=== PATIENT | female | born 2000 | race Caucasian/White ===

== ENCOUNTER 2022-04-29 11:25 | Emergency (ER) | payer OTHER, SELFPAY | END 2022-04-29 13:12 | disposition left against medical advice (07) | PROVIDERS: Emergency Provider Emergency Medicine; PCP Internal Medicine | DX: R10.9 Unspecified abdominal pain (principal) ==

== ENCOUNTER 2022-07-29 14:32 | Emergency (ER) | payer OTHER, SELFPAY ==
--- NOTE | ~2022-07-29 | XR_ITS ---
EXAMINATION: XR CHEST CLINICAL INFORMATION: Chest pain. COMPARISON: None TECHNIQUE: Frontal view of the chest was obtained. FINDINGS: No significant abnormality is noted involving the heart, lungs, mediastinum, bony thorax or soft tissues. XR/XR chest 1V IMPRESSION: No acute cardiopulmonary process.
--- NOTE | 2022-07-29 16:02 | ECG_ITS ---
Test Reason : chest pain Blood Pressure : / mmHG Vent. Rate : 122 BPM Atrial Rate : 122 BPM P-R Int : 166 ms QRS Dur : 080 ms QT Int : 290 ms P-R-T Axes : 043 061 -34 degrees QTc Int : [address] & T wave abnormality, consider inferolateral ischemia Abnormal ECG No previous ECGs available Referred By: Alesha Rodriguez Electronically Signed By:LEN EDWARDS
[2022-07-29 16:03] VITALS: BP 130/79; PULSE 114; RESP 16; TEMP 36.4; O2SAT 99; BMI 32.5
--- NOTE | 2022-07-29 16:03 | ED_ITS ---
HPI - General Adult General Chief complaint: Chest Pain <LAMINE Degroot - Last Filed: 07/29/22 16:08> Stated complaint: CP <LAMINE Degroot - Last Filed: 07/29/22 16:08> Time Seen by Provider: 07/29/22 20:52 <LAMINE Degroot - Last Filed: 07/29/22 16:08> Source: patient <Lavon Rubi MD - Last Filed: 07/30/22 00:48> Mode of arrival: ambulatory <Lavon Rubi MD - Last Filed: 07/30/22 00:48> Limitations: no limitations <Lavon Rubi MD - Last Filed: 07/30/22 00:48> History of Present Illness HPI narrative: Patient been vomiting for last few days with the midchest pain with mild cough pain started after vomiting mostly localized mid chest no abdominal pain no fever or chills urinary complaints on arrival patient noticed to be tachycardic with heart rate 110-120 no syncope dizziness <Lavon Rubi MD - Last Filed: 07/30/22 00:48> Related Data Home medications: Home Medications Medication Instructions Recorded Confirmed aripiprazole 10 mg tablet 10 mg PO DAILY 06/28/21 Previous Rx's Medication Instructions Recorded desogestrel 0.15 mg-ethinyl 1 tab PO DAILY #84 tabs 06/04/22 estradiol 0.03 mg tablet (Apri) famotidine 20 mg tablet (Pepcid) 20 mg PO DAILY #14 tabs 07/29/22 metoprolol tartrate 25 mg tablet 12.5 mg PO BID #30 tabs 07/29/22 ondansetron 4 mg disintegrating 4 mg PO Q6-8H PRN nausea and 07/29/22 tablet vomiting #7 tabs <LAMINE Degroot - Last Filed: 07/29/22 16:08> Allergies/adverse reactions: Allergies Allergy/AdvReac Type Severity Reaction Status Date / Time No Known Allergies Allergy Verified 06/28/21 10:26 <LAMINE Degroot - Last Filed: 07/29/22 16:08> Review of Systems Review of Systems: Yes all other systems are reviewed and are negative <Lavon Rubi MD - Last Filed: 07/30/22 00:48> [facility] Past Medical History Medical History: Medical History Left ovarian cyst Major depression in partial remission Migraine Supraventricular tachycardia by ECG <LAMINE Degroot - Last Filed: 07/29/22 16:08> Surgical History: Surgical History H/O removal of cyst <LAMINE Degroot - Last Filed: 07/29/22 16:08> Family History Family History: Family History Mother Bipolar disorder <LAMINE Degroot - Last Filed: 07/29/22 16:08> Social History Social History: Social History Household Members: Family Household Members Other:: mother and MGF Housing: House Patient Tobacco Use Status: Never used Tobacco e-Cigarette/Vaping Use: Never Used Advance Directives: No Advance Directives Information Provided: No service: No Current occupational status: unemployed <LAMINE Degroot - Last Filed: 07/29/22 16:08> Physical Exam ED Vital Signs: Vital Signs - 24 hr 07/29/22 16:03 07/29/22 21:28 07/29/22 23:16 Temperature 97.5 F Pulse Rate 114 H 110 H 99 Respiratory Rate 16 18 Blood Pressure 130/79 120/85 112/62 Pulse Oximetry 99 99 Oxygen Delivery Method Room Air Room Air 07/29/22 23:16 07/29/22 23:16 07/30/22 00:11 Temperature Pulse Rate 99 105 H 96 Respiratory Rate 18 Blood Pressure 119/67 131/79 108/71 Pulse Oximetry 97 Oxygen Delivery Method Room Air BMI result Body Mass Index 32.5 <LAMINE Degroot - Last Filed: 07/29/22 16:08> Vital Signs - 24 hr 07/29/22 16:03 07/29/22 21:28 07/29/22 23:16 Temperature 97.5 F Pulse Rate 114 H 110 H 99 Respiratory Rate 16 18 Blood Pressure 130/79 120/85 112/62 Pulse Oximetry 99 99 Oxygen Delivery Method Room Air Room Air 07/29/22 23:16 07/29/22 23:16 07/30/22 00:11 Temperature Pulse Rate 99 105 H 96 Respiratory Rate 18 Blood Pressure 119/67 131/79 108/71 Pulse Oximetry 97 Oxygen Delivery Method Room Air BMI result Body Mass Index 32.5 <Lavon Rubi MD - Last Filed: 07/30/22 00:48> Appearance: Alert. Oriented X3. No acute distress. Eyes: PERRLA, No Nystagmus ENT: Pharynx normal. Oral Mucosa moist Neck: Normal inspection. Neck supple. CVS: Normal heart rate and rhythm. Pulses normal. Respiratory: No respiratory distress. Equal air entry bilateral, no wheezing/rales/rhonchi Abdomen: Soft, mild epigastric tenderness. Bowel sounds are present, no mass palpable, no CVA tenderness Skin: Skin warm and dry. Normal skin color. Normal skin turgor. Extremities: No lower extremity edema. No calf tenderness Neuro: Oriented X 3. No motor deficit. <Lavon Rubi MD - Last Filed: 07/30/22 00:48> Course Course Course Narrative: RME - 21 y/o female with history of SVT presenting with sudden onset of left sided chest pain while she was sitting on the cough a few days ago. It has been constant since. She has palpitations. She vomited a few times and has had a mild cough as well. She feels like she had a heart attack a few days ago. Was going to come here but the waiting room was packed that day. Denies cardiac risk factors. Denies anxiety or substance use. EKG and labs ordered. <LAMINE Degroot - Last Filed: 07/29/22 16:08> Medications Administered Discontinued Medications Generic Name Dose Route Start Last Admin Trade Name Freq PRN Reason Stop Dose Admin Al Hydroxide/Mg Hydroxide 30 ml 07/29/22 21:18 07/29/22 21:31 Magnesium Hydrox/Alum Hydrox 30 Ml Oral.Susp PO 07/29/22 21:19 30 ml ONCE ONE Administration Famotidine 20 mg 07/29/22 23:26 07/29/22 23:38 Famotidine/Pf 20 Mg/2 Ml Vial IVPUSH 07/29/22 23:27 Not Given ONCE ONE Sodium Chloride 1,000 mls @ 999 mls/hr 07/29/22 21:37 07/29/22 23:38 Ns IV 07/29/22 22:37 Infused .Q1H1M ONE Infusion Metoprolol Tartrate 5 mg 07/29/22 23:48 07/29/22 23:58 Metoprolol Tartrate 5 Mg/5 Ml Vial IVPUSH 07/29/22 23:49 5 mg ONCE ONE Administration Ondansetron HCl 4 mg 07/29/22 21:18 07/29/22 21:30 Ondansetron Odt 4 Mg Tab.Rapdis TRANSLINGU 07/29/22 21:19 4 mg ONCE ONE Administration <LAMINE Degroot - Last Filed: 07/29/22 16:08> Medications Administered Discontinued Medications Generic Name Dose Route Start Last Admin Trade Name Freq PRN Reason Stop Dose Admin Al Hydroxide/Mg Hydroxide 30 ml 07/29/22 21:18 07/29/22 21:31 Magnesium Hydrox/Alum Hydrox 30 Ml Oral.Susp PO 07/29/22 21:19 30 ml ONCE ONE Administration Famotidine 20 mg 07/29/22 23:26 07/29/22 23:38 Famotidine/Pf 20 Mg/2 Ml Vial IVPUSH 07/29/22 23:27 Not Given ONCE ONE Sodium Chloride 1,000 mls @ 999 mls/hr 07/29/22 21:37 07/29/22 23:38 Ns IV 07/29/22 22:37 Infused .Q1H1M ONE Infusion Metoprolol Tartrate 5 mg 07/29/22 23:48 07/29/22 23:58 Metoprolol Tartrate 5 Mg/5 Ml Vial IVPUSH 07/29/22 23:49 5 mg ONCE ONE Administration Ondansetron HCl 4 mg 07/29/22 21:18 07/29/22 21:30 Ondansetron Odt 4 Mg Tab.Rapdis TRANSLINGU 07/29/22 21:19 4 mg ONCE ONE Administration <Lavon Rubi MD - Last Filed: 07/30/22 00:48> Discharge Plan Discharge Clinical Impression: Gastritis, acute, Vomiting, POTS (postural orthostatic tachycardia syndrome) <LAMINE Degroot - Last Filed: 07/29/22 16:08> Patient Disposition: Home, Self-Care <LAMINE Degroot - Last Filed: 07/29/22 16:08> Instructions: Gastritis (ED), Acute Nausea and Vomiting (ED), Tachycardia (ED) <LAMINE Degroot - Last Filed: 07/29/22 16:08> Additional Instructions: Drink at least 3 L of fluid a day Have excess salt daily Start taking Lopressor 12.5 mg twice daily for heart rate control if it is higher than 110 Medication for gastritis and nausea as prescribed Follow with PCP and roller coaster operator for further evaluation for tachycardia <LAMINE Degroot - Last Filed: 07/29/22 16:08> Prescriptions: New ondansetron 4 mg tablet,disintegrating 4 mg PO Q6-8H PRN (Reason: nausea and vomiting) Qty: 7 0RF famotidine [Pepcid] 20 mg tablet 20 mg PO DAILY Qty: 14 0RF metoprolol tartrate 25 mg tablet 12.5 mg PO BID Qty: 30 0RF No Action desogestrel-ethinyl estradiol [Apri] 0.15-0.03 mg tablet 1 tab PO DAILY Qty: 84 0RF aripiprazole 10 mg tablet 10 mg PO DAILY <LAMINE Degroot - Last Filed: 07/29/22 16:08> Interventions: ED Discharge Assessment Last Done: 07/30/22 00:15 <LAMINE Degroot - Last Filed: 07/29/22 16:08> Discharge Date/Time: 07/30/22 00:24 <LAMINE Degroot - Last Filed: 07/29/22 16:08>
[2022-07-29 18:28] LABS: MANUAL DIFF FLAG NO
[2022-07-29 18:32] LABS: Basophils Percent Auto 0.3 % (0-2); Eosinophils Percent Auto 0.1 % (0-4); Hematocrit 37.5 % (37.0-47.0); Hemoglobin 12.3 g/dl (12.0-16.0); Imm Gran Abs Auto 0.01 X10*3/uL (0.00-0.03); Imm Gran Pct Auto 0.1 % (0.0-0.4); Lymphocytes Absolute Auto 2.2 X10*3/uL (1.2-4.9); Lymphocytes Percent Auto 25.1 % (20-40); Mean Corpuscular HGB Conc 32.8 g/dl (31.0-35.0); Mean Corpuscular Hemoglobin 26.6 pg (27.0-33.0); Mean Corpuscular Volume 81.2 fL (80.0-98.0); Monocytes Absolute Auto 0.7 X10*3/uL (0.1-1.2); Monocytes Percent Auto 7.4 % (2-11); Neutrophils Absolute Auto 5.8 x10*3/uL (2.0-8.3); Platelet Count 371 X10*3/uL (160-400); Red Blood Count 4.62 X10*6/uL (4.20-5.50); Red Cell Distribution Width 14.6 % (11.0-16.0); White Blood Count 8.7 X10*3/uL (4.8-10.8)
[2022-07-29 18:46] LABS: IDNOW Serial# 55D5AD1C; Influenza A Negative (Negative); Influenza B2 Negative (Negative)
[2022-07-29 18:47] LABS: COVID-19 Test Negative (Negative); IDNOW Serial# BCCEAD1C
[2022-07-29 18:48] LABS: Alanine Aminotransferase 10 U/L (0-31); Albumin Level 3.8 g/dL (3.5-5.0); Alkaline Phosphatase 75 U/L (39-117); Anion Gap 15 (12-20); Aspartate Amino Transferase 13 U/L (5-31); Bilirubin Direct < 0.2 mg/dL (0.0-0.5); Bilirubin Total 0.4 mg/dL (0.0-1.0); Blood Urea Nitrogen 9 mg/dL (9-16); Calcium 9.1 mg/dL (8.4-10.2); Carbon Dioxide 21 mmol/L (22-29); Chloride 105 mmol/L (96-108); Creatinine Clr Calc Pharmacy 115.9; Estimated Glomerular Filt Rate > 60; Glucose Random 95 mg/dL (60-115); Magnesium 1.9 mg/dL (1.6-2.6); Potassium 4.1 mmol/L (3.3-5.1); Sodium 137 mmol/L (135-145); Total Protein 6.7 g/dL (6.5-8.0)
[2022-07-29 19:20] LABS: Troponin-I High Sensitivity < 3.5 ng/L (<3.5-17.0)
[2022-07-29 21:28] VITALS: BP 120/85; PULSE 110; RESP 18; O2SAT 99
[2022-07-29] MEDS: Ondansetron ODT 4 MG TAB.RAPDIS TRANSLINGU (21:30)
[2022-07-29] MEDS: Magnesium Hydrox/Alum Hydrox 30 ML ORAL.SUSP PO (21:31)
[2022-07-29] MEDS: 0.9 % Sodium Chloride 1,000 ML 999 ML IV (22:16)
[2022-07-29 23:16] VITALS: BP 112/62; BP 119/67; BP 131/79; PULSE 105; PULSE 99
--- NOTE | 2022-07-29 23:43 | PC.NURSE ---
Patient tachycardic 140's ambulating MD aware 1l normal saline given. Patient seems to be 100-110's with minimal movement Dr. Doll aware.
[2022-07-29] MEDS: Metoprolol Tartrate 5 MG/5 ML VIAL IVPUSH (23:58)
[2022-07-30 00:11] VITALS: BP 108/71; PULSE 96; RESP 18; O2SAT 97
== END 2022-07-30 00:24 | disposition home or self-care (01) ==
PROVIDERS: Physician Assistant; Emergency Provider Internal Medicine; PCP Internal Medicine
DX: K29.70 Gastritis, unspecified, without bleeding (principal); G90.A Postural orthostatic tachycardia syndrome [POTS]; R07.89 Other chest pain; R05.9 Cough, unspecified; R11.10 Vomiting, unspecified; R00.0 Tachycardia, unspecified; Z20.822 Contact with and (suspected) exposure to COVID-19; Z79.899 Other long term (current) drug therapy
CPT/HCPCS: 36415; 71045; 80048; 80076; 83735; 84484; 85025; 87502; 87635; 93005; 96361; 96374; 99284; 99285

== ENCOUNTER 2022-08-01 10:11 | Outpatient (REF) | payer OTHER, SELFPAY ==
[2022-08-01 12:48] LABS: TSH reflex Free T4 0.97 uIU/mL (0.32-4.0); Vitamin D 25-OH Total 8.7 ng/mL (>30)
[2022-08-01 15:16] LABS: Folate 5.5 ng/mL (> or = 4.0); Vitamin B12 185 pg/mL (200-900)
== END 2022-08-01 10:12 | disposition home or self-care (01) ==
LOC: HO.HMGCLDS 10:11
PROVIDERS: PCP Internal Medicine; Visit Provider Internal Medicine
DX: I47.1 Supraventricular tachycardia (principal); I95.1 Orthostatic hypotension
CPT/HCPCS: 36415; 82306; 82607; 82746; 84443

== ENCOUNTER → 2022-09-26 10:03 | Outpatient (BNVA) | payer OTHER, SELFPAY | PROVIDERS: PCP Internal Medicine; Referring Provider Internal Medicine; Visit Provider Internal Medicine | DX: R00.0 Tachycardia, unspecified (principal); I95.1 Orthostatic hypotension | CPT/HCPCS: 99202 ==

== ENCOUNTER 2022-10-15 07:38 | Emergency (ER) | payer OTHER, SELFPAY ==
[2022-10-15 07:41] VITALS: BP 136/72; PULSE 115; RESP 16; TEMP 36.6; O2SAT 98; BMI 30.2
--- NOTE | 2022-10-15 08:50 | ED.GENADULT ---
HPI - General Adult General Chief complaint: Dizziness Stated complaint: nosebleed dizzy high bp Time Seen by Provider: 10/15/22 08:17 Source: patient and family Limitations: no limitations History of Present Illness HPI narrative: Patient with the baseline history of orthostatic hypotension with frequent daily chest pain, presents with an episode of epistaxis. It was self-limited. Mom was concerned because patient had high blood pressure. She has never been hypertensive before. Her systolic at 1 point was 196. No recent health status changes. She just returned from floor to after vacation however. No recent illness. No history of epistaxis prior to this. Related Data Home Medications Medication Instructions Recorded Confirmed aripiprazole 10 mg tablet 10 mg PO DAILY 06/28/21 09/26/22 vilazodone 20 mg tablet (Viibryd) 20 mg PO DAILY 08/01/22 09/26/22 aripiprazole 2 mg tablet 2 mg PO DAILY 09/26/22 09/26/22 Previous Rx's Medication Instructions Recorded desogestrel 0.15 mg-ethinyl 1 tab PO DAILY #84 tabs 06/04/22 estradiol 0.03 mg tablet (Apri) ondansetron 4 mg disintegrating 4 mg PO Q6-8H PRN nausea and 07/29/22 tablet vomiting #7 tabs Allergies Allergy/AdvReac Type Severity Reaction Status Date / Time metoprolol AdvReac Diarrhea Verified 09/26/22 10:26 Review of Systems Constitutional: Comments: No recent acute illness, but has a history of orthostatic hypotension ENT: Comments: Epistaxis as mentioned. Left-sided. Resolved with pressure Cardiovascular: Comments: No chest pain or palpitations at the moment Respiratory: Comments: No dyspnea Gastrointestinal: Comments: No nausea vomiting diarrhea PMFSH Past Medical History Medical History Epigastric abdominal pain Left ovarian cyst Major depression in partial remission Migraine Orthostatic hypotension Supraventricular tachycardia by ECG Surgical History H/O removal of cyst Family History Family History Mother Bipolar disorder Mental health disorder Social History Social History Household Members: Family Household Members Other:: mother and MGF Housing: House Patient Tobacco Use Status: Never used Tobacco e-Cigarette/Vaping Use: Never Used Advance Directives: No Advance Directives Information Provided: No service: No Current occupational status: unemployed Cognitive needs: No Hearing needs: No Vision needs: No Physical Exam ED Vital Signs: Vital Signs - 24 hr 10/15/22 07:41 Temperature 97.8 F Pulse Rate 115 H Respiratory Rate 16 Blood Pressure 136/72 Pulse Oximetry 98 Oxygen Delivery Method Room Air BMI result Body Mass Index 30.2 Const Other: Awake alert. No acute distress. Mildly anxious. Manual blood pressure checked by myself is 110/78. HENMT Other: Right ear normal. Left [place] with mild excoriation left medial septum, anterior aspect. No active bleeding. Resp Other: Clear and equal bilaterally Cardio Other: Mildly tachycardic without murmurs rubs or gallops GI Other: Soft nontender nondistended Skin Other: Warm pink and dry without rash Neuro Other: No focal weakness Medical Decision Making Medical Decision Making MDM Narrative: Patient with epistaxis in the setting of transient hypertensive episode. Patient states she was anxious secondary to epistaxis and likely back caused her hypertension is opposed to hypertension causing the epistaxis. Her blood pressure is back to its baseline at the moment. Given this, as well as imminent follow-up with Cardiology, no further intervention needed at the moment. Instructed for control of epistaxis should reoccur. Antibiotic ointment to left near twice daily for the next 5 days Discharge Plan Discharge Clinical Impression: Acute anterior epistaxis, Benign reactive hypertension Patient Disposition: Home, Self-Care Instructions: Nosebleed (ED) Additional Instructions: Follow-up with your flame burner as scheduled. Use antibiotic ointment to your left nostril twice daily for the next 5 days. Pinch her nose with direct pressure for minimum of 7 minutes if bleeding recurs. Return if unable to stop bleeding. Prescriptions: No Action desogestrel-ethinyl estradiol [Apri] 0.15-0.03 mg tablet 1 tab PO DAILY Qty: 84 0RF ondansetron 4 mg tablet,disintegrating 4 mg PO Q6-8H PRN (Reason: nausea and vomiting) Qty: 7 0RF aripiprazole 10 mg tablet 10 mg PO DAILY vilazodone [Viibryd] 20 mg tablet 20 mg PO DAILY aripiprazole 2 mg tablet 2 mg PO DAILY
== END 2022-10-15 09:14 | disposition home or self-care (01) ==
PROVIDERS: Emergency Provider Emergency Medicine; PCP Internal Medicine
DX: R04.0 Epistaxis (principal); I10 Essential (primary) hypertension; R00.0 Tachycardia, unspecified; Z79.899 Other long term (current) drug therapy
CPT/HCPCS: 99282; 99283

== ENCOUNTER → 2022-11-06 14:01 | Outpatient (REF) | payer OTHER, SELFPAY ==
--- NOTE | 2022-11-06 14:04 | CA_ITS ---
Transthoracic Echocardiogram Patient (Last, First, Middle): Preeti Adame, Gender: Female Date of : 2000 Age: 22 Procedure Date: 11/06/2022 Procedure Type: Transthoracic Echocardiogram Location: OP Height: 152.4 cm Weight: 72.58 kg BSA: 1.70 m2 Heart Rate: 95 bpm BP: 110 / 80 mmHg [employer] Reconnaissance Vehicle Crewman: OCTAVIO Montesinos MD: Denzel Persaud MD Administrative Operations Coordinator: Rahat Brown MD Symptoms: R00.0 - Tachycardia, unspecified Study Quality: Fair ECG Rhythm: Sinus Conclusions: - Essentially normal study Findings Left Ventricle Normal left ventricular size, thickness, and systolic function. The visually estimated ejection fraction is between 55-60%. Regional wall motion abnormalities can not be excluded due to suboptimal endocardial definition. Spectral Doppler is indicative of a normal filling pattern. Right Ventricle Normal right ventricular cavity size and systolic function. Atria Both atria are normal in size. There is no evidence of interatrial shunt. Aortic Valve The aortic valve structure and function is likely normal. There is no aortic valve stenosis. There is no aortic valve regurgitation. Mitral Valve Normal mitral valve structure and function. There is trace mitral valve regurgitation. There is no mitral valve stenosis. Pulmonic Valve The pulmonic valve is likely normal. Tricuspid Valve Normal tricuspid valve structure. There is trace tricuspid valve regurgitation. The right ventricular systolic pressure is normal. The right ventricular systolic pressure is 15 mmHg. Normal right atrial pressure. There is no evidence of pulmonary hypertension. Great Vessels All visible segments of the aorta are normal in size. The pulmonary artery was not well visualized. Venous The inferior vena cava is normal in size and collapses greater than 50% with inspiration. Pericardium/Pleural There is no evidence of pericardial effusion. Prior Study Comparison No prior study available for comparison. Recommendations, Care & Conclusions Recommend contrast in the future to improve endocardial definition. Measurements 2D Linear Measurements IVSd: 0.66 0.6-0.9/0.6-1.0 cm LVIDd: 4.24 3.9-5.3/4.2-5.9 cm LVIDd Index: 2.49 2.4-3.2/2.2-3.1 cm/m2 LVIDs: 2.37 2.0-3.6 cm LVPWd: 0.75 0.7-1.1 cm LA Diam: 2.60 2.7-3.8/3.0-4.0 cm LAIDs Index: 1.53 1.5-2.3 cm/m2 LV Mass: 108.00 67-162/88-224 g LV Mass Index: 63.53 43-95/49-115 g/m2 LVOT Diam: 1.90 3.0+(-)1.3 cm 2D Systolic Function EF 4C: 56.90 >55% EF 2C: 51.70 >55% EF BiP: 58.10 >55% Mitral Valve MV Pk E: 0.93 MV PK A: 0.80 MV Decel Time: 231.00 E/A: 1.20 E'Lateral: 18.80 E'Medial: 10.70 E/E' Med: 8.70 E/E' Lat: 4.90 PHT: 68.00 MVA PHT: 3.24 Decel [place]: 4.02 Aortic Valve AoV Pk Khang: 1.28 AoV Mn Khang: 0.93 AoV VTI: 0.23 AoV Pk Grad: 7.00 Aov Mn Grad: 4.00 JOHN Cont.VTI: 2.43 LVOT LVOT Pk Khang: 1.13 LVOT Mn Khang: 0.77 LVOT VTI: 0.20 LVOT Pk Grad: 5.00 LVOT Mn Grad: 3.00 LVOT Diam: 1.90 LVOT Area: 2.84 Diastolic Function MV Pk E: 0.93 MV Pk A: 0.80 E/A: 1.20 E'Medial: 10.70 E/E' Med: 8.70 E' Laterial: 18.80 E/E' Lat: 4.90 Right Ventricle TAPSE (mm): 18.20 TVS' Khang: 12.30 Tricuspid Valve TR Pk Khang: 1.73 TR Pk Grad: 12.00 RA Press: 3.00 RVSP: 15.00 Great Vessels Aorta Sinus of Valsalva: 2.80 2.0-3.5 cm Ao Asc: 2.50 2.1-3.4 cm Pulmonary Valve PV Pk Khang: 1.10 Peak PV Grad: 5.00 Updated in Other Vendor System with Status of Final Rahat Brown MD electronically signed on 11/07/2022 9:25:02 AM with status of Final
--- NOTE | 2022-11-06 14:04 | HM_ITS ---
Conclusion: 1. Patient was monitored for total period of 3 days 2. Baseline was normal sinus rhythm with average heart rate of 103 beats per minute 3. Frequent sinus tachycardia with 46.6% of time heart rate greater than 100 beats per minute 4. Rare PACs noted 5. No significant pauses noted 6. Patient marked 1 event that correlated with sinus tachycardia without reported symptoms MTDD
== END ==
LOC: HO.CARD 14:01
PROVIDERS: Visit Provider Internal Medicine
DX: R00.0 Tachycardia, unspecified (principal); R00.2 Palpitations; I95.1 Orthostatic hypotension
CPT/HCPCS: 93242; 93306

== ENCOUNTER 2022-11-21 09:15 | Emergency (ER) | payer OTHER, SELFPAY ==
--- NOTE | ~2022-11-21 | XR_ITS ---
EXAMINATION: XR CHEST CLINICAL INFORMATION: Shortness of breath. COMPARISON: 07/29/2022 chest radiographs. TECHNIQUE: Frontal view of the chest was obtained. FINDINGS: No significant abnormality is noted involving the heart, lungs, mediastinum, bony thorax or soft tissues. XR/XR chest 1V IMPRESSION: No acute cardiopulmonary process.
[2022-11-21 09:20] VITALS: BP 120/80; PULSE 106; RESP 18; TEMP 37; O2SAT 100; BMI 31.2
--- NOTE | 2022-11-21 09:50 | ED.GENADULT ---
HPI - General Adult General Chief complaint: Upper Respiratory Symptoms Stated complaint: upper respitory infection?/ allergy reaction Time Seen by Provider: 11/21/22 09:50 Source: patient Mode of arrival: ambulatory Limitations: no limitations History of Present Illness HPI narrative: Patient is a 22 year old assigned female at with a history of MDD presenting to the emergency department today with nausea and URI. Patient states that prior to taking the ABX for her URI she was nauseous and the ABX made it much worse. Patient states that she has had a productive cough for 1 week. Patient denies any dizziness, lightheadedness, abdominal pain, fever, chills, blurry vision, double vision, loss of vision, chest pain, difficulty breathing, shortness of breath, back pain, night sweats, pain with urination, increased urinary frequency, increased urinary urgency, blood in her urine or stool, syncope or a near syncopal episode, recent trauma or falls, bowel incontinence, bladder incontinence, bowel retention, bladder retention, or any other complaints at this time. Onset (ago): week(s) (1) Severity: mild Severity scale (1-10): 2 Relieving factors: none Exacerbating factors: none Associated symptoms: cough and nausea/vomiting Treatments prior to arrival: other (Azithromycin) Related Data Home Medications Medication Instructions Recorded Confirmed aripiprazole 10 mg tablet 10 mg PO DAILY 06/28/21 11/20/22 vilazodone 20 mg tablet (Viibryd) 20 mg PO DAILY 08/01/22 11/20/22 aripiprazole 2 mg tablet 2 mg PO DAILY 09/26/22 11/20/22 Previous Rx's Medication Instructions Recorded desogestrel 0.15 mg-ethinyl 1 tab PO DAILY #84 tabs 10/19/22 estradiol 0.03 mg tablet (Apri) doxycycline hyclate 100 mg tablet 100 mg PO BID 7 days #14 tabs 11/21/22 ondansetron 4 mg disintegrating 4 mg PO Q8H 3 days #9 tabs 11/21/22 tablet prednisone 20 mg tablet 20 mg PO DAILY 7 days #7 tabs 11/21/22 Allergies Allergy/AdvReac Type Severity Reaction Status Date / Time metoprolol AdvReac Diarrhea Verified 11/20/22 10:05 Review of Systems Constitutional: Constitutional: Reports no additional constitutional complaints, Denies chills, Denies fever(s) and Denies night sweats Eyes: Eyes: Reports no additional eye complaints, Denies blurry vision, Denies change in vision, Denies diplopia, Denies eye discharge, Denies loss of vision and Denies eye pain ENT: Denies dizziness Cardiovascular: Cardiovascular: Reports no additional cardiovascular complaints, Denies chest pain, Denies lightheadedness, Denies Loss of Consciousness and Denies dyspnea Respiratory: Respiratory: Reports no additional respiratory complaints, Reports cough and Denies dyspnea Gastrointestinal: Gastrointestinal: Reports no additional gastrointestinal complaints, Denies abdominal pain, Denies melena, Denies hematochezia, Denies change in bowel habits, Denies change in stool character and Reports nausea Genitourinary: Genitourinary: Denies hematuria, Denies urinary frequency, Denies dysuria, Denies urinary incontinence, Denies urinary hesitancy and Denies urinary urgency Musculoskeletal: Musculoskeletal: Reports no additional musculoskeletal complaints, Denies numbness and Denies tingling Neurologic: Denies dizziness, Denies loss of vision, Denies numbness and Denies tingling Psychiatric: Psychiatric: Reports no additional psychiatric complaints Endocrine: Endocrine: Reports no additional endocrine complaints Hematologic/Lymphatic: Hematologic/Lymphatic: Reports no additional hematologic/lymphatic complaints Allergic/Immunologic: Allergic/Immunologic: Reports no additional allergic/immunologic complaints [facility] Past Medical History Attestation statement: The following information was validated with the patient. Source: old records reviewed and nursing notes reviewed Medical History Epigastric abdominal pain Hx of ovarian cyst Left ovarian cyst Major depression in partial remission Migraine Orthostatic hypotension Supraventricular tachycardia by ECG Uses control Surgical History H/O removal of cyst Family History Family History Mother Bipolar disorder Mental health disorder Social History Social History Household Members: Family Household Members Other:: mother and MGF Housing: House Patient Tobacco Use Status: Never used Tobacco e-Cigarette/Vaping Use: Never Used Advance Directives: No Advance Directives Information Provided: No service: No Current occupational status: unemployed Cognitive needs: No Hearing needs: No Vision needs: No Physical Exam ED Vital Signs: Vital Signs - 24 hr 11/21/22 09:20 Temperature 98.6 F Pulse Rate 106 H Respiratory Rate 18 Blood Pressure 120/80 Pulse Oximetry 100 Oxygen Delivery Method Room Air BMI result Body Mass Index 31.2 Const General: cooperative, no acute distress, alert and awake Nutritional Appearance: well nourished Orientation/consciousness: patient oriented x3 Limitations: no limitations HENMT Head: Yes normal to inspection and Yes atraumatic Ears: hearing grossly normal bilaterally and external ears normal General nose exam: Normal external nose present, no nasal discharge noted and no epistaxis Face and sinus: Yes normal facial exam, No abrasion and No laceration Mouth: Normal oral and palatal mucosa present, no drooling and no muffled voice Eyes General: appearance normal, both eyes and all related structures Periorbital: periorbital findings normal Eyelids: Yes eyelids normal Conjunctivae: conjunctivae normal Pupils: Equal, round and reactive pupils present EOM: EOMs intact bilaterally Neck Neck: Yes normal visual inspection, Yes full ROM and Yes no lymphadenopathy Chest Chest palpation & inspection: normal inspection of the chest Resp Effort & Inspection: normal respiratory effort and able to speak in complete sentences Auscultation: clear to auscultation bilaterally Cardio Rate: regular rate Rhythm: regular rhythm GI Inspection: Yes normal to inspection Palpation (GI): Soft to palpation, not firm, nontender and no guarding Neuro General: patient oriented x3 and moves all extremities Cranial nerves: Yes Equal, round and reactive pupils present Cognition (Neuro): normal cognition Motor exam (neuro): 5/5 motor strength present throughout Sensory Exam: Normal double simultaneous stimulation for sensation Coordination: telhaf-je-dhuh test normal Extrem General: Yes normal to inspection, Yes full ROM and Yes capillary refill normal Psych Appearance: grossly normal Mental Status: mental status grossly normal Affect: normal affect Attitude: cooperative Thought process: Normal thought process present Thought content: Normal thought content present Insight: Good insight present (Psych) Medical Decision Making Medical Decision Making MDM Narrative: Patient is a 22 year old assigned female at with a history of MDD presenting to the emergency department today with a productive cough and nausea. Patient's physical exam was unremarkable. Patient's chest x-ray showed no acute process. Patient's COVID/RSV/Influenza swab was negative. I explained my physical exam findings as well as all test results to the patient. I answered all questions asked by the patient. I explained to the patient that I would be sending her home on a different antibiotic and an anti-emetic medication. I stressed the importance of stopping her Azithromycin as there is risk of QT prolongation in conjunction with Zofran. I stressed the importance of the patient taking her medication as prescribed. I stressed the importance of the patient following up with her primary care provider. I stressed the importance of the patient returning to the emergency department immediately if her symptoms were to worsen or if she were to develop any dizziness, shortness of breath, difficulty breathing, chest pain, blurry vision, loss of vision, nausea, vomiting, abdominal pain, fever, chills, back pain, or any other complaints. Patient verbalized agreement and understanding with this treatment plan and discharge. Differential Diagnosis Differential Diagnoses: The differential diagnosis associated with the presentation includes URI, nausea Lab Data MDM Lab Attestation statement: I reviewed the patient's lab results. Labs: Lab Results 11/21/22 Range/Units 09:34 Influenza Type A (PCR) NEGATIVE (Negative) Influenza Type B (PCR) NEGATIVE (Negative) RSV RNA Qual (PCR) NEGATIVE (Negative) SARS-CoV-2 RNA (RT-PCR) NEGATIVE (Negative) Independent Interpretation I performed an independent interpretation of an: Plain X-Ray Interpretation: My interpretation is in agreement with the radiologist's impression of this imaging study. EXAMINATION: XR CHEST CLINICAL INFORMATION: Shortness of breath. COMPARISON: 07/29/2022 chest radiographs. TECHNIQUE: Frontal view of the chest was obtained. FINDINGS: No significant abnormality is noted involving the heart, lungs, mediastinum, bony thorax or soft tissues. XR/XR chest 1V IMPRESSION: No acute cardiopulmonary process. Dictated By: Chase Jane MD Signed By: Electronically signed by Chsae Jane MD 11/21/22 1004 Discharge Plan Discharge Clinical Impression: Upper respiratory infection Patient Disposition: Home, Self-Care Instructions: Upper Respiratory Infection (DC) Additional Instructions: Follow up with your primary care provider. Return to the emergency department immediately if your symptoms worsen or if you develop any dizziness, shortness of breath, difficulty breathing, chest pain, blurry vision, loss of vision, nausea, vomiting, abdominal pain, fever, chills, back pain, or any other complaints. Prescriptions: New prednisone 20 mg tablet 20 mg PO DAILY 7 Days Qty: 7 0RF ondansetron 4 mg tablet,disintegrating 4 mg PO Q8H 3 Days Qty: 9 0RF doxycycline hyclate 100 mg tablet 100 mg PO BID 7 Days Qty: 14 0RF Discontinued azithromycin 250 mg tablet See Rx Instructions PO .COMPLEX Qty: 6 0RF Rx Instructions: take 500 mg today (day 1), then 250 mg for 4 days (days 2-5) PO No Action aripiprazole 10 mg tablet 10 mg PO DAILY vilazodone [Viibryd] 20 mg tablet 20 mg PO DAILY desogestrel-ethinyl estradiol [Apri] 0.15-0.03 mg tablet 1 tab PO DAILY Qty: 84 0RF aripiprazole 2 mg tablet 2 mg PO DAILY Referrals: Ruma Alvarado MD [Primary Care Provider] - Interventions: ED Discharge Assessment Last Done: 11/21/22 10:53 Discharge Date/Time: 11/21/22 10:55 Print Language: Colombian
[2022-11-21 10:16] LABS: Influenza A PCR NEGATIVE (Negative); Influenza B PCR NEGATIVE (Negative); Resp Syncy Virus RNA Qual PCR NEGATIVE (Negative); SARS COV2 PCR INHOUSE NEGATIVE (Negative)
== END 2022-11-21 10:55 | disposition home or self-care (01) ==
PROVIDERS: Emergency Provider Emergency Medicine Emergency Medical Services; PCP Internal Medicine
DX: J06.9 Acute upper respiratory infection, unspecified (principal); R11.2 Nausea with vomiting, unspecified; Z20.822 Contact with and (suspected) exposure to COVID-19; Z20.828 Contact with and (suspected) exposure to other viral communicable diseases
CPT/HCPCS: 0241U; 71045; 99283

== ENCOUNTER → 2022-11-27 10:52 | Outpatient (BNVA) | payer OTHER, SELFPAY | PROVIDERS: PCP Internal Medicine; Referring Provider Internal Medicine; Visit Provider Internal Medicine | DX: I95.1 Orthostatic hypotension (principal); R00.0 Tachycardia, unspecified | CPT/HCPCS: 99212 ==

== ENCOUNTER 2022-12-08 19:02 | Emergency (ER) | payer OTHER, SELFPAY ==
[2022-12-08 19:09] VITALS: BP 120/81; PULSE 123; RESP 18; TEMP 36.1; O2SAT 98; BMI 31.6
--- NOTE | 2022-12-08 19:10 | ED.GENADULT ---
HPI - General Adult General Chief complaint: Nausea/Vomiting/Diarrhea <Manjit Harris - Last Filed: 12/08/22 19:12> Stated complaint: Vomiting blood <Manjit Harris - Last Filed: 12/08/22 19:12> Time Seen by Provider: 12/08/22 19:47 <Manjit Harris - Last Filed: 12/08/22 19:12> Source: patient <LAMINE Griffin - Last Filed: 12/09/22 17:09> Mode of arrival: ambulatory <LAMINE Griffin - Last Filed: 12/09/22 17:09> Limitations: no limitations <LAMINE Griffin Last Filed: 12/09/22 17:09> History of Present Illness HPI narrative: 22-year-old female presents to ED for nausea and vomiting with acid burning sensation in the abdomen. Patient's history of GERD. Patient also states slight headache. patient states presently she feels better. patient denies any chest pain, shortness of breath, leg swelling, calf pain, or coughing up blood. patient small specs of blood when vomitting. patient denies any blood in stool. <LAMINE Griffin - Last Filed: 12/09/22 17:09> Related Data Home medications: Home Medications Medication Instructions Recorded Confirmed aripiprazole 10 mg tablet 10 mg PO DAILY 06/28/21 11/27/22 vilazodone 20 mg tablet (Viibryd) 20 mg PO DAILY 08/01/22 11/27/22 aripiprazole 2 mg tablet 2 mg PO DAILY 09/26/22 11/27/22 Previous Rx's Medication Instructions Recorded desogestrel 0.15 mg-ethinyl 1 tab PO DAILY #84 tabs 10/19/22 estradiol 0.03 mg tablet (Apri) doxycycline hyclate 100 mg tablet 100 mg PO BID 7 days #14 tabs 11/21/22 prednisone 20 mg tablet 20 mg PO DAILY 7 days #7 tabs 11/21/22 cefuroxime axetil 250 mg tablet 250 mg PO BID 7 days #14 tabs 12/08/22 famotidine 20 mg tablet (Pepcid) 20 mg PO BID 10 days #20 tabs 12/08/22 <Manjit Harris - Last Filed: 12/08/22 19:12> Allergies/adverse reactions: Allergies Allergy/AdvReac Type Severity Reaction Status Date / Time metoprolol AdvReac Diarrhea Verified 12/08/22 19:09 <Manjit Harris - Last Filed: 12/08/22 19:12> Review of Systems Review of Systems: Epigastric pain, acid burning <LAMINE Griffin - Last Filed: 12/09/22 17:09> Yes all other systems are reviewed and are negative <LAMINE Griffin - Last Filed: 12/09/22 17:09> [facility] Past Medical History Medical History: Medical History (Updated 12/09/22 @ 00:12 by Alen Gordon) Epigastric abdominal pain Hx of ovarian cyst Left ovarian cyst Major depression in partial remission Migraine Orthostatic hypotension Supraventricular tachycardia by ECG Uses control Vitamin B12 deficiency Vitamin D deficiency <Manjit Harris - Last Filed: 12/08/22 19:12> Surgical History: Surgical History H/O removal of cyst <Manjit Harris - Last Filed: 12/08/22 19:12> Family History Family History: Family History Mother Bipolar disorder Mental health disorder <Manjit Harris - Last Filed: 12/08/22 19:12> Social History Social History: Social History Household Members: Family Household Members Other:: mother and MGF Housing: House Patient Tobacco Use Status: Never used Tobacco e-Cigarette/Vaping Use: Never Used Advance Directives: No Advance Directives Information Provided: No service: No Current occupational status: unemployed Cognitive needs: No Hearing needs: No Vision needs: No <Manjit Harris - Last Filed: 12/08/22 19:12> Physical Exam ED Vital Signs: Vital Signs - 24 hr 12/08/22 19:09 12/08/22 20:00 12/08/22 22:00 Temperature 97.0 F 98.3 F 98.2 F Pulse Rate 123 H 113 H 104 H Respiratory Rate 18 16 14 Blood Pressure 120/81 126/87 113/77 Pulse Oximetry 98 99 98 Oxygen Delivery Method Room Air Room Air BMI result Body Mass Index 31.6 <Manjit Harris - Last Filed: 12/08/22 19:12> Vital Signs - 24 hr 12/08/22 19:09 12/08/22 20:00 12/08/22 22:00 Temperature 97.0 F 98.3 F 98.2 F Pulse Rate 123 H 113 H 104 H Respiratory Rate 18 16 14 Blood Pressure 120/81 126/87 113/77 Pulse Oximetry 98 99 98 Oxygen Delivery Method Room Air Room Air BMI result Body Mass Index 31.6 <LAMINE Griffin Last Filed: 12/09/22 17:09> Const General: cooperative, healthy appearing, comfortable, no acute distress, well developed, alert, awake and Physically active <LAMINE Griffin Last Filed: 12/09/22 17:09> Orientation/consciousness: oriented to person, oriented to place, oriented to time and patient oriented x3 <LAMINE Griffin Last Filed: 12/09/22 17:09> HENMT Head: Yes normal to inspection, Yes No palpable skull fracture present, Yes normocephalic, Yes atraumatic and No abrasion <LAMINE Griffin Last Filed: 12/09/22 17:09> Eyes General: appearance normal, both eyes and all related structures <LAMINE Griffin Last Filed: 12/09/22 17:09> Neck Neck: Yes normal visual inspection, Yes full ROM, Yes no lymphadenopathy, Yes no meningeal signs, Yes trachea midline, Yes supple, No anterior neck swelling and No tender <LAMINE Griffin Last Filed: 12/09/22 17:09> Chest Chest palpation & inspection: normal inspection of the chest and normal palpation of entire chest wall <LAMINE Griffin Last Filed: 12/09/22 17:09> Resp Effort & Inspection: normal respiratory effort and able to speak in complete sentences <LAMINE Griffin Last Filed: 12/09/22 17:09> Auscultation: clear to auscultation bilaterally <LAMINE Griffin Last Filed: 12/09/22 17:09> Cardio Jugular venous distension: no JVD <LAMINE Griffin Last Filed: 12/09/22 17:09> Heart sounds: S1 normal heart sound present and S2 normal heart sound present <LAMINE Griffin - Last Filed: 12/09/22 17:09> GI Inspection: Yes normal to inspection and No abdominal wall ecchymosis <LAMINE Griffin Last Filed: 12/09/22 17:09> Palpation (GI): Soft to palpation, not firm, nontender, no guarding and not rigid <LAMINE Griffin - Last Filed: 12/09/22 17:09> General: No CVA tenderness and Yes no CVA tenderness <LAMINE Griffin Last Filed: 12/09/22 17:09> Back/Spine/Pelvis Back: no CVA tenderness, No CVA tenderness and No back tenderness <LAMINE Griffin Last Filed: 12/09/22 17:09> Skin General skin exam: no rashes or lesions noted and elasticity normal <LAMINE Griffin - Last Filed: 12/09/22 17:09> Neuro General: oriented to person, oriented to place, oriented to time, patient oriented x3, gait normal, tone normal, moves all extremities, Normal light touch and pain sensation, no meningeal signs, no focal motor deficits, CN's II-XI intact bilaterally and normal sensation to monofilament <LAMINE Griffin - Last Filed: 12/09/22 17:09> Extrem General: Yes normal to inspection and Yes full ROM <LAMINE Griffin - Last Filed: 12/09/22 17:09> Psych Appearance: grossly normal, well kempt and not disheveled <LAMINE Griffin Last Filed: 12/09/22 17:09> Course Course Course Narrative: 22 year old female presents for evaluation of vomiting that started today. She reports vomiting 3 times and feels that there was blood in the vomitus. Plan for labs and a test <Manjit Harris - Last Filed: 12/08/22 19:12> Reevaluation(s) Reevaluation #1: Patient EKG due to tachycardia and history of SVT. EKG normal sinus. Troponin negative. Symptoms resolved after receiving Pepcid fluids and Zofran. UA shows UTI. Patient will be discharged with antibiotics. Negative for flank tenderness to indicate kidney stones or pylonephritis. <LAMINE Griffin - Last Filed: 12/09/22 17:09> Time: 22:28 <LAMINE Griffin - Last Filed: 12/09/22 17:09> Medications Administered Discontinued Medications Generic Name Dose Route Start Last Admin Trade Name Freq PRN Reason Stop Dose Admin Famotidine 20 mg 12/08/22 20:35 12/08/22 20:51 Famotidine/Pf 20 Mg/2 Ml Vial IVPUSH 12/08/22 20:36 20 mg ONCE ONE Administration Sodium Chloride 1,000 mls @ 999 mls/hr 12/08/22 20:44 12/08/22 22:20 Ns IV 12/08/22 21:44 Infused .Q1H1M STA Infusion Ondansetron HCl 4 mg 12/08/22 20:35 12/08/22 20:51 Ondansetron Hcl 4 Mg/2 Ml Vial IVPUSH 12/08/22 20:36 4 mg ONCE ONE Administration <Manjit Harris - Last Filed: 12/08/22 19:12> Medications Administered Discontinued Medications Generic Name Dose Route Start Last Admin Trade Name Freq PRN Reason Stop Dose Admin Famotidine 20 mg 12/08/22 20:35 12/08/22 20:51 Famotidine/Pf 20 Mg/2 Ml Vial IVPUSH 12/08/22 20:36 20 mg ONCE ONE Administration Sodium Chloride 1,000 mls @ 999 mls/hr 12/08/22 20:44 12/08/22 22:20 Ns IV 12/08/22 21:44 Infused .Q1H1M STA Infusion Ondansetron HCl 4 mg 12/08/22 20:35 12/08/22 20:51 Ondansetron Hcl 4 Mg/2 Ml Vial IVPUSH 12/08/22 20:36 4 mg ONCE ONE Administration <LAMINE Griffin - Last Filed: 12/09/22 17:09> Medical Decision Making Medical Decision Making MDM Narrative: 22-year-old female presents to ED for epigastric pain and vomiting. History of GERD SVT. Patient troponin negative. EKG normal sinus. UA shows UTI. Will be discharged with antibiotics. Patient received Pepcid and fluids and feels better. Not suspecting GI bleed, perforated abdomen, cholecystitis, pancreatitis, or appendicitis. Not suspecting any kidney stones or pyelonephritis <LAMINE Griffin - Last Filed: 12/09/22 17:09> Differential Diagnosis Differential Diagnoses: The differential diagnosis associated with the presentation includes (UTI, gastritis, pancreatitis, cholecystitis, appendicitis, colitis) <LAMINE Griffin - Last Filed: 12/09/22 17:09> Admission/Observation Consideration of admission/observation: Escalation of care including admission/observation considered <LAMINE Griffin - Last Filed: 12/09/22 17:09> Lab Data MDM Lab Attestation statement: I reviewed the patient's lab results. <LAMINE Griffin - Last Filed: 12/09/22 17:09> Result Diagrams: 12/08/22 19:34 12/08/22 19:34 <Manjit Harris - Last Filed: 12/08/22 19:12> Labs: Lab Results 12/08/22 12/08/22 12/08/22 Range/Units 19:34 19:34 19:41 WBC 7.5 (4.8-10.8) X10*3/uL RBC 4.59 (4.20-5.50) X10*6/uL Hgb 12.1 (12.0-16.0) g/dl Hct 37.3 (37.0-47.0) % MCV 81.3 (80.0-98.0) fL MCH 26.4 L (27.0-33.0) pg MCHC 32.4 (31.0-35.0) g/dl RDW 15.9 (11.0-16.0) % Plt Count 396 (160-400) X10*3/uL MPV 9.7 (9.4-12.3) fL Immature Gran % (Auto) 0.3 (0.0-0.4) % Neut % (Auto) 73.8 H (45-73) % Lymph % (Auto) 18.0 L (20-40) % [place] % (Auto) 7.1 (2-11) % Eos % (Auto) 0.4 (0-4) % Baso % (Auto) 0.4 (0-2) % Lymph # (Auto) 1.4 (1.2-4.9) X10*3/uL [place] # (Auto) 0.5 (0.1-1.2) X10*3/uL Eos # (Auto) 0.0 (0.0-0.4) X10*3/uL Baso # (Auto) 0.0 (0.0-0.2) X10*3/uL Abs Immat Gran (auto) 0.02 (0.00-0.03) X10*3/uL Absolute Neuts (auto) 5.6 (2.0-8.3) x10*3/uL Absolute Nucleated RBC 0.000 (0.0-0.012) X10*3/uL Nucleated RBC % (auto) 0.0 (0.0-0.2) /100WBC Sodium 140 (135-145) mmol/L Potassium 4.2 (3.3-5.1) mmol/L Chloride 108 (96-108) mmol/L Carbon Dioxide 23 (22-29) mmol/L Anion Gap 13 (12-20) BUN 6 L (9-16) mg/dL Creatinine 0.67 (0.5-1.4) mg/dL Estim Creat Clear Calc 119.9 Estimated GFR > 60 Random Glucose 95 (60-115) mg/dL Calcium 9.2 (8.4-10.2) mg/dL Total Bilirubin 0.5 (0.0-1.0) mg/dL AST 17 (5-31) U/L ALT 22 (0-31) U/L Alkaline Phosphatase 71 (39-117) U/L Troponin I High Sens (<3.5-17.0) ng/L Total Protein 6.7 (6.5-8.0) g/dL Albumin 3.9 (3.5-5.0) g/dL Lipase 8 (8-78) U/L Urine Color Urine Appearance Urine pH (5.0-9.0) Ur Specific [place] (1.005-1.025) Urine Protein (Neg-Trace) mg/dL Urine Glucose (UA) (Negative) mg/dL Urine Ketones (Negative) mg/dL Urine Blood (Negative) Urine Nitrite (Negative) Ur Leukocyte Esterase (Negative) Urine RBC (0-2) /HPF Urine WBC (0-5) /HPF Ur Squamous Epith Cells (0-2) /HPF Urine Bacteria (None Seen) Hyaline Casts (0-2) /LPF Urine Test NEGATIVE (NEGATIVE) 12/08/22 12/08/22 Range/Units 19:41 20:50 WBC (4.8-10.8) X10*3/uL RBC (4.20-5.50) X10*6/uL Hgb (12.0-16.0) g/dl Hct (37.0-47.0) % MCV (80.0-98.0) fL MCH (27.0-33.0) pg MCHC (31.0-35.0) g/dl RDW (11.0-16.0) % Plt Count (160-400) X10*3/uL MPV (9.4-12.3) fL Immature Gran % (Auto) (0.0-0.4) % Neut % (Auto) (45-73) % Lymph % (Auto) (20-40) % [place] % (Auto) (2-11) % Eos % (Auto) (0-4) % Baso % (Auto) (0-2) % Lymph # (Auto) (1.2-4.9) X10*3/uL [place] # (Auto) (0.1-1.2) X10*3/uL Eos # (Auto) (0.0-0.4) X10*3/uL Baso # (Auto) (0.0-0.2) X10*3/uL Abs Immat Gran (auto) (0.00-0.03) X10*3/uL Absolute Neuts (auto) (2.0-8.3) x10*3/uL Absolute Nucleated RBC (0.0-0.012) X10*3/uL Nucleated RBC % (auto) (0.0-0.2) /100WBC Sodium (135-145) mmol/L Potassium (3.3-5.1) mmol/L Chloride (96-108) mmol/L Carbon Dioxide (22-29) mmol/L Anion Gap (12-20) BUN (9-16) mg/dL Creatinine (0.5-1.4) mg/dL Estim Creat Clear Calc Estimated GFR Random Glucose (60-115) mg/dL Calcium (8.4-10.2) mg/dL Total Bilirubin (0.0-1.0) mg/dL AST (5-31) U/L ALT (0-31) U/L Alkaline Phosphatase (39-117) U/L Troponin I High Sens < 2.7 (<3.5-17.0) ng/L Total Protein (6.5-8.0) g/dL Albumin (3.5-5.0) g/dL Lipase (8-78) U/L Urine Color Red A Urine Appearance Turbid Urine pH 6.0 (5.0-9.0) Ur Specific [place] >= 1.030 H (1.005-1.025) Urine Protein 100 (2+) H (Neg-Trace) mg/dL Urine Glucose (UA) Negative (Negative) mg/dL Urine Ketones Negative (Negative) mg/dL Urine Blood Large (3+) H (Negative) Urine Nitrite Positive H (Negative) Ur Leukocyte Esterase Moderate (2+) H (Negative) Urine RBC >20 H (0-2) /HPF Urine WBC 21-50 H (0-5) /HPF Ur Squamous Epith Cells 6-10 (0-2) /HPF Urine Bacteria Trace (None Seen) Hyaline Casts 0-2 (0-2) /LPF Urine Test (NEGATIVE) <Manjit Harris - Last Filed: 12/08/22 19:12> Lab Results 12/08/22 12/08/22 12/08/22 Range/Units 19:34 19:34 19:41 WBC 7.5 (4.8-10.8) X10*3/uL RBC 4.59 (4.20-5.50) X10*6/uL Hgb 12.1 (12.0-16.0) g/dl Hct 37.3 (37.0-47.0) % MCV 81.3 (80.0-98.0) fL MCH 26.4 L (27.0-33.0) pg MCHC 32.4 (31.0-35.0) g/dl RDW 15.9 (11.0-16.0) % Plt Count 396 (160-400) X10*3/uL MPV 9.7 (9.4-12.3) fL Immature Gran % (Auto) 0.3 (0.0-0.4) % Neut % (Auto) 73.8 H (45-73) % Lymph % (Auto) 18.0 L (20-40) % [place] % (Auto) 7.1 (2-11) % Eos % (Auto) 0.4 (0-4) % Baso % (Auto) 0.4 (0-2) % Lymph # (Auto) 1.4 (1.2-4.9) X10*3/uL [place] # (Auto) 0.5 (0.1-1.2) X10*3/uL Eos # (Auto) 0.0 (0.0-0.4) X10*3/uL Baso # (Auto) 0.0 (0.0-0.2) X10*3/uL Abs Immat Gran (auto) 0.02 (0.00-0.03) X10*3/uL Absolute Neuts (auto) 5.6 (2.0-8.3) x10*3/uL Absolute Nucleated RBC 0.000 (0.0-0.012) X10*3/uL Nucleated RBC % (auto) 0.0 (0.0-0.2) /100WBC Sodium 140 (135-145) mmol/L Potassium 4.2 (3.3-5.1) mmol/L Chloride 108 (96-108) mmol/L Carbon Dioxide 23 (22-29) mmol/L Anion Gap 13 (12-20) BUN 6 L (9-16) mg/dL Creatinine 0.67 (0.5-1.4) mg/dL Estim Creat Clear Calc 119.9 Estimated GFR > 60 Random Glucose 95 (60-115) mg/dL Calcium 9.2 (8.4-10.2) mg/dL Total Bilirubin 0.5 (0.0-1.0) mg/dL AST 17 (5-31) U/L ALT 22 (0-31) U/L Alkaline Phosphatase 71 (39-117) U/L Troponin I High Sens (<3.5-17.0) ng/L Total Protein 6.7 (6.5-8.0) g/dL Albumin 3.9 (3.5-5.0) g/dL Lipase 8 (8-78) U/L Urine Color Urine Appearance Urine pH (5.0-9.0) Ur Specific [place] (1.005-1.025) Urine Protein (Neg-Trace) mg/dL Urine Glucose (UA) (Negative) mg/dL Urine Ketones (Negative) mg/dL Urine Blood (Negative) Urine Nitrite (Negative) Ur Leukocyte Esterase (Negative) Urine RBC (0-2) /HPF Urine WBC (0-5) /HPF Ur Squamous Epith Cells (0-2) /HPF Urine Bacteria (None Seen) Hyaline Casts (0-2) /LPF Urine Test NEGATIVE (NEGATIVE) 12/08/22 12/08/22 Range/Units 19:41 20:50 WBC (4.8-10.8) X10*3/uL RBC (4.20-5.50) X10*6/uL Hgb (12.0-16.0) g/dl Hct (37.0-47.0) % MCV (80.0-98.0) fL MCH (27.0-33.0) pg MCHC (31.0-35.0) g/dl RDW (11.0-16.0) % Plt Count (160-400) X10*3/uL MPV (9.4-12.3) fL Immature Gran % (Auto) (0.0-0.4) % Neut % (Auto) (45-73) % Lymph % (Auto) (20-40) % [place] % (Auto) (2-11) % Eos % (Auto) (0-4) % Baso % (Auto) (0-2) % Lymph # (Auto) (1.2-4.9) X10*3/uL [place] # (Auto) (0.1-1.2) X10*3/uL Eos # (Auto) (0.0-0.4) X10*3/uL Baso # (Auto) (0.0-0.2) X10*3/uL Abs Immat Gran (auto) (0.00-0.03) X10*3/uL Absolute Neuts (auto) (2.0-8.3) x10*3/uL Absolute Nucleated RBC (0.0-0.012) X10*3/uL Nucleated RBC % (auto) (0.0-0.2) /100WBC Sodium (135-145) mmol/L Potassium (3.3-5.1) mmol/L Chloride (96-108) mmol/L Carbon Dioxide (22-29) mmol/L Anion Gap (12-20) BUN (9-16) mg/dL Creatinine (0.5-1.4) mg/dL Estim Creat Clear Calc Estimated GFR Random Glucose (60-115) mg/dL Calcium (8.4-10.2) mg/dL Total Bilirubin (0.0-1.0) mg/dL AST (5-31) U/L ALT (0-31) U/L Alkaline Phosphatase (39-117) U/L Troponin I High Sens < 2.7 (<3.5-17.0) ng/L Total Protein (6.5-8.0) g/dL Albumin (3.5-5.0) g/dL Lipase (8-78) U/L Urine Color Red A Urine Appearance Turbid Urine pH 6.0 (5.0-9.0) Ur Specific [place] >= 1.030 H (1.005-1.025) Urine Protein 100 (2+) H (Neg-Trace) mg/dL Urine Glucose (UA) Negative (Negative) mg/dL Urine Ketones Negative (Negative) mg/dL Urine Blood Large (3+) H (Negative) Urine Nitrite Positive H (Negative) Ur Leukocyte Esterase Moderate (2+) H (Negative) Urine RBC >20 H (0-2) /HPF Urine WBC 21-50 H (0-5) /HPF Ur Squamous Epith Cells 6-10 (0-2) /HPF Urine Bacteria Trace (None Seen) Hyaline Casts 0-2 (0-2) /LPF Urine Test (NEGATIVE) <LAMINE Griffin - Last Filed: 12/09/22 17:09> Independent Interpretation I performed an independent interpretation of an: EKG (Normal sinus rhythm. Ventricular rate 98. Pr interval 174. QRS 84. QTC 411 Negative STEMI) <LAMINE Griffin - Last Filed: 12/09/22 17:09> Independent Historian Clinical information obtained from an independent historian. History obtained from or confirmed by: Parent <LAMINE Griffin - Last Filed: 12/09/22 17:09> Prescription Management I considered prescription management with: Pain Medication and Antibiotic <LAMINE Griffin - Last Filed: 12/09/22 17:09> Discharge Plan Discharge Clinical Impression: Gastroesophageal reflux disease, UTI (urinary tract infection) <Manjit Harris - Last Filed: 12/08/22 19:12> Patient Disposition: Home, Self-Care <Manjit Harris - Last Filed: 12/08/22 19:12> Instructions: Urinary Tract Infection in Women (DC), Gastroesophageal Reflux Disease (ED) <Manjit Harris - Last Filed: 12/08/22 19:12> Additional Instructions: The urine shows urinary tract infection. He will need antibiotics. You will also be discharged with anti acid medication for your acid reflux. Return to ED for worsening abdominal pain, fever, chills, flank pain, coughing up blood, bloody urine, blood in stool, chest pain, shortness of breath, inability to tolerate solid food/liquid, or any other concerning symptoms. Please follow-up with primary care provider <Manjit Harris - Last Filed: 12/08/22 19:12> Prescriptions: New cefuroxime axetil 250 mg tablet 250 mg PO BID 7 Days Qty: 14 0RF famotidine [Pepcid] 20 mg tablet 20 mg PO BID 10 Days Qty: 20 0RF No Action prednisone 20 mg tablet 20 mg PO DAILY 7 Days Qty: 7 0RF doxycycline hyclate 100 mg tablet 100 mg PO BID 7 Days Qty: 14 0RF aripiprazole 10 mg tablet 10 mg PO DAILY vilazodone [Viibryd] 20 mg tablet 20 mg PO DAILY desogestrel-ethinyl estradiol [Apri] 0.15-0.03 mg tablet 1 tab PO DAILY Qty: 84 0RF aripiprazole 2 mg tablet 2 mg PO DAILY <Manjit Harris - Last Filed: 12/08/22 19:12> Stand Alone Forms: Work/School Release <Manjit Harris - Last Filed: 12/08/22 19:12> Interventions: ED Discharge Assessment Last Done: 12/08/22 22:49 <Manjit Harris - Last Filed: 12/08/22 19:12> Discharge Date/Time: 12/08/22 22:49 <Manjit Harris - Last Filed: 12/08/22 19:12> Print Language: Qatari <Manjit Harris - Last Filed: 12/08/22 19:12>
[2022-12-08 19:47] LABS: Basophils Percent Auto 0.4 % (0-2); Eosinophils Percent Auto 0.4 % (0-4); Hematocrit 37.3 % (37.0-47.0); Hemoglobin 12.1 g/dl (12.0-16.0); Imm Gran Abs Auto 0.02 X10*3/uL (0.00-0.03); Imm Gran Pct Auto 0.3 % (0.0-0.4); Lymphocytes Absolute Auto 1.4 X10*3/uL (1.2-4.9); MANUAL DIFF FLAG NO; Mean Corpuscular HGB Conc 32.4 g/dl (31.0-35.0); Mean Corpuscular Hemoglobin 26.4 pg (27.0-33.0); Mean Corpuscular Volume 81.3 fL (80.0-98.0); Mean Platelet Volume 9.7 fL (9.4-12.3); Monocytes Absolute Auto 0.5 X10*3/uL (0.1-1.2); Monocytes Percent Auto 7.1 % (2-11); Neutrophils Absolute Auto 5.6 x10*3/uL (2.0-8.3); Neutrophils Percent Auto 73.8 % (45-73); Platelet Count 396 X10*3/uL (160-400); Red Blood Count 4.59 X10*6/uL (4.20-5.50); Red Cell Distribution Width 15.9 % (11.0-16.0); White Blood Count 7.5 X10*3/uL (4.8-10.8)
[2022-12-08 19:50] LABS: UPreg QC Valid YES; Urine Pregnancy NEGATIVE (NEGATIVE)
[2022-12-08 20:00] VITALS: BP 126/87; PULSE 113; RESP 16; TEMP 36.8; O2SAT 99
[2022-12-08 20:03] LABS: Alanine Aminotransferase 22 U/L (0-31); Albumin Level 3.9 g/dL (3.5-5.0); Alkaline Phosphatase 71 U/L (39-117); Anion Gap 13 (12-20); Aspartate Amino Transferase 17 U/L (5-31); Bilirubin Total 0.5 mg/dL (0.0-1.0); Blood Urea Nitrogen 6 mg/dL (9-16); Calcium 9.2 mg/dL (8.4-10.2); Carbon Dioxide 23 mmol/L (22-29); Chloride 108 mmol/L (96-108); Creatinine Clr Calc Pharmacy 119.9; Estimated Glomerular Filt Rate > 60; Glucose Random 95 mg/dL (60-115); Lipase 8 U/L (8-78); Potassium 4.2 mmol/L (3.3-5.1); Sodium 140 mmol/L (135-145); Total Protein 6.7 g/dL (6.5-8.0)
[2022-12-08 20:31] LABS: Appearance Urine Turbid; Color Urine Red; Glucose Urine UA Negative (Negative); Leukocyte Esterase Urine Moderate (2+) (Negative); Nitrite Urine Positive (Negative); Specific Gravity - Urine >= 1.030 (1.005-1.025); UMIC TRIGGER UA YES; Urine Blood Large (3+) (Negative); Urine Ketones Negative (Negative); Urine Protein 100 (2+) mg/dL (Neg-Trace)
--- NOTE | 2022-12-08 20:35 | ECG_ITS ---
Test Reason : TACHYCARDIA Blood Pressure : / mmHG Vent. Rate : 098 BPM Atrial Rate : 098 BPM P-R Int : 174 ms QRS Dur : 084 ms QT Int : 322 ms P-R-T Axes : 037 057 033 degrees QTc Int : 411 ms Normal sinus rhythm Normal ECG When compared with ECG of 29-JUL-2022 18:15, T wave inversion no longer evident in Inferior leads T wave inversion no longer evident in Lateral leads Referred By: Darci Tabares Electronically Signed By:LEN EDWARDS
[2022-12-08] MEDS: Famotidine/PF 20 MG/2 ML VIAL IVPUSH (20:51)
[2022-12-08] MEDS: 0.9 % Sodium Chloride 1,000 ML 999 ML IV (20:51)
[2022-12-08] MEDS: ondansetron HCL 4 MG/2 ML VIAL IVPUSH (20:51)
[2022-12-08 21:21] LABS: Troponin-I High Sensitivity < 2.7 ng/L (<3.5-17.0)
[2022-12-08 21:28] LABS: Bacteria Urine Trace (None Seen); Hyaline Casts Urine 0-2 /LPF (0-2); RBC Urine >20 /HPF (0-2); WBC Urine 21-50 /HPF (0-5)
[2022-12-08 22:00] VITALS: BP 113/77; PULSE 104; RESP 14; TEMP 36.8; O2SAT 98
== END 2022-12-08 22:49 | disposition home or self-care (01) ==
PROVIDERS: Physician Assistant; Emergency Provider Emergency Medicine; PCP Internal Medicine
DX: N39.0 Urinary tract infection, site not specified (principal); K21.9 Gastro-esophageal reflux disease without esophagitis
CPT/HCPCS: 36415; 80053; 81001; 81025; 83690; 84484; 85025; 93005; 96361; 96374; 96375; 99284; 99285; J2405

== ENCOUNTER 2022-12-12 12:55 | Outpatient (REF) | payer OTHER, SELFPAY ==
[2022-12-12 14:26] LABS: Hematocrit 36.4 % (37.0-47.0); Hemoglobin 11.6 g/dl (12.0-16.0)
[2022-12-12 14:58] LABS: Alanine Aminotransferase 18 U/L (0-31); Albumin Level 3.8 g/dL (3.5-5.0); Alkaline Phosphatase 69 U/L (39-117); Aspartate Amino Transferase 14 U/L (5-31); Bilirubin Direct 0.1 mg/dL (0.0-0.5); Bilirubin Total 0.4 mg/dL (0.0-1.0); Total Protein 6.4 g/dL (6.5-8.0)
[2022-12-12 15:27] LABS: Folate 6.7 ng/mL (> or = 4.0); TSH reflex Free T4 0.87 uIU/mL (0.32-4.0); Vitamin B12 253 pg/mL (200-900)
[2022-12-18 16:17] LABS: Vitamin D 25-OH, D2 <4 ng/mL; Vitamin D 25-OH, D3 8 ng/mL; Vitamin D 25-OH, Total 8 ng/mL (30-100)
[2022-12-20 05:39] LABS: Transglutaminase Ab IgG <1.0 U/mL; Transglutaminase IgA <1.0 U/mL
== END 2022-12-12 12:56 | disposition home or self-care (01) ==
LOC: HO.LAB 12:55
PROVIDERS: Absent Provider Internal Medicine; PCP Internal Medicine; Visit Provider Nurse Practitioner Family
DX: Z00.01 Encounter for general adult medical examination with abnormal findings (principal); R10.13 Epigastric pain; K21.9 Gastro-esophageal reflux disease without esophagitis; E55.9 Vitamin D deficiency, unspecified; E53.8 Deficiency of other specified B group vitamins; F32.4 Major depressive disorder, single episode, in partial remission; I47.1 Supraventricular tachycardia; I95.1 Orthostatic hypotension; N83.202 Unspecified ovarian cyst, left side; R10.9 Unspecified abdominal pain; Z78.9 Other specified health status
CPT/HCPCS: 36415; 80076; 82306; 82607; 82746; 84443; 85014; 85018; 86364; 99202

== ENCOUNTER 2022-12-17 08:41 | Outpatient (REF) | payer OTHER, SELFPAY ==
[2022-12-21 11:16] LABS: H Pylori Breath Test Negative (Negative)
== END 2022-12-17 08:42 | disposition home or self-care (01) ==
LOC: HO.LNP 08:41
PROVIDERS: PCP Internal Medicine; Referring Provider Internal Medicine; Visit Provider Nurse Practitioner Family
DX: Z11.2 Encounter for screening for other bacterial diseases (principal)
CPT/HCPCS: 83013; 99211

== ENCOUNTER 2023-02-12 08:13 | Outpatient (REF) | payer OTHER, SELFPAY | END 2023-02-12 08:14 | disposition home or self-care (01) | LOC: HO.LAB 08:13 | PROVIDERS: PCP Internal Medicine; Visit Provider Nurse Practitioner Family | DX: K21.9 Gastro-esophageal reflux disease without esophagitis (principal); R10.13 Epigastric pain; R11.0 Nausea; F41.9 Anxiety disorder, unspecified; F43.9 Reaction to severe stress, unspecified | CPT/HCPCS: 36415; 86003; 99212 ==

== ENCOUNTER 2023-02-13 18:07 | Emergency (ER) | payer OTHER, SELFPAY ==
[2023-02-13 18:24] VITALS: BP 117/88; PULSE 118; RESP 18; TEMP 36.4; O2SAT 97; BMI 31.8
--- NOTE | 2023-02-13 18:24 | ED_ITS ---
HPI - Nausea/Vomiting/Diarrhea General Chief complaint: Abdominal Pain Stated complaint: n/v Time Seen by Provider: 02/13/23 18:44 Source: patient Mode of arrival: ambulatory Limitations: no limitations History of Present Illness HPI Narrative: Patient comes emergency room complaining of nausea vomiting for approximately 6 hours. Patient denies diarrhea, no significant abdominal pain. Patient states that she tried Zofran at home without any relief. Patient denies URI or UTI symptoms, no fever or chills. Related Data Home Medications Medication Instructions Recorded Confirmed aripiprazole 10 mg tablet 10 mg PO DAILY 06/28/21 11/27/22 vilazodone 20 mg tablet (Viibryd) 20 mg PO DAILY 08/01/22 11/27/22 aripiprazole 2 mg tablet 2 mg PO DAILY 09/26/22 11/27/22 Previous Rx's Medication Instructions Recorded cefuroxime axetil 250 mg tablet 250 mg PO BID 7 days #14 tabs 12/08/22 cholecalciferol (vitamin D3) 50 50 mcg PO DAILY #90 caps 12/24/22 mcg (2,000 unit) capsule desogestrel 0.15 mg-ethinyl 1 tab PO DAILY #84 tabs 02/06/23 estradiol 0.03 mg tablet (Apri) ondansetron 4 mg disintegrating 4 mg PO Q8H PRN nausea and 02/12/23 tablet vomiting #20 tabs pantoprazole 20 mg tablet,delayed 20 mg PO DAILY #90 tabs 02/12/23 release Allergies Allergy/AdvReac Type Severity Reaction Status Date / Time metoprolol AdvReac Diarrhea Verified 02/13/23 18:26 Review of Systems Review of Systems: Constitutional : No Weight loss, No Fever, No Chills, No Night Sweats, No Fatigue, No Malaise ENT/Mouth : No Hearing loss, No Ear Pain, No Nasal Congestion, No Sinus Pain, No Hoarseness, No sore throat, No Rhinorrhea, No Swallowing Difficulty Eyes: No Eye Pain, No Swelling, No Redness, No Foreign Body, No Discharge, No Vision Changes Cardiovascular : No Chest Pain, No SOB, No Dyspnea on Exertion, No Orthopnea, No Edema, No Palpitations Respiratory : No Cough, No Sputum, No Wheezing, No Smoke Exposure, No Dyspnea Gastrointestinal : Complaining of nausea vomiting, No Diarrhea, No Constipation, No abdominal Pain, No Hematochezia, No Melena Genitourinary : no irregular bleeding, No Dysuria, No Urinary Frequency, No Hematuria, No Urinary Incontinence, No Urgency, No Flank Pain, No Urinary Flow Changes, No Hesitancy Musculoskeletal : No joint pain, No Myalgias, No Joint Swelling Skin : No Skin Lesions, No rash Neuro : No Weakness, No Numbness, No Paresthesias, No Loss of Consciousness, No Dizziness, No Headache Psych : No Anxiety/Panic, No Depression, No SI/HI/AH/VH, No Social Issues, Heme/Lymph: No Bruising, No Bleeding,No Lymphadenopathy Endocrine : No Polyuria, No Polydipsia, No Temperature Intolerance PENDING SALE TO [facility] Past Medical History Medical History Epigastric abdominal pain Hx of ovarian cyst Left ovarian cyst Major depression in partial remission Migraine Orthostatic hypotension Supraventricular tachycardia by ECG Uses control Vitamin B12 deficiency Vitamin D deficiency Surgical History H/O removal of cyst Family History Family History Mother Bipolar disorder Mental health disorder Social History Social History Household Members: Family Household Members Other:: mother and MGF Housing: House Patient Tobacco Use Status: Never used Tobacco e-Cigarette/Vaping Use: Never Used Advance Directives: No Advance Directives Information Provided: No service: No Current occupational status: unemployed Cognitive needs: No Hearing needs: No Vision needs: No Physical Exam Vital Signs: Vital Signs: Last Vital Signs Temp 98.4 F 02/13/23 19:58 Pulse 77 02/13/23 19:58 Resp 16 02/13/23 19:58 BP 118/78 02/13/23 19:58 Pulse Ox 96 02/13/23 19:58 O2 Del Method Room Air 02/13/23 19:58 BMI result Body Mass Index 31.8 Const: Other: Appearance: Alert. Oriented X3. No acute distress. Eyes: Pupils equal, round and reactive to light. ENT: Pharynx normal. Neck: Normal inspection. Neck supple. No lymph nodes noted. No crepitus CVS: Normal heart rate and rhythm. Pulses normal. Normal S1 and S2 Respiratory: No respiratory distress. Breath sounds normal. No Wheezing. No rales Abdomen: Soft , no tenderness to palpation in any quadrant, no rebound, no guarding Skin: Skin warm and dry. Normal skin color. Normal skin turgor. Extremities: No lower extremity edema. No Lacerations. No Rash Neuro: Oriented X 3. No motor deficit. No sensory deficit. Moving all extremities. No slurred speech. CN 2 through 12 grossly intact Psych: calm, cooperative, normal affect Course Course Course Narrative: RME: 22yo F w/PMHx SVT, L ovarian cyst, c/o lower abdominal pain, N/V since 1300. Admits pain is intermittent, took Zofran w/o relief. Unable to tolerate PO. denies diarrhea, sick contacts, travel, recent abx use labs, UA, U-preg ordered Full HPI, ROS and PE to be performed by primary ED provider. Medications Administered Discontinued Medications Generic Name Dose Route Start Last Admin Trade Name Freq PRN Reason Stop Dose Admin Sodium Chloride 1,000 mls @ 999 mls/hr 02/13/23 18:57 02/13/23 19:29 Ns IVCONT 02/13/23 19:57 999 mls/hr .Q1H1M ONE Administration Prochlorperazine Edisylate 10 mg 02/13/23 18:57 02/13/23 19:32 Prochlorperazine Edisylate 10 Mg/2 Ml Vial IVPUSH 02/13/23 18:58 10 mg ONCE ONE Administration Medical Decision Making Medical Decision Making [facility] Narrative: -patient received IV fluids, Compazine. Likely dehydrated, unable to drink or eat anything. - patient was rehydrated, Patient states that she feels much better. Patient has no abdominal pain -abdominal physical exam within normal limits, imaging not indicated this time. -negative test Differential Diagnosis Differential Diagnoses: The differential diagnosis associated with the presentation includes (Gastroenteritis, gastritis, GERD, ) Lab Data [facility] Lab Attestation statement: I reviewed the patient's lab results. (Patient's white blood cell count normal, no significant electrolyte abnormalities, negative test, negative UTI) 02/13/23 18:40 02/13/23 18:40 Labs: Lab Results 02/13/23 02/13/23 02/13/23 Range/Units 18:40 18:40 20:09 WBC 9.3 (4.8-10.8) X10*3/uL RBC 4.64 (4.20-5.50) X10*6/uL Hgb 11.8 L (12.0-16.0) g/dl Hct 37.6 (37.0-47.0) % MCV 81.0 (80.0-98.0) fL MCH 25.4 L (27.0-33.0) pg MCHC 31.4 (31.0-35.0) g/dl RDW 14.8 (11.0-16.0) % Plt Count 377 (160-400) X10*3/uL MPV 9.5 (9.4-12.3) fL Immature Gran % (Auto) 0.2 (0.0-0.4) % Neut % (Auto) 77.4 H (45-73) % Lymph % (Auto) 15.7 L (20-40) % [place] % (Auto) 6.0 (2-11) % Eos % (Auto) 0.2 (0-4) % Baso % (Auto) 0.5 (0-2) % Lymph # (Auto) 1.5 (1.2-4.9) X10*3/uL [place] # (Auto) 0.6 (0.1-1.2) X10*3/uL Eos # (Auto) 0.0 (0.0-0.4) X10*3/uL Baso # (Auto) 0.1 (0.0-0.2) X10*3/uL Abs Immat Gran (auto) 0.02 (0.00-0.03) X10*3/uL Absolute Neuts (auto) 7.2 (2.0-8.3) x10*3/uL Absolute Nucleated RBC 0.000 (0.0-0.012) X10*3/uL Nucleated RBC % (auto) 0.0 (0.0-0.2) /100WBC Sodium 135 (135-145) mmol/L Potassium 3.9 (3.3-5.1) mmol/L Chloride 105 (96-108) mmol/L Carbon Dioxide 24 (22-29) mmol/L Anion Gap 10 L (12-20) BUN 4 L (9-16) mg/dL Creatinine 0.62 (0.5-1.4) mg/dL Estim Creat Clear Calc 129.9 Estimated GFR > 60 Random Glucose 100 (60-115) mg/dL Calcium 9.2 (8.4-10.2) mg/dL Magnesium 1.8 (1.6-2.6) mg/dL Total Bilirubin 0.5 (0.0-1.0) mg/dL Direct Bilirubin 0.1 (0.0-0.5) mg/dL AST 19 (5-31) U/L ALT 20 (0-31) U/L Alkaline Phosphatase 90 (39-117) U/L Total Protein 6.8 (6.5-8.0) g/dL Albumin 3.6 (3.5-5.0) g/dL Lipase 9 (8-78) U/L Urine Color Urine Appearance Urine pH (5.0-9.0) Ur Specific [place] (1.005-1.025) Urine Protein (Neg-Trace) mg/dL Urine Glucose (UA) (Negative) mg/dL Urine Ketones (Negative) mg/dL Urine Blood (Negative) Urine Nitrite (Negative) Ur Leukocyte Esterase (Negative) Urine Test (NEGATIVE) Urine Opiates Screen Not Detected (Not Detect) Urine Fentanyl Screen Not Detected (Not Detect) Ur Barbiturates Screen Not Detected (Not Detect) Ur Phencyclidine Scrn Not Detected (Not Detect) Ur Amphetamines Screen Not Detected (Not Detect) U Benzodiazepines Scrn Not Detected (Not Detect) Urine Cocaine Screen Not Detected (Not Detect) U Marijuana (THC) Screen Not Detected (Not Detect) 02/13/23 02/13/23 Range/Units 20:09 20:09 WBC (4.8-10.8) X10*3/uL RBC (4.20-5.50) X10*6/uL Hgb (12.0-16.0) g/dl Hct (37.0-47.0) % MCV (80.0-98.0) fL MCH (27.0-33.0) pg MCHC (31.0-35.0) g/dl RDW (11.0-16.0) % Plt Count (160-400) X10*3/uL MPV (9.4-12.3) fL Immature Gran % (Auto) (0.0-0.4) % Neut % (Auto) (45-73) % Lymph % (Auto) (20-40) % [place] % (Auto) (2-11) % Eos % (Auto) (0-4) % Baso % (Auto) (0-2) % Lymph # (Auto) (1.2-4.9) X10*3/uL [place] # (Auto) (0.1-1.2) X10*3/uL Eos # (Auto) (0.0-0.4) X10*3/uL Baso # (Auto) (0.0-0.2) X10*3/uL Abs Immat Gran (auto) (0.00-0.03) X10*3/uL Absolute Neuts (auto) (2.0-8.3) x10*3/uL Absolute Nucleated RBC (0.0-0.012) X10*3/uL Nucleated RBC % (auto) (0.0-0.2) /100WBC Sodium (135-145) mmol/L Potassium (3.3-5.1) mmol/L Chloride (96-108) mmol/L Carbon Dioxide (22-29) mmol/L Anion Gap (12-20) BUN (9-16) mg/dL Creatinine (0.5-1.4) mg/dL Estim Creat Clear Calc Estimated GFR Random Glucose (60-115) mg/dL Calcium (8.4-10.2) mg/dL Magnesium (1.6-2.6) mg/dL Total Bilirubin (0.0-1.0) mg/dL Direct Bilirubin (0.0-0.5) mg/dL AST (5-31) U/L ALT (0-31) U/L Alkaline Phosphatase (39-117) U/L Total Protein (6.5-8.0) g/dL Albumin (3.5-5.0) g/dL Lipase (8-78) U/L Urine Color Yellow Urine Appearance Hazy Urine pH 7.0 (5.0-9.0) Ur Specific [place] 1.020 (1.005-1.025) Urine Protein Trace (Neg-Trace) mg/dL Urine Glucose (UA) Negative (Negative) mg/dL Urine Ketones Trace (Negative) mg/dL Urine Blood Negative (Negative) Urine Nitrite Negative (Negative) Ur Leukocyte Esterase Negative (Negative) Urine Test NEGATIVE (NEGATIVE) Urine Opiates Screen (Not Detect) Urine Fentanyl Screen (Not Detect) Ur Barbiturates Screen (Not Detect) Ur Phencyclidine Scrn (Not Detect) Ur Amphetamines Screen (Not Detect) U Benzodiazepines Scrn (Not Detect) Urine Cocaine Screen (Not Detect) U Marijuana (THC) Screen (Not Detect) Independent Historian Clinical information obtained from an independent historian. History obtained from or confirmed by: Parent Discharge Plan Discharge Clinical Impression: Nausea & vomiting Patient Disposition: Home, Self-Care Instructions: Acute Nausea and Vomiting (ED) Additional Instructions: Please follow-up with your primary care physician tomorrow. If you have any worsening or new symptoms, please return to the emergency room or call 911 Prescriptions: No Action cholecalciferol (vitamin D3) 50 mcg (2,000 unit) capsule 50 mcg PO DAILY Qty: 90 3RF desogestrel-ethinyl estradiol [Apri] 0.15-0.03 mg tablet 1 tab PO DAILY Qty: 84 0RF cefuroxime axetil 250 mg tablet 250 mg PO BID 7 Days Qty: 14 0RF aripiprazole 10 mg tablet 10 mg PO DAILY vilazodone [Viibryd] 20 mg tablet 20 mg PO DAILY aripiprazole 2 mg tablet 2 mg PO DAILY ondansetron 4 mg tablet,disintegrating 4 mg PO Q8H PRN (Reason: nausea and vomiting) Qty: 20 1RF pantoprazole 20 mg tablet,delayed release (DR/EC) 20 mg PO DAILY Qty: 90 3RF Stand Alone Forms: Work/School Release
[2023-02-13 18:46] LABS: MANUAL DIFF FLAG NO
[2023-02-13 18:48] LABS: Basophils Absolute Auto 0.1 X10*3/uL (0.0-0.2); Basophils Percent Auto 0.5 % (0-2); Eosinophils Percent Auto 0.2 % (0-4); Hematocrit 37.6 % (37.0-47.0); Hemoglobin 11.8 g/dl (12.0-16.0); Imm Gran Abs Auto 0.02 X10*3/uL (0.00-0.03); Imm Gran Pct Auto 0.2 % (0.0-0.4); Lymphocytes Absolute Auto 1.5 X10*3/uL (1.2-4.9); Lymphocytes Percent Auto 15.7 % (20-40); Mean Corpuscular HGB Conc 31.4 g/dl (31.0-35.0); Mean Corpuscular Hemoglobin 25.4 pg (27.0-33.0); Mean Platelet Volume 9.5 fL (9.4-12.3); Monocytes Absolute Auto 0.6 X10*3/uL (0.1-1.2); Neutrophils Absolute Auto 7.2 x10*3/uL (2.0-8.3); Neutrophils Percent Auto 77.4 % (45-73); Platelet Count 377 X10*3/uL (160-400); Red Blood Count 4.64 X10*6/uL (4.20-5.50); Red Cell Distribution Width 14.8 % (11.0-16.0); White Blood Count 9.3 X10*3/uL (4.8-10.8)
[2023-02-13 19:03] LABS: Alanine Aminotransferase 20 U/L (0-31); Albumin Level 3.6 g/dL (3.5-5.0); Alkaline Phosphatase 90 U/L (39-117); Anion Gap 10 (12-20); Aspartate Amino Transferase 19 U/L (5-31); Bilirubin Direct 0.1 mg/dL (0.0-0.5); Bilirubin Total 0.5 mg/dL (0.0-1.0); Blood Urea Nitrogen 4 mg/dL (9-16); Calcium 9.2 mg/dL (8.4-10.2); Carbon Dioxide 24 mmol/L (22-29); Chloride 105 mmol/L (96-108); Creatinine Clr Calc Pharmacy 129.9; Estimated Glomerular Filt Rate > 60; Glucose Random 100 mg/dL (60-115); Lipase 9 U/L (8-78); Magnesium 1.8 mg/dL (1.6-2.6); Potassium 3.9 mmol/L (3.3-5.1); Sodium 135 mmol/L (135-145); Total Protein 6.8 g/dL (6.5-8.0)
[2023-02-13] MEDS: 0.9 % Sodium Chloride 1,000 ML 999 ML IVCONT (19:29)
[2023-02-13] MEDS: Prochlorperazine Edisylate 10 MG/2 ML VIAL IVPUSH (19:32)
[2023-02-13 19:58] VITALS: BP 118/78; PULSE 77; RESP 16; TEMP 36.9; O2SAT 96
[2023-02-13 20:23] LABS: Appearance Urine Hazy; Color Urine Yellow; Glucose Urine UA Negative (Negative); Leukocyte Esterase Urine Negative (Negative); Nitrite Urine Negative (Negative); Urine Blood Negative (Negative); Urine Ketones Trace mg/dL (Negative); Urine Protein Trace mg/dL (Neg-Trace)
[2023-02-13 20:25] LABS: UPreg QC Valid YES; Urine Pregnancy NEGATIVE (NEGATIVE)
[2023-02-13 20:29] LABS: Amphetamine Screen Urine Not Detected (Not Detect); Barbiturates, Urine Not Detected (Not Detect); Benzodiazepines Screen Urine Not Detected (Not Detect); Cannabinoid Screen Urine Not Detected (Not Detect); Cocaine Screen Urine Not Detected (Not Detect); Fentanyl, urine Not Detected (Not Detect); Opiate Screen Urine Not Detected (Not Detect); Phencyclidine Screen Urine Not Detected (Not Detect)
== END 2023-02-13 21:34 | disposition home or self-care (01) ==
PROVIDERS: Physician Assistant; Emergency Provider Emergency Medicine
DX: R11.2 Nausea with vomiting, unspecified (principal); Z79.899 Other long term (current) drug therapy
CPT/HCPCS: 36415; 80048; 80076; 80307; 81003; 81025; 83690; 83735; 85025; 96361; 96374; 99283; 99284

== ENCOUNTER 2023-02-16 22:56 | Emergency (ER) | payer OTHER, SELFPAY ==
[2023-02-16 22:58] VITALS: BP 120/77; PULSE 114; RESP 20; TEMP 36.4; O2SAT 98; BMI 31.8
--- NOTE | 2023-02-17 00:10 | ED.URI ---
HPI - URI/Sore Throat General Chief Complaint: Upper Respiratory Symptoms Stated Complaint: Cough/Sob Time Seen by Provider: 02/16/23 23:58 Source: patient and family (Mother) Mode of arrival: ambulatory Limitations: no limitations History of Present Illness HPI Narrative: 22-year-old female came in for evaluation of shortness of breath, sore throat, nonproductive cough, chest tightness. No recent travel, no lower extremities swelling or tenderness, no history of DVT or PE. No history of smoking, no history of sick contacts, no recent travel. Related Data Home Medications Medication Instructions Recorded Confirmed aripiprazole 10 mg tablet 10 mg PO DAILY 06/28/21 11/27/22 vilazodone 20 mg tablet (Viibryd) 20 mg PO DAILY 08/01/22 11/27/22 aripiprazole 2 mg tablet 2 mg PO DAILY 09/26/22 11/27/22 Previous Rx's Medication Instructions Recorded cefuroxime axetil 250 mg tablet 250 mg PO BID 7 days #14 tabs 12/08/22 cholecalciferol (vitamin D3) 50 50 mcg PO DAILY #90 caps 12/24/22 mcg (2,000 unit) capsule desogestrel 0.15 mg-ethinyl 1 tab PO DAILY #84 tabs 02/06/23 estradiol 0.03 mg tablet (Apri) ondansetron 4 mg disintegrating 4 mg PO Q8H PRN nausea and 02/12/23 tablet vomiting #20 tabs pantoprazole 20 mg tablet,delayed 20 mg PO DAILY #90 tabs 02/12/23 release albuterol sulfate 90 mcg/actuation 1 inh inhalation QID PRN shortness 02/17/23 aerosol inhaler of breath or wheezing #8.5 grams azithromycin 250 mg tablet See Rx Instructions PO .COMPLEX #6 02/17/23 (Zithromax Z-Adria) tabs prednisone 20 mg tablet 20 mg PO BID #10 tabs 02/17/23 Allergies Allergy/AdvReac Type Severity Reaction Status Date / Time metoprolol AdvReac Diarrhea Verified 02/13/23 18:26 Review of Systems Review of Systems: All other systems are reviewed and are negative Constitutional: Reports as per HPI and Reports no additional constitutional complaints Eyes: Reports as per HPI and Reports no additional eye complaints Reports system reviewed and no additional complaints, except as documented Cardiovascular: Reports as per HPI and Reports no additional cardiovascular complaints Respiratory: Reports as per HPI and Reports no additional respiratory complaints Gastrointestinal: Reports as per HPI and Reports no additional gastrointestinal complaints Genitourinary: Reports no additional female genitourinary complaints Musculoskeletal: Reports no additional musculoskeletal complaints Skin/Breast: Reports system reviewed and no additional complaints, except as docu Psychiatric: Reports no additional psychiatric complaints Endocrine: Reports no additional endocrine complaints Hematologic/Lymphatic: Reports no additional hematologic/lymphatic complaints Allergic/Immunologic: Reports no additional allergic/immunologic complaints Reports system reviewed and no additional complaints, except as documented and Reports Abnormal speech present [facility] Past Medical History Medical History Epigastric abdominal pain Hx of ovarian cyst Left ovarian cyst Major depression in partial remission Migraine Orthostatic hypotension Supraventricular tachycardia by ECG Uses control Vitamin B12 deficiency Vitamin D deficiency Surgical History H/O removal of cyst Family History Family History Mother Bipolar disorder Mental health disorder Social History Social History Household Members: Family Household Members Other:: mother and MGF Housing: House Patient Tobacco Use Status: Never used Tobacco e-Cigarette/Vaping Use: Never Used Advance Directives: No Advance Directives Information Provided: No service: No Current occupational status: unemployed Cognitive needs: No Hearing needs: No Vision needs: No Physical Exam Vital Signs: Vital Signs: Last Vital Signs Temp 97.6 F 02/16/23 22:58 Pulse 114 H 02/16/23 22:58 Resp 20 02/16/23 22:58 BP 120/77 02/16/23 22:58 Pulse Ox 98 02/16/23 22:58 O2 Del Method Room Air 02/16/23 22:58 BMI result Body Mass Index 31.8 Vital signs have been reviewed as appeared to be correct. Blood pressure normal. Heart rate normal. Respiration rate normal. Temperature normal. Oxygen saturation normal. Appearance: Alert. Oriented X3. No acute distress. Head: Normal external exam. Normocephalic. Atraumatic. No Che signs noted. No raccoon eyes noted Eyes: PERRLA. EOMI. Conjunctiva and sclera normal. Eyelids normal. ENT: TM's Normal. Pharynx normal. Uvula midline. Moist mucous membranes. No trismus noted. No drooling noted. No muffled voice noted. Neck: Normal inspection. Neck supple. FROM. No adenopathy. Thyroid Normal. No meningeal signs. No neck mass noted. CVS: Normal heart rate and rhythm. Heart sound normal. No murmurs noted. Pulses normal throughout. Respiratory: No respiratory distress. Painless inspiration. Breath sounds normal. Diffuse bilateral expiratory wheezing with prolonged expiration. Chest nontender. No accessory muscle usage noted or decreased air movement noted. Abdomen: Soft and nontender. Bowel sounds normal in all 4 quadrants. No distention noted. No organomegaly noted. No visible injury noted. Back: No CVA tenderness. Full range of motion noted. Skin: Skin warm and dry. Normal skin color. Normal skin turgor. No rashes/lesions/lacerations noted. Extremities: No lower extremity edema. Extremities exhibit normal range of motion. Extremities nontender. Neuro: Oriented X 3. Cranial nerve exam: II-XII are grossly intact No motor deficit. No sensory deficit. Reflexes normal. Course Course Course Narrative: Pharyngitis/upper respiratory infection/bronchitis. Unremarkable labs/chest x-ray start the patient on albuterol/prednisone/Z-Adria. Medications Administered Discontinued Medications Generic Name Dose Route Start Last Admin Trade Name Freq PRN Reason Stop Dose Admin Albuterol/Ipratropium 3 ml 02/17/23 00:12 02/17/23 00:25 Albuterol/Iprat 2.5/0.5mg 3 Ml Ampul.Neb INHALE 02/17/23 00:13 3 ml ONCE ONE Administration Prednisone 40 mg 02/17/23 00:12 02/17/23 00:59 Prednisone 20 Mg Tablet PO 02/17/23 00:13 40 mg ONCE ONE Administration Medical Decision Making Differential Diagnosis Differential Diagnoses: The differential diagnosis associated with the presentation includes (Pneumonia, pneumothorax, pulmonary embolism, ACS, electrolyte abnormalities, strep pharyngitis, anemia, , UTI.) Admission/Observation Consideration of admission/observation: Escalation of care including admission/observation considered Lab Data MDM Lab Attestation statement: I reviewed the patient's lab results. 02/17/23 00:51 02/17/23 00:51 Labs: Lab Results 02/16/23 02/16/23 02/17/23 Range/Units 23:39 23:39 00:51 WBC (4.8-10.8) X10*3/uL RBC (4.20-5.50) X10*6/uL Hgb (12.0-16.0) g/dl Hct (37.0-47.0) % MCV (80.0-98.0) fL MCH (27.0-33.0) pg MCHC (31.0-35.0) g/dl RDW (11.0-16.0) % Plt Count (160-400) X10*3/uL MPV (9.4-12.3) fL Immature Gran % (Auto) (0.0-0.4) % Neut % (Auto) (45-73) % Lymph % (Auto) (20-40) % [place] % (Auto) (2-11) % Eos % (Auto) (0-4) % Baso % (Auto) (0-2) % Lymph # (Auto) (1.2-4.9) X10*3/uL [place] # (Auto) (0.1-1.2) X10*3/uL Eos # (Auto) (0.0-0.4) X10*3/uL Baso # (Auto) (0.0-0.2) X10*3/uL Abs Immat Gran (auto) (0.00-0.03) X10*3/uL Absolute Neuts (auto) (2.0-8.3) x10*3/uL Absolute Nucleated RBC (0.0-0.012) X10*3/uL Nucleated RBC % (auto) (0.0-0.2) /100WBC D-Dimer High Sensitivty NG/ML Sodium (135-145) mmol/L Potassium (3.3-5.1) mmol/L Chloride (96-108) mmol/L Carbon Dioxide (22-29) mmol/L Anion Gap (12-20) BUN (9-16) mg/dL Creatinine (0.5-1.4) mg/dL Estim Creat Clear Calc Estimated GFR Random Glucose (60-115) mg/dL Calcium (8.4-10.2) mg/dL Troponin I High Sens (<3.5-17.0) ng/L B-Natriuretic Peptide (<100) pg/mL Lipase (8-78) U/L COVID-19 (YAMILA) Negative (Negative) COVID-19 Clin Com See Note Influenza Type A (DEBBIE) Negative (Negative) Influenza Type B (DEBBIE) Negative (Negative) Influenza A & B Note See Note S. pyogenes GrpA DEBBIE Negative (Negative) 02/17/23 02/17/23 02/17/23 Range/Units 00:51 00:51 00:51 WBC 7.8 (4.8-10.8) X10*3/uL RBC 4.55 (4.20-5.50) X10*6/uL Hgb 11.8 L (12.0-16.0) g/dl Hct 36.7 L (37.0-47.0) % MCV 80.7 (80.0-98.0) fL MCH 25.9 L (27.0-33.0) pg MCHC 32.2 (31.0-35.0) g/dl RDW 15.0 (11.0-16.0) % Plt Count 395 (160-400) X10*3/uL MPV 9.7 (9.4-12.3) fL Immature Gran % (Auto) 0.3 (0.0-0.4) % Neut % (Auto) 51.1 (45-73) % Lymph % (Auto) 36.8 (20-40) % [place] % (Auto) 10.5 (2-11) % Eos % (Auto) 0.8 (0-4) % Baso % (Auto) 0.5 (0-2) % Lymph # (Auto) 2.9 (1.2-4.9) X10*3/uL [place] # (Auto) 0.8 (0.1-1.2) X10*3/uL Eos # (Auto) 0.1 (0.0-0.4) X10*3/uL Baso # (Auto) 0.0 (0.0-0.2) X10*3/uL Abs Immat Gran (auto) 0.02 (0.00-0.03) X10*3/uL Absolute Neuts (auto) 4.0 (2.0-8.3) x10*3/uL Absolute Nucleated RBC 0.000 (0.0-0.012) X10*3/uL Nucleated RBC % (auto) 0.0 (0.0-0.2) /100WBC D-Dimer High Sensitivty < 150 NG/ML Sodium 139 (135-145) mmol/L Potassium 4.5 (3.3-5.1) mmol/L Chloride 105 (96-108) mmol/L Carbon Dioxide 25 (22-29) mmol/L Anion Gap 14 (12-20) BUN 4 L (9-16) mg/dL Creatinine 0.69 (0.5-1.4) mg/dL Estim Creat Clear Calc 116.7 Estimated GFR > 60 Random Glucose 87 (60-115) mg/dL Calcium 10.1 D (8.4-10.2) mg/dL Troponin I High Sens (<3.5-17.0) ng/L B-Natriuretic Peptide (<100) pg/mL Lipase 11 (8-78) U/L COVID-19 (YAMILA) (Negative) COVID-19 Clin Com Influenza Type A (DEBBIE) (Negative) Influenza Type B (DEBBIE) (Negative) Influenza A & B Note S. pyogenes GrpA DEBBIE (Negative) 02/17/23 02/17/23 Range/Units 00:51 00:51 WBC (4.8-10.8) X10*3/uL RBC (4.20-5.50) X10*6/uL Hgb (12.0-16.0) g/dl Hct (37.0-47.0) % MCV (80.0-98.0) fL MCH (27.0-33.0) pg MCHC (31.0-35.0) g/dl RDW (11.0-16.0) % Plt Count (160-400) X10*3/uL MPV (9.4-12.3) fL Immature Gran % (Auto) (0.0-0.4) % Neut % (Auto) (45-73) % Lymph % (Auto) (20-40) % [place] % (Auto) (2-11) % Eos % (Auto) (0-4) % Baso % (Auto) (0-2) % Lymph # (Auto) (1.2-4.9) X10*3/uL [place] # (Auto) (0.1-1.2) X10*3/uL Eos # (Auto) (0.0-0.4) X10*3/uL Baso # (Auto) (0.0-0.2) X10*3/uL Abs Immat Gran (auto) (0.00-0.03) X10*3/uL Absolute Neuts (auto) (2.0-8.3) x10*3/uL Absolute Nucleated RBC (0.0-0.012) X10*3/uL Nucleated RBC % (auto) (0.0-0.2) /100WBC D-Dimer High Sensitivty NG/ML Sodium (135-145) mmol/L Potassium (3.3-5.1) mmol/L Chloride (96-108) mmol/L Carbon Dioxide (22-29) mmol/L Anion Gap (12-20) BUN (9-16) mg/dL Creatinine (0.5-1.4) mg/dL Estim Creat Clear Calc Estimated GFR Random Glucose (60-115) mg/dL Calcium (8.4-10.2) mg/dL Troponin I High Sens < 2.7 (<3.5-17.0) ng/L B-Natriuretic Peptide < 10 (<100) pg/mL Lipase (8-78) U/L COVID-19 (YAMILA) (Negative) COVID-19 Clin Com Influenza Type A (DEBBIE) (Negative) Influenza Type B (DEBBIE) (Negative) Influenza A & B Note S. pyogenes GrpA DEBBIE (Negative) Independent Interpretation I performed an independent interpretation of an: Plain X-Ray (No acute cardiopulmonary pathology.) Radiology Impression Discussion of test interpretation with radiology: I have reviewed the radiologist's reading. Discharge Plan Discharge Clinical Impression: Bronchitis, Pharyngitis Patient Disposition: Home, Self-Care Instructions: Pharyngitis (ED) Prescriptions: New azithromycin [Zithromax Z-Adria] 250 mg tablet See Rx Instructions .ROUTE .COMPLEX Qty: 6 0RF Rx Instructions: For 250 mg dose pack: take 500 mg today (day 1), then 250 mg for 4 days (days 2-5) prednisone 20 mg tablet 20 mg PO BID Qty: 10 0RF albuterol sulfate 90 mcg/actuation HFA aerosol inhaler 1 inh inhalation QID PRN (Reason: shortness of breath or wheezing) Qty: 8.5 0RF No Action cholecalciferol (vitamin D3) 50 mcg (2,000 unit) capsule 50 mcg PO DAILY Qty: 90 3RF desogestrel-ethinyl estradiol [Apri] 0.15-0.03 mg tablet 1 tab PO DAILY Qty: 84 0RF cefuroxime axetil 250 mg tablet 250 mg PO BID 7 Days Qty: 14 0RF aripiprazole 10 mg tablet 10 mg PO DAILY vilazodone [Viibryd] 20 mg tablet 20 mg PO DAILY aripiprazole 2 mg tablet 2 mg PO DAILY ondansetron 4 mg tablet,disintegrating 4 mg PO Q8H PRN (Reason: nausea and vomiting) Qty: 20 1RF pantoprazole 20 mg tablet,delayed release (DR/EC) 20 mg PO DAILY Qty: 90 3RF Referrals: Ruma Alvarado MD [Primary Care Provider] -
[2023-02-17 00:54] LABS: MANUAL DIFF FLAG NO
[2023-02-17 00:55] LABS: Basophils Percent Auto 0.5 % (0-2); Eosinophils Absolute Auto 0.1 X10*3/uL (0.0-0.4); Eosinophils Percent Auto 0.8 % (0-4); Hematocrit 36.7 % (37.0-47.0); Hemoglobin 11.8 g/dl (12.0-16.0); Imm Gran Abs Auto 0.02 X10*3/uL (0.00-0.03); Imm Gran Pct Auto 0.3 % (0.0-0.4); Lymphocytes Absolute Auto 2.9 X10*3/uL (1.2-4.9); Lymphocytes Percent Auto 36.8 % (20-40); Mean Corpuscular HGB Conc 32.2 g/dl (31.0-35.0); Mean Corpuscular Hemoglobin 25.9 pg (27.0-33.0); Mean Corpuscular Volume 80.7 fL (80.0-98.0); Mean Platelet Volume 9.7 fL (9.4-12.3); Monocytes Absolute Auto 0.8 X10*3/uL (0.1-1.2); Monocytes Percent Auto 10.5 % (2-11); Neutrophils Percent Auto 51.1 % (45-73); Platelet Count 395 X10*3/uL (160-400); Red Blood Count 4.55 X10*6/uL (4.20-5.50); White Blood Count 7.8 X10*3/uL (4.8-10.8)
[2023-02-17 01:07] LABS: Anion Gap 14 (12-20); Blood Urea Nitrogen 4 mg/dL (9-16); Calcium 10.1 mg/dL (8.4-10.2); Carbon Dioxide 25 mmol/L (22-29); Chloride 105 mmol/L (96-108); Creatinine Clr Calc Pharmacy 116.7; Estimated Glomerular Filt Rate > 60; Glucose Random 87 mg/dL (60-115); Lipase 11 U/L (8-78); Potassium 4.5 mmol/L (3.3-5.1); Sodium 139 mmol/L (135-145)
[2023-02-17 01:11] LABS: D Dimer High Sensitivity < 150 NG/ML
[2023-02-17 01:16] LABS: Troponin-I High Sensitivity < 2.7 ng/L (<3.5-17.0)
[2023-02-17 01:23] LABS: IDNOW Serial# 6674DD1D; Strep A Nucleic Acid Negative (Negative)
[2023-02-17 01:39] LABS: B Type Natriuretic Peptide < 10 pg/mL (<100)
[2023-02-17 02:01] VITALS: BP 106/69; PULSE 112; RESP 18; TEMP 36.5; O2SAT 100
== END 2023-02-17 02:05 | disposition home or self-care (01) ==
PROVIDERS: Emergency Provider Emergency Medicine; PCP Internal Medicine
DX: J40 Bronchitis, not specified as acute or chronic (principal); J02.9 Acute pharyngitis, unspecified; Z20.822 Contact with and (suspected) exposure to COVID-19; R06.02 Shortness of breath; Z79.899 Other long term (current) drug therapy
CPT/HCPCS: 36415; 71046; 80048; 83690; 83880; 84484; 85025; 85379; 87502; 87635; 87651; 93005; 99284

== ENCOUNTER 2023-02-20 09:35 | Emergency (ER) | payer OTHER, SELFPAY ==
[2023-02-20 09:46] VITALS: BP 134/92; PULSE 125; RESP 18; TEMP 36.6; O2SAT 95; BMI 31.8
[2023-02-20 10:35] VITALS: PULSE 117; TEMP 36.9; O2SAT 96
--- NOTE | 2023-02-20 10:56 | ED.SOB ---
HPI - SOB/Dyspnea General Chief Complaint: Dyspnea Stated Complaint: Cough Diff Breathing Time Seen by Provider: 02/20/23 10:22 Source: patient Mode of arrival: ambulatory Limitations: no limitations History of Present Illness HPI Narrative: Patient is a 22 year old female with a past medical history of orthostatic hypotension, migraine, and ovarian cyst presenting with 6 days of dyspnea, coughing, chest pain, and shortness of breath for 6 days. Patient presented to the ED on 02/17 for these complaints and was given prednisone and azithromycin. Patient reports she has had no relief taking these which is why she returned. Patient reports night sweats, nausea, and one incident of vomiting this AM. Patient denies fever, chills, weight changes, diarrhea, numbness, tingling, headache, vision changes, generalized weakness. Related Data Home Medications Medication Instructions Recorded Confirmed aripiprazole 10 mg tablet 10 mg PO DAILY 06/28/21 11/27/22 vilazodone 20 mg tablet (Viibryd) 20 mg PO DAILY 08/01/22 11/27/22 aripiprazole 2 mg tablet 2 mg PO DAILY 09/26/22 11/27/22 Previous Rx's Medication Instructions Recorded cefuroxime axetil 250 mg tablet 250 mg PO BID 7 days #14 tabs 12/08/22 cholecalciferol (vitamin D3) 50 50 mcg PO DAILY #90 caps 12/24/22 mcg (2,000 unit) capsule desogestrel 0.15 mg-ethinyl 1 tab PO DAILY #84 tabs 02/06/23 estradiol 0.03 mg tablet (Apri) ondansetron 4 mg disintegrating 4 mg PO Q8H PRN nausea and 02/12/23 tablet vomiting #20 tabs pantoprazole 20 mg tablet,delayed 20 mg PO DAILY #90 tabs 02/12/23 release albuterol sulfate 90 mcg/actuation 1 inh inhalation QID PRN shortness 02/17/23 aerosol inhaler of breath or wheezing #8.5 grams azithromycin 250 mg tablet See Rx Instructions PO .COMPLEX #6 02/17/23 (Zithromax Z-Adria) tabs prednisone 20 mg tablet 20 mg PO BID #10 tabs 02/17/23 albuterol sulfate 90 mcg/actuation 2 inh inhalation Q4-6H PRN 02/20/23 breath activated powder inhaler shortness of breath or wheezing #1 ea doxycycline hyclate 100 mg capsule 100 mg PO BID 10 days #20 caps 02/20/23 prednisone 20 mg tablet 40 mg PO DAILY 5 days #10 tabs 02/20/23 Allergies Allergy/AdvReac Type Severity Reaction Status Date / Time metoprolol AdvReac Diarrhea Verified 02/20/23 10:00 Review of Systems Review of Systems: Constitutional : No Weight loss, No Fever, No Chills, No Fatigue, No Malaise +night sweats ENT/Mouth : No sore throat, No Rhinorrhea Eyes: No Eye Pain, No Swelling, No Redness Cardiovascular : + Chest Pain, + SOB, No Dyspnea on Exertion, No Orthopnea, No Edema, No Palpitations Respiratory : + Cough, No Sputum, No Wheezing Gastrointestinal : + Nausea, + Vomiting, No Diarrhea, No Constipation, No abdominal Pain, No Hematochezia, No Melena Genitourinary : No Dysuria, No Urinary Frequency, No Hematuria, Musculoskeletal : No joint pain, No Myalgias, No Joint Swelling Skin : No Skin Lesions, No rash Neuro : No Weakness, No Numbness, No Dizziness, No Headache Psych : No Anxiety/Panic, No Depression All other systems reviewed and are negative Yes all other systems are reviewed and are negative [facility] Past Medical History Attestation statement: The following information was validated with the patient. Source: old records reviewed and nursing notes reviewed Medical History Epigastric abdominal pain Hx of ovarian cyst Left ovarian cyst Major depression in partial remission Migraine Orthostatic hypotension Supraventricular tachycardia by ECG Uses control Vitamin B12 deficiency Vitamin D deficiency Surgical History H/O removal of cyst Family History Family History Mother Bipolar disorder Mental health disorder Social History Social History Household Members: Family Household Members Other:: mother and MGF Housing: House Alcohol intake: never Patient Tobacco Use Status: Never used Tobacco e-Cigarette/Vaping Use: Never Used service: No Current occupational status: unemployed Cognitive needs: No Hearing needs: No Vision needs: No Physical Exam Vital Signs: Vital Signs: Last Vital Signs Temp 98.4 F 02/20/23 10:35 Pulse 117 H 02/20/23 10:35 Resp 18 02/20/23 09:46 BP 134/92 H 02/20/23 09:46 Pulse Ox 96 02/20/23 10:35 O2 Del Method Room Air 02/20/23 10:35 BMI result Body Mass Index 31.8 Medical Decision Making Lab Data 02/20/23 12:36 02/20/23 12:36 Labs: Lab Results 02/20/23 02/20/23 02/20/23 Range/Units 10:37 12:36 12:36 WBC 10.9 H (4.8-10.8) X10*3/uL RBC 4.80 (4.20-5.50) X10*6/uL Hgb 12.4 (12.0-16.0) g/dl Hct 38.3 (37.0-47.0) % MCV 79.8 L (80.0-98.0) fL MCH 25.8 L (27.0-33.0) pg MCHC 32.4 (31.0-35.0) g/dl RDW 15.4 (11.0-16.0) % Plt Count 400 (160-400) X10*3/uL MPV 9.7 (9.4-12.3) fL Immature Gran % (Auto) 0.6 H (0.0-0.4) % Neut % (Auto) 82.7 H (45-73) % Lymph % (Auto) 11.1 L (20-40) % [place] % (Auto) 5.3 (2-11) % Eos % (Auto) 0.0 (0-4) % Baso % (Auto) 0.3 (0-2) % Lymph # (Auto) 1.2 (1.2-4.9) X10*3/uL [place] # (Auto) 0.6 (0.1-1.2) X10*3/uL Eos # (Auto) 0.0 (0.0-0.4) X10*3/uL Baso # (Auto) 0.0 (0.0-0.2) X10*3/uL Abs Immat Gran (auto) 0.06 H (0.00-0.03) X10*3/uL Absolute Neuts (auto) 9.0 H (2.0-8.3) x10*3/uL Absolute Nucleated RBC 0.000 (0.0-0.012) X10*3/uL Nucleated RBC % (auto) 0.0 (0.0-0.2) /100WBC D-Dimer High Sensitivty < 150 NG/ML Sodium (135-145) mmol/L Potassium (3.3-5.1) mmol/L Chloride (96-108) mmol/L Carbon Dioxide (22-29) mmol/L Anion Gap (12-20) BUN (9-16) mg/dL Creatinine (0.5-1.4) mg/dL Estim Creat Clear Calc Estimated GFR Random Glucose (60-115) mg/dL Calcium (8.4-10.2) mg/dL Magnesium (1.6-2.6) mg/dL Total Bilirubin (0.0-1.0) mg/dL AST (5-31) U/L ALT (0-31) U/L Alkaline Phosphatase (39-117) U/L Troponin I High Sens (<3.5-17.0) ng/L Total Protein (6.5-8.0) g/dL Albumin (3.5-5.0) g/dL COVID-19 ([facility]) Negative (Negative) COVID-19 Clin Com See Note 02/20/23 02/20/23 Range/Units 12:36 12:36 WBC (4.8-10.8) X10*3/uL RBC (4.20-5.50) X10*6/uL Hgb (12.0-16.0) g/dl Hct (37.0-47.0) % MCV (80.0-98.0) fL MCH (27.0-33.0) pg MCHC (31.0-35.0) g/dl RDW (11.0-16.0) % Plt Count (160-400) X10*3/uL MPV (9.4-12.3) fL Immature Gran % (Auto) (0.0-0.4) % Neut % (Auto) (45-73) % Lymph % (Auto) (20-40) % [place] % (Auto) (2-11) % Eos % (Auto) (0-4) % Baso % (Auto) (0-2) % Lymph # (Auto) (1.2-4.9) X10*3/uL [place] # (Auto) (0.1-1.2) X10*3/uL Eos # (Auto) (0.0-0.4) X10*3/uL Baso # (Auto) (0.0-0.2) X10*3/uL Abs Immat Gran (auto) (0.00-0.03) X10*3/uL Absolute Neuts (auto) (2.0-8.3) x10*3/uL Absolute Nucleated RBC (0.0-0.012) X10*3/uL Nucleated RBC % (auto) (0.0-0.2) /100WBC D-Dimer High Sensitivty NG/ML Sodium 138 (135-145) mmol/L Potassium 4.1 (3.3-5.1) mmol/L Chloride 104 (96-108) mmol/L Carbon Dioxide 23 (22-29) mmol/L Anion Gap 15 (12-20) BUN 8 L (9-16) mg/dL Creatinine 0.65 (0.5-1.4) mg/dL Estim Creat Clear Calc 123.9 Estimated GFR > 60 Random Glucose 100 (60-115) mg/dL Calcium 9.5 (8.4-10.2) mg/dL Magnesium 2.1 (1.6-2.6) mg/dL Total Bilirubin 0.5 (0.0-1.0) mg/dL AST 18 (5-31) U/L ALT 20 (0-31) U/L Alkaline Phosphatase 86 (39-117) U/L Troponin I High Sens < 2.7 (<3.5-17.0) ng/L Total Protein 7.3 (6.5-8.0) g/dL Albumin 4.1 (3.5-5.0) g/dL COVID-19 ([facility]) (Negative) COVID-19 Clin Com Discharge Plan Discharge Clinical Impression: Bronchitis Patient Disposition: Home, Self-Care Instructions: Acute Bronchitis (ED) Additional Instructions: Take your medications as prescribed. If you were prescribed antibiotics today, it is important that you take your medication to their entirety, do not skip any doses, do not finish them early. Follow-up with your primary care provider this week. Return to the emergency department with new or worsening symptoms. Such as fevers, chills, chest pain, shortness of breath, nausea, vomiting, dizziness, headache, vision changes, lethargy In case of emergency call 911 Prescriptions: New doxycycline hyclate 100 mg capsule 100 mg PO BID 10 Days Qty: 20 0RF prednisone 20 mg tablet 40 mg PO DAILY 5 Days Qty: 10 0RF albuterol sulfate 90 mcg/actuation aerosol powdr breath activated 2 inh inhalation Q4-6H PRN (Reason: shortness of breath or wheezing) Qty: 1 0RF No Action cholecalciferol (vitamin D3) 50 mcg (2,000 unit) capsule 50 mcg PO DAILY Qty: 90 3RF desogestrel-ethinyl estradiol [Apri] 0.15-0.03 mg tablet 1 tab PO DAILY Qty: 84 0RF cefuroxime axetil 250 mg tablet 250 mg PO BID 7 Days Qty: 14 0RF azithromycin [Zithromax Z-Adria] 250 mg tablet See Rx Instructions .ROUTE .COMPLEX Qty: 6 0RF Rx Instructions: For 250 mg dose pack: take 500 mg today (day 1), then 250 mg for 4 days (days 2-5) prednisone 20 mg tablet 20 mg PO BID Qty: 10 0RF albuterol sulfate 90 mcg/actuation HFA aerosol inhaler 1 inh inhalation QID PRN (Reason: shortness of breath or wheezing) Qty: 8.5 0RF aripiprazole 10 mg tablet 10 mg PO DAILY vilazodone [Viibryd] 20 mg tablet 20 mg PO DAILY aripiprazole 2 mg tablet 2 mg PO DAILY ondansetron 4 mg tablet,disintegrating 4 mg PO Q8H PRN (Reason: nausea and vomiting) Qty: 20 1RF pantoprazole 20 mg tablet,delayed release (DR/EC) 20 mg PO DAILY Qty: 90 3RF Referrals: Ruma Alvarado MD [Primary Care Provider] - 2 days Stand Alone Forms: Work/School Release Interventions: ED Discharge Assessment Last Done: 02/20/23 13:11 Discharge Date/Time: 02/20/23 13:12
--- NOTE | 2023-02-20 11:24 | MHC.EDTECH ---
Patient decided the she did not want her blood drawn today stating I had my blood drawn last time I was here and I almost flat lined LAM[facility] [place] to speak with patient.
== END 2023-02-20 13:12 | disposition home or self-care (01) ==
PROVIDERS: Emergency Provider Emergency Medicine; PCP Internal Medicine
DX: J40 Bronchitis, not specified as acute or chronic (principal); R06.02 Shortness of breath; Z20.822 Contact with and (suspected) exposure to COVID-19
CPT/HCPCS: 36415; 71046; 80053; 83735; 84484; 85025; 85379; 87635; 93005; 99283; 99284

== ENCOUNTER 2023-05-02 15:32 | Emergency (ER) | payer OTHER, SELFPAY ==
[2023-05-02 15:45] VITALS: BP 122/80; PULSE 107; O2SAT 98
[2023-05-02 15:51] VITALS: BP 116/75; PULSE 89; RESP 18; TEMP 36.8; O2SAT 97; BMI 32.9
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
== END 2023-05-02 17:07 | disposition home or self-care (01) ==
PROVIDERS: Emergency Provider Internal Medicine; PCP Internal Medicine
DX: F41.9 Anxiety disorder, unspecified (principal)
CPT/HCPCS: 99282

== ENCOUNTER 2023-05-09 19:13 | Emergency (ER) | payer OTHER, SELFPAY ==
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
[2023-05-09 19:51] VITALS: BP 133/94; PULSE 100; RESP 18; TEMP 36.6; O2SAT 99; BMI 24.5
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
== END 2023-05-10 00:05 | disposition left against medical advice (07) ==
LOC: HO.ED 05-10 00:03
PROVIDERS: Emergency Provider Emergency Medicine; PCP Internal Medicine
DX: Z04.1 Encounter for examination and observation following transport accident (principal); M54.2 Cervicalgia
CPT/HCPCS: 72125; 99281; 99284

== ENCOUNTER 2023-06-21 13:19 | Outpatient (AMB) | payer OTHER, SELFPAY ==
--- NOTE | 2023-06-21 13:29 | A.OFFVIS_ITS ---
Intake Vital Signs 06/21/23 13:31 Height 5 ft Weight 170 lb BMI 33.2 BP 122/68 Blood Pressure Location Lt brachial Position Sitting Pulse 112 H Intake Visit Reasons: 4 mnth follow up Intake Note: Patient 4 month follow up. Patient cc: nauseas on and off, denies any other GI issues. 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 Discussed with patient avoiding dietary triggers in late night snacking. Staying upright for minimum 3 hours after meals discussed with patient. Will do RAST allergen test. Patient might have intolerance to certain food. Avoid lactose and gluten for now as this could be the culprit Postprandial epigastric pain Postprandial epigastric discomfort occasionally depending on diet. Stay away from food that is spicy and fried. Avoid late night snacking. Nausea Reports occasional nausea specially when she has her period. Will send her script for Yumiko. I will see patient in 4 months, sooner on as needed basis. Patient is agreeable to this plan and verbalizes understanding of instructions. She was given the opportunity to ask questions and all questions answered. Patient's mother was also present during the appointment and is also agreeable to current plan. ? Thank you for allowing me to participate in her care Plan Orders Orders Rast Allergen 02/12/23 K21.9 - Gastro-esophageal reflux disease without esophagitis Medications New ondansetron 4 mg PO Q8H PRN 20 tabs 1RF nausea and vomiting R11.0 - Nausea Refilled pantoprazole 20 mg PO DAILY 90 tabs 3RF Discontinued famotidine Discontinued Reason: Doctor's Order 20 mg PO BID 10 days 20 tabs 0RF TODAY'S VISIT: Patient is here today for follow-up. Patient reports that she has been doing little better. Patient states that she is avoiding dietary triggers. Stopped taking pantoprazole. Patient reports that occasionally she will have dyspepsia depending on what she eats. Patient is avoiding certain food. Patient is staying away from lactose. Breast allergen test did not show any food that patient might be sensitive to. Patient is trying to follow low FODMAP diet. Patient denies any other GI concerning symptoms. FORMERLY [facility], [facility] Medical History Epigastric abdominal pain Hx of ovarian cyst Left ovarian cyst Major depression in partial remission Migraine Orthostatic hypotension Supraventricular tachycardia by ECG Uses control Vitamin B12 deficiency Vitamin D deficiency Surgical History H/O removal of cyst Family History Mother Bipolar disorder Mental health disorder Household Members: Family Household Members Other:: mother and MGF Housing: House Alcohol intake: never Patient Tobacco Use Status: Never used Tobacco e-Cigarette/Vaping Use: Never Used service: No Current occupational status: unemployed Cognitive needs: No Hearing needs: No Vision needs: No Female Reproductive History Menstrual Age of Menarche: 14 Review of Systems Const Denies weight gain and Denies weight loss ENT Reports no additional complaints, Denies dysphagia and Denies odynophagia Card Reports no additional complaints Resp Reports no additional complaints GI Denies abdominal pain, Denies belching, Denies melena, Denies bloating, Denies change in bowel habits, Denies dysphagia, Denies excessive flatus, Denies dyspepsia, Reports heartburn, Denies diarrhea, Denies loose stools, Denies nausea, Denies odynophagia and Denies vomiting Reports no additional complaints Musc Reports no additional complaints Neuro Reports no additional complaints Psych Reports no additional complaints Endo Reports no additional complaints Physical Exam Vital Signs: Last Vital Signs Pulse 112 H 06/21/23 13:31 BP 122/68 06/21/23 13:31 BMI result Body Mass Index 33.2 Const General: healthy appearing, no acute distress and well developed Nutritional Appearance: obese Orientation/consciousness: patient oriented x3 HEENT Head: Yes normal to inspection, Yes normocephalic and Yes atraumatic Face and sinus: Yes normal facial exam Mouth: Normal oral and palatal mucosa present Throat: Yes posterior oropharynx normal, Yes tonsils normal and Yes uvula midline Eyes General: appearance normal, both eyes and all related structures Neck Neck: Yes normal visual inspection, Yes full ROM and Yes trachea midline Thyroid: Thyroid normal Resp Effort & Inspection: normal respiratory effort, able to speak in complete sentences, no tracheal deviation and symmetric chest movement Auscultation: clear to auscultation bilaterally Cardio Rate: regular rate Heart sounds: S1 normal heart sound present and S2 normal heart sound present GI Inspection: Yes normal to inspection, No distended and Yes obesity Palpation (GI): Soft to palpation, not firm, nontender and No hepatosplenomegaly present Auscultation: normal bowel sounds General: Yes no CVA tenderness Back/Spine/Pelvis Back: no CVA tenderness Skin General skin exam: elasticity normal, turgor normal and dry skin Neuro General: patient oriented x3 Psych Appearance: grossly normal Mental Status: mental status grossly normal Assessment & Plan Assessment & Plan (1) GERD (gastroesophageal reflux disease): Code(s): K21.9 - Gastro-esophageal reflux disease without esophagitis Qualifiers: Esophagitis presence: esophagitis presence not specified Qualified Code(s): K21.9 - Gastro-esophageal reflux disease without esophagitis (2) Postprandial epigastric pain: Code(s): R10.13 - Epigastric pain (3) Nausea: Code(s): R11.0 - Nausea Plan Patient can take famotidine at bedtime. Patient was encouraged to continue taking vitamin-D. Patient will continue avoid dietary triggers. Avoid late night snacking. Staying upright for minimal 3 hours after meals discussed with patient. Occasional nausea, requesting script for Zofran. Patient reports that she uses very infrequently. I will see patient in 3 months, if she continues to have epigastric pain, nausea and dyspepsia patient will be sent for upper endoscopy. Both patient and her mother are agreeable to plan of care and verbalizes understanding of instructions. They were given the opportunity to ask questions and all questions answered. Thank you for allowing me to participate in her care Medications: New famotidine (Pepcid) 20 mg PO BEDTIME 30 tabs 3RF K21.9 - Gastro-esophageal reflux disease without esophagitis cholecalciferol (vitamin D3) 50 mcg PO DAILY 30 tabs 5RF Refilled ondansetron 4 mg PO Q8H PRN 20 tabs 1RF nausea and vomiting R11.0 - Nausea Discontinued cefuroxime axetil Discontinued Reason: Patient Completed Course 250 mg PO BID 7 days 14 tabs 0RF azithromycin Discontinued Reason: Patient Completed Course For 250 mg dose pack: take 500 mg today (day 1), then 250 mg for 4 days (days 2-5) 6 tabs 0RF prednisone Discontinued Reason: Patient Completed Course 20 mg PO BID 10 tabs 0RF doxycycline hyclate Discontinued Reason: Doctor's Order 100 mg PO BID 10 days 20 caps 0RF albuterol sulfate 90 mcg/actuation Discontinued Reason: Patient Completed Course 1 inh inhalation QID PRN 8.5 grams 0RF shortness of breath or wheezing albuterol sulfate 90 mcg/actuation Discontinued Reason: Patient Completed Course 2 inhalations inhalation Q4- 6H PRN 1 ea 0RF shortness of breath or wheezing prednisone Discontinued Reason: Patient no longer taking 40 mg (2 x 20 mg) PO DAILY 5 days 10 tabs 0RF cholecalciferol (vitamin D3) Discontinued Reason: Doctor's Order 50 mcg PO DAILY 90 caps 3RF R79.89 - Other specified abnormal findings of blood chemistry Coding Level of Care Code Est Pt Level 3 (08497) Diagnoses Gastroesophageal reflux disease, unspecified whether esophagitis present K21.9 Esophagitis presence: esophagitis presence not specified Postprandial epigastric pain R10.13 Nausea R11.0 Time Spent (min) 30 Comment 20 minutes spent with patient and additional 10 minutes spent reviewing her records
[2023-06-21 13:31] VITALS: BP 122/68; PULSE 112; BMI 33.2
== END 2023-06-21 14:18 | disposition home or self-care (01) ==
PROVIDERS: PCP Internal Medicine; Visit Provider Nurse Practitioner Family
DX: K21.9 Gastro-esophageal reflux disease without esophagitis (principal); R10.13 Epigastric pain; R11.0 Nausea
CPT/HCPCS: 99213

== ENCOUNTER → 2023-06-21 13:19 | Outpatient (BNVA) | payer OTHER, SELFPAY | PROVIDERS: PCP Internal Medicine; Visit Provider Nurse Practitioner Family | DX: K21.9 Gastro-esophageal reflux disease without esophagitis (principal); R10.13 Epigastric pain; R11.0 Nausea | CPT/HCPCS: 99212 ==

== ENCOUNTER 2023-09-12 13:10 | Outpatient (AMB) | payer OTHER, SELFPAY ==
[2023-09-12 13:18] VITALS: BP 110/72; PULSE 110; TEMP 36.3; O2SAT 99; BMI 31.0
--- NOTE | 2023-09-12 13:18 | AM.OFFWIN_ITS ---
Intake Vital Signs 09/12/23 13:18 Height 5 ft Weight 159 lb BMI 31.0 BP 110/72 Blood Pressure Location Lt brachial Position Sitting Pulse 110 H Pulse Source Pulse Oximeter Temp 97.4 F Temp Source Temporal Artery Scan Pulse Oximetry (%) 99 Oxygen Delivery Method Room Air Intake Visit Reasons: EP ? /Nausea Intake Note: pt is here today for and nausea started today Patient Tobacco Use Status: Never used Tobacco Allergies metoprolol Adverse Reaction (Verified 09/12/23 13:29) Diarrhea Do you need a note to return to daycare/school/sports/work: No HPI EP ? /Nausea HPI Details 22 year old female [facility] mother for a sick visit. She reports several day history of nausea with a few episodes of vomiting. Also reports 1 episode of diarrhea last night. Has had some abdominal cramping. Continues to tolerate food and fluids well with good appetite. No difficulties voiding. She reports period is 4 days late and she did have unprotected intercourse a couple of weeks ago. Takes daily oral control. FORMERLY [facility] Medical History Contraception management Vitamin D deficiency Vitamin B12 deficiency Uses control Hx of ovarian cyst Epigastric abdominal pain Orthostatic hypotension Supraventricular tachycardia by ECG Major depression in partial remission Left ovarian cyst Migraine Surgical History H/O removal of cyst Family History Mother Bipolar disorder Mental health disorder Social History Household Members: Family Household Members Other:: mother and MGF Housing: House Alcohol intake: never Patient Tobacco Use Status: Never used Tobacco e-Cigarette/Vaping Use: Never Used service: No Current occupational status: unemployed Cognitive needs: No Hearing needs: No Vision needs: No Female Reproductive History Menstrual Age of Menarche: 14 Review of Systems Const All systems reviewed & are unremarkable except as noted in HPI and below Physical Exam Vital Signs: Last Vital Signs Temp 97.4 F 09/12/23 13:18 Pulse 119 H 09/12/23 13:18 BP 110/72 09/12/23 13:18 Pulse Ox 99 09/12/23 13:18 Oxygen Delivery Method Room Air 09/12/23 13:18 BMI result Body Mass Index 31.0 Const General: cooperative and no acute distress Nutritional Appearance: overweight Resp Effort & Inspection: normal respiratory effort Auscultation: clear to auscultation bilaterally Cardio Rate: regular rate Rhythm: regular rhythm GI Other: Soft, nondistended, nontender to palpation, no hepatosplenomegaly Inspection: Yes normal to inspection Auscultation: normal bowel sounds Skin General skin exam: no rashes or lesions noted Extrem General: Yes no clubbing, cyanosis or edema Psych Appearance: grossly normal Mental Status: mental status grossly normal Speech and movement: Normal speech and movement present Results AMB Test Urine AMB Test Urine Negative Last Edit by Lisa Meyers CMA on 13:36 Results Reviewed Results Reviewed: Laboratory Last Values Tst Clinic Negative 09/12/23 13:34 Assessment & Plan Assessment & Plan (1) Nausea: Code(s): R11.0 - Nausea Plan: Likely viral illness. Advised Zofran and eating a bland diet and advancing as tolerated. Patient states she has Zofran at home she can take. Advised to return to the clinic if she does not improve with time and conservative measures, or if symptoms worsen or if she is not able to tolerate food/fluids. She agrees to plan. (2) Late menstruation: Code(s): N92.6 - Irregular menstruation, unspecified Plan: Urine test in the office was negative. Advised to purchase otc UPT in another 2 days if she still does not get her period by then, as it may be too early at this point to detect hcg. Orders: Orders AMB HCG Urine Test Today Z32.02 - Encounter for test, result negative Coding Level of Care Code Est Pt Level 3 (10146) Diagnoses Nausea R11.0 Late menstruation N92.6
== END 2023-09-12 14:13 | disposition home or self-care (01) ==
PROVIDERS: PCP Internal Medicine; Visit Provider Nurse Practitioner Family
DX: R11.0 Nausea (principal); N92.6 Irregular menstruation, unspecified; Z32.02 Encounter for pregnancy test, result negative
CPT/HCPCS: 81025; 99213

== ENCOUNTER 2023-09-22 04:10 | Emergency (ER) | payer OTHER, SELFPAY ==
[2023-09-22] VITALS (7 sets, daily range): BP systolic 123–146; BP diastolic 73–93; PULSE 87–134; RESP 12–20; TEMP 36.6–36.9; O2SAT 97–100; BMI 31.0
--- NOTE | 2023-09-22 | ECG_ITS ---
Test Reason : overdose Blood Pressure : / mmHG Vent. Rate : 111 BPM Atrial Rate : 111 BPM P-R Int : 178 ms QRS Dur : 082 ms QT Int : 306 ms P-R-T Axes : 042 043 017 degrees QTc Int : 416 ms Sinus tachycardia Possible Left atrial enlargement Borderline ECG When compared with ECG of 20-FEB-2023 11:09, T wave amplitude has decreased in Anterior leads Referred By: Generic ED Physician Electronically Signed By:JOHANNA TORRES MD
--- NOTE | 2023-09-22 04:20 | ED_ITS ---
HPI - Psych General Stated Complaint: OD Medication SI Time Seen by Provider: 09/22/23 04:15 Source: patient, family and old records reviewed Mode of arrival: ambulatory Limitations: no limitations History of Present Illness HPI Narrative: 22 yo female with PMH of depression, orthostatic hypotension, migraines here with c/o needing to sleep also depression and SI - in attempt tonight took 75mg of benadryl prior to arrival to kill herself felt dizzy with elevated HR. MD complaint: suicidal ideation and feels depressed Onset (ago): week(s) Duration: getting worse History of same: Yes Relieving factors: none Exacerbating factors: none Context: significant life stressor Associated psychiatric symptoms: depression and suicidal ideation Associated symptoms: denies other symptoms Treatments prior to arrival: none If self harm: admits thoughts of self harm, has plan, has acted on plan and intentional overdose Related Data Home Medications Medication Instructions Recorded Confirmed dextromethorphan IR 45 1 tab PO QAM 06/21/23 mg-bupropion ER 105 mg biphasic tablet (Auvelity) lorazepam 0.5 mg tablet 0.5 mg PO DAILY 09/12/23 Previous Rx's Medication Instructions Recorded pantoprazole 20 mg tablet,delayed 20 mg PO DAILY #90 tabs 02/12/23 release cholecalciferol (vitamin D3) 50 50 mcg PO DAILY #30 tabs 06/21/23 mcg (2,000 unit) chewable tablet desogestrel 0.15 mg-ethinyl 1 tab PO DAILY #84 tabs 08/04/23 estradiol 0.03 mg tablet (Apri) Allergies Allergy/AdvReac Type Severity Reaction Status Date / Time metoprolol AdvReac Diarrhea Verified 09/12/23 13:29 Review of Systems Review of Systems: Constitutional : No Fever, No Chills ENT/Mouth : No Ear Pain, No Nasal Congestion, No sore throat Eyes: No Eye Pain, No Swelling, No Redness Cardiovascular : No Chest Pain, No SOB Respiratory : No Cough, No Sputum, No Dyspnea Gastrointestinal : No Nausea, No Vomiting, No Diarrhea, No Hematochezia, No Melena Genitourinary : No Dysuria, No Urinary Frequency, No Hematuria Musculoskeletal : No Myalgias Skin : No Skin Lesions, No rash Neuro : No Weakness, No Numbness, No Paresthesias, No Dizziness, No Headache Psych : positive Anxiety, positive Depression, positive SI no HI Heme/Lymph: No Lymphadenopathy Endocrine : No Polyuria, No Polydipsia All other systems reviewed and are negative [facility] Past Medical History Attestation statement: The following information was validated with the patient. Source: old records reviewed Medical History Contraception management Vitamin D deficiency Vitamin B12 deficiency Uses control Hx of ovarian cyst Epigastric abdominal pain Orthostatic hypotension Supraventricular tachycardia by ECG Major depression in partial remission Left ovarian cyst Migraine Surgical History H/O removal of cyst Family History Family History Mother Bipolar disorder Mental health disorder Social History Social History Household Members: Family Household Members Other:: mother and MGF Housing: House Alcohol intake: never Patient Tobacco Use Status: Never used Tobacco e-Cigarette/Vaping Use: Never Used service: No Current occupational status: unemployed Cognitive needs: No Hearing needs: No Vision needs: No Physical Exam Vital Signs: Appearance: Alert. Oriented X3. No acute distress. Eyes: Pupils equal, round and reactive to light. ENT: Pharynx normal. Neck: Normal inspection. Neck supple. CVS: Normal heart rate and rhythm. Pulses normal. Respiratory: No respiratory distress. Breath sounds normal. Abdomen: Soft and nontender. Skin: Skin warm and dry. Normal skin color. Normal skin turgor. Extremities: No lower extremity edema. No calf ttp Neuro: Oriented X 3. No motor deficit. No sensory deficit. CN 2-12 intact Course Course Course Narrative: Physician observation started at 443am Patient placed in physician observation because the patient needed more time for CARE team to assess the need for psych admission. At the time observation was started the patient's vitals were stable, patient is alert and oriented but anxious, Neuro: nonfocal, CV RRR, Lungs clear Medical Decision Making Medical Decision Making [facility] Narrative: 22 yo female with PMH of depression, orthostatic hypotension, migraines here with SI attempted by taking 75mg of benadryl though I think she is having more anxiety from attempting and now even states she is relieved it won't kill her at this time will need labs, EKG, CARE team consult Differential Diagnosis Differential Diagnoses: The differential diagnosis associated with the presentation includes Admission/Observation Consideration of admission/observation: Escalation of care including admission/observation considered observe until cleared by CARE team Lab Data MDM Lab Attestation statement: I reviewed the patient's lab results. Independent Interpretation I performed an independent interpretation of an: EKG Interpretation: Rate: 111 Rhythm: sinus tachycardia [place]: normal Normal P waves. Normal SU[place]. Normal QRS complex. ST T wave : normal no RODRIGO qTC: 416 prior studies: no acute ischemia The study has been interpreted contemporaneously by me. . Independent Historian Clinical information obtained from an independent historian. History obtained from or confirmed by: Parent External Record Review External record reviewed: Inpatient record Discharge Plan Discharge Clinical Impression: Depression with suicidal ideation Patient Disposition: Still a Patient Prescriptions: No Action desogestrel-ethinyl estradiol [Apri] 0.15-0.03 mg tablet 1 tab PO DAILY Qty: 84 0RF lorazepam 0.5 mg tablet 0.5 mg PO DAILY pantoprazole 20 mg tablet,delayed release (DR/EC) 20 mg PO DAILY Qty: 90 3RF Auvelity 45-105 mg tablet,IR,delayed rel,biphasic 1 tab PO QAM cholecalciferol (vitamin D3) 50 mcg (2,000 unit) tablet,chewable 50 mcg PO DAILY Qty: 30 5RF
[2023-09-22 04:33] LABS: MANUAL DIFF FLAG NO
[2023-09-22 04:34] LABS: Basophils Percent Auto 0.4 % (0-2); Eosinophils Percent Auto 0.2 % (0-4); Hematocrit 36.5 % (37.0-47.0); Hemoglobin 11.9 g/dl (12.0-16.0); Imm Gran Abs Auto 0.02 X10*3/uL (0.00-0.03); Imm Gran Pct Auto 0.2 % (0.0-0.4); Lymphocytes Absolute Auto 2.5 X10*3/uL (1.2-4.9); Mean Corpuscular HGB Conc 32.6 g/dl (31.0-35.0); Mean Corpuscular Hemoglobin 26.4 pg (27.0-33.0); Mean Corpuscular Volume 80.9 fL (80.0-98.0); Mean Platelet Volume 9.8 fL (9.4-12.3); Monocytes Absolute Auto 0.8 X10*3/uL (0.1-1.2); Monocytes Percent Auto 7.7 % (2-11); Neutrophils Absolute Auto 6.7 x10*3/uL (2.0-8.3); Neutrophils Percent Auto 66.5 % (45-73); Platelet Count 387 X10*3/uL (160-400); Red Blood Count 4.51 X10*6/uL (4.20-5.50); Red Cell Distribution Width 15.7 % (11.0-16.0)
[2023-09-22 04:45] LABS: COVID-19 Test Negative (Negative); IDNOW Serial# 152EDE1D
--- NOTE | 2023-09-22 04:51 | PC.NURSE ---
Pt aox4, mom at the bedside. Reports taking (3) Benadryl 25mg tabs 30 min vessel captain as an SI attempt. Pt denies SI/HI at this time. Sinus tach on monitor. Breaths even regular and unlabored. Speech clear and appropriate. Skin wpd. Pt able to ambulate from wheelchair to stretcher with no assistance. Calm and cooperative. Changed into hospital attire. Unable to provide urine sample at this time.
[2023-09-22 04:58] LABS: Acetaminophen LAB < 3 mcg/mL (<30); Salicylate < 5.0 mg/dL (15-30)
[2023-09-22 05:03] LABS: Alanine Aminotransferase 9 U/L (0-31); Albumin Level 3.5 g/dL (3.5-5.0); Alkaline Phosphatase 74 U/L (39-117); Anion Gap 15 (12-20); Aspartate Amino Transferase 15 U/L (5-31); Bilirubin Direct 0.1 mg/dL (0.0-0.5); Bilirubin Total 0.3 mg/dL (0.0-1.0); Blood Urea Nitrogen 5 mg/dL (9-16); Calcium 9.1 mg/dL (8.4-10.2); Carbon Dioxide 19 mmol/L (22-29); Chloride 108 mmol/L (96-108); Creatinine Clr Calc Pharmacy 107.4; Estimated Glomerular Filt Rate > 60; Ethanol < 10 mg/dL; Glucose Random 104 mg/dL (60-115); HCG Quantitative < 2 mIU/mL; Potassium 3.8 mmol/L (3.3-5.1); Sodium 138 mmol/L (135-145); Total Protein 6.7 g/dL (6.5-8.0)
[2023-09-22 05:42] LABS: Amphetamine Screen Urine Not Detected (Not Detect); Barbiturates, Urine Not Detected (Not Detect); Benzodiazepines Screen Urine Not Detected (Not Detect); Cannabinoid Screen Urine Not Detected (Not Detect); Cocaine Screen Urine Not Detected (Not Detect); Fentanyl, urine Not Detected (Not Detect); Opiate Screen Urine Not Detected (Not Detect); Phencyclidine Screen Urine Not Detected (Not Detect)
--- NOTE | 2023-09-22 07:56 | PC.NURSE ---
assumed care of pt at 0700. pt a&o x4, calm, and cooperative. pt resting quietly on stretcher with mom at bedside. 1:1 sitter present for pt safety. pt refused breakfast due to being picky . asking for saltines. provided. rr even/unlabored. call neely within reach. plan of care ongoing.
[2023-09-22] MEDS: hydrOXYzine HCL 50 MG TABLET PO (09:00)
--- NOTE | 2023-09-22 09:04 | PC.NURSE ---
pt found to be tachy on monitor and dry heaving. HR 167 and then in 140s-150s. pt stating it's her anxiety, however sts she doesn't take anything at home currently for it due to insurance issues. Dr. Rudolph aware of situation and ordered atarax for pt. pt medicated per oct. HR now down to high 90s-low 100s. wctm. 1:[address] for pt safety[address] mom at bedside. plan of care ongoing.
--- NOTE | 2023-09-22 10:02 | PC.NURSE ---
pt with positive effect from atarax. pt sleeping, rr even/unlabroed, in no apparent distress. HR in low 90s.
--- NOTE | 2023-09-22 11:22 | PC.NURSE ---
pt starting to get agitated/anxious again waiting for care team. pt sts she is not SI anymore and I just want to go home and get help for myself! I've been waiting to be seen by care team since last night! t/w called over to care team who is out of office at moment. left message with staff from admissions.
--- NOTE | 2023-09-22 12:56 | PC.NURSE ---
pt with episode of N/V and tachycardia up to 180. pt also reporting 9/10 head and chest pain. full set vitals obtained and documented. Dr. Rudolph notified and aware. HR now down to 120.
[2023-09-22] MEDS: Ondansetron ODT 4 MG TAB.RAPDIS TRANSLINGU (13:06)
--- NOTE | 2023-09-22 13:22 | PC.NURSE ---
pt medicated per oct for nausea. pt refused tylenol at moment due to empty stomach and nausea.
[2023-09-22] MEDS: 0.9 % Sodium Chloride 1,000 ML 999 ML IV (14:36)
[2023-09-22] MEDS: ondansetron HCL 4 MG/2 ML VIAL IVPUSH (14:37)
--- NOTE | 2023-09-22 14:45 | PC.NURSE ---
20G IV placed to RAC. fluids running and pt medicated per mar. once pt able to tolerate PO, will medicate with PO medications. 1:1 sitter at bedside. plan of care ongoing.
--- NOTE | 2023-09-22 16:14 | PC.NURSE ---
care team at bedside.
--- NOTE | 2023-09-22 17:07 | PC.NURSE ---
pt refusing po medications due to upset stomach. pt given renetta puneet and saltines as po trial. mom and boyfriend at bedside. 1:[address] plan of care ongoing.
== END 2023-09-22 18:39 | disposition home or self-care (01) ==
PROVIDERS: Emergency Provider Emergency Medicine; PCP Internal Medicine
DX: F33.1 Major depressive disorder, recurrent, moderate (principal); T45.0X2A Poisoning by antiallergic and antiemetic drugs, intentional self-harm, initial encounter; Y92.89 Other specified places as the place of occurrence of the external cause; R45.851 Suicidal ideations; F41.9 Anxiety disorder, unspecified; R00.0 Tachycardia, unspecified; Z11.52 Encounter for screening for COVID-19; Z79.899 Other long term (current) drug therapy
CPT/HCPCS: 80048; 80076; 80143; 80179; 80307; 83735; 84702; 85025; 87635; 93005; 96361; 96374; 99285; J2405; S9485

== ENCOUNTER → 2023-09-22 04:20 | Outpatient (BNV) | payer OTHER, SELFPAY | PROVIDERS: Emergency Provider Emergency Medicine; PCP Internal Medicine; Visit Provider Internal Medicine Cardiovascular Disease | DX: R00.0 Tachycardia, unspecified (principal); I51.7 Cardiomegaly | CPT/HCPCS: 93010 ==

== ENCOUNTER 2023-09-28 18:13 | Emergency (ER) | payer OTHER, SELFPAY ==
--- NOTE | ~2023-09-28 | XR_ITS ---
EXAMINATION: XR CHEST 2 VIEWS CLINICAL INFORMATION: Cough and shortness of breath. COMPARISON: Prior chest radiographs, most recently 02/20/2023. TECHNIQUE: Frontal and lateral views of the chest were obtained. FINDINGS: The heart, great vessels, pulmonary vasculature and mediastinum are normal. The lungs show no focal infiltrate, effusion or pneumothorax. There is no acute osseous abnormality. XR/XR chest 2V IMPRESSION: No active cardiopulmonary disease.
--- NOTE | 2023-09-28 18:29 | ED_ITS ---
HPI - URI/Sore Throat General Chief Complaint: General Medical Stated Complaint: Flu like symptoms, weakness Time Seen by Provider: 09/28/23 18:18 Source: patient Mode of arrival: ambulatory Limitations: no limitations History of Present Illness HPI Narrative: Patient is a 22-year-old female who presents emergency department via EMS for evaluation. She reports that her significant other was ill with flu-like symptoms 2 days ago and she was taking care of him. She sent him home yesterday as she began developing symptoms and she reports ?I have a bad system and I get severely sick very easily?. She reports that she has been experiencing body aches, shortness of breath, cough, nausea with bilious emesis, generalized abdominal pain. Related Data Home Medications Medication Instructions Recorded Confirmed dextromethorphan IR 45 1 tab PO QAM 06/21/23 mg-bupropion ER 105 mg biphasic tablet (Auvelity) lorazepam 0.5 mg tablet 0.5 mg PO DAILY 09/12/23 09/22/23 Previous Rx's Medication Instructions Recorded pantoprazole 20 mg tablet,delayed 20 mg PO DAILY #90 tabs 02/12/23 release cholecalciferol (vitamin D3) 50 50 mcg PO DAILY #30 tabs 06/21/23 mcg (2,000 unit) chewable tablet desogestrel 0.15 mg-ethinyl 1 tab PO DAILY #84 tabs 08/04/23 estradiol 0.03 mg tablet (Apri) Allergies Allergy/AdvReac Type Severity Reaction Status Date / Time metoprolol AdvReac Diarrhea Verified 09/12/23 13:29 Review of Systems 2 Review of Systems: Yes all other systems are reviewed and are negative [facility] Past Medical History Attestation statement: The following information was validated with the patient. Source: old records reviewed Medical History Contraception management Vitamin D deficiency Vitamin B12 deficiency Uses control Hx of ovarian cyst Epigastric abdominal pain Orthostatic hypotension Supraventricular tachycardia by ECG Major depression in partial remission Left ovarian cyst Migraine Surgical History H/O removal of cyst Family History Family History Mother Bipolar disorder Mental health disorder Social History Social History Household Members: Family Household Members Other:: mother and MGF Housing: House Alcohol intake: never Patient Tobacco Use Status: Never used Tobacco Smoked in Last 30 Days: No e-Cigarette/Vaping Use: Never Used Use of substances other than those prescribed or required for medical reasons: No Advance Directives: No Advance Directives Information Provided: No service: No Current occupational status: unemployed Cognitive needs: No Hearing needs: No Vision needs: No Physical Exam 2 Vital Signs: Vital Signs: Last Vital Signs Temp 98.9 F 09/28/23 20:24 Pulse 114 H 09/28/23 20:24 Resp 20 09/28/23 20:24 BP 141/88 H 09/28/23 20:24 Pulse Ox 100 09/28/23 20:24 O2 Del Method Room Air 09/28/23 20:24 BMI result Body Mass Index 30.4 Appearance: Alert.?Oriented to person, place and time. No acute distress.?Normal affect. Eyes: Pupils equal, round and reactive to light.? ENT: TM normal bilaterally. Pharynx normal.?? Neck: Normal inspection.? Neck supple.??No cervical adenopathy CVS: Heart sounds normal. Tachycardic? Pulses normal.?? Respiratory: No respiratory distress.? Lung sounds clear to auscultation bilaterally?? Abdomen: Soft and non-tender. Normoactive bowel sounds. Skin: Skin warm and dry.? Normal skin color.? ? Extremities: No lower extremity edema.? Neuro: Moves all extremities spontaneously. Sensation intact bilaterally. No motor deficits. Ambulates with normal steady gait. Course Reevaluation(s) Reevaluation #1: Patient is noted to be COVID-19 positive. We discussed emergency use authorization of Paxlovid, possible side effects, used shared decision-making she declines interest in taking this.. Mother is at bedside she confirms that baseline heart rate is 115-120s for patient, this is an ongoing situation, she has been evaluated by Cardiology and had Holter monitoring and echocardiogram done as well without any identifiable cause. Review of medical record indicates consistent heart rates of this level even back to 2020 EKG revealing a sinus tachycardia without ischemic abnormality. CMP reveals a mild leukopenia with monocytosis, consistent with infection, overall unremarkable CMP. Lipase within normal limits. HCG negative. Influenza/strep a testing negative. Stable for discharge home and outpatient follow-up with primary care provider. Discussed strict return precautions. All questions answered. Time: 19:59 Medications Administered Discontinued Medications Generic Name Dose Route Start Last Admin Trade Name Rosie PRN Reason Stop Dose Admin Sodium Chloride 1,000 mls @ 999 mls/hr 09/28/23 18:45 09/28/23 20:54 Ns IV 09/28/23 19:45 Infused .Q1H1M KRISTI Infusion Ondansetron HCl 4 mg 09/28/23 18:31 09/28/23 19:31 Ondansetron Hcl 4 Mg/2 Ml Vial IVPUSH 09/28/23 18:32 4 mg ONCE ONE Administration Medical Decision Making Medical Decision Making [facility] Narrative: Patient is a 22-year-old female presenting for evaluation of viral type symptoms. Upon arrival to ED was noted to be tachycardic in the 120s, tearful and appearing very anxious. When instructed to take slow deep breaths, she does have improvement in her heart rate to 110s. Abdominal examination is benign, I have a low suspicion for acute intra-abdominal pathology, concern for gastritis, gastroenteritis. Plan to obtain basic labs including CBC, CMP/lipase though low suspicion for back/biliary etiology, viral testing. Has history of SVT, EKG will be obtained his nursing staff had reported that she had episode of tachycardia to the 160s. History and physical exam consistent with ACS/PE, no risk factors, Wells negative. Patient received normal saline 1 L IV fluid, Zofran IV for nausea. Disposition pending results. Differential Diagnosis Differential Diagnoses: The differential diagnosis associated with the presentation includes ( See narrative above) Admission/Observation Consideration of admission/observation: Escalation of care including admission/observation considered ( see narrative above) Lab Data [facility] Lab Attestation statement: I reviewed the patient's lab results. ( see narrative above) 09/28/23 19:27 09/28/23 19:27 Labs: Lab Results 09/28/23 09/28/23 Range/Units 19:27 20:26 WBC 3.5 L (4.8-10.8) X10*3/uL RBC 4.63 (4.20-5.50) X10*6/uL Hgb 12.3 (12.0-16.0) g/dl Hct 36.8 L (37.0-47.0) % MCV 79.5 L (80.0-98.0) fL MCH 26.6 L (27.0-33.0) pg MCHC 33.4 (31.0-35.0) g/dl RDW 15.7 (11.0-16.0) % Plt Count 306 (160-400) X10*3/uL MPV 10.0 (9.4-12.3) fL Immature Gran % (Auto) 0.3 (0.0-0.4) % Neut % (Auto) 70.5 (45-73) % Lymph % (Auto) 13.3 L (20-40) % [place] % (Auto) 15.3 H (2-11) % Eos % (Auto) 0.3 (0-4) % Baso % (Auto) 0.3 (0-2) % Lymph # (Auto) 0.5 L (1.2-4.9) X10*3/uL [place] # (Auto) 0.5 (0.1-1.2) X10*3/uL Eos # (Auto) 0.0 (0.0-0.4) X10*3/uL Baso # (Auto) 0.0 (0.0-0.2) X10*3/uL Abs Immat Gran (auto) 0.01 (0.00-0.03) X10*3/uL Absolute Neuts (auto) 2.5 (2.0-8.3) x10*3/uL Absolute Nucleated RBC 0.000 (0.0-0.012) X10*3/uL Nucleated RBC % (auto) 0.0 (0.0-0.2) /100WBC PT 12.4 (11.1-13.3) SEC INR 1.0 (0.9-1.1) Sodium 134 L (135-145) mmol/L Potassium 3.5 (3.3-5.1) mmol/L Chloride 105 (96-108) mmol/L Carbon Dioxide 15 L (22-29) mmol/L Anion Gap 18 (12-20) BUN 4 L (9-16) mg/dL Creatinine 0.63 (0.5-1.4) mg/dL Estim Creat Clear Calc 130.1 Estimated GFR > 60 Random Glucose 77 (60-115) mg/dL Calcium 8.6 (8.4-10.2) mg/dL Total Bilirubin 0.3 (0.0-1.0) mg/dL AST 45 H (5-31) U/L ALT 27 (0-31) U/L Alkaline Phosphatase 68 (39-117) U/L Total Protein 6.9 (6.5-8.0) g/dL Albumin 3.6 (3.5-5.0) g/dL Lipase 8 (8-78) U/L Beta HCG, Quant < 2 mIU/mL Urine Color Yellow Urine Appearance Clear Urine pH 6.0 (5.0-9.0) Ur Specific [place] 1.025 (1.005-1.025) Urine Protein 30 (1+) H (Neg-Trace) mg/dL Urine Glucose (UA) Negative (Negative) mg/dL Urine Ketones 80 (Negative) mg/dL Urine Blood Negative (Negative) Urine Nitrite Negative (Negative) Ur Leukocyte Esterase Negative (Negative) Urine RBC 0-2 (0-2) /HPF Urine WBC 0-5 (0-5) /HPF Ur Squamous Epith Cells 6-10 (0-2) /HPF Urine Bacteria 1+ (None Seen) Hyaline Casts 0-2 (0-2) /LPF Urine Test NEGATIVE (NEGATIVE) COVID-19 (YAMILA) Positive A (Negative) COVID-19 Clin Com See Note Influenza Type A (DEBBIE) Negative (Negative) Influenza Type B (DEBBIE) Negative (Negative) Influenza A & B Note See Note S. pyogenes GrpA DEBBIE Negative (Negative) Independent Interpretation I performed an independent interpretation of an: EKG (See course narrative) and Plain X-Ray (Chest x-ray without evidence of pneumonia) Radiology Impression Discussion of test interpretation with radiology: I have reviewed the radiologist's reading. Radiologist Impression: XR/XR chest 2V IMPRESSION: No active cardiopulmonary disease. Independent Historian Clinical information obtained from an independent historian. History obtained from or confirmed by: Parent (Mother who confirms history) and EMS Prescription Management I considered prescription management with: Pain Medication ( acetaminophen/ibuprofen) Critical Care Time Critical Care Time Critical Care Time: Yes Total Critical Care Time: 35 Attestation: I personally attest to this critical care time spent taking care of the patient exclusive of all other billable procedures was approximately 35 minutes including initial evaluation of patient, ordering tests, x-ray interpretation, EKG interpretation, medical consultation, documentation, re-evaluation. Discharge Plan Discharge Clinical Impression: COVID-19 Patient Disposition: Home, Self-Care Instructions: COVID-19 (Coronavirus Disease 2019) (ED) Additional Instructions: You tested positive for COVID-19 today. Given your symptom onset predominantly being yesterday night. You should isolate until Saturday with soonest and isolation date of 10/03. Be sure to rest, stay well hydrated drinking plenty of fluids, eat small frequent meals. Tylenol/ibuprofen can be used as needed for fever/pain. [id number]-[id number] cold medications may be helpful as well for symptoms. Saline nasal spray, humidifier may be helpful for nasal congestion. You may return to the emergency department with any new or worsening symptoms or concerns. Follow-up with your primary care provider as needed. Prescriptions: No Action desogestrel-ethinyl estradiol [Apri] 0.15-0.03 mg tablet 1 tab PO DAILY Qty: 84 0RF lorazepam 0.5 mg tablet 0.5 mg PO DAILY pantoprazole 20 mg tablet,delayed release (DR/EC) 20 mg PO DAILY Qty: 90 3RF Auvelity 45-105 mg tablet,IR,delayed rel,biphasic 1 tab PO QAM cholecalciferol (vitamin D3) 50 mcg (2,000 unit) tablet,chewable 50 mcg PO DAILY Qty: 30 5RF Referrals: Ruma Alvarado MD [Primary Care Provider] -
[2023-09-28 18:30] VITALS: BP 152/80; BP 152/97; PULSE 120; PULSE 125; RESP 22; TEMP 36.8; O2SAT 100; O2SAT 96; BMI 30.4
--- NOTE | 2023-09-28 18:30 | ECG_ITS ---
Test Reason : TACHYCARDIA Blood Pressure : / mmHG Vent. Rate : 123 BPM Atrial Rate : 123 BPM P-R Int : 156 ms QRS Dur : 072 ms QT Int : 286 ms P-R-T Axes : 045 056 -08 degrees QTc Int : 409 ms Sinus tachycardia Nonspecific T wave abnormality Abnormal ECG When compared with ECG of 22-SEP-2023 04:20, Nonspecific T wave abnormality now evident in Anterior leads Referred By: Gina Espinoza Electronically Signed By:LEN EDWARDS
[2023-09-28] MEDS: ondansetron HCL 4 MG/2 ML VIAL IVPUSH (19:31)
[2023-09-28 19:32] LABS: MANUAL DIFF FLAG NO
[2023-09-28] MEDS: 0.9 % Sodium Chloride 1,000 ML 999 ML IV (19:33)
[2023-09-28 19:34] LABS: Basophils Percent Auto 0.3 % (0-2); Eosinophils Percent Auto 0.3 % (0-4); Hematocrit 36.8 % (37.0-47.0); Hemoglobin 12.3 g/dl (12.0-16.0); Imm Gran Abs Auto 0.01 X10*3/uL (0.00-0.03); Imm Gran Pct Auto 0.3 % (0.0-0.4); Lymphocytes Absolute Auto 0.5 X10*3/uL (1.2-4.9); Lymphocytes Percent Auto 13.3 % (20-40); Mean Corpuscular HGB Conc 33.4 g/dl (31.0-35.0); Mean Corpuscular Hemoglobin 26.6 pg (27.0-33.0); Mean Corpuscular Volume 79.5 fL (80.0-98.0); Monocytes Absolute Auto 0.5 X10*3/uL (0.1-1.2); Monocytes Percent Auto 15.3 % (2-11); Neutrophils Absolute Auto 2.5 x10*3/uL (2.0-8.3); Neutrophils Percent Auto 70.5 % (45-73); Platelet Count 306 X10*3/uL (160-400); Red Blood Count 4.63 X10*6/uL (4.20-5.50); Red Cell Distribution Width 15.7 % (11.0-16.0); White Blood Count 3.5 X10*3/uL (4.8-10.8)
[2023-09-28 19:43] LABS: COVID-19 Test Positive (Negative); IDNOW Serial# 08D9AD1C; IDNOW Serial# 152EDE1D; Strep A Nucleic Acid Negative (Negative)
[2023-09-28 19:49] LABS: IDNOW Serial# 9DB6401D; Influenza A Negative (Negative); Influenza B2 Negative (Negative); Prothrombin Time 12.4 SEC (11.1-13.3)
[2023-09-28 19:55] LABS: Alanine Aminotransferase 27 U/L (0-31); Albumin Level 3.6 g/dL (3.5-5.0); Alkaline Phosphatase 68 U/L (39-117); Anion Gap 18 (12-20); Aspartate Amino Transferase 45 U/L (5-31); Bilirubin Total 0.3 mg/dL (0.0-1.0); Blood Urea Nitrogen 4 mg/dL (9-16); Calcium 8.6 mg/dL (8.4-10.2); Carbon Dioxide 15 mmol/L (22-29); Chloride 105 mmol/L (96-108); Creatinine Clr Calc Pharmacy 130.1; Estimated Glomerular Filt Rate > 60; Glucose Random 77 mg/dL (60-115); Lipase 8 U/L (8-78); Potassium 3.5 mmol/L (3.3-5.1); Sodium 134 mmol/L (135-145); Total Protein 6.9 g/dL (6.5-8.0)
[2023-09-28 19:56] LABS: HCG Quantitative < 2 mIU/mL
[2023-09-28 20:24] VITALS: BP 141/88; PULSE 114; RESP 20; TEMP 37.2; O2SAT 100
[2023-09-28 20:32] LABS: Appearance Urine Clear; Color Urine Yellow; Glucose Urine UA Negative (Negative); Leukocyte Esterase Urine Negative (Negative); Nitrite Urine Negative (Negative); Specific Gravity - Urine 1.025 (1.005-1.025); UMIC TRIGGER UACC YES; Urine Blood Negative (Negative); Urine Ketones 80 mg/dL (Negative); Urine Protein 30 (1+) mg/dL (Neg-Trace)
[2023-09-28 20:34] LABS: UPreg QC Valid YES; Urine Pregnancy NEGATIVE (NEGATIVE)
[2023-09-28 20:35] LABS: Bacteria Urine 1+ (None Seen); Hyaline Casts Urine 0-2 /LPF (0-2); RBC Urine 0-2 /HPF (0-2); WBC Urine 0-5 /HPF (0-5)
== END 2023-09-28 21:00 | disposition home or self-care (01) ==
PROVIDERS: Nurse Practitioner Family; Emergency Provider Emergency Medicine; PCP Internal Medicine
DX: U07.1 COVID-19 (principal); R11.2 Nausea with vomiting, unspecified; Z79.899 Other long term (current) drug therapy
CPT/HCPCS: 36415; 71046; 80053; 81001; 81025; 83690; 84702; 85025; 85610; 87502; 87635; 87651; 93005; 96361; 96374; 99284; J2405

== ENCOUNTER → 2023-09-28 18:30 | Outpatient (BNV) | payer OTHER, SELFPAY | PROVIDERS: Emergency Provider Emergency Medicine; PCP Internal Medicine; Visit Provider Internal Medicine | DX: R94.31 Abnormal electrocardiogram [ECG] [EKG] (principal) | CPT/HCPCS: 93010 ==

== ENCOUNTER 2023-10-02 08:52 | Emergency (ER) | payer OTHER, SELFPAY ==
--- NOTE | ~2023-10-02 | XR_ITS ---
EXAMINATION: XR CHEST CLINICAL INFORMATION: Shortness of breath. Covid. COMPARISON: Chest radiograph dated 09/28/2023. TECHNIQUE: 2 views of the chest were obtained. FINDINGS: The lungs are clear. The cardiomediastinal silhouette is normal in size. There is no pleural effusion or pneumothorax. No acute osseous abnormality. XR/XR chest 2V IMPRESSION: No acute cardiopulmonary findings.
[2023-10-02 08:56] VITALS: BP 146/100; PULSE 148; RESP 19; TEMP 36.6; O2SAT 98; BMI 31.0
--- NOTE | 2023-10-02 09:00 | ECG_ITS ---
Test Reason : repeat ekg Blood Pressure : / mmHG Vent. Rate : 109 BPM Atrial Rate : 109 BPM P-R Int : 160 ms QRS Dur : 078 ms QT Int : 338 ms P-R-T Axes : 030 042 000 degrees QTc Int : 455 ms Sinus tachycardia Nonspecific T wave abnormality Abnormal ECG When compared with ECG of 02-OCT-2023 09:12, No significant change was found Referred By: Mandy Ledesma Electronically Signed By:Aníbal Montez
--- NOTE | 2023-10-02 09:04 | ECG_ITS ---
Test Reason : tachy Blood Pressure : / mmHG Vent. Rate : 121 BPM Atrial Rate : 121 BPM P-R Int : 168 ms QRS Dur : 076 ms QT Int : 310 ms P-R-T Axes : 027 065 -20 degrees QTc Int : 440 ms Artifact Sinus tachycardia Possible Left atrial enlargement Abnormal ECG When compared with ECG of 28-SEP-2023 19:46, Poor data quality in current ECG precludes serial comparison Referred By: Mandy Ledesma Electronically Signed By:Aníbal Montez
--- NOTE | 2023-10-02 09:09 | ED.GENADULT ---
HPI - General Adult General Chief complaint: Nausea/Vomiting/Diarrhea Stated complaint: Vomiting Etc Time Seen by Provider: 10/02/23 09:03 Source: patient and family (mother) Mode of arrival: ambulatory Limitations: no limitations History of Present Illness HPI narrative: Patient is a 22-year-old female with history of anxiety and depression, tachycardia, GERD presenting to the emergency department with complaint nausea, vomiting, diarrhea for the past 2 days. Patient was diagnosed with COVID on 09/28 and declined treatment with antivirals at that time. Patient complains of feeling short of breath at home. She denies chest pain but feels as though heart is racing. Mother reports baseline tachycardia of 115-120 for which patient has been evaluated by cardiology, no cause determined. Mother reports that patient has been incontinent of urine at home, states she can't take care of herself at home. Patient denies abdominal pain. Mother and patient deny any hematochezia, melena, hematemesis. MD complaint: nausea and vomiting, dyspnea Onset (ago): day(s) Associated symptoms: nausea/vomiting Related Data Home Medications Medication Instructions Recorded Confirmed dextromethorphan IR 45 1 tab PO QAM 06/21/23 mg-bupropion ER 105 mg biphasic tablet (Auvelity) lorazepam 0.5 mg tablet 0.5 mg PO DAILY 09/12/23 09/22/23 Previous Rx's Medication Instructions Recorded pantoprazole 20 mg tablet,delayed 20 mg PO DAILY #90 tabs 02/12/23 release cholecalciferol (vitamin D3) 50 50 mcg PO DAILY #30 tabs 06/21/23 mcg (2,000 unit) chewable tablet desogestrel 0.15 mg-ethinyl 1 tab PO DAILY #84 tabs 08/04/23 estradiol 0.03 mg tablet (Apri) ondansetron 4 mg disintegrating 4 mg PO Q8H PRN nausea and 10/02/23 tablet vomiting #12 tabs Allergies Allergy/AdvReac Type Severity Reaction Status Date / Time metoprolol AdvReac Diarrhea Verified 10/02/23 08:56 Review of Systems Review of Systems: As per HPI. Yes all other systems are reviewed and are negative Constitutional: Constitutional: Reports as per HPI [facility] Past Medical History Medical History Contraception management Vitamin D deficiency Vitamin B12 deficiency Uses control Hx of ovarian cyst Epigastric abdominal pain Orthostatic hypotension Supraventricular tachycardia by ECG Major depression in partial remission Left ovarian cyst Migraine Surgical History H/O removal of cyst Family History Family History Mother Bipolar disorder Mental health disorder Social History Social History Household Members: Family Household Members Other:: mother and MGF Housing: House Alcohol intake: never Patient Tobacco Use Status: Never used Tobacco Smoked in Last 30 Days: No e-Cigarette/Vaping Use: Never Used Use of substances other than those prescribed or required for medical reasons: No Advance Directives: No service: No Current occupational status: unemployed Cognitive needs: No Hearing needs: No Vision needs: No Physical Exam ED Vital Signs: Vital Signs - 24 hr 10/02/23 08:56 10/02/23 13:17 10/02/23 14:02 Temperature 98 F 98.6 F Pulse Rate 148 H 99 111 H Respiratory Rate 19 15 18 Blood Pressure 146/100 H 128/86 130/85 Pulse Oximetry 98 100 100 Oxygen Delivery Method Room Air Room Air Room Air 10/02/23 14:16 Temperature Pulse Rate 109 H Respiratory Rate 21 H Blood Pressure 122/81 Pulse Oximetry 100 Oxygen Delivery Method Room Air BMI result Body Mass Index 31.0 Vital signs have been reviewed and appear to be correct. Blood pressure elevated. Heart rate tachycardic. Respiratory rate normal. Temperature normal. Oxygen saturation normal. Const General: cooperative and no acute distress Orientation/consciousness: oriented to person, oriented to place, oriented to time and patient oriented x3 Limitations: no limitations HENMT Head: Yes normocephalic and Yes atraumatic Ears: external ears normal General nose exam: Normal external nose present Face and sinus: Yes face symmetric Mouth: oropharynx normal and moist mucous membranes Throat: Yes uvula midline Eyes Pupils: Equal, round and reactive pupils present Neck Neck: Yes normal visual inspection and Yes supple Resp Effort & Inspection: normal respiratory effort, able to speak in complete sentences (when verbally redirected), no respiratory distress and tachypneic Auscultation: clear to auscultation bilaterally Cardio Rate: tachycardic Rhythm: regular rhythm Heart sounds: S1 normal heart sound present and S2 normal heart sound present Peripheral pulses: Peripheral pulses 2+ throughout GI Inspection: Yes normal to inspection Palpation (GI): Soft to palpation and nontender Auscultation: normoactive bowel sounds General: Yes no CVA tenderness Back/Spine/Pelvis Back: no CVA tenderness Skin General skin exam: elasticity normal and turgor normal Neuro General: oriented to person, oriented to place, oriented to time, patient oriented x3, moves all extremities, no focal motor deficits and CN's II-XI intact bilaterally Cranial nerves: Yes Equal, round and reactive pupils present Cognition (Neuro): normal cognition Extrem General: Yes full ROM, Yes no pedal edema and Yes no calf tenderness Psych Mental Status: mental status grossly normal Affect: Anxious affect present Thought process: Normal thought process present Medications Administered Discontinued Medications Generic Name Dose Route Start Last Admin Trade Name Freq PRN Reason Stop Dose Admin Sodium Chloride 2,163.63 mls @ 2,163.63 mls/hr 10/02/23 10:04 10/02/23 13:16 Ns 30 ml/kg infuse over 1 hr (2163.63 ml) 10/02/23 11:03 Infused IV Infusion .Q1H STA Ceftriaxone Sodium 1 gm/ 50 mls @ 100 mls/hr 10/02/23 10:04 10/02/23 11:40 Sodium Chloride IV 10/02/23 10:33 Infused ONCE ONE Infusion Lorazepam 1 mg 10/02/23 10:36 10/02/23 10:40 Lorazepam 1 Mg Tablet PO 10/02/23 10:37 1 mg ONCE ONE Administration Medical Decision Making Medical Decision Making [facility] Narrative: Patient is a 22-year-old female with history of anxiety and depression, tachycardia, GERD presenting to the emergency department with complaint nausea, vomiting, diarrhea for the past 2 days. On exam patient is awake, A+Ox3, tachycardic, BP elevated, intermittently tachypneic, afebrile, physical exam findings as above. Given reported symptoms and physical exam findings, initial differential includes sepsis, pneumonia, UTI, electrolyte abnormality, dehydration. Less likely PE, but given tachycardia, tachypnea, will obtain d dimer. Sepsis alert called when notified of elevated lactic. IV ceftriaxone and 30mg/kg bolus ordered. Patient extremely anxious, and becomes increasingly tachycardic and tachypneic when watching the monitor. Patient noted to have heart rate of 104 and respiratory rate of 16 when not watching monitor/staff in room. Will order lorazepam for anxiety. Labs notable for elevated lactic, mildly elevated LFTs likely due to recent vomiting. VBG shows metabolic alkalosis likely due to vomiting/diarrhea. No evidence of infection on urinalysis. X-ray notable for no evidence of pneumonia. My interpretation is in agreement with the radiologist's interpretation. Initial EKG showed sinus tachycardia, rate of 121, repeat EKG showed sinus tach rate of 109, which is closer to patient's baseline. Lactic improved with IV fluids, heart rate now around 105 which is baseline for patient. Patient reports anxiety has improved with lorazepam. Feel anxiety was large component to patient's symptoms. Discussed discharge home with patient and mother, who both feel comfortable with discharge. Will prescribe zofran for nausea. Advised patient to ensure adequate rest and fluid intake. Encouraged patient to follow up with therapist regarding anxiety and discussed with patient techniques for slowing her respirations. Return precautions discussed. Patient verbalized understanding of and agreement with plan. Differential Diagnosis Differential Diagnoses: The differential diagnosis associated with the presentation includes As per [facility]. Admission/Observation Consideration of admission/observation: Escalation of care including admission/observation considered Lab Data [facility] Lab Attestation statement: I reviewed the patient's lab results. As per [facility] 10/02/23 09:40 10/02/23 09:40 Labs: Lab Results 10/02/23 10/02/23 10/02/23 Range/Units 09:24 09:40 10:35 WBC 4.2 L (4.8-10.8) X10*3/uL RBC 5.06 (4.20-5.50) X10*6/uL Hgb 13.2 (12.0-16.0) g/dl Hct 39.8 (37.0-47.0) % MCV 78.7 L (80.0-98.0) fL MCH 26.1 L (27.0-33.0) pg MCHC 33.2 (31.0-35.0) g/dl RDW 15.1 (11.0-16.0) % Plt Count 376 (160-400) X10*3/uL MPV 10.5 (9.4-12.3) fL Immature Gran % (Auto) 0.2 (0.0-0.4) % Neut % (Auto) 57.1 (45-73) % Lymph % (Auto) 27.8 (20-40) % Story % (Auto) 14.5 H (2-11) % Eos % (Auto) 0.2 (0-4) % Baso % (Auto) 0.2 (0-2) % Lymph # (Auto) 1.2 (1.2-4.9) X10*3/uL Story # (Auto) 0.6 (0.1-1.2) X10*3/uL Eos # (Auto) 0.0 (0.0-0.4) X10*3/uL Baso # (Auto) 0.0 (0.0-0.2) X10*3/uL Abs Immat Gran (auto) 0.01 (0.00-0.03) X10*3/uL Absolute Neuts (auto) 2.4 (2.0-8.3) x10*3/uL Absolute Nucleated RBC 0.000 (0.0-0.012) X10*3/uL Nucleated RBC % (auto) 0.0 (0.0-0.2) /100WBC D-Dimer High Sensitivty < 150 NG/ML VBG pH (7.32-7.43) VBG pCO2 mmHg VBG pO2 mmHg VBG HCO3 (22-26) mmol/L VBG O2 Saturation % VBG Base Excess mmol/L Sodium 137 (135-145) mmol/L Potassium 3.7 (3.3-5.1) mmol/L Chloride 100 (96-108) mmol/L Carbon Dioxide 26 (22-29) mmol/L Anion Gap 15 (12-20) BUN < 3 L (9-16) mg/dL Creatinine 0.65 (0.5-1.4) mg/dL Estim Creat Clear Calc 122.3 Estimated GFR > 60 Random Glucose 117 H (60-115) mg/dL Lactic Acid 2.4 H* (0.5-2.0) mmol/L Lactic Acid F/U @ 2Hr (0.5-2.0) mmol/L Calcium 10.1 D (8.4-10.2) mg/dL Magnesium 2.0 (1.6-2.6) mg/dL Total Bilirubin 0.4 (0.0-1.0) mg/dL AST 54 H (5-31) U/L ALT 44 H (0-31) U/L Alkaline Phosphatase 73 (39-117) U/L Total Protein 7.8 (6.5-8.0) g/dL Albumin 3.9 (3.5-5.0) g/dL Beta HCG, Quant < 2 mIU/mL Urine Color Urine Appearance Urine pH (5.0-9.0) Ur Specific [place] (1.005-1.025) Urine Protein (Neg-Trace) mg/dL Urine Glucose (UA) (Negative) mg/dL Urine Ketones (Negative) mg/dL Urine Blood (Negative) Urine Nitrite (Negative) Ur Leukocyte Esterase (Negative) Urine RBC (0-2) /HPF Urine WBC (0-5) /HPF Ur Squamous Epith Cells (0-2) /HPF Urine Bacteria (None Seen) Hyaline Casts (0-2) /LPF COVID-19 (YAMILA) Positive A (Negative) COVID-19 Clin Com See Note Influenza Type A (DEBBIE) Negative (Negative) Influenza Type B (DEBBIE) Negative (Negative) Influenza A & B Note See Note S. pyogenes GrpA DEBBIE Negative (Negative) 10/02/23 10/02/23 10/02/23 Range/Units 10:39 11:19 12:51 WBC (4.8-10.8) X10*3/uL RBC (4.20-5.50) X10*6/uL Hgb (12.0-16.0) g/dl Hct (37.0-47.0) % MCV (80.0-98.0) fL MCH (27.0-33.0) pg MCHC (31.0-35.0) g/dl RDW (11.0-16.0) % Plt Count (160-400) X10*3/uL MPV (9.4-12.3) fL Immature Gran % (Auto) (0.0-0.4) % Neut % (Auto) (45-73) % Lymph % (Auto) (20-40) % Story % (Auto) (2-11) % Eos % (Auto) (0-4) % Baso % (Auto) (0-2) % Lymph # (Auto) (1.2-4.9) X10*3/uL Story # (Auto) (0.1-1.2) X10*3/uL Eos # (Auto) (0.0-0.4) X10*3/uL Baso # (Auto) (0.0-0.2) X10*3/uL Abs Immat Gran (auto) (0.00-0.03) X10*3/uL Absolute Neuts (auto) (2.0-8.3) x10*3/uL Absolute Nucleated RBC (0.0-0.012) X10*3/uL Nucleated RBC % (auto) (0.0-0.2) /100WBC D-Dimer High Sensitivty NG/ML VBG pH 7.51 H (7.32-7.43) VBG pCO2 33 mmHg VBG pO2 54 mmHg VBG HCO3 27 H (22-26) mmol/L VBG O2 Saturation 85.0 % VBG Base Excess 4.7 mmol/L Sodium (135-145) mmol/L Potassium (3.3-5.1) mmol/L Chloride (96-108) mmol/L Carbon Dioxide (22-29) mmol/L Anion Gap (12-20) BUN (9-16) mg/dL Creatinine (0.5-1.4) mg/dL Estim Creat Clear Calc Estimated GFR Random Glucose (60-115) mg/dL Lactic Acid (0.5-2.0) mmol/L Lactic Acid F/U @ 2Hr 1.0 (0.5-2.0) mmol/L Calcium (8.4-10.2) mg/dL Magnesium (1.6-2.6) mg/dL Total Bilirubin (0.0-1.0) mg/dL AST (5-31) U/L ALT (0-31) U/L Alkaline Phosphatase (39-117) U/L Total Protein (6.5-8.0) g/dL Albumin (3.5-5.0) g/dL Beta HCG, Quant mIU/mL Urine Color Yellow Urine Appearance Clear Urine pH 7.5 (5.0-9.0) Ur Specific [place] <= 1.005 (1.005-1.025) Urine Protein Negative (Neg-Trace) mg/dL Urine Glucose (UA) Negative (Negative) mg/dL Urine Ketones Negative (Negative) mg/dL Urine Blood Small (1+) H (Negative) Urine Nitrite Negative (Negative) Ur Leukocyte Esterase Negative (Negative) Urine RBC 0-2 (0-2) /HPF Urine WBC 0-5 (0-5) /HPF Ur Squamous Epith Cells 0-2 (0-2) /HPF Urine Bacteria None Seen (None Seen) Hyaline Casts 0-2 (0-2) /LPF COVID-19 (YAMILA) (Negative) COVID-19 Clin Com Influenza Type A (DEBBIE) (Negative) Influenza Type B (DEBBIE) (Negative) Influenza A & B Note S. pyogenes GrpA DEBBIE (Negative) Independent Interpretation I performed an independent interpretation of an: EKG (Initial EKG shows sinus tachycardia, rate 121 bpm, normal IL interval and QTC; repeat EKG shows sinus tachycardia, rate 109 beats per minute, normal IL interval and QTC) and Plain X-Ray Interpretation: no evidence of pneumonia on chest x-ray Radiology Impression Discussion of test interpretation with radiology: I have reviewed the radiologist's reading. Radiologist Impression: XR/XR chest 2V IMPRESSION: No acute cardiopulmonary findings. Independent Historian Clinical information obtained from an independent historian. History obtained from or confirmed by: Parent External Record Review External record reviewed: Inpatient record, Office record and Outpatient record Prescription Management I considered prescription management with: Other Discharge Plan Discharge Clinical Impression: Dehydration, COVID-19, Nausea & vomiting, Anxiety Patient Disposition: Home, Self-Care Instructions: Dehydration (ED), Acute Nausea and Vomiting (ED), Anxiety (ED), COVID-19 (Coronavirus Disease 2019) (ED) Additional Instructions: You have been evaluated in the emergency department today for nausea, vomiting, and diarrhea. Your evaluation suggests that your symptoms are most likely due to your known Covid infection, which should improve with rest and fluids. Remember to drink plenty of fluids at home. You are being prescribed ondansetron which you can use as per the prescription instructions for nausea. Please follow up with your primary care provider within two days. Return to the emergency department if you experience worsening or uncontrolled pain, inability to tolerate fluids by mouth, difficulty breathing, fevers 100.4? F or greater, recurrent vomiting, or any other concerning symptoms. Prescriptions: New ondansetron 4 mg tablet,disintegrating 4 mg PO Q8H PRN (Reason: nausea and vomiting) Qty: 12 0RF No Action desogestrel-ethinyl estradiol [Apri] 0.15-0.03 mg tablet 1 tab PO DAILY Qty: 84 0RF lorazepam 0.5 mg tablet 0.5 mg PO DAILY pantoprazole 20 mg tablet,delayed release (DR/EC) 20 mg PO DAILY Qty: 90 3RF Auvelity 45-105 mg tablet,IR,delayed rel,biphasic 1 tab PO QAM cholecalciferol (vitamin D3) 50 mcg (2,000 unit) tablet,chewable 50 mcg PO DAILY Qty: 30 5RF
[2023-10-02 09:46] LABS: MANUAL DIFF FLAG NO
[2023-10-02 09:50] LABS: Basophils Percent Auto 0.2 % (0-2); Eosinophils Percent Auto 0.2 % (0-4); Hematocrit 39.8 % (37.0-47.0); Hemoglobin 13.2 g/dl (12.0-16.0); Imm Gran Abs Auto 0.01 X10*3/uL (0.00-0.03); Imm Gran Pct Auto 0.2 % (0.0-0.4); Lymphocytes Absolute Auto 1.2 X10*3/uL (1.2-4.9); Lymphocytes Percent Auto 27.8 % (20-40); Mean Corpuscular HGB Conc 33.2 g/dl (31.0-35.0); Mean Corpuscular Hemoglobin 26.1 pg (27.0-33.0); Mean Corpuscular Volume 78.7 fL (80.0-98.0); Mean Platelet Volume 10.5 fL (9.4-12.3); Monocytes Absolute Auto 0.6 X10*3/uL (0.1-1.2); Monocytes Percent Auto 14.5 % (2-11); Neutrophils Absolute Auto 2.4 x10*3/uL (2.0-8.3); Neutrophils Percent Auto 57.1 % (45-73); Platelet Count 376 X10*3/uL (160-400); Red Blood Count 5.06 X10*6/uL (4.20-5.50); Red Cell Distribution Width 15.1 % (11.0-16.0); White Blood Count 4.2 X10*3/uL (4.8-10.8)
[2023-10-02 09:59] LABS: COVID-19 Test Positive (Negative); IDNOW Serial# 08D9AD1C; IDNOW Serial# 152EDE1D; IDNOW Serial# 9DB6401D; Influenza A Negative (Negative); Influenza B2 Negative (Negative); Strep A Nucleic Acid Negative (Negative)
[2023-10-02 10:04] LABS: Lactic Acid 2.4 mmol/L (0.5-2.0)
[2023-10-02 10:10] LABS: Alanine Aminotransferase 44 U/L (0-31); Albumin Level 3.9 g/dL (3.5-5.0); Alkaline Phosphatase 73 U/L (39-117); Anion Gap 15 (12-20); Aspartate Amino Transferase 54 U/L (5-31); Bilirubin Total 0.4 mg/dL (0.0-1.0); Blood Urea Nitrogen < 3 mg/dL (9-16); Calcium 10.1 mg/dL (8.4-10.2); Carbon Dioxide 26 mmol/L (22-29); Chloride 100 mmol/L (96-108); Creatinine Clr Calc Pharmacy 122.3; Estimated Glomerular Filt Rate > 60; Glucose Random 117 mg/dL (60-115); HCG Quantitative < 2 mIU/mL; Potassium 3.7 mmol/L (3.3-5.1); Sodium 137 mmol/L (135-145); Total Protein 7.8 g/dL (6.5-8.0)
--- NOTE | 2023-10-02 10:10 | PC.NURSE ---
sepsis alert called at 1008. awaiting second set of cultures to be drawn for abx.
[2023-10-02] MEDS: SODIUM CHLORIDE 2163.63 ML IV (10:20)
[2023-10-02] MEDS: cefTRIAXone sodium 1 GM in 0.9 % Sodium Chloride 50 ML IV (10:36)
[2023-10-02] MEDS: LORazepam 1 MG TABLET PO (10:40)
[2023-10-02 10:44] LABS: VBG Base Excess 4.7 mmol/L; VBG HCO3 27 mmol/L (22-26); VBG pCO2 33 mmHg; VBG pH 7.51 (7.32-7.43); VBG pO2 54 mmHg
[2023-10-02 10:46] LABS: Venous Blood Gas Refer to POC result
--- NOTE | 2023-10-02 10:47 | PC.NURSE ---
pt with high anxiety, postponed lab draw due to acute panic. as needle was already inserted in pt, pt started shaking and screaming. had to be redirected. abd hanging 2 minutes past due as result of episode. pt medicated with po ativan per ADRIAN Galvan.
[2023-10-02 11:04] LABS: D Dimer High Sensitivity < 150 NG/ML
[2023-10-02 11:29] LABS: Appearance Urine Clear; Color Urine Yellow; Glucose Urine UA Negative (Negative); Leukocyte Esterase Urine Negative (Negative); Nitrite Urine Negative (Negative); PH 7.5 (5.0-9.0); Specific Gravity - Urine <= 1.005 (1.005-1.025); UMIC TRIGGER UACC YES; Urine Blood Small (1+) (Negative); Urine Ketones Negative (Negative); Urine Protein Negative (Neg-Trace)
[2023-10-02 11:40] LABS: Bacteria Urine None Seen (None Seen); Hyaline Casts Urine 0-2 /LPF (0-2); RBC Urine 0-2 /HPF (0-2); Squamous Epithelial Cell Urine 0-2 /HPF (0-2); WBC Urine 0-5 /HPF (0-5)
[2023-10-02 11:45] LABS: Reflex Lactate? Lactic Acid Added
--- NOTE | 2023-10-02 13:10 | PC.NURSE ---
IV abx infused and documented per mar. IV fluids still infusing. pt keeps bending arm. pt placed on purewick due to multiple episodes of incontinence. pt appears to be more relaxed than prior and after given ativan. resting quietly with boyfriend and mom at bedside.
[2023-10-02 13:17] VITALS: BP 128/86; PULSE 99; RESP 15; TEMP 37; O2SAT 100
[2023-10-02 14:02] VITALS: BP 130/85; PULSE 111; RESP 18; O2SAT 100
[2023-10-02 14:16] VITALS: BP 122/81; PULSE 109; RESP 21; O2SAT 100
--- NOTE | 2023-10-02 14:56 | PC.NURSE ---
pt IV fluids infused at 1358. this RN did not end fluids as was documented. another RN must have charted it when fluids were in fact still infusing. 2 BPs documented after fluids finished.
== END 2023-10-02 15:47 | disposition home or self-care (01) ==
PROVIDERS: Registered Nurse Emergency; Emergency Provider Emergency Medicine Emergency Medical Services; PCP Internal Medicine
DX: U07.1 COVID-19 (principal); E86.0 Dehydration; R11.2 Nausea with vomiting, unspecified; F41.8 Other specified anxiety disorders; R00.0 Tachycardia, unspecified; R06.02 Shortness of breath; F79 Unspecified intellectual disabilities; R41.0 Disorientation, unspecified
CPT/HCPCS: 71046; 80053; 81001; 82803; 83605; 83735; 84702; 85025; 85379; 87040; 87502; 87635; 87651; 93005; 96361; 96374; 99285; J0696

== ENCOUNTER → 2023-10-02 09:00 | Outpatient (BNV) | payer OTHER, SELFPAY | PROVIDERS: Emergency Provider Emergency Medicine Emergency Medical Services; PCP Internal Medicine; Visit Provider Internal Medicine Cardiovascular Disease | DX: R94.31 Abnormal electrocardiogram [ECG] [EKG] (principal) | CPT/HCPCS: 93010 ==

== ENCOUNTER 2023-10-07 23:09 | Inpatient (IN) | payer OTHER, SELFPAY ==
--- NOTE | ~2023-10-07 | US_ITS ---
EXAMINATION: US PELVIS CLINICAL INFORMATION: Evaluate for ovarian lesion. COMPARISON: None available. TECHNIQUE: Ultrasound of the pelvis was performed transabdominally. Patient refused transvaginal examination. FINDINGS: Limited transabdominal evaluation as the urinary bladder was not fully distended. The uterus measures approximately 6.3 x 2 x 3 cm without discrete mass. The visualized portions of the endometrium measuring up to 0.2 cm in thickness without focal abnormality. The cervix is not well seen. The right ovary was not visualized. There is a 4 x 3.3 x 4.3 cm well-defined, anechoic and avascular simple-appearing cyst in the left ovary. The ovary itself is not well seen limiting accurate measurements of the ovarian size/volume. There is preserved flow on color Doppler to the left adnexa at the moment of this examination. Evaluation of color and spectral Doppler flow to the ovaries is not well evaluated in this examination. No free fluid. US/US pelvic complete IMPRESSION: Very limited examination. Further evaluation with MRI of the pelvis as clinically warranted. There is a 4.3 cm simple appearing cyst in the left ovary that is almost certainly benign in a patient of this age and for which no imaging follow-up is recommended in an asymptomatic patient. If an acute ovarian pathology such as torsion is clinically suspected, further evaluation with MRI pelvis is recommended.
--- NOTE | ~2023-10-07 | CT_ITS ---
EXAMINATION: CT HEAD WITHOUT CONTRAST CLINICAL INFORMATION: New onset psychosis COMPARISON: CT head 06/23/2019. TECHNIQUE: Contiguous axial imaging was performed from the skull base to vertex without intravenous administration of contrast. This CT examination was performed using dose optimization techniques as appropriate, variously including the following: *Automated exposure control *Adjustment of mA and/or kV according to patient size (this includes techniques or standardized protocols for targeted exams where dose is matched to indication/reason for exam; i.e. extremities or head) *Use of iterative reconstruction technique DLP: 481 mGy-cm FINDINGS: There is no acute intracranial hemorrhage or abnormal extra-axial collection. No intracranial mass effect or midline shift. Lateral and third ventricles are normal. No hydrocephalus. Duffy-white matter differentiation is preserved and there is no evidence of acute territorial infarct. The calvarium and skull base are intact. Mastoid air cells and middle ear cavities are well aerated. Mild to moderate paranasal sinus disease. CT/CT head/brain wo IV con IMPRESSION: Unremarkable CT scan of the head. No evidence of acute territorial infarct or hemorrhage.
[2023-10-07 23:43] VITALS: BP 138/90; PULSE 128; O2SAT 98; BMI 21.6
[2023-10-07 23:49] VITALS: BP 145/88; PULSE 115; RESP 20; TEMP 36.6; O2SAT 96
--- NOTE | 2023-10-08 00:22 | ED.PSYCH ---
HPI - Psych General Chief Complaint: Psychiatric Symptoms Stated Complaint: CRISIS Time Seen by Provider: 10/07/23 23:43 Source: patient and EMS Mode of arrival: EMS History of Present Illness HPI Narrative: 22-year-old female brought in by EMS and according to the triage note has not slept for 3 days, disoriented, auditory hallucinations in received olanzapine 10 mg after which patient slept for 4 hours. At 21:00 patient appeared to be paranoid and delusional and according to the facility was endorsing SI and auditory hallucinations. Patient denies SI/HI but responses are somewhat vague. She denies any nausea, vomiting, fever, chills, abdominal pain. Related Data Home Medications Medication Instructions Recorded Confirmed dextromethorphan IR 45 1 tab PO QAM 06/21/23 mg-bupropion ER 105 mg biphasic tablet (Auvelity) lorazepam 0.5 mg tablet 0.5 mg PO DAILY 09/12/23 09/22/23 Previous Rx's Medication Instructions Recorded pantoprazole 20 mg tablet,delayed 20 mg PO DAILY #90 tabs 02/12/23 release cholecalciferol (vitamin D3) 50 50 mcg PO DAILY #30 tabs 06/21/23 mcg (2,000 unit) chewable tablet desogestrel 0.15 mg-ethinyl 1 tab PO DAILY #84 tabs 08/04/23 estradiol 0.03 mg tablet (Apri) ondansetron 4 mg disintegrating 4 mg PO Q8H PRN nausea and 10/02/23 tablet vomiting #12 tabs Allergies Allergy/AdvReac Type Severity Reaction Status Date / Time metoprolol AdvReac Diarrhea Verified 10/07/23 23:43 Review of Systems Review of Systems: Pertinent positives and negatives as stated in HPI PMFSH Past Medical History Source: nursing notes reviewed Medical History Contraception management Vitamin D deficiency Vitamin B12 deficiency Uses control Hx of ovarian cyst Epigastric abdominal pain Orthostatic hypotension Supraventricular tachycardia by ECG Major depression in partial remission Left ovarian cyst Migraine Surgical History H/O removal of cyst Family History Family History Mother Bipolar disorder Mental health disorder Social History Social History Household Members: Family Household Members Other:: mother and MGF Housing: House Alcohol intake: never Patient Tobacco Use Status: Never used Tobacco e-Cigarette/Vaping Use: Never Used Advance Directives: No Advance Directives Information Provided: Yes service: No Current occupational status: unemployed Cognitive needs: No Hearing needs: No Vision needs: No Physical Exam Vital Signs: Vital Signs: Last Vital Signs Temp 97.8 F 10/07/23 23:49 Pulse 115 H 10/07/23 23:49 Resp 20 10/07/23 23:49 BP 145/88 H 10/07/23 23:49 Pulse Ox 96 10/07/23 23:49 O2 Del Method Room Air 10/07/23 23:49 BMI result Body Mass Index 21.6 VITAL SIGNS: Reviewed. GENERAL: Well developed, well nourished, in no acute distress. HEAD: Normocephalic/atraumatic EYES: PERRLA, EOMI EARS: Ext canals without abnormality NOSE: Nares patent bilateral OROPHARYNX: no oral lesions noted, posterior pharynx clear NECK: Supple, no adenopathy LUNGS: Normal breath sounds. No adventitious sounds or accessory muscle use. SpO2<96> CARDIOVASCULAR: Regular rate and rhythm without noted murmurs ABDOMEN: Soft, non-tender, non-distended with bowel sounds. MUSCULOSKELETAL: No tenderness, deformities, or effusions noted on gross inspection. EXTREMITIES: No cyanosis, clubbing or edema. SKIN: Inspection of the skin reveals no rashes NEUROLOGIC: Alert and oriented x 2. Strength and sensation to light touch were grossly intact x 4, cranial nerves 2-12 are grossly intact. Medical Decision Making Medical Decision Making MDM Narrative: 22-year-old female with history and clinical presentation, DDX: Potentially overmedicated?, will rule out infections/electrolyte derangements/viral illness. Signed out to Dr Burroughs - Medical Clearance Differential Diagnosis Differential Diagnoses: The differential diagnosis associated with the presentation includes Please see the discussion above Admission/Observation Consideration of admission/observation: Escalation of care including admission/observation considered Please see the discussions above Discharge Plan Discharge Clinical Impression: Suicidal ideation, Auditory hallucinations Patient Disposition: Still a Patient Prescriptions: No Action desogestrel-ethinyl estradiol [Apri] 0.15-0.03 mg tablet 1 tab PO DAILY Qty: 84 0RF ondansetron 4 mg tablet,disintegrating 4 mg PO Q8H PRN (Reason: nausea and vomiting) Qty: 12 0RF lorazepam 0.5 mg tablet 0.5 mg PO DAILY pantoprazole 20 mg tablet,delayed release (DR/EC) 20 mg PO DAILY Qty: 90 3RF Auvelity 45-105 mg tablet,IR,delayed rel,biphasic 1 tab PO QAM cholecalciferol (vitamin D3) 50 mcg (2,000 unit) tablet,chewable 50 mcg PO DAILY Qty: 30 5RF
[2023-10-08 02:22] LABS: MANUAL DIFF FLAG NO
[2023-10-08 02:23] LABS: Basophils Percent Auto 0.4 % (0-2); Eosinophils Absolute Auto 0.1 X10*3/uL (0.0-0.4); Eosinophils Percent Auto 0.7 % (0-4); Hematocrit 39.8 % (37.0-47.0); Hemoglobin 13.1 g/dl (12.0-16.0); Imm Gran Abs Auto 0.03 X10*3/uL (0.00-0.03); Imm Gran Pct Auto 0.3 % (0.0-0.4); Lymphocytes Absolute Auto 2.6 X10*3/uL (1.2-4.9); Lymphocytes Percent Auto 26.3 % (20-40); Mean Corpuscular HGB Conc 32.9 g/dl (31.0-35.0); Mean Corpuscular Hemoglobin 26.3 pg (27.0-33.0); Mean Corpuscular Volume 79.8 fL (80.0-98.0); Mean Platelet Volume 9.7 fL (9.4-12.3); Monocytes Percent Auto 10.3 % (2-11); Neutrophils Absolute Auto 6.1 x10*3/uL (2.0-8.3); Platelet Count 489 X10*3/uL (160-400); Red Blood Count 4.99 X10*6/uL (4.20-5.50); Red Cell Distribution Width 15.3 % (11.0-16.0); White Blood Count 9.8 X10*3/uL (4.8-10.8)
[2023-10-08 02:37] LABS: Acetaminophen LAB < 3 mcg/mL (<30); Alanine Aminotransferase 43 U/L (0-31); Alkaline Phosphatase 78 U/L (39-117); Anion Gap 15 (12-20); Aspartate Amino Transferase 37 U/L (5-31); Bilirubin Total 0.5 mg/dL (0.0-1.0); Blood Urea Nitrogen 5 mg/dL (9-16); Calcium 9.3 mg/dL (8.4-10.2); Carbon Dioxide 25 mmol/L (22-29); Chloride 105 mmol/L (96-108); Creatinine Clr Calc Pharmacy 150.5; Estimated Glomerular Filt Rate > 60; Ethanol < 10 mg/dL; Glucose Random 92 mg/dL (60-115); Potassium 3.7 mmol/L (3.3-5.1); Salicylate < 5.0 mg/dL (15-30); Sodium 141 mmol/L (135-145); Total Protein 7.3 g/dL (6.5-8.0)
[2023-10-08 03:01] LABS: Influenza A PCR NEGATIVE (Negative); Influenza B PCR NEGATIVE (Negative); Resp Syncy Virus RNA Qual PCR NEGATIVE (Negative); SARS COV2 PCR INHOUSE POSITIVE (Negative)
[2023-10-08 04:25] LABS: Appearance Urine Turbid; Color Urine Yellow; Glucose Urine UA Negative (Negative); Leukocyte Esterase Urine Small (1+) (Negative); Nitrite Urine Negative (Negative); Specific Gravity - Urine 1.015 (1.005-1.025); UMIC TRIGGER UACC YES; Urine Blood Trace (Negative); Urine Ketones Trace mg/dL (Negative); Urine Protein Negative (Neg-Trace)
[2023-10-08 04:26] LABS: UPreg QC Valid YES; Urine Pregnancy NEGATIVE (NEGATIVE)
[2023-10-08 04:28] LABS: Bacteria Urine 1+ (None Seen); Hyaline Casts Urine 0-2 /LPF (0-2); RBC Urine 0-2 /HPF (0-2); UACC Culture Trigger YES
[2023-10-08 04:31] LABS: Amphetamine Screen Urine Not Detected (Not Detect); Barbiturates, Urine Not Detected (Not Detect); Benzodiazepines Screen Urine Not Detected (Not Detect); Cannabinoid Screen Urine Not Detected (Not Detect); Cocaine Screen Urine Not Detected (Not Detect); Fentanyl, urine Not Detected (Not Detect); Opiate Screen Urine Not Detected (Not Detect); Phencyclidine Screen Urine Not Detected (Not Detect)
[2023-10-08 06:39] VITALS: BP 145/96; PULSE 116; RESP 17; TEMP 36.9; O2SAT 97
--- NOTE | 2023-10-08 08:52 | PC.NURSE ---
mom updated on current condition. states zion lives with her but has not been sleeping x 3-4 days and hearing voices. Does not take any homes meds and was transferred to [facility] facility yesterday. Mom states patient is normally continent and conversant. Call placed to care team for Patricia to come speak with mother
[2023-10-08] MEDS: cefuroxime axetiL 500 MG TABLET PO ×2 (09:26→19:53)
--- NOTE | 2023-10-08 09:28 | PC.NURSE ---
Alert but not verbally responsive. Shakes heads yes or no to questions. ate small amount for breakfast with mom at bedside. Denies pain. PO med as ordered
--- NOTE | 2023-10-08 09:31 | PC.NURSE ---
Patient admits to hearing voices and having thoughts of harmingherself. Mom at bedside, 1:[address]
--- NOTE | 2023-10-08 10:03 | PC.NURSE ---
Report given to POD RN
[2023-10-08] MEDS: OLANZapine ODT 10 MG TAB.RAPDIS TRANSLINGU (14:00)
--- NOTE | 2023-10-08 15:13 | PC.NURSE ---
pt medicated per MAR, appeared to be responding to internal stimuli, positive response to medication, pt out of room, drinking apple juice in common area.
[2023-10-08 15:21] VITALS: BP 151/105; PULSE 120; RESP 16; TEMP 36.8; O2SAT 100
--- NOTE | 2023-10-08 15:42 | PC.NURSE ---
Patient resting quietly in bed at this time, intermittently appearing to respond to internal stimuli. Intermittently needs redirection to return to her own room as she tries to lay in other patient's beds.
[2023-10-08] MEDS: clonazePAM 0.5 MG TABLET PO (19:53)
[2023-10-08] MEDS: risperiDONE 1 MG TABLET PO (19:53)
[2023-10-08 21:03] VITALS: BP 130/95; PULSE 110; RESP 20; TEMP 37.1; O2SAT 99
--- NOTE | 2023-10-08 23:25 | MHC.CARE ---
RAD Team conducted state wide bed search for this pt, referral was sent to [place], [facility], [facility], [facility], [facility], [facility], [facility], [facility], [facility], [facility] for review. RAD Team to follow up tomorrow
--- NOTE | 2023-10-09 04:39 | PC.NURSE ---
Patient currently in bed appears sleeping, slept most part of the night, no distress observed/reported, VSS, patient has delayed response, follows direction poorly, requires extensive queuing for med administration, + for UTI treated with Ceftin 500 mg BID, med rec completed however patient is started on newer medication by psych, patient was assessed by Care Team disposition is section 12 inpatient bed search, will continue to monitor.
[2023-10-09 06:10] VITALS: RESP 16
--- NOTE | 2023-10-09 07:13 | PC.NURSE ---
Assumed care of patient at 0700, patient appears to be sleeping at this time, respirations even and unlabored, no apparent distress noted. Per previous RN, patient was positive for both UTI and Covid. Pt is on Ceftin for UTI. Continue plan of care for Sec 12, inpt bedsearch
--- NOTE | 2023-10-09 09:05 | PC.NURSE ---
This RN attempted to give patient morning medications, pt acting very disoriented, this RN attempted to orient patient to room and location, pt attempting to fall back asleep. When presented with medications again, patient played with the medication in her hand without taking it. Pt refusing morning medications at this time
--- NOTE | 2023-10-09 09:14 | PC.NURSE ---
Pt attempting to ambulate out of room topless. Pt difficult to redirect to her room, attempting to sit in pod chair in the milieu. This RN and KAROLINA Talley attempted to redirect patient back to room, placing gown on again. Patient was redirected back to room by DARRON Henderson. Now laying in bed, no apparent distress noted
[2023-10-09 09:32] LABS: COVID-19 Test Negative (Negative); IDNOW Serial# 08D9AD1C
--- NOTE | 2023-10-09 10:37 | MHC.EDTECH ---
Patient refused vitals.
--- NOTE | 2023-10-09 11:04 | PC.NURSE ---
Pt presenting with very disorganized bizarre behavior. attempting to disrobe, lay on the floor in front of the pod doors and is not responding verbally to this RN or DARRON Talley. Pts affect is flat, eye contact is minimal. Pt had to be carried by this RN and DARRON Talley back to her room due to inability to follow verbal directions at this time
--- NOTE | 2023-10-09 13:51 | PC.NURSE ---
attempted EKG, patient refusing to move onto back
[2023-10-09 18:00] VITALS: PULSE 97; RESP 16; O2SAT 98
--- NOTE | 2023-10-09 18:32 | PC.NURSE ---
Pt admitted to the floor. upon arrival, she layed self on the floor infront of nurses station. refusded to get up. each time we tried to talk to her she would roll over the other way. she needed assistance to get to her room. initally was able to walk but then tried to lower self to the floor and was assisted to her bed. refused vitals, refused place change roof bolter/skin check. pulled away each time we tried to do something. was responding to questions by shaking head yes or no. Shaka tried to meet with patient and she refused or was unable to communicate as evidenced by her rolling over in the opposite direction. refused new name band.
--- NOTE | 2023-10-09 20:39 | PC.NURSE ---
Pt refused flu vaccine at this time
--- NOTE | 2023-10-09 21:24 | PC.ADMIT ---
Preeti is a 22-year-old female admitted from [facility] to M5 on a 12b for treatment of unspecified anxiety disorder. Tox screen negative. Pt is on abx for UTI. Per crisis eval, pt has decompensated over the last two weeks presenting as significantly disoriented with impaired insight, endorsing auditory hallucinations, paranoia and inability to care for herself. Pt hasn't been eating, drinking or sleeping. Upon arrival to the unit, pt was uncooperative with admission assessment and refused to talk to staff. Pt would either cover her eyes or walk away. Pt appeared disorganized and disoriented and would need frequent redirection from going into other patients' rooms. Pt also needed redirection from laying in her roommate's bed. Pt appeared paranoid and internally preoccupied and was seen mumbling to herself and stating I'm not allowed to talk. RN asked pt to do a skin check but pt refused and walked away. Pt refused to put on her wristband and refused to take her medications. Pt placed on 15 minute safety checks.
--- NOTE | 2023-10-09 22:36 | PC.NURSE ---
Addendum entered by Mari Taylor RN 10/09/23 22:57: Pt placed on 5 minute checks for safety. Original Note: Pt laid on the floor in the hallway and became agitated when staff would try and help her up and redirect her to her room. Pt declined to speak or acknowledge staff. Pt continues to present as confused and disorganized and needed frequent redirection from going in her roommates bed or trying to open other doors.
--- NOTE | 2023-10-10 06:18 | PC.NURSE ---
PT WAS INCONTINENT OF URINE AROUND 0530 AND LAID ON THE GROUND IN THE HALLWAY. PT WOULD NOT RESPOND TO VERBAL DIRECTION INITIALLY TO CHANGE HER CLOTHING OR SHOWER. PT WAS ASSISTED TO HER ROOM BY STAFF AND HELPED HER CHANGE HER CLOTHING. PT ATTEMPTED TO ELOPE OFF THE UNIT THREE TIMES THROUGHOUT THE NIGHT.
[2023-10-10 08:17] VITALS: RESP 18
--- NOTE | 2023-10-10 09:19 | PHA.MEDREC ---
Pharmacy Consult ? Medication Reconciliation Pharmacy has completed the medication reconciliation. Pharmacy has reviewed med rec done by Maxi.
--- NOTE | 2023-10-10 16:52 | HO.PSYADMNOT ---
HPI Date of Service: 10/10/23 Chief Complaint: Depresssion Sources of Information: patient interviewed, chart reviewed and crisis/core team assessment reviewed Additional Sources of Information: pt seen and discussed in team HPI Subjective Notes: Lai Warning and Section 12B Medical Problems Affecting Mental Status: No Narrative: 22 yr old admitted to M5 after arriving to [facility] ED via ambulance. Pt was at [facility] in [place] when she experienced quick decompensation over 2 week with withdrawal, disorientation, impaired insight, not eating and drinking, auditory hallucinations, paranoia and SI. Pt presents today disorganized, withdrawn, barely speaking, saying very few words and words are mumbled and almost inaudible; she shakes head yes or no at times. She endorses auditory hallucinations but does not described when asked; she endorses suicidal ideation with ideas of hurting herself and wanting to but does not describe plan or answer about intent. she is lying in bed, poor eye contact. Per care team evaluation pt had been manic and not sleeping for several weeks; her mother described her roaming the house at night. Pt had recent covid infection. Pt has therapy and psychiatry at [facility] clinic Pt has been off all meds for 3 months due to all meds tried made her sick per mother's report. Pt unable to repsond to information regarding conditional voluntary and unable to sign slef into unti due to mental staus; she remains on section 12 B Past Psychiatric History: evaluated by care team at [facility] in past on 09/22/23 for reported overdose of 3 tablets of benadryl 25mg; inpatient at [facility] 2018. [facility]. Ongoing outpatient at [facility] Medical Evaluation Reviewed: Yes GERD Current UTI on antibiotic POTS per record Benign reactive Hypertension supraventricular Tachycardia -multiple workups including 3 day holter hx vit B deficincey hx vit D deficiency migraines hx ovarian cysts PMFSH Medical History Contraception management Vitamin D deficiency Vitamin B12 deficiency Uses control Hx of ovarian cyst Epigastric abdominal pain Orthostatic hypotension Supraventricular tachycardia by ECG Major depression in partial remission Left ovarian cyst Migraine Surgical History H/O removal of cyst Family History: lives with mother and grandfather Social History: has BF per mother but he dosed not live locally Substance History: denies per record and tox screen negative Trauma History: pt unable to answer today Diagnostics Vital Signs (24Hr): Vital Signs - 24 hr 10/09/23 18:00 10/10/23 08:17 Pulse Rate 97 Respiratory Rate 16 18 Pulse Oximetry 98 Oxygen Delivery Method Room Air BMI result Body Mass Index 21.6 Labs 10/08/23 02:18 10/08/23 02:18 Labs: Laboratory Results - last 48 hr 10/09/23 08:58 COVID-19 ([facility]) Negative COVID-19 Clin Com See Note EKG EKG: reviewed EKG Comment: hx of tachycardai Imaging Radiology Impressions: ITS Impressions Head CT 10/08/23 21:15 IMPRESSION: Unremarkable CT scan of the head. No evidence of acute territorial infarct or hemorrhage. Meds/Allergies Meds Home Medications Medication Instructions Recorded Confirmed Type famotidine 20 mg tablet 20 mg PO BEDTIME 10/08/23 10/08/23 History lorazepam 0.5 mg tablet 0.5 mg PO DAILY PRN panic attack 10/08/23 10/08/23 History lumateperone 21 mg capsule 21 mg PO DAILY 10/08/23 10/08/23 History (Caplyta) pantoprazole 20 mg tablet,delayed 20 mg PO DAILY 10/08/23 10/08/23 History release Allergies Allergies Allergy/AdvReac Type Severity Reaction Status Date / Time metoprolol AdvReac Diarrhea Verified 10/07/23 23:43 Mental Status Exam Mental Status Exam Patient Appearance: Disheveled and Unkempt Level of Consciousness: Awake Patient Behavior: Passive, Confused and Poor Eye Contact Mood Description: Withdrawn Affect Description: Flat Patient Cognition Impaired: Yes Ability to Follow Directions: Poor Speech Pattern: Impoverished, Whisper and Mumbled Thought Process: Incoherent Thought Content: positive for Poverty of Content Judgement: Poor Assessment & Plan Assessment & Plan (1) Auditory hallucinations: Status: Acute Code(s): R44.0 - Auditory hallucinations (2) Suicidal ideation: Status: Acute Code(s): R45.851 - Suicidal ideations (3) Major depression: Status: Acute Code(s): F32.9 - Major depressive disorder, single episode, unspecified Plan 22 yo female with histroy of depression and anxiety admitted to M5 due to rapid decompensation in context of recent covid infection. She is interanlly preoccupied and disorganixed as well as almosy mute with very few verabl utterances- whispering and mumbling. Plan Pt unable to sign Cv Continue sect 12B Labs: vit b12, vit D, magnesium, lyme testing collect collateral including if HCP Patient educated on: diagnosis, medication risk/benefits and therapeutic strategies Informed Consent: does not understand Reason for continued inpatient stay Substantial Risk for: harm to self, inability to function, rapid decompensation and med/psych decompensation Statement Statement: I have reviewed the history and physical and performed a pertinent examination on my patient. No changes have occurred unless specified. If the History and Physical was not performed prior to admission, the Hospitalist's service will be consulted for completing the admission physical. Time Spent With Patient Time: Total time managing care of this patient today ____ minutes.
[2023-10-10 19:50] VITALS: BP 125/90; PULSE 118; TEMP 37.1
[2023-10-11 06:00] VITALS: RESP 18
[2023-10-11] MEDS: clonazePAM 0.5 MG TABLET PO ×2 (10:53→20:48)
[2023-10-11] MEDS: risperiDONE 1 MG TABLET PO ×2 (10:53→20:48)
[2023-10-11] MEDS: cefuroxime axetiL 500 MG TABLET PO (10:56)
[2023-10-11] MEDS: OLANZapine ODT 10 MG TAB.RAPDIS TRANSLINGU ×2 (11:09→19:11)
--- NOTE | 2023-10-11 15:30 | P.PNPSI_ITS ---
Subjective Subjective Date of Service: 10/11/23 Reason For Visit: Depresssion Subjective Notes: Section 12B Interim History: 22 yr old admitted with history of Depression and psychosis. Pt was at [facility] in [place] when she experienced quick decompensation over 2 week with withdrawal, disorientation, impaired insight, not eating and drinking, auditory hallucinations, paranoia and SI. Pt continues to present with disorganization, withdrawn, barely speaking, saying very few words and words are mumbled and almost inaudible; she shakes head yes or no at times. She endorses auditory hallucinations but does not described when asked; she endorses suicidal ideation with ideas of hurting herself and wanting to but does not describe plan or answer about intent. she is lying in bed, poor eye contact. She tried to elope from unit overnight. She was moved to single room 505 due to taking roomates belongings, she was vomiting and spitting in kitchen area and stating it is from anxiety; She took medications otday as scheduled; continues to be unable to sign conditional voluntary; when discussed pt face remains blank and she does not open eyes nor speak. She remains on 12 B Medication Compliance: Yes Side effects from medications: No Attending Groups: No Review of Systems Acute medical concerns: No Medical Review of Systems: unchanged Review of Systems Review of Systems unchanged per record GERD Current UTI on antibiotic POTS per record Benign reactive Hypertension supraventricular Tachycardia -multiple workups including 3 day holter hx vit B deficincey hx vit D deficiency migraines hx ovarian cysts Mental Status Exam Mental Status Exam Patient Appearance: Disheveled, Inappropriate and Unkempt Level of Consciousness: Awake Patient Behavior: Passive and Wandering Behavior Comments: spontaneously sitting on floor, taking others belongings, Mood Description: Withdrawn and Flat Affect Description: Withdrawn Patient Cognition Impaired: Yes Ability to Follow Directions: Poor Speech Pattern: Impoverished, Whisper and Mumbled Hallucinations: Auditory Thought Process: Disoriented Thought Content: positive for Suicidal Ideation Judgement: Poor Judgement and Insight: poor insight and judgment Diagnostics Vital Signs (24Hr): Vital Signs - 24 hr 10/10/23 19:50 10/11/23 06:00 Temperature 98.8 F Pulse Rate 118 H Respiratory Rate 18 Blood Pressure 125/90 H BMI result Body Mass Index 21.6 Labs 10/08/23 02:18 10/08/23 02:18 EKG EKG: reviewed Imaging Radiology Impressions: ITS Impressions Head CT 10/08/23 21:15 IMPRESSION: Unremarkable CT scan of the head. No evidence of acute territorial infarct or hemorrhage. Medications Medications Current Medications Acetaminophen (Acetaminophen 325 Mg Tablet) 650 mg PO Q6H PRN PRN Reason: Headache/Pain Mild Scale (1-3) Al Hydroxide/Mg Hydroxide (Magnesium Hydrox/Alum Hydrox 30 Ml Oral.Susp) 30 ml PO Q6H PRN PRN Reason: Heartburn/Nausea Cefuroxime Axetil (Cefuroxime Axetil 500 Mg Tablet) 500 mg PO BID [facility] Last Admin: 10/11/23 10:56 Dose: 500 mg Clonazepam (Clonazepam 0.5 Mg Tablet) 0.5 mg PO BID [facility] Last Admin: 10/11/23 10:53 Dose: 0.5 mg Famotidine (Famotidine 20 Mg Tablet) 20 mg PO BEDTIME [facility] Last Admin: 10/10/23 20:01 Dose: Not Given Hydroxyzine HCl (Hydroxyzine Hcl 25 Mg Tablet) 25 mg PO Q6H PRN PRN Reason: Anxiety Lorazepam (Lorazepam 0.5 Mg Tablet) 0.5 mg PO DAILY PRN PRN Reason: panic attack Magnesium Hydroxide (Milk Of Magnesia 30 Ml Oral.Susp) 30 ml PO DAILY PRN PRN Reason: Constipation Non-Formulary Medication (Lumateperone [Caplyta]) 21 mg PO DAILY [facility] Olanzapine (Olanzapine Odt 10 Mg Tab.Rapdis) 10 mg TRANSLINGU BID PRN PRN Reason: Hallucinations Last Admin: 10/11/23 11:09 Dose: 10 mg Omeprazole (Omeprazole 20 Mg Capsule.Dr) 20 mg PO DAILY@0630 [facility] Last Admin: 10/11/23 11:01 Dose: Not Given Risperidone (Risperidone 1 Mg Tablet) 1 mg PO BID [facility] Last Admin: 10/11/23 10:53 Dose: 1 mg Trazodone HCl (Trazodone Hcl 50 Mg Tablet) 50 mg PO BEDTIME MRX1 PRN PRN Reason: Insomnia Allergies Allergies Allergy/AdvReac Type Severity Reaction Status Date / Time metoprolol AdvReac Diarrhea Verified 10/07/23 23:43 Assessment & Plan Assessment & Plan (1) Major depressive disorder, recurrent episode, severe, with psychosis: Status: Acute Code(s): F33.3 - Major depressive disorder, recurrent, severe with psychotic symptoms Plan 22 yo female with history of depression and anxiety admitted to M5 due to rapid decompensation in context of recent covid infection. She is internally preoccupied and disorganized as well as almost mute with very few verbal utterances- whispering and mumbling. Unable to sign CV today; did take medication today; will see if she clears up cognitively through the weekend and can sign CV but if unable may have to file. Plan Pt unable to sign CV Continue sect 12B Labs: vit b12, vit D, magnesium, lyme testing collect collateral including if HCP 10/11/continue tx plan Reason for continued inpatient stay Substantial Risk for: harm to self, inability to function and rapid decompensation Time Spent With Patient Time: Total time managing care of this patient today ____ minutes.
[2023-10-11] MEDS: LORazepam 0.5 MG TABLET PO (19:11)
[2023-10-11 19:40] VITALS: RESP 18
[2023-10-11] MEDS: Famotidine 20 MG TABLET PO (20:48)
[2023-10-12 06:00] VITALS: RESP 18
[2023-10-12] MEDS: clonazePAM 0.5 MG TABLET PO ×2 (08:46→19:29)
[2023-10-12] MEDS: risperiDONE 1 MG TABLET PO ×2 (08:46→19:29)
[2023-10-12] MEDS: Omeprazole 20 MG CAPSULE.DR PO (08:46)
[2023-10-12] MEDS: LORazepam 0.5 MG TABLET PO (12:25)
--- NOTE | 2023-10-12 14:56 | HO.PSYCHPN ---
Subjective Subjective Date of Service: 10/12/23 Reason For Visit: Depresssion Interim History: Presentation unchanged from description below except she is now being watched after she takes her medications to avoid her spitting them out. She was described as volitionally vomiting. She would spit food and drink. She went into the shower with clothes on and put conditioner without rinsing it and needed help with showering. She would not acknowledge examiner and continued walking past him. She appeared preoccupied internally. Per note from yesterday: 22 yr old admitted with history of Depression and psychosis. Pt was at [facility] in [place] when she experienced quick decompensation over 2 week with withdrawal, disorientation, impaired insight, not eating and drinking, auditory hallucinations, paranoia and SI. Pt continues to present with disorganization, withdrawn, barely speaking, saying very few words and words are mumbled and almost inaudible; she shakes head yes or no at times. She endorses auditory hallucinations but does not described when asked; she endorses suicidal ideation with ideas of hurting herself and wanting to but does not describe plan or answer about intent. she is lying in bed, poor eye contact. She tried to elope from unit overnight. She was moved to single room 505 due to taking roomates belongings, she was vomiting and spitting in kitchen area and stating it is from anxiety; She took medications otday as scheduled; continues to be unable to sign conditional voluntary; when discussed pt face remains blank and she does not open eyes nor speak. She remains on 12 B Review of Systems Review of Systems unchanged per record GERD Current UTI on antibiotic POTS per record Benign reactive Hypertension supraventricular Tachycardia -multiple workups including 3 day holter hx vit B deficincey hx vit D deficiency migraines hx ovarian cysts Yes all other systems are reviewed and are negative and Unobtainable due to mental status Mental Status Exam Mental Status Exam Patient Appearance: Disheveled, Inappropriate and Unkempt Level of Consciousness: Awake Patient Behavior: Passive and Wandering Behavior Comments: spontaneously sitting on floor, taking others belongings, Mood Description: Withdrawn and Flat Affect Description: Withdrawn Patient Cognition Impaired: Yes Ability to Follow Directions: Poor Speech Pattern: Impoverished, Whisper and Mumbled Thought Process: Slowed Thinking and Confusion Thought Content: positive for Poverty of Content, positive for Preoccupation and positive for Slowed Thinking Diagnostics Vital Signs (24Hr): Vital Signs - 24 hr 10/11/23 19:40 10/12/23 06:00 Respiratory Rate 18 18 BMI result Body Mass Index 21.6 Labs 10/08/23 02:18 10/08/23 02:18 Imaging Radiology Impressions: ITS Impressions Head CT 10/08/23 21:15 IMPRESSION: Unremarkable CT scan of the head. No evidence of acute territorial infarct or hemorrhage. Medications Medications Current Medications Acetaminophen (Acetaminophen 325 Mg Tablet) 650 mg PO Q6H PRN PRN Reason: Headache/Pain Mild Scale (1-3) Al Hydroxide/Mg Hydroxide (Magnesium Hydrox/Alum Hydrox 30 Ml Oral.Susp) 30 ml PO Q6H PRN PRN Reason: Heartburn/Nausea Cefuroxime Axetil (Cefuroxime Axetil 500 Mg Tablet) 500 mg PO BID [facility] Last Admin: 10/12/23 09:11 Dose: Not Given Clonazepam (Clonazepam 0.5 Mg Tablet) 0.5 mg PO BID [facility] Last Admin: 10/12/23 08:46 Dose: 0.5 mg Famotidine (Famotidine 20 Mg Tablet) 20 mg PO BEDTIME [facility] Last Admin: 10/11/23 20:48 Dose: 20 mg Hydroxyzine HCl (Hydroxyzine Hcl 25 Mg Tablet) 25 mg PO Q6H PRN PRN Reason: Anxiety Lorazepam (Lorazepam 0.5 Mg Tablet) 0.5 mg PO DAILY PRN PRN Reason: panic attack Last Admin: 10/12/23 12:25 Dose: 0.5 mg Magnesium Hydroxide (Milk Of Magnesia 30 Ml Oral.Susp) 30 ml PO DAILY PRN PRN Reason: Constipation Non-Formulary Medication (Lumateperone [Caplyta]) 21 mg PO DAILY [facility] Olanzapine (Olanzapine Odt 10 Mg Tab.Rapdis) 10 mg TRANSLINGU BID PRN PRN Reason: Hallucinations Last Admin: 10/11/23 19:11 Dose: 10 mg Omeprazole (Omeprazole 20 Mg Capsule.Dr) 20 mg PO DAILY@0630 [facility] Last Admin: 10/12/23 08:46 Dose: 20 mg Risperidone (Risperidone 1 Mg Tablet) 1 mg PO BID [facility] Last Admin: 10/12/23 08:46 Dose: 1 mg Trazodone HCl (Trazodone Hcl 50 Mg Tablet) 50 mg PO BEDTIME MRX1 PRN PRN Reason: Insomnia Allergies Allergies Allergy/AdvReac Type Severity Reaction Status Date / Time metoprolol AdvReac Diarrhea Verified 10/07/23 23:43 Assessment & Plan Assessment & Plan (1) Major depressive disorder, recurrent episode, severe, with psychosis: Status: Acute Code(s): F33.3 - Major depressive disorder, recurrent, severe with psychotic symptoms Plan 22 yo female with history of depression and anxiety admitted to due to rapid decompensation in context of recent covid infection. She is internally preoccupied and disorganized as well as almost mute with very few verbal utterances- whispering and mumbling. Unable to sign CV today; did take medication today; will see if she clears up cognitively through the weekend and can sign CV but if unable may have to file. Plan Pt unable to sign CV Continue sect 12B Labs: vit b12, vit D, magnesium, lyme testing collect collateral including if HCP 10/11/continue tx plan 10/12: Continue current management and treatment plan. Reason for continued inpatient stay Substantial Risk for: inability to function and rapid decompensation Time Spent With Patient Time: Total time managing care of this patient today ____ minutes.
[2023-10-12] MEDS: OLANZapine ODT 10 MG TAB.RAPDIS TRANSLINGU (16:37)
[2023-10-12 17:44] VITALS: BP 132/87; PULSE 113; RESP 18; TEMP 36.3; O2SAT 97
[2023-10-12] MEDS: cefuroxime axetiL 500 MG TABLET PO (19:29)
[2023-10-12] MEDS: traZODone HCL 50 MG TABLET PO (19:29)
[2023-10-12] MEDS: Famotidine 20 MG TABLET PO (19:29)
[2023-10-13] MEDS: Omeprazole 20 MG CAPSULE.DR PO (06:40)
[2023-10-13] MEDS: clonazePAM 0.5 MG TABLET PO ×2 (08:55→19:43)
[2023-10-13] MEDS: cefuroxime axetiL 500 MG TABLET PO ×2 (08:55→19:42)
[2023-10-13] MEDS: risperiDONE 1 MG TABLET PO ×2 (08:55→19:43)
[2023-10-13] MEDS: OLANZapine ODT 10 MG TAB.RAPDIS TRANSLINGU ×2 (08:55→19:43)
[2023-10-13] MEDS: Acetaminophen 325 MG TABLET 650 MG PO (09:37)
[2023-10-13 11:22] VITALS: PULSE 113; RESP 18; TEMP 36.3; O2SAT 97
--- NOTE | 2023-10-13 14:52 | P.PNPSI_ITS ---
Subjective Subjective Date of Service: 10/13/23 Reason For Visit: Depresssion Interim History: Patient remains disorganized and internally preoccupied. Minimal interaction except when repeatedly asked or encouraged then she says a few words answers mumbling. She would not acknowledge examiner and continued walking past him. She appeared preoccupied internally. Per note from yesterday: 22 yr old admitted with history of Depression and psychosis. Pt was at [facility] in [place] when she experienced quick decompensation over 2 week with withdrawal, disorientation, impaired insight, not eating and drinking, auditory hallucinations, paranoia and SI. Pt continues to present with disorganization, withdrawn, barely speaking, saying very few words and words are mumbled and almost inaudible; she shakes head yes or no at times. She endorses auditory hallucinations but does not described when asked; she endorses suicidal ideation with ideas of hurting herself and wanting to but does not describe plan or answer about intent. she is lying in bed, poor eye contact. She tried to elope from unit overnight. She was moved to single room [facility] due to taking roomates belongings, she was vomiting and spitting in kitchen area and stating it is from anxiety; She took medications otday as scheduled; continues to be unable to sign conditional voluntary; when discussed pt face remains blank and she does not open eyes nor speak. She remains on 12 B Review of Systems Review of Systems unchanged per record GERD Current UTI on antibiotic POTS per record Benign reactive Hypertension supraventricular Tachycardia -multiple workups including 3 day holter hx vit B deficincey hx vit D deficiency migraines hx ovarian cysts Yes all other systems are reviewed and are negative and Unobtainable due to mental status Mental Status Exam Mental Status Exam Patient Appearance: Disheveled, Inappropriate and Unkempt Level of Consciousness: Awake Patient Behavior: Passive and Wandering Behavior Comments: spontaneously sitting on floor, taking others belongings, Mood Description: Withdrawn and Flat Affect Description: Withdrawn Patient Cognition Impaired: Yes Ability to Follow Directions: Poor Speech Pattern: Impoverished, Whisper and Mumbled Diagnostics Vital Signs (24Hr): Vital Signs - 24 hr 10/12/23 17:44 10/13/23 11:22 Temperature 97.4 F 97.4 F Pulse Rate 113 H 113 H Respiratory Rate 18 18 Blood Pressure 132/87 Pulse Oximetry 97 97 Oxygen Delivery Method Room Air Room Air BMI result Body Mass Index 21.6 Labs 10/08/23 02:18 10/08/23 02:18 Imaging Radiology Impressions: ITS Impressions Head CT 10/08/23 21:15 IMPRESSION: Unremarkable CT scan of the head. No evidence of acute territorial infarct or hemorrhage. Medications Medications Current Medications Acetaminophen (Acetaminophen 325 Mg Tablet) 650 mg PO Q6H PRN PRN Reason: Headache/Pain Mild Scale (1-3) Last Admin: 10/13/23 09:37 Dose: 650 mg Al Hydroxide/Mg Hydroxide (Magnesium Hydrox/Alum Hydrox 30 Ml Oral.Susp) 30 ml PO Q6H PRN PRN Reason: Heartburn/Nausea Cefuroxime Axetil (Cefuroxime Axetil 500 Mg Tablet) 500 mg PO BID [facility] Last Admin: 10/13/23 08:55 Dose: 250 mg Clonazepam (Clonazepam 0.5 Mg Tablet) 0.5 mg PO BID [facility] Last Admin: 10/13/23 08:55 Dose: 0.5 mg Famotidine (Famotidine 20 Mg Tablet) 20 mg PO BEDTIME [facility] Last Admin: 10/12/23 19:29 Dose: 20 mg Hydroxyzine HCl (Hydroxyzine Hcl 25 Mg Tablet) 25 mg PO Q6H PRN PRN Reason: Anxiety Lorazepam (Lorazepam 0.5 Mg Tablet) 0.5 mg PO DAILY PRN PRN Reason: panic attack Last Admin: 10/12/23 12:25 Dose: 0.5 mg Magnesium Hydroxide (Milk Of Magnesia 30 Ml Oral.Susp) 30 ml PO DAILY PRN PRN Reason: Constipation Non-Formulary Medication (Lumateperone [Caplyta]) 21 mg PO DAILY [facility] Olanzapine (Olanzapine Odt 10 Mg Tab.Rapdis) 10 mg TRANSLINGU BID PRN PRN Reason: Hallucinations Last Admin: 10/13/23 08:55 Dose: 10 mg Omeprazole (Omeprazole 20 Mg Capsule.Dr) 20 mg PO DAILY@0630 [facility] Last Admin: 10/13/23 06:40 Dose: 20 mg Risperidone (Risperidone 1 Mg Tablet) 1 mg PO BID [facility] Last Admin: 10/13/23 08:55 Dose: 1 mg Trazodone HCl (Trazodone Hcl 50 Mg Tablet) 50 mg PO BEDTIME MRX1 PRN PRN Reason: Insomnia Last Admin: 10/12/23 19:29 Dose: 50 mg Allergies Allergies Allergy/AdvReac Type Severity Reaction Status Date / Time metoprolol AdvReac Diarrhea Verified 10/07/23 23:43 Assessment & Plan Assessment & Plan (1) Major depressive disorder, recurrent episode, severe, with psychosis: Status: Acute Code(s): F33.3 - Major depressive disorder, recurrent, severe with psychotic symptoms Plan 22 yo female with history of depression and anxiety admitted to due to rapid decompensation in context of recent covid infection. She is internally preoccupied and disorganized as well as almost mute with very few verbal utterances- whispering and mumbling. Unable to sign CV today; did take medication today; will see if she clears up cognitively through the weekend and can sign CV but if unable may have to file. Plan Pt unable to sign CV Continue sect 12B Labs: vit b12, vit D, magnesium, lyme testing collect collateral including if HCP 10/11/continue tx plan 10/12: Continue current management and treatment plan. 10/13: continue current management and treatment plan. Reason for continued inpatient stay Substantial Risk for: inability to function, rapid decompensation and med/psych decompensation Time Spent With Patient Time: Total time managing care of this patient today ____ minutes.
[2023-10-13] MEDS: Magnesium Hydrox/Alum Hydrox 30 ML ORAL.SUSP PO (16:17)
[2023-10-13] MEDS: traZODone HCL 50 MG TABLET PO (19:43)
[2023-10-13] MEDS: Famotidine 20 MG TABLET PO (19:43)
[2023-10-14] MEDS: Omeprazole 20 MG CAPSULE.DR PO (06:55)
[2023-10-14] MEDS: risperiDONE 1 MG TABLET PO (08:32)
[2023-10-14 08:45] VITALS: BP 146/78; PULSE 128; RESP 18; TEMP 36.3; O2SAT 96
[2023-10-14 09:00] VITALS: PULSE 120
--- NOTE | 2023-10-14 11:22 | HO.PSYCHPN ---
Subjective Subjective Date of Service: 10/14/23 Reason For Visit: Depresssion Subjective Notes: Lai Warning and Conditional Voluntary Healthcare Proxy: No Medical Problems Affecting Mental Status: No Interim History: 22 yr old admitted with history of Depression and psychosis. Pt was at [facility] in [place] when she experienced quick decompensation over 2 week with withdrawal, disorientation, impaired insight, not eating and drinking, auditory hallucinations, paranoia and SI. Pt seen and discussed in treatment team; Patient remains disorganized and internally preoccupied. Pt taking medications - has history of cheeking medications so bears careful watching. Pt more alert today; sitting up in bed; making intermittent eye contact; pt oriented to date, place, person. Pt knew todays date and her birthday. Pt does state she thinks police are outside waiting for her because she has done bad things; She was able to sign CV today and able to say she wants help. Medication Compliance: Yes Side effects from medications: No Attending Groups: No Review of Systems Acute medical concerns: No Medical Review of Systems: unchanged Review of Systems Review of Systems unchanged per record GERD Current UTI on antibiotic POTS per record Benign reactive Hypertension supraventricular Tachycardia -multiple workups including 3 day holter hx vit B deficincey hx vit D deficiency migraines hx ovarian cysts Yes all other systems are reviewed and are negative and Unobtainable due to mental status Mental Status Exam Mental Status Exam Patient Appearance: Disheveled, Inappropriate and Unkempt Patient Orientation: Person, Place, Time and Situation Level of Consciousness: Awake Patient Behavior: Guarded, Passive, Wandering and Poor Eye Contact Behavior Comments: spontaneously sitting on floor, taking others belongings, Mood Description: Withdrawn and Flat Affect Description: Withdrawn Patient Cognition Impaired: Yes Ability to Follow Directions: Fair Speech Pattern: Impoverished and Whisper Hallucinations: Auditory and Visual (hear people saying not to talk to staff) Delusions: Paranoid Ideation ([employer] police are waiting for due to being bad) Perceptual Disturbances: Hallucinations Thought Process: Distracted Thought Content: positive for Poverty of Content, positive for Preoccupation, positive for Thought Blocking and positive for Suicidal Ideation Judgement: Poor Diagnostics Vital Signs (24Hr): BMI result Body Mass Index 21.6 Labs 10/08/23 02:18 10/08/23 02:18 Imaging Radiology Impressions: ITS Impressions Head CT 10/08/23 21:15 IMPRESSION: Unremarkable CT scan of the head. No evidence of acute territorial infarct or hemorrhage. Medications Medications Current Medications Acetaminophen (Acetaminophen 325 Mg Tablet) 650 mg PO Q6H PRN PRN Reason: Headache/Pain Mild Scale (1-3) Last Admin: 10/13/23 09:37 Dose: 650 mg Al Hydroxide/Mg Hydroxide (Magnesium Hydrox/Alum Hydrox 30 Ml Oral.Susp) 30 ml PO Q6H PRN PRN Reason: Heartburn/Nausea Last Admin: 10/13/23 16:17 Dose: 30 ml Cefuroxime Axetil (Cefuroxime Axetil 500 Mg Tablet) 500 mg PO BID [facility] Last Admin: 10/14/23 08:37 Dose: Not Given Famotidine (Famotidine 20 Mg Tablet) 20 mg PO BEDTIME [facility] Last Admin: 10/13/23 19:43 Dose: 20 mg Hydroxyzine HCl (Hydroxyzine Hcl 25 Mg Tablet) 25 mg PO Q6H PRN PRN Reason: Anxiety Lorazepam (Lorazepam 0.5 Mg Tablet) 0.5 mg PO DAILY PRN PRN Reason: panic attack Last Admin: 10/12/23 12:25 Dose: 0.5 mg Magnesium Hydroxide (Milk Of Magnesia 30 Ml Oral.Susp) 30 ml PO DAILY PRN PRN Reason: Constipation Non-Formulary Medication (Lumateperone [Caplyta]) 21 mg PO DAILY [facility] Olanzapine (Olanzapine Odt 10 Mg Tab.Rapdis) 10 mg TRANSLINGU BID PRN PRN Reason: Hallucinations Last Admin: 10/13/23 19:43 Dose: 10 mg Omeprazole (Omeprazole 20 Mg Capsule.Dr) 20 mg PO DAILY@0630 [facility] Last Admin: 10/14/23 06:55 Dose: 20 mg Risperidone (Risperidone 1 Mg Tablet) 1 mg PO BID [facility] Last Admin: 10/14/23 08:32 Dose: 1 mg Trazodone HCl (Trazodone Hcl 50 Mg Tablet) 50 mg PO BEDTIME MRX1 PRN PRN Reason: Insomnia Last Admin: 10/13/23 19:43 Dose: 50 mg Allergies Allergies Allergy/AdvReac Type Severity Reaction Status Date / Time metoprolol AdvReac Diarrhea Verified 10/07/23 23:43 Assessment & Plan Assessment & Plan (1) Major depressive disorder, recurrent episode, severe, with psychosis: Status: Acute Code(s): F33.3 - Major depressive disorder, recurrent, severe with psychotic symptoms Plan 22 yo female with history of depression and anxiety admitted to [facility] due to rapid decompensation in context of recent covid infection. She is internally preoccupied and disorganized as well as almost mute with very few verbal utterances- whispering and mumbling. Unable to sign CV today; did take medication today; will see if she clears up cognitively through the weekend and can sign CV but if unable may have to file. Plan CV 5 min checks collect collateral including if HCP 10/11/continue tx plan 10/12: Continue current management and treatment plan. 10/13: continue current management and treatment plan. 10/14 risperidone changed to liquid Patient educated on: diagnosis, medication risk/benefits and therapeutic strategies Informed Consent: understands and further education needed Reason for continued inpatient stay Substantial Risk for: harm to self, inability to function and rapid decompensation Time Spent With Patient Time: Total time managing care of this patient today _60___ minutes.
[2023-10-14] MEDS: risperiDONE Oral Sol 1 MG/ML SOLUTION PO ×2 (14:43→20:29)
[2023-10-14 18:00] VITALS: BP 156/88; PULSE 144; RESP 18; TEMP 36; O2SAT 96
[2023-10-14] MEDS: clonazePAM 0.5 MG TABLET PO (20:29)
[2023-10-14] MEDS: Famotidine 20 MG TABLET PO (20:29)
[2023-10-14] MEDS: traZODone HCL 50 MG TABLET PO (20:29)
[2023-10-14] MEDS: OLANZapine ODT 10 MG TAB.RAPDIS TRANSLINGU (20:29)
[2023-10-14] MEDS: cefuroxime axetiL 500 MG TABLET PO (20:29)
[2023-10-14 21:45] LABS: Influenza A PCR NEGATIVE (Negative); Influenza B PCR NEGATIVE (Negative); Resp Syncy Virus RNA Qual PCR NEGATIVE (Negative); SARS COV2 PCR INHOUSE NEGATIVE (Negative)
[2023-10-15] MEDS: Omeprazole 20 MG CAPSULE.DR PO (06:23)
[2023-10-15 08:03] VITALS: BP 116/68; PULSE 120; RESP 16; TEMP 36.3; O2SAT 100
[2023-10-15] MEDS: clonazePAM 0.5 MG TABLET PO ×2 (08:47→21:25)
[2023-10-15] MEDS: risperiDONE Oral Sol 1 MG/ML SOLUTION PO ×2 (08:50→19:55)
--- NOTE | 2023-10-15 10:07 | HO.PSYCHPN ---
Subjective Subjective Date of Service: 10/15/23 Reason For Visit: Depresssion Subjective Notes: Lai Warning and Conditional Voluntary Healthcare Proxy: No Guardianship: No Medical Problems Affecting Mental Status: Yes (UTI) Interim History: 22 yr old admitted with history of Depression and psychosis. Pt was at [facility] in [place] when she experienced quick decompensation over 2 week with withdrawal, disorientation, impaired insight, not eating and drinking, auditory hallucinations, paranoia and SI. Pt seen and discussed in treatment team;Pt on CV and 5 min checks. She continues to endorse SI and paranoid ideas. Patient remains disorganized and internally preoccupied. Pt liquid taking medications - has history of cheeking medications. Pt more alert today; sitting up in bed; making intermittent eye contact; pt oriented to date, place, person. Pt does state she thinks police are outside waiting for her because she has done bad things; she is eating and drinking small amount of food and water; able to ask for her water when with her. Pt refused labs on admission; will reorder; pt urine culture came back with mixed laurie most like contamination- no UTI- antibiotic will be d/c Medication Compliance: Intermittent Side effects from medications: No Attending Groups: No Review of Systems Acute medical concerns: Yes Medical Review of Systems: unchanged Review of Systems Review of Systems unchanged per record GERD POTS per record Benign reactive Hypertension supraventricular Tachycardia -multiple workups including 3 day holter hx vit B deficincey hx vit D deficiency migraines hx ovarian cysts Yes all other systems are reviewed and are negative and Unobtainable due to mental status Mental Status Exam Mental Status Exam Patient Appearance: Disheveled, Inappropriate and Unkempt Patient Orientation: Person, Place, Time and Situation Level of Consciousness: Awake Patient Behavior: Guarded, Passive, Wandering and Poor Eye Contact Behavior Comments: spontaneously sitting on floor, taking others belongings, Mood Description: Withdrawn and Flat Affect Description: Withdrawn Patient Cognition Impaired: Yes Ability to Follow Directions: Fair (improving) Speech Pattern: Impoverished, Whisper and Soft-Spoken (a few more verbalizations today) Hallucinations: Auditory and Command Delusions: Paranoid Ideation Thought Process: Distracted and Confusion Thought Content: positive for Preoccupation Judgement: Poor Diagnostics Vital Signs (24Hr): Vital Signs - 24 hr 10/14/23 18:00 10/15/23 08:03 Temperature 96.8 F 97.4 F Pulse Rate 144 H 120 H Respiratory Rate 18 16 Blood Pressure 156/88 H 116/68 Pulse Oximetry 96 100 Oxygen Delivery Method Room Air Room Air BMI result Body Mass Index 21.6 Labs 10/08/23 02:18 10/08/23 02:18 Labs: Laboratory Results - last 48 hr 10/14/23 20:41 Influenza Type A (PCR) NEGATIVE Influenza Type B (PCR) NEGATIVE RSV RNA Qual (PCR) NEGATIVE SARS-CoV-2 RNA (RT-PCR) NEGATIVE Imaging Radiology Impressions: ITS Impressions Head CT 10/08/23 21:15 IMPRESSION: Unremarkable CT scan of the head. No evidence of acute territorial infarct or hemorrhage. Medications Medications Current Medications Acetaminophen (Acetaminophen 325 Mg Tablet) 650 mg PO Q6H PRN PRN Reason: Headache/Pain Mild Scale (1-3) Last Admin: 10/13/23 09:37 Dose: 650 mg Al Hydroxide/Mg Hydroxide (Magnesium Hydrox/Alum Hydrox 30 Ml Oral.Susp) 30 ml PO Q6H PRN PRN Reason: Heartburn/Nausea Last Admin: 10/13/23 16:17 Dose: 30 ml Cefuroxime Axetil (Cefuroxime Axetil 500 Mg Tablet) 500 mg PO BID [facility] Last Admin: 10/15/23 09:01 Dose: Not Given Clonazepam (Clonazepam 0.5 Mg Tablet) 0.5 mg PO BID [facility] Last Admin: 10/15/23 08:47 Dose: 0.5 mg Famotidine (Famotidine 20 Mg Tablet) 20 mg PO BEDTIME [facility] Last Admin: 10/14/23 20:29 Dose: 20 mg Hydroxyzine HCl (Hydroxyzine Hcl 25 Mg Tablet) 25 mg PO Q6H PRN PRN Reason: Anxiety Lorazepam (Lorazepam 0.5 Mg Tablet) 0.5 mg PO DAILY PRN PRN Reason: panic attack Last Admin: 10/12/23 12:25 Dose: 0.5 mg Magnesium Hydroxide (Milk Of Magnesia 30 Ml Oral.Susp) 30 ml PO DAILY PRN PRN Reason: Constipation Non-Formulary Medication (Lumateperone [Caplyta]) 21 mg PO DAILY [facility] Olanzapine (Olanzapine Odt 10 Mg Tab.Rapdis) 10 mg TRANSLINGU BID PRN PRN Reason: Hallucinations Last Admin: 10/14/23 20:29 Dose: 10 mg Omeprazole (Omeprazole 20 Mg Capsule.) 20 mg PO DAILY@0630 [facility] Last Admin: 10/15/23 06:23 Dose: 20 mg Risperidone (Risperidone Oral [place] 1 Mg/Ml Solution) 1 mg PO BID [facility] Last Admin: 10/15/23 08:50 Dose: 1 mg Trazodone HCl (Trazodone Hcl 50 Mg Tablet) 50 mg PO BEDTIME MRX1 PRN PRN Reason: Insomnia Last Admin: 10/14/23 20:29 Dose: 50 mg Allergies Allergies Allergy/AdvReac Type Severity Reaction Status Date / Time metoprolol AdvReac Diarrhea Verified 10/07/23 23:43 Assessment & Plan Assessment & Plan (1) Major depressive disorder, recurrent episode, severe, with psychosis: Status: Acute Code(s): F33.3 - Major depressive disorder, recurrent, severe with psychotic symptoms Plan 22 yo female with history of depression and anxiety admitted to due to rapid decompensation in context of recent covid infection. She is internally preoccupied and disorganized as well as almost mute with very few verbal utterances- whispering and mumbling. Unable to sign CV today; did take medication today; will see if she clears up cognitively through the weekend and can sign CV but if unable may have to file. Plan CV 5 min checks collect collateral including if HCP 10/11/continue tx plan 10/12: Continue current management and treatment plan. 10/13: continue current management and treatment plan. 10/14 risperidone changed to liquid 10/15 continue tx plan; labs reordered, d/c antibiotic, encourage meals and fluids Patient educated on: diagnosis, medication risk/benefits and therapeutic strategies Informed Consent: further education needed Reason for continued inpatient stay Substantial Risk for: harm to self, inability to function and rapid decompensation Time Spent With Patient Time: Total time managing care of this patient today ____ minutes.
[2023-10-15] MEDS: hydrOXYzine HCL 25 MG TABLET PO (11:50)
[2023-10-15] MEDS: OLANZapine ODT 10 MG TAB.RAPDIS TRANSLINGU (11:50)
[2023-10-15 17:15] VITALS: BP 118/71; PULSE 120; RESP 16; TEMP 36.6; O2SAT 99
[2023-10-15] MEDS: Famotidine 20 MG TABLET PO (19:55)
[2023-10-16] MEDS: Omeprazole 20 MG CAPSULE.DR PO (05:35)
[2023-10-16 08:02] VITALS: BP 165/77; PULSE 125; RESP 18; TEMP 36.3; O2SAT 100
[2023-10-16] MEDS: clonazePAM 0.5 MG TABLET PO (08:23)
[2023-10-16] MEDS: risperiDONE Oral Sol 1 MG/ML SOLUTION PO (08:23)
[2023-10-16 09:01] LABS: MANUAL DIFF FLAG NO
[2023-10-16 09:05] LABS: Basophils Percent Auto 0.7 % (0-2); Eosinophils Absolute Auto 0.1 X10*3/uL (0.0-0.4); Hematocrit 37.8 % (37.0-47.0); Hemoglobin 12.2 g/dl (12.0-16.0); Imm Gran Abs Auto 0.01 X10*3/uL (0.00-0.03); Imm Gran Pct Auto 0.2 % (0.0-0.4); Lymphocytes Absolute Auto 1.6 X10*3/uL (1.2-4.9); Lymphocytes Percent Auto 29.8 % (20-40); Mean Corpuscular HGB Conc 32.3 g/dl (31.0-35.0); Mean Corpuscular Volume 80.6 fL (80.0-98.0); Mean Platelet Volume 11.2 fL (9.4-12.3); Monocytes Absolute Auto 0.5 X10*3/uL (0.1-1.2); Monocytes Percent Auto 9.1 % (2-11); Neutrophils Absolute Auto 3.2 x10*3/uL (2.0-8.3); Neutrophils Percent Auto 58.2 % (45-73); Platelet Count 365 X10*3/uL (160-400); Red Blood Count 4.69 X10*6/uL (4.20-5.50); Red Cell Distribution Width 15.4 % (11.0-16.0); White Blood Count 5.5 X10*3/uL (4.8-10.8)
--- NOTE | 2023-10-16 09:17 | HO.PSYCHPN ---
Subjective Subjective Date of Service: 10/16/23 Reason For Visit: Depresssion Interim History: Met with patient; discussed with team; reviewed chart Patient's mom currently present during interview. Patient gave clear verbal permission for publicity writer to discuss case with her mother, both while patient was present and after patient left the room. Pt talking with peers, staff freely; when mom came patient became selectively mute, mumbling, started spitting into a basin. Regarding mood patient said she is not good. When asked what she would like help with changing, she said to stop telling lies, but could not elaborate Patient made some references that her family's trying to kill her or that her mom is trying to kill her; when publicity writer asked her why she said because of the food, she was not supposed to eat it however she did... Patient could not clarify further. Patient was drinking water, saying she was thirsty. Patient said she wanted to go home; said she was taking the medications as told, but accepted she would have to remain on the unit longer; patient decided to leave the room but not before she said that she thinks her mom is trying to get her killed. Patient's mother, Latisha, says that prior to getting COVID September 28, patient was her regular self, without any history of psychotic or manic symptoms. Starting with COVID patient started to decompensate; about 5 days prior to the admission, patient was up all night, not sleeping at all, pacing the house and going into very is rooms in a disorganized manner; she was talking excessively and started complaining of auditory hallucinations (it was only once she got to the unit that she is expressed paranoid delusions). Mom says this is the 1st time patient has had any such manic episode. Mother says she herself has bipolar disorder, has been previously hospitalized and is stable on Depakote and Abilify. No other family history known Other history: -Patient has had an IEP since she was in grade school, often in a therapeutic class environment; 1 on 1 help with all school work; mother says some developmental delay. -She does not think her daughter would be capable of obtaining or keeping a job. -Patient has had 1 friend from school throughout the past years, though the friendship recently ended; she has a lot of online friends. Patient also currently has a boyfriend that she met online but who visits. -Patient has history of intermittent refusal to drink fluids and maybe once every 6 months would end up coming to the hospital ED for dehydration. This was more common when she was in grade school and has only been a few times in the past year Mental Status Exam Mental Status Exam Narrative: Pt is alert and oriented; behavior is moderately disorganized, guarded, intermittently selectively mute; patient is not in distress; dressed in hospital attire, disheveled; mood is described as not good and affect congruent, downcast; eye contact avoidant; Speech is soft, mumbled, slowed; no psychomotor agitation/retardation present; thought process disorganized; can be goal directed; Thought content is on paranoid ideations; denies any SI/HI. Internally preoccupied, AH Patients insight and judgment impaired Diagnostics Vital Signs (24Hr): Vital Signs - 24 hr 10/15/23 17:15 10/16/23 08:02 Temperature 97.8 F 97.4 F Pulse Rate 120 H 125 H Respiratory Rate 16 18 Blood Pressure 118/71 165/77 H Pulse Oximetry 99 100 Oxygen Delivery Method Room Air Room Air BMI result Body Mass Index 21.6 Labs 10/16/23 08:46 10/16/23 08:46 Labs: Laboratory Results - last 48 hr 10/14/23 10/16/23 20:41 08:46 WBC 5.5 RBC 4.69 Hgb 12.2 Hct 37.8 MCV 80.6 MCH 26.0 L MCHC 32.3 RDW 15.4 Plt Count 365 D MPV 11.2 Immature Gran % (Auto) 0.2 Neut % (Auto) 58.2 Lymph % (Auto) 29.8 [place] % (Auto) 9.1 Eos % (Auto) 2.0 Baso % (Auto) 0.7 Lymph # (Auto) 1.6 [place] # (Auto) 0.5 Eos # (Auto) 0.1 Baso # (Auto) 0.0 Abs Immat Gran (auto) 0.01 Absolute Neuts (auto) 3.2 Absolute Nucleated RBC 0.000 Nucleated RBC % (auto) 0.0 Influenza Type A (PCR) NEGATIVE Influenza Type B (PCR) NEGATIVE RSV RNA Qual (PCR) NEGATIVE SARS-CoV-2 RNA (RT-PCR) NEGATIVE Imaging Radiology Impressions: ITS Impressions Head CT 10/08/23 21:15 IMPRESSION: Unremarkable CT scan of the head. No evidence of acute territorial infarct or hemorrhage. Medications Medications Current Medications Acetaminophen (Acetaminophen 325 Mg Tablet) 650 mg PO Q6H PRN PRN Reason: Headache/Pain Mild Scale (1-3) Last Admin: 10/13/23 09:37 Dose: 650 mg Al Hydroxide/Mg Hydroxide (Magnesium Hydrox/Alum Hydrox 30 Ml Oral.Susp) 30 ml PO Q6H PRN PRN Reason: Heartburn/Nausea Last Admin: 10/13/23 16:17 Dose: 30 ml Clonazepam (Clonazepam 0.5 Mg Tablet) 0.5 mg PO BID [facility] Last Admin: 10/16/23 08:23 Dose: 0.5 mg Famotidine (Famotidine 20 Mg Tablet) 20 mg PO BEDTIME [facility] Last Admin: 10/15/23 19:55 Dose: 20 mg Hydroxyzine HCl (Hydroxyzine Hcl 25 Mg Tablet) 25 mg PO Q6H PRN PRN Reason: Anxiety Last Admin: 10/15/23 11:50 Dose: 25 mg Lorazepam (Lorazepam 0.5 Mg Tablet) 0.5 mg PO DAILY PRN PRN Reason: panic attack Last Admin: 10/12/23 12:25 Dose: 0.5 mg Magnesium Hydroxide (Milk Of Magnesia 30 Ml Oral.Susp) 30 ml PO DAILY PRN PRN Reason: Constipation Olanzapine (Olanzapine Odt 10 Mg Tab.Rapdis) 10 mg TRANSLINGU BID PRN PRN Reason: Hallucinations Last Admin: 10/15/23 11:50 Dose: 10 mg Omeprazole (Omeprazole 20 Mg Capsule.Dr) 20 mg PO DAILY@0630 [facility] Last Admin: 10/16/23 05:35 Dose: 20 mg Risperidone (Risperidone Oral Indy 1 Mg/Ml Solution) 1 mg PO BID [facility] Last Admin: 10/16/23 08:23 Dose: 1 mg Trazodone HCl (Trazodone Hcl 50 Mg Tablet) 50 mg PO BEDTIME MRX1 PRN PRN Reason: Insomnia Last Admin: 10/14/23 20:29 Dose: 50 mg Allergies Allergies Allergy/AdvReac Type Severity Reaction Status Date / Time metoprolol AdvReac Diarrhea Verified 10/07/23 23:43 Assessment & Plan Assessment & Plan (1) Major depressive disorder, recurrent episode, severe, with psychosis: Status: Acute Code(s): F33.3 - Major depressive disorder, recurrent, severe with psychotic symptoms Plan 22 yo female with history of depression and anxiety admitted to [facility] due to rapid decompensation in context of recent covid infection. She is internally preoccupied and disorganized as well as almost mute with very few verbal utterances- whispering and mumbling. Unable to sign CV today; did take medication today; will see if she clears up cognitively through the weekend and can sign CV but if unable may have to file. Hospital course: 10/11/continue tx plan 10/12: Continue current management and treatment plan. 10/13: continue current management and treatment plan. 10/14 risperidone changed to liquid 10/15 continue tx plan; labs reordered, d/c antibiotic, encourage meals and fluids 10/16 Patient's mom currently present during interview. Patient gave clear verbal permission for publicity writer to discuss case with her mother, both while patient was present and after patient left the room. -reviewed labs which are unremarkable -Prior to mom coming, Pt talking with peers, staff more freely though still often mumbling; when mom came patient became selectively mute, mumbling, started spitting into a basin. -Regarding mood patient said she is not good. When asked what she would like help with changing, she said to stop telling lies, but could not elaborate -Patient made some references that her family's trying to kill her or that her mom is trying to kill her; when publicity writer asked her why she said because of the food, she was not supposed to eat it however she did... Patient could not clarify further. Patient was drinking water, saying she was thirsty. -Patient said she wanted to go home; said she was taking the medications as told, but accepted she would have to remain on the unit longer; patient decided to leave the room but not before she said that she thinks her mom is trying to get her killed. Recent history: Patient's mother, Latisha, says that prior to getting COVID September 28, patient was her regular self, without any history of psychotic or manic symptoms. Starting with COVID patient started to decompensate; about 5 days prior to the admission, patient was up all night, not sleeping at all, pacing the house and going into very is rooms in a disorganized manner; she was talking excessively and started complaining of auditory hallucinations (it was only once she got to the unit that she is expressed paranoid delusions). Mom says this is the 1st time patient has had any such manic episode. Mother says she herself has bipolar disorder, has been previously hospitalized and is stable on Depakote and Abilify. No other family history known Other history: -Patient has had an IEP since she was in grade school, often in a therapeutic class environment; 1 on 1 help with all school work; mother says some developmental delay. -She does not think her daughter would be capable of obtaining or keeping a job. -Patient has had 1 friend from school throughout the past years, though the friendship recently ended; she has a lot of online friends. Patient also currently has a boyfriend that she met online but who visits. -Patient has history of intermittent refusal to drink fluids and maybe once every 6 months would end up coming to the hospital ED for dehydration. This was more common when she was in grade school and has only been a few times in the past year -med trials: Low-dose Zyprexa, Abilify; Vraylar, never ended up vortioxetine Impression: -history of developmental delay; however no history of psychosis or manic episodes/behaviors prior to getting COVID infection this September 28 -it is possible that patient had some amount of COVID triggered encephalitis, maybe further complicated by UTI on admission. However, given mom's history of bipolar disorder combined with patient's current presentation (and absence of RDS, metabolic derangement, cardiac events-the lactic acid was elevated), it seems likely that this is a 1st manic break for patient. -question whether or not to get MRI -at this time will treat for bipolar Plan: CV 5 min checks Changed to Risperdal liquid 2 mg q.h.s. (was getting 1 mg b.i.d.) Start Depakote ER 500 mg q.h.s.; seems like manic break Hold: controldesogestrel-ethinyl estradiol [Apri] 0.15-0.03 mg tablet Hold: Auvelity 45-105 mg tablet,IR,delayed rel,biphasic (dextromethorphan bupropion) Patient educated on: diagnosis and medication risk/benefits Informed Consent: understands, does not understand and further education needed Reason for continued inpatient stay Substantial Risk for: inability to function Time Spent With Patient Time: Total time managing care of this patient today ____ minutes.
[2023-10-16 09:19] LABS: Estimated Average Glucose 100 mg/dL; Hemoglobin A1c % 5.1 % (<6.0)
[2023-10-16 09:25] LABS: Alanine Aminotransferase 34 U/L (0-31); Alkaline Phosphatase 80 U/L (39-117); Anion Gap 12 (12-20); Aspartate Amino Transferase 31 U/L (5-31); Bilirubin Total 0.5 mg/dL (0.0-1.0); Blood Urea Nitrogen 4 mg/dL (9-16); Calcium 9.9 mg/dL (8.4-10.2); Carbon Dioxide 29 mmol/L (22-29); Chloride 103 mmol/L (96-108); Cholesterol 161 mg/dL (<200); Creatinine Clr Calc Pharmacy 150.5; Estimated Glomerular Filt Rate > 60; Glucose Random 100 mg/dL (60-115); HDL Cholesterol 67 mg/dL (>40); LDL Cholesterol Calculated 80 mg/dL (<100); Magnesium 2.1 mg/dL (1.6-2.6); Potassium 3.9 mmol/L (3.3-5.1); Sodium 140 mmol/L (135-145); Total Protein 7.2 g/dL (6.5-8.0); Triglycerides 71 mg/dL (<150)
[2023-10-16 09:40] LABS: TSH reflex Free T4 0.76 uIU/mL (0.32-4.0)
[2023-10-16 15:02] LABS: Vitamin B12 318 pg/mL (200-900)
[2023-10-16] MEDS: LORazepam 0.5 MG TABLET PO (17:17)
[2023-10-16 18:00] VITALS: BP 150/76; PULSE 122; RESP 18; TEMP 36.6; O2SAT 97
[2023-10-16] MEDS: Famotidine 20 MG TABLET PO (20:52)
[2023-10-16] MEDS: clonazePAM 0.5 MG TABLET 0.25 MG PO (20:52)
[2023-10-16] MEDS: risperiDONE Oral Sol 1 MG/ML SOLUTION 2 MG PO (20:52)
[2023-10-16] MEDS: Divalproex Sodium ER 500 MG TAB.ER.24H PO (20:53)
[2023-10-16] MEDS: traZODone HCL 50 MG TABLET PO (20:53)
[2023-10-17] MEDS: Omeprazole 20 MG CAPSULE.DR PO (06:15)
--- NOTE | 2023-10-17 08:41 | HO.PSYCHPN ---
Subjective Subjective Date of Service: 10/17/23 Reason For Visit: Depresssion Interim History: Met with patient; discussed with team no change in presentation and pt remains with disorganized speech and behavior; few words, seems somewhat confused. She says she's not good but does not elaborate; still believes others, her mother has plans to kill her because you know...things... but then slowly walks out of room Mental Status Exam Mental Status Exam Narrative: Pt is alert and oriented; behavior isdisorganized, guarded, with few words...maybe intermittently selectively mute; patient is not in distress; dressed in hospital attire, disheveled; mood is described as not good and affect congruent, downcast; eye contact avoidant; Speech is soft, mumbled, slowed; no psychomotor agitation/retardation present; thought process disorganized; can be goal directed; Thought content is on paranoid ideations; denies any SI/HI. Internally preoccupied, AH Patients insight and judgment impaired Diagnostics Vital Signs (24Hr): Vital Signs - 24 hr 10/16/23 18:00 Temperature 97.9 F Pulse Rate 122 H Respiratory Rate 18 Blood Pressure 150/76 H Pulse Oximetry 97 Oxygen Delivery Method Room Air BMI result Body Mass Index 21.6 Labs 10/16/23 08:46 10/16/23 08:46 Labs: Laboratory Results - last 48 hr 10/16/23 08:46 WBC 5.5 RBC 4.69 Hgb 12.2 Hct 37.8 MCV 80.6 MCH 26.0 L MCHC 32.3 RDW 15.4 Plt Count 365 D MPV 11.2 Immature Gran % (Auto) 0.2 Neut % (Auto) 58.2 Lymph % (Auto) 29.8 [place] % (Auto) 9.1 Eos % (Auto) 2.0 Baso % (Auto) 0.7 Lymph # (Auto) 1.6 [place] # (Auto) 0.5 Eos # (Auto) 0.1 Baso # (Auto) 0.0 Abs Immat Gran (auto) 0.01 Absolute Neuts (auto) 3.2 Absolute Nucleated RBC 0.000 Nucleated RBC % (auto) 0.0 Sodium 140 Potassium 3.9 Chloride 103 Carbon Dioxide 29 Anion Gap 12 BUN 4 L Creatinine 0.66 Estim Creat Clear Calc 150.5 Estimated GFR > 60 Random Glucose 100 Estimat Average Glucose 100 Hemoglobin A1c % 5.1 Calcium 9.9 D Magnesium 2.1 Total Bilirubin 0.5 AST 31 ALT 34 H Alkaline Phosphatase 80 Total Protein 7.2 Albumin 4.0 Triglycerides 71 Cholesterol 161 LDL Cholesterol, Calc 80 HDL Cholesterol 67 Vitamin B12 318 Folate 4.0 TSH 0.76 Imaging Radiology Impressions: ITS Impressions Head CT 10/08/23 21:15 IMPRESSION: Unremarkable CT scan of the head. No evidence of acute territorial infarct or hemorrhage. Medications Medications Current Medications Acetaminophen (Acetaminophen 325 Mg Tablet) 650 mg PO Q6H PRN PRN Reason: Headache/Pain Mild Scale (1-3) Last Admin: 10/13/23 09:37 Dose: 650 mg Al Hydroxide/Mg Hydroxide (Magnesium Hydrox/Alum Hydrox 30 Ml Oral.Susp) 30 ml PO Q6H PRN PRN Reason: Heartburn/Nausea Last Admin: 10/13/23 16:17 Dose: 30 ml Clonazepam (Clonazepam 0.5 Mg Tablet) 0.25 mg PO BID [facility] Last Admin: 10/16/23 20:52 Dose: 0.25 mg Divalproex Sodium (Divalproex Sodium Er 500 Mg Tab.Er.24h) 500 mg PO BEDTIME [facility] Last Admin: 10/16/23 20:53 Dose: 500 mg Famotidine (Famotidine 20 Mg Tablet) 20 mg PO BEDTIME [facility] Last Admin: 10/16/23 20:52 Dose: 20 mg Hydroxyzine HCl (Hydroxyzine Hcl 25 Mg Tablet) 25 mg PO Q6H PRN PRN Reason: Anxiety Last Admin: 10/15/23 11:50 Dose: 25 mg Lorazepam (Lorazepam 0.5 Mg Tablet) 0.5 mg PO DAILY PRN PRN Reason: panic attack Last Admin: 10/16/23 17:17 Dose: 0.5 mg Magnesium Hydroxide (Milk Of Magnesia 30 Ml Oral.Susp) 30 ml PO DAILY PRN PRN Reason: Constipation Olanzapine (Olanzapine Odt 10 Mg Tab.Rapdis) 10 mg TRANSLINGU BID PRN PRN Reason: Hallucinations Last Admin: 10/15/23 11:50 Dose: 10 mg Omeprazole (Omeprazole 20 Mg Capsule.Dr) 20 mg PO DAILY@0630 [facility] Last Admin: 10/17/23 06:15 Dose: 20 mg Risperidone (Risperidone Oral Indy 1 Mg/Ml Solution) 2 mg PO BEDTIME [facility] Last Admin: 10/16/23 20:52 Dose: 2 mg Trazodone HCl (Trazodone Hcl 50 Mg Tablet) 50 mg PO BEDTIME MRX1 PRN PRN Reason: Insomnia Last Admin: 10/16/23 20:53 Dose: 50 mg Allergies Allergies Allergy/AdvReac Type Severity Reaction Status Date / Time metoprolol AdvReac Diarrhea Verified 10/07/23 23:43 Assessment & Plan Assessment & Plan (1) Psychosis: Status: Acute Code(s): F29 - Unspecified psychosis not due to a substance or known physiological condition (2) Delirium: Status: Suspected Code(s): R41.0 - Disorientation, unspecified Assessment and Plan: Possible/remains a r/o (3) Intellectual disability: Status: Acute Code(s): F79 - Unspecified intellectual disabilities (4) Major depressive disorder, recurrent episode, severe, with psychosis: Status: Acute Code(s): F33.3 - Major depressive disorder, recurrent, severe with psychotic symptoms (5) Left ovarian cyst: Status: Acute Code(s): N83.202 - Unspecified ovarian cyst, left side (6) UTI (urinary tract infection): Status: Acute Code(s): N39.0 - Urinary tract infection, site not specified Plan 22 yo female with history of depression and anxiety admitted to [facility] due to rapid decompensation in context of recent covid infection. She is internally preoccupied and disorganized as well as almost mute with very few verbal utterances- whispering and mumbling. Unable to sign CV today; did take medication today; will see if she clears up cognitively through the weekend and can sign CV but if unable may have to file. Hospital course: 10/11/continue tx plan 10/12: Continue current management and treatment plan. 10/13: continue current management and treatment plan. 10/14 risperidone changed to liquid 10/15 continue tx plan; labs reordered, d/c antibiotic, encourage meals and fluids 10/16 Patient's mom currently present during interview. Patient gave clear verbal permission for senior medical writer to discuss case with her mother, both while patient was present and after patient left the room. -reviewed labs which are unremarkable -Prior to mom coming, Pt talking with peers, staff more freely though still often mumbling; when mom came patient became selectively mute, mumbling, started spitting into a basin. -Regarding mood patient said she is not good. When asked what she would like help with changing, she said to stop telling lies, but could not elaborate -Patient made some references that her family's trying to kill her or that her mom is trying to kill her; when senior medical writer asked her why she said because of the food, she was not supposed to eat it however she did... Patient could not clarify further. Patient was drinking water, saying she was thirsty. -Patient said she wanted to go home; said she was taking the medications as told, but accepted she would have to remain on the unit longer; patient decided to leave the room but not before she said that she thinks her mom is trying to get her killed. remains disorganized in speech and behavior with paranoid thinking; slept through the night; no manic symptoms -ordered Neuro consult to help r/o encephalitis Recent history: Patient's mother, Latisha, says that prior to getting COVID September 28, patient was her regular self, without any history of psychotic or manic symptoms. Starting with COVID patient started to decompensate; about 5 days prior to the admission, patient was up all night, not sleeping at all, pacing the house and going into very is rooms in a disorganized manner; she was talking excessively and started complaining of auditory hallucinations (it was only once she got to the unit that she is expressed paranoid delusions). Mom says this is the 1st time patient has had any such manic episode. Mother says she herself has bipolar disorder, has been previously hospitalized and is stable on Depakote and Abilify. No other family history known Other history: -Patient has had an IEP since she was in grade school, often in a therapeutic class environment; 1 on 1 help with all school work; mother says some developmental delay. -She does not think her daughter would be capable of obtaining or keeping a job. -Patient has had 1 friend from school throughout the past years, though the friendship recently ended; she has a lot of online friends. Patient also currently has a boyfriend that she met online but who visits. -Patient has history of intermittent refusal to drink fluids and maybe once every 6 months would end up coming to the hospital ED for dehydration. This was more common when she was in grade school and has only been a few times in the past year -med trials: Low-dose Zyprexa, Abilify; Vraylar, never ended up vortioxetine Impression: -history of developmental delay; however no history of psychosis or manic episodes/behaviors prior to getting COVID infection this September 28 -it is possible that patient had some amount of COVID triggered encephalitis, maybe further complicated by UTI on admission. However, given mom's history of bipolar disorder combined with patient's current presentation (and absence of RDS, metabolic derangement, cardiac events-the lactic acid was elevated), it seems likely that this is a 1st manic break for patient. -question whether or not to get MRI -at this time will treat for bipolar Plan: CV 5 min checks Changed to Risperdal liquid 2 mg q.h.s. (was getting 1 mg b.i.d.) Start Depakote ER 500 mg q.h.s.; seems like manic break Hold: controldesogestrel-ethinyl estradiol [Apri] 0.15-0.03 mg tablet Hold: Auvelity 45-105 mg tablet,IR,delayed rel,biphasic (dextromethorphan bupropion) Patient educated on: diagnosis and medication risk/benefits Informed Consent: does not understand Reason for continued inpatient stay Substantial Risk for: inability to function Time Spent With Patient Time: Total time managing care of this patient today ____ minutes.
[2023-10-17] MEDS: clonazePAM 0.5 MG TABLET 0.25 MG PO ×2 (09:03→20:27)
[2023-10-17 09:18] VITALS: BP 117/59; PULSE 104; RESP 16; TEMP 35.9; O2SAT 100
[2023-10-17 10:59] VITALS: BMI 20.7
[2023-10-17 17:59] LABS: Lyme Abs Screen <0.90 index
[2023-10-17 18:00] VITALS: BP 135/90; PULSE 107; RESP 20; TEMP 36.4; O2SAT 100
[2023-10-17] MEDS: traZODone HCL 50 MG TABLET PO (20:26)
[2023-10-17] MEDS: Famotidine 20 MG TABLET PO (20:26)
[2023-10-17] MEDS: Divalproex Sodium ER 500 MG TAB.ER.24H PO (20:26)
[2023-10-17] MEDS: risperiDONE Oral Sol 1 MG/ML SOLUTION 2 MG PO (20:27)
--- NOTE | 2023-10-18 | ECG_ITS ---
Test Reason : high blood pressure Blood Pressure : / mmHG Vent. Rate : 098 BPM Atrial Rate : 098 BPM P-R Int : 152 ms QRS Dur : 082 ms QT Int : 340 ms P-R-T Axes : 040 063 -01 degrees QTc Int : 434 ms Normal sinus rhythm Possible Left atrial enlargement Borderline ECG When compared with ECG of 02-OCT-2023 14:24, T wave inversion less evident in Anterolateral leads Referred By: Hossein Smith Electronically Signed By:LEN EDWARDS
[2023-10-18] MEDS: Omeprazole 20 MG CAPSULE.DR PO (06:06)
[2023-10-18 07:45] VITALS: BP 121/58; PULSE 93; RESP 18; TEMP 36.9; O2SAT 98
--- NOTE | 2023-10-18 08:44 | P.PNPSI_ITS ---
Subjective Subjective Date of Service: 10/18/23 Reason For Visit: Depresssion Interim History: met with patient; discussed with team; discussed with neuro same presentation; guarded, disorganized; very difficult with which to enage discussed case with neuro Mental Status Exam Mental Status Exam Narrative: Pt is alert and oriented; behavior isdisorganized, guarded, with few words...maybe intermittently selectively mute; patient is not in distress; dressed in hospital attire, disheveled; mood is described as not good and affect congruent, downcast; eye contact avoidant; Speech is soft, mumbled, slowed; no psychomotor agitation/retardation present; thought process disorganized; can be goal directed; Thought content is on paranoid ideations; denies any SI/HI. Internally preoccupied, AH Patients insight and judgment impaired Diagnostics Vital Signs (24Hr): Vital Signs - 24 hr 10/17/23 09:18 10/17/23 18:00 10/18/23 07:45 Temperature 96.6 F L 97.5 F 98.4 F Pulse Rate 104 H 107 H 93 Respiratory Rate 16 20 18 Blood Pressure 117/59 L 135/90 H 121/58 L Pulse Oximetry 100 100 98 Oxygen Delivery Method Room Air Room Air Room Air BMI result Body Mass Index 20.7 Labs 10/16/23 08:46 10/16/23 08:46 Labs: Laboratory Results - last 48 hr 10/16/23 08:46 WBC 5.5 RBC 4.69 Hgb 12.2 Hct 37.8 MCV 80.6 MCH 26.0 L MCHC 32.3 RDW 15.4 Plt Count 365 D MPV 11.2 Immature Gran % (Auto) 0.2 Neut % (Auto) 58.2 Lymph % (Auto) 29.8 [place] % (Auto) 9.1 Eos % (Auto) 2.0 Baso % (Auto) 0.7 Lymph # (Auto) 1.6 [place] # (Auto) 0.5 Eos # (Auto) 0.1 Baso # (Auto) 0.0 Abs Immat Gran (auto) 0.01 Absolute Neuts (auto) 3.2 Absolute Nucleated RBC 0.000 Nucleated RBC % (auto) 0.0 Sodium 140 Potassium 3.9 Chloride 103 Carbon Dioxide 29 Anion Gap 12 BUN 4 L Creatinine 0.66 Estim Creat Clear Calc 150.5 Estimated GFR > 60 Random Glucose 100 Estimat Average Glucose 100 Hemoglobin A1c % 5.1 Calcium 9.9 D Magnesium 2.1 Total Bilirubin 0.5 AST 31 ALT 34 H Alkaline Phosphatase 80 Total Protein 7.2 Albumin 4.0 Triglycerides 71 Cholesterol 161 LDL Cholesterol, Calc 80 HDL Cholesterol 67 Vitamin B12 318 Folate 4.0 TSH 0.76 Lyme Screen IgG & IgM <0.90 Imaging Radiology Impressions: ITS Impressions Head CT 10/08/23 21:15 IMPRESSION: Unremarkable CT scan of the head. No evidence of acute territorial infarct or hemorrhage. Medications Medications Current Medications Acetaminophen (Acetaminophen 325 Mg Tablet) 650 mg PO Q6H PRN PRN Reason: Headache/Pain Mild Scale (1-3) Last Admin: 10/13/23 09:37 Dose: 650 mg Al Hydroxide/Mg Hydroxide (Magnesium Hydrox/Alum Hydrox 30 Ml Oral.Susp) 30 ml PO Q6H PRN PRN Reason: Heartburn/Nausea Last Admin: 10/13/23 16:17 Dose: 30 ml Clonazepam (Clonazepam 0.5 Mg Tablet) 0.25 mg PO BID COUNT INCLUDES THE [facility] Last Admin: 10/18/23 08:28 Dose: Not Given Divalproex Sodium (Divalproex Sodium Er 500 Mg Tab.Er.24h) 500 mg PO BEDTIME COUNT INCLUDES THE [facility] Last Admin: 10/17/23 20:26 Dose: 500 mg Famotidine (Famotidine 20 Mg Tablet) 20 mg PO BEDTIME COUNT INCLUDES THE [facility] Last Admin: 10/17/23 20:26 Dose: 20 mg Hydroxyzine HCl (Hydroxyzine Hcl 25 Mg Tablet) 25 mg PO Q6H PRN PRN Reason: Anxiety Last Admin: 10/15/23 11:50 Dose: 25 mg Lorazepam (Lorazepam 0.5 Mg Tablet) 0.5 mg PO DAILY PRN PRN Reason: panic attack Last Admin: 10/16/23 17:17 Dose: 0.5 mg Magnesium Hydroxide (Milk Of Magnesia 30 Ml Oral.Susp) 30 ml PO DAILY PRN PRN Reason: Constipation Olanzapine (Olanzapine Odt 10 Mg Tab.Rapdis) 10 mg TRANSLINGU BID PRN PRN Reason: Hallucinations Last Admin: 10/15/23 11:50 Dose: 10 mg Omeprazole (Omeprazole 20 Mg Capsule.Dr) 20 mg PO DAILY@0630 COUNT INCLUDES THE [facility] Last Admin: 10/18/23 06:06 Dose: 20 mg Risperidone (Risperidone Oral Indy 1 Mg/Ml Solution) 2 mg PO BEDTIME KRISTI Last Admin: 10/17/23 20:27 Dose: 2 mg Trazodone HCl (Trazodone Hcl 50 Mg Tablet) 50 mg PO BEDTIME MRX1 PRN PRN Reason: Insomnia Last Admin: 10/17/23 20:26 Dose: 50 mg Allergies Allergies Allergy/AdvReac Type Severity Reaction Status Date / Time metoprolol AdvReac Diarrhea Verified 10/07/23 23:43 Assessment & Plan Assessment & Plan (1) Psychosis: Status: Acute Code(s): F29 - Unspecified psychosis not due to a substance or known physiological condition (2) Delirium: Status: Suspected Code(s): R41.0 - Disorientation, unspecified (3) Intellectual disability: Status: Acute Code(s): F79 - Unspecified intellectual disabilities (4) Left ovarian cyst: Status: Acute Code(s): N83.202 - Unspecified ovarian cyst, left side (5) Major depressive disorder, recurrent episode, severe, with psychosis: Status: Acute Code(s): F33.3 - Major depressive disorder, recurrent, severe with psychotic symptoms (6) UTI (urinary tract infection): Status: Acute Code(s): N39.0 - Urinary tract infection, site not specified Plan 22 yo female with history of depression and anxiety admitted to [facility] due to rapid decompensation in context of recent covid infection. She is internally preoccupied and disorganized as well as almost mute with very few verbal utterances- whispering and mumbling. Unable to sign CV today; did take medication today; will see if she clears up cognitively through the weekend and can sign CV but if unable may have to file. Hospital course: 10/11/continue tx plan 10/12: Continue current management and treatment plan. 10/13: continue current management and treatment plan. 10/14 risperidone changed to liquid 10/15 continue tx plan; labs reordered, d/c antibiotic, encourage meals and fluids 10/16 Patient's mom currently present during interview. Patient gave clear verbal permission for ad copy writer to discuss case with her mother, both while patient was present and after patient left the room. -reviewed labs which are unremarkable -Prior to mom coming, Pt talking with peers, staff more freely though still often mumbling; when mom came patient became selectively mute, mumbling, started spitting into a basin. -Regarding mood patient said she is not good. When asked what she would like help with changing, she said to stop telling lies, but could not elaborate -Patient made some references that her family's trying to kill her or that her mom is trying to kill her; when ad copy writer asked her why she said because of the food, she was not supposed to eat it however she did... Patient could not clarify further. Patient was drinking water, saying she was thirsty. -Patient said she wanted to go home; said she was taking the medications as told, but accepted she would have to remain on the unit longer; patient decided to leave the room but not before she said that she thinks her mom is trying to get her killed. remains disorganized in speech and behavior with paranoid thinking; slept through the night; no manic symptoms -ordered Neuro consult to help r/o encephalitis 10/17 remains disorganized in speech and behavior, paranoid, guarded -discussed with Dr. Cornell who reports unlikely encephalitis (or due to Covid) and that given time elapsed since contracted Covid (sep 28), testing won't help much; recs doing pelvic ultrasound for teratoma (again unlikely) and getting EEG to see if any slowing; however, if anti-psychotics/mood stabilizers clear up symptoms, this would strongly point at an organic psychotic/manic origin. -per chart, pt does have hx of ovarian cyst Will continue w/ medication treatment; if does not clear up can begin to consider LP, MRI, anti-NDMA antibodies will get pelvic US and EEG (since non-invasive) Impression: dx: -psychosis/joana -r/o delirum -intellectual disability -hx ovarian cyst Hx: -history of developmental delay; however no history of psychosis or manic episodes/behaviors prior to getting COVID infection this September 28 -it is possible that patient had some amount of COVID triggered encephalitis, maybe further complicated by UTI on admission. However, given mom's history of bipolar disorder combined with patient's current presentation (and absence of RDS, metabolic derangement, cardiac events-the lactic acid was elevated), it seems likely that this is a 1st manic break for patient. -at this time will treat for bipolar/psychosis Plan: CV 5 min checks INcrease to Risperdal liquid 2 mg BID. Depakote ER 500 mg q.h.s.; seems like manic break Hold: controldesogestrel-ethinyl estradiol [Apri] 0.15-0.03 mg tablet Hold: Auvelity 45-105 mg tablet,IR,delayed rel,biphasic (dextromethorphan bupropion) Recent history: Patient's mother, Latisha, says that prior to getting COVID September 28, patient was her regular self, without any history of psychotic or manic symptoms. Starting with COVID patient started to decompensate; about 5 days prior to the admission, patient was up all night, not sleeping at all, pacing the house and going into very is rooms in a disorganized manner; she was talking excessively and started complaining of auditory hallucinations (it was only once she got to the unit that she is expressed paranoid delusions). Mom says this is the 1st time patient has had any such manic episode. Mother says she herself has bipolar disorder, has been previously hospitalized and is stable on Depakote and Abilify. No other family history known Other history: -Patient has had an IEP since she was in grade school, often in a therapeutic class environment; 1 on 1 help with all school work; mother says some developmental delay. -She does not think her daughter would be capable of obtaining or keeping a job. -Patient has had 1 friend from school throughout the past years, though the friendship recently ended; she has a lot of online friends. Patient also currently has a boyfriend that she met online but who visits. -Patient has history of intermittent refusal to drink fluids and maybe once every 6 months would end up coming to the hospital ED for dehydration. This was more common when she was in grade school and has only been a few times in the past year -med trials: Low-dose Zyprexa, Abilify; Vraylar, never ended up vortioxetine Patient educated on: diagnosis and medication risk/benefits Informed Consent: does not understand Reason for continued inpatient stay Substantial Risk for: inability to function Time Spent With Patient Time: Total time managing care of this patient today ____ minutes.
--- NOTE | 2023-10-18 13:46 | PM.NEUROCN ---
History of Present Illness Data of Consult Service Date: 10/18/23 Primary Care Provider: Unknown Physician HPI Reason for consult: Psychosis, depression This is a 22 yr old woman admitted to with 2 weeks h/o withdrawal, disorientation, impaired insight, not eating and drinking, auditory hallucinations, paranoia and SI, disorganized, withdrawn, barely speaking, saying very few words and words are mumbled and almost inaudible; she shakes head yes or no at times. She endorses auditory hallucinations but does not described when asked; she endorses suicidal ideation with ideas of hurting herself and wanting to but does not describe plan or answer about intent. She is slow on her walking and responses and was walking the corridor. Responds appropriately to questions. Denies any hallucinations at this time. She says she lives with her mother and grandfather and no one likes her. She graduated from [employer] 2 yrs ago, did not go to college or work and spends her time on Playstation at home. No social interaction. Poor eye contact and a bit glassy eyed and bradylinetic an dbradyphrenic. Pt had recent covid infection 3-4 wks ago - tested positive without significant Sx. Pt has Hx of psych issues for several years and is in therapy and psychiatry at [facility] clinic Pt has been off all meds for 3 months due to all meds tried made her sick per mother's report. Was inpatient at [place] 2018. [facility] 2016. Ongoing outpatient at [facility] Review of Systems Review of Systems: unchanged per record GERD POTS per record Benign reactive Hypertension supraventricular Tachycardia -multiple workups including 3 day holter hx vit B deficincey hx vit D deficiency migraines hx ovarian cysts Yes all other systems are reviewed and are negative and Unobtainable due to mental status PMFSH Past Medical History Medical History Contraception management Vitamin D deficiency Vitamin B12 deficiency Uses control Hx of ovarian cyst Epigastric abdominal pain Orthostatic hypotension Supraventricular tachycardia by ECG Major depression in partial remission Left ovarian cyst Migraine Family History Family History Mother Bipolar disorder Mental health disorder Surgical History Surgical History H/O removal of cyst Social History Social History Household Members: Unknown / Unable to assess Household Members Other:: mother and MGF Housing: House Alcohol intake: never Patient Tobacco Use Status: Never used Tobacco Smoked in Last 30 Days: No e-Cigarette/Vaping Use: Never Used Use of substances other than those prescribed or required for medical reasons: Refusing to respond Currently Displaying Signs/Symptoms of Drug Intoxication Withdrawal: No Any prior treatment program specific to substance use: No Advance Directives: No Advance Directives Information Provided: Yes Do you have thoughts of harming others: None Do you have a plan to hurt others: No Plan Recently lost weight without trying: Unsure Nutrition Risks: No Nutritional Risk Patient : No : No Poor oral hygiene: No service: No Current occupational status: unemployed Sexual orientation: Unable to collect Cognitive needs: No Hearing needs: No Vision needs: No Meds Allergies Allergy/AdvReac Type Severity Reaction Status Date / Time metoprolol AdvReac Diarrhea Verified 10/07/23 23:43 Active Medications: Current Medications Acetaminophen (Acetaminophen 325 Mg Tablet) 650 mg PO Q6H PRN PRN Reason: Headache/Pain Mild Scale (1-3) Last Admin: 10/13/23 09:37 Dose: 650 mg Al Hydroxide/Mg Hydroxide (Magnesium Hydrox/Alum Hydrox 30 Ml Oral.Susp) 30 ml PO Q6H PRN PRN Reason: Heartburn/Nausea Last Admin: 10/13/23 16:17 Dose: 30 ml Clonazepam (Clonazepam 0.5 Mg Tablet) 0.25 mg PO BID PRN PRN Reason: anxiety Divalproex Sodium (Divalproex Sodium Er 500 Mg Tab.Er.24h) 500 mg PO BEDTIME KRISTI Last Admin: 10/17/23 20:26 Dose: 500 mg Famotidine (Famotidine 20 Mg Tablet) 20 mg PO BEDTIME KRISTI Last Admin: 10/17/23 20:26 Dose: 20 mg Hydroxyzine HCl (Hydroxyzine Hcl 25 Mg Tablet) 25 mg PO Q6H PRN PRN Reason: Anxiety Last Admin: 10/15/23 11:50 Dose: 25 mg Magnesium Hydroxide (Milk Of Magnesia 30 Ml Oral.Susp) 30 ml PO DAILY PRN PRN Reason: Constipation Olanzapine (Olanzapine Odt 10 Mg Tab.Rapdis) 10 mg TRANSLINGU BID PRN PRN Reason: Hallucinations Last Admin: 10/15/23 11:50 Dose: 10 mg Omeprazole (Omeprazole 20 Mg Capsule.) 20 mg PO DAILY@0630 KRISTI Last Admin: 10/18/23 06:06 Dose: 20 mg Risperidone (Risperidone Oral Indy 1 Mg/Ml Solution) 2 mg PO BEDTIME KRISTI Last Admin: 10/17/23 20:27 Dose: 2 mg Trazodone HCl (Trazodone Hcl 50 Mg Tablet) 50 mg PO BEDTIME MRX1 PRN PRN Reason: Insomnia Last Admin: 10/17/23 20:26 Dose: 50 mg Home Medications Medication Instructions Recorded Confirmed Last Taken Type famotidine 20 mg tablet 20 mg PO BEDTIME 10/08/23 10/08/23 Unknown History lorazepam 0.5 mg tablet 0.5 mg PO DAILY PRN panic attack 10/08/23 10/08/23 Unknown History lumateperone 21 mg capsule 21 mg PO DAILY 10/08/23 10/08/23 Unknown History (Caplyta) pantoprazole 20 mg tablet,delayed 20 mg PO DAILY 10/08/23 10/08/23 Unknown History release Physical Exam Vital Signs: Vital Signs: Last Vital Signs Temp 98.4 F 10/18/23 07:45 Pulse 93 10/18/23 07:45 Resp 18 10/18/23 07:45 BP 121/58 L 10/18/23 07:45 Pulse Ox 98 10/18/23 07:45 O2 Del Method Room Air 10/18/23 07:45 BMI result Body Mass Index 20.7 Neuro: Other: She walks independently in the hallways with a slow gait with generalized bradykinesia and bradyphrenia, slow in all of her responses, both physical and verbal, and cognitive and avoids eye contact. She's oriented to person,, place, month and year. She answers questions appropriately after it latent.. She told me her address, her high school and when she graduated and how she spends her time at home. Speech is fluent and clear although slow. Cranial nerves II through XII are normal. Muscle tone and strength are normal. Reflexes symmetrical. Plantar response are flexor. Neck is supple Results Labs 10/16/23 08:46 10/16/23 08:46 Microbiology Microbiology Results: Microbiology 10/08/23 Unknown Urine clean catch - Urine hinds top Urine Culture - Final Assessment and Plan (1) Major depressive disorder, recurrent episode, severe, with psychosis: Status: Acute I do not see any major signs to sufggest an encephalopathy. CT brain is normal. Labs unremarkable. Would recommend EEG and should r/o Anti-NMDA receptor encephalitis starting with pelvic ultrasound to r/o ovarian teratoma. If Sx continue , an LP can be considered next week and CSF checked for anti NMDAreceptor antibodies in addition to routine studies. No urgent need for it now. MRI brain with an dwithout yu if sx continue or worsen. Plan 22 yo female with history of depression and anxiety admitted to [facility] due to rapid decompensation in context of recent covid infection. She is internally preoccupied and disorganized as well as almost mute with very few verbal utterances- whispering and mumbling. Unable to sign CV today; did take medication today; will see if she clears up cognitively through the weekend and can sign CV but if unable may have to file. Hospital course: 10/11/continue tx plan 10/12: Continue current management and treatment plan. 10/13: continue current management and treatment plan. 10/14 risperidone changed to liquid 10/15 continue tx plan; labs reordered, d/c antibiotic, encourage meals and fluids 10/16 Patient's mom currently present during interview. Patient gave clear verbal permission for press writer to discuss case with her mother, both while patient was present and after patient left the room. -reviewed labs which are unremarkable -Prior to mom coming, Pt talking with peers, staff more freely though still often mumbling; when mom came patient became selectively mute, mumbling, started spitting into a basin. -Regarding mood patient said she is not good. When asked what she would like help with changing, she said to stop telling lies, but could not elaborate -Patient made some references that her family's trying to kill her or that her mom is trying to kill her; when press writer asked her why she said because of the food, she was not supposed to eat it however she did... Patient could not clarify further. Patient was drinking water, saying she was thirsty. -Patient said she wanted to go home; said she was taking the medications as told, but accepted she would have to remain on the unit longer; patient decided to leave the room but not before she said that she thinks her mom is trying to get her killed. Recent history: Patient's mother, Latisha, says that prior to getting COVID September 28, patient was her regular self, without any history of psychotic or manic symptoms. Starting with COVID patient started to decompensate; about 5 days prior to the admission, patient was up all night, not sleeping at all, pacing the house and going into very is rooms in a disorganized manner; she was talking excessively and started complaining of auditory hallucinations (it was only once she got to the unit that she is expressed paranoid delusions). Mom says this is the 1st time patient has had any such manic episode. Mother says she herself has bipolar disorder, has been previously hospitalized and is stable on Depakote and Abilify. No other family history known Other history: -Patient has had an IEP since she was in grade school, often in a therapeutic class environment; 1 on 1 help with all school work; mother says some developmental delay. -She does not think her daughter would be capable of obtaining or keeping a job. -Patient has had 1 friend from school throughout the past years, though the friendship recently ended; she has a lot of online friends. Patient also currently has a boyfriend that she met online but who visits. -Patient has history of intermittent refusal to drink fluids and maybe once every 6 months would end up coming to the hospital ED for dehydration. This was more common when she was in grade school and has only been a few times in the past year -med trials: Low-dose Zyprexa, Abilify; Vraylar, never ended up vortioxetine Impression: -history of developmental delay; however no history of psychosis or manic episodes/behaviors prior to getting COVID infection this September 28 -it is possible that patient had some amount of COVID triggered encephalitis, maybe further complicated by UTI on admission. However, given mom's history of bipolar disorder combined with patient's current presentation (and absence of RDS, metabolic derangement, cardiac events-the lactic acid was elevated), it seems likely that this is a 1st manic break for patient. -question whether or not to get MRI -at this time will treat for bipolar Plan: CV 5 min checks Changed to Risperdal liquid 2 mg q.h.s. (was getting 1 mg b.i.d.) Start Depakote ER 500 mg q.h.s.; seems like manic break Hold: controldesogestrel-ethinyl estradiol [Apri] 0.15-0.03 mg tablet Hold: Auvelity 45-105 mg tablet,IR,delayed rel,biphasic (dextromethorphan bupropion) Procedures Date of Service Date of Service: 10/18/23
[2023-10-18] MEDS: hydrOXYzine HCL 25 MG TABLET PO (15:46)
[2023-10-18] MEDS: clonazePAM 0.5 MG TABLET 0.25 MG PO (15:46)
[2023-10-18 15:50] VITALS: BP 140/103; PULSE 140; RESP 15; TEMP 36.6; O2SAT 98
[2023-10-18] MEDS: cloNIDine HCL 0.1 MG TABLET PO (16:00)
[2023-10-18 16:20] VITALS: BP 126/80; PULSE 119; O2SAT 100
--- NOTE | 2023-10-18 18:37 | PC.NURSE ---
Pt. VS were tachycardic and hypertensive and agitated. Atarax and Klonopin provided. Dr. Smith contacted via [facility]. Clonidine order provided and medication given. VS recheck showed a decrease in heart rate and BP. Provider contacted again with new VS. Provider gave no further orders at this time. Pt. resting comfortably in her room. Pt nodded yes when this nurse asked her if she was feeling better.
[2023-10-18] MEDS: Famotidine 20 MG TABLET PO (20:01)
[2023-10-18] MEDS: Divalproex Sodium ER 500 MG TAB.ER.24H PO (20:01)
[2023-10-18] MEDS: traZODone HCL 50 MG TABLET PO (20:01)
[2023-10-18] MEDS: risperiDONE Oral Sol 1 MG/ML SOLUTION 2 MG PO (20:01)
[2023-10-18 20:30] VITALS: BP 136/79; PULSE 110; RESP 18; TEMP 36.6; O2SAT 98
[2023-10-19] MEDS: Omeprazole 20 MG CAPSULE.DR PO (05:40)
[2023-10-19] MEDS: risperiDONE Oral Sol 1 MG/ML SOLUTION 2 MG PO ×2 (09:06→20:29)
--- NOTE | 2023-10-19 11:15 | HO.PSYCHPN ---
Subjective Subjective Date of Service: 10/19/23 Reason For Visit: Depresssion Interim History: 22 yo in kitchen with her mother, mother reports pt has DDS , also that mom has hx of bipolar 1- Pt recent muteness and disorganization - is new however- No boundaries touching other's food, going through roommates belongings- upsetting roommate moved to private room- due to behaviors Medication Compliance: Yes Side effects from medications: No Attending Groups: No Review of Systems having medical work up due to change mental status- as yet no findings Medical Review of Systems: unchanged Mental Status Exam Mental Status Exam Patient Appearance: Disheveled and Unkempt Patient Orientation: Person Level of Consciousness: Awake Patient Behavior: Passive, Restless, Wandering, Uncooperative, Impulsive and Poor Eye Contact Mood Description: Blunted and Apprehensive Affect Description: Apprehensive Patient Cognition Impaired: Yes Ability to Follow Directions: Poor Speech Pattern: Impoverished and Poor Articulation Thought Content: positive for Disorganized (most likely) Abnormal Motor Activity Signs and Symptoms: Restlessness Judgement: Poor Diagnostics Vital Signs (24Hr): Vital Signs - 24 hr 10/18/23 15:50 10/18/23 16:20 10/18/23 20:30 Temperature 97.9 F 97.9 F Pulse Rate 140 H 119 H 110 H Respiratory Rate 15 18 Blood Pressure 140/103 H 126/80 136/79 Pulse Oximetry 98 100 98 Oxygen Delivery Method Room Air Room Air Room Air BMI result Body Mass Index 20.7 Labs 10/16/23 08:46 10/16/23 08:46 Labs: Laboratory Results - last 48 hr 10/16/23 08:46 Lyme Screen IgG & IgM <0.90 Lyme Progressive Test TNP Imaging Radiology Impressions: ITS Impressions Head CT 10/08/23 21:15 IMPRESSION: Unremarkable CT scan of the head. No evidence of acute territorial infarct or hemorrhage. Pelvis Ultrasound 10/19/23 08:16 IMPRESSION: Very limited examination. Further evaluation with MRI of the pelvis as clinically warranted. There is a 4.3 cm simple appearing cyst in the left ovary that is almost certainly benign in a patient of this age and for which no imaging follow-up is recommended in an asymptomatic patient. If an acute ovarian pathology such as torsion is clinically suspected, further evaluation with MRI pelvis is recommended. Medications Medications Current Medications Acetaminophen (Acetaminophen 325 Mg Tablet) 650 mg PO Q6H PRN PRN Reason: Headache/Pain Mild Scale (1-3) Last Admin: 10/13/23 09:37 Dose: 650 mg Al Hydroxide/Mg Hydroxide (Magnesium Hydrox/Alum Hydrox 30 Ml Oral.Susp) 30 ml PO Q6H PRN PRN Reason: Heartburn/Nausea Last Admin: 10/13/23 16:17 Dose: 30 ml Clonazepam (Clonazepam 0.5 Mg Tablet) 0.25 mg PO BID PRN PRN Reason: anxiety Last Admin: 10/18/23 15:46 Dose: 0.25 mg Divalproex Sodium (Divalproex Sodium Er 500 Mg Tab.Er.24h) 500 mg PO BEDTIME [facility] Last Admin: 10/18/23 20:01 Dose: 500 mg Famotidine (Famotidine 20 Mg Tablet) 20 mg PO BEDTIME [facility] Last Admin: 10/18/23 20:01 Dose: 20 mg Hydroxyzine HCl (Hydroxyzine Hcl 25 Mg Tablet) 25 mg PO Q6H PRN PRN Reason: Anxiety Last Admin: 10/18/23 15:46 Dose: 25 mg Magnesium Hydroxide (Milk Of Magnesia 30 Ml Oral.Susp) 30 ml PO DAILY PRN PRN Reason: Constipation Olanzapine (Olanzapine Odt 10 Mg Tab.Rapdis) 10 mg TRANSLINGU BID PRN PRN Reason: Hallucinations Last Admin: 10/15/23 11:50 Dose: 10 mg Omeprazole (Omeprazole 20 Mg Capsule.Dr) 20 mg PO DAILY@0630 [facility] Last Admin: 10/19/23 05:40 Dose: 20 mg Risperidone (Risperidone Oral Indy 1 Mg/Ml Solution) 2 mg PO BID [facility] Last Admin: 10/19/23 09:06 Dose: 2 mg Trazodone HCl (Trazodone Hcl 50 Mg Tablet) 50 mg PO BEDTIME MRX1 PRN PRN Reason: Insomnia Last Admin: 10/18/23 20:01 Dose: 50 mg Allergies Allergies Allergy/AdvReac Type Severity Reaction Status Date / Time metoprolol AdvReac Diarrhea Verified 10/07/23 23:43 Assessment & Plan Assessment & Plan (1) Psychosis: Status: Acute Code(s): F29 - Unspecified psychosis not due to a substance or known physiological condition (2) Delirium: Status: Suspected Code(s): R41.0 - Disorientation, unspecified (3) Intellectual disability: Status: Acute Code(s): F79 - Unspecified intellectual disabilities (4) Left ovarian cyst: Status: Acute Code(s): N83.202 - Unspecified ovarian cyst, left side (5) Major depressive disorder, recurrent episode, severe, with psychosis: Status: Acute Code(s): F33.3 - Major depressive disorder, recurrent, severe with psychotic symptoms (6) UTI (urinary tract infection): Status: Acute Code(s): N39.0 - Urinary tract infection, site not specified Plan 22 yo female with history of depression and anxiety admitted to [facility] due to rapid decompensation in context of recent covid infection. She is internally preoccupied and disorganized as well as almost mute with very few verbal utterances- whispering and mumbling. Unable to sign CV today; did take medication today; will see if she clears up cognitively through the weekend and can sign CV but if unable may have to file. Hospital course: 10/11/continue tx plan 10/12: Continue current management and treatment plan. 10/13: continue current management and treatment plan. 10/14 risperidone changed to liquid 10/15 continue tx plan; labs reordered, d/c antibiotic, encourage meals and fluids 10/16 Patient's mom currently present during interview. Patient gave clear verbal permission for show card writer to discuss case with her mother, both while patient was present and after patient left the room. -reviewed labs which are unremarkable -Prior to mom coming, Pt talking with peers, staff more freely though still often mumbling; when mom came patient became selectively mute, mumbling, started spitting into a basin. -Regarding mood patient said she is not good. When asked what she would like help with changing, she said to stop telling lies, but could not elaborate -Patient made some references that her family's trying to kill her or that her mom is trying to kill her; when show card writer asked her why she said because of the food, she was not supposed to eat it however she did... Patient could not clarify further. Patient was drinking water, saying she was thirsty. -Patient said she wanted to go home; said she was taking the medications as told, but accepted she would have to remain on the unit longer; patient decided to leave the room but not before she said that she thinks her mom is trying to get her killed. 2/29 remains disorganized in speech and behavior with paranoid thinking; slept through the night; no manic symptoms -ordered Neuro consult to help r/o encephalitis 10/17 remains disorganized in speech and behavior, paranoid, guarded -discussed with Dr. Cornell who reports unlikely encephalitis (or due to Covid) and that given time elapsed since contracted Covid (sep 28), testing won't help much; recs doing pelvic ultrasound for teratoma (again unlikely) and getting EEG to see if any slowing; however, if anti-psychotics/mood stabilizers clear up symptoms, this would strongly point at an organic psychotic/manic origin. -per chart, pt does have hx of ovarian cyst Will continue w/ medication treatment; if does not clear up can begin to consider LP, MRI, anti-NDMA antibodies will get pelvic US and EEG (since non-invasive) Impression: dx: -psychosis/joana -r/o delirum -intellectual disability -hx ovarian cyst Hx: -history of developmental delay; however no history of psychosis or manic episodes/behaviors prior to getting COVID infection this September 28 -it is possible that patient had some amount of COVID triggered encephalitis, maybe further complicated by UTI on admission. However, given mom's history of bipolar disorder combined with patient's current presentation (and absence of RDS, metabolic derangement, cardiac events-the lactic acid was elevated), it seems likely that this is a 1st manic break for patient. -at this time will treat for bipolar/psychosis Plan: CV 5 min checks INcrease to Risperdal liquid 2 mg BID. Depakote ER 500 mg q.h.s.; seems like manic break Hold: controldesogestrel-ethinyl estradiol [Apri] 0.15-0.03 mg tablet Hold: Auvelity 45-105 mg tablet,IR,delayed rel,biphasic (dextromethorphan bupropion) Recent history: Patient's mother, Latisha, says that prior to getting COVID September 28, patient was her regular self, without any history of psychotic or manic symptoms. Starting with COVID patient started to decompensate; about 5 days prior to the admission, patient was up all night, not sleeping at all, pacing the house and going into very is rooms in a disorganized manner; she was talking excessively and started complaining of auditory hallucinations (it was only once she got to the unit that she is expressed paranoid delusions). Mom says this is the 1st time patient has had any such manic episode. Mother says she herself has bipolar disorder, has been previously hospitalized and is stable on Depakote and Abilify. No other family history known Other history: -Patient has had an IEP since she was in grade school, often in a therapeutic class environment; 1 on 1 help with all school work; mother says some developmental delay. -She does not think her daughter would be capable of obtaining or keeping a job. -Patient has had 1 friend from school throughout the past years, though the friendship recently ended; she has a lot of online friends. Patient also currently has a boyfriend that she met online but who visits. -Patient has history of intermittent refusal to drink fluids and maybe once every 6 months would end up coming to the hospital ED for dehydration. This was more common when she was in grade school and has only been a few times in the past year -med trials: Low-dose Zyprexa, Abilify; Beatrizaylar, never ended up vortioxetine 10/19/23 continue risperidone trial - no change as yet Guardian/Caregiver educated on: diagnosis and medication risk/benefits Informed Consent: further education needed Reason for continued inpatient stay Substantial Risk for: inability to function and rapid decompensation Time Spent With Patient Time: Total time managing care of this patient today ____ minutes.
[2023-10-19 17:15] VITALS: BP 128/84; PULSE 108; RESP 16; TEMP 36.6; O2SAT 99
[2023-10-19] MEDS: Divalproex Sodium ER 500 MG TAB.ER.24H PO (20:29)
[2023-10-19] MEDS: Famotidine 20 MG TABLET PO (20:29)
[2023-10-20] MEDS: Omeprazole 20 MG CAPSULE.DR PO (06:29)
[2023-10-20 07:35] VITALS: BP 130/79; PULSE 117; RESP 15; TEMP 36.7; O2SAT 99
[2023-10-20] MEDS: risperiDONE Oral Sol 1 MG/ML SOLUTION 2 MG PO ×2 (09:38→21:45)
--- NOTE | 2023-10-20 11:08 | P.PNPSI_ITS ---
Subjective Subjective Date of Service: 10/20/23 Reason For Visit: Depresssion Subjective Notes: Conditional Voluntary Healthcare Proxy: No Guardianship: No Medical Problems Affecting Mental Status: No (mostly ruled out) Interim History: 22 yo doing better- speaking and communicating today- fairly disorganized movement around unit - but more able to communicate her internal state- co anxiety - elevated bp and pulse- also co GERD- Medication Compliance: Yes Side effects from medications: No Attending Groups: No Review of Systems elevated pulse Medical Review of Systems: changed (GERd) Mental Status Exam Mental Status Exam Patient Appearance: Unkempt Patient Orientation: Person, Place, Time and Situation Level of Consciousness: Awake Patient Behavior: Cooperative and Poor Eye Contact Mood Description: Anxious Affect Description: Apprehensive Patient Cognition Impaired: Yes Ability to Follow Directions: Poor Speech Pattern: Mumbled Thought Content: positive for [facility] and positive for Poverty of Content Depressive Symptoms: Increased Anxiety, Muscle Tension and Difficulty Concentrating Abnormal Motor Activity Signs and Symptoms: Muscle Rigidity Judgement: Poor Diagnostics Vital Signs (24Hr): Vital Signs - 24 hr 10/19/23 17:15 Temperature 97.9 F Pulse Rate 108 H Respiratory Rate 16 Blood Pressure 128/84 Pulse Oximetry 99 Oxygen Delivery Method Room Air BMI result Body Mass Index 20.7 Labs 10/16/23 08:46 10/16/23 08:46 Labs: Laboratory Results - last 48 hr 10/16/23 08:46 Lyme Progressive Test TNP Imaging Radiology Impressions: ITS Impressions Head CT 10/08/23 21:15 IMPRESSION: Unremarkable CT scan of the head. No evidence of acute territorial infarct or hemorrhage. Pelvis Ultrasound 10/19/23 08:16 IMPRESSION: Very limited examination. Further evaluation with MRI of the pelvis as clinically warranted. There is a 4.3 cm simple appearing cyst in the left ovary that is almost certainly benign in a patient of this age and for which no imaging follow-up is recommended in an asymptomatic patient. If an acute ovarian pathology such as torsion is clinically suspected, further evaluation with MRI pelvis is recommended. Medications Medications Current Medications Acetaminophen (Acetaminophen 325 Mg Tablet) 650 mg PO Q6H PRN PRN Reason: Headache/Pain Mild Scale (1-3) Last Admin: 10/13/23 09:37 Dose: 650 mg Al Hydroxide/Mg Hydroxide (Magnesium Hydrox/Alum Hydrox 30 Ml Oral.Susp) 30 ml PO Q6H PRN PRN Reason: Heartburn/Nausea Last Admin: 10/13/23 16:17 Dose: 30 ml Clonazepam (Clonazepam 0.5 Mg Tablet) 0.25 mg PO BID PRN PRN Reason: anxiety Last Admin: 10/18/23 15:46 Dose: 0.25 mg Divalproex Sodium (Divalproex Sodium Er 500 Mg Tab.Er.24h) 500 mg PO BEDTIME [facility] Last Admin: 10/19/23 20:29 Dose: 500 mg Famotidine (Famotidine 20 Mg Tablet) 20 mg PO BEDTIME [facility] Last Admin: 10/19/23 20:29 Dose: 20 mg Hydroxyzine HCl (Hydroxyzine Hcl 25 Mg Tablet) 25 mg PO Q6H PRN PRN Reason: Anxiety Last Admin: 10/18/23 15:46 Dose: 25 mg Magnesium Hydroxide (Milk Of Magnesia 30 Ml Oral.Susp) 30 ml PO DAILY PRN PRN Reason: Constipation Olanzapine (Olanzapine Odt 10 Mg Tab.Rapdis) 10 mg TRANSLINGU BID PRN PRN Reason: Hallucinations Last Admin: 10/15/23 11:50 Dose: 10 mg Omeprazole (Omeprazole 20 Mg Capsule.Dr) 20 mg PO DAILY@0630 [facility] Last Admin: 10/20/23 06:29 Dose: 20 mg Risperidone (Risperidone Oral Indy 1 Mg/Ml Solution) 2 mg PO BID [facility] Last Admin: 10/20/23 09:38 Dose: 2 mg Trazodone HCl (Trazodone Hcl 50 Mg Tablet) 50 mg PO BEDTIME MRX1 PRN PRN Reason: Insomnia Last Admin: 10/18/23 20:01 Dose: 50 mg Allergies Allergies Allergy/AdvReac Type Severity Reaction Status Date / Time metoprolol AdvReac Diarrhea Verified 10/07/23 23:43 Assessment & Plan Assessment & Plan (1) Psychosis: Status: Acute Code(s): F29 - Unspecified psychosis not due to a substance or known physiological condition (2) Delirium: Status: Suspected Code(s): R41.0 - Disorientation, unspecified (3) Intellectual disability: Status: Acute Code(s): F79 - Unspecified intellectual disabilities (4) Left ovarian cyst: Status: Acute Code(s): N83.202 - Unspecified ovarian cyst, left side (5) Major depressive disorder, recurrent episode, severe, with psychosis: Status: Acute Code(s): F33.3 - Major depressive disorder, recurrent, severe with psychotic symptoms (6) UTI (urinary tract infection): Status: Acute Code(s): N39.0 - Urinary tract infection, site not specified Plan 22 yo female with history of depression and anxiety admitted to [facility] due to rapid decompensation in context of recent covid infection. She is internally preoccupied and disorganized as well as almost mute with very few verbal utterances- whispering and mumbling. Unable to sign CV today; did take medication today; will see if she clears up cognitively through the weekend and can sign CV but if unable may have to file. Hospital course: 10/11/continue tx plan 10/12: Continue current management and treatment plan. 10/13: continue current management and treatment plan. 10/14 risperidone changed to liquid 10/15 continue tx plan; labs reordered, d/c antibiotic, encourage meals and fluids 10/16 Patient's mom currently present during interview. Patient gave clear verbal permission for auto service writer to discuss case with her mother, both while patient was present and after patient left the room. -reviewed labs which are unremarkable -Prior to mom coming, Pt talking with peers, staff more freely though still often mumbling; when mom came patient became selectively mute, mumbling, started spitting into a basin. -Regarding mood patient said she is not good. When asked what she would like help with changing, she said to stop telling lies, but could not elaborate -Patient made some references that her family's trying to kill her or that her mom is trying to kill her; when auto service writer asked her why she said because of the food, she was not supposed to eat it however she did... Patient could not clarify further. Patient was drinking water, saying she was thirsty. -Patient said she wanted to go home; said she was taking the medications as told, but accepted she would have to remain on the unit longer; patient decided to leave the room but not before she said that she thinks her mom is trying to get her killed. remains disorganized in speech and behavior with paranoid thinking; slept through the night; no manic symptoms -ordered Neuro consult to help r/o encephalitis 10/17 remains disorganized in speech and behavior, paranoid, guarded -discussed with Dr. Cornell who reports unlikely encephalitis (or due to Covid) and that given time elapsed since contracted Covid (sep 28), testing won't help much; recs doing pelvic ultrasound for teratoma (again unlikely) and getting EEG to see if any slowing; however, if anti-psychotics/mood stabilizers clear up symptoms, this would strongly point at an organic psychotic/manic origin. -per chart, pt does have hx of ovarian cyst Will continue w/ medication treatment; if does not clear up can begin to consider LP, MRI, anti-NDMA antibodies will get pelvic US and EEG (since non-invasive) Impression: dx: -psychosis/joana -r/o delirum -intellectual disability -hx ovarian cyst Hx: -history of developmental delay; however no history of psychosis or manic episodes/behaviors prior to getting COVID infection this September 28 -it is possible that patient had some amount of COVID triggered encephalitis, maybe further complicated by UTI on admission. However, given mom's history of bipolar disorder combined with patient's current presentation (and absence of RDS, metabolic derangement, cardiac events-the lactic acid was elevated), it seems likely that this is a 1st manic break for patient. -at this time will treat for bipolar/psychosis Plan: CV 5 min checks INcrease to Risperdal liquid 2 mg BID. Depakote ER 500 mg q.h.s.; seems like manic break Hold: controldesogestrel-ethinyl estradiol [Apri] 0.15-0.03 mg tablet Hold: Auvelity 45-105 mg tablet,IR,delayed rel,biphasic (dextromethorphan bupropion) Recent history: Patient's mother, Latisha, says that prior to getting COVID September 28, patient was her regular self, without any history of psychotic or manic symptoms. Starting with COVID patient started to decompensate; about 5 days prior to the admission, patient was up all night, not sleeping at all, pacing the house and going into very is rooms in a disorganized manner; she was talking excessively and started complaining of auditory hallucinations (it was only once she got to the unit that she is expressed paranoid delusions). Mom says this is the 1st time patient has had any such manic episode. Mother says she herself has bipolar disorder, has been previously hospitalized and is stable on Depakote and Abilify. No other family history known Other history: -Patient has had an IEP since she was in grade school, often in a therapeutic class environment; 1 on 1 help with all school work; mother says some developmental delay. -She does not think her daughter would be capable of obtaining or keeping a job. -Patient has had 1 friend from school throughout the past years, though the friendship recently ended; she has a lot of online friends. Patient also currently has a boyfriend that she met online but who visits. -Patient has history of intermittent refusal to drink fluids and maybe once every 6 months would end up coming to the hospital ED for dehydration. This was more common when she was in grade school and has only been a few times in the past year -med trials: Low-dose Zyprexa, Abilify; Vraylar, never ended up vortioxetine 10/19/23 continue risperidone trial - no change as yet 10/20/23 improved more verbal ( mother not in today following her) co anxiety with elelvated hr and sometimes bp given prns clonidine, then aterax and clonazepam Patient educated on: medication risk/benefits and medical condition Informed Consent: further education needed Reason for continued inpatient stay Substantial Risk for: inability to function and rapid decompensation Time Spent With Patient Time: Total time managing care of this patient today ____ minutes.
[2023-10-20 13:40] VITALS: BP 147/79; PULSE 138; RESP 16; TEMP 36.8; O2SAT 98
[2023-10-20] MEDS: cloNIDine HCL 0.1 MG TABLET 0.05 MG PO ×2 (13:48→21:56)
[2023-10-20] MEDS: Calcium Carbonate 750 MG TAB.CHEW PO (13:48)
[2023-10-20 14:41] VITALS: BP 130/77; PULSE 133
--- NOTE | 2023-10-20 14:41 | PC.NURSE ---
This nurse reported BP of 130/77, pulse 133 to Jennifer Ibarra via [employer]. this reading is 60 minutes post 0.05mg clonidine d/t HTN and tachycardia.
[2023-10-20] MEDS: clonazePAM 0.5 MG TABLET 0.25 MG PO ×2 (15:07→21:45)
[2023-10-20] MEDS: hydrOXYzine HCL 25 MG TABLET PO (15:07)
[2023-10-20 17:03] LABS: Vitamin D 25-OH, D2 <4 ng/mL; Vitamin D 25-OH, D3 13 ng/mL; Vitamin D 25-OH, Total 13 ng/mL (30-100)
[2023-10-20 17:12] VITALS: BP 125/68; PULSE 114; RESP 15; TEMP 36.2; O2SAT 100
[2023-10-20] MEDS: traZODone HCL 50 MG TABLET PO (21:45)
[2023-10-20] MEDS: Famotidine 20 MG TABLET PO (21:45)
[2023-10-20] MEDS: Divalproex Sodium ER 500 MG TAB.ER.24H PO (21:45)
[2023-10-21] MEDS: Omeprazole 20 MG CAPSULE.DR PO (06:18)
[2023-10-21] MEDS: clonazePAM 0.5 MG TABLET 0.25 MG PO ×2 (08:29→17:27)
[2023-10-21] MEDS: risperiDONE Oral Sol 1 MG/ML SOLUTION 2 MG PO (08:31)
--- NOTE | 2023-10-21 09:00 | EEG_ITS ---
FINDINGS: The background activity consists of a moderate voltage 9 hertz posterior alpha frequency intermixed anteriorly with low voltage fast frequencies. Intermittent periods of slowing, probably related to drowsiness with some disorganization are noted. Patient refused photic stimulation and hyperventilation. No sleep stages are identified. No focal, lateralizing, or paroxysmal discharges are seen. IMPRESSION: This waking and briefly drowsy EEG is considered within normal limits. MD ALEX Romero/HAROON / [id number]
[2023-10-21 09:18] VITALS: BP 132/68; PULSE 107; RESP 18; TEMP 36.8; O2SAT 100
[2023-10-21] MEDS: OLANZapine ODT 10 MG TAB.RAPDIS TRANSLINGU (17:27)
--- NOTE | 2023-10-21 20:40 | P.PNPSI_ITS ---
Subjective Subjective Date of Service: 10/21/23 Reason For Visit: Depresssion Interim History: met with patient; discussed with team; reviewed chart pt remains w/ AH and paranoid delusion that mother wants her because she gave [food].. However, she is open to the idea that maybe she's mistaken, that her mind is playing tricks on her; also, she is more talkative and able to engage in conversation. She also showered and is drinking fluids more regularly (and eating a little better). She agrees to increase in Risperdal mom came to visit; she thinks her daughter is about 5/10. Mental Status Exam Mental Status Exam Narrative: Pt is alert and oriented; behavior is cooperative, more friendly, not so guarded and calm; more organized; patient is not in distress; dressed in casual attire with unkempt hair but adequate hygiene (showered); mood is described as not good and affect congruent; eye contact improved; Speech is still slowed and soft but closer to improved; psychomotor retardation present; thought process is goal directed; Thought content is on delusional, paranoid worries; denies any SI/HI. AH continues; Patients insight and judgment impaired but improving Diagnostics Vital Signs (24Hr): Vital Signs - 24 hr 10/21/23 09:18 Temperature 98.2 F Pulse Rate 107 H Respiratory Rate 18 Blood Pressure 132/68 Pulse Oximetry 100 Oxygen Delivery Method Room Air BMI result Body Mass Index 20.7 Labs 10/16/23 08:46 10/16/23 08:46 Labs: Laboratory Results - last 48 hr 10/16/23 08:46 25-OH Vitamin D Total 13 L 25-Hydroxy Vitamin D2 <4 25-Hydroxy Vitamin D3 13 Imaging Radiology Impressions: ITS Impressions Head CT 10/08/23 21:15 IMPRESSION: Unremarkable CT scan of the head. No evidence of acute territorial infarct or hemorrhage. Pelvis Ultrasound 10/19/23 08:16 IMPRESSION: Very limited examination. Further evaluation with MRI of the pelvis as clinically warranted. There is a 4.3 cm simple appearing cyst in the left ovary that is almost certainly benign in a patient of this age and for which no imaging follow-up is recommended in an asymptomatic patient. If an acute ovarian pathology such as torsion is clinically suspected, further evaluation with MRI pelvis is recommended. Medications Medications Current Medications Acetaminophen (Acetaminophen 325 Mg Tablet) 650 mg PO Q6H PRN PRN Reason: Headache/Pain Mild Scale (1-3) Last Admin: 10/13/23 09:37 Dose: 650 mg Al Hydroxide/Mg Hydroxide (Magnesium Hydrox/Alum Hydrox 30 Ml Oral.Susp) 30 ml PO Q6H PRN PRN Reason: Heartburn/Nausea Last Admin: 10/13/23 16:17 Dose: 30 ml Calcium Carbonate (Calcium Carbonate 750 Mg Tab.Chew) 750 mg PO Q4H PRN PRN Reason: Heartburn Last Admin: 10/20/23 13:48 Dose: 750 mg Clonazepam (Clonazepam 0.5 Mg Tablet) 0.25 mg PO BID PRN PRN Reason: anxiety Last Admin: 10/21/23 17:27 Dose: 0.25 mg Clonidine HCl (Clonidine Hcl 0.1 Mg Tablet) 0.05 mg PO BID [facility]; Protocol Last Admin: 10/21/23 08:34 Dose: Not Given Divalproex Sodium (Divalproex Sodium Er 500 Mg Tab.Er.24h) 500 mg PO BEDTIME KRISTI Last Admin: 10/20/23 21:45 Dose: 500 mg Famotidine (Famotidine 20 Mg Tablet) 20 mg PO BEDTIME KRISTI Last Admin: 10/20/23 21:45 Dose: 20 mg Hydroxyzine HCl (Hydroxyzine Hcl 25 Mg Tablet) 25 mg PO Q6H PRN PRN Reason: Anxiety Last Admin: 10/20/23 15:07 Dose: 25 mg Magnesium Hydroxide (Milk Of Magnesia 30 Ml Oral.Susp) 30 ml PO DAILY PRN PRN Reason: Constipation Olanzapine (Olanzapine Odt 10 Mg Tab.Rapdis) 10 mg TRANSLINGU BID PRN PRN Reason: Hallucinations Last Admin: 10/21/23 17:27 Dose: 10 mg Omeprazole (Omeprazole 20 Mg Capsule.Dr) 20 mg PO DAILY@0630 KRISTI Last Admin: 10/21/23 06:18 Dose: 20 mg Risperidone (Risperidone Oral Indy 1 Mg/Ml Solution) 2 mg PO DAILY KRISTI Risperidone (Risperidone Oral Indy 1 Mg/Ml Solution) 4 mg PO BEDTIME KRISTI Trazodone HCl (Trazodone Hcl 50 Mg Tablet) 50 mg PO BEDTIME MRX1 PRN PRN Reason: Insomnia Last Admin: 10/20/23 21:45 Dose: 50 mg Allergies Allergies Allergy/AdvReac Type Severity Reaction Status Date / Time metoprolol AdvReac Diarrhea Verified 10/07/23 23:43 Assessment & Plan Assessment & Plan (1) Psychosis: Status: Acute Code(s): F29 - Unspecified psychosis not due to a substance or known physiological condition (2) Delirium: Status: Suspected Code(s): R41.0 - Disorientation, unspecified (3) Intellectual disability: Status: Acute Code(s): F79 - Unspecified intellectual disabilities (4) Left ovarian cyst: Status: Acute Code(s): N83.202 - Unspecified ovarian cyst, left side (5) Major depressive disorder, recurrent episode, severe, with psychosis: Status: Acute Code(s): F33.3 - Major depressive disorder, recurrent, severe with psychotic symptoms (6) UTI (urinary tract infection): Status: Acute Code(s): N39.0 - Urinary tract infection, site not specified Plan 22 yo female with history of depression and anxiety admitted to due to rapid decompensation in context of recent covid infection. She is internally preoccupied and disorganized as well as almost mute with very few verbal utterances- whispering and mumbling. Recent history: Patient's mother, Latisha, says that prior to getting COVID September 28, patient was her regular self, without any history of psychotic or manic symptoms. Starting with COVID patient started to decompensate; about 5 days prior to the admission, patient was up all night, not sleeping at all, pacing the house and going into very is rooms in a disorganized manner; she was talking excessively and started complaining of auditory hallucinations (it was only once she got to the unit that she is expressed paranoid delusions). Mom says this is the 1st time patient has had any such manic episode. Mother says she herself has bipolar disorder, has been previously hospitalized and is stable on Depakote and Abilify. No other family history known Hx: -history of developmental delay; however no history of psychosis or manic episodes/behaviors prior to getting COVID infection this September 28 Impression: -it is possible that patient had some amount of COVID triggered encephalitis, maybe further complicated by UTI on admission. However, given mom's history of bipolar disorder combined with patient's current presentation (and absence of RDS, metabolic derangement, cardiac events-the lactic acid was elevated), it seems likely that this is a 1st manic break for patient. -at this time will treat for bipolar/psychosis Hospital course: 10/11/continue tx plan 10/12: Continue current management and treatment plan. 10/13: continue current management and treatment plan. 10/14 risperidone changed to liquid 10/15 continue tx plan; labs reordered, d/c antibiotic, encourage meals and fluids 10/16 Patient's mom currently present during interview. Patient gave clear verbal permission for machine sign writer to discuss case with her mother, both while patient was present and after patient left the room. -reviewed labs which are unremarkable -Prior to mom coming, Pt talking with peers, staff more freely though still often mumbling; when mom came patient became selectively mute, mumbling, started spitting into a basin. -Regarding mood patient said she is not good. When asked what she would like help with changing, she said to stop telling lies, but could not elaborate -Patient made some references that her family's trying to kill her or that her mom is trying to kill her; when machine sign writer asked her why she said because of the food, she was not supposed to eat it however she did... Patient could not clarify further. Patient was drinking water, saying she was thirsty. -Patient said she wanted to go home; said she was taking the medications as told, but accepted she would have to remain on the unit longer; patient decided to leave the room but not before she said that she thinks her mom is trying to get her killed. remains disorganized in speech and behavior with paranoid thinking; slept through the night; no manic symptoms -ordered Neuro consult to help r/o encephalitis 10/17 remains disorganized in speech and behavior, paranoid, guarded -discussed with Dr. Cornell who reports unlikely encephalitis (or due to Covid) and that given time elapsed since contracted Covid (sep 28), testing won't help much; recs doing pelvic ultrasound for teratoma (again unlikely) and getting EEG to see if any slowing; however, if anti-psychotics/mood stabilizers clear up symptoms, this would strongly point at an organic psychotic/manic origin. -per chart, pt does have hx of ovarian cyst Will continue w/ medication treatment; if does not clear up can begin to consider LP, MRI, anti-NDMA antibodies will get pelvic US and EEG (since non-invasive) 10/19/23 continue risperidone trial - no change as yet 10/20/23 improved more verbal ( mother not in today following her) co anxiety with elelvated hr and sometimes bp given prns clonidine, then aterax and clonazepam 10/20 pt remains w/ AH and paranoid delusion that mother wants her because she gave [food].. However, she is open to the idea that maybe she's mistaken, that her mind is playing tricks on her; also, she is more talkative and able to engage in conversation. She also showered and is drinking fluids more regularly (and eating a little better). She agrees to increase in Risperdal -mom came to visit; she thinks her daughter is about 5/10. -will increase risperdal (considered increasing depakote since likely bipolar, however no manic symptoms and prominent symptoms remain psychotic dx: -psychosis/joana -r/o delirum -intellectual disability -hx ovarian cyst Plan: CV 15 min checks Continue Risperdal liquid 2mg daily INcrease to Risperdal liquid 4mg at bedtime (up from 2mg). Depakote ER 500 mg q.h.s.; seems like manic break Hold: controldesogestrel-ethinyl estradiol [Apri] 0.15-0.03 mg tablet Hold: Auvelity 45-105 mg tablet,IR,delayed rel,biphasic (dextromethorphan bupropion) Other history: -Patient has had an IEP since she was in grade school, often in a therapeutic class environment; 1 on 1 help with all school work; mother says some developmental delay. -She does not think her daughter would be capable of obtaining or keeping a job. -Patient has had 1 friend from school throughout the past years, though the friendship recently ended; she has a lot of online friends. Patient also currently has a boyfriend that she met online but who visits. -Patient has history of intermittent refusal to drink fluids and maybe once every 6 months would end up coming to the hospital ED for dehydration. This was more common when she was in grade school and has only been a few times in the past year -med trials: Low-dose Zyprexa, Abilify; Vraylar, never ended up vortioxetine Patient educated on: diagnosis and medication risk/benefits Informed Consent: understands, does not understand and further education needed Reason for continued inpatient stay Substantial Risk for: inability to function Time Spent With Patient Time: Total time managing care of this patient today ____ minutes.
[2023-10-21 21:20] VITALS: BP 122/86; PULSE 92; RESP 14; TEMP 36.1; O2SAT 100
[2023-10-21] MEDS: cloNIDine HCL 0.1 MG TABLET 0.05 MG PO (21:20)
[2023-10-21] MEDS: risperiDONE Oral Sol 1 MG/ML SOLUTION 4 MG PO (21:21)
--- NOTE | 2023-10-21 21:28 | PC.NURSE ---
During HS medication administration, Preeti took risperdone liquid and clonidine tablet. Afterward, patient stated that she could not swallow any more pills.
[2023-10-22 08:00] VITALS: BP 115/85; PULSE 120; RESP 18; TEMP 36.1; O2SAT 100
[2023-10-22] MEDS: cloNIDine HCL 0.1 MG TABLET 0.05 MG PO ×2 (08:51→21:22)
[2023-10-22] MEDS: risperiDONE Oral Sol 1 MG/ML SOLUTION 2 MG PO (08:53)
[2023-10-22] MEDS: Omeprazole 20 MG CAPSULE.DR PO (09:08)
--- NOTE | 2023-10-22 09:56 | HO.PSYCHPN ---
Subjective Subjective Date of Service: 10/22/23 Reason For Visit: Depresssion Interim History: met with patient; discussed with team pt says sh'es a little better today. Still with AH that says she's not wanted... still w/ delusion her mom is trying to kill her. However, she also says she has a good visit w/ her mom and wants to go home to be with her. Mental Status Exam Mental Status Exam Narrative: Pt is alert and oriented; behavior is cooperative, more friendly, not so guarded and calm; more organized; patient is not in distress; dressed in casual attire with unkempt hair but adequate hygiene (showered); mood is described as not good and affect congruent; eye contact improved; Speech is still slowed and soft but closer to improved; psychomotor retardation present; thought process is goal directed; Thought content is on delusional, paranoid worries; denies any SI/HI. AH continues; Patients insight and judgment impaired but improving Diagnostics Vital Signs (24Hr): Vital Signs - 24 hr 10/21/23 21:20 10/22/23 08:00 Temperature 97 F 97.0 F Pulse Rate 92 120 H Respiratory Rate 14 18 Blood Pressure 122/86 115/85 Pulse Oximetry 100 100 Oxygen Delivery Method Room Air Room Air BMI result Body Mass Index 20.7 Labs 10/16/23 08:46 10/16/23 08:46 Labs: Laboratory Results - last 48 hr 10/16/23 08:46 25-OH Vitamin D Total 13 L 25-Hydroxy Vitamin D2 <4 25-Hydroxy Vitamin D3 13 Imaging Radiology Impressions: ITS Impressions Head CT 10/08/23 21:15 IMPRESSION: Unremarkable CT scan of the head. No evidence of acute territorial infarct or hemorrhage. Pelvis Ultrasound 10/19/23 08:16 IMPRESSION: Very limited examination. Further evaluation with MRI of the pelvis as clinically warranted. There is a 4.3 cm simple appearing cyst in the left ovary that is almost certainly benign in a patient of this age and for which no imaging follow-up is recommended in an asymptomatic patient. If an acute ovarian pathology such as torsion is clinically suspected, further evaluation with MRI pelvis is recommended. Medications Medications Current Medications Acetaminophen (Acetaminophen 325 Mg Tablet) 650 mg PO Q6H PRN PRN Reason: Headache/Pain Mild Scale (1-3) Last Admin: 10/13/23 09:37 Dose: 650 mg Al Hydroxide/Mg Hydroxide (Magnesium Hydrox/Alum Hydrox 30 Ml Oral.Susp) 30 ml PO Q6H PRN PRN Reason: Heartburn/Nausea Last Admin: 10/13/23 16:17 Dose: 30 ml Calcium Carbonate (Calcium Carbonate 750 Mg Tab.Chew) 750 mg PO Q4H PRN PRN Reason: Heartburn Last Admin: 10/20/23 13:48 Dose: 750 mg Clonazepam (Clonazepam 0.5 Mg Tablet) 0.25 mg PO BID PRN PRN Reason: anxiety Last Admin: 10/21/23 17:27 Dose: 0.25 mg Clonidine HCl (Clonidine Hcl 0.1 Mg Tablet) 0.05 mg PO BID KRISTI; Protocol Last Admin: 10/22/23 08:51 Dose: 0.05 mg Divalproex Sodium (Divalproex Sodium Er 500 Mg Tab.Er.24h) 500 mg PO BEDTIME KRISTI Last Admin: 10/21/23 21:26 Dose: Not Given Famotidine (Famotidine 20 Mg Tablet) 20 mg PO BEDTIME KRISTI Last Admin: 10/21/23 21:26 Dose: Not Given Hydroxyzine HCl (Hydroxyzine Hcl 25 Mg Tablet) 25 mg PO Q6H PRN PRN Reason: Anxiety Last Admin: 10/20/23 15:07 Dose: 25 mg Magnesium Hydroxide (Milk Of Magnesia 30 Ml Oral.Susp) 30 ml PO DAILY PRN PRN Reason: Constipation Olanzapine (Olanzapine Odt 10 Mg Tab.Rapdis) 10 mg TRANSLINGU BID PRN PRN Reason: Hallucinations Last Admin: 10/21/23 17:27 Dose: 10 mg Omeprazole (Omeprazole 20 Mg Capsule.Dr) 20 mg PO DAILY@0630 KRISTI Last Admin: 10/22/23 09:08 Dose: 20 mg Risperidone (Risperidone Oral Indy 1 Mg/Ml Solution) 2 mg PO DAILY KRISTI Last Admin: 10/22/23 08:53 Dose: 2 mg Risperidone (Risperidone Oral Indy 1 Mg/Ml Solution) 4 mg PO BEDTIME KRISTI Last Admin: 10/21/23 21:21 Dose: 4 mg Trazodone HCl (Trazodone Hcl 50 Mg Tablet) 50 mg PO BEDTIME MRX1 PRN PRN Reason: Insomnia Last Admin: 10/20/23 21:45 Dose: 50 mg Allergies Allergies Allergy/AdvReac Type Severity Reaction Status Date / Time metoprolol AdvReac Diarrhea Verified 10/07/23 23:43 Assessment & Plan Assessment & Plan (1) Psychosis: Status: Acute Code(s): F29 - Unspecified psychosis not due to a substance or known physiological condition (2) Delirium: Status: Suspected Code(s): R41.0 - Disorientation, unspecified (3) Intellectual disability: Status: Acute Code(s): F79 - Unspecified intellectual disabilities (4) Left ovarian cyst: Status: Acute Code(s): N83.202 - Unspecified ovarian cyst, left side (5) Major depressive disorder, recurrent episode, severe, with psychosis: Status: Acute Code(s): F33.3 - Major depressive disorder, recurrent, severe with psychotic symptoms (6) UTI (urinary tract infection): Status: Acute Code(s): N39.0 - Urinary tract infection, site not specified Plan 22 yo female with history of depression and anxiety admitted to due to rapid decompensation in context of recent covid infection. She is internally preoccupied and disorganized as well as almost mute with very few verbal utterances- whispering and mumbling. Recent history: Patient's mother, Latisha, says that prior to getting COVID September 28, patient was her regular self, without any history of psychotic or manic symptoms. Starting with COVID patient started to decompensate; about 5 days prior to the admission, patient was up all night, not sleeping at all, pacing the house and going into very is rooms in a disorganized manner; she was talking excessively and started complaining of auditory hallucinations (it was only once she got to the unit that she is expressed paranoid delusions). Mom says this is the 1st time patient has had any such manic episode. Mother says she herself has bipolar disorder, has been previously hospitalized and is stable on Depakote and Abilify. No other family history known Hx: -history of developmental delay; however no history of psychosis or manic episodes/behaviors prior to getting COVID infection this September 28 Impression: -it is possible that patient had some amount of COVID triggered encephalitis, maybe further complicated by UTI on admission. However, given mom's history of bipolar disorder combined with patient's current presentation (and absence of RDS, metabolic derangement, cardiac events-the lactic acid was elevated), it seems likely that this is a 1st manic break for patient. -at this time will treat for bipolar/psychosis Hospital course: 10/11/continue tx plan 10/12: Continue current management and treatment plan. 10/13: continue current management and treatment plan. 10/14 risperidone changed to liquid 10/15 continue tx plan; labs reordered, d/c antibiotic, encourage meals and fluids 10/16 Patient's mom currently present during interview. Patient gave clear verbal permission for commercial real estate underwriter to discuss case with her mother, both while patient was present and after patient left the room. -reviewed labs which are unremarkable -Prior to mom coming, Pt talking with peers, staff more freely though still often mumbling; when mom came patient became selectively mute, mumbling, started spitting into a basin. -Regarding mood patient said she is not good. When asked what she would like help with changing, she said to stop telling lies, but could not elaborate -Patient made some references that her family's trying to kill her or that her mom is trying to kill her; when commercial real estate underwriter asked her why she said because of the food, she was not supposed to eat it however she did... Patient could not clarify further. Patient was drinking water, saying she was thirsty. -Patient said she wanted to go home; said she was taking the medications as told, but accepted she would have to remain on the unit longer; patient decided to leave the room but not before she said that she thinks her mom is trying to get her killed. remains disorganized in speech and behavior with paranoid thinking; slept through the night; no manic symptoms -ordered Neuro consult to help r/o encephalitis 10/17 remains disorganized in speech and behavior, paranoid, guarded -discussed with Dr. Cornell who reports unlikely encephalitis (or due to Covid) and that given time elapsed since contracted Covid (sep 28), testing won't help much; recs doing pelvic ultrasound for teratoma (again unlikely) and getting EEG to see if any slowing; however, if anti-psychotics/mood stabilizers clear up symptoms, this would strongly point at an organic psychotic/manic origin. -per chart, pt does have hx of ovarian cyst Will continue w/ medication treatment; if does not clear up can begin to consider LP, MRI, anti-NDMA antibodies will get pelvic US and EEG (since non-invasive) 10/19/23 continue risperidone trial - no change as yet 10/20/23 improved more verbal ( mother not in today following her) co anxiety with elelvated hr and sometimes bp given prns clonidine, then aterax and clonazepam 10/20 pt remains w/ AH and paranoid delusion that mother wants her because she gave [food].. However, she is open to the idea that maybe she's mistaken, that her mind is playing tricks on her; also, she is more talkative and able to engage in conversation. She also showered and is drinking fluids more regularly (and eating a little better). She agrees to increase in Risperdal -mom came to visit; she thinks her daughter is about 12/26. -will increase risperdal (considered increasing depakote since likely bipolar, however no manic symptoms and prominent symptoms remain psychotic 10/21 little better; she feels so, she went to group and participated appropriately, talking more; however still with AH/paranoid delusions. will increase Riserpdal futrher dx: -psychosis/joana -r/o delirum -intellectual disability -hx ovarian cyst Plan: CV 15 min checks adding risperdal 0.5mg BID Increase to Risperdal liquid 3mg daily INcrease to Risperdal liquid 4mg at bedtime (up from 2mg). Depakote ER 500 mg q.h.s.; seems like manic break Hold: controldesogestrel-ethinyl estradiol [Apri] 0.15-0.03 mg tablet Hold: Auvelity 45-105 mg tablet,IR,delayed rel,biphasic (dextromethorphan bupropion) Other history: -Patient has had an IEP since she was in grade school, often in a therapeutic class environment; 1 on 1 help with all school work; mother says some developmental delay. -She does not think her daughter would be capable of obtaining or keeping a job. -Patient has had 1 friend from school throughout the past years, though the friendship recently ended; she has a lot of online friends. Patient also currently has a boyfriend that she met online but who visits. -Patient has history of intermittent refusal to drink fluids and maybe once every 6 months would end up coming to the hospital ED for dehydration. This was more common when she was in grade school and has only been a few times in the past year -med trials: Low-dose Zyprexa, Chau; Aamir, never ended up vortioxetine Patient educated on: diagnosis and medication risk/benefits Informed Consent: understands, does not understand and further education needed Reason for continued inpatient stay Substantial Risk for: inability to function Time Spent With Patient Time: Total time managing care of this patient today ____ minutes.
[2023-10-22] MEDS: Calcium Carbonate 750 MG TAB.CHEW PO (10:48)
[2023-10-22] MEDS: hydrOXYzine HCL 25 MG TABLET PO (13:19)
[2023-10-22] MEDS: risperiDONE 1 MG TABLET PO (15:06)
[2023-10-22 17:03] VITALS: BP 118/77; PULSE 86; RESP 18; TEMP 36.2; O2SAT 99
[2023-10-22 19:22] VITALS: BP 118/77; PULSE 86; RESP 16; TEMP 36.2; O2SAT 99
[2023-10-22] MEDS: risperiDONE Oral Sol 1 MG/ML SOLUTION 4 MG PO (21:22)
[2023-10-22] MEDS: OLANZapine ODT 10 MG TAB.RAPDIS TRANSLINGU (21:22)
[2023-10-22] MEDS: Famotidine 20 MG TABLET PO (21:22)
[2023-10-22] MEDS: risperiDONE 0.5 MG TABLET PO (21:22)
[2023-10-23] MEDS: Omeprazole 20 MG CAPSULE.DR PO (05:35)
[2023-10-23 08:00] VITALS: BP 132/85; PULSE 155; RESP 16; TEMP 36.4; O2SAT 98
[2023-10-23] MEDS: cloNIDine HCL 0.1 MG TABLET 0.05 MG PO ×2 (08:27→19:55)
[2023-10-23 09:12] VITALS: PULSE 103
[2023-10-23] MEDS: Calcium Carbonate 750 MG TAB.CHEW PO (09:21)
[2023-10-23] MEDS: risperiDONE Oral Sol 1 MG/ML SOLUTION 3 MG PO (11:44)
[2023-10-23 18:00] VITALS: BP 112/70; PULSE 122; RESP 16; TEMP 36.4; O2SAT 100
[2023-10-23] MEDS: Milk of Magnesia 30 ML ORAL.SUSP PO (18:04)
[2023-10-23] MEDS: Famotidine 20 MG TABLET PO (19:54)
[2023-10-23] MEDS: traZODone HCL 50 MG TABLET PO (19:55)
[2023-10-23] MEDS: risperiDONE Oral Sol 1 MG/ML SOLUTION 4 MG PO (19:55)
--- NOTE | 2023-10-23 21:43 | HO.PSYCHPN ---
Subjective Subjective Date of Service: 10/23/23 Reason For Visit: Depresssion Interim History: pt withdrawn slowed mentation more organized thought cont aud gastelum PI taking risp Mental Status Exam Mental Status Exam Patient Appearance: Unkempt Patient Orientation: Person, Place, Time and Situation Level of Consciousness: Awake Patient Behavior: Cooperative and Poor Eye Contact Mood Description: Anxious Affect Description: Apprehensive Patient Cognition Impaired: Yes Ability to Follow Directions: Poor Speech Pattern: Mumbled Thought Content: positive for [place] and positive for Poverty of Content Depressive Symptoms: Increased Anxiety, Muscle Tension and Difficulty Concentrating Abnormal Motor Activity Signs and Symptoms: Muscle Rigidity Judgement: Poor Diagnostics Vital Signs (24Hr): Vital Signs - 24 hr 10/23/23 08:00 10/23/23 09:12 10/23/23 18:00 Temperature 97.5 F 97.5 F Pulse Rate 155 H 103 H 122 H Respiratory Rate 16 16 Blood Pressure 132/85 112/70 Pulse Oximetry 98 100 Oxygen Delivery Method Room Air BMI result Body Mass Index 20.7 Labs 10/16/23 08:46 10/16/23 08:46 Imaging Radiology Impressions: ITS Impressions Head CT 10/08/23 21:15 IMPRESSION: Unremarkable CT scan of the head. No evidence of acute territorial infarct or hemorrhage. Pelvis Ultrasound 10/19/23 08:16 IMPRESSION: Very limited examination. Further evaluation with MRI of the pelvis as clinically warranted. There is a 4.3 cm simple appearing cyst in the left ovary that is almost certainly benign in a patient of this age and for which no imaging follow-up is recommended in an asymptomatic patient. If an acute ovarian pathology such as torsion is clinically suspected, further evaluation with MRI pelvis is recommended. Medications Medications Current Medications Acetaminophen (Acetaminophen 325 Mg Tablet) 650 mg PO Q6H PRN PRN Reason: Headache/Pain Mild Scale (1-3) Last Admin: 10/13/23 09:37 Dose: 650 mg Al Hydroxide/Mg Hydroxide (Magnesium Hydrox/Alum Hydrox 30 Ml Oral.Susp) 30 ml PO Q6H PRN PRN Reason: Heartburn/Nausea Last Admin: 10/13/23 16:17 Dose: 30 ml Calcium Carbonate (Calcium Carbonate 750 Mg Tab.Chew) 750 mg PO Q4H PRN PRN Reason: Heartburn Last Admin: 10/23/23 09:21 Dose: 750 mg Clonidine HCl (Clonidine Hcl 0.1 Mg Tablet) 0.05 mg PO BID KRISTI; Protocol Last Admin: 10/23/23 19:55 Dose: 0.05 mg Famotidine (Famotidine 20 Mg Tablet) 20 mg PO BEDTIME KRISTI Last Admin: 10/23/23 19:54 Dose: 20 mg Hydroxyzine HCl (Hydroxyzine Hcl 25 Mg Tablet) 25 mg PO Q6H PRN PRN Reason: Anxiety Last Admin: 10/22/23 13:19 Dose: 25 mg Magnesium Hydroxide (Milk Of Magnesia 30 Ml Oral.Susp) 30 ml PO DAILY PRN PRN Reason: Constipation Last Admin: 10/23/23 18:04 Dose: 30 ml Olanzapine (Olanzapine Odt 10 Mg Tab.Rapdis) 10 mg TRANSLINGU BID PRN PRN Reason: Hallucinations Last Admin: 10/22/23 21:22 Dose: 10 mg Omeprazole (Omeprazole 20 Mg Capsule.Dr) 20 mg PO DAILY@0630 KRISTI Last Admin: 10/23/23 05:35 Dose: 20 mg Risperidone (Risperidone Oral Indy 1 Mg/Ml Solution) 4 mg PO BEDTIME KRISTI Last Admin: 10/23/23 19:55 Dose: 4 mg Risperidone (Risperidone 0.5 Mg Tablet) 0.5 mg PO Q4H PRN PRN Reason: psychosis/agitation Last Admin: 10/22/23 21:22 Dose: 0.5 mg Risperidone (Risperidone Oral Indy 1 Mg/Ml Solution) 3 mg PO DAILY [facility] Last Admin: 10/23/23 11:44 Dose: 3 mg Trazodone HCl (Trazodone Hcl 50 Mg Tablet) 50 mg PO BEDTIME MRX1 PRN PRN Reason: Insomnia Last Admin: 10/23/23 19:55 Dose: 50 mg Allergies Allergies Allergy/AdvReac Type Severity Reaction Status Date / Time metoprolol AdvReac Diarrhea Verified 10/07/23 23:43 Assessment & Plan Assessment & Plan (1) Psychosis: Status: Acute Code(s): F29 - Unspecified psychosis not due to a substance or known physiological condition (2) Delirium: Status: Suspected Code(s): R41.0 - Disorientation, unspecified (3) Intellectual disability: Status: Acute Code(s): F79 - Unspecified intellectual disabilities (4) Left ovarian cyst: Status: Acute Code(s): N83.202 - Unspecified ovarian cyst, left side (5) Major depressive disorder, recurrent episode, severe, with psychosis: Status: Acute Code(s): F33.3 - Major depressive disorder, recurrent, severe with psychotic symptoms (6) UTI (urinary tract infection): Status: Acute Code(s): N39.0 - Urinary tract infection, site not specified Plan 22 yo female with history of depression and anxiety admitted to [facility] due to rapid decompensation in context of recent covid infection. She is internally preoccupied and disorganized as well as almost mute with very few verbal utterances- whispering and mumbling. Recent history: Patient's mother, Latisha, says that prior to getting COVID September 28, patient was her regular self, without any history of psychotic or manic symptoms. Starting with COVID patient started to decompensate; about 5 days prior to the admission, patient was up all night, not sleeping at all, pacing the house and going into very is rooms in a disorganized manner; she was talking excessively and started complaining of auditory hallucinations (it was only once she got to the unit that she is expressed paranoid delusions). Mom says this is the 1st time patient has had any such manic episode. Mother says she herself has bipolar disorder, has been previously hospitalized and is stable on Depakote and Abilify. No other family history known Hx: -history of developmental delay; however no history of psychosis or manic episodes/behaviors prior to getting COVID infection this September 28 Impression: -it is possible that patient had some amount of COVID triggered encephalitis, maybe further complicated by UTI on admission. However, given mom's history of bipolar disorder combined with patient's current presentation (and absence of RDS, metabolic derangement, cardiac events-the lactic acid was elevated), it seems likely that this is a 1st manic break for patient. -at this time will treat for bipolar/psychosis Hospital course: 10/11/continue tx plan 10/12: Continue current management and treatment plan. 10/13: continue current management and treatment plan. 10/14 risperidone changed to liquid 10/15 continue tx plan; labs reordered, d/c antibiotic, encourage meals and fluids 10/16 Patient's mom currently present during interview. Patient gave clear verbal permission for creative services writer to discuss case with her mother, both while patient was present and after patient left the room. -reviewed labs which are unremarkable -Prior to mom coming, Pt talking with peers, staff more freely though still often mumbling; when mom came patient became selectively mute, mumbling, started spitting into a basin. -Regarding mood patient said she is not good. When asked what she would like help with changing, she said to stop telling lies, but could not elaborate -Patient made some references that her family's trying to kill her or that her mom is trying to kill her; when creative services writer asked her why she said because of the food, she was not supposed to eat it however she did... Patient could not clarify further. Patient was drinking water, saying she was thirsty. -Patient said she wanted to go home; said she was taking the medications as told, but accepted she would have to remain on the unit longer; patient decided to leave the room but not before she said that she thinks her mom is trying to get her killed. remains disorganized in speech and behavior with paranoid thinking; slept through the night; no manic symptoms -ordered Neuro consult to help r/o encephalitis 10/17 remains disorganized in speech and behavior, paranoid, guarded -discussed with Dr. Cornell who reports unlikely encephalitis (or due to Covid) and that given time elapsed since contracted Covid (sep 28), testing won't help much; recs doing pelvic ultrasound for teratoma (again unlikely) and getting EEG to see if any slowing; however, if anti-psychotics/mood stabilizers clear up symptoms, this would strongly point at an organic psychotic/manic origin. -per chart, pt does have hx of ovarian cyst Will continue w/ medication treatment; if does not clear up can begin to consider LP, MRI, anti-NDMA antibodies will get pelvic US and EEG (since non-invasive) 10/19/23 continue risperidone trial - no change as yet 10/20/23 improved more verbal ( mother not in today following her) co anxiety with elelvated hr and sometimes bp given prns clonidine, then aterax and clonazepam 10/20 pt remains w/ AH and paranoid delusion that mother wants her because she gave [food].. However, she is open to the idea that maybe she's mistaken, that her mind is playing tricks on her; also, she is more talkative and able to engage in conversation. She also showered and is drinking fluids more regularly (and eating a little better). She agrees to increase in Risperdal -mom came to visit; she thinks her daughter is about 5/10. -will increase risperdal (considered increasing depakote since likely bipolar, however no manic symptoms and prominent symptoms remain psychotic 3/5 little better; she feels so, she went to group and participated appropriately, talking more; however still with AH/paranoid delusions. will increase Riserpdal futrher 10/23/23 psychotic dx cont risperadol dx: -psychosis/joana -r/o delirum -intellectual disability -hx ovarian cyst Plan: CV 15 min checks adding risperdal 0.5mg BID Increase to Risperdal liquid 3mg daily INcrease to Risperdal liquid 4mg at bedtime (up from 2mg). Depakote ER 500 mg q.h.s.; seems like manic break Hold: controldesogestrel-ethinyl estradiol [Apri] 0.15-0.03 mg tablet Hold: Auvelity 45-105 mg tablet,IR,delayed rel,biphasic (dextromethorphan bupropion) Other history: -Patient has had an IEP since she was in grade school, often in a therapeutic class environment; 1 on 1 help with all school work; mother says some developmental delay. -She does not think her daughter would be capable of obtaining or keeping a job. -Patient has had 1 friend from school throughout the past years, though the friendship recently ended; she has a lot of online friends. Patient also currently has a boyfriend that she met online but who visits. -Patient has history of intermittent refusal to drink fluids and maybe once every 6 months would end up coming to the hospital ED for dehydration. This was more common when she was in grade school and has only been a few times in the past year -med trials: Low-dose Zyprexa, Abilify; Vraylar, never ended up vortioxetine Reason for continued inpatient stay Substantial Risk for: inability to function and rapid decompensation Time Spent With Patient Time: Total time managing care of this patient today ____ minutes.
--- NOTE | 2023-10-24 | ECG_ITS ---
Test Reason : chest pain Blood Pressure : / mmHG Vent. Rate : 086 BPM Atrial Rate : 086 BPM P-R Int : 152 ms QRS Dur : 086 ms QT Int : 342 ms P-R-T Axes : 030 057 020 degrees QTc Int : 409 ms Normal sinus rhythm Normal ECG When compared with ECG of 18-OCT-2023 16:36, No significant change was found Referred By: Hossein Smith Electronically Signed By:Aníbal Montez
[2023-10-24] MEDS: Omeprazole 20 MG CAPSULE.DR PO (05:07)
[2023-10-24 07:00] VITALS: BMI 23.3
[2023-10-24 07:30] VITALS: BP 117/69; PULSE 101; RESP 15; TEMP 36.7; O2SAT 98
[2023-10-24] MEDS: cloNIDine HCL 0.1 MG TABLET 0.05 MG PO ×2 (08:32→20:03)
[2023-10-24] MEDS: risperiDONE Oral Sol 1 MG/ML SOLUTION 3 MG PO (08:33)
--- NOTE | 2023-10-24 10:05 | HO.PSYCHPN ---
Subjective Subjective Date of Service: 10/24/23 Reason For Visit: Depresssion Interim History: met with patient; discussed with team; reviewed chart psychotic; AH remain paranoid delusions remain, thinks mom will kill her; won't eat luch saying i think it's pt sitting calmly on bed, complains of chest pain and Says feels she can't breath focused exam: Lungs: CTA b/l throughout Cardiac: tachycaria; other regular rhythm vitals mildly tachycardic 100 bpm bp 128/79 RR 16 O2 sat 100% ekg; unremarkable Mental Status Exam Mental Status Exam Narrative: Pt is alert and oriented; behavior is still disorganized (though less so) cooperative, more friendly, not so guarded and calm; patient is not in distress; dressed in casual attire with unkempt hair but adequate hygiene (showered); mood is described as not good and affect congruent; eye contact improved; Speech is still slowed and soft but improved; psychomotor retardation present; thought process is goal directed; Thought content is on delusional, paranoid worries; denies any SI/HI. AH continues; Patients insight and judgment impaired. Diagnostics Vital Signs (24Hr): Vital Signs - 24 hr 10/23/23 18:00 10/24/23 07:30 Temperature 97.5 F 98.0 F Pulse Rate 122 H 101 H Respiratory Rate 16 15 Blood Pressure 112/70 117/69 Pulse Oximetry 100 98 Oxygen Delivery Method Room Air Room Air BMI result Body Mass Index 20.7 Labs 10/16/23 08:46 10/16/23 08:46 Imaging Radiology Impressions: ITS Impressions Head CT 10/08/23 21:15 IMPRESSION: Unremarkable CT scan of the head. No evidence of acute territorial infarct or hemorrhage. Pelvis Ultrasound 10/19/23 08:16 IMPRESSION: Very limited examination. Further evaluation with MRI of the pelvis as clinically warranted. There is a 4.3 cm simple appearing cyst in the left ovary that is almost certainly benign in a patient of this age and for which no imaging follow-up is recommended in an asymptomatic patient. If an acute ovarian pathology such as torsion is clinically suspected, further evaluation with MRI pelvis is recommended. Medications Medications Current Medications Acetaminophen (Acetaminophen 325 Mg Tablet) 650 mg PO Q6H PRN PRN Reason: Headache/Pain Mild Scale (1-3) Last Admin: 10/13/23 09:37 Dose: 650 mg Al Hydroxide/Mg Hydroxide (Magnesium Hydrox/Alum Hydrox 30 Ml Oral.Susp) 30 ml PO Q6H PRN PRN Reason: Heartburn/Nausea Last Admin: 10/13/23 16:17 Dose: 30 ml Calcium Carbonate (Calcium Carbonate 750 Mg Tab.Chew) 750 mg PO Q4H PRN PRN Reason: Heartburn Last Admin: 10/23/23 09:21 Dose: 750 mg Clonidine HCl (Clonidine Hcl 0.1 Mg Tablet) 0.05 mg PO BID KRISTI; Protocol Last Admin: 10/24/23 08:32 Dose: 0.05 mg Famotidine (Famotidine 20 Mg Tablet) 20 mg PO BEDTIME KRISTI Last Admin: 10/23/23 19:54 Dose: 20 mg Hydroxyzine HCl (Hydroxyzine Hcl 25 Mg Tablet) 25 mg PO Q6H PRN PRN Reason: Anxiety Last Admin: 10/22/23 13:19 Dose: 25 mg Magnesium Hydroxide (Milk Of Magnesia 30 Ml Oral.Susp) 30 ml PO DAILY PRN PRN Reason: Constipation Last Admin: 10/23/23 18:04 Dose: 30 ml Olanzapine (Olanzapine Odt 10 Mg Tab.Rapdis) 10 mg TRANSLINGU BID PRN PRN Reason: Hallucinations Last Admin: 10/22/23 21:22 Dose: 10 mg Omeprazole (Omeprazole 20 Mg Capsule.Dr) 20 mg PO DAILY@0630 KRISTI Last Admin: 10/24/23 05:07 Dose: 20 mg Risperidone (Risperidone Oral Indy 1 Mg/Ml Solution) 4 mg PO BEDTIME KRISTI Last Admin: 10/23/23 19:55 Dose: 4 mg Risperidone (Risperidone 0.5 Mg Tablet) 0.5 mg PO Q4H PRN PRN Reason: psychosis/agitation Last Admin: 10/22/23 21:22 Dose: 0.5 mg Risperidone (Risperidone Oral Indy 1 Mg/Ml Solution) 3 mg PO DAILY KRISTI Last Admin: 10/24/23 08:33 Dose: 3 mg Trazodone HCl (Trazodone Hcl 50 Mg Tablet) 50 mg PO BEDTIME MRX1 PRN PRN Reason: Insomnia Last Admin: 10/23/23 19:55 Dose: 50 mg Allergies Allergies Allergy/AdvReac Type Severity Reaction Status Date / Time metoprolol AdvReac Diarrhea Verified 10/07/23 23:43 Assessment & Plan Assessment & Plan (1) Psychosis: Status: Acute Code(s): F29 - Unspecified psychosis not due to a substance or known physiological condition (2) Delirium: Status: Suspected Code(s): R41.0 - Disorientation, unspecified (3) Intellectual disability: Status: Acute Code(s): F79 - Unspecified intellectual disabilities (4) Left ovarian cyst: Status: Acute Code(s): N83.202 - Unspecified ovarian cyst, left side (5) Major depressive disorder, recurrent episode, severe, with psychosis: Status: Acute Code(s): F33.3 - Major depressive disorder, recurrent, severe with psychotic symptoms (6) UTI (urinary tract infection): Status: Acute Code(s): N39.0 - Urinary tract infection, site not specified Plan 22 yo female with history of depression and anxiety admitted to [facility] due to rapid decompensation in context of recent covid infection. She is internally preoccupied and disorganized as well as almost mute with very few verbal utterances- whispering and mumbling. Recent history: Patient's mother, Latisha, says that prior to getting COVID September 28, patient was her regular self, without any history of psychotic or manic symptoms. Starting with COVID patient started to decompensate; about 5 days prior to the admission, patient was up all night, not sleeping at all, pacing the house and going into very is rooms in a disorganized manner; she was talking excessively and started complaining of auditory hallucinations (it was only once she got to the unit that she is expressed paranoid delusions). Mom says this is the 1st time patient has had any such manic episode. Mother says she herself has bipolar disorder, has been previously hospitalized and is stable on Depakote and Abilify. No other family history known Hx: -history of developmental delay; however no history of psychosis or manic episodes/behaviors prior to getting COVID infection this September 28 Impression: -it is possible that patient had some amount of COVID triggered encephalitis, maybe further complicated by UTI on admission. However, given mom's history of bipolar disorder combined with patient's current presentation (and absence of RDS, metabolic derangement, cardiac events-the lactic acid was elevated), it seems likely that this is a 1st manic break for patient. -at this time will treat for bipolar/psychosis Hospital course: 10/11/continue tx plan 10/12: Continue current management and treatment plan. 10/13: continue current management and treatment plan. 10/14 risperidone changed to liquid 10/15 continue tx plan; labs reordered, d/c antibiotic, encourage meals and fluids 10/16 Patient's mom currently present during interview. Patient gave clear verbal permission for check writer salesperson to discuss case with her mother, both while patient was present and after patient left the room. -reviewed labs which are unremarkable -Prior to mom coming, Pt talking with peers, staff more freely though still often mumbling; when mom came patient became selectively mute, mumbling, started spitting into a basin. -Regarding mood patient said she is not good. When asked what she would like help with changing, she said to stop telling lies, but could not elaborate -Patient made some references that her family's trying to kill her or that her mom is trying to kill her; when check writer salesperson asked her why she said because of the food, she was not supposed to eat it however she did... Patient could not clarify further. Patient was drinking water, saying she was thirsty. -Patient said she wanted to go home; said she was taking the medications as told, but accepted she would have to remain on the unit longer; patient decided to leave the room but not before she said that she thinks her mom is trying to get her killed. remains disorganized in speech and behavior with paranoid thinking; slept through the night; no manic symptoms -ordered Neuro consult to help r/o encephalitis 10/17 remains disorganized in speech and behavior, paranoid, guarded -discussed with Dr. Cornell who reports unlikely encephalitis (or due to Covid) and that given time elapsed since contracted Covid (sep 28), testing won't help much; recs doing pelvic ultrasound for teratoma (again unlikely) and getting EEG to see if any slowing; however, if anti-psychotics/mood stabilizers clear up symptoms, this would strongly point at an organic psychotic/manic origin. -per chart, pt does have hx of ovarian cyst Will continue w/ medication treatment; if does not clear up can begin to consider LP, MRI, anti-NDMA antibodies will get pelvic US and EEG (since non-invasive) 10/19/23 continue risperidone trial - no change as yet 10/20/23 improved more verbal ( mother not in today following her) co anxiety with elelvated hr and sometimes bp given prns clonidine, then aterax and clonazepam 10/20 pt remains w/ AH and paranoid delusion that mother wants her because she gave [food].. However, she is open to the idea that maybe she's mistaken, that her mind is playing tricks on her; also, she is more talkative and able to engage in conversation. She also showered and is drinking fluids more regularly (and eating a little better). She agrees to increase in Risperdal -mom came to visit; she thinks her daughter is about 12/26. -will increase risperdal (considered increasing depakote since likely bipolar, however no manic symptoms and prominent symptoms remain psychotic 10/21 little better; she feels so, she went to group and participated appropriately, talking more; however still with AH/paranoid delusions. will increase Riserpdal futrher 10/23/23 psychotic dx cont risperadol 10/23 no longer manic, but remains with intrusive AH and paranoid delusions (intermittently keeping her from eating) that have not lessened at all, despite being on Risperdal 7mg and Zyprexa (used as prn, but used frequently, up to 20mg). Likely risperdal +/- Zyprexa helped to quite some manic symptoms early on in admission (which soon fully resolved) but have not touched psychotic ones. Will dc both and start Haldol dx: -psychosis/joana -r/o delirum -intellectual disability -hx ovarian cyst Plan: CV 15 min checks START Haldol 5mg BID DC risperdal DC zyprexa prn dc'd depakote 500mg (pt refused so stopped) Hold: controldesogestrel-ethinyl estradiol [Apri] 0.15-0.03 mg tablet Hold: Auvelity 45-105 mg tablet,IR,delayed rel,biphasic (dextromethorphan bupropion) Other history: -Patient has had an IEP since she was in grade school, often in a therapeutic class environment; 1 on 1 help with all school work; mother says some developmental delay. -She does not think her daughter would be capable of obtaining or keeping a job. -Patient has had 1 friend from school throughout the past years, though the friendship recently ended; she has a lot of online friends. Patient also currently has a boyfriend that she met online but who visits. -Patient has history of intermittent refusal to drink fluids and maybe once every 6 months would end up coming to the hospital ED for dehydration. This was more common when she was in grade school and has only been a few times in the past year -med trials: Low-dose Zyprexa, Abilify; Vraylar, never ended up vortioxetine Patient educated on: diagnosis and medication risk/benefits Informed Consent: understands, does not understand and further education needed Reason for continued inpatient stay Substantial Risk for: inability to function Time Spent With Patient Time: Total time managing care of this patient today ____ minutes.
--- NOTE | 2023-10-24 12:29 | PC.NURSE ---
Pt c/o chest pain and SOB. VSS, states it radiates around left breast and is a 10/10 pain. Pt appears to be resting comfortably in her bed. Information priority texted to Dr. Méndez and Dr. Smith. EKG being ordered.
[2023-10-24] MEDS: hydrOXYzine HCL 25 MG TABLET PO ×2 (13:08→18:39)
[2023-10-24] MEDS: Haloperidol Lactate Oral Conc 10 MG/5 ML ORAL.CONC 5 MG PO ×2 (17:13→20:02)
[2023-10-24 18:00] VITALS: BP 130/83; PULSE 120; RESP 16; TEMP 36.6; O2SAT 99
[2023-10-24] MEDS: Famotidine 20 MG TABLET PO (20:04)
[2023-10-24] MEDS: traZODone HCL 50 MG TABLET PO (20:04)
[2023-10-25] MEDS: Omeprazole 20 MG CAPSULE.DR PO (05:33)
[2023-10-25 08:12] VITALS: BP 103/59; PULSE 97; RESP 16; TEMP 36.6; O2SAT 98
[2023-10-25] MEDS: cloNIDine HCL 0.1 MG TABLET 0.05 MG PO ×2 (09:10→20:19)
[2023-10-25] MEDS: Haloperidol Lactate Oral Conc 10 MG/5 ML ORAL.CONC 5 MG PO ×3 (09:11→20:20)
--- NOTE | 2023-10-25 09:30 | P.PNPSI_ITS ---
Subjective Subjective Date of Service: 10/25/23 Reason For Visit: Depresssion Interim History: met with patient; discussed with team Patient remains with auditory hallucinations, paranoid delusions... Disorganized (though less so than on admission). Tolerating Haldol. Discussed case with her mother who agrees with medication change as Risperdal and Zyprexa did not seem to be doing much. Mental Status Exam Mental Status Exam Narrative: Pt is alert and oriented; behavior is still disorganized (though less so) cooperative, more friendly, not so guarded and calm; patient is not in distress; dressed in casual attire with unkempt hair but adequate hygiene (showered); mood is described as not good and affect congruent; eye contact improved; Speech is still slowed and soft but improved; psychomotor retardation present; thought process is goal directed; Thought content is on delusional, paranoid worries; denies any SI/HI. AH continues; Patients insight and judgment impaired. Diagnostics Vital Signs (24Hr): Vital Signs - 24 hr 10/24/23 18:00 10/25/23 08:12 Temperature 97.9 F 97.9 F Pulse Rate 120 H 97 Respiratory Rate 16 16 Blood Pressure 130/83 103/59 L Pulse Oximetry 99 98 Oxygen Delivery Method Room Air BMI result Body Mass Index 23.3 Labs 10/16/23 08:46 10/16/23 08:46 Imaging Radiology Impressions: ITS Impressions Head CT 10/08/23 21:15 IMPRESSION: Unremarkable CT scan of the head. No evidence of acute territorial infarct or hemorrhage. Pelvis Ultrasound 10/19/23 08:16 IMPRESSION: Very limited examination. Further evaluation with MRI of the pelvis as clinically warranted. There is a 4.3 cm simple appearing cyst in the left ovary that is almost certainly benign in a patient of this age and for which no imaging follow-up is recommended in an asymptomatic patient. If an acute ovarian pathology such as torsion is clinically suspected, further evaluation with MRI pelvis is recommended. Medications Medications Current Medications Acetaminophen (Acetaminophen 325 Mg Tablet) 650 mg PO Q6H PRN PRN Reason: Headache/Pain Mild Scale (1-3) Last Admin: 10/13/23 09:37 Dose: 650 mg Al Hydroxide/Mg Hydroxide (Magnesium Hydrox/Alum Hydrox 30 Ml Oral.Susp) 30 ml PO Q6H PRN PRN Reason: Heartburn/Nausea Last Admin: 10/13/23 16:17 Dose: 30 ml Calcium Carbonate (Calcium Carbonate 750 Mg Tab.Chew) 750 mg PO Q4H PRN PRN Reason: Heartburn Last Admin: 10/23/23 09:21 Dose: 750 mg Clonidine HCl (Clonidine Hcl 0.1 Mg Tablet) 0.05 mg PO BID [facility]; Protocol Last Admin: 10/25/23 09:10 Dose: 0.05 mg Famotidine (Famotidine 20 Mg Tablet) 20 mg PO BEDTIME [facility] Last Admin: 10/24/23 20:04 Dose: 20 mg Haloperidol Lactate (Haloperidol Lactate Oral Conc 10 Mg/5 Ml Oral.Conc) 5 mg PO BID [facility] Last Admin: 10/25/23 09:11 Dose: 5 mg Haloperidol Lactate (Haloperidol Lactate Oral Conc 10 Mg/5 Ml Oral.Conc) 1 mg PO QID PRN PRN Reason: anxiety/psychosis Hydroxyzine HCl (Hydroxyzine Hcl 25 Mg Tablet) 25 mg PO Q6H PRN PRN Reason: Anxiety Last Admin: 10/24/23 18:39 Dose: 25 mg Magnesium Hydroxide (Milk Of Magnesia 30 Ml Oral.Susp) 30 ml PO DAILY PRN PRN Reason: Constipation Last Admin: 10/23/23 18:04 Dose: 30 ml Omeprazole (Omeprazole 20 Mg Capsule.Dr) 20 mg PO DAILY@0630 [facility] Last Admin: 10/25/23 05:33 Dose: 20 mg Trazodone HCl (Trazodone Hcl 50 Mg Tablet) 50 mg PO BEDTIME MRX1 PRN PRN Reason: Insomnia Last Admin: 10/24/23 20:04 Dose: 50 mg Allergies Allergies Allergy/AdvReac Type Severity Reaction Status Date / Time metoprolol AdvReac Diarrhea Verified 10/07/23 23:43 Assessment & Plan Assessment & Plan (1) Psychosis: Status: Acute Code(s): F29 - Unspecified psychosis not due to a substance or known physiological condition (2) Delirium: Status: Suspected Code(s): R41.0 - Disorientation, unspecified (3) Intellectual disability: Status: Acute Code(s): F79 - Unspecified intellectual disabilities (4) Left ovarian cyst: Status: Acute Code(s): N83.202 - Unspecified ovarian cyst, left side (5) Major depressive disorder, recurrent episode, severe, with psychosis: Status: Acute Code(s): F33.3 - Major depressive disorder, recurrent, severe with psychotic symptoms (6) UTI (urinary tract infection): Status: Acute Code(s): N39.0 - Urinary tract infection, site not specified Plan 22 yo female with history of depression and anxiety admitted to [facility] due to rapid decompensation in context of recent covid infection. She is internally preoccupied and disorganized as well as almost mute with very few verbal utterances- whispering and mumbling. Recent history: Patient's mother, Latisha, says that prior to getting COVID September 28, patient was her regular self, without any history of psychotic or manic symptoms. Starting with COVID patient started to decompensate; about 5 days prior to the admission, patient was up all night, not sleeping at all, pacing the house and going into very is rooms in a disorganized manner; she was talking excessively and started complaining of auditory hallucinations (it was only once she got to the unit that she is expressed paranoid delusions). Mom says this is the 1st time patient has had any such manic episode. Mother says she herself has bipolar disorder, has been previously hospitalized and is stable on Depakote and Abilify. No other family history known Hx: -history of developmental delay; however no history of psychosis or manic episodes/behaviors prior to getting COVID infection this September 28 Impression: -it is possible that patient had some amount of COVID triggered encephalitis, maybe further complicated by UTI on admission. However, given mom's history of bipolar disorder combined with patient's current presentation (and absence of RDS, metabolic derangement, cardiac events-the lactic acid was elevated), it seems likely that this is a 1st manic break for patient. -at this time will treat for bipolar/psychosis Hospital course: 10/11/continue tx plan 10/12: Continue current management and treatment plan. 10/13: continue current management and treatment plan. 10/14 risperidone changed to liquid 10/15 continue tx plan; labs reordered, d/c antibiotic, encourage meals and fluids 10/16 Patient's mom currently present during interview. Patient gave clear verbal permission for specification writer to discuss case with her mother, both while patient was present and after patient left the room. -reviewed labs which are unremarkable -Prior to mom coming, Pt talking with peers, staff more freely though still often mumbling; when mom came patient became selectively mute, mumbling, started spitting into a basin. -Regarding mood patient said she is not good. When asked what she would like help with changing, she said to stop telling lies, but could not elaborate -Patient made some references that her family's trying to kill her or that her mom is trying to kill her; when specification writer asked her why she said because of the food, she was not supposed to eat it however she did... Patient could not clarify further. Patient was drinking water, saying she was thirsty. -Patient said she wanted to go home; said she was taking the medications as told, but accepted she would have to remain on the unit longer; patient decided to leave the room but not before she said that she thinks her mom is trying to get her killed. remains disorganized in speech and behavior with paranoid thinking; slept through the night; no manic symptoms -ordered Neuro consult to help r/o encephalitis 10/17 remains disorganized in speech and behavior, paranoid, guarded -discussed with Dr. Cornell who reports unlikely encephalitis (or due to Covid) and that given time elapsed since contracted Covid (sep 28), testing won't help much; recs doing pelvic ultrasound for teratoma (again unlikely) and getting EEG to see if any slowing; however, if anti-psychotics/mood stabilizers clear up symptoms, this would strongly point at an organic psychotic/manic origin. -per chart, pt does have hx of ovarian cyst Will continue w/ medication treatment; if does not clear up can begin to consider LP, MRI, anti-NDMA antibodies will get pelvic US and EEG (since non-invasive) 10/19/23 continue risperidone trial - no change as yet 10/20/23 improved more verbal ( mother not in today following her) co anxiety with elelvated hr and sometimes bp given prns clonidine, then aterax and clonazepam 10/20 pt remains w/ AH and paranoid delusion that mother wants her because she gave [food].. However, she is open to the idea that maybe she's mistaken, that her mind is playing tricks on her; also, she is more talkative and able to engage in conversation. She also showered and is drinking fluids more regularly (and eating a little better). She agrees to increase in Risperdal -mom came to visit; she thinks her daughter is about 5/10. -will increase risperdal (considered increasing depakote since likely bipolar, however no manic symptoms and prominent symptoms remain psychotic 10/21 little better; she feels so, she went to group and participated appropriately, talking more; however still with AH/paranoid delusions. will increase Riserpdal futrher 10/23/23 psychotic dx cont risperadol 10/23 no longer manic, but remains with intrusive AH and paranoid delusions (intermittently keeping her from eating) that have not lessened at all, despite being on Risperdal 7mg and Zyprexa (used as prn, but used frequently, up to 20mg). Likely risperdal +/- Zyprexa helped to quite some manic symptoms early on in admission (which soon fully resolved) but have not touched psychotic ones. Will dc both and start Haldol 10/24 remains with psychotic symptoms, AH, paranoid delusions... continue with Haldol titration dx: -psychosis/joana -r/o delirum -intellectual disability -hx ovarian cyst Plan: CV 15 min checks Increase to Haldol 5mg t.i.d. (patient was on the equivalent dose of Haldol 15 mg between getting both Risperdal and Zyprexa which have both been discontinued) DC risperdal DC zyprexa prn dc'd depakote 500mg (pt refused so stopped) Hold: controldesogestrel-ethinyl estradiol [Apri] 0.15-0.03 mg tablet Hold: Auvelity 45-105 mg tablet,IR,delayed rel,biphasic (dextromethorphan bupropion) Other history: -Patient has had an IEP since she was in grade school, often in a therapeutic class environment; 1 on 1 help with all school work; mother says some developmental delay. -She does not think her daughter would be capable of obtaining or keeping a job. -Patient has had 1 friend from school throughout the past years, though the friendship recently ended; she has a lot of online friends. Patient also currently has a boyfriend that she met online but who visits. -Patient has history of intermittent refusal to drink fluids and maybe once every 6 months would end up coming to the hospital ED for dehydration. This was more common when she was in grade school and has only been a few times in the past year -med trials: Low-dose Zyprexa, Abilify; Vraylar, never ended up vortioxetine Patient educated on: diagnosis and medication risk/benefits Informed Consent: understands, does not understand and further education needed Reason for continued inpatient stay Substantial Risk for: inability to function Time Spent With Patient Time: Total time managing care of this patient today ____ minutes.
[2023-10-25 18:08] VITALS: BP 100/62; PULSE 75; RESP 16; TEMP 35.8; O2SAT 99
[2023-10-25] MEDS: traZODone HCL 50 MG TABLET PO (20:19)
[2023-10-25] MEDS: Famotidine 20 MG TABLET PO (20:20)
[2023-10-26] MEDS: Omeprazole 20 MG CAPSULE.DR PO (05:39)
[2023-10-26 08:00] VITALS: BP 91/60; PULSE 74; RESP 16; TEMP 36.2; O2SAT 99
[2023-10-26] MEDS: cloNIDine HCL 0.1 MG TABLET 0.05 MG PO ×2 (09:25→20:46)
[2023-10-26] MEDS: Haloperidol Lactate Oral Conc 10 MG/5 ML ORAL.CONC 5 MG PO ×3 (09:26→20:47)
--- NOTE | 2023-10-26 10:09 | HO.PSYCHPN ---
Subjective Subjective Date of Service: 10/26/23 Reason For Visit: Depresssion Interim History: Met with patient; discussed with team Patient says she is okay for the 1st time this admission says that maybe the voices are getting a little better, less bothersome. Still has paranoid thoughts that food is poisoned. Agrees to continue current treatment plan and no complaints about medication side effects Mental Status Exam Mental Status Exam Narrative: Pt is alert and oriented; behavior is still disorganized (though less so) cooperative, more friendly, not so guarded and calm; patient is not in distress; dressed in casual attire with unkempt hair but adequate hygiene (showered); mood is described as not good and affect congruent; eye contact improved; Speech is still slowed and soft but improved; psychomotor retardation present; thought process is goal directed; Thought content is on delusional, paranoid worries; denies any SI/HI. AH continues but says less bothersome; Patients insight and judgment impaired. Diagnostics Vital Signs (24Hr): Vital Signs - 24 hr 10/25/23 18:08 Temperature 96.4 F L Pulse Rate 75 Respiratory Rate 16 Blood Pressure 100/62 Pulse Oximetry 99 Oxygen Delivery Method Room Air BMI result Body Mass Index 23.3 Labs 10/16/23 08:46 10/16/23 08:46 Imaging Radiology Impressions: ITS Impressions Head CT 10/08/23 21:15 IMPRESSION: Unremarkable CT scan of the head. No evidence of acute territorial infarct or hemorrhage. Pelvis Ultrasound 10/19/23 08:16 IMPRESSION: Very limited examination. Further evaluation with MRI of the pelvis as clinically warranted. There is a 4.3 cm simple appearing cyst in the left ovary that is almost certainly benign in a patient of this age and for which no imaging follow-up is recommended in an asymptomatic patient. If an acute ovarian pathology such as torsion is clinically suspected, further evaluation with MRI pelvis is recommended. Medications Medications Current Medications Acetaminophen (Acetaminophen 325 Mg Tablet) 650 mg PO Q6H PRN PRN Reason: Headache/Pain Mild Scale (1-3) Last Admin: 10/13/23 09:37 Dose: 650 mg Al Hydroxide/Mg Hydroxide (Magnesium Hydrox/Alum Hydrox 30 Ml Oral.Susp) 30 ml PO Q6H PRN PRN Reason: Heartburn/Nausea Last Admin: 10/13/23 16:17 Dose: 30 ml Calcium Carbonate (Calcium Carbonate 750 Mg Tab.Chew) 750 mg PO Q4H PRN PRN Reason: Heartburn Last Admin: 10/23/23 09:21 Dose: 750 mg Clonidine HCl (Clonidine Hcl 0.1 Mg Tablet) 0.05 mg PO BID [facility]; Protocol Last Admin: 10/26/23 09:25 Dose: 0.05 mg Famotidine (Famotidine 20 Mg Tablet) 20 mg PO BEDTIME [facility] Last Admin: 10/25/23 20:20 Dose: 20 mg Haloperidol Lactate (Haloperidol Lactate Oral Conc 10 Mg/5 Ml Oral.Conc) 1 mg PO QID PRN PRN Reason: anxiety/psychosis Haloperidol Lactate (Haloperidol Lactate Oral Conc 10 Mg/5 Ml Oral.Conc) 5 mg PO TID [facility] Last Admin: 10/26/23 09:26 Dose: 5 mg Hydroxyzine HCl (Hydroxyzine Hcl 25 Mg Tablet) 25 mg PO Q6H PRN PRN Reason: Anxiety Last Admin: 10/24/23 18:39 Dose: 25 mg Magnesium Hydroxide (Milk Of Magnesia 30 Ml Oral.Susp) 30 ml PO DAILY PRN PRN Reason: Constipation Last Admin: 10/23/23 18:04 Dose: 30 ml Omeprazole (Omeprazole 20 Mg Capsule.Dr) 20 mg PO DAILY@0630 [facility] Last Admin: 10/26/23 05:39 Dose: 20 mg Trazodone HCl (Trazodone Hcl 50 Mg Tablet) 50 mg PO BEDTIME MRX1 PRN PRN Reason: Insomnia Last Admin: 10/25/23 20:19 Dose: 50 mg Allergies Allergies Allergy/AdvReac Type Severity Reaction Status Date / Time metoprolol AdvReac Diarrhea Verified 10/07/23 23:43 Assessment & Plan Assessment & Plan (1) Psychosis: Status: Acute Code(s): F29 - Unspecified psychosis not due to a substance or known physiological condition (2) Delirium: Status: Suspected Code(s): R41.0 - Disorientation, unspecified (3) Intellectual disability: Status: Acute Code(s): F79 - Unspecified intellectual disabilities (4) Left ovarian cyst: Status: Acute Code(s): N83.202 - Unspecified ovarian cyst, left side (5) Major depressive disorder, recurrent episode, severe, with psychosis: Status: Acute Code(s): F33.3 - Major depressive disorder, recurrent, severe with psychotic symptoms (6) UTI (urinary tract infection): Status: Acute Code(s): N39.0 - Urinary tract infection, site not specified Plan 22 yo female with history of depression and anxiety admitted to [facility] due to rapid decompensation in context of recent covid infection. She is internally preoccupied and disorganized as well as almost mute with very few verbal utterances- whispering and mumbling. Recent history: Patient's mother, Latisha, says that prior to getting COVID September 28, patient was her regular self, without any history of psychotic or manic symptoms. Starting with COVID patient started to decompensate; about 5 days prior to the admission, patient was up all night, not sleeping at all, pacing the house and going into very is rooms in a disorganized manner; she was talking excessively and started complaining of auditory hallucinations (it was only once she got to the unit that she is expressed paranoid delusions). Mom says this is the 1st time patient has had any such manic episode. Mother says she herself has bipolar disorder, has been previously hospitalized and is stable on Depakote and Abilify. No other family history known Hx: -history of developmental delay; however no history of psychosis or manic episodes/behaviors prior to getting COVID infection this September 28 Impression: -it is possible that patient had some amount of COVID triggered encephalitis, maybe further complicated by UTI on admission. However, given mom's history of bipolar disorder combined with patient's current presentation (and absence of RDS, metabolic derangement, cardiac events-the lactic acid was elevated), it seems likely that this is a 1st manic break for patient. -at this time will treat for bipolar/psychosis Hospital course: 10/11/continue tx plan 10/12: Continue current management and treatment plan. 10/13: continue current management and treatment plan. 10/14 risperidone changed to liquid 10/15 continue tx plan; labs reordered, d/c antibiotic, encourage meals and fluids 10/16 Patient's mom currently present during interview. Patient gave clear verbal permission for assembly instructions writer to discuss case with her mother, both while patient was present and after patient left the room. -reviewed labs which are unremarkable -Prior to mom coming, Pt talking with peers, staff more freely though still often mumbling; when mom came patient became selectively mute, mumbling, started spitting into a basin. -Regarding mood patient said she is not good. When asked what she would like help with changing, she said to stop telling lies, but could not elaborate -Patient made some references that her family's trying to kill her or that her mom is trying to kill her; when assembly instructions writer asked her why she said because of the food, she was not supposed to eat it however she did... Patient could not clarify further. Patient was drinking water, saying she was thirsty. -Patient said she wanted to go home; said she was taking the medications as told, but accepted she would have to remain on the unit longer; patient decided to leave the room but not before she said that she thinks her mom is trying to get her killed. remains disorganized in speech and behavior with paranoid thinking; slept through the night; no manic symptoms -ordered Neuro consult to help r/o encephalitis 10/17 remains disorganized in speech and behavior, paranoid, guarded -discussed with Dr. Cornell who reports unlikely encephalitis (or due to Covid) and that given time elapsed since contracted Covid (sep 28), testing won't help much; recs doing pelvic ultrasound for teratoma (again unlikely) and getting EEG to see if any slowing; however, if anti-psychotics/mood stabilizers clear up symptoms, this would strongly point at an organic psychotic/manic origin. -per chart, pt does have hx of ovarian cyst Will continue w/ medication treatment; if does not clear up can begin to consider LP, MRI, anti-NDMA antibodies will get pelvic US and EEG (since non-invasive) 10/19/23 continue risperidone trial - no change as yet 10/20/23 improved more verbal ( mother not in today following her) co anxiety with elelvated hr and sometimes bp given prns clonidine, then aterax and clonazepam 10/20 pt remains w/ AH and paranoid delusion that mother wants her because she gave [food].. However, she is open to the idea that maybe she's mistaken, that her mind is playing tricks on her; also, she is more talkative and able to engage in conversation. She also showered and is drinking fluids more regularly (and eating a little better). She agrees to increase in Risperdal -mom came to visit; she thinks her daughter is about 5/10. -will increase risperdal (considered increasing depakote since likely bipolar, however no manic symptoms and prominent symptoms remain psychotic 10/21 little better; she feels so, she went to group and participated appropriately, talking more; however still with AH/paranoid delusions. will increase Riserpdal futrher 10/23/23 psychotic dx cont risperadol 10/23 no longer manic, but remains with intrusive AH and paranoid delusions (intermittently keeping her from eating) that have not lessened at all, despite being on Risperdal 7mg and Zyprexa (used as prn, but used frequently, up to 20mg). Likely risperdal +/- Zyprexa helped to quite some manic symptoms early on in admission (which soon fully resolved) but have not touched psychotic ones. Will dc both and start Haldol 10/24 remains with psychotic symptoms, AH, paranoid delusions... continue with Haldol titration 10/25 for the 1st time patient says AH is less bothersome; assembly instructions writer cautiously optimistic and will continue with current treatment plan dx: -psychosis/joana -r/o delirum -intellectual disability -hx ovarian cyst Plan: CV 15 min checks Continue Haldol 5mg t.i.d. (patient was on the equivalent dose of Haldol 15 mg between getting both Risperdal and Zyprexa which have both been discontinued) DC risperdal DC zyprexa prn dc'd depakote 500mg (pt refused so stopped) Hold: controldesogestrel-ethinyl estradiol [Apri] 0.15-0.03 mg tablet Hold: Auvelity 45-105 mg tablet,IR,delayed rel,biphasic (dextromethorphan bupropion) Other history: -Patient has had an IEP since she was in grade school, often in a therapeutic class environment; 1 on 1 help with all school work; mother says some developmental delay. -She does not think her daughter would be capable of obtaining or keeping a job. -Patient has had 1 friend from school throughout the past years, though the friendship recently ended; she has a lot of online friends. Patient also currently has a boyfriend that she met online but who visits. -Patient has history of intermittent refusal to drink fluids and maybe once every 6 months would end up coming to the hospital ED for dehydration. This was more common when she was in grade school and has only been a few times in the past year -med trials: Low-dose Zyprexa, Abilify; Vraylar, never ended up vortioxetine Patient educated on: diagnosis and medication risk/benefits Informed Consent: understands and further education needed Reason for continued inpatient stay Substantial Risk for: inability to function and rapid decompensation Time Spent With Patient Time: Total time managing care of this patient today ____ minutes.
[2023-10-26] MEDS: Acetaminophen 325 MG TABLET 650 MG PO (10:59)
[2023-10-26] MEDS: Calcium Carbonate 750 MG TAB.CHEW PO (10:59)
[2023-10-26 16:54] VITALS: BP 102/52; PULSE 82; RESP 14; TEMP 36.4; O2SAT 99
[2023-10-26] MEDS: Famotidine 20 MG TABLET PO (20:46)
[2023-10-26] MEDS: traZODone HCL 50 MG TABLET PO (20:47)
[2023-10-27] MEDS: Omeprazole 20 MG CAPSULE.DR PO (06:05)
[2023-10-27 09:30] VITALS: BP 105/60; PULSE 60; TEMP 36.1; O2SAT 96
[2023-10-27] MEDS: Haloperidol Lactate Oral Conc 10 MG/5 ML ORAL.CONC 5 MG PO ×2 (09:39→13:06)
[2023-10-27] MEDS: cloNIDine HCL 0.1 MG TABLET 0.05 MG PO ×2 (09:39→19:52)
[2023-10-27] MEDS: Magnesium Hydrox/Alum Hydrox 30 ML ORAL.SUSP PO (10:10)
[2023-10-27] MEDS: Calcium Carbonate 750 MG TAB.CHEW PO (10:11)
--- NOTE | 2023-10-27 10:58 | HO.PSYCHPN ---
Subjective Subjective Date of Service: 10/27/23 Reason For Visit: Depresssion Interim History: met with patient; discussed with team unfortunately, c/o voices again today, saying they are worse...saying mean things to her. She remains pranoid about food, thinking it's poisoned, not eating...spitting in waste can out of anxiety of food... Mental Status Exam Mental Status Exam Narrative: Pt is alert and oriented; behavior is still disorganized (though less so) cooperative, more friendly, not so guarded and calm; patient is not in distress; dressed in casual attire with unkempt hair but adequate hygiene (showered); mood is described as not good and affect congruent; eye contact improved; Speech is still slowed and soft but improved; psychomotor retardation present; thought process is goal directed; Thought content is on delusional, paranoid worries; denies any SI/HI. AH continues back to problematic; Patients insight and judgment impaired. Diagnostics Vital Signs (24Hr): Vital Signs - 24 hr 10/26/23 16:54 10/27/23 09:30 Temperature 97.5 F 97 F Pulse Rate 82 60 Respiratory Rate 14 Blood Pressure 102/52 L 105/60 Pulse Oximetry 99 96 Oxygen Delivery Method Room Air Room Air BMI result Body Mass Index 23.3 Labs 10/16/23 08:46 10/16/23 08:46 Imaging Radiology Impressions: ITS Impressions Head CT 10/08/23 21:15 IMPRESSION: Unremarkable CT scan of the head. No evidence of acute territorial infarct or hemorrhage. Pelvis Ultrasound 10/19/23 08:16 IMPRESSION: Very limited examination. Further evaluation with MRI of the pelvis as clinically warranted. There is a 4.3 cm simple appearing cyst in the left ovary that is almost certainly benign in a patient of this age and for which no imaging follow-up is recommended in an asymptomatic patient. If an acute ovarian pathology such as torsion is clinically suspected, further evaluation with MRI pelvis is recommended. Medications Medications Current Medications Acetaminophen (Acetaminophen 325 Mg Tablet) 650 mg PO Q6H PRN PRN Reason: Headache/Pain Mild Scale (1-3) Last Admin: 10/26/23 10:59 Dose: 650 mg Al Hydroxide/Mg Hydroxide (Magnesium Hydrox/Alum Hydrox 30 Ml Oral.Susp) 30 ml PO Q6H PRN PRN Reason: Heartburn/Nausea Last Admin: 10/27/23 10:10 Dose: 30 ml Calcium Carbonate (Calcium Carbonate 750 Mg Tab.Chew) 750 mg PO Q4H PRN PRN Reason: Heartburn Last Admin: 10/27/23 10:11 Dose: 750 mg Clonidine HCl (Clonidine Hcl 0.1 Mg Tablet) 0.05 mg PO BID [facility]; Protocol Last Admin: 10/27/23 09:39 Dose: 0.05 mg Famotidine (Famotidine 20 Mg Tablet) 20 mg PO BEDTIME [facility] Last Admin: 10/26/23 20:46 Dose: 20 mg Haloperidol Lactate (Haloperidol Lactate Oral Conc 10 Mg/5 Ml Oral.Conc) 1 mg PO QID PRN PRN Reason: anxiety/psychosis Haloperidol Lactate (Haloperidol Lactate Oral Conc 10 Mg/5 Ml Oral.Conc) 5 mg PO TID [facility] Last Admin: 10/27/23 09:39 Dose: 5 mg Hydroxyzine HCl (Hydroxyzine Hcl 25 Mg Tablet) 25 mg PO Q6H PRN PRN Reason: Anxiety Last Admin: 10/24/23 18:39 Dose: 25 mg Magnesium Hydroxide (Milk Of Magnesia 30 Ml Oral.Susp) 30 ml PO DAILY PRN PRN Reason: Constipation Last Admin: 10/23/23 18:04 Dose: 30 ml Omeprazole (Omeprazole 20 Mg Capsule.Dr) 20 mg PO DAILY@0630 [facility] Last Admin: 10/27/23 06:05 Dose: 20 mg Trazodone HCl (Trazodone Hcl 50 Mg Tablet) 50 mg PO BEDTIME MRX1 PRN PRN Reason: Insomnia Last Admin: 10/26/23 20:47 Dose: 50 mg Allergies Allergies Allergy/AdvReac Type Severity Reaction Status Date / Time metoprolol AdvReac Diarrhea Verified 10/07/23 23:43 Assessment & Plan Assessment & Plan (1) Psychosis: Status: Acute Code(s): F29 - Unspecified psychosis not due to a substance or known physiological condition (2) Delirium: Status: Suspected Code(s): R41.0 - Disorientation, unspecified (3) Intellectual disability: Status: Acute Code(s): F79 - Unspecified intellectual disabilities (4) Left ovarian cyst: Status: Acute Code(s): N83.202 - Unspecified ovarian cyst, left side (5) Major depressive disorder, recurrent episode, severe, with psychosis: Status: Acute Code(s): F33.3 - Major depressive disorder, recurrent, severe with psychotic symptoms (6) UTI (urinary tract infection): Status: Acute Code(s): N39.0 - Urinary tract infection, site not specified Plan 22 yo female with history of depression and anxiety admitted to [facility] due to rapid decompensation in context of recent covid infection. She is internally preoccupied and disorganized as well as almost mute with very few verbal utterances- whispering and mumbling. Recent history: Patient's mother, Latisha, says that prior to getting COVID September 28, patient was her regular self, without any history of psychotic or manic symptoms. Starting with COVID patient started to decompensate; about 5 days prior to the admission, patient was up all night, not sleeping at all, pacing the house and going into very is rooms in a disorganized manner; she was talking excessively and started complaining of auditory hallucinations (it was only once she got to the unit that she is expressed paranoid delusions). Mom says this is the 1st time patient has had any such manic episode. Mother says she herself has bipolar disorder, has been previously hospitalized and is stable on Depakote and Abilify. No other family history known Hx: -history of developmental delay; however no history of psychosis or manic episodes/behaviors prior to getting COVID infection this September 28 Impression: -it is possible that patient had some amount of COVID triggered encephalitis, maybe further complicated by UTI on admission. However, given mom's history of bipolar disorder combined with patient's current presentation (and absence of RDS, metabolic derangement, cardiac events-the lactic acid was elevated), it seems likely that this is a 1st manic break for patient. -at this time will treat for bipolar/psychosis Hospital course: 10/11/continue tx plan 10/12: Continue current management and treatment plan. 10/13: continue current management and treatment plan. 10/14 risperidone changed to liquid 10/15 continue tx plan; labs reordered, d/c antibiotic, encourage meals and fluids 10/16 Patient's mom currently present during interview. Patient gave clear verbal permission for communications writer to discuss case with her mother, both while patient was present and after patient left the room. -reviewed labs which are unremarkable -Prior to mom coming, Pt talking with peers, staff more freely though still often mumbling; when mom came patient became selectively mute, mumbling, started spitting into a basin. -Regarding mood patient said she is not good. When asked what she would like help with changing, she said to stop telling lies, but could not elaborate -Patient made some references that her family's trying to kill her or that her mom is trying to kill her; when communications writer asked her why she said because of the food, she was not supposed to eat it however she did... Patient could not clarify further. Patient was drinking water, saying she was thirsty. -Patient said she wanted to go home; said she was taking the medications as told, but accepted she would have to remain on the unit longer; patient decided to leave the room but not before she said that she thinks her mom is trying to get her killed. remains disorganized in speech and behavior with paranoid thinking; slept through the night; no manic symptoms -ordered Neuro consult to help r/o encephalitis 10/17 remains disorganized in speech and behavior, paranoid, guarded -discussed with Dr. Cornell who reports unlikely encephalitis (or due to Covid) and that given time elapsed since contracted Covid (sep 28), testing won't help much; recs doing pelvic ultrasound for teratoma (again unlikely) and getting EEG to see if any slowing; however, if anti-psychotics/mood stabilizers clear up symptoms, this would strongly point at an organic psychotic/manic origin. -per chart, pt does have hx of ovarian cyst Will continue w/ medication treatment; if does not clear up can begin to consider LP, MRI, anti-NDMA antibodies will get pelvic US and EEG (since non-invasive) 10/19/23 continue risperidone trial - no change as yet 10/20/23 improved more verbal ( mother not in today following her) co anxiety with elelvated hr and sometimes bp given prns clonidine, then aterax and clonazepam 10/20 pt remains w/ AH and paranoid delusion that mother wants her because she gave [food].. However, she is open to the idea that maybe she's mistaken, that her mind is playing tricks on her; also, she is more talkative and able to engage in conversation. She also showered and is drinking fluids more regularly (and eating a little better). She agrees to increase in Risperdal -mom came to visit; she thinks her daughter is about 12. -will increase risperdal (considered increasing depakote since likely bipolar, however no manic symptoms and prominent symptoms remain psychotic 10/21 little better; she feels so, she went to group and participated appropriately, talking more; however still with AH/paranoid delusions. will increase Riserpdal futrher 10/23/23 psychotic dx cont risperadol 10/23 no longer manic, but remains with intrusive AH and paranoid delusions (intermittently keeping her from eating) that have not lessened at all, despite being on Risperdal 7mg and Zyprexa (used as prn, but used frequently, up to 20mg). Likely risperdal +/- Zyprexa helped to quite some manic symptoms early on in admission (which soon fully resolved) but have not touched psychotic ones. Will dc both and start Haldol 10/24 remains with psychotic symptoms, AH, paranoid delusions... continue with Haldol titration 10/25 for the 1st time patient says AH is less bothersome; communications writer cautiously optimistic and will continue with current treatment plan 10/26 AH back to bothersome, saying mean things...continued paranoid delusions, food is poisoned and not eating meals (eating some things prepared by nurse); will increase haldol to 10mg BID to see if this med can be effective dx: -psychosis/joana -r/o delirum -intellectual disability -hx ovarian cyst Plan: CV 15 min checks Increase to Haldol 10mg BID. DC risperdal DC zyprexa prn dc'd depakote 500mg (pt refused so stopped) Hold: controldesogestrel-ethinyl estradiol [Apri] 0.15-0.03 mg tablet Hold: Auvelity 45-105 mg tablet,IR,delayed rel,biphasic (dextromethorphan bupropion) Other history: -Patient has had an IEP since she was in grade school, often in a therapeutic class environment; 1 on 1 help with all school work; mother says some developmental delay. -She does not think her daughter would be capable of obtaining or keeping a job. -Patient has had 1 friend from school throughout the past years, though the friendship recently ended; she has a lot of online friends. Patient also currently has a boyfriend that she met online but who visits. -Patient has history of intermittent refusal to drink fluids and maybe once every 6 months would end up coming to the hospital ED for dehydration. This was more common when she was in grade school and has only been a few times in the past year -med trials: Low-dose Zyprexa, Abilify; Beatrizaylar, never ended up vortioxetine Patient educated on: diagnosis and medication risk/benefits Informed Consent: understands, does not understand and further education needed Reason for continued inpatient stay Substantial Risk for: inability to function Time Spent With Patient Time: Total time managing care of this patient today ____ minutes.
[2023-10-27] MEDS: hydrOXYzine HCL 25 MG TABLET PO (12:12)
[2023-10-27] MEDS: Haloperidol Lactate Oral Conc 10 MG/5 ML ORAL.CONC 2 MG PO (14:25)
[2023-10-27 16:42] VITALS: BP 116/71; PULSE 120; RESP 16; TEMP 36.3; O2SAT 99
[2023-10-27] MEDS: Famotidine 20 MG TABLET PO (19:52)
[2023-10-27] MEDS: Haloperidol Lactate Oral Conc 10 MG/5 ML ORAL.CONC PO (19:53)
[2023-10-28] MEDS: traZODone HCL 50 MG TABLET PO (01:59)
[2023-10-28] MEDS: hydrOXYzine HCL 25 MG TABLET PO (01:59)
[2023-10-28] MEDS: Haloperidol Lactate Oral Conc 10 MG/5 ML ORAL.CONC 2 MG PO (01:59)
[2023-10-28] MEDS: cloNIDine HCL 0.1 MG TABLET 0.05 MG PO (08:04)
[2023-10-28] MEDS: Haloperidol Lactate Oral Conc 10 MG/5 ML ORAL.CONC PO (08:04)
[2023-10-28 08:10] VITALS: BP 125/74; PULSE 81; RESP 16; TEMP 35.9; O2SAT 100
--- NOTE | 2023-10-28 09:22 | P.PNPSI_ITS ---
Subjective Subjective Date of Service: 10/28/23 Reason For Visit: Depresssion Interim History: met with patient; discussed with team Patient did not sleep last night, more disorganized today, talking less. Patient said she has not good and AH remains. A little later on patient not talking but sticking her tongue out. She has not been able to really explain much and it is unclear if this is a dystonic reaction however she did take Benadryl; either dystonia resolved or was never there in the 1st place but no longer sticking out her tongue. Mother present and discussing medication management. Diagnostics Vital Signs (24Hr): Vital Signs - 24 hr 10/27/23 09:30 10/27/23 16:42 10/28/23 08:10 Temperature 97 F 97.3 F 96.7 F L Pulse Rate 60 120 H 81 Respiratory Rate 16 16 Blood Pressure 105/60 116/71 125/74 Pulse Oximetry 96 99 100 Oxygen Delivery Method Room Air Room Air Room Air BMI result Body Mass Index 23.3 Labs 10/16/23 08:46 10/16/23 08:46 Imaging Radiology Impressions: ITS Impressions Head CT 10/08/23 21:15 IMPRESSION: Unremarkable CT scan of the head. No evidence of acute territorial infarct or hemorrhage. Pelvis Ultrasound 10/19/23 08:16 IMPRESSION: Very limited examination. Further evaluation with MRI of the pelvis as clinically warranted. There is a 4.3 cm simple appearing cyst in the left ovary that is almost certainly benign in a patient of this age and for which no imaging follow-up is recommended in an asymptomatic patient. If an acute ovarian pathology such as torsion is clinically suspected, further evaluation with MRI pelvis is recommended. Medications Medications Current Medications Acetaminophen (Acetaminophen 325 Mg Tablet) 650 mg PO Q6H PRN PRN Reason: Headache/Pain Mild Scale (1-3) Last Admin: 10/26/23 10:59 Dose: 650 mg Al Hydroxide/Mg Hydroxide (Magnesium Hydrox/Alum Hydrox 30 Ml Oral.Susp) 30 ml PO Q6H PRN PRN Reason: Heartburn/Nausea Last Admin: 10/27/23 10:10 Dose: 30 ml Calcium Carbonate (Calcium Carbonate 750 Mg Tab.Chew) 750 mg PO Q4H PRN PRN Reason: Heartburn Last Admin: 10/27/23 10:11 Dose: 750 mg Clonidine HCl (Clonidine Hcl 0.1 Mg Tablet) 0.05 mg PO BID [facility]; Protocol Last Admin: 10/28/23 08:04 Dose: 0.05 mg Famotidine (Famotidine 20 Mg Tablet) 20 mg PO BEDTIME [facility] Last Admin: 10/27/23 19:52 Dose: 20 mg Haloperidol Lactate (Haloperidol Lactate Oral Conc 10 Mg/5 Ml Oral.Conc) 10 mg PO BID [facility] Last Admin: 10/28/23 08:04 Dose: 10 mg Haloperidol Lactate (Haloperidol Lactate Oral Conc 10 Mg/5 Ml Oral.Conc) 2 mg PO QID PRN PRN Reason: anxiety/psychosis Last Admin: 10/28/23 01:59 Dose: 2 mg Hydroxyzine HCl (Hydroxyzine Hcl 25 Mg Tablet) 25 mg PO Q6H PRN PRN Reason: Anxiety Last Admin: 10/28/23 01:59 Dose: 25 mg Magnesium Hydroxide (Milk Of Magnesia 30 Ml Oral.Susp) 30 ml PO DAILY PRN PRN Reason: Constipation Last Admin: 10/23/23 18:04 Dose: 30 ml Omeprazole (Omeprazole 20 Mg Capsule.Dr) 20 mg PO DAILY@0630 [facility] Last Admin: 10/28/23 05:32 Dose: Not Given Trazodone HCl (Trazodone Hcl 50 Mg Tablet) 50 mg PO BEDTIME MRX1 PRN PRN Reason: Insomnia Last Admin: 10/28/23 01:59 Dose: 50 mg Allergies Allergies Allergy/AdvReac Type Severity Reaction Status Date / Time metoprolol AdvReac Diarrhea Verified 10/07/23 23:43 Assessment & Plan Assessment & Plan (1) Psychosis: Status: Acute Code(s): F29 - Unspecified psychosis not due to a substance or known physiological condition (2) Delirium: Status: Suspected Code(s): R41.0 - Disorientation, unspecified (3) Intellectual disability: Status: Acute Code(s): F79 - Unspecified intellectual disabilities (4) Left ovarian cyst: Status: Acute Code(s): N83.202 - Unspecified ovarian cyst, left side (5) Major depressive disorder, recurrent episode, severe, with psychosis: Status: Acute Code(s): F33.3 - Major depressive disorder, recurrent, severe with psychotic symptoms (6) UTI (urinary tract infection): Status: Acute Code(s): N39.0 - Urinary tract infection, site not specified Plan 22 yo female with history of depression and anxiety admitted to [facility] due to rapid decompensation in context of recent covid infection. She is internally preoccupied and disorganized as well as almost mute with very few verbal utterances- whispering and mumbling. Recent history: Patient's mother, Latisha, says that prior to getting COVID September 28, patient was her regular self, without any history of psychotic or manic symptoms. Starting with COVID patient started to decompensate; about 5 days prior to the admission, patient was up all night, not sleeping at all, pacing the house and going into very is rooms in a disorganized manner; she was talking excessively and started complaining of auditory hallucinations (it was only once she got to the unit that she is expressed paranoid delusions). Mom says this is the 1st time patient has had any such manic episode. Mother says she herself has bipolar disorder, has been previously hospitalized and is stable on Depakote and Abilify. No other family history known Hx: -history of developmental delay; however no history of psychosis or manic episodes/behaviors prior to getting COVID infection this September 28 Impression: -it is possible that patient had some amount of COVID triggered encephalitis, maybe further complicated by UTI on admission. However, given mom's history of bipolar disorder combined with patient's current presentation (and absence of RDS, metabolic derangement, cardiac events-the lactic acid was elevated), it seems likely that this is a 1st manic break for patient. -at this time will treat for bipolar/psychosis Hospital course: 10/11/continue tx plan 10/12: Continue current management and treatment plan. 10/13: continue current management and treatment plan. 10/14 risperidone changed to liquid 10/15 continue tx plan; labs reordered, d/c antibiotic, encourage meals and fluids 10/16 Patient's mom currently present during interview. Patient gave clear verbal permission for automobile and property underwriter to discuss case with her mother, both while patient was present and after patient left the room. -reviewed labs which are unremarkable -Prior to mom coming, Pt talking with peers, staff more freely though still often mumbling; when mom came patient became selectively mute, mumbling, started spitting into a basin. -Regarding mood patient said she is not good. When asked what she would like help with changing, she said to stop telling lies, but could not elaborate -Patient made some references that her family's trying to kill her or that her mom is trying to kill her; when automobile and property underwriter asked her why she said because of the food, she was not supposed to eat it however she did... Patient could not clarify further. Patient was drinking water, saying she was thirsty. -Patient said she wanted to go home; said she was taking the medications as told, but accepted she would have to remain on the unit longer; patient decided to leave the room but not before she said that she thinks her mom is trying to get her killed. remains disorganized in speech and behavior with paranoid thinking; slept through the night; no manic symptoms -ordered Neuro consult to help r/o encephalitis 10/17 remains disorganized in speech and behavior, paranoid, guarded -discussed with Dr. Cornell who reports unlikely encephalitis (or due to Covid) and that given time elapsed since contracted Covid (sep 28), testing won't help much; recs doing pelvic ultrasound for teratoma (again unlikely) and getting EEG to see if any slowing; however, if anti-psychotics/mood stabilizers clear up symptoms, this would strongly point at an organic psychotic/manic origin. -per chart, pt does have hx of ovarian cyst Will continue w/ medication treatment; if does not clear up can begin to consider LP, MRI, anti-NDMA antibodies will get pelvic US and EEG (since non-invasive) 10/19/23 continue risperidone trial - no change as yet 10/20/23 improved more verbal ( mother not in today following her) co anxiety with elelvated hr and sometimes bp given prns clonidine, then aterax and clonazepam 10/20 pt remains w/ AH and paranoid delusion that mother wants her because she gave [food].. However, she is open to the idea that maybe she's mistaken, that her mind is playing tricks on her; also, she is more talkative and able to engage in conversation. She also showered and is drinking fluids more regularly (and eating a little better). She agrees to increase in Risperdal -mom came to visit; she thinks her daughter is about 5/10. -will increase risperdal (considered increasing depakote since likely bipolar, however no manic symptoms and prominent symptoms remain psychotic 10/21 little better; she feels so, she went to group and participated appropriately, talking more; however still with AH/paranoid delusions. will increase Riserpdal futrher 10/23/23 psychotic dx cont risperadol 10/23 no longer manic, but remains with intrusive AH and paranoid delusions (intermittently keeping her from eating) that have not lessened at all, despite being on Risperdal 7mg and Zyprexa (used as prn, but used frequently, up to 20mg). Likely risperdal +/- Zyprexa helped to quite some manic symptoms early on in admission (which soon fully resolved) but have not touched psychotic ones. Will dc both and start Haldol 10/24 remains with psychotic symptoms, AH, paranoid delusions... continue with Haldol titration 10/25 for the 1st time patient says AH is less bothersome; automobile and property underwriter cautiously optimistic and will continue with current treatment plan 10/26 AH back to bothersome, saying mean things...continued paranoid delusions, food is poisoned and not eating meals (eating some things prepared by nurse); will increase haldol to 10mg BID to see if this med can be effective 10/27 Patient did not sleep last night, more disorganized today, talking less. Patient said she has not good and AH remains. A little later on patient not talking but sticking her tongue out. Given Benadryl; protruding tongue ceased but it has not clear if this was dystonia or just bizarre behavior as patient really does not talk about it much. Will DC Haldol Will start Depakote; patient not sleeping and though not clearly manic disorganized; also mother is stabilized on Depakote Will also start Ativan 2 mg and likely schedule throughout the day as patient may have a touch of catatonia dx: -psychosis/joana -r/o delirum -intellectual disability -hx ovarian cyst Plan: CV 15 min checks Start Ativan 2 mg t.i.d. to see if patient has a touch of catatonia Start Depakote Sprinkles 500 mg now dose and 500 mg q.h.s. DC Haldol; not working, possibly causing dystonia. DC risperdal DC zyprexa prn dc'd depakote 500mg (pt refused so stopped) Hold: controldesogestrel-ethinyl estradiol [Apri] 0.15-0.03 mg tablet Hold: Auvelity 45-105 mg tablet,IR,delayed rel,biphasic (dextromethorphan bupropion) Other history: -Patient has had an IEP since she was in grade school, often in a therapeutic class environment; 1 on 1 help with all school work; mother says some developmental delay. -She does not think her daughter would be capable of obtaining or keeping a job. -Patient has had 1 friend from school throughout the past years, though the friendship recently ended; she has a lot of online friends. Patient also currently has a boyfriend that she met online but who visits. -Patient has history of intermittent refusal to drink fluids and maybe once every 6 months would end up coming to the hospital ED for dehydration. This was more common when she was in grade school and has only been a few times in the past year -med trials: Low-dose Zyprexa, Chau; Aamir, never ended up vortioxetine Patient educated on: diagnosis and medication risk/benefits Informed Consent: does not understand Reason for continued inpatient stay Substantial Risk for: inability to function Time Spent With Patient Time: Total time managing care of this patient today ____ minutes.
[2023-10-28] MEDS: Divalproex Sodium Sprinkles 125 MG CAP.DR.SPR 500 MG PO ×2 (11:39→20:59)
[2023-10-28] MEDS: LORazepam 1 MG TABLET 2 MG PO ×3 (11:39→20:59)
[2023-10-28] MEDS: diphenhydrAMINE HCl 12.5 MG/5 ML LIQUID 50 MG PO (11:40)
[2023-10-28 18:00] VITALS: BP 92/56; PULSE 82; RESP 16; TEMP 36.1; O2SAT 100
--- NOTE | 2023-10-28 18:45 | PC.NURSE ---
Preeti has been sleeping since late morning after mom left. This nurse woke her to give her noon medications, she fell back asleep after getting out of bed to void. She did not eat lunch. This nurse woke her for 1500 medications she remained sleepy. When supper arrived, she remains sleepy, this nurse woke her, fed her an ice cream cup and 8ounce of bottled water. She fell asleep again. Plan of care is ongoing.
[2023-10-28] MEDS: Famotidine 20 MG TABLET PO (20:58)
[2023-10-29] MEDS: Omeprazole 20 MG CAPSULE.DR PO (05:38)
[2023-10-29 07:53] VITALS: BP 115/68; PULSE 81; RESP 16; TEMP 36.1; O2SAT 98
[2023-10-29] MEDS: cloNIDine HCL 0.1 MG TABLET 0.05 MG PO ×2 (09:17→21:26)
[2023-10-29] MEDS: LORazepam 1 MG TABLET 2 MG PO (09:17)
--- NOTE | 2023-10-29 09:23 | P.PNPSI_ITS ---
Subjective Subjective Date of Service: 10/29/23 Reason For Visit: Depresssion Interim History: met with patient; discussed with team very tired from ativan; unlilkely catatonia but will keep in mind pt showered with prompting; asked technical report writer when she would go home but otherwise, not talking much will dc depakote; do med wash and then reassess med management approach Mental Status Exam Mental Status Exam Narrative: Pt is alert and oriented; behavior is disorganized; patient is not in distress; dressed in casual attire with unkempt hair but adequate hygiene (showered); mood is described as not good and affect congruent, blunted; eye contact improved; Speech is impoverished; psychomotor retardation present combined with med side- effect; thought process is distracted; Thought content is on delusional, paranoid worries; denies any SI/HI. AH remains; Patients insight and judgment impaired. Diagnostics Vital Signs (24Hr): Vital Signs - 24 hr 10/28/23 18:00 10/29/23 07:53 Temperature 97 F 96.9 F Pulse Rate 82 81 Respiratory Rate 16 16 Blood Pressure 92/56 L 115/68 Pulse Oximetry 100 98 Oxygen Delivery Method Room Air Room Air BMI result Body Mass Index 23.3 Labs 10/16/23 08:46 10/16/23 08:46 Imaging Radiology Impressions: ITS Impressions Head CT 10/08/23 21:15 IMPRESSION: Unremarkable CT scan of the head. No evidence of acute territorial infarct or hemorrhage. Pelvis Ultrasound 10/19/23 08:16 IMPRESSION: Very limited examination. Further evaluation with MRI of the pelvis as clinically warranted. There is a 4.3 cm simple appearing cyst in the left ovary that is almost certainly benign in a patient of this age and for which no imaging follow-up is recommended in an asymptomatic patient. If an acute ovarian pathology such as torsion is clinically suspected, further evaluation with MRI pelvis is recommended. Medications Medications Current Medications Acetaminophen (Acetaminophen 325 Mg Tablet) 650 mg PO Q6H PRN PRN Reason: Headache/Pain Mild Scale (1-3) Last Admin: 10/26/23 10:59 Dose: 650 mg Al Hydroxide/Mg Hydroxide (Magnesium Hydrox/Alum Hydrox 30 Ml Oral.Susp) 30 ml PO Q6H PRN PRN Reason: Heartburn/Nausea Last Admin: 10/27/23 10:10 Dose: 30 ml Calcium Carbonate (Calcium Carbonate 750 Mg Tab.Chew) 750 mg PO Q4H PRN PRN Reason: Heartburn Last Admin: 10/27/23 10:11 Dose: 750 mg Clonidine HCl (Clonidine Hcl 0.1 Mg Tablet) 0.05 mg PO BID [facility]; Protocol Last Admin: 10/29/23 09:17 Dose: 0.05 mg Divalproex Sodium (Divalproex Sodium Sprinkles 125 Mg Cap.Spr) 500 mg PO BEDTIME KRISTI Last Admin: 10/28/23 20:59 Dose: 500 mg Famotidine (Famotidine 20 Mg Tablet) 20 mg PO BEDTIME KRISTI Last Admin: 10/28/23 20:58 Dose: 20 mg Hydroxyzine HCl (Hydroxyzine Hcl 25 Mg Tablet) 25 mg PO Q6H PRN PRN Reason: Anxiety Last Admin: 10/28/23 01:59 Dose: 25 mg Lorazepam (Lorazepam 1 Mg Tablet) 1 mg PO TID KRISTI Magnesium Hydroxide (Milk Of Magnesia 30 Ml Oral.Susp) 30 ml PO DAILY PRN PRN Reason: Constipation Last Admin: 10/23/23 18:04 Dose: 30 ml Omeprazole (Omeprazole 20 Mg Capsule.Dr) 20 mg PO DAILY@0630 KRISTI Last Admin: 10/29/23 05:38 Dose: 20 mg Trazodone HCl (Trazodone Hcl 50 Mg Tablet) 50 mg PO BEDTIME MRX1 PRN PRN Reason: Insomnia Last Admin: 10/28/23 01:59 Dose: 50 mg Allergies Allergies Allergy/AdvReac Type Severity Reaction Status Date / Time metoprolol AdvReac Diarrhea Verified 10/07/23 23:43 Assessment & Plan Assessment & Plan (1) Psychosis: Status: Acute Code(s): F29 - Unspecified psychosis not due to a substance or known physiological condition (2) Delirium: Status: Suspected Code(s): R41.0 - Disorientation, unspecified (3) Intellectual disability: Status: Acute Code(s): F79 - Unspecified intellectual disabilities (4) Left ovarian cyst: Status: Acute Code(s): N83.202 - Unspecified ovarian cyst, left side (5) Major depressive disorder, recurrent episode, severe, with psychosis: Status: Acute Code(s): F33.3 - Major depressive disorder, recurrent, severe with psychotic symptoms (6) UTI (urinary tract infection): Status: Acute Code(s): N39.0 - Urinary tract infection, site not specified Plan 22 yo female with history of depression and anxiety admitted to [facility] due to rapid decompensation in context of recent covid infection. She is internally preoccupied and disorganized as well as almost mute with very few verbal utterances- whispering and mumbling. Recent history: Patient's mother, Latisha, says that prior to getting COVID September 28, patient was her regular self, without any history of psychotic or manic symptoms. Starting with COVID patient started to decompensate; about 5 days prior to the admission, patient was up all night, not sleeping at all, pacing the house and going into very is rooms in a disorganized manner; she was talking excessively and started complaining of auditory hallucinations (it was only once she got to the unit that she is expressed paranoid delusions). Mom says this is the 1st time patient has had any such manic episode. Mother says she herself has bipolar disorder, has been previously hospitalized and is stable on Depakote and Abilify. No other family history known Hx: -history of developmental delay; however no history of psychosis or manic episodes/behaviors prior to getting COVID infection this September 28 Impression: -it is possible that patient had some amount of COVID triggered encephalitis, maybe further complicated by UTI on admission. However, given mom's history of bipolar disorder combined with patient's current presentation (and absence of RDS, metabolic derangement, cardiac events-the lactic acid was elevated), it seems likely that this is a 1st manic break for patient. -at this time will treat for bipolar/psychosis Hospital course: 10/11/continue tx plan 10/12: Continue current management and treatment plan. 10/13: continue current management and treatment plan. 10/14 risperidone changed to liquid 10/15 continue tx plan; labs reordered, d/c antibiotic, encourage meals and fluids 10/16 Patient's mom currently present during interview. Patient gave clear verbal permission for technical report writer to discuss case with her mother, both while patient was present and after patient left the room. -reviewed labs which are unremarkable -Prior to mom coming, Pt talking with peers, staff more freely though still often mumbling; when mom came patient became selectively mute, mumbling, started spitting into a basin. -Regarding mood patient said she is not good. When asked what she would like help with changing, she said to stop telling lies, but could not elaborate -Patient made some references that her family's trying to kill her or that her mom is trying to kill her; when technical report writer asked her why she said because of the food, she was not supposed to eat it however she did... Patient could not clarify further. Patient was drinking water, saying she was thirsty. -Patient said she wanted to go home; said she was taking the medications as told, but accepted she would have to remain on the unit longer; patient decided to leave the room but not before she said that she thinks her mom is trying to get her killed. remains disorganized in speech and behavior with paranoid thinking; slept through the night; no manic symptoms -ordered Neuro consult to help r/o encephalitis 10/17 remains disorganized in speech and behavior, paranoid, guarded -discussed with Dr. Cornell who reports unlikely encephalitis (or due to Covid) and that given time elapsed since contracted Covid (sep 28), testing won't help much; recs doing pelvic ultrasound for teratoma (again unlikely) and getting EEG to see if any slowing; however, if anti-psychotics/mood stabilizers clear up symptoms, this would strongly point at an organic psychotic/manic origin. -per chart, pt does have hx of ovarian cyst Will continue w/ medication treatment; if does not clear up can begin to consider LP, MRI, anti-NDMA antibodies will get pelvic US and EEG (since non-invasive) 10/19/23 continue risperidone trial - no change as yet 10/20/23 improved more verbal ( mother not in today following her) co anxiety with elelvated hr and sometimes bp given prns clonidine, then aterax and clonazepam 10/20 pt remains w/ AH and paranoid delusion that mother wants her because she gave [food].. However, she is open to the idea that maybe she's mistaken, that her mind is playing tricks on her; also, she is more talkative and able to engage in conversation. She also showered and is drinking fluids more regularly (and eating a little better). She agrees to increase in Risperdal -mom came to visit; she thinks her daughter is about 12/26. -will increase risperdal (considered increasing depakote since likely bipolar, however no manic symptoms and prominent symptoms remain psychotic 10/21 little better; she feels so, she went to group and participated appropriately, talking more; however still with AH/paranoid delusions. will increase Riserpdal futrher 10/23/23 psychotic dx cont risperadol 10/23 no longer manic, but remains with intrusive AH and paranoid delusions (intermittently keeping her from eating) that have not lessened at all, despite being on Risperdal 7mg and Zyprexa (used as prn, but used frequently, up to 20mg). Likely risperdal +/- Zyprexa helped to quite some manic symptoms early on in admission (which soon fully resolved) but have not touched psychotic ones. Will dc both and start Haldol 10/24 remains with psychotic symptoms, AH, paranoid delusions... continue with Haldol titration 10/25 for the 1st time patient says AH is less bothersome; technical report writer cautiously optimistic and will continue with current treatment plan 10/26 AH back to bothersome, saying mean things...continued paranoid delusions, food is poisoned and not eating meals (eating some things prepared by nurse); will increase haldol to 10mg BID to see if this med can be effective 10/27 Patient did not sleep last night, more disorganized today, talking less. Patient said she has not good and AH remains. A little later on patient not talking but sticking her tongue out. Given Benadryl; protruding tongue ceased but it has not clear if this was dystonia or just bizarre behavior as patient really does not talk about it much. Will DC Haldol Will start Depakote; patient not sleeping and though not clearly manic disorganized; also mother is stabilized on Depakote Will also start Ativan 2 mg and likely schedule throughout the day as patient may have a touch of catatonia 10/28 psychotic delirium combined with med side-effect very tired from ativan; unlilkely catatonia but will keep in mind pt showered with prompting; asked technical report writer when she would go home but otherwise, not talking much will dc depakote; do med wash and then reassess med management approach dx: -psychosis/joana -delirum -intellectual disability -hx ovarian cyst Plan: CV 15 min checks DC Ativan; has not helped, causing much drowsiness, making catatonia unlikely DC Depakote; will do med wash DC Haldol; not working, possibly causing dystonia. DC risperdal DC zyprexa prn dc'd depakote 500mg (pt refused so stopped) Hold: controldesogestrel-ethinyl estradiol [Apri] 0.15-0.03 mg tablet Hold: Auvelity 45-105 mg tablet,IR,delayed rel,biphasic (dextromethorphan bupropion) Other history: -Patient has had an IEP since she was in grade school, often in a therapeutic class environment; 1 on 1 help with all school work; mother says some developmental delay. -She does not think her daughter would be capable of obtaining or keeping a job. -Patient has had 1 friend from school throughout the past years, though the friendship recently ended; she has a lot of online friends. Patient also currently has a boyfriend that she met online but who visits. -Patient has history of intermittent refusal to drink fluids and maybe once every 6 months would end up coming to the hospital ED for dehydration. This was more common when she was in grade school and has only been a few times in the past year -med trials: Low-dose Zyprexa, Abilify; Vraylar, never ended up vortioxetine Patient educated on: diagnosis and medication risk/benefits Informed Consent: understands, does not understand and further education needed Reason for continued inpatient stay Substantial Risk for: inability to function Time Spent With Patient Time: Total time managing care of this patient today ____ minutes.
[2023-10-29 11:00] VITALS: BP 96/53; PULSE 82; RESP 14; O2SAT 100
[2023-10-29 14:08] VITALS: BP 96/57; PULSE 92; RESP 14; O2SAT 97
[2023-10-29 17:47] VITALS: BP 108/73; PULSE 92; RESP 16; TEMP 35.9; O2SAT 98
[2023-10-29] MEDS: Famotidine 20 MG TABLET PO (21:27)
[2023-10-30] MEDS: Omeprazole 20 MG CAPSULE.DR PO (05:46)
[2023-10-30 07:45] VITALS: BP 121/63; PULSE 74; RESP 18; TEMP 36.1; O2SAT 100
[2023-10-30] MEDS: cloNIDine HCL 0.1 MG TABLET 0.05 MG PO ×2 (08:17→19:26)
--- NOTE | 2023-10-30 09:37 | HO.PSYCHPN ---
Subjective Subjective Date of Service: 10/30/23 Reason For Visit: Depresssion Interim History: met with patient; discussed with team Overall still disorganized, mostly aimless as she walks around, little communication; still a little disorganized than a couple days ago. On inquiry she says she has not good and wants to go; quality analyst/technical writer discussed medication plan with patient; otherwise little communication. Continues to have auditory hallucinations and paranoid delusions Mental Status Exam Mental Status Exam Narrative: Pt is alert and oriented; behavior is disorganized; patient is not in distress; dressed in casual attire with unkempt hair but adequate hygiene; mood is described as not good and affect congruent, blunted; eye contact improved; Speech is impoverished; psychomotor retardation present combined with med side-effect; thought process is distracted; Thought content is on delusional, paranoid worries; denies any SI/HI. AH remains; Patients insight and judgment impaired. Diagnostics Vital Signs (24Hr): Vital Signs - 24 hr 10/29/23 11:00 10/29/23 14:08 10/29/23 17:47 Temperature 96.6 F L Pulse Rate 82 92 92 Respiratory Rate 14 14 16 Blood Pressure 96/53 L 96/57 L 108/73 Pulse Oximetry 100 97 98 Oxygen Delivery Method Room Air Room Air Room Air 10/30/23 07:45 Temperature 97.0 F Pulse Rate 74 Respiratory Rate 18 Blood Pressure 121/63 Pulse Oximetry 100 Oxygen Delivery Method Room Air BMI result Body Mass Index 23.3 Labs 10/16/23 08:46 10/16/23 08:46 Imaging Radiology Impressions: ITS Impressions Head CT 10/08/23 21:15 IMPRESSION: Unremarkable CT scan of the head. No evidence of acute territorial infarct or hemorrhage. Pelvis Ultrasound 10/19/23 08:16 IMPRESSION: Very limited examination. Further evaluation with MRI of the pelvis as clinically warranted. There is a 4.3 cm simple appearing cyst in the left ovary that is almost certainly benign in a patient of this age and for which no imaging follow-up is recommended in an asymptomatic patient. If an acute ovarian pathology such as torsion is clinically suspected, further evaluation with MRI pelvis is recommended. Medications Medications Current Medications Acetaminophen (Acetaminophen 325 Mg Tablet) 650 mg PO Q6H PRN PRN Reason: Headache/Pain Mild Scale (1-3) Last Admin: 10/26/23 10:59 Dose: 650 mg Al Hydroxide/Mg Hydroxide (Magnesium Hydrox/Alum Hydrox 30 Ml Oral.Susp) 30 ml PO Q6H PRN PRN Reason: Heartburn/Nausea Last Admin: 10/27/23 10:10 Dose: 30 ml Calcium Carbonate (Calcium Carbonate 750 Mg Tab.Chew) 750 mg PO Q4H PRN PRN Reason: Heartburn Last Admin: 10/27/23 10:11 Dose: 750 mg Clonidine HCl (Clonidine Hcl 0.1 Mg Tablet) 0.05 mg PO BID KRISTI; Protocol Last Admin: 10/30/23 08:17 Dose: 0.05 mg Famotidine (Famotidine 20 Mg Tablet) 20 mg PO BEDTIME KRISTI Last Admin: 10/29/23 21:27 Dose: 20 mg Hydroxyzine HCl (Hydroxyzine Hcl 25 Mg Tablet) 25 mg PO Q6H PRN PRN Reason: Anxiety Last Admin: 10/28/23 01:59 Dose: 25 mg Magnesium Hydroxide (Milk Of Magnesia 30 Ml Oral.Susp) 30 ml PO DAILY PRN PRN Reason: Constipation Last Admin: 10/23/23 18:04 Dose: 30 ml Omeprazole (Omeprazole 20 Mg Capsule.Dr) 20 mg PO DAILY@0630 KRISTI Last Admin: 10/30/23 05:46 Dose: 20 mg Trazodone HCl (Trazodone Hcl 50 Mg Tablet) 50 mg PO BEDTIME MRX1 PRN PRN Reason: Insomnia Last Admin: 10/28/23 01:59 Dose: 50 mg Allergies Allergies Allergy/AdvReac Type Severity Reaction Status Date / Time metoprolol AdvReac Diarrhea Verified 10/07/23 23:43 Assessment & Plan Assessment & Plan (1) Psychosis: Status: Acute Code(s): F29 - Unspecified psychosis not due to a substance or known physiological condition (2) Delirium: Status: Suspected Code(s): R41.0 - Disorientation, unspecified (3) Intellectual disability: Status: Acute Code(s): F79 - Unspecified intellectual disabilities (4) Left ovarian cyst: Status: Acute Code(s): N83.202 - Unspecified ovarian cyst, left side (5) Major depressive disorder, recurrent episode, severe, with psychosis: Status: Acute Code(s): F33.3 - Major depressive disorder, recurrent, severe with psychotic symptoms (6) UTI (urinary tract infection): Status: Acute Code(s): N39.0 - Urinary tract infection, site not specified Plan 22 yo female with history of depression and anxiety admitted to [facility] due to rapid decompensation in context of recent covid infection. She is internally preoccupied and disorganized as well as almost mute with very few verbal utterances- whispering and mumbling. Recent history: Patient's mother, Latisha, says that prior to getting COVID September 28, patient was her regular self, without any history of psychotic or manic symptoms. Starting with COVID patient started to decompensate; about 5 days prior to the admission, patient was up all night, not sleeping at all, pacing the house and going into very is rooms in a disorganized manner; she was talking excessively and started complaining of auditory hallucinations (it was only once she got to the unit that she is expressed paranoid delusions). Mom says this is the 1st time patient has had any such manic episode. Mother says she herself has bipolar disorder, has been previously hospitalized and is stable on Depakote and Abilify. No other family history known Hx: -history of developmental delay; however no history of psychosis or manic episodes/behaviors prior to getting COVID infection this September 28 Impression: -it is possible that patient had some amount of COVID triggered encephalitis, maybe further complicated by UTI on admission. However, given mom's history of bipolar disorder combined with patient's current presentation (and absence of RDS, metabolic derangement, cardiac events-the lactic acid was elevated), it seems likely that this is a 1st manic break for patient. -at this time will treat for bipolar/psychosis Hospital course: 10/11/continue tx plan 10/12: Continue current management and treatment plan. 10/13: continue current management and treatment plan. 10/14 risperidone changed to liquid 10/15 continue tx plan; labs reordered, d/c antibiotic, encourage meals and fluids 10/16 Patient's mom currently present during interview. Patient gave clear verbal permission for quality analyst/technical writer to discuss case with her mother, both while patient was present and after patient left the room. -reviewed labs which are unremarkable -Prior to mom coming, Pt talking with peers, staff more freely though still often mumbling; when mom came patient became selectively mute, mumbling, started spitting into a basin. -Regarding mood patient said she is not good. When asked what she would like help with changing, she said to stop telling lies, but could not elaborate -Patient made some references that her family's trying to kill her or that her mom is trying to kill her; when quality analyst/technical writer asked her why she said because of the food, she was not supposed to eat it however she did... Patient could not clarify further. Patient was drinking water, saying she was thirsty. -Patient said she wanted to go home; said she was taking the medications as told, but accepted she would have to remain on the unit longer; patient decided to leave the room but not before she said that she thinks her mom is trying to get her killed. remains disorganized in speech and behavior with paranoid thinking; slept through the night; no manic symptoms -ordered Neuro consult to help r/o encephalitis 10/17 remains disorganized in speech and behavior, paranoid, guarded -discussed with Dr. Cornell who reports unlikely encephalitis (or due to Covid) and that given time elapsed since contracted Covid (sep 28), testing won't help much; recs doing pelvic ultrasound for teratoma (again unlikely) and getting EEG to see if any slowing; however, if anti-psychotics/mood stabilizers clear up symptoms, this would strongly point at an organic psychotic/manic origin. -per chart, pt does have hx of ovarian cyst Will continue w/ medication treatment; if does not clear up can begin to consider LP, MRI, anti-NDMA antibodies will get pelvic US and EEG (since non-invasive) 10/19/23 continue risperidone trial - no change as yet 10/20/23 improved more verbal ( mother not in today following her) co anxiety with elelvated hr and sometimes bp given prns clonidine, then aterax and clonazepam 10/20 pt remains w/ AH and paranoid delusion that mother wants her because she gave [food].. However, she is open to the idea that maybe she's mistaken, that her mind is playing tricks on her; also, she is more talkative and able to engage in conversation. She also showered and is drinking fluids more regularly (and eating a little better). She agrees to increase in Risperdal -mom came to visit; she thinks her daughter is about 5/10. -will increase risperdal (considered increasing depakote since likely bipolar, however no manic symptoms and prominent symptoms remain psychotic 10/21 little better; she feels so, she went to group and participated appropriately, talking more; however still with AH/paranoid delusions. will increase Riserpdal futrher 10/23/23 psychotic dx cont risperadol 10/23 no longer manic, but remains with intrusive AH and paranoid delusions (intermittently keeping her from eating) that have not lessened at all, despite being on Risperdal 7mg and Zyprexa (used as prn, but used frequently, up to 20mg). Likely risperdal +/- Zyprexa helped to quite some manic symptoms early on in admission (which soon fully resolved) but have not touched psychotic ones. Will dc both and start Haldol 10/24 remains with psychotic symptoms, AH, paranoid delusions... continue with Haldol titration 10/25 for the 1st time patient says AH is less bothersome; quality analyst/technical writer cautiously optimistic and will continue with current treatment plan 10/26 AH back to bothersome, saying mean things...continued paranoid delusions, food is poisoned and not eating meals (eating some things prepared by nurse); will increase haldol to 10mg BID to see if this med can be effective 10/27 Patient did not sleep last night, more disorganized today, talking less. Patient said she has not good and AH remains. A little later on patient not talking but sticking her tongue out. Given Benadryl; protruding tongue ceased but it has not clear if this was dystonia or just bizarre behavior as patient really does not talk about it much. Will DC Haldol Will start Depakote; patient not sleeping and though not clearly manic disorganized; also mother is stabilized on Depakote Will also start Ativan 2 mg and likely schedule throughout the day as patient may have a touch of catatonia 10/28 psychotic delirium combined with med side-effect very tired from ativan; unlilkely catatonia but will keep in mind pt showered with prompting; asked quality analyst/technical writer when she would go home but otherwise, not talking much will dc depakote; do med wash and then reassess med management approach 10/29 still quite disorganized but a little better than the day before; continues to have AH, paranoid delusions. Will continue holding medications and likely start Abilify tomorrow dx: -psychosis/joana -delirum -intellectual disability -hx ovarian cyst Plan: CV 15 min checks DC Ativan; has not helped, causing much drowsiness, making catatonia unlikely DC Depakote; will do med wash DC Haldol; not working, possibly causing dystonia. DC risperdal DC zyprexa prn dc'd depakote 500mg (pt refused so stopped) Hold: controldesogestrel-ethinyl estradiol [Apri] 0.15-0.03 mg tablet Hold: Auvelity 45-105 mg tablet,IR,delayed rel,biphasic (dextromethorphan bupropion) Other history: -Patient has had an IEP since she was in grade school, often in a therapeutic class environment; 1 on 1 help with all school work; mother says some developmental delay. -She does not think her daughter would be capable of obtaining or keeping a job. -Patient has had 1 friend from school throughout the past years, though the friendship recently ended; she has a lot of online friends. Patient also currently has a boyfriend that she met online but who visits. -Patient has history of intermittent refusal to drink fluids and maybe once every 6 months would end up coming to the hospital ED for dehydration. This was more common when she was in grade school and has only been a few times in the past year -med trials: Low-dose Zyprexa, Abilify; Beatrizaylar, never ended up vortioxetine Patient educated on: diagnosis and medication risk/benefits Informed Consent: does not understand Reason for continued inpatient stay Substantial Risk for: inability to function Time Spent With Patient Time: Total time managing care of this patient today ____ minutes.
[2023-10-30 18:00] VITALS: BP 114/61; PULSE 137; RESP 17; TEMP 36.7; O2SAT 98
[2023-10-30] MEDS: traZODone HCL 50 MG TABLET PO (19:26)
[2023-10-30] MEDS: Famotidine 20 MG TABLET PO (19:26)
[2023-10-31] MEDS: Omeprazole 20 MG CAPSULE.DR PO (05:03)
[2023-10-31 07:00] VITALS: BMI 20.5
[2023-10-31 08:00] VITALS: BP 102/57; PULSE 77; RESP 16; TEMP 36.1; O2SAT 94
[2023-10-31] MEDS: cloNIDine HCL 0.1 MG TABLET 0.05 MG PO ×2 (09:20→19:27)
--- NOTE | 2023-10-31 09:42 | P.PNPSI_ITS ---
Subjective Subjective Date of Service: 10/31/23 Reason For Visit: Depresssion Interim History: met with patient; discussed with team Doing a little better today, talking a little more, saying that she is anxious. Discussed medication with her and she agrees to continue with starting Abilify. Discussed case with mom who visited on the unit and said she is definitely looking better than she was a few days ago and is about at a 5/10 with 10 being her regular self. Mom also agrees with medication plan Mental Status Exam Mental Status Exam Narrative: Pt is alert and oriented; behavior is disorganized; patient is not in distress; dressed in casual attire with unkempt hair but adequate hygiene; mood is described as anxious and affect congruent, blunted; eye contact improved; Speech is impoverished; psychomotor retardation present combined with med side- effect; thought process is distracted; Thought content is on delusional, paranoid worries; denies any SI/HI. AH remains; Patients insight and judgment impaired. Diagnostics Vital Signs (24Hr): Vital Signs - 24 hr 10/30/23 18:00 10/31/23 08:00 Temperature 98.0 F 97 F Pulse Rate 137 H 77 Respiratory Rate 17 16 Blood Pressure 114/61 102/57 L Pulse Oximetry 98 94 Oxygen Delivery Method Room Air BMI result Body Mass Index 23.3 Labs 10/16/23 08:46 10/16/23 08:46 Imaging Radiology Impressions: ITS Impressions Head CT 10/08/23 21:15 IMPRESSION: Unremarkable CT scan of the head. No evidence of acute territorial infarct or hemorrhage. Pelvis Ultrasound 10/19/23 08:16 IMPRESSION: Very limited examination. Further evaluation with MRI of the pelvis as clinically warranted. There is a 4.3 cm simple appearing cyst in the left ovary that is almost certainly benign in a patient of this age and for which no imaging follow-up is recommended in an asymptomatic patient. If an acute ovarian pathology such as torsion is clinically suspected, further evaluation with MRI pelvis is recommended. Medications Medications Current Medications Acetaminophen (Acetaminophen 325 Mg Tablet) 650 mg PO Q6H PRN PRN Reason: Headache/Pain Mild Scale (1-3) Last Admin: 10/26/23 10:59 Dose: 650 mg Al Hydroxide/Mg Hydroxide (Magnesium Hydrox/Alum Hydrox 30 Ml Oral.Susp) 30 ml PO Q6H PRN PRN Reason: Heartburn/Nausea Last Admin: 10/27/23 10:10 Dose: 30 ml Calcium Carbonate (Calcium Carbonate 750 Mg Tab.Chew) 750 mg PO Q4H PRN PRN Reason: Heartburn Last Admin: 10/27/23 10:11 Dose: 750 mg Clonidine HCl (Clonidine Hcl 0.1 Mg Tablet) 0.05 mg PO BID KRISTI; Protocol Last Admin: 10/31/23 09:20 Dose: 0.05 mg Famotidine (Famotidine 20 Mg Tablet) 20 mg PO BEDTIME KRISTI Last Admin: 10/30/23 19:26 Dose: 20 mg Hydroxyzine HCl (Hydroxyzine Hcl 25 Mg Tablet) 25 mg PO Q6H PRN PRN Reason: Anxiety Last Admin: 10/28/23 01:59 Dose: 25 mg Magnesium Hydroxide (Milk Of Magnesia 30 Ml Oral.Susp) 30 ml PO DAILY PRN PRN Reason: Constipation Last Admin: 10/23/23 18:04 Dose: 30 ml Omeprazole (Omeprazole 20 Mg Capsule.Dr) 20 mg PO DAILY@0630 KRISTI Last Admin: 10/31/23 05:03 Dose: 20 mg Trazodone HCl (Trazodone Hcl 50 Mg Tablet) 50 mg PO BEDTIME MRX1 PRN PRN Reason: Insomnia Last Admin: 10/30/23 19:26 Dose: 50 mg Allergies Allergies Allergy/AdvReac Type Severity Reaction Status Date / Time metoprolol AdvReac Diarrhea Verified 10/07/23 23:43 Assessment & Plan Assessment & Plan (1) Psychosis: Status: Acute Code(s): F29 - Unspecified psychosis not due to a substance or known physiological condition (2) Delirium: Status: Suspected Code(s): R41.0 - Disorientation, unspecified (3) Intellectual disability: Status: Acute Code(s): F79 - Unspecified intellectual disabilities (4) Left ovarian cyst: Status: Acute Code(s): N83.202 - Unspecified ovarian cyst, left side (5) Major depressive disorder, recurrent episode, severe, with psychosis: Status: Acute Code(s): F33.3 - Major depressive disorder, recurrent, severe with psychotic symptoms (6) UTI (urinary tract infection): Status: Acute Code(s): N39.0 - Urinary tract infection, site not specified Plan 22 yo female with history of depression and anxiety admitted to due to rapid decompensation in context of recent covid infection. She is internally preoccupied and disorganized as well as almost mute with very few verbal utterances- whispering and mumbling. Recent history: Patient's mother, Latisha, says that prior to getting COVID September 28, patient was her regular self, without any history of psychotic or manic symptoms. Starting with COVID patient started to decompensate; about 5 days prior to the admission, patient was up all night, not sleeping at all, pacing the house and going into very is rooms in a disorganized manner; she was talking excessively and started complaining of auditory hallucinations (it was only once she got to the unit that she is expressed paranoid delusions). Mom says this is the 1st time patient has had any such manic episode. Mother says she herself has bipolar disorder, has been previously hospitalized and is stable on Depakote and Abilify. No other family history known Hx: -history of developmental delay; however no history of psychosis or manic episodes/behaviors prior to getting COVID infection this September 28 Impression: -it is possible that patient had some amount of COVID triggered encephalitis, maybe further complicated by UTI on admission. However, given mom's history of bipolar disorder combined with patient's current presentation (and absence of RDS, metabolic derangement, cardiac events-the lactic acid was elevated), it seems likely that this is a 1st manic break for patient. -at this time will treat for bipolar/psychosis Hospital course: 10/11/continue tx plan 10/12: Continue current management and treatment plan. 10/13: continue current management and treatment plan. 10/14 risperidone changed to liquid 10/15 continue tx plan; labs reordered, d/c antibiotic, encourage meals and fluids 10/16 Patient's mom currently present during interview. Patient gave clear verbal permission for mortgage underwriter to discuss case with her mother, both while patient was present and after patient left the room. -reviewed labs which are unremarkable -Prior to mom coming, Pt talking with peers, staff more freely though still often mumbling; when mom came patient became selectively mute, mumbling, started spitting into a basin. -Regarding mood patient said she is not good. When asked what she would like help with changing, she said to stop telling lies, but could not elaborate -Patient made some references that her family's trying to kill her or that her mom is trying to kill her; when mortgage underwriter asked her why she said because of the food, she was not supposed to eat it however she did... Patient could not clarify further. Patient was drinking water, saying she was thirsty. -Patient said she wanted to go home; said she was taking the medications as told, but accepted she would have to remain on the unit longer; patient decided to leave the room but not before she said that she thinks her mom is trying to get her killed. remains disorganized in speech and behavior with paranoid thinking; slept through the night; no manic symptoms -ordered Neuro consult to help r/o encephalitis 10/17 remains disorganized in speech and behavior, paranoid, guarded -discussed with Dr. Cornell who reports unlikely encephalitis (or due to Covid) and that given time elapsed since contracted Covid (sep 28), testing won't help much; recs doing pelvic ultrasound for teratoma (again unlikely) and getting EEG to see if any slowing; however, if anti-psychotics/mood stabilizers clear up symptoms, this would strongly point at an organic psychotic/manic origin. -per chart, pt does have hx of ovarian cyst Will continue w/ medication treatment; if does not clear up can begin to consider LP, MRI, anti-NDMA antibodies will get pelvic US and EEG (since non-invasive) 10/19/23 continue risperidone trial - no change as yet 10/20/23 improved more verbal ( mother not in today following her) co anxiety with elelvated hr and sometimes bp given prns clonidine, then aterax and clonazepam 10/20 pt remains w/ AH and paranoid delusion that mother wants her because she gave [food].. However, she is open to the idea that maybe she's mistaken, that her mind is playing tricks on her; also, she is more talkative and able to engage in conversation. She also showered and is drinking fluids more regularly (and eating a little better). She agrees to increase in Risperdal -mom came to visit; she thinks her daughter is about 5/10. -will increase risperdal (considered increasing depakote since likely bipolar, however no manic symptoms and prominent symptoms remain psychotic 3 little better; she feels so, she went to group and participated appropriately, talking more; however still with AH/paranoid delusions. will increase Riserpdal futrher 10/23/23 psychotic dx cont risperadol 10/23 no longer manic, but remains with intrusive AH and paranoid delusions (intermittently keeping her from eating) that have not lessened at all, despite being on Risperdal 7mg and Zyprexa (used as prn, but used frequently, up to 20mg). Likely risperdal +/- Zyprexa helped to quite some manic symptoms early on in admission (which soon fully resolved) but have not touched psychotic ones. Will dc both and start Haldol 10/24 remains with psychotic symptoms, AH, paranoid delusions... continue with Haldol titration 10/25 for the 1st time patient says AH is less bothersome; mortgage underwriter cautiously optimistic and will continue with current treatment plan 10/26 AH back to bothersome, saying mean things...continued paranoid delusions, food is poisoned and not eating meals (eating some things prepared by nurse); will increase haldol to 10mg BID to see if this med can be effective 10/27 Patient did not sleep last night, more disorganized today, talking less. Patient said she has not good and AH remains. A little later on patient not talking but sticking her tongue out. Given Benadryl; protruding tongue ceased but it has not clear if this was dystonia or just bizarre behavior as patient really does not talk about it much. Will DC Haldol Will start Depakote; patient not sleeping and though not clearly manic disorganized; also mother is stabilized on Depakote Will also start Ativan 2 mg and likely schedule throughout the day as patient may have a touch of catatonia 10/28 psychotic delirium combined with med side-effect very tired from ativan; unlilkely catatonia but will keep in mind pt showered with prompting; asked mortgage underwriter when she would go home but otherwise, not talking much will dc depakote; do med wash and then reassess med management approach 10/29 still quite disorganized but a little better than the day before; continues to have AH, paranoid delusions. Will continue holding medications and likely start Abilify tomorrow 10/30 patient is improved today, more organized, talking more, eating more. Says she is anxious; agrees to plan with Abilify -will start with Abilify 2 mg daily for couple days and then will advance to 5 mg dx: -psychosis/joana -delirum -intellectual disability -hx ovarian cyst Plan: CV 15 min checks START Abilify 2mg daily; will advance to 5mg daily DC Ativan; has not helped, causing much drowsiness, making catatonia unlikely DC Depakote; will do med wash DC Haldol; not working, possibly causing dystonia. DC risperdal DC zyprexa prn dc'd depakote 500mg (pt refused so stopped) Hold: controldesogestrel-ethinyl estradiol [Apri] 0.15-0.03 mg tablet Hold: Auvelity 45-105 mg tablet,IR,delayed rel,biphasic (dextromethorphan bupropion) Other history: -Patient has had an IEP since she was in grade school, often in a therapeutic class environment; 1 on 1 help with all school work; mother says some developmental delay. -She does not think her daughter would be capable of obtaining or keeping a job. -Patient has had 1 friend from school throughout the past years, though the friendship recently ended; she has a lot of online friends. Patient also currently has a boyfriend that she met online but who visits. -Patient has history of intermittent refusal to drink fluids and maybe once every 6 months would end up coming to the hospital ED for dehydration. This was more common when she was in grade school and has only been a few times in the past year -med trials: Low-dose Zyprexa, Abilify; Vraylar, never ended up vortioxetine Patient educated on: diagnosis and medication risk/benefits Informed Consent: understands, does not understand and further education needed Reason for continued inpatient stay Substantial Risk for: inability to function Time Spent With Patient Time: Total time managing care of this patient today ____ minutes.
[2023-10-31] MEDS: ARIPiprazole 2 MG TABLET PO (12:45)
[2023-10-31] MEDS: hydrOXYzine HCL 25 MG TABLET PO (16:07)
[2023-10-31 18:00] VITALS: BP 103/51; PULSE 85; RESP 18; TEMP 35.8; O2SAT 100
[2023-10-31] MEDS: traZODone HCL 50 MG TABLET PO (19:27)
[2023-10-31] MEDS: Famotidine 20 MG TABLET PO (19:28)
[2023-11-01] MEDS: hydrOXYzine HCL 25 MG TABLET PO ×4 (00:06→23:50)
[2023-11-01] MEDS: traZODone HCL 50 MG TABLET PO (00:06)
[2023-11-01] MEDS: Omeprazole 20 MG CAPSULE.DR PO (05:02)
[2023-11-01 08:04] VITALS: BP 101/58; PULSE 60; RESP 16; TEMP 36; O2SAT 97
[2023-11-01] MEDS: cloNIDine HCL 0.1 MG TABLET 0.05 MG PO ×2 (08:49→19:51)
[2023-11-01] MEDS: ARIPiprazole 2 MG TABLET PO (13:53)
--- NOTE | 2023-11-01 14:34 | P.PNPSI_ITS ---
Subjective Subjective Date of Service: 11/01/23 Reason For Visit: Depresssion Interim History: Pt appreciative of team acknowledging her birthday. Increase in anxiety today after visit from mother. Tolerating Abilify 2 mg-will increase to 5 mg on 11/02/23. Utilizing team/milieu for support. Visable, more interactive, able to communicate to team that one of her peers is making her feel more anxious. Utilizing prns Medication Compliance: Yes Side effects from medications: No Attending Groups: Intermittent Review of Systems Acute medical concerns: No Medical Review of Systems: unchanged Review of Systems Review of Systems Yes all other systems are reviewed and are negative Mental Status Exam Mental Status Exam Patient Appearance: Appropriate Patient Orientation: Person, Place, Time and Situation Level of Consciousness: Alert Patient Behavior: Dependent, Cooperative, Passive, Suspicious, Timid, Anxious, Fearful and Distractible Mood Description: Anxious and Apprehensive Affect Description: Anxious and Apprehensive Patient Cognition Impaired: Yes Ability to Follow Directions: Good Speech Pattern: Spontaneous Speech, Soft-Spoken, Delayed and Long Pauses Thought Content: positive for Suicidal Ideation (denies) Depressive Symptoms: Increased Anxiety Abnormal Motor Activity Signs and Symptoms: Restlessness Diagnostics Vital Signs (24Hr): Vital Signs - 24 hr 10/31/23 18:00 11/01/23 08:04 Temperature 96.4 F L 96.8 F Pulse Rate 85 60 Respiratory Rate 18 16 Blood Pressure 103/51 L 101/58 L Pulse Oximetry 100 97 Oxygen Delivery Method Room Air Room Air BMI result Body Mass Index 20.5 Labs 10/16/23 08:46 10/16/23 08:46 Imaging Radiology Impressions: ITS Impressions Head CT 10/08/23 21:15 IMPRESSION: Unremarkable CT scan of the head. No evidence of acute territorial infarct or hemorrhage. Pelvis Ultrasound 10/19/23 08:16 IMPRESSION: Very limited examination. Further evaluation with MRI of the pelvis as clinically warranted. There is a 4.3 cm simple appearing cyst in the left ovary that is almost certainly benign in a patient of this age and for which no imaging follow-up is recommended in an asymptomatic patient. If an acute ovarian pathology such as torsion is clinically suspected, further evaluation with MRI pelvis is recommended. Medications Medications Current Medications Acetaminophen (Acetaminophen 325 Mg Tablet) 650 mg PO Q6H PRN PRN Reason: Headache/Pain Mild Scale (1-3) Last Admin: 10/26/23 10:59 Dose: 650 mg Al Hydroxide/Mg Hydroxide (Magnesium Hydrox/Alum Hydrox 30 Ml Oral.Susp) 30 ml PO Q6H PRN PRN Reason: Heartburn/Nausea Last Admin: 10/27/23 10:10 Dose: 30 ml Aripiprazole (Aripiprazole 5 Mg Tablet) 5 mg PO DAILY [facility] Calcium Carbonate (Calcium Carbonate 750 Mg Tab.Chew) 750 mg PO Q4H PRN PRN Reason: Heartburn Last Admin: 10/27/23 10:11 Dose: 750 mg Clonidine HCl (Clonidine Hcl 0.1 Mg Tablet) 0.05 mg PO BID [facility]; Protocol Last Admin: 11/01/23 08:49 Dose: 0.05 mg Famotidine (Famotidine 20 Mg Tablet) 20 mg PO BEDTIME KRISTI Last Admin: 10/31/23 19:28 Dose: 20 mg Hydroxyzine HCl (Hydroxyzine Hcl 25 Mg Tablet) 25 mg PO Q6H PRN PRN Reason: Anxiety Last Admin: 11/01/23 11:13 Dose: 25 mg Magnesium Hydroxide (Milk Of Magnesia 30 Ml Oral.Susp) 30 ml PO DAILY PRN PRN Reason: Constipation Last Admin: 10/23/23 18:04 Dose: 30 ml Omeprazole (Omeprazole 20 Mg Capsule.Dr) 20 mg PO DAILY@0630 KRISTI Last Admin: 11/01/23 05:02 Dose: 20 mg Trazodone HCl (Trazodone Hcl 50 Mg Tablet) 50 mg PO BEDTIME MRX1 PRN PRN Reason: Insomnia Last Admin: 11/01/23 00:06 Dose: 50 mg Allergies Allergies Allergy/AdvReac Type Severity Reaction Status Date / Time metoprolol AdvReac Diarrhea Verified 10/07/23 23:43 Assessment & Plan Assessment & Plan (1) Psychosis: Status: Acute Code(s): F29 - Unspecified psychosis not due to a substance or known physiological condition (2) Delirium: Status: Suspected Code(s): R41.0 - Disorientation, unspecified (3) Intellectual disability: Status: Acute Code(s): F79 - Unspecified intellectual disabilities (4) Left ovarian cyst: Status: Acute Code(s): N83.202 - Unspecified ovarian cyst, left side (5) Major depressive disorder, recurrent episode, severe, with psychosis: Status: Acute Code(s): F33.3 - Major depressive disorder, recurrent, severe with psychotic symptoms (6) UTI (urinary tract infection): Status: Acute Code(s): N39.0 - Urinary tract infection, site not specified Plan 22 yo female with history of depression and anxiety admitted to [facility] due to rapid decompensation in context of recent covid infection. She is internally preoccupied and disorganized as well as almost mute with very few verbal utterances- whispering and mumbling. Recent history: Patient's mother, Latisha, says that prior to getting COVID September 28, patient was her regular self, without any history of psychotic or manic symptoms. Starting with COVID patient started to decompensate; about 5 days prior to the admission, patient was up all night, not sleeping at all, pacing the house and going into very is rooms in a disorganized manner; she was talking excessively and started complaining of auditory hallucinations (it was only once she got to the unit that she is expressed paranoid delusions). Mom says this is the 1st time patient has had any such manic episode. Mother says she herself has bipolar disorder, has been previously hospitalized and is stable on Depakote and Abilify. No other family history known Hx: -history of developmental delay; however no history of psychosis or manic episodes/behaviors prior to getting COVID infection this September 28 Impression: -it is possible that patient had some amount of COVID triggered encephalitis, maybe further complicated by UTI on admission. However, given mom's history of bipolar disorder combined with patient's current presentation (and absence of RDS, metabolic derangement, cardiac events-the lactic acid was elevated), it seems likely that this is a 1st manic break for patient. -at this time will treat for bipolar/psychosis Hospital course: 10/11/continue tx plan 10/12: Continue current management and treatment plan. 10/13: continue current management and treatment plan. 10/14 risperidone changed to liquid 10/15 continue tx plan; labs reordered, d/c antibiotic, encourage meals and fluids 10/16 Patient's mom currently present during interview. Patient gave clear verbal permission for writer technical [employer] to discuss case with her mother, both while patient was present and after patient left the room. -reviewed labs which are unremarkable -Prior to mom coming, Pt talking with peers, staff more freely though still often mumbling; when mom came patient became selectively mute, mumbling, started spitting into a basin. -Regarding mood patient said she is not good. When asked what she would like help with changing, she said to stop telling lies, but could not elaborate -Patient made some references that her family's trying to kill her or that her mom is trying to kill her; when [employer] asked her why she said because of the food, she was not supposed to eat it however she did... Patient could not clarify further. Patient was drinking water, saying she was thirsty. -Patient said she wanted to go home; said she was taking the medications as told, but accepted she would have to remain on the unit longer; patient decided to leave the room but not before she said that she thinks her mom is trying to get her killed. remains disorganized in speech and behavior with paranoid thinking; slept through the night; no manic symptoms -ordered Neuro consult to help r/o encephalitis 10/17 remains disorganized in speech and behavior, paranoid, guarded -discussed with Dr. Cornell who reports unlikely encephalitis (or due to Covid) and that given time elapsed since contracted Covid (sep 28), testing won't help much; recs doing pelvic ultrasound for teratoma (again unlikely) and getting EEG to see if any slowing; however, if anti-psychotics/mood stabilizers clear up symptoms, this would strongly point at an organic psychotic/manic origin. -per chart, pt does have hx of ovarian cyst Will continue w/ medication treatment; if does not clear up can begin to consider LP, MRI, anti-NDMA antibodies will get pelvic US and EEG (since non-invasive) 10/19/23 continue risperidone trial - no change as yet 10/20/23 improved more verbal ( mother not in today following her) co anxiety with elelvated hr and sometimes bp given prns clonidine, then aterax and clonazepam 10/20 pt remains w/ AH and paranoid delusion that mother wants her because she gave [food].. However, she is open to the idea that maybe she's mistaken, that her mind is playing tricks on her; also, she is more talkative and able to engage in conversation. She also showered and is drinking fluids more regularly (and eating a little better). She agrees to increase in Risperdal -mom came to visit; she thinks her daughter is about 12/26. -will increase risperdal (considered increasing depakote since likely bipolar, however no manic symptoms and prominent symptoms remain psychotic 10/21 little better; she feels so, she went to group and participated appropriately, talking more; however still with AH/paranoid delusions. will increase Riserpdal futrher 10/23/23 psychotic dx cont risperadol 10/23 no longer manic, but remains with intrusive AH and paranoid delusions (intermittently keeping her from eating) that have not lessened at all, despite being on Risperdal 7mg and Zyprexa (used as prn, but used frequently, up to 20mg). Likely risperdal +/- Zyprexa helped to quite some manic symptoms early on in admission (which soon fully resolved) but have not touched psychotic ones. Will dc both and start Haldol 10/24 remains with psychotic symptoms, AH, paranoid delusions... continue with Haldol titration 10/25 for the 1st time patient says AH is less bothersome; [employer] cautiously optimistic and will continue with current treatment plan 10/26 AH back to bothersome, saying mean things...continued paranoid delusions, food is poisoned and not eating meals (eating some things prepared by nurse); will increase haldol to 10mg BID to see if this med can be effective 10/27 Patient did not sleep last night, more disorganized today, talking less. Patient said she has not good and AH remains. A little later on patient not talking but sticking her tongue out. Given Benadryl; protruding tongue ceased but it has not clear if this was dystonia or just bizarre behavior as patient really does not talk about it much. Will DC Haldol Will start Depakote; patient not sleeping and though not clearly manic disorganized; also mother is stabilized on Depakote Will also start Ativan 2 mg and likely schedule throughout the day as patient may have a touch of catatonia 10/28 psychotic delirium combined with med side-effect very tired from ativan; unlilkely catatonia but will keep in mind pt showered with prompting; asked [employer] when she would go home but otherwise, not talking much will dc depakote; do med wash and then reassess med management approach 10/29 still quite disorganized but a little better than the day before; continues to have AH, paranoid delusions. Will continue holding medications and likely start Abilify tomorrow 10/30 patient is improved today, more organized, talking more, eating more. Says she is anxious; agrees to plan with Abilify -will start with Abilify 2 mg daily for couple days and then will advance to 5 mg 11/01/23 tolerating Abilify thus far. Continue with 2 mg today, increase to 5 mg 11/02/23. dx: -psychosis/joana -delirum -intellectual disability -hx ovarian cyst Plan: CV 15 min checks START Abilify 2mg daily; will advance to 5mg daily DC Ativan; has not helped, causing much drowsiness, making catatonia unlikely DC Depakote; will do med wash DC Haldol; not working, possibly causing dystonia. DC risperdal DC zyprexa prn dc'd depakote 500mg (pt refused so stopped) Hold: controldesogestrel-ethinyl estradiol [Apri] 0.15-0.03 mg tablet Hold: Auvelity 45-105 mg tablet,IR,delayed rel,biphasic (dextromethorphan bupropion) Other history: -Patient has had an IEP since she was in grade school, often in a therapeutic class environment; 1 on 1 help with all school work; mother says some developmental delay. -She does not think her daughter would be capable of obtaining or keeping a job. -Patient has had 1 friend from school throughout the past years, though the friendship recently ended; she has a lot of online friends. Patient also currently has a boyfriend that she met online but who visits. -Patient has history of intermittent refusal to drink fluids and maybe once every 6 months would end up coming to the hospital ED for dehydration. This was more common when she was in grade school and has only been a few times in the past year -med trials: Low-dose Zyprexa, Abilify; Vraylar, never ended up vortioxetine Reason for continued inpatient stay Substantial Risk for: rapid decompensation Time Spent With Patient Time: Total time managing care of this patient today ____ minutes.
[2023-11-01 18:00] VITALS: BP 107/68; PULSE 112; RESP 18
[2023-11-01] MEDS: Famotidine 20 MG TABLET PO (19:51)
[2023-11-02] MEDS: Omeprazole 20 MG CAPSULE.DR PO (06:32)
--- NOTE | 2023-11-02 08:00 | HO.PSYCHPN ---
Subjective Subjective Date of Service: 11/02/23 Reason For Visit: Depresssion Subjective Notes: Conditional Voluntary Healthcare Proxy: No Guardianship: No Interim History: Patient seen and discussed in rounds today. Records and plans were reviewed. She talked about her birthday yesterday. She is eating and sleeping adequately. Continues to be depressed and anxious. Medication compliant. She has a little more communicative but continues to have auditory hallucinations which tell her to ??. She is tolerating Abilify which is to be increased tomorrow. No dangerous behaviors reported. No changes were made today Review of Systems Review of Systems Yes all other systems are reviewed and are negative Mental Status Exam Mental Status Exam Narrative: In today's visit she is alert, pleasant and minimally interactive within her means. Very soft-spoken speech, at times hard to understand. Moderate eye contact. Affect is flat and constricted. Admits to auditory hallucinations. No command hallucinations. Cognitively she has slowed thought processes. Judgment is marginal. Diagnostics Vital Signs (24Hr): Vital Signs - 24 hr 11/01/23 08:04 11/01/23 18:00 Temperature 96.8 F Pulse Rate 60 112 H Respiratory Rate 16 18 Blood Pressure 101/58 L 107/68 Pulse Oximetry 97 Oxygen Delivery Method Room Air BMI result Body Mass Index 20.5 Labs 10/16/23 08:46 10/16/23 08:46 Imaging Radiology Impressions: ITS Impressions Head CT 10/08/23 21:15 IMPRESSION: Unremarkable CT scan of the head. No evidence of acute territorial infarct or hemorrhage. Pelvis Ultrasound 10/19/23 08:16 IMPRESSION: Very limited examination. Further evaluation with MRI of the pelvis as clinically warranted. There is a 4.3 cm simple appearing cyst in the left ovary that is almost certainly benign in a patient of this age and for which no imaging follow-up is recommended in an asymptomatic patient. If an acute ovarian pathology such as torsion is clinically suspected, further evaluation with MRI pelvis is recommended. Medications Medications Current Medications Acetaminophen (Acetaminophen 325 Mg Tablet) 650 mg PO Q6H PRN PRN Reason: Headache/Pain Mild Scale (1-3) Last Admin: 10/26/23 10:59 Dose: 650 mg Al Hydroxide/Mg Hydroxide (Magnesium Hydrox/Alum Hydrox 30 Ml Oral.Susp) 30 ml PO Q6H PRN PRN Reason: Heartburn/Nausea Last Admin: 10/27/23 10:10 Dose: 30 ml Aripiprazole (Aripiprazole 5 Mg Tablet) 5 mg PO DAILY [facility] Calcium Carbonate (Calcium Carbonate 750 Mg Tab.Chew) 750 mg PO Q4H PRN PRN Reason: Heartburn Last Admin: 10/27/23 10:11 Dose: 750 mg Clonidine HCl (Clonidine Hcl 0.1 Mg Tablet) 0.05 mg PO BID [facility]; Protocol Last Admin: 11/01/23 19:51 Dose: 0.05 mg Famotidine (Famotidine 20 Mg Tablet) 20 mg PO BEDTIME KRISTI Last Admin: 11/01/23 19:51 Dose: 20 mg Hydroxyzine HCl (Hydroxyzine Hcl 25 Mg Tablet) 25 mg PO Q6H PRN PRN Reason: Anxiety Last Admin: 11/01/23 23:50 Dose: 25 mg Magnesium Hydroxide (Milk Of Magnesia 30 Ml Oral.Susp) 30 ml PO DAILY PRN PRN Reason: Constipation Last Admin: 10/23/23 18:04 Dose: 30 ml Omeprazole (Omeprazole 20 Mg Capsule.Dr) 20 mg PO DAILY@0630 KRISTI Last Admin: 11/02/23 06:32 Dose: 20 mg Trazodone HCl (Trazodone Hcl 50 Mg Tablet) 50 mg PO BEDTIME MRX1 PRN PRN Reason: Insomnia Last Admin: 11/01/23 00:06 Dose: 50 mg Allergies Allergies Allergy/AdvReac Type Severity Reaction Status Date / Time metoprolol AdvReac Diarrhea Verified 10/07/23 23:43 Assessment & Plan Assessment & Plan (1) Psychosis: Status: Acute Code(s): F29 - Unspecified psychosis not due to a substance or known physiological condition (2) Delirium: Status: Suspected Code(s): R41.0 - Disorientation, unspecified (3) Intellectual disability: Status: Acute Code(s): F79 - Unspecified intellectual disabilities (4) Left ovarian cyst: Status: Acute Code(s): N83.202 - Unspecified ovarian cyst, left side (5) Major depressive disorder, recurrent episode, severe, with psychosis: Status: Acute Code(s): F33.3 - Major depressive disorder, recurrent, severe with psychotic symptoms (6) UTI (urinary tract infection): Status: Acute Code(s): N39.0 - Urinary tract infection, site not specified Plan 22 yo female with history of depression and anxiety admitted to [facility] due to rapid decompensation in context of recent covid infection. She is internally preoccupied and disorganized as well as almost mute with very few verbal utterances- whispering and mumbling. Recent history: Patient's mother, Latisha, says that prior to getting COVID September 28, patient was her regular self, without any history of psychotic or manic symptoms. Starting with COVID patient started to decompensate; about 5 days prior to the admission, patient was up all night, not sleeping at all, pacing the house and going into very is rooms in a disorganized manner; she was talking excessively and started complaining of auditory hallucinations (it was only once she got to the unit that she is expressed paranoid delusions). Mom says this is the 1st time patient has had any such manic episode. Mother says she herself has bipolar disorder, has been previously hospitalized and is stable on Depakote and Abilify. No other family history known Hx: -history of developmental delay; however no history of psychosis or manic episodes/behaviors prior to getting COVID infection this September 28 Impression: -it is possible that patient had some amount of COVID triggered encephalitis, maybe further complicated by UTI on admission. However, given mom's history of bipolar disorder combined with patient's current presentation (and absence of RDS, metabolic derangement, cardiac events-the lactic acid was elevated), it seems likely that this is a 1st manic break for patient. -at this time will treat for bipolar/psychosis Hospital course: 10/11/continue tx plan 10/12: Continue current management and treatment plan. 10/13: continue current management and treatment plan. 10/14 risperidone changed to liquid 10/15 continue tx plan; labs reordered, d/c antibiotic, encourage meals and fluids 10/16 Patient's mom currently present during interview. Patient gave clear verbal permission for quality analyst/technical writer to discuss case with her mother, both while patient was present and after patient left the room. -reviewed labs which are unremarkable -Prior to mom coming, Pt talking with peers, staff more freely though still often mumbling; when mom came patient became selectively mute, mumbling, started spitting into a basin. -Regarding mood patient said she is not good. When asked what she would like help with changing, she said to stop telling lies, but could not elaborate -Patient made some references that her family's trying to kill her or that her mom is trying to kill her; when quality analyst/technical writer asked her why she said because of the food, she was not supposed to eat it however she did... Patient could not clarify further. Patient was drinking water, saying she was thirsty. -Patient said she wanted to go home; said she was taking the medications as told, but accepted she would have to remain on the unit longer; patient decided to leave the room but not before she said that she thinks her mom is trying to get her killed. remains disorganized in speech and behavior with paranoid thinking; slept through the night; no manic symptoms -ordered Neuro consult to help r/o encephalitis 10/17 remains disorganized in speech and behavior, paranoid, guarded -discussed with Dr. Cornell who reports unlikely encephalitis (or due to Covid) and that given time elapsed since contracted Covid (sep 28), testing won't help much; recs doing pelvic ultrasound for teratoma (again unlikely) and getting EEG to see if any slowing; however, if anti-psychotics/mood stabilizers clear up symptoms, this would strongly point at an organic psychotic/manic origin. -per chart, pt does have hx of ovarian cyst Will continue w/ medication treatment; if does not clear up can begin to consider LP, MRI, anti-NDMA antibodies will get pelvic US and EEG (since non-invasive) 10/19/23 continue risperidone trial - no change as yet 10/20/23 improved more verbal ( mother not in today following her) co anxiety with elelvated hr and sometimes bp given prns clonidine, then aterax and clonazepam 10/20 pt remains w/ AH and paranoid delusion that mother wants her because she gave [food].. However, she is open to the idea that maybe she's mistaken, that her mind is playing tricks on her; also, she is more talkative and able to engage in conversation. She also showered and is drinking fluids more regularly (and eating a little better). She agrees to increase in Risperdal -mom came to visit; she thinks her daughter is about 5/10. -will increase risperdal (considered increasing depakote since likely bipolar, however no manic symptoms and prominent symptoms remain psychotic 10/21 little better; she feels so, she went to group and participated appropriately, talking more; however still with AH/paranoid delusions. will increase Riserpdal futrher 10/23/23 psychotic dx cont risperadol 10/23 no longer manic, but remains with intrusive AH and paranoid delusions (intermittently keeping her from eating) that have not lessened at all, despite being on Risperdal 7mg and Zyprexa (used as prn, but used frequently, up to 20mg). Likely risperdal +/- Zyprexa helped to quite some manic symptoms early on in admission (which soon fully resolved) but have not touched psychotic ones. Will dc both and start Haldol 10/24 remains with psychotic symptoms, AH, paranoid delusions... continue with Haldol titration 10/25 for the 1st time patient says AH is less bothersome; quality analyst/technical writer cautiously optimistic and will continue with current treatment plan 10/26 AH back to bothersome, saying mean things...continued paranoid delusions, food is poisoned and not eating meals (eating some things prepared by nurse); will increase haldol to 10mg BID to see if this med can be effective 10/27 Patient did not sleep last night, more disorganized today, talking less. Patient said she has not good and AH remains. A little later on patient not talking but sticking her tongue out. Given Benadryl; protruding tongue ceased but it has not clear if this was dystonia or just bizarre behavior as patient really does not talk about it much. Will DC Haldol Will start Depakote; patient not sleeping and though not clearly manic disorganized; also mother is stabilized on Depakote Will also start Ativan 2 mg and likely schedule throughout the day as patient may have a touch of catatonia 10/28 psychotic delirium combined with med side-effect very tired from ativan; unlilkely catatonia but will keep in mind pt showered with prompting; asked quality analyst/technical writer when she would go home but otherwise, not talking much will dc depakote; do med wash and then reassess med management approach 10/29 still quite disorganized but a little better than the day before; continues to have AH, paranoid delusions. Will continue holding medications and likely start Abilify tomorrow 10/30 patient is improved today, more organized, talking more, eating more. Says she is anxious; agrees to plan with Abilify -will start with Abilify 2 mg daily for couple days and then will advance to 5 mg 11/01/23 tolerating Abilify thus far. Continue with 2 mg today, increase to 5 mg 11/02/23. 11/02/2023: Continue current regimen and plans. Increasing Abilify tomorrow dx: -psychosis/joana -delirum -intellectual disability -hx ovarian cyst Plan: CV 15 min checks START Abilify 2mg daily; will advance to 5mg daily DC Ativan; has not helped, causing much drowsiness, making catatonia unlikely DC Depakote; will do med wash DC Haldol; not working, possibly causing dystonia. DC risperdal DC zyprexa prn dc'd depakote 500mg (pt refused so stopped) Hold: controldesogestrel-ethinyl estradiol [Apri] 0.15-0.03 mg tablet Hold: Auvelity 45-105 mg tablet,IR,delayed rel,biphasic (dextromethorphan bupropion) Other history: -Patient has had an IEP since she was in grade school, often in a therapeutic class environment; 1 on 1 help with all school work; mother says some developmental delay. -She does not think her daughter would be capable of obtaining or keeping a job. -Patient has had 1 friend from school throughout the past years, though the friendship recently ended; she has a lot of online friends. Patient also currently has a boyfriend that she met online but who visits. -Patient has history of intermittent refusal to drink fluids and maybe once every 6 months would end up coming to the hospital ED for dehydration. This was more common when she was in grade school and has only been a few times in the past year -med trials: Low-dose Zyprexa, Abilify; Vraylar, never ended up vortioxetine Reason for continued inpatient stay Substantial Risk for: harm to self and med/psych decompensation Time Spent With Patient Time: Total time managing care of this patient today ____ minutes.
[2023-11-02 08:45] VITALS: BP 114/58; PULSE 76; RESP 18; TEMP 35.9; O2SAT 97
[2023-11-02] MEDS: ARIPiprazole 5 MG TABLET PO (08:47)
[2023-11-02] MEDS: cloNIDine HCL 0.1 MG TABLET 0.05 MG PO ×2 (08:47→21:00)
[2023-11-02] MEDS: hydrOXYzine HCL 25 MG TABLET PO (15:56)
[2023-11-02] MEDS: Acetaminophen 325 MG TABLET 650 MG PO (15:57)
[2023-11-02 16:09] VITALS: BP 115/75; PULSE 119; TEMP 36.2; O2SAT 99
[2023-11-02] MEDS: Famotidine 20 MG TABLET PO (21:03)
[2023-11-03] MEDS: Omeprazole 20 MG CAPSULE.DR PO (06:08)
[2023-11-03 07:32] VITALS: BP 126/78; PULSE 122; RESP 17; TEMP 36.7; O2SAT 98
[2023-11-03] MEDS: cloNIDine HCL 0.1 MG TABLET 0.05 MG PO ×2 (07:56→20:07)
[2023-11-03] MEDS: ARIPiprazole 5 MG TABLET PO ×2 (07:56→10:05)
--- NOTE | 2023-11-03 08:32 | P.PNPSI_ITS ---
Subjective Subjective Date of Service: 11/03/23 Reason For Visit: Depresssion Subjective Notes: Conditional Voluntary Healthcare Proxy: No Guardianship: No Interim History: Patient seen and discussed in rounds today. Records and plans were reviewed. She continues to be isolative, pacing the hallways. Continues to have auditory hallucinations, telling her to ??. No complaints or side effects. Eating and sleeping adequately. No changes were made today Review of Systems Review of Systems Yes all other systems are reviewed and are negative Mental Status Exam Mental Status Exam Narrative: In today's visit she is alert, pleasant and minimally interactive within her means. Very soft-spoken speech, at times hard to understand. Moderate eye contact. Affect is flat and constricted. Admits to auditory hallucinations. No command hallucinations. Cognitively she has slowed thought processes. Judgment is marginal. Diagnostics Vital Signs (24Hr): Vital Signs - 24 hr 11/02/23 08:45 11/02/23 16:09 11/03/23 07:32 Temperature 96.6 F L 97.2 F 98.1 F Pulse Rate 76 119 H 122 H Respiratory Rate 18 17 Blood Pressure 114/58 L 115/75 126/78 Pulse Oximetry 97 99 98 Oxygen Delivery Method Room Air Room Air Room Air BMI result Body Mass Index 20.5 Labs 10/16/23 08:46 10/16/23 08:46 Imaging Radiology Impressions: ITS Impressions Head CT 10/08/23 21:15 IMPRESSION: Unremarkable CT scan of the head. No evidence of acute territorial infarct or hemorrhage. Pelvis Ultrasound 10/19/23 08:16 IMPRESSION: Very limited examination. Further evaluation with MRI of the pelvis as clinically warranted. There is a 4.3 cm simple appearing cyst in the left ovary that is almost certainly benign in a patient of this age and for which no imaging follow-up is recommended in an asymptomatic patient. If an acute ovarian pathology such as torsion is clinically suspected, further evaluation with MRI pelvis is recommended. Medications Medications Current Medications Acetaminophen (Acetaminophen 325 Mg Tablet) 650 mg PO Q6H PRN PRN Reason: Headache/Pain Mild Scale (1-3) Last Admin: 11/02/23 15:57 Dose: 650 mg Al Hydroxide/Mg Hydroxide (Magnesium Hydrox/Alum Hydrox 30 Ml Oral.Susp) 30 ml PO Q6H PRN PRN Reason: Heartburn/Nausea Last Admin: 10/27/23 10:10 Dose: 30 ml Aripiprazole (Aripiprazole 5 Mg Tablet) 5 mg PO DAILY [facility] Last Admin: 11/03/23 07:56 Dose: 5 mg Calcium Carbonate (Calcium Carbonate 750 Mg Tab.Chew) 750 mg PO Q4H PRN PRN Reason: Heartburn Last Admin: 10/27/23 10:11 Dose: 750 mg Clonidine HCl (Clonidine Hcl 0.1 Mg Tablet) 0.05 mg PO BID [facility]; Protocol Last Admin: 11/03/23 07:56 Dose: 0.05 mg Famotidine (Famotidine 20 Mg Tablet) 20 mg PO BEDTIME KRISTI Last Admin: 11/02/23 21:03 Dose: 20 mg Hydroxyzine HCl (Hydroxyzine Hcl 25 Mg Tablet) 25 mg PO Q6H PRN PRN Reason: Anxiety Last Admin: 11/02/23 15:56 Dose: 25 mg Magnesium Hydroxide (Milk Of Magnesia 30 Ml Oral.Susp) 30 ml PO DAILY PRN PRN Reason: Constipation Last Admin: 10/23/23 18:04 Dose: 30 ml Omeprazole (Omeprazole 20 Mg Capsule.Dr) 20 mg PO DAILY@0630 [facility] Last Admin: 11/03/23 06:08 Dose: 20 mg Trazodone HCl (Trazodone Hcl 50 Mg Tablet) 50 mg PO BEDTIME MRX1 PRN PRN Reason: Insomnia Last Admin: 11/01/23 00:06 Dose: 50 mg Allergies Allergies Allergy/AdvReac Type Severity Reaction Status Date / Time metoprolol AdvReac Diarrhea Verified 10/07/23 23:43 Assessment & Plan Assessment & Plan (1) Psychosis: Status: Acute Code(s): F29 - Unspecified psychosis not due to a substance or known physiological condition (2) Delirium: Status: Suspected Code(s): R41.0 - Disorientation, unspecified (3) Intellectual disability: Status: Acute Code(s): F79 - Unspecified intellectual disabilities (4) Left ovarian cyst: Status: Acute Code(s): N83.202 - Unspecified ovarian cyst, left side (5) Major depressive disorder, recurrent episode, severe, with psychosis: Status: Acute Code(s): F33.3 - Major depressive disorder, recurrent, severe with psychotic symptoms (6) UTI (urinary tract infection): Status: Acute Code(s): N39.0 - Urinary tract infection, site not specified Plan 22 yo female with history of depression and anxiety admitted to [facility] due to rapid decompensation in context of recent covid infection. She is internally preoccupied and disorganized as well as almost mute with very few verbal utterances- whispering and mumbling. Recent history: Patient's mother, Latisha, says that prior to getting COVID September 28, patient was her regular self, without any history of psychotic or manic symptoms. Starting with COVID patient started to decompensate; about 5 days prior to the admission, patient was up all night, not sleeping at all, pacing the house and going into very is rooms in a disorganized manner; she was talking excessively and started complaining of auditory hallucinations (it was only once she got to the unit that she is expressed paranoid delusions). Mom says this is the 1st time patient has had any such manic episode. Mother says she herself has bipolar disorder, has been previously hospitalized and is stable on Depakote and Abilify. No other family history known Hx: -history of developmental delay; however no history of psychosis or manic episodes/behaviors prior to getting COVID infection this September 28 Impression: -it is possible that patient had some amount of COVID triggered encephalitis, maybe further complicated by UTI on admission. However, given mom's history of bipolar disorder combined with patient's current presentation (and absence of RDS, metabolic derangement, cardiac events-the lactic acid was elevated), it seems likely that this is a 1st manic break for patient. -at this time will treat for bipolar/psychosis Hospital course: 10/11/continue tx plan 10/12: Continue current management and treatment plan. 10/13: continue current management and treatment plan. 10/14 risperidone changed to liquid 10/15 continue tx plan; labs reordered, d/c antibiotic, encourage meals and fluids 10/16 Patient's mom currently present during interview. Patient gave clear verbal permission for automobile and property underwriter to discuss case with her mother, both while patient was present and after patient left the room. -reviewed labs which are unremarkable -Prior to mom coming, Pt talking with peers, staff more freely though still often mumbling; when mom came patient became selectively mute, mumbling, started spitting into a basin. -Regarding mood patient said she is not good. When asked what she would like help with changing, she said to stop telling lies, but could not elaborate -Patient made some references that her family's trying to kill her or that her mom is trying to kill her; when automobile and property underwriter asked her why she said because of the food, she was not supposed to eat it however she did... Patient could not clarify further. Patient was drinking water, saying she was thirsty. -Patient said she wanted to go home; said she was taking the medications as told, but accepted she would have to remain on the unit longer; patient decided to leave the room but not before she said that she thinks her mom is trying to get her killed. remains disorganized in speech and behavior with paranoid thinking; slept through the night; no manic symptoms -ordered Neuro consult to help r/o encephalitis 10/17 remains disorganized in speech and behavior, paranoid, guarded -discussed with Dr. Cornell who reports unlikely encephalitis (or due to Covid) and that given time elapsed since contracted Covid (sep 28), testing won't help much; recs doing pelvic ultrasound for teratoma (again unlikely) and getting EEG to see if any slowing; however, if anti-psychotics/mood stabilizers clear up symptoms, this would strongly point at an organic psychotic/manic origin. -per chart, pt does have hx of ovarian cyst Will continue w/ medication treatment; if does not clear up can begin to consider LP, MRI, anti-NDMA antibodies will get pelvic US and EEG (since non-invasive) 10/19/23 continue risperidone trial - no change as yet 10/20/23 improved more verbal ( mother not in today following her) co anxiety with elelvated hr and sometimes bp given prns clonidine, then aterax and clonazepam 10/20 pt remains w/ AH and paranoid delusion that mother wants her because she gave [food].. However, she is open to the idea that maybe she's mistaken, that her mind is playing tricks on her; also, she is more talkative and able to engage in conversation. She also showered and is drinking fluids more regularly (and eating a little better). She agrees to increase in Risperdal -mom came to visit; she thinks her daughter is about 5/10. -will increase risperdal (considered increasing depakote since likely bipolar, however no manic symptoms and prominent symptoms remain psychotic 10/21 little better; she feels so, she went to group and participated appropriately, talking more; however still with AH/paranoid delusions. will increase Riserpdal futrher 10/23/23 psychotic dx cont risperadol 10/23 no longer manic, but remains with intrusive AH and paranoid delusions (intermittently keeping her from eating) that have not lessened at all, despite being on Risperdal 7mg and Zyprexa (used as prn, but used frequently, up to 20mg). Likely risperdal +/- Zyprexa helped to quite some manic symptoms early on in admission (which soon fully resolved) but have not touched psychotic ones. Will dc both and start Haldol 10/24 remains with psychotic symptoms, AH, paranoid delusions... continue with Haldol titration 10/25 for the 1st time patient says AH is less bothersome; automobile and property underwriter cautiously optimistic and will continue with current treatment plan 10/26 AH back to bothersome, saying mean things...continued paranoid delusions, food is poisoned and not eating meals (eating some things prepared by nurse); will increase haldol to 10mg BID to see if this med can be effective 10/27 Patient did not sleep last night, more disorganized today, talking less. Patient said she has not good and AH remains. A little later on patient not talking but sticking her tongue out. Given Benadryl; protruding tongue ceased but it has not clear if this was dystonia or just bizarre behavior as patient really does not talk about it much. Will DC Haldol Will start Depakote; patient not sleeping and though not clearly manic disorganized; also mother is stabilized on Depakote Will also start Ativan 2 mg and likely schedule throughout the day as patient may have a touch of catatonia 10/28 psychotic delirium combined with med side-effect very tired from ativan; unlilkely catatonia but will keep in mind pt showered with prompting; asked automobile and property underwriter when she would go home but otherwise, not talking much will dc depakote; do med wash and then reassess med management approach 10/29 still quite disorganized but a little better than the day before; continues to have AH, paranoid delusions. Will continue holding medications and likely start Abilify tomorrow 10/30 patient is improved today, more organized, talking more, eating more. Says she is anxious; agrees to plan with Abilify -will start with Abilify 2 mg daily for couple days and then will advance to 5 mg 11/01/23 tolerating Abilify thus far. Continue with 2 mg today, increase to 5 mg 11/02/23. 11/02/2023: Continue current regimen and plans. Increasing Abilify tomorrow 11/03/2023: Continue current regimen and plans dx: -psychosis/joana -delirum -intellectual disability -hx ovarian cyst Plan: CV 15 min checks START Abilify 2mg daily; will advance to 5mg daily DC Ativan; has not helped, causing much drowsiness, making catatonia unlikely DC Depakote; will do med wash DC Haldol; not working, possibly causing dystonia. DC risperdal DC zyprexa prn dc'd depakote 500mg (pt refused so stopped) Hold: controldesogestrel-ethinyl estradiol [Apri] 0.15-0.03 mg tablet Hold: Auvelity 45-105 mg tablet,IR,delayed rel,biphasic (dextromethorphan bupropion) Other history: -Patient has had an IEP since she was in grade school, often in a therapeutic class environment; 1 on 1 help with all school work; mother says some developmental delay. -She does not think her daughter would be capable of obtaining or keeping a job. -Patient has had 1 friend from school throughout the past years, though the friendship recently ended; she has a lot of online friends. Patient also currently has a boyfriend that she met online but who visits. -Patient has history of intermittent refusal to drink fluids and maybe once every 6 months would end up coming to the hospital ED for dehydration. This was more common when she was in grade school and has only been a few times in the past year -med trials: Low-dose Zyprexa, Abilify; Vraylar, never ended up vortioxetine Reason for continued inpatient stay Substantial Risk for: harm to self and med/psych decompensation Time Spent With Patient Time: Total time managing care of this patient today ____ minutes.
[2023-11-03] MEDS: hydrOXYzine HCL 25 MG TABLET PO ×2 (11:36→18:53)
[2023-11-03 16:35] VITALS: BP 124/80; PULSE 80; RESP 16; TEMP 36.6; O2SAT 100
[2023-11-03 20:00] VITALS: BP 122/70; PULSE 110; TEMP 36.9
[2023-11-03] MEDS: traZODone HCL 50 MG TABLET PO ×2 (20:06→23:09)
[2023-11-03] MEDS: Famotidine 20 MG TABLET PO (20:06)
[2023-11-04] MEDS: Omeprazole 20 MG CAPSULE.DR PO (06:09)
[2023-11-04 07:30] VITALS: BP 127/81; PULSE 91; RESP 18; TEMP 36.6; O2SAT 98
--- NOTE | 2023-11-04 07:52 | P.PNPSI_ITS ---
Subjective Subjective Date of Service: 11/04/23 Reason For Visit: Depresssion Interim History: Met with patient; discussed with team; reviewed chart stil disorganized, standing aimlessly in hallway, internally preoccupied and having trouble answering questions. AH remains and said she heard gun shots, feeling afraid...putting her hands up and saying i won't flee... Mental Status Exam Mental Status Exam Narrative: Pt is alert and oriented; behavior is moderately disorganized; patient is not in distress; dressed in casual attire with unkempt hair but adequate hygiene; mood is described as not god and affect congruent, blunted; eye contact improved; Speech is impoverished; psychomotor retardation present combined with med side- effect; thought process is distracted; Thought content is on delusional, paranoid worries; denies any SI/HI. AH remains; Patients insight and judgment impaired. Diagnostics Vital Signs (24Hr): Vital Signs - 24 hr 11/03/23 16:35 11/03/23 20:00 Temperature 97.8 F 98.4 F Pulse Rate 80 110 H Respiratory Rate 16 Blood Pressure 124/80 122/70 Pulse Oximetry 100 Oxygen Delivery Method Room Air BMI result Body Mass Index 20.5 Labs 10/16/23 08:46 10/16/23 08:46 Imaging Radiology Impressions: ITS Impressions Head CT 10/08/23 21:15 IMPRESSION: Unremarkable CT scan of the head. No evidence of acute territorial infarct or hemorrhage. Pelvis Ultrasound 10/19/23 08:16 IMPRESSION: Very limited examination. Further evaluation with MRI of the pelvis as clinically warranted. There is a 4.3 cm simple appearing cyst in the left ovary that is almost certainly benign in a patient of this age and for which no imaging follow-up is recommended in an asymptomatic patient. If an acute ovarian pathology such as torsion is clinically suspected, further evaluation with MRI pelvis is recommended. Medications Medications Current Medications Acetaminophen (Acetaminophen 325 Mg Tablet) 650 mg PO Q6H PRN PRN Reason: Headache/Pain Mild Scale (1-3) Last Admin: 11/02/23 15:57 Dose: 650 mg Al Hydroxide/Mg Hydroxide (Magnesium Hydrox/Alum Hydrox 30 Ml Oral.Susp) 30 ml PO Q6H PRN PRN Reason: Heartburn/Nausea Last Admin: 10/27/23 10:10 Dose: 30 ml Aripiprazole (Aripiprazole 10 Mg Tablet) 10 mg PO DAILY [facility] Calcium Carbonate (Calcium Carbonate 750 Mg Tab.Chew) 750 mg PO Q4H PRN PRN Reason: Heartburn Last Admin: 10/27/23 10:11 Dose: 750 mg Clonidine HCl (Clonidine Hcl 0.1 Mg Tablet) 0.05 mg PO BID [facility]; Protocol Last Admin: 11/03/23 20:07 Dose: 0.05 mg Famotidine (Famotidine 20 Mg Tablet) 20 mg PO BEDTIME KRISTI Last Admin: 11/03/23 20:06 Dose: 20 mg Hydroxyzine HCl (Hydroxyzine Hcl 25 Mg Tablet) 25 mg PO Q6H PRN PRN Reason: Anxiety Last Admin: 11/03/23 18:53 Dose: 25 mg Magnesium Hydroxide (Milk Of Magnesia 30 Ml Oral.Susp) 30 ml PO DAILY PRN PRN Reason: Constipation Last Admin: 10/23/23 18:04 Dose: 30 ml Omeprazole (Omeprazole 20 Mg Capsule.Dr) 20 mg PO DAILY@0630 KRISTI Last Admin: 11/04/23 06:09 Dose: 20 mg Trazodone HCl (Trazodone Hcl 50 Mg Tablet) 50 mg PO BEDTIME MRX1 PRN PRN Reason: Insomnia Last Admin: 11/03/23 23:09 Dose: 50 mg Allergies Allergies Allergy/AdvReac Type Severity Reaction Status Date / Time metoprolol AdvReac Diarrhea Verified 10/07/23 23:43 Assessment & Plan Assessment & Plan (1) Psychosis: Status: Acute Code(s): F29 - Unspecified psychosis not due to a substance or known physiological condition (2) Delirium: Status: Suspected Code(s): R41.0 - Disorientation, unspecified (3) Intellectual disability: Status: Acute Code(s): F79 - Unspecified intellectual disabilities (4) Left ovarian cyst: Status: Acute Code(s): N83.202 - Unspecified ovarian cyst, left side (5) Major depressive disorder, recurrent episode, severe, with psychosis: Status: Acute Code(s): F33.3 - Major depressive disorder, recurrent, severe with psychotic symptoms (6) UTI (urinary tract infection): Status: Acute Code(s): N39.0 - Urinary tract infection, site not specified Plan 22 yo female with history of depression and anxiety admitted to due to rapid decompensation in context of recent covid infection. She is internally preoccupied and disorganized as well as almost mute with very few verbal utterances- whispering and mumbling. Recent history: Patient's mother, Latisha, says that prior to getting COVID September 28, patient was her regular self, without any history of psychotic or manic symptoms. Starting with COVID patient started to decompensate; about 5 days prior to the admission, patient was up all night, not sleeping at all, pacing the house and going into very is rooms in a disorganized manner; she was talking excessively and started complaining of auditory hallucinations (it was only once she got to the unit that she is expressed paranoid delusions). Mom says this is the 1st time patient has had any such manic episode. Mother says she herself has bipolar disorder, has been previously hospitalized and is stable on Depakote and Abilify. No other family history known Hx: -history of developmental delay; however no history of psychosis or manic episodes/behaviors prior to getting COVID infection this September 28 Impression: -it is possible that patient had some amount of COVID triggered encephalitis, maybe further complicated by UTI on admission. However, given mom's history of bipolar disorder combined with patient's current presentation (and absence of RDS, metabolic derangement, cardiac events-the lactic acid was elevated), it seems likely that this is a 1st manic break for patient. -at this time will treat for bipolar/psychosis Hospital course: 10/11/continue tx plan 10/12: Continue current management and treatment plan. 10/13: continue current management and treatment plan. 10/14 risperidone changed to liquid 10/15 continue tx plan; labs reordered, d/c antibiotic, encourage meals and fluids 10/16 Patient's mom currently present during interview. Patient gave clear verbal permission for web content writer to discuss case with her mother, both while patient was present and after patient left the room. -reviewed labs which are unremarkable -Prior to mom coming, Pt talking with peers, staff more freely though still often mumbling; when mom came patient became selectively mute, mumbling, started spitting into a basin. -Regarding mood patient said she is not good. When asked what she would like help with changing, she said to stop telling lies, but could not elaborate -Patient made some references that her family's trying to kill her or that her mom is trying to kill her; when web content writer asked her why she said because of the food, she was not supposed to eat it however she did... Patient could not clarify further. Patient was drinking water, saying she was thirsty. -Patient said she wanted to go home; said she was taking the medications as told, but accepted she would have to remain on the unit longer; patient decided to leave the room but not before she said that she thinks her mom is trying to get her killed. remains disorganized in speech and behavior with paranoid thinking; slept through the night; no manic symptoms -ordered Neuro consult to help r/o encephalitis 10/17 remains disorganized in speech and behavior, paranoid, guarded -discussed with Dr. Cornell who reports unlikely encephalitis (or due to Covid) and that given time elapsed since contracted Covid (sep 28), testing won't help much; recs doing pelvic ultrasound for teratoma (again unlikely) and getting EEG to see if any slowing; however, if anti-psychotics/mood stabilizers clear up symptoms, this would strongly point at an organic psychotic/manic origin. -per chart, pt does have hx of ovarian cyst Will continue w/ medication treatment; if does not clear up can begin to consider LP, MRI, anti-NDMA antibodies will get pelvic US and EEG (since non-invasive) 10/19/23 continue risperidone trial - no change as yet 10/20/23 improved more verbal ( mother not in today following her) co anxiety with elelvated hr and sometimes bp given prns clonidine, then aterax and clonazepam 10/20 pt remains w/ AH and paranoid delusion that mother wants her because she gave [food].. However, she is open to the idea that maybe she's mistaken, that her mind is playing tricks on her; also, she is more talkative and able to engage in conversation. She also showered and is drinking fluids more regularly (and eating a little better). She agrees to increase in Risperdal -mom came to visit; she thinks her daughter is about 5/10. -will increase risperdal (considered increasing depakote since likely bipolar, however no manic symptoms and prominent symptoms remain psychotic 3 little better; she feels so, she went to group and participated appropriately, talking more; however still with AH/paranoid delusions. will increase Riserpdal futrher 10/23/23 psychotic dx cont risperadol 10/23 no longer manic, but remains with intrusive AH and paranoid delusions (intermittently keeping her from eating) that have not lessened at all, despite being on Risperdal 7mg and Zyprexa (used as prn, but used frequently, up to 20mg). Likely risperdal +/- Zyprexa helped to quite some manic symptoms early on in admission (which soon fully resolved) but have not touched psychotic ones. Will dc both and start Haldol 10/24 remains with psychotic symptoms, AH, paranoid delusions... continue with Haldol titration 10/25 for the 1st time patient says AH is less bothersome; web content writer cautiously optimistic and will continue with current treatment plan 10/26 AH back to bothersome, saying mean things...continued paranoid delusions, food is poisoned and not eating meals (eating some things prepared by nurse); will increase haldol to 10mg BID to see if this med can be effective 10/27 Patient did not sleep last night, more disorganized today, talking less. Patient said she has not good and AH remains. A little later on patient not talking but sticking her tongue out. Given Benadryl; protruding tongue ceased but it has not clear if this was dystonia or just bizarre behavior as patient really does not talk about it much. Will DC Haldol Will start Depakote; patient not sleeping and though not clearly manic disorganized; also mother is stabilized on Depakote Will also start Ativan 2 mg and likely schedule throughout the day as patient may have a touch of catatonia 10/28 psychotic delirium combined with med side-effect very tired from ativan; unlilkely catatonia but will keep in mind pt showered with prompting; asked web content writer when she would go home but otherwise, not talking much will dc depakote; do med wash and then reassess med management approach 10/29 still quite disorganized but a little better than the day before; continues to have AH, paranoid delusions. Will continue holding medications and likely start Abilify tomorrow 10/30 patient is improved today, more organized, talking more, eating more. Says she is anxious; agrees to plan with Abilify -will start with Abilify 2 mg daily for couple days and then will advance to 5 mg 11/01/23 tolerating Abilify thus far. Continue with 2 mg today, increase to 5 mg 11/02/23. 11/02/2023: Continue current regimen and plans. Increasing Abilify tomorrow 11/03/2023: Continue current regimen and plans 11/03 Abilify recently increased to 10 mg; will add Ativan low-dose as p.r.n. for anxiety; will give Abilify longer to work before increasing dx: -psychosis/joana -delirum -intellectual disability -hx ovarian cyst Plan: CV 15 min checks Add Ativan 0.5 mg p.r.n. for anxiety Continue Abilify 10mg daily DC Ativan; has not helped, causing much drowsiness, making catatonia unlikely DC Depakote; will do med wash DC Haldol; not working, possibly causing dystonia. DC risperdal DC zyprexa prn dc'd depakote 500mg (pt refused so stopped) Hold: controldesogestrel-ethinyl estradiol [Apri] 0.15-0.03 mg tablet Hold: Auvelity 45-105 mg tablet,IR,delayed rel,biphasic (dextromethorphan bupropion) Other history: -Patient has had an IEP since she was in grade school, often in a therapeutic class environment; 1 on 1 help with all school work; mother says some developmental delay. -She does not think her daughter would be capable of obtaining or keeping a job. -Patient has had 1 friend from school throughout the past years, though the friendship recently ended; she has a lot of online friends. Patient also currently has a boyfriend that she met online but who visits. -Patient has history of intermittent refusal to drink fluids and maybe once every 6 months would end up coming to the hospital ED for dehydration. This was more common when she was in grade school and has only been a few times in the past year -med trials: Low-dose Zyprexa, Abilify; Vraylar, never ended up vortioxetine Patient educated on: diagnosis and medication risk/benefits Informed Consent: understands, does not understand and further education needed Reason for continued inpatient stay Substantial Risk for: inability to function Time Spent With Patient Time: Total time managing care of this patient today ____ minutes.
[2023-11-04] MEDS: cloNIDine HCL 0.1 MG TABLET 0.05 MG PO ×2 (08:14→20:57)
[2023-11-04] MEDS: ARIPiprazole 10 MG TABLET PO (08:14)
[2023-11-04 17:29] VITALS: BP 121/89; PULSE 125; RESP 18; TEMP 36.3; O2SAT 98
[2023-11-04] MEDS: LORazepam 0.5 MG TABLET PO (18:33)
[2023-11-04] MEDS: Famotidine 20 MG TABLET PO (20:57)
[2023-11-05] MEDS: Omeprazole 20 MG CAPSULE.DR PO (06:19)
[2023-11-05 08:21] VITALS: BP 109/73; PULSE 107; RESP 18; TEMP 36.4; O2SAT 97
--- NOTE | 2023-11-05 09:35 | HO.PSYCHPN ---
Subjective Subjective Date of Service: 11/05/23 Reason For Visit: Depresssion Interim History: met with patient; discussed with team Met with patient and mother together Patient talking much more freely, using full sentences and expressing her thoughts adequately; big contrast to prior days when she was so internally preoccupied it was difficult for her to talk. Despite this improvement, patient remains with significant paranoid delusions that she is a rapist and a terrorist and needs to discharge so that she can do the right thing and present to the police station so she can be imprisoned. Continued auditory hallucinations that she believes are telling her the truth, that this health technical writer is not a real physician, that his name is fake... Also continues to believe that food is poisoned and she has not eaten anything for 2 days, though she still feels okay about drinking water. She also says she refuses all medications going forward, that she does not want them and they are making her worse. Patient said she wanted to discharge. Credit Officer and mother all try to persuade her to stay but she said she needed to do the right thing meaning go to the police station and confess. Later today she did eat pizza but then made herself vomit, explaining to health technical writer that a combination of the voices told her and she thought it was poisoned. She still said she will eat [employer] if her mother brings it in Red erythematous area on right cheek, slightly raised; says it has a little bit itchy. Mom discussed that pt has hx of tachycardia. Mental Status Exam Mental Status Exam Narrative: Pt is alert and oriented; behavior is moderately disorganized; patient is not in distress; dressed in casual attire with unkempt hair but adequate hygiene; mood is described as not god and affect congruent, blunted; eye contact improved; Speech is impoverished; psychomotor retardation present combined with med side-effect; thought process is distracted; Thought content is on delusional, paranoid worries; denies any SI/HI. AH remains; Patients insight and judgment impaired. Diagnostics Vital Signs (24Hr): Vital Signs - 24 hr 11/04/23 17:29 11/05/23 08:21 Temperature 97.4 F 97.6 F Pulse Rate 125 H 107 H Respiratory Rate 18 18 Blood Pressure 121/89 109/73 Pulse Oximetry 98 97 Oxygen Delivery Method Room Air Room Air BMI result Body Mass Index 20.5 Labs 10/16/23 08:46 11/07/23 19:29 Imaging Radiology Impressions: ITS Impressions Head CT 10/08/23 21:15 IMPRESSION: Unremarkable CT scan of the head. No evidence of acute territorial infarct or hemorrhage. Pelvis Ultrasound 10/19/23 08:16 IMPRESSION: Very limited examination. Further evaluation with MRI of the pelvis as clinically warranted. There is a 4.3 cm simple appearing cyst in the left ovary that is almost certainly benign in a patient of this age and for which no imaging follow-up is recommended in an asymptomatic patient. If an acute ovarian pathology such as torsion is clinically suspected, further evaluation with MRI pelvis is recommended. Medications Medications Current Medications Acetaminophen (Acetaminophen 325 Mg Tablet) 650 mg PO Q6H PRN PRN Reason: Headache/Pain Mild Scale (1-3) Last Admin: 11/02/23 15:57 Dose: 650 mg Al Hydroxide/Mg Hydroxide (Magnesium Hydrox/Alum Hydrox 30 Ml Oral.Susp) 30 ml PO Q6H PRN PRN Reason: Heartburn/Nausea Last Admin: 10/27/23 10:10 Dose: 30 ml Aripiprazole (Aripiprazole 15 Mg Tablet) 15 mg PO DAILY KRISTI Calcium Carbonate (Calcium Carbonate 750 Mg Tab.Chew) 750 mg PO Q4H PRN PRN Reason: Heartburn Last Admin: 10/27/23 10:11 Dose: 750 mg Clonidine HCl (Clonidine Hcl 0.1 Mg Tablet) 0.05 mg PO BID KRISTI; Protocol Last Admin: 11/04/23 20:57 Dose: 0.05 mg Famotidine (Famotidine 20 Mg Tablet) 20 mg PO BEDTIME KRISTI Last Admin: 11/04/23 20:57 Dose: 20 mg Hydroxyzine HCl (Hydroxyzine Hcl 25 Mg Tablet) 25 mg PO Q6H PRN PRN Reason: Anxiety Last Admin: 11/03/23 18:53 Dose: 25 mg Lorazepam (Lorazepam 0.5 Mg Tablet) 0.5 mg PO Q6H PRN PRN Reason: anxiety Last Admin: 11/04/23 18:33 Dose: 0.5 mg Magnesium Hydroxide (Milk Of Magnesia 30 Ml Oral.Susp) 30 ml PO DAILY PRN PRN Reason: Constipation Last Admin: 10/23/23 18:04 Dose: 30 ml Omeprazole (Omeprazole 20 Mg Capsule.Dr) 20 mg PO DAILY@0630 KRISTI Last Admin: 11/05/23 06:19 Dose: 20 mg Trazodone HCl (Trazodone Hcl 50 Mg Tablet) 50 mg PO BEDTIME MRX1 PRN PRN Reason: Insomnia Last Admin: 11/03/23 23:09 Dose: 50 mg Allergies Allergies Allergy/AdvReac Type Severity Reaction Status Date / Time metoprolol AdvReac Diarrhea Verified 10/07/23 23:43 Assessment & Plan Assessment & Plan (1) Psychosis: Status: Acute Code(s): F29 - Unspecified psychosis not due to a substance or known physiological condition (2) Delirium: Status: Suspected Code(s): R41.0 - Disorientation, unspecified (3) Intellectual disability: Status: Acute Code(s): F79 - Unspecified intellectual disabilities (4) Left ovarian cyst: Status: Acute Code(s): N83.202 - Unspecified ovarian cyst, left side (5) Major depressive disorder, recurrent episode, severe, with psychosis: Status: Acute Code(s): F33.3 - Major depressive disorder, recurrent, severe with psychotic symptoms (6) UTI (urinary tract infection): Status: Acute Code(s): N39.0 - Urinary tract infection, site not specified Plan 22 yo female with history of depression and anxiety admitted to due to rapid decompensation in context of recent covid infection. She is internally preoccupied and disorganized as well as almost mute with very few verbal utterances- whispering and mumbling. Recent history: Patient's mother, Latisha, says that prior to getting COVID September 28, patient was her regular self, without any history of psychotic or manic symptoms. Starting with COVID patient started to decompensate; about 5 days prior to the admission, patient was up all night, not sleeping at all, pacing the house and going into very is rooms in a disorganized manner; she was talking excessively and started complaining of auditory hallucinations (it was only once she got to the unit that she is expressed paranoid delusions). Mom says this is the 1st time patient has had any such manic episode. Mother says she herself has bipolar disorder, has been previously hospitalized and is stable on Depakote and Abilify. No other family history known Hx: -history of developmental delay; however no history of psychosis or manic episodes/behaviors prior to getting COVID infection this September 28 Impression: -it is possible that patient had some amount of COVID triggered encephalitis, maybe further complicated by UTI on admission. However, given mom's history of bipolar disorder combined with patient's current presentation (and absence of RDS, metabolic derangement, cardiac events-the lactic acid was elevated), it seems likely that this is a 1st manic break for patient. -at this time will treat for bipolar/psychosis Hospital course: 10/11/continue tx plan 10/12: Continue current management and treatment plan. 10/13: continue current management and treatment plan. 10/14 risperidone changed to liquid 10/15 continue tx plan; labs reordered, d/c antibiotic, encourage meals and fluids 10/16 Patient's mom currently present during interview. Patient gave clear verbal permission for health technical writer to discuss case with her mother, both while patient was present and after patient left the room. -reviewed labs which are unremarkable -Prior to mom coming, Pt talking with peers, staff more freely though still often mumbling; when mom came patient became selectively mute, mumbling, started spitting into a basin. -Regarding mood patient said she is not good. When asked what she would like help with changing, she said to stop telling lies, but could not elaborate -Patient made some references that her family's trying to kill her or that her mom is trying to kill her; when health technical writer asked her why she said because of the food, she was not supposed to eat it however she did... Patient could not clarify further. Patient was drinking water, saying she was thirsty. -Patient said she wanted to go home; said she was taking the medications as told, but accepted she would have to remain on the unit longer; patient decided to leave the room but not before she said that she thinks her mom is trying to get her killed. remains disorganized in speech and behavior with paranoid thinking; slept through the night; no manic symptoms -ordered Neuro consult to help r/o encephalitis 10/17 remains disorganized in speech and behavior, paranoid, guarded -discussed with Dr. Cornell who reports unlikely encephalitis (or due to Covid) and that given time elapsed since contracted Covid (sep 28), testing won't help much; recs doing pelvic ultrasound for teratoma (again unlikely) and getting EEG to see if any slowing; however, if anti-psychotics/mood stabilizers clear up symptoms, this would strongly point at an organic psychotic/manic origin. -per chart, pt does have hx of ovarian cyst Will continue w/ medication treatment; if does not clear up can begin to consider LP, MRI, anti-NDMA antibodies will get pelvic US and EEG (since non-invasive) 10/19/23 continue risperidone trial - no change as yet 10/20/23 improved more verbal ( mother not in today following her) co anxiety with elelvated hr and sometimes bp given prns clonidine, then aterax and clonazepam 10/20 pt remains w/ AH and paranoid delusion that mother wants her because she gave [food].. However, she is open to the idea that maybe she's mistaken, that her mind is playing tricks on her; also, she is more talkative and able to engage in conversation. She also showered and is drinking fluids more regularly (and eating a little better). She agrees to increase in Risperdal -mom came to visit; she thinks her daughter is about 5/10. -will increase risperdal (considered increasing depakote since likely bipolar, however no manic symptoms and prominent symptoms remain psychotic 10/21 little better; she feels so, she went to group and participated appropriately, talking more; however still with AH/paranoid delusions. will increase Riserpdal futrher 10/23/23 psychotic dx cont risperadol 10/23 no longer manic, but remains with intrusive AH and paranoid delusions (intermittently keeping her from eating) that have not lessened at all, despite being on Risperdal 7mg and Zyprexa (used as prn, but used frequently, up to 20mg). Likely risperdal +/- Zyprexa helped to quite some manic symptoms early on in admission (which soon fully resolved) but have not touched psychotic ones. Will dc both and start Haldol 10/24 remains with psychotic symptoms, AH, paranoid delusions... continue with Haldol titration 10/25 for the 1st time patient says AH is less bothersome; health technical writer cautiously optimistic and will continue with current treatment plan 10/26 AH back to bothersome, saying mean things...continued paranoid delusions, food is poisoned and not eating meals (eating some things prepared by nurse); will increase haldol to 10mg BID to see if this med can be effective 10/27 Patient did not sleep last night, more disorganized today, talking less. Patient said she has not good and AH remains. A little later on patient not talking but sticking her tongue out. Given Benadryl; protruding tongue ceased but it has not clear if this was dystonia or just bizarre behavior as patient really does not talk about it much. Will DC Haldol Will start Depakote; patient not sleeping and though not clearly manic disorganized; also mother is stabilized on Depakote Will also start Ativan 2 mg and likely schedule throughout the day as patient may have a touch of catatonia 10/28 psychotic delirium combined with med side-effect very tired from ativan; unlilkely catatonia but will keep in mind pt showered with prompting; asked health technical writer when she would go home but otherwise, not talking much will dc depakote; do med wash and then reassess med management approach 10/29 still quite disorganized but a little better than the day before; continues to have AH, paranoid delusions. Will continue holding medications and likely start Abilify tomorrow 10/30 patient is improved today, more organized, talking more, eating more. Says she is anxious; agrees to plan with Abilify -will start with Abilify 2 mg daily for couple days and then will advance to 5 mg 11/01/23 tolerating Abilify thus far. Continue with 2 mg today, increase to 5 mg 11/02/23. 11/02/2023: Continue current regimen and plans. Increasing Abilify tomorrow 11/03/2023: Continue current regimen and plans 11/03 Abilify recently increased to 10 mg; will add Ativan low-dose as p.r.n. for anxiety; will give Abilify longer to work before increasing (mother is treated with both Abilify and Depakote) 11/04 Patient talking much more freely, using full sentences and expressing her thoughts adequately; big contrast to prior days when she was so internally preoccupied it was difficult for her to talk. Unfortunately, patient remains with significant paranoid delusions that she is a rapist and a terrorist and needs to discharge so that she can do the right thing and present to the police station so she can be imprisoned. Continued auditory hallucinations that she believes are telling her the truth, that this health technical writer is not a real physician, that his name is fake... Also continues to believe that food is poisoned and she has not eaten anything for 2 days, though she still feels okay about drinking water. She also says she refuses all medications going forward, that she does not want them and they are making her worse. -Later today she did eat pizza but then made herself vomit, explaining to health technical writer that a combination of the voices told her and she thought it was poisoned. She still said she will eat [employer] if her mother brings it in -Red erythematous area on right cheek, slightly raised; says it has a little bit itchy. Will monitor; not warm to the touch, no signs of infection, no signs of trauma, open skin and does not appear to be a cellulitis -mother present and tried to persuade patient to stay on the unit and engaged in treatment; health technical writer continue to encourage patient to take medication and since she is talking much better today, health technical writer thinks that perhaps Abilify actually working (and hopefully not causing a medication rash on her cheek). -patient is refusing medication and refusing food both due to severe paranoid delusions and auditory hallucinations. She is asking about discharge so she can self present to the police thinking she is committed heinous crimes (thinks she may have raped someone, but is not sure...) -discussed further with her mother who agrees patient likely needs to be involuntary committed if she has not open to treatment; discussed various medication approaches but also discussed possibility of ECT which mother agrees with if needed. -health technical writer will again discuss with neurologist since patient's progress plateaued despite medication; mom said that patient had an had MRI when she was about 14 years old to rule out tumor; history of ovarian cyst left side -Excerpts from neurology note 10/18/23 slow in all of her responses, both physical and verbal, and cognitive.. ...oriented to person, place, month and year; her address, her high school and when she graduated and how she spends her time at home; answers questions appropriately ...Speech is fluent and clear although slow. Cranial nerves II through XII are normal. Muscle tone and strength are normal. Reflexes symmetrical. Plantar response are flexor. Neck is supple ...I do not see any major signs to sufggest an encephalopathy. CT brain is normal. Labs unremarkable. EEG (10/21/23) Impression: This waking and briefly drowsy EEG is considered within normal limits Working Formulation: Prior to admission, mother reports patient had what sounds like some manic behavior, not sleeping, pacing; Patient presented with disorganized behavior, AH and paranoid delusions. On admission she was started on antipsychotic medication and quickly had some improvement, no longer placing herself on the floor, talking, eating and drinking and a little more organized. Credit Officer discussed case with Neurologist Dr. Oconnor who met with patient and agreed that although patient had no prior history of manic/psychotic behavior and this onset coincided with donal COVID, there was at this point low concern for encephalopathy; her mother has bipolar disorder, patient has a history of psychiatric issues and presentation is in line with 1st break joana/psychosis. And although She soon plateaued health technical writer considered that her initial improvement was due to medication response which per discussion with Dr. 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 -At this time it seems that patient has failed Risperdal, Zyprexa and Haldol. Abilify may have been working, but she has since decided to refuse all medication. -patient does have some catatonic like features however Ativan trial did not alleviate any symptoms and she refuses to continue with it -Given that patient is not getting better, remains floridly psychotic, disorganized, refusing medication...not eating any food due to persistent paranoid delusions and auditory hallucinations and wanting to discharge, will again pursue if there is possibly a contributing neurological component. ECT is also an option as there is no absolute contraindication, thus far patient seems to be refractory to medication and she has some catatonic symptoms as well. Will likely file for involuntary commitment and substituted judgment as well -thankfully patient is adequately drinking fluids dx: -psychosis/joana -delirum -intellectual disability -hx ovarian cyst Plan: 3 day notice (to be placed) 15 min checks Ativan 0.5 mg p.r.n. for anxiety Continue Abilify 10mg daily DC Ativan; has not helped, causing much drowsiness, making catatonia unlikely DC Depakote; will do med wash DC Haldol; not working, possibly causing dystonia. DC risperdal DC zyprexa prn; though patient was taking frequently dc'd depakote 500mg (pt refused so stopped) Hold: controldesogestrel-ethinyl estradiol [Apri] 0.15-0.03 mg tablet Hold: Auvelity 45-105 mg tablet,IR,delayed rel,biphasic (dextromethorphan bupropion) Other history: -Patient has had an IEP since she was in grade school, often in a therapeutic class environment; 1 on 1 help with all school work; mother says some developmental delay. -She does not think her daughter would be capable of obtaining or keeping a job. -Patient has had 1 friend from school throughout the past years, though the friendship recently ended; she has a lot of online friends. Patient also currently has a boyfriend that she met online but who visits. -Patient has history of intermittent refusal to drink fluids and maybe once every 6 months would end up coming to the hospital ED for dehydration. This was more common when she was in grade school and has only been a few times in the past year -med trials: Low-dose Zyprexa, Abilify; Vraylar, never ended up vortioxetine Patient educated on: diagnosis, medication risk/benefits and ECT Informed Consent: does not understand Reason for continued inpatient stay Substantial Risk for: inability to function Time Spent With Patient Time: Total time managing care of this patient today ____ minutes.
[2023-11-05 16:10] VITALS: BP 140/95; PULSE 158; RESP 18; TEMP 36.7; O2SAT 99
[2023-11-06 08:02] VITALS: BP 130/84; PULSE 140; RESP 16; TEMP 36.1; O2SAT 96
--- NOTE | 2023-11-06 08:43 | PC.NURSE ---
Pt refused all scheduled medications. Elevated pulse noted. Even with encouragement pt would not take scheduled Clonidine. Provider made aware.
--- NOTE | 2023-11-06 09:41 | HO.PSYCHPN ---
Subjective Subjective Date of Service: 11/06/23 Reason For Visit: Depresssion Interim History: Met with patient; discussed with team No change in presentation. As typewriters functional tester approached patient she asked if her mother had again... Nursing reports the same that all attempts to engage patient result with her saying mom . not eating; no sleep and overnight, paranoid her roommate would kill her and was seen standing over her roommate during the night wandering aimlessly in the milieu Again refused all medication Tachycardia rash on right cheek resolving Mental Status Exam Mental Status Exam Narrative: Pt is alert and oriented; behavior is disorganized; patient is not in distress; dressed in casual attire with unkempt hair but adequate hygiene; mood is described as anxious and affect blunted; eye contact limited; Speech is impoverished; psychomotor retardation present; speech is slow, soft though normal prosody; thought process able to be goal oriented; Thought content is on delusional, paranoid worries; denies any SI/HI. AH remains; Patients insight and judgment impaired. Diagnostics Vital Signs (24Hr): Vital Signs - 24 hr 11/05/23 16:10 11/06/23 08:02 Temperature 98.0 F 96.9 F Pulse Rate 158 H 140 H Respiratory Rate 18 16 Blood Pressure 140/95 H 130/84 Pulse Oximetry 99 96 Oxygen Delivery Method Room Air Room Air BMI result Body Mass Index 20.5 Labs 10/16/23 08:46 11/07/23 19:29 Imaging Radiology Impressions: ITS Impressions Head CT 10/08/23 21:15 IMPRESSION: Unremarkable CT scan of the head. No evidence of acute territorial infarct or hemorrhage. Pelvis Ultrasound 10/19/23 08:16 IMPRESSION: Very limited examination. Further evaluation with MRI of the pelvis as clinically warranted. There is a 4.3 cm simple appearing cyst in the left ovary that is almost certainly benign in a patient of this age and for which no imaging follow-up is recommended in an asymptomatic patient. If an acute ovarian pathology such as torsion is clinically suspected, further evaluation with MRI pelvis is recommended. Medications Medications Current Medications Acetaminophen (Acetaminophen 325 Mg Tablet) 650 mg PO Q6H PRN PRN Reason: Headache/Pain Mild Scale (1-3) Last Admin: 11/02/23 15:57 Dose: 650 mg Al Hydroxide/Mg Hydroxide (Magnesium Hydrox/Alum Hydrox 30 Ml Oral.Susp) 30 ml PO Q6H PRN PRN Reason: Heartburn/Nausea Last Admin: 10/27/23 10:10 Dose: 30 ml Aripiprazole (Aripiprazole 10 Mg Tablet) 10 mg PO DAILY [facility] Last Admin: 11/06/23 08:37 Dose: Not Given Calcium Carbonate (Calcium Carbonate 750 Mg Tab.Chew) 750 mg PO Q4H PRN PRN Reason: Heartburn Last Admin: 10/27/23 10:11 Dose: 750 mg Clonidine HCl (Clonidine Hcl 0.1 Mg Tablet) 0.05 mg PO BID [facility]; Protocol Last Admin: 11/06/23 08:37 Dose: Not Given Famotidine (Famotidine 20 Mg Tablet) 20 mg PO BEDTIME [facility] Last Admin: 11/05/23 19:48 Dose: Not Given Hydroxyzine HCl (Hydroxyzine Hcl 25 Mg Tablet) 25 mg PO Q6H PRN PRN Reason: Anxiety Last Admin: 11/03/23 18:53 Dose: 25 mg Lorazepam (Lorazepam 0.5 Mg Tablet) 0.5 mg PO Q6H PRN PRN Reason: anxiety Last Admin: 11/04/23 18:33 Dose: 0.5 mg Magnesium Hydroxide (Milk Of Magnesia 30 Ml Oral.Susp) 30 ml PO DAILY PRN PRN Reason: Constipation Last Admin: 10/23/23 18:04 Dose: 30 ml Omeprazole (Omeprazole 20 Mg Capsule.Dr) 20 mg PO DAILY@0630 [facility] Last Admin: 11/06/23 08:37 Dose: Not Given Trazodone HCl (Trazodone Hcl 50 Mg Tablet) 50 mg PO BEDTIME MRX1 PRN PRN Reason: Insomnia Last Admin: 11/03/23 23:09 Dose: 50 mg Allergies Allergies Allergy/AdvReac Type Severity Reaction Status Date / Time metoprolol AdvReac Diarrhea Verified 10/07/23 23:43 Assessment & Plan Assessment & Plan (1) Psychosis: Status: Acute Code(s): F29 - Unspecified psychosis not due to a substance or known physiological condition (2) Delirium: Status: Suspected Code(s): R41.0 - Disorientation, unspecified (3) Intellectual disability: Status: Acute Code(s): F79 - Unspecified intellectual disabilities (4) Left ovarian cyst: Status: Acute Code(s): N83.202 - Unspecified ovarian cyst, left side (5) Major depressive disorder, recurrent episode, severe, with psychosis: Status: Acute Code(s): F33.3 - Major depressive disorder, recurrent, severe with psychotic symptoms (6) UTI (urinary tract infection): Status: Acute Code(s): N39.0 - Urinary tract infection, site not specified Plan 22 yo female with history of depression and anxiety admitted to due to rapid decompensation in context of recent covid infection. She is internally preoccupied and disorganized as well as almost mute with very few verbal utterances- whispering and mumbling. Recent history: Patient's mother, Latisha, says that prior to getting COVID September 28, patient was her regular self, without any history of psychotic or manic symptoms. Starting with COVID patient started to decompensate; about 5 days prior to the admission, patient was up all night, not sleeping at all, pacing the house and going into very is rooms in a disorganized manner; she was talking excessively and started complaining of auditory hallucinations (it was only once she got to the unit that she is expressed paranoid delusions). Mom says this is the 1st time patient has had any such manic episode. Mother says she herself has bipolar disorder, has been previously hospitalized and is stable on Depakote and Abilify. No other family history known Hx: -history of developmental delay; however no history of psychosis or manic episodes/behaviors prior to getting COVID infection this September 28 Impression: -it is possible that patient had some amount of COVID triggered encephalitis, maybe further complicated by UTI on admission. However, given mom's history of bipolar disorder combined with patient's current presentation (and absence of RDS, metabolic derangement, cardiac events-the lactic acid was elevated), it seems likely that this is a 1st manic break for patient. -at this time will treat for bipolar/psychosis Hospital course: 10/11/continue tx plan 10/12: Continue current management and treatment plan. 10/13: continue current management and treatment plan. 10/14 risperidone changed to liquid 10/15 continue tx plan; labs reordered, d/c antibiotic, encourage meals and fluids 10/16 Patient's mom currently present during interview. Patient gave clear verbal permission for typewriters functional tester to discuss case with her mother, both while patient was present and after patient left the room. -reviewed labs which are unremarkable -Prior to mom coming, Pt talking with peers, staff more freely though still often mumbling; when mom came patient became selectively mute, mumbling, started spitting into a basin. -Regarding mood patient said she is not good. When asked what she would like help with changing, she said to stop telling lies, but could not elaborate -Patient made some references that her family's trying to kill her or that her mom is trying to kill her; when typewriters functional tester asked her why she said because of the food, she was not supposed to eat it however she did... Patient could not clarify further. Patient was drinking water, saying she was thirsty. -Patient said she wanted to go home; said she was taking the medications as told, but accepted she would have to remain on the unit longer; patient decided to leave the room but not before she said that she thinks her mom is trying to get her killed. remains disorganized in speech and behavior with paranoid thinking; slept through the night; no manic symptoms -ordered Neuro consult to help r/o encephalitis 10/17 remains disorganized in speech and behavior, paranoid, guarded -discussed with Dr. Cornell who reports unlikely encephalitis (or due to Covid) and that given time elapsed since contracted Covid (sep 28), testing won't help much; recs doing pelvic ultrasound for teratoma (again unlikely) and getting EEG to see if any slowing; however, if anti-psychotics/mood stabilizers clear up symptoms, this would strongly point at an organic psychotic/manic origin. -per chart, pt does have hx of ovarian cyst Will continue w/ medication treatment; if does not clear up can begin to consider LP, MRI, anti-NDMA antibodies will get pelvic US and EEG (since non-invasive) 10/19/23 continue risperidone trial - no change as yet 10/20/23 improved more verbal ( mother not in today following her) co anxiety with elelvated hr and sometimes bp given prns clonidine, then aterax and clonazepam 10/20 pt remains w/ AH and paranoid delusion that mother wants her because she gave [food].. However, she is open to the idea that maybe she's mistaken, that her mind is playing tricks on her; also, she is more talkative and able to engage in conversation. She also showered and is drinking fluids more regularly (and eating a little better). She agrees to increase in Risperdal -mom came to visit; she thinks her daughter is about 12. -will increase risperdal (considered increasing depakote since likely bipolar, however no manic symptoms and prominent symptoms remain psychotic 10/21 little better; she feels so, she went to group and participated appropriately, talking more; however still with AH/paranoid delusions. will increase Riserpdal futrher 10/23/23 psychotic dx cont risperadol 10/23 no longer manic, but remains with intrusive AH and paranoid delusions (intermittently keeping her from eating) that have not lessened at all, despite being on Risperdal 7mg and Zyprexa (used as prn, but used frequently, up to 20mg). Likely risperdal +/- Zyprexa helped to quite some manic symptoms early on in admission (which soon fully resolved) but have not touched psychotic ones. Will dc both and start Haldol 10/24 remains with psychotic symptoms, AH, paranoid delusions... continue with Haldol titration 10/25 for the 1st time patient says AH is less bothersome; typewriters functional tester cautiously optimistic and will continue with current treatment plan 10/26 AH back to bothersome, saying mean things...continued paranoid delusions, food is poisoned and not eating meals (eating some things prepared by nurse); will increase haldol to 10mg BID to see if this med can be effective 10/27 Patient did not sleep last night, more disorganized today, talking less. Patient said she has not good and AH remains. A little later on patient not talking but sticking her tongue out. Given Benadryl; protruding tongue ceased but it has not clear if this was dystonia or just bizarre behavior as patient really does not talk about it much. Will DC Haldol Will start Depakote; patient not sleeping and though not clearly manic disorganized; also mother is stabilized on Depakote Will also start Ativan 2 mg and likely schedule throughout the day as patient may have a touch of catatonia 10/28 psychotic delirium combined with med side-effect very tired from ativan; unlilkely catatonia but will keep in mind pt showered with prompting; asked typewriters functional tester when she would go home but otherwise, not talking much will dc depakote; do med wash and then reassess med management approach 10/29 still quite disorganized but a little better than the day before; continues to have AH, paranoid delusions. Will continue holding medications and likely start Abilify tomorrow 10/30 patient is improved today, more organized, talking more, eating more. Says she is anxious; agrees to plan with Abilify -will start with Abilify 2 mg daily for couple days and then will advance to 5 mg 11/01/23 tolerating Abilify thus far. Continue with 2 mg today, increase to 5 mg 11/02/23. 11/02/2023: Continue current regimen and plans. Increasing Abilify tomorrow 11/03/2023: Continue current regimen and plans 11/03 Abilify recently increased to 10 mg; will add Ativan low-dose as p.r.n. for anxiety; will give Abilify longer to work before increasing (mother is treated with both Abilify and Depakote) 11/04 Patient talking much more freely, using full sentences and expressing her thoughts adequately; big contrast to prior days when she was so internally preoccupied it was difficult for her to talk. Unfortunately, patient remains with significant paranoid delusions that she is a rapist and a terrorist and needs to discharge so that she can do the right thing and present to the police station so she can be imprisoned. Continued auditory hallucinations that she believes are telling her the truth, that this typewriters functional tester is not a real physician, that his name is fake... Also continues to believe that food is poisoned and she has not eaten anything for 2 days, though she still feels okay about drinking water. She also says she refuses all medications going forward, that she does not want them and they are making her worse. -Later today she did eat pizza but then made herself vomit, explaining to typewriters functional tester that a combination of the voices told her and she thought it was poisoned. She still said she will eat [employer] if her mother brings it in -Red erythematous area on right cheek, slightly raised; says it has a little bit itchy. Will monitor; not warm to the touch, no signs of infection, no signs of trauma, open skin and does not appear to be a cellulitis -mother present and tried to persuade patient to stay on the unit and engaged in treatment; typewriters functional tester continue to encourage patient to take medication and since she is talking much better today, typewriters functional tester thinks that perhaps Abilify actually working (and hopefully not causing a medication rash on her cheek). -patient is refusing medication and refusing food both due to severe paranoid delusions and auditory hallucinations. She is asking about discharge so she can self present to the police thinking she is committed heinous crimes (thinks she may have raped someone, but is not sure...) -discussed further with her mother who agrees patient likely needs to be involuntary committed if she has not open to treatment; discussed various medication approaches but also discussed possibility of ECT which mother agrees with if needed. -typewriters functional tester will again discuss with neurologist since patient's progress plateaued despite medication; mom said that patient had an had MRI when she was about 14 years old to rule out tumor; history of ovarian cyst left side -Excerpts from neurology note 10/18/23 slow in all of her responses, both physical and verbal, and cognitive.. ...oriented to person, place, month and year; her address, her high school and when she graduated and how she spends her time at home; answers questions appropriately ...Speech is fluent and clear although slow. Cranial nerves II through XII are normal. Muscle tone and strength are normal. Reflexes symmetrical. Plantar response are flexor. Neck is supple ...I do not see any major signs to sufggest an encephalopathy. CT brain is normal. Labs unremarkable. EEG (10/21/23) Impression: This waking and briefly drowsy EEG is considered within normal limits 11/05 Same presentation; rash on right cheek improved -discussing benson mendez Working Formulation: Prior to admission, mother reports patient had what sounds like some manic behavior, not sleeping, pacing; Patient presented with disorganized behavior, AH and paranoid delusions. On admission she was started on antipsychotic medication and quickly had some improvement, no longer placing herself on the floor, talking, eating and drinking and a little more organized. Tool Engineer discussed case with Neurologist Dr. Oconnor who met with patient and agreed that although patient had no prior history of manic/psychotic behavior and this onset coincided with donal COVID, there was at this point low concern for encephalopathy; her mother has bipolar disorder, patient has a history of psychiatric issues and presentation is in line with 1st break joana/psychosis. And although She soon plateaued typewriters functional tester considered that her initial improvement was due to medication response which per discussion with Dr. 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 -At this time it seems that patient has failed Risperdal, Zyprexa and Haldol. Abilify may have been working, but she has since decided to refuse all medication. -patient does have some catatonic like features however Ativan trial did not alleviate any symptoms and she refuses to continue with it -Given that patient is not getting better, remains floridly psychotic, disorganized, refusing medication...not eating any food due to persistent paranoid delusions and auditory hallucinations and wanting to discharge, will again pursue if there is possibly a contributing neurological component. ECT is also an option as there is no absolute contraindication, thus far patient seems to be refractory to medication and she has some catatonic symptoms as well. Will likely file for involuntary commitment and substituted judgment as well -thankfully patient is adequately drinking fluids dx: -psychosis/joana -delirum -intellectual disability -hx ovarian cyst Plan: 3 day notice 15 min checks Ativan 0.5 mg p.r.n. for anxiety Continue Abilify 10mg daily DC Ativan; has not helped, causing much drowsiness, making catatonia unlikely DC Depakote; will do med wash DC Haldol; not working, possibly causing dystonia. DC risperdal DC zyprexa prn; though patient was taking frequently dc'd depakote 500mg (pt refused so stopped) Hold: controldesogestrel-ethinyl estradiol [Apri] 0.15-0.03 mg tablet Hold: Auvelity 45-105 mg tablet,IR,delayed rel,biphasic (dextromethorphan bupropion) Other history: -Patient has had an IEP since she was in grade school, often in a therapeutic class environment; 1 on 1 help with all school work; mother says some developmental delay. -She does not think her daughter would be capable of obtaining or keeping a job. -Patient has had 1 friend from school throughout the past years, though the friendship recently ended; she has a lot of online friends. Patient also currently has a boyfriend that she met online but who visits. -Patient has history of intermittent refusal to drink fluids and maybe once every 6 months would end up coming to the hospital ED for dehydration. This was more common when she was in grade school and has only been a few times in the past year -med trials: Low-dose Zyprexa, Abilify; Vraylar, never ended up vortioxetine Patient educated on: diagnosis and medication risk/benefits Informed Consent: does not understand Reason for continued inpatient stay Substantial Risk for: inability to function Time Spent With Patient Time: Total time managing care of this patient today ____ minutes.
[2023-11-06 09:42] VITALS: PULSE 144; RESP 18
--- NOTE | 2023-11-06 09:45 | PC.NURSE ---
Pt's pulse continues to be elevated with pulse 140s while standing. Pt continues to refuse scheduled medication, including Clonidine. Pt walking unit, and was encouraged to sit and rest. Provider made aware.
[2023-11-06 12:42] VITALS: PULSE 137; RESP 16
[2023-11-06] MEDS: LORazepam 0.5 MG TABLET PO (16:14)
[2023-11-06 18:00] VITALS: BP 129/86; PULSE 116; TEMP 36.4; O2SAT 100
[2023-11-06] MEDS: Famotidine 20 MG TABLET PO (20:50)
[2023-11-06] MEDS: cloNIDine HCL 0.1 MG TABLET 0.05 MG PO (20:50)
[2023-11-07 07:00] VITALS: BMI 26.8
[2023-11-07 08:00] VITALS: BP 135/91; PULSE 137; RESP 18; TEMP 36; O2SAT 97
[2023-11-07] MEDS: cloNIDine HCL 0.1 MG TABLET 0.05 MG PO ×2 (08:04→19:40)
--- NOTE | 2023-11-07 09:39 | HO.PSYCHPN ---
Subjective Subjective Date of Service: 11/07/23 Reason For Visit: Depresssion Interim History: Met with patient; discussed with team No change in presentation and she continues to be disorganized, expressing paranoid delusions, asking if her mother is , saying that she murdered a lot of people she thinks...; expert medical writer again asked if patient would take medication and she again said no I have tried that already and it does not help... Patient is overall much less conversant and seems to be headed back towards mute Not eating; drinking fluids. -expert medical writer discussed MRI with patient who agreed to it/consented. Discussed history with patient who was able to answer questions; discussed same with mother who corroborated patient's answers. -Place neuro consult; texted neurologist and waiting to hear back -Patient already had pelvic ultrasound; discussed with animal caretaker supervisor who said for a better view of ovaries would need to do intervaginal ultrasound. At this point expert medical writer and staff agree this would likely be too traumatizing for patient and will hold off ordering for now Mental Status Exam Mental Status Exam Narrative: Pt is alert and oriented; behavior is disorganized; patient is not in distress; dressed in casual attire with unkempt hair but adequate hygiene (showered); mood is described as anxious and affect blunted; eye contact limited; Speech is impoverished; psychomotor retardation present; speech becoming more mute; when talks speech is slow, soft though normal prosody; thought process able to be goal oriented; Thought content is on delusional, paranoid worries; denies any SI/HI. AH remains; Patients insight and judgment impaired. Diagnostics Vital Signs (24Hr): Vital Signs - 24 hr 11/06/23 09:42 11/06/23 12:42 11/06/23 18:00 Temperature 97.5 F Pulse Rate 144 H 137 H 116 H Respiratory Rate 18 16 Blood Pressure 129/86 Pulse Oximetry 100 Oxygen Delivery Method Room Air 11/07/23 08:00 Temperature 96.8 F Pulse Rate 137 H Respiratory Rate 18 Blood Pressure 135/91 H Pulse Oximetry 97 Oxygen Delivery Method Room Air BMI result Body Mass Index 20.5 Labs 10/16/23 08:46 11/07/23 19:29 Imaging Radiology Impressions: ITS Impressions Head CT 10/08/23 21:15 IMPRESSION: Unremarkable CT scan of the head. No evidence of acute territorial infarct or hemorrhage. Pelvis Ultrasound 10/19/23 08:16 IMPRESSION: Very limited examination. Further evaluation with MRI of the pelvis as clinically warranted. There is a 4.3 cm simple appearing cyst in the left ovary that is almost certainly benign in a patient of this age and for which no imaging follow-up is recommended in an asymptomatic patient. If an acute ovarian pathology such as torsion is clinically suspected, further evaluation with MRI pelvis is recommended. Medications Medications Current Medications Acetaminophen (Acetaminophen 325 Mg Tablet) 650 mg PO Q6H PRN PRN Reason: Headache/Pain Mild Scale (1-3) Last Admin: 11/02/23 15:57 Dose: 650 mg Al Hydroxide/Mg Hydroxide (Magnesium Hydrox/Alum Hydrox 30 Ml Oral.Susp) 30 ml PO Q6H PRN PRN Reason: Heartburn/Nausea Last Admin: 10/27/23 10:10 Dose: 30 ml Aripiprazole (Aripiprazole 10 Mg Tablet) 10 mg PO DAILY [facility] Last Admin: 11/07/23 08:07 Dose: Not Given Calcium Carbonate (Calcium Carbonate 750 Mg Tab.Chew) 750 mg PO Q4H PRN PRN Reason: Heartburn Last Admin: 10/27/23 10:11 Dose: 750 mg Clonidine HCl (Clonidine Hcl 0.1 Mg Tablet) 0.05 mg PO BID [facility]; Protocol Last Admin: 11/07/23 08:04 Dose: 0.05 mg Famotidine (Famotidine 20 Mg Tablet) 20 mg PO BEDTIME KRISTI Last Admin: 11/06/23 20:50 Dose: 20 mg Hydroxyzine HCl (Hydroxyzine Hcl 25 Mg Tablet) 25 mg PO Q6H PRN PRN Reason: Anxiety Last Admin: 11/03/23 18:53 Dose: 25 mg Lorazepam (Lorazepam 0.5 Mg Tablet) 0.5 mg PO Q6H PRN PRN Reason: anxiety Last Admin: 11/06/23 16:14 Dose: 0.5 mg Magnesium Hydroxide (Milk Of Magnesia 30 Ml Oral.Susp) 30 ml PO DAILY PRN PRN Reason: Constipation Last Admin: 10/23/23 18:04 Dose: 30 ml Omeprazole (Omeprazole 20 Mg Capsule.Dr) 20 mg PO DAILY@0630 [facility] Last Admin: 11/07/23 05:17 Dose: Not Given Trazodone HCl (Trazodone Hcl 50 Mg Tablet) 50 mg PO BEDTIME MRX1 PRN PRN Reason: Insomnia Last Admin: 11/03/23 23:09 Dose: 50 mg Allergies Allergies Allergy/AdvReac Type Severity Reaction Status Date / Time metoprolol AdvReac Diarrhea Verified 10/07/23 23:43 Assessment & Plan Assessment & Plan (1) Psychosis: Status: Acute Code(s): F29 - Unspecified psychosis not due to a substance or known physiological condition (2) Delirium: Status: Suspected Code(s): R41.0 - Disorientation, unspecified (3) Intellectual disability: Status: Acute Code(s): F79 - Unspecified intellectual disabilities (4) Left ovarian cyst: Status: Acute Code(s): N83.202 - Unspecified ovarian cyst, left side Assessment and Plan: Pelvic Ultrasound 10/19/23 IMPRESSION: Very limited examination. Limited transabdominal evaluation as the urinary bladder was not fully distended. The right ovary was not visualized. Further evaluation with MRI of the pelvis as clinically warranted. There is a 4.3 cm simple appearing cyst in the left ovary that is almost certainly benign in a patient of this age and for which no imaging follow-up is recommended in an asymptomatic patient. If an acute ovarian pathology such as torsion is clinically suspected, further evaluation with MRI pelvis is recommended. (5) Major depressive disorder, recurrent episode, severe, with psychosis: Status: Acute Code(s): F33.3 - Major depressive disorder, recurrent, severe with psychotic symptoms (6) UTI (urinary tract infection): Status: Acute Code(s): N39.0 - Urinary tract infection, site not specified Plan 22 yo female with history of depression and anxiety admitted to due to rapid decompensation in context of recent covid infection. She is internally preoccupied and disorganized as well as almost mute with very few verbal utterances- whispering and mumbling. Recent history: Patient's mother, Latisha, says that prior to getting COVID September 28, patient was her regular self, without any history of psychotic or manic symptoms. Starting with COVID patient started to decompensate; about 5 days prior to the admission, patient was up all night, not sleeping at all, pacing the house and going into very is rooms in a disorganized manner; she was talking excessively and started complaining of auditory hallucinations (it was only once she got to the unit that she is expressed paranoid delusions). Mom says this is the 1st time patient has had any such manic episode. Mother says she herself has bipolar disorder, has been previously hospitalized and is stable on Depakote and Abilify. No other family history known Hx: -history of developmental delay; however no history of psychosis or manic episodes/behaviors prior to getting COVID infection this September 28 Impression: -it is possible that patient had some amount of COVID triggered encephalitis, maybe further complicated by UTI on admission. However, given mom's history of bipolar disorder combined with patient's current presentation (and absence of RDS, metabolic derangement, cardiac events-the lactic acid was elevated), it seems likely that this is a 1st manic break for patient. -at this time will treat for bipolar/psychosis Hospital course: 10/11/continue tx plan 10/14 risperidone changed to liquid 10/15 continue tx plan; labs reordered, d/c antibiotic, encourage meals and fluids 10/16 Patient's mom currently present during interview. Patient gave clear verbal permission for expert medical writer to discuss case with her mother, both while patient was present and after patient left the room. -reviewed labs which are unremarkable -Prior to mom coming, Pt talking with peers, staff more freely though still often mumbling; when mom came patient became selectively mute, mumbling, started spitting into a basin. -Regarding mood patient said she is not good. When asked what she would like help with changing, she said to stop telling lies, but could not elaborate -Patient made some references that her family's trying to kill her or that her mom is trying to kill her; when expert medical writer asked her why she said because of the food, she was not supposed to eat it however she did... Patient could not clarify further. Patient was drinking water, saying she was thirsty. -Patient said she wanted to go home; said she was taking the medications as told, but accepted she would have to remain on the unit longer; patient decided to leave the room but not before she said that she thinks her mom is trying to get her killed. remains disorganized in speech and behavior with paranoid thinking; slept through the night; no manic symptoms -ordered Neuro consult to help r/o encephalitis 10/17 remains disorganized in speech and behavior, paranoid, guarded -discussed with Dr. Cornell who reports unlikely encephalitis (or due to Covid) and that given time elapsed since contracted Covid (sep 28), testing won't help much; recs doing pelvic ultrasound for teratoma (again unlikely) and getting EEG to see if any slowing; however, if anti-psychotics/mood stabilizers clear up symptoms, this would strongly point at an organic psychotic/manic origin. -per chart, pt does have hx of ovarian cyst Will continue w/ medication treatment; if does not clear up can begin to consider LP, MRI, anti-NDMA antibodies will get pelvic US and EEG (since non-invasive) 10/19/23 continue risperidone trial - no change as yet 10/20/23 improved more verbal ( mother not in today following her) co anxiety with elelvated hr and sometimes bp given prns clonidine, then aterax and clonazepam 10/20 pt remains w/ AH and paranoid delusion that mother wants her because she gave [food].. However, she is open to the idea that maybe she's mistaken, that her mind is playing tricks on her; also, she is more talkative and able to engage in conversation. She also showered and is drinking fluids more regularly (and eating a little better). She agrees to increase in Risperdal -mom came to visit; she thinks her daughter is about 5/10. -will increase risperdal (considered increasing depakote since likely bipolar, however no manic symptoms and prominent symptoms remain psychotic 10/21 little better; she feels so, she went to group and participated appropriately, talking more; however still with AH/paranoid delusions. will increase Riserpdal futrher 10/23/23 psychotic dx cont risperadol 10/23 no longer manic, but remains with intrusive AH and paranoid delusions (intermittently keeping her from eating) that have not lessened at all, despite being on Risperdal 7mg and Zyprexa (used as prn, but used frequently, up to 20mg). Likely risperdal +/- Zyprexa helped to quite some manic symptoms early on in admission (which soon fully resolved) but have not touched psychotic ones. Will dc both and start Haldol 10/24 remains with psychotic symptoms, AH, paranoid delusions... continue with Haldol titration 10/25 for the 1st time patient says AH is less bothersome; expert medical writer cautiously optimistic and will continue with current treatment plan 10/26 AH back to bothersome, saying mean things...continued paranoid delusions, food is poisoned and not eating meals (eating some things prepared by nurse); will increase haldol to 10mg BID to see if this med can be effective 10/27 Patient did not sleep last night, more disorganized today, talking less. Patient said she has not good and AH remains. A little later on patient not talking but sticking her tongue out. Given Benadryl; protruding tongue ceased but it has not clear if this was dystonia or just bizarre behavior as patient really does not talk about it much. Will DC Haldol Will start Depakote; patient not sleeping and though not clearly manic disorganized; also mother is stabilized on Depakote Will also start Ativan 2 mg and likely schedule throughout the day as patient may have a touch of catatonia 10/28 psychotic delirium combined with med side-effect very tired from ativan; unlilkely catatonia but will keep in mind pt showered with prompting; asked expert medical writer when she would go home but otherwise, not talking much will dc depakote; do med wash and then reassess med management approach 10/29 still quite disorganized but a little better than the day before; continues to have AH, paranoid delusions. Will continue holding medications and likely start Abilify tomorrow 10/30 patient is improved today, more organized, talking more, eating more. Says she is anxious; agrees to plan with Abilify -will start with Abilify 2 mg daily for couple days and then will advance to 5 mg 11/01/23 tolerating Abilify thus far. Continue with 2 mg today, increase to 5 mg 11/02/23. 11/02/2023: Continue current regimen and plans. Increasing Abilify tomorrow 11/03/2023: Continue current regimen and plans 11/03 Abilify recently increased to 10 mg; will add Ativan low-dose as p.r.n. for anxiety; will give Abilify longer to work before increasing (mother is treated with both Abilify and Depakote) 11/04 Patient talking much more freely, using full sentences and expressing her thoughts adequately; big contrast to prior days when she was so internally preoccupied it was difficult for her to talk. Unfortunately, patient remains with significant paranoid delusions that she is a rapist and a terrorist and needs to discharge so that she can do the right thing and present to the police station so she can be imprisoned. Continued auditory hallucinations that she believes are telling her the truth, that this expert medical writer is not a real physician, that his name is fake... Also continues to believe that food is poisoned and she has not eaten anything for 2 days, though she still feels okay about drinking water. She also says she refuses all medications going forward, that she does not want them and they are making her worse. -Later today she did eat pizza but then made herself vomit, explaining to expert medical writer that a combination of the voices told her and she thought it was poisoned. She still said she will eat [employer] if her mother brings it in -Red erythematous area on right cheek, slightly raised; says it has a little bit itchy. Will monitor; not warm to the touch, no signs of infection, no signs of trauma, open skin and does not appear to be a cellulitis -mother present and tried to persuade patient to stay on the unit and engaged in treatment; expert medical writer continue to encourage patient to take medication and since she is talking much better today, expert medical writer thinks that perhaps Abilify actually working (and hopefully not causing a medication rash on her cheek). -patient is refusing medication and refusing food both due to severe paranoid delusions and auditory hallucinations. She is asking about discharge so she can self present to the police thinking she is committed heinous crimes (thinks she may have raped someone, but is not sure...) -discussed further with her mother who agrees patient likely needs to be involuntary committed if she has not open to treatment; discussed various medication approaches but also discussed possibility of ECT which mother agrees with if needed. -expert medical writer will again discuss with neurologist since patient's progress plateaued despite medication; mom said that patient had an had MRI when she was about 14 years old to rule out tumor; history of ovarian cyst left side -Excerpts from neurology note 10/18/23 slow in all of her responses, both physical and verbal, and cognitive.. ...oriented to person, place, month and year; her address, her high school and when she graduated and how she spends her time at home; answers questions appropriately ...Speech is fluent and clear although slow. Cranial nerves II through XII are normal. Muscle tone and strength are normal. Reflexes symmetrical. Plantar response are flexor. Neck is supple ...I do not see any major signs to sufggest an encephalopathy. CT brain is normal. Labs unremarkable. EEG (10/21/23) Impression: This waking and briefly drowsy EEG is considered within normal limits Pelvic US 10/19/23: There is a 4.3 cm simple appearing cyst in the left ovary that is almost certainly benign in a patient of this age and for which no imaging follow-up is recommended in an asymptomatic patient. The right ovary was not visualized. 11/05 Same presentation; rash on right cheek improved -discussing ramon/ vanessa 11/06 No change in presentation and she continues to be disorganized, expressing paranoid delusions, asking if her mother is , saying that she murdered a lot of people she thinks...; expert medical writer again asked if patient would take medication and she again said no I have tried that already and it does not help... Patient is overall much less conversant and seems to be headed back towards mute Not eating; drinking fluids. Patient only showering and dressing with significant staff assistance and guidance -rt cheek rash appears to mostly have resolved; -expert medical writer discussed MRI with patient who agreed to it/consented. Discussed history with patient who was able to answer questions; discussed same with mother who corroborated patient's answers. -Place neuro consult; texted neurologist and waiting to hear back -Patient already had pelvic ultrasound; discussed with animal caretaker supervisor who said for a better view of ovaries would need to do intervaginal ultrasound. At this point expert medical writer and staff agree this would likely be too traumatizing for patient and will hold off ordering for now Working Formulation: Prior to admission, mother reports patient had what sounds like some manic behavior, not sleeping, pacing; Patient presented with disorganized behavior, AH and paranoid delusions. On admission she was started on antipsychotic medication and quickly had some improvement, no longer placing herself on the floor, talking, eating and drinking and a little more organized. Lead Recoverer discussed case with Neurologist Dr. Oconnor who met with patient and agreed that although patient had no prior history of manic/psychotic behavior and this onset coincided with donal COVID, there was at this point low concern for encephalopathy; her mother has bipolar disorder, patient has a history of psychiatric issues and presentation is in line with 1st break joana/psychosis. And although She soon plateaued expert medical writer considered that her initial improvement was due to medication response which per discussion with Dr. 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 -At this time it seems that patient has failed Risperdal, Zyprexa and Haldol. Abilify may have been working, but she has since decided to refuse all medication. -patient does have some catatonic like features however Ativan trial did not alleviate any symptoms and she refuses to continue with it -Given that patient is not getting better, remains floridly psychotic, disorganized, refusing medication...not eating any food due to persistent paranoid delusions and auditory hallucinations and wanting to discharge, will again pursue if there is possibly a contributing neurological component. ECT is also an option as there is no absolute contraindication, thus far patient seems to be refractory to medication and she has some catatonic symptoms as well. Will likely file for involuntary commitment and substituted judgment as well -thankfully patient is adequately drinking fluids dx: -psychosis/joana -delirum -intellectual disability -hx ovarian cyst Plan: 3 day notice 15 min checks Ativan 0.5 mg p.r.n. for anxiety Continue Abilify 10mg daily (patient refusing) DC Ativan; has not helped, causing much drowsiness, making catatonia unlikely DC Depakote; will do med wash DC Haldol; not working, possibly causing dystonia. DC risperdal DC zyprexa prn; though patient was taking frequently dc'd depakote 500mg (pt refused so stopped) Hold: controldesogestrel-ethinyl estradiol [Apri] 0.15-0.03 mg tablet Hold: Auvelity 45-105 mg tablet,IR,delayed rel,biphasic (dextromethorphan bupropion) Other history: -Patient has had an IEP since she was in grade school, often in a therapeutic class environment; 1 on 1 help with all school work; mother says some developmental delay. -She does not think her daughter would be capable of obtaining or keeping a job. -Patient has had 1 friend from school throughout the past years, though the friendship recently ended; she has a lot of online friends. Patient also currently has a boyfriend that she met online but who visits. -Patient has history of intermittent refusal to drink fluids and maybe once every 6 months would end up coming to the hospital ED for dehydration. This was more common when she was in grade school and has only been a few times in the past year -med trials: Low-dose Zyprexa, Abilikyreey; Ericr, never ended up taking vortioxetine Patient educated on: diagnosis and medication risk/benefits Informed Consent: does not understand Reason for continued inpatient stay Substantial Risk for: inability to function Time Spent With Patient Time: Total time managing care of this patient today ____ minutes.
[2023-11-07] MEDS: LORazepam 0.5 MG TABLET PO (16:42)
[2023-11-07 18:00] VITALS: BP 135/99; PULSE 166; RESP 17; TEMP 36.6; O2SAT 97
[2023-11-07] MEDS: Famotidine 20 MG TABLET PO (19:40)
[2023-11-07 19:49] LABS: Alanine Aminotransferase 87 U/L (0-31); Albumin Level 4.5 g/dL (3.5-5.0); Alkaline Phosphatase 89 U/L (39-117); Anion Gap 16 (12-20); Aspartate Amino Transferase 81 U/L (5-31); Bilirubin Total 0.6 mg/dL (0.0-1.0); Blood Urea Nitrogen 6 mg/dL (9-16); Calcium 10.2 mg/dL (8.4-10.2); Carbon Dioxide 26 mmol/L (22-29); Chloride 104 mmol/L (96-108); Creatinine Clr Calc Pharmacy 112.4; Estimated Glomerular Filt Rate > 60; Glucose Random 101 mg/dL (60-115); Sodium 142 mmol/L (135-145); Total Protein 7.8 g/dL (6.5-8.0)
--- NOTE | 2023-11-08 07:00 | ECG_ITS ---
Test Reason : tachycardia Blood Pressure : / mmHG Vent. Rate : 128 BPM Atrial Rate : 128 BPM P-R Int : 152 ms QRS Dur : 072 ms QT Int : 282 ms P-R-T Axes : 044 061 002 degrees QTc Int : 411 ms Artifact in tracing Sinus tachycardia Nonspecific ST and T wave abnormality Abnormal ECG When compared with ECG of 24-OCT-2023 12:47, Vent. rate has increased BY 42 BPM Nonspecific T wave abnormality now evident in Anterolateral leads Referred By: Hossein Smith Electronically Signed By:LEN EDWARDS
[2023-11-08 08:00] VITALS: BP 144/95; PULSE 133; RESP 20; TEMP 36.8; O2SAT 100
[2023-11-08] MEDS: cloNIDine HCL 0.1 MG TABLET 0.05 MG PO (08:50)
--- NOTE | 2023-11-08 09:34 | P.PNPSI_ITS ---
Subjective Subjective Date of Service: 11/08/23 Reason For Visit: Depresssion Interim History: Met with patient; discussed with team Patient hardly talking; sometimes backing away when someone approaches; drinking some ensure which is helpful. Remains disorganized, shuffling through the halls aimlessly, pants falling down, floridly psychotic with paranoid delusions and auditory hallucinations. Patient will approach machine sign writer but then not say anything respond to questions. The little that she does talk she refers to paranoid delusional thoughts, saying she thinks she killed lots of people... Is her mother ... -though she consented to MRI, when the wheelchair came she got very frightened and refused to get in the wheelchair. On inquiry patient said I need my mother and not at yes that with her mother present she would do the MRI -neurologist Dr. Mckeon came to see patient however she remained mute, passive, lying in bed hardly moving -discussed case with Dr. Oconnor who agrees to move forward with MRI but that enter vaginal pelvic ultrasound can wait; also agrees with pursuing LP and for lab work to include Cell count, protein sugar, cultures, immunoelectrophoresus, viral pcr, autoimmune panel Mental Status Exam Mental Status Exam Narrative: Pt is alert and oriented; behavior is disorganized; patient is not in distress; dressed in casual attire desheveled; mood is described as anxious and affect blunted; eye contact limited; psychomotor retardation present; Speech is impoverished and mostly mute; otherwise slow, soft; Thought process distracted; at times can be goal oriented; Thought content is on delusional, paranoid fears; denies any SI/HI. AH remains; Patients insight and judgment impaired. Diagnostics Vital Signs (24Hr): Vital Signs - 24 hr 11/07/23 18:00 11/08/23 08:00 Temperature 97.8 F 98.3 F Pulse Rate 166 H 133 H Respiratory Rate 17 20 Blood Pressure 135/99 H 144/95 H Pulse Oximetry 97 100 Oxygen Delivery Method Room Air Room Air BMI result Body Mass Index 26.8 Labs 10/16/23 08:46 11/07/23 19:29 Labs: Laboratory Results - last 48 hr 11/07/23 19:29 Sodium 142 Potassium 4.0 Chloride 104 Carbon Dioxide 26 Anion Gap 16 BUN 6 L Creatinine 0.68 Estim Creat Clear Calc 112.4 Estimated GFR > 60 Random Glucose 101 Calcium 10.2 Total Bilirubin 0.6 AST 81 H ALT 87 H Alkaline Phosphatase 89 Total Protein 7.8 Albumin 4.5 Imaging Radiology Impressions: ITS Impressions Head CT 10/08/23 21:15 IMPRESSION: Unremarkable CT scan of the head. No evidence of acute territorial infarct or hemorrhage. Pelvis Ultrasound 10/19/23 08:16 IMPRESSION: Very limited examination. Further evaluation with MRI of the pelvis as clinically warranted. There is a 4.3 cm simple appearing cyst in the left ovary that is almost certainly benign in a patient of this age and for which no imaging follow-up is recommended in an asymptomatic patient. If an acute ovarian pathology such as torsion is clinically suspected, further evaluation with MRI pelvis is recommended. Medications Medications Current Medications Acetaminophen (Acetaminophen 325 Mg Tablet) 650 mg PO Q6H PRN PRN Reason: Headache/Pain Mild Scale (1-3) Last Admin: 11/02/23 15:57 Dose: 650 mg Al Hydroxide/Mg Hydroxide (Magnesium Hydrox/Alum Hydrox 30 Ml Oral.Susp) 30 ml PO Q6H PRN PRN Reason: Heartburn/Nausea Last Admin: 10/27/23 10:10 Dose: 30 ml Aripiprazole (Aripiprazole 10 Mg Tablet) 10 mg PO DAILY KRISTI Last Admin: 11/08/23 08:50 Dose: 10 mg Calcium Carbonate (Calcium Carbonate 750 Mg Tab.Chew) 750 mg PO Q4H PRN PRN Reason: Heartburn Last Admin: 10/27/23 10:11 Dose: 750 mg Clonazepam (Clonazepam 1 Mg Tablet) 1 mg PO DAILY PRN PRN Reason: before MRI Clonidine HCl (Clonidine Hcl 0.1 Mg Tablet) 0.05 mg PO BID KRISTI; Protocol Last Admin: 11/08/23 08:50 Dose: 0.05 mg Famotidine (Famotidine 20 Mg Tablet) 20 mg PO BEDTIME KRISTI Last Admin: 11/07/23 19:40 Dose: 20 mg Hydroxyzine HCl (Hydroxyzine Hcl 25 Mg Tablet) 25 mg PO Q6H PRN PRN Reason: Anxiety Last Admin: 11/03/23 18:53 Dose: 25 mg Lorazepam (Lorazepam 0.5 Mg Tablet) 0.5 mg PO Q6H PRN PRN Reason: anxiety Last Admin: 11/07/23 16:42 Dose: 0.5 mg Magnesium Hydroxide (Milk Of Magnesia 30 Ml Oral.Susp) 30 ml PO DAILY PRN PRN Reason: Constipation Last Admin: 10/23/23 18:04 Dose: 30 ml Omeprazole (Omeprazole 20 Mg Capsule.Dr) 20 mg PO DAILY@0630 KRISTI Last Admin: 11/08/23 05:06 Dose: 20 mg Trazodone HCl (Trazodone Hcl 50 Mg Tablet) 50 mg PO BEDTIME MRX1 PRN PRN Reason: Insomnia Last Admin: 11/03/23 23:09 Dose: 50 mg Allergies Allergies Allergy/AdvReac Type Severity Reaction Status Date / Time metoprolol AdvReac Diarrhea Verified 10/07/23 23:43 Assessment & Plan Assessment & Plan (1) Psychosis: Status: Acute Code(s): F29 - Unspecified psychosis not due to a substance or known physiological condition (2) Delirium: Status: Suspected Code(s): R41.0 - Disorientation, unspecified (3) Intellectual disability: Status: Acute Code(s): F79 - Unspecified intellectual disabilities (4) Left ovarian cyst: Status: Acute Code(s): N83.202 - Unspecified ovarian cyst, left side Assessment and Plan: Pelvic Ultrasound 10/19/23 IMPRESSION: Very limited examination. Limited transabdominal evaluation as the urinary bladder was not fully distended. The right ovary was not visualized. Further evaluation with MRI of the pelvis as clinically warranted. There is a 4.3 cm simple appearing cyst in the left ovary that is almost certainly benign in a patient of this age and for which no imaging follow-up is recommended in an asymptomatic patient. If an acute ovarian pathology such as torsion is clinically suspected, further evaluation with MRI pelvis is recommended. (5) Major depressive disorder, recurrent episode, sev (5) Major depressive disorder, recurrent episode, severe, with psychosis: Status: Chronic Code(s): F33.3 - Major depressive disorder, recurrent, severe with psychotic symptoms (6) UTI (urinary tract infection): Status: Resolved Code(s): N39.0 - Urinary tract infection, site not specified Plan 22 yo female with history of depression and anxiety admitted to due to rapid decompensation in context of recent covid infection. She is internally preoccupied and disorganized as well as almost mute with very few verbal utterances- whispering and mumbling. Recent history: Patient's mother, Latisha, says that prior to getting COVID September 28, patient was her regular self, without any history of psychotic or manic symptoms. Starting with COVID patient started to decompensate; about 5 days prior to the admission, patient was up all night, not sleeping at all, pacing the house and going into very is rooms in a disorganized manner; she was talking excessively and started complaining of auditory hallucinations (it was only once she got to the unit that she is expressed paranoid delusions). Mom says this is the 1st time patient has had any such manic episode. -it is possible that patient had some amount of COVID triggered encephalitis, maybe further complicated by UTI on admission. However, given mom's history of bipolar disorder combined with patient's current presentation (and absence of RDS, metabolic derangement, cardiac events-the lactic acid was elevated), it seems likely that this is a 1st manic break for patient. -at this time will treat for bipolar/psychosis Developmental Hx:-history of developmental delay; significant IEP throughout school history Family hx: Mother bipolar on [facility] course: 10/11/continue tx plan 10/12: Continue current management and treatment plan. 10/13: continue current management and treatment plan. 10/14 risperidone changed to liquid 10/15 continue tx plan; labs reordered, d/c antibiotic, encourage meals and fluids 10/16 Patient's mom currently present during interview. Patient gave clear verbal permission for machine sign writer to discuss case with her mother, both while patient was present and after patient left the room. -reviewed labs which are unremarkable -Prior to mom coming, Pt talking with peers, staff more freely though still often mumbling; when mom came patient became selectively mute, mumbling, started spitting into a basin. -Regarding mood patient said she is not good. When asked what she would like help with changing, she said to stop telling lies, but could not elaborate -Patient made some references that her family's trying to kill her or that her mom is trying to kill her; when machine sign writer asked her why she said because of the food, she was not supposed to eat it however she did... Patient could not clarify further. Patient was drinking water, saying she was thirsty. -Patient said she wanted to go home; said she was taking the medications as told, but accepted she would have to remain on the unit longer; patient decided to leave the room but not before she said that she thinks her mom is trying to get her killed. remains disorganized in speech and behavior with paranoid thinking; slept through the night; no manic symptoms -ordered Neuro consult to help r/o encephalitis 10/17 remains disorganized in speech and behavior, paranoid, guarded -discussed with Dr. Cornell who reports unlikely encephalitis (or due to Covid) and that given time elapsed since contracted Covid (sep 28), testing won't help much; recs doing pelvic ultrasound for teratoma (again unlikely) and getting EEG to see if any slowing; however, if anti-psychotics/mood stabilizers clear up symptoms, this would strongly point at an organic psychotic/manic origin. -per chart, pt does have hx of ovarian cyst Will continue w/ medication treatment; if does not clear up can begin to consider LP, MRI, anti-NDMA antibodies will get pelvic US and EEG (since non-invasive) 10/19/23 continue risperidone trial - no change as yet 10/20/23 improved more verbal ( mother not in today following her) co anxiety with elelvated hr and sometimes bp given prns clonidine, then aterax and clonazepam 10/20 pt remains w/ AH and paranoid delusion that mother wants her because she gave [food].. However, she is open to the idea that maybe she's mistaken, that her mind is playing tricks on her; also, she is more talkative and able to engage in conversation. She also showered and is drinking fluids more regularly (and eating a little better). She agrees to increase in Risperdal -mom came to visit; she thinks her daughter is about 5/10. -will increase risperdal (considered increasing depakote since likely bipolar, however no manic symptoms and prominent symptoms remain psychotic 10/21 little better; she feels so, she went to group and participated appropriately, talking more; however still with AH/paranoid delusions. will increase Riserpdal futrher 10/23/23 psychotic dx cont risperadol 10/23 no longer manic, but remains with intrusive AH and paranoid delusions (intermittently keeping her from eating) that have not lessened at all, despite being on Risperdal 7mg and Zyprexa (used as prn, but used frequently, up to 20mg). Likely risperdal +/- Zyprexa helped to quite some manic symptoms early on in admission (which soon fully resolved) but have not touched psychotic ones. Will dc both and start Haldol 10/24 remains with psychotic symptoms, AH, paranoid delusions... continue with Haldol titration 10/25 for the 1st time patient says AH is less bothersome; machine sign writer cautiously optimistic and will continue with current treatment plan 10/26 AH back to bothersome, saying mean things...continued paranoid delusions, food is poisoned and not eating meals (eating some things prepared by nurse); will increase haldol to 10mg BID to see if this med can be effective 10/27 Patient did not sleep last night, more disorganized today, talking less. Patient said she has not good and AH remains. A little later on patient not talking but sticking her tongue out. Given Benadryl; protruding tongue ceased but it has not clear if this was dystonia or just bizarre behavior as patient really does not talk about it much. Will DC Haldol Will start Depakote; patient not sleeping and though not clearly manic disorganized; also mother is stabilized on Depakote Will also start Ativan 2 mg and likely schedule throughout the day as patient may have a touch of catatonia 10/28 psychotic delirium combined with med side-effect very tired from ativan; unlilkely catatonia but will keep in mind pt showered with prompting; asked machine sign writer when she would go home but otherwise, not talking much will dc depakote; do med wash and then reassess med management approach 10/29 still quite disorganized but a little better than the day before; continues to have AH, paranoid delusions. Will continue holding medications and likely start Abilify tomorrow 10/30 patient is improved today, more organized, talking more, eating more. Says she is anxious; agrees to plan with Abilify -will start with Abilify 2 mg daily for couple days and then will advance to 5 mg 11/01/23 tolerating Abilify thus far. Continue with 2 mg today, increase to 5 mg 11/02/23. 11/02/2023: Continue current regimen and plans. Increasing Abilify tomorrow 11/03/2023: Continue current regimen and plans 11/03 Abilify recently increased to 10 mg; will add Ativan low-dose as p.r.n. for anxiety; will give Abilify longer to work before increasing (mother is treated with both Abilify and Depakote) 11/04 Patient talking much more freely, using full sentences and expressing her thoughts adequately; big contrast to prior days when she was so internally preoccupied it was difficult for her to talk. Unfortunately, patient remains with significant paranoid delusions that she is a rapist and a terrorist and needs to discharge so that she can do the right thing and present to the police station so she can be imprisoned. Continued auditory hallucinations that she believes are telling her the truth, that this machine sign writer is not a real physician, that his name is fake... Also continues to believe that food is poisoned and she has not eaten anything for 2 days, though she still feels okay about drinking water. She also says she refuses all medications going forward, that she does not want them and they are making her worse. -Later today she did eat pizza but then made herself vomit, explaining to machine sign writer that a combination of the voices told her and she thought it was poisoned. She still said she will eat [employer] if her mother brings it in -Red erythematous area on right cheek, slightly raised; says it has a little bit itchy. Will monitor; not warm to the touch, no signs of infection, no signs of trauma, open skin and does not appear to be a cellulitis -mother present and tried to persuade patient to stay on the unit and engaged in treatment; machine sign writer continue to encourage patient to take medication and since she is talking much better today, machine sign writer thinks that perhaps Abilify actually working (and hopefully not causing a medication rash on her cheek). -patient is refusing medication and refusing food both due to severe paranoid delusions and auditory hallucinations. She is asking about discharge so she can self present to the police thinking she is committed heinous crimes (thinks she may have raped someone, but is not sure...) -discussed further with her mother who agrees patient likely needs to be involuntary committed if she has not open to treatment; discussed various medication approaches but also discussed possibility of ECT which mother agrees with if needed. -machine sign writer will again discuss with neurologist since patient's progress plateaued despite medication; mom said that patient had an had MRI when she was about 14 years old to rule out tumor; history of ovarian cyst left side -Excerpts from neurology note 10/18/23 slow in all of her responses, both physical and verbal, and cognitive.. ...oriented to person, place, month and year; her address, her high school and when she graduated and how she spends her time at home; answers questions appropriately ...Speech is fluent and clear although slow. Cranial nerves II through XII are normal. Muscle tone and strength are normal. Reflexes symmetrical. Plantar response are flexor. Neck is supple ...I do not see any major signs to sufggest an encephalopathy. CT brain is normal. Labs unremarkable. EEG (10/21/23) Impression: This waking and briefly drowsy EEG is considered within normal limits Pelvic US 10/19/23: There is a 4.3 cm simple appearing cyst in the left ovary that is almost certainly benign in a patient of this age and for which no imaging follow-up is recommended in an asymptomatic patient. The right ovary was not visualized. 11/05 Same presentation; rash on right cheek improved -discussing ramon/ vanessa 11/06 No change in presentation and she continues to be disorganized, expressing paranoid delusions, asking if her mother is , saying that she murdered a lot of people she thinks...; machine sign writer again asked if patient would take medication and she again said no I have tried that already and it does not help... Patient is overall much less conversant and seems to be headed back towards mute Not eating; drinking fluids. Patient only showering and dressing with significant staff assistance and guidance -rt cheek rash appears to mostly have resolved; -machine sign writer discussed MRI with patient who agreed to it/consented. Discussed history with patient who was able to answer questions; discussed same with mother who corroborated patient's answers. -Place neuro consult; texted neurologist and waiting to hear back -Patient already had pelvic ultrasound; discussed with watch manufacturing supervisor who said for a better view of ovaries would need to do intervaginal ultrasound. At this point machine sign writer and staff agree this would likely be too traumatizing for patient and will hold off ordering for now 11/07 Patient hardly talking; sometimes backing away when someone approaches; drinking some ensure which is helpful. Remains disorganized, shuffling through the halls aimlessly, pants falling down, floridly psychotic with paranoid delusions and auditory hallucinations. Patient will approach machine sign writer but then not say anything respond to questions. The little that she does talk she refers to paranoid delusional thoughts, saying she thinks she killed lots of people... Is her mother ... -though she consented to MRI, when the wheelchair came she got very frightened and refused to get in the wheelchair. On inquiry patient said I need my mother and not at yes that with her mother present she would do the MRI -neurologist Dr. Mckeon came to see patient however she remained mute, passive, lying in bed hardly moving -discussed case with Dr. Oconnor who agrees to move forward with MRI but that enter vaginal pelvic ultrasound can wait; also agrees with pursuing LP and for lab work to include Cell count, protein sugar, cultures, immunoelectrophoresus, viral pcr, autoimmune panel Working Formulation as of 11/08/23: Prior to admission, mother reports patient had what sounds like some manic behavior, not sleeping, pacing; Patient presented with disorganized behavior, AH and paranoid delusions. On admission she was started on antipsychotic medication and quickly had some improvement, no longer placing herself on the floor, talking, eating and drinking and a little more organized. Chief Nursing Officer discussed case with Neurologist Dr. Oconnor who met with patient and agreed that although patient had no prior history of manic/psychotic behavior and this onset coincided with donal COVID, there was at this point low concern for encephalopathy; her mother has bipolar disorder, patient has a history of psychiatric issues and presentation is in line with 1st break joana/psychosis. And although She soon plateaued machine sign writer considered that her initial improvement was due to medication response which per discussion with Dr. 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 -At this time it seems that patient has failed Risperdal, Zyprexa and Haldol. Abilify may have been working, but she has since decided to refuse all medication. -patient does have some catatonic like features however Ativan trial did not alleviate any symptoms and she refuses to continue with it -Given that patient is not getting better, remains floridly psychotic, disorganized, refusing medication...not eating any food due to persistent paranoid delusions and auditory hallucinations and wanting to discharge, will again pursue if there is possibly a contributing neurological component. ECT is also an option as there is no absolute contraindication, thus far patient seems to be refractory to medication and she has some catatonic symptoms as well. - Filed for involuntary commitment and substituted judgment as well -thankfully patient is adequately drinking fluids dx: -psychosis/joana -delirum; rule out encephalopathy -intellectual disability -hx ovarian cyst Plan: Section 7; petition the court for involuntary commitment and substituted judgment 15 min checks MRI with and without contrast ordered; waiting for patient compliance LP to be ordered when patient is willing;lab work to include Cell count, protein sugar, cultures, immunoelectrophoresus, viral pcr, autoimmune panel Ativan 0.5 mg p.r.n. for anxiety Continue Abilify 10mg daily (patient refusing) DC Ativan; has not helped, causing much drowsiness, making catatonia unlikely DC Depakote; will do med wash DC Haldol; not working, possibly causing dystonia. DC risperdal DC zyprexa prn; though patient was taking frequently dc'd depakote 500mg (pt refused so stopped) Hold: controldesogestrel-ethinyl estradiol [Apri] 0.15-0.03 mg tablet Hold: Auvelity 45-105 mg tablet,IR,delayed rel,biphasic (dextromethorphan bupropion) Other history: -Patient has had an IEP since she was in grade school, often in a therapeutic class environment; 1 on 1 help with all school work; mother says some developmental delay. -She does not think her daughter would be capable of obtaining or keeping a job. -Patient has had 1 friend from school throughout the past years, though the friendship recently ended; she has a lot of online friends. Patient also currently has a boyfriend that she met online but who visits. -Patient has history of intermittent refusal to drink fluids and maybe once every 6 months would end up coming to the hospital ED for dehydration. This was more common when she was in grade school and has only been a few times in the past year -med trials: Low-dose Zyprexa, Chau; Aamir, never ended up vortioxetine Patient educated on: diagnosis and medication risk/benefits Informed Consent: does not understand Reason for continued inpatient stay Substantial Risk for: inability to function Time Spent With Patient Time: Total time managing care of this patient today ____ minutes.
[2023-11-08] MEDS: clonazePAM 1 MG TABLET PO (14:13)
--- NOTE | 2023-11-08 15:26 | P.CNNE_ITS ---
History of Present Illness Data of Consult Service Date: 11/08/23 Primary Care Provider: Unknown Physician HPI Reason for consult: Encephalopathy 23 years old woman who is history is been documented in her previous notes I was asked to see for follow-up of neurology consultation done few days ago. There has been no change in her overall situation. I reviewed some of her previous records and noted that this was not her 1st psychiatric episode. In fact she has been having behavioral symptoms and had been admitted in inpatient service before and followed as an outpatient. I also reviewed her CT scan of brain and compared it to her previous scans specially of 2010 done in this hospital. There was no evidence of seizure-like episode. Review of Systems 2 Review of Systems: No febrile illness or at this time any significant complain of headache PMFSH Past Medical History Medical History (Updated 11/08/23 @ 15:31 by Marya Mckeon MD) Intellectual disability Contraception management Vitamin D deficiency Vitamin B12 deficiency Uses control Hx of ovarian cyst Epigastric abdominal pain Orthostatic hypotension Supraventricular tachycardia by ECG Major depression in partial remission Left ovarian cyst Migraine Family History Family History Mother Bipolar disorder Mental health disorder Surgical History Surgical History H/O removal of cyst Social History Social History Household Members: Unknown / Unable to assess Household Members Other:: mother and MGF Housing: House Alcohol intake: never Patient Tobacco Use Status: Never used Tobacco Smoked in Last 30 Days: No e-Cigarette/Vaping Use: Never Used Use of substances other than those prescribed or required for medical reasons: Refusing to respond Currently Displaying Signs/Symptoms of Drug Intoxication Withdrawal: No Any prior treatment program specific to substance use: No Advance Directives: No Advance Directives Information Provided: Yes Do you have thoughts of harming others: None Do you have a plan to hurt others: No Plan Recently lost weight without trying: Unsure Nutrition Risks: No Nutritional Risk Patient : No : No Poor oral hygiene: No service: No Current occupational status: unemployed Sexual orientation: Unable to collect Cognitive needs: No Hearing needs: No Vision needs: No Meds Allergies Allergy/AdvReac Type Severity Reaction Status Date / Time metoprolol AdvReac Diarrhea Verified 10/07/23 23:43 Active Medications: Current Medications Acetaminophen (Acetaminophen 325 Mg Tablet) 650 mg PO Q6H PRN PRN Reason: Headache/Pain Mild Scale (1-3) Last Admin: 11/02/23 15:57 Dose: 650 mg Al Hydroxide/Mg Hydroxide (Magnesium Hydrox/Alum Hydrox 30 Ml Oral.Susp) 30 ml PO Q6H PRN PRN Reason: Heartburn/Nausea Last Admin: 10/27/23 10:10 Dose: 30 ml Aripiprazole (Aripiprazole 10 Mg Tablet) 10 mg PO DAILY COUNTS INCLUDE 234 BEDS AT THE [facility] Last Admin: 11/08/23 08:50 Dose: 10 mg Calcium Carbonate (Calcium Carbonate 750 Mg Tab.Chew) 750 mg PO Q4H PRN PRN Reason: Heartburn Last Admin: 10/27/23 10:11 Dose: 750 mg Clonidine HCl (Clonidine Hcl 0.1 Mg Tablet) 0.05 mg PO BID COUNTS INCLUDE 234 BEDS AT THE [facility]; Protocol Last Admin: 11/08/23 08:50 Dose: 0.05 mg Famotidine (Famotidine 20 Mg Tablet) 20 mg PO BEDTIME KRISTI Last Admin: 11/07/23 19:40 Dose: 20 mg Hydroxyzine HCl (Hydroxyzine Hcl 25 Mg Tablet) 25 mg PO Q6H PRN PRN Reason: Anxiety Last Admin: 11/03/23 18:53 Dose: 25 mg Lorazepam (Lorazepam 0.5 Mg Tablet) 0.5 mg PO Q6H PRN PRN Reason: anxiety Last Admin: 11/07/23 16:42 Dose: 0.5 mg Lorazepam (Lorazepam 1 Mg Tablet) 2 mg PO DAILY PRN PRN Reason: for pre procedures Magnesium Hydroxide (Milk Of Magnesia 30 Ml Oral.Susp) 30 ml PO DAILY PRN PRN Reason: Constipation Last Admin: 10/23/23 18:04 Dose: 30 ml Omeprazole (Omeprazole 20 Mg Capsule.Dr) 20 mg PO DAILY@0630 COUNTS INCLUDE 234 BEDS AT THE [facility] Last Admin: 11/08/23 05:06 Dose: 20 mg Trazodone HCl (Trazodone Hcl 50 Mg Tablet) 50 mg PO BEDTIME MRX1 PRN PRN Reason: Insomnia Last Admin: 11/03/23 23:09 Dose: 50 mg Home Medications Medication Instructions Recorded Confirmed Last Taken Type famotidine 20 mg tablet 20 mg PO BEDTIME 10/08/23 10/08/23 Unknown History lorazepam 0.5 mg tablet 0.5 mg PO DAILY PRN panic attack 10/08/23 10/08/23 Unknown History lumateperone 21 mg capsule 21 mg PO DAILY 10/08/23 10/08/23 Unknown History (Caplyta) pantoprazole 20 mg tablet,delayed 20 mg PO DAILY 10/08/23 10/08/23 Unknown History release Physical Exam 2 Vital Signs: Vital Signs: Last Vital Signs Temp 98.3 F 11/08/23 08:00 Pulse 133 H 11/08/23 08:00 Resp 20 11/08/23 08:00 BP 144/95 H 11/08/23 08:00 Pulse Ox 100 11/08/23 08:00 O2 Del Method Room Air 11/08/23 08:00 BMI result Body Mass Index 26.8 Neuro: Other: Alert and awake with flat affect made eye contact but was not very cooperative with exam though did not resist either. She answered simple questions but did not speak much. There was no gaze deviation. There was no abnormal eye movement. Visual gonsalves seem to be full. Face is symmetrical. Elementary neurological examination did not reveal any significant abnormality. Results Labs 10/16/23 08:46 11/07/23 19:29 Labs: BMP 11/07/23 19:29 Sodium 142 Potassium 4.0 Chloride 104 Carbon Dioxide 26 BUN 6 L Creatinine 0.68 Calcium 10.2 Liver Function 11/07/23 Range/Units 19:29 Total Bilirubin 0.6 (0.0-1.0) mg/dL AST 81 H (5-31) U/L ALT 87 H (0-31) U/L Alkaline Phosphatase 89 (39-117) U/L Albumin 4.5 (3.5-5.0) g/dL Her CT scan of brain revealed relatively large 4th ventricle that was also noted in her initial scan in 2011 with somewhat dilated cisterna magnum. Also noted was significant cortical atrophy in comparison to were scan of 2011 affecting frontoparietal cortical areas more so on the left side Microbiology Microbiology Results: Microbiology 10/08/23 Unknown Urine clean catch - Urine hinds top Urine Culture - Final Assessment and Plan (1) Psychosis: Qualifiers: Psychosis type: unspecified psychosis type Qualified Code(s): F29 - Unspecified psychosis not due to a substance or known physiological condition Status: Acute 23 years old woman who is presenting with symptoms of psychosis. This is not her 1st behavioral exacerbation as she has been admitted in [place] before, as per her previous notes, and has been following outpatient behavioral clinic. In away, this is exacerbation of her underlying psychiatric disease. 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 It is not unusual to see this type of soft signs in a full-blown genetically based serious psychiatric disease such as bipolar disorder or schizophrenia. Comparison to her scan in 2011, there is significant cortical degeneration. Her 4th ventricle was slightly larger for her age and especially for the size of her brain on the amount of brain parenchyma she had. 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 At the same time it is important to mention that presence of these findings in isolation do not make any particular diagnosis.Obtaining an MRI of brain might still be useful. Similarly obtaining a sample of her spinal fluid and sending for autoimmune panel might also be useful, especially if baseline CSF studies which show any abnormality such as high protein. Treatment of this type of condition without any other diagnosis symptomatic, and if no other diagnosis is found, prognosis, in behavioral terms, is relatively poor. Procedures Date of Service Date of Service: 11/08/23
[2023-11-08 18:00] VITALS: BP 130/71; PULSE 126; TEMP 36.8
[2023-11-09 07:55] VITALS: BP 142/100; PULSE 127; RESP 18; TEMP 36.9; O2SAT 100
--- NOTE | 2023-11-09 09:41 | P.PNPSI_ITS ---
Subjective Subjective Date of Service: 11/09/23 Reason For Visit: Depresssion Interim History: Met with patient; discussed with team Patient remains non-responsive. Alert but not talking. Confused look on her face. She walks in a shuffle around the unit.She couldn't tolerate MRI. Will attempt again today with Ativan. Review of Systems Review of Systems No febrile illness or at this time any significant complain of headache Yes all other systems are reviewed and are negative and Unobtainable due to mental status Mental Status Exam Mental Status Exam Narrative: Pt is alert and oriented; behavior is disorganized; patient is not in distress; dressed in casual attire desheveled; mood is described as anxious and affect blunted; eye contact limited; psychomotor retardation present; Speech is impoverished and mostly mute; otherwise slow, soft; Thought process distracted; at times can be goal oriented; Thought content is on delusional, paranoid fears; denies any SI/HI. AH remains; Patients insight and judgment impaired. Patient Appearance: Appropriate Patient Orientation: Person, Place, Time and Situation Level of Consciousness: Alert Patient Behavior: Dependent, Cooperative, Passive, Suspicious, Timid, Anxious, Fearful and Distractible Behavior Comments: spontaneously sitting on floor, taking others belongings, Mood Description: Anxious and Apprehensive Affect Description: Anxious and Apprehensive Patient Cognition Impaired: Yes Ability to Follow Directions: Good Speech Pattern: Spontaneous Speech, Soft-Spoken, Delayed and Long Pauses Diagnostics Vital Signs (24Hr): Vital Signs - 24 hr 11/08/23 18:00 11/09/23 07:55 Temperature 98.2 F 98.4 F Pulse Rate 126 H 127 H Respiratory Rate 18 Blood Pressure 130/71 142/100 H Pulse Oximetry 100 Oxygen Delivery Method Room Air BMI result Body Mass Index 26.8 Labs 10/16/23 08:46 11/07/23 19:29 Labs: Laboratory Results - last 48 hr 11/07/23 19:29 Sodium 142 Potassium 4.0 Chloride 104 Carbon Dioxide 26 Anion Gap 16 BUN 6 L Creatinine 0.68 Estim Creat Clear Calc 112.4 Estimated GFR > 60 Random Glucose 101 Calcium 10.2 Total Bilirubin 0.6 AST 81 H ALT 87 H Alkaline Phosphatase 89 Total Protein 7.8 Albumin 4.5 Imaging Radiology Impressions: ITS Impressions Head CT 10/08/23 21:15 IMPRESSION: Unremarkable CT scan of the head. No evidence of acute territorial infarct or hemorrhage. Pelvis Ultrasound 10/19/23 08:16 IMPRESSION: Very limited examination. Further evaluation with MRI of the pelvis as clinically warranted. There is a 4.3 cm simple appearing cyst in the left ovary that is almost certainly benign in a patient of this age and for which no imaging follow-up is recommended in an asymptomatic patient. If an acute ovarian pathology such as torsion is clinically suspected, further evaluation with MRI pelvis is recommended. Medications Medications Current Medications Acetaminophen (Acetaminophen 325 Mg Tablet) 650 mg PO Q6H PRN PRN Reason: Headache/Pain Mild Scale (1-3) Last Admin: 11/02/23 15:57 Dose: 650 mg Al Hydroxide/Mg Hydroxide (Magnesium Hydrox/Alum Hydrox 30 Ml Oral.Susp) 30 ml PO Q6H PRN PRN Reason: Heartburn/Nausea Last Admin: 10/27/23 10:10 Dose: 30 ml Aripiprazole (Aripiprazole 10 Mg Tablet) 10 mg PO DAILY [facility] Last Admin: 11/09/23 08:29 Dose: Not Given Calcium Carbonate (Calcium Carbonate 750 Mg Tab.Chew) 750 mg PO Q4H PRN PRN Reason: Heartburn Last Admin: 10/27/23 10:11 Dose: 750 mg Clonidine HCl (Clonidine Hcl 0.1 Mg Tablet) 0.05 mg PO BID [facility]; Protocol Last Admin: 11/09/23 08:29 Dose: Not Given Famotidine (Famotidine 20 Mg Tablet) 20 mg PO BEDTIME [facility] Last Admin: 11/08/23 21:57 Dose: Not Given Hydroxyzine HCl (Hydroxyzine Hcl 25 Mg Tablet) 25 mg PO Q6H PRN PRN Reason: Anxiety Last Admin: 11/03/23 18:53 Dose: 25 mg Lorazepam (Lorazepam 0.5 Mg Tablet) 0.5 mg PO Q6H PRN PRN Reason: anxiety Last Admin: 11/07/23 16:42 Dose: 0.5 mg Lorazepam (Lorazepam 1 Mg Tablet) 2 mg PO DAILY PRN PRN Reason: for pre procedures Magnesium Hydroxide (Milk Of Magnesia 30 Ml Oral.Susp) 30 ml PO DAILY PRN PRN Reason: Constipation Last Admin: 10/23/23 18:04 Dose: 30 ml Omeprazole (Omeprazole 20 Mg Capsule.Dr) 20 mg PO DAILY@0630 [facility] Last Admin: 11/09/23 06:11 Dose: Not Given Trazodone HCl (Trazodone Hcl 50 Mg Tablet) 50 mg PO BEDTIME MRX1 PRN PRN Reason: Insomnia Last Admin: 11/03/23 23:09 Dose: 50 mg Allergies Allergies Allergy/AdvReac Type Severity Reaction Status Date / Time metoprolol AdvReac Diarrhea Verified 10/07/23 23:43 Assessment & Plan Assessment & Plan (1) Psychosis: Qualifiers: Psychosis type: unspecified psychosis type Qualified Code(s): F29 - Unspecified psychosis not due to a substance or known physiological condition Status: Acute Code(s): F29 - Unspecified psychosis not due to a substance or known physiological condition (2) Delirium: Status: Suspected Code(s): R41.0 - Disorientation, unspecified (3) Intellectual disability: Status: Acute Code(s): F79 - Unspecified intellectual disabilities (4) Left ovarian cyst: Status: Acute Code(s): N83.202 - Unspecified ovarian cyst, left side Assessment and Plan: Pelvic Ultrasound 10/19/23 IMPRESSION: Very limited examination. Limited transabdominal evaluation as the urinary bladder was not fully distended. The right ovary was not visualized. Further evaluation with MRI of the pelvis as clinically warranted. There is a 4.3 cm simple appearing cyst in the left ovary that is almost certainly benign in a patient of this age and for which no imaging follow-up is recommended in an asymptomatic patient. If an acute ovarian pathology such as torsion is clinically suspected, further evaluation with MRI pelvis is recommended. (5) Major depressive disorder, recurrent episode, sev (5) Major depressive disorder, recurrent episode, severe, with psychosis: Status: Chronic Code(s): F33.3 - Major depressive disorder, recurrent, severe with psychotic symptoms (6) UTI (urinary tract infection): Status: Resolved Code(s): N39.0 - Urinary tract infection, site not specified Plan 22 yo female with history of depression and anxiety admitted to [facility] due to rapid decompensation in context of recent covid infection. She is internally preoccupied and disorganized as well as almost mute with very few verbal utterances- whispering and mumbling. Recent history: Patient's mother, Latisha, says that prior to getting COVID September 28, patient was her regular self, without any history of psychotic or manic symptoms. Starting with COVID patient started to decompensate; about 5 days prior to the admission, patient was up all night, not sleeping at all, pacing the house and going into very is rooms in a disorganized manner; she was talking excessively and started complaining of auditory hallucinations (it was only once she got to the unit that she is expressed paranoid delusions). Mom says this is the 1st time patient has had any such manic episode. -it is possible that patient had some amount of COVID triggered encephalitis, maybe further complicated by UTI on admission. However, given mom's history of bipolar disorder combined with patient's current presentation (and absence of RDS, metabolic derangement, cardiac events-the lactic acid was elevated), it seems likely that this is a 1st manic break for patient. -at this time will treat for bipolar/psychosis Developmental Hx:-history of developmental delay; significant IEP throughout school history Family hx: Mother bipolar on [facility] course: 10/11/continue tx plan 10/12: Continue current management and treatment plan. 10/13: continue current management and treatment plan. 10/14 risperidone changed to liquid 10/15 continue tx plan; labs reordered, d/c antibiotic, encourage meals and fluids 10/16 Patient's mom currently present during interview. Patient gave clear verbal permission for sign writer letterer or painter to discuss case with her mother, both while patient was present and after patient left the room. -reviewed labs which are unremarkable -Prior to mom coming, Pt talking with peers, staff more freely though still often mumbling; when mom came patient became selectively mute, mumbling, started spitting into a basin. -Regarding mood patient said she is not good. When asked what she would like help with changing, she said to stop telling lies, but could not elaborate -Patient made some references that her family's trying to kill her or that her mom is trying to kill her; when sign writer letterer or painter asked her why she said because of the food, she was not supposed to eat it however she did... Patient could not clarify further. Patient was drinking water, saying she was thirsty. -Patient said she wanted to go home; said she was taking the medications as told, but accepted she would have to remain on the unit longer; patient decided to leave the room but not before she said that she thinks her mom is trying to get her killed. remains disorganized in speech and behavior with paranoid thinking; slept through the night; no manic symptoms -ordered Neuro consult to help r/o encephalitis 10/17 remains disorganized in speech and behavior, paranoid, guarded -discussed with Dr. Cornell who reports unlikely encephalitis (or due to Covid) and that given time elapsed since contracted Covid (sep 28), testing won't help much; recs doing pelvic ultrasound for teratoma (again unlikely) and getting EEG to see if any slowing; however, if anti-psychotics/mood stabilizers clear up symptoms, this would strongly point at an organic psychotic/manic origin. -per chart, pt does have hx of ovarian cyst Will continue w/ medication treatment; if does not clear up can begin to consider LP, MRI, anti-NDMA antibodies will get pelvic US and EEG (since non-invasive) 10/19/23 continue risperidone trial - no change as yet 10/20/23 improved more verbal ( mother not in today following her) co anxiety with elelvated hr and sometimes bp given prns clonidine, then aterax and clonazepam 10/20 pt remains w/ AH and paranoid delusion that mother wants her because she gave [food].. However, she is open to the idea that maybe she's mistaken, that her mind is playing tricks on her; also, she is more talkative and able to engage in conversation. She also showered and is drinking fluids more regularly (and eating a little better). She agrees to increase in Risperdal -mom came to visit; she thinks her daughter is about 5/10. -will increase risperdal (considered increasing depakote since likely bipolar, however no manic symptoms and prominent symptoms remain psychotic 10/21 little better; she feels so, she went to group and participated appropriately, talking more; however still with AH/paranoid delusions. will increase Riserpdal futrher 10/23/23 psychotic dx cont risperadol 10/23 no longer manic, but remains with intrusive AH and paranoid delusions (intermittently keeping her from eating) that have not lessened at all, despite being on Risperdal 7mg and Zyprexa (used as prn, but used frequently, up to 20mg). Likely risperdal +/- Zyprexa helped to quite some manic symptoms early on in admission (which soon fully resolved) but have not touched psychotic ones. Will dc both and start Haldol 10/24 remains with psychotic symptoms, AH, paranoid delusions... continue with Haldol titration 10/25 for the 1st time patient says AH is less bothersome; sign writer letterer or painter cautiously optimistic and will continue with current treatment plan 10/26 AH back to bothersome, saying mean things...continued paranoid delusions, food is poisoned and not eating meals (eating some things prepared by nurse); will increase haldol to 10mg BID to see if this med can be effective 10/27 Patient did not sleep last night, more disorganized today, talking less. Patient said she has not good and AH remains. A little later on patient not talking but sticking her tongue out. Given Benadryl; protruding tongue ceased but it has not clear if this was dystonia or just bizarre behavior as patient really does not talk about it much. Will DC Haldol Will start Depakote; patient not sleeping and though not clearly manic disorganized; also mother is stabilized on Depakote Will also start Ativan 2 mg and likely schedule throughout the day as patient may have a touch of catatonia 10/28 psychotic delirium combined with med side-effect very tired from ativan; unlilkely catatonia but will keep in mind pt showered with prompting; asked sign writer letterer or painter when she would go home but otherwise, not talking much will dc depakote; do med wash and then reassess med management approach 10/29 still quite disorganized but a little better than the day before; continues to have AH, paranoid delusions. Will continue holding medications and likely start Abilify tomorrow 10/30 patient is improved today, more organized, talking more, eating more. Says she is anxious; agrees to plan with Abilify -will start with Abilify 2 mg daily for couple days and then will advance to 5 mg 11/01/23 tolerating Abilify thus far. Continue with 2 mg today, increase to 5 mg 11/02/23. 11/02/2023: Continue current regimen and plans. Increasing Abilify tomorrow 11/03/2023: Continue current regimen and plans 11/03 Abilify recently increased to 10 mg; will add Ativan low-dose as p.r.n. for anxiety; will give Abilify longer to work before increasing (mother is treated with both Abilify and Depakote) 11/04 Patient talking much more freely, using full sentences and expressing her thoughts adequately; big contrast to prior days when she was so internally preoccupied it was difficult for her to talk. Unfortunately, patient remains with significant paranoid delusions that she is a rapist and a terrorist and needs to discharge so that she can do the right thing and present to the police station so she can be imprisoned. Continued auditory hallucinations that she believes are telling her the truth, that this sign writer letterer or painter is not a real physician, that his name is fake... Also continues to believe that food is poisoned and she has not eaten anything for 2 days, though she still feels okay about drinking water. She also says she refuses all medications going forward, that she does not want them and they are making her worse. -Later today she did eat pizza but then made herself vomit, explaining to sign writer letterer or painter that a combination of the voices told her and she thought it was poisoned. She still said she will eat [employer] if her mother brings it in -Red erythematous area on right cheek, slightly raised; says it has a little bit itchy. Will monitor; not warm to the touch, no signs of infection, no signs of trauma, open skin and does not appear to be a cellulitis -mother present and tried to persuade patient to stay on the unit and engaged in treatment; sign writer letterer or painter continue to encourage patient to take medication and since she is talking much better today, sign writer letterer or painter thinks that perhaps Abilify actually working (and hopefully not causing a medication rash on her cheek). -patient is refusing medication and refusing food both due to severe paranoid delusions and auditory hallucinations. She is asking about discharge so she can self present to the police thinking she is committed heinous crimes (thinks she may have raped someone, but is not sure...) -discussed further with her mother who agrees patient likely needs to be involuntary committed if she has not open to treatment; discussed various medication approaches but also discussed possibility of ECT which mother agrees with if needed. -sign writer letterer or painter will again discuss with neurologist since patient's progress plateaued despite medication; mom said that patient had an had MRI when she was about 14 years old to rule out tumor; history of ovarian cyst left side -Excerpts from neurology note 10/18/23 slow in all of her responses, both physical and verbal, and cognitive.. ...oriented to person, place, month and year; her address, her high school and when she graduated and how she spends her time at home; answers questions appropriately ...Speech is fluent and clear although slow. Cranial nerves II through XII are normal. Muscle tone and strength are normal. Reflexes symmetrical. Plantar response are flexor. Neck is supple ...I do not see any major signs to sufggest an encephalopathy. CT brain is normal. Labs unremarkable. EEG (10/21/23) Impression: This waking and briefly drowsy EEG is considered within normal limits Pelvic US 10/19/23: There is a 4.3 cm simple appearing cyst in the left ovary that is almost certainly benign in a patient of this age and for which no imaging follow-up is recommended in an asymptomatic patient. The right ovary was not visualized. 11/05 Same presentation; rash on right cheek improved -discussing ramon/ vanessa 11/06 No change in presentation and she continues to be disorganized, expressing paranoid delusions, asking if her mother is , saying that she murdered a lot of people she thinks...; sign writer letterer or painter again asked if patient would take medication and she again said no I have tried that already and it does not help... Patient is overall much less conversant and seems to be headed back towards mute Not eating; drinking fluids. Patient only showering and dressing with significant staff assistance and guidance -rt cheek rash appears to mostly have resolved; -sign writer letterer or painter discussed MRI with patient who agreed to it/consented. Discussed history with patient who was able to answer questions; discussed same with mother who corroborated patient's answers. -Place neuro consult; texted neurologist and waiting to hear back -Patient already had pelvic ultrasound; discussed with property management supervisor who said for a better view of ovaries would need to do intervaginal ultrasound. At this point sign writer letterer or painter and staff agree this would likely be too traumatizing for patient and will hold off ordering for now 11/07 Patient hardly talking; sometimes backing away when someone approaches; drinking some ensure which is helpful. Remains disorganized, shuffling through the halls aimlessly, pants falling down, floridly psychotic with paranoid delusions and auditory hallucinations. Patient will approach sign writer letterer or painter but then not say anything respond to questions. The little that she does talk she refers to paranoid delusional thoughts, saying she thinks she killed lots of people... Is her mother ... -though she consented to MRI, when the wheelchair came she got very frightened and refused to get in the wheelchair. On inquiry patient said I need my mother and not at yes that with her mother present she would do the MRI -neurologist Dr. Mckeon came to see patient however she remained mute, passive, lying in bed hardly moving -discussed case with Dr. Oconnor who agrees to move forward with MRI but that enter vaginal pelvic ultrasound can wait; also agrees with pursuing LP and for lab work to include Cell count, protein sugar, cultures, immunoelectrophoresus, viral pcr, autoimmune panel 11/08: continue current management and treatment plan. Working Formulation as of 11/08/23: Prior to admission, mother reports patient had what sounds like some manic behavior, not sleeping, pacing; Patient presented with disorganized behavior, AH and paranoid delusions. On admission she was started on antipsychotic medication and quickly had some improvement, no longer placing herself on the floor, talking, eating and drinking and a little more organized. Policy Checker discussed case with Neurologist Dr. Oconnor who met with patient and agreed that although patient had no prior history of manic/psychotic behavior and this onset coincided with donal COVID, there was at this point low concern for encephalopathy; her mother has bipolar disorder, patient has a history of psychiatric issues and presentation is in line with 1st break joana/psychosis. And although She soon plateaued sign writer letterer or painter considered that her initial improvement was due to medication response which per discussion with Dr. 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 -At this time it seems that patient has failed Risperdal, Zyprexa and Haldol. Abilify may have been working, but she has since decided to refuse all medication. -patient does have some catatonic like features however Ativan trial did not alleviate any symptoms and she refuses to continue with it -Given that patient is not getting better, remains floridly psychotic, disorganized, refusing medication...not eating any food due to persistent paranoid delusions and auditory hallucinations and wanting to discharge, will again pursue if there is possibly a contributing neurological component. ECT is also an option as there is no absolute contraindication, thus far patient seems to be refractory to medication and she has some catatonic symptoms as well. - Filed for involuntary commitment and substituted judgment as well -thankfully patient is adequately drinking fluids dx: -psychosis/joana -delirum; rule out encephalopathy -intellectual disability -hx ovarian cyst Plan: Section 7; petition the court for involuntary commitment and substituted judgment 15 min checks MRI with and without contrast ordered; waiting for patient compliance LP to be ordered when patient is willing;lab work to include Cell count, protein sugar, cultures, immunoelectrophoresus, viral pcr, autoimmune panel Ativan 0.5 mg p.r.n. for anxiety Continue Abilify 10mg daily (patient refusing) DC Ativan; has not helped, causing much drowsiness, making catatonia unlikely DC Depakote; will do med wash DC Haldol; not working, possibly causing dystonia. DC risperdal DC zyprexa prn; though patient was taking frequently dc'd depakote 500mg (pt refused so stopped) Hold: controldesogestrel-ethinyl estradiol [Apri] 0.15-0.03 mg tablet Hold: Auvelity 45-105 mg tablet,IR,delayed rel,biphasic (dextromethorphan bupropion) Other history: -Patient has had an IEP since she was in grade school, often in a therapeutic class environment; 1 on 1 help with all school work; mother says some developmental delay. -She does not think her daughter would be capable of obtaining or keeping a job. -Patient has had 1 friend from school throughout the past years, though the friendship recently ended; she has a lot of online friends. Patient also currently has a boyfriend that she met online but who visits. -Patient has history of intermittent refusal to drink fluids and maybe once every 6 months would end up coming to the hospital ED for dehydration. This was more common when she was in grade school and has only been a few times in the past year -med trials: Low-dose Zyprexa, Abilify; Beatrizaylar, never ended up vortioxetine Reason for continued inpatient stay Substantial Risk for: inability to function, rapid decompensation and med/psych decompensation Time Spent With Patient Time: Total time managing care of this patient today ____ minutes.
[2023-11-09 19:53] VITALS: BP 137/99; PULSE 130; RESP 18; TEMP 35.9; O2SAT 98
[2023-11-09 20:16] VITALS: BP 160/93; PULSE 124
--- NOTE | 2023-11-10 | ECG_ITS ---
Test Reason : awadom Blood Pressure : / mmHG Vent. Rate : 121 BPM Atrial Rate : 121 BPM P-R Int : 150 ms QRS Dur : 076 ms QT Int : 308 ms P-R-T Axes : 037 062 007 degrees QTc Int : 437 ms Sinus tachycardia Possible Left atrial enlargement Nonspecific T wave abnormality Abnormal ECG When compared with ECG of 08-NOV-2023 08:47, Nonspecific T wave abnormality no longer evident in Anterior leads Referred By: Dinesh Alexander Electronically Signed By:Aníbal Montez
[2023-11-10 08:17] VITALS: PULSE 150; O2SAT 98
--- NOTE | 2023-11-10 08:59 | P.PNPSI_ITS ---
Subjective Subjective Date of Service: 11/10/23 Reason For Visit: Depresssion Interim History: Met with patient; discussed with team When asked how she is doing, she says I am worried about momma Can't articulate why. RN report she continues to be paranoid about food and medications. She has been refusing her medications. She has been paranoid about food. She is telling patients they shouldn't be taking there medications. She has been disorganized and not sleeping. Was standing over her roommate's bed last night. Urinating in the room. MRI team not on site over the weekends. Defer till Saturday. Review of Systems Review of Systems No febrile illness or at this time any significant complain of headache Yes all other systems are reviewed and are negative and Unobtainable due to mental status Mental Status Exam Mental Status Exam Narrative: Pt is alert and oriented; behavior is disorganized; patient is not in distress; dressed in casual attire desheveled; mood is described as anxious and affect blunted; eye contact limited; psychomotor retardation present; Speech is impoverished and mostly mute; otherwise slow, soft; Thought process distracted; at times can be goal oriented; Thought content is on delusional, paranoid fears; denies any SI/HI. AH remains; Patients insight and judgment impaired. Patient Appearance: Appropriate Patient Orientation: Person, Place, Time and Situation Level of Consciousness: Alert Patient Behavior: Dependent, Cooperative, Passive, Suspicious, Timid, Anxious, Fearful and Distractible Behavior Comments: spontaneously sitting on floor, taking others belongings, Mood Description: Suspicious, Anxious and Apprehensive Affect Description: Suspicious, Anxious and Apprehensive Patient Cognition Impaired: Yes Ability to Follow Directions: Good Speech Pattern: Soft-Spoken, Delayed and Long Pauses Memory Description: Immediate Impaired Delusions: Paranoid Ideation Thought Process: Disoriented, Slowed Thinking and Confusion Thought Content: positive for Disoriented, positive for Preoccupation, positive for Thought Blocking and positive for Disorganized Abnormal Motor Activity Signs and Symptoms: Psychomotor Retardation Judgement: Poor Diagnostics Vital Signs (24Hr): Vital Signs - 24 hr 11/09/23 19:53 11/09/23 20:16 11/10/23 08:17 Temperature 96.7 F L Pulse Rate 130 H 124 H 150 H Respiratory Rate 18 Blood Pressure 137/99 H 160/93 H Pulse Oximetry 98 98 Oxygen Delivery Method Room Air BMI result Body Mass Index 26.8 Labs 10/16/23 08:46 11/07/23 19:29 Imaging Radiology Impressions: ITS Impressions Head CT 10/08/23 21:15 IMPRESSION: Unremarkable CT scan of the head. No evidence of acute territorial infarct or hemorrhage. Pelvis Ultrasound 10/19/23 08:16 IMPRESSION: Very limited examination. Further evaluation with MRI of the pelvis as clinically warranted. There is a 4.3 cm simple appearing cyst in the left ovary that is almost certainly benign in a patient of this age and for which no imaging follow-up is recommended in an asymptomatic patient. If an acute ovarian pathology such as torsion is clinically suspected, further evaluation with MRI pelvis is recommended. Medications Medications Current Medications Acetaminophen (Acetaminophen 325 Mg Tablet) 650 mg PO Q6H PRN PRN Reason: Headache/Pain Mild Scale (1-3) Last Admin: 11/02/23 15:57 Dose: 650 mg Al Hydroxide/Mg Hydroxide (Magnesium Hydrox/Alum Hydrox 30 Ml Oral.Susp) 30 ml PO Q6H PRN PRN Reason: Heartburn/Nausea Last Admin: 10/27/23 10:10 Dose: 30 ml Aripiprazole (Aripiprazole 10 Mg Tablet) 10 mg PO DAILY [facility] Last Admin: 11/10/23 08:39 Dose: Not Given Calcium Carbonate (Calcium Carbonate 750 Mg Tab.Chew) 750 mg PO Q4H PRN PRN Reason: Heartburn Last Admin: 10/27/23 10:11 Dose: 750 mg Clonidine HCl (Clonidine Hcl 0.1 Mg Tablet) 0.05 mg PO BID [facility]; Protocol Last Admin: 11/10/23 08:40 Dose: Not Given Famotidine (Famotidine 20 Mg Tablet) 20 mg PO BEDTIME KRISTI Last Admin: 11/09/23 20:18 Dose: Not Given Hydroxyzine HCl (Hydroxyzine Hcl 25 Mg Tablet) 25 mg PO Q6H PRN PRN Reason: Anxiety Last Admin: 11/03/23 18:53 Dose: 25 mg Lorazepam (Lorazepam 0.5 Mg Tablet) 0.5 mg PO Q6H PRN PRN Reason: anxiety Last Admin: 11/07/23 16:42 Dose: 0.5 mg Lorazepam (Lorazepam 1 Mg Tablet) 2 mg PO DAILY PRN PRN Reason: for pre procedures Magnesium Hydroxide (Milk Of Magnesia 30 Ml Oral.Susp) 30 ml PO DAILY PRN PRN Reason: Constipation Last Admin: 10/23/23 18:04 Dose: 30 ml Omeprazole (Omeprazole 20 Mg Capsule.Dr) 20 mg PO DAILY@0630 KRISTI Last Admin: 11/10/23 06:26 Dose: Not Given Trazodone HCl (Trazodone Hcl 50 Mg Tablet) 50 mg PO BEDTIME MRX1 PRN PRN Reason: Insomnia Last Admin: 11/03/23 23:09 Dose: 50 mg Allergies Allergies Allergy/AdvReac Type Severity Reaction Status Date / Time metoprolol AdvReac Diarrhea Verified 10/07/23 23:43 Assessment & Plan Assessment & Plan (1) Psychosis: Qualifiers: Psychosis type: unspecified psychosis type Qualified Code(s): F29 - Unspecified psychosis not due to a substance or known physiological condition Status: Acute Code(s): F29 - Unspecified psychosis not due to a substance or known physiological condition (2) Delirium: Status: Suspected Code(s): R41.0 - Disorientation, unspecified (3) Intellectual disability: Status: Acute Code(s): F79 - Unspecified intellectual disabilities (4) Left ovarian cyst: Status: Acute Code(s): N83.202 - Unspecified ovarian cyst, left side Assessment and Plan: Pelvic Ultrasound 10/19/23 IMPRESSION: Very limited examination. Limited transabdominal evaluation as the urinary bladder was not fully distended. The right ovary was not visualized. Further evaluation with MRI of the pelvis as clinically warranted. There is a 4.3 cm simple appearing cyst in the left ovary that is almost certainly benign in a patient of this age and for which no imaging follow-up is recommended in an asymptomatic patient. If an acute ovarian pathology such as torsion is clinically suspected, further evaluation with MRI pelvis is recommended. (5) Major depressive disorder, recurrent episode, sev (5) Major depressive disorder, recurrent episode, severe, with psychosis: Status: Chronic Code(s): F33.3 - Major depressive disorder, recurrent, severe with psychotic symptoms (6) UTI (urinary tract infection): Status: Resolved Code(s): N39.0 - Urinary tract infection, site not specified Plan 22 yo female with history of depression and anxiety admitted to due to rapid decompensation in context of recent covid infection. She is internally preoccupied and disorganized as well as almost mute with very few verbal utterances- whispering and mumbling. Recent history: Patient's mother, Latisha, says that prior to getting COVID September 28, patient was her regular self, without any history of psychotic or manic symptoms. Starting with COVID patient started to decompensate; about 5 days prior to the admission, patient was up all night, not sleeping at all, pacing the house and going into very is rooms in a disorganized manner; she was talking excessively and started complaining of auditory hallucinations (it was only once she got to the unit that she is expressed paranoid delusions). Mom says this is the 1st time patient has had any such manic episode. -it is possible that patient had some amount of COVID triggered encephalitis, maybe further complicated by UTI on admission. However, given mom's history of bipolar disorder combined with patient's current presentation (and absence of RDS, metabolic derangement, cardiac events-the lactic acid was elevated), it seems likely that this is a 1st manic break for patient. -at this time will treat for bipolar/psychosis Developmental Hx:-history of developmental delay; significant IEP throughout school history Family hx: Mother bipolar on [facility] course: 10/11/continue tx plan 10/12: Continue current management and treatment plan. 10/13: continue current management and treatment plan. 10/14 risperidone changed to liquid 10/15 continue tx plan; labs reordered, d/c antibiotic, encourage meals and fluids 10/16 Patient's mom currently present during interview. Patient gave clear verbal permission for leader writer to discuss case with her mother, both while patient was present and after patient left the room. -reviewed labs which are unremarkable -Prior to mom coming, Pt talking with peers, staff more freely though still often mumbling; when mom came patient became selectively mute, mumbling, started spitting into a basin. -Regarding mood patient said she is not good. When asked what she would like help with changing, she said to stop telling lies, but could not elaborate -Patient made some references that her family's trying to kill her or that her mom is trying to kill her; when leader writer asked her why she said because of the food, she was not supposed to eat it however she did... Patient could not clarify further. Patient was drinking water, saying she was thirsty. -Patient said she wanted to go home; said she was taking the medications as told, but accepted she would have to remain on the unit longer; patient decided to leave the room but not before she said that she thinks her mom is trying to get her killed. remains disorganized in speech and behavior with paranoid thinking; slept through the night; no manic symptoms -ordered Neuro consult to help r/o encephalitis 10/17 remains disorganized in speech and behavior, paranoid, guarded -discussed with Dr. Cornell who reports unlikely encephalitis (or due to Covid) and that given time elapsed since contracted Covid (sep 28), testing won't help much; recs doing pelvic ultrasound for teratoma (again unlikely) and getting EEG to see if any slowing; however, if anti-psychotics/mood stabilizers clear up symptoms, this would strongly point at an organic psychotic/manic origin. -per chart, pt does have hx of ovarian cyst Will continue w/ medication treatment; if does not clear up can begin to consider LP, MRI, anti-NDMA antibodies will get pelvic US and EEG (since non-invasive) 10/19/23 continue risperidone trial - no change as yet 10/20/23 improved more verbal ( mother not in today following her) co anxiety with elelvated hr and sometimes bp given prns clonidine, then aterax and clonazepam 10/20 pt remains w/ AH and paranoid delusion that mother wants her because she gave [food].. However, she is open to the idea that maybe she's mistaken, that her mind is playing tricks on her; also, she is more talkative and able to engage in conversation. She also showered and is drinking fluids more regularly (and eating a little better). She agrees to increase in Risperdal -mom came to visit; she thinks her daughter is about 5/10. -will increase risperdal (considered increasing depakote since likely bipolar, however no manic symptoms and prominent symptoms remain psychotic 10/21 little better; she feels so, she went to group and participated appropriately, talking more; however still with AH/paranoid delusions. will increase Riserpdal futrher 10/23/23 psychotic dx cont risperadol 10/23 no longer manic, but remains with intrusive AH and paranoid delusions (intermittently keeping her from eating) that have not lessened at all, despite being on Risperdal 7mg and Zyprexa (used as prn, but used frequently, up to 20mg). Likely risperdal +/- Zyprexa helped to quite some manic symptoms early on in admission (which soon fully resolved) but have not touched psychotic ones. Will dc both and start Haldol 10/24 remains with psychotic symptoms, AH, paranoid delusions... continue with Haldol titration 10/25 for the 1st time patient says AH is less bothersome; leader writer cautiously optimistic and will continue with current treatment plan 10/26 AH back to bothersome, saying mean things...continued paranoid delusions, food is poisoned and not eating meals (eating some things prepared by nurse); will increase haldol to 10mg BID to see if this med can be effective 10/27 Patient did not sleep last night, more disorganized today, talking less. Patient said she has not good and AH remains. A little later on patient not talking but sticking her tongue out. Given Benadryl; protruding tongue ceased but it has not clear if this was dystonia or just bizarre behavior as patient really does not talk about it much. Will DC Haldol Will start Depakote; patient not sleeping and though not clearly manic disorganized; also mother is stabilized on Depakote Will also start Ativan 2 mg and likely schedule throughout the day as patient may have a touch of catatonia 10/28 psychotic delirium combined with med side-effect very tired from ativan; unlilkely catatonia but will keep in mind pt showered with prompting; asked leader writer when she would go home but otherwise, not talking much will dc depakote; do med wash and then reassess med management approach 10/29 still quite disorganized but a little better than the day before; continues to have AH, paranoid delusions. Will continue holding medications and likely start Abilify tomorrow 10/30 patient is improved today, more organized, talking more, eating more. Says she is anxious; agrees to plan with Abilify -will start with Abilify 2 mg daily for couple days and then will advance to 5 mg 11/01/23 tolerating Abilify thus far. Continue with 2 mg today, increase to 5 mg 11/02/23. 11/02/2023: Continue current regimen and plans. Increasing Abilify tomorrow 11/03/2023: Continue current regimen and plans 11/03 Abilify recently increased to 10 mg; will add Ativan low-dose as p.r.n. for anxiety; will give Abilify longer to work before increasing (mother is treated with both Abilify and Depakote) 11/04 Patient talking much more freely, using full sentences and expressing her thoughts adequately; big contrast to prior days when she was so internally preoccupied it was difficult for her to talk. Unfortunately, patient remains with significant paranoid delusions that she is a rapist and a terrorist and needs to discharge so that she can do the right thing and present to the police station so she can be imprisoned. Continued auditory hallucinations that she believes are telling her the truth, that this leader writer is not a real physician, that his name is fake... Also continues to believe that food is poisoned and she has not eaten anything for 2 days, though she still feels okay about drinking water. She also says she refuses all medications going forward, that she does not want them and they are making her worse. -Later today she did eat pizza but then made herself vomit, explaining to leader writer that a combination of the voices told her and she thought it was poisoned. She still said she will eat [employer] if her mother brings it in -Red erythematous area on right cheek, slightly raised; says it has a little bit itchy. Will monitor; not warm to the touch, no signs of infection, no signs of trauma, open skin and does not appear to be a cellulitis -mother present and tried to persuade patient to stay on the unit and engaged in treatment; leader writer continue to encourage patient to take medication and since she is talking much better today, leader writer thinks that perhaps Abilify actually working (and hopefully not causing a medication rash on her cheek). -patient is refusing medication and refusing food both due to severe paranoid delusions and auditory hallucinations. She is asking about discharge so she can self present to the police thinking she is committed heinous crimes (thinks she may have raped someone, but is not sure...) -discussed further with her mother who agrees patient likely needs to be involuntary committed if she has not open to treatment; discussed various medication approaches but also discussed possibility of ECT which mother agrees with if needed. -leader writer will again discuss with neurologist since patient's progress plateaued despite medication; mom said that patient had an had MRI when she was about 14 years old to rule out tumor; history of ovarian cyst left side -Excerpts from neurology note 10/18/23 slow in all of her responses, both physical and verbal, and cognitive.. ...oriented to person, place, month and year; her address, her high school and when she graduated and how she spends her time at home; answers questions appropriately ...Speech is fluent and clear although slow. Cranial nerves II through XII are normal. Muscle tone and strength are normal. Reflexes symmetrical. Plantar response are flexor. Neck is supple ...I do not see any major signs to sufggest an encephalopathy. CT brain is normal. Labs unremarkable. EEG (10/21/23) Impression: This waking and briefly drowsy EEG is considered within normal limits Pelvic US 10/19/23: There is a 4.3 cm simple appearing cyst in the left ovary that is almost certainly benign in a patient of this age and for which no imaging follow-up is recommended in an asymptomatic patient. The right ovary was not visualized. 11/05 Same presentation; rash on right cheek improved -discussing ramon/ vanessa 11/06 No change in presentation and she continues to be disorganized, expressing paranoid delusions, asking if her mother is , saying that she murdered a lot of people she thinks...; leader writer again asked if patient would take medication and she again said no I have tried that already and it does not help... Patient is overall much less conversant and seems to be headed back towards mute Not eating; drinking fluids. Patient only showering and dressing with significant staff assistance and guidance -rt cheek rash appears to mostly have resolved; -leader writer discussed MRI with patient who agreed to it/consented. Discussed history with patient who was able to answer questions; discussed same with mother who corroborated patient's answers. -Place neuro consult; texted neurologist and waiting to hear back -Patient already had pelvic ultrasound; discussed with costuming supervisor who said for a better view of ovaries would need to do intervaginal ultrasound. At this point leader writer and staff agree this would likely be too traumatizing for patient and will hold off ordering for now 11/07 Patient hardly talking; sometimes backing away when someone approaches; drinking some ensure which is helpful. Remains disorganized, shuffling through the halls aimlessly, pants falling down, floridly psychotic with paranoid delusions and auditory hallucinations. Patient will approach leader writer but then not say anything respond to questions. The little that she does talk she refers to paranoid delusional thoughts, saying she thinks she killed lots of people... Is her mother ... -though she consented to MRI, when the wheelchair came she got very frightened and refused to get in the wheelchair. On inquiry patient said I need my mother and not at yes that with her mother present she would do the MRI -neurologist Dr. Mckeon came to see patient however she remained mute, passive, lying in bed hardly moving -discussed case with Dr. Oconnor who agrees to move forward with MRI but that enter vaginal pelvic ultrasound can wait; also agrees with pursuing LP and for lab work to include Cell count, protein sugar, cultures, immunoelectrophoresus, viral pcr, autoimmune panel 11/08: continue current management and treatment plan. 11/09: continue current management and treatment plan. Working Formulation as of 11/08/23: Prior to admission, mother reports patient had what sounds like some manic behavior, not sleeping, pacing; Patient presented with disorganized behavior, AH and paranoid delusions. On admission she was started on antipsychotic medication and quickly had some improvement, no longer placing herself on the floor, talking, eating and drinking and a little more organized. Central Office Operator discussed case with Neurologist Dr. Oconnor who met with patient and agreed that although patient had no prior history of manic/psychotic behavior and this onset coincided with donal COVID, there was at this point low concern for encephalopathy; her mother has bipolar disorder, patient has a history of psychiatric issues and presentation is in line with 1st break joana/psychosis. And although She soon plateaued leader writer considered that her initial improvement was due to medication response which per discussion with Dr. 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 -At this time it seems that patient has failed Risperdal, Zyprexa and Haldol. Abilify may have been working, but she has since decided to refuse all medication. -patient does have some catatonic like features however Ativan trial did not alleviate any symptoms and she refuses to continue with it -Given that patient is not getting better, remains floridly psychotic, disorganized, refusing medication...not eating any food due to persistent paranoid delusions and auditory hallucinations and wanting to discharge, will again pursue if there is possibly a contributing neurological component. ECT is also an option as there is no absolute contraindication, thus far patient seems to be refractory to medication and she has some catatonic symptoms as well. - Filed for involuntary commitment and substituted judgment as well -thankfully patient is adequately drinking fluids dx: -psychosis/joana -delirum; rule out encephalopathy -intellectual disability -hx ovarian cyst Plan: Section 7; petition the court for involuntary commitment and substituted judgment 15 min checks MRI with and without contrast ordered; waiting for patient compliance LP to be ordered when patient is willing;lab work to include Cell count, protein sugar, cultures, immunoelectrophoresus, viral pcr, autoimmune panel Ativan 0.5 mg p.r.n. for anxiety Continue Abilify 10mg daily (patient refusing) DC Ativan; has not helped, causing much drowsiness, making catatonia unlikely DC Depakote; will do med wash DC Haldol; not working, possibly causing dystonia. DC risperdal DC zyprexa prn; though patient was taking frequently dc'd depakote 500mg (pt refused so stopped) Hold: controldesogestrel-ethinyl estradiol [Apri] 0.15-0.03 mg tablet Hold: Auvelity 45-105 mg tablet,IR,delayed rel,biphasic (dextromethorphan bupropion) Other history: -Patient has had an IEP since she was in grade school, often in a therapeutic class environment; 1 on 1 help with all school work; mother says some developmental delay. -She does not think her daughter would be capable of obtaining or keeping a job. -Patient has had 1 friend from school throughout the past years, though the friendship recently ended; she has a lot of online friends. Patient also currently has a boyfriend that she met online but who visits. -Patient has history of intermittent refusal to drink fluids and maybe once every 6 months would end up coming to the hospital ED for dehydration. This was more common when she was in grade school and has only been a few times in the past year -med trials: Low-dose Zyprexa, Abilify; Vraylar, never ended up vortioxetine Reason for continued inpatient stay Substantial Risk for: inability to function, rapid decompensation and med/psych decompensation Time Spent With Patient Time: Total time managing care of this patient today ____ minutes.
[2023-11-10 10:10] VITALS: BP 174/105; PULSE 119; O2SAT 99
[2023-11-10 10:40] VITALS: BP 155/105; PULSE 125; TEMP 36.8
[2023-11-10 17:21] VITALS: BP 155/90; PULSE 150; RESP 18; TEMP 36.9; O2SAT 99
[2023-11-10 19:44] LABS: Hematocrit 40.4 % (37.0-47.0); Hemoglobin 13.4 g/dl (12.0-16.0); Mean Corpuscular HGB Conc 33.2 g/dl (31.0-35.0); Mean Corpuscular Hemoglobin 26.8 pg (27.0-33.0); Mean Corpuscular Volume 80.8 fL (80.0-98.0); Mean Platelet Volume 10.2 fL (9.4-12.3); Platelet Count 454 X10*3/uL (160-400); Red Cell Distribution Width 16.2 % (11.0-16.0); White Blood Count 12.4 X10*3/uL (4.8-10.8)
[2023-11-10 19:52] LABS: Glucose, Whole Blood 89 mg/dL (60-115)
[2023-11-10 20:10] LABS: Anion Gap 22 (12-20); Blood Urea Nitrogen 5 mg/dL (9-16); Carbon Dioxide 20 mmol/L (22-29); Chloride 103 mmol/L (96-108); Creatinine Clr Calc Pharmacy 115.8; Estimated Glomerular Filt Rate > 60; Glucose Random 86 mg/dL (60-115); Potassium 3.7 mmol/L (3.3-5.1); Sodium 141 mmol/L (135-145); Troponin-I High Sensitivity < 2.7 ng/L (<3.5-17.0)
--- NOTE | 2023-11-13 08:30 | P.DS_ITS ---
DS: Providers Provider Date of Service: 11/10/23 Date of admission: 10/09/23 15:10 Date of discharge: 11/10/23 Primary care physician: Unknown Physician Attending physician on admission: Hossein Smith Consults: 10/17/23 16:28 Consult to Neurology Routine Consulting Provider: [facility] Reason for consultation: r/o covid encephalitis Has provider been notified: No 11/07/23 13:59 Consult to Neurology Routine Consulting Provider: Maxx Oconnor Reason for consultation: re-consult for continued symptoms Has provider been notified: Yes Attending physician on discharge: Giovanni Saucedo DS: Diagnosis Discharge Diagnosis (1) Psychosis: Status: Resolved (2) Delirium: Status: Resolved (3) Intellectual disability: Status: Acute (4) Left ovarian cyst: Status: Inactive (5) Major depressive disorder, recurrent episode, severe, with psychosis: Status: Chronic (6) UTI (urinary tract infection): Status: Resolved DS: Medications Discharge Medications Home Medications: Home Medications Medication Instructions Recorded Confirmed famotidine 20 mg tablet 20 mg PO BEDTIME 10/08/23 10/08/23 pantoprazole 20 mg tablet,delayed 20 mg PO DAILY 10/08/23 10/08/23 release Previous Rx's Medication Instructions Recorded acetaminophen 325 mg tablet 650 mg (2 x 325 mg) PO Q6H PRN 11/11/23 Pain, Mild (Pain Scale 1-3) #0 tabs docusate sodium 100 mg capsule 100 mg PO DAILY PRN Constipation 11/11/23 #0 caps enoxaparin 40 mg/0.4 mL 40 mg (0.4 mL) subcut Q24H #0 mL 11/11/23 subcutaneous syringe sodium chloride 0.9 % (flush) (BD 3 ml IVFLUSH QSHIFT #0 mL 11/11/23 PosiFlush Normal Saline 0.9 % injection syringe) Mental Status Exam Mental Status Exam Narrative: Pt is alert and oriented; behavior is disorganized; patient is not in distress; dressed in casual attire desheveled; mood is described as anxious and affect blunted; eye contact limited; psychomotor retardation present; Speech is impoverished and mostly mute; otherwise slow, soft; Thought process distracted; at times can be goal oriented; Thought content is on delusional, paranoid fears; denies any SI/HI. remains; Patients insight and judgment impaired. Data Data Completed and Pending Completed studies during hospitalization [Text1]: 11/07/23 11/10/23 11/10/23 19:29 19:38 19:48 WBC 12.4 H RBC 5.00 Hgb 13.4 Hct 40.4 MCV 80.8 MCH 26.8 L MCHC 33.2 RDW 16.2 H Plt Count 454 H MPV 10.2 Absolute Nucleated RBC 0.000 Nucleated RBC % (auto) 0.0 Sodium 142 141 Potassium 4.0 3.7 Chloride 104 103 Carbon Dioxide 26 20 L Anion Gap 16 22 H BUN 6 L 5 L Creatinine 0.68 0.66 Estim Creat Clear Calc 112.4 115.8 Estimated GFR > 60 > 60 POC Glucose 89 Random Glucose 101 86 Lactic Acid Calcium 10.2 10.0 Total Bilirubin 0.6 AST 81 H ALT 87 H Alkaline Phosphatase 89 Troponin I High Sens < 2.7 Total Protein 7.8 Albumin 4.5 Ref Lab Test Result Pending 11/10/23 19:50 WBC RBC Hgb Hct MCV MCH MCHC RDW Plt Count MPV Absolute Nucleated RBC Nucleated RBC % (auto) Sodium Potassium Chloride Carbon Dioxide Anion Gap BUN Creatinine Estim Creat Clear Calc Estimated GFR POC Glucose Random Glucose Lactic Acid 1.0 Calcium Total Bilirubin AST ALT Alkaline Phosphatase Troponin I High Sens Total Protein Albumin Ref Lab Test Result 10/08/23 Unknown Urine clean catch - Urine hinds top Urine Culture - Final Imaging Diagnostic Imaging Impressions Head CT 10/08/23 21:15 IMPRESSION: Unremarkable CT scan of the head. No evidence of acute territorial infarct or hemorrhage. Pelvis Ultrasound 10/19/23 08:16 IMPRESSION: Very limited examination. Further evaluation with MRI of the pelvis as clinically warranted. There is a 4.3 cm simple appearing cyst in the left ovary that is almost certainly benign in a patient of this age and for which no imaging follow-up is recommended in an asymptomatic patient. If an acute ovarian pathology such as torsion is clinically suspected, further evaluation with MRI pelvis is recommended. DS: Summary Hospital Course Hospital Course: 22 yo female with history of depression and anxiety admitted to [facility] due to rapid decompensation in context of recent covid infection. She is internally preoccupied and disorganized as well as almost mute with very few verbal utterances- whispering and mumbling. Patient transferred to medical floor 11/10/2023 for syncopal episode following elevated BP of 192/113, heart rate 158, and elevated temperature of 99.9 degrees; patient diaphoretic, dry mucous membranes. Concern was for severe dehydration. Apparently patient had been refusing all food and drink, as well as all medications, for the past 2-3 days. Of note, patient had significant workup for tachycardia by cardiology in early 2022. Workup showed echo with LVEF of 55-60% without valvular issues; Holter with underlying sinus rhythm with rate of 103/min with frequent sinus tachycardia; tilt-table test with orthostatic BP and HR changes suggestive of vasovagal syncope; recommendation at that time was for increasing fluid intake and liberalizing salt intake. Cardiology at that time thought that tachycardia was chronic with perhaps some component of deconditioning or possibly inappropriate sinus tachycardia. Advised against using beta-blockers or other rate slowing agents. Prior to transfer, hospital course: Working Formulation as of 11/08/23: Prior to admission, mother reports patient had what sounds like some manic behavior, not sleeping, pacing; Patient presented with disorganized behavior, AH and paranoid delusions. On admission she was started on antipsychotic medication and quickly had some improvement, no longer placing herself on the floor, talking, eating and drinking and a little more organized. Veneer Glue Jointer Feedback discussed case with Neurologist Dr. Oconnor who met with patient and agreed that although patient had no prior history of manic/psychotic behavior and this onset coincided with donal COVID, there was at this point low concern for encephalopathy; her mother has bipolar disorder, patient has a history of psychiatric issues and presentation is in line with 1st break joana/psychosis. And although She soon plateaued abstract writer considered that her initial improvement was due to medication response which per discussion with Dr. 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 -At this time it seems that patient has failed Risperdal, Zyprexa and Haldol. Abilify may have been working, but she has since decided to refuse all medication. -patient does have some catatonic like features however Ativan trial did not alleviate any symptoms and she refuses to continue with it -Given that patient is not getting better, remains floridly psychotic, disorganized, refusing medication...not eating any food due to persistent paranoid delusions and auditory hallucinations and wanting to discharge, will again pursue if there is possibly a contributing neurological component. ECT is also an option as there is no absolute contraindication, thus far patient seems to be refractory to medication and she has some catatonic symptoms as well. -F iled for involuntary commitment and substituted judgment as well -was adequately drinking fluids but stopped prior to transfer. 11/07 Patient hardly talking; sometimes backing away when someone approaches; drinking some ensure which is helpful. Remains disorganized, shuffling through the halls aimlessly, pants falling down, floridly psychotic with paranoid delusions and auditory hallucinations. Patient will approach abstract writer but then not say anything respond to questions. The little that she does talk she refers to paranoid delusional thoughts, saying she thinks she killed lots of people... Is her mother ... -though she consented to MRI, when the wheelchair came she got very frightened and refused to get in the wheelchair. On inquiry patient said I need my mother and not at yes that with her mother present she would do the MRI -neurologist Dr. Mckeon came to see patient however she remained mute, passive, lying in bed hardly moving -discussed case with Dr. Oconnor who agrees to move forward with MRI but that enter vaginal pelvic ultrasound can wait; also agrees with pursuing LP and for lab work to include Cell count, protein sugar, cultures, immunoelectrophoresus, viral pcr, autoimmune panel Time spent discussing smoking cessation with patient: 3 to 10 minutes Status at Discharge Overall status at discharge: patient is not back to baseline Time Spent with Patient Time attestation: Total time managing care of this patient today ____ minutes. Time spent: Less than 30 minutes Discharge Plan Discharge Anticipated Discharge Date/Time: 11/10/23 20:43 Patient Disposition: Xfer Other Discharge Diagnosis: Psychotic depression, syncope, catatonia Referrals: Physician,Unknown J [Primary Care Provider] - 1 Week Discharge Medications: Discontinued lorazepam 0.5 mg tablet 0.5 mg PO DAILY PRN (Reason: panic attack) Caplyta 21 mg capsule 21 mg PO DAILY No Action clozapine 50 mg tablet See Rx Instructions .ROUTE .COMPLEX Qty: 60 0RF Rx Instructions: take 1.5 tablets at bedtime for 3 days and then take 2 tabs at bedtime clonidine HCl 0.1 mg Tablet 0.1 mg PO Q4H PRN (Reason: anxiety) 30 Days Qty: 30 0RF Protocol: Hold for SBP< HOLD for SBP < : 90 trazodone 50 mg Tablet 50 mg PO BEDTIME PRN (Reason: Insomnia) 30 Days Qty: 30 0RF Rx Instructions: may repeat once if needed ondansetron 4 mg Tablet,Disintegrating 4 mg translingual Q6H PRN (Reason: Nausea And Vomiting) 30 Days Qty: 30 1RF lidocaine 5 % Ointment 1 appl topical Q7D PRN (Reason: numb area prior to blood draw) 30 Days Qty: 35.44 1RF Protocol: Apply to: Apply to: area prior to blood draw Discharge Orders: Discharge Order (Routine); Ordered 11/10/23 Ordered By: Giovanni Saucedo Diet: Advance to usual diet Activity on Discharge: As tolerated Stand Alone Forms: Patient Portal Discharge page Print Language: Pashto Care Plan Goals: Resolution of syncope Rehydration Health Concerns: Syncope, dehydration, psychosis Plan of Treatment: Resolution of syncope Rehydration Assessment: Admitted on 10/10/23: HPI Subjective Notes: Lai Warning and Section 12B Medical Problems Affecting Mental Status: No Narrative: 22 yr old admitted to after arriving to [facility] ED via ambulance. Pt was at [facility] in [place] when she experienced quick decompensation over 2 week with withdrawal, disorientation, impaired insight, not eating and drinking, auditory hallucinations, paranoia and SI. Pt presents today disorganized, withdrawn, barely speaking, saying very few words and words are mumbled and almost inaudible; she shakes head yes or no at times. She endorses auditory hallucinations but does not described when asked; she endorses suicidal ideation with ideas of hurting herself and wanting to but does not describe plan or answer about intent. she is lying in bed, poor eye contact. Per care team evaluation pt had been manic and not sleeping for several weeks; her mother described her roaming the house at night. Pt had recent covid infection. Pt has therapy and psychiatry at [facility] Pt has been off all meds for 3 months due to all meds tried made her sick per mother's report. Pt unable to repsond to information regarding conditional voluntary and unable to sign slef into unti due to mental staus; she remains on section 12 B Past Psychiatric History: evaluated by care team at [facility] in past on 09/22/23 for reported overdose of 3 tablets of benadryl 25mg; inpatient at [facility] 2018. [facility]. Ongoing outpatient at [facility] Medical Evaluation Reviewed: Yes GERD Current UTI on antibiotic POTS per record Benign reactive Hypertension supraventricular Tachycardia -multiple workups including 3 day holter hx vit B deficincey hx vit D deficiency migraines hx ovarian cysts PMFSH Medical History Contraception management Vitamin D deficiency Vitamin B12 deficiency Uses control Hx of ovarian cyst Epigastric abdominal pain Orthostatic hypotension Supraventricular tachycardia by ECG Major depression in partial remission Left ovarian cyst Migraine Surgical History H/O removal of cyst Family History: lives with mother and grandfather Social History: has BF per mother but he dosed not live locally Substance History: denies per record and tox screen negative Trauma History: pt unable to answer today While on inpatient unit, patient remained disorganized and last few days has not been eating or drinking much, becoming more disorganized, refusing medications. She had a syncopal episode. HOUSE PAINTING INSTRUCTOR was called and patient was transferred to medicine for further monitoring. Patient is also followed by neurology. She is supposed to get a brain MRI. Discharge Date/Time: 11/10/23 20:43
== END 2023-11-10 20:43 | disposition other institution (70) | DRG 751 ==
LOC: HO.ED 10-08 10:04 → HO.PM5 10-09 17:25
PROVIDERS: Clinical Nurse Specialist Psychiatric/Mental Health; Clinical Nurse Specialist Psychiatric/Mental Health, Adult; Student in an Organized Health Care Education/Training Program; Admitting Provider Psychiatry & Neurology Psychiatry; Emergency Provider Emergency Medicine; Visit Provider Psychiatry & Neurology Psychiatry
DX: F33.3 Major depressive disorder, recurrent, severe with psychotic symptoms (principal); U07.1 COVID-19; R45.851 Suicidal ideations; F79 Unspecified intellectual disabilities; R41.0 Disorientation, unspecified; N83.202 Unspecified ovarian cyst, left side; K21.9 Gastro-esophageal reflux disease without esophagitis; N39.0 Urinary tract infection, site not specified; Z79.899 Other long term (current) drug therapy
CPT/HCPCS: 0241U; 36415; 70450; 76856; 80048; 80053; 80061; 80143; 80179; 80307; 81001; 81025; 82306; 82607; 82746; 82947; 83036; 83605; 83735; 84443; 84484; 85025; 85027; 86255; 86617; 86618; 87086; 87635; 93005; 95816; 99285; S9485

== ENCOUNTER 2023-10-09 15:10 | Outpatient (BNV) | payer OTHER, SELFPAY | END 2023-10-24 12:47 | PROVIDERS: Admitting Provider Psychiatry & Neurology Psychiatry; Emergency Provider Emergency Medicine; Visit Provider Internal Medicine Cardiovascular Disease | DX: R07.9 Chest pain, unspecified (principal); R45.851 Suicidal ideations | CPT/HCPCS: 93010 ==

== ENCOUNTER 2023-10-09 15:10 | Outpatient (BNV) | payer OTHER, SELFPAY | END 2023-11-08 07:00 | PROVIDERS: Admitting Provider Psychiatry & Neurology Psychiatry; Emergency Provider Emergency Medicine; Visit Provider Internal Medicine | DX: R00.0 Tachycardia, unspecified (principal) | CPT/HCPCS: 93010 ==

== ENCOUNTER 2023-10-09 15:10 | Outpatient (BNV) | payer OTHER, SELFPAY | END 2023-10-18 16:36 | PROVIDERS: Admitting Provider Psychiatry & Neurology Psychiatry; Emergency Provider Emergency Medicine; Visit Provider Internal Medicine | DX: I10 Essential (primary) hypertension (principal); R94.31 Abnormal electrocardiogram [ECG] [EKG] | CPT/HCPCS: 93010 ==

== ENCOUNTER 2023-10-09 15:10 | Outpatient (BNV) | payer OTHER, SELFPAY | END 2023-11-10 19:53 | PROVIDERS: Admitting Provider Psychiatry & Neurology Psychiatry; Emergency Provider Emergency Medicine; Visit Provider Internal Medicine Cardiovascular Disease | DX: R00.0 Tachycardia, unspecified (principal) | CPT/HCPCS: 93010 ==

== ENCOUNTER → 2023-10-09 15:10 | Outpatient (BNV) | payer OTHER, SELFPAY | PROVIDERS: Admitting Provider Psychiatry & Neurology Psychiatry; Emergency Provider Emergency Medicine; Visit Provider Psychiatry & Neurology Neurology | DX: F33.3 Major depressive disorder, recurrent, severe with psychotic symptoms (principal) | CPT/HCPCS: 99222; 99232 ==

== ENCOUNTER → 2023-10-09 15:10 | Outpatient (BNV) | payer OTHER, SELFPAY | PROVIDERS: Admitting Provider Psychiatry & Neurology Psychiatry; Emergency Provider Emergency Medicine; Visit Provider Clinical Nurse Specialist Psychiatric/Mental Health | DX: F29 Unspecified psychosis not due to a substance or known physiological condition (principal); R41.0 Disorientation, unspecified; F79 Unspecified intellectual disabilities; N83.202 Unspecified ovarian cyst, left side; F33.3 Major depressive disorder, recurrent, severe with psychotic symptoms; N39.0 Urinary tract infection, site not specified | CPT/HCPCS: 90792; 99231; 99232; 99233; 99238; 99499 ==

== ENCOUNTER → 2023-10-09 15:10 | Outpatient (BNV) | payer OTHER, SELFPAY | PROVIDERS: Admitting Provider Psychiatry & Neurology Psychiatry; Emergency Provider Emergency Medicine; Visit Provider Psychiatry & Neurology Psychiatry | DX: F29 Unspecified psychosis not due to a substance or known physiological condition (principal); R41.0 Disorientation, unspecified; F79 Unspecified intellectual disabilities; N83.202 Unspecified ovarian cyst, left side; F33.3 Major depressive disorder, recurrent, severe with psychotic symptoms; N39.0 Urinary tract infection, site not specified | CPT/HCPCS: 99232 ==

== ENCOUNTER 2023-11-10 20:40 | Outpatient (BNV) | payer OTHER, SELFPAY | END 2023-11-11 07:00 | PROVIDERS: Admitting Provider Student in an Organized Health Care Education/Training Program; Visit Provider Internal Medicine Cardiovascular Disease | DX: I36.1 Nonrheumatic tricuspid (valve) insufficiency (principal); R00.0 Tachycardia, unspecified | CPT/HCPCS: 93306 ==

== ENCOUNTER 2023-11-10 20:40 | Inpatient (IN) | payer OTHER, SELFPAY ==
--- NOTE | ~2023-11-10 | CT_ITS ---
EXAMINATION: CT HEAD WITH CONTRAST CLINICAL INFORMATION: Encephalopathy. COMPARISON: Head CT from 10/08/2023. TECHNIQUE: Contiguous axial imaging was performed from the skullbase to vertex following the intravenous administration of 85 mL Omnipaque 350. This CT examination was performed using dose optimization techniques as appropriate, variously including the following: *Automated exposure control *Adjustment of mA and/or kV according to patient size (this includes techniques or standardized protocols for targeted exams where dose is matched to indication/reason for exam; i.e. extremities or head) *Use of iterative reconstruction technique DLP: 592 mGy-cm. FINDINGS: There is no evidence of acute intracranial hemorrhage or territorial infarction. No abnormal mass effect or midline shift is seen. Duffy to white matter differentiation is well preserved. No extra-axial fluid collections are identified. There is no abnormal enhancement. The ventricles are normal in size. There is no abnormal attenuation within the brain parenchyma. The osseous structures and soft tissues are normal. The mastoid air cells and visualized portions of the paranasal sinuses are well aerated. CT/CT head/brain w IV con IMPRESSION: No acute intracranial pathology. No abnormal enhancement.
--- NOTE | ~2023-11-10 | FL_ITS ---
EXAMINATION: XR LUMBAR PUNCTURE CLINICAL INFORMATION: Altered mental status COMPARISON: None available. TECHNIQUE/FINDINGS: Informed consent was obtained. Sedation provided by anesthesiologist. Patient was placed prone on the fluoroscopy table. A site on the lower back to the left of midline was selected, marked and sterilely prepped and draped. Following the administration of 1% lidocaine for local anesthesia, a 22-gauge spinal needle was inserted at the L3-L4 level under AP and lateral fluoroscopic guidance. Cerebrospinal fluid was encountered. Approximately 8 mL was collected into 4 vials. The needle was removed. A dressing was applied. Patient tolerated the procedure well with no immediate complications. FLUOROSCOPY TIME: 1.5 minutes FL/FL guided lumbar puncture LP IMPRESSION: Image guided lumbar puncture at L3-L4
--- NOTE | ~2023-11-10 | XR_ITS ---
EXAMINATION: XR CHEST CLINICAL INFORMATION: Tachycardia COMPARISON: 10/02/2023 TECHNIQUE: Frontal view of the chest was obtained. FINDINGS: The lungs are clear with no focal consolidation. No evidence of pneumothorax, pulmonary edema, or pleural effusions. The cardiomediastinal silhouette is unremarkable. No acute osseous findings. XR/XR chest 1V IMPRESSION: No acute cardiopulmonary findings.
[2023-11-10 20:15] VITALS: BP 143/89; PULSE 108; RESP 16; TEMP 36.4; O2SAT 100
--- NOTE | 2023-11-10 20:56 | PM.IMHP ---
History of Present Illness Date of Service: 11/10/23 Attending physician on admission: John Swanson Chief Complaint: Syncopal episode Pt is a 23-year-old female with a PMH significant for anxiety, depression, GERD,?chronic tachycardia, and likely cognitive delay who is transferred from psych unit to the medical floor after syncopal episode. Pt initially presented to our ED after not sleeping for 3 days, disorientation, auditory hallucinations, and paranoid and delusional behavior with vague SI. Was contacted by nursing as patient had elevated BP of 192/113, heart rate 158, and elevated temperature of 99.9 degrees. Concern was for severe dehydration. Apparently patient had been refusing all food and drink, as well as all medications, for the past 2-3 days. Patient apparently has some kind of cognitive delay, and is unable to provide any meaningful HPI. Patient only asks about her mother during interview and exam. Nursing states that she seems more confused over the past 1-2 days. Upon examination patient appeared diaphoretic, pale, and with dry mucous membranes. Initial bloodwork was ordered and drawn. Patient then stood up to walk to nurses' station and then had syncopal episode. Was caught by nurse who was walking along with her and generally lowered to the floor and then set in a chair. Syncopal episode lasted a few seconds long. Of note, patient had significant workup for tachycardia by cardiology in early 2022. Workup showed echo with LVEF of 55-60% without valvular issues; Holter with underlying sinus rhythm with rate of 103/min with frequent sinus tachycardia; tilt-table test with orthostatic BP and HR changes suggestive of vasovagal syncope; recommendation at that time was for increasing fluid intake and liberalizing salt intake. Cardiology at that time thought that tachycardia was chronic with perhaps some component of deconditioning or possibly inappropriate sinus tachycardia. Advised against using beta-blockers or other rate slowing agents. Labs were significant for leukocytosis of 12.4, otherwise unremarkable. . Creatinine 0.66. No electrolyte abnormalities. POC Glucose 89. Lactic acid 1.0. EKG demonstrated sinus tachycardia of 121 with no evidence of significant ST elevations or depressions. Pt will be admitted to the hospital for treatment and further evaluation of syncopal episode. Review of Systems Review of Systems: Unable to obtain due to patient's mentation [facility] Medical History Intellectual disability Contraception management Vitamin D deficiency Vitamin B12 deficiency Uses control Hx of ovarian cyst Epigastric abdominal pain Orthostatic hypotension Supraventricular tachycardia by ECG Major depression in partial remission Left ovarian cyst Migraine Family History Mother Bipolar disorder Mental health disorder Surgical History H/O removal of cyst Social History Household Members: Unknown / Unable to assess Household Members Other:: mother and MGF Housing: House Alcohol intake: never Patient Tobacco Use Status: Never used Tobacco e-Cigarette/Vaping Use: Never Used service: No Current occupational status: unemployed Sexual orientation: Unable to collect Cognitive needs: No Hearing needs: No Vision needs: No Meds Allergies Allergy/AdvReac Type Severity Reaction Status Date / Time metoprolol AdvReac Diarrhea Verified 10/07/23 23:43 Active Medications: Current Medications Acetaminophen (Acetaminophen 325 Mg Tablet) 650 mg PO Q6H PRN PRN Reason: Pain, Mild (Pain Scale 1-3) Benzonatate (Benzonatate 100 Mg Capsule) 100 mg PO TID PRN PRN Reason: Cough Docusate Sodium (Docusate Sodium 100 Mg Capsule) 100 mg PO DAILY PRN PRN Reason: Constipation Enoxaparin Sodium (Enoxaparin Sodium 40 Mg/0.4 Ml Syringe) 40 mg SUBCUT Q24H [facility] Lactated Ringer's (Lr) 1,000 mls @ 999 mls/hr IV .Q1H1M KRISTI Stop: 11/10/23 21:45 Lactated Ringer's (Lr) 1,000 mls @ 100 mls/hr IVCONT .Q10H [facility] Melatonin (Melatonin 3 Mg Tablet) 6 mg PO BEDTIME PRN PRN Reason: Insomnia Sodium Chloride (0.9 % Sodium Chloride Flush 3 Ml Syringe) 3 ml IVFLUSH QSHIFT [facility] Home Medications Medication Instructions Recorded Confirmed Last Taken Type famotidine 20 mg tablet 20 mg PO BEDTIME 10/08/23 10/08/23 Unknown History pantoprazole 20 mg tablet,delayed 20 mg PO DAILY 10/08/23 10/08/23 Unknown History release Physical Exam Vital Signs and Narrative: Constitutional: Alert, in no acute distress. Mental Status: Confused, not oriented to person, place, or time. Eyes: Pupils are equal, round, and reactive to light. Ear, Nose, and Throat: Oropharynx clear, mucous membranes dry. Ears and nose without deformities. Trachea midline. Respiratory: Clear to auscultation bilaterally. No wheezing, rales, or rhonchi. Cardiovascular: S1, S2 tachy. Gastrointestinal: Abdomen soft, non-tender, non-distended. Normal bowel sounds. Neurologic: Cranial nerves II-XII are grossly intact bilaterally. No focal neurological deficits. Moves all extremities spontaneously. Skin: Warm, dry. Extremities: No edema. Assessment and Plan (1) Syncope: Status: Acute Plan Pt is a 23-year-old female with a PMH significant for anxiety, depression, GERD,?chronic tachycardia, and likely cognitive delay who is transferred from psych unit to the medical floor after syncopal episode while on the unit. Syncopal episode Differential includes vasovagal, cardiac, orthostatic POC glucose 89 at time of presentation; patient without seizure-like or postictal activity Pt with reduced p.o. intake the past 2-3 days, clinically appears dry Check orthostatics tomorrow CBC/BMP negative Will check CXR, UA, RSV/COVID/flu Echocardiogram IVF: Lactated Ringer's Monitor on telemetry Tachycardia HR in the 150s today, has been as high as 166 while on the unit Appears chronic; has had extensive cardiology workup in the past including echo, Holter monitor, and tilt-table test; results overall suggestive of vasovagal syncope, and recommendation then was to increase fluid and salt intake Treat as above Leukocytosis WBCs 12.4 Likely secondary to hemoconcentration No evidence of bacterial infection: Patient does not meet sepsis criteria No indication for antibiotic treatment at this time Check CXR, UA Mood disorder Continue current meds GERD Continue ppi Full Code Attending:?Dr. Dotson DVT Prophylaxis: Lovenox Patient will be admitted to the hospital under observation for treatment and further evaluation of syncopal episode. Quality Stroke Does the patient have a stroke diagnosis?: No VTE Prior VTE?: No VTE Risk Level:: Medical - moderate - high VTE Device Contraindication: Treatment Not Indicated VTE Drug Contraindication: N/A - Med Ordered
[2023-11-10] MEDS: Melatonin 3 MG TABLET 6 MG PO (22:04)
[2023-11-10] MEDS: Enoxaparin Sodium 40 MG/0.4 ML SYRINGE SUBCUT (22:04)
[2023-11-10] MEDS: Lactated Ringers 1,000 ML 999 ML IV (22:05)
[2023-11-10] MEDS: Lactated Ringers 1,000 ML 100 ML IVCONT (23:08)
[2023-11-10 23:50] LABS: Influenza A PCR NEGATIVE (Negative); Influenza B PCR NEGATIVE (Negative); Resp Syncy Virus RNA Qual PCR NEGATIVE (Negative); SARS COV2 PCR INHOUSE NEGATIVE (Negative)
[2023-11-10 23:56] VITALS: BP 124/72; PULSE 81; RESP 14; TEMP 36.8; O2SAT 100
[2023-11-11] VITALS (9 sets, daily range): BP systolic 121–159; BP diastolic 80–94; PULSE 110–141; RESP 16–20; TEMP 36.1–36.9; O2SAT 97–99
--- NOTE | 2023-11-11 02:01 | PC.NURSE ---
Addendum entered by Thomas Rainey RN 11/11/23 06:06: Pt did not void this shift. Bladder scanned for 304. Addendum entered by Thomas Rainey RN 11/11/23 02:20: Pr refusing Zyprexa. notified. Original Note: Pt transferred from after being TUBE W[employer]ER for syncopal episode. Upon admission patient confused, unable to answer orientation questions besides name. Vague with responses. IV started and LR infusing as ordered. Encouraged PO intake. Pt ate 1/2 of sandwich and had sips of water. ST on supervisor paper testing from 100-130s. At approx 0145 pt attempting to get OOB multiples times. Ambulated with 2 assist to bathroom multiple time, with no void. Pt stated people are dying because of me , attempt to reorient patient numerous times and patient continues to believe people are dying. MD Dotson notified and 1x order of PO Zyprexa ordered.
[2023-11-11 05:57] LABS: Hematocrit 33.9 % (37.0-47.0); Hemoglobin 11.1 g/dl (12.0-16.0); Mean Corpuscular HGB Conc 32.7 g/dl (31.0-35.0); Mean Corpuscular Hemoglobin 26.4 pg (27.0-33.0); Mean Corpuscular Volume 80.7 fL (80.0-98.0); Mean Platelet Volume 11.2 fL (9.4-12.3); Platelet Count 341 X10*3/uL (160-400); White Blood Count 8.8 X10*3/uL (4.8-10.8)
[2023-11-11 06:11] LABS: Anion Gap 16 (12-20); Blood Urea Nitrogen 3 mg/dL (9-16); Calcium 9.4 mg/dL (8.4-10.2); Carbon Dioxide 21 mmol/L (22-29); Chloride 105 mmol/L (96-108); Estimated Glomerular Filt Rate > 60; Glucose Random 85 mg/dL (60-115); Potassium 3.3 mmol/L (3.3-5.1); Sodium 139 mmol/L (135-145)
--- NOTE | 2023-11-11 07:00 | CA_ITS ---
Transthoracic Echocardiogram Patient (Last, First, Middle): Preeti Adame, Gender: Female Date of : 2000 Age: 23 Procedure Date: 11/11/2023 Procedure Type: Transthoracic Echocardi[place] [facility] [facility] [place]: 152. cm Weight: 64.41 kg BSA: 1.61 m2 Heart Rate: 109 bpm BP: 124 / 80 mmHg Immigration Paralegal: OCTAVIO Referring MD: Dinesh RAMAN Symptoms: Tachycardia, syncopal episode Study Quality: Technically Difficult w/Contrast ECG Rhythm: Tachycardia Conclusions: - Normal left ventricular cavity size. There is normal left ventricular wall thickness. The left ventricular systolic function is hyperdynamic. The visually estimated ejection fraction is >70%. There is no evidence of regional wall motion abnormalities. Diastolic function is normal for age. - Normal right ventricular cavity size and systolic function. Findings Procedure Information Contrast agent, definity, is being given per protocol without apparent complications. The study quality is limited by an uncooperative patient. Left Ventricle Normal left ventricular cavity size. There is normal left ventricular wall thickness. The left ventricular systolic function is hyperdynamic. The visually estimated ejection fraction is >70%. There is no evidence of regional wall motion abnormalities. Diastolic function is normal for age. Right Ventricle Normal right ventricular cavity size and systolic function. Atria The left atrium is normal in size. Aortic Valve Normal aortic valve structure and function. There is no aortic valve stenosis. There is no aortic valve regurgitation. Mitral Valve The mitral valve appears normal. There is no mitral valve regurgitation. There is no mitral valve stenosis. Pulmonic Valve Normal pulmonic valve structure and function. Tricuspid Valve Normal tricuspid valve structure. There is trace tricuspid valve regurgitation. Normal right atrial pressure. There is no evidence of pulmonary hypertension. Great Vessels All visible segments of the aorta are normal in size. The visualized portions of the pulmonary artery and branches are normal. Venous The inferior vena cava is normal in size and collapses greater than 50% with inspiration. Pericardium/Pleural There is no evidence of pericardial effusion. Measurements 2D Linear Measurements IVSd: 0.78 0.6-0.9/0.6-1.0 cm LVIDd: 3.76 3.9-5.3/4.2-5.9 cm LVIDd Index: 2.34 2.4-3.2/2.2-3.1 cm/m2 LVIDs: 1.90 2.0-3.6 cm LVPWd: 0.88 0.7-1.1 cm LA Diam: 2.40 2.7-3.8/3.0-4.0 cm LAIDs Index: 1.49 1.5-2.3 cm/m2 LV Mass: 110.49 67-162/88-224 g LV Mass Index: 68.63 43-95/49-115 g/m2 LVOT Diam: 1.90 3.0+(-)1.3 cm 2D Systolic Function EF 4C: 77.00 >55% EF 2C: 73.60 >55% EF BiP: 74.60 >55% Mitral Valve MV Pk E: 0.97 MV PK A: 0.91 MV Decel Time: 185.00 E/A: 1.10 E'Lateral: 16.00 E'Medial: 12.60 E/E' Med: 7.70 E/E' Lat: 6.10 PHT: 54.00 MVA PHT: 4.07 Decel [place]: 5.27 Aortic Valve AoV Pk Khang: 1.66 AoV Mn Khang: 1.26 AoV VTI: 0.27 AoV Pk Grad: 11.00 Aov Mn Grad: 7.00 JOHN Cont.VTI: 2.05 LVOT LVOT Pk Khang: 1.30 LVOT Mn Khang: 0.88 LVOT VTI: 0.19 LVOT Pk Grad: 7.00 LVOT Mn Grad: 4.00 LVOT Diam: 1.90 LVOT Area: 2.84 Diastolic Function MV Pk E: 0.97 MV Pk A: 0.91 E/A: 1.10 E'Medial: 12.60 E/E' Med: 7.70 E' Laterial: 16.00 E/E' Lat: 6.10 Right Ventricle TAPSE (mm): 18.30 TVS' Khang: 14.60 Tricuspid Valve TR Pk Khang: 1.59 TR Pk Grad: 10.00 RA Press: 3.00 RVSP: 13.00 Great Vessels Aorta Sinus of Valsalva: 3.10 2.0-3.5 cm Ao Asc: 2.70 2.1-3.4 cm Pulmonary Valve PV Pk Khang: 1.41 Peak PV Grad: 8.00 Updated in Other Vendor System with Status of Final Aníbal Montez MD electronically signed on 11/12/2023 12:31:58 PM with status of Final
[2023-11-11] MEDS: Lactated Ringers 1,000 ML 100 ML IVCONT ×2 (08:34→17:13)
--- NOTE | 2023-11-11 09:12 | P.DS_ITS ---
DS: Providers Provider Date of Service: 11/10/23 Date of admission: 11/10/23 20:40 Date of discharge: 11/10/23 Primary care physician: Unknown Physician Admitting clinician: Sondra Garrison Attending physician on discharge: Giovanni Saucedo DS: Diagnosis Discharge Diagnosis (1) Syncope: Status: Acute DS: Medications Discharge Medications Home Medications: Home Medications Medication Instructions Recorded Confirmed famotidine 20 mg tablet 20 mg PO BEDTIME 10/08/23 10/08/23 pantoprazole 20 mg tablet,delayed 20 mg PO DAILY 10/08/23 10/08/23 release Mental Status Exam Mental Status Exam Narrative: Patient discharged 2nd shift following syncopal episode Remains disorganized, disheveled, auditory hallucinations, paranoid delusions, no insight, significantly impaired judgment; impoverished speech; psychomotor retardation Data Data Completed and Pending Completed studies during hospitalization [Text1]: 11/10/23 11/11/23 22:30 05:26 WBC 8.8 RBC 4.20 Hgb 11.1 L Hct 33.9 L MCV 80.7 MCH 26.4 L MCHC 32.7 RDW 16.0 Plt Count 341 MPV 11.2 Absolute Nucleated RBC 0.000 Nucleated RBC % (auto) 0.0 Sodium 139 Potassium 3.3 Chloride 105 Carbon Dioxide 21 L Anion Gap 16 BUN 3 L Creatinine 0.53 Estim Creat Clear Calc TNP Estimated GFR > 60 Random Glucose 85 Calcium 9.4 Influenza Type A (PCR) NEGATIVE Influenza Type B (PCR) NEGATIVE RSV RNA Qual (PCR) NEGATIVE SARS-CoV-2 RNA (RT-PCR) NEGATIVE Imaging Diagnostic Imaging Impressions Chest X-Ray 11/10/23 21:20 IMPRESSION: No acute cardiopulmonary findings. DS: Summary Hospital Course Hospital Course: 22 yo female with history of depression and anxiety admitted to [facility] due to rapid decompensation in context of recent covid infection. She is internally preoccupied and disorganized as well as almost mute with very few verbal utterances- whispering and mumbling. Patient's mother, Latisha, says that prior to getting COVID September 28, patient was her regular self, without any history of psychotic or manic symptoms. Starting with COVID patient started to decompensate; about 5 days prior to the admission, patient was up all night, not sleeping at all, pacing the house and going into very is rooms in a disorganized manner; she was talking excessively and started complaining of auditory hallucinations (it was only once she got to the unit that she is expressed paranoid delusions). Mom says this is the 1st time patient has had any such manic episode. -it is possible that patient had some amount of COVID triggered encephalitis, maybe further complicated by UTI on admission. However, given mom's history of bipolar disorder combined with patient's current presentation (and absence of RDS, metabolic derangement, cardiac events-the lactic acid was elevated), it seems likely that this is a 1st manic break for patient. -at this time will treat for bipolar/psychosis Developmental Hx:-history of developmental delay; significant IEP throughout school history Family hx: Mother bipolar on [facility] and [facility] Hospital course: Patient presented with disorganized behavior, AH and paranoid delusions. On admission she was started on antipsychotic medication and quickly had some improvement, no longer placing herself on the floor, talking, eating and drinking and a little more organized. Doughnut Fryer discussed case with Neurologist Dr. Oconnor who met with patient and agreed that although patient had no prior history of manic/psychotic behavior and this onset coincided with donal COVID, there was at this point low concern for encephalopathy; her mother has bipolar disorder, patient has a history of psychiatric issues and presentation is in line with 1st break joana/psychosis. And although She soon plateaued teletypewriter installer considered that her initial improvement was due to medication response which per discussion with Dr. 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 -with the next few weeks patient remained plateaued, mostly disorganized, with paranoid delusions and auditory hallucinations. -as mentioned, on medication she got a little better but remained disorganized, with paranoid delusions and auditory hallucinations, despite trials of Risperdal, Zyprexa (was used as a p.r.n. but she took it frequently) and Haldol. She did try Abilify which may have been working, talking more freely, but then she refused to take any medication at all, saying it did not help; she stopped eating food thinking it was poisoned and paranoid delusions with AH remains significantly troublesome, patient thinking that she had raped in caused [place] attacks and wanting to turn herself into the police station. Patient became increasingly disorganized, talking less and less. -she seemed to have catatonic like features however Ativan trial did not a lleviate any symptoms and she refuses to continue with it -Given that patient is not getting better, remains floridly psychotic, disorganized, refusing medication...not eating any food due to persistent paranoid delusions and auditory hallucinations and wanting to discharge, again pursued neurologic workup to see if there is possibly a contributing neurological component. ECT is also an option as there is no absolute contraindication, thus far patient seems to be refractory to medication and she has some catatonic symptoms as well. -patient initially consented to MRI but was too afraid to get the wheelchair and this did not happen -patient wanted to go and 3 day notice was placed; remains completely disorganized, unable to care for herself, hardly eating, no insight, no attention to ADLs unless with significant staff help, refusing all treatment. Filed for involuntary commitment and substituted judgment as well On November 09, patient had syncopal episode and was admitted to medicine Time spent discussing smoking cessation with patient: 3 to 10 minutes Status at Discharge Functional status at discharge: independent ambulation Overall status at discharge: patient is not back to baseline Time Spent with Patient Time attestation: Total time managing care of this patient today ____ minutes. Time spent: Less than 30 minutes Discharge Plan Discharge Patient Disposition: er Acute Care Hospital Discharge Diagnosis: schizoaffective disorder (provisional); intellectual disability Referrals: Physician,Unknown J [Primary Care Provider] - 1 Week Discharge Medications: New docusate sodium 100 mg Capsule 100 mg PO DAILY PRN (Reason: Constipation) Qty: 0 0RF acetaminophen 325 mg Tablet 650 mg PO Q6H PRN (Reason: Pain, Mild (Pain Scale 1-3)) Qty: 0 0RF enoxaparin 40 mg/0.4 mL Syringe 40 mg subcut Q24H Qty: 0 0RF sodium chloride 0.9 % (flush) [BD PosiFlush Normal Saline 0.9] Syringe 3 ml IVFLUSH QSHIFT Qty: 0 0RF Continued pantoprazole 20 mg tablet,delayed release (DR/EC) 20 mg PO DAILY famotidine 20 mg tablet 20 mg PO BEDTIME Diet: per medicine Activity on Discharge: As tolerated Stand Alone Forms: Patient Portal Discharge page Care Plan Goals: Transfer to [facility] Concerns: Transfer to Medicine following syncopal event Plan of Treatment: Transferred to Medicine Assessment: Transferred to Medicine
--- NOTE | 2023-11-11 11:12 | MHC.CM.PN ---
Patient presents with s/s of confusion(No HCP); CM spoke with Mother/Dottie @ [phone] and addressed CHANDRA with her (original will be mailed to Dottie and a copy has been placed on the chart). Patient is from and returning to [facility] home is the tentative plan. CM has initiated and will follow for dc planning. Patient lives in a house with her Mother and her Grandfather and at baseline, she us functionally independent. PCP is Dr. Ruma Alvarado.
--- NOTE | 2023-11-11 12:57 | HO.PM.IMPN ---
Subjective Subjective Date of Service: 11/11/23 Interval History: Disorganized random thoughts. No thoughts of self-harm. No acute issues overnight Review of Systems Unable to obtain Physical Exam Vital Signs: Vital Signs: Last Vital Signs Temp 97.3 F 11/11/23 11:35 Pulse 141 H 11/11/23 11:35 Resp 20 11/11/23 11:35 BP 159/90 H 11/11/23 11:35 Pulse Ox 97 11/11/23 11:35 O2 Del Method Room Air 11/11/23 11:35 Const: Other: Awake alert no acute distress Resp: Other: Clear to auscultation bilaterally no rales rhonchi or wheezes Cardio: Other: No S4; positive S1-S2; no S3 murmurs rubs or gallops GI: Other: Soft nontender nondistended normoactive bowel sounds Extrem: Other: No edema bilaterally Objective Data Active Medications Acetaminophen (Acetaminophen 325 Mg Tablet) 650 mg PO Q6H PRN PRN Reason: Pain, Mild (Pain Scale 1-3) Benzonatate (Benzonatate 100 Mg Capsule) 100 mg PO TID PRN PRN Reason: Cough Docusate Sodium (Docusate Sodium 100 Mg Capsule) 100 mg PO DAILY PRN PRN Reason: Constipation Enoxaparin Sodium (Enoxaparin Sodium 40 Mg/0.4 Ml Syringe) 40 mg SUBCUT Q24H [facility] Last Admin: 11/10/23 22:04 Dose: 40 mg Documented By: SHAR Lactated Ringer's (Lr) 1,000 mls @ 100 mls/hr IVCONT .Q10H [facility] Last Admin: 11/11/23 08:34 Dose: 100 mls/hr Documented By: VINCENT Melatonin (Melatonin 3 Mg Tablet) 6 mg PO BEDTIME PRN PRN Reason: Insomnia Last Admin: 11/10/23 22:04 Dose: 6 mg Documented By: SHAR Sodium Chloride (0.9 % Sodium Chloride Flush 3 Ml Syringe) 3 ml IVFLUSH QSHIFT [facility] Last Admin: 11/11/23 08:32 Dose: Not Given Documented By: VINCENT Non-Admin Reason: IV Running Labs 11/11/23 05:26 11/11/23 05:26 Labs: Laboratory Results - last 24 hr 11/10/23 11/11/23 22:30 05:26 MCV 80.7 MCH 26.4 L MCHC 32.7 RDW 16.0 Plt Count 341 MPV 11.2 Absolute Nucleated RBC 0.000 Nucleated RBC % (auto) 0.0 Anion Gap 16 Estim Creat Clear Calc TNP Estimated GFR > 60 Random Glucose 85 Calcium 9.4 Influenza Type A (PCR) NEGATIVE Influenza Type B (PCR) NEGATIVE RSV RNA Qual (PCR) NEGATIVE SARS-CoV-2 RNA (RT-PCR) NEGATIVE Assessment and Plan (1) Syncope: Status: Acute (2) Psychosis: Status: Acute (3) Major depressive disorder, recurrent episode, severe, with psychosis: Status: Chronic Plan Pt is a 23-year-old female with a PMH significant for anxiety, depression, GERD,?chronic tachycardia, and likely cognitive delay who is transferred from M5 psych unit to the medical floor after syncopal episode while on the unit. 1.Syncopal episode -extensive workup in the past; likely vasovagal -echocardiogram -volume repletion with LR -monitor on telemetry 2. Mental status changes; question encephalopathic -LP with associated testing -check MRI 3.Leukocytosis -resolved -follow clinically 4.Mood disorder --stable; psych following Full Code Lovenox Requires ongoing hospitalization to complete workup as outlined by specialist including MRI and spinal tap Quality Stroke Does the patient have a stroke diagnosis?: No VTE Prior VTE?: No VTE Risk Level:: Medical - moderate - high VTE Device Contraindication: Treatment Not Indicated VTE Drug Contraindication: N/A - Med Ordered
--- NOTE | 2023-11-11 13:08 | MHC.CARE ---
Per Marta Carmona [id number], SW/ UR on M5, patient was on M5 before transfer to the medical floor, was d/c from the unit though her legal status is section 7, pending court. Per Marta Syed, the Sect 7 stands and the patient should return to the unit on the same legal standing.?
[2023-11-11] MEDS: LORazepam 2 MG/ML VIAL 1 MG IVPUSH ×2 (18:12→20:18)
[2023-11-11] MEDS: Haloperidol Lactate 5 MG/ML VIAL 1 MG IM (18:35)
[2023-11-11 19:38] LABS: Appearance Urine Clear; Color Urine Yellow; Glucose Urine UA Negative (Negative); Leukocyte Esterase Urine Negative (Negative); Nitrite Urine Negative (Negative); PH 7.5 (5.0-9.0); Urine Blood Negative (Negative); Urine Ketones 80 mg/dL (Negative); Urine Protein Negative (Neg-Trace)
[2023-11-11] MEDS: Enoxaparin Sodium 40 MG/0.4 ML SYRINGE SUBCUT (20:18)
[2023-11-12] MEDS: Lactated Ringers 1,000 ML 100 ML IVCONT ×3 (03:24→22:26)
[2023-11-12 04:00] VITALS: BP 141/85; PULSE 119; RESP 16; TEMP 36.6; O2SAT 98
[2023-11-12 05:57] LABS: MANUAL DIFF FLAG NO
[2023-11-12 06:04] LABS: Basophils Percent Auto 0.5 % (0-2); Eosinophils Absolute Auto 0.2 X10*3/uL (0.0-0.4); Eosinophils Percent Auto 2.5 % (0-4); Hematocrit 34.4 % (37.0-47.0); Hemoglobin 11.2 g/dl (12.0-16.0); Imm Gran Abs Auto 0.02 X10*3/uL (0.00-0.03); Imm Gran Pct Auto 0.3 % (0.0-0.4); Lymphocytes Absolute Auto 1.5 X10*3/uL (1.2-4.9); Lymphocytes Percent Auto 20.7 % (20-40); Mean Corpuscular HGB Conc 32.6 g/dl (31.0-35.0); Mean Corpuscular Hemoglobin 26.9 pg (27.0-33.0); Mean Corpuscular Volume 82.5 fL (80.0-98.0); Mean Platelet Volume 10.8 fL (9.4-12.3); Monocytes Absolute Auto 0.7 X10*3/uL (0.1-1.2); Monocytes Percent Auto 9.2 % (2-11); Neutrophils Absolute Auto 4.9 x10*3/uL (2.0-8.3); Neutrophils Percent Auto 66.8 % (45-73); Platelet Count 338 X10*3/uL (160-400); Red Blood Count 4.17 X10*6/uL (4.20-5.50); Red Cell Distribution Width 15.9 % (11.0-16.0); White Blood Count 7.3 X10*3/uL (4.8-10.8)
[2023-11-12 06:43] LABS: Alanine Aminotransferase 47 U/L (0-31); Albumin Level 3.4 g/dL (3.5-5.0); Alkaline Phosphatase 68 U/L (39-117); Anion Gap 16 (12-20); Aspartate Amino Transferase 41 U/L (5-31); Bilirubin Total 0.7 mg/dL (0.0-1.0); Blood Urea Nitrogen < 3 mg/dL (9-16); Calcium 8.7 mg/dL (8.4-10.2); Carbon Dioxide 23 mmol/L (22-29); Chloride 104 mmol/L (96-108); Estimated Glomerular Filt Rate > 60; Glucose Fasting 72 mg/dL (60-99); Potassium 3.2 mmol/L (3.3-5.1); Sodium 140 mmol/L (135-145)
[2023-11-12 07:47] VITALS: BP 139/77; PULSE 109; TEMP 36.9; O2SAT 100
[2023-11-12 11:30] VITALS: BP 138/86; PULSE 107; RESP 16; TEMP 36.4; O2SAT 99
[2023-11-12] MEDS: LORazepam 2 MG/ML VIAL IVPUSH (12:00)
[2023-11-12 14:00] VITALS: BP 140/80; PULSE 105; RESP 20; TEMP 36.2; O2SAT 97
--- NOTE | 2023-11-12 15:06 | P.CNPS_ITS ---
History of Present Illness Date of Service: 11/12/23 Chief Complaint: Syncopal Episode Reason for Consult: floridly disorganized Requesting physician: Hipolito Reynolds Discussed with referring provider: Yes Sources of Information: patient interviewed, chart reviewed and crisis/core team assessment reviewed HPI Narrative: Pt is a 23 yo female with history of depression and anxiety admitted to due to rapid decompensation with psychotic and manic symptoms following recent covid infection. On admission pt floridly psychotic, disorganized, internally preoccupied, almost mute with very few verbal utterances- whispering and mumbling. Pt treated on M5 but antipsychotic meds did not resolve issue and there was some concern for possible encephalopthy, given onset coinciding w/ Covid infection; neuro following who recommended LP and MRI to which patient agreed but then became too anxious, disorganized to comply. Pt was not eating due to delusions, was tachycardic and though chronic condition, had syncopal event and so transferred to medical floor. Chip Bin Operator met with patient who is floridly disorganized, delusional and delirious. Mom who is next of kin, at bedside and agrees to LP. Discussed case with dr. Méndez and Dr. Allison who agree with plan, including LP given presentation, concern for neurological component to symptoms and mothers consent. Past Psychiatric History: [place] [facility] [place] for reported overdose of 3 tablets of benadryl 25mg; inpatient at [facility] 2018. [facility]. Ongoing outpatient at [facility] Medical Evaluation Reviewed: Yes Personal & Social History: Recent history: Patient's mother, Latisha, says that prior to getting COVID September 28, patient was her regular self, without any history of psychotic or manic symptoms. Starting with COVID patient started to decompensate; about 5 days prior to the admission, patient was up all night, not sleeping at all, pacing the house and going into very is rooms in a disorganized manner; she was talking excessively and started complaining of auditory hallucinations (it was only once she got to the unit that she is expressed paranoid delusions). Mom says this is the 1st time patient has had any such manic episode. -it is possible that patient had some amount of COVID triggered encephalitis, maybe further complicated by UTI on admission. However, given mom's history of bipolar disorder combined with patient's current presentation (and absence of RDS, metabolic derangement, cardiac events-the lactic acid was elevated), it seems likely that this is a 1st manic break for patient. -at this time will treat for bipolar/psychosis Developmental Hx:-history of developmental delay; significant IEP throughout school history Family hx: Mother bipolar on Depakote and Abilify [facility] Medical History Bipolar disorder in remission Supraventricular tachycardia Schizoaffective disorder Intellectual disability Contraception management Vitamin D deficiency Vitamin B12 deficiency Uses control Hx of ovarian cyst Epigastric abdominal pain Orthostatic hypotension Supraventricular tachycardia by ECG Left ovarian cyst Migraine Surgical History H/O removal of cyst Family History: lives with mother and grandfather Social History: has BF per mother but he dosed not live locally Trauma History: pt unable to answer today Diagnostics Vital Signs (24Hr): Vital Signs - 24 hr 11/11/23 15:52 11/11/23 18:58 11/11/23 23:51 Temperature 98.5 F 97.3 F 97.9 F Pulse Rate 110 H 122 H 112 H Respiratory Rate 20 18 20 Blood Pressure 137/87 137/82 121/82 Pulse Oximetry 99 99 98 Oxygen Delivery Method Room Air Room Air Room Air 11/12/23 04:00 11/12/23 07:47 11/12/23 11:30 Temperature 97.8 F 98.5 F 97.6 F Pulse Rate 119 H 109 H 107 H Respiratory Rate 16 16 Blood Pressure 141/85 H 139/77 138/86 Pulse Oximetry 98 100 99 Oxygen Delivery Method Room Air Room Air Room Air Labs 11/13/23 06:27 11/13/23 Unknown Labs: Laboratory Results - last 48 hr 11/10/23 11/11/23 11/11/23 22:30 05:26 19:20 WBC 8.8 RBC 4.20 Hgb 11.1 L Hct 33.9 L MCV 80.7 MCH 26.4 L MCHC 32.7 RDW 16.0 Plt Count 341 MPV 11.2 Immature Gran % (Auto) Neut % (Auto) Lymph % (Auto) [place] % (Auto) Eos % (Auto) Baso % (Auto) Lymph # (Auto) [place] # (Auto) Eos # (Auto) Baso # (Auto) Abs Immat Gran (auto) Absolute Neuts (auto) Absolute Nucleated RBC 0.000 Nucleated RBC % (auto) 0.0 Sodium 139 Potassium 3.3 Chloride 105 Carbon Dioxide 21 L Anion Gap 16 BUN 3 L Creatinine 0.53 Estim Creat Clear Calc TNP Estimated GFR > 60 Random Glucose 85 Fasting Glucose Calcium 9.4 Total Bilirubin AST ALT Alkaline Phosphatase Total Protein Albumin Urine Color Yellow Urine Appearance Clear Urine pH 7.5 Ur Specific [place] 1.010 Urine Protein Negative Urine Glucose (UA) Negative Urine Ketones 80 Urine Blood Negative Urine Nitrite Negative Ur Leukocyte Esterase Negative Influenza Type A (PCR) NEGATIVE Influenza Type B (PCR) NEGATIVE RSV RNA Qual (PCR) NEGATIVE SARS-CoV-2 RNA (RT-PCR) NEGATIVE 11/12/23 05:45 WBC 7.3 RBC 4.17 L Hgb 11.2 L Hct 34.4 L MCV 82.5 MCH 26.9 L MCHC 32.6 RDW 15.9 Plt Count 338 MPV 10.8 Immature Gran % (Auto) 0.3 Neut % (Auto) 66.8 Lymph % (Auto) 20.7 [place] % (Auto) 9.2 Eos % (Auto) 2.5 Baso % (Auto) 0.5 Lymph # (Auto) 1.5 [place] # (Auto) 0.7 Eos # (Auto) 0.2 Baso # (Auto) 0.0 Abs Immat Gran (auto) 0.02 Absolute Neuts (auto) 4.9 Absolute Nucleated RBC 0.000 Nucleated RBC % (auto) 0.0 Sodium 140 Potassium 3.2 L Chloride 104 Carbon Dioxide 23 Anion Gap 16 BUN < 3 L Creatinine 0.51 Estim Creat Clear Calc TNP Estimated GFR > 60 Random Glucose Fasting Glucose 72 Calcium 8.7 D Total Bilirubin 0.7 AST 41 H ALT 47 H Alkaline Phosphatase 68 Total Protein 6.0 L Albumin 3.4 L Urine Color Urine Appearance Urine pH Ur Specific [place] Urine Protein Urine Glucose (UA) Urine Ketones Urine Blood Urine Nitrite Ur Leukocyte Esterase Influenza Type A (PCR) Influenza Type B (PCR) RSV RNA Qual (PCR) SARS-CoV-2 RNA (RT-PCR) Imaging Radiology Impressions: ITS Impressions Chest X-Ray 11/10/23 21:20 IMPRESSION: No acute cardiopulmonary findings. Mental Status Exam Mental Status Exam Narrative: Pt is alert and oriented; behavior is disorganized; patient is not in distress; dressed in hospital attire desheveled; mood is described as anxious and affect blunted; eye contact limited; psychomotor retardation present; Speech disorganized, impoverished; slow, soft; Thought process often distracted but can also at times can be goal oriented; Thought content is on delusional, paranoid fears; denies any SI/HI. AH remains; Patients insight and judgment impaired. Medications Medications Current Medications Acetaminophen (Acetaminophen 325 Mg Tablet) 650 mg PO Q6H PRN PRN Reason: Pain, Mild (Pain Scale 1-3) Benzonatate (Benzonatate 100 Mg Capsule) 100 mg PO TID PRN PRN Reason: Cough Docusate Sodium (Docusate Sodium 100 Mg Capsule) 100 mg PO DAILY PRN PRN Reason: Constipation Enoxaparin Sodium (Enoxaparin Sodium 40 Mg/0.4 Ml Syringe) 40 mg SUBCUT Q24H [facility] Last Admin: 11/11/23 20:18 Dose: 40 mg Lactated Ringer's (Lr) 1,000 mls @ 100 mls/hr IVCONT .Q10H [facility] Last Admin: 11/12/23 12:04 Dose: 100 mls/hr Melatonin (Melatonin 3 Mg Tablet) 6 mg PO BEDTIME PRN PRN Reason: Insomnia Last Admin: 11/10/23 22:04 Dose: 6 mg Sodium Chloride (0.9 % Sodium Chloride Flush 3 Ml Syringe) 3 ml IVFLUSH QSHIFT [facility] Last Admin: 11/12/23 07:33 Dose: Not Given Allergies Allergies Allergy/AdvReac Type Severity Reaction Status Date / Time metoprolol AdvReac Diarrhea Verified 10/07/23 23:43 Assessment & Plan Assessment & Plan (1) Catatonia: Status: Acute Code(s): F06.1 - Catatonic disorder due to known physiological condition (2) Schizoaffective disorder: Status: Acute Code(s): F25.9 - Schizoaffective disorder, unspecified (3) Supraventricular tachycardia: Status: Acute Code(s): I47.10 - Supraventricular tachycardia, unspecified Plan Patient remains floridly psychotic, catatonic features; on hospital service for tachycardia, syncope. Mother present. Patient agrees to LP to rule out organic cause of illness Total time managing care of this patient today ____ minutes. Patient educated on: diagnosis, medication risk/benefits and medical condition Informed Consent: understands, does not understand and further education needed
[2023-11-12] MEDS: 0.9 % Sodium Chloride Flush 3 ML SYRINGE IVFLUSH (16:10)
[2023-11-12] MEDS: OLANZapine 10 MG VIAL 5 MG IM (16:10)
--- NOTE | 2023-11-12 16:59 | P.PNIM_ITS ---
Subjective Subjective Date of Service: 11/12/23 Interval History: Attempted MRI/LP however patient uncooperative despite medications. Review of Systems Unable to obtain Physical Exam 2 Vital Signs: Vital Signs: Last Vital Signs Temp 97.2 F 11/12/23 14:00 Pulse 105 H 11/12/23 14:00 Resp 20 11/12/23 14:00 BP 140/80 H 11/12/23 14:00 Pulse Ox 97 11/12/23 14:00 O2 Del Method Room Air 11/12/23 14:00 Const: Other: Awake alert no acute distress Resp: Other: Clear to auscultation bilaterally no rales rhonchi or wheezes Cardio: Other: No S4; positive S1-S2; no S3 murmurs rubs or gallops GI: Other: Soft nontender nondistended normoactive bowel sounds Extrem: Other: No edema bilaterally Objective Data Active Medications Acetaminophen (Acetaminophen 325 Mg Tablet) 650 mg PO Q6H PRN PRN Reason: Pain, Mild (Pain Scale 1-3) Benzonatate (Benzonatate 100 Mg Capsule) 100 mg PO TID PRN PRN Reason: Cough Docusate Sodium (Docusate Sodium 100 Mg Capsule) 100 mg PO DAILY PRN PRN Reason: Constipation Enoxaparin Sodium (Enoxaparin Sodium 40 Mg/0.4 Ml Syringe) 40 mg SUBCUT Q24H [facility] Last Admin: 11/11/23 20:18 Dose: 40 mg Documented By: SHAR Lactated Ringer's (Lr) 1,000 mls @ 100 mls/hr IVCONT .Q10H [facility] Last Admin: 11/12/23 12:04 Dose: 100 mls/hr Documented By: VINCENT Melatonin (Melatonin 3 Mg Tablet) 6 mg PO BEDTIME PRN PRN Reason: Insomnia Last Admin: 11/10/23 22:04 Dose: 6 mg Documented By: SHAR Sodium Chloride (0.9 % Sodium Chloride Flush 3 Ml Syringe) 3 ml IVFLUSH QSHIFT [facility] Last Admin: 11/12/23 16:10 Dose: 3 ml Documented By: VINCENT Labs 11/12/23 05:45 11/12/23 05:45 Labs: Laboratory Results - last 24 hr 11/11/23 11/12/23 19:20 05:45 MCV 82.5 MCH 26.9 L MCHC 32.6 RDW 15.9 Plt Count 338 MPV 10.8 Immature Gran % (Auto) 0.3 Neut % (Auto) 66.8 Lymph % (Auto) 20.7 [place] % (Auto) 9.2 Eos % (Auto) 2.5 Baso % (Auto) 0.5 Lymph # (Auto) 1.5 [place] # (Auto) 0.7 Eos # (Auto) 0.2 Baso # (Auto) 0.0 Abs Immat Gran (auto) 0.02 Absolute Neuts (auto) 4.9 Absolute Nucleated RBC 0.000 Nucleated RBC % (auto) 0.0 Anion Gap 16 Estim Creat Clear Calc TNP Estimated GFR > 60 Fasting Glucose 72 Calcium 8.7 D Total Bilirubin 0.7 AST 41 H ALT 47 H Alkaline Phosphatase 68 Total Protein 6.0 L Albumin 3.4 L Urine Color Yellow Urine Appearance Clear Urine pH 7.5 Ur Specific [place] 1.010 Urine Protein Negative Urine Glucose (UA) Negative Urine Ketones 80 Urine Blood Negative Urine Nitrite Negative Ur Leukocyte Esterase Negative Assessment and Plan (1) Major depressive disorder, recurrent episode, severe, with psychosis: Status: Chronic Plan Pt is a 23-year-old female with a PMH significant for anxiety, depression, GERD,?chronic tachycardia, and likely cognitive delay who is transferred from M5 psych unit to the medical floor after syncopal episode while on the unit. Unable to complete workup secondary to resistance to care. Believe patient does not have capacity to make decisions concerning her health and well-being however has not designated a proxy. Discussed at length with Dr. Smith 1.Syncopal episode -extensive workup in the past; likely vasovagal -echocardiogram reviewed -volume repletion with LR -monitor on telemetry 2. Mental status changes; question encephalopathic in back drop of known major depressive disorder with psychosis Neuro recommended LP/MRI to rule out metabolic causes however unable to obtain despite excessive sedation. Discussed with anesthesia; willing to assist however need to get the appropriate consent -court date pending for psych -given patient is a risk to herself and to staff will start Zyprexa IM. Zyprexa 5 mg today. . . 10 mg IM daily starting tomorrow -offer oral when appropriate 3.Leukocytosis -resolved -follow clinically 4. Major depressive disorder -as per 2. Full Code Lovenox Requires ongoing hospitalization to complete workup as outlined by specialist including MRI and spinal tap; would invoke healthcare proxy at this time as patient unable to make decisions concerning her health and well-being however has not designated a proxy. Appropriate channels pursued. Quality Stroke Does the patient have a stroke diagnosis?: No VTE Prior VTE?: No VTE Risk Level:: Medical - moderate - high VTE Device Contraindication: Treatment Not Indicated VTE Drug Contraindication: N/A - Med Ordered
[2023-11-12 19:00] VITALS: BP 122/87; PULSE 103; RESP 21; TEMP 36.3; O2SAT 98
[2023-11-12] MEDS: Enoxaparin Sodium 40 MG/0.4 ML SYRINGE SUBCUT (21:01)
[2023-11-12 23:31] VITALS: BP 131/85; PULSE 104; RESP 19; TEMP 36.7
[2023-11-13 03:35] VITALS: BP 137/80; PULSE 102; RESP 19; TEMP 36.7
[2023-11-13 06:29] LABS: MANUAL DIFF FLAG NO
[2023-11-13 07:02] LABS: Basophils Percent Auto 0.6 % (0-2); Eosinophils Absolute Auto 0.2 X10*3/uL (0.0-0.4); Eosinophils Percent Auto 2.4 % (0-4); Hematocrit 34.7 % (37.0-47.0); Hemoglobin 11.1 g/dl (12.0-16.0); Imm Gran Abs Auto 0.02 X10*3/uL (0.00-0.03); Imm Gran Pct Auto 0.3 % (0.0-0.4); Lymphocytes Absolute Auto 1.4 X10*3/uL (1.2-4.9); Lymphocytes Percent Auto 20.6 % (20-40); Mean Corpuscular Hemoglobin 26.4 pg (27.0-33.0); Mean Corpuscular Volume 82.6 fL (80.0-98.0); Mean Platelet Volume 12.3 fL (9.4-12.3); Monocytes Absolute Auto 0.6 X10*3/uL (0.1-1.2); Monocytes Percent Auto 8.6 % (2-11); Neutrophils Absolute Auto 4.6 x10*3/uL (2.0-8.3); Neutrophils Percent Auto 67.5 % (45-73); Platelet Count 316 X10*3/uL (160-400); Red Cell Distribution Width 15.8 % (11.0-16.0); White Blood Count 6.8 X10*3/uL (4.8-10.8)
[2023-11-13 07:05] VITALS: BP 134/87; PULSE 108; RESP 17; TEMP 36.3; O2SAT 98
[2023-11-13 08:52] LABS: Anion Gap 16 (12-20); Blood Urea Nitrogen < 3 mg/dL (9-16); Calcium 8.4 mg/dL (8.4-10.2); Carbon Dioxide 24 mmol/L (22-29); Chloride 104 mmol/L (96-108); Estimated Glomerular Filt Rate > 60; Glucose Random 67 mg/dL (60-115); Magnesium 1.9 mg/dL (1.6-2.6); Potassium 3.3 mmol/L (3.3-5.1); Sodium 141 mmol/L (135-145)
[2023-11-13] MEDS: 0.9 % Sodium Chloride Flush 3 ML SYRINGE IVFLUSH ×2 (09:30→16:37)
[2023-11-13] MEDS: OLANZapine 10 MG VIAL IM (09:32)
--- NOTE | 2023-11-13 10:21 | MHC.CM.PN ---
Per ROUNDS discussion, Patient is not yet medically cleared for dc(needs MRI LP); returning to [address] VS home is the tentative plan and CM will continue to follow.
[2023-11-13 11:02] VITALS: BP 136/78; PULSE 113; RESP 18; TEMP 36; O2SAT 94
--- NOTE | 2023-11-13 11:52 | HO.PM.IMPN ---
Subjective Subjective Date of Service: 11/13/23 Interval History: appears confused, unable to obtain ROS Review of Systems Review of Systems: Yes Unobtainable due to mental status Physical Exam Vital Signs: Vital Signs: Last Vital Signs Temp 96.8 F 11/13/23 11:02 Pulse 113 H 11/13/23 11:02 Resp 18 11/13/23 11:02 BP 136/78 11/13/23 11:02 Pulse Ox 94 11/13/23 11:02 O2 Del Method Room Air 11/13/23 11:02 FiO2 99 11/13/23 03:35 Gen: in no acute distress HEENT: sclera anicteric, moist mucus membranes Neck: supple Lungs: clear to auscultation bilaterally Heart: tachycardic, no murmurs Abd: soft, non-tender, non-distended Ext: no edema Skin: warm/well-perfused Neuro: alert, disorganized thoughts Psych: impaired insight Objective Data Active Medications Acetaminophen (Acetaminophen 325 Mg Tablet) 650 mg PO Q6H PRN PRN Reason: Pain, Mild (Pain Scale 1-3) Benzonatate (Benzonatate 100 Mg Capsule) 100 mg PO TID PRN PRN Reason: Cough Docusate Sodium (Docusate Sodium 100 Mg Capsule) 100 mg PO DAILY PRN PRN Reason: Constipation Enoxaparin Sodium (Enoxaparin Sodium 40 Mg/0.4 Ml Syringe) 40 mg SUBCUT Q24H [facility] Last Admin: 11/12/23 21:01 Dose: 40 mg Documented By: OUSMANE Melatonin (Melatonin 3 Mg Tablet) 6 mg PO BEDTIME PRN PRN Reason: Insomnia Last Admin: 11/10/23 22:04 Dose: 6 mg Documented By: SHAR Olanzapine (Olanzapine 10 Mg Vial) 10 mg IM DAILY [facility] Last Admin: 11/13/23 09:32 Dose: 10 mg Documented By: KENDELL Sodium Chloride (0.9 % Sodium Chloride Flush 3 Ml Syringe) 3 ml IVFLUSH QSHIFT [facility] Last Admin: 11/13/23 09:30 Dose: 3 ml Documented By: KENDELL Labs 11/13/23 06:27 11/13/23 Unknown Labs: Laboratory Results - last 24 hr 11/13/23 11/13/23 06:27 Unknown MCV 82.6 MCH 26.4 L MCHC 32.0 RDW 15.8 Plt Count 316 MPV 12.3 Immature Gran % (Auto) 0.3 Neut % (Auto) 67.5 Lymph % (Auto) 20.6 [place] % (Auto) 8.6 Eos % (Auto) 2.4 Baso % (Auto) 0.6 Lymph # (Auto) 1.4 [place] # (Auto) 0.6 Eos # (Auto) 0.2 Baso # (Auto) 0.0 Abs Immat Gran (auto) 0.02 Absolute Neuts (auto) 4.6 Absolute Nucleated RBC 0.000 Nucleated RBC % (auto) 0.0 Anion Gap 16 Estim Creat Clear Calc TNP Estimated GFR > 60 Random Glucose 67 Calcium 8.4 Magnesium 1.9 Hold Green Top See Note Assessment and Plan (1) Major depressive disorder, recurrent episode, severe, with psychosis: Status: Chronic Plan d4 23yo F with anxiety, depression, GERD, chronic tachycardia, ?cognitive delay initially admitted to with disorientation, auditory hallucinations, and paranoid and delusional behavior with vague SI transferred to hospitalist service after syncopal episode syncopal episode - extensively worked up in past by Cardiology: Echo with LVEF of 55-60% without valvular issues; Holter with underlying sinus rhythm with rate of 103/min with frequent sinus tachycardia; tilt-table test with orthostatic BP and HR changes suggestive of vasovagal syncope; recommendation at that time was for increasing fluid intake and liberalizing salt intake. - TTE 11/11/23: - Normal left ventricular cavity size. There is normal left ventricular wall thickness. The left ventricular systolic function is hyperdynamic. The visually estimated ejection fraction is >70%. There is no evidence of regional wall motion abnormalities. Diastolic function is normal for age. - Normal right ventricular cavity size and systolic function. a possible encephalopathy though more likely major depression with psychosis - Per Neuro initial recommendation for LP + MRI though they very much doubt this is non-psychiatric in nature - per Psychiatry started IM Zyprexa 10 mg daily - unable to consent for LP and has not named HCP; will discuss with CM leukocytosis - resolved VTE ppx - LMWH dispo - eventual return to , awaiting LP + MRI Total time managing care of this patient today: 40 minutes. Quality Stroke Does the patient have a stroke diagnosis?: No VTE Prior VTE?: No VTE Risk Level:: Medical - moderate - high VTE Device Contraindication: Treatment Not Indicated VTE Drug Contraindication: N/A - Med Ordered
[2023-11-13] MEDS: LORazepam 2 MG/ML VIAL IVPUSH (14:42)
[2023-11-13 16:00] VITALS: BP 132/82; PULSE 106; RESP 18; TEMP 36.2; O2SAT 96
[2023-11-13] MEDS: LORazepam 2 MG/ML VIAL 1 MG IVPUSH (17:13)
[2023-11-13 18:36] VITALS: BP 140/74; PULSE 110; RESP 18; TEMP 36.6; O2SAT 98
[2023-11-14] VITALS (13 sets, daily range): BP systolic 107–136; BP diastolic 69–99; PULSE 91–120; RESP 12–18; TEMP 35.9–37.1; O2SAT 97–100; BMI 27.8
[2023-11-14] MEDS: 0.9 % Sodium Chloride Flush 3 ML SYRINGE IVFLUSH ×3 (07:48→20:28)
[2023-11-14] MEDS: LORazepam 2 MG/ML VIAL 1 MG IVPUSH ×3 (07:49→20:28)
[2023-11-14] MEDS: OLANZapine 10 MG VIAL IM (07:49)
--- NOTE | 2023-11-14 10:39 | HO.PM.IMPN ---
Subjective Subjective Date of Service: 11/14/23 Interval History: did not stay still for MRI unable to obtain ROS Review of Systems Review of Systems: Yes Unobtainable due to mental status Physical Exam Vital Signs: Vital Signs: Last Vital Signs Temp 97.5 F 11/14/23 07:00 Pulse 102 H 11/14/23 07:00 Resp 18 11/14/23 07:00 BP 107/69 11/14/23 07:00 Pulse Ox 97 11/14/23 07:00 O2 Del Method Room Air 11/14/23 07:00 FiO2 99 11/13/23 03:35 Gen: in no acute distress HEENT: sclera anicteric, moist mucus membranes Neck: supple Lungs: clear to auscultation bilaterally Heart: tachycardic, no murmurs Abd: soft, non-tender, non-distended Ext: no edema Skin: warm/well-perfused Neuro: alert, disorganized thoughts Psych: impaired insight Objective Data Active Medications Acetaminophen (Acetaminophen 325 Mg Tablet) 650 mg PO Q6H PRN PRN Reason: Pain, Mild (Pain Scale 1-3) Benzonatate (Benzonatate 100 Mg Capsule) 100 mg PO TID PRN PRN Reason: Cough Docusate Sodium (Docusate Sodium 100 Mg Capsule) 100 mg PO DAILY PRN PRN Reason: Constipation Enoxaparin Sodium (Enoxaparin Sodium 40 Mg/0.4 Ml Syringe) 40 mg SUBCUT Q24H [facility] Last Admin: 11/12/23 21:01 Dose: 40 mg Documented By: OUSMANE Lorazepam (Lorazepam 2 Mg/Ml Vial) 1 mg IVPUSH TID [facility] Last Admin: 11/14/23 07:49 Dose: 1 mg Documented By: KENDELL Melatonin (Melatonin 3 Mg Tablet) 6 mg PO BEDTIME PRN PRN Reason: Insomnia Last Admin: 11/10/23 22:04 Dose: 6 mg Documented By: SHAR Olanzapine (Olanzapine 10 Mg Vial) 10 mg IM DAILY [facility] Last Admin: 11/14/23 07:49 Dose: 10 mg Documented By: KENDELL Sodium Chloride (0.9 % Sodium Chloride Flush 3 Ml Syringe) 3 ml IVFLUSH QSHIFT [facility] Last Admin: 11/14/23 07:48 Dose: 3 ml Documented By: KENDELL Labs 11/13/23 06:27 11/13/23 Unknown Assessment and Plan (1) Major depressive disorder, recurrent episode, severe, with psychosis: Status: Chronic Plan d5 23yo F with anxiety, depression, GERD, chronic tachycardia, ?cognitive delay initially admitted to with disorientation, auditory hallucinations, and paranoid and delusional behavior with vague SI transferred to hospitalist service after syncopal episode syncopal episode - extensively worked up in past by Cardiology: Echo with LVEF of 55-60% without valvular issues; Holter with underlying sinus rhythm with rate of 103/min with frequent sinus tachycardia; tilt-table test with orthostatic BP and HR changes suggestive of vasovagal syncope; recommendation at that time was for increasing fluid intake and liberalizing salt intake. - TTE 11/11/23: - Normal left ventricular cavity size. There is normal left ventricular wall thickness. The left ventricular systolic function is hyperdynamic. The visually estimated ejection fraction is >70%. There is no evidence of regional wall motion abnormalities. Diastolic function is normal for age. - Normal right ventricular cavity size and systolic function. possible encephalopathy though more likely major depression with psychosis - Per Neuro initial recommendation for LP + MRI though they very much doubt this is non-psychiatric in nature. Unable to hold still for MRI, will try CT with contrast. - Per Psychiatry started IM Zyprexa 10 mg daily; pt's mother consented for pt to receive LP to r/o autoimmune encephalitis leukocytosis - resolved VTE ppx - LMWH dispo - eventual return to , awaiting LP Total time managing care of this patient today: 35 minutes. Quality Stroke Does the patient have a stroke diagnosis?: No VTE Prior VTE?: No VTE Risk Level:: Medical - moderate - high VTE Device Contraindication: Treatment Not Indicated VTE Drug Contraindication: N/A - Med Ordered
[2023-11-14 14:05] LABS: HCG Quantitative < 2 mIU/mL
--- NOTE | 2023-11-14 15:13 | P.CONAN_ITS ---
HPI - Anesthesia Eval Consult details Narrative: for lumbar puncture PMFSH Active Problems Active Problems: All Active Problems (Updated 11/10/23 @ 21:17 by LAMINE Dial) Syncope (Acute) Intellectual disability (Acute) Psychosis (Acute) Major depressive disorder, recurrent episode, severe, with psychosis (Chronic) Major depression (Acute) Auditory hallucinations (Acute) Suicidal ideation (Acute) COVID-19 (Acute) Contraception management (Acute) Vitamin D deficiency (Acute) Vitamin B12 deficiency (Acute) Uses control (Acute) Orthostatic hypotension (Acute) Supraventricular tachycardia by ECG (Acute) Major depression in partial remission (Acute) Left ovarian cyst (Acute) Migraine (Acute) Past Medical History Medical History Intellectual disability Contraception management Vitamin D deficiency Vitamin B12 deficiency Uses control Hx of ovarian cyst Epigastric abdominal pain Orthostatic hypotension Supraventricular tachycardia by ECG Major depression in partial remission Left ovarian cyst Migraine Patient : No Family History Family History Mother Bipolar disorder Mental health disorder Family history of problems with anesthesia: No Surgical History Surgical History H/O removal of cyst History of Problems with Anesthesia: No Social History Social History Household Members: Unknown / Unable to assess Household Members Other:: mother and MGF Housing: House Alcohol intake: never Patient Tobacco Use Status: Never used Tobacco Smoked in Last 30 Days: No e-Cigarette/Vaping Use: Never Used Patient Interested in Nicotine Replacement: No Patient Given Instructions on How to Stop Smoking: No Second Hand Smoke Exposure: No Use of substances other than those prescribed or required for medical reasons: No Currently Displaying Signs/Symptoms of Drug Intoxication Withdrawal: No Any prior treatment program specific to substance use: No Are you DNR?: No Advance Directives: No Advance Directives Information Provided: No Do you have thoughts of harming others: Vague Do you have a plan to hurt others: Vague Recently lost weight without trying: Unsure Nutrition Risks: Poor intake 0-25% >4 days Patient : No : No Poor oral hygiene: No service: No Current occupational status: unemployed Sexual orientation: Unable to collect Cognitive needs: No Hearing needs: No Vision needs: No Meds Allergies Allergy/AdvReac Type Severity Reaction Status Date / Time metoprolol AdvReac Diarrhea Verified 10/07/23 23:43 Active Medications: Current Medications Acetaminophen (Acetaminophen 325 Mg Tablet) 650 mg PO Q6H PRN PRN Reason: Pain, Mild (Pain Scale 1-3) Benzonatate (Benzonatate 100 Mg Capsule) 100 mg PO TID PRN PRN Reason: Cough Docusate Sodium (Docusate Sodium 100 Mg Capsule) 100 mg PO DAILY PRN PRN Reason: Constipation Enoxaparin Sodium (Enoxaparin Sodium 40 Mg/0.4 Ml Syringe) 40 mg SUBCUT Q24H [facility] Last Admin: 11/12/23 21:01 Dose: 40 mg Lorazepam (Lorazepam 2 Mg/Ml Vial) 1 mg IVPUSH TID [facility] Last Admin: 11/14/23 13:05 Dose: 1 mg Melatonin (Melatonin 3 Mg Tablet) 6 mg PO BEDTIME PRN PRN Reason: Insomnia Last Admin: 11/10/23 22:04 Dose: 6 mg Olanzapine (Olanzapine 10 Mg Vial) 10 mg IM DAILY [facility] Last Admin: 11/14/23 07:49 Dose: 10 mg Sodium Chloride (0.9 % Sodium Chloride Flush 3 Ml Syringe) 3 ml IVFLUSH QSHIFT [facility] Last Admin: 11/14/23 07:48 Dose: 3 ml Home Medications Medication Instructions Recorded Confirmed Last Taken Type famotidine 20 mg tablet 20 mg PO BEDTIME 10/08/23 10/08/23 Unknown History pantoprazole 20 mg tablet,delayed 20 mg PO DAILY 10/08/23 10/08/23 Unknown History release Exam Height,Weight and Vital Signs: Height 5 ft Weight 64.6 kg Last Vital Signs Temp 96.6 F L 11/14/23 13:40 Pulse 96 11/14/23 13:40 Resp 16 11/14/23 13:40 BP 117/82 11/14/23 13:40 Pulse Ox 99 11/14/23 13:40 O2 Del Method Room Air 11/14/23 13:40 FiO2 99 11/13/23 03:35 Pertinent Lab Results Pertinent Lab Results: Laboratory Tests 11/10/23 11/11/23 11/11/23 22:30 05:26 19:20 WBC 8.8 RBC 4.20 Hgb 11.1 L Hct 33.9 L MCV 80.7 MCH 26.4 L MCHC 32.7 RDW 16.0 Plt Count 341 MPV 11.2 Immature Gran % (Auto) Neut % (Auto) Lymph % (Auto) [place] % (Auto) Eos % (Auto) Baso % (Auto) Lymph # (Auto) [place] # (Auto) Eos # (Auto) Baso # (Auto) Abs Immat Gran (auto) Absolute Neuts (auto) Absolute Nucleated RBC 0.000 Nucleated RBC % (auto) 0.0 Sodium 139 Potassium 3.3 Chloride 105 Carbon Dioxide 21 L Anion Gap 16 BUN 3 L Creatinine 0.53 Estim Creat Clear Calc TNP Estimated GFR > 60 Random Glucose 85 Fasting Glucose Calcium 9.4 Magnesium Total Bilirubin AST ALT Alkaline Phosphatase Total Protein Albumin Beta HCG, Quant Hold Green Top Urine Color Yellow Urine Appearance Clear Urine pH 7.5 Ur Specific [place] 1.010 Urine Protein Negative Urine Glucose (UA) Negative Urine Ketones 80 Urine Blood Negative Urine Nitrite Negative Ur Leukocyte Esterase Negative Influenza Type A (PCR) NEGATIVE Influenza Type B (PCR) NEGATIVE RSV RNA Qual (PCR) NEGATIVE SARS-CoV-2 RNA (RT-PCR) NEGATIVE 11/12/23 11/13/23 11/13/23 05:45 06:27 Unknown WBC 7.3 6.8 RBC 4.17 L 4.20 Hgb 11.2 L 11.1 L Hct 34.4 L 34.7 L MCV 82.5 82.6 MCH 26.9 L 26.4 L MCHC 32.6 32.0 RDW 15.9 15.8 Plt Count 338 316 MPV 10.8 12.3 Immature Gran % (Auto) 0.3 0.3 Neut % (Auto) 66.8 67.5 Lymph % (Auto) 20.7 20.6 [place] % (Auto) 9.2 8.6 Eos % (Auto) 2.5 2.4 Baso % (Auto) 0.5 0.6 Lymph # (Auto) 1.5 1.4 [place] # (Auto) 0.7 0.6 Eos # (Auto) 0.2 0.2 Baso # (Auto) 0.0 0.0 Abs Immat Gran (auto) 0.02 0.02 Absolute Neuts (auto) 4.9 4.6 Absolute Nucleated RBC 0.000 0.000 Nucleated RBC % (auto) 0.0 0.0 Sodium 140 141 Potassium 3.2 L 3.3 Chloride 104 104 Carbon Dioxide 23 24 Anion Gap 16 16 BUN < 3 L < 3 L Creatinine 0.51 0.53 Estim Creat Clear Calc TNP TNP Estimated GFR > 60 > 60 Random Glucose 67 Fasting Glucose 72 Calcium 8.7 D 8.4 Magnesium 1.9 Total Bilirubin 0.7 AST 41 H ALT 47 H Alkaline Phosphatase 68 Total Protein 6.0 L Albumin 3.4 L Beta HCG, Quant < 2 Hold Green Top See Note Urine Color Urine Appearance Urine pH Ur Specific [place] Urine Protein Urine Glucose (UA) Urine Ketones Urine Blood Urine Nitrite Ur Leukocyte Esterase Influenza Type A (PCR) Influenza Type B (PCR) RSV RNA Qual (PCR) SARS-CoV-2 RNA (RT-PCR) Airway Mallampati Class: Patient Non-Cooperative TM Dist: <=3cm Neck ROM: Full Heart: ok Lungs: ok Assessment and Plan Assessment Anesthesia Assessment: Anesthesia Plan Discussed and Chart Reviewed Final Anesthetic Review Family History of Problems with Anesthesia: No History of Problems with Anesthesia: No NPO: Yes ASA Class: III Final Preanesthetic Review: No Changes in Pt Med Stat, Meds/Allgs Chart Reviewed, Consent Obtained/Reviewed and Anes Risks/Benef Reviewed Patient Risk: High Procedure Risk: Intermediate Anesthetic Plan Anesthetic Plan: Agree w/ Assess. and Plan and TIVA Disposition: Standard PACU
[2023-11-14] MEDS: iohexoL 350 MG/ML 100 ML INFUS..BTL 85 ML IV (16:50)
--- NOTE | 2023-11-14 16:55 | PC.NURSE ---
This rn recieved a phone call from Marta Carmona (behavioral health) and was informed that they filed for civil commitment while pt was down in [facility]. The civil commitment took place today @ 1400 and this rn was informed that pt is now section 8 and 8B.
[2023-11-14 16:57] LABS: CSF Appearance Bloody
[2023-11-14 16:58] LABS: CSF Tube # 3
[2023-11-14 17:09] LABS: Glucose CSF 56 mg/dL; Total Protein CSF 39.4 mg/dL (15-45)
[2023-11-14 18:26] LABS: Cryptococcus neoformans/gattii Not Detected (Not Detect.); Enterovirus Not Detected (Not Detect.); Escherichia coli K1 Not Detected (Not Detect.); Haemophilus influenzae Not Detected (Not Detect.); Herpes simplex virus 1 Not Detected (Not Detect.); Herpes simplex virus 2 Not Detected (Not Detect.); Human herpesvirus 6 Not Detected (Not Detect.); Human parechovirus Not Detected (Not Detect.); Listeria monocytogenes Not Detected (Not Detect.); Neisseria meningitidis Not Detected (Not Detect.); Streptococcus agalactiae Not Detected (Not Detect.); Streptococcus pneumoniae Not Detected (Not Detect.); Varicella zoster virus Not Detected (Not Detect.)
[2023-11-14 19:09] LABS: Appearance CSF HAZY; CSF Tube # 4; CSF Volume 1.5 ML; Color CSF PINK
[2023-11-14 19:10] LABS: Appearance CSF CLOUDY; CSF Tube # 1
[2023-11-14 19:11] LABS: Color CSF PINK
[2023-11-14 19:24] LABS: Red Blood Cell CSF 1032 MM*3; White Blood Cell CSF 1 MM*3
[2023-11-14 19:25] LABS: Red Blood Cell CSF 76 MM*3; White Blood Cell CSF 0 MM*3
[2023-11-14 21:36] LABS: CSF Monos 2 %; Lymphocytes CSF 14 %; Lymphocytes CSF 45 %; Neutrophils CSF 14 %; Neutrophils CSF 48 %
[2023-11-15] VITALS (9 sets, daily range): BP systolic 118–141; BP diastolic 72–85; PULSE 70–122; RESP 14–20; TEMP 35.9–37; O2SAT 96–98
--- NOTE | 2023-11-15 07:46 | HO.POSTANES ---
Post Anesthesia Evaluation Post Anesthesia Evaluation Date of Service: 11/15/23 Vital Signs: Vital Signs Temp Pulse Resp BP Pulse Ox O2 Del Method 11/15/23 07:07 97.6 F 107 H 20 141/85 H 97 Room Air 11/15/23 06:00 93 11/15/23 05:00 115 H 11/15/23 04:00 98.6 F 110 H 14 129/82 98 Room Air 11/15/23 02:00 83 11/15/23 01:00 86 11/14/23 23:29 98.2 F 102 H 12 136/69 97 Room Air Anesthesia: TIVA Mental Status: Awake Pain Control: Satisfactory (Unable to assess. Cognitive impairment) Nausea/Vomiting: None (None reported) Hydration: Adequate Anesthesia-Related Issues: No Anes. Related Issues
[2023-11-15] MEDS: 0.9 % Sodium Chloride Flush 3 ML SYRINGE IVFLUSH ×3 (10:14→20:22)
[2023-11-15] MEDS: OLANZapine 10 MG VIAL IM (10:14)
[2023-11-15] MEDS: LORazepam 2 MG/ML VIAL 1 MG IVPUSH ×3 (10:14→20:17)
--- NOTE | 2023-11-15 12:49 | P.PNIM_ITS ---
Subjective Subjective Date of Service: 11/15/23 Interval History: unable to obtain ROS due to altered mental status had CT and LP yesterday without incident Review of Systems Review of Systems: Yes Unobtainable due to mental status Physical Exam 2 Vital Signs: Vital Signs: Last Vital Signs Temp 97.8 F 11/15/23 11:52 Pulse 70 11/15/23 11:52 Resp 20 11/15/23 11:52 BP 134/76 11/15/23 11:52 Pulse Ox 98 11/15/23 11:52 O2 Del Method Room Air 11/15/23 11:52 FiO2 99 11/13/23 03:35 BMI result Body Mass Index 27.8 Gen: agitated HEENT: sclera anicteric, moist mucus membranes Neck: supple Lungs: clear to auscultation bilaterally Heart: tachycardic, no murmurs Abd: soft, non-tender, non-distended Ext: no edema Skin: warm/well-perfused Neuro: alert, disorganized thoughts Psych: impaired insight Objective Data Active Medications Acetaminophen (Acetaminophen 325 Mg Tablet) 650 mg PO Q6H PRN PRN Reason: Pain, Mild (Pain Scale 1-3) Benzonatate (Benzonatate 100 Mg Capsule) 100 mg PO TID PRN PRN Reason: Cough Docusate Sodium (Docusate Sodium 100 Mg Capsule) 100 mg PO DAILY PRN PRN Reason: Constipation Enoxaparin Sodium (Enoxaparin Sodium 40 Mg/0.4 Ml Syringe) 40 mg SUBCUT Q24H [facility] Last Admin: 11/12/23 21:01 Dose: 40 mg Documented By: OUSMANE Lorazepam (Lorazepam 2 Mg/Ml Vial) 1 mg IVPUSH TID [facility] Last Admin: 11/15/23 10:14 Dose: 1 mg Documented By: OSBALDO Melatonin (Melatonin 3 Mg Tablet) 6 mg PO BEDTIME PRN PRN Reason: Insomnia Last Admin: 11/10/23 22:04 Dose: 6 mg Documented By: SHAR Olanzapine (Olanzapine 10 Mg Vial) 10 mg IM DAILY [facility] Last Admin: 11/15/23 10:14 Dose: 10 mg Documented By: OSBALDO Sodium Chloride (0.9 % Sodium Chloride Flush 3 Ml Syringe) 3 ml IVFLUSH QSHIFT [facility] Last Admin: 11/15/23 10:14 Dose: 3 ml Documented By: ALEXANDR Labs 11/13/23 06:27 11/13/23 Unknown Labs: Laboratory Results - last 24 hr 11/13/23 11/14/23 11/14/23 Unknown 16:10 16:10 Beta HCG, Quant < 2 CSF Tube Number 3 1 CSF Volume CSF Appearance CSF Color CSF WBC CSF RBC CSF Neutrophils CSF Lymphocytes CSF Monocytes % CSF Appearance (b) CSF Glucose CSF Total Protein CSF C.neoform/gat PCR CSF CMV DNA (PCR) CSF Enterovirus (PCR) CSF E. coli K1 (PCR) CSF H. influenzae (PCR) CSF HSV I (PCR) CSF HSV II (PCR) CSF HHV 6 (PCR) CSF L.monocytogenes PCR CSF N. meningitidis PCR CSF Parechovirus (PCR) CSF S. agalactiae (PCR) CSF S. pneumoniae (PCR) CSF VZV (PCR) 11/14/23 11/14/23 11/14/23 16:10 16:10 16:10 Beta HCG, Quant CSF Tube Number 4 CSF Volume 2.0 1.5 CSF Appearance [place]DY [place]ZY CSF Color PINK CSF WBC CSF RBC CSF Neutrophils CSF Lymphocytes CSF Monocytes % CSF Appearance (b) CSF Glucose CSF Total Protein CSF C.neoform/gat PCR CSF CMV DNA (PCR) CSF Enterovirus (PCR) CSF E. coli K1 (PCR) CSF H. influenzae (PCR) CSF HSV I (PCR) CSF HSV II (PCR) CSF HHV 6 (PCR) CSF L.monocytogenes PCR CSF N. meningitidis PCR CSF Parechovirus (PCR) CSF S. agalactiae (PCR) CSF S. pneumoniae (PCR) CSF VZV (PCR) 11/14/23 11/14/23 11/14/23 16:10 16:10 16:10 Beta HCG, Quant CSF Tube Number CSF Volume CSF Appearance CSF Color PINK CSF WBC 1 0 CSF RBC 1032 76 CSF Neutrophils 48 CSF Lymphocytes CSF Monocytes % CSF Appearance (b) CSF Glucose CSF Total Protein CSF C.neoform/gat PCR CSF CMV DNA (PCR) CSF Enterovirus (PCR) CSF E. coli K1 (PCR) CSF H. influenzae (PCR) CSF HSV I (PCR) CSF HSV II (PCR) CSF HHV 6 (PCR) CSF L.monocytogenes PCR CSF N. meningitidis PCR CSF Parechovirus (PCR) CSF S. agalactiae (PCR) CSF S. pneumoniae (PCR) CSF VZV (PCR) 11/14/23 11/14/23 16:10 16:10 Beta HCG, Quant CSF Tube Number CSF Volume CSF Appearance CSF Color CSF WBC CSF RBC CSF Neutrophils 14 CSF Lymphocytes 45 14 CSF Monocytes % 2 CSF Appearance (b) Bloody CSF Glucose 56 CSF Total Protein 39.4 CSF C.neoform/gat PCR Not Detected CSF CMV DNA (PCR) Not Detected CSF Enterovirus (PCR) Not Detected CSF E. coli K1 (PCR) Not Detected CSF H. influenzae (PCR) Not Detected CSF HSV I (PCR) Not Detected CSF HSV II (PCR) Not Detected CSF HHV 6 (PCR) Not Detected CSF L.monocytogenes PCR Not Detected CSF N. meningitidis PCR Not Detected CSF Parechovirus (PCR) Not Detected CSF S. agalactiae (PCR) Not Detected CSF S. pneumoniae (PCR) Not Detected CSF VZV (PCR) Not Detected Microbiology Microbiology Results: Microbiology 11/14/23 16:10 Gram Stain - Final Cerebrospinal Fluid CSF Examination - Final Fluid Description - Final CSF Culture - Preliminary No growth to date. Assessment and Plan (1) Major depressive disorder, recurrent episode, severe, with psychosis: Status: Chronic Plan d4 23yo F with anxiety, depression, GERD, chronic tachycardia, ?cognitive delay initially admitted to [facility] with disorientation, auditory hallucinations, and paranoid and delusional behavior with vague SI transferred to hospitalist service after syncopal episode syncopal episode - extensively worked up in past by Cardiology: Echo with LVEF of 55-60% without valvular issues; Holter with underlying sinus rhythm with rate of 103/min with frequent sinus tachycardia; tilt-table test with orthostatic BP and HR changes suggestive of vasovagal syncope; recommendation at that time was for increasing fluid intake and liberalizing salt intake. - TTE 11/11/23: - Normal left ventricular cavity size. There is normal left ventricular wall thickness. The left ventricular systolic function is hyperdynamic. The visually estimated ejection fraction is >70%. There is no evidence of regional wall motion abnormalities. Diastolic function is normal for age. - Normal right ventricular cavity size and systolic function. possible encephalopathy though more likely major depression with psychosis - Per Neuro initial recommendation for LP + MRI though they very much doubt this is non-psychiatric in nature. - CT with contrast done 11/14/23, no abnormalities - LP done under anesthesia 11/14/23; bloody but clearing tap, protein normal, autoimmune panel sent to reference lab and will take weeks to [id number] - Per Psychiatry started IM Zyprexa 10 mg daily leukocytosis - resolved VTE ppx - LMWH dispo - plan return to [facility], awaiting CARE Team evaluation Total time managing care of this patient today: 35 minutes. Quality Stroke Does the patient have a stroke diagnosis?: No VTE Prior VTE?: No VTE Risk Level:: Medical - moderate - high VTE Device Contraindication: Treatment Not Indicated VTE Drug Contraindication: N/A - Med Ordered
[2023-11-15] MEDS: Lactated Ringers 1,000 ML 125 ML IVCONT (16:03)
--- NOTE | 2023-11-15 16:15 | MHC.CM.PN ---
EMR reviewed and per MD rounds, pt is medically cleared for D/C and awaiting return to inpatient psych unit.
--- NOTE | 2023-11-15 16:30 | PC.NURSE ---
Pt didnt voide from approx [id number]. Bladder scanned for 337ml, Md notified. Pt voided promptly after notified MD. Hr sustaining 130s. When OOB 140-150s, one time 170s with ambulation to bathroom. Pt appears stable but doesnt answer questions appropriately stating things about people, people in plain and saying she shot them. Are they healthy? He back to 120-130s when back in bed. Pt can get agitated at times but zyprexa and ativan scheduled seems to help. 2 assist to bathroom as pt very unsteady on her feet at this time.
[2023-11-15 17:39] LABS: UPreg QC Valid YES; Urine Pregnancy NEGATIVE (NEGATIVE)
[2023-11-16] VITALS: BP 130/59; PULSE 54; RESP 20; TEMP 36.6; O2SAT 96
[2023-11-16] MEDS: Lactated Ringers 1,000 ML 125 ML IVCONT ×2 (01:00→10:36)
[2023-11-16 03:03] VITALS: BP 119/72; PULSE 101; RESP 20; TEMP 36.7; O2SAT 98
[2023-11-16 07:32] VITALS: BP 145/67; PULSE 103; RESP 20; TEMP 36.7; O2SAT 95
[2023-11-16] MEDS: OLANZapine 10 MG VIAL IM (08:03)
[2023-11-16] MEDS: LORazepam 2 MG/ML VIAL 1 MG IVPUSH (08:03)
--- NOTE | 2023-11-16 10:47 | P.DS_ITS ---
DS: Providers Provider Date of Service: 11/16/23 Date of admission: 11/12/23 12:53 Date of discharge: 11/16/23 Primary care physician: Ruma Alvarado MD Consults: 11/11/23 15:52 Consult for Sitter Routine Reason for consultation: delerium Has provider been notified: No DS: Diagnosis Discharge Diagnosis (1) Major depressive disorder, recurrent episode, severe, with psychosis: Status: Chronic (2) Syncope: Status: Acute (3) Psychosis: Status: Acute DS: Summary Hospital Course Hospital Course: from admission H+P 11/10/23 by hospitalist LAMINE Alexander: Pt is a 23-year-old female with a PMH significant for anxiety, depression, GERD,?chronic tachycardia, and likely cognitive delay who is transferred from psych unit to the medical floor after syncopal episode. Pt initially presented to our ED after not sleeping for 3 days, disorientation, auditory hallucinations, and paranoid and delusional behavior with vague SI. Was contacted by nursing as patient had elevated BP of 192/113, heart rate 158, and elevated temperature of 99.9 degrees. Concern was for severe dehydration. Apparently patient had been refusing all food and drink, as well as all medications, for the past 2-3 days. Patient apparently has some kind of cognitive delay, and is unable to provide any meaningful HPI. Patient only asks about her mother during interview and exam. Nursing states that she seems more confused over the past 1-2 days. Upon examination patient appeared diaphoretic, pale, and with dry mucous membranes. Initial bloodwork was ordered and drawn. Patient then stood up to walk to nurses' station and then had syncopal episode. Was caught by nurse who was walking along with her and generally lowered to the floor and then set in a chair. Syncopal episode lasted a few seconds long. Of note, patient had significant workup for tachycardia by cardiology in early 2022. Workup showed echo with LVEF of 55-60% without valvular issues; Holter with underlying sinus rhythm with rate of 103/min with frequent sinus tachycardia; tilt-table test with orthostatic BP and HR changes suggestive of vasovagal syncope; recommendation at that time was for increasing fluid intake and liberalizing salt intake. Cardiology at that time thought that tachycardia was chronic with perhaps some component of deconditioning or possibly inappropriate sinus tachycardia. Advised against using beta-blockers or other rate slowing agents. Labs were significant for leukocytosis of 12.4, otherwise unremarkable. . Creatinine 0.66. No electrolyte abnormalities. POC Glucose 89. Lactic acid 1.0. EKG demonstrated sinus tachycardia of 121 with no evidence of significant ST elevations or depressions. Pt will be admitted to the hospital for treatment and further evaluation of syncopal episode. 23yo F with anxiety, depression, GERD, chronic tachycardia, and ?cognitive delay. She was initially admitted to with disorientation, auditory hallucinations, and paranoid and delusional behavior with vague SI. She was transferred to hospitalist service after a syncopal episode. Hospital course by problem: syncopal episode - extensively worked up in past by Cardiology: Echo with LVEF of 55-60% without valvular issues; Holter with underlying sinus rhythm with rate of 103/min with frequent sinus tachycardia; tilt-table test with orthostatic BP and HR changes suggestive of vasovagal syncope; recommendation at that time was for increasing fluid intake and liberalizing salt intake. - TTE 11/11/23: - Normal left ventricular cavity size. There is normal left ventricular wall thickness. The left ventricular systolic function is hyperdynamic. The visually estimated ejection fraction is >70%. There is no evidence of regional wall motion abnormalities. Diastolic function is normal for age. - Normal right ventricular cavity size and systolic function. - no recurrence of syncope question of encephalopathy though more likely major depression with psychosis - Per Neurology consultation, initial recommendation for LP + MRI though they very much doubt this is non-psychiatric in nature. - CT with contrast done 11/14/23, no abnormalities - LP done under anesthesia 11/14/23; bloody but clearing tap, protein normal, autoimmune panel sent to reference lab and will take weeks to return - Per Psychiatry started IM Zyprexa 10 mg daily leukocytosis - resolved She was transferred back to for resumption of psychiatric inpatient care. The psychiatrist will follow up results of the autoimmune panel from the CSF. Time Attestation Discharge Coordination Time (in mins): 45 Quality: Safe Use of Opioids Does Pt have an Active Cancer Diagnosis on the Problem List?: No Quality: Stroke Does the patient have a stroke diagnosis?: No Physical Exam Vital Signs: Vital Signs: Last Vital Signs Temp 98.0 F 11/16/23 07:32 Pulse 103 H 11/16/23 07:32 Resp 20 11/16/23 07:32 BP 145/67 H 11/16/23 07:32 Pulse Ox 95 11/16/23 07:32 O2 Del Method Room Air 11/16/23 07:32 O2 Flow Rate 2 11/16/23 00:00 FiO2 99 11/13/23 03:35 BMI result Body Mass Index 27.8 Gen: minimally verbal HEENT: sclera anicteric, moist mucus membranes Neck: supple Lungs: clear to auscultation bilaterally Heart: regular, no murmurs Abd: soft, non-tender, non-distended Ext: no edema Skin: warm/well-perfused Neuro: alert, disorganized thoughts Psych: impaired insight DS: Data Data Completed and Pending Completed studies during hospitalization [Text1]: Laboratory Results WBC 6.8 X10*3/uL (4.8-10.8) 11/13/23 06:27 RBC 4.20 X10*6/uL (4.20-5.50) 11/13/23 06:27 Hgb 11.1 g/dl (12.0-16.0) L 11/13/23 06:27 Hct 34.7 % (37.0-47.0) L 11/13/23 06:27 MCV 82.6 fL (80.0-98.0) 11/13/23 06:27 MCH 26.4 pg (27.0-33.0) L 11/13/23 06:27 MCHC 32.0 g/dl (31.0-35.0) 11/13/23 06:27 RDW 15.8 % (11.0-16.0) 11/13/23 06:27 Plt Count 316 X10*3/uL (160-400) 11/13/23 06:27 MPV 12.3 fL (9.4-12.3) 11/13/23 06:27 Immature Gran % (Auto) 0.3 % (0.0-0.4) 11/13/23 06: Neut % (Auto) 67.5 % (45-73) 11/13/23 06: Lymph % (Auto) 20.6 % (20-40) 11/13/23 06:27 [place] % (Auto) 8.6 % (2-11) 11/13/23 06:27 Eos % (Auto) 2.4 % (0-4) 11/13/23 06: Baso % (Auto) 0.6 % (0-2) 11/13/23 06:27 Lymph # (Auto) 1.4 X10*3/uL (1.2-4.9) 11/13/23 06:27 [place] # (Auto) 0.6 X10*3/uL (0.1-1.2) 11/13/23 06: Eos # (Auto) 0.2 X10*3/uL (0.0-0.4) 11/13/23 06: Baso # (Auto) 0.0 X10*3/uL (0.0-0.2) 11/13/23 06:27 Abs Immat Gran (auto) 0.02 X10*3/uL (0.00-0.03) 11/13/23 06:27 Absolute Neuts (auto) 4.6 x10*3/uL (2.0-8.3) 11/13/23 06:27 Absolute Nucleated RBC 0.000 X10*3/uL (0.0-0.012) 11/13/23 06: Nucleated RBC % (auto) 0.0 /100WBC (0.0-0.2) 11/13/23 06:27 Sodium 141 mmol/L (135-145) 11/13/23 Unknown Potassium 3.3 mmol/L (3.3-5.1) 11/13/23 Unknown Chloride 104 mmol/L (96-108) 11/13/23 Unknown Carbon Dioxide 24 mmol/L (22-29) 11/13/23 Unknown Anion Gap 16 (12-20) 11/13/23 Unknown BUN < 3 mg/dL (9-16) L 11/13/23 Unknown Creatinine 0.53 mg/dL (0.5-1.4) 11/13/23 Unknown Estim Creat Clear Calc TNP 11/13/23 Unknown Estimated GFR > 60 11/13/23 Unknown Random Glucose 67 mg/dL (60-115) 11/13/23 Unknown Fasting Glucose 72 mg/dL (60-99) 11/12/23 05:45 Calcium 8.4 mg/dL (8.4-10.2) 11/13/23 Unknown Magnesium 1.9 mg/dL (1.6-2.6) 11/13/23 Unknown Total Bilirubin 0.7 mg/dL (0.0-1.0) 11/12/23 05:45 AST 41 U/L (5-31) H 11/12/23 05:45 ALT 47 U/L (0-31) H 11/12/23 05:45 Alkaline Phosphatase 68 U/L (39-117) 11/12/23 05:45 Total Protein 6.0 g/dL (6.5-8.0) L 11/12/23 05:45 Albumin 3.4 g/dL (3.5-5.0) L 11/12/23 05:45 Beta HCG, Quant < 2 mIU/mL 11/13/23 Unknown Hold Green Top See Note 11/13/23 Unknown Urine Color Yellow 11/11/23 19:20 Urine Appearance Clear 11/11/23 19:20 Urine pH 7.5 (5.0-9.0) 11/11/23 19:20 Ur Specific [place] 1.010 (1.005-1.025) 11/11/23 19:20 Urine Protein Negative mg/dL (Neg-Trace) 11/11/23 19:20 Urine Glucose (UA) Negative mg/dL (Negative) 11/11/23 19:20 Urine Ketones 80 mg/dL (Negative) 11/11/23 19:20 Urine Blood Negative (Negative) 11/11/23 19:20 Urine Nitrite Negative (Negative) 11/11/23 19:20 Ur Leukocyte Esterase Negative (Negative) 11/11/23 19:20 Urine Test NEGATIVE (NEGATIVE) 11/15/23 15:23 CSF Tube Number 1 11/14/23 16:10 CSF Tube Number 3 11/14/23 16:10 CSF Tube Number 4 11/14/23 16:10 CSF Volume 1.5 ML 11/14/23 16:10 CSF Volume 2.0 ML 11/14/23 16:10 CSF Appearance CLOUDY 11/14/23 16:10 CSF Appearance HAZY 11/14/23 16:10 CSF Color PINK 11/14/23 16:10 CSF Color PINK 11/14/23 16:10 CSF WBC 0 MM*3 11/14/23 16:10 CSF WBC 1 MM*3 11/14/23 16:10 CSF RBC 76 MM*3 11/14/23 16:10 CSF RBC 1032 MM*3 11/14/23 16:10 CSF Neutrophils 14 % 11/14/23 16:10 CSF Neutrophils 48 % 11/14/23 16:10 CSF Lymphocytes 14 % 11/14/23 16:10 CSF Lymphocytes 45 % 11/14/23 16:10 CSF Monocytes % 2 % 11/14/23 16:10 CSF Appearance (b) Bloody 11/14/23 16:10 CSF Glucose 56 mg/dL 11/14/23 16:10 CSF Total Protein 39.4 mg/dL (15-45) 11/14/23 16:10 CSF C.neoform/gat PCR Not Detected (Not Detect.) 11/14/23 16:10 CSF CMV DNA (PCR) Not Detected (Not Detect.) 11/14/23 16:10 CSF Enterovirus (PCR) Not Detected (Not Detect.) 11/14/23 16:10 CSF E. coli K1 (PCR) Not Detected (Not Detect.) 11/14/23 16:10 CSF H. influenzae (PCR) Not Detected (Not Detect.) 11/14/23 16:10 CSF HSV I (PCR) Not Detected (Not Detect.) 11/14/23 16:10 CSF HSV II (PCR) Not Detected (Not Detect.) 11/14/23 16:10 CSF HHV 6 (PCR) Not Detected (Not Detect.) 11/14/23 16:10 CSF L.monocytogenes PCR Not Detected (Not Detect.) 11/14/23 16:10 CSF N. meningitidis PCR Not Detected (Not Detect.) 11/14/23 16:10 CSF Parechovirus (PCR) Not Detected (Not Detect.) 11/14/23 16:10 CSF S. agalactiae (PCR) Not Detected (Not Detect.) 11/14/23 16:10 CSF S. pneumoniae (PCR) Not Detected (Not Detect.) 11/14/23 16:10 CSF VZV (PCR) Not Detected (Not Detect.) 11/14/23 16:10 Influenza Type A (PCR) NEGATIVE (Negative) 11/10/23 22:30 Influenza Type B (PCR) NEGATIVE (Negative) 11/10/23 22:30 RSV RNA Qual (PCR) NEGATIVE (Negative) 11/10/23 22:30 SARS-CoV-2 RNA (RT-PCR) NEGATIVE (Negative) 11/10/23 22:30 Impressions Chest X-Ray 11/10/23 21:20 IMPRESSION: No acute cardiopulmonary findings. Lumbar Puncture Fluoroscopy 11/14/23 16:30 IMPRESSION: Image guided lumbar puncture at L3-L4 Head CT 11/14/23 16:51 IMPRESSION: No acute intracranial pathology. No abnormal enhancement. Discharge Plan Discharge Patient Disposition: Xfer Psychiatric Hosp Discharge Diagnosis: schizoaffective disorder (provisional); intellectual disability Referrals: Physician,Unknown J [Physician] - 1 Week Discharge Medications: New lorazepam 2 mg/mL Solution 1 mg IVPUSH TID Qty: 1 0RF olanzapine 10 mg Recon Soln 10 mg IM DAILY Qty: 1 0RF Discontinued pantoprazole 20 mg tablet,delayed release (DR/EC) 20 mg PO DAILY famotidine 20 mg tablet 20 mg PO BEDTIME Discharge Orders: Discharge Order (Routine); Ordered 11/16/23 Ordered By: Naeem Burden Diet: per medicine Activity on Discharge: As tolerated Stand Alone Forms: Patient Portal Discharge page Care Plan Goals: Resume psychiatric care Health Concerns: Syncope Question of encephaliatis Plan of Treatment: Resume psychiatric care Psychiatrist to follow up lumbar puncture results [autoimmune encephalititis panel] Assessment: See Discharge Summary.
--- NOTE | 2023-11-16 10:52 | MHC.CM.PN ---
Patient has been medically cleared for dc to return to [facility] today.
[2023-11-16 11:41] VITALS: BP 121/82; PULSE 105; RESP 20; TEMP 36.2; O2SAT 98
--- NOTE | 2023-11-16 13:23 | P.CDIM_ITS ---
PROVIDER RESPONSE TEXT: To clarify, the appropriate diagnosis supported by the clinical indicators: Other (explain): Unable to determine; more likely psychosis QUERY TEXT: PHYSICIAN'S DOCUMENTATION REQUEST Date of Query: 11/14/2023 08:38 AM EDT Patient Name: Preeti Adame Admit Date: 11/12/2023 Dear Naeem Burden, A review of the medical record indicates additional documentation may be needed. Please review below and update the documentation accordingly. Clinical Indicators: Per Hospitalist Progress Note 11/13/23: appears confused, alert disorganized thoughts, impaired insight Possible encephalopathy though more likely major depression with psychosis Based on the above, please further specify, in the Progress Notes, the known or suspected type of the documented encephalopathy: Metabolic Septic Toxic Toxic metabolic Hypertensive Anoxic Alcoholic Hepatic (reported as hepatic failure and needs further specificity as to acute, subacute, or chronic) Due to a specified condition (such as UTI, hyponatremia, CVA, etc.) Other (explain) Clinically unable to determine (explain) Thank you, Jolene Nesbitt RN Use of terms such as suspected, likely, concern for, or probable (associated with a specific diagnosi s that is being evaluated, monitored, or treated as if it exists) are acceptable and can be coded in the inpatient se tting, when documented at the time of discharge. Please use your independent medical judgment in providing your response. THIS QUERY IS PART OF THE PERMANENT MEDICAL RECORD
[2023-11-17 15:24] LABS: VDRL Qualitative CSF Nonreactive (Nonreactive)
[2023-11-21 16:28] LABS: Lyme IgG CSF Immunoblot NO BANDS DETECTED; Lyme IgM CSF Immunoblot NO BANDS DETECTED
[2023-11-26 10:25] LABS: Total Protein, CSF 46
[2023-11-26 10:26] LABS: Prealbumin, CSF 3.1
[2023-11-26 10:28] LABS: Gamma Globulin 11.1
== END 2023-11-16 13:15 | DRG 751 ==
PROVIDERS: Hospitalist; Physician Assistant Surgical; Admitting Provider Student in an Organized Health Care Education/Training Program; PCP Internal Medicine; Visit Provider Family Medicine
PROC: 009U3ZZ Drainage of Spinal Canal, Percutaneous Approach (ICD-10-PCS; CPT 62270; principal; 2023-11-14 14:10)
DX: F33.3 Major depressive disorder, recurrent, severe with psychotic symptoms (principal); K21.9 Gastro-esophageal reflux disease without esophagitis; Z20.822 Contact with and (suspected) exposure to COVID-19; Z79.899 Other long term (current) drug therapy
CPT/HCPCS: 0241U; 36415; 62328; 70460; 71045; 80048; 80053; 81003; 81025; 82945; 83519; 83735; 84157; 84166; 84702; 85025; 85027; 86052; 86255; 86335; 86341; 86592; 86596; 86617; 87015; 87070; 87116; 87205; 87206; 87483; 89051; 93306; J1630; J1650; J2060; J2250; J2359; J2704; J3010; J7120; Q9957; Q9967

== ENCOUNTER → 2023-11-10 20:40 | Outpatient (BNV) | payer OTHER, SELFPAY | PROVIDERS: Admitting Provider Student in an Organized Health Care Education/Training Program; Visit Provider Hospitalist | DX: F33.3 Major depressive disorder, recurrent, severe with psychotic symptoms (principal) | CPT/HCPCS: 99222; 99232; 99233; 99239 ==

== ENCOUNTER 2023-11-12 12:53 | Outpatient (BNV) | payer OTHER, SELFPAY | END 2023-11-14 15:15 | PROVIDERS: Admitting Provider Student in an Organized Health Care Education/Training Program; PCP Internal Medicine; Visit Provider Student in an Organized Health Care Education/Training Program | DX: R41.82 Altered mental status, unspecified (principal) | CPT/HCPCS: 62328 ==

== ENCOUNTER → 2023-11-12 12:53 | Outpatient (BNV) | payer OTHER, SELFPAY | PROVIDERS: Admitting Provider Student in an Organized Health Care Education/Training Program; PCP Internal Medicine; Visit Provider Psychiatry & Neurology Psychiatry | DX: F25.1 Schizoaffective disorder, depressive type (principal); F06.1 Catatonic disorder due to known physiological condition; I47.10 Supraventricular tachycardia, unspecified | CPT/HCPCS: 99232 ==

== ENCOUNTER 2023-11-16 12:19 | Outpatient (BNV) | payer OTHER, SELFPAY | END 2023-12-01 15:02 | PROVIDERS: Admitting Provider Psychiatry & Neurology Psychiatry; Visit Provider Internal Medicine | DX: F29 Unspecified psychosis not due to a substance or known physiological condition (principal); F25.9 Schizoaffective disorder, unspecified | CPT/HCPCS: 93010 ==

== ENCOUNTER 2023-11-16 12:19 | Inpatient (IN) | payer OTHER, SELFPAY ==
[2023-11-16 13:56] VITALS: BP 132/74; PULSE 97; RESP 16; TEMP 37.3; O2SAT 99
[2023-11-16] MEDS: hydrOXYzine HCL 25 MG TABLET PO (14:36)
--- NOTE | 2023-11-16 15:14 | PC.ADMIT ---
Pt transferred via w/c as intra-hospital transfer at 1345. She came with 1:1 staffing d/t being very unsteady on her feet. Pt VS WNL. Pt appears to be having auditory hallucinating. She was unable to participate in admission process, due to mental status. Pt is slow to answer questions, and most of the time her speech content is non-sensicle. Her speech volume is very quiet. She is making poor eye contact. Dressed in [facility].
--- NOTE | 2023-11-16 17:19 | PC.NURSE ---
This nurse tiger texted Jennifer Ibarra MD because patient is very restless and appears to be very anxious. Pt is continually attempting to sit or stand and is very unsteady on her feet. With 1:1 staffing currently. Pt also states that she is anxious. Pt also observed as having bright/dark orange urine and is declining to drink liquids. Answer pending from provider.
[2023-11-16] MEDS: OLANZapine ODT 10 MG TAB.RAPDIS 5 MG TRANSLINGU (17:55)
[2023-11-16 19:42] LABS: MANUAL DIFF FLAG NO
[2023-11-16 19:43] LABS: Basophils Percent Auto 0.6 % (0-2); Eosinophils Absolute Auto 0.2 X10*3/uL (0.0-0.4); Eosinophils Percent Auto 3.3 % (0-4); Hematocrit 38.7 % (37.0-47.0); Hemoglobin 12.7 g/dl (12.0-16.0); Imm Gran Abs Auto 0.02 X10*3/uL (0.00-0.03); Imm Gran Pct Auto 0.3 % (0.0-0.4); Lymphocytes Absolute Auto 1.6 X10*3/uL (1.2-4.9); Lymphocytes Percent Auto 22.9 % (20-40); Mean Corpuscular HGB Conc 32.8 g/dl (31.0-35.0); Mean Corpuscular Hemoglobin 26.6 pg (27.0-33.0); Mean Corpuscular Volume 81.1 fL (80.0-98.0); Mean Platelet Volume 10.6 fL (9.4-12.3); Monocytes Absolute Auto 0.8 X10*3/uL (0.1-1.2); Monocytes Percent Auto 11.4 % (2-11); Neutrophils Absolute Auto 4.3 x10*3/uL (2.0-8.3); Neutrophils Percent Auto 61.5 % (45-73); Platelet Count 393 X10*3/uL (160-400); Red Blood Count 4.77 X10*6/uL (4.20-5.50); Red Cell Distribution Width 16.2 % (11.0-16.0)
[2023-11-16 20:03] LABS: Anion Gap 11 (12-20); Blood Urea Nitrogen < 3 mg/dL (9-16); Calcium 9.2 mg/dL (8.4-10.2); Carbon Dioxide 26 mmol/L (22-29); Chloride 109 mmol/L (96-108); Estimated Glomerular Filt Rate > 60; Glucose Random 94 mg/dL (60-115); Potassium 3.7 mmol/L (3.3-5.1); Sodium 142 mmol/L (135-145)
[2023-11-16 20:28] VITALS: BP 114/71; PULSE 94; TEMP 36.9; O2SAT 97
[2023-11-16] MEDS: OLANZapine ODT 10 MG TAB.RAPDIS TRANSLINGU (22:15)
[2023-11-16] MEDS: LORazepam 1 MG TABLET PO (22:15)
[2023-11-16] MEDS: traZODone HCL 50 MG TABLET PO (22:15)
[2023-11-17 08:19] VITALS: BP 134/82; PULSE 87; RESP 16; TEMP 36.6; O2SAT 100
[2023-11-17] MEDS: LORazepam 1 MG TABLET PO ×2 (09:25→16:14)
[2023-11-17] MEDS: OLANZapine ODT 10 MG TAB.RAPDIS 5 MG TRANSLINGU (11:37)
[2023-11-17 12:31] LABS: Alanine Aminotransferase 36 U/L (0-31); Albumin Level 3.9 g/dL (3.5-5.0); Alkaline Phosphatase 72 U/L (39-117); Anion Gap 15 (12-20); Aspartate Amino Transferase 30 U/L (5-31); Bilirubin Total 0.4 mg/dL (0.0-1.0); Blood Urea Nitrogen 3 mg/dL (9-16); Calcium 9.4 mg/dL (8.4-10.2); Carbon Dioxide 20 mmol/L (22-29); Chloride 110 mmol/L (96-108); Cholesterol 142 mg/dL (<200); Estimated Glomerular Filt Rate > 60; Glucose Fasting 74 mg/dL (60-99); HDL Cholesterol 52 mg/dL (>40); LDL Cholesterol Calculated 73 mg/dL (<100); Potassium 3.8 mmol/L (3.3-5.1); Sodium 141 mmol/L (135-145); Total Protein 6.9 g/dL (6.5-8.0); Triglycerides 85 mg/dL (<150)
--- NOTE | 2023-11-17 12:45 | HO.PSYADMNOT ---
HPI Date of Service: 11/17/23 Chief Complaint: Catatonia Sources of Information: patient interviewed and chart reviewed HPI Subjective Notes: Conditional Voluntary Narrative: 23 yo presents in transfer to [facility] from medical floor- where she was seen due to instability due to poor po intake/need for ivs- with dizziness and confusion- was worked up for ? encephalopathy- Especially with new onset psychosis. Within 12 hours of being here is more verbal, eating and drinkingwith support of 1:1 May be deconditioned from being in bed at medical unit- Past Psychiatric History: evaluated by care team at [facility] in past on 09/22/23 for reported overdose of 3 tablets of benadryl 25mg; inpatient at [facility] [address]. [facility] 2016. Ongoing outpatient at [facility] Medical Evaluation Reviewed: Yes (encephalopathy and other causes of mental illness have been ruled out - ) [facility] Medical History Intellectual disability Contraception management Vitamin D deficiency Vitamin B12 deficiency Uses control Hx of ovarian cyst Epigastric abdominal pain Orthostatic hypotension Supraventricular tachycardia by ECG Major depression in partial remission Left ovarian cyst Migraine Surgical History H/O removal of cyst Family History: lives with mother and grandfather Social History: has BF per mother but he dosed not live locally Trauma History: pt unable to answer today Diagnostics Vital Signs (24Hr): Vital Signs - 24 hr 11/16/23 13:56 11/16/23 20:28 11/17/23 08:19 Temperature 99.2 F 98.4 F 97.9 F Pulse Rate 97 94 87 Respiratory Rate 16 16 Blood Pressure 132/74 114/71 134/82 Pulse Oximetry 99 97 100 Oxygen Delivery Method Room Air Room Air Labs 11/16/23 19:38 11/17/23 07:27 Labs: Laboratory Results - last 48 hr 11/16/23 11/17/23 19:38 07:27 WBC 7.0 RBC 4.77 Hgb 12.7 Hct 38.7 MCV 81.1 MCH 26.6 L MCHC 32.8 RDW 16.2 H Plt Count 393 MPV 10.6 Immature Gran % (Auto) 0.3 Neut % (Auto) 61.5 Lymph % (Auto) 22.9 [place] % (Auto) 11.4 H Eos % (Auto) 3.3 Baso % (Auto) 0.6 Lymph # (Auto) 1.6 [place] # (Auto) 0.8 Eos # (Auto) 0.2 Baso # (Auto) 0.0 Abs Immat Gran (auto) 0.02 Absolute Neuts (auto) 4.3 Absolute Nucleated RBC 0.000 Nucleated RBC % (auto) 0.0 Sodium 142 141 Potassium 3.7 3.8 Chloride 109 H 110 H Carbon Dioxide 26 20 L Anion Gap 11 L 15 BUN < 3 L 3 L Creatinine 0.57 0.57 Estim Creat Clear Calc TNP TNP Estimated GFR > 60 > 60 Random Glucose 94 Fasting Glucose 74 Calcium 9.2 D 9.4 Total Bilirubin 0.4 AST 30 ALT 36 H Alkaline Phosphatase 72 Total Protein 6.9 Albumin 3.9 Triglycerides 85 Cholesterol 142 LDL Cholesterol, Calc 73 HDL Cholesterol 52 Meds/Allergies Meds Narrative: reviewed medication from earlier in hospitalization on unit 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 Allergies Allergies Allergy/AdvReac Type Severity Reaction Status Date / Time haloperidol AdvReac EPS Verified 11/15/23 12:43 metoprolol AdvReac Diarrhea Verified 10/07/23 23:43 Mental Status Exam Mental Status Exam Narrative: dry lips Patient Appearance: Fatigued Patient Orientation: Person Level of Consciousness: Awake Patient Behavior: Cooperative and Good Eye Contact Mood Description: Apathetic Affect Description: Blunted Patient Cognition Impaired: Yes Ability to Follow Directions: Fair Speech Pattern: Soft-Spoken and Poor Articulation Hallucinations: Auditory Delusions: Paranoid Ideation and Bizarre Thought Process: Slowed Thinking Thought Content: positive for Poverty of Content Abnormal Motor Activity Signs and Symptoms: Psychomotor Retardation Judgement: Poor Assessment & Plan Assessment & Plan (1) Intellectual disability: Status: Acute Code(s): F79 - Unspecified intellectual disabilities (2) Psychosis: Status: Acute Qualifiers: Psychosis type: unspecified psychosis type Qualified Code(s): F29 - Unspecified psychosis not due to a substance or known physiological condition Code(s): F29 - Unspecified psychosis not due to a substance or known physiological condition Plan 11/17/23- continue lorazepam 1mg tid and olanzapine zydis. 1:1 for issues around safety and self care. Patient educated on: other (need for PO intake) Reason for continued inpatient stay Substantial Risk for: harm to self, rapid decompensation and med/psych decompensation Statement Statement: I have reviewed the history and physical and performed a pertinent examination on my patient. No changes have occurred unless specified. If the History and Physical was not performed prior to admission, the Hospitalist's service will be consulted for completing the admission physical. Time Spent With Patient Time: Total time managing care of this patient today ____ minutes.
[2023-11-17 13:13] LABS: Appearance Urine Cloudy; Color Urine Yellow; Glucose Urine UA Negative (Negative); Leukocyte Esterase Urine Moderate (2+) (Negative); Nitrite Urine Negative (Negative); PH 8.5 (5.0-9.0); Specific Gravity - Urine 1.015 (1.005-1.025); UMIC TRIGGER UA YES; Urine Blood Negative (Negative); Urine Ketones Negative (Negative); Urine Protein Negative (Neg-Trace)
[2023-11-17 13:29] LABS: Bacteria Urine 2+ (None Seen); Hyaline Casts Urine 0-2 /LPF (0-2); Other Crystals Urine Present; RBC Urine 0-2 /HPF (0-2)
[2023-11-17 18:00] VITALS: BP 117/71; PULSE 107; TEMP 36.8; O2SAT 97
[2023-11-17] MEDS: traZODone HCL 50 MG TABLET PO (21:20)
[2023-11-18 08:00] VITALS: BP 120/83; PULSE 97; RESP 16; TEMP 36.8; O2SAT 100
[2023-11-18 09:05] VITALS: BP 120/83; PULSE 97; RESP 18; TEMP 36.8; O2SAT 100
--- NOTE | 2023-11-18 09:58 | HO.PSYCHPN ---
Subjective Subjective Date of Service: 11/18/23 Reason For Visit: Catatonia Interim History: met with patient; discussed with team; reviewed chart Patient transferred back to psychiatric unit from medical floor. She remains floridly psychotic, with auditory hallucinations that say mean things, paranoid delusions, disorganized, needing one-to-one to guide her around the unit and attend to all ADLs. Senior Audit Manager consulted with Dr. Ackerman who met with patient on the unit with commercial lines underwriter and agreed that patient will do best to start ECT as soon as possible. Discussed medication regimen going forward with which he agrees; discussed case with Michelle Gary, hospitalist LAMINE who says she is cleared for ECT and will put in note saying so. Mental Status Exam Mental Status Exam Narrative: Pt is alert and oriented; behavior is disorganized; patient is not in distress; dressed in hospitall attire disheveled; mood is described as anxious and affect blunted; eye contact limited; psychomotor retardation present; Speech is impoverished and mostly mute; otherwise slow, soft; Thought process distracted; at times can be goal oriented; Thought content is on delusional, paranoid fears; denies any SI/HI. AH remains; Patients insight and judgment impaired. Diagnostics Vital Signs (24Hr): Vital Signs - 24 hr 11/17/23 18:00 11/18/23 08:00 11/18/23 09:05 Temperature 98.2 F 98.3 F 98.3 F Pulse Rate 107 H 97 97 Respiratory Rate 16 18 Blood Pressure 117/71 120/83 120/83 Pulse Oximetry 97 100 100 Oxygen Delivery Method Room Air Room Air Room Air Labs 11/16/23 19:38 11/17/23 07:27 Labs: Laboratory Results - last 48 hr 11/16/23 11/17/23 11/17/23 19:38 07:27 12:37 WBC 7.0 RBC 4.77 Hgb 12.7 Hct 38.7 MCV 81.1 MCH 26.6 L MCHC 32.8 RDW 16.2 H Plt Count 393 MPV 10.6 Immature Gran % (Auto) 0.3 Neut % (Auto) 61.5 Lymph % (Auto) 22.9 [place] % (Auto) 11.4 H Eos % (Auto) 3.3 Baso % (Auto) 0.6 Lymph # (Auto) 1.6 [place] # (Auto) 0.8 Eos # (Auto) 0.2 Baso # (Auto) 0.0 Abs Immat Gran (auto) 0.02 Absolute Neuts (auto) 4.3 Absolute Nucleated RBC 0.000 Nucleated RBC % (auto) 0.0 Sodium 142 141 Potassium 3.7 3.8 Chloride 109 H 110 H Carbon Dioxide 26 20 L Anion Gap 11 L 15 BUN < 3 L 3 L Creatinine 0.57 0.57 Estim Creat Clear Calc TNP TNP Estimated GFR > 60 > 60 Random Glucose 94 Fasting Glucose 74 Calcium 9.2 D 9.4 Total Bilirubin 0.4 AST 30 ALT 36 H Alkaline Phosphatase 72 Total Protein 6.9 Albumin 3.9 Triglycerides 85 Cholesterol 142 LDL Cholesterol, Calc 73 HDL Cholesterol 52 Urine Color Yellow Urine Appearance Cloudy Urine pH 8.5 Ur Specific [place] 1.015 Urine Protein Negative Urine Glucose (UA) Negative Urine Ketones Negative Urine Blood Negative Urine Nitrite Negative Ur Leukocyte Esterase Moderate (2+) H Urine RBC 0-2 Urine WBC 6-10 H Ur Squamous Epith Cells 11-20 Other Crystals Present Urine Bacteria 2+ Hyaline Casts 0-2 Medications Medications Current Medications Acetaminophen (Acetaminophen 325 Mg Tablet) 650 mg PO Q6H PRN PRN Reason: Headache/Pain Mild Scale (1-3) Al Hydroxide/Mg Hydroxide (Magnesium Hydrox/Alum Hydrox 30 Ml Oral.Susp) 30 ml PO Q6H PRN PRN Reason: Heartburn/Nausea Hydroxyzine HCl (Hydroxyzine Hcl 25 Mg Tablet) 25 mg PO Q6H PRN PRN Reason: Anxiety Last Admin: 11/16/23 14:36 Dose: 25 mg Lorazepam (Lorazepam 1 Mg Tablet) 1 mg PO TID KRISTI Last Admin: 11/18/23 08:56 Dose: Not Given Magnesium Hydroxide (Milk Of Magnesia 30 Ml Oral.Susp) 30 ml PO DAILY PRN PRN Reason: Constipation Olanzapine (Olanzapine Odt 10 Mg Tab.Rapdis) 10 mg TRANSLINGU BEDTIME KRISTI Last Admin: 11/17/23 21:39 Dose: Not Given Olanzapine (Olanzapine Odt 10 Mg Tab.Rapdis) 5 mg TRANSLINGU BID PRN PRN Reason: anxiety/restlessness Last Admin: 11/17/23 11:37 Dose: 5 mg Trazodone HCl (Trazodone Hcl 50 Mg Tablet) 50 mg PO BEDTIME MRX1 PRN PRN Reason: Insomnia Last Admin: 11/17/23 21:20 Dose: 50 mg Allergies Allergies Allergy/AdvReac Type Severity Reaction Status Date / Time haloperidol AdvReac EPS Verified 11/15/23 12:43 metoprolol AdvReac Diarrhea Verified 10/07/23 23:43 Assessment & Plan Assessment & Plan (1) Psychosis: Qualifiers: Psychosis type: unspecified psychosis type Qualified Code(s): F29 - Unspecified psychosis not due to a substance or known physiological condition Status: Acute Code(s): F29 - Unspecified psychosis not due to a substance or known physiological condition (2) Intellectual disability: Status: Acute Code(s): F79 - Unspecified intellectual disabilities Plan Hospital course: 11/16 continue lorazepam 1mg tid and olanzapine zydis; 1:1 for issues around safety and self care. 11/17 Patient transferred back to psychiatric unit from medical floor. She remains floridly psychotic, with auditory hallucinations that say mean things, paranoid delusions, disorganized, needing one-to-one to guide her around the unit and attend to all ADLs. Senior Audit Manager consulted with Dr. Ackerman who met with patient on the unit with commercial lines underwriter and agreed that patient will do best to start ECT as soon as possible. Discussed medication regimen going forward with which he agrees; discussed case with Michelle Gary, hospitalist LAMINE who says she is cleared for ECT and will put in note saying so. Impression: Patient is floridly psychotic and delusional, hardly eating, with very disorganized behavior requiring one-to-one to walk on the unit let alone attend ADLs. Thus far medication trials have been ineffective; she has catatonic like features and a psychotic delirium for which the treatment is ECT which is included in substituted judgment. Will restart Abilify since it may have helped a little however will not have an IM backup if she refuses since it is unclear if Abilify did actually help and less clear that an IM of another antipsychotic will help at all; will continue with the Ativan however will not have an IM backup for similar reasons PLAN: Section 8/8b 1:1 for pt safety (no longer requires wheel chair) START abilify 5mg TID (will hold off w/ IM back up for now) continue ativan 1mg TID (will hold off w/ IM back up for now) ECT ordered (COURT ORDERED with substituted judgment; patient can not refuse) DC Olanzapine Patient educated on: diagnosis, medication risk/benefits and ECT Informed Consent: does not understand Reason for continued inpatient stay Substantial Risk for: inability to function Time Spent With Patient Time: Total time managing care of this patient today ____ minutes.
--- NOTE | 2023-11-18 12:41 | PM.EVENT ---
Event Note Date of Service: 11/18/23 Event Note: 23 year old female with history of schizoaffective disorder, bipolar disorder, cognitive delay, GERD, and chronic sinus tachcyardia admitted to psychiatry with consult placed to hospitalist service for ect evaluation. She is a very limited historian and does not contirbute much to history. Medical record reviewed in EMR and discussed with psychiatry. No known history of seziures. No known history of cardiovascular disease. Was recently admitted to medicine with echocardiogram performed due to syncopal episode (pt with severe dehydration as had no tbeen eating or drinking for several days). Echo showed hyperdynamic LV systolic function EF >70% with normal diastolic dysfunction for age. No valvular abnormality, no regional wall motion abnormality. EKG shows sinus tach, rate 121, no acute st/t wave abnornormaly. Renal function baseline, lytes normal. Head CT and LP ordered due to encephalopathy. head CT unremarkable. LP with normal protein, autoimmune panel pending and will likely take weeks to result. Encephalopathy likely related to depression/psychosis. At this time, chart reviewed and no medical contraindication exists that should preclude patient from undergoing ECT Time Spent With Patient Time: Total time managing care of this patient today ____ minutes.
[2023-11-18] MEDS: LORazepam 1 MG TABLET PO (16:21)
[2023-11-18 16:35] VITALS: BP 119/74; PULSE 108; RESP 16; TEMP 36.7; O2SAT 100
[2023-11-19 08:10] VITALS: BP 115/71; PULSE 96; RESP 16; TEMP 36.7; O2SAT 97
[2023-11-19] MEDS: ARIPiprazole 5 MG TABLET PO ×3 (08:50→19:27)
[2023-11-19] MEDS: LORazepam 1 MG TABLET PO ×3 (08:51→19:27)
--- NOTE | 2023-11-19 09:56 | P.PNPSI_ITS ---
Subjective Subjective Date of Service: 11/19/23 Reason For Visit: Catatonia Interim History: met with patient; discussed with team; discussed case w/ outpt provider pt remains delusional w/ AH; says she broke the law...reports AH. software writer discussed ECT with her and she says she wants it since it may take away the AH. Mental Status Exam Mental Status Exam Narrative: Pt is alert and oriented; behavior is disorganized; patient is not in distress; dressed in hospitall attire disheveled; mood is described as anxious and affect blunted; eye contact limited; psychomotor retardation present; Speech is impoverished and mostly mute; otherwise slow, soft; Thought process distracted; at times can be goal oriented; Thought content is on delusional, paranoid fears; denies any SI/HI. AH remains; Patients insight and judgment impaired. Diagnostics Vital Signs (24Hr): Vital Signs - 24 hr 11/18/23 16:35 11/19/23 08:10 Temperature 98.1 F 98.1 F Pulse Rate 108 H 96 Respiratory Rate 16 16 Blood Pressure 119/74 115/71 Pulse Oximetry 100 97 Oxygen Delivery Method Room Air Room Air Labs 11/16/23 19:38 11/17/23 07:27 Labs: Laboratory Results - last 48 hr 11/17/23 11/17/23 07:27 12:37 Sodium 141 Potassium 3.8 Chloride 110 H Carbon Dioxide 20 L Anion Gap 15 BUN 3 L Creatinine 0.57 Estim Creat Clear Calc TNP Estimated GFR > 60 Fasting Glucose 74 Calcium 9.4 Total Bilirubin 0.4 AST 30 ALT 36 H Alkaline Phosphatase 72 Total Protein 6.9 Albumin 3.9 Triglycerides 85 Cholesterol 142 LDL Cholesterol, Calc 73 HDL Cholesterol 52 Urine Color Yellow Urine Appearance Cloudy Urine pH 8.5 Ur Specific [place] 1.015 Urine Protein Negative Urine Glucose (UA) Negative Urine Ketones Negative Urine Blood Negative Urine Nitrite Negative Ur Leukocyte Esterase Moderate (2+) H Urine RBC 0-2 Urine WBC 6-10 H Ur Squamous Epith Cells 11-20 Other Crystals Present Urine Bacteria 2+ Hyaline Casts 0-2 Medications Medications Current Medications Acetaminophen (Acetaminophen 325 Mg Tablet) 650 mg PO Q6H PRN PRN Reason: Headache/Pain Mild Scale (1-3) Al Hydroxide/Mg Hydroxide (Magnesium Hydrox/Alum Hydrox 30 Ml Oral.Susp) 30 ml PO Q6H PRN PRN Reason: Heartburn/Nausea Aripiprazole (Aripiprazole 5 Mg Tablet) 5 mg PO TID KRISTI Last Admin: 11/19/23 08:50 Dose: 5 mg Hydroxyzine HCl (Hydroxyzine Hcl 25 Mg Tablet) 25 mg PO Q6H PRN PRN Reason: Anxiety Last Admin: 11/16/23 14:36 Dose: 25 mg Lorazepam (Lorazepam 1 Mg Tablet) 1 mg PO TID KRISTI Last Admin: 11/19/23 08:51 Dose: 1 mg Lorazepam (Lorazepam 2 Mg/Ml Vial) 2 mg IM DAILY PRN PRN Reason: 30 min prior to ECT Magnesium Hydroxide (Milk Of Magnesia 30 Ml Oral.Susp) 30 ml PO DAILY PRN PRN Reason: Constipation Trazodone HCl (Trazodone Hcl 50 Mg Tablet) 50 mg PO BEDTIME MRX1 PRN PRN Reason: Insomnia Last Admin: 11/17/23 21:20 Dose: 50 mg Allergies Allergies Allergy/AdvReac Type Severity Reaction Status Date / Time haloperidol AdvReac EPS Verified 11/15/23 12:43 metoprolol AdvReac Diarrhea Verified 10/07/23 23:43 Assessment & Plan Assessment & Plan (1) Psychosis: Qualifiers: Psychosis type: unspecified psychosis type Qualified Code(s): F29 - Unspecified psychosis not due to a substance or known physiological condition Status: Acute Code(s): F29 - Unspecified psychosis not due to a substance or known physiological condition (2) Intellectual disability: Status: Acute Code(s): F79 - Unspecified intellectual disabilities Plan Hospital course: 11/16 continue lorazepam 1mg tid and olanzapine zydis; 1:1 for issues around safety and self care. 11/17 Patient transferred back to psychiatric unit from medical floor. She remains floridly psychotic, with auditory hallucinations that say mean things, paranoid delusions, disorganized, needing one-to-one to guide her around the unit and attend to all ADLs. Adjudication Specialist consulted with Dr. Ackerman who met with patient on the unit with software writer and agreed that patient will do best to start ECT as soon as possible. Discussed medication regimen going forward with which he agrees; discussed case with Michelle Gary, hospitalist LAMINE who says she is cleared for ECT and will put in note saying so. Impression: Patient is floridly psychotic and delusional, hardly eating, with very disorganized behavior requiring one-to-one to walk on the unit let alone attend ADLs. Thus far medication trials have been ineffective; she has catatonic like features and a psychotic delirium for which the treatment is ECT which is included in substituted judgment. Will restart Abilify since it may have helped a little however will not have an IM backup if she refuses since it is unclear if Abilify did actually help and less clear that an IM of another antipsychotic will help at all; will continue with the Ativan however will not have an IM backup for similar reasons hospital course: 11/18 pt remains delusional w/ AH; says she broke the law...reports AH. software writer discussed ECT with her and she says she wants it since it may take away the AH. Eat some food which was encouraging; took some meds but then spit it out PLAN: Section 8/8b 1:1 for fall risk and disorganized ECT #1 on 11/19 (COURT ORDERED with substituted judgment; patient can not refuse) -npo -give Ativan 2mg IM prior continue abilify 5mg TID (will hold off w/ IM back up for now) continue ativan 1mg TID (will hold off w/ IM back up for now) DC Olanzapine Patient educated on: diagnosis and ECT Informed Consent: understands and does not understand Reason for continued inpatient stay Substantial Risk for: inability to function Time Spent With Patient Time: Total time managing care of this patient today ____ minutes.
--- NOTE | 2023-11-19 13:19 | PC.NURSE ---
Pt eligable for flu vaccine, was offered and declined.
[2023-11-19 19:36] VITALS: BP 118/69; PULSE 93; RESP 16; TEMP 36.8; O2SAT 97
[2023-11-20] VITALS (11 sets, daily range): BP systolic 105–150; BP diastolic 63–92; PULSE 86–112; RESP 16–20; TEMP 36.3–37.3; O2SAT 92–98
[2023-11-20] MEDS: LORazepam 2 MG/ML VIAL IM (05:49)
--- NOTE | 2023-11-20 06:51 | P.CONAN_ITS ---
[facility] Active Problems Active Problems: All Active Problems (Updated 11/18/23 @ 00:01 by Alen Gordon) Syncope (Acute) Intellectual disability (Acute) Psychosis (Acute) Major depressive disorder, recurrent episode, severe, with psychosis (Chronic) Major depression (Acute) Auditory hallucinations (Acute) Suicidal ideation (Acute) COVID-19 (Acute) Contraception management (Acute) Vitamin D deficiency (Acute) Vitamin B12 deficiency (Acute) Uses control (Acute) Orthostatic hypotension (Acute) Supraventricular tachycardia by ECG (Acute) Major depression in partial remission (Acute) Left ovarian cyst (Acute) Migraine (Acute) Past Medical History Medical History Intellectual disability Contraception management Vitamin D deficiency Vitamin B12 deficiency Uses control Hx of ovarian cyst Epigastric abdominal pain Orthostatic hypotension Supraventricular tachycardia by ECG Major depression in partial remission Left ovarian cyst Migraine Family History Family History Mother Bipolar disorder Mental health disorder Family history of problems with anesthesia: No Surgical History Surgical History H/O removal of cyst History of Problems with Anesthesia: No Social History Social History Household Members: Other Household Members Other:: Pt unable to answer questions d/t mental status. Housing: Other Housing Other:: Pt unable to answer questions d/t mental status. Alcohol intake: never Comment: Pt utilizing wheelchair with staff assistance. Patient Tobacco Use Status: Never used Tobacco e-Cigarette/Vaping Use: Never Used Second Hand Smoke Exposure: No Use of substances other than those prescribed or required for medical reasons: Unknown Substance Use Type: Unknown Last Used Substance: Unknown Last Used Substance Other:: Pt unable to answer questions d/t mental status. Currently Displaying Signs/Symptoms of Drug Intoxication Withdrawal: No Other Past Substance Use Problem:: Pt unable to answer questions d/t mental status. Advance Directives: No Advance Directives Information Provided: Yes Do you have thoughts of harming others: None Do you have a plan to hurt others: No Plan How much weight loss: Unsure Patient : No : No Poor oral hygiene: Yes service: No Current occupational status: unemployed Sexual orientation: Unable to collect Cognitive needs: No Hearing needs: No Vision needs: No Meds Allergies Allergy/AdvReac Type Severity Reaction Status Date / Time haloperidol AdvReac EPS Verified 11/15/23 12:43 metoprolol AdvReac Diarrhea Verified 10/07/23 23:43 Active Medications: Current Medications Acetaminophen (Acetaminophen 325 Mg Tablet) 650 mg PO Q6H PRN PRN Reason: Headache/Pain Mild Scale (1-3) Al Hydroxide/Mg Hydroxide (Magnesium Hydrox/Alum Hydrox 30 Ml Oral.Susp) 30 ml PO Q6H PRN PRN Reason: Heartburn/Nausea Aripiprazole (Aripiprazole 5 Mg Tablet) 5 mg PO TID KRISTI Last Admin: 11/19/23 19:27 Dose: 5 mg Hydroxyzine HCl (Hydroxyzine Hcl 25 Mg Tablet) 25 mg PO Q6H PRN PRN Reason: Anxiety Last Admin: 11/16/23 14:36 Dose: 25 mg Lactated Ringer's (Lr) 1,000 mls @ 50 mls/hr IVCONT .Q20H KRISTI Lorazepam (Lorazepam 1 Mg Tablet) 1 mg PO TID [facility] Last Admin: 11/19/23 19:27 Dose: 1 mg Lorazepam (Lorazepam 2 Mg/Ml Vial) 2 mg IM DAILY PRN PRN Reason: 30 min prior to ECT Last Admin: 11/20/23 05:49 Dose: 2 mg Magnesium Hydroxide (Milk Of Magnesia 30 Ml Oral.Susp) 30 ml PO DAILY PRN PRN Reason: Constipation Trazodone HCl (Trazodone Hcl 50 Mg Tablet) 50 mg PO BEDTIME MRX1 PRN PRN Reason: Insomnia Last Admin: 11/17/23 21:20 Dose: 50 mg Exam Height,Weight and Vital Signs: Last Vital Signs Temp 97.6 F 11/20/23 06:47 Pulse 92 11/20/23 06:47 Resp 20 11/20/23 06:47 BP 105/69 11/20/23 06:47 Pulse Ox 97 11/20/23 06:47 O2 Del Method Room Air 11/20/23 06:47 Pertinent Lab Results Pertinent Lab Results: Laboratory Tests 11/16/23 11/17/23 11/17/23 19:38 07:27 12:37 WBC 7.0 RBC 4.77 Hgb 12.7 Hct 38.7 MCV 81.1 MCH 26.6 L MCHC 32.8 RDW 16.2 H Plt Count 393 MPV 10.6 Immature Gran % (Auto) 0.3 Neut % (Auto) 61.5 Lymph % (Auto) 22.9 [place] % (Auto) 11.4 H Eos % (Auto) 3.3 Baso % (Auto) 0.6 Lymph # (Auto) 1.6 [place] # (Auto) 0.8 Eos # (Auto) 0.2 Baso # (Auto) 0.0 Abs Immat Gran (auto) 0.02 Absolute Neuts (auto) 4.3 Absolute Nucleated RBC 0.000 Nucleated RBC % (auto) 0.0 Sodium 142 141 Potassium 3.7 3.8 Chloride 109 H 110 H Carbon Dioxide 26 20 L Anion Gap 11 L 15 BUN < 3 L 3 L Creatinine 0.57 0.57 Estim Creat Clear Calc TNP TNP Estimated GFR > 60 > 60 Random Glucose 94 Fasting Glucose 74 Calcium 9.2 D 9.4 Total Bilirubin 0.4 AST 30 ALT 36 H Alkaline Phosphatase 72 Total Protein 6.9 Albumin 3.9 Triglycerides 85 Cholesterol 142 LDL Cholesterol, Calc 73 HDL Cholesterol 52 Urine Color Yellow Urine Appearance Cloudy Urine pH 8.5 Ur Specific [place] 1.015 Urine Protein Negative Urine Glucose (UA) Negative Urine Ketones Negative Urine Blood Negative Urine Nitrite Negative Ur Leukocyte Esterase Moderate (2+) H Urine RBC 0-2 Urine WBC 6-10 H Ur Squamous Epith Cells 11-20 Other Crystals Present Urine Bacteria 2+ Hyaline Casts 0-2 Airway Mallampati Class: Patient Non-Cooperative TM Dist: >3cm Neck ROM: Full Heart: rrr Lungs: cta Assessment and Plan Assessment Anesthesia Assessment: Anesthesia Plan Discussed and Chart Reviewed Final Anesthetic Review Family History of Problems with Anesthesia: No History of Problems with Anesthesia: No NPO: Yes ASA Class: III Final Preanesthetic Review: No Changes in Pt Med Stat, Meds/Allgs Chart Reviewed and Consent Obtained/Reviewed Patient Risk: Intermediate Procedure Risk: Intermediate Anesthetic Plan Anesthetic Plan: GA Disposition: Standard PACU
--- NOTE | 2023-11-20 07:18 | MHC.SHP ---
Pre-Procedural Eval Section A - 24 Hr Update-Section A only Date of Service: 11/20/23 The patient is an INPATIENT: Yes Changes since office visit: No Cold of Flu in the past 2 weeks, No New Medical Problems, No Changes in Medication and No Patient answered all questions The patient has been examined within 24 hours of the surgical procedure. The History & Physical has been completed within 30 days and I have reviewed it.: Yes Section B - Complete if H&P > 30 days Chief Complaint: Catatonia Details of Present Illness: Severely psychotic with catatonia, poor historian Relevant Family History (Specify if Yes): Yes Relevant Social History: None Present Medications: see Short Stay Collaborative assessment Medical History: No relevant PMH History of Previous Operations: No relevant previous surgery Allergies: Allergies Allergy/AdvReac Type Severity Reaction Status Date / Time haloperidol AdvReac EPS Verified 11/15/23 12:43 metoprolol AdvReac Diarrhea Verified 10/07/23 23:43 Review of Systems Sugical H&P ROS: Negative: Constitution, Cardiovascular, Respiratory, Neurological, Hem-Onc, Allergic/Immunologic, Gastrointestinal, Genitourinary, Musculoskeletal, Integumentary, Endocrine and Eyes/Ears/Nose/Throat and Yes, Specify: Psychiatric (delayed responses, psychomotor retardation) Exam Surgical H&P Exam: Normal: HEENT, Normal: Heart, Normal: Lungs, Normal: Extremities, Normal: Abdomen, Normal: Skin and Normal: Neurological Plan Diagnosis/Plan: Unchanged I have reviewed the history and physical and performed a pertinent physical examination on my patient. No changes have occurred unless specified. Time Spent With Patient Time: Total time managing care of this patient today __20__ minutes.
--- NOTE | 2023-11-20 07:41 | HO.ECTPROC ---
ECT Procedure Note Diagnosis/Treatment Date of Service: 11/20/23 Diagnosis: Catatonia Current Treatment Number: 1 Treatment: Series Interval Clinical Notes: The patient is severely impaired with bradiipsychia, delayed responses, psychomotor retardation and blunted affect, court order ECT. Flumazenil and regular sedation done withouth problems but when Etomidate was pushed and she was unconscious, her BP and pulse was high, needed Esmolol 1 dose of [address] done with right unilateral, 0.25 80%. She had a very long seizure, we pushed Ativan 2 mg right after she stopped the seizure by herself. Woke up well but slightly confused. Time: Total time managing care of this patient today __30__ minutes. ECT Settings Device: THYMATRON DGx Electrode Placement: Right Unilateral Program/Pulse Width: 0.25 Energy Percent: 80 Seizure Duration By EEG (in seconds): 140 By Motor Observation (in seconds): 0 Medications Administration General Anesthetic: Etomidate Muscle Relaxant: Succinylcholine Ancillary Medications Analgesics: Torodol - Pre ECT Anti-emetics: Zofran - Pre ECT Cardiovascular Medications: Esmolol (10 mg right after sedation) Airway Management Airway Management: Bag Mask Ventilation Treatment Recommendations Electrode Placement: Right Unilateral Program/Pulse Width: 0.25 Energy Percent: 50 Notes: She needs a lower stimuli on her next ECT. Pt Tolerated Procedure w/o Issue: Yes
[2023-11-20] MEDS: LORazepam 2 MG/ML VIAL IVPUSH (08:15)
[2023-11-20] MEDS: ondansetron HCL 4 MG/2 ML VIAL IVPUSH (08:31)
[2023-11-20] MEDS: LORazepam 1 MG TABLET PO ×3 (09:57→22:22)
[2023-11-20] MEDS: ARIPiprazole 5 MG TABLET PO ×3 (09:57→22:21)
[2023-11-20] MEDS: Ondansetron ODT 4 MG TAB.RAPDIS TRANSLINGU (13:16)
--- NOTE | 2023-11-20 18:35 | P.PNPSI_ITS ---
Subjective Subjective Date of Service: 11/20/23 Reason For Visit: Catatonia Interim History: Met with patient; discussed with team Discussed case with Dr. Ackerman who said patient had adequate seizure today however recommends lowering house with 2.25 and Shravan to 50% Patient disorganized, and says she is tired, sleeping much of the day. Mental Status Exam Mental Status Exam Narrative: Pt is alert and oriented; behavior is disorganized; patient is not in distress; dressed in hospitall attire disheveled; mood is described as anxious and affect blunted; eye contact limited; psychomotor retardation present; Speech is impoverished and mostly mute; otherwise slow, soft; Thought process distracted; at times can be goal oriented; Thought content is on delusional, paranoid fears; denies any SI/HI. AH remains; Patients insight and judgment impaired. Diagnostics Vital Signs (24Hr): Vital Signs - 24 hr 11/19/23 19:36 11/20/23 05:33 11/20/23 06:47 Temperature 98.2 F 97.9 F 97.6 F Pulse Rate 93 106 H 92 Respiratory Rate 16 16 20 Blood Pressure 118/69 120/79 105/69 Pulse Oximetry 97 97 97 Oxygen Delivery Method Room Air Room Air Oxygen Flow Rate 11/20/23 07:47 11/20/23 07:52 11/20/23 07:57 Temperature 97.4 F Pulse Rate 87 88 93 Respiratory Rate 16 17 18 Blood Pressure 128/92 H 130/86 150/76 H Pulse Oximetry 96 92 94 Oxygen Delivery Method Nasal Cannula with ETCO2 Room Air Room Air Oxygen Flow Rate 2 11/20/23 08:02 11/20/23 08:17 11/20/23 08:32 Temperature 97.4 F Pulse Rate 111 H 91 86 Respiratory Rate 18 17 17 Blood Pressure 111/65 118/75 114/65 Pulse Oximetry 94 94 96 Oxygen Delivery Method Room Air Room Air Room Air Oxygen Flow Rate 11/20/23 09:08 11/20/23 14:44 11/20/23 16:20 Temperature 98.2 F 99.1 F 98.7 F Pulse Rate 108 H 107 H 112 H Respiratory Rate 17 20 16 Blood Pressure 145/90 H 117/63 129/79 Pulse Oximetry 98 98 96 Oxygen Delivery Method Room Air Room Air Oxygen Flow Rate Labs 11/16/23 19:38 11/17/23 07:27 Medications Medications Current Medications Acetaminophen (Acetaminophen 325 Mg Tablet) 650 mg PO Q6H PRN PRN Reason: Headache/Pain Mild Scale (1-3) Al Hydroxide/Mg Hydroxide (Magnesium Hydrox/Alum Hydrox 30 Ml Oral.Susp) 30 ml PO Q6H PRN PRN Reason: Heartburn/Nausea Aripiprazole (Aripiprazole 5 Mg Tablet) 5 mg PO TID [facility] Last Admin: 11/20/23 15:43 Dose: 5 mg Hydroxyzine HCl (Hydroxyzine Hcl 25 Mg Tablet) 25 mg PO Q6H PRN PRN Reason: Anxiety Last Admin: 11/16/23 14:36 Dose: 25 mg Lorazepam (Lorazepam 1 Mg Tablet) 1 mg PO TID [facility] Last Admin: 11/20/23 15:43 Dose: 1 mg Lorazepam (Lorazepam 2 Mg/Ml Vial) 2 mg IM DAILY PRN PRN Reason: 30 min prior to ECT Last Admin: 11/20/23 05:49 Dose: 2 mg Magnesium Hydroxide (Milk Of Magnesia 30 Ml Oral.Susp) 30 ml PO DAILY PRN PRN Reason: Constipation Ondansetron HCl (Ondansetron Odt 4 Mg Tab.Rapdis) 4 mg TRANSLINGU Q6H PRN PRN Reason: Nausea and Vomiting Last Admin: 11/20/23 13:16 Dose: 4 mg Trazodone HCl (Trazodone Hcl 50 Mg Tablet) 50 mg PO BEDTIME MRX1 PRN PRN Reason: Insomnia Last Admin: 11/17/23 21:20 Dose: 50 mg Allergies Allergies Allergy/AdvReac Type Severity Reaction Status Date / Time haloperidol AdvReac EPS Verified 11/15/23 12:43 metoprolol AdvReac Diarrhea Verified 10/07/23 23:43 Assessment & Plan Assessment & Plan (1) Schizoaffective disorder: Status: Acute Code(s): F25.9 - Schizoaffective disorder, unspecified (2) 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 11/17 Patient transferred back to psychiatric unit from medical floor. She remains floridly psychotic, with auditory hallucinations that say mean things, paranoid delusions, disorganized, needing one-to-one to guide her around the unit and attend to all ADLs. Tomato Grader consulted with Dr. Ackerman who met with patient on the unit with video games storywriter and agreed that patient will do best to start ECT as soon as possible. Discussed medication regimen going forward with which he agrees; discussed case with Michelle Gary, hospitalist LAMINE who says she is cleared for ECT and will put in note saying so. Impression: Patient is floridly psychotic and delusional, hardly eating, with very disorganized behavior requiring one-to-one to walk on the unit let alone attend ADLs. Thus far medication trials have been ineffective; she has catatonic like features and a psychotic delirium for which the treatment is ECT which is included in substituted judgment. Will restart Abilify since it may have helped a little however will not have an IM backup if she refuses since it is unclear if Abilify did actually help and less clear that an IM of another antipsychotic will help at all; will continue with the Ativan however will not have an IM backup for similar reasons hospital course: 11/18 pt remains delusional w/ AH; says she broke the law...reports AH. video games storywriter discussed ECT with her and she says she wants it since it may take away the AH. Eat some food which was encouraging; took some meds but then spit it out 11/19 disorganized and sleeping post ECT Discussed case with outpatient provider Radha Chase who reported that over the past year she started to suspect patient was possibly having hypomanic episodes; she listed various medications that were tried to help with depression anxiety but to little avail. She says at baseline patient is organized, logical clear and friendly PLAN: Section 8/8b 1:1 for fall risk and disorganized ECT #2 on 11/21 (COURT ORDERED with substituted judgment; patient can not refuse) -npo -give Ativan 2mg IM prior continue abilify 5mg TID (will hold off w/ IM back up for now) continue ativan 1mg TID (will hold off w/ IM back up for now) DC Olanzapine Medication trials: Trileptal: drowsy Depakote: nausea Risperdal Zyprexa: Tachycardic Abilify: Hypotensive Caplyta Vraylar Lamictal: Rash Topamax: No help Zoloft, Prozac, Effexor, Wellbutrin, Cymbalta, BuSpar, Viibryd, Ovelty ? (combination of cough syrup ingredient plus Wellbutrin) Patient educated on: diagnosis and ECT Informed Consent: does not understand Reason for continued inpatient stay Substantial Risk for: inability to function Time Spent With Patient Time: Total time managing care of this patient today ____ minutes.
[2023-11-20] MEDS: hydrOXYzine HCL 25 MG TABLET PO (18:48)
[2023-11-21 06:00] VITALS: BP 138/86; PULSE 126; RESP 17; TEMP 36.9; O2SAT 97
[2023-11-21] MEDS: LORazepam 1 MG TABLET PO ×3 (08:47→20:59)
[2023-11-21] MEDS: ARIPiprazole 5 MG TABLET PO ×3 (09:17→20:59)
[2023-11-21 10:04] LABS: COVID-19 Test Negative (Negative); IDNOW Serial# 08D9AD1C
[2023-11-21] MEDS: hydrOXYzine HCL 25 MG TABLET PO (17:57)
[2023-11-21 18:00] VITALS: BP 147/84; PULSE 153; TEMP 36.8; O2SAT 94
--- NOTE | 2023-11-21 22:28 | P.PNPSI_ITS ---
Subjective Subjective Date of Service: 11/21/23 Reason For Visit: Catatonia Interim History: met with patient; discussed with team same presentation, though eating a little more; talking a little more taking medication asks if she can to go treatment meaning ECT, but accepts it's scheduled for tomorrow pt asking television script writer who , how many people ...when explained that no one that staff aware of, pt said you're lying Mental Status Exam Mental Status Exam Narrative: Pt is alert and oriented; behavior is disorganized; patient is not in distress; dressed in hospitall attire disheveled; mood is described as anxious and affect blunted; eye contact limited; psychomotor retardation present; Speech is impoverished and mostly mute; otherwise slow, soft; Thought process distracted; at times can be goal oriented; Thought content is on delusional, paranoid fears; denies any SI/HI. AH remains; Patients insight and judgment impaired. Diagnostics Vital Signs (24Hr): Vital Signs - 24 hr 11/21/23 06:00 11/21/23 18:00 Temperature 98.5 F 98.2 F Pulse Rate 126 H 153 H Respiratory Rate 17 Blood Pressure 138/86 147/84 H Pulse Oximetry 97 94 Oxygen Delivery Method Room Air Room Air Labs 11/16/23 19:38 11/17/23 07:27 Labs: Laboratory Results - last 48 hr 11/21/23 09:29 COVID-19 ([facility]) Negative COVID-19 Clin Com See Note Medications Medications Current Medications Acetaminophen (Acetaminophen 325 Mg Tablet) 650 mg PO Q6H PRN PRN Reason: Headache/Pain Mild Scale (1-3) Al Hydroxide/Mg Hydroxide (Magnesium Hydrox/Alum Hydrox 30 Ml Oral.Susp) 30 ml PO Q6H PRN PRN Reason: Heartburn/Nausea Aripiprazole (Aripiprazole 5 Mg Tablet) 5 mg PO TID [facility] Last Admin: 11/21/23 20:59 Dose: 5 mg Hydroxyzine HCl (Hydroxyzine Hcl 25 Mg Tablet) 25 mg PO Q6H PRN PRN Reason: Anxiety Last Admin: 11/21/23 17:57 Dose: 25 mg Lorazepam (Lorazepam 1 Mg Tablet) 1 mg PO TID [facility] Last Admin: 11/21/23 20:59 Dose: 1 mg Lorazepam (Lorazepam 2 Mg/Ml Vial) 2 mg IM DAILY PRN PRN Reason: 30 min prior to ECT Last Admin: 11/20/23 05:49 Dose: 2 mg Magnesium Hydroxide (Milk Of Magnesia 30 Ml Oral.Susp) 30 ml PO DAILY PRN PRN Reason: Constipation Ondansetron HCl (Ondansetron Odt 4 Mg Tab.Rapdis) 4 mg TRANSLINGU Q6H PRN PRN Reason: Nausea and Vomiting Last Admin: 11/20/23 13:16 Dose: 4 mg Trazodone HCl (Trazodone Hcl 50 Mg Tablet) 50 mg PO BEDTIME MRX1 PRN PRN Reason: Insomnia Last Admin: 11/17/23 21:20 Dose: 50 mg Allergies Allergies Allergy/AdvReac Type Severity Reaction Status Date / Time haloperidol AdvReac EPS Verified 11/15/23 12:43 metoprolol AdvReac Diarrhea Verified 10/07/23 23:43 Assessment & Plan Assessment & Plan (1) Schizoaffective disorder: Status: Acute Code(s): F25.9 - Schizoaffective disorder, unspecified (2) 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 11/17 Patient transferred back to psychiatric unit from medical floor. She remains floridly psychotic, with auditory hallucinations that say mean things, paranoid delusions, disorganized, needing one-to-one to guide her around the unit and attend to all ADLs. Rn Examiner consulted with Dr. Ackerman who met with patient on the unit with television script writer and agreed that patient will do best to start ECT as soon as possible. Discussed medication regimen going forward with which he agrees; discussed case with Michelle Gary, hospitalist LAMINE who says she is cleared for ECT and will put in note saying so. Impression: Patient is floridly psychotic and delusional, hardly eating, with very disorganized behavior requiring one-to-one to walk on the unit let alone attend ADLs. Thus far medication trials have been ineffective; she has catatonic like features and a psychotic delirium for which the treatment is ECT which is included in substituted judgment. Will restart Abilify since it may have helped a little however will not have an IM backup if she refuses since it is unclear if Abilify did actually help and less clear that an IM of another antipsychotic will help at all; will continue with the Ativan however will not have an IM backup for similar reasons hospital course: 11/18 pt remains delusional w/ AH; says she broke the law...reports AH. television script writer discussed ECT with her and she says she wants it since it may take away the AH. Eat some food which was encouraging; took some meds but then spit it out 11/19 disorganized and sleeping post ECT Discussed case with outpatient provider Radha Chase who reported that over the past year she started to suspect patient was possibly having hypomanic episodes; she listed various medications that were tried to help with depression anxiety but to little avail. She says at baseline patient is organized, logical clear and friendly 11/20 remains disorganized, psychotic, catatonic however is talking a little more and eating on her own more -taking medications w/out spitting out PLAN: Section 8/8b 1:1 for fall risk and disorganized ECT #2 on 11/21 (COURT ORDERED with substituted judgment; patient can not refuse) -npo -give Ativan 2mg IM prior continue abilify 5mg TID (will hold off w/ IM back up for now) continue ativan 1mg TID (will hold off w/ IM back up for now) DC Olanzapine Medication trials: Trileptal: drowsy Depakote: nausea Risperdal Zyprexa: Tachycardic Abilify: Hypotensive Caplyta Vraylar Lamictal: Rash Topamax: No help Zoloft, Prozac, Effexor, Wellbutrin, Cymbalta, BuSpar, Viibryd, Ovelty ? (combination of cough syrup ingredient plus Wellbutrin) Patient educated on: diagnosis, medication risk/benefits and ECT Informed Consent: understands, does not understand and further education needed Reason for continued inpatient stay Substantial Risk for: inability to function Time Spent With Patient Time: Total time managing care of this patient today ____ minutes.
[2023-11-22] VITALS (11 sets, daily range): BP systolic 108–144; BP diastolic 61–96; PULSE 101–131; RESP 16–20; TEMP 36.2–37.1; O2SAT 94–100
[2023-11-22] MEDS: LORazepam 1 MG TABLET PO ×2 (09:06→21:28)
[2023-11-22] MEDS: ARIPiprazole 5 MG TABLET PO ×2 (09:06→21:28)
--- NOTE | 2023-11-22 09:34 | PC.NURSE ---
Dr. Smith aware that pt received her 0900 dose of Lorazepam this morning. No further orders given. Due to patient having had 3 bites of her sandwich, she will not go for ECT until around 3:30 pm this afternoon.
--- NOTE | 2023-11-22 15:11 | MHC.SHP ---
Pre-Procedural Eval Section A - 24 Hr Update-Section A only Date of Service: 11/22/23 The patient is an INPATIENT: Yes Changes since office visit: No Cold of Flu in the past 2 weeks, No New Medical Problems, No Changes in Medication and No Patient answered all questions The patient has been examined within 24 hours of the surgical procedure. The History & Physical has been completed within 30 days and I have reviewed it.: Yes Section B - Complete if H&P > 30 days Chief Complaint: Catatonia Details of Present Illness: remains w/ catatonic symptoms, disorganized and w/ AH, paranoid delusions Relevant Family History (Specify if Yes): Yes Medical History: No relevant PMH History of Previous Operations: No relevant previous surgery Allergies: Allergies Allergy/AdvReac Type Severity Reaction Status Date / Time haloperidol AdvReac EPS Verified 11/15/23 12:43 metoprolol AdvReac Diarrhea Verified 10/07/23 23:43 Review of Systems Sugical H&P ROS: Negative: Psychiatric Exam Surgical H&P Exam: Normal: HEENT and Normal: Neurological Plan Diagnosis/Plan: Unchanged I have reviewed the history and physical and performed a pertinent physical examination on my patient. No changes have occurred unless specified. Time Spent With Patient Time: Total time managing care of this patient today ____ minutes.
--- NOTE | 2023-11-22 15:12 | HO.ANESPROP2 ---
[facility] Active Problems Active Problems: All Active Problems Catatonia (Acute) Schizoaffective disorder (Acute) Syncope (Acute) Intellectual disability (Acute) Psychosis (Acute) Major depressive disorder, recurrent episode, severe, with psychosis (Chronic) Major depression (Acute) Auditory hallucinations (Acute) Suicidal ideation (Acute) COVID-19 (Acute) Contraception management (Acute) Vitamin D deficiency (Acute) Vitamin B12 deficiency (Acute) Uses control (Acute) Orthostatic hypotension (Acute) Supraventricular tachycardia by ECG (Acute) Major depression in partial remission (Acute) Left ovarian cyst (Acute) Migraine (Acute) Past Medical History Medical History Schizoaffective disorder Intellectual disability Contraception management Vitamin D deficiency Vitamin B12 deficiency Uses control Hx of ovarian cyst Epigastric abdominal pain Orthostatic hypotension Supraventricular tachycardia by ECG Major depression in partial remission Left ovarian cyst Migraine Family History Family History Mother Bipolar disorder Mental health disorder Family history of problems with anesthesia: No Surgical History Surgical History H/O removal of cyst History of Problems with Anesthesia: No Social History Social History Household Members: Other Household Members Other:: Pt unable to answer questions d/t mental status. Housing: Other Housing Other:: Pt unable to answer questions d/t mental status. Alcohol intake: never Comment: Pt utilizing wheelchair with staff assistance. Patient Tobacco Use Status: Never used Tobacco e-Cigarette/Vaping Use: Never Used Second Hand Smoke Exposure: No Use of substances other than those prescribed or required for medical reasons: Unknown Substance Use Type: Unknown Last Used Substance: Unknown Last Used Substance Other:: Pt unable to answer questions d/t mental status. Currently Displaying Signs/Symptoms of Drug Intoxication Withdrawal: No Other Past Substance Use Problem:: Pt unable to answer questions d/t mental status. Advance Directives: No Advance Directives Information Provided: Yes Do you have thoughts of harming others: None Do you have a plan to hurt others: No Plan How much weight loss: Unsure Patient : No : No Poor oral hygiene: Yes service: No Current occupational status: unemployed Sexual orientation: Unable to collect Cognitive needs: No Hearing needs: No Vision needs: No Meds Allergies Allergy/AdvReac Type Severity Reaction Status Date / Time haloperidol AdvReac EPS Verified 11/15/23 12:43 metoprolol AdvReac Diarrhea Verified 10/07/23 23:43 Active Medications: Current Medications Acetaminophen (Acetaminophen 325 Mg Tablet) 650 mg PO Q6H PRN PRN Reason: Headache/Pain Mild Scale (1-3) Al Hydroxide/Mg Hydroxide (Magnesium Hydrox/Alum Hydrox 30 Ml Oral.Susp) 30 ml PO Q6H PRN PRN Reason: Heartburn/Nausea Aripiprazole (Aripiprazole 5 Mg Tablet) 5 mg PO TID [facility] Last Admin: 11/22/23 09:06 Dose: 5 mg Hydroxyzine HCl (Hydroxyzine Hcl 25 Mg Tablet) 25 mg PO Q6H PRN PRN Reason: Anxiety Last Admin: 11/21/23 17:57 Dose: 25 mg Lorazepam (Lorazepam 1 Mg Tablet) 1 mg PO TID [facility] Last Admin: 11/22/23 09:06 Dose: 1 mg Lorazepam (Lorazepam 2 Mg/Ml Vial) 2 mg IM DAILY PRN PRN Reason: 30 min prior to ECT Last Admin: 11/20/23 05:49 Dose: 2 mg Magnesium Hydroxide (Milk Of Magnesia 30 Ml Oral.Susp) 30 ml PO DAILY PRN PRN Reason: Constipation Ondansetron HCl (Ondansetron Odt 4 Mg Tab.Rapdis) 4 mg TRANSLINGU Q6H PRN PRN Reason: Nausea and Vomiting Last Admin: 11/20/23 13:16 Dose: 4 mg Trazodone HCl (Trazodone Hcl 50 Mg Tablet) 50 mg PO BEDTIME MRX1 PRN PRN Reason: Insomnia Last Admin: 11/17/23 21:20 Dose: 50 mg Exam Height,Weight and Vital Signs: Weight 63 kg Last Vital Signs Temp 97.7 F 11/22/23 15:06 Pulse 131 H 11/22/23 15:06 Resp 18 11/22/23 15:06 BP 115/75 11/22/23 15:06 Pulse Ox 99 11/22/23 15:06 O2 Del Method Room Air 11/22/23 08:00 O2 Flow Rate 2 11/20/23 07:47 Pertinent Lab Results Pertinent Lab Results: Laboratory Tests 11/16/23 11/17/23 11/17/23 19:38 07:27 12:37 WBC 7.0 RBC 4.77 Hgb 12.7 Hct 38.7 MCV 81.1 MCH 26.6 L MCHC 32.8 RDW 16.2 H Plt Count 393 MPV 10.6 Immature Gran % (Auto) 0.3 Neut % (Auto) 61.5 Lymph % (Auto) 22.9 Glynn % (Auto) 11.4 H Eos % (Auto) 3.3 Baso % (Auto) 0.6 Lymph # (Auto) 1.6 Glynn # (Auto) 0.8 Eos # (Auto) 0.2 Baso # (Auto) 0.0 Abs Immat Gran (auto) 0.02 Absolute Neuts (auto) 4.3 Absolute Nucleated RBC 0.000 Nucleated RBC % (auto) 0.0 Sodium 142 141 Potassium 3.7 3.8 Chloride 109 H 110 H Carbon Dioxide 26 20 L Anion Gap 11 L 15 BUN < 3 L 3 L Creatinine 0.57 0.57 Estim Creat Clear Calc TNP TNP Estimated GFR > 60 > 60 Random Glucose 94 Fasting Glucose 74 Calcium 9.2 D 9.4 Total Bilirubin 0.4 AST 30 ALT 36 H Alkaline Phosphatase 72 Total Protein 6.9 Albumin 3.9 Triglycerides 85 Cholesterol 142 LDL Cholesterol, Calc 73 HDL Cholesterol 52 Urine Color Yellow Urine Appearance Cloudy Urine pH 8.5 Ur Specific [place] 1.015 Urine Protein Negative Urine Glucose (UA) Negative Urine Ketones Negative Urine Blood Negative Urine Nitrite Negative Ur Leukocyte Esterase Moderate (2+) H Urine RBC 0-2 Urine WBC 6-10 H Ur Squamous Epith Cells 11-20 Other Crystals Present Urine Bacteria 2+ Hyaline Casts 0-2 COVID-19 ([facility]) COVID-19 Clin Com 11/21/23 09:29 WBC RBC Hgb Hct MCV MCH MCHC RDW Plt Count MPV Immature Gran % (Auto) Neut % (Auto) Lymph % (Auto) Glynn % (Auto) Eos % (Auto) Baso % (Auto) Lymph # (Auto) Glynn # (Auto) Eos # (Auto) Baso # (Auto) Abs Immat Gran (auto) Absolute Neuts (auto) Absolute Nucleated RBC Nucleated RBC % (auto) Sodium Potassium Chloride Carbon Dioxide Anion Gap BUN Creatinine Estim Creat Clear Calc Estimated GFR Random Glucose Fasting Glucose Calcium Total Bilirubin AST ALT Alkaline Phosphatase Total Protein Albumin Triglycerides Cholesterol LDL Cholesterol, Calc HDL Cholesterol Urine Color Urine Appearance Urine pH Ur Specific [place] Urine Protein Urine Glucose (UA) Urine Ketones Urine Blood Urine Nitrite Ur Leukocyte Esterase Urine RBC Urine WBC Ur Squamous Epith Cells Other Crystals Urine Bacteria Hyaline Casts COVID-19 ([facility]) Negative COVID-19 Clin Com See Note Airway Mallampati Class: II TM Dist: >3cm Neck ROM: Full Loose/Missing/Broken Teeth: No Heart: RRR Lungs: CTA Assessment and Plan Assessment Anesthesia Assessment: Anesthesia Plan Discussed and Chart Reviewed Final Anesthetic Review Family History of Problems with Anesthesia: No History of Problems with Anesthesia: No NPO: Yes ASA Class: II Final Preanesthetic Review: Meds/Allgs Chart Reviewed, Consent Obtained/Reviewed and Anes Risks/Benef Reviewed Patient Risk: Low Procedure Risk: Intermediate Anesthetic Plan Anesthetic Plan: GA Disposition: Standard PACU
--- NOTE | 2023-11-22 15:16 | HO.ECTPROC ---
ECT Procedure Note Diagnosis/Treatment Date of Service: 11/22/23 Diagnosis: Bipolar disorder and Catatonia Previous ECT Date: 11/20/23 Current Treatment Number: 2 Treatment: Series Interval Clinical Notes: remains disorganized, catatonic, psychotic Time: Total time managing care of this patient today ____ minutes. ECT Settings Device: THYMATRON DGx Electrode Placement: Right Unilateral Program/Pulse Width: 0.25 Energy Percent: 50 Seizure Duration By EEG (in seconds): 120 By Motor Observation (in seconds): 28 Medications Administration General Anesthetic: Etomidate Muscle Relaxant: Succinylcholine Ancillary Medications Analgesics: Torodol - Pre ECT Anti-emetics: Zofran - Pre ECT Cardiovascular Medications: Esmolol (10mg pre-ect once sedated) Miscillaneous Medications: Flumazenil (.2mg pre ect (pt had ativan 1mg at 0900)) and Other (Versed 2mg post ECT) Airway Management Airway Management: Bag Mask Ventilation Treatment Recommendations No Changes Recommended: No change Electrode Placement: Right Unilateral Program/Pulse Width: 0.25 Energy Percent: 50 Notes: -pt had seizure for 120seconds which ended on it's own -received Versed 2mg post ECT -Consider having Propofol available if needed to end seizure -Consider NOT giving Flumazenil pre-ect Pt Tolerated Procedure w/o Issue: No
--- NOTE | 2023-11-22 16:31 | P.PNPSI_ITS ---
Subjective Subjective Date of Service: 11/22/23 Reason For Visit: Catatonia Interim History: met with pt; discussed with team; talked w/ mother; administered ECT pt asked if she can go to treatment and accepts waiting, even w/out food. Pt remains disorganized, delusional, asking about her dixon...is it alright? asking if her mother is alright? however, pt talking more and now eating more regularly Mental Status Exam Mental Status Exam Narrative: Pt is alert and oriented; behavior is disorganized; patient is not in distress; dressed in hospitall attire disheveled; mood is described as anxious and affect blunted; eye contact limited; psychomotor retardation present; Speech is impoverished and mostly mute; otherwise slow, soft; Thought process distracted; at times can be goal oriented; Thought content is on delusional, paranoid fears; denies any SI/HI. AH remains; Patients insight and judgment impaired. Diagnostics Vital Signs (24Hr): Vital Signs - 24 hr 11/21/23 18:00 11/22/23 08:00 11/22/23 15:00 Temperature 98.2 F 98.2 F 97.7 F Pulse Rate 153 H 101 H 131 H Respiratory Rate 18 20 Blood Pressure 147/84 H 128/70 115/75 Pulse Oximetry 94 99 99 Oxygen Delivery Method Room Air Room Air Oxygen Flow Rate 11/22/23 15:26 11/22/23 16:10 11/22/23 16:15 Temperature 97.2 F 98.2 F Pulse Rate 102 H 103 H 113 H Respiratory Rate 18 18 18 Blood Pressure 108/77 130/74 123/71 Pulse Oximetry 99 98 99 Oxygen Delivery Method Room Air Nasal Cannula Room Air Oxygen Flow Rate 2 11/22/23 16:20 Temperature Pulse Rate 110 H Respiratory Rate 18 Blood Pressure 117/71 Pulse Oximetry 98 Oxygen Delivery Method Room Air Oxygen Flow Rate Labs 11/16/23 19:38 11/17/23 07:27 Labs: Laboratory Results - last 48 hr 11/21/23 09:29 COVID-19 ([facility]) Negative COVID-19 Clin Com See Note Medications Medications Current Medications Acetaminophen (Acetaminophen 325 Mg Tablet) 650 mg PO Q6H PRN PRN Reason: Headache/Pain Mild Scale (1-3) Al Hydroxide/Mg Hydroxide (Magnesium Hydrox/Alum Hydrox 30 Ml Oral.Susp) 30 ml PO Q6H PRN PRN Reason: Heartburn/Nausea Aripiprazole (Aripiprazole 5 Mg Tablet) 5 mg PO TID [facility] Last Admin: 11/22/23 09:06 Dose: 5 mg Hydroxyzine HCl (Hydroxyzine Hcl 25 Mg Tablet) 25 mg PO Q6H PRN PRN Reason: Anxiety Last Admin: 11/21/23 17:57 Dose: 25 mg Lorazepam (Lorazepam 1 Mg Tablet) 1 mg PO TID [facility] Last Admin: 11/22/23 09:06 Dose: 1 mg Lorazepam (Lorazepam 2 Mg/Ml Vial) 2 mg IM DAILY PRN PRN Reason: 30 min prior to ECT Last Admin: 11/20/23 05:49 Dose: 2 mg Magnesium Hydroxide (Milk Of Magnesia 30 Ml Oral.Susp) 30 ml PO DAILY PRN PRN Reason: Constipation Ondansetron HCl (Ondansetron Odt 4 Mg Tab.Rapdis) 4 mg TRANSLINGU Q6H PRN PRN Reason: Nausea and Vomiting Last Admin: 11/20/23 13:16 Dose: 4 mg Trazodone HCl (Trazodone Hcl 50 Mg Tablet) 50 mg PO BEDTIME MRX1 PRN PRN Reason: Insomnia Last Admin: 11/17/23 21:20 Dose: 50 mg Allergies Allergies Allergy/AdvReac Type Severity Reaction Status Date / Time haloperidol AdvReac EPS Verified 11/15/23 12:43 metoprolol AdvReac Diarrhea Verified 10/07/23 23:43 Assessment & Plan Assessment & Plan (1) Schizoaffective disorder: Status: Acute Code(s): F25.9 - Schizoaffective disorder, unspecified (2) 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 11/17 Patient transferred back to psychiatric unit from medical floor. She remains floridly psychotic, with auditory hallucinations that say mean things, paranoid delusions, disorganized, needing one-to-one to guide her around the unit and attend to all ADLs. Driller Multiple Spindle consulted with Dr. Ackerman who met with patient on the unit with commercial insurance underwriter and agreed that patient will do best to start ECT as soon as possible. Discussed medication regimen going forward with which he agrees; discussed case with Michelle Gary hospitalist LAMINE who says she is cleared for ECT and will put in note saying so. Impression: Patient is floridly psychotic and delusional, hardly eating, with very disorganized behavior requiring one-to-one to walk on the unit let alone attend ADLs. Thus far medication trials have been ineffective; she has catatonic like features and a psychotic delirium for which the treatment is ECT which is included in substituted judgment. Will restart Abilify since it may have helped a little however will not have an IM backup if she refuses since it is unclear if Abilify did actually help and less clear that an IM of another antipsychotic will help at all; will continue with the Ativan however will not have an IM backup for similar reasons hospital course: 11/18 pt remains delusional w/ AH; says she broke the law...reports AH. commercial insurance underwriter discussed ECT with her and she says she wants it since it may take away the AH. Eat some food which was encouraging; took some meds but then spit it out 11/19 disorganized and sleeping post ECT Discussed case with outpatient provider Radha Chase who reported that over the past year she started to suspect patient was possibly having hypomanic episodes; she listed various medications that were tried to help with depression anxiety but to little avail. She says at baseline patient is organized, logical clear and friendly 11/20 remains disorganized, psychotic, catatonic however is talking a little more and eating on her own more -taking medications w/out spitting out PLAN: Section 8/8b q5's; pt no longer fall risk ECT #3 on 11/24 (COURT ORDERED with substituted judgment; patient can not refuse) -npo continue abilify 5mg TID (will hold off w/ IM back up for now) continue ativan 1mg TID (will hold off w/ IM back up for now) DC Olanzapine Medication trials: Trileptal: drowsy Depakote: nausea Risperdal Zyprexa: Tachycardic Abilify: Hypotensive Caplyta Vraylar Lamictal: Rash Topamax: No help Zoloft, Prozac, Effexor, Wellbutrin, Cymbalta, BuSpar, Viibryd, Ovelty ? (combination of cough syrup ingredient plus Wellbutrin) Patient educated on: diagnosis, medication risk/benefits and ECT Informed Consent: understands, does not understand and further education needed Reason for continued inpatient stay Substantial Risk for: inability to function Time Spent With Patient Time: Total time managing care of this patient today ____ minutes.
[2023-11-22] MEDS: Ondansetron ODT 4 MG TAB.RAPDIS TRANSLINGU (16:44)
[2023-11-23 08:10] VITALS: BP 110/75; PULSE 109; RESP 18; TEMP 536.9; TEMP 998.4; O2SAT 100
[2023-11-23] MEDS: ARIPiprazole 5 MG TABLET PO ×3 (08:32→20:44)
[2023-11-23] MEDS: LORazepam 1 MG TABLET PO ×3 (08:32→20:44)
[2023-11-23] MEDS: hydrOXYzine HCL 25 MG TABLET PO ×2 (12:17→18:03)
--- NOTE | 2023-11-23 12:40 | HO.PSYCHPN ---
Subjective Subjective Date of Service: 11/23/23 Reason For Visit: Catatonia Interim History: Pt seen,discussed with team, plan of care reviewed. Preeti is visable in the milieu, she is interactive, approached team and tw with questions, comments. Appears with significant improvement. She does present with worry and concern about mother, consistently asking where she is and if she is OK Medication Compliance: Yes Side effects from medications: No Attending Groups: Intermittent Review of Systems Acute medical concerns: No Medical Review of Systems: unchanged Review of Systems Review of Systems Yes all other systems are reviewed and are negative Mental Status Exam Mental Status Exam Patient Appearance: Fatigued Patient Orientation: Person and Place Level of Consciousness: Alert Patient Behavior: Appropriate, Dependent, Talkative and Good Eye Contact Mood Description: Apprehensive Affect Description: Apprehensive Patient Cognition Impaired: No Ability to Follow Directions: Good Speech Pattern: Spontaneous Speech and Soft-Spoken Memory Description: Remote Impaired Thought Process: Distracted Thought Content: positive for [place] and positive for Circumstantial Judgement: Fair Diagnostics Vital Signs (24Hr): Vital Signs - 24 hr 11/22/23 15:00 11/22/23 15:26 11/22/23 16:10 Temperature 97.7 F 97.2 F 98.2 F Pulse Rate 131 H 102 H 103 H Respiratory Rate 20 18 18 Blood Pressure 115/75 108/77 130/74 Pulse Oximetry 99 99 98 Oxygen Delivery Method Room Air Nasal Cannula Oxygen Flow Rate 2 11/22/23 16:15 11/22/23 16:20 11/22/23 16:25 Temperature 97.2 F Pulse Rate 113 H 110 H 108 H Respiratory Rate 18 18 18 Blood Pressure 123/71 117/71 123/96 H Pulse Oximetry 99 98 98 Oxygen Delivery Method Room Air Room Air Room Air Oxygen Flow Rate 11/22/23 16:40 11/22/23 16:55 11/22/23 17:31 Temperature 98.7 F Pulse Rate 102 H 113 H 110 H Respiratory Rate 18 18 19 Blood Pressure 129/70 139/80 144/75 H Pulse Oximetry 98 94 99 Oxygen Delivery Method Room Air Room Air Oxygen Flow Rate 11/22/23 18:00 11/23/23 08:10 Temperature 98.8 F 998.4 F H Pulse Rate 115 H 109 H Respiratory Rate 16 18 Blood Pressure 111/61 110/75 Pulse Oximetry 100 100 Oxygen Delivery Method Room Air Room Air Oxygen Flow Rate Labs 11/16/23 19:38 11/17/23 07:27 Medications Medications Current Medications Acetaminophen (Acetaminophen 325 Mg Tablet) 650 mg PO Q6H PRN PRN Reason: Headache/Pain Mild Scale (1-3) Al Hydroxide/Mg Hydroxide (Magnesium Hydrox/Alum Hydrox 30 Ml Oral.Susp) 30 ml PO Q6H PRN PRN Reason: Heartburn/Nausea Aripiprazole (Aripiprazole 5 Mg Tablet) 5 mg PO TID [facility] Last Admin: 11/23/23 08:32 Dose: 5 mg Hydroxyzine HCl (Hydroxyzine Hcl 25 Mg Tablet) 25 mg PO Q6H PRN PRN Reason: Anxiety Last Admin: 11/23/23 12:17 Dose: 25 mg Lorazepam (Lorazepam 1 Mg Tablet) 1 mg PO TID [facility] Last Admin: 11/23/23 08:32 Dose: 1 mg Lorazepam (Lorazepam 2 Mg/Ml Vial) 2 mg IM DAILY PRN PRN Reason: only if refuses ECT Magnesium Hydroxide (Milk Of Magnesia 30 Ml Oral.Susp) 30 ml PO DAILY PRN PRN Reason: Constipation Ondansetron HCl (Ondansetron Odt 4 Mg Tab.Rapdis) 4 mg TRANSLINGU Q6H PRN PRN Reason: Nausea and Vomiting Last Admin: 11/22/23 16:44 Dose: 4 mg Trazodone HCl (Trazodone Hcl 50 Mg Tablet) 50 mg PO BEDTIME MRX1 PRN PRN Reason: Insomnia Last Admin: 11/17/23 21:20 Dose: 50 mg Allergies Allergies Allergy/AdvReac Type Severity Reaction Status Date / Time haloperidol AdvReac EPS Verified 11/15/23 12:43 metoprolol AdvReac Diarrhea Verified 10/07/23 23:43 Assessment & Plan Assessment & Plan (1) Schizoaffective disorder: Status: Acute Code(s): F25.9 - Schizoaffective disorder, unspecified (2) 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 11/17 Patient transferred back to psychiatric unit from medical floor. She remains floridly psychotic, with auditory hallucinations that say mean things, paranoid delusions, disorganized, needing one-to-one to guide her around the unit and attend to all ADLs. Transmission Repairer consulted with Dr. Ackerman who met with patient on the unit with video games storywriter and agreed that patient will do best to start ECT as soon as possible. Discussed medication regimen going forward with which he agrees; discussed case with Michelle Gary, hospitalist LAMINE who says she is cleared for ECT and will put in note saying so. Impression: Patient is floridly psychotic and delusional, hardly eating, with very disorganized behavior requiring one-to-one to walk on the unit let alone attend ADLs. Thus far medication trials have been ineffective; she has catatonic like features and a psychotic delirium for which the treatment is ECT which is included in substituted judgment. Will restart Abilify since it may have helped a little however will not have an IM backup if she refuses since it is unclear if Abilify did actually help and less clear that an IM of another antipsychotic will help at all; will continue with the Ativan however will not have an IM backup for similar reasons hospital course: 11/18 pt remains delusional w/ AH; says she broke the law...reports AH. video games storywriter discussed ECT with her and she says she wants it since it may take away the AH. Eat some food which was encouraging; took some meds but then spit it out 11/19 disorganized and sleeping post ECT Discussed case with outpatient provider Radha Chase who reported that over the past year she started to suspect patient was possibly having hypomanic episodes; she listed various medications that were tried to help with depression anxiety but to little avail. She says at baseline patient is organized, logical clear and friendly 11/20 remains disorganized, psychotic, catatonic however is talking a little more and eating on her own more -taking medications w/out spitting out 11/21 continue tx. PLAN: Section 8/ q5's; pt no longer fall risk ECT #3 on 11/24 (COURT ORDERED with substituted judgment; patient can not refuse) -npo continue abilify 5mg TID (will hold off w/ IM back up for now) continue ativan 1mg TID (will hold off w/ IM back up for now) DC Olanzapine Medication trials: Trileptal: drowsy Depakote: nausea Risperdal Zyprexa: Tachycardic Abilify: Hypotensive Caplyta Vraylar Lamictal: Rash Topamax: No help Zoloft, Prozac, Effexor, Wellbutrin, Cymbalta, BuSpar, Viibryd, Ovelty ? (combination of cough syrup ingredient plus Wellbutrin) Reason for continued inpatient stay Substantial Risk for: rapid decompensation Time Spent With Patient Time: Total time managing care of this patient today ____ minutes.
[2023-11-23 17:51] VITALS: BP 146/93; PULSE 114; RESP 20; TEMP 36.4; O2SAT 100
--- NOTE | 2023-11-24 05:48 | HO.PSYCHPN ---
Subjective Subjective Date of Service: 11/24/23 Reason For Visit: Catatonia Interim History: Pt seen, discussed with team, plan of care reviewed. Mother visited Pt engaged, asking questions, joining discussions, asking about her mother, more attentive to her environment and the milieu. Medication Compliance: Yes Side effects from medications: No Attending Groups: Intermittent Review of Systems Acute medical concerns: No Medical Review of Systems: unchanged Review of Systems Review of Systems Yes all other systems are reviewed and are negative Mental Status Exam Mental Status Exam Patient Appearance: Fatigued Patient Orientation: Person and Place Level of Consciousness: Alert Patient Behavior: Appropriate, Dependent, Talkative and Good Eye Contact Mood Description: Apprehensive Affect Description: Apprehensive Patient Cognition Impaired: No Ability to Follow Directions: Good Speech Pattern: Spontaneous Speech and Soft-Spoken Memory Description: Remote Impaired Thought Process: Distracted Thought Content: positive for [place] and positive for Circumstantial Judgement: Fair Diagnostics Vital Signs (24Hr): Vital Signs - 24 hr 11/23/23 08:10 11/23/23 17:51 Temperature 998.4 F H 97.5 F Pulse Rate 109 H 114 H Respiratory Rate 18 20 Blood Pressure 110/75 146/93 H Pulse Oximetry 100 100 Oxygen Delivery Method Room Air Room Air Labs 11/16/23 19:38 11/17/23 07:27 Medications Medications Current Medications Acetaminophen (Acetaminophen 325 Mg Tablet) 650 mg PO Q6H PRN PRN Reason: Headache/Pain Mild Scale (1-3) Al Hydroxide/Mg Hydroxide (Magnesium Hydrox/Alum Hydrox 30 Ml Oral.Susp) 30 ml PO Q6H PRN PRN Reason: Heartburn/Nausea Aripiprazole (Aripiprazole 5 Mg Tablet) 5 mg PO TID [facility] Last Admin: 11/23/23 20:44 Dose: 5 mg Hydroxyzine HCl (Hydroxyzine Hcl 25 Mg Tablet) 25 mg PO Q6H PRN PRN Reason: Anxiety Last Admin: 11/23/23 18:03 Dose: 25 mg Lorazepam (Lorazepam 1 Mg Tablet) 1 mg PO TID [facility] Last Admin: 11/23/23 20:44 Dose: 1 mg Lorazepam (Lorazepam 2 Mg/Ml Vial) 2 mg IM DAILY PRN PRN Reason: only if refuses ECT Magnesium Hydroxide (Milk Of Magnesia 30 Ml Oral.Susp) 30 ml PO DAILY PRN PRN Reason: Constipation Ondansetron HCl (Ondansetron Odt 4 Mg Tab.Rapdis) 4 mg TRANSLINGU Q6H PRN PRN Reason: Nausea and Vomiting Last Admin: 11/22/23 16:44 Dose: 4 mg Trazodone HCl (Trazodone Hcl 50 Mg Tablet) 50 mg PO BEDTIME MRX1 PRN PRN Reason: Insomnia Last Admin: 11/17/23 21:20 Dose: 50 mg Allergies Allergies Allergy/AdvReac Type Severity Reaction Status Date / Time haloperidol AdvReac EPS Verified 11/15/23 12:43 metoprolol AdvReac Diarrhea Verified 10/07/23 23:43 Assessment & Plan Assessment & Plan (1) Schizoaffective disorder: Status: Acute Code(s): F25.9 - Schizoaffective disorder, unspecified (2) 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 11/17 Patient transferred back to psychiatric unit from medical floor. She remains floridly psychotic, with auditory hallucinations that say mean things, paranoid delusions, disorganized, needing one-to-one to guide her around the unit and attend to all ADLs. Tree Killer consulted with Dr. Ackerman who met with patient on the unit with underwriter and agreed that patient will do best to start ECT as soon as possible. Discussed medication regimen going forward with which he agrees; discussed case with Michelle Gary, hospitalist LAMINE who says she is cleared for ECT and will put in note saying so. Impression: Patient is floridly psychotic and delusional, hardly eating, with very disorganized behavior requiring one-to-one to walk on the unit let alone attend ADLs. Thus far medication trials have been ineffective; she has catatonic like features and a psychotic delirium for which the treatment is ECT which is included in substituted judgment. Will restart Abilify since it may have helped a little however will not have an IM backup if she refuses since it is unclear if Abilify did actually help and less clear that an IM of another antipsychotic will help at all; will continue with the Ativan however will not have an IM backup for similar reasons hospital course: 11/18 pt remains delusional w/ AH; says she broke the law...reports AH. underwriter discussed ECT with her and she says she wants it since it may take away the AH. Eat some food which was encouraging; took some meds but then spit it out 11/19 disorganized and sleeping post ECT Discussed case with outpatient provider Radha Chase who reported that over the past year she started to suspect patient was possibly having hypomanic episodes; she listed various medications that were tried to help with depression anxiety but to little avail. She says at baseline patient is organized, logical clear and friendly 11/20 remains disorganized, psychotic, catatonic however is talking a little more and eating on her own more -taking medications w/out spitting out 11/24/23 continue tx PLAN: Section 8/8b q5's; pt no longer fall risk ECT #3 on 11/24 (COURT ORDERED with substituted judgment; patient can not refuse) -npo continue abilify 5mg TID (will hold off w/ IM back up for now) continue ativan 1mg TID (will hold off w/ IM back up for now) DC Olanzapine Medication trials: Trileptal: drowsy Depakote: nausea Risperdal Zyprexa: Tachycardic Abilify: Hypotensive Caplyta Vraylar Lamictal: Rash Topamax: No help Zoloft, Prozac, Effexor, Wellbutrin, Cymbalta, BuSpar, Viibryd, Ovelty ? (combination of cough syrup ingredient plus Wellbutrin) Reason for continued inpatient stay Substantial Risk for: rapid decompensation Time Spent With Patient Time: Total time managing care of this patient today ____ minutes.
[2023-11-24 08:00] VITALS: BP 115/77; PULSE 113; RESP 18; TEMP 36.6; O2SAT 100
[2023-11-24] MEDS: LORazepam 1 MG TABLET PO ×3 (08:23→20:54)
[2023-11-24] MEDS: ARIPiprazole 5 MG TABLET PO ×3 (08:23→20:54)
[2023-11-24] MEDS: hydrOXYzine HCL 25 MG TABLET PO (10:30)
[2023-11-24 18:00] VITALS: BP 147/87; PULSE 130; RESP 18; TEMP 36.5; O2SAT 100
[2023-11-25] VITALS (9 sets, daily range): BP systolic 99–118; BP diastolic 58–87; PULSE 74–104; RESP 15–21; TEMP 36.4–36.6; O2SAT 97–100
--- NOTE | 2023-11-25 06:51 | HO.ANESPROP2 ---
[facility] Active Problems Active Problems: All Active Problems Catatonia (Acute) Schizoaffective disorder (Acute) Syncope (Acute) Intellectual disability (Acute) Psychosis (Acute) Major depressive disorder, recurrent episode, severe, with psychosis (Chronic) Major depression (Acute) Auditory hallucinations (Acute) Suicidal ideation (Acute) COVID-19 (Acute) Contraception management (Acute) Vitamin D deficiency (Acute) Vitamin B12 deficiency (Acute) Uses control (Acute) Orthostatic hypotension (Acute) Supraventricular tachycardia by ECG (Acute) Major depression in partial remission (Acute) Left ovarian cyst (Acute) Migraine (Acute) Past Medical History Medical History Schizoaffective disorder Intellectual disability Contraception management Vitamin D deficiency Vitamin B12 deficiency Uses control Hx of ovarian cyst Epigastric abdominal pain Orthostatic hypotension Supraventricular tachycardia by ECG Major depression in partial remission Left ovarian cyst Migraine Family History Family History Mother Bipolar disorder Mental health disorder Family history of problems with anesthesia: No Surgical History Surgical History H/O removal of cyst History of Problems with Anesthesia: No Social History Social History Household Members: Other Household Members Other:: Pt unable to answer questions d/t mental status. Housing: Other Housing Other:: Pt unable to answer questions d/t mental status. Alcohol intake: never Comment: Pt utilizing wheelchair with staff assistance. Patient Tobacco Use Status: Never used Tobacco e-Cigarette/Vaping Use: Never Used Second Hand Smoke Exposure: No Use of substances other than those prescribed or required for medical reasons: Unknown Substance Use Type: Unknown Last Used Substance: Unknown Last Used Substance Other:: Pt unable to answer questions d/t mental status. Currently Displaying Signs/Symptoms of Drug Intoxication Withdrawal: No Other Past Substance Use Problem:: Pt unable to answer questions d/t mental status. Advance Directives: No Advance Directives Information Provided: Yes Do you have thoughts of harming others: None Do you have a plan to hurt others: No Plan How much weight loss: Unsure Patient : No : No Poor oral hygiene: Yes service: No Current occupational status: unemployed Sexual orientation: Unable to collect Cognitive needs: No Hearing needs: No Vision needs: No Meds Allergies Allergy/AdvReac Type Severity Reaction Status Date / Time haloperidol AdvReac EPS Verified 11/15/23 12:43 metoprolol AdvReac Diarrhea Verified 10/07/23 23:43 Active Medications: Current Medications Acetaminophen (Acetaminophen 325 Mg Tablet) 650 mg PO Q6H PRN PRN Reason: Headache/Pain Mild Scale (1-3) Al Hydroxide/Mg Hydroxide (Magnesium Hydrox/Alum Hydrox 30 Ml Oral.Susp) 30 ml PO Q6H PRN PRN Reason: Heartburn/Nausea Aripiprazole (Aripiprazole 5 Mg Tablet) 5 mg PO TID KRISTI Last Admin: 11/24/23 20:54 Dose: 5 mg Hydroxyzine HCl (Hydroxyzine Hcl 25 Mg Tablet) 25 mg PO Q6H PRN PRN Reason: Anxiety Last Admin: 11/24/23 10:30 Dose: 25 mg Lactated Ringer's (Lr) 1,000 mls @ 50 mls/hr IVCONT .Q20H KRISTI Lorazepam (Lorazepam 1 Mg Tablet) 1 mg PO TID [facility] Last Admin: 11/24/23 20:54 Dose: 1 mg Lorazepam (Lorazepam 2 Mg/Ml Vial) 2 mg IM DAILY PRN PRN Reason: only if refuses ECT Magnesium Hydroxide (Milk Of Magnesia 30 Ml Oral.Susp) 30 ml PO DAILY PRN PRN Reason: Constipation Ondansetron HCl (Ondansetron Odt 4 Mg Tab.Rapdis) 4 mg TRANSLINGU Q6H PRN PRN Reason: Nausea and Vomiting Last Admin: 11/22/23 16:44 Dose: 4 mg Trazodone HCl (Trazodone Hcl 50 Mg Tablet) 50 mg PO BEDTIME MRX1 PRN PRN Reason: Insomnia Last Admin: 11/17/23 21:20 Dose: 50 mg Exam Height,Weight and Vital Signs: Weight 63 kg Last Vital Signs Temp 97.8 F 11/25/23 06:37 Pulse 74 11/25/23 06:37 Resp 16 11/25/23 06:37 BP 114/71 11/25/23 06:37 Pulse Ox 100 11/25/23 06:37 O2 Del Method Room Air 11/25/23 06:37 O2 Flow Rate 2 11/22/23 16:10 Pertinent Lab Results Pertinent Lab Results: Laboratory Tests 11/16/23 11/17/23 11/17/23 19:38 07:27 12:37 WBC 7.0 RBC 4.77 Hgb 12.7 Hct 38.7 MCV 81.1 MCH 26.6 L MCHC 32.8 RDW 16.2 H Plt Count 393 MPV 10.6 Immature Gran % (Auto) 0.3 Neut % (Auto) 61.5 Lymph % (Auto) 22.9 Thayer % (Auto) 11.4 H Eos % (Auto) 3.3 Baso % (Auto) 0.6 Lymph # (Auto) 1.6 Thayer # (Auto) 0.8 Eos # (Auto) 0.2 Baso # (Auto) 0.0 Abs Immat Gran (auto) 0.02 Absolute Neuts (auto) 4.3 Absolute Nucleated RBC 0.000 Nucleated RBC % (auto) 0.0 Sodium 142 141 Potassium 3.7 3.8 Chloride 109 H 110 H Carbon Dioxide 26 20 L Anion Gap 11 L 15 BUN < 3 L 3 L Creatinine 0.57 0.57 Estim Creat Clear Calc TNP TNP Estimated GFR > 60 > 60 Random Glucose 94 Fasting Glucose 74 Calcium 9.2 D 9.4 Total Bilirubin 0.4 AST 30 ALT 36 H Alkaline Phosphatase 72 Total Protein 6.9 Albumin 3.9 Triglycerides 85 Cholesterol 142 LDL Cholesterol, Calc 73 HDL Cholesterol 52 Urine Color Yellow Urine Appearance Cloudy Urine pH 8.5 Ur Specific Melville 1.015 Urine Protein Negative Urine Glucose (UA) Negative Urine Ketones Negative Urine Blood Negative Urine Nitrite Negative Ur Leukocyte Esterase Moderate (2+) H Urine RBC 0-2 Urine WBC 6-10 H Ur Squamous Epith Cells 11-20 Other Crystals Present Urine Bacteria 2+ Hyaline Casts 0-2 COVID-19 (Y[facility]ILA) COVID-19 Clin Com 11/21/23 09:29 WBC RBC Hgb Hct MCV MCH MCHC RDW Plt Count MPV Immature Gran % (Auto) Neut % (Auto) Lymph % (Auto) Thayer % (Auto) Eos % (Auto) Baso % (Auto) Lymph # (Auto) Thayer # (Auto) Eos # (Auto) Baso # (Auto) Abs Immat Gran (auto) Absolute Neuts (auto) Absolute Nucleated RBC Nucleated RBC % (auto) Sodium Potassium Chloride Carbon Dioxide Anion Gap BUN Creatinine Estim Creat Clear Calc Estimated GFR Random Glucose Fasting Glucose Calcium Total Bilirubin AST ALT Alkaline Phosphatase Total Protein Albumin Triglycerides Cholesterol LDL Cholesterol, Calc HDL Cholesterol Urine Color Urine Appearance Urine pH Ur Specific Mel[place] Urine Protein Urine Glucose (UA) Urine Ketones Urine Blood Urine Nitrite Ur Leukocyte Esterase Urine RBC Urine WBC Ur Squamous Epith Cells Other Crystals Urine Bacteria Hyaline Casts COVID-19 (YAMILA) Negative COVID-19 Clin Com See Note Airway Mallampati Class: II TM Dist: >3cm Neck ROM: Full Heart: rrr Lungs: cta Assessment and Plan Assessment Anesthesia Assessment: Anesthesia Plan Discussed and Chart Reviewed Final Anesthetic Review Family History of Problems with Anesthesia: No History of Problems with Anesthesia: No NPO: Yes ASA Class: III Final Preanesthetic Review: No Changes in Pt Med Stat, Meds/Allgs Chart Reviewed and Consent Obtained/Reviewed Patient Risk: Low Procedure Risk: Intermediate Anesthetic Plan Anesthetic Plan: GA Disposition: Standard PACU
--- NOTE | 2023-11-25 07:00 | MHC.SHP ---
Pre-Procedural Eval Section A - 24 Hr Update-Section A only Date of Service: 11/25/23 The patient is an INPATIENT: Yes Changes since office visit: No Cold of Flu in the past 2 weeks, No New Medical Problems, No Changes in Medication and No Patient answered all questions The patient has been examined within 24 hours of the surgical procedure. The History & Physical has been completed within 30 days and I have reviewed it.: Yes Section B - Complete if H&P > 30 days Chief Complaint: Catatonia Allergies: Allergies Allergy/AdvReac Type Severity Reaction Status Date / Time haloperidol AdvReac EPS Verified 11/15/23 12:43 metoprolol AdvReac Diarrhea Verified 10/07/23 23:43 Plan I have reviewed the history and physical and performed a pertinent physical examination on my patient. No changes have occurred unless specified. Time Spent With Patient Time: Total time managing care of this patient today ____ minutes.
[2023-11-25] MEDS: Lactated Ringers 1,000 ML 50 ML IVCONT (07:03)
--- NOTE | 2023-11-25 07:18 | HO.ECTPROC ---
ECT Procedure Note Diagnosis/Treatment Date of Service: 11/25/23 Diagnosis: Catatonia and Schizoaffective Disorder Previous ECT Date: 11/22/23 Current Treatment Number: 3 Treatment: Series Interval Clinical Notes: The patient remains catatonic and disorganized, with a long delayed on her answers. Unable to provide details about previous ECT or side effects. Last ECT, she had a long seizure. ECT done, I lowered prameters to 0.25 40%, no Flumazenil as per primary team's request and she had a seizure that was shorter than before but still therapeutic, stopped by itself. Propofol given after the seizure. Woke up without any problems, no complications with this procedure. Time: Total time managing care of this patient today __30__ minutes. ECT Settings Device: THYMATRON DGx Electrode Placement: Right Unilateral Program/Pulse Width: 0.25 Energy Percent: 40 Seizure Duration By EEG (in seconds): 61 By Motor Observation (in seconds): 35 Medications Administration General Anesthetic: Etomidate (80) Muscle Relaxant: Succinylcholine (80) Ancillary Medications Analgesics: Torodol - Pre ECT Anti-emetics: Zofran - Pre ECT Miscillaneous Medications: Propofol (30) Airway Management Airway Management: Bag Mask Ventilation Treatment Recommendations No Changes Recommended: No change Pt Tolerated Procedure w/o Issue: Yes
--- NOTE | 2023-11-25 08:34 | HO.PSYCHPN ---
Subjective Subjective Date of Service: 11/25/23 Reason For Visit: Catatonia Interim History: Met with patient; discussed with team; reviewed weekend note reports she's sad, wishses she were ; says mood is not too good. However she says AH is less bothersome which is welcomed; and she is not eating close to regularly. She is tired after ECT but wants to continue Mental Status Exam Mental Status Exam Narrative: Pt is alert and oriented; behavior is disorganized but improving; patient is not in distress; dressed in hospital attire, disheveled; mood is described as not too good and affect blunted; eye contact limited; psychomotor retardation present; Speech is impoverished but talking more and is more linear; still slow, soft; Thought process goal oriented; somewhat distracted;thought content is being said, wishing she were ; some delusional, paranoid fears; denies any SI/HI. AH remains but less; Patients insight and judgment impaired but may be improv Diagnostics Vital Signs (24Hr): Vital Signs - 24 hr 11/24/23 18:00 11/25/23 06:13 11/25/23 06:37 Temperature 97.7 F 97.6 F 97.8 F Pulse Rate 130 H 86 74 Respiratory Rate 18 18 16 Blood Pressure 147/87 H 104/72 114/71 Pulse Oximetry 100 97 100 Oxygen Delivery Method Room Air Room Air Oxygen Flow Rate 11/25/23 08:03 11/25/23 08:08 11/25/23 08:13 Temperature 97.7 F Pulse Rate 92 81 91 Respiratory Rate 21 H 17 15 Blood Pressure 118/59 L 107/58 L 105/60 Pulse Oximetry 99 100 100 Oxygen Delivery Method Nasal Cannula with ETCO2 Nasal Cannula with ETCO2 Nasal Cannula with ETCO2 Oxygen Flow Rate 2 2 2 11/25/23 08:18 Temperature Pulse Rate 104 H Respiratory Rate 16 Blood Pressure 99/66 Pulse Oximetry 98 Oxygen Delivery Method Room Air Oxygen Flow Rate Labs 11/16/23 19:38 11/17/23 07:27 Medications Medications Current Medications Acetaminophen (Acetaminophen 325 Mg Tablet) 650 mg PO Q6H PRN PRN Reason: Headache/Pain Mild Scale (1-3) Al Hydroxide/Mg Hydroxide (Magnesium Hydrox/Alum Hydrox 30 Ml Oral.Susp) 30 ml PO Q6H PRN PRN Reason: Heartburn/Nausea Aripiprazole (Aripiprazole 5 Mg Tablet) 5 mg PO TID [facility] Last Admin: 11/24/23 20:54 Dose: 5 mg Hydroxyzine HCl (Hydroxyzine Hcl 25 Mg Tablet) 25 mg PO Q6H PRN PRN Reason: Anxiety Last Admin: 11/24/23 10:30 Dose: 25 mg Lactated Ringer's (Lr) 1,000 mls @ 50 mls/hr IVCONT .Q20H [facility] Last Admin: 11/25/23 07:03 Dose: 50 mls/hr Lorazepam (Lorazepam 1 Mg Tablet) 1 mg PO TID [facility] Last Admin: 11/24/23 20:54 Dose: 1 mg Lorazepam (Lorazepam 2 Mg/Ml Vial) 2 mg IM DAILY PRN PRN Reason: only if refuses ECT Magnesium Hydroxide (Milk Of Magnesia 30 Ml Oral.Susp) 30 ml PO DAILY PRN PRN Reason: Constipation Ondansetron HCl (Ondansetron Odt 4 Mg Tab.Rapdis) 4 mg TRANSLINGU Q6H PRN PRN Reason: Nausea and Vomiting Last Admin: 11/22/23 16:44 Dose: 4 mg Trazodone HCl (Trazodone Hcl 50 Mg Tablet) 50 mg PO BEDTIME MRX1 PRN PRN Reason: Insomnia Last Admin: 11/17/23 21:20 Dose: 50 mg Allergies Allergies Allergy/AdvReac Type Severity Reaction Status Date / Time haloperidol AdvReac EPS Verified 11/15/23 12:43 metoprolol AdvReac Diarrhea Verified 10/07/23 23:43 Assessment & Plan Assessment & Plan (1) Schizoaffective disorder: Status: Acute Code(s): F25.9 - Schizoaffective disorder, unspecified (2) 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 11/17 Patient transferred back to psychiatric unit from medical floor. She remains floridly psychotic, with auditory hallucinations that say mean things, paranoid delusions, disorganized, needing one-to-one to guide her around the unit and attend to all ADLs. Extruder Tender consulted with Dr. Ackerman who met with patient on the unit with commercial lines underwriter and agreed that patient will do best to start ECT as soon as possible. Discussed medication regimen going forward with which he agrees; discussed case with Michelle Gary, hospitalist LAMINE who says she is cleared for ECT and will put in note saying so. Impression: Patient is floridly psychotic and delusional, hardly eating, with very disorganized behavior requiring one-to-one to walk on the unit let alone attend ADLs. Thus far medication trials have been ineffective; she has catatonic like features and a psychotic delirium for which the treatment is ECT which is included in substituted judgment. Will restart Abilify since it may have helped a little however will not have an IM backup if she refuses since it is unclear if Abilify did actually help and less clear that an IM of another antipsychotic will help at all; will continue with the Ativan however will not have an IM backup for similar reasons hospital course: 11/18 pt remains delusional w/ AH; says she broke the law...reports AH. commercial lines underwriter discussed ECT with her and she says she wants it since it may take away the AH. Eat some food which was encouraging; took some meds but then spit it out 11/19 disorganized and sleeping post ECT Discussed case with outpatient provider Radha Chase who reported that over the past year she started to suspect patient was possibly having hypomanic episodes; she listed various medications that were tried to help with depression anxiety but to little avail. She says at baseline patient is organized, logical clear and friendly 11/20 remains disorganized, psychotic, catatonic however is talking a little more and eating on her own more -taking medications w/out spitting out 11/24/23 continue tx 11/24 reports she's sad, wishses she were ; says mood is not too good. However she says AH is less bothersome which is welcomed; and she is not eating close to regularly. She is tired after ECT but wants to continue PLAN: Section 8/ q5's; pt no longer fall risk ECT #4 on 11/26 (COURT ORDERED with substituted judgment; patient can not refuse) -npo change to daily abilify 15mg daily (will hold off w/ IM back up for now) continue ativan 1mg TID (will hold off w/ IM back up for now) DC Olanzapine Medication trials: Trileptal: drowsy Depakote: nausea Risperdal Zyprexa: Tachycardic Abilify: Hypotensive Caplyta Vraylar Lamictal: Rash Topamax: No help Zoloft, Prozac, Effexor, Wellbutrin, Cymbalta, BuSpar, Viibryd, Ovelty ? (combination of cough syrup ingredient plus Wellbutrin) Patient educated on: diagnosis and ECT Informed Consent: understands, does not understand and further education needed Reason for continued inpatient stay Substantial Risk for: inability to function Time Spent With Patient Time: Total time managing care of this patient today ____ minutes.
[2023-11-25] MEDS: LORazepam 1 MG TABLET PO ×3 (09:06→19:53)
[2023-11-25] MEDS: ARIPiprazole 5 MG TABLET PO ×2 (09:06→14:46)
[2023-11-25] MEDS: ARIPiprazole 10 MG TABLET PO (20:10)
[2023-11-26 06:00] VITALS: BP 121/67; PULSE 92; RESP 19; TEMP 36.7; O2SAT 100
--- NOTE | 2023-11-26 08:53 | P.PNPSI_ITS ---
Subjective Subjective Date of Service: 11/26/23 Reason For Visit: Catatonia Interim History: Met with Patient; discussed with team Still disorganized and with paranoid delusions however unlike before, when patient will ask about if people are dying or if her dixon is dying or if she committed a crime... This time when ticket writer says it has not true that her mind is just playing tricks on her, she says okay and seems to briefly accept ticket writer's answer. That said she will ask the same question shortly afterwards. She continues to ask when she can get her next ECT treatment. Patient complaining of some lower back pain. Trying to get UA however it has been proving difficult per nursing given patient's disorganization. Mental Status Exam Mental Status Exam Narrative: Pt is alert and oriented; behavior is disorganized but improving; patient is not in distress; dressed in hospital attire, disheveled; mood is described as not too good and affect blunted; eye contact limited; psychomotor retardation present; Speech is impoverished but talking more and is more linear; still slow, soft; Thought process goal oriented; somewhat distracted;thought content is being said, wishing she were ; some delusional, paranoid fears; denies any SI/HI. AH remains but less; Patients insight and judgment impaired but may be improv Diagnostics Vital Signs (24Hr): Vital Signs - 24 hr 11/25/23 09:00 11/25/23 18:00 11/26/23 06:00 Temperature 97.8 F 97.7 F 98.1 F Pulse Rate 86 93 92 Respiratory Rate 17 20 19 Blood Pressure 103/65 117/87 121/67 Pulse Oximetry 100 100 Oxygen Delivery Method Room Air Room Air Labs 11/16/23 19:38 11/17/23 07:27 Medications Medications Current Medications Acetaminophen (Acetaminophen 325 Mg Tablet) 650 mg PO Q6H PRN PRN Reason: Headache/Pain Mild Scale (1-3) Al Hydroxide/Mg Hydroxide (Magnesium Hydrox/Alum Hydrox 30 Ml Oral.Susp) 30 ml PO Q6H PRN PRN Reason: Heartburn/Nausea Aripiprazole (Aripiprazole 5 Mg Tablet) 5 mg PO DAILY KRISTI Aripiprazole (Aripiprazole 10 Mg Tablet) 10 mg PO BEDTIME KRISTI Last Admin: 11/25/23 20:10 Dose: 10 mg Hydroxyzine HCl (Hydroxyzine Hcl 25 Mg Tablet) 25 mg PO Q6H PRN PRN Reason: Anxiety Last Admin: 11/24/23 10:30 Dose: 25 mg Lorazepam (Lorazepam 1 Mg Tablet) 1 mg PO TID KRISTI Last Admin: 11/25/23 19:53 Dose: 1 mg Magnesium Hydroxide (Milk Of Magnesia 30 Ml Oral.Susp) 30 ml PO DAILY PRN PRN Reason: Constipation Ondansetron HCl (Ondansetron Odt 4 Mg Tab.Rapdis) 4 mg TRANSLINGU Q6H PRN PRN Reason: Nausea and Vomiting Last Admin: 11/22/23 16:44 Dose: 4 mg Trazodone HCl (Trazodone Hcl 50 Mg Tablet) 50 mg PO BEDTIME MRX1 PRN PRN Reason: Insomnia Last Admin: 11/17/23 21:20 Dose: 50 mg Allergies Allergies Allergy/AdvReac Type Severity Reaction Status Date / Time haloperidol AdvReac EPS Verified 11/15/23 12:43 metoprolol AdvReac Diarrhea Verified 10/07/23 23:43 Assessment & Plan Assessment & Plan (1) Schizoaffective disorder: Status: Acute Code(s): F25.9 - Schizoaffective disorder, unspecified (2) 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 11/17 Patient transferred back to psychiatric unit from medical floor. She remains floridly psychotic, with auditory hallucinations that say mean things, paranoid delusions, disorganized, needing one-to-one to guide her around the unit and attend to all ADLs. Customer Service Officer consulted with Dr. Ackerman who met with patient on the unit with ticket writer and agreed that patient will do best to start ECT as soon as possible. Discussed medication regimen going forward with which he agrees; discussed case with Michelle Gary, hospitalist LAMINE who says she is cleared for ECT and will put in note saying so. Impression: Patient is floridly psychotic and delusional, hardly eating, with very disorganized behavior requiring one-to-one to walk on the unit let alone attend ADLs. Thus far medication trials have been ineffective; she has catatonic like features and a psychotic delirium for which the treatment is ECT which is included in substituted judgment. Will restart Abilify since it may have helped a little however will not have an IM backup if she refuses since it is unclear if Abilify did actually help and less clear that an IM of another antipsychotic will help at all; will continue with the Ativan however will not have an IM backup for similar reasons hospital course: 11/18 pt remains delusional w/ AH; says she broke the law...reports AH. ticket writer discussed ECT with her and she says she wants it since it may take away the AH. Eat some food which was encouraging; took some meds but then spit it out 11/19 disorganized and sleeping post ECT Discussed case with outpatient provider Radha Chase who reported that over the past year she started to suspect patient was possibly having hypomanic episodes; she listed various medications that were tried to help with depression anxiety but to little avail. She says at baseline patient is organized, logical clear and friendly 11/20 remains disorganized, psychotic, catatonic however is talking a little more and eating on her own more -taking medications w/out spitting out 11/24/23 continue tx 11/24 reports she's sad, wishses she were ; says mood is not too good. However she says AH is less bothersome which is welcomed; and she is not eating close to regularly. She is tired after ECT but wants to continue 11/25 Still disorganized and with paranoid delusions however unlike before, when patient will ask about if people are dying or if her dixon is dying or if she committed a crime... This time when ticket writer says it has not true that her mind is just playing tricks on her, she says okay and seems to briefly accept ticket writer's answer. That said she will ask the same question shortly afterwards. She continues to ask when she can get her next ECT treatment. Patient complaining of some lower back pain. Trying to get UA however it has been proving difficult per nursing given patient's disorganization. PLAN: Section 8/8b q5's; pt no longer fall risk ECT #4 on 11/26 (COURT ORDERED with substituted judgment; patient can not refuse) -npo change to daily abilify 5mg qam and 10mg qhs (court ordered but will hold off w/ IM back up for now) continue ativan 1mg TID (court ordered but will hold off w/ IM back up for now) DC Olanzapine Medication trials: Trileptal: drowsy Depakote: nausea Risperdal Zyprexa: Tachycardic Abilify: Hypotensive Caplyta Vraylar Lamictal: Rash Topamax: No help Zoloft, Prozac, Effexor, Wellbutrin, Cymbalta, BuSpar, Viibryd, Ovelty ? (combination of cough syrup ingredient plus Wellbutrin) Patient educated on: diagnosis, medication risk/benefits and ECT Informed Consent: understands, does not understand and further education needed Reason for continued inpatient stay Substantial Risk for: inability to function Time Spent With Patient Time: Total time managing care of this patient today ____ minutes.
[2023-11-26] MEDS: ARIPiprazole 5 MG TABLET PO (09:01)
[2023-11-26] MEDS: LORazepam 1 MG TABLET PO ×3 (09:01→20:35)
[2023-11-26] MEDS: Acetaminophen 325 MG TABLET 650 MG PO (10:54)
[2023-11-26] MEDS: hydrOXYzine HCL 25 MG TABLET PO (12:13)
[2023-11-26 18:00] VITALS: BP 125/86; PULSE 118; RESP 18; TEMP 36.5; O2SAT 97
[2023-11-26] MEDS: Milk of Magnesia 30 ML ORAL.SUSP PO (18:23)
--- NOTE | 2023-11-26 18:28 | PC.NURSE ---
Pt coming to nurse station reporting she is uncomfortable and feels constipated. Given MOM as per MAR and encouraged drinking water/fluids and continue with ambulation. UA sent on 11/23 and report indicated likely contaminated. Tried to collect repeat UA and unable. Will endorse to next shift
[2023-11-26] MEDS: ARIPiprazole 10 MG TABLET PO (20:36)
[2023-11-27] VITALS (12 sets, daily range): BP systolic 100–130; BP diastolic 51–82; PULSE 83–111; RESP 16–18; TEMP 36.1–36.8; O2SAT 96–100
--- NOTE | 2023-11-27 06:52 | HO.ANESPROP2 ---
HPI - Anesthesia Eval Consult details Narrative: Major Depression Disorder [facility] Active Problems Active Problems: All Active Problems Catatonia (Acute) Schizoaffective disorder (Acute) Syncope (Acute) Intellectual disability (Acute) Psychosis (Acute) Major depressive disorder, recurrent episode, severe, with psychosis (Chronic) Major depression (Acute) Auditory hallucinations (Acute) Suicidal ideation (Acute) COVID-19 (Acute) Contraception management (Acute) Vitamin D deficiency (Acute) Vitamin B12 deficiency (Acute) Uses control (Acute) Orthostatic hypotension (Acute) Supraventricular tachycardia by ECG (Acute) Major depression in partial remission (Acute) Left ovarian cyst (Acute) Migraine (Acute) Past Medical History Medical History Schizoaffective disorder Intellectual disability Contraception management Vitamin D deficiency Vitamin B12 deficiency Uses control Hx of ovarian cyst Epigastric abdominal pain Orthostatic hypotension Supraventricular tachycardia by ECG Major depression in partial remission Left ovarian cyst Migraine Family History Family History Mother Bipolar disorder Mental health disorder Family history of problems with anesthesia: No Surgical History Surgical History H/O removal of cyst History of Problems with Anesthesia: No Social History Social History Household Members: Other Household Members Other:: Pt unable to answer questions d/t mental status. Housing: Other Housing Other:: Pt unable to answer questions d/t mental status. Alcohol intake: never Comment: Pt utilizing wheelchair with staff assistance. Patient Tobacco Use Status: Never used Tobacco e-Cigarette/Vaping Use: Never Used Second Hand Smoke Exposure: No Use of substances other than those prescribed or required for medical reasons: Unknown Substance Use Type: Unknown Last Used Substance: Unknown Last Used Substance Other:: Pt unable to answer questions d/t mental status. Currently Displaying Signs/Symptoms of Drug Intoxication Withdrawal: No Other Past Substance Use Problem:: Pt unable to answer questions d/t mental status. Advance Directives: No Advance Directives Information Provided: Yes Do you have thoughts of harming others: None Do you have a plan to hurt others: No Plan How much weight loss: Unsure Patient : No : No Poor oral hygiene: Yes service: No Current occupational status: unemployed Sexual orientation: Unable to collect Cognitive needs: No Hearing needs: No Vision needs: No Meds Allergies Allergy/AdvReac Type Severity Reaction Status Date / Time haloperidol AdvReac EPS Verified 11/15/23 12:43 metoprolol AdvReac Diarrhea Verified 10/07/23 23:43 Active Medications: Current Medications Acetaminophen (Acetaminophen 325 Mg Tablet) 650 mg PO Q6H PRN PRN Reason: Headache/Pain Mild Scale (1-3) Last Admin: 11/26/23 10:54 Dose: 650 mg Al Hydroxide/Mg Hydroxide (Magnesium Hydrox/Alum Hydrox 30 Ml Oral.Susp) 30 ml PO Q6H PRN PRN Reason: Heartburn/Nausea Aripiprazole (Aripiprazole 5 Mg Tablet) 5 mg PO DAILY [facility] Last Admin: 11/26/23 09:01 Dose: 5 mg Aripiprazole (Aripiprazole 10 Mg Tablet) 10 mg PO BEDTIME KRISTI Last Admin: 11/26/23 20:36 Dose: 10 mg Hydroxyzine HCl (Hydroxyzine Hcl 25 Mg Tablet) 25 mg PO Q6H PRN PRN Reason: Anxiety Last Admin: 11/26/23 12:13 Dose: 25 mg Lorazepam (Lorazepam 1 Mg Tablet) 1 mg PO TID KRISTI Last Admin: 11/26/23 20:35 Dose: 1 mg Magnesium Hydroxide (Milk Of Magnesia 30 Ml Oral.Susp) 30 ml PO DAILY PRN PRN Reason: Constipation Last Admin: 11/26/23 18:23 Dose: 30 ml Ondansetron HCl (Ondansetron Odt 4 Mg Tab.Rapdis) 4 mg TRANSLINGU Q6H PRN PRN Reason: Nausea and Vomiting Last Admin: 11/22/23 16:44 Dose: 4 mg Trazodone HCl (Trazodone Hcl 50 Mg Tablet) 50 mg PO BEDTIME MRX1 PRN PRN Reason: Insomnia Last Admin: 11/17/23 21:20 Dose: 50 mg Exam Height,Weight and Vital Signs: Weight 63 kg Last Vital Signs Temp 98.3 F 11/27/23 06:49 Pulse 83 11/27/23 06:49 Resp 16 11/27/23 06:49 BP 121/74 11/27/23 06:49 Pulse Ox 100 11/27/23 06:49 O2 Del Method Room Air 11/27/23 06:49 O2 Flow Rate 2 11/25/23 08:13 Pertinent Lab Results Pertinent Lab Results: Laboratory Tests 11/16/23 11/17/23 11/17/23 19:38 07:27 12:37 WBC 7.0 RBC 4.77 Hgb 12.7 Hct 38.7 MCV 81.1 MCH 26.6 L MCHC 32.8 RDW 16.2 H Plt Count 393 MPV 10.6 Immature Gran % (Auto) 0.3 Neut % (Auto) 61.5 Lymph % (Auto) 22.9 [place] % (Auto) 11.4 H Eos % (Auto) 3.3 Baso % (Auto) 0.6 Lymph # (Auto) 1.6 [place] # (Auto) 0.8 Eos # (Auto) 0.2 Baso # (Auto) 0.0 Abs Immat Gran (auto) 0.02 Absolute Neuts (auto) 4.3 Absolute Nucleated RBC 0.000 Nucleated RBC % (auto) 0.0 Sodium 142 141 Potassium 3.7 3.8 Chloride 109 H 110 H Carbon Dioxide 26 20 L Anion Gap 11 L 15 BUN < 3 L 3 L Creatinine 0.57 0.57 Estim Creat Clear Calc TNP TNP Estimated GFR > 60 > 60 Random Glucose 94 Fasting Glucose 74 Calcium 9.2 D 9.4 Total Bilirubin 0.4 AST 30 ALT 36 H Alkaline Phosphatase 72 Total Protein 6.9 Albumin 3.9 Triglycerides 85 Cholesterol 142 LDL Cholesterol, Calc 73 HDL Cholesterol 52 Urine Color Yellow Urine Appearance Cloudy Urine pH 8.5 Ur Specific [place] 1.015 Urine Protein Negative Urine Glucose (UA) Negative Urine Ketones Negative Urine Blood Negative Urine Nitrite Negative Ur Leukocyte Esterase Moderate (2+) H Urine RBC 0-2 Urine WBC 6-10 H Ur Squamous Epith Cells 11-20 Other Crystals Present Urine Bacteria 2+ Hyaline Casts 0-2 COVID-19 (YAMILA) COVID-19 Clin Com 11/21/23 09:29 WBC RBC Hgb Hct MCV MCH MCHC RDW Plt Count MPV Immature Gran % (Auto) Neut % (Auto) Lymph % (Auto) [place] % (Auto) Eos % (Auto) Baso % (Auto) Lymph # (Auto) [place] # (Auto) Eos # (Auto) Baso # (Auto) Abs Immat Gran (auto) Absolute Neuts (auto) Absolute Nucleated RBC Nucleated RBC % (auto) Sodium Potassium Chloride Carbon Dioxide Anion Gap BUN Creatinine Estim Creat Clear Calc Estimated GFR Random Glucose Fasting Glucose Calcium Total Bilirubin AST ALT Alkaline Phosphatase Total Protein Albumin Triglycerides Cholesterol LDL Cholesterol, Calc HDL Cholesterol Urine Color Urine Appearance Urine pH Ur Specific [place] Urine Protein Urine Glucose (UA) Urine Ketones Urine Blood Urine Nitrite Ur Leukocyte Esterase Urine RBC Urine WBC Ur Squamous Epith Cells Other Crystals Urine Bacteria Hyaline Casts COVID-19 (YAMILA) Negative COVID-19 Clin Com See Note Airway Mallampati Class: II TM Dist: >3cm Neck ROM: Full Loose/Missing/Broken Teeth: No Heart: [id number] Lungs: cta b/l Assessment and Plan Assessment Anesthesia Assessment: Anesthesia Plan Discussed and Chart Reviewed Final Anesthetic Review Family History of Problems with Anesthesia: No History of Problems with Anesthesia: No NPO: Yes ASA Class: III Final Preanesthetic Review: No Changes in Pt Med Stat, Meds/Allgs Chart Reviewed, Consent Obtained/Reviewed and Anes Risks/Benef Reviewed Patient Risk: Intermediate Procedure Risk: Intermediate Assessment/Block/Sedation in SS: Assess/Block/Sedation-SS Anesthetic Plan Anesthetic Plan: GA and Agree w/ Assess. and Plan Disposition: Standard PACU
--- NOTE | 2023-11-27 07:04 | MHC.SHP ---
Pre-Procedural Eval Section A - 24 Hr Update-Section A only Date of Service: 11/27/23 The patient is an INPATIENT: Yes Changes since office visit: No Cold of Flu in the past 2 weeks The patient has been examined within 24 hours of the surgical procedure. The History & Physical has been completed within 30 days and I have reviewed it.: Yes Section B - Complete if H&P > 30 days Chief Complaint: Catatonia Allergies: Allergies Allergy/AdvReac Type Severity Reaction Status Date / Time haloperidol AdvReac EPS Verified 11/15/23 12:43 metoprolol AdvReac Diarrhea Verified 10/07/23 23:43 Plan I have reviewed the history and physical and performed a pertinent physical examination on my patient. No changes have occurred unless specified. Time Spent With Patient Time: Total time managing care of this patient today ____ minutes.
--- NOTE | 2023-11-27 07:20 | HO.ECTPROC ---
ECT Procedure Note Diagnosis/Treatment Date of Service: 11/27/23 Diagnosis: Catatonia Previous ECT Date: 11/25/23 Current Treatment Number: 4 Treatment: Series Interval Clinical Notes: Patient seems to have a much mitchell range of affect a eating and drinking more less thought blocking no noted side effects Time: Total time managing care of this patient today ____ minutes. ECT Settings Device: THYMATRON DGx Electrode Placement: Right Unilateral Program/Pulse Width: 0.25 Energy Percent: 40 Seizure Duration By EEG (in seconds): 77 Medications Administration General Anesthetic: Etomidate (14) Muscle Relaxant: Succinylcholine (80) Ancillary Medications Analgesics: Torodol - Pre ECT Anti-emetics: Zofran - Pre ECT Miscillaneous Medications: Midazolam (2mg ) Airway Management Airway Management: Bag Mask Ventilation Treatment Recommendations No Changes Recommended: No change Pt Tolerated Procedure w/o Issue: Yes
[2023-11-27] MEDS: ARIPiprazole 5 MG TABLET PO (08:39)
[2023-11-27] MEDS: LORazepam 1 MG TABLET PO (08:39)
[2023-11-27] MEDS: hydrOXYzine HCL 25 MG TABLET PO ×2 (08:39→16:30)
--- NOTE | 2023-11-27 09:40 | P.PNPSI_ITS ---
Subjective Subjective Date of Service: 11/27/23 Reason For Visit: Catatonia Interim History: met with patient; discussed with team pt post ECT today and says she feels a little wobbly. She continues to report depression but only sometimes wishing she were . Regarding AH only sometimes and no longer thinks she committed crimes, is a rapist, a terrorist or needs to go the police station and...she has no memory of thinking such things. Only sometimes thinks food is poisoned...but not much and eating well. Currently not worried if mom or dixon is unsafe... had BM today complains of a little bit of burning sensation when urinates; it was hard to determine if she currently feels and urgency Diagnostics Vital Signs (24Hr): Vital Signs - 24 hr 11/26/23 18:00 11/27/23 06:10 11/27/23 06:49 Temperature 97.7 F 97.6 F 98.3 F Pulse Rate 118 H 96 83 Respiratory Rate 18 16 16 Blood Pressure 125/86 119/70 121/74 Pulse Oximetry 97 99 100 Oxygen Delivery Method Room Air Room Air Oxygen Flow Rate 11/27/23 07:20 11/27/23 07:25 11/27/23 07:30 Temperature 97 F Pulse Rate 97 96 97 Respiratory Rate 16 16 16 Blood Pressure 118/73 116/65 111/57 L Pulse Oximetry 97 98 98 Oxygen Delivery Method Nasal Cannula with ETCO2 Nasal Cannula with ETCO2 Nasal Cannula with ETCO2 Oxygen Flow Rate 2 2 2 11/27/23 07:35 11/27/23 07:50 11/27/23 08:03 Temperature 98.1 F Pulse Rate 104 H 83 93 Respiratory Rate 16 16 16 Blood Pressure 100/54 L 110/51 L 102/54 L Pulse Oximetry 96 98 98 Oxygen Delivery Method Room Air Room Air Room Air Oxygen Flow Rate 11/27/23 08:36 11/27/23 08:40 11/27/23 09:06 Temperature Pulse Rate 84 84 84 Respiratory Rate 18 18 18 Blood Pressure 111/71 111/71 111/71 Pulse Oximetry 98 98 Oxygen Delivery Method Room Air Oxygen Flow Rate Labs 11/16/23 19:38 11/17/23 07:27 Medications Medications Current Medications Acetaminophen (Acetaminophen 325 Mg Tablet) 650 mg PO Q6H PRN PRN Reason: Headache/Pain Mild Scale (1-3) Last Admin: 11/26/23 10:54 Dose: 650 mg Acetaminophen (Acetaminophen 325 Mg Tablet) 650 mg PO ONCE PRN PRN Reason: Pain, Mild (Pain Scale 1-3) Stop: 11/27/23 12:54 Al Hydroxide/Mg Hydroxide (Magnesium Hydrox/Alum Hydrox 30 Ml Oral.Susp) 30 ml PO Q6H PRN PRN Reason: Heartburn/Nausea Aripiprazole (Aripiprazole 5 Mg Tablet) 5 mg PO DAILY [facility] Last Admin: 11/27/23 08:39 Dose: 5 mg Aripiprazole (Aripiprazole 10 Mg Tablet) 10 mg PO BEDTIME [facility] Last Admin: 11/26/23 20:36 Dose: 10 mg Hydroxyzine HCl (Hydroxyzine Hcl 25 Mg Tablet) 25 mg PO Q6H PRN PRN Reason: Anxiety Last Admin: 11/27/23 08:39 Dose: 25 mg Lorazepam (Lorazepam 1 Mg Tablet) 1 mg PO TID [facility] Last Admin: 11/27/23 08:39 Dose: 1 mg Magnesium Hydroxide (Milk Of Magnesia 30 Ml Oral.Susp) 30 ml PO DAILY PRN PRN Reason: Constipation Last Admin: 11/26/23 18:23 Dose: 30 ml Ondansetron HCl (Ondansetron Odt 4 Mg Tab.Rapdis) 4 mg TRANSLINGU Q6H PRN PRN Reason: Nausea and Vomiting Last Admin: 11/22/23 16:44 Dose: 4 mg Trazodone HCl (Trazodone Hcl 50 Mg Tablet) 50 mg PO BEDTIME MRX1 PRN PRN Reason: Insomnia Last Admin: 11/17/23 21:20 Dose: 50 mg Allergies Allergies Allergy/AdvReac Type Severity Reaction Status Date / Time haloperidol AdvReac EPS Verified 11/15/23 12:43 metoprolol AdvReac Diarrhea Verified 10/07/23 23:43 Assessment & Plan Assessment & Plan (1) Schizoaffective disorder: Status: Acute Code(s): F25.9 - Schizoaffective disorder, unspecified (2) 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 11/17 Patient transferred back to psychiatric unit from medical floor. She remains floridly psychotic, with auditory hallucinations that say mean things, paranoid delusions, disorganized, needing one-to-one to guide her around the unit and attend to all ADLs. House Mover Supervisor consulted with Dr. Ackerman who met with patient on the unit with customs entry writer and agreed that patient will do best to start ECT as soon as possible. Discussed medication regimen going forward with which he agrees; discussed case with Michelle Gary, hospitalist LAMINE who says she is cleared for ECT and will put in note saying so. Impression: Patient is floridly psychotic and delusional, hardly eating, with very disorganized behavior requiring one-to-one to walk on the unit let alone attend ADLs. Thus far medication trials have been ineffective; she has catatonic like features and a psychotic delirium for which the treatment is ECT which is included in substituted judgment. Will restart Abilify since it may have helped a little however will not have an IM backup if she refuses since it is unclear if Abilify did actually help and less clear that an IM of another antipsychotic will help at all; will continue with the Ativan however will not have an IM backup for similar reasons hospital course: 11/18 pt remains delusional w/ AH; says she broke the law...reports AH. customs entry writer discussed ECT with her and she says she wants it since it may take away the AH. Eat some food which was encouraging; took some meds but then spit it out 11/19 disorganized and sleeping post ECT Discussed case with outpatient provider Radha Chase who reported that over the past year she started to suspect patient was possibly having hypomanic episodes; she listed various medications that were tried to help with depression anxiety but to little avail. She says at baseline patient is organized, logical clear and friendly 11/20 remains disorganized, psychotic, catatonic however is talking a little more and eating on her own more -taking medications w/out spitting out 11/24/23 continue tx 11/24 reports she's sad, wishses she were ; says mood is not too good. However she says AH is less bothersome which is welcomed; and she is not eating close to regularly. She is tired after ECT but wants to continue 11/25 Still disorganized and with paranoid delusions however unlike before, when patient will ask about if people are dying or if her dixon is dying or if she committed a crime... This time when customs entry writer says it has not true that her mind is just playing tricks on her, she says okay and seems to briefly accept customs entry writer's answer. That said she will ask the same question shortly afterwards. She continues to ask when she can get her next ECT treatment. Patient complaining of some lower back pain. Trying to get UA however it has been proving difficult per nursing given patient's disorganization. 11/26 pt post ECT today and says she feels a little wobbly. She continues to report depression but only sometimes wishing she were . Regarding AH only sometimes and no longer thinks she committed crimes, is a rapist, a terrorist or needs to go the police station and...she has no memory of thinking such things. Only sometimes thinks food is poisoned...but not much and eating well. Currently not worried if mom or dixon is unsafe... -had BM today -complains of a little bit of burning sensation when urinates; it was hard to determine if she currently feels and urgency -discussed treatment w/ pt and mom, including abilify, ECT now and future... -continue ECT which seems to be helping; will try to get clean-catch UA but given symptoms will likely start Abx for UTI PLAN: Section 8/8b q15's ECT #5 on 11/28 (COURT ORDERED with substituted judgment; patient can not refuse) -npo change to daily abilify 5mg qam and 10mg qhs (court ordered but will hold off w/ IM back up for now) Lowered to ativan 0.5mg TID (court ordered but will hold off w/ IM back up for now) DC Olanzapine Medication trials: Trileptal: drowsy Depakote: nausea Risperdal Zyprexa: Tachycardic Abilify: Hypotensive Caplyta Vraylar Lamictal: Rash Topamax: No help Zoloft, Prozac, Effexor, Wellbutrin, Cymbalta, BuSpar, Viibryd, Ovelty ? (combination of cough syrup ingredient plus Wellbutrin) Patient educated on: diagnosis, medication risk/benefits and ECT Informed Consent: understands, does not understand and further education needed Reason for continued inpatient stay Substantial Risk for: inability to function Time Spent With Patient Time: Total time managing care of this patient today ____ minutes.
[2023-11-27 11:43] LABS: Appearance Urine Clear; Color Urine Yellow; Glucose Urine UA Negative (Negative); Leukocyte Esterase Urine Negative (Negative); Nitrite Urine Negative (Negative); PH 8.5 (5.0-9.0); Specific Gravity - Urine 1.015 (1.005-1.025); Urine Blood Negative (Negative); Urine Ketones Negative (Negative); Urine Protein Negative (Neg-Trace)
[2023-11-27 11:46] LABS: Bacteria Urine None Seen (None Seen); Hyaline Casts Urine 0-2 /LPF (0-2); RBC Urine 0-2 /HPF (0-2); Squamous Epithelial Cell Urine 0-2 /HPF (0-2); WBC Urine 0-5 /HPF (0-5)
[2023-11-27] MEDS: LORazepam 0.5 MG TABLET PO ×2 (14:00→19:42)
[2023-11-27] MEDS: traZODone HCL 50 MG TABLET PO (19:42)
[2023-11-27] MEDS: ARIPiprazole 10 MG TABLET PO (19:43)
[2023-11-28 06:00] VITALS: BP 118/71; PULSE 96; TEMP 36.5; O2SAT 100
[2023-11-28] MEDS: ARIPiprazole 5 MG TABLET PO (08:51)
[2023-11-28] MEDS: LORazepam 0.5 MG TABLET PO ×2 (08:51→14:37)
--- NOTE | 2023-11-28 09:22 | HO.PSYCHPN ---
Subjective Subjective Date of Service: 11/28/23 Reason For Visit: Catatonia Interim History: met with pt; discussed with team how many people ? But did smile today which is very encouraging and first time race and sports book writer has seen her express herself UA unremarkable Mental Status Exam Mental Status Exam Narrative: Pt is alert and oriented; behavior is disorganized but improving; patient is not in distress; dressed in hospital attire, disheveled; mood is described as not too good and affect blunted; eye contact limited; psychomotor retardation present; Speech is impoverished but talking more and is more linear; still slow, soft; Thought process goal oriented; somewhat distracted;thought content is being said, wishing she were ; some delusional, paranoid fears; denies any SI/HI. AH remains but less; Patients insight and judgment impaired but may be improving Diagnostics Vital Signs (24Hr): Vital Signs - 24 hr 11/27/23 18:30 Temperature 97.8 F Pulse Rate 111 H Blood Pressure 130/82 Pulse Oximetry 98 Oxygen Delivery Method Room Air Labs 11/16/23 19:38 11/17/23 07:27 Labs: Laboratory Results - last 48 hr 11/27/23 11:30 Urine Color Yellow Urine Appearance Clear Urine pH 8.5 Ur Specific [place] 1.015 Urine Protein Negative Urine Glucose (UA) Negative Urine Ketones Negative Urine Blood Negative Urine Nitrite Negative Ur Leukocyte Esterase Negative Urine RBC 0-2 Urine WBC 0-5 Ur Squamous Epith Cells 0-2 Urine Bacteria None Seen Hyaline Casts 0-2 Medications Medications Current Medications Acetaminophen (Acetaminophen 325 Mg Tablet) 650 mg PO Q6H PRN PRN Reason: Headache/Pain Mild Scale (1-3) Last Admin: 11/26/23 10:54 Dose: 650 mg Al Hydroxide/Mg Hydroxide (Magnesium Hydrox/Alum Hydrox 30 Ml Oral.Susp) 30 ml PO Q6H PRN PRN Reason: Heartburn/Nausea Aripiprazole (Aripiprazole 5 Mg Tablet) 5 mg PO DAILY KRISTI Last Admin: 11/28/23 08:51 Dose: 5 mg Aripiprazole (Aripiprazole 10 Mg Tablet) 10 mg PO BEDTIME KRISTI Last Admin: 11/27/23 19:43 Dose: 10 mg Hydroxyzine HCl (Hydroxyzine Hcl 25 Mg Tablet) 25 mg PO Q6H PRN PRN Reason: Anxiety Last Admin: 11/27/23 16:30 Dose: 25 mg Lorazepam (Lorazepam 0.5 Mg Tablet) 0.5 mg PO TID KRISTI Last Admin: 11/28/23 08:51 Dose: 0.5 mg Magnesium Hydroxide (Milk Of Magnesia 30 Ml Oral.Susp) 30 ml PO DAILY PRN PRN Reason: Constipation Last Admin: 11/26/23 18:23 Dose: 30 ml Ondansetron HCl (Ondansetron Odt 4 Mg Tab.Rapdis) 4 mg TRANSLINGU Q6H PRN PRN Reason: Nausea and Vomiting Last Admin: 11/22/23 16:44 Dose: 4 mg Trazodone HCl (Trazodone Hcl 50 Mg Tablet) 50 mg PO BEDTIME MRX1 PRN PRN Reason: Insomnia Last Admin: 11/27/23 19:42 Dose: 50 mg Allergies Allergies Allergy/AdvReac Type Severity Reaction Status Date / Time haloperidol AdvReac EPS Verified 11/15/23 12:43 metoprolol AdvReac Diarrhea Verified 10/07/23 23:43 Assessment & Plan Assessment & Plan (1) Schizoaffective disorder: Status: Acute Code(s): F25.9 - Schizoaffective disorder, unspecified (2) 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 11/17 Patient transferred back to psychiatric unit from medical floor. She remains floridly psychotic, with auditory hallucinations that say mean things, paranoid delusions, disorganized, needing one-to-one to guide her around the unit and attend to all ADLs. Cardiopulmonary Technologist consulted with Dr. Ackerman who met with patient on the unit with race and sports book writer and agreed that patient will do best to start ECT as soon as possible. Discussed medication regimen going forward with which he agrees; discussed case with Michelle Gary, hospitalist LAMINE who says she is cleared for ECT and will put in note saying so. Impression: Patient is floridly psychotic and delusional, hardly eating, with very disorganized behavior requiring one-to-one to walk on the unit let alone attend ADLs. Thus far medication trials have been ineffective; she has catatonic like features and a psychotic delirium for which the treatment is ECT which is included in substituted judgment. Will restart Abilify since it may have helped a little however will not have an IM backup if she refuses since it is unclear if Abilify did actually help and less clear that an IM of another antipsychotic will help at all; will continue with the Ativan however will not have an IM backup for similar reasons hospital course: 11/18 pt remains delusional w/ AH; says she broke the law...reports AH. race and sports book writer discussed ECT with her and she says she wants it since it may take away the AH. Eat some food which was encouraging; took some meds but then spit it out 11/19 disorganized and sleeping post ECT Discussed case with outpatient provider Radha Chase who reported that over the past year she started to suspect patient was possibly having hypomanic episodes; she listed various medications that were tried to help with depression anxiety but to little avail. She says at baseline patient is organized, logical clear and friendly 11/20 remains disorganized, psychotic, catatonic however is talking a little more and eating on her own more -taking medications w/out spitting out 11/24/23 continue tx 11/24 reports she's sad, wishses she were ; says mood is not too good. However she says AH is less bothersome which is welcomed; and she is not eating close to regularly. She is tired after ECT but wants to continue 11/25 Still disorganized and with paranoid delusions however unlike before, when patient will ask about if people are dying or if her dixon is dying or if she committed a crime... This time when race and sports book writer says it has not true that her mind is just playing tricks on her, she says okay and seems to briefly accept race and sports book writer's answer. That said she will ask the same question shortly afterwards. She continues to ask when she can get her next ECT treatment. Patient complaining of some lower back pain. Trying to get UA however it has been proving difficult per nursing given patient's disorganization. 11/26 pt post ECT today and says she feels a little wobbly. She continues to report depression but only sometimes wishing she were . Regarding AH only sometimes and no longer thinks she committed crimes, is a rapist, a terrorist or needs to go the police station and...she has no memory of thinking such things. Only sometimes thinks food is poisoned...but not much and eating well. Currently not worried if mom or dixon is unsafe... -had BM today -complains of a little bit of burning sensation when urinates; it was hard to determine if she currently feels and urgency -discussed treatment w/ pt and mom, including abilify, ECT now and future... -continue ECT which seems to be helping; will try to get clean-catch UA but given symptoms will likely start Abx for UTI PLAN: Section 8/8b q15's ECT #5 on 11/28 (COURT ORDERED with substituted judgment; patient can not refuse) -npo change to daily abilify 5mg qam and 10mg qhs (court ordered but will hold off w/ IM back up for now) Lowered to ativan 0.5mg TID (court ordered but will hold off w/ IM back up for now) DC Olanzapine Medication trials: Trileptal: drowsy Depakote: nausea Risperdal Zyprexa: Tachycardic Abilify: Hypotensive Caplyta Vraylar Lamictal: Rash Topamax: No help Zoloft, Prozac, Effexor, Wellbutrin, Cymbalta, BuSpar, Viibryd, Ovelty ? (combination of cough syrup ingredient plus Wellbutrin) Patient educated on: diagnosis, medication risk/benefits and ECT Informed Consent: understands, does not understand and further education needed Reason for continued inpatient stay Substantial Risk for: inability to function Time Spent With Patient Time: Total time managing care of this patient today ____ minutes.
[2023-11-28] MEDS: Ondansetron ODT 4 MG TAB.RAPDIS TRANSLINGU (14:37)
[2023-11-28 18:00] VITALS: BP 132/84; PULSE 125; RESP 18; TEMP 36.9; O2SAT 100
--- NOTE | 2023-11-28 18:43 | PC.NURSE ---
Preeti reported feeling nauseous at 1420. Zofran given with good effect. Preeti reports mom visited her today and brought snacks which included candy, chips and soda. After dinner Preeti went to her room and had an episode of vomiting. This was witnessed and emesis was visible in the toilet. MD amador.
[2023-11-28] MEDS: ARIPiprazole 10 MG TABLET PO (20:01)
[2023-11-29] VITALS (11 sets, daily range): BP systolic 90–125; BP diastolic 53–87; PULSE 71–102; RESP 14–18; TEMP 35.8–36.5; O2SAT 98–100
--- NOTE | 2023-11-29 06:50 | HO.ANESPROP2 ---
[facility] Active Problems Active Problems: All Active Problems Catatonia (Acute) Schizoaffective disorder (Acute) Syncope (Acute) Intellectual disability (Acute) Psychosis (Acute) Major depressive disorder, recurrent episode, severe, with psychosis (Chronic) Major depression (Acute) Auditory hallucinations (Acute) Suicidal ideation (Acute) COVID-19 (Acute) Contraception management (Acute) Vitamin D deficiency (Acute) Vitamin B12 deficiency (Acute) Uses control (Acute) Orthostatic hypotension (Acute) Supraventricular tachycardia by ECG (Acute) Major depression in partial remission (Acute) Left ovarian cyst (Acute) Migraine (Acute) Past Medical History Medical History Schizoaffective disorder Intellectual disability Contraception management Vitamin D deficiency Vitamin B12 deficiency Uses control Hx of ovarian cyst Epigastric abdominal pain Orthostatic hypotension Supraventricular tachycardia by ECG Major depression in partial remission Left ovarian cyst Migraine Family History Family History Mother Bipolar disorder Mental health disorder Family history of problems with anesthesia: No Surgical History Surgical History H/O removal of cyst History of Problems with Anesthesia: No Social History Social History Household Members: Other Household Members Other:: Pt unable to answer questions d/t mental status. Housing: Other Housing Other:: Pt unable to answer questions d/t mental status. Alcohol intake: never Comment: Pt utilizing wheelchair with staff assistance. Patient Tobacco Use Status: Never used Tobacco e-Cigarette/Vaping Use: Never Used Second Hand Smoke Exposure: No Use of substances other than those prescribed or required for medical reasons: Unknown Substance Use Type: Unknown Last Used Substance: Unknown Last Used Substance Other:: Pt unable to answer questions d/t mental status. Currently Displaying Signs/Symptoms of Drug Intoxication Withdrawal: No Other Past Substance Use Problem:: Pt unable to answer questions d/t mental status. Advance Directives: No Advance Directives Information Provided: Yes Do you have thoughts of harming others: None Do you have a plan to hurt others: No Plan How much weight loss: Unsure Patient : No : No Poor oral hygiene: Yes service: No Current occupational status: unemployed Sexual orientation: Unable to collect Cognitive needs: No Hearing needs: No Vision needs: No Meds Allergies Allergy/AdvReac Type Severity Reaction Status Date / Time haloperidol AdvReac EPS Verified 11/15/23 12:43 metoprolol AdvReac Diarrhea Verified 10/07/23 23:43 Active Medications: Current Medications Acetaminophen (Acetaminophen 325 Mg Tablet) 650 mg PO Q6H PRN PRN Reason: Headache/Pain Mild Scale (1-3) Last Admin: 11/26/23 10:54 Dose: 650 mg Al Hydroxide/Mg Hydroxide (Magnesium Hydrox/Alum Hydrox 30 Ml Oral.Susp) 30 ml PO Q6H PRN PRN Reason: Heartburn/Nausea Aripiprazole (Aripiprazole 5 Mg Tablet) 5 mg PO DAILY KRISTI Last Admin: 11/28/23 08:51 Dose: 5 mg Aripiprazole (Aripiprazole 10 Mg Tablet) 10 mg PO BEDTIME KRISTI Last Admin: 11/28/23 20:01 Dose: 10 mg Hydroxyzine HCl (Hydroxyzine Hcl 25 Mg Tablet) 25 mg PO Q6H PRN PRN Reason: Anxiety Last Admin: 11/27/23 16:30 Dose: 25 mg Lactated Ringer's (Lr) 1,000 mls @ 50 mls/hr IVCONT .Q20H KRISTI Lorazepam (Lorazepam 0.5 Mg Tablet) 0.5 mg PO TID KRISTI Last Admin: 11/28/23 22:57 Dose: Not Given Magnesium Hydroxide (Milk Of Magnesia 30 Ml Oral.Susp) 30 ml PO DAILY PRN PRN Reason: Constipation Last Admin: 11/26/23 18:23 Dose: 30 ml Ondansetron HCl (Ondansetron Odt 4 Mg Tab.Rapdis) 4 mg TRANSLINGU Q6H PRN PRN Reason: Nausea and Vomiting Last Admin: 11/28/23 14:37 Dose: 4 mg Trazodone HCl (Trazodone Hcl 50 Mg Tablet) 50 mg PO BEDTIME MRX1 PRN PRN Reason: Insomnia Last Admin: 11/27/23 19:42 Dose: 50 mg Exam Height,Weight and Vital Signs: Weight 65.3 kg Last Vital Signs Temp 97.2 F 11/29/23 06:46 Pulse 71 11/29/23 06:46 Resp 18 11/29/23 06:46 BP 106/58 L 11/29/23 06:46 Pulse Ox 99 11/29/23 06:46 O2 Del Method Room Air 11/29/23 06:46 O2 Flow Rate 2 11/27/23 07:30 Pertinent Lab Results Pertinent Lab Results: Laboratory Tests 11/16/23 11/17/23 11/17/23 19:38 07:27 12:37 WBC 7.0 RBC 4.77 Hgb 12.7 Hct 38.7 MCV 81.1 MCH 26.6 L MCHC 32.8 RDW 16.2 H Plt Count 393 MPV 10.6 Immature Gran % (Auto) 0.3 Neut % (Auto) 61.5 Lymph % (Auto) 22.9 [place] % (Auto) 11.4 H Eos % (Auto) 3.3 Baso % (Auto) 0.6 Lymph # (Auto) 1.6 [place] # (Auto) 0.8 Eos # (Auto) 0.2 Baso # (Auto) 0.0 Abs Immat Gran (auto) 0.02 Absolute Neuts (auto) 4.3 Absolute Nucleated RBC 0.000 Nucleated RBC % (auto) 0.0 Sodium 142 141 Potassium 3.7 3.8 Chloride 109 H 110 H Carbon Dioxide 26 20 L Anion Gap 11 L 15 BUN < 3 L 3 L Creatinine 0.57 0.57 Estim Creat Clear Calc TNP TNP Estimated GFR > 60 > 60 Random Glucose 94 Fasting Glucose 74 Calcium 9.2 D 9.4 Total Bilirubin 0.4 AST 30 ALT 36 H Alkaline Phosphatase 72 Total Protein 6.9 Albumin 3.9 Triglycerides 85 Cholesterol 142 LDL Cholesterol, Calc 73 HDL Cholesterol 52 Urine Color Yellow Urine Appearance Cloudy Urine pH 8.5 Ur Specific [place] 1.015 Urine Protein Negative Urine Glucose (UA) Negative Urine Ketones Negative Urine Blood Negative Urine Nitrite Negative Ur Leukocyte Esterase Moderate (2+) H Urine RBC 0-2 Urine WBC 6-10 H Ur Squamous Epith Cells 11-20 Other Crystals Present Urine Bacteria 2+ Hyaline Casts 0-2 COVID-19 ([facility]IL[facility]) COVID-19 Clin Com 11/21/23 11/27/23 09:29 11:30 WBC RBC Hgb Hct MCV MCH MCHC RDW Plt Count MPV Immature Gran % (Auto) Neut % (Auto) Lymph % (Auto) [place] % (Auto) Eos % (Auto) Baso % (Auto) Lymph # (Auto) [place] # (Auto) Eos # (Auto) Baso # (Auto) Abs Immat Gran (auto) Absolute Neuts (auto) Absolute Nucleated RBC Nucleated RBC % (auto) Sodium Potassium Chloride Carbon Dioxide Anion Gap BUN Creatinine Estim Creat Clear Calc Estimated GFR Random Glucose Fasting Glucose Calcium Total Bilirubin AST ALT Alkaline Phosphatase Total Protein Albumin Triglycerides Cholesterol LDL Cholesterol, Calc HDL Cholesterol Urine Color Yellow Urine Appearance Clear Urine pH 8.5 Ur Specific [place] 1.015 Urine Protein Negative Urine Glucose (UA) Negative Urine Ketones Negative Urine Blood Negative Urine Nitrite Negative Ur Leukocyte Esterase Negative Urine RBC 0-2 Urine WBC 0-5 Ur Squamous Epith Cells 0-2 Other Crystals Urine Bacteria None Seen Hyaline Casts 0-2 COVID-19 (YAMILA) Negative COVID-19 Clin Com See Note Airway Mallampati Class: II TM Dist: >3cm Neck ROM: Full Heart: rrr Lungs: cta Assessment and Plan Assessment Anesthesia Assessment: Anesthesia Plan Discussed and Chart Reviewed Final Anesthetic Review Family History of Problems with Anesthesia: No History of Problems with Anesthesia: No NPO: Yes ASA Class: III Final Preanesthetic Review: No Changes in Pt Med Stat, Meds/Allgs Chart Reviewed and Consent Obtained/Reviewed Patient Risk: Intermediate Procedure Risk: Intermediate Anesthetic Plan Anesthetic Plan: GA Disposition: Standard PACU
--- NOTE | 2023-11-29 07:28 | MHC.SHP ---
Pre-Procedural Eval Section A - 24 Hr Update-Section A only Date of Service: 11/29/23 The patient is an INPATIENT: Yes Changes since office visit: Yes Changes in Medication; No Cold of Flu in the past 2 weeks, No New Medical Problems and No Patient answered all questions The patient has been examined within 24 hours of the surgical procedure. The History & Physical has been completed within 30 days and I have reviewed it.: Yes Section B - Complete if H&P > 30 days Chief Complaint: Catatonia Allergies: Allergies Allergy/AdvReac Type Severity Reaction Status Date / Time haloperidol AdvReac EPS Verified 11/15/23 12:43 metoprolol AdvReac Diarrhea Verified 10/07/23 23:43 Plan I have reviewed the history and physical and performed a pertinent physical examination on my patient. No changes have occurred unless specified. Time Spent With Patient Time: Total time managing care of this patient today ____ minutes.
--- NOTE | 2023-11-29 07:29 | HO.ECTPROC ---
ECT Procedure Note Diagnosis/Treatment Date of Service: 11/29/23 Diagnosis: Catatonia Previous ECT Date: 11/25/23 Current Treatment Number: 4 Treatment: Series Interval Clinical Notes: Pt severely blunted paranoid hallucinating marked thought blocking change to rtlf Time: Total time managing care of this patient today _30___ minutes. ECT Settings Device: THYMATRON DGx Electrode Placement: Right Unilateral Program/Pulse Width: 0.25 Energy Percent: 60 Seizure Duration By EEG (in seconds): 44 Medications Administration General Anesthetic: Etomidate (14) Muscle Relaxant: Succinylcholine (80) Ancillary Medications Analgesics: Torodol - Pre ECT Anti-emetics: Zofran - Pre ECT Miscillaneous Medications: Midazolam (2mg ) Airway Management Airway Management: Bag Mask Ventilation Treatment Recommendations No Changes Recommended: No change Notes: better with bilateral tx Pt Tolerated Procedure w/o Issue: Yes
[2023-11-29] MEDS: ARIPiprazole 5 MG TABLET PO (09:18)
[2023-11-29] MEDS: LORazepam 0.5 MG TABLET PO ×3 (09:18→20:41)
[2023-11-29] MEDS: Acetaminophen 325 MG TABLET 650 MG PO ×2 (09:18→17:26)
[2023-11-29] MEDS: Magnesium Hydrox/Alum Hydrox 30 ML ORAL.SUSP PO (14:35)
--- NOTE | 2023-11-29 18:50 | P.PNPSI_ITS ---
Subjective Subjective Date of Service: 11/29/23 Reason For Visit: Catatonia Interim History: Met with patient; discussed with team significantly better today. talking in full sentences, logical, organized. does not remember most of her delusional thinking. agrees with treatment plan Mental Status Exam Mental Status Exam Narrative: Pt is alert and oriented; behavior is cooperative, friendly and calm; patient is not in distress; dressed in casual attire with much improved grooming; mood is described as good and affect congruent, brighter, naturally expressive; eye contact appropriate; Speech is normal rate, volume and prosody and not pressured; no psychomotor agitation/retardation present; thought process is organized and goal directed; Thought content is on tx; otherwise pertinent to relevant topics and without any delusional content, paranoid ideations or grandiosity; denies any SI/HI. AH minimal. Patients insight and judgment appear intact. Diagnostics Vital Signs (24Hr): Vital Signs - 24 hr 11/29/23 06:46 11/29/23 07:42 11/29/23 07:47 Temperature 97.2 F 97.7 F Pulse Rate 71 92 96 Respiratory Rate 18 14 17 Blood Pressure 106/58 L 116/64 117/78 Pulse Oximetry 99 100 99 Oxygen Delivery Method Room Air Nasal Cannula with ETCO2 Nasal Cannula with ETCO2 Oxygen Flow Rate 2 2 11/29/23 07:52 11/29/23 07:57 11/29/23 08:12 Temperature Pulse Rate 86 86 73 Respiratory Rate 17 17 16 Blood Pressure 113/54 L 113/54 L 90/53 L Pulse Oximetry 99 100 100 Oxygen Delivery Method Nasal Cannula with ETCO2 Nasal Cannula with ETCO2 Nasal Cannula with ETCO2 Oxygen Flow Rate 2 2 2 11/29/23 08:27 11/29/23 08:45 11/29/23 09:00 Temperature 97.0 F 97.0 F 97.5 F Pulse Rate 82 80 85 Respiratory Rate 17 16 18 Blood Pressure 97/61 101/64 121/87 Pulse Oximetry 98 98 99 Oxygen Delivery Method Room Air Room Air Room Air Oxygen Flow Rate 11/29/23 09:23 Temperature 97.5 F Pulse Rate 85 Respiratory Rate 18 Blood Pressure 121/87 Pulse Oximetry 99 Oxygen Delivery Method Oxygen Flow Rate Labs 11/16/23 19:38 11/17/23 07:27 Medications Medications Current Medications Acetaminophen (Acetaminophen 325 Mg Tablet) 650 mg PO Q6H PRN PRN Reason: Headache/Pain Mild Scale (1-3) Last Admin: 11/29/23 17:26 Dose: 650 mg Al Hydroxide/Mg Hydroxide (Magnesium Hydrox/Alum Hydrox 30 Ml Oral.Susp) 30 ml PO Q6H PRN PRN Reason: Heartburn/Nausea Last Admin: 11/29/23 14:35 Dose: 30 ml Aripiprazole (Aripiprazole 5 Mg Tablet) 5 mg PO DAILY [facility] Last Admin: 11/29/23 09:18 Dose: 5 mg Aripiprazole (Aripiprazole 10 Mg Tablet) 10 mg PO BEDTIME [facility] Last Admin: 11/28/23 20:01 Dose: 10 mg Hydroxyzine HCl (Hydroxyzine Hcl 25 Mg Tablet) 25 mg PO Q6H PRN PRN Reason: Anxiety Last Admin: 11/27/23 16:30 Dose: 25 mg Lactated Ringer's (Lr) 1,000 mls @ 50 mls/hr IVCONT .Q20H [facility] Last Admin: 11/29/23 09:28 Dose: Not Given Lorazepam (Lorazepam 0.5 Mg Tablet) 0.5 mg PO TID [facility] Last Admin: 11/29/23 14:35 Dose: 0.5 mg Magnesium Hydroxide (Milk Of Magnesia 30 Ml Oral.Susp) 30 ml PO DAILY PRN PRN Reason: Constipation Last Admin: 11/26/23 18:23 Dose: 30 ml Ondansetron HCl (Ondansetron Odt 4 Mg Tab.Rapdis) 4 mg TRANSLINGU Q6H PRN PRN Reason: Nausea and Vomiting Last Admin: 11/28/23 14:37 Dose: 4 mg Trazodone HCl (Trazodone Hcl 50 Mg Tablet) 50 mg PO BEDTIME MRX1 PRN PRN Reason: Insomnia Last Admin: 11/27/23 19:42 Dose: 50 mg Allergies Allergies Allergy/AdvReac Type Severity Reaction Status Date / Time haloperidol AdvReac EPS Verified 11/15/23 12:43 metoprolol AdvReac Diarrhea Verified 10/07/23 23:43 Assessment & Plan Assessment & Plan (1) Schizoaffective disorder: Status: Acute Code(s): F25.9 - Schizoaffective disorder, unspecified (2) 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 11/17 Patient transferred back to psychiatric unit from medical floor. She remains floridly psychotic, with auditory hallucinations that say mean things, paranoid delusions, disorganized, needing one-to-one to guide her around the unit and attend to all ADLs. Sales Agent Protective Service consulted with Dr. Ackerman who met with patient on the unit with typewriter assembly and parts inspector and agreed that patient will do best to start ECT as soon as possible. Discussed medication regimen going forward with which he agrees; discussed case with Michelle Gary hospitalist LAMINE who says she is cleared for ECT and will put in note saying so. Impression: Patient is floridly psychotic and delusional, hardly eating, with very disorganized behavior requiring one-to-one to walk on the unit let alone attend ADLs. Thus far medication trials have been ineffective; she has catatonic like features and a psychotic delirium for which the treatment is ECT which is included in substituted judgment. Will restart Abilify since it may have helped a little however will not have an IM backup if she refuses since it is unclear if Abilify did actually help and less clear that an IM of another antipsychotic will help at all; will continue with the Ativan however will not have an IM backup for similar reasons hospital course: 11/18 pt remains delusional w/ AH; says she broke the law...reports AH. typewriter assembly and parts inspector discussed ECT with her and she says she wants it since it may take away the AH. Eat some food which was encouraging; took some meds but then spit it out 11/19 disorganized and sleeping post ECT Discussed case with outpatient provider Radha Chase who reported that over the past year she started to suspect patient was possibly having hypomanic episodes; she listed various medications that were tried to help with depression anxiety but to little avail. She says at baseline patient is organized, logical clear and friendly 11/20 remains disorganized, psychotic, catatonic however is talking a little more and eating on her own more -taking medications w/out spitting out 11/24/23 continue tx 11/24 reports she's sad, wishses she were ; says mood is not too good. However she says AH is less bothersome which is welcomed; and she is not eating close to regularly. She is tired after ECT but wants to continue 11/25 Still disorganized and with paranoid delusions however unlike before, when patient will ask about if people are dying or if her dixon is dying or if she committed a crime... This time when typewriter assembly and parts inspector says it has not true that her mind is just playing tricks on her, she says okay and seems to briefly accept typewriter assembly and parts inspector's answer. That said she will ask the same question shortly afterwards. She continues to ask when she can get her next ECT treatment. Patient complaining of some lower back pain. Trying to get UA however it has been proving difficult per nursing given patient's disorganization. 11/26 pt post ECT today and says she feels a little wobbly. She continues to report depression but only sometimes wishing she were . Regarding AH only sometimes and no longer thinks she committed crimes, is a rapist, a terrorist or needs to go the police station and...she has no memory of thinking such things. Only sometimes thinks food is poisoned...but not much and eating well. Currently not worried if mom or dixon is unsafe... -had BM today -complains of a little bit of burning sensation when urinates; it was hard to determine if she currently feels and urgency -discussed treatment w/ pt and mom, including abilify, ECT now and future... -continue ECT which seems to be helping; will try to get clean-catch UA but given symptoms will likely start Abx for UTI 11/28 significantly better today. talking in full sentences, logical, organized. does not remember most of her delusional thinking. agrees with treatment plan -will require several more ECT treatments to prevent return of psychosis PLAN: Section 8/8b q15's ECT #5 on 11/28 (COURT ORDERED with substituted judgment; patient can not refuse) -npo change to daily abilify 5mg qam and 10mg qhs (court ordered but will hold off w/ IM back up for now) Lowered to ativan 0.5mg TID (court ordered but will hold off w/ IM back up for now) DC Olanzapine Medication trials: Trileptal: drowsy Depakote: nausea Risperdal Zyprexa: Tachycardic Abilify: Hypotensive Caplyta Vraylar Lamictal: Rash Topamax: No help Zoloft, Prozac, Effexor, Wellbutrin, Cymbalta, BuSpar, Viibryd, Ovelty ? (combination of cough syrup ingredient plus Wellbutrin) Patient educated on: diagnosis, medication risk/benefits and ECT Informed Consent: understands Reason for continued inpatient stay Substantial Risk for: rapid decompensation Time Spent With Patient Time: Total time managing care of this patient today ____ minutes.
[2023-11-29] MEDS: ARIPiprazole 10 MG TABLET PO (20:41)
--- NOTE | 2023-11-30 | ECG_ITS ---
Test Reason : chest pain Blood Pressure : / mmHG Vent. Rate : 097 BPM Atrial Rate : 097 BPM P-R Int : 160 ms QRS Dur : 080 ms QT Int : 332 ms P-R-T Axes : 044 066 056 degrees QTc Int : 421 ms Normal sinus rhythm with sinus arrhythmia Normal ECG When compared with ECG of 30-NOV-2023 18:11, No significant change was found Referred By: Sushila Lemus Electronically Signed By:Aníbal Montez
--- NOTE | 2023-11-30 | ECG_ITS ---
Test Reason : chest pain Blood Pressure : / mmHG Vent. Rate : 086 BPM Atrial Rate : 086 BPM P-R Int : 204 ms QRS Dur : 090 ms QT Int : 364 ms P-R-T Axes : 000 060 063 degrees QTc Int : 435 ms Poor data quality Normal sinus rhythm with sinus arrhythmia When compared with ECG of 10-NOV-2023 19:53, Poor data quality in current ECG precludes serial comparison Referred By: Sushila Lemus Electronically Signed By:Aníbal Montez
[2023-11-30] MEDS: LORazepam 0.5 MG TABLET PO ×4 (08:39→20:28)
[2023-11-30] MEDS: ARIPiprazole 5 MG TABLET PO (08:40)
[2023-11-30 08:44] VITALS: BP 115/75; PULSE 96; RESP 17; TEMP 36.6; O2SAT 100
[2023-11-30] MEDS: Acetaminophen 325 MG TABLET 650 MG PO (12:08)
--- NOTE | 2023-11-30 12:45 | PC.NURSE ---
Pt walking in halls, pleasant and talking with staff. She reports she had a good visit with her mom and boyfriend. Overall brighter affect and mood. Cooperative with meds and eating meals in kitchen with peers.
[2023-11-30 16:34] VITALS: BP 132/84; PULSE 119; RESP 20; TEMP 36.9; O2SAT 100
[2023-11-30 17:57] VITALS: BP 128/76; PULSE 104; RESP 20; O2SAT 98
[2023-11-30 18:20] VITALS: BP 135/77; PULSE 101; RESP 21; O2SAT 98
--- NOTE | 2023-11-30 18:40 | PC.NURSE ---
Preeti started to c/o chest pain in center of sternum rating it 6/10 and as achy . Pain was not reproducible or radiating in nature. VSS, Dr Lemus made aware and EGK/stat labs ordered. Dr Mary burns hospitalist tigkartik text and sent picture of EKG. Will repeat as poor quality noted. Pt's mother reports this has happened before and Preeti went to the ER at those times and she believes it was related to her sodium level being off. Pt reports feeling some anxiety and ordered for ativan 0.5 mg. Hospitalist PA up to see and examine Preeti. Repeat EKG seen and quality better.
[2023-11-30 19:06] LABS: Anion Gap 16 (12-20); Blood Urea Nitrogen 7 mg/dL (9-16); Calcium 9.7 mg/dL (8.4-10.2); Carbon Dioxide 20 mmol/L (22-29); Chloride 108 mmol/L (96-108); Estimated Glomerular Filt Rate > 60; Glucose Random 77 mg/dL (60-115); Potassium 4.5 mmol/L (3.3-5.1); Sodium 139 mmol/L (135-145)
[2023-11-30 19:18] LABS: Troponin-I High Sensitivity < 2.7 ng/L (<3.5-17.0)
[2023-11-30] MEDS: ARIPiprazole 10 MG TABLET PO (20:28)
--- NOTE | 2023-11-30 21:55 | HO.PSYCHPN ---
Subjective Subjective Date of Service: 11/30/23 Reason For Visit: Catatonia Subjective Notes: Section 8 Interim History: Doing better...hoping to get out soon Patient seen intermittently on unit, tv room this AM. Mostly keeps to self. some brightening on approach. No behavioral issues. Identifies reason for admission: I was hearing things Denies any further AH. Mood is good, not depressed . Denies SI/HI/AH/VH. Reports good sleep last night, is eating, drinking without issue. Has been undergoing ECT, no complaints. Visiting with boyfriend this morning. Medication Compliance: Yes Side effects from medications: No Mental Status Exam Mental Status Exam Narrative: Pt is alert and oriented; behavior is cooperative, friendly and calm; patient is not in distress; dressed in casual attire with much improved grooming; mood is described as good and affect congruent, brighter, naturally expressive; eye contact appropriate; Speech is normal rate, volume and prosody and not pressured; no psychomotor agitation/retardation present; thought process is organized and goal directed; Thought content is on tx; otherwise pertinent to relevant topics and without any delusional content, paranoid ideations or grandiosity; denies any SI/HI. AH minimal. Patients insight and judgment appear intact. Diagnostics Vital Signs (24Hr): Vital Signs - 24 hr 11/30/23 08:44 11/30/23 16:34 11/30/23 17:57 Temperature 97.8 F 98.5 F Pulse Rate 96 119 H 104 H Respiratory Rate 17 20 20 Blood Pressure 115/75 132/84 128/76 Pulse Oximetry 100 100 98 Oxygen Delivery Method Room Air Room Air Room Air 11/30/23 18:20 Temperature Pulse Rate 101 H Respiratory Rate 21 H Blood Pressure 135/77 Pulse Oximetry 98 Oxygen Delivery Method Room Air Labs 11/16/23 19:38 11/30/23 18:36 Labs: Laboratory Results - last 48 hr 11/30/23 18:36 Sodium 139 Potassium 4.5 Chloride 108 Carbon Dioxide 20 L Anion Gap 16 BUN 7 L Creatinine 0.68 Estim Creat Clear Calc TNP Estimated GFR > 60 Random Glucose 77 Calcium 9.7 Troponin I High Sens < 2.7 Medications Medications Current Medications Acetaminophen (Acetaminophen 325 Mg Tablet) 650 mg PO Q6H PRN PRN Reason: Headache/Pain Mild Scale (1-3) Last Admin: 11/30/23 12:08 Dose: 650 mg Al Hydroxide/Mg Hydroxide (Magnesium Hydrox/Alum Hydrox 30 Ml Oral.Susp) 30 ml PO Q6H PRN PRN Reason: Heartburn/Nausea Last Admin: 11/29/23 14:35 Dose: 30 ml Aripiprazole (Aripiprazole 5 Mg Tablet) 5 mg PO DAILY [facility] Last Admin: 11/30/23 08:40 Dose: 5 mg Aripiprazole (Aripiprazole 10 Mg Tablet) 10 mg PO BEDTIME [facility] Last Admin: 11/30/23 20:28 Dose: 10 mg Hydroxyzine HCl (Hydroxyzine Hcl 25 Mg Tablet) 25 mg PO Q6H PRN PRN Reason: Anxiety Last Admin: 11/27/23 16:30 Dose: 25 mg Lactated Ringer's (Lr) 1,000 mls @ 50 mls/hr IVCONT .Q20H [facility] Last Admin: 11/30/23 01:54 Dose: Not Given Lorazepam (Lorazepam 0.5 Mg Tablet) 0.5 mg PO TID [facility] Last Admin: 11/30/23 20:28 Dose: 0.5 mg Magnesium Hydroxide (Milk Of Magnesia 30 Ml Oral.Susp) 30 ml PO DAILY PRN PRN Reason: Constipation Last Admin: 11/26/23 18:23 Dose: 30 ml Ondansetron HCl (Ondansetron Odt 4 Mg Tab.Rapdis) 4 mg TRANSLINGU Q6H PRN PRN Reason: Nausea and Vomiting Last Admin: 11/28/23 14:37 Dose: 4 mg Trazodone HCl (Trazodone Hcl 50 Mg Tablet) 50 mg PO BEDTIME MRX1 PRN PRN Reason: Insomnia Last Admin: 11/27/23 19:42 Dose: 50 mg Allergies Allergies Allergy/AdvReac Type Severity Reaction Status Date / Time haloperidol AdvReac EPS Verified 11/15/23 12:43 metoprolol AdvReac Diarrhea Verified 10/07/23 23:43 Assessment & Plan Assessment & Plan (1) Schizoaffective disorder: Status: Acute Code(s): F25.9 - Schizoaffective disorder, unspecified (2) 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 11/17 Patient transferred back to psychiatric unit from medical floor. She remains floridly psychotic, with auditory hallucinations that say mean things, paranoid delusions, disorganized, needing one-to-one to guide her around the unit and attend to all ADLs. Controller Repairer And Tester consulted with Dr. Ackerman who met with patient on the unit with information writer and agreed that patient will do best to start ECT as soon as possible. Discussed medication regimen going forward with which he agrees; discussed case with Michelle Gary, hospitalist LAMINE who says she is cleared for ECT and will put in note saying so. Impression: Patient is floridly psychotic and delusional, hardly eating, with very disorganized behavior requiring one-to-one to walk on the unit let alone attend ADLs. Thus far medication trials have been ineffective; she has catatonic like features and a psychotic delirium for which the treatment is ECT which is included in substituted judgment. Will restart Abilify since it may have helped a little however will not have an IM backup if she refuses since it is unclear if Abilify did actually help and less clear that an IM of another antipsychotic will help at all; will continue with the Ativan however will not have an IM backup for similar reasons hospital course: 11/18 pt remains delusional w/ AH; says she broke the law...reports AH. information writer discussed ECT with her and she says she wants it since it may take away the AH. Eat some food which was encouraging; took some meds but then spit it out 11/19 disorganized and sleeping post ECT Discussed case with outpatient provider Radha Chase who reported that over the past year she started to suspect patient was possibly having hypomanic episodes; she listed various medications that were tried to help with depression anxiety but to little avail. She says at baseline patient is organized, logical clear and friendly 11/20 remains disorganized, psychotic, catatonic however is talking a little more and eating on her own more -taking medications w/out spitting out 11/24/23 continue tx 11/24 reports she's sad, wishses she were ; says mood is not too good. However she says AH is less bothersome which is welcomed; and she is not eating close to regularly. She is tired after ECT but wants to continue 11/25 Still disorganized and with paranoid delusions however unlike before, when patient will ask about if people are dying or if her dixon is dying or if she committed a crime... This time when information writer says it has not true that her mind is just playing tricks on her, she says okay and seems to briefly accept information writer's answer. That said she will ask the same question shortly afterwards. She continues to ask when she can get her next ECT treatment. Patient complaining of some lower back pain. Trying to get UA however it has been proving difficult per nursing given patient's disorganization. 11/26 pt post ECT today and says she feels a little wobbly. She continues to report depression but only sometimes wishing she were . Regarding AH only sometimes and no longer thinks she committed crimes, is a rapist, a terrorist or needs to go the police station and...she has no memory of thinking such things. Only sometimes thinks food is poisoned...but not much and eating well. Currently not worried if mom or dixon is unsafe... -had BM today -complains of a little bit of burning sensation when urinates; it was hard to determine if she currently feels and urgency -discussed treatment w/ pt and mom, including abilify, ECT now and future... -continue ECT which seems to be helping; will try to get clean-catch UA but given symptoms will likely start Abx for UTI 11/28 significantly better today. talking in full sentences, logical, organized. does not remember most of her delusional thinking. agrees with treatment plan -will require several more ECT treatments to prevent return of psychosis 11/29 cont w progress, eating better now, denies issues, continue treatment plan PLAN: Section 8/8b q15's ECT #5 on 11/28 (COURT ORDERED with substituted judgment; patient can not refuse) -npo change to daily abilify 5mg qam and 10mg qhs (court ordered but will hold off w/ IM back up for now) Lowered to ativan 0.5mg TID (court ordered but will hold off w/ IM back up for now) DC Olanzapine Medication trials: Trileptal: drowsy Depakote: nausea Risperdal Zyprexa: Tachycardic Abilify: Hypotensive Caplyta Vraylar Lamictal: Rash Topamax: No help Zoloft, Prozac, Effexor, Wellbutrin, Cymbalta, BuSpar, Viibryd, Ovelty ? (combination of cough syrup ingredient plus Wellbutrin) Reason for continued inpatient stay Substantial Risk for: inability to function, rapid decompensation and med/psych decompensation Time Spent With Patient Time: Total time managing care of this patient today ____ minutes.
--- NOTE | 2023-12-01 | ECG_ITS ---
Test Reason : check qtc Blood Pressure : / mmHG Vent. Rate : 100 BPM Atrial Rate : 100 BPM P-R Int : 154 ms QRS Dur : 082 ms QT Int : 338 ms P-R-T Axes : 040 067 061 degrees QTc Int : 436 ms Normal sinus rhythm Normal ECG When compared with ECG of 30-NOV-2023 18:35, No significant change was found Referred By: Hossein Smith Electronically Signed By:LEN EDWARDS
[2023-12-01] MEDS: Acetaminophen 325 MG TABLET 650 MG PO ×2 (06:25→14:21)
[2023-12-01 08:11] VITALS: BP 114/66; PULSE 121; RESP 19; TEMP 36.9; O2SAT 99
[2023-12-01] MEDS: ARIPiprazole 5 MG TABLET PO (08:32)
[2023-12-01] MEDS: LORazepam 0.5 MG TABLET PO ×4 (08:32→21:47)
--- NOTE | 2023-12-01 11:22 | PM.EVENT ---
Event Note Date of Service: 11/30/23 Event Note: Pt is a 23-year-old female with a PMH significant for anxiety, depression, GERD,?chronic tachycardia, and likely cognitive delay who is seen and evaluated at approximately 18:35 on 11/30/2023 for chest pain. Patient reports it has been experiencing intermittent sharp, stabbing chest pain for the past 20-30 minutes. Centrally located in her chest, nonradiating. Also reports her breathing feels ?off? and feels like her heart is racing. Denies feeling constant chest pressure or that pain is a burning or gnawing sensation. States she has been experiencing similar symptoms intermittently the past 2+ years, and has had extensive negative cardiac workup in the past including multiple EKGs, troponin draws, echocardiograms, wearing a Holter monitor, and tilt-table testing. Pt was recently admitted to the hospital floor on telemetry for nearing a week. Repeat EKG this evening showed normal sinus rhythm of 97 without evidence of significant ischemic changes similar previous EKGs. Blood work grossly unremarkable with no significant electrolyte abnormalities and negative troponin. Patient's symptoms likely secondary to anxiety and/disorder continue plan as per Psychiatry. No further workup or intervention for chest pain indicated at this time. Time Spent With Patient Time: Total time managing care of this patient today ____ minutes.
[2023-12-01] MEDS: hydrOXYzine HCL 25 MG TABLET PO (13:16)
[2023-12-01] MEDS: Magnesium Hydrox/Alum Hydrox 30 ML ORAL.SUSP PO (13:16)
[2023-12-01 14:27] VITALS: BP 132/75; PULSE 102; RESP 20; O2SAT 97
[2023-12-01] MEDS: Propranolol HCL 10 MG TABLET PO (14:56)
--- NOTE | 2023-12-01 15:19 | PC.NURSE ---
Pt had c/o chest discomfort, described as tightness, and was seen holding her hand over her chest. Notified Dr. Landa and obtained order for EKG, ativan 0.5 mg po once and Propanolol 10 mg po once. Medicated as per MAR and pt reports the chest tightness is better . Discussed with her that anxiety can manifest as chest tightness and discomfort. She also spoke to her boyfriend and said she felt a little better afterwards. EKG done and shown to Dr Landa.
--- NOTE | 2023-12-01 16:23 | PC.NURSE ---
Addendum entered by Ashwini Lopez RN 12/01/23 18:30: Around 6pm, Preeti reported to TW that she was feeling restless and her chest was feeling tight/painful when TW applied gentle pressure. She also reported she was feeling achy in her feet and all over. Notified Dr Lemus and order for Ativan 1 mg entered/given. Pt declined to sit down and rest feet stating she was feeling restless. Discussing possibility of starting clonidine for possible opiate withdrawal as she was previously on Ativan 1 mg TID and now on Ativan 0.5 mg TID. Original Note: pt reports chest discomfort has resolved and now her feet just ache. Will continue to monitor
[2023-12-01] MEDS: LORazepam 1 MG TABLET PO (18:10)
[2023-12-01 18:14] VITALS: BP 120/80; PULSE 104; RESP 19; TEMP 36.9; O2SAT 99
[2023-12-01 18:52] VITALS: BP 120/74; PULSE 111; RESP 19; O2SAT 98
[2023-12-01] MEDS: cloNIDine HCL 0.1 MG TABLET PO (18:54)
--- NOTE | 2023-12-01 21:23 | HO.PHPPROGNO ---
Subjective Subjective Date of Service: 12/01/23 Reason For Visit: Catatonia Diagnostics Vital Signs (24Hr): Vital Signs - 24 hr 12/01/23 08:11 12/01/23 14:27 12/01/23 18:14 Temperature 98.5 F 98.4 F Pulse Rate 121 H 102 H 104 H Respiratory Rate 19 20 19 Blood Pressure 114/66 132/75 120/80 Pulse Oximetry 99 97 99 Oxygen Delivery Method Room Air Room Air Room Air 12/01/23 18:52 Temperature Pulse Rate 111 H Respiratory Rate 19 Blood Pressure 120/74 Pulse Oximetry 98 Oxygen Delivery Method Room Air Labs 11/16/23 19:38 11/30/23 18:36 Labs: Laboratory Results - last 48 hr 11/30/23 18:36 Sodium 139 Potassium 4.5 Chloride 108 Carbon Dioxide 20 L Anion Gap 16 BUN 7 L Creatinine 0.68 Estim Creat Clear Calc TNP Estimated GFR > 60 Random Glucose 77 Calcium 9.7 Troponin I High Sens < 2.7 Assessment & Plan Certification I certify that partial hospital treatment is medically necessary due to the symptoms and problems resulting from the patient's mental illness and the failure to treat the patient at the partial hospital level of care would likely result in the patient requiring inpatient psychiatric care which could not be prevented at a less intensive level of care. Total time managing care of this patient today ____ minutes. Discharge Plan Discharge Referrals: [facility] [Primary Care Provider] - 1 Week Print Language: Welsh
[2023-12-01] MEDS: traZODone HCL 50 MG TABLET PO (21:47)
[2023-12-01] MEDS: ARIPiprazole 10 MG TABLET PO (21:47)
--- NOTE | 2023-12-01 22:50 | P.PNPSI_ITS ---
Subjective Subjective Date of Service: 12/01/23 Reason For Visit: Catatonia Interim History: SATURDAY: Doing better...hoping to get out soon Patient seen intermittently on unit, tv room. Mostly keeps to self. some brightening on approach. No behavioral issues. Identifies reason for admission: I was hearing things Denies any further AH. Mood is good, not depressed . Denies SI/HI/AH/VH. Reports good sleep last night, is eating, drinking without issue. Boyfriend visited this morning. TODAY: Met with patient. Reviewed with nursing staff. Patient reports I really really want to go home . They report mood is stable, they report they are good, I'm doing better . She does present as subdued, quiet but pleasant perhaps with a slight dythymic or anxious edge. She had had an episode of chest pain yesterday for which an EKG was ordered as well as hospitalist consult. Today she had another episode of chest pain, and again an EKG was ordered and compared. Consult note from yesterday was later entered today. Examination from yesterday, including lab work and EKG fIndings were negative for concerns and med team feels that chest pain is likely caused by anxiety. Patient has been given one time dose of lorazepam with partial effect. Presently she is feeling better. She is mostly focused on wanting to get discharged and go home. She is not sure why chest pain occurs, she says she is not aware if it correlates with anxiety. She denies any SI, HI, AH, VH. Review of Systems Review of Systems Yes all other systems are reviewed and are negative Mental Status Exam Mental Status Exam Narrative: Pt is alert and oriented; behavior is cooperative, friendly and calm; patient is not in distress; dressed in casual attire with much improved grooming; mood is described as good and affect congruent, brighter, naturally expressive; eye contact appropriate; Speech is normal rate, volume and prosody and not pressured; no psychomotor agitation/retardation present; thought process is organized and goal directed; Thought content is on tx; otherwise pertinent to relevant topics and without any delusional content, paranoid ideations or grandiosity; denies any SI/HI. AH minimal. Patients insight and judgment appear intact. Patient Appearance: Fatigued Patient Orientation: Person and Place Level of Consciousness: Alert Patient Behavior: Appropriate, Dependent, Talkative and Good Eye Contact Mood Description: Apprehensive Affect Description: Apprehensive Patient Cognition Impaired: No Ability to Follow Directions: Good Speech Pattern: Spontaneous Speech and Soft-Spoken Memory Description: Remote Impaired Diagnostics Vital Signs (24Hr): Vital Signs - 24 hr 12/01/23 08:11 12/01/23 14:27 12/01/23 18:14 Temperature 98.5 F 98.4 F Pulse Rate 121 H 102 H 104 H Respiratory Rate 19 20 19 Blood Pressure 114/66 132/75 120/80 Pulse Oximetry 99 97 99 Oxygen Delivery Method Room Air Room Air Room Air 12/01/23 18:52 Temperature Pulse Rate 111 H Respiratory Rate 19 Blood Pressure 120/74 Pulse Oximetry 98 Oxygen Delivery Method Room Air Labs 11/16/23 19:38 11/30/23 18:36 Labs: Laboratory Results - last 48 hr 11/30/23 18:36 Sodium 139 Potassium 4.5 Chloride 108 Carbon Dioxide 20 L Anion Gap 16 BUN 7 L Creatinine 0.68 Estim Creat Clear Calc TNP Estimated GFR > 60 Random Glucose 77 Calcium 9.7 Troponin I High Sens < 2.7 Medications Medications Current Medications Acetaminophen (Acetaminophen 325 Mg Tablet) 650 mg PO Q6H PRN PRN Reason: Headache/Pain Mild Scale (1-3) Last Admin: 12/01/23 14:21 Dose: 650 mg Al Hydroxide/Mg Hydroxide (Magnesium Hydrox/Alum Hydrox 30 Ml Oral.Susp) 30 ml PO Q6H PRN PRN Reason: Heartburn/Nausea Last Admin: 12/01/23 13:16 Dose: 30 ml Aripiprazole (Aripiprazole 5 Mg Tablet) 5 mg PO DAILY [facility] Last Admin: 12/01/23 08:32 Dose: 5 mg Aripiprazole (Aripiprazole 10 Mg Tablet) 10 mg PO BEDTIME [facility] Last Admin: 12/01/23 21:47 Dose: 10 mg Hydroxyzine HCl (Hydroxyzine Hcl 25 Mg Tablet) 25 mg PO Q6H PRN PRN Reason: Anxiety Last Admin: 12/01/23 13:16 Dose: 25 mg Lorazepam (Lorazepam 0.5 Mg Tablet) 0.5 mg PO TID [facility] Last Admin: 12/01/23 21:47 Dose: 0.5 mg Magnesium Hydroxide (Milk Of Magnesia 30 Ml Oral.Susp) 30 ml PO DAILY PRN PRN Reason: Constipation Last Admin: 11/26/23 18:23 Dose: 30 ml Ondansetron HCl (Ondansetron Odt 4 Mg Tab.Rapdis) 4 mg TRANSLINGU Q6H PRN PRN Reason: Nausea and Vomiting Last Admin: 11/28/23 14:37 Dose: 4 mg Trazodone HCl (Trazodone Hcl 50 Mg Tablet) 50 mg PO BEDTIME MRX1 PRN PRN Reason: Insomnia Last Admin: 12/01/23 21:47 Dose: 50 mg Allergies Allergies Allergy/AdvReac Type Severity Reaction Status Date / Time haloperidol AdvReac EPS Verified 11/15/23 12:43 metoprolol AdvReac Diarrhea Verified 10/07/23 23:43 Assessment & Plan Assessment & Plan (1) Schizoaffective disorder: Status: Acute Code(s): F25.9 - Schizoaffective disorder, unspecified (2) 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 11/17 Patient transferred back to psychiatric unit from medical floor. She remains floridly psychotic, with auditory hallucinations that say mean things, paranoid delusions, disorganized, needing one-to-one to guide her around the unit and attend to all ADLs. Engine Dispatcher consulted with Dr. Ackerman who met with patient on the unit with flex o writer operator and agreed that patient will do best to start ECT as soon as possible. Discussed medication regimen going forward with which he agrees; discussed case with Michelle Gary, hospitalist LAMINE who says she is cleared for ECT and will put in note saying so. Impression: Patient is floridly psychotic and delusional, hardly eating, with very disorganized behavior requiring one-to-one to walk on the unit let alone attend ADLs. Thus far medication trials have been ineffective; she has catatonic like features and a psychotic delirium for which the treatment is ECT which is included in substituted judgment. Will restart Abilify since it may have helped a little however will not have an IM backup if she refuses since it is unclear if Abilify did actually help and less clear that an IM of another antipsychotic will help at all; will continue with the Ativan however will not have an IM backup for similar reasons hospital course: 11/18 pt remains delusional w/ AH; says she broke the law...reports AH. flex o writer operator discussed ECT with her and she says she wants it since it may take away the AH. Eat some food which was encouraging; took some meds but then spit it out 11/19 disorganized and sleeping post ECT Discussed case with outpatient provider Radha Chase who reported that over the past year she started to suspect patient was possibly having hypomanic episodes; she listed various medications that were tried to help with depression anxiety but to little avail. She says at baseline patient is organized, logical clear and friendly 11/20 remains disorganized, psychotic, catatonic however is talking a little more and eating on her own more -taking medications w/out spitting out 11/24/23 continue tx 11/24 reports she's sad, wishses she were ; says mood is not too good. However she says AH is less bothersome which is welcomed; and she is not eating close to regularly. She is tired after ECT but wants to continue 11/25 Still disorganized and with paranoid delusions however unlike before, when patient will ask about if people are dying or if her dixon is dying or if she committed a crime... This time when flex o writer operator says it has not true that her mind is just playing tricks on her, she says okay and seems to briefly accept flex o writer operator's answer. That said she will ask the same question shortly afterwards. She continues to ask when she can get her next ECT treatment. Patient complaining of some lower back pain. Trying to get UA however it has been proving difficult per nursing given patient's disorganization. 11/26 pt post ECT today and says she feels a little wobbly. She continues to report depression but only sometimes wishing she were . Regarding AH only sometimes and no longer thinks she committed crimes, is a rapist, a terrorist or needs to go the police station and...she has no memory of thinking such things. Only sometimes thinks food is poisoned...but not much and eating well. Currently not worried if mom or dixon is unsafe... -had BM today -complains of a little bit of burning sensation when urinates; it was hard to determine if she currently feels and urgency -discussed treatment w/ pt and mom, including abilify, ECT now and future... -continue ECT which seems to be helping; will try to get clean-catch UA but given symptoms will likely start Abx for UTI 11/28 significantly better today. talking in full sentences, logical, organized. does not remember most of her delusional thinking. agrees with treatment plan -will require several more ECT treatments to prevent return of psychosis 11/29 med consult for reoccurring CP, cont trtmt plan 11/30 per consult no significant findings, will cont to trt for anxiety, cont trtmt plan PLAN: Section 8/ q15's ECT #5 on 11/28 (COURT ORDERED with substituted judgment; patient can not refuse) -npo change to daily abilify 5mg qam and 10mg qhs (court ordered but will hold off w/ IM back up for now) Lowered to ativan 0.5mg TID (court ordered but will hold off w/ IM back up for now) DC Olanzapine Medication trials: Trileptal: drowsy Depakote: nausea Risperdal Zyprexa: Tachycardic Abilify: Hypotensive Caplyta Vraylar Lamictal: Rash Topamax: No help Zoloft, Prozac, Effexor, Wellbutrin, Cymbalta, BuSpar, Viibryd, Ovelty ? (combination of cough syrup ingredient plus Wellbutrin) Reason for continued inpatient stay Substantial Risk for: rapid decompensation and med/psych decompensation Time Spent With Patient Time: Total time managing care of this patient today ____ minutes.
[2023-12-02 06:00] VITALS: BP 139/78; PULSE 86; RESP 18; TEMP 36.6; O2SAT 96
[2023-12-02] MEDS: Acetaminophen 325 MG TABLET 650 MG PO ×2 (06:36→13:04)
[2023-12-02] MEDS: ARIPiprazole 5 MG TABLET PO (07:46)
[2023-12-02] MEDS: LORazepam 0.5 MG TABLET PO ×3 (07:46→20:32)
--- NOTE | 2023-12-02 09:48 | HO.PSYCHPN ---
Subjective Subjective Date of Service: 12/02/23 Reason For Visit: Catatonia Medical Problems Affecting Mental Status: No Interim History: 23 yo with developmental limitations- continues somatic with complaint of chest pain- has had thorough work up from cardiac stand point- reminded patient of taking and holding deep breaths to activate vagal nerve and calm down her sense of anxiety that is causing her to have sense that she has pain- it is like just higher hr she is reacting to - Medication Compliance: Yes Side effects from medications: No Attending Groups: Intermittent Review of Systems Acute medical concerns: No other than elevated pulse which could be due to meds, or anxiety Medical Review of Systems: unchanged (continue to co intermittent CP and anxiety) Review of Systems: no sob, no cough, no fever- recent ekg done yesterday Mental Status Exam Mental Status Exam Patient Appearance: Appropriate Patient Orientation: Person, Place and Situation Level of Consciousness: Awake Patient Behavior: Dependent, Passive and Good Eye Contact (improved from 2 wks ago!) Mood Description: Anxious Affect Description: Apprehensive Patient Cognition Impaired: Yes Ability to Follow Directions: Fair Speech Pattern: Clear Thought Process: Intact Thought Content: positive for [place] Depressive Symptoms: Increased Anxiety (always somatically focused) Judgement: Poor Diagnostics Vital Signs (24Hr): Vital Signs - 24 hr 12/01/23 14:27 12/01/23 18:14 12/01/23 18:52 Temperature 98.4 F Pulse Rate 102 H 104 H 111 H Respiratory Rate 20 19 19 Blood Pressure 132/75 120/80 120/74 Pulse Oximetry 97 99 98 Oxygen Delivery Method Room Air Room Air Room Air Labs 11/16/23 19:38 11/30/23 18:36 Labs: Laboratory Results - last 48 hr 11/30/23 18:36 Sodium 139 Potassium 4.5 Chloride 108 Carbon Dioxide 20 L Anion Gap 16 BUN 7 L Creatinine 0.68 Estim Creat Clear Calc TNP Estimated GFR > 60 Random Glucose 77 Calcium 9.7 Troponin I High Sens < 2.7 EKG EKG: reviewed (11/30) Medications Medications Current Medications Acetaminophen (Acetaminophen 325 Mg Tablet) 650 mg PO Q6H PRN PRN Reason: Headache/Pain Mild Scale (1-3) Last Admin: 12/02/23 06:36 Dose: 650 mg Al Hydroxide/Mg Hydroxide (Magnesium Hydrox/Alum Hydrox 30 Ml Oral.Susp) 30 ml PO Q6H PRN PRN Reason: Heartburn/Nausea Last Admin: 12/01/23 13:16 Dose: 30 ml Aripiprazole (Aripiprazole 5 Mg Tablet) 5 mg PO DAILY [facility] Last Admin: 12/02/23 07:46 Dose: 5 mg Aripiprazole (Aripiprazole 10 Mg Tablet) 10 mg PO BEDTIME [facility] Last Admin: 12/01/23 21:47 Dose: 10 mg Hydroxyzine HCl (Hydroxyzine Hcl 25 Mg Tablet) 25 mg PO Q6H PRN PRN Reason: Anxiety Last Admin: 12/01/23 13:16 Dose: 25 mg Lorazepam (Lorazepam 0.5 Mg Tablet) 0.5 mg PO TID [facility] Last Admin: 12/02/23 07:46 Dose: 0.5 mg Magnesium Hydroxide (Milk Of Magnesia 30 Ml Oral.Susp) 30 ml PO DAILY PRN PRN Reason: Constipation Last Admin: 11/26/23 18:23 Dose: 30 ml Ondansetron HCl (Ondansetron Odt 4 Mg Tab.Rapdis) 4 mg TRANSLINGU Q6H PRN PRN Reason: Nausea and Vomiting Last Admin: 11/28/23 14:37 Dose: 4 mg Trazodone HCl (Trazodone Hcl 50 Mg Tablet) 50 mg PO BEDTIME MRX1 PRN PRN Reason: Insomnia Last Admin: 12/01/23 21:47 Dose: 50 mg Allergies Allergies Allergy/AdvReac Type Severity Reaction Status Date / Time haloperidol AdvReac EPS Verified 11/15/23 12:43 metoprolol AdvReac Diarrhea Verified 10/07/23 23:43 Assessment & Plan Assessment & Plan (1) Schizoaffective disorder: Status: Acute Code(s): F25.9 - Schizoaffective disorder, unspecified (2) 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 11/17 Patient transferred back to psychiatric unit from medical floor. She remains floridly psychotic, with auditory hallucinations that say mean things, paranoid delusions, disorganized, needing one-to-one to guide her around the unit and attend to all ADLs. Morning Nanny consulted with Dr. Ackerman who met with patient on the unit with keno writer/runner and agreed that patient will do best to start ECT as soon as possible. Discussed medication regimen going forward with which he agrees; discussed case with Michelle Gary, hospitalist L[facility]INE who says she is cleared for ECT and will put in note saying so. Impression: Patient is floridly psychotic and delusional, hardly eating, with very disorganized behavior requiring one-to-one to walk on the unit let alone attend ADLs. Thus far medication trials have been ineffective; she has catatonic like features and a psychotic delirium for which the treatment is ECT which is included in substituted judgment. Will restart Abilify since it may have helped a little however will not have an IM backup if she refuses since it is unclear if Abilify did actually help and less clear that an IM of another antipsychotic will help at all; will continue with the Ativan however will not have an IM backup for similar reasons hospital course: 11/18 pt remains delusional w/ AH; says she broke the law...reports AH. keno writer/runner discussed ECT with her and she says she wants it since it may take away the AH. Eat some food which was encouraging; took some meds but then spit it out 11/19 disorganized and sleeping post ECT Discussed case with outpatient provider Radha Chase who reported that over the past year she started to suspect patient was possibly having hypomanic episodes; she listed various medications that were tried to help with depression anxiety but to little avail. She says at baseline patient is organized, logical clear and friendly 11/20 remains disorganized, psychotic, catatonic however is talking a little more and eating on her own more -taking medications w/out spitting out 11/24/23 continue tx 11/24 reports she's sad, wishses she were ; says mood is not too good. However she says AH is less bothersome which is welcomed; and she is not eating close to regularly. She is tired after ECT but wants to continue 11/25 Still disorganized and with paranoid delusions however unlike before, when patient will ask about if people are dying or if her dixon is dying or if she committed a crime... This time when keno writer/runner says it has not true that her mind is just playing tricks on her, she says okay and seems to briefly accept keno writer/runner's answer. That said she will ask the same question shortly afterwards. She continues to ask when she can get her next ECT treatment. Patient complaining of some lower back pain. Trying to get UA however it has been proving difficult per nursing given patient's disorganization. 4/10 pt post ECT today and says she feels a little wobbly. She continues to report depression but only sometimes wishing she were . Regarding AH only sometimes and no longer thinks she committed crimes, is a rapist, a terrorist or needs to go the police station and...she has no memory of thinking such things. Only sometimes thinks food is poisoned...but not much and eating well. Currently not worried if mom or dixon is unsafe... -had BM today -complains of a little bit of burning sensation when urinates; it was hard to determine if she currently feels and urgency -discussed treatment w/ pt and mom, including abilify, ECT now and future... -continue ECT which seems to be helping; will try to get clean-catch UA but given symptoms will likely start Abx for UTI 11/28 significantly better today. talking in full sentences, logical, organized. does not remember most of her delusional thinking. agrees with treatment plan -will require several more ECT treatments to prevent return of psychosis PLAN: Section 8/8b q15's ECT #5 on 11/28 (COURT ORDERED with substituted judgment; patient can not refuse) -npo change to daily abilify 5mg qam and 10mg qhs (court ordered but will hold off w/ IM back up for now) Lowered to ativan 0.5mg TID (court ordered but will hold off w/ IM back up for now) DC Olanzapine Medication trials: Trileptal: drowsy Depakote: nausea Risperdal Zyprexa: Tachycardic Abilify: Hypotensive Caplyta Vraylar Lamictal: Rash Topamax: No help Zoloft, Prozac, Effexor, Wellbutrin, Cymbalta, BuSpar, Viibryd, Ovelty ? (combination of cough syrup ingredient plus Wellbutrin) 12/02/23 CTP - educated about squared breathing Patient educated on: therapeutic strategies Informed Consent: further education needed Reason for continued inpatient stay Substantial Risk for: inability to function, rapid decompensation and med/psych decompensation Time Spent With Patient Time: Total time managing care of this patient today ____ minutes.
[2023-12-02] MEDS: hydrOXYzine HCL 25 MG TABLET PO (17:14)
[2023-12-02 18:00] VITALS: BP 122/74; PULSE 99; TEMP 36.6; O2SAT 99
[2023-12-02] MEDS: traZODone HCL 50 MG TABLET PO (20:32)
[2023-12-02] MEDS: ARIPiprazole 10 MG TABLET PO (20:32)
[2023-12-02] MEDS: Ibuprofen 400 MG TABLET PO (20:56)
[2023-12-03] MEDS: Ondansetron ODT 4 MG TAB.RAPDIS TRANSLINGU ×3 (01:00→15:26)
[2023-12-03 08:00] VITALS: BP 132/77; PULSE 87; RESP 18; TEMP 36.5; O2SAT 100
[2023-12-03] MEDS: ARIPiprazole 5 MG TABLET PO (08:39)
[2023-12-03] MEDS: LORazepam 0.5 MG TABLET PO ×2 (08:39→18:09)
--- NOTE | 2023-12-03 13:26 | HO.PSYCHPN ---
Subjective Subjective Date of Service: 12/03/23 Reason For Visit: Catatonia Interim History: Met with patient; discussed with team Patient reports feeling much better and back to her regular self. Arts Administrator discussed the past 2 months with her and patient has very little memory of her behaviors and psychotic symptoms and was surprised to hear about them. She explained she thinks she likely has bipolar disorder since her mom has it also and was grateful for ECT treatments and the medication. She says she is feeling ready to go and hopefully that she can discharge this week. Discussed the need for additional ECT treatments as her newfound stability is still in a fragile state and requires further treatment so that symptoms do not re-emerge; patient is amenable. Reviewed medication management. Patient talks about continued anxiety and will try clonidine instead of Ativan to see if that helps. Mental Status Exam Mental Status Exam Narrative: Pt is alert and oriented; behavior is cooperative, friendly and calm; patient is not in distress; dressed in casual attire with unkempt hair but adequate hygiene; mood is described as good and affect congruent; eye contact appropriate; Speech is normal rate, volume and prosody and not pressured; no psychomotor agitation/retardation present; thought process is organized and goal directed; Thought content is on tx; otherwise pertinent to relevant topics and without any delusional content, paranoid ideations or grandiosity; denies any SI/HI. There is no evidence of perceptual disturbance. Patients insight and judgment appear intact. Diagnostics Vital Signs (24Hr): Vital Signs - 24 hr 12/02/23 18:00 12/03/23 08:00 Temperature 97.8 F 97.7 F Pulse Rate 99 87 Respiratory Rate 18 Blood Pressure 122/74 132/77 Pulse Oximetry 99 100 Oxygen Delivery Method Room Air Room Air Labs 11/16/23 19:38 11/30/23 18:36 Medications Medications Current Medications Acetaminophen (Acetaminophen 325 Mg Tablet) 650 mg PO Q6H PRN PRN Reason: Headache/Pain Mild Scale (1-3) Last Admin: 12/02/23 13:04 Dose: 650 mg Al Hydroxide/Mg Hydroxide (Magnesium Hydrox/Alum Hydrox 30 Ml Oral.Susp) 30 ml PO Q6H PRN PRN Reason: Heartburn/Nausea Last Admin: 12/01/23 13:16 Dose: 30 ml Aripiprazole (Aripiprazole 10 Mg Tablet) 10 mg PO BEDTIME KRISTI Stop: 12/03/23 21:00 Last Admin: 12/02/23 20:32 Dose: 10 mg Aripiprazole (Aripiprazole 15 Mg Tablet) 15 mg PO BEDTIME KRISTI Clonidine HCl (Clonidine Hcl 0.1 Mg Tablet) 0.1 mg PO Q4H PRN; Protocol PRN Reason: mild anxiety (try 1st) Hydroxyzine HCl (Hydroxyzine Hcl 25 Mg Tablet) 25 mg PO Q6H PRN PRN Reason: Anxiety Last Admin: 12/02/23 17:14 Dose: 25 mg Ibuprofen (Ibuprofen 400 Mg Tablet) 400 mg PO Q6H PRN PRN Reason: moderate pain Last Admin: 12/02/23 20:56 Dose: 400 mg Lorazepam (Lorazepam 0.5 Mg Tablet) 0.5 mg PO TID PRN PRN Reason: mild-mod anxiety Magnesium Hydroxide (Milk Of Magnesia 30 Ml Oral.Susp) 30 ml PO DAILY PRN PRN Reason: Constipation Last Admin: 11/26/23 18:23 Dose: 30 ml Ondansetron HCl (Ondansetron Odt 4 Mg Tab.Rapdis) 4 mg TRANSLINGU Q6H PRN PRN Reason: Nausea and Vomiting Last Admin: 12/03/23 10:05 Dose: 4 mg Trazodone HCl (Trazodone Hcl 50 Mg Tablet) 50 mg PO BEDTIME MRX1 PRN PRN Reason: Insomnia Last Admin: 12/02/23 20:32 Dose: 50 mg Allergies Allergies Allergy/AdvReac Type Severity Reaction Status Date / Time haloperidol AdvReac EPS Verified 11/15/23 12:43 metoprolol AdvReac Diarrhea Verified 10/07/23 23:43 Assessment & Plan Assessment & Plan (1) Schizoaffective disorder: Status: Acute Code(s): F25.9 - Schizoaffective disorder, unspecified (2) 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 11/17 Patient transferred back to psychiatric unit from medical floor. She remains floridly psychotic, with auditory hallucinations that say mean things, paranoid delusions, disorganized, needing one-to-one to guide her around the unit and attend to all ADLs. Arts Administrator consulted with Dr. Ackerman who met with patient on the unit with policy writer sales and agreed that patient will do best to start ECT as soon as possible. Discussed medication regimen going forward with which he agrees; discussed case with Michelle Gary, hospitalist LAMINE who says she is cleared for ECT and will put in note saying so. Impression: Patient is floridly psychotic and delusional, hardly eating, with very disorganized behavior requiring one-to-one to walk on the unit let alone attend ADLs. Thus far medication trials have been ineffective; she has catatonic like features and a psychotic delirium for which the treatment is ECT which is included in substituted judgment. Will restart Abilify since it may have helped a little however will not have an IM backup if she refuses since it is unclear if Abilify did actually help and less clear that an IM of another antipsychotic will help at all; will continue with the Ativan however will not have an IM backup for similar reasons hospital course: 11/18 pt remains delusional w/ AH; says she broke the law...reports AH. policy writer sales discussed ECT with her and she says she wants it since it may take away the AH. Eat some food which was encouraging; took some meds but then spit it out 11/19 disorganized and sleeping post ECT Discussed case with outpatient provider Radha Chase who reported that over the past year she started to suspect patient was possibly having hypomanic episodes; she listed various medications that were tried to help with depression anxiety but to little avail. She says at baseline patient is organized, logical clear and friendly 11/20 remains disorganized, psychotic, catatonic however is talking a little more and eating on her own more -taking medications w/out spitting out 11/24/23 continue tx 11/24 reports she's sad, wishses she were ; says mood is not too good. However she says AH is less bothersome which is welcomed; and she is not eating close to regularly. She is tired after ECT but wants to continue 11/25 Still disorganized and with paranoid delusions however unlike before, when patient will ask about if people are dying or if her dixon is dying or if she committed a crime... This time when policy writer sales says it has not true that her mind is just playing tricks on her, she says okay and seems to briefly accept policy writer sales's answer. That said she will ask the same question shortly afterwards. She continues to ask when she can get her next ECT treatment. Patient complaining of some lower back pain. Trying to get UA however it has been proving difficult per nursing given patient's disorganization. 11/26 pt post ECT today and says she feels a little wobbly. She continues to report depression but only sometimes wishing she were . Regarding AH only sometimes and no longer thinks she committed crimes, is a rapist, a terrorist or needs to go the police station and...she has no memory of thinking such things. Only sometimes thinks food is poisoned...but not much and eating well. Currently not worried if mom or dixon is unsafe... -had BM today -complains of a little bit of burning sensation when urinates; it was hard to determine if she currently feels and urgency -discussed treatment w/ pt and mom, including abilify, ECT now and future... -continue ECT which seems to be helping; will try to get clean-catch UA but given symptoms will likely start Abx for UTI 11/28 significantly better today. talking in full sentences, logical, organized. does not remember most of her delusional thinking. agrees with treatment plan -will require several more ECT treatments to prevent return of psychosis 12/02 Patient reports feeling much better and back to her regular self. Arts Administrator discussed the past 2 months with her and patient has very little memory of her behaviors and psychotic symptoms and was surprised to hear about them. She explained she thinks she likely has bipolar disorder since her mom has it also and was grateful for ECT treatments and the medication. She says she is feeling ready to go and hopefully that she can discharge this week. Discussed the need for additional ECT treatments as her newfound stability is still in a fragile state and requires further treatment so that symptoms do not re-emerge; patient is amenable. Reviewed medication management Patient talks about continued anxiety and will try clonidine instead of Ativan to see if that helps. PLAN: Section 8/8b q15's ECT #6 on 12/03 (COURT ORDERED with substituted judgment; patient can not refuse) -npo change to daily abilify 15mg qam Change to p.r.n. ativan 0.5mg Medication trials: Trileptal: drowsy Depakote: nausea Risperdal Zyprexa: Tachycardic Abilify: Hypotensive Caplyta Vraylar Lamictal: Rash Topamax: No help Zoloft, Prozac, Effexor, Wellbutrin, Cymbalta, BuSpar, Viibryd, Ovelty ? (combination of cough syrup ingredient plus Wellbutrin) Patient educated on: diagnosis, medication risk/benefits and ECT Informed Consent: understands Reason for continued inpatient stay Substantial Risk for: stable for discharge and rapid decompensation Time Spent With Patient Time: Total time managing care of this patient today ____ minutes.
[2023-12-03] MEDS: hydrOXYzine HCL 25 MG TABLET PO (14:02)
[2023-12-03] MEDS: Acetaminophen 325 MG TABLET 650 MG PO (16:57)
[2023-12-03 17:07] VITALS: BP 131/81; PULSE 127; TEMP 36.7
[2023-12-03] MEDS: Magnesium Hydrox/Alum Hydrox 30 ML ORAL.SUSP PO (19:02)
[2023-12-03] MEDS: ARIPiprazole 10 MG TABLET PO (21:30)
[2023-12-04] VITALS (9 sets, daily range): BP systolic 102–126; BP diastolic 60–83; PULSE 84–103; RESP 16; TEMP 36.5–36.8; O2SAT 97–100
--- NOTE | 2023-12-04 07:29 | MHC.SHP ---
Pre-Procedural Eval Section A - 24 Hr Update-Section A only Date of Service: 12/04/23 The patient is an INPATIENT: Yes Changes since office visit: Yes Changes in Medication and Yes Patient answered all questions; No Cold of Flu in the past 2 weeks and No New Medical Problems The patient has been examined within 24 hours of the surgical procedure. The History & Physical has been completed within 30 days and I have reviewed it.: Yes Section B - Complete if H&P > 30 days Chief Complaint: Catatonia Allergies: Allergies Allergy/AdvReac Type Severity Reaction Status Date / Time haloperidol AdvReac EPS Verified 11/15/23 12:43 metoprolol AdvReac Diarrhea Verified 10/07/23 23:43 Plan I have reviewed the history and physical and performed a pertinent physical examination on my patient. No changes have occurred unless specified. Time Spent With Patient Time: Total time managing care of this patient today ____ minutes.
--- NOTE | 2023-12-04 07:30 | HO.ECTPROC ---
ECT Procedure Note Diagnosis/Treatment Date of Service: 12/08/23 Diagnosis: Catatonia Previous ECT Date: 11/29/23 Current Treatment Number: 6 Treatment: Series Interval Clinical Notes: Pt MARKEDLY improved full affect no aud gastelum does not clearly renember her psychotic state Time: Total time managing care of this patient today _30___ minutes. ECT Settings Device: THYMATRON DGx Electrode Placement: Rt temporal/ Lt frontal Program/Pulse Width: 0.25 Energy Percent: 60 Seizure Duration By EEG (in seconds): 54 Medications Administration General Anesthetic: Etomidate (14) Muscle Relaxant: Succinylcholine (80) Ancillary Medications Analgesics: Torodol - Pre ECT Anti-emetics: Zofran - Pre ECT Airway Management Airway Management: Bag Mask Ventilation Treatment Recommendations No Changes Recommended: No change Notes: better with bilateral tx Pt Tolerated Procedure w/o Issue: Yes
--- NOTE | 2023-12-04 08:00 | HO.ANESPROP2 ---
[facility] Active Problems Active Problems: All Active Problems Catatonia (Acute) Schizoaffective disorder (Acute) Syncope (Acute) Intellectual disability (Acute) Psychosis (Acute) Major depressive disorder, recurrent episode, severe, with psychosis (Chronic) Major depression (Acute) Auditory hallucinations (Acute) Suicidal ideation (Acute) COVID-19 (Acute) Contraception management (Acute) Vitamin D deficiency (Acute) Vitamin B12 deficiency (Acute) Uses control (Acute) Orthostatic hypotension (Acute) Supraventricular tachycardia by ECG (Acute) Major depression in partial remission (Acute) Left ovarian cyst (Acute) Migraine (Acute) Past Medical History Medical History Schizoaffective disorder Intellectual disability Contraception management Vitamin D deficiency Vitamin B12 deficiency Uses control Hx of ovarian cyst Epigastric abdominal pain Orthostatic hypotension Supraventricular tachycardia by ECG Major depression in partial remission Left ovarian cyst Migraine Family History Family History Mother Bipolar disorder Mental health disorder Family history of problems with anesthesia: No Surgical History Surgical History H/O removal of cyst History of Problems with Anesthesia: No Social History Social History Household Members: Other Household Members Other:: Pt unable to answer questions d/t mental status. Housing: Other Housing Other:: Pt unable to answer questions d/t mental status. Alcohol intake: never Comment: Pt utilizing wheelchair with staff assistance. Patient Tobacco Use Status: Never used Tobacco e-Cigarette/Vaping Use: Never Used Second Hand Smoke Exposure: No Use of substances other than those prescribed or required for medical reasons: Unknown Substance Use Type: Unknown Last Used Substance: Unknown Last Used Substance Other:: Pt unable to answer questions d/t mental status. Currently Displaying Signs/Symptoms of Drug Intoxication Withdrawal: No Other Past Substance Use Problem:: Pt unable to answer questions d/t mental status. Advance Directives: No Advance Directives Information Provided: Yes Do you have thoughts of harming others: None Do you have a plan to hurt others: No Plan How much weight loss: Unsure Patient : No : No Poor oral hygiene: Yes service: No Current occupational status: unemployed Sexual orientation: Unable to collect Cognitive needs: No Hearing needs: No Vision needs: No Meds Allergies Allergy/AdvReac Type Severity Reaction Status Date / Time haloperidol AdvReac EPS Verified 11/15/23 12:43 metoprolol AdvReac Diarrhea Verified 10/07/23 23:43 Active Medications: Current Medications Acetaminophen (Acetaminophen 325 Mg Tablet) 650 mg PO Q6H PRN PRN Reason: Headache/Pain Mild Scale (1-3) Last Admin: 12/03/23 16:57 Dose: 650 mg Al Hydroxide/Mg Hydroxide (Magnesium Hydrox/Alum Hydrox 30 Ml Oral.Susp) 30 ml PO Q6H PRN PRN Reason: Heartburn/Nausea Last Admin: 12/03/23 19:02 Dose: 30 ml Aripiprazole (Aripiprazole 15 Mg Tablet) 15 mg PO BEDTIME KRISTI Clonidine HCl (Clonidine Hcl 0.1 Mg Tablet) 0.1 mg PO Q4H PRN; Protocol PRN Reason: mild anxiety (try 1st) Hydroxyzine HCl (Hydroxyzine Hcl 25 Mg Tablet) 25 mg PO Q6H PRN PRN Reason: Anxiety Last Admin: 12/03/23 14:02 Dose: 25 mg Ibuprofen (Ibuprofen 400 Mg Tablet) 400 mg PO Q6H PRN PRN Reason: moderate pain Last Admin: 12/02/23 20:56 Dose: 400 mg Lorazepam (Lorazepam 0.5 Mg Tablet) 0.5 mg PO TID PRN PRN Reason: mild-mod anxiety Last Admin: 12/03/23 18:09 Dose: 0.5 mg Magnesium Hydroxide (Milk Of Magnesia 30 Ml Oral.Susp) 30 ml PO DAILY PRN PRN Reason: Constipation Last Admin: 11/26/23 18:23 Dose: 30 ml Ondansetron HCl (Ondansetron Odt 4 Mg Tab.Rapdis) 4 mg TRANSLINGU Q6H PRN PRN Reason: Nausea and Vomiting Last Admin: 12/03/23 15:26 Dose: 4 mg Trazodone HCl (Trazodone Hcl 50 Mg Tablet) 50 mg PO BEDTIME MRX1 PRN PRN Reason: Insomnia Last Admin: 12/02/23 20:32 Dose: 50 mg Exam Height,Weight and Vital Signs: Weight 65.3 kg Last Vital Signs Temp 98 F 12/04/23 06:33 Pulse 87 12/04/23 06:33 Resp 16 12/04/23 06:33 BP 122/78 12/04/23 06:33 Pulse Ox 100 12/04/23 06:33 O2 Del Method Room Air 12/04/23 06:33 O2 Flow Rate 2 11/29/23 08:12 Pertinent Lab Results Pertinent Lab Results: Laboratory Tests 11/16/23 11/17/23 11/17/23 19:38 07:27 12:37 WBC 7.0 RBC 4.77 Hgb 12.7 Hct 38.7 MCV 81.1 MCH 26.6 L MCHC 32.8 RDW 16.2 H Plt Count 393 MPV 10.6 Immature Gran % (Auto) 0.3 Neut % (Auto) 61.5 Lymph % (Auto) 22.9 [place] % (Auto) 11.4 H Eos % (Auto) 3.3 Baso % (Auto) 0.6 Lymph # (Auto) 1.6 [place] # (Auto) 0.8 Eos # (Auto) 0.2 Baso # (Auto) 0.0 Abs Immat Gran (auto) 0.02 Absolute Neuts (auto) 4.3 Absolute Nucleated RBC 0.000 Nucleated RBC % (auto) 0.0 Sodium 142 141 Potassium 3.7 3.8 Chloride 109 H 110 H Carbon Dioxide 26 20 L Anion Gap 11 L 15 BUN < 3 L 3 L Creatinine 0.57 0.57 Estim Creat Clear Calc TNP TNP Estimated GFR > 60 > 60 Random Glucose 94 Fasting Glucose 74 Calcium 9.2 D 9.4 Total Bilirubin 0.4 AST 30 ALT 36 H Alkaline Phosphatase 72 Troponin I High Sens Total Protein 6.9 Albumin 3.9 Triglycerides 85 Cholesterol 142 LDL Cholesterol, Calc 73 HDL Cholesterol 52 Urine Color Yellow Urine Appearance Cloudy Urine pH 8.5 Ur Specific [place] 1.015 Urine Protein Negative Urine Glucose (UA) Negative Urine Ketones Negative Urine Blood Negative Urine Nitrite Negative Ur Leukocyte Esterase Moderate (2+) H Urine RBC 0-2 Urine WBC 6-10 H Ur Squamous Epith Cells 11-20 Other Crystals Present Urine Bacteria 2+ Hyaline Casts 0-2 COVID-19 (Y[facility]ILA) COVID-19 Clin Com 11/21/23 11/27/23 11/30/23 09:29 11:30 18:36 WBC RBC Hgb Hct MCV MCH MCHC RDW Plt Count MPV Immature Gran % (Auto) Neut % (Auto) Lymph % (Auto) [place] % (Auto) Eos % (Auto) Baso % (Auto) Lymph # (Auto) [place] # (Auto) Eos # (Auto) Baso # (Auto) Abs Immat Gran (auto) Absolute Neuts (auto) Absolute Nucleated RBC Nucleated RBC % (auto) Sodium 139 Potassium 4.5 Chloride 108 Carbon Dioxide 20 L Anion Gap 16 BUN 7 L Creatinine 0.68 Estim Creat Clear Calc TNP Estimated GFR > 60 Random Glucose 77 Fasting Glucose Calcium 9.7 Total Bilirubin AST ALT Alkaline Phosphatase Troponin I High Sens < 2.7 Total Protein Albumin Triglycerides Cholesterol LDL Cholesterol, Calc HDL Cholesterol Urine Color Yellow Urine Appearance Clear Urine pH 8.5 Ur Specific [place] 1.015 Urine Protein Negative Urine Glucose (UA) Negative Urine Ketones Negative Urine Blood Negative Urine Nitrite Negative Ur Leukocyte Esterase Negative Urine RBC 0-2 Urine WBC 0-5 Ur Squamous Epith Cells 0-2 Other Crystals Urine Bacteria None Seen Hyaline Casts 0-2 COVID-19 (YAMILA) Negative COVID-19 Clin Com See Note Airway Mallampati Class: III TM Dist: >3cm Neck ROM: Full Assessment and Plan Assessment Anesthesia Assessment: Anesthesia Plan Discussed and Chart Reviewed Final Anesthetic Review Family History of Problems with Anesthesia: No History of Problems with Anesthesia: No NPO: Yes ASA Class: III Final Preanesthetic Review: No Changes in Pt Med Stat, Meds/Allgs Chart Reviewed, Consent Obtained/Reviewed and Anes Risks/Benef Reviewed Patient Risk: Intermediate Procedure Risk: Low Anesthetic Plan Anesthetic Plan: GA Disposition: Standard PACU
[2023-12-04] MEDS: Acetaminophen 325 MG TABLET 650 MG PO ×2 (09:01→16:05)
--- NOTE | 2023-12-04 09:42 | P.PNPSI_ITS ---
Subjective Subjective Date of Service: 12/04/23 Reason For Visit: Catatonia Interim History: Met with patient; discussed with team; discussed case with Dr. Méndez Patient continues to feel better, no AVH, no paranoid delusions, eating and drinking well; sleeping well. No depression, no SI. Anxiety remains but much less. Patient feeling a little nauseous today after ECT and tired but overall remains doing much better. Her boyfriend came to visit her yesterday and she is excited that she can discharge tomorrow. She agrees to continue coming for outpatient ECT post discharge. Discussed case with Dr. Méndez who agrees that patient can wait till 12/08 for next ECT treatment Mental Status Exam Mental Status Exam Narrative: Pt is alert and oriented; behavior is cooperative, friendly and calm; patient is not in distress; dressed in casual attire with unkempt hair but adequate hygiene; mood is described as good and affect congruent; eye contact appropriate; Speech is normal rate, volume and prosody and not pressured; no psychomotor agitation/retardation present; thought process is organized and goal directed; Thought content is on tx; otherwise pertinent to relevant topics and without any delusional content, paranoid ideations or grandiosity; denies any SI/HI. There is no evidence of perceptual disturbance. Patients insight and judgment are intact. Diagnostics Vital Signs (24Hr): Vital Signs - 24 hr 12/03/23 17:07 12/04/23 06:33 12/04/23 08:00 Temperature 98.1 F 98 F 98.2 F Pulse Rate 127 H 87 102 H Respiratory Rate 16 16 Blood Pressure 131/81 122/78 102/64 Pulse Oximetry 100 98 Oxygen Delivery Method Room Air Nasal Cannula with ETCO2 Oxygen Flow Rate 2 12/04/23 08:05 12/04/23 08:10 12/04/23 08:15 Temperature Pulse Rate 95 89 88 Respiratory Rate 16 16 16 Blood Pressure 111/68 106/62 103/60 Pulse Oximetry 98 98 98 Oxygen Delivery Method Nasal Cannula with ETCO2 Nasal Cannula with ETCO2 Nasal Cannula with ETCO2 Oxygen Flow Rate 2 2 2 12/04/23 08:30 12/04/23 08:44 Temperature 97.7 F Pulse Rate 84 88 Respiratory Rate 16 16 Blood Pressure 116/65 108/78 Pulse Oximetry 98 100 Oxygen Delivery Method Room Air Room Air Oxygen Flow Rate Labs 11/16/23 19:38 11/30/23 18:36 Medications Medications Current Medications Acetaminophen (Acetaminophen 325 Mg Tablet) 650 mg PO Q6H PRN PRN Reason: Headache/Pain Mild Scale (1-3) Last Admin: 12/04/23 09:01 Dose: 650 mg Al Hydroxide/Mg Hydroxide (Magnesium Hydrox/Alum Hydrox 30 Ml Oral.Susp) 30 ml PO Q6H PRN PRN Reason: Heartburn/Nausea Last Admin: 12/03/23 19:02 Dose: 30 ml Aripiprazole (Aripiprazole 15 Mg Tablet) 15 mg PO BEDTIME KRISTI Clonidine HCl (Clonidine Hcl 0.1 Mg Tablet) 0.1 mg PO Q4H PRN; Protocol PRN Reason: mild anxiety (try 1st) Hydroxyzine HCl (Hydroxyzine Hcl 25 Mg Tablet) 25 mg PO Q6H PRN PRN Reason: Anxiety Last Admin: 12/03/23 14:02 Dose: 25 mg Ibuprofen (Ibuprofen 400 Mg Tablet) 400 mg PO Q6H PRN PRN Reason: moderate pain Last Admin: 12/02/23 20:56 Dose: 400 mg Lorazepam (Lorazepam 0.5 Mg Tablet) 0.5 mg PO TID PRN PRN Reason: mild-mod anxiety Last Admin: 12/03/23 18:09 Dose: 0.5 mg Magnesium Hydroxide (Milk Of Magnesia 30 Ml Oral.Susp) 30 ml PO DAILY PRN PRN Reason: Constipation Last Admin: 11/26/23 18:23 Dose: 30 ml Ondansetron HCl (Ondansetron Odt 4 Mg Tab.Rapdis) 4 mg TRANSLINGU Q6H PRN PRN Reason: Nausea and Vomiting Last Admin: 12/03/23 15:26 Dose: 4 mg Trazodone HCl (Trazodone Hcl 50 Mg Tablet) 50 mg PO BEDTIME MRX1 PRN PRN Reason: Insomnia Last Admin: 12/02/23 20:32 Dose: 50 mg Allergies Allergies Allergy/AdvReac Type Severity Reaction Status Date / Time haloperidol AdvReac EPS Verified 11/15/23 12:43 metoprolol AdvReac Diarrhea Verified 10/07/23 23:43 Assessment & Plan Assessment & Plan (1) Schizoaffective disorder: Status: Acute Code(s): F25.9 - Schizoaffective disorder, unspecified (2) 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 11/17 Patient transferred back to psychiatric unit from medical floor. She remains floridly psychotic, with auditory hallucinations that say mean things, paranoid delusions, disorganized, needing one-to-one to guide her around the unit and attend to all ADLs. [employer] consulted with Dr. Ackerman who met with patient on the unit with insurance underwriter sales and agreed that patient will do best to start ECT as soon as possible. Discussed medication regimen going forward with which he agrees; discussed case with Michelle Gary hospitalist LAMINE who says she is cleared for ECT and will put in note saying so. Impression: Patient is floridly psychotic and delusional, hardly eating, with very disorganized behavior requiring one-to-one to walk on the unit let alone attend ADLs. Thus far medication trials have been ineffective; she has catatonic like features and a psychotic delirium for which the treatment is ECT which is included in substituted judgment. Will restart Abilify since it may have helped a little however will not have an IM backup if she refuses since it is unclear if Abilify did actually help and less clear that an IM of another antipsychotic will help at all; will continue with the Ativan however will not have an IM backup for similar reasons hospital course: 11/18 pt remains delusional w/ AH; says she broke the law...reports AH. insurance underwriter sales discussed ECT with her and she says she wants it since it may take away the AH. Eat some food which was encouraging; took some meds but then spit it out 11/19 disorganized and sleeping post ECT Discussed case with outpatient provider Radha Chase who reported that over the past year she started to suspect patient was possibly having hypomanic episodes; she listed various medications that were tried to help with depression anxiety but to little avail. She says at baseline patient is organized, logical clear and friendly 11/20 remains disorganized, psychotic, catatonic however is talking a little more and eating on her own more -taking medications w/out spitting out 11/24/23 continue tx 11/24 reports she's sad, wishses she were ; says mood is not too good. However she says AH is less bothersome which is welcomed; and she is not eating close to regularly. She is tired after ECT but wants to continue 11/25 Still disorganized and with paranoid delusions however unlike before, when patient will ask about if people are dying or if her dixon is dying or if she committed a crime... This time when insurance underwriter sales says it has not true that her mind is just playing tricks on her, she says okay and seems to briefly accept insurance underwriter sales's answer. That said she will ask the same question shortly afterwards. She continues to ask when she can get her next ECT treatment. Patient complaining of some lower back pain. Trying to get UA however it has been proving difficult per nursing given patient's disorganization. 11/26 pt post ECT today and says she feels a little wobbly. She continues to report depression but only sometimes wishing she were . Regarding AH only sometimes and no longer thinks she committed crimes, is a rapist, a terrorist or needs to go the police station and...she has no memory of thinking such things. Only sometimes thinks food is poisoned...but not much and eating well. Currently not worried if mom or dixon is unsafe... -had BM today -complains of a little bit of burning sensation when urinates; it was hard to determine if she currently feels and urgency -discussed treatment w/ pt and mom, including abilify, ECT now and future... -continue ECT which seems to be helping; will try to get clean-catch UA but given symptoms will likely start Abx for UTI 11/28 significantly better today. talking in full sentences, logical, organized. does not remember most of her delusional thinking. agrees with treatment plan -will require several more ECT treatments to prevent return of psychosis 12/02 Patient reports feeling much better and back to her regular self. [employer] discussed the past 2 months with her and patient has very little memory of her behaviors and psychotic symptoms and was surprised to hear about them. She explained she thinks she likely has bipolar disorder since her mom has it also and was grateful for ECT treatments and the medication. She says she is feeling ready to go and hopefully that she can discharge this week. Discussed the need for additional ECT treatments as her newfound stability is still in a fragile state and requires further treatment so that symptoms do not re-emerge; patient is amenable. Reviewed medication management Patient talks about continued anxiety and will try clonidine instead of Ativan to see if that helps. 12/03 Patient continues to feel better, no AVH, no paranoid delusions, eating and drinking well; sleeping well. No depression, no SI. Anxiety remains but much less. Patient feeling a little nauseous today after ECT and tired but overall remains doing much better. Her boyfriend came to visit her yesterday and she is excited that she can discharge tomorrow. She agrees to continue coming for outpatient ECT post discharge. Discussed case with Dr. Méndez who agrees that patient can wait till 12/08 for next ECT treatment -patient is back to her baseline, doing well with symptoms resolved. While her stability remains at a fragile state and she is vulnerable to decompensation, she is currently stable and not in imminent risk for harm to self or others. She would like to discharge and continue treatment as an outpatient with which insurance underwriter sales agrees is appropriate. Patient's mother also feels she is ready to come home and is able to get her to and from ECT as needed. PLAN: Section 8/8b q15's ECT #7 on 12/08 as outpt -npo change to daily abilify 15mg qam Change to p.r.n. ativan 0.5mg Medication trials: Trileptal: drowsy Depakote: nausea Risperdal Zyprexa: Tachycardic Abilify: Hypotensive Caplyta Vraylar Lamictal: Rash Topamax: No help Zoloft, Prozac, Effexor, Wellbutrin, Cymbalta, BuSpar, Viibryd, Ovelty ? (combination of cough syrup ingredient plus Wellbutrin) 12/02/23 CTP - educated about squared breathing Patient educated on: diagnosis, medication risk/benefits and ECT Informed Consent: understands Reason for continued inpatient stay Substantial Risk for: stable for discharge Time Spent With Patient Time: Total time managing care of this patient today ____ minutes.
[2023-12-04] MEDS: Ondansetron ODT 4 MG TAB.RAPDIS TRANSLINGU ×3 (10:57→20:38)
--- NOTE | 2023-12-04 16:00 | P.DS_ITS ---
DS: Providers Provider Date of Service: 12/05/23 Date of admission: 11/16/23 12:19 Date of discharge: 12/05/23 Primary care physician: Unknown Physician Attending physician on admission: Jennifer Lind Consults: 11/30/23 18:27 Consult to Hospitalist Stat Comment: Consulting Provider: Hospitalist Reason For Exam: 23 yo chest pain and ?ekg findings Attending physician on discharge: Hossein Smith DS: Diagnosis Discharge Diagnosis (1) Schizoaffective disorder: Status: Acute (2) Catatonia: Status: Acute (3) Intellectual disability: Status: Acute (4) Left ovarian cyst: Status: Inactive DS: Medications Discharge Medications Home Medications: Previous Rx's ?Medication ?Instructions ?Recorded aripiprazole 15 mg tablet 15 mg PO BEDTIME 30 days #30 tabs 12/04/23 clonidine HCl 0.1 mg tablet 0.1 mg PO Q4H PRN mild anxiety 12/04/23 (try 1st) 30 days #90 tabs hydroxyzine HCl 25 mg tablet 25 mg PO Q6H PRN Anxiety 30 days 12/04/23 #90 tabs ondansetron 4 mg disintegrating 4 mg translingual Q6H PRN Nausea 12/04/23 tablet And Vomiting 7 days #14 tabs trazodone 50 mg tablet 50 mg PO BEDTIME PRN Insomnia 30 12/04/23 days #30 tabs Mental Status Exam Mental Status Exam Narrative: Pt is alert and oriented; behavior is cooperative, friendly and calm; patient is not in distress; dressed in casual attire with unkempt hair but adequate hygiene; mood is described as good and affect congruent; eye contact appropri ate; Speech is normal rate, volume and prosody and not pressured; no psychomotor agitation/retardation present; thought process is organized and goal directed; Thought content is on tx; otherwise pertinent to relevant topics and without any delusional content, paranoid ideations or grandiosity; denies any SI/HI. There is no evidence of perceptual disturbance. Patients insight and judgment are intact. Data Data Completed and Pending Completed studies during hospitalization [Text1]: 11/30/23 18:36 Sodium 139 Potassium 4.5 Chloride 108 Carbon Dioxide 20 L Anion Gap 16 BUN 7 L Creatinine 0.68 Estim Creat Clear Calc TNP Estimated GFR > 60 Random Glucose 77 Calcium 9.7 Troponin I High Sens < 2.7 11/24/23 10:00 Urine clean catch - Clean Catch Midstream Urine Culture - Final DS: Summary Hospital Course Hospital Course: 22 yo female with history of depression and anxiety admitted to [facility] due to rapid decompensation, with 1st time ever manic and psychotic symptoms, following recent covid infection. She is internally preoccupied and disorganized as well as almost mute with very few verbal utterances- whispering and mumbling. Hospital course summary up to 11/08/23: Prior to admission, mother reports patient had what sounds like some manic behavior, not sleeping, pacing; Patient presented with disorganized behavior, AH and paranoid delusions. On admission she was started on antipsychotic medication and quickly had some improvement, no longer placing herself on the floor, talking, eating and drinking and a little more organized. [employer] discussed case with Neurologist Dr. Oconnor who met with patient and agreed that although patient had no prior history of manic/psychotic behavior and this onset coincided with donal COVID, there was at this point low concern for encephalopathy; her mother has bipolar disorder, patient has a history of psychiatric issues and presentation is in line with 1st break joana/psychosis. And although She soon plateaued property underwriter considered that her initial improvement was due to medication response which per discussion with Dr. 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 -At this time it seems that patient has failed Risperdal, Zyprexa and Haldol. Abilify may have been working, but she has since decided to refuse all medication. -patient does have some catatonic like features however Ativan trial did not alleviate any symptoms and she refuses to continue with it -Given that patient is not getting better, remains floridly psychotic, disorganized, refusing medication...not eating any food due to persistent paranoid delusions and auditory hallucinations and wanting to discharge, will again pursue if there is possibly a contributing neurological component. ECT is also an option as there is no absolute contraindication, thus far patient seems to be refractory to medication and she has some catatonic symptoms as well. - Filed for involuntary commitment and substituted judgment as well -was adequately drinking fluids but stopped prior to transfer. 11/07 Patient hardly talking; sometimes backing away when someone approaches; drinking some ensure which is helpful. Remains disorganized, shuffling through the halls aimlessly, pants falling down, floridly psychotic with paranoid delusions and auditory hallucinations. Patient will approach property underwriter but then not say anything respond to questions. The little that she does talk she refers to paranoid delusional thoughts, saying she thinks she killed lots of people... Is her mother ... -though she consented to MRI, when the wheelchair came she got very frightened and refused to get in the wheelchair. On inquiry patient said I need my mother and not at yes that with her mother present she would do the MRI -neurologist Dr. Mckeon came to see patient however she remained mute, passive, lying in bed hardly moving -discussed case with Dr. Oconnor who agrees to move forward with MRI but that enter vaginal pelvic ultrasound can wait; also agrees with pursuing LP and for lab work to include Cell count, protein sugar, cultures, immunoelectrophoresus, viral pcr, autoimmune panel on 11/10/23 Patient transferred to medical floor 11/10/2023 for syncopal episode following elevated BP of 192/113, heart rate 158, and elevated temperature of 99.9 degrees; patient diaphoretic, dry mucous membranes. Concern was for severe dehydration. Apparently patient had been refusing all food and drink, as well as all medications, for the past 2-3 days. Of note, patient had significant workup for tachycardia by cardiology in early 2022. Workup showed echo with LVEF of 55-60% without valvular issues; Holter with underlying sinus rhythm with rate of 103/min with frequent sinus tachycardia; tilt-table test with orthostatic BP and HR changes suggestive of vasovagal syncope; recommendation at that time was for increasing fluid intake and liberalizing salt intake. Cardiology at that time thought that tachycardia was chronic with perhaps some component of deconditioning or possibly inappropr iate sinus tachycardia. Advised against using beta-blockers or other rate slowing agents. Patient cleared and returned to psychiatric unit. Continued hospital court: She was continued on lorazepam for catatonia. Discussed with colleagues and patient started on ECT as she remained floridly psychotic and disorganized and numerous medications had not improved symptoms. Thankfully with ECT patient started to improve. By about the 5th or 6th treatment patient seemed to have fully return to baseline. Patient's speech behavior will fully organized and she was logical and linear, eating and drinking and understanding her illness, wanting to continue with treatment. Patient did not remember much of anything during her psychotic episode. She was continued on Abilify, though is not clear if this was helpful and agreed to discharge LP, labs thus far unremarkable On 12/02 Patient reports feeling much better and back to her regular self. [employer] discussed the past 2 months with her and patient has very little memory of her behaviors and psychotic symptoms and was surprised to hear about them. She explained she thinks she likely has bipolar disorder since her mom has it also and was grateful for ECT treatments and the medication. She says she is feeling ready to go and hopefully that she can discharge this week. Discussed the need for additional ECT treatments as her newfound stability is still in a fragile state and requires further treatment so that symptoms do not re-emerge; patient is amenable. Reviewed medication management Patient talks about co ntinued anxiety and will try clonidine instead of Ativan to see if that helps. On 12/03 Patient continues to feel better, no AVH, no paranoid delusions, eating and drinking well; sleeping well. No depression, no SI. Anxiety remains but much less. Patient feeling a little nauseous today after ECT and tired but overall remains doing much better. Her boyfriend came to visit her yesterday and she is excited that she can discharge tomorrow. She agrees to continue coming for outpatient ECT post discharge. Discussed case with Dr. Méndez who agrees that patient can wait till 12/08 for next ECT treatment -patient is back to her baseline, doing well with symptoms resolved. While her stability remains at a fragile state and she is vulnerable to decompensation, she is currently stable and not in imminent risk for harm to self or others. She would like to discharge and continue treatment as an outpatient with which property underwriter agrees is appropriate. Patient's mother also feels she is ready to come home and is able to get her to and from ECT as needed. -ECT #7 scheduled for 12/08 as outpt [employer] discussed case with her outpatient provider Queta Chase who agreed with continue treatment plan Medication trials: Trileptal: drowsy Depakote: nausea Risperdal Zyprexa: Tachycardic Abilify: Hypotensive Caplyta Vraylar Lamictal: Rash Topamax: No help Zoloft, Prozac, Effexor, Wellbutrin, Cymbalta, BuSpar, Viibryd, Ovelty ? (combination of cough syrup ingredient plus Wellbutrin) Time spent discussing smoking cessation with patient: 3 to 10 minutes Status at Discharge Functional status at discharge: independent ambulation Overall status at discharge: patient is back to baseline Time Spent with Patient Time attestation: Total time managing care of this patient today ____ minutes. Time spent: Greater than 30 minutes Discharge Plan Discharge Anticipated Discharge Date/Time: 12/05/23 23:30 Patient Disposition: Home, Self-Care Discharge Diagnosis: Bipolar disorder, single episode, manic(w/mixed symptoms including Catatonia), severe with psychotic symptoms, in full remission Referrals: Psych Prescriber: Queta Gregory ([facility]) [Other] - 12/12/23 12:00 pm (Hospital discharge appointment with psychiatric provider Appointment is in person at [facility], [address] [place] [address]) [facility]: Kayla Azevedo (Therapist) [Other] - 12/11/23 4:00 pm (Hospital Discharge appointment with therapist Appointment is by video (tele-health)) [facility]: (ECT) treatment [Other] - 12/09/23 6:00 am (ECT treatment Treatment scheduled for 12/09/23. Patient should arrive for appointment to the PACU unit at 6:00 am ) Ruma Alvarado MD [Physician] - 12/10/23 9:30 am Discharge Medications: No Action clozapine 50 mg tablet See Rx Instructions .ROUTE .COMPLEX Qty: 60 0RF Rx Instructions: take 1.5 tablets at bedtime for 3 days and then take 2 tabs at bedtime clonidine HCl 0.1 mg Tablet 0.1 mg PO Q4H PRN (Reason: anxiety) 30 Days Qty: 30 0RF Protocol: Hold for SBP< HOLD for SBP < : 90 trazodone 50 mg Tablet 50 mg PO BEDTIME PRN (Reason: Insomnia) 30 Days Qty: 30 0RF Rx Instructions: may repeat once if needed ondansetron 4 mg Tablet,Disintegrating 4 mg translingual Q6H PRN (Reason: Nausea And Vomiting) 30 Days Qty: 30 1RF lidocaine 5 % Ointment 1 appl topical Q7D PRN (Reason: numb area prior to blood draw) 30 Days Qty: 35.44 1RF Protocol: Apply to: Apply to: area prior to blood draw Discharge Orders: Discharge Order (Routine); Ordered 12/05/23 Ordered By: Hossein Smith Diet: Regular diet Activity on Discharge: As tolerated Stand Alone Forms: Patient Portal Discharge page, Community Support Print Language: Paraguayan Care Plan Goals: Maintain mood and safe behaviors Take medications as prescribed Continue to pursue sobriety Practice coping skills Continue with outpatient providers and reach out to them as needed Health Concerns: Mood stability and behaviors Chronic, Intermittent tachycardia Plan of Treatment: ECT scheduled for 12/09/23. Plan to be here at 6am however, Hospital will reach out to you to schedule exact time to arrive. Follow up with your PCP, psychiatric provider and other outpatient providers regarding above concerns Take medications as prescribed Assessment: Risk assessment at time of discharge:? Patient was interviewed prior to discharge and found to be fully oriented and without any SI or HI. Patient has improved insight and judgment and wants to continue treatment. Patient is not in imminent risk of harm to self or others and has a safety plan that includes presenting to the closest ER or calling 911 if feeling unsafe.? Patient has been observed closely by nursing and unit staff throughout admission; patient has not engaged in any behaviors that suggest dangerousness to self or others and has demonstrated appropriate behaviors and impulse control Discharge Date/Time: 12/05/23 11:47
[2023-12-04] MEDS: Ibuprofen 400 MG TABLET PO (18:14)
[2023-12-04] MEDS: ARIPiprazole 15 MG TABLET PO (20:01)
[2023-12-05 08:00] VITALS: BP 138/84; PULSE 96; RESP 19; TEMP 36.7; O2SAT 97
== END 2023-12-05 11:47 | disposition home or self-care (01) | DRG 753 ==
PROVIDERS: Psychiatry & Neurology Psychiatry; Admitting Provider Psychiatry & Neurology Psychiatry; Visit Provider Psychiatry & Neurology Psychiatry
PROC: GZB4ZZZ Other Electroconvulsive Therapy (ICD-10-PCS; CPT 90870; principal; 2023-11-20 08:00)
DX: F31.2 Bipolar disorder, current episode manic severe with psychotic features (principal); F06.1 Catatonic disorder due to known physiological condition; F79 Unspecified intellectual disabilities; N83.202 Unspecified ovarian cyst, left side; Z20.822 Contact with and (suspected) exposure to COVID-19; Z79.899 Other long term (current) drug therapy
CPT/HCPCS: 36415; 80048; 80053; 80061; 81001; 84484; 85025; 87086; 87635; 90870; 93005; J0330; J1596; J1805; J1885; J2060; J2250; J2405; J2704; J7120

== ENCOUNTER 2023-11-16 12:19 | Outpatient (BNV) | payer OTHER, SELFPAY | END 2023-11-30 18:11 | PROVIDERS: Admitting Provider Psychiatry & Neurology Psychiatry; Visit Provider Internal Medicine Cardiovascular Disease | DX: F25.9 Schizoaffective disorder, unspecified (principal); F06.1 Catatonic disorder due to known physiological condition | CPT/HCPCS: 93010 ==

== ENCOUNTER → 2023-11-16 12:19 | Outpatient (BNV) | payer OTHER, SELFPAY | PROVIDERS: Admitting Provider Psychiatry & Neurology Psychiatry; Visit Provider Psychiatry & Neurology Psychiatry | DX: F33.3 Major depressive disorder, recurrent, severe with psychotic symptoms (principal) | CPT/HCPCS: 90870 ==

== ENCOUNTER → 2023-11-16 12:19 | Outpatient (BNV) | payer OTHER, SELFPAY | PROVIDERS: Admitting Provider Psychiatry & Neurology Psychiatry; Visit Provider Psychiatry & Neurology Psychiatry | DX: F25.1 Schizoaffective disorder, depressive type (principal); F06.1 Catatonic disorder due to known physiological condition; F79 Unspecified intellectual disabilities; N83.202 Unspecified ovarian cyst, left side | CPT/HCPCS: 90870; 99231; 99232; 99238 ==

== ENCOUNTER 2023-12-09 05:41 | Day surgery (SDC) | payer OTHER, SELFPAY ==
[2023-12-09] VITALS (7 sets, daily range): BP systolic 99–162; BP diastolic 54–95; PULSE 84–103; RESP 16–22; TEMP 36.3–36.7; O2SAT 95–100; BMI 29.7
--- NOTE | 2023-12-09 06:57 | MHC.SHP ---
Pre-Procedural Eval Section A - 24 Hr Update-Section A only Date of Service: 12/09/23 The patient is an INPATIENT: Yes Changes since office visit: No Cold of Flu in the past 2 weeks, No New Medical Problems, No Changes in Medication and No Patient answered all questions The patient has been examined within 24 hours of the surgical procedure. The History & Physical has been completed within 30 days and I have reviewed it.: Yes Section B - Complete if H&P > 30 days Chief Complaint: depression Allergies: Allergies Allergy/AdvReac Type Severity Reaction Status Date / Time haloperidol AdvReac EPS Verified 11/15/23 12:43 metoprolol AdvReac Diarrhea Verified 10/07/23 23:43 Plan I have reviewed the history and physical and performed a pertinent physical examination on my patient. No changes have occurred unless specified. Time Spent With Patient Time: Total time managing care of this patient today ____ minutes.
--- NOTE | 2023-12-09 06:59 | HO.ECTPROC ---
ECT Procedure Note Diagnosis/Treatment Date of Service: 12/09/23 Diagnosis: Catatonia Previous ECT Date: 12/06/23 Current Treatment Number: 7 Treatment: Series Interval Clinical Notes: The patient is awake and alert, responding normally to verbal stimuli, able to answer questions. She denies hallucinations or delusions, her mood is brighter. She denies prior side effects. ECT done as usual, we decided to keep it to Right unilateral/left frontal since she has responded well. No change of parameters. No complications, woke up well. As usual, Midazolam gave after ECT. Time: Total time managing care of this patient today __30__ minutes. ECT Settings Device: THYMATRON DGx Electrode Placement: Rt temporal/ Lt frontal Program/Pulse Width: 0.25 Energy Percent: 60 Seizure Duration By EEG (in seconds): 50 By Motor Observation (in seconds): 0 Medications Administration General Anesthetic: Etomidate (14) Muscle Relaxant: Succinylcholine (80) Ancillary Medications Analgesics: Torodol - Pre ECT Anti-emetics: Zofran - Pre ECT Miscillaneous Medications: Midazolam (after ECT) Airway Management Airway Management: Bag Mask Ventilation Treatment Recommendations No Changes Recommended: No change Pt Tolerated Procedure w/o Issue: Yes
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
[2023-12-09] MEDS: Acetaminophen 325 MG TABLET 650 MG PO (08:30)
== END 2023-12-09 09:00 | disposition home or self-care (01) ==
PROVIDERS: PCP Internal Medicine; Visit Provider Psychiatry & Neurology Psychiatry
PROC: (CPT 90870; principal; 2023-12-09 07:00)
DX: F25.9 Schizoaffective disorder, unspecified (principal); F06.1 Catatonic disorder due to known physiological condition; F41.9 Anxiety disorder, unspecified; F79 Unspecified intellectual disabilities; Z88.8 Allergy status to other drugs, medicaments and biological substances; Z56.0 Unemployment, unspecified; Z79.899 Other long term (current) drug therapy
CPT/HCPCS: 90870; J0330; J1596; J1805; J1885; J2250; J2405; J2704

== ENCOUNTER → 2023-12-09 05:41 | Outpatient (BNV) | payer OTHER, SELFPAY | PROVIDERS: PCP Internal Medicine; Visit Provider Psychiatry & Neurology Psychiatry | DX: F33.3 Major depressive disorder, recurrent, severe with psychotic symptoms (principal) | CPT/HCPCS: 90870 ==

== ENCOUNTER 2023-12-10 09:18 | Outpatient (AMB) | payer OTHER, SELFPAY ==
[2023-12-10 10:02] VITALS: BP 118/72; PULSE 102; O2SAT 97; BMI 29.7
--- NOTE | 2023-12-10 10:02 | MHC.PC.OV ---
Vital Signs 12/10/23 10:02 Height 5 ft Weight 152 lb BMI 29.7 BP 118/72 Blood Pressure Location Lt brachial Position Sitting Pulse 102 H Pulse Source Pulse Oximeter Pulse Oximetry (%) 97 Oxygen Delivery Method Room Air Intake Visit Reasons: [facility], [facility] discharge on 12/04 Allergies haloperidol Adverse Reaction (Verified 12/10/23 10:27) EPS metoprolol Adverse Reaction (Verified 12/10/23 10:27) Diarrhea Medication List - Last Reconciled 12/10/23 by Ruma Alvarado MD aripiprazole 15 mg PO BEDTIME 30 days clonidine HCl 0.1 mg See Protocol PO Q4H PRN 30 days hydroxyzine HCl 25 mg PO Q6H PRN 30 days ondansetron 4 mg translingual Q6H PRN 7 days trazodone 50 mg PO BEDTIME PRN 30 days Tobacco use date assessed: 12/10/23 Dental Screening Dental Screen Date: 12/10/23 Did you have a dental visit in the last 12 months?: Yes Did you have a dental problem in the last 6 months where you did not have access to dental care?: No Was dental information given to patient?: Patient has dentist HPI [facility], y discharge on 12/04 HPI Details 23-year-old lady with bipolar disorder, with joana with mixed symptoms including catatonia and history of psychotic symptoms, now in full remission, here today for follow-up after recent admission at psych unit at [facility] for acute psychosis with very disorganized behavior and has catatonic like features and psychotic delirium. Medication trials were ineffective, and treated with ECT, had 7 ECT treatments since her admission, with good results , and back to her regular self, with very little memory of her behaviors and psychotic symptoms, was surprised to hear about them, denies suicidal ideations, no depression, no paranoid delusions, eating and drinking well and sleeping well. She still has some mild anxiety attacks now being treated with clonidine instead of Ativan She is currently followed at [facility] by her psychiatrist Queta Gregory, and sees Kayla Azevedo her therapist. She is scheduled for another ECT on 12/18/2023 at [facility] Medical History (Updated 12/12/23 @ 15:53 by Ruma Alvarado MD) Bipolar disorder in remission Supraventricular tachycardia Schizoaffective disorder Intellectual disability Contraception management Vitamin D deficiency Vitamin B12 deficiency Uses control Hx of ovarian cyst Epigastric abdominal pain Orthostatic hypotension Supraventricular tachycardia by ECG Left ovarian cyst Migraine Surgical History H/O removal of cyst Family History Mother Bipolar disorder Mental health disorder Social History (Updated 12/12/23 @ 15:40 by Ruma Alvarado MD) Household Members: Family Household Members Other:: Pt unable to answer questions d/t mental status. Housing: House Housing Other:: at home with mother Are you a primary care team assistant to a significant other at home: No Do you presently have visiting nurse or other home services: No Alcohol intake: never Patient Tobacco Use Status: Never used Tobacco e-Cigarette/Vaping Use: Never Used Second Hand Smoke Exposure: No Substance Use Type: Unknown service: No Current occupational status: unemployed Sexual orientation: Decline to Answer Gender identity: Female Cognitive needs: No Hearing needs: No Vision needs: No Female Reproductive History Menstrual Age of Menarche: 14 Questionnaire PHQ-9 Over the last 2 weeks, how often have you been bothered by any of the following problems? 1. Little interest or pleasure in doing things: not at all 2. Feeling down, depressed, or hopeless: not at all 3. Trouble falling or staying asleep, or sleeping too much: not at all 4. Feeling tired or having little energy: more than half the days 5. Poor appetite or overeating: not at all 6. Feeling bad about yourself - or that you are a failure or have let yourself or your family down: not at all 7. Trouble concentrating on things, such as reading the newspaper or watching television: several days 8. Moving or speaking so slowly that other people could have noticed. Or the opposite - being so fidgety or restless that you have been moving around a lot more than usual: not at all 9. Thoughts that you would be better off or of hurting yourself in some way: not at all Total score: 3 Depression Screening Interpretation: Negative Depression Screening Done: Yes 52856 - PHQ-9 Billing: Yes Source: Developed by Drs. Micheal Lassiter, Pippa Romero, Rick Munguia and colleagues, with an educational snow from [employer]. Thrive Questionnaire Date Thrive assessed: 12/10/23 I am a: Parent/Caregiver What is your living situation today?: I have a steady place to live Within the past 12 months, did the food you bought not last and you didn't have the money to get more?: Never true Within the past 12 months, did you worry whether your food would run out before you got money to buy more?: Never true Do you have trouble paying for medicines?: No Do you have trouble getting transportation to medical appointments?: No Do you have trouble paying your heating and electricity bill?: No Do you have trouble taking care of your child, family member or friend?: No Do you have trouble with day-to-day activities such as bathing, preparing meals, shopping, managing finances, etc.?: No Are you currently unemployed and looking for a job?: No Are you interested in more education?: No THRIVE Score: 0 AUDIT C Alcohol Use Questionnaire (AUDIT-C) 1. How often do you have a drink containing alcohol?: Never 3. How often do you have six or more drinks on one occasion?: Never Total Score: 0 EDWIN-7 AMB Questionnaire EDWIN-7 Date EDWIN - 7 assessed: 12/10/23 Feeling nervous, anxious, or on edge: 1 = Several days Not being able to stop or control worryin = Several days Worrying too much about different things: 1 = Several days Trouble relaxin = Not at all Being so restless that it is hard to sit still: 0 = Not at all Becoming easily annoyed or irritable: 0 = Not at all Feeling afraid as if something awful might happen: 0 = Not at all Total EDWIN-7 score (0-4 normal; 5-9 mild; 10-14 moderate; 15-21 severe): 3 Source: Developed by Drs. Micheal Lassiter, Pippa Romero, Rick Munguia and colleagues, with an educational snow from [employer]. EDWIN-7 Assessment Billing EDWIN-7 Assessment Tool: EDWIN-7 Assessment 01516 ([email or web address] Review of Systems Const Denies chills, Reports fatigue, Denies fever(s), Denies malaise and Denies weakness Eyes Reports no additional complaints ENT Reports no additional complaints and Denies dizziness Card Denies chest pain, Denies chest pain with activity, Denies syncope, Denies edema, Denies claudication, Denies leg edema, Denies lightheadedness, Denies palpitations, Denies dyspnea and Denies dyspnea on exertion Resp Denies cough, Denies excessive phlegm production, Denies dyspnea, Denies dyspnea on exertion and Denies wheezing GI Denies abdominal pain, Denies hematochezia, Denies change in bowel habits, Denies change in stool character, Denies heartburn, Denies nausea and Denies vomiting Denies hematuria, Denies urinary frequency and Denies dysuria Musc Denies arthralgias, Denies muscle weakness, Denies numbness and Denies tingling Neuro Denies Abnormal speech present, Denies confusion, Denies dizziness, Denies syncope, Reports memory loss (Status post ECT), Denies numbness, Denies Sensory deficit (Neuro), Denies tingling and Denies weakness Psych Denies confusion, Denies depression and Reports memory loss (Status post ECT) Endo Reports fatigue and Denies palpitations Kurtis/Lymph Denies easy bleeding and Denies easy bruising Aller/Immun Denies wheezing Physical exam (Primary Care) Vital Signs: Last Vital Signs Pulse 102 H 12/10/23 10:02 BP 118/72 12/10/23 10:02 Pulse Ox 97 12/10/23 10:02 Oxygen Delivery Method Room Air 12/10/23 10:02 BMI result Body Mass Index 29.7 Tobacco/Smoking Status: Tobacco use Status Tobacco use date assessed 12/10/23 12/10/23 10:09 Patient Tobacco Use Status Never used Tobacco 12/10/23 10:09 e-Cigarette/Vaping Use Never Used 12/10/23 10:09 PHQ-9: PHQ-9 Score PHQ-9: Total score 3 12/12/23 15:44 Depression Screening Interpretation: Negative Thrive Assessment: Date of Thrive Assessment Date Thrive assessed 12/10/23 12/10/23 10:46 Const Other: Accompanied by mother, normal gait General: cooperative, comfortable, no acute distress and alert; No confusion Nutritional Appearance: obese Orientation/consciousness: No confusion HENMT Head: Yes normocephalic and Yes atraumatic Ears: hearing grossly normal bilaterally and external ears normal General nose exam: Normal external nose present Face and sinus: Yes face symmetric Eyes General: appearance normal, both eyes and all related structures Neck Neck: Yes full ROM, Yes no lymphadenopathy and Yes supple Resp Auscultation: clear to auscultation bilaterally Cardio Rate: regular rate Rhythm: regular rhythm Heart sounds: S1 normal heart sound present and S2 normal heart sound present GI Palpation (GI): Soft to palpation, no guarding and no masses Auscultation: normal bowel sounds General: Yes no CVA tenderness Back/Spine/Pelvis Back: no CVA tenderness and No back tenderness Skin General skin exam: no rashes or lesions noted Neuro General: No confusion Speech: No Abnormal speech present Sensory Exam: No Sensory deficit (Neuro) Extrem General: Yes full ROM, Yes no joint enlargement and Yes no clubbing, cyanosis or edema Psych Appearance: grossly normal and well kempt Mental Status: mental status grossly normal Speech and movement: Normal speech and movement present Affect: normal affect Attitude: cooperative Assessment and Plan Assessment & Plan (1) Bipolar disorder in remission: Code(s): F31.70 - Bipolar disorder, currently in remission, most recent episode unspecified Plan: Received 7 ECT treatments since her admission at [place], now back to her baseline, still having some anxiety attacks which is being treated with clonidine, continued on aripiprazole hydroxyzine and trazodone and is followed at [facility] by making request her psychiatrist and sees a therapist there regularly. (2) History of psychosis: Code(s): Z86.59 - Personal history of other mental and behavioral disorders Plan: Received 7 ECT treatments since her admission at [place], now back to her baseline, still having some anxiety attacks which is being treated with clonidine, continued on aripiprazole hydroxyzine and trazodone and is followed at [facility] by making request her psychiatrist and sees a therapist there regularly. She will be scheduled for future ECT treatments Coding Level of Care Code Est Pt Level 4 (86920) Diagnoses Bipolar disorder in remission F31.70 History of psychosis Z86.59 Additional Codes EDWIN-7 Assessment Billing - EDWIN-7 Assessment Tool: EDWIN-7 Assessment 60893 ([id number])
== END 2023-12-10 10:52 | disposition home or self-care (01) ==
PROVIDERS: PCP Internal Medicine; Visit Provider Internal Medicine
DX: F31.70 Bipolar disorder, currently in remission, most recent episode unspecified (principal); Z86.59 Personal history of other mental and behavioral disorders
CPT/HCPCS: 99214

== ENCOUNTER → 2023-12-11 08:14 | Outpatient (REF) | payer OTHER, SELFPAY ==
--- NOTE | 2023-12-11 08:21 | ECG_ITS ---
Test Reason : svt Blood Pressure : / mmHG Vent. Rate : 094 BPM Atrial Rate : 094 BPM P-R Int : 148 ms QRS Dur : 082 ms QT Int : 320 ms P-R-T Axes : 034 064 046 degrees QTc Int : 400 ms Normal sinus rhythm with sinus arrhythmia Normal ECG When compared with ECG of 01-DEC-2023 15:02, No significant change was found Referred By: Solitario Méndez Electronically Signed By:JOHANNA TORRES MD
[2023-12-11 08:33] LABS: MANUAL DIFF FLAG NO
[2023-12-11 09:08] LABS: Basophils Percent Auto 0.4 % (0-2); Eosinophils Absolute Auto 0.2 X10*3/uL (0.0-0.4); Eosinophils Percent Auto 1.4 % (0-4); Hemoglobin 11.7 g/dl (12.0-16.0); Imm Gran Abs Auto 0.03 X10*3/uL (0.00-0.03); Imm Gran Pct Auto 0.3 % (0.0-0.4); Lymphocytes Percent Auto 18.4 % (20-40); Mean Corpuscular HGB Conc 31.6 g/dl (31.0-35.0); Mean Corpuscular Hemoglobin 27.1 pg (27.0-33.0); Mean Corpuscular Volume 85.6 fL (80.0-98.0); Mean Platelet Volume 10.6 fL (9.4-12.3); Monocytes Absolute Auto 0.8 X10*3/uL (0.1-1.2); Neutrophils Absolute Auto 7.7 x10*3/uL (2.0-8.3); Neutrophils Percent Auto 72.5 % (45-73); Platelet Count 460 X10*3/uL (160-400); Red Blood Count 4.32 X10*6/uL (4.20-5.50); White Blood Count 10.6 X10*3/uL (4.8-10.8)
[2023-12-11 09:43] LABS: Alanine Aminotransferase 17 U/L (0-31); Albumin Level 4.1 g/dL (3.5-5.0); Alkaline Phosphatase 86 U/L (39-117); Anion Gap 11 (12-20); Aspartate Amino Transferase 16 U/L (5-31); Bilirubin Total 0.4 mg/dL (0.0-1.0); Blood Urea Nitrogen 5 mg/dL (9-16); Calcium 9.8 mg/dL (8.4-10.2); Carbon Dioxide 27 mmol/L (22-29); Chloride 106 mmol/L (96-108); Estimated Glomerular Filt Rate > 60; Glucose Random 91 mg/dL (60-115); Potassium 4.2 mmol/L (3.3-5.1); Sodium 140 mmol/L (135-145); Total Protein 7.5 g/dL (6.5-8.0)
[2023-12-11 11:38] LABS: Folate 2.9 ng/mL (> or = 4.0); Vitamin B12 290 pg/mL (200-900)
== END ==
LOC: HO.CARD 08:14
PROVIDERS: PCP Internal Medicine; Visit Provider Psychiatry & Neurology Psychiatry
DX: Z01.818 Encounter for other preprocedural examination (principal); I47.10 Supraventricular tachycardia, unspecified; F33.3 Major depressive disorder, recurrent, severe with psychotic symptoms; E53.8 Deficiency of other specified B group vitamins
CPT/HCPCS: 36415; 80053; 82607; 82746; 85025; 93005

== ENCOUNTER → 2023-12-11 08:21 | Outpatient (BNV) | payer OTHER, SELFPAY | PROVIDERS: PCP Internal Medicine; Visit Provider Internal Medicine Cardiovascular Disease | DX: I47.10 Supraventricular tachycardia, unspecified (principal) | CPT/HCPCS: 93010 ==

== ENCOUNTER 2023-12-15 19:08 | Inpatient (IN) | payer OTHER, SELFPAY ==
--- NOTE | ~2023-12-15 | XR_ITS ---
EXAMINATION: XR lumbar spine 2-3V XR sacrum coccyx min 2V CLINICAL INFORMATION: s/p fall COMPARISON: None TECHNIQUE: AP and lateral views of the lumbar spine, 3 images. AP and lateral views of the sacrum, 3 images. FINDINGS: Lumbar spine: Vertebral body heights are normal. No fracture or spondylolisthesis. Intervertebral disc heights are maintained without significant degenerative disc disease. Neural foramina are maintained. Bone mineralization is normal. Soft tissues are unremarkable. Sacrum: The sacrum is intact. Left sacroiliac joint is slightly widened relative to the right side, which is likely positional. The visualized pelvis is intact. Bilateral femoral heads are well-seated within the acetabulum. No abnormal soft tissue calcifications. XR/XR sacrum coccyx min 2V IMPRESSION: No acute fracture of the lumbar spine or sacrum.
--- NOTE | ~2023-12-15 | XR_ITS ---
EXAMINATION: XR lumbar spine 2-3V XR sacrum coccyx min 2V CLINICAL INFORMATION: s/p fall COMPARISON: None TECHNIQUE: AP and lateral views of the lumbar spine, 3 images. AP and lateral views of the sacrum, 3 images. FINDINGS: Lumbar spine: Vertebral body heights are normal. No fracture or spondylolisthesis. Intervertebral disc heights are maintained without significant degenerative disc disease. Neural foramina are maintained. Bone mineralization is normal. Soft tissues are unremarkable. Sacrum: The sacrum is intact. Left sacroiliac joint is slightly widened relative to the right side, which is likely positional. The visualized pelvis is intact. Bilateral femoral heads are well-seated within the acetabulum. No abnormal soft tissue calcifications. XR/XR lumbar spine 2-3V IMPRESSION: No acute fracture of the lumbar spine or sacrum.
[2023-12-15 19:30] VITALS: BP 137/91; PULSE 147; RESP 18; TEMP 36.6; O2SAT 100; BMI 29.7
--- NOTE | 2023-12-15 20:07 | ED_ITS ---
HPI - General Adult General Chief complaint: Psychiatric Symptoms Stated complaint: vomiting, crisis? Time Seen by Provider: 12/15/23 20:06 Source: patient Mode of arrival: ambulatory Limitations: no limitations History of Present Illness HPI narrative: Patient is a 23 year old assigned female at with a history of bipolar disorder and MDD presenting to the emergency department today with increased auditory hallucinations. Patient states that she is hearing more voices and hearing things she knows are not there. Patient denies any dizziness, lightheadedness, abdominal pain, nausea, vomiting, fever, chills, blurry vision, double vision, loss of vision, chest pain, difficulty breathing, shortness of breath, back pain, night sweats, pain with urination, increased urinary frequency, increased urinary urgency, blood in her urine or stool, syncope or a near syncopal episode, recent trauma or falls, bowel incontinence, bladder incontinence, bowel retention, bladder retention, or any other complaints at th is time. Relieving factors: none Exacerbating factors: none Associated symptoms: denies other symptoms Treatments prior to arrival: none Related Data Previous Rx's ?Medication ?Instructions ?Recorded aripiprazole 15 mg tablet 15 mg PO BEDTIME 30 days #30 tabs 12/04/23 clonidine HCl 0.1 mg tablet 0.1 mg PO Q4H PRN mild anxiety 12/04/23 (try 1st) 30 days #90 tabs hydroxyzine HCl 25 mg tablet 25 mg PO Q6H PRN Anxiety 30 days 12/04/23 #90 tabs ondansetron 4 mg disintegrating 4 mg translingual Q6H PRN Nausea 12/04/23 tablet And Vomiting 7 days #14 tabs trazodone 50 mg tablet 50 mg PO BEDTIME PRN Insomnia 30 12/04/23 days #30 tabs Allergies Allergy/AdvReac Type Severity Reaction Status Date / Time haloperidol AdvReac EPS Verified 12/15/23 19:33 metoprolol AdvReac Diarrhea Verified 12/15/23 19:33 Review of Systems Constitutional: Constitutional: Reports no additional constitutional complaints, Denies chills, Denies fever(s) and Denies night sweats Eyes: Eyes: Reports no additional eye complaints, Denies blurry vision, Denies change in vision, Denies diplopia, Denies eye discharge, Denies loss of vision and Denies eye pain ENT: Denies dizziness Cardiovascular: Cardiovascular: Reports no additional cardiovascular complaints, Denies chest pain, Denies lightheadedness, Denies Loss of Consciousness and Denies dyspnea Respiratory: Respiratory: Reports no additional respiratory complaints and Denies dyspnea Gastrointestinal: Gastrointestinal: Reports no additional gastrointestinal complaints, Denies abdominal pain, Denies melena, Denies hematochezia, Denies change in bowel habits and Denies change in stool character Genitourinary: Genitourinary: Denies hematuria, Denies urinary frequency, Denies dysuria, Denies urinary incontinence, Denies urinary hesitancy and Denies urinary urgency Musculoskeletal: Musculoskeletal: Reports no additional musculoskeletal complaints, Denies numbness and Denies tingling Neurologic: Denies dizziness, Denies loss of vision, Denies numbness and Denies tingling Psychiatric: Psychiatric: Reports no additional psychiatric complaints and Reports auditory hallucinations Endocrine: Endocrine: Reports no additional endocrine complaints Hematologic/Lymphatic: Hematologic/Lymphatic: Reports no additional hematologic/lymphatic complaints Allergic/Immunologic: Allergic/Immunologic: Reports no additional allergic/immunologic complaints PMF Past Medical History Attestation statement: The following information was validated with the patient. Source: old records reviewed and nursing notes reviewed Medical History Bipolar disorder in remission Supraventricular tachycardia Schizoaffective disorder Intellectual disability Contraception management Vitamin D deficiency Vitamin B12 deficiency Uses control Hx of ovarian cyst Epigastric abdominal pain Orthostatic hypotension Supraventricular tachycardia by ECG Left ovarian cyst Migraine Surgical History H/O removal of cyst Family History Family History Mother Bipolar disorder Mental health disorder Social History Social History Household Members: Family Household Members Other:: Pt unable to answer questions d/t mental status. Housing: House Housing Other:: at home with mother Are you a primary pharmacy customer care specialist to a significant other at home: No Do you presently have visiting nurse or other home services: No Alcohol intake: never Patient Tobacco Use Status: Never used Tobacco e-Cigarette/Vaping Use: Never Used Second Hand Smoke Exposure: No Substance Use Type: Unknown Advance Directives: Yes Advance Directives on File: Yes Advance Directives Date on File: 12/10/23 Do you have a plan to hurt others: No Plan service: No Current occupational status: unemployed Sexual orientation: Decline to Answer Gender identity: Female Cognitive needs: No Hearing needs: No Vision needs: No Physical Exam ED Vital Signs: Vital Signs - 24 hr 12/15/23 19:30 Temperature 97.8 F Pulse Rate 147 H Respiratory Rate 18 Blood Pressure 137/91 H Pulse Oximetry 100 Oxygen Delivery Method Room Air BMI result Body Mass Index 29.7 Const General: cooperative, no acute distress, alert and awake Nutritional Appearance: well nourished Orientation/consciousness: patient oriented x3 Limitations: no limitations HENMT Head: Yes normal to inspection and Yes atraumatic Ears: hearing grossly normal bilaterally and external ears normal General nose exam: Normal external nose present, no nasal discharge noted and no epistaxis Face and sinus: Yes normal facial exam, No abrasion and No laceration Mouth: Normal oral and palatal mucosa present, no drooling and no muffled voice Eyes General: appearance normal, both eyes and all related structures Periorbital: periorbital findings normal Eyelids: Yes eyelids normal Conjunctivae: conjunctivae normal Pupils: Equal, round and reactive pupils present EOM: EOMs intact bilaterally Neck Neck: Yes normal visual inspection, Yes full ROM and Yes no lymphadenopathy Chest Chest palpation & inspection: normal inspection of the chest Resp Effort & Inspection: normal respiratory effort and able to speak in complete sentences GI Inspection: Yes normal to inspection Neuro General: patient oriented x3 and moves all extremities Cranial nerves: Yes Equal, round and reactive pupils present Cognition (Neuro): normal cognition Motor exam (neuro): 5/5 motor strength present throughout Sensory Exam: Normal double simultaneous stimulation for sensation Coordination: [id number] test normal Extrem General: Yes normal to inspection, Yes full ROM and Yes capillary refill normal Psych Affect: Labile affect present Thought process: Confabulating thought process present Thought content: Hallucination(s) present auditory Medications Administered Generic Name Dose Route Start Last Admin Trade Name Freq PRN Reason Stop Dose Admin Aripiprazole 15 mg 12/15/23 21:00 12/15/23 21:10 Aripiprazole 15 Mg Tablet PO 15 mg BEDTIME KRISTI Administration Clonidine HCl 0.1 mg 12/15/23 20:21 12/15/23 22:47 Clonidine Hcl 0.1 Mg Tablet PO 0.1 mg Q4H PRN Administration mild anxiety (try 1st) Protocol Trazodone HCl 50 mg 12/15/23 20:21 12/15/23 22:47 Trazodone Hcl 50 Mg Tablet PO 50 mg BEDTIME PRN Administration Insomnia Discontinued Medications Generic Name Dose Route Start Last Admin Trade Name Freq PRN Reason Stop Dose Admin Lorazepam 2 mg 12/15/23 20:21 12/15/23 21:03 Lorazepam 1 Mg Tablet PO 12/15/23 20:22 2 mg ONCE ONE Administration Medical Decision Making Medical Decision Making [facility] Narrative: Patient is a 23 year old assigned female at with a history of bipolar disorder and MDD presenting to the emergency department today with auditory hallucinations. Patient's physical exam was as noted in the physical exam portion of this note. Patient's blood work is pending. Patient's urine is pending. Patient's dispostion will be determined after the patient's blood work results, urine results, and the CARE team evaluates the patient. Differential Diagnosis Differential Diagnoses: The differential diagnosis associated with the presentation includes Auditory hallucinations Admission/Observation Consideration of admission/observation: Escalation of care including admission/observation considered Patient's disposition will be determined after work up results and CARE team evaluation. Discharge Plan Discharge Clinical Impression: Auditory hallucination Patient Disposition: Still a Patient Prescriptions: No Action clonidine HCl 0.1 mg Tablet 0.1 mg PO Q4H PRN (Reason: mild anxiety (try 1st)) 30 Days Qty: 90 0RF Protocol: Hold for SBP< HOLD for SBP < : 90 aripiprazole 15 mg Tablet 15 mg PO BEDTIME 30 Days Qty: 30 0RF hydroxyzine HCl 25 mg Tablet 25 mg PO Q6H PRN (Reason: Anxiety) 30 Days Qty: 90 0RF ondansetron 4 mg Tablet,Disintegrating 4 mg translingual Q6H PRN (Reason: Nausea And Vomiting) 7 Days Qty: 14 1RF trazodone 50 mg Tablet 50 mg PO BEDTIME PRN (Reason: Insomnia) 30 Days Qty: 30 0RF Print Language: Pakistani
--- NOTE | 2023-12-15 20:09 | PC.NURSE ---
Assumed care for pt. Pt is wandering around the pod, starying around the exit doors. Requires constant redirection to stay away from the exit door. 1:1 staff with pt for safety. Pending physician evaluation.
[2023-12-15] MEDS: LORazepam 1 MG TABLET 2 MG PO (21:03)
[2023-12-15] MEDS: ARIPiprazole 15 MG TABLET PO (21:10)
[2023-12-15] MEDS: traZODone HCL 50 MG TABLET PO (22:47)
[2023-12-15] MEDS: cloNIDine HCL 0.1 MG TABLET PO (22:47)
--- NOTE | 2023-12-16 | ECG_ITS ---
Test Reason : ect clearence Blood Pressure : / mmHG Vent. Rate : 126 BPM Atrial Rate : 126 BPM P-R Int : 158 ms QRS Dur : 084 ms QT Int : 298 ms P-R-T Axes : 045 064 -13 degrees QTc Int : 431 ms Sinus tachycardia Nonspecific ST and T wave abnormality Abnormal ECG When compared with ECG of 11-DEC-2023 08:23, Nonspecific ST and T wave abnormality inferior leads Referred By: Michelle Gary Electronically Signed By:LEN EDWARDS
[2023-12-16] MEDS: Ondansetron ODT 4 MG TAB.RAPDIS TRANSLINGU (01:05)
[2023-12-16] MEDS: hydrOXYzine HCL 25 MG TABLET PO ×2 (01:05→23:54)
--- NOTE | 2023-12-16 02:20 | PC.NURSE ---
Pt awake and confused. Soft spoken. Pacing in the common areas. Attempting to enter into other patients rooms, and attempting to open the door to leave. Able to be redirected for a short term with continued behavior. Pt has been medicated as per MAR with no effect. Pt is unable to provide a urine sample at this time. Labs unable to be drawn as pt is restless and pacing. Provider aware. Monitoring and redirection is ongoing.
[2023-12-16 02:35] VITALS: BP 148/89; PULSE 126; RESP 17; TEMP 37; O2SAT 97
[2023-12-16] MEDS: OLANZapine ODT 10 MG TAB.RAPDIS TRANSLINGU (03:47)
[2023-12-16] MEDS: LORazepam 1 MG TABLET 2 MG PO (03:47)
--- NOTE | 2023-12-16 05:01 | PC.NURSE ---
Pt noted to be sleeping at the bedside. Breaths are even regular and unlabored. Monitoring ongoing.
--- NOTE | 2023-12-16 06:55 | PC.NURSE ---
Assumed care of patient. Patient is observed sleeping. No distress observed. Breathing is even and unlabored. Will continue plan of care.
[2023-12-16 10:10] VITALS: BP 130/86; PULSE 120; RESP 16; TEMP 36.6; O2SAT 99
--- NOTE | 2023-12-16 10:27 | PC.NURSE ---
Behavioral observation The patient is observed with increasing behaviors that are unsafe. The patient is not receptive to staff redirection and is continually attempting to elope from the unit. Patient keeps making statements that someone is killing her family. PO PRN medications were offered by RN but were declined by the patient. Will continue plan of care.
[2023-12-16] MEDS: OLANZapine 10 MG VIAL IM (10:44)
--- NOTE | 2023-12-16 10:46 | PC.NURSE ---
Medication Administration Patient was refusing oral medications and MD was made aware. Patient verbalized that she was receptive to IM medications to the MD and RN. Medication was administered safely without incident.
[2023-12-16 11:54] LABS: Urine Pregnancy NEGATIVE (NEGATIVE)
[2023-12-16 11:55] LABS: UPreg QC Valid YES
[2023-12-16 12:18] LABS: Amphetamine Screen Urine Not Detected (Not Detect); Barbiturates, Urine Not Detected (Not Detect); Benzodiazepines Screen Urine Not Detected (Not Detect); Buprenorphine Scr Not Detected (Not Detect); Cannabinoid Screen Urine Not Detected (Not Detect); Cocaine Screen Urine Not Detected (Not Detect); Fentanyl, urine Not Detected (Not Detect); Methadone Screen, Urine Not Detected (Not Detect); Opiate Screen Urine Not Detected (Not Detect); Oxycodone Screen Urine Not Detected (Not Detect); Phencyclidine Screen Urine Not Detected (Not Detect)
[2023-12-16 13:16] LABS: Appearance Urine Cloudy; Color Urine Yellow; Glucose Urine UA Negative (Negative); Leukocyte Esterase Urine Trace (Negative); Nitrite Urine Positive (Negative); UMIC TRIGGER UA YES; Urine Blood Negative (Negative); Urine Ketones Negative (Negative); Urine Protein Negative (Neg-Trace)
--- NOTE | 2023-12-16 13:18 | PHA.MEDREC ---
Pharmacy Consult ? Medication Reconciliation Pharmacy has completed the medication reconciliation. Pharmacy has reviewed the med rec done by nursing
[2023-12-16 13:21] LABS: Bacteria Urine 4+ (None Seen); Hyaline Casts Urine 0-2 /LPF (0-2); RBC Urine 0-2 /HPF (0-2); WBC Urine 0-5 /HPF (0-5)
--- NOTE | 2023-12-16 13:55 | PM.EVENT ---
Event Note Date of Service: 12/16/23 Event Note: 23 year old female with history of schizoaffective disorder, bipolar disorder, cognitive delay, GERD, and chronic sinus tachcyardia admitted to psychiatry with consult placed to hospitalist service for ect evaluation. She is a very limited historian and does not contribute much to history. Medical record reviewed in EMR and discussed with psychiatry. No known history of seizures. No known history of cardiovascular disease. Was recently admitted to medicine with echocardiogram performed due to syncopal episode (pt with severe dehydration as had not been eating or drinking for several days). Echo showed hyperdynamic LV systolic function EF >70% with normal diastolic dysfunction for age. No valvular abnormality, no regional wall motion abnormality. EKG shows sinus tach, rate 121, no acute st/t wave abnornormaly. Renal function baseline, lytes normal. Head CT and LP ordered due to encephalopathy. head CT unremarkable. LP with normal protein, autoimmune panel pending and will likely take weeks to result. Encephalopathy likely related to depression/psychosis. During last admission to psychiatry did experience an episode of atypical chest pain with ekg unchanged from priors and undetectable troponin. Currently reporting similar sharp reproducible chest pain. EKG performed during exam shows sinus tach, rate 125 without any acute ischemic changes. Non specific t wave abnormality is related to rate. No further cardiac work up recommended. Will repeat EKG now. However, at this time, chart reviewed and no medical contraindication exists that should preclude patient from undergoing ECT Time Spent With Patient Time: Total time managing care of this patient today ____ minutes.
[2023-12-16] MEDS: LORazepam 1 MG TABLET PO (14:01)
--- NOTE | 2023-12-16 16:55 | PC.ADMIT ---
Pt admitted on this unit as 12b for legal status, at 1330. She arrived via w/c from [facility]. Precipitating event was an increase in AH at home. Per crisis report: Pt states that she is hearing more voices and hearing things she knows are not there . Pt has a flat blank stare on her face, her speech content is extremely limited, and she is paranoid about her food and medicine. She did however, accept the Ativan that was offered. Pt. unable to participate in admission process, due to mental status.
[2023-12-16 17:45] VITALS: BMI 28.3
[2023-12-16 20:00] VITALS: BP 131/94; PULSE 130; RESP 18; TEMP 36.6; O2SAT 98
[2023-12-16] MEDS: ARIPiprazole 15 MG TABLET PO (21:54)
[2023-12-16] MEDS: traZODone HCL 50 MG TABLET PO (23:54)
[2023-12-17 05:00] VITALS: BP 150/119; PULSE 119; O2SAT 98
[2023-12-17] MEDS: hydrOXYzine HCL 25 MG TABLET PO ×2 (08:21→16:04)
[2023-12-17 10:47] VITALS: BP 131/89; PULSE 112; RESP 16; TEMP 36.8; O2SAT 99
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
[2023-12-17 16:04] VITALS: BP 139/79
[2023-12-17] MEDS: cloNIDine HCL 0.1 MG TABLET PO (16:04)
[2023-12-17 20:00] VITALS: BP 138/91; PULSE 135; TEMP 36.9; O2SAT 97
[2023-12-17] MEDS: traZODone HCL 50 MG TABLET PO (21:10)
[2023-12-17] MEDS: ARIPiprazole 15 MG TABLET PO (21:10)
[2023-12-18] VITALS (16 sets, daily range): BP systolic 96–135; BP diastolic 44–82; PULSE 86–128; RESP 14–20; TEMP 36.3–38.3; O2SAT 94–100
[2023-12-18] MEDS: traZODone HCL 50 MG TABLET PO (00:14)
[2023-12-18] MEDS: LORazepam 1 MG TABLET 2 MG PO (06:46)
--- NOTE | 2023-12-18 06:50 | HO.ANESPROP2 ---
[facility] Active Problems Active Problems: All Active Problems Catatonia (Acute) Auditory hallucination (Acute) Bipolar disorder in remission (Acute) Pre-op evaluation (Acute) Supraventricular tachycardia (Acute) Schizoaffective disorder (Acute) Intellectual disability (Acute) Major depressive disorder, recurrent episode, severe, with psychosis (Chronic) Contraception management (Acute) Vitamin D deficiency (Acute) Vitamin B12 deficiency (Acute) Uses control (Acute) Supraventricular tachycardia by ECG (Acute) Migraine (Acute) Past Medical History Medical History Bipolar disorder in remission Supraventricular tachycardia Schizoaffective disorder Intellectual disability Contraception management Vitamin D deficiency Vitamin B12 deficiency Uses control Hx of ovarian cyst Epigastric abdominal pain Orthostatic hypotension Supraventricular tachycardia by ECG Left ovarian cyst Migraine Family History Family History Mother Bipolar disorder Mental health disorder Family history of problems with anesthesia: No Surgical History Surgical History H/O removal of cyst History of Problems with Anesthesia: No Social History Social History Household Members: Family Household Members Other:: Pt unable to answer questions d/t mental status. Housing: House Housing Other:: at home with mother Are you a primary administrator health care facility to a significant other at home: No Alcohol intake: never Patient Tobacco Use Status: Never used Tobacco e-Cigarette/Vaping Use: Never Used Second Hand Smoke Exposure: No Substance Use Type: Unknown Advance Directives Date on File: 12/10/23 service: No Current occupational status: unemployed Sexual orientation: Decline to Answer Gender identity: Female Cognitive needs: No Hearing needs: No Vision needs: No Meds Allergies Allergy/AdvReac Type Severity Reaction Status Date / Time haloperidol AdvReac EPS Verified 12/15/23 19:33 metoprolol AdvReac Diarrhea Verified 12/15/23 19:33 Active Medications: Current Medications Acetaminophen (Acetaminophen 325 Mg Tablet) 650 mg PO Q6H PRN PRN Reason: Headache/Pain Mild Scale (1-3) Al Hydroxide/Mg Hydroxide (Magnesium Hydrox/Alum Hydrox 30 Ml Oral.Susp) 30 ml PO Q6H PRN PRN Reason: Heartburn/Nausea Aripiprazole (Aripiprazole 15 Mg Tablet) 15 mg PO BEDTIME KRISTI Last Admin: 12/17/23 21:10 Dose: 15 mg Clonidine HCl (Clonidine Hcl 0.1 Mg Tablet) 0.1 mg PO Q4H PRN; Protocol PRN Reason: mild anxiety (try 1st) Last Admin: 12/17/23 16:04 Dose: 0.1 mg Hydroxyzine HCl (Hydroxyzine Hcl 25 Mg Tablet) 25 mg PO Q6H PRN PRN Reason: Anxiety Last Admin: 12/17/23 16:04 Dose: 25 mg Hydroxyzine HCl (Hydroxyzine Hcl 25 Mg Tablet) 25 mg PO Q6H PRN PRN Reason: Anxiety Lactated Ringer's (Lr) 1,000 mls @ 50 mls/hr IVCONT .Q20H KRISTI Magnesium Hydroxide (Milk Of Magnesia 30 Ml Oral.Susp) 30 ml PO DAILY PRN PRN Reason: Constipation Ondansetron HCl (Ondansetron Odt 4 Mg Tab.Rapdis) 4 mg TRANSLINGU Q6H PRN PRN Reason: Nausea And Vomiting Last Admin: 12/16/23 01:05 Dose: 4 mg Trazodone HCl (Trazodone Hcl 50 Mg Tablet) 50 mg PO BEDTIME PRN PRN Reason: Insomnia Last Admin: 12/16/23 23:54 Dose: 50 mg Trazodone HCl (Trazodone Hcl 50 Mg Tablet) 50 mg PO BEDTIME MRX1 PRN PRN Reason: Insomnia Last Admin: 12/18/23 00:14 Dose: 50 mg Exam Height,Weight and Vital Signs: Height 5 ft Weight 65.8 kg Last Vital Signs Temp 97.6 F 12/18/23 06:31 Pulse 120 H 12/18/23 06:31 Resp 16 12/18/23 06:31 BP 115/71 12/18/23 06:31 Pulse Ox 100 12/18/23 06:31 O2 Del Method Room Air 12/18/23 06:31 Pertinent Lab Results Pertinent Lab Results: Laboratory Tests 12/16/23 11:42 Urine Color Yellow Urine Appearance Cloudy Urine pH 7.0 Ur Specific [place] 1.010 Urine Protein Negative Urine Glucose (UA) Negative Urine Ketones Negative Urine Blood Negative Urine Nitrite Positive H Ur Leukocyte Esterase Trace H Urine RBC 0-2 Urine WBC 0-5 Ur Squamous Epith Cells 6-10 Urine Bacteria 4+ Hyaline Casts 0-2 Urine Test NEGATIVE Urine Opiates Screen Not Detected Ur Buprenorphine Scrn Not Detected Ur Oxycodone Screen Not Detected Urine Methadone Screen Not Detected Urine Fentanyl Screen Not Detected Ur Barbiturates Screen Not Detected Ur Phencyclidine Scrn Not Detected Ur Amphetamines Screen Not Detected U Benzodiazepines Scrn Not Detected Urine Cocaine Screen Not Detected U Marijuana (THC) Screen Not Detected Airway Mallampati Class: II TM Dist: >3cm Neck ROM: Full Heart: rrr Lungs: cta Assessment and Plan Assessment Anesthesia Assessment: Anesthesia Plan Discussed and Chart Reviewed Final Anesthetic Review Family History of Problems with Anesthesia: No History of Problems with Anesthesia: No NPO: Yes ASA Class: III Final Preanesthetic Review: No Changes in Pt Med Stat, Meds/Allgs Chart Reviewed and Consent Obtained/Reviewed Patient Risk: Intermediate Procedure Risk: Intermediate Anesthetic Plan Anesthetic Plan: GA Disposition: Standard PACU
[2023-12-18] MEDS: OLANZapine ODT 10 MG TAB.RAPDIS TRANSLINGU (06:52)
--- NOTE | 2023-12-18 06:56 | PC.NURSE ---
Pt given po ativan and olanzapine odt, pt spit out both meds, sts they are cyanide
[2023-12-18] MEDS: Lactated Ringers 1,000 ML 50 ML IVCONT (07:00)
--- NOTE | 2023-12-18 07:09 | MHC.SHP ---
Pre-Procedural Eval Section A - 24 Hr Update-Section A only Date of Service: 12/18/23 The patient is an INPATIENT: Yes Changes since office visit: No Cold of Flu in the past 2 weeks, No New Medical Problems, No Changes in Medication and No Patient answered all questions The patient has been examined within 24 hours of the surgical procedure. The History & Physical has been completed within 30 days and I have reviewed it.: Yes Section B - Complete if H&P > 30 days Chief Complaint: Psychosis Allergies: Allergies Allergy/AdvReac Type Severity Reaction Status Date / Time haloperidol AdvReac EPS Verified 12/15/23 19:33 metoprolol AdvReac Diarrhea Verified 12/15/23 19:33 Plan I have reviewed the history and physical and performed a pertinent physical examination on my patient. No changes have occurred unless specified. Time Spent With Patient Time: Total time managing care of this patient today ____ minutes.
--- NOTE | 2023-12-18 07:29 | HO.ECTPROC ---
ECT Procedure Note Diagnosis/Treatment Date of Service: 12/18/23 Diagnosis: Catatonia Previous ECT Date: 12/09/23 Current Treatment Number: 8 Treatment: Series Interval Clinical Notes: The patient relapsed on psychotic symptoms and she was readmitted. She is grossly psychotic, initially,, she was uncooperative and we tried to medicate her since she was not allowing IV. Eventually, she agreed on the IV, she spitted Zydis and Ativan PO. She is unable to provide details due to disorganization. We decided to do bitemporal with the same parameters, no Flumazenil even though that she had benzodiazepines last night. The seizure was too long and we needed to break it up with Midazolam. Woke up with no problems, no complications. Time: Total time managing care of this patient today ____ minutes. ECT Settings Device: THYMATRON DGx Electrode Placement: Bitemporal Program/Pulse Width: 0.25 Energy Percent: 60 Seizure Duration By EEG (in seconds): 182 By Motor Observation (in seconds): 0 Medications Administration General Anesthetic: Etomidate (14) Muscle Relaxant: Succinylcholine (80) Ancillary Medications Analgesics: Torodol - Pre ECT Anti-emetics: Zofran - Pre ECT Cardiovascular Medications: Esmolol (x 3 pre ECT, her pulse was over 120) Miscillaneous Medications: Midazolam (post stimuli to break up seizure) Airway Management Airway Management: Bag Mask Ventilation Treatment Recommendations Electrode Placement: Right Unilateral Program/Pulse Width: 0.25 Energy Percent: 60 Notes: We did bitemporal due to recent relapse on catatonia and psychosis but unfortunately, she got a very long seizure that was not breaking up by itself so we decided to stop it with Midazolam. Next ECT, keep on right unilateral. Pt Tolerated Procedure w/o Issue: Yes
--- NOTE | 2023-12-18 11:25 | P.PNPSI_ITS ---
Subjective Subjective Date of Service: 12/18/23 Reason For Visit: Psychosis Subjective Notes: Conditional Voluntary Interim History: Reviewed with Dr. Méndez. Pt on 1:1 safety checks d/t disorganization. Pt had ECT this morning. pt presents disorganized with thought blocking. T/W attempted to meet with pt. Pt continues with poor eye contact, looking around the room. Unable to have logical conversation; observed mumbling to self, T/W unable to make out anything pt was saying d/t low volume. Unable to follow directions at times. Medication Compliance: Yes Side effects from medications: No Attending Groups: No Review of Systems Review of Systems Yes Unobtainable due to mental status Mental Status Exam Mental Status Exam Patient Appearance: Disheveled Patient Orientation: Person, Place, Time and Situation Level of Consciousness: Awake Patient Behavior: Guarded, Suspicious, Restless, Wandering, Anxious and Poor Eye Contact Mood Description: Suspicious, Anxious and Apprehensive Affect Description: Flat Ability to Follow Directions: Poor Speech Pattern: Soft-Spoken and Mumbled Diagnostics Vital Signs (24Hr): Vital Signs - 24 hr 12/17/23 16:04 12/17/23 20:00 12/18/23 06:00 Temperature 98.5 F 97.6 F Pulse Rate 135 H 123 H Respiratory Rate 18 Blood Pressure 139/79 138/91 H 117/72 Pulse Oximetry 97 96 Oxygen Delivery Method Room Air Room Air Oxygen Flow Rate 12/18/23 06:03 12/18/23 06:31 12/18/23 07:37 Temperature 97.6 F 97.6 F 97.4 F Pulse Rate 123 H 120 H 123 H Respiratory Rate 18 16 17 Blood Pressure 117/72 115/71 128/78 Pulse Oximetry 96 100 95 Oxygen Delivery Method Room Air Nasal Cannula with ETCO2 Oxygen Flow Rate 2 12/18/23 07:42 12/18/23 07:47 12/18/23 07:52 Temperature Pulse Rate 121 H 99 128 H Respiratory Rate 16 14 16 Blood Pressure 129/68 116/61 96/47 L Pulse Oximetry 96 96 94 Oxygen Delivery Method Nasal Cannula with ETCO2 Nasal Cannula with ETCO2 Room Air Oxygen Flow Rate 2 2 12/18/23 08:10 12/18/23 08:25 12/18/23 08:40 Temperature Pulse Rate 95 86 90 Respiratory Rate 19 16 16 Blood Pressure 97/44 L 123/65 122/66 Pulse Oximetry 96 99 99 Oxygen Delivery Method Room Air Room Air Room Air Oxygen Flow Rate 12/18/23 08:55 12/18/23 09:08 12/18/23 09:10 Temperature 97.8 F 97.6 F Pulse Rate 94 114 H 100 Respiratory Rate 16 20 16 Blood Pressure 110/64 135/76 117/65 Pulse Oximetry 99 98 100 Oxygen Delivery Method Room Air Room Air Oxygen Flow Rate BMI result Body Mass Index 28.3 Labs Labs: Laboratory Results - last 48 hr 12/16/23 11:42 Urine Color Yellow Urine Appearance Cloudy Urine pH 7.0 Ur Specific [place] 1.010 Urine Protein Negative Urine Glucose (UA) Negative Urine Ketones Negative Urine Blood Negative Urine Nitrite Positive H Ur Leukocyte Esterase Trace H Urine RBC 0-2 Urine WBC 0-5 Ur Squamous Epith Cells 6-10 Urine Bacteria 4+ Hyaline Casts 0-2 Urine Test NEGATIVE Urine Opiates Screen Not Detected Ur Buprenorphine Scrn Not Detected Ur Oxycodone Screen Not Detected Urine Methadone Screen Not Detected Urine Fentanyl Screen Not Detected Ur Barbiturates Screen Not Detected Ur Phencyclidine Scrn Not Detected Ur Amphetamines Screen Not Detected U Benzodiazepines Scrn Not Detected Urine Cocaine Screen Not Detected U Marijuana (THC) Screen Not Detected Medications Medications Current Medications Acetaminophen (Acetaminophen 325 Mg Tablet) 650 mg PO Q6H PRN PRN Reason: Headache/Pain Mild Scale (1-3) Al Hydroxide/Mg Hydroxide (Magnesium Hydrox/Alum Hydrox 30 Ml Oral.Susp) 30 ml PO Q6H PRN PRN Reason: Heartburn/Nausea Aripiprazole (Aripiprazole 15 Mg Tablet) 15 mg PO BEDTIME KRISTI Last Admin: 12/17/23 21:10 Dose: 15 mg Clonidine HCl (Clonidine Hcl 0.1 Mg Tablet) 0.1 mg PO Q4H PRN; Protocol PRN Reason: mild anxiety (try 1st) Last Admin: 12/17/23 16:04 Dose: 0.1 mg Hydroxyzine HCl (Hydroxyzine Hcl 25 Mg Tablet) 25 mg PO Q6H PRN PRN Reason: Anxiety Last Admin: 12/17/23 16:04 Dose: 25 mg Hydroxyzine HCl (Hydroxyzine Hcl 25 Mg Tablet) 25 mg PO Q6H PRN PRN Reason: Anxiety Magnesium Hydroxide (Milk Of Magnesia 30 Ml Oral.Susp) 30 ml PO DAILY PRN PRN Reason: Constipation Ondansetron HCl (Ondansetron Odt 4 Mg Tab.Rapdis) 4 mg TRANSLINGU Q6H PRN PRN Reason: Nausea And Vomiting Last Admin: 12/16/23 01:05 Dose: 4 mg Trazodone HCl (Trazodone Hcl 50 Mg Tablet) 50 mg PO BEDTIME PRN PRN Reason: Insomnia Last Admin: 12/16/23 23:54 Dose: 50 mg Trazodone HCl (Trazodone Hcl 50 Mg Tablet) 50 mg PO BEDTIME MRX1 PRN PRN Reason: Insomnia Last Admin: 12/18/23 00:14 Dose: 50 mg Allergies Allergies Allergy/AdvReac Type Severity Reaction Status Date / Time haloperidol AdvReac EPS Verified 12/15/23 19:33 metoprolol AdvReac Diarrhea Verified 12/15/23 19:33 Assessment & Plan Assessment & Plan (1) Schizoaffective disorder: Status: Acute Code(s): F25.9 - Schizoaffective disorder, unspecified (2) Catatonia: Status: Acute Code(s): F06.1 - Catatonic disorder due to known physiological condition Plan Patient is a 23 year old female with hx of schizoaffective d/o who was recently discharged from on 12/04/23 who presented to ER d/t suicidal ideation secondary to worsening depression and auditory hallucinations instructing her to harm herself. Plan: Continue home medications obtain collateral The patient has recurrent catatonia preoccupation responded well previously to ECT Patient having difficulty integrating information at this time healthcare proxy was invoked and informed consent for ECT was obtained from the patient's mother who is healthcare proxy anesthesia also obtained informed consent patient is scheduled for ECT tomorrow responded well to right temporal left frontal ECT. The patient was agreeable to admission and is agreeing to ECT Dr. Smith felt that the time of admission she was able to sign CV 12/17: pt had ECT this morning. Continue current tx plan. Patient educated on: other (unable to educate d/t mental status.) Reason for continued inpatient stay Substantial Risk for: med/psych decompensation Time Spent With Patient Time: Total time managing care of this patient today _20___ minutes.
[2023-12-18] MEDS: hydrOXYzine HCL 25 MG TABLET PO (16:48)
[2023-12-18] MEDS: ARIPiprazole 15 MG TABLET PO (20:48)
[2023-12-19 07:00] VITALS: BMI 28.4
--- NOTE | 2023-12-19 08:02 | HO.POSTANES ---
Post Anesthesia Evaluation Post Anesthesia Evaluation Date of Service: 12/19/23 Anesthesia: General Mental Status: Awake Pain Control: Satisfactory Nausea/Vomiting: None Hydration: Adequate Anesthesia-Related Issues: No Anes. Related Issues
[2023-12-19 08:07] VITALS: BP 124/86; PULSE 125; RESP 16; TEMP 36.6; O2SAT 97
[2023-12-19 20:00] VITALS: BP 156/76; PULSE 122; RESP 18; TEMP 36; O2SAT 100
[2023-12-19] MEDS: cloNIDine HCL 0.1 MG TABLET PO (20:17)
[2023-12-19] MEDS: ARIPiprazole 15 MG TABLET PO (20:18)
[2023-12-19] MEDS: LORazepam 1 MG TABLET PO (20:18)
[2023-12-19] MEDS: hydrOXYzine HCL 25 MG TABLET PO (20:18)
--- NOTE | 2023-12-19 21:29 | PC.NURSE ---
Patient had episode of incontinence while standing in bathroom. Pt had not made it to toilet yet. Per previous report pt has had multiple similar episodes. Pt placed in brief, provider also notified
--- NOTE | 2023-12-19 22:06 | HO.PSYCHPN ---
Subjective Subjective Date of Service: 12/19/23 Reason For Visit: Psychosis Subjective Notes: Conditional Voluntary Healthcare Proxy: Yes Interim History: HCP invoked cv signed pt paranoid agitated fearful limited food and drink Mental Status Exam Mental Status Exam Narrative: thought blocking intermittant stare periods of agaitation Patient Appearance: Disheveled Patient Orientation: Person, Place and Situation Level of Consciousness: Awake Patient Behavior: Suspicious, Restless, Wandering, Anxious, Distractible, Impulsive and Poor Eye Contact Mood Description: Suspicious, Anxious and Apprehensive Affect Description: Flat Ability to Follow Directions: Poor Speech Pattern: Soft-Spoken and Mumbled Hallucinations: Auditory Delusions: Paranoid Ideation Depressive Symptoms: Difficulty Concentrating Abnormal Motor Activity Signs and Symptoms: Restlessness Judgement and Insight: periods of agitation alt with periods of passivity intermittant non verbal Diagnostics Vital Signs (24Hr): Vital Signs - 24 hr 12/19/23 08:07 12/19/23 20:00 Temperature 97.8 F 96.8 F Pulse Rate 125 H 122 H Respiratory Rate 16 18 Blood Pressure 124/86 156/76 H Pulse Oximetry 97 100 Oxygen Delivery Method Room Air BMI result Body Mass Index 28.4 Medications Medications Current Medications Acetaminophen (Acetaminophen 325 Mg Tablet) 650 mg PO Q6H PRN PRN Reason: Headache/Pain Mild Scale (1-3) Al Hydroxide/Mg Hydroxide (Magnesium Hydrox/Alum Hydrox 30 Ml Oral.Susp) 30 ml PO Q6H PRN PRN Reason: Heartburn/Nausea Aripiprazole (Aripiprazole 15 Mg Tablet) 15 mg PO BEDTIME KRISTI Last Admin: 12/19/23 20:18 Dose: 15 mg Clonidine HCl (Clonidine Hcl 0.1 Mg Tablet) 0.1 mg PO Q4H PRN; Protocol PRN Reason: mild anxiety (try 1st) Last Admin: 12/19/23 20:17 Dose: 0.1 mg Hydroxyzine HCl (Hydroxyzine Hcl 25 Mg Tablet) 25 mg PO Q6H PRN PRN Reason: Anxiety Last Admin: 12/19/23 20:18 Dose: 25 mg Hydroxyzine HCl (Hydroxyzine Hcl 25 Mg Tablet) 25 mg PO Q6H PRN PRN Reason: Anxiety Lorazepam (Lorazepam 1 Mg Tablet) 1 mg PO BEDTIME KRISTI Last Admin: 12/19/23 20:18 Dose: 1 mg Magnesium Hydroxide (Milk Of Magnesia 30 Ml Oral.Susp) 30 ml PO DAILY PRN PRN Reason: Constipation Ondansetron HCl (Ondansetron Odt 4 Mg Tab.Rapdis) 4 mg TRANSLINGU Q6H PRN PRN Reason: Nausea And Vomiting Last Admin: 12/16/23 01:05 Dose: 4 mg Trazodone HCl (Trazodone Hcl 50 Mg Tablet) 50 mg PO BEDTIME PRN PRN Reason: Insomnia Last Admin: 12/16/23 23:54 Dose: 50 mg Trazodone HCl (Trazodone Hcl 50 Mg Tablet) 50 mg PO BEDTIME MRX1 PRN PRN Reason: Insomnia Last Admin: 12/18/23 00:14 Dose: 50 mg Allergies Allergies Allergy/AdvReac Type Severity Reaction Status Date / Time haloperidol AdvReac EPS Verified 12/15/23 19:33 metoprolol AdvReac Diarrhea Verified 12/15/23 19:33 Assessment & Plan Assessment & Plan (1) Schizoaffective disorder: Status: Acute Code(s): F25.9 - Schizoaffective disorder, unspecified (2) Catatonia: Status: Acute Code(s): F06.1 - Catatonic disorder due to known physiological condition Plan Patient is a 23 year old female with hx of schizoaffective d/o who was recently discharged from on 12/04/23 who presented to ER d/t suicidal ideation secondary to worsening depression and auditory hallucinations instructing her to harm herself. Plan: Continue home medications obtain collateral The patient has recurrent catatonia preoccupation responded well previously to ECT Patient having difficulty integrating information at this time healthcare proxy was invoked and informed consent for ECT was obtained from the patient's mother who is healthcare proxy anesthesia also obtained informed consent patient is scheduled for ECT tomorrow responded well to right temporal left frontal ECT. The patient was agreeable to admission and is agreeing to ECT Dr. Smith felt that the time of admission she was able to sign CV 12/17: pt had ECT this morning. Continue current tx plan. 12/19/23 restart lorazepam for catatonic like sx periods agitation more active today ect in am decrease stim ? change technique Reason for continued inpatient stay Substantial Risk for: inability to function, rapid decompensation and med/psych decompensation Time Spent With Patient Time: Total time managing care of this patient today ____ minutes.
[2023-12-20 06:00] VITALS: BP 133/91; PULSE 109; RESP 18; TEMP 36.9; O2SAT 99
--- NOTE | 2023-12-20 06:52 | PC.NURSE ---
patient with sitter from the floor. patient not answering questions only mumbling. answers in computer are based on previous answers and h&p. patient denies pain.
--- NOTE | 2023-12-20 06:55 | P.CONAN_ITS ---
[facility] Active Problems Active Problems: All Active Problems Catatonia (Acute) Auditory hallucination (Acute) Bipolar disorder in remission (Acute) Pre-op evaluation (Acute) Supraventricular tachycardia (Acute) Schizoaffective disorder (Acute) Intellectual disability (Acute) Major depressive disorder, recurrent episode, severe, with psychosis (Chronic) Contraception management (Acute) Vitamin D deficiency (Acute) Vitamin B12 deficiency (Acute) Uses control (Acute) Supraventricular tachycardia by ECG (Acute) Migraine (Acute) Past Medical History Medical History Bipolar disorder in remission Supraventricular tachycardia Schizoaffective disorder Intellectual disability Contraception management Vitamin D deficiency Vitamin B12 deficiency Uses control Hx of ovarian cyst Epigastric abdominal pain Orthostatic hypotension Supraventricular tachycardia by ECG Left ovarian cyst Migraine Family History Family History Mother Bipolar disorder Mental health disorder Family history of problems with anesthesia: No Surgical History Surgical History H/O removal of cyst History of Problems with Anesthesia: No Social History Social History Household Members: Family Household Members Other:: Pt unable to answer questions d/t mental status. Housing: House Housing Other:: at home with mother Are you a primary out of school hours care worker to a significant other at home: No Alcohol intake: never Comment: pt on 1:1 obs Patient Tobacco Use Status: Never used Tobacco e-Cigarette/Vaping Use: Never Used Second Hand Smoke Exposure: No Substance Use Type: Unknown Advance Directives Date on File: 12/10/23 service: No Current occupational status: unemployed Sexual orientation: Straight/Heterosexual Gender identity: Female Cognitive needs: No Hearing needs: No Vision needs: No Meds Allergies Allergy/AdvReac Type Severity Reaction Status Date / Time haloperidol AdvReac EPS Verified 12/15/23 19:33 metoprolol AdvReac Diarrhea Verified 12/15/23 19:33 Active Medications: Current Medications Acetaminophen (Acetaminophen 325 Mg Tablet) 650 mg PO Q6H PRN PRN Reason: Headache/Pain Mild Scale (1-3) Al Hydroxide/Mg Hydroxide (Magnesium Hydrox/Alum Hydrox 30 Ml Oral.Susp) 30 ml PO Q6H PRN PRN Reason: Heartburn/Nausea Aripiprazole (Aripiprazole 15 Mg Tablet) 15 mg PO BEDTIME KRISTI Last Admin: 12/19/23 20:18 Dose: 15 mg Clonidine HCl (Clonidine Hcl 0.1 Mg Tablet) 0.1 mg PO Q4H PRN; Protocol PRN Reason: mild anxiety (try 1st) Last Admin: 12/19/23 20:17 Dose: 0.1 mg Hydroxyzine HCl (Hydroxyzine Hcl 25 Mg Tablet) 25 mg PO Q6H PRN PRN Reason: Anxiety Last Admin: 12/19/23 20:18 Dose: 25 mg Hydroxyzine HCl (Hydroxyzine Hcl 25 Mg Tablet) 25 mg PO Q6H PRN PRN Reason: Anxiety Lactated Ringer's (Lr) 1,000 mls @ 50 mls/hr IVCONT .Q20H KRISTI Lorazepam (Lorazepam 1 Mg Tablet) 1 mg PO BEDTIME KRISTI Last Admin: 12/19/23 20:18 Dose: 1 mg Magnesium Hydroxide (Milk Of Magnesia 30 Ml Oral.Susp) 30 ml PO DAILY PRN PRN Reason: Constipation Ondansetron HCl (Ondansetron Odt 4 Mg Tab.Rapdis) 4 mg TRANSLINGU Q6H PRN PRN Reason: Nausea And Vomiting Last Admin: 12/16/23 01:05 Dose: 4 mg Trazodone HCl (Trazodone Hcl 50 Mg Tablet) 50 mg PO BEDTIME PRN PRN Reason: Insomnia Last Admin: 12/16/23 23:54 Dose: 50 mg Trazodone HCl (Trazodone Hcl 50 Mg Tablet) 50 mg PO BEDTIME MRX1 PRN PRN Reason: Insomnia Last Admin: 12/18/23 00:14 Dose: 50 mg Exam Height,Weight and Vital Signs: Height 5 ft Weight 66 kg Last Vital Signs Temp 98.5 F 12/20/23 06:00 Pulse 109 H 12/20/23 06:00 Resp 18 12/20/23 06:00 BP 133/91 H 12/20/23 06:00 Pulse Ox 99 12/20/23 06:00 O2 Del Method Room Air 12/20/23 06:00 O2 Flow Rate 2 12/18/23 07:47 Pertinent Lab Results Pertinent Lab Results: Laboratory Tests 12/16/23 11:42 Urine Color Yellow Urine Appearance Cloudy Urine pH 7.0 Ur Specific [place] 1.010 Urine Protein Negative Urine Glucose (UA) Negative Urine Ketones Negative Urine Blood Negative Urine Nitrite Positive H Ur Leukocyte Esterase Trace H Urine RBC 0-2 Urine WBC 0-5 Ur Squamous Epith Cells 6-10 Urine Bacteria 4+ Hyaline Casts 0-2 Urine Test NEGATIVE Urine Opiates Screen Not Detected Ur Buprenorphine Scrn Not Detected Ur Oxycodone Screen Not Detected Urine Methadone Screen Not Detected Urine Fentanyl Screen Not Detected Ur Barbiturates Screen Not Detected Ur Phencyclidine Scrn Not Detected Ur Amphetamines Screen Not Detected U Benzodiazepines Scrn Not Detected Urine Cocaine Screen Not Detected U Marijuana (THC) Screen Not Detected Airway Mallampati Class: II TM Dist: >3cm Neck ROM: Full Heart: rrr Lungs: cta Assessment and Plan Assessment Anesthesia Assessment: Anesthesia Plan Discussed and Chart Reviewed Final Anesthetic Review Family History of Problems with Anesthesia: No History of Problems with Anesthesia: No NPO: Yes ASA Class: III Final Preanesthetic Review: No Changes in Pt Med Stat, Meds/Allgs Chart Reviewed and Consent Obtained/Reviewed Patient Risk: Intermediate Procedure Risk: Intermediate Anesthetic Plan Anesthetic Plan: GA Disposition: Standard PACU
--- NOTE | 2023-12-20 07:18 | PC.NURSE ---
Pt refusing IV, pre medication and to keep monitor on, sent back to floor
[2023-12-20 08:00] VITALS: BP 143/87; PULSE 133; RESP 16; TEMP 36.6; O2SAT 99
--- NOTE | 2023-12-20 09:55 | HO.PSYCHPN ---
Subjective Subjective Date of Service: 12/20/23 Reason For Visit: Psychosis Interim History: Met with patient; discussed with team Yesterday patient disorganized and aggressively trying to elope, absconded with cellphone from visitor, trying to grab a staff person's keys, banging on the door to get out...yelling Today patient more calm but remains completely disorganized speech and behavior and unable to engage in discussion about treatment; refused ECT this morning and refused Abilify. Patient a mostly wandering milieu, nonverbal... Mushroom Spawn Maker discussed ECT and how she found it helpful in the past and it got rid of voices for her to which she nodded. Mental Status Exam Mental Status Exam Narrative: Pt is alert and oriented; behavior is disorganized in speech and behavior, either mumbling inaudibly or nonverbal...patient is not in distress; dressed in hospital attire, disheveled; mood and affect blunted; eye contact limited; Speech is mostly nonverbal or mumbling; intermittent psychomotor agitation/retardation present; thought process disorganized; Thought content is on paranoid ideations given behaviors; no expressions of SI/HI. Internally preoccupied, AH Patients insight and judgment impaired Diagnostics Vital Signs (24Hr): Vital Signs - 24 hr 12/19/23 20:00 12/20/23 06:00 Temperature 96.8 F 98.5 F Pulse Rate 122 H 109 H Respiratory Rate 18 18 Blood Pressure 156/76 H 133/91 H Pulse Oximetry 100 99 Oxygen Delivery Method Room Air BMI result Body Mass Index 28.4 Medications Medications Current Medications Acetaminophen (Acetaminophen 325 Mg Tablet) 650 mg PO Q6H PRN PRN Reason: Headache/Pain Mild Scale (1-3) Al Hydroxide/Mg Hydroxide (Magnesium Hydrox/Alum Hydrox 30 Ml Oral.Susp) 30 ml PO Q6H PRN PRN Reason: Heartburn/Nausea Aripiprazole (Aripiprazole 15 Mg Tablet) 15 mg PO BEDTIME KRISTI Last Admin: 12/19/23 20:18 Dose: 15 mg Clonidine HCl (Clonidine Hcl 0.1 Mg Tablet) 0.1 mg PO Q4H PRN; Protocol PRN Reason: mild anxiety (try 1st) Last Admin: 12/19/23 20:17 Dose: 0.1 mg Hydroxyzine HCl (Hydroxyzine Hcl 25 Mg Tablet) 25 mg PO Q6H PRN PRN Reason: Anxiety Last Admin: 12/19/23 20:18 Dose: 25 mg Hydroxyzine HCl (Hydroxyzine Hcl 25 Mg Tablet) 25 mg PO Q6H PRN PRN Reason: Anxiety Lactated Ringer's (Lr) 1,000 mls @ 50 mls/hr IVCONT .Q20H KRISTI Lorazepam (Lorazepam 1 Mg Tablet) 1 mg PO BEDTIME KRISTI Last Admin: 12/19/23 20:18 Dose: 1 mg Magnesium Hydroxide (Milk Of Magnesia 30 Ml Oral.Susp) 30 ml PO DAILY PRN PRN Reason: Constipation Ondansetron HCl (Ondansetron Odt 4 Mg Tab.Rapdis) 4 mg TRANSLINGU Q6H PRN PRN Reason: Nausea And Vomiting Last Admin: 12/16/23 01:05 Dose: 4 mg Trazodone HCl (Trazodone Hcl 50 Mg Tablet) 50 mg PO BEDTIME MRX1 PRN PRN Reason: Insomnia Last Admin: 12/18/23 00:14 Dose: 50 mg Allergies Allergies Allergy/AdvReac Type Severity Reaction Status Date / Time haloperidol AdvReac EPS Verified 12/15/23 19:33 metoprolol AdvReac Diarrhea Verified 12/15/23 19:33 Assessment & Plan Assessment & Plan (1) Schizoaffective disorder: Status: Acute Code(s): F25.9 - Schizoaffective disorder, unspecified (2) Catatonia: Status: Acute Code(s): F06.1 - Catatonic disorder due to known physiological condition Plan Patient is a 23 year old female with hx of schizoaffective d/o who was recently discharged from on 12/04/23 who presented to ER d/t suicidal ideation secondary to worsening depression and auditory hallucinations instructing her to harm herself. Hospital course: 12/17: pt had ECT this morning. Continue current tx plan. 12/18 restarted lorazepam for catatonic like sx periods agitation more active today pt very disorganized 12/19 completely disorganized; refused ECT today; refusing meds Formulation/clinical reasoning: Patient soon returns to the unit, with return of psychotic delirium and catatonic symptoms which fully resolved during last admission a few weeks ago once she got ECT. Accepted ECT on 12/17 however refused it on 12/19. Will continue to schedule ECT MWF as patient does continue to have moments where she is intermittently lucid enough and wants ECT to make auditory hallucinations to go away. Patient was also getting ECT as an outpatient until very recently. Healthcare proxy invoked; pending affirmation Plan: HCP invoked CV Continue ECT MWF: Patient benefited from ECT in the past and would ask for it since it would help decrease and then eliminate auditory hallucinations; patient may very well again consent Continue Abilify though patient refuses Increase Ativan to 1 mg t.i.d. given catatonic symptoms Ativan 2 mg prior to ECT; Patient having difficulty integrating information at this time healthcare proxy was invoked and informed consent for ECT was obtained from the patient's mother who is healthcare proxy; anesthesia also obtained informed consent the patient was agreeable to admission and is agreeing to ECT Patient educated on: diagnosis, medication risk/benefits and ECT Informed Consent: does not understand Reason for continued inpatient stay Substantial Risk for: inability to function Time Spent With Patient Time: Total time managing care of this patient today ____ minutes.
[2023-12-20] MEDS: LORazepam 1 MG TABLET PO ×3 (14:23→21:11)
[2023-12-20] MEDS: ARIPiprazole 15 MG TABLET PO (21:10)
[2023-12-21] MEDS: LORazepam 1 MG TABLET PO ×3 (09:19→20:06)
[2023-12-21 10:30] VITALS: BP 124/92; PULSE 123; RESP 16; O2SAT 98
--- NOTE | 2023-12-21 15:29 | HO.PSYCHPN ---
Subjective Subjective Date of Service: 12/21/23 Reason For Visit: Psychosis Interim History: met with patient. Discussed with Nursing. Noted patient declined ECT yesterday. One-to-one observation in place given level of disorganization. Has been declining food. With automatic typewriter inspector was very paranoid and guarded. Clearly felt unsafe. Reports hearing voices all the time. Stating she is not a good person. Is oriented to where she is. Reports not remembering why she did not want ECT yesterday. Psychomotor retardation is evident. Does follow direction of one-to-one observer. Medication Compliance: Intermittent Side effects from medications: No Attending Groups: No Review of Systems Acute medical concerns: No Review of Systems Review of Systems Yes Unobtainable due to mental status Mental Status Exam Mental Status Exam Narrative: Casually dressed. Self-care is limited. One-to-one observer in place. Internally preoccupied. Psychomotor retardation evident. Does look depressed. Was tearful and fearful. Unable to clearly evaluate SI. Is paranoid. Endorses hallucinations telling her she is not a good person. Insight and judgment is limited Diagnostics Vital Signs (24Hr): Vital Signs - 24 hr 12/21/23 10:30 Pulse Rate 123 H Respiratory Rate 16 Blood Pressure 124/92 H Pulse Oximetry 98 Oxygen Delivery Method Room Air BMI result Body Mass Index 28.4 Medications Medications Current Medications Acetaminophen (Acetaminophen 325 Mg Tablet) 650 mg PO Q6H PRN PRN Reason: Headache/Pain Mild Scale (1-3) Al Hydroxide/Mg Hydroxide (Magnesium Hydrox/Alum Hydrox 30 Ml Oral.Susp) 30 ml PO Q6H PRN PRN Reason: Heartburn/Nausea Aripiprazole (Aripiprazole 15 Mg Tablet) 15 mg PO BEDTIME KRISTI Last Admin: 12/20/23 21:10 Dose: 15 mg Clonidine HCl (Clonidine Hcl 0.1 Mg Tablet) 0.1 mg PO Q4H PRN; Protocol PRN Reason: mild anxiety (try 1st) Last Admin: 12/19/23 20:17 Dose: 0.1 mg Hydroxyzine HCl (Hydroxyzine Hcl 25 Mg Tablet) 25 mg PO Q6H PRN PRN Reason: Anxiety Last Admin: 12/19/23 20:18 Dose: 25 mg Hydroxyzine HCl (Hydroxyzine Hcl 25 Mg Tablet) 25 mg PO Q6H PRN PRN Reason: Anxiety Lactated Ringer's (Lr) 1,000 mls @ 50 mls/hr IVCONT .Q20H KRISTI Last Admin: 12/21/23 05:52 Dose: Not Given Lorazepam (Lorazepam 1 Mg Tablet) 1 mg PO BEDTIME KRISTI Last Admin: 12/20/23 21:10 Dose: 1 mg Lorazepam (Lorazepam 1 Mg Tablet) 1 mg PO TID KRISTI Last Admin: 12/21/23 09:19 Dose: 1 mg Lorazepam (Lorazepam 1 Mg Tablet) 2 mg PO DAILY KRISTI Magnesium Hydroxide (Milk Of Magnesia 30 Ml Oral.Susp) 30 ml PO DAILY PRN PRN Reason: Constipation Ondansetron HCl (Ondansetron Odt 4 Mg Tab.Rapdis) 4 mg TRANSLINGU Q6H PRN PRN Reason: Nausea And Vomiting Last Admin: 12/16/23 01:05 Dose: 4 mg Trazodone HCl (Trazodone Hcl 50 Mg Tablet) 50 mg PO BEDTIME MRX1 PRN PRN Reason: Insomnia Last Admin: 12/18/23 00:14 Dose: 50 mg Allergies Allergies Allergy/AdvReac Type Severity Reaction Status Date / Time haloperidol AdvReac EPS Verified 12/15/23 19:33 metoprolol AdvReac Diarrhea Verified 12/15/23 19:33 Assessment & Plan Assessment & Plan (1) Schizoaffective disorder: Status: Acute Code(s): F25.9 - Schizoaffective disorder, unspecified (2) Catatonia: Status: Acute Code(s): F06.1 - Catatonic disorder due to known physiological condition Plan Patient is a 23 year old female with hx of schizoaffective d/o who was recently discharged from on 12/04/23 who presented to ER d/t suicidal ideation secondary to worsening depression and auditory hallucinations instructing her to harm herself. Hospital course: 12/17: pt had ECT this morning. Continue current tx plan. 12/18 restarted lorazepam for catatonic like sx periods agitation more active today pt very disorganized 12/19 completely disorganized; refused ECT today; refusing meds Formulation/clinical reasoning: Patient soon returns to the unit, with return of psychotic delirium and catatonic symptoms which fully resolved during last admission a few weeks ago once she got ECT. Accepted ECT on 12/17 however refused it on 12/19. Will continue to schedule ECT MWF as patient does continue to have moments where she is intermittently lucid enough and wants ECT to make auditory hallucinations to go away. Patient was also getting ECT as an outpatient until very recently. Healthcare proxy invoked; pending affirmation Plan: HCP invoked CV Continue ECT MWF: Patient benefited from ECT in the past and would ask for it since it would help decrease and then eliminate auditory hallucinations; patient may very well again consent Continue Abilify though patient refuses Increase Ativan to 1 mg t.i.d. given catatonic symptoms Ativan 2 mg prior to ECT; Patient having difficulty integrating information at this time healthcare proxy was invoked and informed consent for ECT was obtained from the patient's mother who is healthcare proxy; anesthesia also obtained informed consent the patient was agreeable to admission and is agreeing to ECT 12/21/2023: No changes. Continue to encourage ECT, next scheduled on Saturday12/23/2023 Reason for continued inpatient stay Substantial Risk for: inability to function Time Spent With Patient Time: Total time managing care of this patient today ____ minutes.
[2023-12-21 20:00] VITALS: BP 162/98; PULSE 140; RESP 17; TEMP 36.3; O2SAT 100
[2023-12-21] MEDS: ARIPiprazole 15 MG TABLET PO (20:05)
[2023-12-22 08:00] VITALS: BP 141/92; PULSE 122; RESP 18; TEMP 36.6; O2SAT 100
--- NOTE | 2023-12-22 10:38 | HO.PSYCHPN ---
Subjective Subjective Date of Service: 12/22/23 Reason For Visit: Psychosis Interim History: One-to-one observation in place given level of disorganization. Still declining food. Remains very paranoid and guarded. Clearly felt unsafe. AH ongoing- negative content. . Psychomotor retardation is evident. Does follow direction of one-to-one observer. Medication Compliance: Yes Side effects from medications: No Review of Systems Acute medical concerns: No Review of Systems Review of Systems Yes Unobtainable due to mental status Mental Status Exam Mental Status Exam Narrative: Casually dressed. Self-care is limited. One-to-one observer in place. Internally preoccupied. Psychomotor retardation evident. Does look depressed. Scared. Unable to clearly evaluate SI. Is paranoid. Auditory hallucinations - negative content. Insight and judgment is limited Diagnostics Vital Signs (24Hr): Vital Signs - 24 hr 12/21/23 20:00 12/22/23 08:00 Temperature 97.4 F 97.8 F Pulse Rate 140 H 122 H Respiratory Rate 17 18 Blood Pressure 162/98 H 141/92 H Pulse Oximetry 100 100 Oxygen Delivery Method Room Air Room Air BMI result Body Mass Index 28.4 Medications Medications Current Medications Acetaminophen (Acetaminophen 325 Mg Tablet) 650 mg PO Q6H PRN PRN Reason: Headache/Pain Mild Scale (1-3) Al Hydroxide/Mg Hydroxide (Magnesium Hydrox/Alum Hydrox 30 Ml Oral.Susp) 30 ml PO Q6H PRN PRN Reason: Heartburn/Nausea Aripiprazole (Aripiprazole 15 Mg Tablet) 15 mg PO BEDTIME [facility] Last Admin: 12/21/23 20:05 Dose: 15 mg Clonidine HCl (Clonidine Hcl 0.1 Mg Tablet) 0.1 mg PO Q4H PRN; Protocol PRN Reason: mild anxiety (try 1st) Last Admin: 12/19/23 20:17 Dose: 0.1 mg Hydroxyzine HCl (Hydroxyzine Hcl 25 Mg Tablet) 25 mg PO Q6H PRN PRN Reason: Anxiety Last Admin: 12/19/23 20:18 Dose: 25 mg Hydroxyzine HCl (Hydroxyzine Hcl 25 Mg Tablet) 25 mg PO Q6H PRN PRN Reason: Anxiety Lorazepam (Lorazepam 1 Mg Tablet) 1 mg PO BEDTIME [facility] Last Admin: 12/21/23 20:06 Dose: 1 mg Lorazepam (Lorazepam 1 Mg Tablet) 1 mg PO TID [facility] Last Admin: 12/22/23 10:28 Dose: Not Given Lorazepam (Lorazepam 1 Mg Tablet) 2 mg PO DAILY KRISTI Magnesium Hydroxide (Milk Of Magnesia 30 Ml Oral.Susp) 30 ml PO DAILY PRN PRN Reason: Constipation Ondansetron HCl (Ondansetron Odt 4 Mg Tab.Rapdis) 4 mg TRANSLINGU Q6H PRN PRN Reason: Nausea And Vomiting Last Admin: 12/16/23 01:05 Dose: 4 mg Trazodone HCl (Trazodone Hcl 50 Mg Tablet) 50 mg PO BEDTIME MRX1 PRN PRN Reason: Insomnia Last Admin: 12/18/23 00:14 Dose: 50 mg Allergies Allergies Allergy/AdvReac Type Severity Reaction Status Date / Time haloperidol AdvReac EPS Verified 12/15/23 19:33 metoprolol AdvReac Diarrhea Verified 12/15/23 19:33 Assessment & Plan Assessment & Plan (1) Schizoaffective disorder: Status: Acute Code(s): F25.9 - Schizoaffective disorder, unspecified (2) Catatonia: Status: Acute Code(s): F06.1 - Catatonic disorder due to known physiological condition Plan Patient is a 23 year old female with hx of schizoaffective d/o who was recently discharged from on 12/04/23 who presented to ER d/t suicidal ideation secondary to worsening depression and auditory hallucinations instructing her to harm herself. Hospital course: 12/17: pt had ECT this morning. Continue current tx plan. 12/18 restarted lorazepam for catatonic like sx periods agitation more active today pt very disorganized 12/19 completely disorganized; refused ECT today; refusing meds Formulation/clinical reasoning: Patient soon returns to the unit, with return of psychotic delirium and catatonic symptoms which fully resolved during last admission a few weeks ago once she got ECT. Accepted ECT on 12/17 however refused it on 12/19. Will continue to schedule ECT MWF as patient does continue to have moments where she is intermittently lucid enough and wants ECT to make auditory hallucinations to go away. Patient was also getting ECT as an outpatient until very recently. Healthcare proxy invoked; pending affirmation Plan: HCP invoked CV Continue ECT MWF: Patient benefited from ECT in the past and would ask for it since it would help decrease and then eliminate auditory hallucinations; patient may very well again consent Continue Abilify though patient refuses Increase Ativan to 1 mg t.i.d. given catatonic symptoms Ativan 2 mg prior to ECT; Patient having difficulty integrating information at this time healthcare proxy was invoked and informed consent for ECT was obtained from the patient's mother who is healthcare proxy; anesthesia also obtained informed consent the patient was agreeable to admission and is agreeing to ECT 12/21/2023: No changes. Continue to encourage ECT, next scheduled on Saturday12/23/2023 12/22/2023: No changes. Continue to encourage ECT, next scheduled on Saturday12/23/2023 Reason for continued inpatient stay Substantial Risk for: inability to function Time Spent With Patient Time: Total time managing care of this patient today ____ minutes.
[2023-12-22] MEDS: LORazepam 1 MG TABLET PO ×3 (11:55→20:57)
[2023-12-22] MEDS: Acetaminophen 325 MG TABLET 650 MG PO (13:16)
[2023-12-22 19:50] VITALS: BP 125/92; PULSE 116; RESP 18; TEMP 36.8; O2SAT 96
[2023-12-22] MEDS: ARIPiprazole 15 MG TABLET PO (20:58)
[2023-12-23] VITALS (11 sets, daily range): BP systolic 100–129; BP diastolic 61–81; PULSE 78–104; RESP 16–18; TEMP 36.4–37.6; O2SAT 98–100; BMI 28.4
--- NOTE | 2023-12-23 07:40 | MHC.SHP ---
Pre-Procedural Eval Section A - 24 Hr Update-Section A only Date of Service: 12/23/23 The patient is an INPATIENT: Yes Changes since office visit: No Cold of Flu in the past 2 weeks, No New Medical Problems, No Changes in Medication and No Patient answered all questions The patient has been examined within 24 hours of the surgical procedure. The History & Physical has been completed within 30 days and I have reviewed it.: Yes Section B - Complete if H&P > 30 days Chief Complaint: Psychosis Details of Present Illness: remains in psychotic delirium and with catatonia Relevant Social History: None Medical History: Significant History (chronic intermittent tachycardia) History of Previous Operations: No relevant previous surgery Allergies: Allergies Allergy/AdvReac Type Severity Reaction Status Date / Time haloperidol AdvReac EPS Verified 12/15/23 19:33 metoprolol AdvReac Diarrhea Verified 12/15/23 19:33 Plan Diagnosis/Plan: Unchanged I have reviewed the history and physical and performed a pertinent physical examination on my patient. No changes have occurred unless specified. Time Spent With Patient Time: Total time managing care of this patient today ____ minutes.
--- NOTE | 2023-12-23 07:43 | HO.ECTPROC ---
ECT Procedure Note Diagnosis/Treatment Date of Service: 12/23/23 Diagnosis: Catatonia and Schizoaffective Disorder Previous ECT Date: 12/18/23 Current Treatment Number: 2 (12/23/23) Treatment: Series Interval Clinical Notes: Pt remains with significant psychotic and catatonic symptoms Time: Total time managing care of this patient today ____ minutes. ECT Settings Device: THYMATRON DGx Electrode Placement: Bitemporal Program/Pulse Width: 0.25 Energy Percent: 60 Seizure Duration By EEG (in seconds): 71 Medications Administration General Anesthetic: Etomidate (14mg) Muscle Relaxant: Succinylcholine (80mg) Ancillary Medications Analgesics: Torodol - Pre ECT Anti-emetics: Zofran - Pre ECT Cardiovascular Medications: Esmolol (did not get this time (previously given post ect for tachycardia)) Miscillaneous Medications: Other (ativan 2mg post-ect to treat Catatonia) Airway Management Airway Management: Bag Mask Ventilation Treatment Recommendations No Changes Recommended: No change Electrode Placement: Bitemporal Program/Pulse Width: 0.25 Energy Percent: 60 Notes: Bitemporal used given severity of psychotic delirium and catatonic symptoms adequate seizure of 71 seconds which ended on it's own (w/out need for propofol) at Pulse width 0.25 and Energy 60% Pt Tolerated Procedure w/o Issue: Yes
--- NOTE | 2023-12-23 08:01 | P.CONAN_ITS ---
[facility] Active Problems Active Problems: All Active Problems Catatonia (Acute) Auditory hallucination (Acute) Bipolar disorder in remission (Acute) Pre-op evaluation (Acute) Supraventricular tachycardia (Acute) Schizoaffective disorder (Acute) Intellectual disability (Acute) Major depressive disorder, recurrent episode, severe, with psychosis (Chronic) Contraception management (Acute) Vitamin D deficiency (Acute) Vitamin B12 deficiency (Acute) Uses control (Acute) Supraventricular tachycardia by ECG (Acute) Migraine (Acute) Past Medical History Medical History Bipolar disorder in remission Supraventricular tachycardia Schizoaffective disorder Intellectual disability Contraception management Vitamin D deficiency Vitamin B12 deficiency Uses control Hx of ovarian cyst Epigastric abdominal pain Orthostatic hypotension Supraventricular tachycardia by ECG Left ovarian cyst Migraine Family History Family History Mother Bipolar disorder Mental health disorder Family history of problems with anesthesia: No Surgical History Surgical History H/O removal of cyst History of Problems with Anesthesia: No Social History Social History Household Members: Family Household Members Other:: Pt unable to answer questions d/t mental status. Housing: House Housing Other:: at home with mother Are you a primary acute care nurse practitioner to a significant other at home: No Alcohol intake: never Comment: 1:1 sitter Patient Tobacco Use Status: Never used Tobacco e-Cigarette/Vaping Use: Never Used Second Hand Smoke Exposure: No Substance Use Type: Unknown Advance Directives Date on File: 12/10/23 service: No Current occupational status: unemployed Sexual orientation: Straight/Heterosexual Gender identity: Female Cognitive needs: No Hearing needs: No Vision needs: No Meds Allergies Allergy/AdvReac Type Severity Reaction Status Date / Time haloperidol AdvReac EPS Verified 12/15/23 19:33 metoprolol AdvReac Diarrhea Verified 12/15/23 19:33 Active Medications: Current Medications Acetaminophen (Acetaminophen 325 Mg Tablet) 650 mg PO Q6H PRN PRN Reason: Headache/Pain Mild Scale (1-3) Last Admin: 12/22/23 13:16 Dose: 650 mg Al Hydroxide/Mg Hydroxide (Magnesium Hydrox/Alum Hydrox 30 Ml Oral.Susp) 30 ml PO Q6H PRN PRN Reason: Heartburn/Nausea Aripiprazole (Aripiprazole 15 Mg Tablet) 15 mg PO BEDTIME KRISTI Last Admin: 12/22/23 20:58 Dose: 15 mg Clonidine HCl (Clonidine Hcl 0.1 Mg Tablet) 0.1 mg PO Q4H PRN; Protocol PRN Reason: mild anxiety (try 1st) Last Admin: 12/19/23 20:17 Dose: 0.1 mg Hydroxyzine HCl (Hydroxyzine Hcl 25 Mg Tablet) 25 mg PO Q6H PRN PRN Reason: Anxiety Last Admin: 12/19/23 20:18 Dose: 25 mg Hydroxyzine HCl (Hydroxyzine Hcl 25 Mg Tablet) 25 mg PO Q6H PRN PRN Reason: Anxiety Lactated Ringer's (Lr) 1,000 mls @ 50 mls/hr IVCONT .Q20H KRISTI Lorazepam (Lorazepam 1 Mg Tablet) 1 mg PO BEDTIME KRISTI Last Admin: 12/22/23 20:57 Dose: 1 mg Lorazepam (Lorazepam 1 Mg Tablet) 1 mg PO TID KRISTI Last Admin: 12/22/23 20:57 Dose: 1 mg Lorazepam (Lorazepam 1 Mg Tablet) 2 mg PO DAILY KRISTI Last Admin: 12/23/23 06:13 Dose: 2 mg Magnesium Hydroxide (Milk Of Magnesia 30 Ml Oral.Susp) 30 ml PO DAILY PRN PRN Reason: Constipation Ondansetron HCl (Ondansetron Odt 4 Mg Tab.Rapdis) 4 mg TRANSLINGU Q6H PRN PRN Reason: Nausea And Vomiting Last Admin: 12/16/23 01:05 Dose: 4 mg Trazodone HCl (Trazodone Hcl 50 Mg Tablet) 50 mg PO BEDTIME MRX1 PRN PRN Reason: Insomnia Last Admin: 12/18/23 00:14 Dose: 50 mg Exam Height,Weight and Vital Signs: Height 5 ft Weight 66 kg Last Vital Signs Temp 98.4 F 12/23/23 06:52 Pulse 104 H 12/23/23 06:52 Resp 16 12/23/23 06:52 BP 124/78 12/23/23 06:52 Pulse Ox 100 12/23/23 06:52 O2 Del Method Room Air 12/23/23 06:52 O2 Flow Rate 2 12/18/23 07:47 Pertinent Lab Results Pertinent Lab Results: Laboratory Tests 12/16/23 11:42 Urine Color Yellow Urine Appearance Cloudy Urine pH 7.0 Ur Specific [place] 1.010 Urine Protein Negative Urine Glucose (UA) Negative Urine Ketones Negative Urine Blood Negative Urine Nitrite Positive H Ur Leukocyte Esterase Trace H Urine RBC 0-2 Urine WBC 0-5 Ur Squamous Epith Cells 6-10 Urine Bacteria 4+ Hyaline Casts 0-2 Urine Test NEGATIVE Urine Opiates Screen Not Detected Ur Buprenorphine Scrn Not Detected Ur Oxycodone Screen Not Detected Urine Methadone Screen Not Detected Urine Fentanyl Screen Not Detected Ur Barbiturates Screen Not Detected Ur Phencyclidine Scrn Not Detected Ur Amphetamines Screen Not Detected U Benzodiazepines Scrn Not Detected Urine Cocaine Screen Not Detected U Marijuana (THC) Screen Not Detected Airway Mallampati Class: II TM Dist: >3cm Neck ROM: Full Heart: rrr Lungs: cta Assessment and Plan Assessment Anesthesia Assessment: Anesthesia Plan Discussed and Chart Reviewed Final Anesthetic Review Family History of Problems with Anesthesia: No History of Problems with Anesthesia: No NPO: Yes ASA Class: III Final Preanesthetic Review: No Changes in Pt Med Stat, Meds/Allgs Chart Reviewed and Consent Obtained/Reviewed Patient Risk: Intermediate Procedure Risk: Intermediate Anesthetic Plan Anesthetic Plan: GA Disposition: Standard PACU
[2023-12-23] MEDS: LORazepam 2 MG/ML VIAL IVPUSH (08:31)
[2023-12-23 08:47] LABS: MANUAL DIFF FLAG NO
[2023-12-23 08:50] LABS: Basophils Percent Auto 0.5 % (0-2); Eosinophils Absolute Auto 0.1 X10*3/uL (0.0-0.4); Eosinophils Percent Auto 1.8 % (0-4); Hematocrit 35.5 % (37.0-47.0); Hemoglobin 11.6 g/dl (12.0-16.0); Imm Gran Abs Auto 0.03 X10*3/uL (0.00-0.03); Imm Gran Pct Auto 0.5 % (0.0-0.4); Lymphocytes Absolute Auto 1.3 X10*3/uL (1.2-4.9); Lymphocytes Percent Auto 24.2 % (20-40); Mean Corpuscular HGB Conc 32.7 g/dl (31.0-35.0); Mean Corpuscular Hemoglobin 27.2 pg (27.0-33.0); Mean Corpuscular Volume 83.3 fL (80.0-98.0); Mean Platelet Volume 9.8 fL (9.4-12.3); Monocytes Absolute Auto 0.6 X10*3/uL (0.1-1.2); Monocytes Percent Auto 9.9 % (2-11); Neutrophils Absolute Auto 3.5 x10*3/uL (2.0-8.3); Neutrophils Percent Auto 63.1 % (45-73); Platelet Count 363 X10*3/uL (160-400); Red Blood Count 4.26 X10*6/uL (4.20-5.50); Red Cell Distribution Width 15.8 % (11.0-16.0); White Blood Count 5.5 X10*3/uL (4.8-10.8)
[2023-12-23 09:06] LABS: Alanine Aminotransferase 15 U/L (0-31); Albumin Level 3.9 g/dL (3.5-5.0); Alkaline Phosphatase 70 U/L (39-117); Anion Gap 14 (12-20); Aspartate Amino Transferase 18 U/L (5-31); Bilirubin Total 0.5 mg/dL (0.0-1.0); Blood Urea Nitrogen 4 mg/dL (9-16); Calcium 9.8 mg/dL (8.4-10.2); Carbon Dioxide 26 mmol/L (22-29); Chloride 104 mmol/L (96-108); Creatinine Clr Calc Pharmacy 117.8; Estimated Glomerular Filt Rate > 60; Glucose Fasting 101 mg/dL (60-99); Potassium 3.4 mmol/L (3.3-5.1); Sodium 141 mmol/L (135-145); Total Protein 6.8 g/dL (6.5-8.0)
--- NOTE | 2023-12-23 09:47 | P.PNPSI_ITS ---
Subjective Subjective Date of Service: 12/23/23 Reason For Visit: Psychosis Interim History: met with patient; discussed with team pt remains psychotic, disorganized in speech and behavior and w/ catatonic symptoms. She seems to understand that ECT will help eradicate AH which she wants, and consented to ECT which she received. Mental Status Exam Mental Status Exam Narrative: Pt is alert and oriented; behavior is disorganized in speech and behavior, either mumbling inaudibly or nonverbal...patient is not in distress; dressed in hospital attire, disheveled; mood and affect blunted; eye contact limited; Speech is mostly nonverbal or mumbling; psychomotor retardation present; thought process disorganized; Thought content is on disorganized, paranoid ideations; no expressions of SI/HI. Internally preoccupied, AH Patients insight and judgment impaired Diagnostics Vital Signs (24Hr): Vital Signs - 24 hr 12/22/23 19:50 12/23/23 06:52 12/23/23 08:25 Temperature 98.3 F 98.4 F 99.6 F Pulse Rate 116 H 104 H 92 Respiratory Rate 18 16 16 Blood Pressure 125/92 H 124/78 121/77 Pulse Oximetry 96 100 98 Oxygen Delivery Method Room Air Room Air Nasal Cannula with ETCO2 Oxygen Flow Rate 2 12/23/23 08:30 12/23/23 08:35 12/23/23 08:40 Temperature Pulse Rate 84 84 85 Respiratory Rate 16 16 16 Blood Pressure 129/64 115/77 114/74 Pulse Oximetry 100 99 99 Oxygen Delivery Method Nasal Cannula with ETCO2 Nasal Cannula with ETCO2 Nasal Cannula with ETCO2 Oxygen Flow Rate 2 2 2 12/23/23 08:55 12/23/23 09:10 12/23/23 09:25 Temperature 98.4 F Pulse Rate 83 78 85 Respiratory Rate 16 16 16 Blood Pressure 104/61 110/69 110/63 Pulse Oximetry 100 100 100 Oxygen Delivery Method Nasal Cannula with ETCO2 Nasal Cannula with ETCO2 Room Air Oxygen Flow Rate 2 2 BMI result Body Mass Index 28.4 Labs 12/23/23 08:42 12/23/23 08:42 Labs: Laboratory Results - last 48 hr 12/23/23 08:42 WBC 5.5 RBC 4.26 Hgb 11.6 L Hct 35.5 L MCV 83.3 MCH 27.2 MCHC 32.7 RDW 15.8 Plt Count 363 MPV 9.8 Immature Gran % (Auto) 0.5 H Neut % (Auto) 63.1 Lymph % (Auto) 24.2 [place] % (Auto) 9.9 Eos % (Auto) 1.8 Baso % (Auto) 0.5 Lymph # (Auto) 1.3 [place] # (Auto) 0.6 Eos # (Auto) 0.1 Baso # (Auto) 0.0 Abs Immat Gran (auto) 0.03 Absolute Neuts (auto) 3.5 Absolute Nucleated RBC 0.000 Nucleated RBC % (auto) 0.0 Sodium 141 Potassium 3.4 Chloride 104 Carbon Dioxide 26 Anion Gap 14 BUN 4 L Creatinine 0.64 Estim Creat Clear Calc 117.8 Estimated GFR > 60 Fasting Glucose 101 H Calcium 9.8 Total Bilirubin 0.5 AST 18 ALT 15 Alkaline Phosphatase 70 Total Protein 6.8 Albumin 3.9 Medications Medications Current Medications Acetaminophen (Acetaminophen 325 Mg Tablet) 650 mg PO Q6H PRN PRN Reason: Headache/Pain Mild Scale (1-3) Last Admin: 12/22/23 13:16 Dose: 650 mg Al Hydroxide/Mg Hydroxide (Magnesium Hydrox/Alum Hydrox 30 Ml Oral.Susp) 30 ml PO Q6H PRN PRN Reason: Heartburn/Nausea Aripiprazole (Aripiprazole 15 Mg Tablet) 15 mg PO BEDTIME KRISTI Last Admin: 12/22/23 20:58 Dose: 15 mg Clonidine HCl (Clonidine Hcl 0.1 Mg Tablet) 0.1 mg PO Q4H PRN; Protocol PRN Reason: mild anxiety (try 1st) Last Admin: 12/19/23 20:17 Dose: 0.1 mg Hydroxyzine HCl (Hydroxyzine Hcl 25 Mg Tablet) 25 mg PO Q6H PRN PRN Reason: Anxiety Last Admin: 12/19/23 20:18 Dose: 25 mg Hydroxyzine HCl (Hydroxyzine Hcl 25 Mg Tablet) 25 mg PO Q6H PRN PRN Reason: Anxiety Lactated Ringer's (Lr) 1,000 mls @ 50 mls/hr IVCONT .Q20H KRISTI Lorazepam (Lorazepam 1 Mg Tablet) 1 mg PO BEDTIME KRISTI Last Admin: 12/22/23 20:57 Dose: 1 mg Lorazepam (Lorazepam 1 Mg Tablet) 1 mg PO TID KRISTI Last Admin: 12/22/23 20:57 Dose: 1 mg Lorazepam (Lorazepam 1 Mg Tablet) 2 mg PO DAILY KRISTI Last Admin: 12/23/23 06:13 Dose: 2 mg Magnesium Hydroxide (Milk Of Magnesia 30 Ml Oral.Susp) 30 ml PO DAILY PRN PRN Reason: Constipation Ondansetron HCl (Ondansetron Odt 4 Mg Tab.Rapdis) 4 mg TRANSLINGU Q6H PRN PRN Reason: Nausea And Vomiting Last Admin: 12/16/23 01:05 Dose: 4 mg Trazodone HCl (Trazodone Hcl 50 Mg Tablet) 50 mg PO BEDTIME MRX1 PRN PRN Reason: Insomnia Last Admin: 12/18/23 00:14 Dose: 50 mg Allergies Allergies Allergy/AdvReac Type Severity Reaction Status Date / Time haloperidol AdvReac EPS Verified 12/15/23 19:33 metoprolol AdvReac Diarrhea Verified 12/15/23 19:33 Assessment & Plan Assessment & Plan (1) Schizoaffective disorder: Status: Acute Code(s): F25.9 - Schizoaffective disorder, unspecified (2) Catatonia: Status: Acute Code(s): F06.1 - Catatonic disorder due to known physiological condition Plan Patient is a 23 year old female with hx of schizoaffective d/o who was recently discharged from on 12/04/23 who presented to ER d/t suicidal ideation secondary to worsening depression and auditory hallucinations instructing her to harm herself. Formulation/clinical reasoning: Patient soon returns to the unit, with return of psychotic delirium and catatonic symptoms which fully resolved during last admission a few weeks ago once she got ECT. Accepted ECT on 12/17 however refused it on 12/19. Will continue to schedule ECT MWF as patient does continue to have moments where she is intermittently lucid enough and wants ECT to make auditory hallucinations to go away. Patient was also getting ECT as an outpatient until very recently. Healthcare proxy invoked; pending affirmation Hospital course: 12/17: pt had ECT this morning. Continue current tx plan. 12/18 restarted lorazepam for catatonic like sx periods agitation more active today pt very disorganized 12/19 completely disorganized; refused ECT today; refusing meds Patient having difficulty integrating information at this time healthcare proxy was invoked and informed consent for ECT was obtained from the patient's mother who is healthcare proxy; anesthesia also obtained informed consent the patient was agreeable to admission and is agreeing to ECT 12/21/23: No changes. Continue to encourage ECT, next scheduled on Saturday12/23/202312/21: No changes. Continue to encourage 12/22 pt remains psychotic, disorganized in speech and behavior and w/ catatonic symptoms. She consented to ECT which she received. Plan: HCP invoked CV Continue ECT MWF: Patient benefited from ECT in the past and would ask for it since it would help decrease and then eliminate auditory hallucinations; patient may very well again consent Continue Abilify though patient refuses Increase Ativan to 1 mg t.i.d. given catatonic symptoms Ativan 2 mg prior to ECT; Patient educated on: diagnosis, medication risk/benefits and ECT Informed Consent: understands, does not understand and further education needed Reason for continued inpatient stay Substantial Risk for: inability to function Time Spent With Patient Time: Total time managing care of this patient today ____ minutes.
[2023-12-23] MEDS: Acetaminophen 325 MG TABLET 650 MG PO ×2 (13:23→20:53)
[2023-12-23] MEDS: LORazepam 1 MG TABLET PO ×2 (18:12→20:18)
[2023-12-23] MEDS: ARIPiprazole 15 MG TABLET PO (20:18)
[2023-12-24 08:00] VITALS: BP 126/88; PULSE 100; RESP 17; TEMP 36.7; O2SAT 98
--- NOTE | 2023-12-24 09:15 | P.PNPSI_ITS ---
Subjective Subjective Date of Service: 12/24/23 Reason For Visit: Psychosis Interim History: Met with patient; discussed with team Yesterday later on patient did eat meal with her mother; later in the evening patient started talking more freely and asked why she was in the hospital and what was her diagnosis. Today patient is talking more. She remains disorganized in speech and behavior and initially asked casualty underwriter if she is in trouble, which she has been asking peers and staff, under the delusion that she has committed some crime. She seems to understand that ECT has been helpful and will reduce auditory hallucinations. Patient later continued to come to casualty underwriter and ask if she was or tell casualty underwriter that she is , not accepting negative lab results Mental Status Exam Mental Status Exam Narrative: Pt is alert and oriented; behavior is disorganized in speech and behavior, talking more though disorganized; patient is not in distress; dressed in hospital attire, disheveled; mood and affect blunted; eye contact limited; Speech is mostly nonverbal or mumbling; psychomotor retardation present; thought process disorganized; Thought content is on disorganized, paranoid ideations; no expressions of SI/HI. Internally preoccupied, AH Patients insight and judgment impaired Diagnostics Vital Signs (24Hr): Vital Signs - 24 hr 12/23/23 09:25 12/23/23 10:40 12/23/23 20:00 Temperature 98.4 F 98.7 F 97.6 F Pulse Rate 85 87 103 H Respiratory Rate 16 18 Blood Pressure 110/63 100/70 118/81 Pulse Oximetry 100 100 Oxygen Delivery Method Room Air Room Air 12/24/23 08:00 Temperature 98.1 F Pulse Rate 100 Respiratory Rate 17 Blood Pressure 126/88 Pulse Oximetry 98 Oxygen Delivery Method Room Air BMI result Body Mass Index 28.4 Labs 12/23/23 08:42 12/23/23 08:42 Labs: Laboratory Results - last 48 hr 12/23/23 08:42 WBC 5.5 RBC 4.26 Hgb 11.6 L Hct 35.5 L MCV 83.3 MCH 27.2 MCHC 32.7 RDW 15.8 Plt Count 363 MPV 9.8 Immature Gran % (Auto) 0.5 H Neut % (Auto) 63.1 Lymph % (Auto) 24.2 [place] % (Auto) 9.9 Eos % (Auto) 1.8 Baso % (Auto) 0.5 Lymph # (Auto) 1.3 [place] # (Auto) 0.6 Eos # (Auto) 0.1 Baso # (Auto) 0.0 Abs Immat Gran (auto) 0.03 Absolute Neuts (auto) 3.5 Absolute Nucleated RBC 0.000 Nucleated RBC % (auto) 0.0 Sodium 141 Potassium 3.4 Chloride 104 Carbon Dioxide 26 Anion Gap 14 BUN 4 L Creatinine 0.64 Estim Creat Clear Calc 117.8 Estimated GFR > 60 Fasting Glucose 101 H Calcium 9.8 Total Bilirubin 0.5 AST 18 ALT 15 Alkaline Phosphatase 70 Total Protein 6.8 Albumin 3.9 Medications Medications Current Medications Acetaminophen (Acetaminophen 325 Mg Tablet) 650 mg PO Q6H PRN PRN Reason: Headache/Pain Mild Scale (1-3) Last Admin: 12/23/23 20:53 Dose: 650 mg Al Hydroxide/Mg Hydroxide (Magnesium Hydrox/Alum Hydrox 30 Ml Oral.Susp) 30 ml PO Q6H PRN PRN Reason: Heartburn/Nausea Aripiprazole (Aripiprazole 15 Mg Tablet) 15 mg PO BEDTIME [facility] Last Admin: 12/23/23 20:18 Dose: 15 mg Clonidine HCl (Clonidine Hcl 0.1 Mg Tablet) 0.1 mg PO Q4H PRN; Protocol PRN Reason: mild anxiety (try 1st) Last Admin: 12/19/23 20:17 Dose: 0.1 mg Hydroxyzine HCl (Hydroxyzine Hcl 25 Mg Tablet) 25 mg PO Q6H PRN PRN Reason: Anxiety Lorazepam (Lorazepam 1 Mg Tablet) 1 mg PO TID [facility] Last Admin: 12/24/23 08:29 Dose: Not Given Lorazepam (Lorazepam 1 Mg Tablet) 2 mg PO DAILY@0615 [facility] Last Admin: 12/24/23 06:35 Dose: Not Given Magnesium Hydroxide (Milk Of Magnesia 30 Ml Oral.Susp) 30 ml PO DAILY PRN PRN Reason: Constipation Ondansetron HCl (Ondansetron Odt 4 Mg Tab.Rapdis) 4 mg TRANSLINGU Q6H PRN PRN Reason: Nausea And Vomiting Last Admin: 12/16/23 01:05 Dose: 4 mg Trazodone HCl (Trazodone Hcl 50 Mg Tablet) 50 mg PO BEDTIME MRX1 PRN PRN Reason: Insomnia Last Admin: 12/18/23 00:14 Dose: 50 mg Allergies Allergies Allergy/AdvReac Type Severity Reaction Status Date / Time haloperidol AdvReac EPS Verified 12/15/23 19:33 metoprolol AdvReac Diarrhea Verified 12/15/23 19:33 Assessment & Plan Assessment & Plan (1) Schizoaffective disorder: Status: Acute Code(s): F25.9 - Schizoaffective disorder, unspecified (2) Catatonia: Status: Acute Code(s): F06.1 - Catatonic disorder due to known physiological condition Plan Patient is a 23 year old female with hx of schizoaffective d/o who was recently discharged from on 12/04/23 who presented to ER d/t suicidal ideation secondary to worsening depression and auditory hallucinations instructing her to harm herself. Formulation/clinical reasoning: Patient soon returns to the unit, with return of psychotic delirium and catatonic symptoms which fully resolved during last admission a few weeks ago once she got ECT. Accepted ECT on 12/17 however refused it on 12/19. Will continue to schedule ECT MWF as patient does continue to have moments where she is intermittently lucid enough and wants ECT to make auditory hallucinations to go away. Patient was also getting ECT as an outpatient until very recently. Healthcare proxy invoked; pending affirmation Hospital course: 12/17: pt had ECT this morning. Continue current tx plan. 12/18 restarted lorazepam for catatonic like sx periods agitation more active today pt very disorganized 12/19 completely disorganized; refused ECT today; refusing meds Patient having difficulty integrating information at this time healthcare proxy was invoked and informed consent for ECT was obtained from the patient's mother who is healthcare proxy; anesthesia also obtained informed consent the patient was agreeable to admission and is agreeing to ECT 12/21/23: No changes. Continue to encourage ECT, next scheduled on Saturday12/23/202312/21: No changes. Continue to encourage 12/22 pt remains psychotic, disorganized in speech and behavior and w/ catatonic symptoms. She consented to ECT which she received. 12/23 Yesterday later on patient did eat meal with her mother; later in the evening patient started talking more freely and asked why she was in the hospital and what was her diagnosis. Today patient is talking more. She remains disorganized in speech and behavior and initially asked casualty underwriter if she is in trouble, which she has been asking peers and staff, under the delusion that she has committed some crime. She seems to understand that ECT has been helpful and will reduce auditory hallucinations. Patient later continued to come to casualty underwriter and ask if she was or tell casualty underwriter that she is , not accepting negative lab results Plan: HCP invoked CV Continue ECT MWF: Patient benefited from ECT in the past and would ask for it since it would help decrease and then eliminate auditory hallucinations; patient may very well again consent Continue Abilify though patient refuses Increase Ativan to 1 mg t.i.d. given catatonic symptoms Ativan 2 mg prior to ECT; Patient educated on: diagnosis, medication risk/benefits and ECT Informed Consent: understands, does not understand and further education needed Reason for continued inpatient stay Substantial Risk for: inability to function Time Spent With Patient Time: Total time managing care of this patient today ____ minutes.
--- NOTE | 2023-12-24 10:39 | HO.POSTANES ---
Post Anesthesia Evaluation Post Anesthesia Evaluation Date of Service: 12/23/23 Vital Signs: Vital Signs Temp Pulse Resp BP Pulse Ox O2 Del Method 12/24/23 08:00 98.1 F 100 17 126/88 98 Room Air Anesthesia: General Mental Status: Awake Pain Control: Satisfactory Nausea/Vomiting: None Anesthesia-Related Issues: No Anes. Related Issues
[2023-12-24] MEDS: LORazepam 1 MG TABLET PO ×2 (14:54→20:24)
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
[2023-12-24 20:00] VITALS: BP 100/59; PULSE 123; RESP 17; TEMP 36.6; O2SAT 95
[2023-12-24] MEDS: ARIPiprazole 15 MG TABLET PO (20:24)
[2023-12-25 08:00] VITALS: BP 126/88; PULSE 82; TEMP 37; O2SAT 100
[2023-12-25] MEDS: LORazepam 1 MG TABLET PO ×3 (08:21→20:14)
--- NOTE | 2023-12-25 09:30 | P.PNPSI_ITS ---
Subjective Subjective Date of Service: 12/25/23 Reason For Visit: Psychosis Interim History: met with patient; discussed with team remains disorganized; refused ECT today (initially went down for it, but once there refused); refused ativan. She remains psychotically delirius, mumbling. Sand Mixer Operator tried to discuss necessity for ECT but pt did not respond. Mental Status Exam Mental Status Exam Narrative: Pt is alert and oriented; behavior is disorganized in speech and behavior, talking more though disorganized; patient is not in distress; dressed in hospital attire, disheveled; mood and affect blunted; eye contact limited; Speech is mostly nonverbal or mumbling; psychomotor retardation present; thought process disorganized; Thought content is on disorganized, paranoid ideations; no expressions of SI/HI. Internally preoccupied, AH Patients insight and judgment impaired Diagnostics Vital Signs (24Hr): Vital Signs - 24 hr 12/24/23 20:00 12/25/23 08:00 Temperature 97.9 F 98.6 F Pulse Rate 123 H 82 Respiratory Rate 17 Blood Pressure 100/59 L 126/88 Pulse Oximetry 95 100 Oxygen Delivery Method Room Air Room Air BMI result Body Mass Index 28.4 Labs 12/23/23 08:42 12/23/23 08:42 Medications Medications Current Medications Acetaminophen (Acetaminophen 325 Mg Tablet) 650 mg PO Q6H PRN PRN Reason: Headache/Pain Mild Scale (1-3) Last Admin: 12/23/23 20:53 Dose: 650 mg Al Hydroxide/Mg Hydroxide (Magnesium Hydrox/Alum Hydrox 30 Ml Oral.Susp) 30 ml PO Q6H PRN PRN Reason: Heartburn/Nausea Aripiprazole (Aripiprazole 15 Mg Tablet) 15 mg PO BEDTIME [facility] Last Admin: 12/24/23 20:24 Dose: 15 mg Clonidine HCl (Clonidine Hcl 0.1 Mg Tablet) 0.1 mg PO Q4H PRN; Protocol PRN Reason: mild anxiety (try 1st) Last Admin: 12/19/23 20:17 Dose: 0.1 mg Hydroxyzine HCl (Hydroxyzine Hcl 25 Mg Tablet) 25 mg PO Q6H PRN PRN Reason: Anxiety Lorazepam (Lorazepam 1 Mg Tablet) 1 mg PO TID [facility] Last Admin: 12/25/23 08:21 Dose: 1 mg Lorazepam (Lorazepam 1 Mg Tablet) 1 mg PO MOWEFR [facility] Last Admin: 12/25/23 06:14 Dose: 1 mg Magnesium Hydroxide (Milk Of Magnesia 30 Ml Oral.Susp) 30 ml PO DAILY PRN PRN Reason: Constipation Ondansetron HCl (Ondansetron Odt 4 Mg Tab.Rapdis) 4 mg TRANSLINGU Q6H PRN PRN Reason: Nausea And Vomiting Last Admin: 12/16/23 01:05 Dose: 4 mg Trazodone HCl (Trazodone Hcl 50 Mg Tablet) 50 mg PO BEDTIME MRX1 PRN PRN Reason: Insomnia Last Admin: 12/18/23 00:14 Dose: 50 mg Allergies Allergies Allergy/AdvReac Type Severity Reaction Status Date / Time haloperidol AdvReac EPS Verified 12/15/23 19:33 metoprolol AdvReac Diarrhea Verified 12/15/23 19:33 Assessment & Plan Assessment & Plan (1) Schizoaffective disorder: Status: Acute Code(s): F25.9 - Schizoaffective disorder, unspecified (2) Catatonia: Status: Acute Code(s): F06.1 - Catatonic disorder due to known physiological condition Plan Patient is a 23 year old female with hx of schizoaffective d/o who was recently discharged from on 12/04/23 who presented to ER d/t suicidal ideation secondary to worsening depression and auditory hallucinations instructing her to harm herself. Formulation/clinical reasoning: Patient soon returns to the unit, with return of psychotic delirium and catatonic symptoms which fully resolved during last admission a few weeks ago once she got ECT. Accepted ECT on 12/17 however refused it on 12/19. Will continue to schedule ECT MWF as patient does continue to have moments where she is intermittently lucid enough and wants ECT to make auditory hallucinations to go away. Patient was also getting ECT as an outpatient until very recently. Healthcare proxy invoked; pending affirmation Hospital course: 12/17: pt had ECT this morning. Continue current tx plan. 12/18 restarted lorazepam for catatonic like sx periods agitation more active today pt very disorganized 12/19 completely disorganized; refused ECT today; refusing meds Patient having difficulty integrating information at this time healthcare proxy was invoked and informed consent for ECT was obtained from the patient's mother who is healthcare proxy; anesthesia also obtained informed consent the patient was agreeable to admission and is agreeing to ECT 12/21/23: No changes. Continue to encourage ECT, next scheduled on Saturday12/23/202312/21: No changes. Continue to encourage 12/22 pt remains psychotic, disorganized in speech and behavior and w/ catatonic symptoms. She consented to ECT which she received. 12/23 Yesterday later on patient did eat meal with her mother; later in the evening patient started talking more freely and asked why she was in the hospital and what was her diagnosis. Today patient is talking more. She remains disorganized in speech and behavior and initially asked television script writer if she is in trouble, which she has been asking peers and staff, under the delusion that she has committed some crime. She seems to understand that ECT has been helpful and will reduce auditory hallucinations. Patient later continued to come to television script writer and ask if she was or tell television script writer that she is , not accepting negative lab results 12/24 no change in presentation; will continue to offer ECT; last time, this was the essential treatment and very likely remains so Plan: HCP invoked; pending affirmation CV Continue ECT MWF: Patient benefited from ECT in the past and would ask for it since it would help decrease and then eliminate auditory hallucinations; patient may very well again consent Continue Abilify though patient refuses Increase Ativan to 1 mg t.i.d. given catatonic symptoms Ativan 1 mg prior to ECT; Patient educated on: diagnosis, medication risk/benefits and ECT Informed Consent: does not understand Reason for continued inpatient stay Substantial Risk for: inability to function Time Spent With Patient Time: Total time managing care of this patient today ____ minutes.
[2023-12-25] MEDS: Acetaminophen 325 MG TABLET 650 MG PO (16:28)
[2023-12-25 20:00] VITALS: BP 122/76; PULSE 102; RESP 18; TEMP 36.1; O2SAT 94
[2023-12-25] MEDS: ARIPiprazole 15 MG TABLET PO (20:14)
[2023-12-26 07:00] VITALS: BMI 28.1
[2023-12-26 08:00] VITALS: BP 112/68; PULSE 64; RESP 18; TEMP 36.6; O2SAT 92
[2023-12-26] MEDS: LORazepam 1 MG TABLET PO ×3 (08:23→19:57)
--- NOTE | 2023-12-26 09:06 | HO.PSYCHPN ---
Subjective Subjective Date of Service: 12/26/23 Reason For Visit: Psychosis Interim History: Met with patient; discussed with team Later on yesterday, patient asked multiple staff if she could talk to this physician underwriter. She said your Dr. Smith, right? and said she remembers working w/ physician underwriter. She remembers that she got ECT and that it helped take away the auditory hallucinations. She then asked if she can do it now but accepted that she will have to wait till Saturday for treatment to which she said okay. Today, patient came up to physician underwriter and apologized; she reported auditory hallucinations are telling her she was born by mistake... She again discussed ECT remembered that it helped with auditory hallucinations; she explained that she is hearing voices and asked what day she can get ECT again; she understood next treatment will be tomorrow morning to which she said okay. Mental Status Exam Mental Status Exam Narrative: Pt is alert and oriented; behavior is disorganized in speech but less so; still much wandering aimlessly; talking more and with more clarity; patient is not in distress; dressed in hospital attire, disheveled; mood and affect blunted; eye contact limited; Speech is sparse and quiet; often nonverbal or mumbling; psychomotor retardation present; thought process disorganized; Thought content is on disorganized, paranoid ideations; no expressions of SI/HI. Internally preoccupied, AH Patients insight and judgment impaired Diagnostics Vital Signs (24Hr): Vital Signs - 24 hr 12/25/23 20:00 Temperature 96.9 F Pulse Rate 102 H Respiratory Rate 18 Blood Pressure 122/76 Pulse Oximetry 94 Oxygen Delivery Method Room Air BMI result Body Mass Index 28.4 Labs 12/23/23 08:42 12/23/23 08:42 Medications Medications Current Medications Acetaminophen (Acetaminophen 325 Mg Tablet) 650 mg PO Q6H PRN PRN Reason: Headache/Pain Mild Scale (1-3) Last Admin: 12/25/23 16:28 Dose: 650 mg Al Hydroxide/Mg Hydroxide (Magnesium Hydrox/Alum Hydrox 30 Ml Oral.Susp) 30 ml PO Q6H PRN PRN Reason: Heartburn/Nausea Aripiprazole (Aripiprazole 15 Mg Tablet) 15 mg PO BEDTIME [facility] Last Admin: 12/25/23 20:14 Dose: 15 mg Clonidine HCl (Clonidine Hcl 0.1 Mg Tablet) 0.1 mg PO Q4H PRN; Protocol PRN Reason: mild anxiety (try 1st) Last Admin: 12/19/23 20:17 Dose: 0.1 mg Hydroxyzine HCl (Hydroxyzine Hcl 25 Mg Tablet) 25 mg PO Q6H PRN PRN Reason: Anxiety Lorazepam (Lorazepam 1 Mg Tablet) 1 mg PO TID [facility] Last Admin: 12/26/23 08:23 Dose: 1 mg Lorazepam (Lorazepam 1 Mg Tablet) 1 mg PO MOWEFR [facility] Last Admin: 12/25/23 19:39 Dose: Not Given Magnesium Hydroxide (Milk Of Magnesia 30 Ml Oral.Susp) 30 ml PO DAILY PRN PRN Reason: Constipation Ondansetron HCl (Ondansetron Odt 4 Mg Tab.Rapdis) 4 mg TRANSLINGU Q6H PRN PRN Reason: Nausea And Vomiting Last Admin: 12/16/23 01:05 Dose: 4 mg Trazodone HCl (Trazodone Hcl 50 Mg Tablet) 50 mg PO BEDTIME MRX1 PRN PRN Reason: Insomnia Last Admin: 12/18/23 00:14 Dose: 50 mg Allergies Allergies Allergy/AdvReac Type Severity Reaction Status Date / Time haloperidol AdvReac EPS Verified 12/15/23 19:33 metoprolol AdvReac Diarrhea Verified 12/15/23 19:33 Assessment & Plan Assessment & Plan (1) Schizoaffective disorder: Status: Acute Code(s): F25.9 - Schizoaffective disorder, unspecified (2) Catatonia: Status: Acute Code(s): F06.1 - Catatonic disorder due to known physiological condition Plan Patient is a 23 year old female with hx of schizoaffective d/o who was recently discharged from on 12/04/23 who presented to ER d/t suicidal ideation secondary to worsening depression and auditory hallucinations instructing her to harm herself. Formulation/clinical reasoning: Patient soon returns to the unit, with return of psychotic delirium and catatonic symptoms which fully resolved during last admission a few weeks ago once she got ECT. Accepted ECT on 12/17 however refused it on 12/19. Will continue to schedule ECT MWF as patient does continue to have moments where she is intermittently lucid enough and wants ECT to make auditory hallucinations to go away. Patient was also getting ECT as an outpatient until very recently. Healthcare proxy invoked; pending affirmation Hospital course: 12/17: pt had ECT this morning. Continue current tx plan. 12/18 restarted lorazepam for catatonic like sx periods agitation more active today pt very disorganized 12/19 completely disorganized; refused ECT today; refusing meds Patient having difficulty integrating information at this time healthcare proxy was invoked and informed consent for ECT was obtained from the patient's mother who is healthcare proxy; anesthesia also obtained informed consent the patient was agreeable to admission and is agreeing to ECT 12/21/23: No changes. Continue to encourage ECT, next scheduled on Saturday12/23/202312/21: No changes. Continue to encourage 12/22 pt remains psychotic, disorganized in speech and behavior and w/ catatonic symptoms. She consented to ECT which she received. 12/23 Yesterday later on patient did eat meal with her mother; later in the evening patient started talking more freely and asked why she was in the hospital and what was her diagnosis. Today patient is talking more. She remains disorganized in speech and behavior and initially asked physician underwriter if she is in trouble, which she has been asking peers and staff, under the delusion that she has committed some crime. She seems to understand that ECT has been helpful and will reduce auditory hallucinations. Patient later continued to come to physician underwriter and ask if she was or tell physician underwriter that she is , not accepting negative lab results 12/24 no change in presentation; will continue to offer ECT; last time, this was the essential treatment and very likely remains so Later on in the day, patient asked multiple staff if she could talk to this physician underwriter. She said you're Dr. Smith, right? and said she remembers working w/ physician underwriter at last admission. She remembers that she got ECT and that it helped take away the auditory hallucinations. She then asked if she can get it now but accepted that she'll have to wait till Sat for treatment to which she said ok. 12/25 remains disorganized and with paranoid delusions and AH. However she is talking more, eating a little and drinking more, and has some improved insight, remembering and wanting ECT. Today, patient came up to physician underwriter and apologized; she reported auditory hallucinations are telling her she was born by mistake... She again discussed ECT remembered that it helped with auditory hallucinations; she explained that she is hearing voices and asked what day she can get ECT again; she understood next treatment will be tomorrow morning to which she said okay. Plan: HCP invoked; pending affirmation CV Continue ECT MWF: Patient benefited from ECT in the past and would ask for it since it would help decrease and then eliminate auditory hallucinations; patient may very well again consent Continue Abilify though patient refuses Increase Ativan to 1 mg t.i.d. given catatonic symptoms Ativan 1 mg prior to ECT; Patient educated on: diagnosis and ECT Informed Consent: understands, does not understand and further education needed Reason for continued inpatient stay Substantial Risk for: inability to function Time Spent With Patient Time: Total time managing care of this patient today ____ minutes.
[2023-12-26 19:50] VITALS: BP 155/66; PULSE 100; RESP 16; TEMP 36.6; O2SAT 100
[2023-12-26] MEDS: ARIPiprazole 15 MG TABLET PO (19:56)
[2023-12-26] MEDS: Acetaminophen 325 MG TABLET 650 MG PO (19:57)
[2023-12-27] VITALS (9 sets, daily range): BP systolic 91–130; BP diastolic 49–83; PULSE 77–109; RESP 16–22; TEMP 36.2–36.8; O2SAT 98–100
[2023-12-27] MEDS: LORazepam 1 MG TABLET PO ×3 (06:22→20:36)
--- NOTE | 2023-12-27 06:52 | P.CONAN_ITS ---
FORM[facility]LY [facility] Active Problems Active Problems: All Active Problems Catatonia (Acute) Auditory hallucination (Acute) Bipolar disorder in remission (Acute) Pre-op evaluation (Acute) Supraventricular tachycardia (Acute) Schizoaffective disorder (Acute) Intellectual disability (Acute) Major depressive disorder, recurrent episode, severe, with psychosis (Chronic) Contraception management (Acute) Vitamin D deficiency (Acute) Vitamin B12 deficiency (Acute) Uses control (Acute) Supraventricular tachycardia by ECG (Acute) Migraine (Acute) Past Medical History Medical History Bipolar disorder in remission Supraventricular tachycardia Schizoaffective disorder Intellectual disability Contraception management Vitamin D deficiency Vitamin B12 deficiency Uses control Hx of ovarian cyst Epigastric abdominal pain Orthostatic hypotension Supraventricular tachycardia by ECG Left ovarian cyst Migraine Family History Family History Mother Bipolar disorder Mental health disorder Family history of problems with anesthesia: No Surgical History Surgical History H/O removal of cyst History of Problems with Anesthesia: No Social History Social History Household Members: Family Household Members Other:: Pt unable to answer questions d/t mental status. Housing: House Housing Other:: at home with mother Are you a primary health care consultant to a significant other at home: No Alcohol intake: never Comment: 1:1 sitter Patient Tobacco Use Status: Never used Tobacco e-Cigarette/Vaping Use: Never Used Second Hand Smoke Exposure: No Substance Use Type: Unknown Advance Directives Date on File: 12/10/23 service: No Current occupational status: unemployed Sexual orientation: Straight/Heterosexual Gender identity: Female Cognitive needs: No Hearing needs: No Vision needs: No Meds Allergies Allergy/AdvReac Type Severity Reaction Status Date / Time haloperidol AdvReac EPS Verified 12/15/23 19:33 metoprolol AdvReac Diarrhea Verified 12/15/23 19:33 Active Medications: Current Medications Acetaminophen (Acetaminophen 325 Mg Tablet) 650 mg PO Q6H PRN PRN Reason: Headache/Pain Mild Scale (1-3) Last Admin: 12/26/23 19:57 Dose: 650 mg Al Hydroxide/Mg Hydroxide (Magnesium Hydrox/Alum Hydrox 30 Ml Oral.Susp) 30 ml PO Q6H PRN PRN Reason: Heartburn/Nausea Aripiprazole (Aripiprazole 15 Mg Tablet) 15 mg PO BEDTIME [facility] Last Admin: 12/26/23 19:56 Dose: 15 mg Clonidine HCl (Clonidine Hcl 0.1 Mg Tablet) 0.1 mg PO Q4H PRN; Protocol PRN Reason: mild anxiety (try 1st) Last Admin: 12/19/23 20:17 Dose: 0.1 mg Hydroxyzine HCl (Hydroxyzine Hcl 25 Mg Tablet) 25 mg PO Q6H PRN PRN Reason: Anxiety Lactated Ringer's (Lr) 1,000 mls @ 50 mls/hr IVCONT .Q20H [facility] Lorazepam (Lorazepam 1 Mg Tablet) 1 mg PO TID [facility] Last Admin: 12/26/23 19:57 Dose: 1 mg Lorazepam (Lorazepam 1 Mg Tablet) 1 mg PO MOWEFR [facility] Last Admin: 12/27/23 06:22 Dose: 1 mg Magnesium Hydroxide (Milk Of Magnesia 30 Ml Oral.Susp) 30 ml PO DAILY PRN PRN Reason: Constipation Ondansetron HCl (Ondansetron Odt 4 Mg Tab.Rapdis) 4 mg TRANSLINGU Q6H PRN PRN Reason: Nausea And Vomiting Last Admin: 12/16/23 01:05 Dose: 4 mg Trazodone HCl (Trazodone Hcl 50 Mg Tablet) 50 mg PO BEDTIME MRX1 PRN PRN Reason: Insomnia Last Admin: 12/18/23 00:14 Dose: 50 mg Exam Height,Weight and Vital Signs: Height 5 ft Weight 65.3 kg Last Vital Signs Temp 98 F 12/26/23 19:50 Pulse 100 12/26/23 19:50 Resp 16 12/26/23 19:50 BP 155/66 H 12/26/23 19:50 Pulse Ox 100 12/26/23 19:50 O2 Del Method Room Air 12/26/23 19:50 O2 Flow Rate 2 12/23/23 09:10 Pertinent Lab Results Pertinent Lab Results: Laboratory Tests 12/16/23 12/23/23 11:42 08:42 WBC 5.5 RBC 4.26 Hgb 11.6 L Hct 35.5 L MCV 83.3 MCH 27.2 MCHC 32.7 RDW 15.8 Plt Count 363 MPV 9.8 Immature Gran % (Auto) 0.5 H Neut % (Auto) 63.1 Lymph % (Auto) 24.2 [place] % (Auto) 9.9 Eos % (Auto) 1.8 Baso % (Auto) 0.5 Lymph # (Auto) 1.3 [place] # (Auto) 0.6 Eos # (Auto) 0.1 Baso # (Auto) 0.0 Abs Immat Gran (auto) 0.03 Absolute Neuts (auto) 3.5 Absolute Nucleated RBC 0.000 Nucleated RBC % (auto) 0.0 Sodium 141 Potassium 3.4 Chloride 104 Carbon Dioxide 26 Anion Gap 14 BUN 4 L Creatinine 0.64 Estim Creat Clear Calc 117.8 Estimated GFR > 60 Fasting Glucose 101 H Calcium 9.8 Total Bilirubin 0.5 AST 18 ALT 15 Alkaline Phosphatase 70 Total Protein 6.8 Albumin 3.9 Urine Color Yellow Urine Appearance Cloudy Urine pH 7.0 Ur Specific [place] 1.010 Urine Protein Negative Urine Glucose (UA) Negative Urine Ketones Negative Urine Blood Negative Urine Nitrite Positive H Ur Leukocyte Esterase Trace H Urine RBC 0-2 Urine WBC 0-5 Ur Squamous Epith Cells 6-10 Urine Bacteria 4+ Hyaline Casts 0-2 Urine Test NEGATIVE Urine Opiates Screen Not Detected Ur Buprenorphine Scrn Not Detected Ur Oxycodone Screen Not Detected Urine Methadone Screen Not Detected Urine Fentanyl Screen Not Detected Ur Barbiturates Screen Not Detected Ur Phencyclidine Scrn Not Detected Ur Amphetamines Screen Not Detected U Benzodiazepines Scrn Not Detected Urine Cocaine Screen Not Detected U Marijuana (THC) Screen Not Detected Airway Mallampati Class: II TM Dist: >3cm Neck ROM: Full Heart: rrr Lungs: cta Assessment and Plan Assessment Anesthesia Assessment: Anesthesia Plan Discussed and Chart Reviewed Final Anesthetic Review Family History of Problems with Anesthesia: No History of Problems with Anesthesia: No NPO: Yes ASA Class: III Final Preanesthetic Review: No Changes in Pt Med Stat, Meds/Allgs Chart Reviewed and Consent Obtained/Reviewed Patient Risk: Intermediate Procedure Risk: Intermediate Anesthetic Plan Anesthetic Plan: GA Disposition: Standard PACU
--- NOTE | 2023-12-27 07:19 | MHC.SHP ---
Pre-Procedural Eval Section A - 24 Hr Update-Section A only Date of Service: 12/27/23 The patient is an INPATIENT: Yes Changes since office visit: No Cold of Flu in the past 2 weeks, No New Medical Problems, No Changes in Medication and No Patient answered all questions The patient has been examined within 24 hours of the surgical procedure. The History & Physical has been completed within 30 days and I have reviewed it.: Yes Section B - Complete if H&P > 30 days Chief Complaint: Psychosis Details of Present Illness: remains with psychosis/catatonia Allergies: Allergies Allergy/AdvReac Type Severity Reaction Status Date / Time haloperidol AdvReac EPS Verified 12/15/23 19:33 metoprolol AdvReac Diarrhea Verified 12/15/23 19:33 Plan Diagnosis/Plan: Unchanged I have reviewed the history and physical and performed a pertinent physical examination on my patient. No changes have occurred unless specified. Time Spent With Patient Time: Total time managing care of this patient today ____ minutes.
--- NOTE | 2023-12-27 07:20 | HO.ECTPROC ---
ECT Procedure Note Diagnosis/Treatment Date of Service: 12/27/23 Diagnosis: Schizoaffective Disorder (and catatonia) Previous ECT Date: 12/23/23 Current Treatment Number: 3 Treatment: Series Interval Clinical Notes: remains psychotic, disorganized and w/ catatonic symptoms, however some improved thought clarity and asking for ECT to help with voices. Time: Total time managing care of this patient today ____ minutes. ECT Settings Device: THYMATRON DGx Electrode Placement: Bitemporal Program/Pulse Width: 0.25 Energy Percent: 60 Seizure Duration By EEG (in seconds): 121 Medications Administration General Anesthetic: Etomidate (14) Muscle Relaxant: Succinylcholine (80) Ancillary Medications Analgesics: Torodol - Pre ECT Anti-emetics: Zofran - Pre ECT Miscillaneous Medications: Propofol (30) Airway Management Airway Management: Bag Mask Ventilation Treatment Recommendations Electrode Placement: Bitemporal Program/Pulse Width: 0.25 Energy Percent: 50 Notes: Continue ECT series pt did not require esmolol Pt had a longer seizure this time (121 seconds) and needed Propofol to stop it (and got Ativan 1mg prior to transfer to ECT) Recommend lowering energy to 50% next time Pt Tolerated Procedure w/o Issue: Yes
--- NOTE | 2023-12-27 08:12 | P.PNPSI_ITS ---
Subjective Subjective Date of Service: 12/27/23 Reason For Visit: Psychosis Interim History: met with pt; discussed with team; software writer administered ECT for patient; had a long seizure and so will reduce energy% pt up and about in mil[place] after ECT; talking more, eating and drinking. Still disorganized and delusional but overall more outward. She says yes regarding the ECT was helpful and again asked when next treatment would be... Mental Status Exam Mental Status Exam Narrative: Pt is alert and oriented; behavior is disorganized in speech but less so; still much wandering aimlessly; talking more and with more clarity; patient is not in distress; dressed in hospital attire, disheveled; mood and affect blunted; eye contact limited; Speech is sparse and quiet; often nonverbal or mumbling; psychomotor retardation present; thought process disorganized; Thought content is on disorganized, paranoid ideations; no expressions of SI/HI. Internally preoccupied, AH Patients insight and judgment impaired Diagnostics Vital Signs (24Hr): Vital Signs - 24 hr 12/26/23 19:50 12/27/23 07:44 12/27/23 07:49 Temperature 98 F 98.0 F Pulse Rate 100 78 77 Respiratory Rate 16 22 H 18 Blood Pressure 155/66 H 101/64 92/56 L Pulse Oximetry 100 98 99 Oxygen Delivery Method Room Air Nasal Cannula with ETCO2 Nasal Cannula with ETCO2 Oxygen Flow Rate 2 2 12/27/23 07:54 12/27/23 07:59 Temperature Pulse Rate 79 79 Respiratory Rate 18 17 Blood Pressure 96/50 L 91/52 L Pulse Oximetry 100 100 Oxygen Delivery Method Nasal Cannula with ETCO2 Nasal Cannula with ETCO2 Oxygen Flow Rate 2 2 BMI result Body Mass Index 28.1 Labs 12/23/23 08:42 12/23/23 08:42 Medications Medications Current Medications Acetaminophen (Acetaminophen 325 Mg Tablet) 650 mg PO Q6H PRN PRN Reason: Headache/Pain Mild Scale (1-3) Last Admin: 12/26/23 19:57 Dose: 650 mg Al Hydroxide/Mg Hydroxide (Magnesium Hydrox/Alum Hydrox 30 Ml Oral.Susp) 30 ml PO Q6H PRN PRN Reason: Heartburn/Nausea Aripiprazole (Aripiprazole 15 Mg Tablet) 15 mg PO BEDTIME [facility] Last Admin: 12/26/23 19:56 Dose: 15 mg Clonidine HCl (Clonidine Hcl 0.1 Mg Tablet) 0.1 mg PO Q4H PRN; Protocol PRN Reason: mild anxiety (try 1st) Last Admin: 12/19/23 20:17 Dose: 0.1 mg Hydroxyzine HCl (Hydroxyzine Hcl 25 Mg Tablet) 25 mg PO Q6H PRN PRN Reason: Anxiety Lactated Ringer's (Lr) 1,000 mls @ 50 mls/hr IVCONT .Q20H [facility] Lorazepam (Lorazepam 1 Mg Tablet) 1 mg PO TID [facility] Last Admin: 12/26/23 19:57 Dose: 1 mg Lorazepam (Lorazepam 1 Mg Tablet) 1 mg PO MOWEFR [facility] Last Admin: 12/27/23 06:22 Dose: 1 mg Magnesium Hydroxide (Milk Of Magnesia 30 Ml Oral.Susp) 30 ml PO DAILY PRN PRN Reason: Constipation Ondansetron HCl (Ondansetron Odt 4 Mg Tab.Rapdis) 4 mg TRANSLINGU Q6H PRN PRN Reason: Nausea And Vomiting Last Admin: 12/16/23 01:05 Dose: 4 mg Trazodone HCl (Trazodone Hcl 50 Mg Tablet) 50 mg PO BEDTIME MRX1 PRN PRN Reason: Insomnia Last Admin: 12/18/23 00:14 Dose: 50 mg Allergies Allergies Allergy/AdvReac Type Severity Reaction Status Date / Time haloperidol AdvReac EPS Verified 12/15/23 19:33 metoprolol AdvReac Diarrhea Verified 12/15/23 19:33 Assessment & Plan Assessment & Plan (1) Schizoaffective disorder: Status: Acute Code(s): F25.9 - Schizoaffective disorder, unspecified (2) Catatonia: Status: Acute Code(s): F06.1 - Catatonic disorder due to known physiological condition Plan Patient is a 23 year old female with hx of schizoaffective d/o who was recently discharged from on 12/04/23 who presented to ER d/t suicidal ideation secondary to worsening depression and auditory hallucinations instructing her to harm herself. Formulation/clinical reasoning: Patient soon returns to the unit, with return of psychotic delirium and catatonic symptoms which fully resolved during last admission a few weeks ago once she got ECT. Accepted ECT on 12/17 however refused it on 12/19. Will continue to schedule ECT MWF as patient does continue to have moments where she is intermittently lucid enough and wants ECT to make auditory hallucinations to go away. Patient was also getting ECT as an outpatient until very recently. Healthcare proxy invoked; pending affirmation Hospital course: 12/17: pt had ECT this morning. Continue current tx plan. 12/18 restarted lorazepam for catatonic like sx periods agitation more active today pt very disorganized 12/19 completely disorganized; refused ECT today; refusing meds Patient having difficulty integrating information at this time healthcare proxy was invoked and informed consent for ECT was obtained from the patient's mother who is healthcare proxy; anesthesia also obtained informed consent the patient was agreeable to admission and is agreeing to ECT 12/21/23: No changes. Continue to encourage ECT, next scheduled on Saturday12/23/202312/21: No changes. Continue to encourage 12/22 pt remains psychotic, disorganized in speech and behavior and w/ catatonic symptoms. She consented to ECT which she received. 12/23 Yesterday later on patient did eat meal with her mother; later in the evening patient started talking more freely and asked why she was in the hospital and what was her diagnosis. Today patient is talking more. She remains disorganized in speech and behavior and initially asked software writer if she is in trouble, which she has been asking peers and staff, under the delusion that she has committed some crime. She seems to understand that ECT has been helpful and will reduce auditory hallucinations. Patient later continued to come to software writer and ask if she was or tell software writer that she is , not accepting negative lab results 12/24 no change in presentation; will continue to offer ECT; last time, this was the essential treatment and very likely remains so Later on in the day, patient asked multiple staff if she could talk to this software writer. She said you're Dr. Smith, right? and said she remembers working w/ software writer at last admission. She remembers that she got ECT and that it helped take away the auditory hallucinations. She then asked if she can get it now but accepted that she'll have to wait till Sat for treatment to which she said ok. 12/25 remains disorganized and with paranoid delusions and AH. However she is talking more, eating a little and drinking more, and has some improved insight, remembering and wanting ECT. Today, patient came up to software writer and apologized; she reported auditory hallucinations are telling her she was born by mistake... She again discussed ECT remembered that it helped with auditory hallucinations; she explained that she is hearing voices and asked what day she can get ECT again; she understood next treatment will be tomorrow morning to which she said okay. 12/26 patient had ECT today; patient talking more and though still disorganized, less so; wanted to take a shower; later on said she was continue with ECT since it helps with voices. Still struggling with paranoid delusions but redirectable. Taking Ativan and Abilify. Plan: HCP invoked; pending affirmation CV Continue ECT MWF: Patient benefited from ECT in the past and would ask for it since it would help decrease and then eliminate auditory hallucinations; patient may very well again consent Continue Abilify 15 mg q.h.s. Continue Ativan to 1 mg t.i.d. given catatonic symptoms Ativan 1 mg prior to ECT; Patient educated on: diagnosis, medication risk/benefits and ECT Informed Consent: understands, does not understand and further education needed Reason for continued inpatient stay Substantial Risk for: inability to function Time Spent With Patient Time: Total time managing care of this patient today ____ minutes.
[2023-12-27] MEDS: Acetaminophen 325 MG TABLET 650 MG PO (13:07)
[2023-12-27] MEDS: ARIPiprazole 15 MG TABLET PO (20:36)
[2023-12-28 08:00] VITALS: BP 125/63; PULSE 118; RESP 16; TEMP 37.1; O2SAT 100
[2023-12-28] MEDS: LORazepam 1 MG TABLET PO ×3 (08:25→21:17)
--- NOTE | 2023-12-28 08:51 | HO.PSYCHPN ---
Subjective Subjective Date of Service: 12/28/23 Reason For Visit: Psychosis Subjective Notes: Conditional Voluntary Medical Problems Affecting Mental Status: No Interim History: Pt perseverative on fear she might be - despite negative test 12/17 will reorder today- Pt appears thought blocked did agree to ECt yesterday- which did help her last time she was this disorganized- Medication Compliance: Yes Side effects from medications: No Attending Groups: No Review of Systems Acute medical concerns: No Medical Review of Systems: unchanged Mental Status Exam Mental Status Exam Patient Appearance: Unkempt Patient Orientation: Person and Place Level of Consciousness: Awake Patient Behavior: Dependent and Passive Mood Description: Anxious Affect Description: Apprehensive Patient Cognition Impaired: Yes Ability to Follow Directions: Fair Thought Process: Slowed Thinking Thought Content: positive for Disorganized Depressive Symptoms: Increased Anxiety Abnormal Motor Activity Signs and Symptoms: Restlessness Judgement: Fair Diagnostics Vital Signs (24Hr): Vital Signs - 24 hr 12/27/23 09:30 12/27/23 20:00 Temperature 98 F 98.3 F Pulse Rate 78 109 H Respiratory Rate 16 Blood Pressure 124/78 130/83 Pulse Oximetry 99 BMI result Body Mass Index 28.1 Labs 12/23/23 08:42 12/23/23 08:42 Medications Medications Current Medications Acetaminophen (Acetaminophen 325 Mg Tablet) 650 mg PO Q6H PRN PRN Reason: Headache/Pain Mild Scale (1-3) Last Admin: 12/27/23 13:07 Dose: 650 mg Al Hydroxide/Mg Hydroxide (Magnesium Hydrox/Alum Hydrox 30 Ml Oral.Susp) 30 ml PO Q6H PRN PRN Reason: Heartburn/Nausea Aripiprazole (Aripiprazole 15 Mg Tablet) 15 mg PO BEDTIME [facility] Last Admin: 12/27/23 20:36 Dose: 15 mg Clonidine HCl (Clonidine Hcl 0.1 Mg Tablet) 0.1 mg PO Q4H PRN; Protocol PRN Reason: mild anxiety (try 1st) Last Admin: 12/19/23 20:17 Dose: 0.1 mg Hydroxyzine HCl (Hydroxyzine Hcl 25 Mg Tablet) 25 mg PO Q6H PRN PRN Reason: Anxiety Lorazepam (Lorazepam 1 Mg Tablet) 1 mg PO TID [facility] Last Admin: 12/28/23 08:25 Dose: 1 mg Lorazepam (Lorazepam 1 Mg Tablet) 1 mg PO MOWEFR [facility] Last Admin: 12/27/23 06:22 Dose: 1 mg Magnesium Hydroxide (Milk Of Magnesia 30 Ml Oral.Susp) 30 ml PO DAILY PRN PRN Reason: Constipation Ondansetron HCl (Ondansetron Odt 4 Mg Tab.Rapdis) 4 mg TRANSLINGU Q6H PRN PRN Reason: Nausea And Vomiting Last Admin: 12/16/23 01:05 Dose: 4 mg Trazodone HCl (Trazodone Hcl 50 Mg Tablet) 50 mg PO BEDTIME MRX1 PRN PRN Reason: Insomnia Last Admin: 12/18/23 00:14 Dose: 50 mg Allergies Allergies Allergy/AdvReac Type Severity Reaction Status Date / Time haloperidol AdvReac EPS Verified 12/15/23 19:33 metoprolol AdvReac Diarrhea Verified 12/15/23 19:33 Assessment & Plan Assessment & Plan (1) Schizoaffective disorder: Status: Acute Code(s): F25.9 - Schizoaffective disorder, unspecified (2) Catatonia: Status: Acute Code(s): F06.1 - Catatonic disorder due to known physiological condition Plan Patient is a 23 year old female with hx of schizoaffective d/o who was recently discharged from on 12/04/23 who presented to ER d/t suicidal ideation secondary to worsening depression and auditory hallucinations instructing her to harm herself. Formulation/clinical reasoning: Patient soon returns to the unit, with return of psychotic delirium and catatonic symptoms which fully resolved during last admission a few weeks ago once she got ECT. Accepted ECT on 12/17 however refused it on 12/19. Will continue to schedule ECT MWF as patient does continue to have moments where she is intermittently lucid enough and wants ECT to make auditory hallucinations to go away. Patient was also getting ECT as an outpatient until very recently. Healthcare proxy invoked; pending affirmation Hospital course: 12/17: pt had ECT this morning. Continue current tx plan. 12/18 restarted lorazepam for catatonic like sx periods agitation more active today pt very disorganized 12/19 completely disorganized; refused ECT today; refusing meds Patient having difficulty integrating information at this time healthcare proxy was invoked and informed consent for ECT was obtained from the patient's mother who is healthcare proxy; anesthesia also obtained informed consent the patient was agreeable to admission and is agreeing to ECT 12/21/23: No changes. Continue to encourage ECT, next scheduled on Saturday12/23/202312/21: No changes. Continue to encourage 12/22 pt remains psychotic, disorganized in speech and behavior and w/ catatonic symptoms. She consented to ECT which she received. 12/23 Yesterday later on patient did eat meal with her mother; later in the evening patient started talking more freely and asked why she was in the hospital and what was her diagnosis. Today patient is talking more. She remains disorganized in speech and behavior and initially asked inspector automatic typewriter if she is in trouble, which she has been asking peers and staff, under the delusion that she has committed some crime. She seems to understand that ECT has been helpful and will reduce auditory hallucinations. Patient later continued to come to inspector automatic typewriter and ask if she was or tell inspector automatic typewriter that she is , not accepting negative lab results 12/24 no change in presentation; will continue to offer ECT; last time, this was the essential treatment and very likely remains so Later on in the day, patient asked multiple staff if she could talk to this inspector automatic typewriter. She said you're Dr. Smith, right? and said she remembers working w/ inspector automatic typewriter at last admission. She remembers that she got ECT and that it helped take away the auditory hallucinations. She then asked if she can get it now but accepted that she'll have to wait till Sat for treatment to which she said ok. 12/25 remains disorganized and with paranoid delusions and AH. However she is talking more, eating a little and drinking more, and has some improved insight, remembering and wanting ECT. Today, patient came up to inspector automatic typewriter and apologized; she reported auditory hallucinations are telling her she was born by mistake... She again discussed ECT remembered that it helped with auditory hallucinations; she explained that she is hearing voices and asked what day she can get ECT again; she understood next treatment will be tomorrow morning to which she said okay. 12/26 patient had ECT today; patient talking more and though still disorganized, less so; wanted to take a shower; later on said she was continue with ECT since it helps with voices. Still struggling with paranoid delusions but redirectable. Taking Ativan and Abilify. Plan: HCP invoked; pending affirmation CV Continue ECT MWF: Patient benefited from ECT in the past and would ask for it since it would help decrease and then eliminate auditory hallucinations; patient may very well again consent Continue Abilify 15 mg q.h.s. Continue Ativan to 1 mg t.i.d. given catatonic symptoms Ativan 1 mg prior to ECT; 12/27/21 CTP - check [facility] [place], [place] Patient educated on: ECT and medical condition Informed Consent: further education needed Reason for continued inpatient stay Substantial Risk for: inability to function and rapid decompensation Time Spent With Patient Time: Total time managing care of this patient today ____ minutes.
[2023-12-28] MEDS: Acetaminophen 325 MG TABLET 650 MG PO ×2 (11:10→20:25)
[2023-12-28 12:09] LABS: UPreg QC Valid YES; Urine Pregnancy NEGATIVE (NEGATIVE)
[2023-12-28] MEDS: Milk of Magnesia 30 ML ORAL.SUSP PO (13:26)
[2023-12-28 19:55] VITALS: BP 111/62; PULSE 102; TEMP 36.2
[2023-12-28] MEDS: ARIPiprazole 15 MG TABLET PO (21:16)
[2023-12-29 08:00] VITALS: BP 117/63; PULSE 91; RESP 16; TEMP 36.5; O2SAT 100
[2023-12-29] MEDS: LORazepam 1 MG TABLET PO ×3 (08:31→20:13)
[2023-12-29] MEDS: Acetaminophen 325 MG TABLET 650 MG PO ×2 (09:24→16:55)
--- NOTE | 2023-12-29 10:29 | HO.PSYCHPN ---
Subjective Subjective Date of Service: 12/29/23 Reason For Visit: Psychosis Subjective Notes: Conditional Voluntary Healthcare Proxy: Yes Guardianship: No Medical Problems Affecting Mental Status: No Interim History: 23 yo mostly mute today- perseveration on issue of ? - despite 2nd negative urinary hcg 10 days after first- I am still worried Nursing looking into issue of bcp restart- and pt is willing to continue with ECT tomorrow. Saying my water broke like another psychotic patient is always saying- likely imitation Medication Compliance: Yes Side effects from medications: No (?dry mouth around lips) Attending Groups: Intermittent Review of Systems Acute medical concerns: No Medical Review of Systems: unchanged Mental Status Exam Mental Status Exam Patient Appearance: Appropriate and Rigid Patient Orientation: Person and Place Level of Consciousness: Awake and Alert Patient Behavior: Dependent, Passive and Timid Mood Description: Apprehensive Affect Description: Blunted Patient Cognition Impaired: Yes Ability to Follow Directions: Fair Speech Pattern: Impoverished and Mumbled Thought Process: Slowed Thinking Thought Content: positive for Poverty of Content, positive for Thought Blocking, positive for Slowed Thinking and positive for Disorganized Judgement: Poor Diagnostics Vital Signs (24Hr): Vital Signs - 24 hr 12/28/23 19:55 12/29/23 08:00 Temperature 97.2 F 97.7 F Pulse Rate 102 H 91 Respiratory Rate 16 Blood Pressure 111/62 117/63 Pulse Oximetry 100 Oxygen Delivery Method Room Air BMI result Body Mass Index 28.1 Labs 12/23/23 08:42 12/23/23 08:42 Labs: Laboratory Results - last 48 hr 12/28/23 11:30 Urine Test NEGATIVE Imaging Radiology Impressions: ITS Impressions Lumbar Spine X-Ray 12/28/23 21:40 IMPRESSION: No acute fracture of the lumbar spine or sacrum. Sacrum and Coccyx X-Ray 12/28/23 21:40 IMPRESSION: No acute fracture of the lumbar spine or sacrum. Medications Medications Current Medications Acetaminophen (Acetaminophen 325 Mg Tablet) 650 mg PO Q6H PRN PRN Reason: Headache/Pain Mild Scale (1-3) Last Admin: 12/29/23 09:24 Dose: 650 mg Al Hydroxide/Mg Hydroxide (Magnesium Hydrox/Alum Hydrox 30 Ml Oral.Susp) 30 ml PO Q6H PRN PRN Reason: Heartburn/Nausea Aripiprazole (Aripiprazole 15 Mg Tablet) 15 mg PO BEDTIME [facility] Last Admin: 12/28/23 21:16 Dose: 15 mg Clonidine HCl (Clonidine Hcl 0.1 Mg Tablet) 0.1 mg PO Q4H PRN; Protocol PRN Reason: mild anxiety (try 1st) Last Admin: 12/19/23 20:17 Dose: 0.1 mg Hydroxyzine HCl (Hydroxyzine Hcl 25 Mg Tablet) 25 mg PO Q6H PRN PRN Reason: Anxiety Lorazepam (Lorazepam 1 Mg Tablet) 1 mg PO TID [facility] Last Admin: 12/29/23 08:31 Dose: 1 mg Lorazepam (Lorazepam 1 Mg Tablet) 1 mg PO MOWEFR [facility] Last Admin: 12/27/23 06:22 Dose: 1 mg Magnesium Hydroxide (Milk Of Magnesia 30 Ml Oral.Susp) 30 ml PO DAILY PRN PRN Reason: Constipation Last Admin: 12/28/23 13:26 Dose: 30 ml Ondansetron HCl (Ondansetron Odt 4 Mg Tab.Rapdis) 4 mg TRANSLINGU Q6H PRN PRN Reason: Nausea And Vomiting Last Admin: 12/16/23 01:05 Dose: 4 mg Trazodone HCl (Trazodone Hcl 50 Mg Tablet) 50 mg PO BEDTIME MRX1 PRN PRN Reason: Insomnia Last Admin: 12/18/23 00:14 Dose: 50 mg Allergies Allergies Allergy/AdvReac Type Severity Reaction Status Date / Time haloperidol AdvReac EPS Verified 12/15/23 19:33 metoprolol AdvReac Diarrhea Verified 12/15/23 19:33 Assessment & Plan Assessment & Plan (1) Schizoaffective disorder: Status: Acute Code(s): F25.9 - Schizoaffective disorder, unspecified Assessment and Plan: ongoing disorganinzation believes she is or giving (not sure she understands what my water broke means) (2) Catatonia: Status: Acute Code(s): F06.1 - Catatonic disorder due to known physiological condition Plan Patient is a 23 year old female with hx of schizoaffective d/o who was recently discharged from on 12/04/23 who presented to ER d/t suicidal ideation secondary to worsening depression and auditory hallucinations instructing her to harm herself. Formulation/clinical reasoning: Patient soon returns to the unit, with return of psychotic delirium and catatonic symptoms which fully resolved during last admission a few weeks ago once she got ECT. Accepted ECT on 12/17 however refused it on 12/19. Will continue to schedule ECT MWF as patient does continue to have moments where she is intermittently lucid enough and wants ECT to make auditory hallucinations to go away. Patient was also getting ECT as an outpatient until very recently. Healthcare proxy invoked; pending affirmation Hospital course: 12/17: pt had ECT this morning. Continue current tx plan. 12/18 restarted lorazepam for catatonic like sx periods agitation more active today pt very disorganized 12/19 completely disorganized; refused ECT today; refusing meds Patient having difficulty integrating information at this time healthcare proxy was invoked and informed consent for ECT was obtained from the patient's mother who is healthcare proxy; anesthesia also obtained informed consent the patient was agreeable to admission and is agreeing to ECT 12/21/23: No changes. Continue to encourage ECT, next scheduled on Saturday12/23/202312/21: No changes. Continue to encourage 12/22 pt remains psychotic, disorganized in speech and behavior and w/ catatonic symptoms. She consented to ECT which she received. 12/23 Yesterday later on patient did eat meal with her mother; later in the evening patient started talking more freely and asked why she was in the hospital and what was her diagnosis. Today patient is talking more. She remains disorganized in speech and behavior and initially asked junior underwriter if she is in trouble, which she has been asking peers and staff, under the delusion that she has committed some crime. She seems to understand that ECT has been helpful and will reduce auditory hallucinations. Patient later continued to come to junior underwriter and ask if she was or tell junior underwriter that she is , not accepting negative lab results 12/24 no change in presentation; will continue to offer ECT; last time, this was the essential treatment and very likely remains so Later on in the day, patient asked multiple staff if she could talk to this junior underwriter. She said you're Dr. Smith, right? and said she remembers working w/ junior underwriter at last admission. She remembers that she got ECT and that it helped take away the auditory hallucinations. She then asked if she can get it now but accepted that she'll have to wait till Sat for treatment to which she said ok. 12/25 remains disorganized and with paranoid delusions and AH. However she is talking more, eating a little and drinking more, and has some improved insight, remembering and wanting ECT. Today, patient came up to junior underwriter and apologized; she reported auditory hallucinations are telling her she was born by mistake... She again discussed ECT remembered that it helped with auditory hallucinations; she explained that she is hearing voices and asked what day she can get ECT again; she understood next treatment will be tomorrow morning to which she said okay. 12/26 patient had ECT today; patient talking more and though still disorganized, less so; wanted to take a shower; later on said she was continue with ECT since it helps with voices. Still struggling with paranoid delusions but redirectable. Taking Ativan and Abilify. Plan: HCP invoked; pending affirmation CV Continue ECT MWF: Patient benefited from ECT in the past and would ask for it since it would help decrease and then eliminate auditory hallucinations; patient may very well again consent Continue Abilify 15 mg q.h.s. Continue Ativan to 1 mg t.i.d. given catatonic symptoms Ativan 1 mg prior to ECT; 12/28/23 CTP - check uhcg 12/29/23- ECT tomorrow, uhcg negative again- nursing looking into bcp from prior admit Patient educated on: ECT and medical condition Informed Consent: does not understand and further education needed Reason for continued inpatient stay Substantial Risk for: inability to function and rapid decompensation Time Spent With Patient Time: Total time managing care of this patient today ____ minutes.
[2023-12-29 20:00] VITALS: BP 118/70; PULSE 98; RESP 16; TEMP 36.4; O2SAT 99
[2023-12-29] MEDS: ARIPiprazole 15 MG TABLET PO (20:12)
[2023-12-30] VITALS (11 sets, daily range): BP systolic 93–125; BP diastolic 42–79; PULSE 81–116; RESP 16–20; TEMP 36.2–36.6; O2SAT 98–100
[2023-12-30] MEDS: LORazepam 1 MG TABLET PO ×4 (06:07→20:21)
--- NOTE | 2023-12-30 06:40 | HO.ANESPROP2 ---
[facility] Active Problems Active Problems: All Active Problems Catatonia (Acute) Auditory hallucination (Acute) Bipolar disorder in remission (Acute) Pre-op evaluation (Acute) Supraventricular tachycardia (Acute) Schizoaffective disorder (Acute) Intellectual disability (Acute) Major depressive disorder, recurrent episode, severe, with psychosis (Chronic) Contraception management (Acute) Vitamin D deficiency (Acute) Vitamin B12 deficiency (Acute) Uses control (Acute) Supraventricular tachycardia by ECG (Acute) Migraine (Acute) Past Medical History Medical History Bipolar disorder in remission Supraventricular tachycardia Schizoaffective disorder Intellectual disability Contraception management Vitamin D deficiency Vitamin B12 deficiency Uses control Hx of ovarian cyst Epigastric abdominal pain Orthostatic hypotension Supraventricular tachycardia by ECG Left ovarian cyst Migraine Family History Family History Mother Bipolar disorder Mental health disorder Family history of problems with anesthesia: No Surgical History Surgical History H/O removal of cyst History of Problems with Anesthesia: No Social History Social History Household Members: Family Household Members Other:: Pt unable to answer questions d/t mental status. Housing: House Housing Other:: at home with mother Are you a primary child day care teacher to a significant other at home: No Alcohol intake: never Comment: 1:1 sitter Patient Tobacco Use Status: Never used Tobacco e-Cigarette/Vaping Use: Never Used Second Hand Smoke Exposure: No Substance Use Type: Unknown Advance Directives Date on File: 12/10/23 service: No Current occupational status: unemployed Sexual orientation: Straight/Heterosexual Gender identity: Female Cognitive needs: No Hearing needs: No Vision needs: No Meds Allergies Allergy/AdvReac Type Severity Reaction Status Date / Time haloperidol AdvReac EPS Verified 12/15/23 19:33 metoprolol AdvReac Diarrhea Verified 12/15/23 19:33 Active Medications: Current Medications Acetaminophen (Acetaminophen 325 Mg Tablet) 650 mg PO Q6H PRN PRN Reason: Headache/Pain Mild Scale (1-3) Last Admin: 12/29/23 16:55 Dose: 650 mg Al Hydroxide/Mg Hydroxide (Magnesium Hydrox/Alum Hydrox 30 Ml Oral.Susp) 30 ml PO Q6H PRN PRN Reason: Heartburn/Nausea Aripiprazole (Aripiprazole 15 Mg Tablet) 15 mg PO BEDTIME [facility] Last Admin: 12/29/23 20:12 Dose: 15 mg Clonidine HCl (Clonidine Hcl 0.1 Mg Tablet) 0.1 mg PO Q4H PRN; Protocol PRN Reason: mild anxiety (try 1st) Last Admin: 12/19/23 20:17 Dose: 0.1 mg Hydroxyzine HCl (Hydroxyzine Hcl 25 Mg Tablet) 25 mg PO Q6H PRN PRN Reason: Anxiety Lactated Ringer's (Lr) 1,000 mls @ 50 mls/hr IVCONT .Q20H [facility] Lorazepam (Lorazepam 1 Mg Tablet) 1 mg PO TID [facility] Last Admin: 12/29/23 20:13 Dose: 1 mg Lorazepam (Lorazepam 1 Mg Tablet) 1 mg PO MOWEFR [facility] Last Admin: 12/30/23 06:07 Dose: 1 mg Magnesium Hydroxide (Milk Of Magnesia 30 Ml Oral.Susp) 30 ml PO DAILY PRN PRN Reason: Constipation Last Admin: 12/28/23 13:26 Dose: 30 ml Ondansetron HCl (Ondansetron Odt 4 Mg Tab.Rapdis) 4 mg TRANSLINGU Q6H PRN PRN Reason: Nausea And Vomiting Last Admin: 12/16/23 01:05 Dose: 4 mg Trazodone HCl (Trazodone Hcl 50 Mg Tablet) 50 mg PO BEDTIME MRX1 PRN PRN Reason: Insomnia Last Admin: 12/18/23 00:14 Dose: 50 mg Exam Height,Weight and Vital Signs: Height 5 ft Weight 65.3 kg Last Vital Signs Temp 97.2 F 12/30/23 06:26 Pulse 98 12/30/23 06:26 Resp 16 12/30/23 06:26 BP 108/68 12/30/23 06:26 Pulse Ox 100 12/30/23 06:26 O2 Del Method Room Air 12/30/23 06:26 O2 Flow Rate 2 12/27/23 08:14 Pertinent Lab Results Pertinent Lab Results: Laboratory Tests 12/16/23 12/23/23 12/28/23 11:42 08:42 11:30 WBC 5.5 RBC 4.26 Hgb 11.6 L Hct 35.5 L MCV 83.3 MCH 27.2 MCHC 32.7 RDW 15.8 Plt Count 363 MPV 9.8 Immature Gran % (Auto) 0.5 H Neut % (Auto) 63.1 Lymph % (Auto) 24.2 [place] % (Auto) 9.9 Eos % (Auto) 1.8 Baso % (Auto) 0.5 Lymph # (Auto) 1.3 [place] # (Auto) 0.6 Eos # (Auto) 0.1 Baso # (Auto) 0.0 Abs Immat Gran (auto) 0.03 Absolute Neuts (auto) 3.5 Absolute Nucleated RBC 0.000 Nucleated RBC % (auto) 0.0 Sodium 141 Potassium 3.4 Chloride 104 Carbon Dioxide 26 Anion Gap 14 BUN 4 L Creatinine 0.64 Estim Creat Clear Calc 117.8 Estimated GFR > 60 Fasting Glucose 101 H Calcium 9.8 Total Bilirubin 0.5 AST 18 ALT 15 Alkaline Phosphatase 70 Total Protein 6.8 Albumin 3.9 Urine Color Yellow Urine Appearance Cloudy Urine pH 7.0 Ur Specific [place] 1.010 Urine Protein Negative Urine Glucose (UA) Negative Urine Ketones Negative Urine Blood Negative Urine Nitrite Positive H Ur Leukocyte Esterase Trace H Urine RBC 0-2 Urine WBC 0-5 Ur Squamous Epith Cells 6-10 Urine Bacteria 4+ Hyaline Casts 0-2 Urine Test NEGATIVE NEGATIVE Urine Opiates Screen Not Detected Ur Buprenorphine Scrn Not Detected Ur Oxycodone Screen Not Detected Urine Methadone Screen Not Detected Urine Fentanyl Screen Not Detected Ur Barbiturates Screen Not Detected Ur Phencyclidine Scrn Not Detected Ur Amphetamines Screen Not Detected U Benzodiazepines Scrn Not Detected Urine Cocaine Screen Not Detected U Marijuana (THC) Screen Not Detected Airway Mallampati Class: II TM Dist: >3cm Neck ROM: Full Heart: rrr Lungs: cta Assessment and Plan Assessment Anesthesia Assessment: Anesthesia Plan Discussed and Chart Reviewed Final Anesthetic Review Family History of Problems with Anesthesia: No History of Problems with Anesthesia: No NPO: Yes ASA Class: III Final Preanesthetic Review: No Changes in Pt Med Stat, Meds/Allgs Chart Reviewed and Consent Obtained/Reviewed Patient Risk: Intermediate Procedure Risk: Intermediate Anesthetic Plan Anesthetic Plan: GA Disposition: Standard PACU
--- NOTE | 2023-12-30 07:03 | MHC.SHP ---
Pre-Procedural Eval Section A - 24 Hr Update-Section A only Date of Service: 12/30/23 The patient is an INPATIENT: Yes Changes since office visit: No Cold of Flu in the past 2 weeks, No New Medical Problems, No Changes in Medication and No Patient answered all questions The patient has been examined within 24 hours of the surgical procedure. The History & Physical has been completed within 30 days and I have reviewed it.: Yes Section B - Complete if H&P > 30 days Chief Complaint: Psychosis Allergies: Allergies Allergy/AdvReac Type Severity Reaction Status Date / Time haloperidol AdvReac EPS Verified 12/15/23 19:33 metoprolol AdvReac Diarrhea Verified 12/15/23 19:33 Plan I have reviewed the history and physical and performed a pertinent physical examination on my patient. No changes have occurred unless specified. Time Spent With Patient Time: Total time managing care of this patient today ____ minutes.
--- NOTE | 2023-12-30 07:19 | HO.ECTPROC ---
ECT Procedure Note Diagnosis/Treatment Date of Service: 12/30/23 Diagnosis: Catatonia and Schizoaffective Disorder Previous ECT Date: 12/27/23 Current Treatment Number: 4 Treatment: Series Interval Clinical Notes: The patient remains with blunted affect, internally preouccupied but able to answer simple questions. Unable to disclose if she had side effects with the previous ECT. Today, we did bilateral but lowered to 50%. She had a lng seizure with episodes of peak and valleys that were resolving and coming abain, at least 4 waves, status like so we stopped the seizure after 120s with Ativan 1 mg IVP. Woke up well. Most likely, we will need to lower the stimuli to 40% Time: Total time managing care of this patient today ____ minutes. ECT Settings Device: THYMATRON DGx Electrode Placement: Bitemporal Program/Pulse Width: 0.25 Energy Percent: 50 Seizure Duration By EEG (in seconds): 180 By Motor Observation (in seconds): 0 Medications Administration General Anesthetic: Etomidate (14) Muscle Relaxant: Succinylcholine (80) Ancillary Medications Analgesics: Torodol - Pre ECT Anti-emetics: Zofran - Pre ECT Miscillaneous Medications: Other (Ativan 1mg IVP to terminate the seizure) Airway Management Airway Management: Bag Mask Ventilation Treatment Recommendations Electrode Placement: Bitemporal Program/Pulse Width: 0.25 Energy Percent: 40 Notes: Lower the stimuli to 40 or 30% Pt Tolerated Procedure w/o Issue: Yes
[2023-12-30] MEDS: LORazepam 2 MG/ML VIAL 1 MG IVPUSH (07:27)
--- NOTE | 2023-12-30 09:18 | P.PNPSI_ITS ---
Subjective Subjective Date of Service: 12/30/23 Reason For Visit: Psychosis Interim History: Met with patient; discussed with team Patient did receive ECT today. She is also more organized in speech behavior. Still with significant thought blocking/delayed response and walking quite slowly, stumbling a little however patient denies AVH and paranoid delusions and seemed to recognize video games storywriter on approach, waving; she does not remember anything from the past weeks and was surprised to hear that she had a return of her manic/psychotic episode. However she was grateful to hear that ECT is helping. She asked how much will it help? and video games storywriter provided education. Mental Status Exam Mental Status Exam Narrative: Pt is alert and oriented; behavior is more organized; still moving slowly but no longer aimlessly; cooperative, friendly and calm; patient is not in distress; dressed in casual attire with unkempt, but adequate hygiene; mood is described as okay and affect still blunted but less so; eye contact minimal; Speech is slowed and soft but now spontaneous; continue psychomotor retardation present; thought process goal directed and more organized; Thought content is on tx; does not remember much of anything from past several weeks or that she had delusional thinking; otherwise pertinent to relevant topics; today no delusional content expressed; denies any SI/HI. Still thought blocking and seems internally preoccupied but denies AH today. Patients insight and judgment impaired but improving Diagnostics Vital Signs (24Hr): Vital Signs - 24 hr 12/29/23 20:00 12/30/23 05:57 12/30/23 06:26 Temperature 97.5 F 97.4 F 97.2 F Pulse Rate 98 95 98 Respiratory Rate 16 16 16 Blood Pressure 118/70 114/61 108/68 Pulse Oximetry 99 98 100 Oxygen Delivery Method Room Air Room Air Oxygen Flow Rate 12/30/23 07:25 12/30/23 07:30 12/30/23 07:35 Temperature 98 F Pulse Rate 87 84 86 Respiratory Rate 20 17 17 Blood Pressure 116/73 102/55 L 107/43 L Pulse Oximetry 99 99 99 Oxygen Delivery Method Nasal Cannula with ETCO2 Nasal Cannula with ETCO2 Nasal Cannula with ETCO2 Oxygen Flow Rate 2 2 2 12/30/23 07:40 12/30/23 07:55 12/30/23 08:10 Temperature Pulse Rate 84 81 89 Respiratory Rate 16 17 17 Blood Pressure 93/42 L 114/60 97/57 L Pulse Oximetry 100 99 100 Oxygen Delivery Method Nasal Cannula with ETCO2 Room Air Room Air Oxygen Flow Rate 2 12/30/23 08:25 12/30/23 08:47 Temperature 98 F 97.3 F Pulse Rate 98 82 Respiratory Rate 16 16 Blood Pressure 112/64 112/76 Pulse Oximetry 98 100 Oxygen Delivery Method Room Air Room Air Oxygen Flow Rate BMI result Body Mass Index 28.1 Labs 12/23/23 08:42 12/23/23 08:42 Labs: Laboratory Results - last 48 hr 12/28/23 11:30 Urine Test NEGATIVE Imaging Radiology Impressions: ITS Impressions Lumbar Spine X-Ray 12/28/23 21:40 IMPRESSION: No acute fracture of the lumbar spine or sacrum. Sacrum and Coccyx X-Ray 12/28/23 21:40 IMPRESSION: No acute fracture of the lumbar spine or sacrum. Medications Medications Current Medications Acetaminophen (Acetaminophen 325 Mg Tablet) 650 mg PO Q6H PRN PRN Reason: Headache/Pain Mild Scale (1-3) Last Admin: 12/29/23 16:55 Dose: 650 mg Al Hydroxide/Mg Hydroxide (Magnesium Hydrox/Alum Hydrox 30 Ml Oral.Susp) 30 ml PO Q6H PRN PRN Reason: Heartburn/Nausea Aripiprazole (Aripiprazole 15 Mg Tablet) 15 mg PO BEDTIME [facility] Last Admin: 12/29/23 20:12 Dose: 15 mg Clonidine HCl (Clonidine Hcl 0.1 Mg Tablet) 0.1 mg PO Q4H PRN; Protocol PRN Reason: mild anxiety (try 1st) Last Admin: 12/19/23 20:17 Dose: 0.1 mg Hydroxyzine HCl (Hydroxyzine Hcl 25 Mg Tablet) 25 mg PO Q6H PRN PRN Reason: Anxiety Lorazepam (Lorazepam 1 Mg Tablet) 1 mg PO TID [facility] Last Admin: 12/29/23 20:13 Dose: 1 mg Lorazepam (Lorazepam 1 Mg Tablet) 1 mg PO MOWEFR [facility] Last Admin: 12/30/23 06:07 Dose: 1 mg Magnesium Hydroxide (Milk Of Magnesia 30 Ml Oral.Susp) 30 ml PO DAILY PRN PRN Reason: Constipation Last Admin: 12/28/23 13:26 Dose: 30 ml Ondansetron HCl (Ondansetron Odt 4 Mg Tab.Rapdis) 4 mg TRANSLINGU Q6H PRN PRN Reason: Nausea And Vomiting Last Admin: 12/16/23 01:05 Dose: 4 mg Trazodone HCl (Trazodone Hcl 50 Mg Tablet) 50 mg PO BEDTIME MRX1 PRN PRN Reason: Insomnia Last Admin: 12/18/23 00:14 Dose: 50 mg Allergies Allergies Allergy/AdvReac Type Severity Reaction Status Date / Time haloperidol AdvReac EPS Verified 12/15/23 19:33 metoprolol AdvReac Diarrhea Verified 12/15/23 19:33 Assessment & Plan Assessment & Plan (1) Schizoaffective disorder: Status: Acute Code(s): F25.9 - Schizoaffective disorder, unspecified Assessment and Plan: ongoing disorganinzation believes she is or giving (not sure she understands what my water broke means) (2) Catatonia: Status: Acute Code(s): F06.1 - Catatonic disorder due to known physiological condition Plan Patient is a 23 year old female with hx of schizoaffective d/o who was recently discharged from on 12/04/23 who presented to ER d/t suicidal ideation secondary to worsening depression and auditory hallucinations instructing her to harm herself. Formulation/clinical reasoning: Patient soon returns to the unit, with return of psychotic delirium and catatonic symptoms which fully resolved during last admission a few weeks ago once she got ECT. Accepted ECT on 12/17 however refused it on 12/19. Will continue to schedule ECT MWF as patient does continue to have moments where she is intermittently lucid enough and wants ECT to make auditory hallucinations to go away. Patient was also getting ECT as an outpatient until very recently. Healthcare proxy invoked; pending affirmation Hospital course: 12/17: pt had ECT this morning. Continue current tx plan. 12/18 restarted lorazepam for catatonic like sx periods agitation more active today pt very disorganized 12/19 completely disorganized; refused ECT today; refusing meds Patient having difficulty integrating information at this time healthcare proxy was invoked and informed consent for ECT was obtained from the patient's mother who is healthcare proxy; anesthesia also obtained informed consent the patient was agreeable to admission and is agreeing to ECT 12/21/23: No changes. Continue to encourage ECT, next scheduled on Saturday12/23/202312/21: No changes. Continue to encourage 12/22 pt remains psychotic, disorganized in speech and behavior and w/ catatonic symptoms. She consented to ECT which she received. 12/23 Yesterday later on patient did eat meal with her mother; later in the evening patient started talking more freely and asked why she was in the hospital and what was her diagnosis. Today patient is talking more. She remains disorganized in speech and behavior and initially asked video games storywriter if she is in trouble, which she has been asking peers and staff, under the delusion that she has committed some crime. She seems to understand that ECT has been helpful and will reduce auditory hallucinations. Patient later continued to come to video games storywriter and ask if she was or tell video games storywriter that she is , not accepting negative lab results 12/24 no change in presentation; will continue to offer ECT; last time, this was the essential treatment and very likely remains so Later on in the day, patient asked multiple staff if she could talk to this video games storywriter. She said you're Dr. Smith, right? and said she remembers working w/ video games storywriter at last admission. She remembers that she got ECT and that it helped take away the auditory hallucinations. She then asked if she can get it now but accepted that she'll have to wait till Sat for treatment to which she said ok. 12/25 remains disorganized and with paranoid delusions and AH. However she is talking more, eating a little and drinking more, and has some improved insight, remembering and wanting ECT. Today, patient came up to video games storywriter and apologized; she reported auditory hallucinations are telling her she was born by mistake... She again discussed ECT remembered that it helped with auditory hallucinations; she explained that she is hearing voices and asked what day she can get ECT again; she understood next treatment will be tomorrow morning to which she said okay. 12/26 patient had ECT today; patient talking more and though still disorganized, less so; wanted to take a shower; later on said she was continue with ECT since it helps with voices. Still struggling with paranoid delusions but redirectable. Taking Ativan and Abilify. 12/28/23 CTP - check uhg 12/29/23- [place] [facility]- nursing looking into bcp from prior admit 12/29 Patient did receive ECT today. She is also more organized in speech behavior. Still with significant thought blocking/delayed response and walking quite slowly, stumbling a little however patient denies AVH and paranoid delusions; she does not remember anything from the past weeks and was surprised to hear that she had a return of her manic/psychotic episode. However she was grateful to hear that ECT is helping. She asked how much will it help? and video games storywriter provided education. -discussed case with Dr. Ackerman regarding ECT and who suggests lowering energy% to 30% or 40% given continue long seizure -although patient is doing better today, even yesterday she still had paranoid delusions and AH; her clarity waxes and wanes and she is prone to regression. Patient will very likely need numerous more ECT treatments to regain stability. Will continue to proceed with healthcare proxy affirmation as patient judgment/insight is fragile and improvement ephemerall Plan: HCP invoked; pending affirmation CV Continue ECT MWF: Patient improving from ECT in the past and would ask for it since it would help decrease and then eliminate auditory hallucinations; patient may very well again consent Continue Abilify 15 mg q.h.s. Continue Ativan to 1 mg t.i.d. given catatonic symptoms Ativan 1 mg prior to ECT; will continue given that patient is having prolonged seizures even with Ativan Patient educated on: diagnosis, medication risk/benefits and ECT Informed Consent: understands, does not understand and further education needed Reason for continued inpatient stay Substantial Risk for: inability to function Time Spent With Patient Time: Total time managing care of this patient today ____ minutes.
[2023-12-30] MEDS: Ondansetron ODT 4 MG TAB.RAPDIS TRANSLINGU (14:24)
[2023-12-30] MEDS: ARIPiprazole 15 MG TABLET PO (20:20)
[2023-12-31 08:00] VITALS: BP 100/52; PULSE 86; RESP 16; TEMP 36.1; O2SAT 98
[2023-12-31] MEDS: LORazepam 1 MG TABLET PO ×3 (08:17→21:37)
--- NOTE | 2023-12-31 09:40 | HO.PSYCHPN ---
Subjective Subjective Date of Service: 12/31/23 Reason For Visit: Psychosis Interim History: Met with patient; discussed with team Resurgence of psychotic symptoms and patient endorses auditory hallucinations and expressing delusional thinking, saying she scared on the unit but unable to say why. Patient off balance, wandering aimlessly. Patient will ask a question and then forget she asked and repeat it. Patient initially said she wanted to go home but then said she would stay for continued ECT. Mental Status Exam Mental Status Exam Narrative: Pt is alert and oriented; behavior return to disorganized behavior and speech; still much wandering aimlessly; talking more and with more clarity; patient is not in distress; dressed in hospital attire, disheveled; mood and affect blunted; eye contact limited; Speech quiet; psychomotor retardation present; thought process disorganized; Thought content is on disorganized, paranoid ideations; no expressions of SI/HI. Internally preoccupied, AH Patients insight and judgment impaired Diagnostics Vital Signs (24Hr): Vital Signs - 24 hr 12/30/23 20:00 12/31/23 08:00 Temperature 97.9 F 97 F Pulse Rate 116 H 86 Respiratory Rate 20 16 Blood Pressure 125/79 100/52 L Pulse Oximetry 100 98 Oxygen Delivery Method Room Air Room Air BMI result Body Mass Index 28.1 Labs 12/23/23 08:42 12/23/23 08:42 Imaging Radiology Impressions: ITS Impressions Lumbar Spine X-Ray 12/28/23 21:40 IMPRESSION: No acute fracture of the lumbar spine or sacrum. Sacrum and Coccyx X-Ray 12/28/23 21:40 IMPRESSION: No acute fracture of the lumbar spine or sacrum. Medications Medications Current Medications Acetaminophen (Acetaminophen 325 Mg Tablet) 650 mg PO Q6H PRN PRN Reason: Headache/Pain Mild Scale (1-3) Last Admin: 12/29/23 16:55 Dose: 650 mg Al Hydroxide/Mg Hydroxide (Magnesium Hydrox/Alum Hydrox 30 Ml Oral.Susp) 30 ml PO Q6H PRN PRN Reason: Heartburn/Nausea Aripiprazole (Aripiprazole 15 Mg Tablet) 15 mg PO BEDTIME [facility] Last Admin: 12/30/23 20:20 Dose: 15 mg Clonidine HCl (Clonidine Hcl 0.1 Mg Tablet) 0.1 mg PO Q4H PRN; Protocol PRN Reason: mild anxiety (try 1st) Last Admin: 12/19/23 20:17 Dose: 0.1 mg Hydroxyzine HCl (Hydroxyzine Hcl 25 Mg Tablet) 25 mg PO Q6H PRN PRN Reason: Anxiety Lorazepam (Lorazepam 1 Mg Tablet) 1 mg PO TID [facility] Last Admin: 12/31/23 08:17 Dose: 1 mg Lorazepam (Lorazepam 1 Mg Tablet) 1 mg PO MOWEFR [facility] Last Admin: 12/30/23 06:07 Dose: 1 mg Magnesium Hydroxide (Milk Of Magnesia 30 Ml Oral.Susp) 30 ml PO DAILY PRN PRN Reason: Constipation Last Admin: 12/28/23 13:26 Dose: 30 ml Ondansetron HCl (Ondansetron Odt 4 Mg Tab.Rapdis) 4 mg TRANSLINGU Q6H PRN PRN Reason: Nausea And Vomiting Last Admin: 12/30/23 14:24 Dose: 4 mg Trazodone HCl (Trazodone Hcl 50 Mg Tablet) 50 mg PO BEDTIME MRX1 PRN PRN Reason: Insomnia Last Admin: 12/18/23 00:14 Dose: 50 mg Allergies Allergies Allergy/AdvReac Type Severity Reaction Status Date / Time haloperidol AdvReac EPS Verified 12/15/23 19:33 metoprolol AdvReac Diarrhea Verified 12/15/23 19:33 Assessment & Plan Assessment & Plan (1) Schizoaffective disorder: Status: Acute Code(s): F25.9 - Schizoaffective disorder, unspecified Assessment and Plan: ongoing disorganinzation believes she is or giving (not sure she understands what my water broke means) (2) Catatonia: Status: Acute Code(s): F06.1 - Catatonic disorder due to known physiological condition Plan Patient is a 23 year old female with hx of schizoaffective d/o who was recently discharged from on 12/04/23 who presented to ER d/t suicidal ideation secondary to worsening depression and auditory hallucinations instructing her to harm herself. Formulation/clinical reasoning: Patient soon returns to the unit, with return of psychotic delirium and catatonic symptoms which fully resolved during last admission a few weeks ago once she got ECT. Accepted ECT on 12/17 however refused it on 12/19. Will continue to schedule ECT MWF as patient does continue to have moments where she is intermittently lucid enough and wants ECT to make auditory hallucinations to go away. Patient was also getting ECT as an outpatient until very recently. Healthcare proxy invoked; pending affirmation Hospital course: 12/17: pt had ECT this morning. Continue current tx plan. 12/18 restarted lorazepam for catatonic like sx periods agitation more active today pt very disorganized 12/19 completely disorganized; refused ECT today; refusing meds Patient having difficulty integrating information at this time healthcare proxy was invoked and informed consent for ECT was obtained from the patient's mother who is healthcare proxy; anesthesia also obtained informed consent the patient was agreeable to admission and is agreeing to ECT 12/21/23: No changes. Continue to encourage ECT, next scheduled on Saturday12/23/202312/21: No changes. Continue to encourage 12/22 pt remains psychotic, disorganized in speech and behavior and w/ catatonic symptoms. She consented to ECT which she received. 12/23 Yesterday later on patient did eat meal with her mother; later in the evening patient started talking more freely and asked why she was in the hospital and what was her diagnosis. Today patient is talking more. She remains disorganized in speech and behavior and initially asked administrative underwriter if she is in trouble, which she has been asking peers and staff, under the delusion that she has committed some crime. She seems to understand that ECT has been helpful and will reduce auditory hallucinations. Patient later continued to come to administrative underwriter and ask if she was or tell administrative underwriter that she is , not accepting negative lab results 12/24 no change in presentation; will continue to offer ECT; last time, this was the essential treatment and very likely remains so Later on in the day, patient asked multiple staff if she could talk to this administrative underwriter. She said you're Dr. Smith, right? and said she remembers working w/ administrative underwriter at last admission. She remembers that she got ECT and that it helped take away the auditory hallucinations. She then asked if she can get it now but accepted that she'll have to wait till Sat for treatment to which she said ok. 12/25 remains disorganized and with paranoid delusions and AH. However she is talking more, eating a little and drinking more, and has some improved insight, remembering and wanting ECT. Today, patient came up to administrative underwriter and apologized; she reported auditory hallucinations are telling her she was born by mistake... She again discussed ECT remembered that it helped with auditory hallucinations; she explained that she is hearing voices and asked what day she can get ECT again; she understood next treatment will be tomorrow morning to which she said okay. 12/26 patient had ECT today; patient talking more and though still disorganized, less so; wanted to take a shower; later on said she was continue with ECT since it helps with voices. Still struggling with paranoid delusions but redirectable. Taking Ativan and Abilify. 12/28/23 CTP - check uhcg 12/29/23- ECT tomorrow, [facility] negative again- nursing looking into bcp from prior admit 12/29 Patient did receive ECT today. She is also more organized in speech behavior. Still with significant thought blocking/delayed response and walking quite slowly, stumbling a little however patient denies AVH and paranoid delusions; she does not remember anything from the past weeks and was surprised to hear that she had a return of her manic/psychotic episode. However she was grateful to hear that ECT is helping. She asked how much will it help? and administrative underwriter provided education. -discussed case with Dr. Ackerman regarding ECT and who suggests lowering energy% to 30% or 40% given continue long seizure -although patient is doing better today, even yesterday she still had paranoid delusions and AH; her clarity waxes and wanes and she is prone to regression. Patient will very likely need numerous more ECT treatments to regain stability. Will continue to proceed with healthcare proxy affirmation as patient judgment/insight is fragile and improvement ephemeral 12/30 today patient returns to disorganized speech and behavior, AH and paranoid delusions; continues with catatonic symptoms -continue with ECT Plan: HCP invoked; pending affirmation CV Continue ECT MWF: Patient improving from ECT in the past and would ask for it since it would help decrease and then eliminate auditory hallucinations; patient may very well again consent Continue Abilify 15 mg q.h.s. Continue Ativan to 1 mg t.i.d. given catatonic symptoms Ativan 1 mg prior to ECT; will continue given that patient is having prolonged seizures even with Ativan Patient educated on: diagnosis, medication risk/benefits and ECT Informed Consent: understands and does not understand Reason for continued inpatient stay Substantial Risk for: inability to function Time Spent With Patient Time: Total time managing care of this patient today ____ minutes.
[2023-12-31] MEDS: Acetaminophen 325 MG TABLET 650 MG PO (18:19)
[2023-12-31 19:27] VITALS: BP 124/66
[2023-12-31] MEDS: cloNIDine HCL 0.1 MG TABLET PO (19:27)
[2023-12-31 20:00] VITALS: BP 129/70; PULSE 122; RESP 15; TEMP 36.8; O2SAT 100
[2023-12-31] MEDS: ARIPiprazole 15 MG TABLET PO (21:37)
[2024-01-01 06:00] VITALS: O2SAT 96
--- NOTE | 2024-01-01 06:22 | PC.NURSE ---
Charge nurse Antelmo Wu called down to PACU and was informed that this patient did NOT have ECT scheduled for this morning. This commercial lines underwriter then held pre-procedure medication.
[2024-01-01 07:30] VITALS: BP 99/58; PULSE 91; RESP 15; TEMP 36.7; O2SAT 99
--- NOTE | 2024-01-01 08:35 | HO.PSYCHPN ---
Subjective Subjective Date of Service: 01/01/24 Reason For Visit: Psychosis Interim History: Met with patient; discussed with team did not get ECT due to scheduling error. Still AH and reports some passive SI, but no delusional thinking expressed. Discussed ECT and pt again says she hopes to get out of here but agrees to remain for ECT. Pt's mother visiting and discussed case w/ technical document writer; she agrees w/ pt remaining on unit for ECT. Mental Status Exam Mental Status Exam Narrative: Pt is alert and oriented; behavior little more organized; still some aimless wandering but less; talking more and with more clarity; patient is not in distress; dressed in casual attire, unkempt; mood and affect blunted; eye contact improving; Speech quiet; psychomotor retardation present; thought process more goal oriented; Thought content is on treatment, AH; reports passive SI; no HI; Internally preoccupied, thought blocking and AH Patients insight and judgment impaired with intermittent improvements. Diagnostics Vital Signs (24Hr): Vital Signs - 24 hr 12/31/23 19:27 12/31/23 20:00 01/01/24 06:00 Temperature 98.3 F Pulse Rate 122 H Respiratory Rate 15 Blood Pressure 124/66 129/70 Pulse Oximetry 100 96 Oxygen Delivery Method Room Air Room Air BMI result Body Mass Index 28.1 Labs 12/23/23 08:42 12/23/23 08:42 Imaging Radiology Impressions: ITS Impressions Lumbar Spine X-Ray 12/28/23 21:40 IMPRESSION: No acute fracture of the lumbar spine or sacrum. Sacrum and Coccyx X-Ray 12/28/23 21:40 IMPRESSION: No acute fracture of the lumbar spine or sacrum. Medications Medications Current Medications Acetaminophen (Acetaminophen 325 Mg Tablet) 650 mg PO Q6H PRN PRN Reason: Headache/Pain Mild Scale (1-3) Last Admin: 12/31/23 18:19 Dose: 650 mg Al Hydroxide/Mg Hydroxide (Magnesium Hydrox/Alum Hydrox 30 Ml Oral.Susp) 30 ml PO Q6H PRN PRN Reason: Heartburn/Nausea Aripiprazole (Aripiprazole 15 Mg Tablet) 15 mg PO BEDTIME KRISTI Last Admin: 12/31/23 21:37 Dose: 15 mg Clonidine HCl (Clonidine Hcl 0.1 Mg Tablet) 0.1 mg PO Q4H PRN; Protocol PRN Reason: mild anxiety (try 1st) Last Admin: 12/31/23 19:27 Dose: 0.1 mg Hydroxyzine HCl (Hydroxyzine Hcl 25 Mg Tablet) 25 mg PO Q6H PRN PRN Reason: Anxiety Lorazepam (Lorazepam 1 Mg Tablet) 1 mg PO TID [facility] Last Admin: 12/31/23 21:37 Dose: 1 mg Lorazepam (Lorazepam 1 Mg Tablet) 1 mg PO MOWEFR [facility] Last Admin: 01/01/24 06:14 Dose: Not Given Magnesium Hydroxide (Milk Of Magnesia 30 Ml Oral.Susp) 30 ml PO DAILY PRN PRN Reason: Constipation Last Admin: 12/28/23 13:26 Dose: 30 ml Ondansetron HCl (Ondansetron Odt 4 Mg Tab.Rapdis) 4 mg TRANSLINGU Q6H PRN PRN Reason: Nausea And Vomiting Last Admin: 12/30/23 14:24 Dose: 4 mg Trazodone HCl (Trazodone Hcl 50 Mg Tablet) 50 mg PO BEDTIME MRX1 PRN PRN Reason: Insomnia Last Admin: 12/18/23 00:14 Dose: 50 mg Allergies Allergies Allergy/AdvReac Type Severity Reaction Status Date / Time haloperidol AdvReac EPS Verified 12/15/23 19:33 metoprolol AdvReac Diarrhea Verified 12/15/23 19:33 Assessment & Plan Assessment & Plan (1) Schizoaffective disorder: Status: Acute Code(s): F25.9 - Schizoaffective disorder, unspecified Assessment and Plan: ongoing disorganinzation believes she is or giving (not sure she understands what my water broke means) (2) Catatonia: Status: Acute Code(s): F06.1 - Catatonic disorder due to known physiological condition Plan Patient is a 23 year old female with hx of schizoaffective d/o who was recently discharged from on 12/04/23 who presented to ER d/t suicidal ideation secondary to worsening depression and auditory hallucinations instructing her to harm herself. Formulation/clinical reasoning: Patient soon returns to the unit, with return of psychotic delirium and catatonic symptoms which fully resolved during last admission a few weeks ago once she got ECT. Accepted ECT on 12/17 however refused it on 12/19. Will continue to schedule ECT MWF as patient does continue to have moments where she is intermittently lucid enough and wants ECT to make auditory hallucinations to go away. Patient was also getting ECT as an outpatient until very recently. Healthcare proxy invoked; pending affirmation Hospital course: 12/17: pt had ECT this morning. Continue current tx plan. 12/18 restarted lorazepam for catatonic like sx periods agitation more active today pt very disorganized 12/19 completely disorganized; refused ECT today; refusing meds Patient having difficulty integrating information at this time healthcare proxy was invoked and informed consent for ECT was obtained from the patient's mother who is healthcare proxy; anesthesia also obtained informed consent the patient was agreeable to admission and is agreeing to ECT 12/21/23: No changes. Continue to encourage ECT, next scheduled on Saturday12/23/202312/21: No changes. Continue to encourage 12/22 pt remains psychotic, disorganized in speech and behavior and w/ catatonic symptoms. She consented to ECT which she received. 12/23 Yesterday later on patient did eat meal with her mother; later in the evening patient started talking more freely and asked why she was in the hospital and what was her diagnosis. Today patient is talking more. She remains disorganized in speech and behavior and initially asked technical document writer if she is in trouble, which she has been asking peers and staff, under the delusion that she has committed some crime. She seems to understand that ECT has been helpful and will reduce auditory hallucinations. Patient later continued to come to technical document writer and ask if she was or tell technical document writer that she is , not accepting negative lab results 12/24 no change in presentation; will continue to offer ECT; last time, this was the essential treatment and very likely remains so Later on in the day, patient asked multiple staff if she could talk to this technical document writer. She said you're Dr. Smith, right? and said she remembers working w/ technical document writer at last admission. She remembers that she got ECT and that it helped take away the auditory hallucinations. She then asked if she can get it now but accepted that she'll have to wait till Sat for treatment to which she said ok. 12/25 remains disorganized and with paranoid delusions and AH. However she is talking more, eating a little and drinking more, and has some improved insight, remembering and wanting ECT. Today, patient came up to technical document writer and apologized; she reported auditory hallucinations are telling her she was born by mistake... She again discussed ECT remembered that it helped with auditory hallucinations; she explained that she is hearing voices and asked what day she can get ECT again; she understood next treatment will be tomorrow morning to which she said okay. 12/26 patient had ECT today; patient talking more and though still disorganized, less so; wanted to take a shower; later on said she was continue with ECT since it helps with voices. Still struggling with paranoid delusions but redirectable. Taking Ativan and Abilify. 12/28/23 CTP - check uhcg 12/29/23- ECT tomorrow, cg negative again- nursing looking into bcp from prior admit 12/29 Patient did receive ECT today. She is also more organized in speech behavior. Still with significant thought blocking/delayed response and walking quite slowly, stumbling a little however patient denies AVH and paranoid delusions; she does not remember anything from the past weeks and was surprised to hear that she had a return of her manic/psychotic episode. However she was grateful to hear that ECT is helping. She asked how much will it help? and technical document writer provided education. -discussed case with Dr. Ackerman regarding ECT and who suggests lowering energy% to 30% or 40% given continue long seizure -although patient is doing better today, even yesterday she still had paranoid delusions and AH; her clarity waxes and wanes and she is prone to regression. Patient will very likely need numerous more ECT treatments to regain stability. Will continue to proceed with healthcare proxy affirmation as patient judgment/insight is fragile and improvement ephemeral 12/30 today patient returns to disorganized speech and behavior, AH and paranoid delusions; continues with catatonic symptoms -continue with ECT 12/31 remains with AH and some passive SI, but a little more organized today; agrees to remain for ECT -wondering about whether to continue Abilify as not sure it helps much -continue Ativan for Catatonic symptoms Plan: HCP invoked; pending affirmation CV Continue ECT MWF: Patient improving from ECT in the past and would ask for it since it would help decrease and then eliminate auditory hallucinations; patient may very well again consent Continue Abilify 15 mg q.h.s. Continue Ativan to 1 mg t.i.d. given catatonic symptoms Ativan 1 mg prior to ECT; will continue given that patient is having prolonged seizures even with Ativan Patient educated on: diagnosis, medication risk/benefits and ECT Informed Consent: understands, does not understand and further education needed Reason for continued inpatient stay Substantial Risk for: inability to function Time Spent With Patient Time: Total time managing care of this patient today ____ minutes.
[2024-01-01] MEDS: LORazepam 1 MG TABLET PO ×3 (09:00→20:33)
[2024-01-01] MEDS: Acetaminophen 325 MG TABLET 650 MG PO ×2 (09:40→20:33)
[2024-01-01] MEDS: Ondansetron ODT 4 MG TAB.RAPDIS TRANSLINGU (09:56)
[2024-01-01 20:00] VITALS: BP 127/60; PULSE 115; RESP 18; TEMP 36.6; O2SAT 96
[2024-01-01] MEDS: ARIPiprazole 15 MG TABLET PO (20:33)
[2024-01-02 07:00] VITALS: BMI 29.0
[2024-01-02 08:00] VITALS: BP 126/62; PULSE 115; RESP 18; O2SAT 99
[2024-01-02] MEDS: hydrOXYzine HCL 25 MG TABLET PO ×2 (08:30→18:18)
[2024-01-02] MEDS: LORazepam 1 MG TABLET PO ×3 (08:30→20:15)
--- NOTE | 2024-01-02 17:02 | HO.PSYCHPN ---
Subjective Subjective Date of Service: 01/02/24 Reason For Visit: Psychosis Interim History: Met with patient; discussed with team Patient talking much more clearly and vocally out loud in the milieu addressed parts data writer by marcial and asked to talk. She wanted to know about when she could go home; discussed her symptoms and she denies AH or any delusional thinking; she says she does not remember any of it however, her disorganization, paranoid delusions... She agrees to remain on the unit for continued ECT as it was discontinued too early last admission with return of symptoms. Mental Status Exam Mental Status Exam Narrative: Pt is alert and oriented; behavior is much more organized, cooperative, friendly and calm; patient is not in distress; dressed in casual attire with adequate hygiene; mood is described as good affect congruent is still somewhat blunted but less so and more expressive; eye contact improved; Speech is still with some latency and a little slow, but improved volume and prosody; some psychomotor retardation present and patient is still little off balance; thought process is goal directed and organized; Thought content is on tx; otherwise pertinent to relevant topics and without any delusional content, paranoid ideations or grandiosity; denies any SI/HI. Denies any AH. Patients insight and judgment impaired though much improved Diagnostics Vital Signs (24Hr): Vital Signs - 24 hr 01/01/24 20:00 01/02/24 08:00 Temperature 98 F Pulse Rate 115 H 115 H Respiratory Rate 18 18 Blood Pressure 127/60 126/62 Pulse Oximetry 96 99 Oxygen Delivery Method Room Air Room Air BMI result Body Mass Index 29.0 Labs 12/23/23 08:42 12/23/23 08:42 Imaging Radiology Impressions: ITS Impressions Lumbar Spine X-Ray 12/28/23 21:40 IMPRESSION: No acute fracture of the lumbar spine or sacrum. Sacrum and Coccyx X-Ray 12/28/23 21:40 IMPRESSION: No acute fracture of the lumbar spine or sacrum. Medications Medications Current Medications Acetaminophen (Acetaminophen 325 Mg Tablet) 650 mg PO Q6H PRN PRN Reason: Headache/Pain Mild Scale (1-3) Last Admin: 01/01/24 20:33 Dose: 650 mg Al Hydroxide/Mg Hydroxide (Magnesium Hydrox/Alum Hydrox 30 Ml Oral.Susp) 30 ml PO Q6H PRN PRN Reason: Heartburn/Nausea Aripiprazole (Aripiprazole 15 Mg Tablet) 15 mg PO BEDTIME [facility] Last Admin: 01/01/24 20:33 Dose: 15 mg Clonidine HCl (Clonidine Hcl 0.1 Mg Tablet) 0.1 mg PO Q4H PRN; Protocol PRN Reason: mild anxiety (try 1st) Last Admin: 12/31/23 19:27 Dose: 0.1 mg Hydroxyzine HCl (Hydroxyzine Hcl 25 Mg Tablet) 25 mg PO Q6H PRN PRN Reason: Anxiety Last Admin: 01/02/24 08:30 Dose: 25 mg Lorazepam (Lorazepam 1 Mg Tablet) 1 mg PO TID KRISTI Last Admin: 01/02/24 14:32 Dose: 1 mg Lorazepam (Lorazepam 1 Mg Tablet) 1 mg PO MOWEFR [facility] Last Admin: 01/01/24 06:14 Dose: Not Given Magnesium Hydroxide (Milk Of Magnesia 30 Ml Oral.Susp) 30 ml PO DAILY PRN PRN Reason: Constipation Last Admin: 12/28/23 13:26 Dose: 30 ml Ondansetron HCl (Ondansetron Odt 4 Mg Tab.Rapdis) 4 mg TRANSLINGU Q6H PRN PRN Reason: Nausea And Vomiting Last Admin: 01/01/24 09:56 Dose: 4 mg Trazodone HCl (Trazodone Hcl 50 Mg Tablet) 50 mg PO BEDTIME MRX1 PRN PRN Reason: Insomnia Last Admin: 12/18/23 00:14 Dose: 50 mg Allergies Allergies Allergy/AdvReac Type Severity Reaction Status Date / Time haloperidol AdvReac EPS Verified 12/15/23 19:33 metoprolol AdvReac Diarrhea Verified 12/15/23 19:33 Assessment & Plan Assessment & Plan (1) Schizoaffective disorder: Status: Acute Code(s): F25.9 - Schizoaffective disorder, unspecified Assessment and Plan: ongoing disorganinzation believes she is or giving (not sure she understands what my water broke means) (2) Catatonia: Status: Acute Code(s): F06.1 - Catatonic disorder due to known physiological condition Plan Patient is a 23 year old female with hx of schizoaffective d/o who was recently discharged from on 12/04/23 who presented to ER d/t suicidal ideation secondary to worsening depression and auditory hallucinations instructing her to harm herself. Formulation/clinical reasoning: Patient soon returns to the unit, with return of psychotic delirium and catatonic symptoms which fully resolved during last admission a few weeks ago once she got ECT. Accepted ECT on 12/17 however refused it on 12/19. Will continue to schedule ECT MWF as patient does continue to have moments where she is intermittently lucid enough and wants ECT to make auditory hallucinations to go away. Patient was also getting ECT as an outpatient until very recently. Healthcare proxy invoked; pending affirmation Hospital course: 12/17: pt had ECT this morning. Continue current tx plan. 12/18 restarted lorazepam for catatonic like sx periods agitation more active today pt very disorganized 12/19 completely disorganized; refused ECT today; refusing meds Patient having difficulty integrating information at this time healthcare proxy was invoked and informed consent for ECT was obtained from the patient's mother who is healthcare proxy; anesthesia also obtained informed consent the patient was agreeable to admission and is agreeing to ECT 12/21/23: No changes. Continue to encourage ECT, next scheduled on Saturday12/23/202312/21: No changes. Continue to encourage 12/22 pt remains psychotic, disorganized in speech and behavior and w/ catatonic symptoms. She consented to ECT which she received. 12/23 Yesterday later on patient did eat meal with her mother; later in the evening patient started talking more freely and asked why she was in the hospital and what was her diagnosis. Today patient is talking more. She remains disorganized in speech and behavior and initially asked parts data writer if she is in trouble, which she has been asking peers and staff, under the delusion that she has committed some crime. She seems to understand that ECT has been helpful and will reduce auditory hallucinations. Patient later continued to come to parts data writer and ask if she was or tell parts data writer that she is , not accepting negative lab results 12/24 no change in presentation; will continue to offer ECT; last time, this was the essential treatment and very likely remains so Later on in the day, patient asked multiple staff if she could talk to this parts data writer. She said you're Dr. Smith, right? and said she remembers working w/ parts data writer at last admission. She remembers that she got ECT and that it helped take away the auditory hallucinations. She then asked if she can get it now but accepted that she'll have to wait till Sat for treatment to which she said ok. 12/25 remains disorganized and with paranoid delusions and AH. However she is talking more, eating a little and drinking more, and has some improved insight, remembering and wanting ECT. Today, patient came up to parts data writer and apologized; she reported auditory hallucinations are telling her she was born by mistake... She again discussed ECT remembered that it helped with auditory hallucinations; she explained that she is hearing voices and asked what day she can get ECT again; she understood next treatment will be tomorrow morning to which she said okay. 12/26 patient had ECT today; patient talking more and though still disorganized, less so; wanted to take a shower; later on said she was continue with ECT since it helps with voices. Still struggling with paranoid delusions but redirectable. Taking Ativan and Abilify. 12/28/23 CTP - check uhcg 12/29/23- ECT tomorrow, cg negative again- nursing looking into bcp from prior admit 12/29 Patient did receive ECT today. She is also more organized in speech behavior. Still with significant thought blocking/delayed response and walking quite slowly, stumbling a little however patient denies AVH and paranoid delusions; she does not remember anything from the past weeks and was surprised to hear that she had a return of her manic/psychotic episode. However she was grateful to hear that ECT is helping. She asked how much will it help? and parts data writer provided education. -discussed case with Dr. Ackerman regarding ECT and who suggests lowering energy% to 30% or 40% given continue long seizure -although patient is doing better today, even yesterday she still had paranoid delusions and AH; her clarity waxes and wanes and she is prone to regression. Patient will very likely need numerous more ECT treatments to regain stability. Will continue to proceed with healthcare proxy affirmation as patient judgment/insight is fragile and improvement ephemeral 12/30 today patient returns to disorganized speech and behavior, AH and paranoid delusions; continues with catatonic symptoms -continue with ECT 12/31 remains with AH and some passive SI, but a little more organized today; agrees to remain for ECT -wondering about whether to continue Abilify as not sure it helps much -continue Ativan for Catatonic symptoms 01/01 Patient talking much more clearly (though still some thought blocking) and vocally out loud in the milieu addressed parts data writer by marcial and asked to talk. She wanted to know about when she could go home; discussed her symptoms and she denies AH or any delusional thinking; she says she does not remember any of it however, her disorganization, paranoid delusions... She agrees to remain on the unit for continued ECT as it was discontinued too early last admission with return of symptoms. -will start to decrease and then taper off Ativan Plan: HCP affirmed CV Continue ECT MWF: Patient improving from ECT in the past and would ask for it since it would help decrease and then eliminate auditory hallucinations; patient may very well again consent Continue Abilify 15 mg q.h.s. Lower to Ativan to 0.5 mg t.i.d. for continued catatonic symptoms which are lessening Ativan 1 mg prior to ECT; will continue given that patient is having prolonged seizures even with Ativan Patient educated on: diagnosis, medication risk/benefits, ECT and therapeutic strategies Informed Consent: understands and further education needed Reason for continued inpatient stay Substantial Risk for: inability to function Time Spent With Patient Time: Total time managing care of this patient today ____ minutes.
[2024-01-02] MEDS: Ondansetron ODT 4 MG TAB.RAPDIS TRANSLINGU (19:44)
[2024-01-02 20:00] VITALS: BP 126/63; PULSE 111; RESP 16; TEMP 36.5; O2SAT 100
[2024-01-02] MEDS: ARIPiprazole 15 MG TABLET PO (20:15)
[2024-01-03] VITALS (10 sets, daily range): BP systolic 103–167; BP diastolic 51–90; PULSE 54–124; RESP 14–17; TEMP 36.4–36.8; O2SAT 98–100
[2024-01-03] MEDS: LORazepam 1 MG TABLET PO (06:23)
--- NOTE | 2024-01-03 08:33 | HO.ANESPROP2 ---
[facility] Active Problems Active Problems: All Active Problems Catatonia (Acute) Auditory hallucination (Acute) Bipolar disorder in remission (Acute) Pre-op evaluation (Acute) Supraventricular tachycardia (Acute) Schizoaffective disorder (Acute) Intellectual disability (Acute) Major depressive disorder, recurrent episode, severe, with psychosis (Chronic) Contraception management (Acute) Vitamin D deficiency (Acute) Vitamin B12 deficiency (Acute) Uses control (Acute) Supraventricular tachycardia by ECG (Acute) Migraine (Acute) Past Medical History Medical History Bipolar disorder in remission Supraventricular tachycardia Schizoaffective disorder Intellectual disability Contraception management Vitamin D deficiency Vitamin B12 deficiency Uses control Hx of ovarian cyst Epigastric abdominal pain Orthostatic hypotension Supraventricular tachycardia by ECG Left ovarian cyst Migraine Family History Family History Mother Bipolar disorder Mental health disorder Family history of problems with anesthesia: No Surgical History Surgical History H/O removal of cyst History of Problems with Anesthesia: No Social History Social History Household Members: Family Household Members Other:: Pt unable to answer questions d/t mental status. 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 Patient Tobacco Use Status: Never used Tobacco e-Cigarette/Vaping Use: Never Used Second Hand Smoke Exposure: No Substance Use Type: Unknown Advance Directives Date on File: 12/10/23 service: No Current occupational status: unemployed Sexual orientation: Straight/Heterosexual Gender identity: Female Cognitive needs: No Hearing needs: No Vision needs: No Meds Allergies Allergy/AdvReac Type Severity Reaction Status Date / Time haloperidol AdvReac EPS Verified 12/15/23 19:33 metoprolol AdvReac Diarrhea Verified 12/15/23 19:33 Active Medications: Current Medications Acetaminophen (Acetaminophen 325 Mg Tablet) 650 mg PO Q6H PRN PRN Reason: Headache/Pain Mild Scale (1-3) Last Admin: 01/01/24 20:33 Dose: 650 mg Al Hydroxide/Mg Hydroxide (Magnesium Hydrox/Alum Hydrox 30 Ml Oral.Susp) 30 ml PO Q6H PRN PRN Reason: Heartburn/Nausea Aripiprazole (Aripiprazole 15 Mg Tablet) 15 mg PO BEDTIME [facility] Last Admin: 01/02/24 20:15 Dose: 15 mg Clonidine HCl (Clonidine Hcl 0.1 Mg Tablet) 0.1 mg PO Q4H PRN; Protocol PRN Reason: mild anxiety (try 1st) Last Admin: 12/31/23 19:27 Dose: 0.1 mg Hydroxyzine HCl (Hydroxyzine Hcl 25 Mg Tablet) 25 mg PO Q6H PRN PRN Reason: Anxiety Last Admin: 01/02/24 18:18 Dose: 25 mg Lorazepam (Lorazepam 1 Mg Tablet) 1 mg PO TID [facility] Last Admin: 01/02/24 20:15 Dose: 1 mg Lorazepam (Lorazepam 1 Mg Tablet) 1 mg PO MOWEFR [facility] Last Admin: 01/03/24 06:23 Dose: 1 mg Magnesium Hydroxide (Milk Of Magnesia 30 Ml Oral.Susp) 30 ml PO DAILY PRN PRN Reason: Constipation Last Admin: 12/28/23 13:26 Dose: 30 ml Ondansetron HCl (Ondansetron Odt 4 Mg Tab.Rapdis) 4 mg TRANSLINGU Q6H PRN PRN Reason: Nausea And Vomiting Last Admin: 01/02/24 19:44 Dose: 4 mg Trazodone HCl (Trazodone Hcl 50 Mg Tablet) 50 mg PO BEDTIME MRX1 PRN PRN Reason: Insomnia Last Admin: 12/18/23 00:14 Dose: 50 mg Exam Height,Weight and Vital Signs: Height 5 ft Weight 67.3 kg Last Vital Signs Temp 97.7 F 01/02/24 20:00 Pulse 111 H 01/02/24 20:00 Resp 16 01/02/24 20:00 BP 126/63 01/02/24 20:00 Pulse Ox 100 01/02/24 20:00 O2 Del Method Room Air 01/02/24 20:00 O2 Flow Rate 2 12/30/23 07:40 Pertinent Lab Results Pertinent Lab Results: Laboratory Tests 12/16/23 12/23/23 12/28/23 11:42 08:42 11:30 WBC 5.5 RBC 4.26 Hgb 11.6 L Hct 35.5 L MCV 83.3 MCH 27.2 MCHC 32.7 RDW 15.8 Plt Count 363 MPV 9.8 Immature Gran % (Auto) 0.5 H Neut % (Auto) 63.1 Lymph % (Auto) 24.2 [place] % (Auto) 9.9 Eos % (Auto) 1.8 Baso % (Auto) 0.5 Lymph # (Auto) 1.3 [place] # (Auto) 0.6 Eos # (Auto) 0.1 Baso # (Auto) 0.0 Abs Immat Gran (auto) 0.03 Absolute Neuts (auto) 3.5 Absolute Nucleated RBC 0.000 Nucleated RBC % (auto) 0.0 Sodium 141 Potassium 3.4 Chloride 104 Carbon Dioxide 26 Anion Gap 14 BUN 4 L Creatinine 0.64 Estim Creat Clear Calc 117.8 Estimated GFR > 60 Fasting Glucose 101 H Calcium 9.8 Total Bilirubin 0.5 AST 18 ALT 15 Alkaline Phosphatase 70 Total Protein 6.8 Albumin 3.9 Urine Color Yellow Urine Appearance Cloudy Urine pH 7.0 Ur Specific [place] 1.010 Urine Protein Negative Urine Glucose (UA) Negative Urine Ketones Negative Urine Blood Negative Urine Nitrite Positive H Ur Leukocyte Esterase Trace H Urine RBC 0-2 Urine WBC 0-5 Ur Squamous Epith Cells 6-10 Urine Bacteria 4+ Hyaline Casts 0-2 Urine Test NEGATIVE NEGATIVE Urine Opiates Screen Not Detected Ur Buprenorphine Scrn Not Detected Ur Oxycodone Screen Not Detected Urine Methadone Screen Not Detected Urine Fentanyl Screen Not Detected Ur Barbiturates Screen Not Detected Ur Phencyclidine Scrn Not Detected Ur Amphetamines Screen Not Detected U Benzodiazepines Scrn Not Detected Urine Cocaine Screen Not Detected U Marijuana (THC) Screen Not Detected Airway Mallampati Class: II TM Dist: >3cm Neck ROM: Full Heart: rrr Lungs: cta Assessment and Plan Assessment Anesthesia Assessment: Anesthesia Plan Discussed and Chart Reviewed Final Anesthetic Review Family History of Problems with Anesthesia: No History of Problems with Anesthesia: No NPO: Yes ASA Class: III Final Preanesthetic Review: No Changes in Pt Med Stat, Meds/Allgs Chart Reviewed and Consent Obtained/Reviewed Patient Risk: Intermediate Procedure Risk: Intermediate Anesthetic Plan Anesthetic Plan: GA Disposition: Standard PACU
[2024-01-03] MEDS: Lactated Ringers 1,000 ML 50 ML IVCONT (08:45)
--- NOTE | 2024-01-03 09:34 | MHC.SHP ---
Pre-Procedural Eval Section A - 24 Hr Update-Section A only Date of Service: 01/03/24 The patient is an INPATIENT: Yes Changes since office visit: Yes New Medical Problems and Yes Patient answered all questions; No Cold of Flu in the past 2 weeks and No Changes in Medication The patient has been examined within 24 hours of the surgical procedure. The History & Physical has been completed within 30 days and I have reviewed it.: Yes Section B - Complete if H&P > 30 days Chief Complaint: Psychosis Allergies: Allergies Allergy/AdvReac Type Severity Reaction Status Date / Time haloperidol AdvReac EPS Verified 12/15/23 19:33 metoprolol AdvReac Diarrhea Verified 12/15/23 19:33 Plan I have reviewed the history and physical and performed a pertinent physical examination on my patient. No changes have occurred unless specified. Time Spent With Patient Time: Total time managing care of this patient today ____ minutes.
[2024-01-03] MEDS: LORazepam 2 MG/ML VIAL 1 MG IVPUSH (09:51)
--- NOTE | 2024-01-03 11:04 | HO.PSYCHPN ---
Subjective Subjective Date of Service: 01/03/24 Reason For Visit: Psychosis Interim History: met with patient; discussed with team pt doing much better and seems fully organized in speech and behavior. agrees to stay for ECT; no AVH and no delusions Mental Status Exam Mental Status Exam Narrative: Pt is alert and oriented; behavior is cooperative, friendly and calm; patient is not in distress; dressed in casual attire with adequate hygiene; mood is described as good and affect congruent; eye contact appropriate; Speech is normal rate, volume and prosody and not pressured; no psychomotor agitation/retardation present; thought process is organized and goal directed; Thought content is on tx; otherwise pertinent to relevant topics and without any delusional content, paranoid ideations or grandiosity; denies any SI/HI. There is no evidence of perceptual disturbance. Patients insight and judgment appear intact. Diagnostics Vital Signs (24Hr): Vital Signs - 24 hr 01/02/24 20:00 01/03/24 08:00 01/03/24 09:49 Temperature 97.7 F 97.6 F 98.1 F Pulse Rate 111 H 83 81 Respiratory Rate 16 16 14 Blood Pressure 126/63 108/57 L 167/90 H Pulse Oximetry 100 99 100 Oxygen Delivery Method Room Air Room Air Nasal Cannula with ETCO2 Oxygen Flow Rate 2 01/03/24 09:54 01/03/24 09:59 01/03/24 10:04 Temperature Pulse Rate 79 87 90 Respiratory Rate 15 16 17 Blood Pressure 109/66 111/63 114/66 Pulse Oximetry 100 100 100 Oxygen Delivery Method Nasal Cannula with ETCO2 Nasal Cannula with ETCO2 Nasal Cannula with ETCO2 Oxygen Flow Rate 2 2 2 01/03/24 10:19 01/03/24 10:38 01/03/24 10:49 Temperature 98.1 F 98 F Pulse Rate 89 97 80 Respiratory Rate 16 16 16 Blood Pressure 110/69 107/51 L 120/80 Pulse Oximetry 98 99 99 Oxygen Delivery Method Room Air Room Air Oxygen Flow Rate BMI result Body Mass Index 29.0 Labs 12/23/23 08:42 12/23/23 08:42 Imaging Radiology Impressions: ITS Impressions Lumbar Spine X-Ray 12/28/23 21:40 IMPRESSION: No acute fracture of the lumbar spine or sacrum. Sacrum and Coccyx X-Ray 12/28/23 21:40 IMPRESSION: No acute fracture of the lumbar spine or sacrum. Medications Medications Current Medications Acetaminophen (Acetaminophen 325 Mg Tablet) 650 mg PO Q6H PRN PRN Reason: Headache/Pain Mild Scale (1-3) Last Admin: 01/01/24 20:33 Dose: 650 mg Al Hydroxide/Mg Hydroxide (Magnesium Hydrox/Alum Hydrox 30 Ml Oral.Susp) 30 ml PO Q6H PRN PRN Reason: Heartburn/Nausea Aripiprazole (Aripiprazole 15 Mg Tablet) 15 mg PO BEDTIME [facility] Last Admin: 01/02/24 20:15 Dose: 15 mg Clonidine HCl (Clonidine Hcl 0.1 Mg Tablet) 0.1 mg PO Q4H PRN; Protocol PRN Reason: mild anxiety (try 1st) Last Admin: 12/31/23 19:27 Dose: 0.1 mg Hydroxyzine HCl (Hydroxyzine Hcl 25 Mg Tablet) 25 mg PO Q6H PRN PRN Reason: Anxiety Last Admin: 01/02/24 18:18 Dose: 25 mg Lorazepam (Lorazepam 1 Mg Tablet) 1 mg PO TID [facility] Last Admin: 01/02/24 20:15 Dose: 1 mg Lorazepam (Lorazepam 1 Mg Tablet) 1 mg PO MOWEFR [facility] Last Admin: 01/03/24 06:23 Dose: 1 mg Magnesium Hydroxide (Milk Of Magnesia 30 Ml Oral.Susp) 30 ml PO DAILY PRN PRN Reason: Constipation Last Admin: 12/28/23 13:26 Dose: 30 ml Ondansetron HCl (Ondansetron Odt 4 Mg Tab.Rapdis) 4 mg TRANSLINGU Q6H PRN PRN Reason: Nausea And Vomiting Last Admin: 01/02/24 19:44 Dose: 4 mg Trazodone HCl (Trazodone Hcl 50 Mg Tablet) 50 mg PO BEDTIME MRX1 PRN PRN Reason: Insomnia Last Admin: 12/18/23 00:14 Dose: 50 mg Allergies Allergies Allergy/AdvReac Type Severity Reaction Status Date / Time haloperidol AdvReac EPS Verified 12/15/23 19:33 metoprolol AdvReac Diarrhea Verified 12/15/23 19:33 Assessment & Plan Assessment & Plan (1) Schizoaffective disorder: Status: Acute Code(s): F25.9 - Schizoaffective disorder, unspecified Assessment and Plan: ongoing disorganinzation believes she is or giving (not sure she understands what my water broke means) (2) Catatonia: Status: Acute Code(s): F06.1 - Catatonic disorder due to known physiological condition Plan Patient is a 23 year old female with hx of schizoaffective d/o who was recently discharged from on 12/04/23 who presented to ER d/t suicidal ideation secondary to worsening depression and auditory hallucinations instructing her to harm herself. Formulation/clinical reasoning: Patient soon returns to the unit, with return of psychotic delirium and catatonic symptoms which fully resolved during last admission a few weeks ago once she got ECT. Accepted ECT on 12/17 however refused it on 12/19. Will continue to schedule ECT MWF as patient does continue to have moments where she is intermittently lucid enough and wants ECT to make auditory hallucinations to go away. Patient was also getting ECT as an outpatient until very recently. Healthcare proxy invoked; pending affirmation Hospital course: 12/17: pt had ECT this morning. Continue current tx plan. 12/18 restarted lorazepam for catatonic like sx periods agitation more active today pt very disorganized 12/19 completely disorganized; refused ECT today; refusing meds Patient having difficulty integrating information at this time healthcare proxy was invoked and informed consent for ECT was obtained from the patient's mother who is healthcare proxy; anesthesia also obtained informed consent the patient was agreeable to admission and is agreeing to ECT 12/21/23: No changes. Continue to encourage ECT, next scheduled on Saturday12/23/202312/21: No changes. Continue to encourage 12/22 pt remains psychotic, disorganized in speech and behavior and w/ catatonic symptoms. She consented to ECT which she received. 12/23 Yesterday later on patient did eat meal with her mother; later in the evening patient started talking more freely and asked why she was in the hospital and what was her diagnosis. Today patient is talking more. She remains disorganized in speech and behavior and initially asked data analyst report writer if she is in trouble, which she has been asking peers and staff, under the delusion that she has committed some crime. She seems to understand that ECT has been helpful and will reduce auditory hallucinations. Patient later continued to come to data analyst report writer and ask if she was or tell data analyst report writer that she is , not accepting negative lab results 12/24 no change in presentation; will continue to offer ECT; last time, this was the essential treatment and very likely remains so Later on in the day, patient asked multiple staff if she could talk to this data analyst report writer. She said you're Dr. Smith, right? and said she remembers working w/ data analyst report writer at last admission. She remembers that she got ECT and that it helped take away the auditory hallucinations. She then asked if she can get it now but accepted that she'll have to wait till Sat for treatment to which she said ok. 12/25 remains disorganized and with paranoid delusions and AH. However she is talking more, eating a little and drinking more, and has some improved insight, remembering and wanting ECT. Today, patient came up to data analyst report writer and apologized; she reported auditory hallucinations are telling her she was born by mistake... She again discussed ECT remembered that it helped with auditory hallucinations; she explained that she is hearing voices and asked what day she can get ECT again; she understood next treatment will be tomorrow morning to which she said okay. 12/26 patient had ECT today; patient talking more and though still disorganized, less so; wanted to take a shower; later on said she was continue with ECT since it helps with voices. Still struggling with paranoid delusions but redirectable. Taking Ativan and Abilify. 12/28/23 CTP - check uhcg 12/29/23- ECT tomorrow, uhcg negative again- nursing looking into bcp from prior admit 12/29 Patient did receive ECT today. She is also more organized in speech behavior. Still with significant thought blocking/delayed response and walking quite slowly, stumbling a little however patient denies AVH and paranoid delusions; she does not remember anything from the past weeks and was surprised to hear that she had a return of her manic/psychotic episode. However she was grateful to hear that ECT is helping. She asked how much will it help? and data analyst report writer provided education. -discussed case with Dr. Ackerman regarding ECT and who suggests lowering energy% to 30% or 40% given continue long seizure -although patient is doing better today, even yesterday she still had paranoid delusions and AH; her clarity waxes and wanes and she is prone to regression. Patient will very likely need numerous more ECT treatments to regain stability. Will continue to proceed with healthcare proxy affirmation as patient judgment/insight is fragile and improvement ephemeral 12/30 today patient returns to disorganized speech and behavior, AH and paranoid delusions; continues with catatonic symptoms -continue with ECT 12/31 remains with AH and some passive SI, but a little more organized today; agrees to remain for ECT -wondering about whether to continue Abilify as not sure it helps much -continue Ativan for Catatonic symptoms 01/01 Patient talking much more clearly (though still some thought blocking) and vocally out loud in the milieu addressed data analyst report writer by marcial and asked to talk. She wanted to know about when she could go home; discussed her symptoms and she denies AH or any delusional thinking; she says she does not remember any of it however, her disorganization, paranoid delusions... She agrees to remain on the unit for continued ECT as it was discontinued too early last admission with return of symptoms. -will start to decrease and then taper off Ativan 01/02 much improved and nearly back to regular self; discussed medications and she's fine to come of Abilfy and switch to something else. Agrees to continue ECT Plan: HCP affirmed CV Continue ECT MWF: Patient improving from ECT in the past and would ask for it since it would help decrease and then eliminate auditory hallucinations; patient may very well again consent Continue Abilify 15 mg q.h.s. Lower to Ativan to 0.5 mg t.i.d. for continued catatonic symptoms which are lessening Ativan 1 mg prior to ECT; will continue given that patient is having prolonged seizures even with Ativan Patient educated on: diagnosis, medication risk/benefits, ECT and therapeutic strategies Informed Consent: understands Reason for continued inpatient stay Substantial Risk for: stable for discharge Time Spent With Patient Time: Total time managing care of this patient today ____ minutes.
[2024-01-03] MEDS: LORazepam 0.5 MG TABLET PO ×2 (15:23→22:20)
[2024-01-03] MEDS: Acetaminophen 325 MG TABLET 650 MG PO (17:01)
[2024-01-03] MEDS: cloNIDine HCL 0.1 MG TABLET PO (17:01)
[2024-01-03] MEDS: ARIPiprazole 15 MG TABLET PO (22:17)
[2024-01-04 08:00] VITALS: BP 111/58; PULSE 86; RESP 16; TEMP 36.5; O2SAT 99
[2024-01-04] MEDS: LORazepam 0.5 MG TABLET PO ×3 (08:25→22:11)
[2024-01-04] MEDS: Acetaminophen 325 MG TABLET 650 MG PO ×2 (08:44→18:11)
--- NOTE | 2024-01-04 11:15 | HO.PSYCHPN ---
Subjective Subjective Date of Service: 01/04/24 Reason For Visit: Psychosis Interim History: Met with patient; discussed with team Patient continues to do much better. She has not totally back to her regular self and still needed some guidance when taking a shower; however she is talking clearly, organized in speech and behavior and doing much better. Discussed medication and she agrees that Abilify has not made much difference. Centrifugal Spinner discussed case with Tyron and last week Dr. Méndez who both agree that given patient's psychotic delirium, catatonia and failed medication trials that clozapine is likely necessary to try. Discussed this with patient, reviewing risks/side effects and weekly blood draws and patient agrees with plan to start this medication. Mental Status Exam Mental Status Exam Narrative: Pt is alert and oriented; behavior is cooperative, friendly and calm and mostly fully organized; patient is not in distress; dressed in casual attire with adequate hygiene; mood is described as good and affect congruent; eye contact appropriate; Speech is normal rate, volume and prosody and not pressured; no psychomotor agitation/retardation present; thought process is organized and goal directed; Thought content is on tx; otherwise pertinent to relevant topics and without any delusional content, paranoid ideations or grandiosity; denies any SI/HI. There is no evidence of perceptual disturbance. Patients insight and judgment appear intact. Diagnostics Vital Signs (24Hr): Vital Signs - 24 hr 01/03/24 17:00 01/03/24 20:00 01/04/24 08:00 Temperature 98.2 F 97.7 F Pulse Rate 124 H 54 86 Respiratory Rate 16 16 Blood Pressure 116/62 103/59 L 111/58 L Pulse Oximetry 98 99 Oxygen Delivery Method Room Air Room Air BMI result Body Mass Index 29.0 Labs 12/23/23 08:42 12/23/23 08:42 Imaging Radiology Impressions: ITS Impressions Lumbar Spine X-Ray 12/28/23 21:40 IMPRESSION: No acute fracture of the lumbar spine or sacrum. Sacrum and Coccyx X-Ray 12/28/23 21:40 IMPRESSION: No acute fracture of the lumbar spine or sacrum. Medications Medications Current Medications Acetaminophen (Acetaminophen 325 Mg Tablet) 650 mg PO Q6H PRN PRN Reason: Headache/Pain Mild Scale (1-3) Last Admin: 01/04/24 08:44 Dose: 650 mg Al Hydroxide/Mg Hydroxide (Magnesium Hydrox/Alum Hydrox 30 Ml Oral.Susp) 30 ml PO Q6H PRN PRN Reason: Heartburn/Nausea Aripiprazole (Aripiprazole 15 Mg Tablet) 15 mg PO BEDTIME [facility] Last Admin: 01/03/24 22:17 Dose: 15 mg Clonidine HCl (Clonidine Hcl 0.1 Mg Tablet) 0.1 mg PO Q4H PRN; Protocol PRN Reason: mild anxiety (try 1st) Last Admin: 01/03/24 17:01 Dose: 0.1 mg Hydroxyzine HCl (Hydroxyzine Hcl 25 Mg Tablet) 25 mg PO Q6H PRN PRN Reason: Anxiety Last Admin: 01/02/24 18:18 Dose: 25 mg Lorazepam (Lorazepam 1 Mg Tablet) 1 mg PO MOWEFR [facility] Last Admin: 01/03/24 06:23 Dose: 1 mg Lorazepam (Lorazepam 0.5 Mg Tablet) 0.5 mg PO TID [facility] Last Admin: 01/04/24 08:25 Dose: 0.5 mg Magnesium Hydroxide (Milk Of Magnesia 30 Ml Oral.Susp) 30 ml PO DAILY PRN PRN Reason: Constipation Last Admin: 12/28/23 13:26 Dose: 30 ml Ondansetron HCl (Ondansetron Odt 4 Mg Tab.Rapdis) 4 mg TRANSLINGU Q6H PRN PRN Reason: Nausea And Vomiting Last Admin: 01/02/24 19:44 Dose: 4 mg Trazodone HCl (Trazodone Hcl 50 Mg Tablet) 50 mg PO BEDTIME MRX1 PRN PRN Reason: Insomnia Last Admin: 12/18/23 00:14 Dose: 50 mg Allergies Allergies Allergy/AdvReac Type Severity Reaction Status Date / Time haloperidol AdvReac EPS Verified 12/15/23 19:33 metoprolol AdvReac Diarrhea Verified 12/15/23 19:33 Assessment & Plan Assessment & Plan (1) Schizoaffective disorder: Status: Acute Code(s): F25.9 - Schizoaffective disorder, unspecified Assessment and Plan: ongoing disorganinzation believes she is or giving (not sure she understands what my water broke means) (2) Catatonia: Status: Acute Code(s): F06.1 - Catatonic disorder due to known physiological condition Plan Patient is a 23 year old female with hx of schizoaffective d/o who was recently discharged from on 12/04/23 who presented to ER d/t suicidal ideation secondary to worsening depression and auditory hallucinations instructing her to harm herself. Formulation/clinical reasoning: Patient soon returns to the unit, with return of psychotic delirium and catatonic symptoms which fully resolved during last admission a few weeks ago once she got ECT. Accepted ECT on 12/17 however refused it on 12/19. Will continue to schedule ECT MWF as patient does continue to have moments where she is intermittently lucid enough and wants ECT to make auditory hallucinations to go away. Patient was also getting ECT as an outpatient until very recently. Healthcare proxy invoked; pending affirmation Hospital course: 12/17: pt had ECT this morning. Continue current tx plan. 12/18 restarted lorazepam for catatonic like sx periods agitation more active today pt very disorganized 12/19 completely disorganized; refused ECT today; refusing meds Patient having difficulty integrating information at this time healthcare proxy was invoked and informed consent for ECT was obtained from the patient's mother who is healthcare proxy; anesthesia also obtained informed consent the patient was agreeable to admission and is agreeing to ECT 12/21/23: No changes. Continue to encourage ECT, next scheduled on Saturday12/23/202312/21: No changes. Continue to encourage 12/22 pt remains psychotic, disorganized in speech and behavior and w/ catatonic symptoms. She consented to ECT which she received. 12/23 Yesterday later on patient did eat meal with her mother; later in the evening patient started talking more freely and asked why she was in the hospital and what was her diagnosis. Today patient is talking more. She remains disorganized in speech and behavior and initially asked newspaper writer if she is in trouble, which she has been asking peers and staff, under the delusion that she has committed some crime. She seems to understand that ECT has been helpful and will reduce auditory hallucinations. Patient later continued to come to newspaper writer and ask if she was or tell newspaper writer that she is , not accepting negative lab results 12/24 no change in presentation; will continue to offer ECT; last time, this was the essential treatment and very likely remains so Later on in the day, patient asked multiple staff if she could talk to this newspaper writer. She said you're Dr. Smith, right? and said she remembers working w/ newspaper writer at last admission. She remembers that she got ECT and that it helped take away the auditory hallucinations. She then asked if she can get it now but accepted that she'll have to wait till Sat for treatment to which she said ok. 12/25 remains disorganized and with paranoid delusions and AH. However she is talking more, eating a little and drinking more, and has some improved insight, remembering and wanting ECT. Today, patient came up to newspaper writer and apologized; she reported auditory hallucinations are telling her she was born by mistake... She again discussed ECT remembered that it helped with auditory hallucinations; she explained that she is hearing voices and asked what day she can get ECT again; she understood next treatment will be tomorrow morning to which she said okay. 12/26 patient had ECT today; patient talking more and though still disorganized, less so; wanted to take a shower; later on said she was continue with ECT since it helps with voices. Still struggling with paranoid delusions but redirectable. Taking Ativan and Abilify. 12/28/23 CTP - check uhcg 12/29/23- ECT tomorrow, uhcg negative again- nursing looking into bcp from prior admit 12/29 Patient did receive ECT today. She is also more organized in speech behavior. Still with significant thought blocking/delayed response and walking quite slowly, stumbling a little however patient denies AVH and paranoid delusions; she does not remember anything from the past weeks and was surprised to hear that she had a return of her manic/psychotic episode. However she was grateful to hear that ECT is helping. She asked how much will it help? and newspaper writer provided education. -discussed case with Dr. Ackerman regarding ECT and who suggests lowering energy% to 30% or 40% given continue long seizure -although patient is doing better today, even yesterday she still had paranoid delusions and AH; her clarity waxes and wanes and she is prone to regression. Patient will very likely need numerous more ECT treatments to regain stability. Will continue to proceed with healthcare proxy affirmation as patient judgment/insight is fragile and improvement ephemeral 12/30 today patient returns to disorganized speech and behavior, AH and paranoid delusions; continues with catatonic symptoms -continue with ECT 12/31 remains with AH and some passive SI, but a little more organized today; agrees to remain for ECT -wondering about whether to continue Abilify as not sure it helps much -continue Ativan for Catatonic symptoms 01/01 Patient talking much more clearly (though still some thought blocking) and vocally out loud in the milieu addressed newspaper writer by marcial and asked to talk. She wanted to know about when she could go home; discussed her symptoms and she denies AH or any delusional thinking; she says she does not remember any of it however, her disorganization, paranoid delusions... She agrees to remain on the unit for continued ECT as it was discontinued too early last admission with return of symptoms. -will start to decrease and then taper off Ativan 01/02 much improved and nearly back to regular self; discussed medications and she's fine to come of Abilfy and switch to something else. Agrees to continue ECT 01/03 Patient continues to do much better. She has not totally back to her regular self and still needed some guidance when taking a shower; however she is talking clearly, organized in speech and behavior and doing much better. Discussed medication and she agrees that Abilify has not made much difference. Centrifugal Spinner discussed case with Tyron and last week Dr. Méndez who both agree that given patient's psychotic delirium, catatonia and failed medication trials that clozapine is likely necessary to try. Discussed this with patient, reviewing risks/side effects and weekly blood draws and patient agrees with plan to start this medication. Plan: HCP affirmed CV Continue ECT MWF: Patient improving from ECT in the past and would ask for it since it would help decrease and then eliminate auditory hallucinations; patient may very well again consent Tomorrow will likely start clozapine 25 mg q.h.s. Lowered to Abilify 10 mg q.h.s. will DC Lower to Ativan to 0.5 mg t.i.d. for continued catatonic symptoms which are lessening Ativan 1 mg prior to ECT; will continue given that patient is having prolonged seizures even with Ativan Patient educated on: diagnosis, medication risk/benefits and ECT Informed Consent: understands Reason for continued inpatient stay Substantial Risk for: rapid decompensation Time Spent With Patient Time: Total time managing care of this patient today ____ minutes.
[2024-01-04 13:39] VITALS: BP 119/65
[2024-01-04] MEDS: cloNIDine HCL 0.1 MG TABLET PO (13:39)
[2024-01-04 19:41] VITALS: BP 149/85; PULSE 95; RESP 18; TEMP 36.6; O2SAT 100
[2024-01-04] MEDS: ARIPiprazole 10 MG TABLET PO (22:12)
[2024-01-05] MEDS: Acetaminophen 325 MG TABLET 650 MG PO (07:22)
[2024-01-05 07:43] VITALS: BP 117/77; PULSE 84; RESP 16; TEMP 36.3; O2SAT 100
[2024-01-05] MEDS: LORazepam 0.5 MG TABLET PO ×3 (08:00→20:29)
--- NOTE | 2024-01-05 08:51 | P.PNPSI_ITS ---
Subjective Subjective Date of Service: 01/05/24 Reason For Visit: Psychosis Interim History: Met with patient; discussed with team pt continues to do much better and pretty close to her regular self, friendly, calm, appropriate, joking with staff. She endured finger stick for ANC blood draw and says she thinks she can tolerate this 1/week; thinks adding Lidocaine may help. Patient's mother present who is also her healthcare proxy, and casualty underwriter discussed plan with her, again reviewing risks/side effects and she also agrees with proceeding with clozapine. Mental Status Exam Mental Status Exam Narrative: Pt is alert and oriented; behavior is cooperative, friendly and calm and mostly fully organized; patient is not in distress; dressed in casual attire with adequate hygiene; mood is described as good and affect congruent; eye contact appropriate; Speech is normal rate, volume and prosody and not pressured; no psychomotor agitation/retardation present; thought process is organized and goal directed; Thought content is on tx; otherwise pertinent to relevant topics and without any delusional content, paranoid ideations or grandiosity; denies any SI/HI. There is no evidence of perceptual disturbance. Patients insight and judgment appear intact. Diagnostics Vital Signs (24Hr): Vital Signs - 24 hr 01/04/24 13:39 01/04/24 19:41 01/05/24 07:43 Temperature 97.8 F 97.4 F Pulse Rate 95 84 Respiratory Rate 18 16 Blood Pressure 119/65 149/85 H 117/77 Pulse Oximetry 100 100 Oxygen Delivery Method Room Air Room Air BMI result Body Mass Index 29.0 Labs 12/23/23 08:42 12/23/23 08:42 Imaging Radiology Impressions: ITS Impressions Lumbar Spine X-Ray 12/28/23 21:40 IMPRESSION: No acute fracture of the lumbar spine or sacrum. Sacrum and Coccyx X-Ray 12/28/23 21:40 IMPRESSION: No acute fracture of the lumbar spine or sacrum. Medications Medications Current Medications Acetaminophen (Acetaminophen 325 Mg Tablet) 650 mg PO Q6H PRN PRN Reason: Headache/Pain Mild Scale (1-3) Last Admin: 01/05/24 07:22 Dose: 650 mg Al Hydroxide/Mg Hydroxide (Magnesium Hydrox/Alum Hydrox 30 Ml Oral.Susp) 30 ml PO Q6H PRN PRN Reason: Heartburn/Nausea Aripiprazole (Aripiprazole 10 Mg Tablet) 10 mg PO BEDTIME [facility] Last Admin: 01/04/24 22:12 Dose: 10 mg Clonidine HCl (Clonidine Hcl 0.1 Mg Tablet) 0.1 mg PO Q4H PRN; Protocol PRN Reason: mild anxiety (try 1st) Last Admin: 01/04/24 13:39 Dose: 0.1 mg Hydroxyzine HCl (Hydroxyzine Hcl 25 Mg Tablet) 25 mg PO Q6H PRN PRN Reason: Anxiety Last Admin: 01/02/24 18:18 Dose: 25 mg Lorazepam (Lorazepam 1 Mg Tablet) 1 mg PO MOWEFR [facility] Last Admin: 01/03/24 06:23 Dose: 1 mg Lorazepam (Lorazepam 0.5 Mg Tablet) 0.5 mg PO TID [facility] Last Admin: 01/05/24 08:00 Dose: 0.5 mg Magnesium Hydroxide (Milk Of Magnesia 30 Ml Oral.Susp) 30 ml PO DAILY PRN PRN Reason: Constipation Last Admin: 12/28/23 13:26 Dose: 30 ml Ondansetron HCl (Ondansetron Odt 4 Mg Tab.Rapdis) 4 mg TRANSLINGU Q6H PRN PRN Reason: Nausea And Vomiting Last Admin: 01/02/24 19:44 Dose: 4 mg Trazodone HCl (Trazodone Hcl 50 Mg Tablet) 50 mg PO BEDTIME MRX1 PRN PRN Reason: Insomnia Last Admin: 12/18/23 00:14 Dose: 50 mg Allergies Allergies Allergy/AdvReac Type Severity Reaction Status Date / Time haloperidol AdvReac EPS Verified 12/15/23 19:33 metoprolol AdvReac Diarrhea Verified 12/15/23 19:33 Assessment & Plan Assessment & Plan (1) Schizoaffective disorder: Status: Acute Code(s): F25.9 - Schizoaffective disorder, unspecified Assessment and Plan: ongoing disorganinzation believes she is or giving (not sure she understands what my water broke means) (2) Catatonia: Status: Acute Code(s): F06.1 - Catatonic disorder due to known physiological condition Plan Patient is a 23 year old female with hx of schizoaffective d/o who was recently discharged from on 12/04/23 who presented to ER d/t suicidal ideation secondary to worsening depression and auditory hallucinations instructing her to harm herself. Formulation/clinical reasoning: Patient soon returns to the unit, with return of psychotic delirium and catatonic symptoms which fully resolved during last admission a few weeks ago once she got ECT. Accepted ECT on 12/17 however refused it on 12/19. Will continue to schedule ECT MWF as patient does continue to have moments where she is intermittently lucid enough and wants ECT to make auditory hallucinations to go away. Patient was also getting ECT as an outpatient until very recently. Healthcare proxy invoked; pending affirmation Hospital course: 12/17: pt had ECT this morning. Continue current tx plan. 12/18 restarted lorazepam for catatonic like sx periods agitation more active today pt very disorganized 12/19 completely disorganized; refused ECT today; refusing meds Patient having difficulty integrating information at this time healthcare proxy was invoked and informed consent for ECT was obtained from the patient's mother who is healthcare proxy; anesthesia also obtained informed consent the patient was agreeable to admission and is agreeing to ECT 12/21/23: No changes. Continue to encourage ECT, next scheduled on Saturday12/23/202312/21: No changes. Continue to encourage 12/22 pt remains psychotic, disorganized in speech and behavior and w/ catatonic symptoms. She consented to ECT which she received. 12/23 Yesterday later on patient did eat meal with her mother; later in the evening patient started talking more freely and asked why she was in the hospital and what was her diagnosis. Today patient is talking more. She remains disorganized in speech and behavior and initially asked casualty underwriter if she is in trouble, which she has been asking peers and staff, under the delusion that she has committed some crime. She seems to understand that ECT has been helpful and will reduce auditory hallucinations. Patient later continued to come to casualty underwriter and ask if she was or tell casualty underwriter that she is , not accepting negative lab results 12/24 no change in presentation; will continue to offer ECT; last time, this was the essential treatment and very likely remains so Later on in the day, patient asked multiple staff if she could talk to this casualty underwriter. She said you're Dr. Smith, right? and said she remembers working w/ casualty underwriter at last admission. She remembers that she got ECT and that it helped take away the auditory hallucinations. She then asked if she can get it now but accepted that she'll have to wait till Sat for treatment to which she said ok. 12/25 remains disorganized and with paranoid delusions and AH. However she is talking more, eating a little and drinking more, and has some improved insight, remembering and wanting ECT. Today, patient came up to casualty underwriter and apologized; she reported auditory hallucinations are telling her she was born by mistake... She again discussed ECT remembered that it helped with auditory hallucinations; she explained that she is hearing voices and asked what day she can get ECT again; she understood next treatment will be tomorrow morning to which she said okay. 12/26 patient had ECT today; patient talking more and though still disorganized, less so; wanted to take a shower; later on said she was continue with ECT since it helps with voices. Still struggling with paranoid delusions but redirectable. Taking Ativan and Abilify. 12/28/23 CTP - check uhcg 12/29/23- ECT tomorrow, cg negative again- nursing looking into bcp from prior admit 12/29 Patient did receive ECT today. She is also more organized in speech behavior. Still with significant thought blocking/delayed response and walking quite slowly, stumbling a little however patient denies AVH and paranoid delusions; she does not remember anything from the past weeks and was surprised to hear that she had a return of her manic/psychotic episode. However she was grateful to hear that ECT is helping. She asked how much will it help? and casualty underwriter provided education. -discussed case with Dr. Ackerman regarding ECT and who suggests lowering energy% to 30% or 40% given continue long seizure -although patient is doing better today, even yesterday she still had paranoid delusions and AH; her clarity waxes and wanes and she is prone to regression. Patient will very likely need numerous more ECT treatments to regain stability. Will continue to proceed with healthcare proxy affirmation as patient judgment/insight is fragile and improvement ephemeral 12/30 today patient returns to disorganized speech and behavior, AH and paranoid delusions; continues with catatonic symptoms -continue with ECT 12/31 remains with AH and some passive SI, but a little more organized today; agrees to remain for ECT -wondering about whether to continue Abilify as not sure it helps much -continue Ativan for Catatonic symptoms 01/01 Patient talking much more clearly (though still some thought blocking) and vocally out loud in the milieu addressed casualty underwriter by marcial and asked to talk. She wanted to know about when she could go home; discussed her symptoms and she denies AH or any delusional thinking; she says she does not remember any of it however, her disorganization, paranoid delusions... She agrees to remain on the unit for continued ECT as it was discontinued too early last admission with return of symptoms. -will start to decrease and then taper off Ativan 01/02 much improved and nearly back to regular self; discussed medications and she's fine to come of Abilfy and switch to something else. Agrees to continue ECT 01/03 Patient continues to do much better. She has not totally back to her regular self and still needed some guidance when taking a shower; however she is talking clearly, organized in speech and behavior and doing much better. Discussed medication and she agrees that Abilify has not made much difference. Lamination Machine Operator discussed case with Tyron and last week Dr. Méndez who both agree that given patient's psychotic delirium, catatonia and failed medication trials that clozapine is likely necessary to try. Discussed this with patient, reviewing risks/side effects and weekly blood draws and patient agrees with plan to start this medication. 01/04 both mom and patient agree with continue with clozapine after reviewing risks/side effects with both. Patient doing very well and pretty much back to her regular self -ECT on Saturday and Saturday; likely discharge Saturday but continue ECT the following week on Saturday; will then reassess ANC 5700 on 01/04 Plan: HCP affirmed CV Continue ECT MWF: Patient improving from ECT in the past and would ask for it since it would help decrease and then eliminate auditory hallucinations; patient may very well again consent start clozapine 25 mg q.h.s. Lowered to Abilify 5 mg q.h.s. then DC Lower to Ativan to 0.5 mg t.i.d. for continued catatonic symptoms which are lessening Ativan 1 mg prior to ECT; will continue given that patient is having prolonged seizures even with Ativan Failed med trials: ZyprexChau medina; alyssa Rutledge, Olivia Patient educated on: diagnosis, medication risk/benefits and ECT Informed Consent: understands Reason for continued inpatient stay Substantial Risk for: stable for discharge and rapid decompensation Time Spent With Patient Time: Total time managing care of this patient today ____ minutes.
[2024-01-05 09:38] LABS: Neut%MD 66.6 %; Neutrophils Absolute Auto 5.7 x10*3/uL (2.0-8.3); WBCANC 8.6 X10*3/uL
--- NOTE | 2024-01-05 14:19 | HO.ECTPROC ---
ECT Procedure Note Diagnosis/Treatment Date of Service: 01/03/24 Diagnosis: Catatonia and Schizoaffective Disorder Previous ECT Date: 12/30/23 Current Treatment Number: 5 Treatment: Series Interval Clinical Notes: Pt remians with thought blocking less PI pov of content tolerating ect ect on 12/31 ? cancelled Time: Total time managing care of this patient today ____ minutes. ECT Settings Device: THYMATRON DGx Electrode Placement: Bitemporal Program/Pulse Width: 0.25 Energy Percent: 35 Seizure Duration By EEG (in seconds): 56 Medications Administration General Anesthetic: Etomidate (14) Muscle Relaxant: Succinylcholine (80) Ancillary Medications Analgesics: Torodol - Pre ECT Anti-emetics: Zofran - Pre ECT Miscillaneous Medications: Other (Ativan 1mg IVP to terminate the seizure) Airway Management Airway Management: Bag Mask Ventilation Treatment Recommendations Electrode Placement: Bitemporal Program/Pulse Width: 0.25 Energy Percent: 35 Notes: tolerated ect without difficulty Pt Tolerated Procedure w/o Issue: Yes
[2024-01-05 20:00] VITALS: BP 124/77; PULSE 109; TEMP 36.5; O2SAT 100
[2024-01-05] MEDS: cloZAPine 25 MG TABLET PO (20:29)
[2024-01-05] MEDS: ARIPiprazole 5 MG TABLET PO (20:29)
[2024-01-05] MEDS: traZODone HCL 50 MG TABLET PO (20:29)
[2024-01-06] VITALS (12 sets, daily range): BP systolic 107–149; BP diastolic 49–81; PULSE 85–124; RESP 16–18; TEMP 36.2–36.6; O2SAT 98–100
--- NOTE | 2024-01-06 | ECG_ITS ---
Test Reason : tachycardia, h/o SVT Blood Pressure : / mmHG Vent. Rate : 117 BPM Atrial Rate : 117 BPM P-R Int : 162 ms QRS Dur : 084 ms QT Int : 308 ms P-R-T Axes : 036 058 040 degrees QTc Int : 429 ms Sinus tachycardia Nonspecific T wave abnormality Diffuse ST elevations present Abnormal ECG When compared with ECG of 16-DEC-2023 14:30, Diffuse ST elevations ?pericarditis Referred By: Russell Wright Electronically Signed By:Aníbal Montez
[2024-01-06] MEDS: LORazepam 1 MG TABLET PO (06:18)
--- NOTE | 2024-01-06 06:51 | HO.ANESPROP2 ---
[facility] Active Problems Active Problems: All Active Problems Catatonia (Acute) Auditory hallucination (Acute) Bipolar disorder in remission (Acute) Pre-op evaluation (Acute) Supraventricular tachycardia (Acute) Schizoaffective disorder (Acute) Intellectual disability (Acute) Major depressive disorder, recurrent episode, severe, with psychosis (Chronic) Contraception management (Acute) Vitamin D deficiency (Acute) Vitamin B12 deficiency (Acute) Uses control (Acute) Supraventricular tachycardia by ECG (Acute) Migraine (Acute) Past Medical History Medical History Bipolar disorder in remission Supraventricular tachycardia Schizoaffective disorder Intellectual disability Contraception management Vitamin D deficiency Vitamin B12 deficiency Uses control Hx of ovarian cyst Epigastric abdominal pain Orthostatic hypotension Supraventricular tachycardia by ECG Left ovarian cyst Migraine Family History Family History Mother Bipolar disorder Mental health disorder Family history of problems with anesthesia: No Surgical History Surgical History H/O removal of cyst History of Problems with Anesthesia: No Social History Social History Household Members: Family Household Members Other:: Pt unable to answer questions d/t mental status. Housing: House Housing Other:: at home with mother Are you a primary health care legal assistant to a significant other at home: No Alcohol intake: never Comment: 1:1 sitter Patient Tobacco Use Status: Never used Tobacco e-Cigarette/Vaping Use: Never Used Second Hand Smoke Exposure: No Substance Use Type: Unknown Advance Directives Date on File: 12/10/23 service: No Current occupational status: unemployed Sexual orientation: Straight/Heterosexual Gender identity: Female Cognitive needs: No Hearing needs: No Vision needs: No Meds Allergies Allergy/AdvReac Type Severity Reaction Status Date / Time haloperidol AdvReac EPS Verified 12/15/23 19:33 metoprolol AdvReac Diarrhea Verified 12/15/23 19:33 Active Medications: Current Medications Acetaminophen (Acetaminophen 325 Mg Tablet) 650 mg PO Q6H PRN PRN Reason: Headache/Pain Mild Scale (1-3) Last Admin: 01/05/24 07:22 Dose: 650 mg Al Hydroxide/Mg Hydroxide (Magnesium Hydrox/Alum Hydrox 30 Ml Oral.Susp) 30 ml PO Q6H PRN PRN Reason: Heartburn/Nausea Aripiprazole (Aripiprazole 5 Mg Tablet) 5 mg PO BEDTIME [facility] Last Admin: 01/05/24 20:29 Dose: 5 mg Clonidine HCl (Clonidine Hcl 0.1 Mg Tablet) 0.1 mg PO Q4H PRN; Protocol PRN Reason: mild anxiety (try 1st) Last Admin: 01/04/24 13:39 Dose: 0.1 mg Clozapine (Clozapine 25 Mg Tablet) 25 mg PO BEDTIME KRISTI Last Admin: 01/05/24 20:29 Dose: 25 mg Hydroxyzine HCl (Hydroxyzine Hcl 25 Mg Tablet) 25 mg PO Q6H PRN PRN Reason: Anxiety Last Admin: 01/02/24 18:18 Dose: 25 mg Lorazepam (Lorazepam 1 Mg Tablet) 1 mg PO MOWEFR [facility] Last Admin: 01/06/24 06:18 Dose: 1 mg Lorazepam (Lorazepam 0.5 Mg Tablet) 0.5 mg PO TID [facility] Last Admin: 01/05/24 20:29 Dose: 0.5 mg Magnesium Hydroxide (Milk Of Magnesia 30 Ml Oral.Susp) 30 ml PO DAILY PRN PRN Reason: Constipation Last Admin: 12/28/23 13:26 Dose: 30 ml Ondansetron HCl (Ondansetron Odt 4 Mg Tab.Rapdis) 4 mg TRANSLINGU Q6H PRN PRN Reason: Nausea And Vomiting Last Admin: 01/02/24 19:44 Dose: 4 mg Trazodone HCl (Trazodone Hcl 50 Mg Tablet) 50 mg PO BEDTIME MRX1 PRN PRN Reason: Insomnia Last Admin: 01/05/24 20:29 Dose: 50 mg Exam Height,Weight and Vital Signs: Height 5 ft Weight 67.3 kg Last Vital Signs Temp 97.2 F 01/06/24 06:34 Pulse 99 01/06/24 06:34 Resp 18 01/06/24 06:34 BP 113/81 01/06/24 06:34 Pulse Ox 100 01/06/24 06:34 O2 Del Method Room Air 01/06/24 06:34 O2 Flow Rate 2 01/03/24 10:04 Pertinent Lab Results Pertinent Lab Results: Laboratory Tests 12/16/23 12/23/23 12/28/23 11:42 08:42 11:30 WBC 5.5 RBC 4.26 Hgb 11.6 L Hct 35.5 L MCV 83.3 MCH 27.2 MCHC 32.7 RDW 15.8 Plt Count 363 MPV 9.8 Immature Gran % (Auto) 0.5 H Neut % (Auto) 63.1 Lymph % (Auto) 24.2 Forest % (Auto) 9.9 Eos % (Auto) 1.8 Baso % (Auto) 0.5 Lymph # (Auto) 1.3 Forest # (Auto) 0.6 Eos # (Auto) 0.1 Baso # (Auto) 0.0 Abs Immat Gran (auto) 0.03 Absolute Neuts (auto) 3.5 Absolute Nucleated RBC 0.000 Nucleated RBC % (auto) 0.0 Sodium 141 Potassium 3.4 Chloride 104 Carbon Dioxide 26 Anion Gap 14 BUN 4 L Creatinine 0.64 Estim Creat Clear Calc 117.8 Estimated GFR > 60 Fasting Glucose 101 H Calcium 9.8 Total Bilirubin 0.5 AST 18 ALT 15 Alkaline Phosphatase 70 Total Protein 6.8 Albumin 3.9 Urine Color Yellow Urine Appearance Cloudy Urine pH 7.0 Ur Specific [place] 1.010 Urine Protein Negative Urine Glucose (UA) Negative Urine Ketones Negative Urine Blood Negative Urine Nitrite Positive H Ur Leukocyte Esterase Trace H Urine RBC 0-2 Urine WBC 0-5 Ur Squamous Epith Cells 6-10 Urine Bacteria 4+ Hyaline Casts 0-2 Urine Test NEGATIVE NEGATIVE Urine Opiates Screen Not Detected Ur Buprenorphine Scrn Not Detected Ur Oxycodone Screen Not Detected Urine Methadone Screen Not Detected Urine Fentanyl Screen Not Detected Ur Barbiturates Screen Not Detected Ur Phencyclidine Scrn Not Detected Ur Amphetamines Screen Not Detected U Benzodiazepines Scrn Not Detected Urine Cocaine Screen Not Detected U Marijuana (THC) Screen Not Detected 01/05/24 09:29 WBC RBC Hgb Hct MCV MCH MCHC RDW Plt Count MPV Immature Gran % (Auto) Neut % (Auto) Lymph % (Auto) [place] % (Auto) Eos % (Auto) Baso % (Auto) Lymph # (Auto) [place] # (Auto) Eos # (Auto) Baso # (Auto) Abs Immat Gran (auto) Absolute Neuts (auto) 5.7 Absolute Nucleated RBC Nucleated RBC % (auto) Sodium Potassium Chloride Carbon Dioxide Anion Gap BUN Creatinine Estim Creat Clear Calc Estimated GFR Fasting Glucose Calcium Total Bilirubin AST ALT Alkaline Phosphatase Total Protein Albumin Urine Color Urine Appearance Urine pH Ur Specific [place] Urine Protein Urine Glucose (UA) Urine Ketones Urine Blood Urine Nitrite Ur Leukocyte Esterase Urine RBC Urine WBC Ur Squamous Epith Cells Urine Bacteria Hyaline Casts Urine Test Urine Opiates Screen Ur Buprenorphine Scrn Ur Oxycodone Screen Urine Methadone Screen Urine Fentanyl Screen Ur Barbiturates Screen Ur Phencyclidine Scrn Ur Amphetamines Screen U Benzodiazepines Scrn Urine Cocaine Screen U Marijuana (THC) Screen Airway Mallampati Class: II TM Dist: >3cm Neck ROM: Full Heart: rrr Lungs: cta Assessment and Plan Assessment Anesthesia Assessment: Anesthesia Plan Discussed and Chart Reviewed Final Anesthetic Review Family History of Problems with Anesthesia: No History of Problems with Anesthesia: No NPO: Yes ASA Class: III Final Preanesthetic Review: No Changes in Pt Med Stat, Meds/Allgs Chart Reviewed and Consent Obtained/Reviewed Patient Risk: Low Procedure Risk: Intermediate Anesthetic Plan Anesthetic Plan: GA Disposition: Standard PACU
--- NOTE | 2024-01-06 06:59 | MHC.SHP ---
Pre-Procedural Eval Section A - 24 Hr Update-Section A only Date of Service: 01/06/24 The patient is an INPATIENT: Yes Changes since office visit: No Cold of Flu in the past 2 weeks, No New Medical Problems, No Changes in Medication and No Patient answered all questions The patient has been examined within 24 hours of the surgical procedure. The History & Physical has been completed within 30 days and I have reviewed it.: Yes Section B - Complete if H&P > 30 days Chief Complaint: Psychosis Allergies: Allergies Allergy/AdvReac Type Severity Reaction Status Date / Time haloperidol AdvReac EPS Verified 12/15/23 19:33 metoprolol AdvReac Diarrhea Verified 12/15/23 19:33 Plan I have reviewed the history and physical and performed a pertinent physical examination on my patient. No changes have occurred unless specified. Time Spent With Patient Time: Total time managing care of this patient today ____ minutes.
--- NOTE | 2024-01-06 07:16 | HO.ECTPROC ---
ECT Procedure Note Diagnosis/Treatment Date of Service: 01/06/24 Diagnosis: Catatonia and Schizoaffective Disorder Previous ECT Date: 01/03/24 Current Treatment Number: 6 Interval Clinical Notes: much improved and nearly back to regular self; no AVH, no delusional thinking; organized in behavior and speech, attending to ADL's Time: Total time managing care of this patient today ____ minutes. ECT Settings Device: THYMATRON DGx Electrode Placement: Bitemporal Program/Pulse Width: 0.25 Energy Percent: 35 Seizure Duration By EEG (in seconds): 99 Medications Administration General Anesthetic: Etomidate (14) Muscle Relaxant: Succinylcholine (80) Ancillary Medications Anti-emetics: Zofran - Pre ECT Cardiovascular Medications: Esmolol (10mg post ect) Miscillaneous Medications: Propofol (30mg post ECT) Airway Management Airway Management: Bag Mask Ventilation Treatment Recommendations Electrode Placement: Right Unilateral Program/Pulse Width: 0.25 Energy Percent: 35 Notes: long seizure needing propofol to break pt much improved and nearly back to baseline Recommend switching to Right Unilateral given duration/intensity of seizure (during bitemporal) and significant clinical improvement. Pt Tolerated Procedure w/o Issue: Yes
--- NOTE | 2024-01-06 07:42 | P.PNPSI_ITS ---
Subjective Subjective Date of Service: 01/06/24 Reason For Visit: Psychosis Interim History: met with patient; discussed with team; administrated ECT pt remains nearly back to regular self; denies any AH and no delusional content. She is eager to dc on Sat and agrees to continued tx plan; tolerated Clozapine last night and slept well. Mental Status Exam Mental Status Exam Narrative: Pt is alert and oriented; behavior is cooperative, friendly and calm and mostly fully organized; patient is not in distress; dressed in casual attire with adequate hygiene; mood is described as good and affect congruent; eye contact appropriate; Speech is normal rate, volume and prosody and not pressured; no psychomotor agitation/retardation present; thought process is organized and goal directed; Thought content is on tx; otherwise pertinent to relevant topics and without any delusional content, paranoid ideations or grandiosity; denies any SI/HI. There is no evidence of perceptual disturbance. Patients insight and judgment appear intact. Diagnostics Vital Signs (24Hr): Vital Signs - 24 hr 01/05/24 07:43 01/05/24 20:00 01/06/24 06:29 Temperature 97.4 F 97.7 F Pulse Rate 84 109 H Respiratory Rate 16 16 Blood Pressure 117/77 124/77 Pulse Oximetry 100 100 Oxygen Delivery Method Room Air Room Air Oxygen Flow Rate 01/06/24 06:34 01/06/24 07:37 Temperature 97.2 F 98 F Pulse Rate 99 85 Respiratory Rate 18 16 Blood Pressure 113/81 109/49 L Pulse Oximetry 100 98 Oxygen Delivery Method Room Air Nasal Cannula Oxygen Flow Rate 2 BMI result Body Mass Index 29.0 Labs 12/23/23 08:42 12/23/23 08:42 Labs: Laboratory Results - last 48 hr 01/05/24 09:29 Absolute Neuts (auto) 5.7 Imaging Radiology Impressions: ITS Impressions Lumbar Spine X-Ray 12/28/23 21:40 IMPRESSION: No acute fracture of the lumbar spine or sacrum. Sacrum and Coccyx X-Ray 12/28/23 21:40 IMPRESSION: No acute fracture of the lumbar spine or sacrum. Medications Medications Current Medications Acetaminophen (Acetaminophen 325 Mg Tablet) 650 mg PO Q6H PRN PRN Reason: Headache/Pain Mild Scale (1-3) Last Admin: 01/05/24 07:22 Dose: 650 mg Al Hydroxide/Mg Hydroxide (Magnesium Hydrox/Alum Hydrox 30 Ml Oral.Susp) 30 ml PO Q6H PRN PRN Reason: Heartburn/Nausea Aripiprazole (Aripiprazole 5 Mg Tablet) 5 mg PO BEDTIME [facility] Last Admin: 01/05/24 20:29 Dose: 5 mg Clonidine HCl (Clonidine Hcl 0.1 Mg Tablet) 0.1 mg PO Q4H PRN; Protocol PRN Reason: mild anxiety (try 1st) Last Admin: 01/04/24 13:39 Dose: 0.1 mg Clozapine (Clozapine 25 Mg Tablet) 25 mg PO BEDTIME KRISTI Last Admin: 01/05/24 20:29 Dose: 25 mg Hydroxyzine HCl (Hydroxyzine Hcl 25 Mg Tablet) 25 mg PO Q6H PRN PRN Reason: Anxiety Last Admin: 01/02/24 18:18 Dose: 25 mg Lactated Ringer's (Lr) 1,000 mls @ 50 mls/hr IVCONT .Q20H KRISTI Lorazepam (Lorazepam 1 Mg Tablet) 1 mg PO MOWEFR KRISTI Last Admin: 01/06/24 06:18 Dose: 1 mg Lorazepam (Lorazepam 0.5 Mg Tablet) 0.5 mg PO TID KRISTI Last Admin: 01/05/24 20:29 Dose: 0.5 mg Magnesium Hydroxide (Milk Of Magnesia 30 Ml Oral.Susp) 30 ml PO DAILY PRN PRN Reason: Constipation Last Admin: 12/28/23 13:26 Dose: 30 ml Ondansetron HCl (Ondansetron Odt 4 Mg Tab.Rapdis) 4 mg TRANSLINGU Q6H PRN PRN Reason: Nausea And Vomiting Last Admin: 01/02/24 19:44 Dose: 4 mg Trazodone HCl (Trazodone Hcl 50 Mg Tablet) 50 mg PO BEDTIME MRX1 PRN PRN Reason: Insomnia Last Admin: 01/05/24 20:29 Dose: 50 mg Allergies Allergies Allergy/AdvReac Type Severity Reaction Status Date / Time haloperidol AdvReac EPS Verified 12/15/23 19:33 metoprolol AdvReac Diarrhea Verified 12/15/23 19:33 Assessment & Plan Assessment & Plan (1) Schizoaffective disorder: Status: Acute Code(s): F25.9 - Schizoaffective disorder, unspecified Assessment and Plan: ongoing disorganinzation believes she is or giving (not sure she understands what my water broke means) (2) Catatonia: Status: Acute Code(s): F06.1 - Catatonic disorder due to known physiological condition Plan Patient is a 23 year old female with hx of schizoaffective d/o who was recently discharged from on 12/04/23 who presented to ER d/t suicidal ideation secondary to worsening depression and auditory hallucinations instructing her to harm herself. Formulation/clinical reasoning: Patient soon returns to the unit, with return of psychotic delirium and catatonic symptoms which fully resolved during last admission a few weeks ago once she got ECT. Accepted ECT on 12/17 however refused it on 12/19. Will continue to schedule ECT MWF as patient does continue to have moments where she is intermittently lucid enough and wants ECT to make auditory hallucinations to go away. Patient was also getting ECT as an outpatient until very recently. Healthcare proxy invoked; pending affirmation Hospital course: 12/17: pt had ECT this morning. Continue current tx plan. 12/18 restarted lorazepam for catatonic like sx periods agitation more active today pt very disorganized 12/19 completely disorganized; refused ECT today; refusing meds Patient having difficulty integrating information at this time healthcare proxy was invoked and informed consent for ECT was obtained from the patient's mother who is healthcare proxy; anesthesia also obtained informed consent the patient was agreeable to admission and is agreeing to ECT 12/21/23: No changes. Continue to encourage ECT, next scheduled on Saturday12/23/202312/21: No changes. Continue to encourage 12/22 pt remains psychotic, disorganized in speech and behavior and w/ catatonic symptoms. She consented to ECT which she received. 12/23 Yesterday later on patient did eat meal with her mother; later in the evening patient started talking more freely and asked why she was in the hospital and what was her diagnosis. Today patient is talking more. She remains disorganized in speech and behavior and initially asked television writer if she is in trouble, which she has been asking peers and staff, under the delusion that she has committed some crime. She seems to understand that ECT has been helpful and will reduce auditory hallucinations. Patient later continued to come to television writer and ask if she was or tell television writer that she is , not accepting negative lab results 12/24 no change in presentation; will continue to offer ECT; last time, this was the essential treatment and very likely remains so Later on in the day, patient asked multiple staff if she could talk to this television writer. She said you're Dr. Smith, right? and said she remembers working w/ television writer at last admission. She remembers that she got ECT and that it helped take away the auditory hallucinations. She then asked if she can get it now but accepted that she'll have to wait till Sat for treatment to which she said ok. 12/25 remains disorganized and with paranoid delusions and AH. However she is talking more, eating a little and drinking more, and has some improved insight, remembering and wanting ECT. Today, patient came up to television writer and apologized; she reported auditory hallucinations are telling her she was born by mistake... She again discussed ECT remembered that it helped with auditory hallucinations; she explained that she is hearing voices and asked what day she can get ECT again; she understood next treatment will be tomorrow morning to which she said okay. 12/26 patient had ECT today; patient talking more and though still disorganized, less so; wanted to take a shower; later on said she was continue with ECT since it helps with voices. Still struggling with paranoid delusions but redirectable. Taking Ativan and Abilify. 12/28/23 CTP - check uhcg 12/29/23- ECT tomorrow, uhcg negative again- nursing looking into bcp from prior admit 12/29 Patient did receive ECT today. She is also more organized in speech behavior. Still with significant thought blocking/delayed response and walking quite slowly, stumbling a little however patient denies AVH and paranoid delusions; she does not remember anything from the past weeks and was surprised to hear that she had a return of her manic/psychotic episode. However she was grateful to hear that ECT is helping. She asked how much will it help? and television writer provided education. -discussed case with Dr. Ackerman regarding ECT and who suggests lowering energy% to 30% or 40% given continue long seizure -although patient is doing better today, even yesterday she still had paranoid delusions and AH; her clarity waxes and wanes and she is prone to regression. Patient will very likely need numerous more ECT treatments to regain stability. Will continue to proceed with healthcare proxy affirmation as patient judgment/insight is fragile and improvement ephemeral 12/30 today patient returns to disorganized speech and behavior, AH and paranoid delusions; continues with catatonic symptoms -continue with ECT 12/31 remains with AH and some passive SI, but a little more organized today; agrees to remain for ECT -wondering about whether to continue Abilify as not sure it helps much -continue Ativan for Catatonic symptoms 01/01 Patient talking much more clearly (though still some thought blocking) and vocally out loud in the milieu addressed television writer by marcial and asked to talk. She wanted to know about when she could go home; discussed her symptoms and she denies AH or any delusional thinking; she says she does not remember any of it however, her disorganization, paranoid delusions... She agrees to remain on the unit for continued ECT as it was discontinued too early last admission with return of symptoms. -will start to decrease and then taper off Ativan 01/02 much improved and nearly back to regular self; discussed medications and she's fine to come of Abilfy and switch to something else. Agrees to continue ECT 01/03 Patient continues to do much better. She has not totally back to her regular self and still needed some guidance when taking a shower; however she is talking clearly, organized in speech and behavior and doing much better. Discussed medication and she agrees that Abilify has not made much difference. [employer] discussed case with Tyron and last week Dr. Méndez who both agree that given patient's psychotic delirium, catatonia and failed medication trials that clozapine is likely necessary to try. Discussed this with patient, reviewing risks/side effects and weekly blood draws and patient agrees with plan to start this medication. 01/04 both mom and patient agree with continue with clozapine after reviewing risks/side effects with both. Patient doing very well and pretty much back to her regular self -ECT on Saturday and Saturday; likely discharge Saturday but continue ECT the following week on Saturday; will then reassess ANC [id number] on 01/04 01/05 remains doing well; tolerating clozapine; continue with ECT MWF and likely dc this Sat after ECT. -regarding ECT discussed with Dr. Ackerman who agrees with changing to Rt Unliateral since having long seizures on BiTemporal and clinically doing much better. Plan: HCP affirmed CV Continue ECT MWF: Patient improving from ECT in the past and would ask for it since it would help decrease and then eliminate auditory hallucinations; patient may very well again consent start clozapine 25 mg q.h.s. DC Abilify; has not helped Lower to Ativan to 0.5 mg t.i.d. for continued catatonic symptoms which are lessening Ativan 1 mg prior to ECT; will continue given that patient is having prolonged seizures even with Ativan Failed med trials: Zyprexa, Abilify; Vraylar, risperidone, Haldol Patient educated on: diagnosis, medication risk/benefits and ECT Informed Consent: understands Reason for continued inpatient stay Substantial Risk for: rapid decompensation Time Spent With Patient Time: Total time managing care of this patient today ____ minutes.
[2024-01-06] MEDS: LORazepam 0.5 MG TABLET PO ×2 (09:40→17:25)
[2024-01-06] MEDS: Acetaminophen 325 MG TABLET 650 MG PO (20:17)
[2024-01-06] MEDS: cloNIDine HCL 0.1 MG TABLET PO (20:18)
[2024-01-06] MEDS: cloZAPine 25 MG TABLET PO (20:18)
--- NOTE | 2024-01-06 20:56 | PM.EVENT ---
Event Note Date of Service: 01/06/24 Event Note: I was informed that patient with tachycardia in the 120s. Has history of SVT. Obtaining EKG and troponin Time Spent With Patient Time: Total time managing care of this patient today ____ minutes.
[2024-01-06] MEDS: traZODone HCL 50 MG TABLET PO (22:29)
[2024-01-06 22:50] LABS: Troponin-I High Sensitivity < 2.7 ng/L (<3.5-17.0)
--- NOTE | 2024-01-07 07:02 | PC.NURSE ---
At 1955 on 01/07/24, pt c/o jabbing, central chest pain 05/28 starting at 1830. Pt denied anxiety. Pt reported additionally MULLIGAN 04/28 that pt related to her ECT treatment earlier. BP 125/76, 124 radial pulse, with 98% RA. Dr Wright was informed and orders were obtained for EKG, Troponins, and a hospitalist consult. Pt received scheduled medications and PRN Tylenol. Pt reported ongoing discomfort at HS but appeared to sleep well through the night, about 9 hours.
[2024-01-07 08:00] VITALS: BP 109/67; PULSE 100; RESP 16; TEMP 36.5; O2SAT 96
[2024-01-07] MEDS: LORazepam 0.5 MG TABLET PO ×2 (08:34→16:17)
--- NOTE | 2024-01-07 09:06 | ECG_ITS ---
Test Reason : ABNORMAL EKG F/U Blood Pressure : / mmHG Vent. Rate : 086 BPM Atrial Rate : 086 BPM P-R Int : 164 ms QRS Dur : 094 ms QT Int : 354 ms P-R-T Axes : 035 063 045 degrees QTc Int : 423 ms Normal sinus rhythm Normal ECG When compared with ECG of 06-JAN-2024 21:33, No significant change was found Referred By: Michelle Gary Electronically Signed By:Aníbal Montez
--- NOTE | 2024-01-07 09:39 | P.PNPSI_ITS ---
Subjective Subjective Date of Service: 01/07/24 Reason For Visit: Psychosis Interim History: Met with patient; discussed with team Patient remained stable, back to her regular self. Will get ECT tomorrow and then proceed with discharge as planned. Discussed case with Dr. Ackerman Mental Status Exam Mental Status Exam Narrative: Pt is alert and oriented; behavior is cooperative, friendly and calm and mostly fully organized; patient is not in distress; dressed in casual attire with adequate hygiene; mood is described as good and affect congruent; eye contact appropriate; Speech is normal rate, volume and prosody and not pressured; no psychomotor agitation/retardation present; thought process is organized and goal directed; Thought content is on tx; otherwise pertinent to relevant topics and without any delusional content, paranoid ideations or grandiosity; denies any SI/HI. There is no evidence of perceptual disturbance. Patients insight and judgment appear intact. Diagnostics Vital Signs (24Hr): Vital Signs - 24 hr 01/06/24 19:55 01/06/24 20:00 01/07/24 08:00 Temperature 97.9 F 97.7 F Pulse Rate 124 H 120 H 100 Respiratory Rate 16 Blood Pressure 125/76 133/69 109/67 Pulse Oximetry 98 96 Oxygen Delivery Method Room Air Room Air BMI result Body Mass Index 29.0 Labs 01/07/24 10:46 01/07/24 10:46 Labs: Laboratory Results - last 48 hr 01/05/24 01/06/24 09:29 22:15 Absolute Neuts (auto) 5.7 Troponin I High Sens < 2.7 Imaging Radiology Impressions: ITS Impressions Lumbar Spine X-Ray 12/28/23 21:40 IMPRESSION: No acute fracture of the lumbar spine or sacrum. Sacrum and Coccyx X-Ray 12/28/23 21:40 IMPRESSION: No acute fracture of the lumbar spine or sacrum. Medications Medications Current Medications Acetaminophen (Acetaminophen 325 Mg Tablet) 650 mg PO Q6H PRN PRN Reason: Headache/Pain Mild Scale (1-3) Last Admin: 01/06/24 20:17 Dose: 650 mg Al Hydroxide/Mg Hydroxide (Magnesium Hydrox/Alum Hydrox 30 Ml Oral.Susp) 30 ml PO Q6H PRN PRN Reason: Heartburn/Nausea Clonidine HCl (Clonidine Hcl 0.1 Mg Tablet) 0.1 mg PO Q4H PRN; Protocol PRN Reason: mild anxiety (try 1st) Last Admin: 01/06/24 20:18 Dose: 0.1 mg Clozapine (Clozapine 25 Mg Tablet) 25 mg PO BEDTIME KRITSI Last Admin: 01/06/24 20:18 Dose: 25 mg Hydroxyzine HCl (Hydroxyzine Hcl 25 Mg Tablet) 25 mg PO Q6H PRN PRN Reason: Anxiety Last Admin: 01/02/24 18:18 Dose: 25 mg Lorazepam (Lorazepam 0.5 Mg Tablet) 0.5 mg PO BID@0900,1700 KRISTI Last Admin: 01/07/24 08:34 Dose: 0.5 mg Magnesium Hydroxide (Milk Of Magnesia 30 Ml Oral.Susp) 30 ml PO DAILY PRN PRN Reason: Constipation Last Admin: 12/28/23 13:26 Dose: 30 ml Ondansetron HCl (Ondansetron Odt 4 Mg Tab.Rapdis) 4 mg TRANSLINGU Q6H PRN PRN Reason: Nausea And Vomiting Last Admin: 01/02/24 19:44 Dose: 4 mg Trazodone HCl (Trazodone Hcl 50 Mg Tablet) 50 mg PO BEDTIME MRX1 PRN PRN Reason: Insomnia Last Admin: 01/06/24 22:29 Dose: 50 mg Allergies Allergies Allergy/AdvReac Type Severity Reaction Status Date / Time haloperidol AdvReac EPS Verified 12/15/23 19:33 metoprolol AdvReac Diarrhea Verified 12/15/23 19:33 Assessment & Plan Assessment & Plan (1) Schizoaffective disorder: Status: Acute Code(s): F25.9 - Schizoaffective disorder, unspecified Assessment and Plan: ongoing disorganinzation believes she is or giving (not sure she understands what my water broke means) (2) Catatonia: Status: Acute Code(s): F06.1 - Catatonic disorder due to known physiological condition Plan Patient is a 23 year old female with hx of schizoaffective d/o who was recently discharged from on 12/04/23 who presented to ER d/t suicidal ideation secondary to worsening depression and auditory hallucinations instructing her to harm herself. Formulation/clinical reasoning: Patient soon returns to the unit, with return of psychotic delirium and catatonic symptoms which fully resolved during last admission a few weeks ago once she got ECT. Accepted ECT on 12/17 however refused it on 12/19. Will continue to schedule ECT MWF as patient does continue to have moments where she is intermittently lucid enough and wants ECT to make auditory hallucinations to go away. Patient was also getting ECT as an outpatient until very recently. Healthcare proxy invoked; pending affirmation Hospital course: 12/17: pt had ECT this morning. Continue current tx plan. 12/18 restarted lorazepam for catatonic like sx periods agitation more active today pt very disorganized 12/19 completely disorganized; refused ECT today; refusing meds Patient having difficulty integrating information at this time healthcare proxy was invoked and informed consent for ECT was obtained from the patient's mother who is healthcare proxy; anesthesia also obtained informed consent the patient was agreeable to admission and is agreeing to ECT 12/21/23: No changes. Continue to encourage ECT, next scheduled on Saturday12/23/202312/21: No changes. Continue to encourage 12/22 pt remains psychotic, disorganized in speech and behavior and w/ catatonic symptoms. She consented to ECT which she received. 12/23 Yesterday later on patient did eat meal with her mother; later in the evening patient started talking more freely and asked why she was in the hospital and what was her diagnosis. Today patient is talking more. She remains disorganized in speech and behavior and initially asked administrative underwriter if she is in trouble, which she has been asking peers and staff, under the delusion that she has committed some crime. She seems to understand that ECT has been helpful and will reduce auditory hallucinations. Patient later continued to come to administrative underwriter and ask if she was or tell administrative underwriter that she is , not accepting negative lab results 12/24 no change in presentation; will continue to offer ECT; last time, this was the essential treatment and very likely remains so Later on in the day, patient asked multiple staff if she could talk to this administrative underwriter. She said you're Dr. Smith, right? and said she remembers working w/ administrative underwriter at last admission. She remembers that she got ECT and that it helped take away the auditory hallucinations. She then asked if she can get it now but accepted that she'll have to wait till Sat for treatment to which she said ok. 12/25 remains disorganized and with paranoid delusions and AH. However she is talking more, eating a little and drinking more, and has some improved insight, remembering and wanting ECT. Today, patient came up to administrative underwriter and apologized; she reported auditory hallucinations are telling her she was born by mistake... She again discussed ECT remembered that it helped with auditory hallucinations; she explained that she is hearing voices and asked what day she can get ECT again; she understood next treatment will be tomorrow morning to which she said okay. 12/26 patient had ECT today; patient talking more and though still disorganized, less so; wanted to take a shower; later on said she was continue with ECT since it helps with voices. Still struggling with paranoid delusions but redirectable. Taking Ativan and Abilify. 12/28/23 CTP - check uhcg 12[facility] into [facility] from prior admit 12/29 Patient did receive ECT today. She is also more organized in speech behavior. Still with significant thought blocking/delayed response and walking quite slowly, stumbling a little however patient denies AVH and paranoid delusions; she does not remember anything from the past weeks and was surprised to hear that she had a return of her manic/psychotic episode. However she was grateful to hear that ECT is helping. She asked how much will it help? and administrative underwriter provided education. -discussed case with Dr. Ackerman regarding ECT and who suggests lowering energy% to 30% or 40% given continue long seizure -although patient is doing better today, even yesterday she still had paranoid delusions and AH; her clarity waxes and wanes and she is prone to regression. Patient will very likely need numerous more ECT treatments to regain stability. Will continue to proceed with healthcare proxy affirmation as patient judgment/insight is fragile and improvement ephemeral 12/30 today patient returns to disorganized speech and behavior, AH and paranoid delusions; continues with catatonic symptoms -continue with ECT 12/31 remains with AH and some passive SI, but a little more organized today; agrees to remain for ECT -wondering about whether to continue Abilify as not sure it helps much -continue Ativan for Catatonic symptoms 01/01 Patient talking much more clearly (though still some thought blocking) and vocally out loud in the milieu addressed administrative underwriter by marcial and asked to talk. She wanted to know about when she could go home; discussed her symptoms and she denies AH or any delusional thinking; she says she does not remember any of it however, her disorganization, paranoid delusions... She agrees to remain on the unit for continued ECT as it was discontinued too early last admission with return of symptoms. -will start to decrease and then taper off Ativan 01/02 much improved and nearly back to regular self; discussed medications and she's fine to come of Abilfy and switch to something else. Agrees to continue ECT 01/03 Patient continues to do much better. She has not totally back to her regular self and still needed some guidance when taking a shower; however she is talking clearly, organized in speech and behavior and doing much better. Discussed medication and she agrees that Abilify has not made much difference. Diesel Mechanic discussed case with Tyron and last week Dr. Méndez who both agree that given patient's psychotic delirium, catatonia and failed medication trials that clozapine is likely necessary to try. Discussed this with patient, reviewing risks/side effects and weekly blood draws and patient agrees with plan to start this medication. 01/04 both mom and patient agree with continue with clozapine after reviewing risks/side effects with both. Patient doing very well and pretty much back to her regular self -ECT on Saturday and Saturday; likely discharge Saturday but continue ECT the following week on Saturday; will then reassess ANC 5700 on 01/04 01/05 remains doing well; tolerating clozapine; continue with ECT MWF and likely dc this Sat after ECT. -regarding ECT discussed with Dr. Ackerman who agrees with changing to Rt Unliateral since having long seizures on BiTemporal and clinically doing much better. 01/06 patient remained stable; will get ECT tomorrow and then proceed with discharge. Diesel Mechanic reviewed chart from last admission and this admission and summarized below, concluding that patient will continue to need ECT 3 times a week for now. -as clozapine is titrated and becomes a therapeutic dose, hopefully patient will need ECT less unless and then it can be discontinued During her 1st admission from 10/10 - 12/03, patient Got ECT x5 (MWF) starting on 11/19 to 11/28 (Sat). ? However, she missed the next Saturday, 12/01; she then got ECT on 12/03(Saturday) and was discharged to outpatient ECT.? However ?she missed the next treatment that Saturday, 12/05.? She got ECT the following Friday 12/08 but that was it (7 total). She then decompensated and was readmitted 8 days later on 12/16 This admission, ECT / ECT 12/22 ECT 12/26 ECT 12/29 ECT 01/04 ECT 01/05 Again patient became mostly stable after about 5-6 ECT treatments; however based on last admission, it seems to take more consistent treatments for her to remain stable. Patient will receive ECT on 01/07 which will be the 7th ECT treatment. She will continue to get ECT 4 more times, starting this Tuesday 01/09 as an outpatient which will bring her a total of 11 ECT treatments. After that, will reassess; likely will then go to once a week as clozapine is titrated. Plan: HCP affirmed CV Continue ECT MWF: As an outpatient Increase clozapine 50 mg q.h.s. JOSE ANTONIO Ritchie; has not helped Lower to Ativan to 0.5 mg t.i.d. for continued catatonic symptoms which are lessening Ativan 1 mg prior to ECT; will continue given that patient is having prolonged seizures even with Ativan Failed med trials: ZyprexaChau; Vraylar, risperidone, Haldol Patient educated on: diagnosis, medication risk/benefits and ECT Informed Consent: understands Reason for continued inpatient stay Substantial Risk for: stable for discharge Time Spent With Patient Time: Total time managing care of this patient today ____ minutes.
--- NOTE | 2024-01-07 09:45 | PC.NURSE ---
ECG obtained (NSR) and results forwarded to ordering provider Michelle RAMAN, and covering provider Dr. Smith.
[2024-01-07 10:51] LABS: MANUAL DIFF FLAG NO
[2024-01-07 10:54] LABS: Basophils Absolute Auto 0.1 X10*3/uL (0.0-0.2); Basophils Percent Auto 0.7 % (0-2); Eosinophils Absolute Auto 0.1 X10*3/uL (0.0-0.4); Eosinophils Percent Auto 1.2 % (0-4); Hematocrit 38.1 % (37.0-47.0); Hemoglobin 12.1 g/dl (12.0-16.0); Imm Gran Abs Auto 0.03 X10*3/uL (0.00-0.03); Imm Gran Pct Auto 0.4 % (0.0-0.4); Lymphocytes Absolute Auto 1.7 X10*3/uL (1.2-4.9); Lymphocytes Percent Auto 25.6 % (20-40); Mean Corpuscular HGB Conc 31.8 g/dl (31.0-35.0); Mean Corpuscular Hemoglobin 26.8 pg (27.0-33.0); Mean Corpuscular Volume 84.5 fL (80.0-98.0); Mean Platelet Volume 9.7 fL (9.4-12.3); Monocytes Absolute Auto 0.4 X10*3/uL (0.1-1.2); Monocytes Percent Auto 6.4 % (2-11); Neutrophils Absolute Auto 4.4 x10*3/uL (2.0-8.3); Neutrophils Percent Auto 65.7 % (45-73); Platelet Count 402 X10*3/uL (160-400); Red Blood Count 4.51 X10*6/uL (4.20-5.50); Red Cell Distribution Width 15.8 % (11.0-16.0); White Blood Count 6.7 X10*3/uL (4.8-10.8)
[2024-01-07 11:03] LABS: D Dimer High Sensitivity < 150 NG/ML
[2024-01-07 11:14] LABS: Anion Gap 13 (12-20); Blood Urea Nitrogen 9 mg/dL (9-16); Calcium 9.7 mg/dL (8.4-10.2); Carbon Dioxide 26 mmol/L (22-29); Chloride 106 mmol/L (96-108); Creatinine Clr Calc Pharmacy 104.3; Estimated Glomerular Filt Rate > 60; Glucose Random 99 mg/dL (60-115); Magnesium 1.9 mg/dL (1.6-2.6); Potassium 4.2 mmol/L (3.3-5.1); Sodium 141 mmol/L (135-145)
[2024-01-07 11:26] LABS: TSH reflex Free T4 1.22 uIU/mL (0.32-4.0)
--- NOTE | 2024-01-07 14:54 | HO.POSTANES ---
Post Anesthesia Evaluation Post Anesthesia Evaluation Date of Service: 01/06/24 Vital Signs: Vital Signs Temp Pulse Resp BP Pulse Ox O2 Del Method 01/07/24 08:00 97.7 F 100 16 109/67 96 Room Air Anesthesia: General Mental Status: Awake Pain Control: Satisfactory Nausea/Vomiting: None Hydration: Adequate Anesthesia-Related Issues: No Anes. Related Issues
[2024-01-07] MEDS: Acetaminophen 325 MG TABLET 650 MG PO (16:16)
[2024-01-07] MEDS: cloZAPine 25 MG TABLET 50 MG PO (19:34)
[2024-01-07 20:00] VITALS: BP 125/72; PULSE 135; RESP 17; TEMP 36.4; O2SAT 97
[2024-01-08] VITALS (8 sets, daily range): BP systolic 99–134; BP diastolic 56–79; PULSE 93–118; RESP 16–23; TEMP 36.5–37.2; O2SAT 98–100
--- NOTE | 2024-01-08 06:42 | MHC.SHP ---
Pre-Procedural Eval Section A - 24 Hr Update-Section A only Date of Service: 01/08/24 The patient is an INPATIENT: Yes Changes since office visit: No Cold of Flu in the past 2 weeks, No New Medical Problems, No Changes in Medication and No Patient answered all questions The patient has been examined within 24 hours of the surgical procedure. The History & Physical has been completed within 30 days and I have reviewed it.: Yes Section B - Complete if H&P > 30 days Chief Complaint: Psychosis Details of Present Illness: significantly better, back to baseline Relevant Family History (Specify if Yes): No Allergies: Allergies Allergy/AdvReac Type Severity Reaction Status Date / Time haloperidol AdvReac EPS Verified 12/15/23 19:33 metoprolol AdvReac Diarrhea Verified 12/15/23 19:33 Exam Surgical H&P Exam: Normal: HEENT Plan Diagnosis/Plan: Change (switching to Rt Unliateral) I have reviewed the history and physical and performed a pertinent physical examination on my patient. No changes have occurred unless specified. Time Spent With Patient Time: Total time managing care of this patient today ____ minutes.
--- NOTE | 2024-01-08 06:44 | HO.ECTPROC ---
ECT Procedure Note Diagnosis/Treatment Date of Service: 01/08/24 Diagnosis: Bipolar disorder and Catatonia Previous ECT Date: 01/06/24 Current Treatment Number: 7 Treatment: Series Interval Clinical Notes: significantly improved with ECT; back to baseline. Switching to Rt. Unlateral Time: Total time managing care of this patient today ____ minutes. ECT Settings Device: THYMATRON DGx Electrode Placement: Right Unilateral Program/Pulse Width: 0.25 Energy Percent: 35 Seizure Duration By EEG (in seconds): 95 Medications Administration General Anesthetic: Etomidate (14) Muscle Relaxant: Succinylcholine (80) Ancillary Medications Anti-emetics: Zofran - Pre ECT Cardiovascular Medications: Esmolol (20) Miscillaneous Medications: Propofol (30) Airway Management Airway Management: Bag Mask Ventilation Treatment Recommendations No Changes Recommended: No change Electrode Placement: Right Unilateral Program/Pulse Width: 0.25 Energy Percent: 35 Notes: pt doing well, back to baseline Today did Rt. Unlateral since patient has significantly improved (switched from Bi-temporal); she still had robust seizure pt received Esmolol 20mg pt required Propofol 30mg to break seizure PLAN: Continue ECT series for 4 more treatments; will then assess if pt ready to go to ECT 1/week Pt Tolerated Procedure w/o Issue: Yes
--- NOTE | 2024-01-08 06:51 | HO.ANESPROP2 ---
[facility] Active Problems Active Problems: All Active Problems Catatonia (Acute) Auditory hallucination (Acute) Bipolar disorder in remission (Acute) Pre-op evaluation (Acute) Supraventricular tachycardia (Acute) Schizoaffective disorder (Acute) Intellectual disability (Acute) Major depressive disorder, recurrent episode, severe, with psychosis (Chronic) Contraception management (Acute) Vitamin D deficiency (Acute) Vitamin B12 deficiency (Acute) Uses control (Acute) Supraventricular tachycardia by ECG (Acute) Migraine (Acute) Past Medical History Medical History Bipolar disorder in remission Supraventricular tachycardia Schizoaffective disorder Intellectual disability Contraception management Vitamin D deficiency Vitamin B12 deficiency Uses control Hx of ovarian cyst Epigastric abdominal pain Orthostatic hypotension Supraventricular tachycardia by ECG Left ovarian cyst Migraine Family History Family History Mother Bipolar disorder Mental health disorder Family history of problems with anesthesia: No Surgical History Surgical History H/O removal of cyst History of Problems with Anesthesia: No Social History Social History Household Members: Family Household Members Other:: Pt unable to answer questions d/t mental status. Housing: House Housing Other:: at home with mother Are you a primary career development coordinator/teacher to a significant other at home: No Alcohol intake: never Comment: 1:1 sitter Patient Tobacco Use Status: Never used Tobacco e-Cigarette/Vaping Use: Never Used Second Hand Smoke Exposure: No Substance Use Type: Unknown Advance Directives Date on File: 12/10/23 service: No Current occupational status: unemployed Sexual orientation: Straight/Heterosexual Gender identity: Female Cognitive needs: No Hearing needs: No Vision needs: No Meds Allergies Allergy/AdvReac Type Severity Reaction Status Date / Time haloperidol AdvReac EPS Verified 12/15/23 19:33 metoprolol AdvReac Diarrhea Verified 12/15/23 19:33 Active Medications: Current Medications Acetaminophen (Acetaminophen 325 Mg Tablet) 650 mg PO Q6H PRN PRN Reason: Headache/Pain Mild Scale (1-3) Last Admin: 01/07/24 16:16 Dose: 650 mg Al Hydroxide/Mg Hydroxide (Magnesium Hydrox/Alum Hydrox 30 Ml Oral.Susp) 30 ml PO Q6H PRN PRN Reason: Heartburn/Nausea Clonidine HCl (Clonidine Hcl 0.1 Mg Tablet) 0.1 mg PO Q4H PRN; Protocol PRN Reason: mild anxiety (try 1st) Last Admin: 01/06/24 20:18 Dose: 0.1 mg Clozapine (Clozapine 25 Mg Tablet) 50 mg PO BEDTIME KRISTI Last Admin: 01/07/24 19:34 Dose: 50 mg Hydroxyzine HCl (Hydroxyzine Hcl 25 Mg Tablet) 25 mg PO Q6H PRN PRN Reason: Anxiety Last Admin: 01/02/24 18:18 Dose: 25 mg Lorazepam (Lorazepam 0.5 Mg Tablet) 0.5 mg PO BID@0900,1700 [facility] Last Admin: 01/07/24 16:17 Dose: 0.5 mg Magnesium Hydroxide (Milk Of Magnesia 30 Ml Oral.Susp) 30 ml PO DAILY PRN PRN Reason: Constipation Last Admin: 12/28/23 13:26 Dose: 30 ml Ondansetron HCl (Ondansetron Odt 4 Mg Tab.Rapdis) 4 mg TRANSLINGU Q6H PRN PRN Reason: Nausea And Vomiting Last Admin: 01/02/24 19:44 Dose: 4 mg Trazodone HCl (Trazodone Hcl 50 Mg Tablet) 50 mg PO BEDTIME MRX1 PRN PRN Reason: Insomnia Last Admin: 01/06/24 22:29 Dose: 50 mg Exam Height,Weight and Vital Signs: Height 5 ft Weight 67.3 kg Last Vital Signs Temp 98 F 01/08/24 06:44 Pulse 118 H 01/08/24 06:44 Resp 18 01/08/24 06:44 BP 122/77 01/08/24 06:44 Pulse Ox 100 01/08/24 06:44 O2 Del Method Room Air 01/08/24 06:44 O2 Flow Rate 2 01/06/24 07:47 Pertinent Lab Results Pertinent Lab Results: Laboratory Tests 12/16/23 12/23/23 12/28/23 11:42 08:42 11:30 WBC 5.5 RBC 4.26 Hgb 11.6 L Hct 35.5 L MCV 83.3 MCH 27.2 MCHC 32.7 RDW 15.8 Plt Count 363 MPV 9.8 Immature Gran % (Auto) 0.5 H Neut % (Auto) 63.1 Lymph % (Auto) 24.2 [place] % (Auto) 9.9 Eos % (Auto) 1.8 Baso % (Auto) 0.5 Lymph # (Auto) 1.3 [place] # (Auto) 0.6 Eos # (Auto) 0.1 Baso # (Auto) 0.0 Abs Immat Gran (auto) 0.03 Absolute Neuts (auto) 3.5 Absolute Nucleated RBC 0.000 Nucleated RBC % (auto) 0.0 D-Dimer High Sensitivty Sodium 141 Potassium 3.4 Chloride 104 Carbon Dioxide 26 Anion Gap 14 BUN 4 L Creatinine 0.64 Estim Creat Clear Calc 117.8 Estimated GFR > 60 Random Glucose Fasting Glucose 101 H Calcium 9.8 Magnesium Total Bilirubin 0.5 AST 18 ALT 15 Alkaline Phosphatase 70 Troponin I High Sens Total Protein 6.8 Albumin 3.9 TSH Urine Color Yellow Urine Appearance Cloudy Urine pH 7.0 Ur Specific [place] 1.010 Urine Protein Negative Urine Glucose (UA) Negative Urine Ketones Negative Urine Blood Negative Urine Nitrite Positive H Ur Leukocyte Esterase Trace H Urine RBC 0-2 Urine WBC 0-5 Ur Squamous Epith Cells 6-10 Urine Bacteria 4+ Hyaline Casts 0-2 Urine Test NEGATIVE NEGATIVE Urine Opiates Screen Not Detected Ur Buprenorphine Scrn Not Detected Ur Oxycodone Screen Not Detected Urine Methadone Screen Not Detected Urine Fentanyl Screen Not Detected Ur Barbiturates Screen Not Detected Ur Phencyclidine Scrn Not Detected Ur Amphetamines Screen Not Detected U Benzodiazepines Scrn Not Detected Urine Cocaine Screen Not Detected U Marijuana (THC) Screen Not Detected 01/05/24 01/06/24 01/07/24 09:29 22:15 10:46 WBC 6.7 RBC 4.51 Hgb 12.1 Hct 38.1 MCV 84.5 MCH 26.8 L MCHC 31.8 RDW 15.8 Plt Count 402 H MPV 9.7 Immature Gran % (Auto) 0.4 Neut % (Auto) 65.7 Lymph % (Auto) 25.6 [place] % (Auto) 6.4 Eos % (Auto) 1.2 Baso % (Auto) 0.7 Lymph # (Auto) 1.7 [place] # (Auto) 0.4 Eos # (Auto) 0.1 Baso # (Auto) 0.1 Abs Immat Gran (auto) 0.03 Absolute Neuts (auto) 5.7 4.4 Absolute Nucleated RBC 0.000 Nucleated RBC % (auto) 0.0 D-Dimer High Sensitivty < 150 Sodium 141 Potassium 4.2 D Chloride 106 Carbon Dioxide 26 Anion Gap 13 BUN 9 Creatinine 0.73 Estim Creat Clear Calc 104.3 Estimated GFR > 60 Random Glucose 99 Fasting Glucose Calcium 9.7 Magnesium 1.9 Total Bilirubin AST ALT Alkaline Phosphatase Troponin I High Sens < 2.7 Total Protein Albumin TSH 1.22 Urine Color Urine Appearance Urine pH Ur Specific [place] Urine Protein Urine Glucose (UA) Urine Ketones Urine Blood Urine Nitrite Ur Leukocyte Esterase Urine RBC Urine WBC Ur Squamous Epith Cells Urine Bacteria Hyaline Casts Urine Test Urine Opiates Screen Ur Buprenorphine Scrn Ur Oxycodone Screen Urine Methadone Screen Urine Fentanyl Screen Ur Barbiturates Screen Ur Phencyclidine Scrn Ur Amphetamines Screen U Benzodiazepines Scrn Urine Cocaine Screen U Marijuana (THC) Screen Airway Mallampati Class: II TM Dist: >3cm Neck ROM: Full Heart: rrr Lungs: cta Assessment and Plan Assessment Anesthesia Assessment: Anesthesia Plan Discussed and Chart Reviewed Final Anesthetic Review Family History of Problems with Anesthesia: No History of Problems with Anesthesia: No NPO: Yes ASA Class: III Final Preanesthetic Review: No Changes in Pt Med Stat, Meds/Allgs Chart Reviewed and Consent Obtained/Reviewed Patient Risk: Intermediate Procedure Risk: Intermediate Anesthetic Plan Anesthetic Plan: GA Disposition: Standard PACU
[2024-01-08] MEDS: LORazepam 0.5 MG TABLET PO (08:25)
[2024-01-08] MEDS: Acetaminophen 325 MG TABLET 650 MG PO (08:25)
[2024-01-08] MEDS: Ondansetron ODT 4 MG TAB.RAPDIS TRANSLINGU (09:41)
--- NOTE | 2024-01-08 10:28 | P.DS_ITS ---
DS: Providers Provider Date of Service: 01/08/24 Date of admission: 12/16/23 12:00 Date of discharge: 01/08/24 Primary care physician: Ruma Alvarado MD Admitting clinician: Lisy Mujica Attending physician on discharge: Hossein Smith DS: Diagnosis Discharge Diagnosis (1) Schizoaffective disorder: Status: Acute (2) Catatonia: Status: Acute DS: Medications Discharge Medications Home Medications: Previous Rx's ?Medication ?Instructions ?Recorded clonidine HCl 0.1 mg tablet 0.1 mg PO Q4H PRN anxiety 30 days 01/08/24 #30 tabs clozapine 50 mg tablet See Rx Instructions .Route 01/08/24 .COMPLEX #60 tabs lidocaine 5 % topical ointment 1 appl topical Q7D PRN numb area 01/08/24 prior to blood draw 30 days #35.44 grams ondansetron 4 mg disintegrating 4 mg translingual Q6H PRN Nausea 01/08/24 tablet And Vomiting 30 days #30 tabs trazodone 50 mg tablet 50 mg PO BEDTIME PRN Insomnia 30 01/08/24 days #30 tabs Mental Status Exam Mental Status Exam Narrative: Pt is alert and oriented; behavior is cooperative, friendly and calm and organized; patient is not in distress; dressed in casual attire with adequate hygiene; mood is described as good and affect congruent; eye contact appropriate; Speech is normal rate, volume and prosody and not pressured; no psychomotor agitation/retardation present; thought process is organized and goal directed; Thought content is on tx; otherwise pertinent to relevant topics and without any delusional content, paranoid ideations or grandiosity; denies any SI/HI. There is no evidence of perceptual disturbance. Patients insight and judgment appear intact. Data Data Completed and Pending Completed studies during hospitalization [Text1]: 01/05/24 01/06/24 01/07/24 09:29 22:15 10:46 WBC 6.7 RBC 4.51 Hgb 12.1 Hct 38.1 MCV 84.5 MCH 26.8 L MCHC 31.8 RDW 15.8 Plt Count 402 H MPV 9.7 Immature Gran % (Auto) 0.4 Neut % (Auto) 65.7 Lymph % (Auto) 25.6 [place] % (Auto) 6.4 Eos % (Auto) 1.2 Baso % (Auto) 0.7 Lymph # (Auto) 1.7 [place] # (Auto) 0.4 Eos # (Auto) 0.1 Baso # (Auto) 0.1 Abs Immat Gran (auto) 0.03 Absolute Neuts (auto) 5.7 4.4 Absolute Nucleated RBC 0.000 Nucleated RBC % (auto) 0.0 D-Dimer High Sensitivty < 150 Sodium 141 Potassium 4.2 D Chloride 106 Carbon Dioxide 26 Anion Gap 13 BUN 9 Creatinine 0.73 Estim Creat Clear Calc 104.3 Estimated GFR > 60 Random Glucose 99 Calcium 9.7 Magnesium 1.9 Troponin I High Sens < 2.7 TSH 1.22 Imaging Diagnostic Imaging Impressions Lumbar Spine X-Ray 12/28/23 21:40 IMPRESSION: No acute fracture of the lumbar spine or sacrum. Sacrum and Coccyx X-Ray 12/28/23 21:40 IMPRESSION: No acute fracture of the lumbar spine or sacrum. DS: Summary Hospital Course Hospital Course: HPI: Patient is a 23 year old female with hx of schizoaffective d/o who was recently discharged from on 12/04/23 who presented to ER d/t suicidal ideation secondary to worsening depression and auditory hallucinations instructing her to harm herself in the face of discontinued ECT treatments. Per crisis report, pt's mother contacted crisis seeking an assessment d/t patient presenting with worsening depression, suicidal thought and command AH to harm herself. Pt reported that while she felt okay after discharge, in the past week depression, daily SI, command auditory hallucinations and paranoia have increased. Pt was unable to identify why symptoms have worsened but did report recent argument with her partner and believes individuals are hacking into her phone and TV. Pt had ECT treatment while inpatient at [facility]. During admission assessment, pt presents disorganized with thought blocking. T/W attempted to meet with pt in unit office. Poor eye contact, looking around the room. Unable to have logical conversation. Pt stated, is this the psych zuniga? I don't know why I came back. I was taking my medication . Pt mumbling at times, soft spoken; she began walking towards office door, when asked where she was going pt stated, I want to see my mother. I feel like I'm dying . Unable to follow directions at times. Would not answer if she was experiencing auditory or visual hallucinations. Staff observed patient standing in unit gastelum, staring at staff or patient's intensely as they walked by. Past Psychiatric History: evaluated by care team at [facility] in past on 09/22/23 for reported overdose of 3 tablets of benadryl 25mg; inpatient at [facility]. [facility]. Hospital course: Patient soon returns to the unit, with return of psychotic delirium and catatonic symptoms. These symptoms had fully resolved during last admission after about 5 ECT treatments. She received another 2 as ouptpt but none further and soon decompensated (despite having also been on abilify). On admission, pt accepted ECT on 12/17 however refused it on 12/19. Healthcare proxy invoked and eventually affirmed. Patient restarted on Abilify and Ativan which she intermittently refused Patient was floridly psychotic with significant catatonic symptoms, disorganized in speech and behavior, not eating much, hardly talking and struggling with auditory hallucinations and paranoid persecutory delusions. Patient had some ECT, refused it twice. However eventually she continued to accept ECT and after about 5 or 6 treatments her symptoms resolved Her Abilify was tapered and discontinued since it did not seem to help at all. Discussed starting clozapine and reviewed risks side effects and patient accepted starting this medication which was well tolerated. By the end of her admission, she returned to her baseline and regular self, fully organized in speech and behavior, with good mood, bright affect, fully lucid and without any AH or paranoid delusions; she remained in good behavioral and impulse control,, sleeping and eating well and socializing appropriately with peers and staff. She agreed to continue with current series of ECT treatments with 4 more scheduled; she also agreed to continue with Clozaril. During her 1st admission from 10/10 - 12/03, patient Got ECT x5 (MWF) starting on 11/19 to 11/28 (Sat). ? However, she missed the next Saturday, 12/01; she then got ECT on 12/03(Saturday) and was discharged to outpatient ECT.? However ?she missed the next treatment that Saturday, 12/05.? She got ECT the following Friday 12/08 but that was it (7 total). She then decompensated and was readmitted 8 days later on 12/16 This admission, ECT 12/17 ECT 5/ ECT 12/26 ECT 12/29 ECT 01/04 ECT 01/05 Again patient became mostly stable after about 5-6 ECT treatments; however based on last admission, it seems to take more consistent treatments for her to remain stable. Patient will receive ECT on 01/07 which will be the 7th ECT treatment. She will continue to get ECT 4 more times, starting this Tuesday 01/09 as an outpatient which will bring her a total of 11 ECT treatments. After that, will reassess; likely will then go to once a week as clozapine is titrated. Patient is returning home where she lives with her supportive mother. She has established support in the community. While patient remains vulnerable to decompensation, at least it has been determined that ECT resolves her symptoms and she will continue getting it for the next week and a half. After that patient and team will decide how to manage ECT going forward. Hopefully clozapine will become therapeutic, prevent return of symptoms and make ECT unnecessary. Healthcare proxy remains affirmed Time spent discussing smoking cessation with patient: 3 to 10 minutes Status at Discharge Functional status at discharge: independent ambulation Overall status at discharge: patient is back to baseline Time Spent with Patient Time attestation: Total time managing care of this patient today ____ minutes. Time spent: Greater than 30 minutes Discharge Plan Discharge Anticipated Discharge Date/Time: 01/08/24 11:30 Patient Disposition: Home, Self-Care Discharge Diagnosis: Bipolar I disorder recurrent, severe with catatonia, in full remission Referrals: Queta Gregory: [facility] (psychiatry) [Other] - 01/16/24 12:00 pm (Hospital Discharge appointment with psychiatric provider Appointment is by video call.) Kayla Azevedo: [facility] [Other] - 01/14/24 12:00 pm (Hospital Discharge Appointment with therapist Appointment is by video call.) [facility]: ECT Treatment [Other] - 01/10/24 6:00 am (Patient will need to present to the PACU at [facility] for ECT treatment PACU will call prior to scheduled appointment to confirm time) [facility]: ECT Treatment [Other] - 01/15/24 6:00 am (Patient will need to present to the PACU at [facility] for ECT treatment PACU will call day prior to appointment to confirm time of ECT treatment ) [facility]: ECT Treatment [Other] - 01/17/24 6:00 am (Patient will need to present to PACU at [facility] for ECT treatment PACU will call day prior to appointment to confirm time of ECT treatment ) Ruma Alvarado MD [Primary Care Provider] - 1 Week (office will call us or pt with f/u appointment.) Discharge Medications: New lidocaine 5 % Ointment 1 appl topical Q7D PRN (Reason: numb area prior to blood draw) 30 Days Qty: 35.44 1RF Protocol: Apply to: Apply to: area prior to blood draw Continued clonidine HCl 0.1 mg Tablet 0.1 mg PO Q4H PRN (Reason: anxiety) 30 Days Qty: 30 0RF Protocol: Hold for SBP< HOLD for SBP < : 90 trazodone 50 mg Tablet 50 mg PO BEDTIME PRN (Reason: Insomnia) 30 Days Qty: 30 0RF Rx Instructions: may repeat once if needed ondansetron 4 mg Tablet,Disintegrating 4 mg translingual Q6H PRN (Reason: Nausea And Vomiting) 30 Days Qty: 30 1RF Discontinued aripiprazole 15 mg Tablet 15 mg PO BEDTIME 30 Days Qty: 30 0RF hydroxyzine HCl 25 mg Tablet 25 mg PO Q6H PRN (Reason: Anxiety) 30 Days Qty: 90 0RF No Action clozapine 100 mg tablet 100 mg PO BEDTIME 30 Days Qty: 30 0RF nitrofurantoin monohyd/m-cryst [Macrobid] 100 mg capsule 100 mg PO BID 5 Days Qty: 10 0RF Rx Instructions: must administer with a meal/food ketorolac 10 mg tablet 10 mg PO TID PRN (Reason: pain) 5 Days Qty: 15 0RF Discharge Orders: Discharge Order (Routine); Ordered 01/08/24 Ordered By: Hossein Smith Diet: Regular diet Activity on Discharge: As tolerated Stand Alone Forms: Patient Portal Discharge page, Community Support Print Language: Jamaican Other Ambulatory Orders: Absolute Neutrophil Count (Q7D) Timeframe: [id number] Facility: [facility] - Location: Laboratory Ordered By: Hossein Smith Care Plan Goals: Maintain mood and safe behaviors Take medications as prescribed Practice coping skills Continue with outpatient providers and reach out to them as needed Health Concerns: Mood stability and behaviors Plan of Treatment: ECT schedule: ECT Tuesday 01/09 ECT Sunday 01/14 ECT Tuesday 01/16 ECT Friday 01/19 For Clozapine: take 1.5 tablets at bedtime for 3 days and then take 2 tabs at bedtime Get weekly blood draw (next on 01/14) Follow up with your PCP, psychiatric provider and other outpatient providers regarding above concerns Take medications as prescribed Assessment: Risk assessment at time of discharge:? Patient was interviewed prior to discharge and found to be fully oriented and without any SI or HI. Patient has improved insight and judgment and wants to continue treatment. Patient is not in imminent risk of harm to self or others and has a safety plan that includes presenting to the closest ER or calling 911 if feeling unsafe.? Patient has been observed closely by nursing and unit staff throughout admission; patient has not engaged in any behaviors that suggest dangerousness to self or others and has demonstrated appropriate behaviors and impulse control Discharge Date/Time: 01/08/24 11:15
== END 2024-01-08 11:15 | disposition home or self-care (01) | DRG 753 ==
LOC: HO.ED 12-16 00:28 → HO.PM5 12-16 12:42
PROVIDERS: Physician Assistant; Physician Assistant Medical; Psychiatry & Neurology Psychiatry; Student in an Organized Health Care Education/Training Program; Admitting Provider Psychiatry & Neurology Psychiatry; Emergency Provider Internal Medicine; PCP Internal Medicine; Visit Provider Psychiatry & Neurology Psychiatry
PROC: GZB4ZZZ Other Electroconvulsive Therapy (ICD-10-PCS; CPT 90870; principal; 2023-12-18 08:00)
PROC: (CPT 90870; principal; 2023-12-23 07:00)
DX: F31.9 Bipolar disorder, unspecified (principal); F06.1 Catatonic disorder due to known physiological condition; R45.851 Suicidal ideations; K21.9 Gastro-esophageal reflux disease without esophagitis; R00.0 Tachycardia, unspecified; Z79.899 Other long term (current) drug therapy
CPT/HCPCS: 36415; 72100; 72220; 80048; 80053; 80307; 81001; 81025; 83735; 84443; 84484; 85025; 85048; 85379; 90870; 92950; 93005; 99285; J0330; J1596; J1805; J1885; J2060; J2250; J2359; J2405; J2704; J7120

== ENCOUNTER 2023-12-16 12:00 | Outpatient (BNV) | payer MEDICAID, SELFPAY | END 2024-01-07 09:06 | PROVIDERS: Admitting Provider Psychiatry & Neurology Psychiatry; Emergency Provider Internal Medicine; PCP Internal Medicine; Visit Provider Internal Medicine Cardiovascular Disease | DX: R00.0 Tachycardia, unspecified (principal) | CPT/HCPCS: 93010 ==

== ENCOUNTER 2023-12-16 12:00 | Outpatient (BNV) | payer MEDICAID, SELFPAY | END 2024-01-06 21:33 | PROVIDERS: Admitting Provider Psychiatry & Neurology Psychiatry; Emergency Provider Internal Medicine; PCP Internal Medicine; Visit Provider Internal Medicine Cardiovascular Disease | DX: R00.0 Tachycardia, unspecified (principal) | CPT/HCPCS: 93010 ==

== ENCOUNTER 2023-12-16 12:00 | Outpatient (BNV) | payer OTHER, SELFPAY | END 2023-12-16 14:30 | PROVIDERS: Admitting Provider Psychiatry & Neurology Psychiatry; Emergency Provider Internal Medicine; PCP Internal Medicine; Visit Provider Internal Medicine | DX: R00.0 Tachycardia, unspecified (principal); R94.31 Abnormal electrocardiogram [ECG] [EKG] | CPT/HCPCS: 93010 ==

== ENCOUNTER → 2023-12-16 12:00 | Outpatient (BNV) | payer OTHER, SELFPAY | PROVIDERS: Admitting Provider Psychiatry & Neurology Psychiatry; Emergency Provider Internal Medicine; PCP Internal Medicine; Visit Provider Psychiatry & Neurology Psychiatry | DX: F25.1 Schizoaffective disorder, depressive type (principal); F06.1 Catatonic disorder due to known physiological condition | CPT/HCPCS: 90870; 99232 ==

== ENCOUNTER → 2023-12-16 12:00 | Outpatient (BNV) | payer OTHER, SELFPAY | PROVIDERS: Admitting Provider Psychiatry & Neurology Psychiatry; Emergency Provider Internal Medicine; PCP Internal Medicine; Visit Provider Registered Nurse | DX: F25.1 Schizoaffective disorder, depressive type (principal); F06.1 Catatonic disorder due to known physiological condition | CPT/HCPCS: 90792; 90870; 99231; 99232; 99238 ==

== ENCOUNTER 2024-01-10 05:43 | Day surgery (SDC) | payer OTHER, SELFPAY ==
[2024-01-10] VITALS (7 sets, daily range): BP systolic 112–125; BP diastolic 71–81; PULSE 76–104; RESP 16–20; TEMP 36.3–36.5; O2SAT 99–100; BMI 28.3
--- NOTE | 2024-01-10 06:51 | HO.ANESPROP2 ---
[facility] Active Problems Active Problems: All Active Problems Catatonia (Acute) Auditory hallucination (Acute) Bipolar disorder in remission (Acute) Pre-op evaluation (Acute) Supraventricular tachycardia (Acute) Schizoaffective disorder (Acute) Intellectual disability (Acute) Major depressive disorder, recurrent episode, severe, with psychosis (Chronic) Contraception management (Acute) Vitamin D deficiency (Acute) Vitamin B12 deficiency (Acute) Uses control (Acute) Supraventricular tachycardia by ECG (Acute) Migraine (Acute) Past Medical History Medical History Bipolar disorder in remission Supraventricular tachycardia Schizoaffective disorder Intellectual disability Contraception management Vitamin D deficiency Vitamin B12 deficiency Uses control Hx of ovarian cyst Epigastric abdominal pain Orthostatic hypotension Supraventricular tachycardia by ECG Left ovarian cyst Migraine Family History Family History Mother Bipolar disorder Mental health disorder Family history of problems with anesthesia: No Surgical History Surgical History H/O removal of cyst History of Problems with Anesthesia: No Social History Social History Household Members: Family Household Members Other:: Pt unable to answer questions d/t mental status. Housing: House Housing Other:: at home with mother Are you a primary palliative care nurse practitioner to a significant other at home: No Alcohol intake: never Comment: 1:1 sitter Patient Tobacco Use Status: Never used Tobacco e-Cigarette/Vaping Use: Never Used Second Hand Smoke Exposure: No Substance Use Type: Unknown Advance Directives: No Advance Directives Information Provided: Yes Advance Directives Date on File: 12/10/23 service: No Current occupational status: unemployed Sexual orientation: Straight/Heterosexual Gender identity: Female Cognitive needs: No Hearing needs: No Vision needs: No Meds Allergies Allergy/AdvReac Type Severity Reaction Status Date / Time haloperidol AdvReac EPS Verified 12/15/23 19:33 metoprolol AdvReac Diarrhea Verified 12/15/23 19:33 Exam Height,Weight and Vital Signs: Height 5 ft Weight 65.771 kg Last Vital Signs Temp 97.7 F 01/10/24 06:41 Pulse 103 H 01/10/24 06:41 Resp 20 01/10/24 06:41 BP 125/81 01/10/24 06:41 Pulse Ox 100 01/10/24 06:41 O2 Del Method Room Air 01/10/24 06:41 Airway Mallampati Class: II TM Dist: >3cm Neck ROM: Full Heart: rrr Lungs: cta Assessment and Plan Assessment Anesthesia Assessment: Anesthesia Plan Discussed and Chart Reviewed Final Anesthetic Review Family History of Problems with Anesthesia: No History of Problems with Anesthesia: No NPO: Yes ASA Class: III Final Preanesthetic Review: No Changes in Pt Med Stat, Meds/Allgs Chart Reviewed and Consent Obtained/Reviewed Patient Risk: Intermediate Procedure Risk: Intermediate Anesthetic Plan Anesthetic Plan: GA Disposition: Standard PACU
[2024-01-10] MEDS: Lactated Ringers 1,000 ML 50 ML IVCONT (06:56)
--- NOTE | 2024-01-10 07:10 | MHC.SHP ---
Pre-Procedural Eval Section A - 24 Hr Update-Section A only Date of Service: 01/10/24 The patient is an INPATIENT: Yes Changes since office visit: No Cold of Flu in the past 2 weeks, No New Medical Problems, No Changes in Medication and No Patient answered all questions The patient has been examined within 24 hours of the surgical procedure. The History & Physical has been completed within 30 days and I have reviewed it.: Yes Section B - Complete if H&P > 30 days Chief Complaint: depression Allergies: Allergies Allergy/AdvReac Type Severity Reaction Status Date / Time haloperidol AdvReac EPS Verified 12/15/23 19:33 metoprolol AdvReac Diarrhea Verified 12/15/23 19:33 Plan I have reviewed the history and physical and performed a pertinent physical examination on my patient. No changes have occurred unless specified. Time Spent With Patient Time: Total time managing care of this patient today ____ minutes.
--- NOTE | 2024-01-10 07:24 | HO.ECTPROC ---
ECT Procedure Note Diagnosis/Treatment Date of Service: 01/10/24 Diagnosis: Bipolar disorder and Catatonia Previous ECT Date: 01/10/24 Current Treatment Number: 8 Treatment: Series Interval Clinical Notes: The patient's catatonia has improved, she is more responsive. She was able to answer questions and she looks less internally preoccupied, she signed consent for the procedure. She denies previous side effects with the last ECT. She had a long seizure previously that needed to be aborted with Propofol. Today, we lowered the parameters, she had a long seizure that stopped by itself. She needed Esmollol 30 before ECT after anestesia since she was tachycardic. Woke up well, no complications. Time: Total time managing care of this patient today _30___ minutes. ECT Settings Device: THYMATRON DGx Electrode Placement: Right Unilateral Program/Pulse Width: 0.25 Energy Percent: 30 Seizure Duration By EEG (in seconds): 91 By Motor Observation (in seconds): 30 Medications Administration General Anesthetic: Etomidate (14) Muscle Relaxant: Succinylcholine (80) Ancillary Medications Analgesics: Torodol - Pre ECT Anti-emetics: Zofran - Pre ECT Cardiovascular Medications: Esmolol (30) Airway Management Airway Management: Bag Mask Ventilation Treatment Recommendations Electrode Placement: Right Unilateral Program/Pulse Width: 0.25 Energy Percent: 25 Notes: Next session, lower to 25% Pt Tolerated Procedure w/o Issue: Yes
== END 2024-01-10 08:24 | disposition home or self-care (01) ==
PROVIDERS: PCP Internal Medicine; Visit Provider Psychiatry & Neurology Psychiatry
PROC: (CPT 90870; principal; 2024-01-10 07:30)
DX: F20.2 Catatonic schizophrenia (principal); F31.70 Bipolar disorder, currently in remission, most recent episode unspecified; F79 Unspecified intellectual disabilities; N83.202 Unspecified ovarian cyst, left side; I47.10 Supraventricular tachycardia, unspecified; Z30.9 Encounter for contraceptive management, unspecified; E55.9 Vitamin D deficiency, unspecified; E53.8 Deficiency of other specified B group vitamins
CPT/HCPCS: 90870; J0330; J1805; J2405; J2704

== ENCOUNTER → 2024-01-10 05:43 | Outpatient (BNV) | payer OTHER, SELFPAY | PROVIDERS: PCP Internal Medicine; Visit Provider Psychiatry & Neurology Psychiatry | DX: F33.3 Major depressive disorder, recurrent, severe with psychotic symptoms (principal) | CPT/HCPCS: 90870 ==

== ENCOUNTER 2024-01-15 05:45 | Day surgery (SDC) | payer OTHER, SELFPAY ==
[2024-01-15] VITALS (7 sets, daily range): BP systolic 105–127; BP diastolic 72–89; PULSE 94–109; RESP 16–20; TEMP 36.2–36.4; O2SAT 96–100; BMI 25.4
--- NOTE | 2024-01-15 06:43 | HO.ANESPROP2 ---
[facility] Active Problems Active Problems: All Active Problems Catatonia (Acute) Auditory hallucination (Acute) Bipolar disorder in remission (Acute) Pre-op evaluation (Acute) Supraventricular tachycardia (Acute) Schizoaffective disorder (Acute) Intellectual disability (Acute) Major depressive disorder, recurrent episode, severe, with psychosis (Chronic) Contraception management (Acute) Vitamin D deficiency (Acute) Vitamin B12 deficiency (Acute) Uses control (Acute) Supraventricular tachycardia by ECG (Acute) Migraine (Acute) Past Medical History Medical History Bipolar disorder in remission Supraventricular tachycardia Schizoaffective disorder Intellectual disability Contraception management Vitamin D deficiency Vitamin B12 deficiency Uses control Hx of ovarian cyst Epigastric abdominal pain Orthostatic hypotension Supraventricular tachycardia by ECG Left ovarian cyst Migraine Family History Family History Mother Bipolar disorder Mental health disorder Family history of problems with anesthesia: No Surgical History Surgical History H/O removal of cyst History of Problems with Anesthesia: No Social History Social History Household Members: Family Household Members Other:: Pt unable to answer questions d/t mental status. Housing: House Housing Other:: at home with mother Are you a primary customer care agent to a significant other at home: No Alcohol intake: never Comment: 1:1 sitter Patient Tobacco Use Status: Never used Tobacco e-Cigarette/Vaping Use: Never Used Second Hand Smoke Exposure: No Substance Use Type: Unknown Advance Directives: No Advance Directives Information Provided: Yes Advance Directives Date on File: 12/10/23 service: No Current occupational status: unemployed Sexual orientation: Straight/Heterosexual Gender identity: Female Cognitive needs: No Hearing needs: No Vision needs: No Meds Allergies Allergy/AdvReac Type Severity Reaction Status Date / Time haloperidol AdvReac EPS Verified 12/15/23 19:33 metoprolol AdvReac Diarrhea Verified 12/15/23 19:33 Exam Height,Weight and Vital Signs: Height 5 ft Weight 58.967 kg Last Vital Signs Temp 97.2 F 01/15/24 06:21 Pulse 109 H 01/15/24 06:21 Resp 20 01/15/24 06:21 BP 127/86 01/15/24 06:21 Pulse Ox 100 01/15/24 06:21 O2 Del Method Room Air 01/15/24 06:21 Airway Mallampati Class: II TM Dist: >3cm Neck ROM: Full Heart: rrr Lungs: cta Assessment and Plan Assessment Anesthesia Assessment: Anesthesia Plan Discussed and Chart Reviewed Final Anesthetic Review Family History of Problems with Anesthesia: No History of Problems with Anesthesia: No NPO: Yes ASA Class: III Final Preanesthetic Review: No Changes in Pt Med Stat, Meds/Allgs Chart Reviewed and Consent Obtained/Reviewed Patient Risk: Intermediate Procedure Risk: Intermediate Anesthetic Plan Anesthetic Plan: GA Disposition: Standard PACU
--- NOTE | 2024-01-15 06:55 | MHC.SHP ---
Pre-Procedural Eval Section A - 24 Hr Update-Section A only Date of Service: 01/15/24 The patient is an INPATIENT: No Changes since office visit: No Cold of Flu in the past 2 weeks, No New Medical Problems, No Changes in Medication and No Patient answered all questions The patient has been examined within 24 hours of the surgical procedure. The History & Physical has been completed within 30 days and I have reviewed it.: Yes Section B - Complete if H&P > 30 days Chief Complaint: depression Allergies: Allergies Allergy/AdvReac Type Severity Reaction Status Date / Time haloperidol AdvReac EPS Verified 12/15/23 19:33 metoprolol AdvReac Diarrhea Verified 12/15/23 19:33 Plan I have reviewed the history and physical and performed a pertinent physical examination on my patient. No changes have occurred unless specified. Time Spent With Patient Time: Total time managing care of this patient today ____ minutes.
[2024-01-15] MEDS: Lactated Ringers 1,000 ML 50 ML IVCONT (07:02)
--- NOTE | 2024-01-15 07:15 | HO.ECTPROC ---
ECT Procedure Note Diagnosis/Treatment Date of Service: 01/15/24 Diagnosis: Bipolar disorder and Catatonia Previous ECT Date: 01/10/24 Current Treatment Number: 9 Treatment: Series Interval Clinical Notes: The patient reported dysphoria, some depressive symptoms but no evidence of catatonia. She denies AH, looks hypoactive but better. No side effects with the previous ECT. Last ECT, she broke her seizure by herself. Today, we did ECT with regular paramenter right unilateral at 0.25 with 30% but she had a very long seizure, that we need to add Propofol but she was shutting her seizure, most likely, the seizure resolved by itself, still we used Propofol Time: Total time managing care of this patient today ____ minutes. ECT Settings Device: THYMATRON DGx Electrode Placement: Right Unilateral Program/Pulse Width: 0.25 Energy Percent: 30 Seizure Duration By EEG (in seconds): 156 By Motor Observation (in seconds): 0 Medications Administration General Anesthetic: Etomidate (14) Muscle Relaxant: Succinylcholine (80) Ancillary Medications Analgesics: Torodol - Pre ECT Anti-emetics: Zofran - Pre ECT Cardiovascular Medications: Esmolol (10 MG X 2) Miscillaneous Medications: Propofol (30 mg post ECT) Airway Management Airway Management: Bag Mask Ventilation Treatment Recommendations Electrode Placement: Right Unilateral Program/Pulse Width: 0.25 Energy Percent: 25 Pt Tolerated Procedure w/o Issue: Yes
== END 2024-01-15 08:27 | disposition home or self-care (01) ==
PROVIDERS: PCP Internal Medicine; Visit Provider Psychiatry & Neurology Psychiatry
PROC: (CPT 90870; principal; 2024-01-15 07:30)
DX: F33.3 Major depressive disorder, recurrent, severe with psychotic symptoms (principal); F06.1 Catatonic disorder due to known physiological condition; F25.0 Schizoaffective disorder, bipolar type; E55.9 Vitamin D deficiency, unspecified; E53.8 Deficiency of other specified B group vitamins
CPT/HCPCS: 90870; J0330; J1805; J2405; J2704

== ENCOUNTER → 2024-01-15 05:45 | Outpatient (BNV) | payer OTHER, SELFPAY | PROVIDERS: PCP Internal Medicine; Visit Provider Psychiatry & Neurology Psychiatry | DX: F33.3 Major depressive disorder, recurrent, severe with psychotic symptoms (principal) | CPT/HCPCS: 90870 ==

== ENCOUNTER 2024-01-15 11:35 | Outpatient (REF) | payer OTHER, SELFPAY ==
[2024-01-15 11:56] LABS: Neut%MD 73.2 %; Neutrophils Absolute Auto 7.5 x10*3/uL (2.0-8.3); WBCANC 10.3 X10*3/uL
== END 2024-01-15 11:36 | disposition home or self-care (01) ==
LOC: HO.LAB 11:35
PROVIDERS: Psychiatry & Neurology Psychiatry; PCP Internal Medicine; Visit Provider Colon & Rectal Surgery
DX: Z51.81 Encounter for therapeutic drug level monitoring (principal)
CPT/HCPCS: 36415; 85048

== ENCOUNTER 2024-01-17 05:39 | Day surgery (SDC) | payer OTHER, SELFPAY ==
[2024-01-17] VITALS (7 sets, daily range): BP systolic 114–141; BP diastolic 73–101; PULSE 101–129; RESP 16–20; TEMP 35.8–36.6; O2SAT 94–100; BMI 26.4
--- NOTE | 2024-01-17 06:53 | HO.ANESPROP2 ---
COUNT INCLUDES THE [facility] Active Problems Active Problems: All Active Problems Catatonia (Acute) Bipolar disorder in remission (Acute) Pre-op evaluation (Acute) Supraventricular tachycardia (Acute) Schizoaffective disorder (Acute) Intellectual disability (Acute) Major depressive disorder, recurrent episode, severe, with psychosis (Chronic) Contraception management (Acute) Vitamin D deficiency (Acute) Vitamin B12 deficiency (Acute) Uses control (Acute) Supraventricular tachycardia by ECG (Acute) Migraine (Acute) Past Medical History Medical History Bipolar disorder in remission Supraventricular tachycardia Schizoaffective disorder Intellectual disability Contraception management Vitamin D deficiency Vitamin B12 deficiency Uses control Hx of ovarian cyst Epigastric abdominal pain Orthostatic hypotension Supraventricular tachycardia by ECG Left ovarian cyst Migraine Family History Family History Mother Bipolar disorder Mental health disorder Family history of problems with anesthesia: No Surgical History Surgical History H/O removal of cyst History of Problems with Anesthesia: No Social History Social History Household Members: Family Household Members Other:: Pt unable to answer questions d/t mental status. Housing: House Housing Other:: at home with mother Are you a primary career technical education teacher to a significant other at home: No Alcohol intake: never Patient Tobacco Use Status: Never used Tobacco e-Cigarette/Vaping Use: Never Used Second Hand Smoke Exposure: No Substance Use Type: Unknown Advance Directives: No Advance Directives Information Provided: Yes Advance Directives Date on File: 12/10/23 service: No Current occupational status: unemployed Sexual orientation: Straight/Heterosexual Gender identity: Female Cognitive needs: No Hearing needs: No Vision needs: No Meds Allergies Allergy/AdvReac Type Severity Reaction Status Date / Time haloperidol AdvReac EPS Verified 12/15/23 19:33 metoprolol AdvReac Diarrhea Verified 12/15/23 19:33 Active Medications: Current Medications Lactated Ringer's (Lr) 1,000 mls @ 50 mls/hr IVCONT .Q20H KRISTI Exam Height,Weight and Vital Signs: Height 5 ft Weight 61.235 kg Last Vital Signs Temp 96.4 F L 01/17/24 06:28 Pulse 125 H 01/17/24 06:28 Resp 20 01/17/24 06:28 BP 141/84 H 01/17/24 06:28 Pulse Ox 100 01/17/24 06:28 O2 Del Method Room Air 01/17/24 06:28 Airway Mallampati Class: II TM Dist: >3cm Neck ROM: Full Heart: rrr Lungs: cta Assessment and Plan Assessment Anesthesia Assessment: Anesthesia Plan Discussed and Chart Reviewed Final Anesthetic Review Family History of Problems with Anesthesia: No History of Problems with Anesthesia: No NPO: Yes ASA Class: III Final Preanesthetic Review: No Changes in Pt Med Stat, Meds/Allgs Chart Reviewed and Consent Obtained/Reviewed Patient Risk: Intermediate Procedure Risk: Intermediate Anesthetic Plan Anesthetic Plan: GA Disposition: Standard PACU
--- NOTE | 2024-01-17 06:59 | MHC.SHP ---
Pre-Procedural Eval Section A - 24 Hr Update-Section A only Date of Service: 01/17/24 The patient is an INPATIENT: No Changes since office visit: No Cold of Flu in the past 2 weeks, No New Medical Problems, No Changes in Medication and No Patient answered all questions The patient has been examined within 24 hours of the surgical procedure. The History & Physical has been completed within 30 days and I have reviewed it.: Yes Section B - Complete if H&P > 30 days Chief Complaint: depression Details of Present Illness: depression has returned and comes and goes however no AH or delusional thinking Relevant Social History: None Allergies: Allergies Allergy/AdvReac Type Severity Reaction Status Date / Time haloperidol AdvReac EPS Verified 12/15/23 19:33 metoprolol AdvReac Diarrhea Verified 12/15/23 19:33 Review of Systems Sugical H&P ROS: Negative: Cardiovascular, Respiratory and Neurological and Yes, Specify: Psychiatric (depression) Exam Surgical H&P Exam: Normal: Heart (tachycardia), Normal: Lungs and Normal: Neurological Plan Diagnosis/Plan: Change (lower energy) I have reviewed the history and physical and performed a pertinent physical examination on my patient. No changes have occurred unless specified. Time Spent With Patient Time: Total time managing care of this patient today ____ minutes.
--- NOTE | 2024-01-17 07:01 | HO.ECTPROC ---
ECT Procedure Note Diagnosis/Treatment Date of Service: 01/17/24 Diagnosis: Bipolar disorder Previous ECT Date: 01/15/24 Current Treatment Number: 10 Treatment: Series Interval Clinical Notes: AH/delusions remain gone However, depression has returned Time: Total time managing care of this patient today ____ minutes. ECT Settings Device: THYMATRON DGx Electrode Placement: Right Unilateral Program/Pulse Width: 0.25 Energy Percent: 25 Seizure Duration By EEG (in seconds): 50 By Motor Observation (in seconds): 39 Medications Administration General Anesthetic: Etomidate (14) Muscle Relaxant: Succinylcholine (80) Ancillary Medications Anti-emetics: Zofran - Pre ECT Cardiovascular Medications: Esmolol (20) Miscillaneous Medications: Propofol (30) Airway Management Airway Management: Bag Mask Ventilation Treatment Recommendations No Changes Recommended: No change Electrode Placement: Right Unilateral Program/Pulse Width: 0.25 Energy Percent: 25 Notes: Seizure ended by itself at 50seconds, just as Propofol given; recommend continuing with propofol however as pt typically requires it to stop seizure. This time, Energy was at 25% which seems adequate (lowered from 30%) continue w/ same parameters Pt Tolerated Procedure w/o Issue: Yes
== END 2024-01-17 08:50 | disposition home or self-care (01) ==
PROVIDERS: PCP Internal Medicine; Visit Provider Psychiatry & Neurology Psychiatry
PROC: (CPT 90870; principal; 2024-01-17 07:00)
DX: F31.9 Bipolar disorder, unspecified (principal)
CPT/HCPCS: 90870; J0330; J1805; J2405; J2704

== ENCOUNTER → 2024-01-17 05:39 | Outpatient (BNV) | payer OTHER, SELFPAY | PROVIDERS: PCP Internal Medicine; Visit Provider Psychiatry & Neurology Psychiatry | DX: F33.3 Major depressive disorder, recurrent, severe with psychotic symptoms (principal) | CPT/HCPCS: 90870 ==

== ENCOUNTER 2024-01-18 16:56 | Emergency (ER) | payer OTHER, SELFPAY ==
[2024-01-18] VITALS (8 sets, daily range): BP systolic 101–139; BP diastolic 65–82; PULSE 103–150; RESP 16–22; TEMP 36.8–37.7; O2SAT 96–100; BMI 28.6
--- NOTE | ~2024-01-18 | XR_ITS ---
EXAMINATION: XR PORTABLE CHEST CLINICAL INFORMATION: Chest pain COMPARISON: 11/10/2023 TECHNIQUE: AP portable upright view of the chest FINDINGS: Lungs are clear. No consolidation, pneumothorax, or pleural effusion. Cardiac and mediastinal contours are normal. Pulmonary vasculature is unremarkable. Osseous structures are unremarkable. XR/XR chest 1V IMPRESSION: No acute cardiopulmonary findings
--- NOTE | 2024-01-18 16:57 | ECG_ITS ---
Test Reason : CHEST PAIN Blood Pressure : / mmHG Vent. Rate : 139 BPM Atrial Rate : 139 BPM P-R Int : 152 ms QRS Dur : 072 ms QT Int : 264 ms P-R-T Axes : 030 044 023 degrees QTc Int : 401 ms Sinus tachycardia Possible Left atrial enlargement Nonspecific T wave abnormality Abnormal ECG When compared with ECG of 07-JAN-2024 09:31, Vent. rate has increased BY 53 BPM Nonspecific T wave abnormality now evident in Anterolateral leads Referred By: Alesha Rodriguez Electronically Signed By:LEN EDWARDS
--- NOTE | 2024-01-18 17:04 | ED.ARRPALP ---
HPI - Arrhythmia/Palpitations General Chief Complaint: Arrhythmia/Palpitations Stated Complaint: Chest pain/Fast heart rate Time Seen by Provider: 01/18/24 18:38 Source: patient and family (mother) Mode of arrival: ambulatory Limitations: no limitations History of Present Illness ED Provider: Venus Ledesma NP HPI narrative: Patient is a 23-year-old female with history of bipolar disorder, SVT, schizoaffective disorder, intellectual disability, MDD, migraines presenting to the emergency department with complaint of intermittent chest pain and palpitations since noon today. States that she was sitting inside at home when symptoms began. Also reports she has recently had some nasal congestion and fatigue. Unsure if fevers at home, temp 100? triage. Recent ECT treatment on Saturday. Denies any abdominal pain, vomiting, diarrhea. Denies dyspnea. Denies recent calf pain or swelling. MD complaint: rapid heart beat and heart racing Onset (ago): hour(s) Duration: intermittent Context: occurred during rest Arrhythmia history: SVT and other Associated symptoms: chest pain Related Data Previous Rx's ?Medication ?Instructions ?Recorded clonidine HCl 0.1 mg tablet 0.1 mg PO Q4H PRN anxiety 30 days 01/08/24 #30 tabs clozapine 50 mg tablet See Rx Instructions .Route 01/08/24 .COMPLEX #60 tabs lidocaine 5 % topical ointment 1 appl topical Q7D PRN numb area 01/08/24 prior to blood draw 30 days #35.44 grams ondansetron 4 mg disintegrating 4 mg translingual Q6H PRN Nausea 01/08/24 tablet And Vomiting 30 days #30 tabs trazodone 50 mg tablet 50 mg PO BEDTIME PRN Insomnia 30 01/08/24 days #30 tabs Allergies Allergy/AdvReac Type Severity Reaction Status Date / Time haloperidol AdvReac EPS Verified 01/18/24 17:08 metoprolol AdvReac Diarrhea Verified 01/18/24 17:08 Review of Systems Review of Systems: As per HPI. Yes all other systems are reviewed and are negative Constitutional: Constitutional: Reports as per HPI [facility] Past Medical History Medical History Bipolar disorder in remission Supraventricular tachycardia Schizoaffective disorder Intellectual disability Contraception management Vitamin D deficiency Vitamin B12 deficiency Uses control Hx of ovarian cyst Epigastric abdominal pain Orthostatic hypotension Supraventricular tachycardia by ECG Left ovarian cyst Migraine Surgical History H/O removal of cyst Family History Family History Mother Bipolar disorder Mental health disorder Social History Social History Household Members: Family Household Members Other:: Pt unable to answer questions d/t mental status. Housing: House Housing Other:: at home with mother Are you a primary home care nurse to a significant other at home: No Alcohol intake: never Patient Tobacco Use Status: Never used Tobacco Smoked in Last 30 Days: No e-Cigarette/Vaping Use: Never Used Second Hand Smoke Exposure: No Use of substances other than those prescribed or required for medical reasons: No Substance Use Type: Unknown Advance Directives: Yes Advance Directives on File: Yes Advance Directives Date on File: 12/10/23 Do you have a plan to hurt others: No Plan Patient : No service: No Current occupational status: unemployed Sexual orientation: Straight/Heterosexual Gender identity: Female Cognitive needs: No Hearing needs: No Vision needs: No Physical Exam Vital Signs: Vital Signs: Last Vital Signs Temp 98.3 F 01/18/24 23:05 Pulse 103 H 01/18/24 23:05 Resp 16 01/18/24 23:05 BP 101/65 01/18/24 23:05 Pulse Ox 99 01/18/24 23:05 O2 Del Method Room Air 01/18/24 23:05 BMI result Body Mass Index 28.6 Vital signs have been reviewed and appear to be correct. Blood pressure normal. Heart rate tachycardic. Respiratory rate normal. Temperature normal. Oxygen saturation normal. Const: General: cooperative, healthy appearing and no acute distress Orientation/consciousness: oriented to person, oriented to place, oriented to time and patient oriented x3 Limitations: no limitations HEENT: Head: Yes normocephalic and Yes atraumatic Ears: external ears normal General nose exam: Normal external nose present Face and sinus: Yes face symmetric Mouth: oropharynx normal and moist mucous membranes Throat: Yes uvula midline Eyes: Pupils: Equal, round and reactive pupils present Neck: Neck: Yes normal visual inspection and Yes supple Resp: Effort & Inspection: normal respiratory effort and able to speak in complete sentences Auscultation: clear to auscultation bilaterally Cardio: Rate: regular rate Rhythm: regular rhythm Heart sounds: S1 normal heart sound present and S2 normal heart sound present GI: Palpation (GI): Soft to palpation and nontender Auscultation: normoactive bowel sounds : General: Yes no CVA tenderness Back/Spine/Pelvis: Back: no CVA tenderness Skin: General skin exam: elasticity normal and turgor normal Neuro: General: oriented to person, oriented to place, oriented to time, patient oriented x3, moves all extremities, no focal motor deficits and CN's II-XI intact bilaterally Cranial nerves: Yes Equal, round and reactive pupils present Cognition (Neuro): normal cognition Extrem: General: Yes full ROM, Yes no pedal edema and Yes no calf tenderness Psych: Mental Status: mental status grossly normal Affect: normal affect Thought process: Normal thought process present Course Course Course Narrative: This is a Rapid Medical Examination (RME) performed by Sharan Rodriguez PA-C in triage. Full HPI, ROS, assessment and treatment plan per primary provider in the Main ED. 23 yo female with history of schizoaffective disorder on ECT treatments, bipolar disorder, intellectual disability, history of SVT, orthostatic hypotension of who presents to the ER for evaluation of chest pain fast heart rate that started this morning. Chest pain has been constant since this morning. Has been seen by Cardiology here and had Holter monitor showing sinus rhythm with baseline HR of 103 with frequent sinus tachycardia, no other arrythmias. Plan: EKG showing sinus tachycardia, will get lab workup and orthostatic vital signs. Medications Administered Discontinued Medications Generic Name Dose Route Start Last Admin Trade Name Rosie PRN Reason Stop Dose Admin Acetaminophen 975 mg 01/18/24 20:05 01/18/24 20:31 Acetaminophen 325 Mg Tablet PO 01/18/24 20:06 975 mg ONCE ONE Administration Clonidine HCl 0.1 mg 01/18/24 20:05 01/18/24 20:32 Clonidine Hcl 0.1 Mg Tablet PO 01/18/24 20:06 0.1 mg ONCE ONE Administration Protocol Sodium Chloride 1,000 mls @ 999 mls/hr 01/18/24 18:45 01/18/24 21:17 Ns IV 01/18/24 19:45 Infused .Q1H1M KRISTI Infusion Medical Decision Making Medical Decision Making [facility] Narrative: Patient is a 23-year-old female with history of bipolar disorder, SVT, schizoaffective disorder, intellectual disability, MDD, migraines presenting to the emergency department with complaint of intermittent chest pain and palpitations since noon today. On exam patient is awake, A+Ox3, tachycardic, VS otherwise WNL, afebrile but initial temp in triage 100.0, normal neurological exam without focal deficits, physical exam findings as above. Given reported symptoms and physical exam findings, initial differential includes cardiac arrhythmia, electrolyte abnormality, anemia, viral infection. Review of EMR notable for recent cardiology visit in November where patient was found to have orthostatic hypotension, Holter monitor showing underlying rhythm of sinus with frequent episodes of sinus tachycardia, no other arrhythmias. Labs notable for leukocytosis, slight anemia, no significant electrolyte abnormalities, negative troponin x2. X-ray chest notable for no acute cardiopulmonary abnormalities. My interpretation is in agreement with the radiologist's interpretation. Heart rate improved with IV fluids and medications given in the ED. given report of nasal congestion, feel possible viral component triggering tachycardia. Feel patient is stable for discharge home at this time. Instructed patient to follow-up with PCP/shoe lay out planner. Return precautions discussed with patient and mother. Patient and mother verbalized understanding of and agreement with plan. Differential Diagnosis Differential Diagnoses: The differential diagnosis associated with the presentation includes As per [facility]. Admission/Observation Consideration of admission/observation: Escalation of care including admission/observation considered Patient would have been admitted to the hospital had their work up had any findings where hospital admission was appropriate and their clinical presentation warranted hospital admission. Lab Data [facility] Lab Attestation statement: I reviewed the patient's lab results. As per MDM. 01/18/24 17:36 01/18/24 17:36 Labs: Lab Results 01/18/24 01/18/24 01/18/24 Range/Units 17:36 18:29 18:59 WBC 8.6 (4.8-10.8) X10*3/uL RBC 4.12 L (4.20-5.50) X10*6/uL Hgb 11.0 L (12.0-16.0) g/dl Hct 34.0 L (37.0-47.0) % MCV 82.5 (80.0-98.0) fL MCH 26.7 L (27.0-33.0) pg MCHC 32.4 (31.0-35.0) g/dl RDW 15.5 (11.0-16.0) % Plt Count 383 (160-400) X10*3/uL MPV 9.5 (9.4-12.3) fL Immature Gran % (Auto) 0.2 (0.0-0.4) % Neut % (Auto) 69.5 (45-73) % Lymph % (Auto) 14.6 L (20-40) % [place] % (Auto) 9.4 (2-11) % Eos % (Auto) 5.8 H (0-4) % Baso % (Auto) 0.5 (0-2) % Lymph # (Auto) 1.3 (1.2-4.9) X10*3/uL [place] # (Auto) 0.8 (0.1-1.2) X10*3/uL Eos # (Auto) 0.5 H (0.0-0.4) X10*3/uL Baso # (Auto) 0.0 (0.0-0.2) X10*3/uL Abs Immat Gran (auto) 0.02 (0.00-0.03) X10*3/uL Absolute Neuts (auto) 6.0 (2.0-8.3) x10*3/uL Absolute Nucleated RBC 0.000 (0.0-0.012) X10*3/uL Nucleated RBC % (auto) 0.0 (0.0-0.2) /100WBC Sodium 138 (135-145) mmol/L Potassium 4.1 (3.3-5.1) mmol/L Chloride 104 (96-108) mmol/L Carbon Dioxide 23 (22-29) mmol/L Anion Gap 15 (12-20) BUN 11 (9-16) mg/dL Creatinine 0.67 (0.5-1.4) mg/dL Estim Creat Clear Calc 132.2 Estimated GFR > 60 Random Glucose 90 (60-115) mg/dL Calcium 9.2 (8.4-10.2) mg/dL Magnesium 2.0 (1.6-2.6) mg/dL Troponin I High Sens < 2.7 (<3.5-17.0) ng/L TSH 0.65 (0.32-4.0) uIU/mL Urine Color Urine Appearance Urine pH (5.0-9.0) Ur Specific [place] (1.005-1.025) Urine Protein (Neg-Trace) mg/dL Urine Glucose (UA) (Negative) mg/dL Urine Ketones (Negative) mg/dL Urine Blood (Negative) Urine Nitrite (Negative) Ur Leukocyte Esterase (Negative) Urine Opiates Screen Not Detected (Not Detect) Ur Buprenorphine Scrn Not Detected (Not Detect) ng/mL Ur Oxycodone Screen Not Detected (Not Detect) ng/mL Urine Methadone Screen Not Detected (Not Detect) ng/mL Urine Fentanyl Screen Not Detected (Not Detect) Ur Barbiturates Screen Not Detected (Not Detect) Ur Phencyclidine Scrn Not Detected (Not Detect) Ur Amphetamines Screen Not Detected (Not Detect) U Benzodiazepines Scrn Not Detected (Not Detect) Urine Cocaine Screen Not Detected (Not Detect) U Marijuana (THC) Screen Not Detected (Not Detect) Influenza Type A (PCR) NEGATIVE (Negative) Influenza Type B (PCR) NEGATIVE (Negative) RSV RNA Qual (PCR) NEGATIVE (Negative) SARS-CoV-2 RNA (RT-PCR) NEGATIVE (Negative) S. pyogenes GrpA DEBBIE Negative (Negative) 01/18/24 01/18/24 Range/Units 20:35 22:12 WBC (4.8-10.8) X10*3/uL RBC (4.20-5.50) X10*6/uL Hgb (12.0-16.0) g/dl Hct (37.0-47.0) % MCV (80.0-98.0) fL MCH (27.0-33.0) pg MCHC (31.0-35.0) g/dl RDW (11.0-16.0) % Plt Count (160-400) X10*3/uL MPV (9.4-12.3) fL Immature Gran % (Auto) (0.0-0.4) % Neut % (Auto) (45-73) % Lymph % (Auto) (20-40) % [place] % (Auto) (2-11) % Eos % (Auto) (0-4) % Baso % (Auto) (0-2) % Lymph # (Auto) (1.2-4.9) X10*3/uL [place] # (Auto) (0.1-1.2) X10*3/uL Eos # (Auto) (0.0-0.4) X10*3/uL Baso # (Auto) (0.0-0.2) X10*3/uL Abs Immat Gran (auto) (0.00-0.03) X10*3/uL Absolute Neuts (auto) (2.0-8.3) x10*3/uL Absolute Nucleated RBC (0.0-0.012) X10*3/uL Nucleated RBC % (auto) (0.0-0.2) /100WBC Sodium (135-145) mmol/L Potassium (3.3-5.1) mmol/L Chloride (96-108) mmol/L Carbon Dioxide (22-29) mmol/L Anion Gap (12-20) BUN (9-16) mg/dL Creatinine (0.5-1.4) mg/dL Estim Creat Clear Calc Estimated GFR Random Glucose (60-115) mg/dL Calcium (8.4-10.2) mg/dL Magnesium (1.6-2.6) mg/dL Troponin I High Sens < 2.7 (<3.5-17.0) ng/L TSH (0.32-4.0) uIU/mL Urine Color Yellow Urine Appearance Clear Urine pH 7.0 (5.0-9.0) Ur Specific [place] 1.020 (1.005-1.025) Urine Protein Negative (Neg-Trace) mg/dL Urine Glucose (UA) Negative (Negative) mg/dL Urine Ketones Negative (Negative) mg/dL Urine Blood Negative (Negative) Urine Nitrite Negative (Negative) Ur Leukocyte Esterase Negative (Negative) Urine Opiates Screen (Not Detect) Ur Buprenorphine Scrn (Not Detect) ng/mL Ur Oxycodone Screen (Not Detect) ng/mL Urine Methadone Screen (Not Detect) ng/mL Urine Fentanyl Screen (Not Detect) Ur Barbiturates Screen (Not Detect) Ur Phencyclidine Scrn (Not Detect) Ur Amphetamines Screen (Not Detect) U Benzodiazepines Scrn (Not Detect) Urine Cocaine Screen (Not Detect) U Marijuana (THC) Screen (Not Detect) Influenza Type A (PCR) (Negative) Influenza Type B (PCR) (Negative) RSV RNA Qual (PCR) (Negative) SARS-CoV-2 RNA (RT-PCR) (Negative) S. pyogenes GrpA DEBBIE (Negative) Independent Interpretation I performed an independent interpretation of an: Plain X-Ray Interpretation: No evidence of cardiomegaly, pneumothorax, pneumonia Radiology Impression Discussion of test interpretation with radiology: I have reviewed the radiologist's reading. Radiologist Impression: XR/XR chest 1V IMPRESSION: No acute cardiopulmonary findings Independent Historian Clinical information obtained from an independent historian. History obtained from or confirmed by: Parent External Record Review External record reviewed: Inpatient record, Office record and Outpatient record Discharge Plan Discharge Clinical Impression: Sinus tachycardia, Palpitations, Chest pain, Viral URI Patient Disposition: Home, Self-Care Instructions: Chest Pain (DC), Heart Palpitations (DC), Tachycardia (ED) Additional Instructions: You were evaluated in the emergency department today for chest pain and fast heart rate. Your evaluation has shown no signs of medical conditions requiring emergent intervention at this time, however we recommend that you follow-up with your primary care physician or your shoe lay out planner as soon as possible for further testing as an outpatient. It's possible that your symptoms were triggered by a viral upper respiratory infection. Your temperature was elevated in the ED but not technically a fever. Testing for flu, Covid, RSV, and strep were negative. We recommend taking 650mg Tylenol every 6 hours as needed for fever. Please schedule an appointment for follow-up with your primary care physician as soon as possible. Return to the emergency department if you experience worsening or uncontrolled chest pain, shortness of breath, lightheadedness, feeling faint, loss of consciousness, nausea, vomiting, or any other concerning symptoms. Prescriptions: No Action clozapine 50 mg tablet See Rx Instructions .ROUTE .COMPLEX Qty: 60 0RF Rx Instructions: take 1.5 tablets at bedtime for 3 days and then take 2 tabs at bedtime clonidine HCl 0.1 mg Tablet 0.1 mg PO Q4H PRN (Reason: anxiety) 30 Days Qty: 30 0RF Protocol: Hold for SBP< HOLD for SBP < : 90 trazodone 50 mg Tablet 50 mg PO BEDTIME PRN (Reason: Insomnia) 30 Days Qty: 30 0RF Rx Instructions: may repeat once if needed ondansetron 4 mg Tablet,Disintegrating 4 mg translingual Q6H PRN (Reason: Nausea And Vomiting) 30 Days Qty: 30 1RF lidocaine 5 % Ointment 1 appl topical Q7D PRN (Reason: numb area prior to blood draw) 30 Days Qty: 35.44 1RF Protocol: Apply to: Apply to: area prior to blood draw Print Language: Hebrew
[2024-01-18 17:40] LABS: MANUAL DIFF FLAG NO
[2024-01-18 17:43] LABS: Basophils Percent Auto 0.5 % (0-2); Eosinophils Absolute Auto 0.5 X10*3/uL (0.0-0.4); Eosinophils Percent Auto 5.8 % (0-4); Imm Gran Abs Auto 0.02 X10*3/uL (0.00-0.03); Imm Gran Pct Auto 0.2 % (0.0-0.4); Lymphocytes Absolute Auto 1.3 X10*3/uL (1.2-4.9); Lymphocytes Percent Auto 14.6 % (20-40); Mean Corpuscular HGB Conc 32.4 g/dl (31.0-35.0); Mean Corpuscular Hemoglobin 26.7 pg (27.0-33.0); Mean Corpuscular Volume 82.5 fL (80.0-98.0); Mean Platelet Volume 9.5 fL (9.4-12.3); Monocytes Absolute Auto 0.8 X10*3/uL (0.1-1.2); Monocytes Percent Auto 9.4 % (2-11); Neutrophils Percent Auto 69.5 % (45-73); Platelet Count 383 X10*3/uL (160-400); Red Blood Count 4.12 X10*6/uL (4.20-5.50); Red Cell Distribution Width 15.5 % (11.0-16.0); White Blood Count 8.6 X10*3/uL (4.8-10.8)
[2024-01-18 18:01] LABS: Anion Gap 15 (12-20); Blood Urea Nitrogen 11 mg/dL (9-16); Calcium 9.2 mg/dL (8.4-10.2); Carbon Dioxide 23 mmol/L (22-29); Chloride 104 mmol/L (96-108); Creatinine Clr Calc Pharmacy 132.2; Estimated Glomerular Filt Rate > 60; Glucose Random 90 mg/dL (60-115); Potassium 4.1 mmol/L (3.3-5.1); Sodium 138 mmol/L (135-145)
[2024-01-18 18:03] LABS: Troponin-I High Sensitivity < 2.7 ng/L (<3.5-17.0)
[2024-01-18 18:16] LABS: TSH reflex Free T4 0.65 uIU/mL (0.32-4.0)
[2024-01-18 18:44] LABS: Amphetamine Screen Urine Not Detected (Not Detect); Barbiturates, Urine Not Detected (Not Detect); Benzodiazepines Screen Urine Not Detected (Not Detect); Buprenorphine Scr Not Detected (Not Detect); Cannabinoid Screen Urine Not Detected (Not Detect); Cocaine Screen Urine Not Detected (Not Detect); Fentanyl, urine Not Detected (Not Detect); Methadone Screen, Urine Not Detected (Not Detect); Opiate Screen Urine Not Detected (Not Detect); Oxycodone Screen Urine Not Detected (Not Detect); Phencyclidine Screen Urine Not Detected (Not Detect)
[2024-01-18 19:14] LABS: IDNOW Serial# 58CA691E; Strep A Nucleic Acid Negative (Negative)
[2024-01-18 19:41] LABS: Influenza A PCR NEGATIVE (Negative); Influenza B PCR NEGATIVE (Negative); Resp Syncy Virus RNA Qual PCR NEGATIVE (Negative); SARS COV2 PCR INHOUSE NEGATIVE (Negative)
[2024-01-18] MEDS: 0.9 % Sodium Chloride 1,000 ML 999 ML IV (20:00)
[2024-01-18] MEDS: Acetaminophen 325 MG TABLET 975 MG PO (20:31)
[2024-01-18] MEDS: cloNIDine HCL 0.1 MG TABLET PO (20:32)
[2024-01-18 20:42] LABS: Appearance Urine Clear; Color Urine Yellow; Glucose Urine UA Negative (Negative); Leukocyte Esterase Urine Negative (Negative); Nitrite Urine Negative (Negative); Urine Blood Negative (Negative); Urine Ketones Negative (Negative); Urine Protein Negative (Neg-Trace)
[2024-01-18 22:43] LABS: Troponin-I High Sensitivity < 2.7 ng/L (<3.5-17.0)
[2024-01-19 00:25] VITALS: BP 101/65; PULSE 103; RESP 16; TEMP 36.8; O2SAT 99
== END 2024-01-19 00:27 | disposition home or self-care (01) ==
PROVIDERS: Physician Assistant; Registered Nurse Emergency; Emergency Provider Emergency Medicine; PCP Internal Medicine
DX: R07.9 Chest pain, unspecified (principal); R00.2 Palpitations; R00.0 Tachycardia, unspecified; J06.9 Acute upper respiratory infection, unspecified; F31.70 Bipolar disorder, currently in remission, most recent episode unspecified; F25.9 Schizoaffective disorder, unspecified; F79 Unspecified intellectual disabilities; Z79.899 Other long term (current) drug therapy; Z03.818 Encounter for observation for suspected exposure to other biological agents ruled out
CPT/HCPCS: 0241U; 36415; 71045; 80048; 80307; 81003; 83735; 84443; 84484; 85025; 87651; 93005; 96360; 99284; 99285

== ENCOUNTER → 2024-01-18 16:57 | Outpatient (BNV) | payer OTHER, SELFPAY | PROVIDERS: Emergency Provider Emergency Medicine; PCP Internal Medicine; Visit Provider Internal Medicine | DX: R07.9 Chest pain, unspecified (principal); R00.0 Tachycardia, unspecified; R94.31 Abnormal electrocardiogram [ECG] [EKG] | CPT/HCPCS: 93010 ==

== ENCOUNTER 2024-01-20 05:48 | Day surgery (SDC) | payer OTHER, SELFPAY ==
[2024-01-20 06:27] VITALS: BP 115/73; PULSE 115; RESP 20; TEMP 37.3; O2SAT 99; BMI 26.4
--- NOTE | 2024-01-20 06:41 | P.CONAN_ITS ---
[facility] Active Problems Active Problems: All Active Problems Catatonia (Acute) Bipolar disorder in remission (Acute) Pre-op evaluation (Acute) Supraventricular tachycardia (Acute) Schizoaffective disorder (Acute) Intellectual disability (Acute) Major depressive disorder, recurrent episode, severe, with psychosis (Chronic) Contraception management (Acute) Vitamin D deficiency (Acute) Vitamin B12 deficiency (Acute) Uses control (Acute) Supraventricular tachycardia by ECG (Acute) Migraine (Acute) Past Medical History Medical History Bipolar disorder in remission Supraventricular tachycardia Schizoaffective disorder Intellectual disability Contraception management Vitamin D deficiency Vitamin B12 deficiency Uses control Hx of ovarian cyst Epigastric abdominal pain Orthostatic hypotension Supraventricular tachycardia by ECG Left ovarian cyst Migraine Family History Family History Mother Bipolar disorder Mental health disorder Family history of problems with anesthesia: No Surgical History Surgical History H/O removal of cyst History of Problems with Anesthesia: No Social History Social History Household Members: Family Household Members Other:: Pt unable to answer questions d/t mental status. Housing: House Housing Other:: at home with mother Are you a primary rn managed care to a significant other at home: No Alcohol intake: never Patient Tobacco Use Status: Never used Tobacco e-Cigarette/Vaping Use: Never Used Second Hand Smoke Exposure: No Substance Use Type: Unknown Advance Directives: No Advance Directives Information Provided: Yes Advance Directives Date on File: 12/10/23 service: No Current occupational status: unemployed Sexual orientation: Straight/Heterosexual Gender identity: Female Cognitive needs: No Hearing needs: No Vision needs: No Meds Allergies Allergy/AdvReac Type Severity Reaction Status Date / Time haloperidol AdvReac EPS Verified 01/18/24 17:08 metoprolol AdvReac Diarrhea Verified 01/18/24 17:08 Exam Height,Weight and Vital Signs: Height 5 ft Weight 61.235 kg Last Vital Signs Temp 99.2 F 01/20/24 06:27 Pulse 115 H 01/20/24 06:27 Resp 20 01/20/24 06:27 BP 115/73 01/20/24 06:27 Pulse Ox 99 01/20/24 06:27 O2 Del Method Room Air 01/20/24 06:27 Airway Mallampati Class: II TM Dist: >3cm Neck ROM: Full Heart: tachy Lungs: cta Assessment and Plan Assessment Anesthesia Assessment: Anesthesia Plan Discussed and Chart Reviewed Final Anesthetic Review Family History of Problems with Anesthesia: No History of Problems with Anesthesia: No NPO: Yes ASA Class: III Final Preanesthetic Review: No Changes in Pt Med Stat, Meds/Allgs Chart Reviewed and Consent Obtained/Reviewed Patient Risk: Intermediate Procedure Risk: Intermediate Anesthetic Plan Anesthetic Plan: GA Disposition: Standard PACU
[2024-01-20] MEDS: Lactated Ringers 1,000 ML 50 ML IVCONT (06:44)
--- NOTE | 2024-01-20 06:58 | MHC.SHP ---
Pre-Procedural Eval Section A - 24 Hr Update-Section A only Date of Service: 01/20/24 The patient is an INPATIENT: No Changes since office visit: Yes Cold of Flu in the past 2 weeks, Yes New Medical Problems, Yes Changes in Medication and Yes Patient answered all questions The patient has been examined within 24 hours of the surgical procedure. The History & Physical has been completed within 30 days and I have reviewed it.: Yes Section B - Complete if H&P > 30 days Chief Complaint: depression Allergies: Allergies Allergy/AdvReac Type Severity Reaction Status Date / Time haloperidol AdvReac EPS Verified 01/18/24 17:08 metoprolol AdvReac Diarrhea Verified 01/18/24 17:08 Plan I have reviewed the history and physical and performed a pertinent physical examination on my patient. No changes have occurred unless specified. Time Spent With Patient Time: Total time managing care of this patient today ____ minutes.
--- NOTE | 2024-01-20 07:16 | HO.ECTPROC ---
ECT Procedure Note Diagnosis/Treatment Date of Service: 01/20/24 Diagnosis: Bipolar disorder and Catatonia Previous ECT Date: 01/17/24 Current Treatment Number: 11 Treatment: Series Interval Clinical Notes: The patietn does not have catatonic sympotms, reports some dysphoria. No side effects with previous ECT. Today we did with the same parameters, the seizure was long but stopped by itself. Woke up well. Time: Total time managing care of this patient today ____ minutes. ECT Settings Device: THYMATRON DGx Electrode Placement: Right Unilateral Program/Pulse Width: 0.25 Energy Percent: 25 Seizure Duration By EEG (in seconds): 81 By Motor Observation (in seconds): 30 Medications Administration General Anesthetic: Etomidate (14) Muscle Relaxant: Succinylcholine (80) Ancillary Medications Analgesics: Torodol - Pre ECT Anti-emetics: Zofran - Pre ECT Cardiovascular Medications: Esmolol Miscillaneous Medications: Propofol Airway Management Airway Management: Bag Mask Ventilation Treatment Recommendations Electrode Placement: Right Unilateral Program/Pulse Width: 0.25 Energy Percent: 20 Pt Tolerated Procedure w/o Issue: Yes
[2024-01-20 07:18] VITALS: BP 130/93; PULSE 103; RESP 18; TEMP 37.2; O2SAT 95
[2024-01-20 07:23] VITALS: BP 103/69; PULSE 104; RESP 20; O2SAT 95
[2024-01-20 07:28] VITALS: BP 110/80; PULSE 117; RESP 21; O2SAT 96
[2024-01-20 07:32] VITALS: BP 107/80; PULSE 129; RESP 20; O2SAT 87
[2024-01-20 07:47] VITALS: BP 122/76; PULSE 118; RESP 20; TEMP 37.2; O2SAT 97
== END 2024-01-20 08:08 | disposition home or self-care (01) ==
PROVIDERS: PCP Internal Medicine; Visit Provider Psychiatry & Neurology Psychiatry
PROC: (CPT 90870; principal; 2024-01-20 07:00)
DX: F31.9 Bipolar disorder, unspecified (principal); F06.1 Catatonic disorder due to known physiological condition
CPT/HCPCS: 90870; J0330; J1805; J2405; J2704

== ENCOUNTER → 2024-01-20 05:48 | Outpatient (BNV) | payer OTHER, SELFPAY | PROVIDERS: PCP Internal Medicine; Visit Provider Psychiatry & Neurology Psychiatry | DX: F33.3 Major depressive disorder, recurrent, severe with psychotic symptoms (principal) | CPT/HCPCS: 90870 ==

== ENCOUNTER 2024-01-22 10:14 | Outpatient (REF) | payer OTHER, SELFPAY | END 2024-01-22 10:15 | disposition home or self-care (01) | LOC: HO.LAB 10:14 | PROVIDERS: PCP Internal Medicine; Visit Provider Psychiatry & Neurology Psychiatry | DX: Z51.81 Encounter for therapeutic drug level monitoring (principal) | CPT/HCPCS: 36415; 85048 ==

== ENCOUNTER 2024-01-23 12:41 | Outpatient (REF) | payer OTHER, SELFPAY ==
[2024-01-23 14:01] LABS: Neut%MD 64.8 %; Neutrophils Absolute Auto 6.2 x10*3/uL (2.0-8.3); WBCANC 9.6 X10*3/uL
== END 2024-01-23 12:42 | disposition home or self-care (01) ==
LOC: HO.LAB 12:41
PROVIDERS: PCP Internal Medicine; Visit Provider Psychiatry & Neurology Psychiatry
DX: Z51.81 Encounter for therapeutic drug level monitoring (principal)
CPT/HCPCS: 36415; 85048

== ENCOUNTER 2024-01-24 05:54 | Day surgery (SDC) | payer OTHER, SELFPAY ==
[2024-01-24 06:19] LABS: UPreg QC Valid YES; Urine Pregnancy NEGATIVE (NEGATIVE)
[2024-01-24 06:25] VITALS: BP 119/79; PULSE 133; RESP 20; TEMP 37.1; O2SAT 98; BMI 25.4
--- NOTE | 2024-01-24 07:04 | P.CONAN_ITS ---
[facility] Active Problems Active Problems: All Active Problems Catatonia (Acute) Bipolar disorder in remission (Acute) Pre-op evaluation (Acute) Supraventricular tachycardia (Acute) Schizoaffective disorder (Acute) Intellectual disability (Acute) Contraception management (Acute) Vitamin D deficiency (Acute) Vitamin B12 deficiency (Acute) Uses control (Acute) Supraventricular tachycardia by ECG (Acute) Migraine (Acute) Past Medical History Medical History Major depressive disorder, recurrent episode, severe, with psychosis Bipolar disorder in remission Supraventricular tachycardia Schizoaffective disorder Intellectual disability Contraception management Vitamin D deficiency Vitamin B12 deficiency Uses control Hx of ovarian cyst Epigastric abdominal pain Orthostatic hypotension Supraventricular tachycardia by ECG Left ovarian cyst Migraine Family History Family History Mother Bipolar disorder Mental health disorder Family history of problems with anesthesia: No Surgical History Surgical History H/O removal of cyst History of Problems with Anesthesia: No Social History Social History Household Members: Family Household Members Other:: Pt unable to answer questions d/t mental status. Housing: House Housing Other:: at home with mother Are you a primary care program resident to a significant other at home: No Alcohol intake: never Patient Tobacco Use Status: Never used Tobacco e-Cigarette/Vaping Use: Never Used Second Hand Smoke Exposure: No Substance Use Type: Unknown Advance Directives: No Advance Directives Information Provided: Yes Advance Directives Date on File: 12/10/23 service: No Current occupational status: unemployed Sexual orientation: Straight/Heterosexual Gender identity: Female Cognitive needs: No Hearing needs: No Vision needs: No Meds Allergies Allergy/AdvReac Type Severity Reaction Status Date / Time haloperidol AdvReac EPS Verified 01/18/24 17:08 metoprolol AdvReac Diarrhea Verified 01/18/24 17:08 Exam Height,Weight and Vital Signs: Height 5 ft Weight 58.967 kg Last Vital Signs Temp 98.8 F 01/24/24 06:25 Pulse 133 H 01/24/24 06:25 Resp 20 01/24/24 06:25 BP 119/79 01/24/24 06:25 Pulse Ox 98 01/24/24 06:25 O2 Del Method Room Air 01/24/24 06:25 Pertinent Lab Results Pertinent Lab Results: Laboratory Tests 01/24/24 06:10 Urine Test NEGATIVE Airway Mallampati Class: II TM Dist: >3cm Neck ROM: Full Loose/Missing/Broken Teeth: No Heart: RRR Lungs: CTA Assessment and Plan Assessment Anesthesia Assessment: Anesthesia Plan Discussed and Chart Reviewed Final Anesthetic Review Family History of Problems with Anesthesia: No History of Problems with Anesthesia: No NPO: Yes ASA Class: II Final Preanesthetic Review: Meds/Allgs Chart Reviewed, Consent Obtained/Reviewed and Anes Risks/Benef Reviewed Patient Risk: Low Procedure Risk: Intermediate Anesthetic Plan Anesthetic Plan: MAC: Disposition: Standard PACU
--- NOTE | 2024-01-24 07:08 | MHC.SHP ---
Pre-Procedural Eval Section A - 24 Hr Update-Section A only Date of Service: 01/24/24 Section B - Complete if H&P > 30 days Chief Complaint: depression Details of Present Illness: feeling ok mild blues Relevant Social History: None Present Medications: see Short Stay Collaborative assessment Allergies: Allergies Allergy/AdvReac Type Severity Reaction Status Date / Time haloperidol AdvReac EPS Verified 01/18/24 17:08 metoprolol AdvReac Diarrhea Verified 01/18/24 17:08 Review of Systems Sugical H&P ROS: Negative: Cardiovascular, Respiratory and Neurological and Yes, Specify: Psychiatric (mild dep sx ) Exam Surgical H&P Exam: Normal: Heart, Normal: Lungs and Normal: Neurological Plan Diagnosis/Plan: Unchanged I have reviewed the history and physical and performed a pertinent physical examination on my patient. No changes have occurred unless specified. Time Spent With Patient Time: Total time managing care of this patient today ____ minutes.
--- NOTE | 2024-01-24 07:10 | HO.ECTPROC ---
ECT Procedure Note Diagnosis/Treatment Date of Service: 01/24/24 Diagnosis: Bipolar disorder and Catatonia Previous ECT Date: 01/20/24 Current Treatment Number: 12 Treatment: Series Interval Clinical Notes: The patietn does not have catatonic sympotms, reports some dysphoria. No side effects with previous ECT.'continuation tx scheduled tx rul tolerated well 30 esmolol pre tx has some dep sx consider change to bf if needed Time: Total time managing care of this patient today 30____ minutes. ECT Settings Device: THYMATRON DGx Electrode Placement: Right Unilateral Program/Pulse Width: 0.25 Energy Percent: 20 Seizure Duration By EEG (in seconds): 47 Medications Administration General Anesthetic: Etomidate (14) Muscle Relaxant: Succinylcholine (80) Ancillary Medications Analgesics: Torodol - Pre ECT Anti-emetics: Zofran - Pre ECT Cardiovascular Medications: Esmolol (30 pre) Miscillaneous Medications: Propofol (20) Airway Management Airway Management: Bag Mask Ventilation Treatment Recommendations Electrode Placement: Right Unilateral Program/Pulse Width: 0.25 Energy Percent: 20 Pt Tolerated Procedure w/o Issue: Yes
[2024-01-24 07:26] VITALS: BP 114/76; PULSE 118; RESP 21; TEMP 36.7; O2SAT 95
[2024-01-24 07:31] VITALS: BP 116/75; PULSE 124; RESP 24; O2SAT 98
[2024-01-24 07:36] VITALS: BP 112/61; PULSE 124; RESP 22; O2SAT 98
[2024-01-24 07:51] VITALS: BP 107/71; PULSE 129; RESP 20; O2SAT 97
[2024-01-24 08:06] VITALS: BP 155/61; PULSE 123; RESP 20; TEMP 36.7; O2SAT 97
== END 2024-01-24 08:34 | disposition home or self-care (01) ==
PROVIDERS: PCP Internal Medicine; Visit Provider Psychiatry & Neurology Psychiatry
PROC: (CPT 90870; principal; 2024-01-24 07:30)
DX: F31.9 Bipolar disorder, unspecified (principal); F06.1 Catatonic disorder due to known physiological condition
CPT/HCPCS: 81025; 90870; J0330; J1805; J2405; J2704

== ENCOUNTER → 2024-01-24 05:54 | Outpatient (BNV) | payer OTHER, SELFPAY | PROVIDERS: PCP Internal Medicine; Visit Provider Psychiatry & Neurology Psychiatry | DX: F33.3 Major depressive disorder, recurrent, severe with psychotic symptoms (principal) | CPT/HCPCS: 90870 ==

== ENCOUNTER 2024-01-27 05:44 | Day surgery (SDC) | payer OTHER, SELFPAY ==
[2024-01-27] VITALS (7 sets, daily range): BP systolic 111–149; BP diastolic 75–96; PULSE 102–129; RESP 15–20; TEMP 36.2–36.6; O2SAT 95–100; BMI 25.4
--- NOTE | 2024-01-27 06:53 | MHC.SHP ---
Pre-Procedural Eval Section A - 24 Hr Update-Section A only Date of Service: 01/27/24 The patient is an INPATIENT: No Changes since office visit: No Cold of Flu in the past 2 weeks, No New Medical Problems, No Changes in Medication and No Patient answered all questions The patient has been examined within 24 hours of the surgical procedure. The History & Physical has been completed within 30 days and I have reviewed it.: Yes Section B - Complete if H&P > 30 days Chief Complaint: depression Allergies: Allergies Allergy/AdvReac Type Severity Reaction Status Date / Time haloperidol AdvReac EPS Verified 01/18/24 17:08 metoprolol AdvReac Diarrhea Verified 01/18/24 17:08 Plan I have reviewed the history and physical and performed a pertinent physical examination on my patient. No changes have occurred unless specified. Time Spent With Patient Time: Total time managing care of this patient today ____ minutes.
--- NOTE | 2024-01-27 06:56 | HO.ANESPROP2 ---
[facility]S [facility] BEDS AT THE [facility] Active Problems Active Problems: All Active Problems Catatonia (Acute) Bipolar disorder in remission (Acute) Pre-op evaluation (Acute) Supraventricular tachycardia (Acute) Schizoaffective disorder (Acute) Intellectual disability (Acute) Contraception management (Acute) Vitamin D deficiency (Acute) Vitamin B12 deficiency (Acute) Uses control (Acute) Supraventricular tachycardia by ECG (Acute) Migraine (Acute) Past Medical History Medical History Major depressive disorder, recurrent episode, severe, with psychosis Bipolar disorder in remission Supraventricular tachycardia Schizoaffective disorder Intellectual disability Contraception management Vitamin D deficiency Vitamin B12 deficiency Uses control Hx of ovarian cyst Epigastric abdominal pain Orthostatic hypotension Supraventricular tachycardia by ECG Left ovarian cyst Migraine Family History Family History Mother Bipolar disorder Mental health disorder Family history of problems with anesthesia: No Surgical History Surgical History H/O removal of cyst History of Problems with Anesthesia: No Social History Social History Household Members: Family Household Members Other:: Pt unable to answer questions d/t mental status. Housing: House Housing Other:: at home with mother Are you a primary director long term care to a significant other at home: No Alcohol intake: never Patient Tobacco Use Status: Never used Tobacco e-Cigarette/Vaping Use: Never Used Second Hand Smoke Exposure: No Substance Use Type: Unknown Advance Directives: No Advance Directives Information Provided: Yes Advance Directives Date on File: 12/10/23 service: No Current occupational status: unemployed Sexual orientation: Straight/Heterosexual Gender identity: Female Cognitive needs: No Hearing needs: No Vision needs: No Meds Allergies Allergy/AdvReac Type Severity Reaction Status Date / Time haloperidol AdvReac EPS Verified 01/18/24 17:08 metoprolol AdvReac Diarrhea Verified 01/18/24 17:08 Exam Height,Weight and Vital Signs: Height 5 ft Weight 58.967 kg Last Vital Signs Temp 97.2 F 01/27/24 06:33 Pulse 129 H 01/27/24 06:33 Resp 15 01/27/24 06:33 BP 111/75 01/27/24 06:33 Pulse Ox 100 01/27/24 06:33 O2 Del Method Room Air 01/27/24 06:33 Airway Mallampati Class: II TM Dist: >3cm Neck ROM: Full Heart: rrr Lungs: cta Assessment and Plan Assessment Anesthesia Assessment: Anesthesia Plan Discussed Final Anesthetic Review Family History of Problems with Anesthesia: No History of Problems with Anesthesia: No NPO: Yes ASA Class: III Final Preanesthetic Review: No Changes in Pt Med Stat, Meds/Allgs Chart Reviewed, Consent Obtained/Reviewed and Anes Risks/Benef Reviewed Patient Risk: Intermediate Procedure Risk: Intermediate Anesthetic Plan Anesthetic Plan: GA Disposition: Standard PACU
[2024-01-27] MEDS: Lactated Ringers 1,000 ML 50 ML IVCONT (06:58)
--- NOTE | 2024-01-27 07:11 | HO.ECTPROC ---
ECT Procedure Note Diagnosis/Treatment Date of Service: 01/27/24 Diagnosis: Catatonia and Schizoaffective Disorder Previous ECT Date: 01/20/24 Current Treatment Number: 13 Treatment: Series Interval Clinical Notes: The patient reported resolution of catatonia, still some dysphoria but we have noticed that she has a brighter affect, responding appropriately. No side effects with previous ECT. ECT done as usual, no complications, woke up well, no need of use of Propofol Time: Total time managing care of this patient today ____ minutes. ECT Settings Device: THYMATRON DGx Electrode Placement: Right Unilateral Program/Pulse Width: 0.25 Energy Percent: 20 Seizure Duration By EEG (in seconds): 40 By Motor Observation (in seconds): 31 Medications Administration General Anesthetic: Etomidate (14) Muscle Relaxant: Succinylcholine (80) Ancillary Medications Analgesics: Torodol - Pre ECT Anti-emetics: Zofran - Pre ECT Cardiovascular Medications: Esmolol (40 mg pre-ECT) Airway Management Airway Management: Bag Mask Ventilation Treatment Recommendations No Changes Recommended: No change Pt Tolerated Procedure w/o Issue: Yes
== END 2024-01-27 08:15 | disposition home or self-care (01) ==
PROVIDERS: PCP Internal Medicine; Visit Provider Psychiatry & Neurology Psychiatry
PROC: (CPT 90870; principal; 2024-01-27 08:30)
DX: F25.9 Schizoaffective disorder, unspecified (principal); F06.1 Catatonic disorder due to known physiological condition
CPT/HCPCS: 90870; J0330; J1805; J2405; J2704

== ENCOUNTER → 2024-01-27 05:44 | Outpatient (BNV) | payer OTHER, SELFPAY | PROVIDERS: PCP Internal Medicine; Visit Provider Psychiatry & Neurology Psychiatry | DX: F33.3 Major depressive disorder, recurrent, severe with psychotic symptoms (principal) | CPT/HCPCS: 90870 ==

== ENCOUNTER 2024-01-29 10:26 | Outpatient (REF) | payer OTHER, SELFPAY ==
[2024-01-29 11:03] LABS: Neut%MD 59.8 %; Neutrophils Absolute Auto 4.9 x10*3/uL (2.0-8.3); WBCANC 8.1 X10*3/uL
== END 2024-01-29 10:27 | disposition home or self-care (01) ==
LOC: HO.LAB 10:26
PROVIDERS: PCP Internal Medicine; Visit Provider Psychiatry & Neurology Psychiatry
DX: Z51.81 Encounter for therapeutic drug level monitoring (principal)
CPT/HCPCS: 36415; 85048

== ENCOUNTER 2024-01-31 05:46 | Day surgery (SDC) | payer OTHER, SELFPAY ==
[2024-01-31] VITALS (7 sets, daily range): BP systolic 103–133; BP diastolic 66–96; PULSE 88–121; RESP 16–18; TEMP 36.4–36.5; O2SAT 97–100; BMI 25.4
--- NOTE | 2024-01-31 06:47 | HO.ANESPROP2 ---
[facility] Active Problems Active Problems: All Active Problems Catatonia (Acute) Bipolar disorder in remission (Acute) Pre-op evaluation (Acute) Supraventricular tachycardia (Acute) Schizoaffective disorder (Acute) Intellectual disability (Acute) Contraception management (Acute) Vitamin D deficiency (Acute) Vitamin B12 deficiency (Acute) Uses control (Acute) Supraventricular tachycardia by ECG (Acute) Migraine (Acute) Past Medical History Medical History Major depressive disorder, recurrent episode, severe, with psychosis Bipolar disorder in remission Supraventricular tachycardia Schizoaffective disorder Intellectual disability Contraception management Vitamin D deficiency Vitamin B12 deficiency Uses control Hx of ovarian cyst Epigastric abdominal pain Orthostatic hypotension Supraventricular tachycardia by ECG Left ovarian cyst Migraine Family History Family History Mother Bipolar disorder Mental health disorder Family history of problems with anesthesia: No Surgical History Surgical History H/O removal of cyst History of Problems with Anesthesia: No Social History Social History Household Members: Family Household Members Other:: Pt unable to answer questions d/t mental status. Housing: House Housing Other:: at home with mother Are you a primary animal care taker to a significant other at home: No Alcohol intake: never Patient Tobacco Use Status: Never used Tobacco e-Cigarette/Vaping Use: Never Used Second Hand Smoke Exposure: No Substance Use Type: Unknown Advance Directives: No Advance Directives Information Provided: Yes Advance Directives Date on File: 12/10/23 service: No Current occupational status: unemployed Sexual orientation: Straight/Heterosexual Gender identity: Female Cognitive needs: No Hearing needs: No Vision needs: No Meds Allergies Allergy/AdvReac Type Severity Reaction Status Date / Time haloperidol AdvReac EPS Verified 01/18/24 17:08 metoprolol AdvReac Diarrhea Verified 01/18/24 17:08 Exam Height,Weight and Vital Signs: Height 5 ft Weight 58.967 kg Last Vital Signs Temp 97.5 F 01/31/24 06:16 Pulse 114 H 01/31/24 06:16 Resp 17 01/31/24 06:16 BP 133/91 H 01/31/24 06:16 Pulse Ox 100 01/31/24 06:16 O2 Del Method Room Air 01/31/24 06:16 Airway Mallampati Class: II TM Dist: >3cm Neck ROM: Full Heart: rrr Lungs: cta Assessment and Plan Assessment Anesthesia Assessment: Anesthesia Plan Discussed and Chart Reviewed Final Anesthetic Review Family History of Problems with Anesthesia: No History of Problems with Anesthesia: No NPO: Yes ASA Class: III Final Preanesthetic Review: No Changes in Pt Med Stat, Meds/Allgs Chart Reviewed and Consent Obtained/Reviewed Patient Risk: Intermediate Procedure Risk: Intermediate Anesthetic Plan Anesthetic Plan: GA Disposition: Standard PACU
--- NOTE | 2024-01-31 07:14 | MHC.SHP ---
Pre-Procedural Eval Section A - 24 Hr Update-Section A only Date of Service: 01/31/24 Section B - Complete if H&P > 30 days Chief Complaint: depression Details of Present Illness: recurrent depression catatonia doing better\no gastelum mood stable Medical History: Significant History Allergies: Allergies Allergy/AdvReac Type Severity Reaction Status Date / Time haloperidol AdvReac EPS Verified 01/18/24 17:08 metoprolol AdvReac Diarrhea Verified 01/18/24 17:08 Review of Systems Sugical H&P ROS: Negative: Constitution, Cardiovascular, Respiratory, Neurological and Psychiatric (no PI gastelum no joana ) Exam Surgical H&P Exam: Normal: Heart, Normal: Lungs and Normal: Neurological Plan I have reviewed the history and physical and performed a pertinent physical examination on my patient. No changes have occurred unless specified. Time Spent With Patient Time: Total time managing care of this patient today ____ minutes.
--- NOTE | 2024-01-31 07:29 | HO.ECTPROC ---
ECT Procedure Note Diagnosis/Treatment Date of Service: 01/31/24 Diagnosis: Bipolar disorder Previous ECT Date: 01/20/24 Current Treatment Number: 14 Treatment: Series Interval Clinical Notes: pt generally doing ok denies gastelum or PI full affect ect completed without difficulty Time: Total time managing care of this patient today ____ minutes. ECT Settings Device: THYMATRON DGx Electrode Placement: Right Unilateral Program/Pulse Width: 0.25 Energy Percent: 20 Seizure Duration By EEG (in seconds): 51 Medications Administration General Anesthetic: Etomidate (14) Muscle Relaxant: Succinylcholine (80) Ancillary Medications Analgesics: Torodol - Pre ECT Anti-emetics: Zofran - Pre ECT Cardiovascular Medications: Esmolol (40 mg pre-ECT) Airway Management Airway Management: Bag Mask Ventilation Treatment Recommendations No Changes Recommended: No change Notes: f/u treatment 02/10/24 Pt Tolerated Procedure w/o Issue: Yes
--- NOTE | 2024-01-31 07:30 | MHC.SHP ---
Pre-Procedural Eval Section A - 24 Hr Update-Section A only Date of Service: 01/31/24 Changes since office visit: Yes Changes in Medication and Yes Patient answered all questions; No Cold of Flu in the past 2 weeks and No New Medical Problems The patient has been examined within 24 hours of the surgical procedure. The History & Physical has been completed within 30 days and I have reviewed it.: Yes Section B - Complete if H&P > 30 days Chief Complaint: depression Allergies: Allergies Allergy/AdvReac Type Severity Reaction Status Date / Time haloperidol AdvReac EPS Verified 01/18/24 17:08 metoprolol AdvReac Diarrhea Verified 01/18/24 17:08 Plan I have reviewed the history and physical and performed a pertinent physical examination on my patient. No changes have occurred unless specified. Time Spent With Patient Time: Total time managing care of this patient today ____ minutes.
--- NOTE | 2024-01-31 13:39 | PM.EVENT ---
Event Note Date of Service: 01/31/24 Event Note: Patient's mother called and asked for refill on Clozaril which was sent. Mother reports her daughter seems to be doing well. Discussed plan going forward: 1.?She will continue to get Clozaril 100 mg q.h.s. 2. Preeti is scheduled to see her new provider Dr. Castro ([facility]) on February 25 3. For now, she should continue to get ECT 1/week to once every 1.5 weeks. Once she has her appointment with Dr. Castro we can confer and see if Clozaril 100 mg is enough and she no longer needs ECT or... if her dose needs to go higher (during which time she would likely need to remain with weekly ECT). Business Planning Manager communicated this with Dr. Méndez and Dr. Ackerman Time Spent With Patient Time: Total time managing care of this patient today ____ minutes.
== END 2024-01-31 08:30 | disposition home or self-care (01) ==
PROVIDERS: PCP Internal Medicine; Visit Provider Psychiatry & Neurology Psychiatry
PROC: (CPT 90870; principal; 2024-01-31 07:30)
DX: F31.9 Bipolar disorder, unspecified (principal); F41.9 Anxiety disorder, unspecified; Z79.899 Other long term (current) drug therapy
CPT/HCPCS: 90870; 92950; J0330; J1805; J2405

== ENCOUNTER → 2024-01-31 05:46 | Outpatient (BNV) | payer OTHER, SELFPAY | PROVIDERS: PCP Internal Medicine; Visit Provider Psychiatry & Neurology Psychiatry | DX: F33.3 Major depressive disorder, recurrent, severe with psychotic symptoms (principal) | CPT/HCPCS: 90870 ==

== ENCOUNTER 2024-02-05 06:08 | Outpatient (REF) | payer OTHER, SELFPAY ==
[2024-02-05 07:50] LABS: Neut%MD 68.1 %; Neutrophils Absolute Auto 6.4 x10*3/uL (2.0-8.3); WBCANC 9.4 X10*3/uL
== END 2024-02-05 06:09 | disposition home or self-care (01) ==
LOC: HO.LAB 06:08
PROVIDERS: PCP Internal Medicine; Visit Provider Psychiatry & Neurology Psychiatry
DX: Z51.81 Encounter for therapeutic drug level monitoring (principal)
CPT/HCPCS: 36415; 85048

== ENCOUNTER 2024-02-06 09:44 | Outpatient (AMB) | payer MEDICAID, SELFPAY ==
[2024-02-06 09:51] VITALS: BP 120/76; PULSE 134; TEMP 36.9; O2SAT 99; BMI 33.6
--- NOTE | 2024-02-06 09:51 | AM.OFFWIN_ITS ---
Intake Vital Signs 02/06/24 09:51 02/06/24 10:26 Height 5 ft Weight 172 lb BMI 33.6 BP 120/76 Blood Pressure Location Lt brachial Position Sitting Pulse 134 H 120 H Pulse Source Pulse Oximeter Pulse Oximeter Temp 98.4 F Temp Source Temporal Artery Scan Pulse Oximetry (%) 99 Oxygen Delivery Method Room Air Intake Visit Reasons: EP missed periods 4 months, Diff walking Intake Note: pt is here today for missed periods started 4 months ago and diff walking Patient Tobacco Use Status: Never used Tobacco Allergies haloperidol Adverse Reaction (Verified 02/06/24 09:58) EPS metoprolol Adverse Reaction (Verified 02/06/24 09:58) Diarrhea Do you need a note to return to daycare/school/sports/work: No HPI HPI Comments History of Present Illness Details Patient is a 23-year-old female who is here with her mother complaining of a missed period for 4 months. She is sexually active with her boyfriend. She states she is not on any control, she does not have an IUD. Her mother states the patient did have an appointment with Mary Mcclure CNM, but they had to cancel the appointment because the patient was hospitalized. She has been receiving ECT treatments and taking her normal clonidine, clozapine and trazodone. She was in the ER recently and had some labs done, she is unsure which labs. She denies any heart palpitations or chest pain. She is also complaining of bilateral tingling and pain in her feet, and a little bit of pain when she walks, although her mother states this is a chronic issue. ON LICENSE OF [facility] Medical History Major depressive disorder, recurrent episode, severe, with psychosis Bipolar disorder in remission Supraventricular tachycardia Schizoaffective disorder Intellectual disability Contraception management Vitamin D deficiency Vitamin B12 deficiency Uses control Hx of ovarian cyst Epigastric abdominal pain Orthostatic hypotension Supraventricular tachycardia by ECG Left ovarian cyst Migraine Surgical History H/O removal of cyst Family History Mother Bipolar disorder Mental health disorder Social History Household Members: Family Household Members Other:: Pt unable to answer questions d/t mental status. Housing: House Housing Other:: at home with mother Are you a primary rn coronary care unit to a significant other at home: No Alcohol intake: never Patient Tobacco Use Status: Never used Tobacco e-Cigarette/Vaping Use: Never Used Second Hand Smoke Exposure: No Substance Use Type: Unknown Advance Directives Date on File: 12/10/23 service: No Current occupational status: unemployed Sexual orientation: Straight/Heterosexual Gender identity: Female Cognitive needs: No Hearing needs: No Vision needs: No Female Reproductive History Menstrual Age of Menarche: 14 Review of Systems Const All systems reviewed & are unremarkable except as noted in HPI and below Physical Exam Vital Signs: Last Vital Signs Temp 98.4 F 02/06/24 09:51 Pulse 134 H 02/06/24 09:51 BP 120/76 02/06/24 09:51 Pulse Ox 99 02/06/24 09:51 Oxygen Delivery Method Room Air 02/06/24 09:51 BMI result Body Mass Index 33.6 Const General: cooperative, healthy appearing, comfortable, no acute distress and well developed Orientation/consciousness: patient oriented x3 Limitations: no limitations HEENT Head: Yes normal to inspection Eyes General: appearance normal, both eyes and all related structures Neck Neck: Yes normal visual inspection and Yes full ROM Resp Effort & Inspection: normal respiratory effort and able to speak in complete sentences Cardio Rate: regular rate Rhythm: regular rhythm Skin General skin exam: no rashes or lesions noted Neuro General: patient oriented x3 Extrem General: Yes normal to inspection Results AMB Test Urine AMB Test Urine Negative Last Edit by FLAKITO Murillo on 02/06/24 10:03 Results Reviewed Results Reviewed: Laboratory Last Values [facility] Clinic Negative 02/06/24 10:03 Reviewed recent labs from the emergency department which show her TSH is in the normal range Assessment & Plan Assessment & Plan (1) Missed menses: Code(s): N92.6 - Irregular menstruation, unspecified Plan: test negative today. Recommended rescheduling the appointment with Mary Soni CNM. Did discuss her TSH level and while it is in the normal range, it is on the low end and with a tachycardia and no menstruation for 4 months, it could be related and to discuss this with Mary, but she should rule out a gynecological issue first. (2) Tachycardia with heart rate 121-140 beats per minute: Code(s): R00.0 - Tachycardia, unspecified Plan: Reviewed recent ED visit, patient was in sinus tachycardia and all of her labs were normal. patient also wore a Holter monitor through Cardiology, was in a sinus rhythm although tachycardic. Recommended following up with her PCP or health support specialist; if she becomes symptomatic, to call 911 Plan See above Orders: Orders AMB HCG Urine Test Today Z32.02 - Encounter for test, result negative Coding Level of Care Code Est Pt Level 4 (38129) Diagnoses Missed menses N92.6 Tachycardia with heart rate 121-140 beats per minute R00.0
[2024-02-06 10:26] VITALS: PULSE 120
== END 2024-02-06 10:57 | disposition home or self-care (01) ==
PROVIDERS: PCP Internal Medicine; Visit Provider Physician Assistant
DX: Z32.02 Encounter for pregnancy test, result negative (principal)
CPT/HCPCS: 81025; 99214

== ENCOUNTER 2024-02-10 05:49 | Day surgery (SDC) | payer OTHER, SELFPAY ==
[2024-02-10 06:30] VITALS: BP 145/76; PULSE 119; RESP 20; TEMP 35.9; O2SAT 99; BMI 27.3
--- NOTE | 2024-02-10 06:37 | HO.ANESPROP2 ---
[facility] Active Problems Active Problems: All Active Problems Tachycardia with heart rate 121-140 beats per minute (Acute) Missed menses (Acute) Catatonia (Acute) Bipolar disorder in remission (Acute) Pre-op evaluation (Acute) Supraventricular tachycardia (Acute) Schizoaffective disorder (Acute) Intellectual disability (Acute) Contraception management (Acute) Vitamin D deficiency (Acute) Vitamin B12 deficiency (Acute) Uses control (Acute) Supraventricular tachycardia by ECG (Acute) Migraine (Acute) Past Medical History Medical History Major depressive disorder, recurrent episode, severe, with psychosis Bipolar disorder in remission Supraventricular tachycardia Schizoaffective disorder Intellectual disability Contraception management Vitamin D deficiency Vitamin B12 deficiency Uses control Hx of ovarian cyst Epigastric abdominal pain Orthostatic hypotension Supraventricular tachycardia by ECG Left ovarian cyst Migraine Family History Family History Mother Bipolar disorder Mental health disorder Family history of problems with anesthesia: No Surgical History Surgical History H/O removal of cyst History of Problems with Anesthesia: No Social History Social History Household Members: Family Household Members Other:: Pt unable to answer questions d/t mental status. Housing: House Housing Other:: at home with mother Are you a primary skin care technician to a significant other at home: No Alcohol intake: never Patient Tobacco Use Status: Never used Tobacco e-Cigarette/Vaping Use: Never Used Second Hand Smoke Exposure: No Substance Use Type: Unknown Advance Directives: No Advance Directives Information Provided: Yes Advance Directives Date on File: 12/10/23 service: No Current occupational status: unemployed Sexual orientation: Straight/Heterosexual Gender identity: Female Cognitive needs: No Hearing needs: No Vision needs: No Meds Allergies Allergy/AdvReac Type Severity Reaction Status Date / Time haloperidol AdvReac EPS Verified 02/06/24 09:58 metoprolol AdvReac Diarrhea Verified 02/06/24 09:58 Active Medications: Current Medications Lactated Ringer's (Lr) 1,000 mls @ 50 mls/hr IVCONT .Q20H KRISTI Exam Height,Weight and Vital Signs: Height 5 ft Weight 63.503 kg Last Vital Signs Temp 96.7 F L 02/10/24 06:30 Pulse 119 H 02/10/24 06:30 Resp 20 02/10/24 06:30 BP 145/76 H 02/10/24 06:30 Pulse Ox 99 02/10/24 06:30 O2 Del Method Room Air 02/10/24 06:30 Airway Mallampati Class: II TM Dist: >3cm Neck ROM: Full Heart: rrr Lungs: cta Assessment and Plan Assessment Anesthesia Assessment: Anesthesia Plan Discussed and Chart Reviewed Final Anesthetic Review Family History of Problems with Anesthesia: No History of Problems with Anesthesia: No NPO: Yes ASA Class: III Final Preanesthetic Review: No Changes in Pt Med Stat, Meds/Allgs Chart Reviewed and Consent Obtained/Reviewed Patient Risk: Intermediate Procedure Risk: Intermediate Anesthetic Plan Anesthetic Plan: GA Disposition: Standard PACU
--- NOTE | 2024-02-10 07:23 | MHC.SHP ---
Pre-Procedural Eval Section A - 24 Hr Update-Section A only Date of Service: 02/10/24 The patient is an INPATIENT: No Changes since office visit: No Cold of Flu in the past 2 weeks, No New Medical Problems, No Changes in Medication and No Patient answered all questions The patient has been examined within 24 hours of the surgical procedure. The History & Physical has been completed within 30 days and I have reviewed it.: Yes Section B - Complete if H&P > 30 days Chief Complaint: depression Allergies: Allergies Allergy/AdvReac Type Severity Reaction Status Date / Time haloperidol AdvReac EPS Verified 02/06/24 09:58 metoprolol AdvReac Diarrhea Verified 02/06/24 09:58 Plan I have reviewed the history and physical and performed a pertinent physical examination on my patient. No changes have occurred unless specified. Time Spent With Patient Time: Total time managing care of this patient today ____ minutes.
--- NOTE | 2024-02-10 07:23 | HO.ECTPROC ---
ECT Procedure Note Diagnosis/Treatment Date of Service: 02/10/24 Diagnosis: Bipolar disorder and Catatonia Interval Clinical Notes: The patient reported a panic attack before coming here, she reported mild oversedation after last ECT. ECT done as usual but she had a very long seizure that we needed to stop it with Propofol. Woke up without problems. Time: Total time managing care of this patient today _30___ minutes. ECT Settings Device: THYMATRON DGx Electrode Placement: Right Unilateral Program/Pulse Width: 0.25 Energy Percent: 20 Seizure Duration By EEG (in seconds): 189 By Motor Observation (in seconds): 57 Medications Administration General Anesthetic: Etomidate (14) Muscle Relaxant: Succinylcholine (80) Ancillary Medications Anti-emetics: Zofran - Pre ECT Cardiovascular Medications: Other (Esmolol 10 pre ECT) Miscillaneous Medications: Propofol (30 mg post ECT to stop seizure) Airway Management Airway Management: Bag Mask Ventilation Treatment Recommendations Electrode Placement: Right Unilateral Program/Pulse Width: 0.25 Energy Percent: 15 Pt Tolerated Procedure w/o Issue: Yes
[2024-02-10 07:36] VITALS: BP 118/75; PULSE 103; RESP 15; TEMP 36.3; O2SAT 94
[2024-02-10 07:41] VITALS: BP 127/80; PULSE 120; RESP 20; O2SAT 96
[2024-02-10 07:46] VITALS: BP 144/85; PULSE 123; RESP 20; O2SAT 96
[2024-02-10 07:51] VITALS: BP 136/98; PULSE 117; RESP 16; O2SAT 96
[2024-02-10] MEDS: Lactated Ringers 1,000 ML 50 ML IVCONT (08:01)
[2024-02-10 08:06] VITALS: BP 131/85; PULSE 118; RESP 16; TEMP 36.3; O2SAT 97
== END 2024-02-10 08:33 | disposition home or self-care (01) ==
PROVIDERS: PCP Internal Medicine; Visit Provider Psychiatry & Neurology Psychiatry
PROC: (CPT 90870; principal; 2024-02-10 07:30)
DX: F31.2 Bipolar disorder, current episode manic severe with psychotic features (principal); F06.1 Catatonic disorder due to known physiological condition; F79 Unspecified intellectual disabilities; I95.9 Hypotension, unspecified; Z79.899 Other long term (current) drug therapy; Z88.8 Allergy status to other drugs, medicaments and biological substances
CPT/HCPCS: 90870; J0330; J1805; J2405; J2704

== ENCOUNTER → 2024-02-10 05:49 | Outpatient (BNV) | payer OTHER, SELFPAY | PROVIDERS: PCP Internal Medicine; Visit Provider Psychiatry & Neurology Psychiatry | DX: F33.3 Major depressive disorder, recurrent, severe with psychotic symptoms (principal) | CPT/HCPCS: 90870 ==

== ENCOUNTER 2024-02-12 11:40 | Outpatient (REF) | payer OTHER, SELFPAY ==
[2024-02-12 12:18] LABS: Neut%MD 60.6 %; Neutrophils Absolute Auto 4.5 x10*3/uL (2.0-8.3); WBCANC 7.4 X10*3/uL
== END 2024-02-12 11:41 | disposition home or self-care (01) ==
LOC: HO.LAB 11:40
PROVIDERS: PCP Internal Medicine; Visit Provider Psychiatry & Neurology Psychiatry
DX: Z51.81 Encounter for therapeutic drug level monitoring (principal)
CPT/HCPCS: 36415; 85048

== ENCOUNTER 2024-02-21 09:04 | Outpatient (REF) | payer OTHER, SELFPAY ==
[2024-02-21 09:41] LABS: Neut%MD 56.5 %; Neutrophils Absolute Auto 3.8 x10*3/uL (2.0-8.3); WBCANC 6.8 X10*3/uL
== END 2024-02-21 09:05 | disposition home or self-care (01) ==
LOC: HO.LAB 09:04
PROVIDERS: PCP Internal Medicine; Visit Provider Psychiatry & Neurology Psychiatry
DX: Z51.81 Encounter for therapeutic drug level monitoring (principal)
CPT/HCPCS: 36415; 85048

== ENCOUNTER 2024-02-25 05:22 | Emergency (ER) | payer OTHER, SELFPAY ==
--- NOTE | ~2024-02-25 | US_ITS ---
EXAMINATION: US PELVIS CLINICAL INFORMATION: Left lower quadrant pain COMPARISON: Ultrasound pelvis from 10/19/2023 TECHNIQUE: Ultrasound of the pelvis is performed using both transabdominal and transvaginal transducers along with Doppler. Transvaginal imaging is performed due to inadequate visualization transabdominally. FINDINGS: UTERUS: Anteverted. Normal size and contour, measuring 6.3 x 2.4 x 2.8 cm (cervix to fundus x AP x transverse). Endometrium not well visualized. RIGHT OVARY: Right ovary not well visualized. LEFT OVARY: Left ovary measures 4.9 x 5.8 x 5.6 cm, volume 83.3 mL. Vascular flow of the left ovary noted. Redemonstrated simple appearing cystic focus of the left ovary measuring 4.5 x 4.6 x 5.1 cm previously measuring 4.0 x 3.3 x 43 cm. Redemonstrated FREE FLUID: No pelvic free fluid. US/US pelvic ovarian doppler IMPRESSION: 1. Redemonstrated simple appearing cystic focus of the left ovary measuring 4.5 x 4.6 x 5.1 cm previously measuring 4.0 x 3.3 x 43 cm. 2. Vascular flow of the left ovary noted. 3. Right ovary not well visualized. 4. Endometrium not well visualized.
--- NOTE | ~2024-02-25 | US_ITS ---
EXAMINATION: US PELVIS CLINICAL INFORMATION: Left lower quadrant pain COMPARISON: Ultrasound pelvis from 10/19/2023 TECHNIQUE: Ultrasound of the pelvis is performed using both transabdominal and transvaginal transducers along with Doppler. Transvaginal imaging is performed due to inadequate visualization transabdominally. FINDINGS: UTERUS: Anteverted. Normal size and contour, measuring 6.3 x 2.4 x 2.8 cm (cervix to fundus x AP x transverse). Endometrium not well visualized. RIGHT OVARY: Right ovary not well visualized. LEFT OVARY: Left ovary measures 4.9 x 5.8 x 5.6 cm, volume 83.3 mL. Vascular flow of the left ovary noted. Redemonstrated simple appearing cystic focus of the left ovary measuring 4.5 x 4.6 x 5.1 cm previously measuring 4.0 x 3.3 x 43 cm. Redemonstrated FREE FLUID: No pelvic free fluid. US/US pelvic complete IMPRESSION: 1. Redemonstrated simple appearing cystic focus of the left ovary measuring 4.5 x 4.6 x 5.1 cm previously measuring 4.0 x 3.3 x 43 cm. 2. Vascular flow of the left ovary noted. 3. Right ovary not well visualized. 4. Endometrium not well visualized.
--- NOTE | ~2024-02-25 | CT_ITS ---
EXAMINATION: CT ABDOMEN AND PELVIS WITH CONTRAST CLINICAL INFORMATION: Left lower quadrant pain COMPARISON: Ultrasound pelvis from 02/25/2024 TECHNIQUE: Multidetector volumetric images were obtained from the superior aspect of the liver through the pubic symphysis following administration 85 mL of Omnipaque 350 intravenous contrast. Sagittal and coronal reformatted images were obtained on the technologist's workstation. Oral contrast: No This CT examination was performed using dose optimization techniques as appropriate, variously including the following: *Automated exposure control *Adjustment of mA and/or kV according to patient size (this includes techniques or standardized protocols for targeted exams where dose is matched to indication/reason for exam; i.e. extremities or head) *Use of iterative reconstruction technique DLP: 709 mGy-cm FINDINGS: LUNG BASES: No pneumothorax. No large pleural effusion. LIVER, GALLBLADDER, AND BILIARY TREE: The liver is normal in size, shape, and attenuation. No focal hepatic lesion or biliary ductal dilatation is present. The gallbladder is unremarkable with no evidence of radiopaque gallstones, gallbladder wall thickening, or obvious pericholecystic inflammatory changes. PANCREAS: Unremarkable. SPLEEN: Spleen is enlarged measuring 14.1 cm. ADRENAL GLANDS: Unremarkable. KIDNEYS AND URETERS: The kidneys are normal in size, shape, and attenuation. No hydronephrosis, hydroureter, or calculi seen. No perinephric stranding. BLADDER: Unremarkable. GASTROINTESTINAL TRACT: The small and large bowel are unremarkable. The appendix is unremarkable. ABDOMINAL WALL: Slight soft tissue edema of the bilateral anterior phalanx, nonspecific. LYMPH NODES: Normal. VASCULAR: Unremarkable. PELVIC VISCERA: Anteverted uterus. Redemonstrated left ovarian cystic focus measuring 5.4 cm better evaluated on contemporaneous pelvic ultrasound. Findings likely represent a probable benign cyst. Recommend follow-up ultrasonography in 3-6 months. Trace free fluid in the pelvis. OSSEOUS STRUCTURES: Unremarkable. CT/CT abdomen pelvis w IV con IMPRESSION: 1. Redemonstrated left ovarian cystic focus measuring 5.4 cm better evaluated on contemporaneous pelvic ultrasound. Findings likely represent a probable benign cyst. Recommend follow-up ultrasonography in 3-6 months. 2. Spleen is enlarged measuring 14.1 cm.
[2024-02-25 05:31] VITALS: BP 138/92; PULSE 113; RESP 16; TEMP 37.1; O2SAT 99; BMI 35.8
[2024-02-25 05:51] LABS: Basophils Percent Auto 0.5 % (0-2); Eosinophils Percent Auto 0.2 % (0-4); Hematocrit 35.2 % (37.0-47.0); Hemoglobin 11.5 g/dl (12.0-16.0); Imm Gran Abs Auto 0.02 X10*3/uL (0.00-0.03); Imm Gran Pct Auto 0.2 % (0.0-0.4); Lymphocytes Absolute Auto 1.1 X10*3/uL (1.2-4.9); Lymphocytes Percent Auto 12.2 % (20-40); MANUAL DIFF FLAG NO; Mean Corpuscular HGB Conc 32.7 g/dl (31.0-35.0); Mean Corpuscular Hemoglobin 26.2 pg (27.0-33.0); Mean Corpuscular Volume 80.2 fL (80.0-98.0); Mean Platelet Volume 9.4 fL (9.4-12.3); Monocytes Absolute Auto 0.5 X10*3/uL (0.1-1.2); Neutrophils Absolute Auto 7.2 x10*3/uL (2.0-8.3); Neutrophils Percent Auto 80.9 % (45-73); Platelet Count 381 X10*3/uL (160-400); Red Blood Count 4.39 X10*6/uL (4.20-5.50); Red Cell Distribution Width 14.8 % (11.0-16.0); White Blood Count 8.9 X10*3/uL (4.8-10.8)
[2024-02-25 06:10] LABS: Anion Gap 13 (12-20); Blood Urea Nitrogen 6 mg/dL (9-16); Calcium 9.3 mg/dL (8.4-10.2); Carbon Dioxide 21 mmol/L (22-29); Chloride 105 mmol/L (96-108); Creatinine Clr Calc Pharmacy 151.9; Estimated Glomerular Filt Rate > 60; Glucose Random 128 mg/dL (60-115); Sodium 135 mmol/L (135-145)
--- NOTE | 2024-02-25 06:49 | MHC.EDTECH ---
Patient not able to give urine sample at this time .
[2024-02-25 06:56] VITALS: BP 144/87; PULSE 114; RESP 18; TEMP 36.8; O2SAT 97
--- NOTE | 2024-02-25 07:00 | ECG_ITS ---
Test Reason : PALPATATIONS Blood Pressure : / mmHG Vent. Rate : 115 BPM Atrial Rate : 115 BPM P-R Int : 170 ms QRS Dur : 082 ms QT Int : 310 ms P-R-T Axes : 030 059 005 degrees QTc Int : 428 ms Sinus tachycardia Nonspecific T wave abnormality Abnormal ECG When compared with ECG of 18-JAN-2024 16:58, No significant change was found Referred By: Ml Tan Electronically Signed By:Aníbal Montez
--- NOTE | 2024-02-25 07:04 | ED.ABDPAIN ---
HPI - Abdominal Pain General Chief Complaint: Abdominal Pain Stated Complaint: L flank pain/Vomiting Time Seen by Provider: 02/25/24 06:43 History of Present Illness HPI narrative: 23 year old female with a PMHx of SVT, schizoaffective disorder, bipolar, ovarian cyst, migraines and MDD with pyshocsis presents to the ER with mother at beside due to left lower abdominal pain that began yesterday. States it feels sharp and does not radiate anywhere else. Reports not menstruating for 5 months and menses began yesterday. Associated symptoms include nausea, vomiting, and palpitations. States the pain kept patient up overnight. Notes taking Tylenol for pain with no relief. Reports difficulty urinating, denies urgency and frequency. Denies fever, chills, chest pain, palpitations, back or flank pain. Related Data Previous Rx's ?Medication ?Instructions ?Recorded clonidine HCl 0.1 mg tablet 0.1 mg PO Q4H PRN anxiety 30 days 01/08/24 #30 tabs lidocaine 5 % topical ointment 1 appl topical Q7D PRN numb area 01/08/24 prior to blood draw 30 days #35.44 grams ondansetron 4 mg disintegrating 4 mg translingual Q6H PRN Nausea 01/08/24 tablet And Vomiting 30 days #30 tabs trazodone 50 mg tablet 50 mg PO BEDTIME PRN Insomnia 30 01/08/24 days #30 tabs clozapine 100 mg tablet 100 mg PO BEDTIME 30 days #30 tabs 01/31/24 ketorolac 10 mg tablet 10 mg PO TID PRN pain 5 days #15 02/25/24 tabs nitrofurantoin 100 mg PO BID 5 days #10 caps 02/25/24 monohydrate/macrocrystals 100 mg capsule (Macrobid) Allergies Allergy/AdvReac Type Severity Reaction Status Date / Time haloperidol AdvReac EPS Verified 02/25/24 05:34 metoprolol AdvReac Diarrhea Verified 02/25/24 05:34 Review of Systems Review of Systems Yes all other systems are reviewed and are negative Constitutional: Reports as per HPI Eyes: Reports as per HPI Reports as per HPI Cardiovascular: Reports as per HPI Respiratory: Reports as per HPI Gastrointestinal: Reports as per HPI Genitourinary: Reports as per HPI Musculoskeletal: Reports as per HPI Reports as per HPI Psychiatric: Reports as per HPI Endocrine: Reports as per HPI Hematologic/Lymphatic: Reports as per HPI Allergic/Immunologic: Reports as per HPI PMFSH Past Medical History Medical History Major depressive disorder, recurrent episode, severe, with psychosis Bipolar disorder in remission Supraventricular tachycardia Schizoaffective disorder Intellectual disability Contraception management Vitamin D deficiency Vitamin B12 deficiency Uses control Hx of ovarian cyst Epigastric abdominal pain Orthostatic hypotension Supraventricular tachycardia by ECG Left ovarian cyst Migraine Surgical History H/O removal of cyst Family History Family History Mother Bipolar disorder Mental health disorder Social History Social History Household Members: Family Household Members Other:: Pt unable to answer questions d/t mental status. Housing: House Housing Other:: at home with mother Are you a primary home care and home health aides teacher to a significant other at home: No Alcohol intake: never Patient Tobacco Use Status: Never used Tobacco Smoked in Last 30 Days: No e-Cigarette/Vaping Use: Never Used Second Hand Smoke Exposure: No Use of substances other than those prescribed or required for medical reasons: No Substance Use Type: Unknown Advance Directives: Yes Advance Directives on File: Yes Advance Directives Date on File: 12/10/23 Do you have a plan to hurt others: No Plan Patient : No service: No Current occupational status: unemployed Sexual orientation: Straight/Heterosexual Gender identity: Female Cognitive needs: No Hearing needs: No Vision needs: No Physical Exam ED Vital Signs: Vital Signs - 24 hr 02/25/24 05:31 02/25/24 06:56 02/25/24 08:31 Temperature 98.7 F 98.2 F 98.1 F Pulse Rate 113 H 114 H 105 H Respiratory Rate 16 18 18 Blood Pressure 138/92 H 144/87 H 154/95 H Pulse Oximetry 99 97 100 Oxygen Delivery Method Room Air Room Air Room Air BMI result Body Mass Index 35.8 Const General: cooperative Orientation/consciousness: patient oriented x3 HENMT Head: Yes normal to inspection Ears: hearing grossly normal bilaterally General nose exam: Normal external nose present Face and sinus: Yes normal facial exam Eyes General: appearance normal, both eyes and all related structures Eyelids: Yes eyelids normal Conjunctivae: conjunctivae normal Sclerae: sclerae normal Corneas: corneas normal Pupils: Equal, round and reactive pupils present Neck Neck: Yes normal visual inspection Chest Chest palpation & inspection: normal inspection of the chest Resp Effort & Inspection: normal respiratory effort and able to speak in complete sentences Auscultation: clear to auscultation bilaterally Cardio Rate: tachycardic Rhythm: regular rhythm GI Inspection: Yes normal to inspection, No distended and No Kehr's sign positive Palpation (GI): Soft to palpation, Tenderness to palpation present (GI) and No Rebound tenderness present Percussion: Yes normal to percussion Auscultation: normal bowel sounds Neuro General: patient oriented x3 Cranial nerves: Yes Equal, round and reactive pupils present Psych Appearance: grossly normal Speech and movement: Normal speech and movement present Affect: normal affect Attitude: cooperative Thought process: Normal thought process present Thought content: Normal thought content present Insight: Good insight present (Psych) Judgement: Good judgement present (Psych) Course Reevaluation(s) Reevaluation #1: CBC with a normocytic anemia appears to be around patient's baseline. This could be also secondary to menses which she is currently on. Chemistry no acute findings requiring intervention. Normal beta hCG. UA with 1+ bacteria and large amount of blood. Will treat for UTI. Doppler study redemonstrated simple appearing cystic focus of the left ovary measuring 4.5 x 4.6 x 5.1 cm, vascular flow the left ovary noted. Right ovary not well visualized however patient's pain is not localized to the right side. Endometrium not well visualized. Enlarged spleen 14.1 cm. Redemonstration of left ovarian cystic focus on CT. Recommend follow-up with OBGYN. Educated patient on diagnosis and treatment plan, answered all question, patient verbalizes understanding. At this time patient will be discharged home, advised to return with new or worsening symptoms. Educated on worrisome signs and symptoms and when to return. At this time I feel comfortable discharge home. Time: 09:47 Reevaluation #2: Pain better controlled after toradol Time: 09:48 Medical Decision Making Medical Decision Making MDM Narrative: 23 year old female presents to the ER due to left lower abdominal pain, nausea, and vomiting that began yesterday. On arrival to the ER, the patient is hemodynamically stable and in not in acute distress. On examination, abdomen is soft, non-distended, obese, mildly tender to palpation of LLQ. Otherwise, unremarkable. History and physical exam concerning for ovarian cyst, ovarian torsion, ectopic , diverticulitis, dysmenorrhea, urinary retention Labs portray mild anemia HGB 11.5 and HCT 35.2, BUN 6, otherwise unremarkable. Given patient's medical history and symptoms plan to order beta HCG, U/A, ultrasound of pelvis, CT abdomen/pelvic and bladder scan Differential Diagnosis Differential Diagnoses: The differential diagnosis associated with the presentation includes Lab Data 02/25/24 05:47 02/25/24 05:47 Labs: Lab Results 02/25/24 02/25/24 Range/Units 05:47 08:34 WBC 8.9 (4.8-10.8) X10*3/uL RBC 4.39 (4.20-5.50) X10*6/uL Hgb 11.5 L (12.0-16.0) g/dl Hct 35.2 L (37.0-47.0) % MCV 80.2 (80.0-98.0) fL MCH 26.2 L (27.0-33.0) pg MCHC 32.7 (31.0-35.0) g/dl RDW 14.8 (11.0-16.0) % Plt Count 381 (160-400) X10*3/uL MPV 9.4 (9.4-12.3) fL Immature Gran % (Auto) 0.2 (0.0-0.4) % Neut % (Auto) 80.9 H (45-73) % Lymph % (Auto) 12.2 L (20-40) % Pierce % (Auto) 6.0 (2-11) % Eos % (Auto) 0.2 (0-4) % Baso % (Auto) 0.5 (0-2) % Lymph # (Auto) 1.1 L (1.2-4.9) X10*3/uL Pierce # (Auto) 0.5 (0.1-1.2) X10*3/uL Eos # (Auto) 0.0 (0.0-0.4) X10*3/uL Baso # (Auto) 0.0 (0.0-0.2) X10*3/uL Abs Immat Gran (auto) 0.02 (0.00-0.03) X10*3/uL Absolute Neuts (auto) 7.2 (2.0-8.3) x10*3/uL Absolute Nucleated RBC 0.000 (0.0-0.012) X10*3/uL Nucleated RBC % (auto) 0.0 (0.0-0.2) /100WBC Sodium 135 (135-145) mmol/L Potassium 4.0 (3.3-5.1) mmol/L Chloride 105 (96-108) mmol/L Carbon Dioxide 21 L (22-29) mmol/L Anion Gap 13 (12-20) BUN 6 L (9-16) mg/dL Creatinine 0.56 (0.5-1.4) mg/dL Estim Creat Clear Calc 151.9 Estimated GFR > 60 Random Glucose 128 H (60-115) mg/dL Calcium 9.3 (8.4-10.2) mg/dL Beta HCG, Quant < 2 mIU/mL Urine Color Yellow Urine Appearance Clear Urine pH 7.5 (5.0-9.0) Ur Specific [place] >= 1.030 H (1.005-1.025) Urine Protein Trace (Neg-Trace) mg/dL Urine Glucose (UA) Negative (Negative) mg/dL Urine Ketones Negative (Negative) mg/dL Urine Blood Large (3+) H (Negative) Urine Nitrite Negative (Negative) Ur Leukocyte Esterase Negative (Negative) Urine RBC >20 H (0-2) /HPF Urine WBC 0-5 (0-5) /HPF Ur Squamous Epith Cells 3-5 (0-2) /HPF Urine Bacteria 1+ (None Seen) Hyaline Casts 0-2 (0-2) /LPF Urine Test NEGATIVE (NEGATIVE) Medications Administered Discontinued Medications Generic Name Dose Route Start Last Admin Trade Name Freq PRN Reason Stop Dose Admin Iohexol 100 ml 02/25/24 08:19 02/25/24 08:19 Iohexol 350 Mg/Ml 100 Ml Infus..Btl IV 02/25/24 08:20 85 ml ONCE ONE Administration Ketorolac Tromethamine 30 mg 02/25/24 08:17 02/25/24 08:40 Ketorolac Tromethamine 15 Mg/Ml Vial IVPUSH 02/25/24 08:18 30 mg ONCE ONE Administration Critical Care Time Critical Care Time Critical Care Time: No Discharge Plan Discharge Clinical Impression: UTI (urinary tract infection), Lower abdominal pain, Ovarian cyst, Dysmenorrhea Patient Disposition: Home, Self-Care Instructions: Urinary Tract Infection in Women (ED), Abdominal Pain (ED) Additional Instructions: Take your medications as prescribed. If you were prescribed antibiotics today, it is important that you take your medication to their entirety, do not skip any doses, do not finish them early. Follow-up with your primary care provider this week. Follow up with OBGYN within a week. Return to the emergency department with new or worsening symptoms. Such as fevers, chills, chest pain, shortness of breath, nausea, vomiting, dizziness, headache, vision changes, lethargy In case of emergency call 911 Toradol has been sent to your pharmacy, you tolerated this well in the department. Please take this as prescribed do not take this with ibuprofen, or other NSAIDs, do not mix this with alcohol. Side effects of this medication including increased risk for bleeding and possible kidney injury. US/US pelvic complete IMPRESSION: 1. Redemonstrated simple appearing cystic focus of the left ovary measuring 4.5 x 4.6 x 5.1 cm previously measuring 4.0 x 3.3 x 43 cm. 2. Vascular flow of the left ovary noted. 3. Right ovary not well visualized. 4. Endometrium not well visualized. CT/CT abdomen pelvis w IV con IMPRESSION: 1. Redemonstrated left ovarian cystic focus measuring 5.4 cm better evaluated on contemporaneous pelvic ultrasound. Findings likely represent a probable benign cyst. Recommend follow-up ultrasonography in 3-6 months. 2. Spleen is enlarged measuring 14.1 cm. Prescriptions: New nitrofurantoin monohyd/m-cryst [Macrobid] 100 mg capsule 100 mg PO BID 5 Days Qty: 10 0RF Rx Instructions: must administer with a meal/food ketorolac 10 mg tablet 10 mg PO TID PRN (Reason: pain) 5 Days Qty: 15 0RF No Action clonidine HCl 0.1 mg Tablet 0.1 mg PO Q4H PRN (Reason: anxiety) 30 Days Qty: 30 0RF Protocol: Hold for SBP< HOLD for SBP < : 90 trazodone 50 mg Tablet 50 mg PO BEDTIME PRN (Reason: Insomnia) 30 Days Qty: 30 0RF Rx Instructions: may repeat once if needed ondansetron 4 mg Tablet,Disintegrating 4 mg translingual Q6H PRN (Reason: Nausea And Vomiting) 30 Days Qty: 30 1RF lidocaine 5 % Ointment 1 appl topical Q7D PRN (Reason: numb area prior to blood draw) 30 Days Qty: 35.44 1RF Protocol: Apply to: Apply to: area prior to blood draw clozapine 100 mg tablet 100 mg PO BEDTIME 30 Days Qty: 30 0RF Referrals: Ruma Alvarado MD [Primary Care Provider] - 2 days Stand Alone Forms: Work/School Release Print Language: Pashto
[2024-02-25 07:46] LABS: HCG Quantitative < 2 mIU/mL
[2024-02-25] MEDS: iohexoL 350 MG/ML 100 ML INFUS..BTL IV (08:19)
[2024-02-25 08:31] VITALS: BP 154/95; PULSE 105; RESP 18; TEMP 36.7; O2SAT 100
[2024-02-25] MEDS: Ketorolac Tromethamine 15 MG/ML VIAL 30 MG IVPUSH (08:40)
[2024-02-25 08:43] LABS: UPreg QC Valid YES; Urine Pregnancy NEGATIVE (NEGATIVE)
[2024-02-25 08:44] LABS: Appearance Urine Clear; Color Urine Yellow; Glucose Urine UA Negative (Negative); Leukocyte Esterase Urine Negative (Negative); Nitrite Urine Negative (Negative); PH 7.5 (5.0-9.0); Specific Gravity - Urine >= 1.030 (1.005-1.025); UMIC TRIGGER UACC YES; Urine Blood Large (3+) (Negative); Urine Ketones Negative (Negative); Urine Protein Trace mg/dL (Neg-Trace)
--- NOTE | 2024-02-25 08:44 | PC.NURSE ---
pt medicated per MAR for 10/10 abd pain, resting quietly, pending imaging results, lights dimmed, mother at bedside.
[2024-02-25 08:47] LABS: Bacteria Urine 1+ (None Seen); Hyaline Casts Urine 0-2 /LPF (0-2); RBC Urine >20 /HPF (0-2); WBC Urine 0-5 /HPF (0-5)
[2024-02-25] MEDS: ondansetron HCL 4 MG/2 ML VIAL IVPUSH (10:14)
[2024-02-25 10:18] VITALS: BP 154/95; PULSE 105; RESP 18; TEMP 36.7; O2SAT 100
[2024-02-25 10:30] LABS: Alanine Aminotransferase 11 U/L (0-31); Albumin Level 4.3 g/dL (3.5-5.0); Alkaline Phosphatase 103 U/L (39-117); Aspartate Amino Transferase 13 U/L (5-31); Bilirubin Direct 0.1 mg/dL (0.0-0.5); Bilirubin Total 0.3 mg/dL (0.0-1.0); Total Protein 7.3 g/dL (6.5-8.0)
== END 2024-02-25 10:18 | disposition home or self-care (01) ==
PROVIDERS: Physician Assistant; Emergency Provider Emergency Medicine; PCP Internal Medicine
DX: N39.0 Urinary tract infection, site not specified (principal); R10.32 Left lower quadrant pain; N83.209 Unspecified ovarian cyst, unspecified side; N94.6 Dysmenorrhea, unspecified; R11.2 Nausea with vomiting, unspecified; D64.9 Anemia, unspecified
CPT/HCPCS: 36415; 74177; 76856; 80048; 80076; 81001; 81025; 84702; 85025; 93005; 93975; 96374; 96375; 99284; 99285; J1885; J2405; Q9967

== ENCOUNTER → 2024-02-25 07:00 | Outpatient (BNV) | payer OTHER, SELFPAY | PROVIDERS: Emergency Provider Emergency Medicine; PCP Internal Medicine; Visit Provider Internal Medicine Cardiovascular Disease | DX: R00.2 Palpitations (principal); R94.31 Abnormal electrocardiogram [ECG] [EKG] | CPT/HCPCS: 93010 ==

== ENCOUNTER 2024-02-26 13:50 | Outpatient (REF) | payer OTHER, SELFPAY ==
[2024-02-26 14:03] LABS: MANUAL DIFF FLAG NO
[2024-02-26 15:17] LABS: Basophils Absolute Auto 0.1 X10*3/uL (0.0-0.2); Basophils Percent Auto 0.5 % (0-2); Eosinophils Absolute Auto 0.1 X10*3/uL (0.0-0.4); Eosinophils Percent Auto 1.4 % (0-4); Hematocrit 33.8 % (37.0-47.0); Hemoglobin 10.4 g/dl (12.0-16.0); Imm Gran Abs Auto 0.02 X10*3/uL (0.00-0.03); Imm Gran Pct Auto 0.2 % (0.0-0.4); Lymphocytes Absolute Auto 1.9 X10*3/uL (1.2-4.9); Lymphocytes Percent Auto 20.5 % (20-40); Mean Corpuscular HGB Conc 30.8 g/dl (31.0-35.0); Mean Corpuscular Hemoglobin 25.3 pg (27.0-33.0); Mean Corpuscular Volume 82.2 fL (80.0-98.0); Mean Platelet Volume 10.7 fL (9.4-12.3); Monocytes Absolute Auto 0.6 X10*3/uL (0.1-1.2); Monocytes Percent Auto 6.6 % (2-11); Neutrophils Absolute Auto 6.5 x10*3/uL (2.0-8.3); Neutrophils Percent Auto 70.8 % (45-73); Platelet Count 407 X10*3/uL (160-400); Red Blood Count 4.11 X10*6/uL (4.20-5.50); Red Cell Distribution Width 15.4 % (11.0-16.0); White Blood Count 9.2 X10*3/uL (4.8-10.8)
== END 2024-02-26 13:51 | disposition home or self-care (01) ==
LOC: HO.LAB 13:50
PROVIDERS: PCP Internal Medicine; Visit Provider Psychiatry & Neurology Psychiatry
DX: Z79.899 Other long term (current) drug therapy (principal)
CPT/HCPCS: 36415; 85025

== ENCOUNTER 2024-03-04 13:01 | Outpatient (REF) | payer OTHER, SELFPAY ==
[2024-03-04 13:23] LABS: MANUAL DIFF FLAG NO
[2024-03-04 14:12] LABS: Basophils Absolute Auto 0.1 X10*3/uL (0.0-0.2); Basophils Percent Auto 0.6 % (0-2); Eosinophils Absolute Auto 0.1 X10*3/uL (0.0-0.4); Eosinophils Percent Auto 0.8 % (0-4); Hemoglobin 11.4 g/dl (12.0-16.0); Imm Gran Abs Auto 0.04 X10*3/uL (0.00-0.03); Imm Gran Pct Auto 0.4 % (0.0-0.4); Lymphocytes Absolute Auto 2.4 X10*3/uL (1.2-4.9); Lymphocytes Percent Auto 21.4 % (20-40); Mean Corpuscular HGB Conc 31.7 g/dl (31.0-35.0); Mean Corpuscular Hemoglobin 26.1 pg (27.0-33.0); Mean Corpuscular Volume 82.4 fL (80.0-98.0); Mean Platelet Volume 10.5 fL (9.4-12.3); Monocytes Absolute Auto 0.8 X10*3/uL (0.1-1.2); Monocytes Percent Auto 7.2 % (2-11); Neutrophils Absolute Auto 7.8 x10*3/uL (2.0-8.3); Neutrophils Percent Auto 69.6 % (45-73); Platelet Count 418 X10*3/uL (160-400); Red Blood Count 4.37 X10*6/uL (4.20-5.50); Red Cell Distribution Width 15.2 % (11.0-16.0); White Blood Count 11.2 X10*3/uL (4.8-10.8)
== END 2024-03-04 13:02 | disposition home or self-care (01) ==
LOC: HO.LABR 13:01
PROVIDERS: PCP Internal Medicine; Visit Provider Psychiatry & Neurology Psychiatry
DX: Z79.899 Other long term (current) drug therapy (principal)
CPT/HCPCS: 36415; 85025

== ENCOUNTER 2024-03-11 12:50 | Outpatient (REF) | payer OTHER, SELFPAY ==
[2024-03-11 13:07] LABS: MANUAL DIFF FLAG NO
[2024-03-11 13:40] LABS: Basophils Absolute Auto 0.1 X10*3/uL (0.0-0.2); Basophils Percent Auto 0.8 % (0-2); Eosinophils Absolute Auto 0.1 X10*3/uL (0.0-0.4); Eosinophils Percent Auto 1.9 % (0-4); Hematocrit 38.7 % (37.0-47.0); Hemoglobin 12.2 g/dl (12.0-16.0); Imm Gran Abs Auto 0.02 X10*3/uL (0.00-0.03); Imm Gran Pct Auto 0.3 % (0.0-0.4); Lymphocytes Absolute Auto 1.8 X10*3/uL (1.2-4.9); Lymphocytes Percent Auto 28.2 % (20-40); Mean Corpuscular HGB Conc 31.5 g/dl (31.0-35.0); Mean Corpuscular Hemoglobin 25.7 pg (27.0-33.0); Mean Corpuscular Volume 81.5 fL (80.0-98.0); Mean Platelet Volume 10.3 fL (9.4-12.3); Monocytes Absolute Auto 0.6 X10*3/uL (0.1-1.2); Monocytes Percent Auto 9.5 % (2-11); Neutrophils Absolute Auto 3.8 x10*3/uL (2.0-8.3); Neutrophils Percent Auto 59.3 % (45-73); Platelet Count 419 X10*3/uL (160-400); Red Blood Count 4.75 X10*6/uL (4.20-5.50); Red Cell Distribution Width 15.6 % (11.0-16.0); White Blood Count 6.3 X10*3/uL (4.8-10.8)
== END 2024-03-11 12:51 | disposition home or self-care (01) ==
LOC: HO.LABR 12:50
PROVIDERS: PCP Internal Medicine; Visit Provider Psychiatry & Neurology Psychiatry
DX: Z79.899 Other long term (current) drug therapy (principal)
CPT/HCPCS: 36415; 85025

== ENCOUNTER 2024-03-18 09:33 | Outpatient (REF) | payer OTHER, SELFPAY ==
[2024-03-18 09:53] LABS: MANUAL DIFF FLAG NO
[2024-03-18 10:54] LABS: Basophils Absolute Auto 0.1 X10*3/uL (0.0-0.2); Basophils Percent Auto 0.7 % (0-2); Eosinophils Absolute Auto 0.1 X10*3/uL (0.0-0.4); Eosinophils Percent Auto 1.6 % (0-4); Hematocrit 37.9 % (37.0-47.0); Hemoglobin 11.9 g/dl (12.0-16.0); Imm Gran Abs Auto 0.03 X10*3/uL (0.00-0.03); Imm Gran Pct Auto 0.4 % (0.0-0.4); Lymphocytes Absolute Auto 1.8 X10*3/uL (1.2-4.9); Lymphocytes Percent Auto 26.3 % (20-40); Mean Corpuscular HGB Conc 31.4 g/dl (31.0-35.0); Mean Corpuscular Hemoglobin 25.5 pg (27.0-33.0); Mean Corpuscular Volume 81.2 fL (80.0-98.0); Mean Platelet Volume 10.7 fL (9.4-12.3); Monocytes Absolute Auto 0.6 X10*3/uL (0.1-1.2); Monocytes Percent Auto 9.2 % (2-11); Neutrophils Absolute Auto 4.3 x10*3/uL (2.0-8.3); Neutrophils Percent Auto 61.8 % (45-73); Platelet Count 421 X10*3/uL (160-400); Red Blood Count 4.67 X10*6/uL (4.20-5.50)
== END 2024-03-18 09:34 | disposition home or self-care (01) ==
LOC: HO.LABR 09:33
PROVIDERS: PCP Internal Medicine; Visit Provider Psychiatry & Neurology Psychiatry
DX: Z79.899 Other long term (current) drug therapy (principal)
CPT/HCPCS: 36415; 85025

== ENCOUNTER 2024-03-25 10:19 | Outpatient (REF) | payer OTHER, SELFPAY ==
[2024-03-25 10:34] LABS: MANUAL DIFF FLAG NO
[2024-03-25 11:44] LABS: Basophils Absolute Auto 0.1 X10*3/uL (0.0-0.2); Basophils Percent Auto 0.9 % (0-2); Eosinophils Absolute Auto 0.1 X10*3/uL (0.0-0.4); Eosinophils Percent Auto 2.4 % (0-4); Hematocrit 38.7 % (37.0-47.0); Hemoglobin 12.3 g/dl (12.0-16.0); Imm Gran Abs Auto 0.02 X10*3/uL (0.00-0.03); Imm Gran Pct Auto 0.4 % (0.0-0.4); Lymphocytes Absolute Auto 1.5 X10*3/uL (1.2-4.9); Mean Corpuscular HGB Conc 31.8 g/dl (31.0-35.0); Mean Corpuscular Hemoglobin 25.9 pg (27.0-33.0); Mean Corpuscular Volume 81.5 fL (80.0-98.0); Mean Platelet Volume 10.6 fL (9.4-12.3); Monocytes Absolute Auto 0.5 X10*3/uL (0.1-1.2); Monocytes Percent Auto 8.4 % (2-11); Neutrophils Absolute Auto 3.2 x10*3/uL (2.0-8.3); Neutrophils Percent Auto 59.9 % (45-73); Platelet Count 339 X10*3/uL (160-400); Red Blood Count 4.75 X10*6/uL (4.20-5.50); White Blood Count 5.3 X10*3/uL (4.8-10.8)
== END 2024-03-25 10:20 | disposition home or self-care (01) ==
LOC: HO.LABR 10:19
PROVIDERS: PCP Internal Medicine; Visit Provider Psychiatry & Neurology Psychiatry
DX: Z79.899 Other long term (current) drug therapy (principal)
CPT/HCPCS: 36415; 85025

== ENCOUNTER 2024-04-01 09:18 | Outpatient (REF) | payer OTHER, SELFPAY ==
[2024-04-01 09:35] LABS: MANUAL DIFF FLAG NO
[2024-04-01 10:48] LABS: Basophils Absolute Auto 0.1 X10*3/uL (0.0-0.2); Basophils Percent Auto 0.7 % (0-2); Eosinophils Absolute Auto 0.2 X10*3/uL (0.0-0.4); Eosinophils Percent Auto 2.7 % (0-4); Hematocrit 39.4 % (37.0-47.0); Hemoglobin 12.7 g/dl (12.0-16.0); Imm Gran Abs Auto 0.03 X10*3/uL (0.00-0.03); Imm Gran Pct Auto 0.4 % (0.0-0.4); Lymphocytes Absolute Auto 2.3 X10*3/uL (1.2-4.9); Mean Corpuscular HGB Conc 32.2 g/dl (31.0-35.0); Mean Corpuscular Hemoglobin 25.8 pg (27.0-33.0); Mean Corpuscular Volume 79.9 fL (80.0-98.0); Mean Platelet Volume 10.8 fL (9.4-12.3); Monocytes Absolute Auto 0.4 X10*3/uL (0.1-1.2); Monocytes Percent Auto 5.5 % (2-11); Neutrophils Absolute Auto 4.1 x10*3/uL (2.0-8.3); Neutrophils Percent Auto 58.7 % (45-73); Platelet Count 373 X10*3/uL (160-400); Red Blood Count 4.93 X10*6/uL (4.20-5.50); Red Cell Distribution Width 16.5 % (11.0-16.0)
== END 2024-04-01 09:19 | disposition home or self-care (01) ==
LOC: HO.LABR 09:18
PROVIDERS: PCP Internal Medicine; Visit Provider Psychiatry & Neurology Psychiatry
DX: Z79.899 Other long term (current) drug therapy (principal)
CPT/HCPCS: 36415; 85025

== ENCOUNTER 2024-04-08 11:56 | Outpatient (REF) | payer OTHER, SELFPAY ==
[2024-04-08 12:19] LABS: MANUAL DIFF FLAG NO
[2024-04-08 12:57] LABS: Basophils Percent Auto 0.6 % (0-2); Eosinophils Absolute Auto 0.1 X10*3/uL (0.0-0.4); Eosinophils Percent Auto 1.8 % (0-4); Hematocrit 38.1 % (37.0-47.0); Hemoglobin 12.3 g/dl (12.0-16.0); Imm Gran Abs Auto 0.02 X10*3/uL (0.00-0.03); Imm Gran Pct Auto 0.3 % (0.0-0.4); Lymphocytes Absolute Auto 1.6 X10*3/uL (1.2-4.9); Lymphocytes Percent Auto 22.9 % (20-40); Mean Corpuscular HGB Conc 32.3 g/dl (31.0-35.0); Mean Corpuscular Hemoglobin 26.1 pg (27.0-33.0); Mean Corpuscular Volume 80.9 fL (80.0-98.0); Mean Platelet Volume 10.5 fL (9.4-12.3); Monocytes Absolute Auto 0.6 X10*3/uL (0.1-1.2); Monocytes Percent Auto 8.3 % (2-11); Neutrophils Absolute Auto 4.7 x10*3/uL (2.0-8.3); Neutrophils Percent Auto 66.1 % (45-73); Platelet Count 380 X10*3/uL (160-400); Red Blood Count 4.71 X10*6/uL (4.20-5.50); Red Cell Distribution Width 16.8 % (11.0-16.0); White Blood Count 7.1 X10*3/uL (4.8-10.8)
== END 2024-04-08 11:57 | disposition home or self-care (01) ==
LOC: HO.LABR 11:56
PROVIDERS: Visit Provider Psychiatry & Neurology Psychiatry
DX: Z79.899 Other long term (current) drug therapy (principal)
CPT/HCPCS: 36415; 85025

== ENCOUNTER 2024-04-15 08:07 | Outpatient (REF) | payer OTHER, SELFPAY ==
[2024-04-15 08:17] LABS: MANUAL DIFF FLAG NO
[2024-04-15 08:43] LABS: Basophils Absolute Auto 0.1 X10*3/uL (0.0-0.2); Basophils Percent Auto 0.7 % (0-2); Eosinophils Absolute Auto 0.2 X10*3/uL (0.0-0.4); Eosinophils Percent Auto 2.3 % (0-4); Hemoglobin 12.1 g/dl (12.0-16.0); Imm Gran Abs Auto 0.02 X10*3/uL (0.00-0.03); Imm Gran Pct Auto 0.3 % (0.0-0.4); Lymphocytes Absolute Auto 2.2 X10*3/uL (1.2-4.9); Lymphocytes Percent Auto 31.5 % (20-40); Mean Corpuscular HGB Conc 31.8 g/dl (31.0-35.0); Mean Corpuscular Hemoglobin 25.9 pg (27.0-33.0); Mean Corpuscular Volume 81.2 fL (80.0-98.0); Mean Platelet Volume 10.1 fL (9.4-12.3); Monocytes Absolute Auto 0.7 X10*3/uL (0.1-1.2); Neutrophils Absolute Auto 3.9 x10*3/uL (2.0-8.3); Neutrophils Percent Auto 55.2 % (45-73); Platelet Count 379 X10*3/uL (160-400); Red Blood Count 4.68 X10*6/uL (4.20-5.50); Red Cell Distribution Width 17.3 % (11.0-16.0)
== END 2024-04-15 08:08 | disposition home or self-care (01) ==
LOC: HO.LABR 08:07
PROVIDERS: Visit Provider Psychiatry & Neurology Psychiatry
DX: Z79.899 Other long term (current) drug therapy (principal)
CPT/HCPCS: 36415; 85025

== ENCOUNTER 2024-04-22 14:41 | Outpatient (REF) | payer OTHER, SELFPAY ==
[2024-04-22 15:23] LABS: Neut%MD 62.9 %; Neutrophils Absolute Auto 4.4 x10*3/uL (2.0-8.3)
== END 2024-04-22 14:42 | disposition home or self-care (01) ==
LOC: HO.LABR 14:41
PROVIDERS: Psychiatry & Neurology Psychiatry; PCP Internal Medicine; Visit Provider Psychiatry & Neurology Psychiatry
DX: Z51.81 Encounter for therapeutic drug level monitoring (principal); Z79.899 Other long term (current) drug therapy
CPT/HCPCS: 36415; 85048

== ENCOUNTER 2024-04-29 11:44 | Outpatient (REF) | payer OTHER, SELFPAY ==
[2024-04-29 12:10] LABS: MANUAL DIFF FLAG NO
[2024-04-29 12:18] LABS: Basophils Percent Auto 0.4 % (0-2); Eosinophils Absolute Auto 0.1 X10*3/uL (0.0-0.4); Eosinophils Percent Auto 1.5 % (0-4); Hematocrit 37.5 % (37.0-47.0); Hemoglobin 12.4 g/dl (12.0-16.0); Imm Gran Abs Auto 0.05 X10*3/uL (0.00-0.03); Imm Gran Pct Auto 0.6 % (0.0-0.4); Lymphocytes Absolute Auto 1.8 X10*3/uL (1.2-4.9); Lymphocytes Percent Auto 19.7 % (20-40); Mean Corpuscular HGB Conc 33.1 g/dl (31.0-35.0); Mean Corpuscular Hemoglobin 26.5 pg (27.0-33.0); Mean Corpuscular Volume 80.1 fL (80.0-98.0); Mean Platelet Volume 9.4 fL (9.4-12.3); Monocytes Absolute Auto 0.8 X10*3/uL (0.1-1.2); Monocytes Percent Auto 8.5 % (2-11); Neutrophils Absolute Auto 6.2 x10*3/uL (2.0-8.3); Neutrophils Percent Auto 69.3 % (45-73); Platelet Count 360 X10*3/uL (160-400); Red Blood Count 4.68 X10*6/uL (4.20-5.50); Red Cell Distribution Width 17.5 % (11.0-16.0); White Blood Count 8.9 X10*3/uL (4.8-10.8)
== END 2024-04-29 11:45 | disposition home or self-care (01) ==
LOC: HO.LABR 11:44
PROVIDERS: PCP Internal Medicine; Visit Provider Psychiatry & Neurology Psychiatry
DX: Z79.899 Other long term (current) drug therapy (principal)
CPT/HCPCS: 36415; 85025

== ENCOUNTER 2024-05-06 10:58 | Outpatient (REF) | payer OTHER, SELFPAY ==
[2024-05-06 11:35] LABS: Basophils Absolute Auto 0.1 X10*3/uL (0.0-0.2); Basophils Percent Auto 0.7 % (0-2); Eosinophils Absolute Auto 0.1 X10*3/uL (0.0-0.4); Hematocrit 39.2 % (37.0-47.0); Hemoglobin 12.9 g/dl (12.0-16.0); Imm Gran Abs Auto 0.05 X10*3/uL (0.00-0.03); Imm Gran Pct Auto 0.7 % (0.0-0.4); Lymphocytes Absolute Auto 1.7 X10*3/uL (1.2-4.9); Lymphocytes Percent Auto 24.2 % (20-40); MANUAL DIFF FLAG SCAN; Mean Corpuscular HGB Conc 32.9 g/dl (31.0-35.0); Mean Corpuscular Hemoglobin 26.2 pg (27.0-33.0); Mean Corpuscular Volume 79.7 fL (80.0-98.0); Monocytes Absolute Auto 0.6 X10*3/uL (0.1-1.2); Monocytes Percent Auto 8.1 % (2-11); Neutrophils Absolute Auto 4.6 x10*3/uL (2.0-8.3); Neutrophils Percent Auto 64.3 % (45-73); PLT CLUMP 1; Red Blood Count 4.92 X10*6/uL (4.20-5.50); Red Cell Distribution Width 17.4 % (11.0-16.0); SCAN SMEAR FLAG 1
[2024-05-06 13:33] LABS: Platelet Count 329 X10*3/uL (160-400); White Blood Count 7.1 X10*3/uL (4.8-10.8)
[2024-05-06 13:34] LABS: Mean Platelet Volume 10.1 fL (9.4-12.3); SLIDE REVIEW VERIFIED
== END 2024-05-06 10:59 | disposition home or self-care (01) ==
LOC: HO.LABR 10:58
PROVIDERS: PCP Internal Medicine; Visit Provider Psychiatry & Neurology Psychiatry
DX: Z79.899 Other long term (current) drug therapy (principal)
CPT/HCPCS: 36415; 85025

== ENCOUNTER 2024-05-13 10:17 | Outpatient (REF) | payer OTHER, SELFPAY ==
[2024-05-13 10:39] LABS: MANUAL DIFF FLAG NO
[2024-05-13 10:47] LABS: Basophils Absolute Auto 0.1 X10*3/uL (0.0-0.2); Basophils Percent Auto 0.7 % (0-2); Eosinophils Absolute Auto 0.2 X10*3/uL (0.0-0.4); Eosinophils Percent Auto 2.3 % (0-4); Hematocrit 38.7 % (37.0-47.0); Hemoglobin 12.6 g/dl (12.0-16.0); Imm Gran Abs Auto 0.03 X10*3/uL (0.00-0.03); Imm Gran Pct Auto 0.4 % (0.0-0.4); Lymphocytes Absolute Auto 1.9 X10*3/uL (1.2-4.9); Lymphocytes Percent Auto 25.8 % (20-40); Mean Corpuscular HGB Conc 32.6 g/dl (31.0-35.0); Mean Corpuscular Hemoglobin 26.6 pg (27.0-33.0); Mean Corpuscular Volume 81.6 fL (80.0-98.0); Mean Platelet Volume 9.2 fL (9.4-12.3); Monocytes Absolute Auto 0.7 X10*3/uL (0.1-1.2); Monocytes Percent Auto 8.6 % (2-11); Neutrophils Absolute Auto 4.7 x10*3/uL (2.0-8.3); Neutrophils Percent Auto 62.2 % (45-73); Platelet Count 363 X10*3/uL (160-400); Red Blood Count 4.74 X10*6/uL (4.20-5.50); Red Cell Distribution Width 17.2 % (11.0-16.0); White Blood Count 7.5 X10*3/uL (4.8-10.8)
== END 2024-05-13 10:18 | disposition home or self-care (01) ==
LOC: HO.LAB 10:17
PROVIDERS: PCP Internal Medicine; Visit Provider Psychiatry & Neurology Psychiatry
DX: Z79.899 Other long term (current) drug therapy (principal)
CPT/HCPCS: 36415; 85025

== ENCOUNTER 2024-05-20 11:49 | Outpatient (REF) | payer OTHER, SELFPAY ==
[2024-05-20 12:15] LABS: MANUAL DIFF FLAG NO
[2024-05-20 12:47] LABS: Basophils Percent Auto 0.5 % (0-2); Eosinophils Absolute Auto 0.1 X10*3/uL (0.0-0.4); Eosinophils Percent Auto 1.4 % (0-4); Hematocrit 39.4 % (37.0-47.0); Hemoglobin 12.6 g/dl (12.0-16.0); Imm Gran Abs Auto 0.02 X10*3/uL (0.00-0.03); Imm Gran Pct Auto 0.2 % (0.0-0.4); Lymphocytes Absolute Auto 1.7 X10*3/uL (1.2-4.9); Lymphocytes Percent Auto 19.6 % (20-40); Mean Corpuscular Hemoglobin 26.4 pg (27.0-33.0); Mean Corpuscular Volume 82.6 fL (80.0-98.0); Monocytes Absolute Auto 0.7 X10*3/uL (0.1-1.2); Monocytes Percent Auto 8.1 % (2-11); Neutrophils Percent Auto 70.2 % (45-73); Platelet Count 372 X10*3/uL (160-400); Red Blood Count 4.77 X10*6/uL (4.20-5.50); White Blood Count 8.5 X10*3/uL (4.8-10.8)
== END 2024-05-20 11:50 | disposition home or self-care (01) ==
LOC: HO.LABR 11:49
PROVIDERS: PCP Internal Medicine; Visit Provider Psychiatry & Neurology Psychiatry
DX: Z79.899 Other long term (current) drug therapy (principal)
CPT/HCPCS: 36415; 85025

== ENCOUNTER 2024-05-27 11:18 | Outpatient (REF) | payer OTHER, SELFPAY ==
[2024-05-27 12:00] LABS: MANUAL DIFF FLAG NO
[2024-05-27 12:29] LABS: Basophils Absolute Auto 0.1 X10*3/uL (0.0-0.2); Basophils Percent Auto 0.7 % (0-2); Eosinophils Absolute Auto 0.1 X10*3/uL (0.0-0.4); Eosinophils Percent Auto 1.9 % (0-4); Hematocrit 38.9 % (37.0-47.0); Hemoglobin 12.6 g/dl (12.0-16.0); Imm Gran Abs Auto 0.02 X10*3/uL (0.00-0.03); Imm Gran Pct Auto 0.3 % (0.0-0.4); Lymphocytes Absolute Auto 1.8 X10*3/uL (1.2-4.9); Lymphocytes Percent Auto 23.6 % (20-40); Mean Corpuscular HGB Conc 32.4 g/dl (31.0-35.0); Mean Corpuscular Hemoglobin 26.7 pg (27.0-33.0); Mean Corpuscular Volume 82.4 fL (80.0-98.0); Mean Platelet Volume 9.8 fL (9.4-12.3); Monocytes Absolute Auto 0.7 X10*3/uL (0.1-1.2); Monocytes Percent Auto 9.1 % (2-11); Neutrophils Absolute Auto 4.8 x10*3/uL (2.0-8.3); Neutrophils Percent Auto 64.4 % (45-73); Platelet Count 397 X10*3/uL (160-400); Red Blood Count 4.72 X10*6/uL (4.20-5.50); Red Cell Distribution Width 16.5 % (11.0-16.0); White Blood Count 7.5 X10*3/uL (4.8-10.8)
== END 2024-05-27 11:19 | disposition home or self-care (01) ==
LOC: HO.LABR 11:18
PROVIDERS: PCP Internal Medicine; Visit Provider Psychiatry & Neurology Psychiatry
DX: Z79.899 Other long term (current) drug therapy (principal)
CPT/HCPCS: 36415; 85025

== ENCOUNTER 2024-06-03 13:43 | Outpatient (REF) | payer OTHER, SELFPAY ==
[2024-06-03 14:28] LABS: MANUAL DIFF FLAG NO
[2024-06-03 15:56] LABS: Basophils Absolute Auto 0.1 X10*3/uL (0.0-0.2); Basophils Percent Auto 0.5 % (0-2); Eosinophils Absolute Auto 0.2 X10*3/uL (0.0-0.4); Eosinophils Percent Auto 1.7 % (0-4); Hematocrit 39.1 % (37.0-47.0); Hemoglobin 12.6 g/dl (12.0-16.0); Imm Gran Abs Auto 0.02 X10*3/uL (0.00-0.03); Imm Gran Pct Auto 0.2 % (0.0-0.4); Lymphocytes Absolute Auto 2.1 X10*3/uL (1.2-4.9); Lymphocytes Percent Auto 21.1 % (20-40); Mean Corpuscular HGB Conc 32.2 g/dl (31.0-35.0); Mean Corpuscular Hemoglobin 26.6 pg (27.0-33.0); Mean Corpuscular Volume 82.7 fL (80.0-98.0); Mean Platelet Volume 10.3 fL (9.4-12.3); Monocytes Absolute Auto 0.8 X10*3/uL (0.1-1.2); Monocytes Percent Auto 8.4 % (2-11); Neutrophils Absolute Auto 6.7 x10*3/uL (2.0-8.3); Neutrophils Percent Auto 68.1 % (45-73); Platelet Count 419 X10*3/uL (160-400); Red Blood Count 4.73 X10*6/uL (4.20-5.50); White Blood Count 9.8 X10*3/uL (4.8-10.8)
== END 2024-06-03 13:44 | disposition home or self-care (01) ==
LOC: HO.LABR 13:43
PROVIDERS: PCP Internal Medicine; Visit Provider Psychiatry & Neurology Psychiatry
DX: Z79.899 Other long term (current) drug therapy (principal)
CPT/HCPCS: 36415; 85025

== ENCOUNTER 2024-06-10 10:47 | Outpatient (REF) | payer OTHER, SELFPAY ==
[2024-06-10 11:16] LABS: MANUAL DIFF FLAG NO
[2024-06-10 11:49] LABS: Basophils Percent Auto 0.6 % (0-2); Eosinophils Absolute Auto 0.1 X10*3/uL (0.0-0.4); Eosinophils Percent Auto 1.7 % (0-4); Hematocrit 38.8 % (37.0-47.0); Hemoglobin 12.7 g/dl (12.0-16.0); Imm Gran Abs Auto 0.01 X10*3/uL (0.00-0.03); Imm Gran Pct Auto 0.1 % (0.0-0.4); Lymphocytes Absolute Auto 1.8 X10*3/uL (1.2-4.9); Lymphocytes Percent Auto 24.2 % (20-40); Mean Corpuscular HGB Conc 32.7 g/dl (31.0-35.0); Mean Corpuscular Hemoglobin 26.7 pg (27.0-33.0); Mean Corpuscular Volume 81.5 fL (80.0-98.0); Mean Platelet Volume 9.6 fL (9.4-12.3); Monocytes Absolute Auto 0.7 X10*3/uL (0.1-1.2); Monocytes Percent Auto 9.2 % (2-11); Neutrophils Absolute Auto 4.7 x10*3/uL (2.0-8.3); Neutrophils Percent Auto 64.2 % (45-73); Platelet Count 396 X10*3/uL (160-400); Red Blood Count 4.76 X10*6/uL (4.20-5.50); Red Cell Distribution Width 15.7 % (11.0-16.0); White Blood Count 7.3 X10*3/uL (4.8-10.8)
== END 2024-06-10 10:48 | disposition home or self-care (01) ==
LOC: HO.LABR 10:47
PROVIDERS: Visit Provider Psychiatry & Neurology Psychiatry
DX: Z79.899 Other long term (current) drug therapy (principal)
CPT/HCPCS: 36415; 85025

== ENCOUNTER 2024-06-17 11:52 | Outpatient (REF) | payer OTHER, SELFPAY ==
[2024-06-17 12:35] LABS: MANUAL DIFF FLAG NO
[2024-06-17 13:07] LABS: Basophils Percent Auto 0.4 % (0-2); Eosinophils Absolute Auto 0.1 X10*3/uL (0.0-0.4); Eosinophils Percent Auto 0.8 % (0-4); Hematocrit 38.5 % (37.0-47.0); Hemoglobin 12.6 g/dl (12.0-16.0); Imm Gran Abs Auto 0.03 X10*3/uL (0.00-0.03); Imm Gran Pct Auto 0.3 % (0.0-0.4); Lymphocytes Absolute Auto 1.9 X10*3/uL (1.2-4.9); Lymphocytes Percent Auto 19.2 % (20-40); Mean Corpuscular HGB Conc 32.7 g/dl (31.0-35.0); Mean Corpuscular Hemoglobin 26.6 pg (27.0-33.0); Mean Corpuscular Volume 81.4 fL (80.0-98.0); Mean Platelet Volume 9.7 fL (9.4-12.3); Monocytes Absolute Auto 0.8 X10*3/uL (0.1-1.2); Monocytes Percent Auto 8.2 % (2-11); Neutrophils Absolute Auto 6.9 x10*3/uL (2.0-8.3); Neutrophils Percent Auto 71.1 % (45-73); Platelet Count 388 X10*3/uL (160-400); Red Blood Count 4.73 X10*6/uL (4.20-5.50); Red Cell Distribution Width 15.4 % (11.0-16.0); White Blood Count 9.7 X10*3/uL (4.8-10.8)
== END 2024-06-17 11:53 | disposition home or self-care (01) ==
LOC: HO.LABR 11:52
PROVIDERS: PCP Internal Medicine; Visit Provider Psychiatry & Neurology Psychiatry
DX: Z79.899 Other long term (current) drug therapy (principal)
CPT/HCPCS: 36415; 85025

== ENCOUNTER 2024-06-24 10:53 | Outpatient (REF) | payer OTHER, SELFPAY ==
[2024-06-24 11:04] LABS: MANUAL DIFF FLAG NO
[2024-06-24 11:49] LABS: Basophils Absolute Auto 0.1 X10*3/uL (0.0-0.2); Basophils Percent Auto 0.6 % (0-2); Eosinophils Absolute Auto 0.1 X10*3/uL (0.0-0.4); Eosinophils Percent Auto 1.5 % (0-4); Hematocrit 39.2 % (37.0-47.0); Hemoglobin 12.8 g/dl (12.0-16.0); Imm Gran Abs Auto 0.03 X10*3/uL (0.00-0.03); Imm Gran Pct Auto 0.4 % (0.0-0.4); Lymphocytes Absolute Auto 2.1 X10*3/uL (1.2-4.9); Lymphocytes Percent Auto 25.9 % (20-40); Mean Corpuscular HGB Conc 32.7 g/dl (31.0-35.0); Mean Corpuscular Volume 82.7 fL (80.0-98.0); Mean Platelet Volume 9.8 fL (9.4-12.3); Monocytes Absolute Auto 0.6 X10*3/uL (0.1-1.2); Monocytes Percent Auto 7.4 % (2-11); Neutrophils Absolute Auto 5.2 x10*3/uL (2.0-8.3); Neutrophils Percent Auto 64.2 % (45-73); Platelet Count 386 X10*3/uL (160-400); Red Blood Count 4.74 X10*6/uL (4.20-5.50)
== END 2024-06-24 10:54 | disposition home or self-care (01) ==
LOC: HO.LABR 10:53
PROVIDERS: PCP Internal Medicine; Visit Provider Psychiatry & Neurology Psychiatry
DX: Z79.899 Other long term (current) drug therapy (principal)
CPT/HCPCS: 36415; 85025

== ENCOUNTER 2024-07-01 11:11 | Outpatient (REF) | payer OTHER, SELFPAY ==
[2024-07-01 11:50] LABS: MANUAL DIFF FLAG NO
[2024-07-01 12:54] LABS: Basophils Absolute Auto 0.1 X10*3/uL (0.0-0.2); Basophils Percent Auto 0.6 % (0-2); Eosinophils Absolute Auto 0.1 X10*3/uL (0.0-0.4); Eosinophils Percent Auto 1.4 % (0-4); Hematocrit 38.5 % (37.0-47.0); Hemoglobin 12.5 g/dl (12.0-16.0); Imm Gran Abs Auto 0.03 X10*3/uL (0.00-0.03); Imm Gran Pct Auto 0.4 % (0.0-0.4); Lymphocytes Absolute Auto 1.6 X10*3/uL (1.2-4.9); Lymphocytes Percent Auto 19.3 % (20-40); Mean Corpuscular HGB Conc 32.5 g/dl (31.0-35.0); Mean Corpuscular Hemoglobin 27.1 pg (27.0-33.0); Mean Corpuscular Volume 83.3 fL (80.0-98.0); Mean Platelet Volume 10.2 fL (9.4-12.3); Monocytes Absolute Auto 0.7 X10*3/uL (0.1-1.2); Monocytes Percent Auto 7.7 % (2-11); Neutrophils Absolute Auto 5.9 x10*3/uL (2.0-8.3); Neutrophils Percent Auto 70.6 % (45-73); Platelet Count 387 X10*3/uL (160-400); Red Blood Count 4.62 X10*6/uL (4.20-5.50); Red Cell Distribution Width 15.2 % (11.0-16.0); White Blood Count 8.4 X10*3/uL (4.8-10.8)
== END 2024-07-01 11:12 | disposition home or self-care (01) ==
LOC: HO.LABR 11:11
PROVIDERS: PCP Internal Medicine; Visit Provider Psychiatry & Neurology Psychiatry
DX: Z79.899 Other long term (current) drug therapy (principal)
CPT/HCPCS: 36415; 85025

== ENCOUNTER 2024-07-08 11:22 | Outpatient (REF) | payer OTHER, SELFPAY ==
[2024-07-08 11:36] LABS: MANUAL DIFF FLAG NO
[2024-07-08 11:47] LABS: Basophils Percent Auto 0.3 % (0-2); Eosinophils Absolute Auto 0.1 X10*3/uL (0.0-0.4); Eosinophils Percent Auto 1.3 % (0-4); Hematocrit 38.5 % (37.0-47.0); Hemoglobin 12.8 g/dl (12.0-16.0); Imm Gran Abs Auto 0.03 X10*3/uL (0.00-0.03); Imm Gran Pct Auto 0.3 % (0.0-0.4); Lymphocytes Absolute Auto 2.1 X10*3/uL (1.2-4.9); Lymphocytes Percent Auto 24.1 % (20-40); Mean Corpuscular HGB Conc 33.2 g/dl (31.0-35.0); Mean Corpuscular Hemoglobin 27.6 pg (27.0-33.0); Mean Platelet Volume 9.4 fL (9.4-12.3); Monocytes Absolute Auto 0.6 X10*3/uL (0.1-1.2); Neutrophils Absolute Auto 5.8 x10*3/uL (2.0-8.3); Platelet Count 379 X10*3/uL (160-400); Red Blood Count 4.64 X10*6/uL (4.20-5.50); Red Cell Distribution Width 14.7 % (11.0-16.0); White Blood Count 8.6 X10*3/uL (4.8-10.8)
== END 2024-07-08 11:23 | disposition home or self-care (01) ==
LOC: HO.LABR 11:22
PROVIDERS: PCP Internal Medicine; Visit Provider Psychiatry & Neurology Psychiatry
DX: Z79.899 Other long term (current) drug therapy (principal)
CPT/HCPCS: 36415; 85025

== ENCOUNTER 2024-07-15 08:12 | Outpatient (REF) | payer OTHER, SELFPAY ==
[2024-07-15 08:33] LABS: MANUAL DIFF FLAG NO
[2024-07-15 09:05] LABS: Basophils Percent Auto 0.5 % (0-2); Eosinophils Absolute Auto 0.2 X10*3/uL (0.0-0.4); Eosinophils Percent Auto 1.9 % (0-4); Hematocrit 39.5 % (37.0-47.0); Hemoglobin 12.9 g/dl (12.0-16.0); Imm Gran Abs Auto 0.02 X10*3/uL (0.00-0.03); Imm Gran Pct Auto 0.3 % (0.0-0.4); Lymphocytes Percent Auto 26.1 % (20-40); Mean Corpuscular HGB Conc 32.7 g/dl (31.0-35.0); Mean Corpuscular Hemoglobin 27.4 pg (27.0-33.0); Mean Corpuscular Volume 83.9 fL (80.0-98.0); Mean Platelet Volume 10.2 fL (9.4-12.3); Monocytes Absolute Auto 0.6 X10*3/uL (0.1-1.2); Monocytes Percent Auto 7.3 % (2-11); Neutrophils Percent Auto 63.9 % (45-73); Platelet Count 392 X10*3/uL (160-400); Red Blood Count 4.71 X10*6/uL (4.20-5.50); Red Cell Distribution Width 14.5 % (11.0-16.0); White Blood Count 7.8 X10*3/uL (4.8-10.8)
== END 2024-07-15 08:13 | disposition home or self-care (01) ==
LOC: HO.LABR 08:12
PROVIDERS: PCP Internal Medicine; Visit Provider Psychiatry & Neurology Psychiatry
DX: Z79.899 Other long term (current) drug therapy (principal)
CPT/HCPCS: 36415; 85025

== ENCOUNTER 2024-07-22 09:37 | Outpatient (REF) | payer OTHER, SELFPAY ==
[2024-07-22 10:04] LABS: MANUAL DIFF FLAG NO
[2024-07-22 10:47] LABS: Basophils Absolute Auto 0.1 X10*3/uL (0.0-0.2); Basophils Percent Auto 0.5 % (0-2); Eosinophils Absolute Auto 0.1 X10*3/uL (0.0-0.4); Eosinophils Percent Auto 1.4 % (0-4); Hemoglobin 12.7 g/dl (12.0-16.0); Imm Gran Abs Auto 0.03 X10*3/uL (0.00-0.03); Imm Gran Pct Auto 0.3 % (0.0-0.4); Lymphocytes Absolute Auto 2.1 X10*3/uL (1.2-4.9); Lymphocytes Percent Auto 21.7 % (20-40); Mean Corpuscular HGB Conc 32.6 g/dl (31.0-35.0); Mean Corpuscular Volume 82.8 fL (80.0-98.0); Mean Platelet Volume 9.9 fL (9.4-12.3); Monocytes Absolute Auto 0.7 X10*3/uL (0.1-1.2); Monocytes Percent Auto 7.6 % (2-11); Neutrophils Absolute Auto 6.5 x10*3/uL (2.0-8.3); Neutrophils Percent Auto 68.5 % (45-73); Platelet Count 410 X10*3/uL (160-400); Red Blood Count 4.71 X10*6/uL (4.20-5.50); Red Cell Distribution Width 14.6 % (11.0-16.0); White Blood Count 9.4 X10*3/uL (4.8-10.8)
== END 2024-07-22 09:38 | disposition home or self-care (01) ==
LOC: HO.LABR 09:37
PROVIDERS: Visit Provider Psychiatry & Neurology Psychiatry
DX: Z79.899 Other long term (current) drug therapy (principal)
CPT/HCPCS: 36415; 85025

== ENCOUNTER 2024-07-29 09:41 | Outpatient (REF) | payer OTHER, SELFPAY ==
[2024-07-29 09:57] LABS: MANUAL DIFF FLAG NO
[2024-07-29 10:10] LABS: Basophils Percent Auto 0.3 % (0-2); Eosinophils Absolute Auto 0.1 X10*3/uL (0.0-0.4); Eosinophils Percent Auto 1.6 % (0-4); Hematocrit 38.5 % (37.0-47.0); Hemoglobin 12.6 g/dl (12.0-16.0); Imm Gran Abs Auto 0.03 X10*3/uL (0.00-0.03); Imm Gran Pct Auto 0.3 % (0.0-0.4); Lymphocytes Absolute Auto 2.3 X10*3/uL (1.2-4.9); Lymphocytes Percent Auto 27.1 % (20-40); Mean Corpuscular HGB Conc 32.7 g/dl (31.0-35.0); Mean Corpuscular Hemoglobin 27.5 pg (27.0-33.0); Mean Corpuscular Volume 83.9 fL (80.0-98.0); Mean Platelet Volume 9.6 fL (9.4-12.3); Monocytes Absolute Auto 0.7 X10*3/uL (0.1-1.2); Monocytes Percent Auto 7.5 % (2-11); Neutrophils Absolute Auto 5.5 x10*3/uL (2.0-8.3); Neutrophils Percent Auto 63.2 % (45-73); Platelet Count 383 X10*3/uL (160-400); Red Blood Count 4.59 X10*6/uL (4.20-5.50); Red Cell Distribution Width 14.6 % (11.0-16.0); White Blood Count 8.7 X10*3/uL (4.8-10.8)
== END 2024-07-29 09:42 | disposition home or self-care (01) ==
LOC: HO.LAB 09:41
PROVIDERS: PCP Internal Medicine; Visit Provider Psychiatry & Neurology Psychiatry
DX: Z79.899 Other long term (current) drug therapy (principal)
CPT/HCPCS: 36415; 85025

== ENCOUNTER 2024-08-05 08:36 | Outpatient (REF) | payer OTHER, SELFPAY ==
[2024-08-05 08:54] LABS: MANUAL DIFF FLAG NO
[2024-08-05 09:57] LABS: Basophils Absolute Auto 0.1 X10*3/uL (0.0-0.2); Basophils Percent Auto 0.6 % (0-2); Eosinophils Absolute Auto 0.1 X10*3/uL (0.0-0.4); Eosinophils Percent Auto 1.6 % (0-4); Hematocrit 40.1 % (37.0-47.0); Hemoglobin 12.9 g/dl (12.0-16.0); Imm Gran Abs Auto 0.03 X10*3/uL (0.00-0.03); Imm Gran Pct Auto 0.4 % (0.0-0.4); Lymphocytes Absolute Auto 2.1 X10*3/uL (1.2-4.9); Lymphocytes Percent Auto 25.2 % (20-40); Mean Corpuscular HGB Conc 32.2 g/dl (31.0-35.0); Mean Corpuscular Hemoglobin 26.8 pg (27.0-33.0); Mean Corpuscular Volume 83.4 fL (80.0-98.0); Mean Platelet Volume 10.2 fL (9.4-12.3); Monocytes Absolute Auto 0.7 X10*3/uL (0.1-1.2); Monocytes Percent Auto 7.9 % (2-11); Neutrophils Absolute Auto 5.3 x10*3/uL (2.0-8.3); Neutrophils Percent Auto 64.3 % (45-73); Platelet Count 386 X10*3/uL (160-400); Red Blood Count 4.81 X10*6/uL (4.20-5.50); Red Cell Distribution Width 14.4 % (11.0-16.0); White Blood Count 8.3 X10*3/uL (4.8-10.8)
== END 2024-08-05 08:37 | disposition home or self-care (01) ==
LOC: HO.LABR 08:36
PROVIDERS: Visit Provider Psychiatry & Neurology Psychiatry
DX: Z79.899 Other long term (current) drug therapy (principal)
CPT/HCPCS: 36415; 85025

== ENCOUNTER 2024-08-11 07:36 | Outpatient (REF) | payer OTHER, SELFPAY ==
[2024-08-11 07:56] LABS: MANUAL DIFF FLAG NO
[2024-08-11 09:03] LABS: Basophils Absolute Auto 0.1 X10*3/uL (0.0-0.2); Basophils Percent Auto 0.6 % (0-2); Eosinophils Absolute Auto 0.1 X10*3/uL (0.0-0.4); Eosinophils Percent Auto 1.3 % (0-4); Hematocrit 40.1 % (37.0-47.0); Imm Gran Abs Auto 0.03 X10*3/uL (0.00-0.03); Imm Gran Pct Auto 0.3 % (0.0-0.4); Lymphocytes Absolute Auto 2.4 X10*3/uL (1.2-4.9); Mean Corpuscular HGB Conc 32.4 g/dl (31.0-35.0); Mean Corpuscular Hemoglobin 26.7 pg (27.0-33.0); Mean Corpuscular Volume 82.5 fL (80.0-98.0); Mean Platelet Volume 9.7 fL (9.4-12.3); Monocytes Absolute Auto 0.8 X10*3/uL (0.1-1.2); Monocytes Percent Auto 8.6 % (2-11); Neutrophils Absolute Auto 5.7 x10*3/uL (2.0-8.3); Neutrophils Percent Auto 63.2 % (45-73); Platelet Count 395 X10*3/uL (160-400); Red Blood Count 4.86 X10*6/uL (4.20-5.50); Red Cell Distribution Width 14.4 % (11.0-16.0)
== END 2024-08-11 07:37 | disposition home or self-care (01) ==
LOC: HO.LABR 07:36
PROVIDERS: Visit Provider Psychiatry & Neurology Psychiatry
DX: Z79.899 Other long term (current) drug therapy (principal)
CPT/HCPCS: 36415; 85025

== ENCOUNTER 2024-08-18 07:56 | Outpatient (REF) | payer OTHER, SELFPAY ==
[2024-08-18 08:13] LABS: MANUAL DIFF FLAG NO
[2024-08-18 08:36] LABS: Basophils Percent Auto 0.3 % (0-2); Eosinophils Absolute Auto 0.1 X10*3/uL (0.0-0.4); Eosinophils Percent Auto 1.2 % (0-4); Hematocrit 38.6 % (37.0-47.0); Imm Gran Abs Auto 0.04 X10*3/uL (0.00-0.03); Imm Gran Pct Auto 0.4 % (0.0-0.4); Lymphocytes Absolute Auto 2.3 X10*3/uL (1.2-4.9); Lymphocytes Percent Auto 25.1 % (20-40); Mean Corpuscular HGB Conc 33.7 g/dl (31.0-35.0); Mean Corpuscular Hemoglobin 27.5 pg (27.0-33.0); Mean Corpuscular Volume 81.8 fL (80.0-98.0); Mean Platelet Volume 9.7 fL (9.4-12.3); Monocytes Absolute Auto 0.7 X10*3/uL (0.1-1.2); Monocytes Percent Auto 7.4 % (2-11); Neutrophils Absolute Auto 6.1 x10*3/uL (2.0-8.3); Neutrophils Percent Auto 65.6 % (45-73); Platelet Count 388 X10*3/uL (160-400); Red Blood Count 4.72 X10*6/uL (4.20-5.50); Red Cell Distribution Width 14.6 % (11.0-16.0); White Blood Count 9.3 X10*3/uL (4.8-10.8)
== END 2024-08-18 07:57 | disposition home or self-care (01) ==
LOC: HO.LABR 07:56
PROVIDERS: PCP Internal Medicine; Visit Provider Psychiatry & Neurology Psychiatry
DX: Z79.899 Other long term (current) drug therapy (principal)
CPT/HCPCS: 36415; 85025; 90471; 90656; 96127; 99395

== ENCOUNTER 2024-08-18 12:46 | Outpatient (AMB) | payer OTHER, SELFPAY ==
[2024-08-18 13:20] VITALS: BP 122/70; PULSE 115; O2SAT 99; BMI 44.7
--- NOTE | 2024-08-18 13:20 | A.OFFPC_ITS ---
Vital Signs 08/18/24 13:20 Height 5 ft Weight 229 lb BMI 44.7 BP 122/70 Blood Pressure Location Rt brachial Position Sitting Pulse 115 H Pulse Source Pulse Oximeter Pulse Oximetry (%) 99 Oxygen Delivery Method Room Air Intake Visit Reasons: PE r/s from MAY/ue - see comments Intake Note: Pt is here today for her PE Allergies haloperidol Adverse Reaction (Verified 08/22/24 02:13) EPS metoprolol Adverse Reaction (Verified 08/22/24 02:13) Diarrhea Medication List - Last Reconciled 08/18/24 by Ruma Alvarado MD clozapine 100 mg PO BEDTIME 30 days lamotrigine 25 mg PO DAILY Tobacco use date assessed: 08/18/24 Dental Screening Dental Screen Date: 08/18/24 Did you have a dental visit in the last 12 months?: No Did you have a dental problem in the last 6 months where you did not have access to dental care?: No Was dental information given to patient?: Patient has dentist HPI PE r/s from ue - see comments HPI Details 23-year-old lady with past medical histo ry of schizophrenia, bipolar disorder, currently followed by psychiatrist at [facility] and gets regular therapy, here today for her physical exam. She has history of migraine headaches, currently on lamotrigine 25 mg daily, which has been helping prevent acute attacks, currently followed by Neurology.. Up-to-date with all her vaccinations but has not received the new COVID karli aldair vaccine. She has been feeling well, but has intermittent episodes of palpitations, with no accompanying chest pain or lightheadedness, or shortness of breath. [facility] Medical History (Updated 08/18/24 @ 13:52 by Ruma Alvarado MD) Morbid obesity Schizophrenia Bipolar disorder in remission Intellectual disability Vitamin D deficiency Vitamin B12 deficiency Hx of ovarian cyst Supraventricular tachycardia by ECG Migraine Surgical History H/O removal of cyst Family History Mother Bipolar disorder Mental health disorder Social History Household Members: Family Household Members Other:: Pt unable to answer questions d/t mental status. Housing: House Housing Other:: at home with mother Are you a primary child care cook to a significant other at home: No Alcohol intake: never Patient Tobacco Use Status: Never used Tobacco e-Cigarette/Vaping Use: Never Used Second Hand Smoke Exposure: No Substance Use Type: Unknown Advance Directives Date on File: 12/10/23 service: No Current occupational status: unemployed Sexual orientation: Straight/Heterosexual Gender identity: Female Cognitive needs: No Hearing needs: No Vision needs: No Female Reproductive History Menstrual Age of Menarche: 14 Questionnaire PHQ-9 Over the last 2 weeks, how often have you been bothered by any of the following problems? 1. Little interest or pleasure in doing things: nearly every day 2. Feeling down, depressed, or hopeless: more than half the days 3. Trouble falling or staying asleep, or sleeping too much: not at all 4. Feeling tired or having little energy: not at all 5. Poor appetite or overeating: several days 6. Feeling bad about yourself - or that you are a failure or have let yourself or your family down: more than half the days 7. Trouble concentrating on things, such as reading the newspaper or watching television: more than half the days 8. Moving or speaking so slowly that other people could have noticed. Or the opposite - being so fidgety or restless that you have been moving around a lot more than usual: not at all 9. Thoughts that you would be better off or of hurting yourself in some way: not at all Total score: 10 Depression Screening Interpretation: Positive (Currently followed by Psychiatry and therapist at [facility]) Depression Screening Follow-up: Existing condition, In treatment and Community Mental Health Worker F/U Depression Screening Done: Yes Source: Developed by Drs. Micheal Lassiter, Pippa Romero, Rick Munguia and colleagues, with an educational snow from [employer]. Thrive Questionnaire Date Thrive assessed: 12/17/23 I am a: Patient What is your living situation today?: I have a steady place to live Within the past 12 months, did the food you bought not last and you didn't have the money to get more?: Never true Within the past 12 months, did you worry whether your food would run out before you got money to buy more?: Never true Do you have trouble paying for medicines?: No Do you have trouble getting transportation to medical appointments?: No Do you have trouble paying your heating and electricity bill?: No Do you have trouble taking care of your child, family member or friend?: No Do you have trouble with day-to-day activities such as bathing, preparing meals, shopping, managing finances, etc.?: No Are you currently unemployed and looking for a job?: I choose not to answer this question Are you interested in more education?: No Please select the resources that you would like help with: None Currently or been in a relationship where the following occur: No concerns reported THRIVE Score: 0 AUDIT C Alcohol Use Questionnaire (AUDIT-C) 1. How often do you have a drink containing alcohol?: Never Total Score: 0 EDWIN-7 AMB Questionnaire EDWIN-7 Date EDWIN - 7 assessed: 12/10/23 Feeling nervous, anxious, or on edge: 2 = More than half the days Not being able to stop or control worryin = More than half the days Worrying too much about different things: 2 = More than half the days Trouble relaxin = More than half the days Being so restless that it is hard to sit still: 0 = Not at all Becoming easily annoyed or irritable: 1 = Several days Feeling afraid as if something awful might happen: 1 = Several days Total EDWIN-7 score (0-4 normal; 5-9 mild; 10-14 moderate; 15-21 severe): 10 Source: Developed by Drs. Micheal Lassiter, Pippa Romero, Rick Munguia and colleagues, with an educational snow from [employer]. EDWIN-7 Assessment Billing EDWIN-7 Assessment Tool: EDWIN-7 Assessment 65757 Review of Systems Const Denies chills, Denies fever(s), Denies malaise and Denies weakness Eyes Reports no additional complaints ENT Reports no additional complaints Card Denies chest pain, Denies chest pain with activity, Denies syncope, Denies edema, Denies claudication, Denies leg edema, Denies lightheadedness, Denies dyspnea and Denies dyspnea on exertion Resp Denies cough, Denies dyspnea, Denies dyspnea on exertion and Denies wheezing GI Denies abdominal pain, Denies hematochezia, Denies change in bowel habits, Denies change in stool character, Denies heartburn, Denies nausea and Denies vomiting Denies hematuria, Denies urinary frequency and Denies dysuria Musc Denies arthralgias, Denies muscle weakness, Denies numbness and Denies tingling Skin/Breast Denies breast pain, Denies breast mass, Denies change in breast shape and Denies rash Neuro Denies Abnormal speech present, Denies confusion, Denies syncope, Reports memory loss (Status post ECT), Denies numbness, Denies Sensory deficit (Neuro), Denies tingling and Denies weakness Psych Denies confusion, Denies depression and Reports memory loss (Status post ECT) Endo Reports no additional complaints Kurtis/Lymph Denies easy bleeding and Denies easy bruising Aller/Immun Denies wheezing Physical exam (Primary Care) Vital Signs: Last Vital Signs Pulse 115 H 08/18/24 13:20 BP 122/70 08/18/24 13:20 Pulse Ox 99 08/18/24 13:20 Oxygen Delivery Method Room Air 08/18/24 13:20 BMI result Body Mass Index 44.7 Tobacco/Smoking Status: Tobacco use Status Tobacco use date assessed 08/18/24 08/18/24 13:26 Patient Tobacco Use Status Never used Tobacco 08/18/24 13:26 e-Cigarette/Vaping Use Never Used 08/18/24 13:26 PHQ-9: PHQ-9 Score PHQ-9: Total score 10 08/18/24 13:41 Depression Screening Interpretation: Positive (Currently followed by Psychiatry and therapist at [facility]) Depression Screening Follow-up: Existing condition, In treatment and Community Mental Health Worker F/U Thrive Assessment: Date of Thrive Assessment Date Thrive assessed 12/17/23 08/18/24 13:26 Currently or been in a relationship where the following occur: No concerns reported Const General: No confusion Nutritional Appearance: obese Orientation/consciousness: No confusion [facility] Head: Yes normocephalic Ears: hearing grossly normal bilaterally and external ears normal General nose exam: Normal external nose present Face and sinus: Yes face symmetric Eyes General: appearance normal, both eyes and all related structures Neck Neck: Yes full ROM, Yes no lymphadenopathy and Yes supple Chest Breast/axilla inspection: normal inspection of the breasts Breast/axilla palpation: normal palpation of the breasts Resp Auscultation: clear to auscultation bilaterally Cardio Rate: regular rate Rhythm: regular rhythm Heart sounds: S1 normal heart sound present and S2 normal heart sound present GI Palpation (GI): Soft to palpation, no guarding and no masses Auscultation: normal bowel sounds General: Yes no CVA tenderness Back/Spine/Pelvis Back: no CVA tenderness and No back tenderness Skin General skin exam: no rashes or lesions noted Neuro General: No confusion Speech: No Abnormal speech present Sensory Exam: No Sensory deficit (Neuro) Extrem General: Yes full ROM, Yes no joint enlargement and Yes no clubbing, cyanosis or edema Psych Other: Flat affect Appearance: grossly normal and well kempt Mental Status: mental status grossly normal Speech and movement: Normal speech and movement present Affect: Blunted affect present Attitude: cooperative Office Procedures Flu Questionnaire Does the patient have a severe egg allergy?: No Does the patient have severe life threatening allergies?: No Does the patient have a fever or illness today?: No Has the patient ever had Guillain-[place] Syndrome?: No Has the patient ever had any past reaction to a flu shot?: No Immunizations Fluarix Triv [id number] (PF) 45 mcg (15 mcg x 3)/0.5 mL IM syringe Performing Provider: Ruma Alvarado MD Performing Location[place] [facility] Administered by: Lisa Meyers CMA on 08/18/24 13:34 Dose Route Admin Location Dispensed Lot Number Expiration Date NDC Professor Of Economics 0.5 mL IM Left Deltoid 0.5 mL [id number] 02/15/25 96234-343-12 WO Funding VIS Given Date VIS Provided VIS Publication Date 08/18/24 Single Vaccine 21 Eligibility Eligibility Date Funding Source Not [facility] Eligible 08/18/24 Private Results Reviewed Results Reviewed: Name: Preeti Adame Age/Sex: 23/F : 2000 Unit#: [id number] Attend Dr: GURINDER YUN MD Re08/18/24 Status: REG REF Location: [facility] Disch: SPEC : [id number] JARET: 08/18/24 STATUS: COMP REQ : [id number] RECD: 08/18/[address]: GURINDER YUN MD COMP: 08/18/24 ENTERED: 08/18/[address] [facility] [address]: ORDERED: CBC Auto Diff Test Result Flag Reference WBC 9.3 4.8-10.8 X10*3/uL RBC 4.72 4.20-5.50 X10*6/uL HGB 13.0 12.0-16.0 g/dl HCT 38.6 37.0-47.0 % MCV 81.8 80.0-98.0 fL MCH 27.5 27.0-33.0 pg MCHC 33.7 31.0-35.0 g/dl RDW 14.6 11.0-16.0 % PLT 388 160-400 X10*3/uL MPV 9.7 9.4-12.3 fL Neut Pct Auto 65.6 45-73 % ImGran Pct Auto 0.4 0.0-0.4 % Lymp Pct Auto 25.1 20-40 % Blanco Pct Auto 7.4 2-11 % Eos Pct Auto 1.2 0-4 % Baso Pct Auto 0.3 0-2 % NRBC Pct Auto 0.0 0.0-0.2 /100WBC ANC Neut Abs # 6.1 2.0-8.3 x10*3/uL ImGran Abs Auto 0.04 H 0.00-0.03 X10*3/uL Lymph Abs Auto 2.3 1.2-4.9 X10*3/uL Blanco Abs Auto 0.7 0.1-1.2 X10*3/uL Eos Abs Auto 0.1 0.0-0.4 X10*3/uL Baso Abs Auto 0.0 0.0-0.2 X10*3/uL NRBC Abs Auto 0.000 0.0-0.012 X10*3/uL Name: Preeti Adame Age/Sex: 23/F : 2000 Unit#: [id number] Attend Dr: Hossein Smith MD Re11/16/23 Status: DIS IN Location: [facility] 506-1 Disch: 12/05/23 SPEC : [id number] JARET: 11/17/23 STATUS: COMP REQ : [id number] RECD: 11/17/[address]: Christopher Ackerman MD COMP: 11/17/23 ENTERED: 11/17/23-[address]: Physician,Unknown ORDERED: CMP Fast, Lipid Panel Test Result Flag Reference Sodium 141 135-145 mmol/L Potassium 3.8 3.3-5.1 mmol/L CL 110 H 96-108 mmol/L CO2 20 L 22-29 mmol/L Gap 15 12-20 BUN 3 L 9-16 mg/dL Creat 0.57 0.5-1.4 mg/dL Estimated CrCl Test not performed Unable to calculate eCrCL; all parameters not provided. EGFR > 60 NOTE: For -Namibian individuals, multiply the result by 1.210. Chronic Kidney Disease: Estimated GFR < 60 mL/min/1.73m2 Severe Kidney Disease: Estimated GFR < 15 mL/min/1.73m2 FBS 74 60-99 mg/dL CA 9.4 8.4-10.2 mg/dL Total Bili 0.4 0.0-1.0 mg/dL AST (GOT) 30 5-31 U/L ALT (GPT) 36 H 0-31 U/L Protein, Total 6.9 6.5-8.0 g/dL Alb 3.9 3.5-5.0 g/dL Triglyceride 85 <150 mg/dL Desirable Triglyceride: less than 150 mg/dL Borderline High Triglyceride 150-199 mg/dL High Triglyceride: 200-499 mg/dL Very High Triglyceride: greater than or equal to 5OO mg/dL Cholesterol 142 <200 mg/dL Desirable Cholesterol: less than 200 mg/dL Borderline High Cholesterol: 200-239 mg/dL High Cholesterol: greater than 239 mg/dL LDL Calculated 73 <100 mg/dL Desirable LDL: less than 100 mg/dL Near Optimal/Above Optimal LDL: 110-129 mg/dL Borderline High LDL: 130-159 mg/dL High LDL: 160-189 mg/dL Very High LDL: greater than or equal to 190 mg/dL HDL 52 >40 mg/dL Desirable HDL: greater than 40 mg/dL Note: This HDL assay may give artificially low results in patients with liver disease. Alk Phos 72 39-117 U/L Coding Level of Care Code Est Pt Prev Care 18-39y(84789) Diagnoses Annual visit for general adult medical examination with abnormal findings Z00. 01 Vitamin B12 deficiency E53.8 Vitamin D deficiency E55.9 Morbid obesity E66.01 Schizophrenia F20.9 Bipolar disorder in remission F31.70 Additional Codes EDWIN-7 Assessment Billing - EDWIN-7 Assessment Tool: EDWIN-7 Assessment 56467 ([id number]) Assessment & Plan Assessment & Plan (1) Annual visit for general adult medical examination with abnormal findings: Code(s): Z00.01 - Encounter for general adult medical examination with abnormal findings Plan: Will check appropriate labs. Recommended dental visit every 6 months and regular eye exams, at least every 2 years. Take adequate calcium in diet and vitamin-D 3 at 2000 IU per cap once a day, in addition to weight-bearing exercises to help maintain good muscle tone and weight control. Instructed to do self-breast exam, and recommended to get yearly mammogram, starting at age 40. Patient also reminded to get her cervical cancer screening, but declined as she is not sexually active. She was reminded as well to get her COVID booster and was given her flu shot today (2) Vitamin B12 deficiency: Code(s): E53.8 - Deficiency of other specified B group vitamins Category: Medical Plan: Will check vitamin B12 levels (3) Vitamin D deficiency: Code(s): E55.9 - Vitamin D deficiency, unspecified Category: Medical Plan: Will check vitamin-D level (4) Morbid obesity: Code(s): E66.01 - Morbid (severe) obesity due to excess calories Category: Medical Plan: Recommend to to eat Mediterranean diet, limit foods high in fat, sugar, and calories, eat slowly, pay attention to portion sizes, plan your meals ahead of time, start regular physical activity 150 minutes of moderate intensity exercise or 90 minutes/week of vigorous exercise (5) Schizophrenia: Comment: sees DR GURINDER YUN at [facility] , sees therapist by phone every 3-4 weeks Code(s): F20.9 - Schizophrenia, unspecified Category: Medical Plan: Currently followed by psychiatry (6) Bipolar disorder in remission: Code(s): F31.70 - Bipolar disorder, currently in remission, most recent episode unspecified Category: Medical Plan: Followed by Psychiatry at [facility] Orders: Orders Vitamin D 25-OH Total 08/18/24 E53.8 - Deficiency of other specified B group vitamins, E55.9 - Vitamin D deficiency, unspecified Influenza 1182-3833 Immunization 08/18/24 Z23 - Encounter for immunization Vitamin B12 and Folate 08/18/24 E53.8 - Deficiency of other specified B group vitamins, E55.9 - Vitamin D deficiency, unspecified
== END 2024-08-18 13:53 | disposition home or self-care (01) ==
PROVIDERS: PCP Internal Medicine; Visit Provider Internal Medicine
DX: Z23 Encounter for immunization (principal)

== ENCOUNTER 2024-09-01 09:48 | Outpatient (REF) | payer OTHER, SELFPAY ==
[2024-09-01 10:09] LABS: MANUAL DIFF FLAG NO
[2024-09-01 10:24] LABS: Basophils Percent Auto 0.5 % (0-2); Eosinophils Absolute Auto 0.1 X10*3/uL (0.0-0.4); Eosinophils Percent Auto 1.2 % (0-4); Hematocrit 39.4 % (37.0-47.0); Imm Gran Abs Auto 0.03 X10*3/uL (0.00-0.03); Imm Gran Pct Auto 0.4 % (0.0-0.4); Lymphocytes Absolute Auto 2.1 X10*3/uL (1.2-4.9); Lymphocytes Percent Auto 24.4 % (20-40); Mean Corpuscular Volume 81.9 fL (80.0-98.0); Mean Platelet Volume 9.9 fL (9.4-12.3); Monocytes Absolute Auto 0.6 X10*3/uL (0.1-1.2); Monocytes Percent Auto 7.3 % (2-11); Neutrophils Absolute Auto 5.6 x10*3/uL (2.0-8.3); Neutrophils Percent Auto 66.2 % (45-73); Platelet Count 395 X10*3/uL (160-400); Red Blood Count 4.81 X10*6/uL (4.20-5.50); Red Cell Distribution Width 14.5 % (11.0-16.0); White Blood Count 8.5 X10*3/uL (4.8-10.8)
== END 2024-09-01 09:49 | disposition home or self-care (01) ==
LOC: HO.LABR 09:48
PROVIDERS: PCP Internal Medicine; Visit Provider Psychiatry & Neurology Psychiatry
DX: Z79.899 Other long term (current) drug therapy (principal)
CPT/HCPCS: 36415; 85025

== ENCOUNTER 2024-09-15 10:41 | Outpatient (REF) | payer OTHER, SELFPAY ==
[2024-09-15 11:00] LABS: MANUAL DIFF FLAG NO
[2024-09-15 11:06] LABS: Basophils Percent Auto 0.4 % (0-2); Eosinophils Absolute Auto 0.1 X10*3/uL (0.0-0.4); Eosinophils Percent Auto 0.6 % (0-4); Hematocrit 40.1 % (37.0-47.0); Hemoglobin 13.2 g/dl (12.0-16.0); Imm Gran Abs Auto 0.03 X10*3/uL (0.00-0.03); Imm Gran Pct Auto 0.3 % (0.0-0.4); Lymphocytes Absolute Auto 1.8 X10*3/uL (1.2-4.9); Lymphocytes Percent Auto 19.3 % (20-40); Mean Corpuscular HGB Conc 32.9 g/dl (31.0-35.0); Mean Corpuscular Hemoglobin 27.3 pg (27.0-33.0); Mean Corpuscular Volume 82.9 fL (80.0-98.0); Mean Platelet Volume 9.7 fL (9.4-12.3); Monocytes Absolute Auto 0.6 X10*3/uL (0.1-1.2); Monocytes Percent Auto 6.5 % (2-11); Neutrophils Absolute Auto 6.9 x10*3/uL (2.0-8.3); Neutrophils Percent Auto 72.9 % (45-73); Platelet Count 386 X10*3/uL (160-400); Red Blood Count 4.84 X10*6/uL (4.20-5.50); Red Cell Distribution Width 14.8 % (11.0-16.0); White Blood Count 9.5 X10*3/uL (4.8-10.8)
--- OUTSIDE RECORDS SUMMARY | 2024-09-15 11:49 | XMS_ITS | Encounter Summary ---
Author Organization [facility] Address [address] [place] [address] Care Team Providers Care Psychology Fellow Name Role Phone Lisa Moses MD Primary Care Provider Delonte richards Encounter Details Date Type Department Care Team Description 10/25/2020 Old Medical Records Medical Records [address] [place] [id number] Abstract, Provider Social History Tobacco Use Types Packs/Day Years Used Date Smoking Tobacco: Never Smokeless Tobacco: Never Alcohol Use Standard Drinks/Week Comments No 0 (1 standard drink = 0.6 oz pur e alcohol) Sex Assigned at Date Recorded Not on file documented as of this encounter Plan of Treatment Not on file documented as of this encounter Visit Diagnoses Not on filedocumented in this encounter Care Teams Psychology Fellow Relationship Specialty Start Date End Date Lisa Moses MD PCP - General Pediatrics 12/02/17 documented as of this encounter
--- OUTSIDE RECORDS SUMMARY | 2024-09-15 11:49 | XMS_ITS | Encounter Summary ---
Author Organization [facility] Address [address] [place] [address] Care Team Providers Care Call Center Consultant Name Role Phone Sylvia Rangel MD Primary Care Provider Unavaildexter e Lisa Moses MD Primary Care Provider Unavaila ble Encounter Details Date Type Department Care Team Description 09/29/2015 Shipping Lead Person Report Medical Records [address] [place] [address] Dominic Merrill Social History Tobacco Use Types Packs/Day Years Used Date Smoking Tobacco: Never Smokeless Tobacco: Never Alcohol Use Standard Drinks/Week Comments Not Asked 0 (1 standard drink = 0.6 oz pur e alcohol) Sex Assigned at Date Recorded Not on file documented as of this encounter Plan of Treatment Not on file documented as of this encounter Visit Diagnoses Not on filedocumented in this encounter Care Teams Call Center Consultant Relationship Specialty Start Date End Date Sylvia Rangel MD PCP - General 02 12/01/17 Lisa Moses MD PCP - General Pediatrics 12/02/17 documented as of this encounter
--- OUTSIDE RECORDS SUMMARY | 2024-09-15 11:49 | XMS_ITS | Encounter Summary ---
Author Organization [facility] Address [address] [place] [address] Care Team Providers Care Regional Extension Service Specialist Name Role Phone Lisa Moses MD Primary Care Provider Delonte richards Encounter Details Date Type Department Care Team Description 05/11/2019 Orders Only Lab - [address] [address] Paresh Begum MD Routine general medical examination at a health care facility (Primary Dx) Social History Tobacco Use Types Packs/Day Years Used Date Smoking Tobacco: Never Smokeless Tobacco: Never Alcohol Use Standard Drinks/Week Comments No 0 (1 standard drink = 0.6 oz pur e alcohol) Sex Assigned at Date Recorded Not on file documented as of this encounter Plan of Treatment Scheduled Orders Name Type Priority Associated Diagnoses Orde r Schedule URINE, CULTURE Lab Routine Routine general medical examination at a health care facility Expected: 05/11/2019, Expires: 05/10/2020 documented as of this encounter Visit Diagnoses Diagnosis Routine general medical examination at a health care facility- Primary documented in this encounter Care Teams Regional Extension Service Specialist Relationship Specialty Start Date End Date Lisa Moses MD PCP - General Pediatrics 12/02/17 documented as of this encounter
--- OUTSIDE RECORDS SUMMARY | 2024-09-15 11:49 | XMS_ITS | Encounter Summary ---
Author Organization [facility] Address [address] [place] [address] Care Team Providers Care Regional Operations Manager Name Role Phone Sylvia Rangel MD Primary Care Provider Kalyani e Lisa Moses MD Primary Care Provider Sharmina maurice Encounter Details Date Type Department Care Team Description 07/27/2014 Rounder And Backer Report Medical Records [address] [place] [address] Dominic Merrill Social History Tobacco Use Types Packs/Day Years Used Date Smoking Tobacco: Never Smokeless Tobacco: Never Comments:Grandmother quit sm oking in 06/28 Alcohol Use Standard Drinks/Week Comments Not Asked 0 (1 standard drink = 0.6 oz pur e alcohol) Sex Assigned at Date Recorded Not on file documented as of this encounter Plan of Treatment Not on file documented as of this encounter Visit Diagnoses Not on filedocumented in this encounter Care Teams Regional Operations Manager Relationship Specialty Start Date End Date Sylvia Rangel MD PCP - General 02 12/01/17 Lisa Moses MD PCP - General Pediatrics 12/02/17 documented as of this encounter
--- OUTSIDE RECORDS SUMMARY | 2024-09-15 11:49 | XMS_ITS | Encounter Summary ---
Author Organization [facility] Address [address] [place] [address] Care Team Providers Care It Software Engineer Name Role Phone Sylvia Rangel MD Primary Care Provider Kalyani e Lisa Moses MD Primary Care Provider Unavaila ble Encounter Details Date Type Department Care Team Description 02/11/2017 Visual Arts Teacher Report Medical Records [address] [place], [place] [id number] [place] [address] For Social History Tobacco Use Types Packs/Day Years [...] on filedocumented in this encounter Care Teams It Software Engineer Relationship Specialty Start Date End Date Sylvia Rangel MD PCP - General 02 12/01/17 Lisa Moses MD PCP - General Pediatrics 12/02/17 documented as of this encounter
--- OUTSIDE RECORDS SUMMARY | 2024-09-15 11:49 | XMS_ITS | Encounter Summary ---
Author Organization [facility] Address [address] [place] [address] Care Team Providers Care Cyber Security Systems Engineer Name Role Phone Sylvia Rangel MD Primary Care Provider Kalyani e Lisa Moses MD Primary Care Provider Sharmina ble Encounter Details Date Type Department Care Team Description 07/19/2012 Night Triage Doc Medical Records [address] [place] [address] Abstract, Provider Social History Tobacco Use Types [...] on filedocumented in this encounter Care Teams Cyber Security Systems Engineer Relationship Specialty Start Date End Date Sylvia Rangel MD PCP - General 02 12/01/17 Lisa Moses MD PCP - General Pediatrics 12/02/17 documented as of this encounter
--- OUTSIDE RECORDS SUMMARY | 2024-09-15 11:49 | XMS_ITS | Encounter Summary ---
Author Organization [facility] Address [address] [place] [address] Care Team Providers Care Hvac Operations Technician Name Role Phone Lisa Moses MD Primary Care Provider Delonte richards Encounter Details Date Type Department Care Team Description 10/17/2020 Warehouse Shipping Clerk Report Medical Records [address] [place] [id number] Social History Tobacco Use Types Packs/Day Years [...] on filedocumented in this encounter Care Teams Hvac Operations Technician Relationship Specialty Start Date End Date Lisa Moses MD PCP - General Pediatrics 12/02/17 documented as of this encounter
--- OUTSIDE RECORDS SUMMARY | 2024-09-15 11:49 | XMS_ITS | Encounter Summary ---
Author Organization [facility] Address [address] [place] [address] Care Team Providers Care Tamper Operator Name Role Phone Sylvia Rangel MD Primary Care Provider Unavaildexter e Lisa Moses MD Primary Care Provider Unavaila ble Encounter Details Date Type Department Care Team Description 08/31/2016 Night Triage Doc Medical Records [address] [place] [id number] Abstract, Provider Social History Tobacco Use Types [...] on filedocumented in this encounter Care Teams Tamper Operator Relationship Specialty Start Date End Date Sylvia Rangel MD PCP - General 02 12/01/17 Lisa Moses MD PCP - General Pediatrics 12/02/17 documented as of this encounter
--- OUTSIDE RECORDS SUMMARY | 2024-09-15 11:49 | XMS_ITS | Encounter Summary ---
Author Organization [facility] Address [address] [place] [address] Care Team Providers Care Work Checker Name Role Phone Sylvia Rangel MD Primary Care Provider Unavaildexter e Lisa Moses MD Primary Care Provider Unavaila ble Encounter Details Date Type Department Care Team Description 05/12/2015 Retail And Promotions Coordinator Report Medical Records [address] [place] [address] Dominic Merrill Social History Tobacco Use Types [...] on filedocumented in this encounter Care Teams Work Checker Relationship Specialty Start Date End Date Sylvia Rangel MD PCP - General 02 12/01/17 Lisa Moses MD PCP - General Pediatrics 12/02/17 documented as of this encounter
--- OUTSIDE RECORDS SUMMARY | 2024-09-15 11:49 | XMS_ITS | Encounter Summary ---
Author Organization [facility] Address [address] [place] [address] Care Team Providers Care Search Engine Optimization Analyst Name Role Phone Sylvia Rangel MD Primary Care Provider Kalyani e Lisa Moses MD Primary Care Provider Sharmina maurice Encounter Details Date Type Department Care Team Description 11/13/2011 Chief Gauger Report Medical Records [address] [place] [address] Dominic Merrill Social History Tobacco Use Types [...] on filedocumented in this encounter Care Teams Search Engine Optimization Analyst Relationship Specialty Start Date End Date Sylvia Rangel MD PCP - General 02 12/01/17 Lisa Moses MD PCP - General Pediatrics 12/02/17 documented as of this encounter
--- OUTSIDE RECORDS SUMMARY | 2024-09-15 11:49 | XMS_ITS | Encounter Summary ---
Author Organization [facility] Address [address] [place] [address] Care Team Providers Care Electricity Trading Analyst Name Role Phone Sylvia Rangel MD Primary Care Provider Unavaildexter e Lisa Moses MD Primary Care Provider Unavaila ble Encounter Details Date Type Department Care Team Description 09/24/2011 Assembly Associate Report Medical Records [address] [place] [address] Bryce Alaniz MD Social History Tobacco Use Types Packs/Day Years [...] on filedocumented in this encounter Care Teams Electricity Trading Analyst Relationship Specialty Start Date End Date Sylvia Rangel MD PCP - General 02 12/01/17 Lisa Moses MD PCP - General Pediatrics 12/02/17 documented as of this encounter
--- OUTSIDE RECORDS SUMMARY | 2024-09-15 11:49 | XMS_ITS | Encounter Summary ---
Author Organization [facility] Address [address] [place] [address] Care Team Providers Care Dairy Farm Supervisor Name Role Phone Sylvia Rangel MD Primary Care Provider Unavaildexter e Lisa Moses MD Primary Care Provider Unavaila ble Encounter Details Date Type Department Care Team Description 12/27/2016 Night Triage Doc Medical Records [address] [place] [address] Abstract, Provider Social History Tobacco Use Types [...] on filedocumented in this encounter Care Teams Dairy Farm Supervisor Relationship Specialty Start Date End Date Sylvia Rangel MD PCP - General 02 12/01/17 Lisa Moses MD PCP - General Pediatrics 12/02/17 documented as of this encounter
--- OUTSIDE RECORDS SUMMARY | 2024-09-15 11:49 | XMS_ITS | Encounter Summary ---
Author Organization [facility] Address [address] [place] [address] Care Team Providers Care Police Captain Precinct Name Role Phone Sylvia Rangel MD Primary Care Provider Kalyani e Lisa Moses MD Primary Care Provider Sharmina maurice Encounter Details Date Type Department Care Team Description 08/18/2012 Silk Screen Layout Drafter Report Medical Records [address] [place] [address] Dominic Merrill Social History Tobacco Use Types [...] on filedocumented in this encounter Care Teams Police Captain Precinct Relationship Specialty Start Date End Date Sylvia Rangel MD PCP - General 02 12/01/17 Lisa Moses MD PCP - General Pediatrics 12/02/17 documented as of this encounter
--- OUTSIDE RECORDS SUMMARY | 2024-09-15 11:49 | XMS_ITS | Encounter Summary ---
Author Organization [facility] Address [address] [place] [address] Care Team Providers Care Truss Assembler Name Role Phone Sylvia Rangel MD Primary Care Provider Unavaildexter e Lisa Moses MD Primary Care Provider Unavaila ble Encounter Details Date Type Department Care Team Description 07/21/2015 Powder Line Repairer Report Medical Records [address] [place] [address] Dominic Merrill Social History Tobacco Use Types [...] on filedocumented in this encounter Care Teams Truss Assembler Relationship Specialty Start Date End Date Sylvia Rangel MD PCP - General 02 12/01/17 Lisa Moses MD PCP - General Pediatrics 12/02/17 documented as of this encounter
--- OUTSIDE RECORDS SUMMARY | 2024-09-15 11:49 | XMS_ITS | Encounter Summary ---
Author Organization [facility] Address [address] [place] [address] Care Team Providers Care Shirt Trimmer Name Role Phone Sylvia Rangel MD Primary Care Provider Kalyani e Lisa Moses MD Primary Care Provider Sharmina ble Encounter Details Date Type Department Care Team Description 01/23/2006 [facility] Medical Records [address] [place] [address] Abstract, Provider Social History Tobacco Use Types [...] on filedocumented in this encounter Care Teams Shirt Trimmer Relationship Specialty Start Date End Date Sylvia Rangel MD PCP - General 02 12/01/17 Lisa Moses MD PCP - General Pediatrics 12/02/17 documented as of this encounter
--- OUTSIDE RECORDS SUMMARY | 2024-09-15 11:49 | XMS_ITS | Encounter Summary ---
Author Organization [facility] Address [address] [place] [address] Care Team Providers Care Supervisor Last Model Department Name Role Phone Lisa Moses MD Primary Care Provider Unavaila ble Reason for Visit * Reason Comments E-prescribe Rx Request Encounter Details Date Type Department Care Team Description 01/27/2022 Refill OBGYN - [place] [address] [place] [address] Alexander Mcdonald, DO E-prescribe Rx Request Social History Tobacco Use Types Packs/Day Years Used Date Smoking Tobacco: Never Smokeless Tobacco: Never Alcohol Use Standard Drinks/Week Comments No 0 (1 standard drink = 0.6 oz pur e alcohol) Sex Assigned at Date Recorded Not on file documented as of this encounter Miscellaneous Notes * Telephone Encounter - Anisha Romo - 01/29/2022 10:53 AM EDT WHEN WAS THE PATIENTS LAST ANNUAL SUPERVISOR ASBESTOS TEXTILE EXAM? 01/12/21 office visit Does patient have an upcoming appointment? No (THE MEDICATION REQUESTED IS ON THE MED LIST ABOVE) Did you check the Pharmacy information above?: YES Indicate how soon the patient needs the script: BY THE END OF THE DAY Patient would like script to be: E-PRESCRIBED/FAXED TO PHARMACY Is the doctor here today?: NO Can the message wait until the doctor returns?: NO Has the patient been told that the prescription will not be filled until the end of the day? NO Payor: [employer] / Plan: [employer] [place] / Product Type: MEDICAID RISK documented in this encounter Plan of Treatment Not on file documented as of this encounter Visit Diagnoses Not on filedocumented in this encounter Care Teams Supervisor Last Model Department Relationship Specialty Start Date End Date Lisa Moses MD PCP - General Pediatrics 12/02/17 documented as of this encounter
--- OUTSIDE RECORDS SUMMARY | 2024-09-15 11:49 | XMS_ITS | Encounter Summary ---
Author Organization [facility] Address [address] [place] [address] Care Team Providers Care Reconsignment Clerk Name Role Phone Sylvia Rangel MD Primary Care Provider Unavaildexter e Lisa Moses MD Primary Care Provider Unavaila ble Encounter Details Date Type Department Care Team Description 02/28/2017 Radiologic Therapist Report Medical Records [address] [place], [place] [id number] [place] [address] For Social History Tobacco Use Types Packs/Day [...] on filedocumented in this encounter Care Teams Reconsignment Clerk Relationship Specialty Start Date End Date Sylvia Rangel MD PCP - General 02 12/01/17 Lisa Moses MD PCP - General Pediatrics 12/02/17 documented as of this encounter
--- OUTSIDE RECORDS SUMMARY | 2024-09-15 11:49 | XMS_ITS | Encounter Summary ---
Author Organization [facility] Address [address] [place] [address] Care Team Providers Care Security Systems Integrator Name Role Phone Sylvia Rangel MD Primary Care Provider Unavaildexter e Lisa Moses MD Primary Care Provider Unavaila ble Encounter Details Date Type Department Care Team Description 06/28/2015 Appliance Mechanic Report Medical Records [address] [place] [address] Dominic Merrill Social History Tobacco Use Types [...] on filedocumented in this encounter Care Teams Security Systems Integrator Relationship Specialty Start Date End Date Sylvia Rangel MD PCP - General 02 12/01/17 Lisa Moses MD PCP - General Pediatrics 12/02/17 documented as of this encounter
--- OUTSIDE RECORDS SUMMARY | 2024-09-15 11:49 | XMS_ITS | Encounter Summary ---
Author Organization [facility] Address [address] [place] [address] Care Team Providers Care Nursing Clinical Director Name Role Phone Sylvia Rangel MD Primary Care Provider Unavaildexter e Lisa Moses MD Primary Care Provider Unavaila ble Encounter Details Date Type Department Care Team Description 01/30/2010 Spinner Operator Report Medical Records [address] [place] [address] Bryce Alaniz MD Social History Tobacco Use Types Packs/Day Years Used Date Smoking Tobacco: Passive Smo ke Exposure - Never Smoker Comments:Grandmother smokes inside and outside Alcohol Use Standard Drinks/Week Comments Not Asked 0 (1 standard drink = 0.6 oz pur e alcohol) Sex Assigned at Date Recorded Not on file documented as of this encounter Plan of Treatment Not on file documented as of this encounter Visit Diagnoses Not on filedocumented in this encounter Care Teams Nursing Clinical Director Relationship Specialty Start Date End Date Sylvia Rangel MD PCP - General 02 12/01/17 Lisa Moses MD PCP - General Pediatrics 12/02/17 documented as of this encounter
--- OUTSIDE RECORDS SUMMARY | 2024-09-15 11:49 | XMS_ITS | Encounter Summary ---
Author Organization [facility] Address [address] [place] [address] Care Team Providers Care Filling Machine Tender Name Role Phone Sylvia Rangel MD Primary Care Provider Kalyani e Lisa Moses MD Primary Care Provider Sharmina ble Encounter Details Date Type Department Care Team Description 06/23/2016 Release of Information Medical Records [address] [place] [address] Abstract, Provider Social History Tobacco Use Types [...] on filedocumented in this encounter Care Teams Filling Machine Tender Relationship Specialty Start Date End Date Sylvia Rangel MD PCP - General 02 12/01/17 Lisa Moses MD PCP - General Pediatrics 12/02/17 documented as of this encounter
--- OUTSIDE RECORDS SUMMARY | 2024-09-15 11:49 | XMS_ITS | Encounter Summary ---
Author Organization [facility] Address [address] [place] [address] Care Team Providers Care Packager Or Packer And Weigher Name Role Phone Sylvia Rangel MD Primary Care Provider Unavaildexter e Lisa Moses MD Primary Care Provider Unavaila ble Encounter Details Date Type Department Care Team Description 07/19/2010 Environmental Services Worker Report Medical Records [address] [place] [address] Bryce Alaniz MD Social History Tobacco Use [...] on filedocumented in this encounter Care Teams Packager Or Packer And Weigher Relationship Specialty Start Date End Date Sylvia Rangel MD PCP - General 02 12/01/17 Lisa Moses MD PCP - General Pediatrics 12/02/17 documented as of this encounter
--- OUTSIDE RECORDS SUMMARY | 2024-09-15 11:50 | XMS_ITS | Encounter Summary ---
Author Organization [facility] Address [address] [place] [address] Care Team Providers Care Plastic Joint Maker Name Role Phone Sylvia Rangel MD Primary Care Provider Unavaildexter e Lisa Moses MD Primary Care Provider Unavaila ble Encounter Details Date Type Department Care Team Description 04/19/2015 International Trade Teacher Report Medical Records [address] [place] [address] Dominic Merrill Social History Tobacco Use Types [...] on filedocumented in this encounter Care Teams Plastic Joint Maker Relationship Specialty Start Date End Date Sylvia Rangel MD PCP - General 02 12/01/17 Lisa Moses MD PCP - General Pediatrics 12/02/17 documented as of this encounter
--- OUTSIDE RECORDS SUMMARY | 2024-09-15 11:50 | XMS_ITS | Encounter Summary ---
Author Organization [facility] Address [address] [place] [address] Care Team Providers Care Fountain Dispenser Name Role Phone Lisa Moses MD Primary Care Provider Unavaila ble Reason for Referral * EXTERNAL (Routine) - Authorized/Booked Specialty Diagnoses / Procedures Referred By Sánchez vogel Referred To Contact Nutrition Diagnoses Obesity due to excess calories, unspecified classification, unspecified whether serious comorbidity present Procedures REFERRAL TO PEDIATRIC NUTRITION Angelina Call RNCPNP [address] [place] [address] External Nutrition Referral ID Status Reason Start Date Expiration Date V isits Requested Visits Authorized SEE NOTE Authorized/B ooked 10/22/2019 01/23/2020 1 1 Reason for Visit * Reason Onset Date Comments REFERRAL 10/22/2019 Encounter Details Date Type Department Care Team Description 10/22/2019 Telephone Pediatrics - [address] [address] Lisa Moses MD REFERRAL Social History Tobacco Use Types Packs/Day Years Used Date Smoking Tobacco: Never Smokeless Tobacco: Never Alcohol Use Standard Drinks/Week Comments No 0 (1 standard drink = 0.6 oz pur e alcohol) Sex Assigned at Date Recorded Not on file documented as of this encounter Miscellaneous Notes * Telephone Encounter - Olya Ramos L.P.N. - 10/22/2019 4:49 PM EST Spoke with mom and will check with her ins tomorrow and to call back with name. * Telephone Encounter - Isabel Qiu - 10/22/2019 3:44 PM EST Mom calling stating that [facility]) is not taking new patients if child can be referred somewhere else. pcp is angelina documented in this encounter Plan of Treatment Not on file documented as of this encounter Visit Diagnoses Diagnosis Obesity due to excess calories, unspecified classification, unspecified whether serious comorbidity present- Primary documented in this encounter Care Teams Fountain Dispenser Relationship Specialty Start Date End Date Lisa Moses MD PCP - General Pediatrics 12/02/17 documented as of this encounter
--- OUTSIDE RECORDS SUMMARY | 2024-09-15 11:50 | XMS_ITS | Encounter Summary ---
Author Organization [facility] Address [address] [place] [address] Care Team Providers Care Yard Specialist Name Role Phone Lisa Moses MD Primary Care Provider Delonte richards Encounter Details Date Type Department Care Team Description 07/14/2019 Sales And Service Change Leader Report Medical Records [address] [place] [address] Social History Tobacco Use Types Packs/Day Years [...] on filedocumented in this encounter Care Teams Yard Specialist Relationship Specialty Start Date End Date Lisa Moses MD PCP - General Pediatrics 12/02/17 documented as of this encounter
--- OUTSIDE RECORDS SUMMARY | 2024-09-15 11:50 | XMS_ITS | Encounter Summary ---
Author Organization [facility] Address [address] [place] [address] Care Team Providers Care Tailor'S Aide Name Role Phone Lisa Moses MD Primary Care Provider Delonte richards Encounter Details Date Type Department Care Team Description 05/10/2020 Director General Report Medical Records [address] [place] [address] Nghia Caputo Social History Tobacco Use Types Packs/Day Years [...] on filedocumented in this encounter Care Teams Tailor'S Aide Relationship Specialty Start Date End Date Lisa Moses MD PCP - General Pediatrics 12/02/17 documented as of this encounter
--- OUTSIDE RECORDS SUMMARY | 2024-09-15 11:50 | XMS_ITS | Encounter Summary ---
Author Organization [facility] Address [address] [place] [address] Care Team Providers Care Application Software Engineer Name Role Phone Lisa Moses MD Primary Care Provider Delonte richards Encounter Details Date Type Department Care Team Description 02/11/2018 Curb Attendant Report Medical Records [address] [place], [place] [id number] [place] [address] Social History Tobacco Use Types Packs/Day Years [...] on filedocumented in this encounter Care Teams Application Software Engineer Relationship Specialty Start Date End Date Lisa Moses MD PCP - General Pediatrics 12/02/17 documented as of this encounter
--- OUTSIDE RECORDS SUMMARY | 2024-09-15 11:50 | XMS_ITS | Encounter Summary ---
Author Organization [facility] Address [address] [place] [address] Care Team Providers Care Civil Project Engineer Name Role Phone Sylvia Rangel MD Primary Care Provider Lisa Yu MD Primary Care Provider Sharmina ble Reason for Visit * Reason Onset Date Comments DCF 04/15/2015 Encounter Details Date Type Department Care Team Description 04/15/2015 Telephone Pediatrics - [address] [address] Sylvia Rangel MD [facility] Social History Tobacco Use Types Packs/Day Years Used Date Smoking Tobacco: Never Smokeless Tobacco: Never Alcohol Use Standard Drinks/Week Comments Not Asked 0 (1 standard drink = 0.6 oz pur e alcohol) Sex Assigned at Date Recorded Not on file documented as of this encounter Miscellaneous Notes * Telephone Encounter - Hortensia Keys R.N. - 04/18/2015 10:01 AM EDT Information given on last pe-fyi * Telephone Encounter - Abi Mcgill - 04/18/2015 9:56 AM EDT Cindy from [facility] calling back on 3 patients * Telephone Encounter - Mckenna Borges L.P.N. - 04/18/2015 9:29 AM EDT Left message to call back. * Telephone Encounter - Hortensia Keys R.N. - 04/15/2015 3:55 PM EDT Left message * Telephone Encounter - Shannan Amaya - 04/15/2015 3:16 PM EDT Name and title of caller: Whit from [facility]- a on file : 2002 Age: 14 yr. Is this an active 51A case: Yes. Case is currently active. Message forwarded to nurse to provide information. Message forwarded to nurse for follow up documented in this encounter Plan of Treatment Not on file documented as of this encounter Visit Diagnoses Not on filedocumented in this encounter Care Teams Civil Project Engineer Relationship Specialty Start Date End Date Sylvia Rangel MD PCP - General 02 12/01/17 Lisa Moses MD PCP - General Pediatrics 12/02/17 documented as of this encounter
--- OUTSIDE RECORDS SUMMARY | 2024-09-15 11:50 | XMS_ITS | Encounter Summary ---
Author Organization [facility] Address [address] [place] [address] Care Team Providers Care Supervisor Briar Shop Name Role Phone Lsia Moses MD Primary Care Provider Delonte richards Encounter Details Date Type Department Care Team Description 04/08/2020 Assistant Professor Of Education Report Medical Records [address] [place] [address] Nghia Caputo Social History Tobacco Use Types [...] filedocumented in this encounter Care Teams Supervisor Briar Shop Relationship Specialty Start Date End Date Lisa Moses MD PCP - General Pediatrics 12/02/17 documented as of this encounter
--- OUTSIDE RECORDS SUMMARY | 2024-09-15 11:50 | XMS_ITS | Encounter Summary ---
Author Organization [facility] Address [address] [place] [address] Care Team Providers Care Military Technician Name Role Phone Lisa Moses MD Primary Care Provider Delonte richards Encounter Details Date Type Department Care Team Description 07/30/2019 Compensation Associate Report Medical Records [address] [place] [address] [facility] [address] [facility] [place] [address] Social History Tobacco Use Types Packs/Day Years [...] on filedocumented in this encounter Care Teams Military Technician Relationship Specialty Start Date End Date Lisa Moses MD PCP - General Pediatrics 12/02/17 documented as of this encounter
--- OUTSIDE RECORDS SUMMARY | 2024-09-15 11:50 | XMS_ITS | Encounter Summary ---
Author Organization [facility] Address [address] [place] [address] Care Team Providers Care Territory Sales Consultant Name Role Phone Lisa Moses MD Primary Care Provider Unavaila ble Reason for Visit * Reason Onset Date Comments International Trade Teacher Feedback 07/07/2019 [facility] Encounter Details Date Type Department Care Team Description 07/07/2019 Telephone Pediatrics - [address] [address] Angelina Call RNCPNP International Trade Teacher Feedback ([facility]) Social History Tobacco Use Types Packs/Day Years Used Date Smoking Tobacco: Never Smokeless Tobacco: Never Alcohol Use Standard Drinks/Week Comments No 0 (1 standard drink = 0.6 oz pur e alcohol) Sex Assigned at Date Recorded Not on file documented as of this encounter Miscellaneous Notes * Telephone Encounter - Kami Fox - 07/07/2019 2:07 PM EST [facility]- order and [facility] neuropsych testing form inter officed to [place] [facility] Triage pool. Once form is completed and SERVICE WRITER receives it back the completed form will be faxed to Genevieve at [facility].Genevieve will contact the patient with appointment information. Kami Tomas Referrals Department documented in this encounter Plan of Treatment Not on file documented as of this encounter Visit Diagnoses Not on filedocumented in this encounter Care Teams Territory Sales Consultant Relationship Specialty Start Date End Date Lisa Moses MD PCP - General Pediatrics 12/02/17 documented as of this encounter
--- OUTSIDE RECORDS SUMMARY | 2024-09-15 11:50 | XMS_ITS | Encounter Summary ---
Author Organization [facility] Address [address] [place] [address] Care Team Providers Care Clamper Name Role Phone Lisa Moses MD Primary Care Provider Unavaila ble Reason for Referral * EXTERNAL (Routine) - Authorized/Booked Specialty Diagnoses / Procedures Referred By Sánchez vogel Referred To Contact Neurology Procedures REFERRAL TO NEUROLOGY Lisa Moses MD [address] [place] [id number] [place] [address] [facility] [address], [address] [place] [id number] Referral ID Status Reason Start Date Expiration Date V isits Requested Visits Authorized SEE NOTE Authorized/B ooked 06/11/2019 09/12/2019 1 1 Reason for Visit * Reason Onset Date Comments Escalation Engineer Feedback 06/11/2019 Dr. Merrill Encounter Details Date Type Department Care Team Description 06/11/2019 Telephone Adult Medicine - [place] [address] [place] [address] Lisa Moses MD Escalation Engineer Feedback (Dr. Merrill) Social History Tobacco Use Types Packs/Day Years Used Date Smoking Tobacco: Never Smokeless Tobacco: Never Alcohol Use Standard Drinks/Week Comments No 0 (1 standard drink = 0.6 oz pur e alcohol) Sex Assigned at Date Recorded Not on file documented as of this encounter Miscellaneous Notes * Telephone Encounter - Jeanie Rodney - 06/11/2019 12:06 PM EDT Hi, Unfortunately Dr. Merrill no longer accepts the patients insurance. I have pended a new order for you to sign. Thank you documented in this encounter Plan of Treatment Not on file documented as of this encounter Visit Diagnoses Not on filedocumented in this encounter Care Teams Clamper Relationship Specialty Start Date End Date Lisa Moses MD PCP - General Pediatrics 12/02/17 documented as of this encounter
--- OUTSIDE RECORDS SUMMARY | 2024-09-15 11:50 | XMS_ITS | Encounter Summary ---
Author Organization [facility] Address [address] [place] [address] Care Team Providers Care Calculus Teacher Name Role Phone Lisa Moses MD Primary Care Provider Delonte richards Encounter Details Date Type Department Care Team Description 09/10/2019 Fabrication And Layout Craftsman Report Medical Records [address] [place] [address] Marya Mckeon MD Social History Tobacco Use Types Packs/Day [...] on filedocumented in this encounter Care Teams Calculus Teacher Relationship Specialty Start Date End Date Lisa Moses MD PCP - General Pediatrics 12/02/17 documented as of this encounter
--- OUTSIDE RECORDS SUMMARY | 2024-09-15 11:50 | XMS_ITS | Encounter Summary ---
Author Organization [facility] Address [address] [place] [address] Care Team Providers Care Account Support Specialist Name Role Phone Lisa Moses MD Primary Care Provider Unavaila ble Reason for Visit * Reason Onset Date Comments Headache 05/07/2018 Encounter Details Date Type Department Care Team Description 05/07/2018 Telephone Pediatrics - [address] [address] Lisa Moses MD Headache Social History Tobacco Use Types Packs/Day Years Used Date Smoking Tobacco: Never Smokeless Tobacco: Never Alcohol Use Standard Drinks/Week Comments No 0 (1 standard drink = 0.6 oz pur e alcohol) Sex Assigned at Date Recorded Not on file documented as of this encounter Miscellaneous Notes * Telephone Encounter - Sim Spears L.P.N. - 05/07/2018 1:31 PM EDT No return call. I left msg on for Mom to return call * Telephone Encounter - Sim Spears L.P.N. - 05/07/2018 8:39 AM EDT Pt with MULLIGAN x 2 days vomit last night. Tylenol with little effect. Drinking ok. Mom doesn't want to schedule an appt , until speaks with Insurance. Mom will call [employer] to straighten out insurance. * Telephone Encounter - Cece Hernandez - 05/07/2018 8:33 AM EDT Signs/Symptoms: Headache for 2 days Duration of symptoms: 2 days Temperature: None Allergies: Review of patient's allergies indicates no known allergies. Any chronic illnesses: Patient Active Problem List Diagnosis Code ??? Development delay R62.50 ??? EDWIN (generalized anxiety disorder) F41.1 ??? Chest pain R07.9 ??? Trichotillomania F63.3 ??? Depressive disorder NOS F32.9 Is the child taking any medications: Current Outpatient Prescriptions Medication Sig Dispense Refill ??? ibuprofen (ADVIL,MOTRIN) 100 MG/5ML suspension TAKE 20 MLS BY MOUTH EVERY 6 HOURS NEEDED PAIN 0 ??? hydrocortisone 2.5 % cream Apply sparingly to rash bid 30 g 0 ??? Ondansetron HCl (ZOFRAN OR) Take by mouth. ??? Sertraline HCl (ZOLOFT OR) Take by mouth. ??? acetaminophen (TYLENOL CHILDRENS) 160 MG/5ML suspension Take 16.25 mL by mouth every 4 hours asneeded for Fever. 1 Bottle 0 No current facility-administered medications for this visit. documented in this encounter Plan of Treatment Not on file documented as of this encounter Visit Diagnoses Not on filedocumented in this encounter Care Teams Account Support Specialist Relationship Specialty Start Date End Date Lisa Moses MD PCP - General Pediatrics 12/02/17 documented as of this encounter
--- OUTSIDE RECORDS SUMMARY | 2024-09-15 11:50 | XMS_ITS | Encounter Summary ---
Author Organization [facility] Address [address] [place] [address] Care Team Providers Care Trencher Driver Name Role Phone Sylvia Rangel MD Primary Care Provider Unavaildexter e Lisa Msoes MD Primary Care Provider Sharmina ble Encounter Details Date Type Department Care Team Description 05/02/2015 [facility] Medical Records [address] [place] [address] Dominic Merrill Social History Tobacco Use Types [...] on filedocumented in this encounter Care Teams Trencher Driver Relationship Specialty Start Date End Date Sylvia Rangel MD PCP - General 02 12/01/17 Lisa Moses MD PCP - General Pediatrics 12/02/17 documented as of this encounter
== END 2024-09-15 10:42 | disposition home or self-care (01) ==
LOC: HO.LAB 10:41
PROVIDERS: PCP Internal Medicine; Visit Provider Psychiatry & Neurology Psychiatry
DX: Z79.899 Other long term (current) drug therapy (principal)
CPT/HCPCS: 36415; 85025

== ENCOUNTER 2024-09-29 08:49 | Outpatient (REF) | payer OTHER, SELFPAY ==
--- OUTSIDE RECORDS SUMMARY | 2024-09-29 09:17 | XMS_ITS | Encounter Summary ---
Author Organization [facility] Address [address] [place] [address] Care Team Providers Care Juvenile Court Judge Name Role Phone Sylvia Rangel MD Primary Care Provider Unavaildexter e Lisa Moses MD Primary Care Provider Unavaila ble Encounter Details Date Type Department Care Team Description 07/19/2010 Qa Auditor Report Medical Records [address] [place] [address] Bryce Alaniz MD Social History Tobacco Use [...] on filedocumented in this encounter Care Teams Juvenile Court Judge Relationship Specialty Start Date End Date Sylvia Rangel MD PCP - General 02 12/01/17 Lisa Moses MD PCP - General Pediatrics 12/02/17 documented as of this encounter
--- OUTSIDE RECORDS SUMMARY | 2024-09-29 09:17 | XMS_ITS | Encounter Summary ---
Author Organization [facility] Address [address] [place] [address] Care Team Providers Care Clinic Receptionist Name Role Phone Sylvia Rangel MD Primary Care Provider Unavaildexter e Lisa Moses MD Primary Care Provider Unavaila ble Encounter Details Date Type Department Care Team Description 12/27/2016 Night Triage Doc Medical Records [address] [place] [address] Abstract, Provider Social History Tobacco Use Types [...] on filedocumented in this encounter Care Teams Clinic Receptionist Relationship Specialty Start Date End Date Sylvia Rangel MD PCP - General 02 12/01/17 Lisa Moses MD PCP - General Pediatrics 12/02/17 documented as of this encounter
--- OUTSIDE RECORDS SUMMARY | 2024-09-29 09:17 | XMS_ITS | Encounter Summary ---
Author Organization [facility] Address [address] [place] [address] Care Team Providers Care Gericare Aide Name Role Phone Sylvia Rangel MD Primary Care Provider Kalyani e Lisa Moses MD Primary Care Provider Unavaila ble Encounter Details Date Type Department Care Team Description 08/10/2012 [facility] Medical Records [address] [place] [address] Nani Banegas MD Social History Tobacco Use Types Packs/Day [...] on filedocumented in this encounter Care Teams Gericare Aide Relationship Specialty Start Date End Date Sylvia Rangel MD PCP - General 02 12/01/17 Lisa Moses MD PCP - General Pediatrics 12/02/17 documented as of this encounter
--- OUTSIDE RECORDS SUMMARY | 2024-09-29 09:17 | XMS_ITS | Encounter Summary ---
Author Organization [facility] Address [address] [place] [address] Care Team Providers Care Rehabilitation Manager Name Role Phone Sylvia Rangel MD Primary Care Provider Unavaildexter e Lisa Moses MD Primary Care Provider Unavaila ble Encounter Details Date Type Department Care Team Description 01/30/2010 Metal Reed Tuner Report Medical Records [address] [place] [address] Bryce Alaniz MD Social History Tobacco Use [...] on filedocumented in this encounter Care Teams Rehabilitation Manager Relationship Specialty Start Date End Date Sylvia Rangel MD PCP - General 02 12/01/17 Lisa Moses MD PCP - General Pediatrics 12/02/17 documented as of this encounter
--- OUTSIDE RECORDS SUMMARY | 2024-09-29 09:17 | XMS_ITS | Encounter Summary ---
Author Organization [facility] Address [address] [place] [address] Care Team Providers Care Bicycle Fitter Name Role Phone Sylvia Rangel MD Primary Care Provider Kalyani e Lisa Moses MD Primary Care Provider Sharmina ble Encounter Details Date Type Department Care Team Description 08/11/2014 Night Triage Doc Medical Records [address] [place] [id number] Abstract, Provider Social History Tobacco Use Types [...] on filedocumented in this encounter Care Teams Bicycle Fitter Relationship Specialty Start Date End Date Sylvia Rangel MD PCP - General 02 12/01/17 Lisa Moses MD PCP - General Pediatrics 12/02/17 documented as of this encounter
--- OUTSIDE RECORDS SUMMARY | 2024-09-29 09:17 | XMS_ITS | Encounter Summary ---
Author Organization [facility] Address [address] [place] [address] Care Team Providers Care Marketing Project Specialist Name Role Phone Sylvia Rangel MD Primary Care Provider Unavaildexter e Lisa Moses MD Primary Care Provider Sharmina maurice Encounter Details Date Type Department Care Team Description 07/27/2014 Claim Taker Report Medical Records [address] [place] [address] Dominic Merrill Social History Tobacco Use Types [...] on filedocumented in this encounter Care Teams Marketing Project Specialist Relationship Specialty Start Date End Date Sylvia Rangel MD PCP - General 02 12/01/17 Lisa Moses MD PCP - General Pediatrics 12/02/17 documented as of this encounter
--- OUTSIDE RECORDS SUMMARY | 2024-09-29 09:17 | XMS_ITS | Encounter Summary ---
Author Organization [facility] Address [address] [place] [address] Care Team Providers Care Shipping And Receiving Name Role Phone Sylvia Rangel MD Primary Care Provider Kalyani e Lisa Moses MD Primary Care Provider Unavaila ble Encounter Details Date Type Department Care Team Description 02/11/2017 Endoscopy Nurse Report Medical Records [address] [place], [place] [id number] [place] [address] For Social History Tobacco Use Types Packs/Day [...] on filedocumented in this encounter Care Teams Shipping And Receiving Relationship Specialty Start Date End Date Sylvia Rangel MD PCP - General 02 12/01/17 Lisa Moses MD PCP - General Pediatrics 12/02/17 documented as of this encounter
--- OUTSIDE RECORDS SUMMARY | 2024-09-29 09:17 | XMS_ITS | Encounter Summary ---
Author Organization [facility] Address [address] [place] [address] Care Team Providers Care Screener Perfumer Name Role Phone Lisa Moses MD Primary Care Provider Delonte richards Encounter Details Date Type Department Care Team Description 05/11/2019 Orders Only Lab - [address] [address] Paresh Begum MD Routine general medical examination [...] Primary documented in this encounter Care Teams Screener Perfumer Relationship Specialty Start Date End Date Lisa Moess MD PCP - General Pediatrics 12/02/17 documented as of this encounter
--- OUTSIDE RECORDS SUMMARY | 2024-09-29 09:17 | XMS_ITS | Encounter Summary ---
Author Organization [facility] Address [address] [place] [address] Care Team Providers Care Farmworker Fryer Farm Name Role Phone Sylvia Rangel MD Primary Care Provider Kalyani e Lisa Moses MD Primary Care Provider Sharmina maurice Encounter Details Date Type Department Care Team Description 03/14/2014 Night Triage Doc Medical Records [address] [place] [address] Abstract, Provider Social History Tobacco Use Types [...] on filedocumented in this encounter Care Teams Farmworker Fryer Farm Relationship Specialty Start Date End Date Sylvia Rangel MD PCP - General 02 12/01/17 Lisa Moses MD PCP - General Pediatrics 12/02/17 documented as of this encounter
--- OUTSIDE RECORDS SUMMARY | 2024-09-29 09:17 | XMS_ITS | Encounter Summary ---
Author Organization [facility] Address [address] [place] [address] Care Team Providers Care Regional Business Development Manager Name Role Phone Sylvia Rangel MD Primary Care Provider Kalyani e Lisa Moses MD Primary Care Provider Sharmina maurice Encounter Details Date Type Department Care Team Description 01/27/2013 Extractor Machine Operator Report Medical Records [address] [place] [address] Dominic Merrill Social History Tobacco Use Types [...] filedocumented in this encounter Care Teams Regional Business Development Manager Relationship Specialty Start Date End Date Sylvia Rangel MD PCP - General 02 12/01/17 Lisa Moses MD PCP - General Pediatrics 12/02/17 documented as of this encounter
--- OUTSIDE RECORDS SUMMARY | 2024-09-29 09:17 | XMS_ITS | Encounter Summary ---
Author Organization [facility] Address [address] [place] [address] Care Team Providers Care Environmental Field Professional Name Role Phone Sylvia Rangel MD Primary Care Provider Kalyani e Lisa Moses MD Primary Care Provider Sharmina maurice Encounter Details Date Type Department Care Team Description 08/24/2013 Electrolysis Operator Report Medical Records [address] [place] [address] Dominic Merrill Social History Tobacco Use Types [...] on filedocumented in this encounter Care Teams Environmental Field Professional Relationship Specialty Start Date End Date Sylvia Rangel MD PCP - General 02 12/01/17 Lisa Moses MD PCP - General Pediatrics 12/02/17 documented as of this encounter
--- OUTSIDE RECORDS SUMMARY | 2024-09-29 09:18 | XMS_ITS | Encounter Summary ---
Author Organization [facility] Address [address] [place] [address] Care Team Providers Care Supercharger Mechanic Name Role Phone Sylvia Rangel MD Primary Care Provider Unavaildexter e Lisa Moses MD Primary Care Provider Unavaila ble Encounter Details Date Type Department Care Team Description 09/24/2011 Provisioning Analyst Report Medical Records [address] [place] [address] Bryce Alaniz MD Social History Tobacco Use [...] on filedocumented in this encounter Care Teams Supercharger Mechanic Relationship Specialty Start Date End Date Sylvia Rangel MD PCP - General 02 12/01/17 Lisa Moses MD PCP - General Pediatrics 12/02/17 documented as of this encounter
--- OUTSIDE RECORDS SUMMARY | 2024-09-29 09:18 | XMS_ITS | Encounter Summary ---
Author Organization [facility] Address [address] [place] [address] Care Team Providers Care Solder Deposit Operator Name Role Phone Sylvia Rangel MD Primary Care Provider Unavaildexter e Lisa Moses MD Primary Care Provider Unavaila ble Encounter Details Date Type Department Care Team Description 05/12/2015 Surveillance Specialist Report Medical Records [address] [place] [address] Dominic Merrill Social History Tobacco Use Types [...] on filedocumented in this encounter Care Teams Solder Deposit Operator Relationship Specialty Start Date End Date Sylvia Rangel MD PCP - General 02 12/01/17 Lisa Moses MD PCP - General Pediatrics 12/02/17 documented as of this encounter
--- OUTSIDE RECORDS SUMMARY | 2024-09-29 09:18 | XMS_ITS | Encounter Summary ---
Author Organization [facility] Address [address] [place] [address] Care Team Providers Care Crown Ironer Operator Name Role Phone Sylvia Rangel MD Primary Care Provider Kalyani e Lisa Moses MD Primary Care Provider Sharmina ble Encounter Details Date Type Department Care Team Description 01/11/2017 Release of Information Medical Records [address] [place] [address] Abstract, Provider Social History Tobacco Use Types [...] on filedocumented in this encounter Care Teams Crown Ironer Operator Relationship Specialty Start Date End Date Sylvia Rangel MD PCP - General 02 12/01/17 Lisa Moses MD PCP - General Pediatrics 12/02/17 documented as of this encounter
--- OUTSIDE RECORDS SUMMARY | 2024-09-29 09:18 | XMS_ITS | Encounter Summary ---
Author Organization [facility] Address [address] [place] [address] Care Team Providers Care Intake Manager Name Role Phone Sylvia Rangel MD Primary Care Provider Kalyani e Lisa Moses MD Primary Care Provider Sharmina ble Encounter Details Date Type Department Care Team Description 06/23/2016 Release of Information Medical Records [address] [place] [address] Abstract, Provider Social History Tobacco Use Types [...] on filedocumented in this encounter Care Teams Intake Manager Relationship Specialty Start Date End Date Sylvia Rangel MD PCP - General 02 12/01/17 Lisa Moses MD PCP - General Pediatrics 12/02/17 documented as of this encounter
--- OUTSIDE RECORDS SUMMARY | 2024-09-29 09:18 | XMS_ITS | Encounter Summary ---
Author Organization [facility] Address [address] [place] [address] Care Team Providers Care Gis Software Developer Name Role Phone Lisa Moses MD Primary Care Provider Delonte richards Encounter Details Date Type Department Care Team Description 10/17/2020 Bioinformatics Developer Report Medical Records [address] [place] [id number] Social History Tobacco Use Types Packs/Day Years [...] on filedocumented in this encounter Care Teams Gis Software Developer Relationship Specialty Start Date End Date Lisa Moses MD PCP - General Pediatrics 12/02/17 documented as of this encounter
--- OUTSIDE RECORDS SUMMARY | 2024-09-29 09:18 | XMS_ITS | Encounter Summary ---
Author Organization [facility] Address [address] [place] [address] Care Team Providers Care Electrician Wiring Name Role Phone Lisa Moses MD Primary Care Provider Unavaila ble Reason for Visit * Reason Comments E-prescribe Rx Request Encounter Details Date Type Department Care Team Description 01/27/2022 Refill OBGYN - [place] [address] [place] [address] Alexander Mcdonald, DO E-prescribe Rx Request Social [...] EDT WHEN WAS THE PATIENTS LAST ANNUAL MANAGER ARMY EXAM? 01/12/21 office visit Does patient have [...] the end of the day? NO Payor: [employer] / Plan: [employer] [place] / Product Type: MEDICAID RISK documented in this encounter Plan of Treatment Not on file documented as of this encounter Visit Diagnoses Not on filedocumented in this encounter Care Teams Electrician Wiring Relationship Specialty Start Date End Date Lisa Moses MD PCP - General Pediatrics 12/02/17 documented as of this encounter
--- OUTSIDE RECORDS SUMMARY | 2024-09-29 09:18 | XMS_ITS | Encounter Summary ---
Author Organization [facility] Address [address] [place] [address] Care Team Providers Care Middle School Art Teacher Name Role Phone Sylvia Rangel MD Primary Care Provider Unavaildexter e Lisa Moses MD Primary Care Provider Unavaila ble Encounter Details Date Type Department Care Team Description 08/31/2016 Night Triage Doc Medical Records [address] [place] [address] Abstract, Provider Social History Tobacco Use Types [...] on filedocumented in this encounter Care Teams Middle School Art Teacher Relationship Specialty Start Date End Date Sylvia Rangel MD PCP - General 02 12/01/17 Lisa Moses MD PCP - General Pediatrics 12/02/17 documented as of this encounter
--- OUTSIDE RECORDS SUMMARY | 2024-09-29 09:18 | XMS_ITS | Encounter Summary ---
Author Organization [facility] Address [address] [place] [address] Care Team Providers Care Consolidation Accountant Name Role Phone Sylvia Rangel MD Primary Care Provider Kalyani e Lisa Moses MD Primary Care Provider Sharmina maurice Encounter Details Date Type Department Care Team Description 12/17/2011 Night Triage Doc Medical Records [address] [place] [address] Abstract, Provider Social History Tobacco Use Types [...] on filedocumented in this encounter Care Teams Consolidation Accountant Relationship Specialty Start Date End Date Sylvia Rangel MD PCP - General 02 12/01/17 Lisa Moses MD PCP - General Pediatrics 12/02/17 documented as of this encounter
--- OUTSIDE RECORDS SUMMARY | 2024-09-29 09:18 | XMS_ITS | Encounter Summary ---
Author Organization [facility] Address [address] [place] [address] Care Team Providers Care Carbon Cleaner Name Role Phone Lisa Moses MD Primary Care Provider Unavaila ble Reason for Visit * Reason Onset Date Comments Headache 06/12/2018 Encounter Details Date Type Department Care Team Description 06/12/2018 Telephone Pediatrics - [address] [address] Lisa Moses MD Headache Social History Tobacco Use Types Packs/Day Years Used Date Smoking Tobacco: Never Smokeless Tobacco: Never Alcohol Use Standard Drinks/Week Comments No 0 (1 standard drink = 0.6 oz pur e alcohol) Sex Assigned at Date Recorded Not on file documented as of this encounter Miscellaneous Notes * Telephone Encounter - Olya Ramos L.P.N. - 06/12/2018 8:58 AM EDT [facility] - Telephone Triage Documentation CHIEF COMPLAINT:Mom states child has been complaining of a headache , feeling nauseated and has a sore throat, hurts to swallow, no fever. PCP: Lisa Moses LMP/EDC: Current Outpatient Prescriptions Medication Sig Dispense Refill ??? ondansetron (ZOFRAN ODT) 4 MG disintegrating tablet Take 1 Tab by mouth every 8 hours as neededfor Nausea for up to 6 doses. 6 Tab 0 ??? ibuprofen (ADVIL,MOTRIN) 100 MG/5ML suspension TAKE 20 MLS BY MOUTH EVERY 6 HOURS NEEDED PAIN 0 ??? hydrocortisone 2.5 % cream Apply sparingly to rash bid 30 g 0 ??? Sertraline HCl (ZOLOFT OR) Take by mouth. No current facility-administered medications for this visit. Allergies: Review of patient's allergies indicates no known allergies. Patient Active Problem List Diagnosis Code ??? Development delay R62.50 ??? EDWIN (generalized anxiety disorder) F41.1 ??? Chest pain R07.9 ??? Trichotillomania F63.3 ??? Depressive disorder NOS F32.9 DISPOSITION:Appointment given REFERENCE:Pediatric's Telephone Protocols by Augusto/Jocelyn CALLER UNDERSTANDS & AGREES WITH ADVICE:YES * Telephone Encounter - Khloe Conley - 06/12/2018 8:34 AM EDT Signs/Symptoms: Mom calling stating child has a headache and nauses. Duration of symptoms: na Temperature: na Allergies: Review of patient's allergies indicates no known allergies. Any chronic illnesses: Patient Active Problem List Diagnosis Code ??? Development delay R62.50 ??? EDWIN (generalized anxiety disorder) F41.1 ??? Chest pain R07.9 ??? Trichotillomania F63.3 ??? Depressive disorder NOS F32.9 Is the child taking any medications: Current Outpatient Prescriptions Medication Sig Dispense Refill ??? ondansetron (ZOFRAN ODT) 4 MG disintegrating tablet Take 1 Tab by mouth every 8 hours as neededfor Nausea for up to 6 doses. 6 Tab 0 ??? ibuprofen (ADVIL,MOTRIN) 100 MG/5ML suspension TAKE 20 MLS BY MOUTH EVERY 6 HOURS NEEDED PAIN 0 ??? hydrocortisone 2.5 % cream Apply sparingly to rash bid 30 g 0 ??? Sertraline HCl (ZOLOFT OR) Take by mouth. No current facility-administered medications for this visit. documented in this encounter Plan of Treatment Not on file documented as of this encounter Visit Diagnoses Not on filedocumented in this encounter Care Teams Carbon Cleaner Relationship Specialty Start Date End Date Lisa Moses MD PCP - General Pediatrics 12/02/17 documented as of this encounter
--- OUTSIDE RECORDS SUMMARY | 2024-09-29 09:18 | XMS_ITS | Encounter Summary ---
Author Organization [facility] Address [address] [place] [address] Care Team Providers Care Cross Country Truck Driver Name Role Phone Lisa Moses MD Primary Care Provider Delonte richards Encounter Details Date Type Department Care Team Description 01/05/2021 Release of Information Medical Records [address] [place] [address] Abstract, Provider Social History Tobacco Use Types Packs/Day Years Used Date Smoking Tobacco: Never Smokeless Tobacco: Never Alcohol Use Standard Drinks/Week Comments No 0 (1 standard drink = 0.6 oz pur e alcohol) Sex Assigned at Date Recorded Not on file COVID-19 Exposure Response Date Recorded In the last month, have you been in contact with someone who was confirmed or suspected to have Coronavirus / COVID-19? No / Unsure 01/05/2021 4:42 PM EDT documented as of this encounter Plan of Treatment Not on file documented as of this encounter Visit Diagnoses Not on filedocumented in this encounter Care Teams Cross Country Truck Driver Relationship Specialty Start Date End Date Lisa Moses MD PCP - General Pediatrics 12/02/17 documented as of this encounter
--- OUTSIDE RECORDS SUMMARY | 2024-09-29 09:18 | XMS_ITS | Encounter Summary ---
Author Organization [facility] Address [address] [place] [address] Care Team Providers Care Grape Cutter Name Role Phone Sylvia Rangel MD Primary Care Provider Kalyani e Lisa Msoes MD Primary Care Provider Sharmina maurice Encounter Details Date Type Department Care Team Description 11/13/2011 Floor Assembler Report Medical Records [address] [place] [address] Dominic Merrill Social History Tobacco Use Types [...] on filedocumented in this encounter Care Teams Grape Cutter Relationship Specialty Start Date End Date Sylvia Rangel MD PCP - General 02 12/01/17 Lisa Moses MD PCP - General Pediatrics 12/02/17 documented as of this encounter
--- OUTSIDE RECORDS SUMMARY | 2024-09-29 09:18 | XMS_ITS | Encounter Summary ---
Author Organization [facility] Address [address] [place] [address] Care Team Providers Care Soa Integration Architect Name Role Phone Sylvia Rangel MD Primary Care Provider Unavaildexter e Lisa Moses MD Primary Care Provider Unavaila ble Encounter Details Date Type Department Care Team Description 07/21/2015 Court Worker Report Medical Records [address] [place] [address] Dominic Merrill Social History Tobacco Use Types [...] on filedocumented in this encounter Care Teams Soa Integration Architect Relationship Specialty Start Date End Date Sylvia Rangel MD PCP - General 02 12/01/17 Lisa Moses MD PCP - General Pediatrics 12/02/17 documented as of this encounter
--- OUTSIDE RECORDS SUMMARY | 2024-09-29 09:19 | XMS_ITS | Encounter Summary ---
Author Organization [facility] Address [address] [place] [address] Care Team Providers Care Train Caller Name Role Phone Sylvia Rangel MD Primary Care Provider Kalyani e Lisa Moses MD Primary Care Provider Sharmina ble Encounter Details Date Type Department Care Team Description 05/03/2015 [facility] Medical Records [address] [place] [address] Social History Tobacco Use Types Packs/Day Years [...] on filedocumented in this encounter Care Teams Train Caller Relationship Specialty Start Date End Date Sylvia Rangel MD PCP - General 02 12/01/17 Lisa Moses MD PCP - General Pediatrics 12/02/17 documented as of this encounter
--- OUTSIDE RECORDS SUMMARY | 2024-09-29 09:19 | XMS_ITS | Encounter Summary ---
Author Organization [facility] Address [address] [place] [address] Care Team Providers Care Music Publicist Name Role Phone Lisa Moses MD Primary Care Provider Unavaila ble Reason for Visit * Reason Onset Date Comments School note 06/23/2020 Encounter Details Date Type Department Care Team Description 06/23/2020 Telephone Pediatrics - [address] [address] Angelina Call RNCPNP School note Social History Tobacco Use Types Packs/Day Years [...] have Coronavirus / COVID-19? No / Unsure 06/10/2020 11:09 AM EDT documented as of this encounter Miscellaneous Notes * Telephone Encounter - Jie Sathya - 06/23/2020 8:47 AM EST Mom is requesting a school note as child was absent from school on 06/23/20 due to migraine. Will call when returns documented in this encounter Plan of Treatment Not on file documented as of this encounter Visit Diagnoses Not on filedocumented in this encounter Care Teams Music Publicist Relationship Specialty Start Date End Date Lisa Moses MD PCP - General Pediatrics 12/02/17 documented as of this encounter
--- OUTSIDE RECORDS SUMMARY | 2024-09-29 09:19 | XMS_ITS | Encounter Summary ---
Author Organization [facility] Address [address] [place] [address] Care Team Providers Care Copy Room Technician Name Role Phone Lisa Moses MD Primary Care Provider Delonte richards Encounter Details Date Type Department Care Team Description 05/10/2020 Industrial Health And Safety Professor Report Medical Records [address] [place] [address] Nghia Caputo Social History Tobacco Use Types [...] on filedocumented in this encounter Care Teams Copy Room Technician Relationship Specialty Start Date End Date Lisa Moses MD PCP - General Pediatrics 12/02/17 documented as of this encounter
--- OUTSIDE RECORDS SUMMARY | 2024-09-29 09:19 | XMS_ITS | Encounter Summary ---
Author Organization [facility] Address [address] [place] [address] Care Team Providers Care Boiler Control Technician Name Role Phone Lisa Moses MD Primary Care Provider Unavaila ble Reason for Referral * EXTERNAL (Routine) - Authorized/Booked Specialty Diagnoses / Procedures Referred By Sánchez vogel Referred To Contact Neurology Procedures REFERRAL TO NEUROLOGY Lisa Moses MD [address] [place] [id number] [place] [address] [facility] [address], [address] [place] [address] Referral ID Status Reason Start Date Expiration Date V isits Requested Visits Authorized SEE NOTE Authorized/B ooked 06/11/2019 09/12/2019 1 1 Reason for Visit * Reason Onset Date Comments Positive Printer Operator Feedback 06/11/2019 Dr. Merrill Encounter Details Date Type Department Care Team Description 06/11/2019 Telephone Adult Medicine - [place] [address] [place] [address] Lisa Moses MD Positive Printer Operator Feedback (Dr. Merrill) Social History Tobacco Use [...] on filedocumented in this encounter Care Teams Boiler Control Technician Relationship Specialty Start Date End Date Lisa Moses MD PCP - General Pediatrics 12/02/17 documented as of this encounter
--- OUTSIDE RECORDS SUMMARY | 2024-09-29 09:19 | XMS_ITS | Encounter Summary ---
Author Organization [facility] Address [address] [place] [address] Care Team Providers Care Bean Picker Machine Operator Name Role Phone Lisa Moses MD Primary Care Provider Delonte richards Encounter Details Date Type Department Care Team Description 07/30/2019 Bulk Sugar Handler Report Medical Records [address] [place] [address] [facility] [address] [facility] [place] [address] Social History Tobacco Use Types Packs/Day Years [...] on filedocumented in this encounter Care Teams Bean Picker Machine Operator Relationship Specialty Start Date End Date Lisa Moses MD PCP - General Pediatrics 12/02/17 documented as of this encounter
--- OUTSIDE RECORDS SUMMARY | 2024-09-29 09:19 | XMS_ITS | Encounter Summary ---
Author Organization [facility] Address [address] [place] [address] Care Team Providers Care Kiln Remover Name Role Phone Lisa Moses MD Primary Care Provider Delonte richards Encounter Details Date Type Department Care Team Description 05/26/2020 Release of Information Medical Records [address] [place] [address] Abstract, Provider Social History Tobacco Use Types [...] on filedocumented in this encounter Care Teams Kiln Remover Relationship Specialty Start Date End Date Lisa Moses MD PCP - General Pediatrics 12/02/17 documented as of this encounter
--- OUTSIDE RECORDS SUMMARY | 2024-09-29 09:19 | XMS_ITS | Encounter Summary ---
Author Organization [facility] Address [address] [place] [address] Care Team Providers Care Helpdesk Specialist Name Role Phone Sylvia Rangel MD Primary Care Provider Unavaildexter e Lisa Moses MD Primary Care Provider Sharmina ble Encounter Details Date Type Department Care Team Description 05/02/2015 [facility] Medical Records [address] [place] [address] Dominic Merrill Social History Tobacco Use Types [...] on filedocumented in this encounter Care Teams Helpdesk Specialist Relationship Specialty Start Date End Date Sylvia Rangel MD PCP - General 02 12/01/17 Lisa Moses MD PCP - General Pediatrics 12/02/17 documented as of this encounter
--- OUTSIDE RECORDS SUMMARY | 2024-09-29 09:19 | XMS_ITS | Encounter Summary ---
Author Organization [facility] Address [address] [place] [address] Care Team Providers Care Paper Cutter Operator Name Role Phone Lisa Moses MD Primary Care Provider Unavaila ble Reason for Visit * Reason Onset Date Comments Form 07/08/2019 Referral Encounter Details Date Type Department Care Team Description 07/08/2019 Telephone Pediatrics - [address] [address] Angelina Call RNCPNP Form (Referral) Social History Tobacco Use Types Packs/Day Years Used Date Smoking Tobacco: Never Smokeless Tobacco: Never Alcohol Use Standard Drinks/Week Comments No 0 (1 standard drink = 0.6 oz pur e alcohol) Sex Assigned at Date Recorded Not on file documented as of this encounter Miscellaneous Notes * Telephone Encounter - Jie Mcdonnell - 07/08/2019 4:05 PM EST Pediatric Form Request Type of form: Form from Referrals placed in Angelina's folder for completion Date of last physical: 03/17/19 Does patient want: Inter Office back to Referrals documented in this encounter Plan of Treatment Not on file documented as of this encounter Visit Diagnoses Not on filedocumented in this encounter Care Teams Paper Cutter Operator Relationship Specialty Start Date End Date Lisa Moses MD PCP - General Pediatrics 12/02/17 documented as of this encounter
--- OUTSIDE RECORDS SUMMARY | 2024-09-29 09:19 | XMS_ITS | Encounter Summary ---
Author Organization [facility] Address [address] [place] [address] Care Team Providers Care Marketing Assistant Name Role Phone Lisa Moses MD Primary Care Provider Delonte richards Encounter Details Date Type Department Care Team Description 07/09/2019 Search Engine Marketing Specialist Report Medical Records [address] [place] [address] Marya Mckeon MD Social History Tobacco Use [...] filedocumented in this encounter Care Teams Marketing Assistant Relationship Specialty Start Date End Date Lisa Moses MD PCP - General Pediatrics 12/02/17 documented as of this encounter
--- OUTSIDE RECORDS SUMMARY | 2024-09-29 09:19 | XMS_ITS | Encounter Summary ---
Author Organization [facility] Address [address] [place] [address] Care Team Providers Care Cctv Technician Name Role Phone Sylvia Rangel MD Primary Care Provider Lisa Yu MD Primary Care Provider Sharmina ble Reason for Visit * Reason Onset Date Comments DCF 04/15/2015 Encounter Details Date Type Department Care Team Description 04/15/2015 Telephone Pediatrics - [address] [address] Sylvia Rangel MD [facility] Social History Tobacco Use Types Packs/Day Years [...] - 04/18/2015 9:56 AM EDT Cindy from [facility] calling back on 3 patients * Telephone Encounter - Mckenna Borges L.P.N. - 04/18/2015 9:29 AM EDT Left message to call back. * Telephone Encounter - Hortensia Keys R.N. - 04/15/2015 3:55 PM EDT Left message * Telephone Encounter - Shannan Amaya - 04/15/2015 3:16 PM EDT Name and title of caller: Whit from [facility] 53- a on file : 2002 Age: 14 yr. Is this an active 51A case: Yes. Case is currently active. Message forwarded to nurse to provide information. Message forwarded to nurse for follow up documented in this encounter Plan of Treatment Not on file documented as of this encounter Visit Diagnoses Not on filedocumented in this encounter Care Teams Cctv Technician Relationship Specialty Start Date End Date Sylvia Rangel MD PCP - General 02 12/01/17 Lisa Moses MD PCP - General Pediatrics 12/02/17 documented as of this encounter
--- OUTSIDE RECORDS SUMMARY | 2024-09-29 09:19 | XMS_ITS | Encounter Summary ---
Author Organization [facility] Address [address] [place] [address] Care Team Providers Care Analytic Programmer Name Role Phone Lisa Moses MD Primary Care Provider Unavaila ble Reason for Visit * Reason Onset Date Comments Prep Person Feedback 07/09/2019 Pedi Gastro Encounter Details Date Type Department Care Team Description 07/09/2019 Telephone Pediatrics - [address] [address] Lisa Moses MD Prep Person Feedback (Pedi Gastro) Social History Tobacco Use Types Packs/Day Years Used Date Smoking Tobacco: Never Smokeless Tobacco: Never Alcohol Use Standard Drinks/Week Comments No 0 (1 standard drink = 0.6 oz pur e alcohol) Sex Assigned at Date Recorded Not on file documented as of this encounter Miscellaneous Notes * Telephone Encounter - Lisa Moses MD - 07/09/2019 12:05 PM EST I think we can have her put on the wait list and hold off on this for now. * Telephone Encounter - Ivelisse Ratliff - 07/09/2019 11:59 AM EST At this time patients are being placed on a waitlist as there are not appointments available, thereis no way for me to be able to determine if the patient will be seen within 2 months. * Telephone Encounter - Lisa Moses MD - 07/09/2019 11:48 AM EST It is OK to see them within 2 months. Will that be possible? * Telephone Encounter - Ivelisse Ratliff - 07/09/2019 11:[address] Moses, You referred the patient to see pediatric gastro for chronic vomiting within 2-3 weeks. [facility] gastro does not have any appointments available as they are working on releasing the providers' schedules. A message was sent to clinical staff for booking and they are unable to find an opening within the appropriate timeframe. They have advised that the ordering phyisician calls the front end software engineer doctor (Dr Peguero) to discuss the urgency of the referral and determine if he is able to see the patient.Please call [facility] at [phone]. Thank you Ivelisse Referrals Clinical Reviewer documented in this encounter Plan of Treatment Not on file documented as of this encounter Visit Diagnoses Not on filedocumented in this encounter Care Teams Analytic Programmer Relationship Specialty Start Date End Date Lisa Moses MD PCP - General Pediatrics 12/02/17 documented as of this encounter
--- OUTSIDE RECORDS SUMMARY | 2024-09-29 09:19 | XMS_ITS | Encounter Summary ---
Author Organization [facility] Address [address] [place] [address] Care Team Providers Care Barrel Finisher Name Role Phone Lisa Moses MD Primary Care Provider Delonte richards Encounter Details Date Type Department Care Team Description 09/11/2019 Release of Information Medical Records [address] [place] [address] Abstract, Provider Social History Tobacco Use Types [...] on filedocumented in this encounter Care Teams Barrel Finisher Relationship Specialty Start Date End Date Lisa Moses MD PCP - General Pediatrics 12/02/17 documented as of this encounter
--- OUTSIDE RECORDS SUMMARY | 2024-09-29 09:19 | XMS_ITS | Encounter Summary ---
Author Organization [facility] Address [address] [place] [address] Care Team Providers Care Silo Worker Name Role Phone Lisa Moses MD Primary Care Provider Unavaila ble Reason for Visit * Reason Onset Date Comments Development Mgr Feedback 07/07/2019 [facility] Encounter Details Date Type Department Care Team Description 07/07/2019 Telephone Pediatrics - [address] [address] Angelina Call RNCPNP Development Mgr Feedback ([facility]) Social History Tobacco Use Types Packs/Day Years Used Date Smoking Tobacco: Never Smokeless Tobacco: Never Alcohol Use Standard Drinks/Week Comments No 0 (1 standard drink = 0.6 oz pur e alcohol) Sex Assigned at Date Recorded Not on file documented as of this encounter Miscellaneous Notes * Telephone Encounter - Kami Fox - 07/07/2019 2:07 PM EST COUNTS INCLUDE [facility] BEDS AT THE [facility]- order and [facility] neuropsych testing form inter officed to [facility] pool. Once form is completed and REHABILITATION COUNSELOR receives it back the completed form will be faxed to Genevieve at [facility].Genevieve will contact the patient with appointment information. Kami Tomas Referrals Department documented in this encounter Plan of Treatment Not on file documented as of this encounter Visit Diagnoses Not on filedocumented in this encounter Care Teams Silo Worker Relationship Specialty Start Date End Date Lisa Moses MD PCP - General Pediatrics 12/02/17 documented as of this encounter
--- OUTSIDE RECORDS SUMMARY | 2024-09-29 09:19 | XMS_ITS | Encounter Summary ---
Author Organization [facility] Address [address] [place] [address] Care Team Providers Care Deli Clerk Name Role Phone Lisa Moses MD Primary Care Provider Unavaila ble Reason for Referral * EXTERNAL (Routine) - Authorized/Booked Specialty Diagnoses / Procedures Referred By Sánchez vogel Referred To Contact Nutrition Diagnoses Obesity due to excess calories, unspecified classification, unspecified whether serious comorbidity present Procedures REFERRAL TO PEDIATRIC NUTRITION Angelina Call RNCPNP [address] [place] [address] External Nutrition Referral ID Status Reason Start Date Expiration Date V isits Requested Visits Authorized SEE NOTE Authorized/B ooked 10/22/2019 01/23/2020 1 1 Reason for Visit * Reason Onset Date Comments REFERRAL 10/22/2019 Encounter Details Date Type Department Care Team Description 10/22/2019 Telephone Pediatrics - [address] [address] Lisa Moses MD REFERRAL Social History Tobacco [...] Primary documented in this encounter Care Teams Deli Clerk Relationship Specialty Start Date End Date Lisa Moses MD PCP - General Pediatrics 12/02/17 documented as of this encounter
--- OUTSIDE RECORDS SUMMARY | 2024-09-29 09:19 | XMS_ITS | Encounter Summary ---
Author Organization [facility] Address [address] [place] [address] Care Team Providers Care Blacksmith Hammer Operator Name Role Phone Lisa Moses MD Primary Care Provider Delonte richards Encounter Details Date Type Department Care Team Description 07/24/2019 [facility] Medical Records [address] [place] [address] Social History Tobacco Use Types Packs/Day Years [...] on filedocumented in this encounter Care Teams Blacksmith Hammer Operator Relationship Specialty Start Date End Date Lisa Moses MD PCP - General Pediatrics 12/02/17 documented as of this encounter
[2024-09-29 09:29] LABS: MANUAL DIFF FLAG NO
[2024-09-29 11:26] LABS: Basophils Percent Auto 0.4 % (0-2); Eosinophils Absolute Auto 0.1 X10*3/uL (0.0-0.4); Eosinophils Percent Auto 1.4 % (0-4); Hematocrit 43.9 % (37.0-47.0); Hemoglobin 14.3 g/dl (12.0-16.0); Imm Gran Abs Auto 0.02 X10*3/uL (0.00-0.03); Imm Gran Pct Auto 0.3 % (0.0-0.4); Lymphocytes Absolute Auto 1.8 X10*3/uL (1.2-4.9); Lymphocytes Percent Auto 22.8 % (20-40); Mean Corpuscular HGB Conc 32.6 g/dl (31.0-35.0); Mean Corpuscular Hemoglobin 26.8 pg (27.0-33.0); Mean Corpuscular Volume 82.4 fL (80.0-98.0); Monocytes Absolute Auto 0.6 X10*3/uL (0.1-1.2); Monocytes Percent Auto 7.2 % (2-11); Neutrophils Absolute Auto 5.4 x10*3/uL (2.0-8.3); Neutrophils Percent Auto 67.9 % (45-73); Platelet Count 320 X10*3/uL (160-400); Red Blood Count 5.33 X10*6/uL (4.20-5.50); Red Cell Distribution Width 14.8 % (11.0-16.0); White Blood Count 7.9 X10*3/uL (4.8-10.8)
== END 2024-09-29 08:50 | disposition home or self-care (01) ==
LOC: HO.LABR 08:49
PROVIDERS: PCP Internal Medicine; Visit Provider Psychiatry & Neurology Psychiatry
DX: Z79.899 Other long term (current) drug therapy (principal)
CPT/HCPCS: 36415; 85025

== ENCOUNTER 2024-10-13 12:04 | Outpatient (REF) | payer OTHER, SELFPAY ==
[2024-10-13 12:24] LABS: MANUAL DIFF FLAG NO
[2024-10-13 12:29] LABS: Basophils Percent Auto 0.4 % (0-2); Eosinophils Absolute Auto 0.1 X10*3/uL (0.0-0.4); Eosinophils Percent Auto 1.3 % (0-4); Hematocrit 38.5 % (37.0-47.0); Hemoglobin 12.8 g/dl (12.0-16.0); Imm Gran Abs Auto 0.03 X10*3/uL (0.00-0.03); Imm Gran Pct Auto 0.4 % (0.0-0.4); Lymphocytes Absolute Auto 1.9 X10*3/uL (1.2-4.9); Lymphocytes Percent Auto 22.6 % (20-40); Mean Corpuscular HGB Conc 33.2 g/dl (31.0-35.0); Mean Corpuscular Hemoglobin 27.5 pg (27.0-33.0); Mean Corpuscular Volume 82.8 fL (80.0-98.0); Mean Platelet Volume 9.2 fL (9.4-12.3); Monocytes Absolute Auto 0.5 X10*3/uL (0.1-1.2); Monocytes Percent Auto 5.7 % (2-11); Neutrophils Absolute Auto 5.8 x10*3/uL (2.0-8.3); Neutrophils Percent Auto 69.6 % (45-73); Platelet Count 382 X10*3/uL (160-400); Red Blood Count 4.65 X10*6/uL (4.20-5.50); Red Cell Distribution Width 15.1 % (11.0-16.0); White Blood Count 8.3 X10*3/uL (4.8-10.8)
--- OUTSIDE RECORDS SUMMARY | 2024-10-13 14:44 | XMS_ITS | Encounter Summary ---
Author Organization [facility] Address [address] [place] [address] Care Team Providers Care Envelope Stamping Machine Operator Name Role Phone Sylvia Rangel MD Primary Care Provider Unavaildexter e Lisa Moses MD Primary Care Provider Unavaila ble Encounter Details Date Type Department Care Team Description 01/30/2010 Scratch Polisher Report Medical Records [address] [place] [address] Bryce Alaniz MD Social History Tobacco Use [...] on filedocumented in this encounter Care Teams Envelope Stamping Machine Operator Relationship Specialty Start Date End Date Sylvia Rangel MD PCP - General 02 12/01/17 Lisa Moses MD PCP - General Pediatrics 12/02/17 documented as of this encounter
--- OUTSIDE RECORDS SUMMARY | 2024-10-13 14:44 | XMS_ITS | Encounter Summary ---
Author Organization [facility] Address [address] [place] [address] Care Team Providers Care Wire Frame Maker Name Role Phone Sylvia Rangel MD Primary Care Provider Kalyani e Lisa Moses MD Primary Care Provider Sharmina ble Encounter Details Date Type Department Care Team Description 08/11/2014 Night Triage Doc Medical Records [address] [place] [address] Abstract, Provider Social History Tobacco Use Types [...] on filedocumented in this encounter Care Teams Wire Frame Maker Relationship Specialty Start Date End Date Sylvia Rangel MD PCP - General 02 12/01/17 Lisa Moses MD PCP - General Pediatrics 12/02/17 documented as of this encounter
--- OUTSIDE RECORDS SUMMARY | 2024-10-13 14:44 | XMS_ITS | Encounter Summary ---
Author Organization [facility] Address [address] [place] [address] Care Team Providers Care Billing Associate Name Role Phone Sylvia Rangel MD Primary Care Provider Unavaildexter e Lisa Moses MD Primary Care Provider Unavaila ble Encounter Details Date Type Department Care Team Description 02/28/2017 Hearing Aid Assistant Report Medical Records [address] [place], [place] [id number] [place] [address] For Social History Tobacco Use Types Packs/Day [...] on filedocumented in this encounter Care Teams Billing Associate Relationship Specialty Start Date End Date Sylvia Rangel MD PCP - General 02 12/01/17 Lisa Moses MD PCP - General Pediatrics 12/02/17 documented as of this encounter
--- OUTSIDE RECORDS SUMMARY | 2024-10-13 14:44 | XMS_ITS | Encounter Summary ---
Author Organization [facility] Address [address] [place] [address] Care Team Providers Care Building Rental Superintendent Name Role Phone Sylvia Rangel MD Primary Care Provider Unavaildexter e Lisa Moses MD Primary Care Provider Unavaila ble Encounter Details Date Type Department Care Team Description 08/01/2011 Intensive Care Unit Nurse Report Medical Records [address] [place] [address] Chandana Bustamante MD Social History Tobacco Use Types Packs/Day [...] on filedocumented in this encounter Care Teams Building Rental Superintendent Relationship Specialty Start Date End Date Sylvia Rangel MD PCP - General 02 12/01/17 Lisa Moses MD PCP - General Pediatrics 12/02/17 documented as of this encounter
--- OUTSIDE RECORDS SUMMARY | 2024-10-13 14:44 | XMS_ITS | Encounter Summary ---
Author Organization [facility] Address [address] [place] [address] Care Team Providers Care Photographer Name Role Phone Sylvia Rangel MD Primary Care Provider Kalyani e Lisa Moses MD Primary Care Provider Sharmina maurice Encounter Details Date Type Department Care Team Description 08/24/2013 Religious Educator Report Medical Records [address] [place] [address] Dominic Merrill Social History Tobacco Use Types [...] on filedocumented in this encounter Care Teams Photographer Relationship Specialty Start Date End Date Sylvia Rangel MD PCP - General 02 12/01/17 Lisa Moses MD PCP - General Pediatrics 12/02/17 documented as of this encounter
--- OUTSIDE RECORDS SUMMARY | 2024-10-13 14:45 | XMS_ITS | Encounter Summary ---
Author Organization [facility] Address [address] [place] [address] Care Team Providers Care Meat Butcher Name Role Phone Sylvia Rangel MD Primary Care Provider Lisa Yu MD Primary Care Provider Sharmina ble Reason for Visit * Reason Onset Date Comments DCF 04/15/2015 Encounter Details Date Type Department Care Team Description 04/15/2015 Telephone Pediatrics - [address] [address] Sylvia Rangel MD [facility] Social History Tobacco Use Types Packs/Day Years [...] - 04/18/2015 9:56 AM EDT Cindy from [facility] calling back on 3 patients * Telephone Encounter - Mckenna Borges L.P.N. - 04/18/2015 9:29 AM EDT Left message to call back. * Telephone Encounter - Hortensia Keys R.N. - 04/15/2015 3:55 PM EDT Left message * Telephone Encounter - Shannan Amaya - 04/15/2015 3:16 PM EDT Name and title of caller: Whit from [facility]- a on file : 2002 Age: 14 yr. Is this an active 51A case: Yes. Case is currently active. Message forwarded to nurse to provide information. Message forwarded to nurse for follow up documented in this encounter Plan of Treatment Not on file documented as of this encounter Visit Diagnoses Not on filedocumented in this encounter Care Teams Meat Butcher Relationship Specialty Start Date End Date Sylvia Rangel MD PCP - General 02 12/01/17 Lisa Moses MD PCP - General Pediatrics 12/02/17 documented as of this encounter
--- OUTSIDE RECORDS SUMMARY | 2024-10-13 14:45 | XMS_ITS | Encounter Summary ---
Author Organization [facility] Address [address] [place] [address] Care Team Providers Care Nutrition Services Aide Name Role Phone Sylvia Rangel MD Primary Care Provider Unavaildexter e Lisa Moses MD Primary Care Provider Unavaila ble Encounter Details Date Type Department Care Team Description 10/08/2016 Career Services Representative Report Medical Records [address] [place] [address] Marcia Gaffney Social History Tobacco Use Types Packs/Day Years [...] on filedocumented in this encounter Care Teams Nutrition Services Aide Relationship Specialty Start Date End Date Sylvia Rangel MD PCP - General 02 12/01/17 Lisa Moses MD PCP - General Pediatrics 12/02/17 documented as of this encounter
--- OUTSIDE RECORDS SUMMARY | 2024-10-13 14:45 | XMS_ITS | Encounter Summary ---
Author Organization [facility] Address [address] [place] [address] Care Team Providers Care Carbide Operator Name Role Phone Sylvia Rangel MD Primary Care Provider Kalyani e Lisa Moses MD Primary Care Provider Sharmina maurice Encounter Details Date Type Department Care Team Description 11/13/2011 Booking Manager Report Medical Records [address] [place] [address] Dominic Merrill Social History Tobacco Use Types [...] on filedocumented in this encounter Care Teams Carbide Operator Relationship Specialty Start Date End Date Sylvia Rangel MD PCP - General 02 12/01/17 Lisa Moses MD PCP - General Pediatrics 12/02/17 documented as of this encounter
--- OUTSIDE RECORDS SUMMARY | 2024-10-13 14:45 | XMS_ITS | Encounter Summary ---
Author Organization [facility] Address [address] [place] [address] Care Team Providers Care Manager Clinical Research Name Role Phone Sylvia Rangel MD Primary Care Provider Unavaildexter e Lisa Moses MD Primary Care Provider Unavaila ble Encounter Details Date Type Department Care Team Description 06/28/2015 Senior Abap Developer Report Medical Records [address] [place] [address] Dominic Merrill Social History Tobacco Use Types [...] on filedocumented in this encounter Care Teams Manager Clinical Research Relationship Specialty Start Date End Date Sylvia Rangel MD PCP - General 02 12/01/17 Lisa Moses MD PCP - General Pediatrics 12/02/17 documented as of this encounter
--- OUTSIDE RECORDS SUMMARY | 2024-10-13 14:45 | XMS_ITS | Encounter Summary ---
Author Organization [facility] Address [address] [place] [address] Care Team Providers Care Service Promoter Salesperson Name Role Phone Sylvia Rangel MD Primary Care Provider Unavaildexter e Lisa Moses MD Primary Care Provider Unavaila ble Encounter Details Date Type Department Care Team Description 12/27/2016 Night Triage Doc Medical Records [address] [place] [id number] Abstract, Provider Social History Tobacco Use Types [...] on filedocumented in this encounter Care Teams Service Promoter Salesperson Relationship Specialty Start Date End Date Sylvia Rangel MD PCP - General 02 12/01/17 Lisa Moses MD PCP - General Pediatrics 12/02/17 documented as of this encounter
--- OUTSIDE RECORDS SUMMARY | 2024-10-13 14:45 | XMS_ITS | Encounter Summary ---
Author Organization [facility] Address [address] [place] [address] Care Team Providers Care Ash Conveyor Operator Name Role Phone Lisa Moses MD Primary Care Provider Delonte richards Encounter Details Date Type Department Care Team Description 09/10/2019 Safety Deposit Boxes Custodian Report Medical Records [address] [place] [address] Marya Mckeon MD Social History Tobacco Use [...] on filedocumented in this encounter Care Teams Ash Conveyor Operator Relationship Specialty Start Date End Date Lisa Moses MD PCP - General Pediatrics 12/02/17 documented as of this encounter
--- OUTSIDE RECORDS SUMMARY | 2024-10-13 14:45 | XMS_ITS | Encounter Summary ---
Author Organization [facility] Address [address] [place] [address] Care Team Providers Care Cash Crop Farmer Name Role Phone Lisa Moses MD Primary Care Provider Unavaila ble Reason for Visit * Reason Onset Date Comments nausea 10/13/2020 Encounter Details Date Type Department Care Team Description 10/13/2020 Telephone Pediatrics - [address] [address] Lisa Moses MD nausea Social History Tobacco Use Types Packs/Day Years Used Date Smoking Tobacco: Never Smokeless Tobacco: Never Alcohol Use Standard Drinks/Week Comments No 0 (1 standard drink = 0.6 oz pur e alcohol) Sex Assigned at Date Recorded Not on file documented as of this encounter Miscellaneous Notes * Telephone Encounter - Olya Ramos L.P.N. - 10/14/2020 9:36 AM EST Spoke with mom and child has an appointment with GI on 10/17/20. No vomiting and is not nauseated for the past 2 days. FYI * Telephone Encounter - Hortensia Keys R.N. - 10/13/2020 9:40 AM EST Mom states child with ongoing nausea and vomiting. Vomited yesterday. No headaches Mom has not called GI as of this time. Mom will call to see if she can get child in. If not able will book an appt with PCP. * Telephone Encounter - Jie Mcdonnell - 10/13/2020 9:21 AM EST Signs/Symptoms: Mom calling stating child is feeling nauseous and vomiting Ask patients who call with respiratory symptoms and/or a fever if they have traveled outside of [place] recently. If yes, do not book. Send to triage Duration of symptoms: Ongoing since 09/27/20 Temperature: NA Allergies: Patient has no known allergies. Any chronic illnesses: Patient Active Problem List Diagnosis Code ??? Development delay R62.50 ??? Migraine without aura G43.009 ??? EDWIN (generalized anxiety disorder) F41.1 ??? Major depressive disorder, recurrent episode, moderate (HCC) F33.1 ??? Obesity E66.9 ??? Chronic vomiting R11.10 ??? Intellectual disability F79 ??? Cyst of skin and subcutaneous tissue L72.0 ??? Lab test negative for COVID-19 virus Z03.818 ??? Iron deficiency E61.1 Is the child taking any medications: Current Outpatient Medications Medication Sig Dispense Refill ??? aripiprazole (ABILIFY) 5 MG tablet Take 5 mg by mouth daily. ??? lamotrigine (LAMICTAL) 25 MG tablet Take 25 mg by mouth daily. ??? ondansetron (ZOFRAN ODT) 4 MG disintegrating tablet Take 2 Tabs by mouth every 8 hours as needed for Nausea for up to 2 days. 12 Tab 0 ??? verapamil (CALAN) 40 MG tablet Take 40 mg by mouth 2 Times Daily. No current facility-administered medications for this visit. documented in this encounter Plan of Treatment Not on file documented as of this encounter Visit Diagnoses Not on filedocumented in this encounter Care Teams Cash Crop Farmer Relationship Specialty Start Date End Date Lisa Moses MD PCP - General Pediatrics 12/02/17 documented as of this encounter
--- OUTSIDE RECORDS SUMMARY | 2024-10-13 14:45 | XMS_ITS | Encounter Summary ---
Author Organization [facility] Address [address] [place] [address] Care Team Providers Care Client Strategist Name Role Phone Lisa Moses MD Primary Care Provider Unavaila ble Reason for Visit * Reason Onset Date Comments Area Field Worker Feedback 03/30/2020 pediatric surger y Encounter Details Date Type Department Care Team Description 03/30/2020 Telephone Pediatrics - [address] [address] Angelina Call RNCPNP Area Field Worker Feedback (pediatric surgery) Social History Tobacco Use Types Packs/Day Years Used Date Smoking Tobacco: Never Smokeless Tobacco: Never Alcohol Use Standard Drinks/Week Comments No 0 (1 standard drink = 0.6 oz pur e alcohol) Sex Assigned at Date Recorded Not on file documented as of this encounter Miscellaneous Notes * Telephone Encounter - EMELY Benjamin - 03/30/2020 12:54 PM EDT Noted in PE exam SKIN: no rashes/small palpable mass posterior R shoulder * Telephone Encounter - Ivelisse Ratliff - 03/30/2020 11:23 AM EDT Juan Alfaro referred the patient to pediatric surgery for a skin lesion but there is no mention of a lesionin the office note. Please provide the location of skin lesion so an appointment can be scheduled. Thank you Ivelisse Oneill documented in this encounter Plan of Treatment Not on file documented as of this encounter Visit Diagnoses Not on filedocumented in this encounter Care Teams Client Strategist Relationship Specialty Start Date End Date Lisa Moses MD PCP - General Pediatrics 12/02/17 documented as of this encounter
--- OUTSIDE RECORDS SUMMARY | 2024-10-13 14:45 | XMS_ITS | Encounter Summary ---
Author Organization [facility] Address [address] [place] [address] Care Team Providers Care Bioinformatics Computer Scientist Name Role Phone Sylvia Rangel MD Primary Care Provider Kalyani e Lisa Moses MD Primary Care Provider Sharmina ble Encounter Details Date Type Department Care Team Description 05/03/2015 [facility] Medical Records [address] [place] [address] Social History Tobacco Use Types Packs/Day Years [...] on filedocumented in this encounter Care Teams Bioinformatics Computer Scientist Relationship Specialty Start Date End Date Sylvia Rangel MD PCP - General 02 12/01/17 Lisa Moses MD PCP - General Pediatrics 12/02/17 documented as of this encounter
--- OUTSIDE RECORDS SUMMARY | 2024-10-13 14:45 | XMS_ITS | Clinical Summary ---
Author Organization [facility] Address [address] [place] [address] Care Team Providers Care Managed Services Consultant Name Role Phone Lisa Moses MD Primary Care Provider Unavaila ble Allergies No known active allergies Medications Medication Sig Dispensed Refills Start Date End Date Status verapamil (CALAN) 40 MG tablet Take 40 mg by mouth 2 Times Daily. 0 06/21/2020 Active aripiprazole (ABILIFY) 5 MG tablet Take 5 mg by mouth daily. 0 Active sumatriptan (IMITREX) 50 MG tablet TAKE 1 TABLET BY MOUTH ONCE A DAY 0 10/03/2020 Active omeprazole (PRILOSEC) 20 MG capsule TAKE 1 CAPSULE BY MOUTH TWICE A DAY 0 10/17/2020 Active ondansetron (Zofran ODT) 8 MG disintegrating tablet Take 1 tablet by mouth every 8 hours as needed for Nausea for up to 7 days. 12 tablet 1 01/03/2021 Active desogestrel-ethinyl estradiol (Apri) 0.15-30 MG-MCG per tablet Take 1 tablet by mouth daily for 360 days. 28 tablet 9 01/12/2021 Active Active Problems Problem Noted Date Pelvic pain 01/14/2021 Last Assessment & Plan: Discussed wide range of potential causes of pelvic pain, however in this case the pain is most likely related to the ovarian cyst noted on ultrasound. Discussed functional ovarian cysts and reassured patient that these cysts typically resolve spontaneously. I did discuss the possibility of ovarian torsion and reviewed alarm signs and when to call including fever, a significant increase in pain that might represent a rupture, torsion, or heavy vaginal bleeding. Discussed non-contraceptive benefits of BC and encouraged patient to continue with OCPs. Reviewed relief measures for pain. Patient to return if pain worsens or does not resolve. All questions answered. Iron deficiency 10/12/2020 Overview: 06/07 - nl H/H but low iron stores, treated with iron, recheck labs 2 mos Lab test negative for COVID-19 virus 06/2021 Cyst of skin and subcutaneous tissue 09/2019 Overview: 8-20 seen R sided post shoulder nodule Epidermal inclusion cyst vs pilomatrixoma.ref for excision with local anesthesia 9- healing f/u prn Intellectual disability 10/12/2019 Overview: 2-20 Intellectual Disability mild severity(WAIS-IV FSIQ=69 Diagnosis will require confirmation at a time that her depression symptoms are better managed to clarify her cognitive strengths and weaknesses compared to peers And to re-demonstrate her need for support and services as a young adult Continue CBT/psychotherapy.apply To DDS /case worker to find community resources IEP for school.life skills training,functional,consumer-oriented academics,vocational skills Secondary education till 24y/o regardless of [employer] performance and credits reassessment of cognitive profile prior to 18 th bday to determine diagnostic status Last Assessment & Plan: 2-20 Intellectual Disability mild severity(WAIS-IV FSIQ=69 Diagnosis will require confirmation at a time that her depression symptoms are better managed to clarify her cognitive strengths and weaknesses compared to peers And to re-demonstrate her need for support and services as a young adult Continue CBT/psychotherapy.apply To DDS /case worker to find community resources IEP for school.life skills training,functional,consumer-oriented academics,vocational skills Secondary education till 24y/o regardless of [employer] performance and credits reassessment of cognitive profile prior to 18 th bday to determine diagnostic status Chronic vomiting 07/20/2019 Overview: Homer Go 07/14/19 - screening labs and abdominal US ordered; to schedule endoscopy 08-06 EGD Grade 2 esophagitis in the gastroesophageal junction compatible with esophagitis and reflux esophagitis NL stomach and NL duodenum 03-07 resolved 10/09 - stomach burning and vomiting, Pedi GI 11/06 - sx likely due to anxiety or migraines; encourages more aggressive rx of these Last Assessment & Plan: Pedi GI Dr Go 07/14/19 - screening labs and abdominal US ordered; to schedule endoscopy 08-06 EGD Grade 2 esophagitis in the gastroesophageal junction compatible with esophagitis and reflux esophagitis NL stomach and NL duodenum 03-07 resolved Obesity 03/17/2019 Overview: 03-07 improving /losing weight Last Assessment & Plan: 03-07 improving /losing weight Major depressive disorder, recurrent epi sode, moderate 03/12/2018 Overview: Admitted to Partial, [facility] and [facility] ? September [id number] partial program ref by Mary Lou Alfredo T for increased suicidal thoughts and thoughts of self injurious behavior and attempt with necklace/Depressive mood Major depressive disorder and unspecified Anxiety disorder In therapy with Lisa Hidalgo and Marisol Contreras psychiatrist/[employer] Increased Sertraline 150 mg po daily .03-06 Lisa Hayden Mt TO\M qo week.IHT brightside/zoloft and Wellbutrin - IHT Brightside 12/06 - doing well in IHT and with therapist; PHQ-9 score of 2 03-07 seeing therapist Mikey phone calls monthly,IHT 2x week storm,helpful 08/07 - adm Partial Hosp Program Last Assessment & Plan: 03-06 Lisa Hayden Mt TO\M qo week.IHT brightside/zoloft and Wellbutrin EDWIN (generalized anxiety disorder) 02/08 Overview: 3-16:MCPAP assisted therapy through [facility]/[place] [facility] [place] 7- therapist in home or school/[facility]/biweekly/Lisa Hidalgo Psychiatry [facility]/Braulio.seroquel 12.5mg once daily.prozac 7.5ml po daily 03-05 [facility].zoloft 100 mg for generalized anxiety disorder/Dr.Aponte-Slater Barreto therapy wkly in home.03-06 Lisa Hayden Mt TO\M qo week.IHT [facility] 03-07 seeing therapist Mikey phone calls monthly,IHT 2x week storm,helpful Last Assessment & Plan: 03-07 seeing therapist Jameshira phone calls monthly,IHT 2x week storm,helpful Development delay 05/08/2007 Overview: preschool with OT, PT, speech Normal hearing at [facility] 06-23-0701-29: has OT and speech 01-30: IEP at school and services include OT and speech- mainstreamed 03-04,03-05.11-04 Receives social cognition and social emotional services in school.life skills class and academic tutoring class Reading is significantly below average range 7-19 IEP at school Repeating grade maybe a new monEchelle/[employer] 7-20 sr in HS IEP Last Assessment & Plan: 11-04 Receives social cognition and social emotional services in school.life skills class and academic tutoring class Reading is significantly below average range 7-19 IEP at school Repeating grade maybe a new [employer] 7-20 sr in HS IEP Migraine without aura Overview: hosp [facility] Dr. Desirae lopez neuro- cyproheptadine and ibu[profen Office visit 11-13-11: cyproheptadine increased to 8 mg hs; 300 mg IBF and zofran as abortive therapy 08-18-12: same dose cyproheptadine and increase IBF to 400 mg ; F/U 6 months- suggested BH but declined pedin neuro 01-27-13: continue same dose cyproheptadine- change to tabs F/U 6 months; 08-24-13: doing well- infrequent MULLIGAN on cyproheptadine 8mg hs; ibuprofen PRN for headache; F/U 6mon- mom notes was seen and off cyproheptadine and uses motrin as needed- MULLIGAN infrequent 06-21-14: headache in [facility] ER - zofran 08-01: Neuro: abortive therapy: sumatriptan nasal spray 1 sp (5mg) at onset of MULLIGAN may repeat in 2 hr PRN also take zofran 4mg disolvable tab: F/U 6 mon- had c/o chest pain and mom advised to contact our office to discuss -16: Dr. Merrill- take topiramate 50 mg; same acute treatment- concern that major issue is underlying mood disorder- on wait list for therapist; needs med provider 02-09-15: Dr. Merrill: restart cyproheptadine 4 mg hs up to 8 mg karla week; 375 mg of naproxen and zofran during next migraine; 3 mon F/U ; mom to contact him PRN before 05-03: Dr. Merrill: H/O 4 ER visits in [place] this summer for IV therapy for MULLIGAN- cyproheptadine increased to 12mg dissolvable hs; to use zofran dissolvable 4mg and zomig dissolvable 5mg at onset of MULLIGAN; F/U 3 mon 05-02-15: hosp [facility]- IV toradol, reglan, benadryl; topiramate 25 mg x 1 week then 50 mg; oral diclofenac powder (most similar to toradol- liquid form); reglan 5 mg Q6hr PRN migraine; F/U neuro 1-2 week 05-12-15: Dr. Merrill-topiramate 50 mg hs- if does well will wean off cyproheptadine; diclofenac powder 50 mg PRN MULLIGAN, metoclopraminde 5mg PRN MULLIGAN, diphenhydramine 25 mg PRN MULLIGAN' F/U 2mon- to see psych on wait list for [facility] and new therapist 06-29-15: Neuro: mother hosp with manic episode bipolar dx- Preeti in care of GF; 3 MULLIGAN with this stress; non compliance with med; to be on topiramate 25mg hs x 1 wk then 50 mg; if does well cyproheptadine taper; diclofenac with reglan for acute migraine and add benadryl PRN; F/U 1 mon 07-20-15: 3 MULLIGAN, 1 missed school day; on topiramate 50 mg hs- did not use diclofenac as instructed;cyproheptadine 12 mg hs, diclofenac 50 mg PRN MULLIGAN, metoclopramide 5mg PRN migraine, nausea; F/U 3 mon -: seen in ER- school refusal- not taking topomax because did not feel well on higher dose (?75 mg or 50) and to take 25 mg hs; encouraged again to use diclofenac and metoclopramide 5 mg PRN migraine/nausea and to cont cyproheptadine 09-29-15: Dr. Merrill- noncompliance meds- not on topiramate- agreed to restart to 50 mg; ? Underlying mood disorder- needs therapist and med provider- on wait list; F/U 2 sat..- no f/u for h/a /no further h/a.07-06 appt for migraine in pedi office. 03-06 prn tylenol with relief 06/06 - Magnesium and riboflavin prescribed and referred to Neurology; apt with Dr Mckeon 07/30/19, moved up to 07/09/19 due to multiple ER visits 07/07 - Dr Mckeon - start topiramte 25 mg q HS; sumatriptan 50 mg prn - NL MRI of brain 09/07- - Dr Mckeon - increase topiramate to 100 mg at HS; recheck 4 wks 7- less frequent meds 05/08- d/c topiramate and start propranalol 10 mg BID (Dr Mckeon) 06/07 - Dr Moses d/c'd propranalol due to fatigue, nausea and depression; Dr Mckeon started depakote 06/17/20- ER visit for migraine, resolved with IV fluid, toradol, benadryl and compazine Last Assessment & Plan: 03-06 prn tylenol with relief 06/06 - Magnesium and riboflavin prescribed and referred to Neurology; apt with Dr Mckeon 07/30/19, moved up to 07/09/19 due to multiple ER visits 07/07 - Dr Mckeon - start topiramte 25 mg q HS; sumatriptan 50 mg prn - NL MRI of brain 09/07- - Dr Mckeon - increase topiramate to 100 mg at HS; recheck 4 wks 7-20 less frequent meds Resolved Problems Problem Noted Date Resolved Date Nausea and vomiting 12/30/2018 03/17/2019 Overview: 01/04- trial omeprazole/helped Last Assessment & Plan: 01/04- trial omeprazole/helped Staring episodes 2018 03/17/2019 Overview: 11/04- ER visit; EEG ordered.EEG done 11-18-18 WNL Last Assessment & Plan: 11/04- ER visit; EEG ordered.EEG done 11-18-18 WNL Trichotillomania 02/27/2018 03/17/2019 Overview: 7-18 no concerns Last Assessment & Plan: 7-18 no concerns Left ankle sprain/small joint effusion 7 06/27/2017 Overview: 6-17 [facility] mild effusion about the lateral malleolus Aircast x 2 weeks and recheck 8 resolved Chest pain 12/11/2016 03/17/2019 Overview: 12-04-17: Dr. Palacios Ped cardio: pleuritic in nature and unlikely cardiac- to have 24 hour holter; baseline EKG normal 5- echo reassuring ongoing palpitations / holtor monitor (unable to wear monitor due to episode of dizziness which occurred while trying to put it on and some resulting anxiety) gen Holtor for home Increase fld to minimize dizziness/suggested prn NSAIDS for musculoskeletal pain/anxiety is playing some role in s/s diag palpitations/chest pain f/u 2-3 weeks 7- nl results as per mom /no f/u needed/will request notes.note 5- MCT 3- lead ACT episode report NL HOLTER 01/02 negative per criteria.7- improved related to anxiety Last Assessment & Plan: 7- improved related to anxiety Constipation 09/06/2016 02/27/2017 Overview: 09/04 Referral [address] to see Dr Gaffney. Miralax is helping now 2-17 improved on miralax f/u PRN Last Assessment & Plan: 09/04 Referral placed to see Dr Gaffney. Miralax is helping now 2-17 improved on miralax f/u PRN Therapy 11/07/2015 02/27/2017 Overview: 3-16:MCPAP assisted therapy through [facility] 7-17 therapist in home or school/[facility] Psychiatry [facility]/[place].seroquel 12.5mg once daily.prozac 7.5ml po daily Last Assessment & Plan: 3-16:MCPAP assisted therapy through [facility] 7-17 therapist in home or school/[facility] Psychiatry [facility]/[place].seroquel 12.5mg once daily.prozac 7.5ml po daily Family circumstance 04/19/2015 02/27/2017 Overview: DCF inquiry 8-15; 5-17 closed 6-17 per mom Last Assessment & Plan: DCF inquiry 8-15; 5-17 closed 6-17 per mom Abnormal posture 08/05/2012 02/27/2017 Overview: Question of scoliosis on chest film 07-18-12- on exam 08-05-12 4 degree R T-L hump 7-17 stable no concerns per mom Last Assessment & Plan: 7-17 stable no concerns per mom Tinea corporis 06/13/2011 02/04/2014 Overview: Seen by Darin Yung. Clotrimastefania. Head and shoulder Esophageal reflux 08/08/2006 01/20/2010 Failure to thrive in childhood 11/29/2003 0 01/31/2011 Overview: Referred toPedi- GI Periactin- Last visit: 09-05-07 Resolved- 11 Microcephalus 02/04/2014 Overview: MRI 11/20-[facility] Abdominal pain 02/04/2014 Overview: constipation in ER; Rx miralax Immunizations Name Administration Dates Next Due DTaP 05/08/2007, 3,03/09/2003,01/07 DTaP-HIB 02/03/2004 HIB 02/03/2004, 3,03/09/2003,01/07 HPV (Gardasil) 09/16/2014,04/28/2014,02/04/2014 Hepatitis B-3 Dose (<19yrs) 07/25/2003, 3,2002 Influenza (6-35 months) 07/24/2006,08/25/2005, Influenza (> 6 Months) 06/01/2013,2011,06/04/2011,07/06,06/05/2008,05/31/2007 Influenza (>6 Months) Split Preservative Free 06/10/2020,05/18/2019,07/07/2018,05/07,06/19/2016,09/01/2015,04/28/2014 MMR (Sqvtebc-Ceorr-Mcrophh) 05/08/2007, 4 Meningococcal (Menactra) 03/17/2019,02/04/2014 Pneumococcal(Pedi) Conjugate PCV-7 05/12,05/03/2003,03/09/2003,01/07 Polio (IPV) 05/08/2007, 3,03/09/2003,01/07 Tdap 02/04/2014 Varicella 12/26/2007,11/10/2003 Family History Medical History Relation Name Comments CA Lung Maternal Grandmother Diabetes Maternal Grandmother 67y/o bipolar Mother hosp 12/19 Relation Name Status Comments Father Alive 05/23/1975 Jessica Adame Maternal Grandfather Alive Maternal Grandmother Mother Alive 10/05/75 Dottie- Mom legal and physical custody Paternal Grandfather Alive Paternal Grandmother Alive Social History Tobacco Use Types Packs/Day Years Used Date Smoking Tobacco: Never Smokeless Tobacco: Never Alcohol Use Standard Drinks/Week Comments No 0 (1 standard drink = 0.6 oz pur e alcohol) Sex Assigned at Date Recorded Not on file Last Filed Vital Signs Vital Sign Reading Time Taken Comments Blood Pressure 110/70 01/12/2021 10:07 AM EDT Pulse 117 01/12/2021 10:07 AM EDT Temperature 36.8 ??C (98.3 ??F) 01/03/2021 1 1:18 AM EDT Respiratory Rate 18 01/12/2021 10:0 7 AM EDT Oxygen Saturation 100% 09/29/2020 9:37 AM EST Inhaled Oxygen Concentration - - Weight 77.9 kg (171 lb 12.8 oz) 021 10:07 AM EDT Height 152.4 cm (5') 06/10/2020 11:18 AM EDT Body Mass Index - - Plan of Treatment Health Maintenance Due Date Last Done Comments Covid-19 Vaccine (#1) 05/03/2003 GONORRHEA & CHLAMYDIA SCREENING 03/17/2021 0 BASELINE HEALTH EXAM 18-39 10/31/202103/17, 05/11/2019, 03/17/2019, Additional history exists CERVICAL CANCER SCREENING 11/01/2023 DTAP/TDAP/TD (6 - Td or Tdap) 02/05/2024, 05/08/2007, 05/03/2003, Additional history exists INFLUENZA (#1) 2024 06/10/2020, 04/21, 07/07/2018, Additional history exists BMI CHECK/ADVISE 08/19/2024 03/17/2020, , 03/17/2019, Additional history exists DEPRESSION SCREENING/FOLLOWUP 08/19/2024, 06/10/2020, 05/31/2020, Additional history exists SOCIAL NEEDS SCREENING 08/19/2024 , 03/17/2020, 05/18/2019, Additional history exists CHOLESTEROL SCREENING 06/10/2025 06/10/2020 , 03/26/2018, 01/09/2006 PNEUMOCOCCAL VACCINE FOR HIG H RISK PATIENTS (#1) 11/01/2067 HUMAN PAPILLOMAVIRUS (HPV) Completed 09/16, 04/28/2014, 02/04/2014 Care Teams Managed Services Consultant Relationship Specialty Start Date End Date Lisa Moses MD PCP - General Pediatrics 12/02/17
--- OUTSIDE RECORDS SUMMARY | 2024-10-13 14:45 | XMS_ITS | Encounter Summary ---
Author Organization [facility] Address [address] [place] [address] Care Team Providers Care Pulp Beater Name Role Phone Sylvia Rangel MD Primary Care Provider Kalyani e Lisa Moses MD Primary Care Provider Sharmina maurice Encounter Details Date Type Department Care Team Description 01/28/2012 Portrait Photographer Report Medical Records [address] [place] [address] Dominic Merrill Social History Tobacco Use Types [...] on filedocumented in this encounter Care Teams Pulp Beater Relationship Specialty Start Date End Date Sylvia Rangel MD PCP - General 02 12/01/17 Lisa Moses MD PCP - General Pediatrics 12/02/17 documented as of this encounter
--- OUTSIDE RECORDS SUMMARY | 2024-10-13 14:45 | XMS_ITS | Encounter Summary ---
Author Organization [facility] Address [address] [place] [address] Care Team Providers Care Software Team Leader Name Role Phone Sylvia Rangel MD Primary Care Provider Unavaildexter e Lisa Moses MD Primary Care Provider Unavaila ble Encounter Details Date Type Department Care Team Description 05/12/2015 Military Lawyer Report Medical Records [address] [place] [address] Dominic Merrill Social History Tobacco Use Types [...] on filedocumented in this encounter Care Teams Software Team Leader Relationship Specialty Start Date End Date Sylvia Rangel MD PCP - General 02 12/01/17 Lisa Moses MD PCP - General Pediatrics 12/02/17 documented as of this encounter
--- OUTSIDE RECORDS SUMMARY | 2024-10-13 14:45 | XMS_ITS | Encounter Summary ---
Author Organization [facility] Address [address] [place] [address] Care Team Providers Care Food And Beverage Attendant Name Role Phone Sylvia Rangel MD Primary Care Provider Kalyani e Lisa Moses MD Primary Care Provider Sharmina maurice Encounter Details Date Type Department Care Team Description 12/17/2011 Night Triage Doc Medical Records [address] [place] [id number] Abstract, Provider Social History Tobacco Use Types [...] on filedocumented in this encounter Care Teams Food And Beverage Attendant Relationship Specialty Start Date End Date Sylvia Rangel MD PCP - General 02 12/01/17 Lisa Moses MD PCP - General Pediatrics 12/02/17 documented as of this encounter
--- OUTSIDE RECORDS SUMMARY | 2024-10-13 14:45 | XMS_ITS | Encounter Summary ---
Author Organization [facility] Address [address] [place] [address] Care Team Providers Care Translator Deaf Name Role Phone Sylvia Rangel MD Primary Care Provider Kalyani e Lisa Moses MD Primary Care Provider Sharmina maurice Encounter Details Date Type Department Care Team Description 07/19/2012 Night Triage Doc Medical Records [address] [place] [address] Abstract, Provider Social History Tobacco Use Types [...] on filedocumented in this encounter Care Teams Translator Deaf Relationship Specialty Start Date End Date Sylvia Rangel MD PCP - General 02 12/01/17 Lisa Moses MD PCP - General Pediatrics 12/02/17 documented as of this encounter
--- OUTSIDE RECORDS SUMMARY | 2024-10-13 14:45 | XMS_ITS | Encounter Summary ---
Author Organization [facility] Address [address] [place] [address] Care Team Providers Care Registered Radiologic Technologist Name Role Phone Lisa Moses MD Primary Care Provider Delonte richards Encounter Details Date Type Department Care Team Description 05/11/2019 Orders Only Lab - [address] [address] Paresh Begum MD Routine general medical examination [...] Primary documented in this encounter Care Teams Registered Radiologic Technologist Relationship Specialty Start Date End Date Lisa Moses MD PCP - General Pediatrics 12/02/17 documented as of this encounter
--- OUTSIDE RECORDS SUMMARY | 2024-10-13 14:45 | XMS_ITS | Encounter Summary ---
Author Organization [facility] Address [address] [place] [address] Care Team Providers Care Office 365 Consultant Name Role Phone Sylvia Rangel MD Primary Care Provider Unavaildexter e Lisa Moses MD Primary Care Provider Unavaila ble Encounter Details Date Type Department Care Team Description 01/24/2015 Night Triage Doc Medical Records [address] [place] [id number] Abstract, Provider Social History Tobacco Use Types [...] on filedocumented in this encounter Care Teams Office 365 Consultant Relationship Specialty Start Date End Date Sylvia Rangel MD PCP - General 02 12/01/17 Lisa Moses MD PCP - General Pediatrics 12/02/17 documented as of this encounter
--- OUTSIDE RECORDS SUMMARY | 2024-10-13 14:45 | XMS_ITS | Encounter Summary ---
Author Organization [facility] Address [address] [place] [address] Care Team Providers Care Citrus Picker Name Role Phone Lisa Moses MD Primary Care Provider Unavaila ble Reason for Visit * Reason Onset Date Comments Headache 06/12/2018 Encounter Details Date Type Department Care Team Description 06/12/2018 Telephone Pediatrics - [address] [address] Lisa Moses MD Headache Social History Tobacco Use Types Packs/Day Years Used Date Smoking Tobacco: Never Smokeless Tobacco: Never Alcohol Use Standard Drinks/Week Comments No 0 (1 standard drink = 0.6 oz pur e alcohol) Sex Assigned at Date Recorded Not on file documented as of this encounter Miscellaneous Notes * Telephone Encounter - Olya Ramos L.P.N. - 06/12/2018 8:58 AM EDT [facility] - Telephone Triage Documentation CHIEF COMPLAINT:Mom states [...] on filedocumented in this encounter Care Teams Citrus Picker Relationship Specialty Start Date End Date Lisa Moses MD PCP - General Pediatrics 12/02/17 documented as of this encounter
--- OUTSIDE RECORDS SUMMARY | 2024-10-13 14:45 | XMS_ITS | Encounter Summary ---
Author Organization [facility] Address [address] [place] [address] Care Team Providers Care Channeler Outsole Name Role Phone Lisa Moses MD Primary Care Provider Delonte richards Encounter Details Date Type Department Care Team Description 05/10/2020 Obstetrics Gynecology Md Report Medical Records [address] [place] [address] Nghia Caputo Social History Tobacco Use Types [...] on filedocumented in this encounter Care Teams Channeler Outsole Relationship Specialty Start Date End Date Lisa Moses MD PCP - General Pediatrics 12/02/17 documented as of this encounter
--- OUTSIDE RECORDS SUMMARY | 2024-10-13 14:45 | XMS_ITS | Encounter Summary ---
Author Organization [facility] Address [address] [place] [address] Care Team Providers Care Operating Room Surgical Technician Name Role Phone Lisa Moses MD Primary Care Provider Delonte richards Encounter Details Date Type Department Care Team Description 07/14/2019 Plant Tender Report Medical Records [address] [place] [address] Social History Tobacco Use Types Packs/Day Years [...] on filedocumented in this encounter Care Teams Operating Room Surgical Technician Relationship Specialty Start Date End Date Lisa Moses MD PCP - General Pediatrics 12/02/17 documented as of this encounter
--- OUTSIDE RECORDS SUMMARY | 2024-10-13 14:45 | XMS_ITS | Encounter Summary ---
Author Organization [facility] Address [address] [place] [address] Care Team Providers Care Manager Six Sigma Name Role Phone Lisa Moses MD Primary Care Provider Delonte richards Encounter Details Date Type Department Care Team Description 09/11/2019 Release of Information Medical Records [address] [place] [id number] Abstract, Provider Social History Tobacco Use Types [...] filedocumented in this encounter Care Teams Manager Six Sigma Relationship Specialty Start Date End Date Lisa Moses MD PCP - General Pediatrics 12/02/17 documented as of this encounter
--- OUTSIDE RECORDS SUMMARY | 2024-10-13 14:45 | XMS_ITS | Encounter Summary ---
Author Organization [facility] Address [address] [place] [address] Care Team Providers Care Kitchen Food Server Name Role Phone Lisa Moses MD Primary Care Provider Unavaila ble Reason for Referral * EXTERNAL (Routine) - Authorized/Booked Specialty Diagnoses / Procedures Referred By Sánchez vogel Referred To Contact Nutrition Diagnoses Obesity due to excess calories, unspecified classification, unspecified whether serious comorbidity present Procedures REFERRAL TO PEDIATRIC NUTRITION Angelina aCll RNCPNP [address] [place] [address] External Nutrition Referral ID Status Reason Start Date Expiration Date V isits Requested Visits Authorized SEE NOTE Authorized/B ooked 10/22/2019 01/23/2020 1 1 Reason for Visit * Reason Onset Date Comments REFERRAL 10/22/2019 Encounter Details Date Type Department Care Team Description 10/22/2019 Telephone Pediatrics - [address] [address] Lisa Moses MD REFERRAL Social History Tobacco [...] Primary documented in this encounter Care Teams Kitchen Food Server Relationship Specialty Start Date End Date Lisa Moses MD PCP - General Pediatrics 12/02/17 documented as of this encounter
--- OUTSIDE RECORDS SUMMARY | 2024-10-13 14:45 | XMS_ITS | Encounter Summary ---
Author Organization [facility] Address [address] [place] [address] Care Team Providers Care Painter Spray Name Role Phone Lisa Moses MD Primary Care Provider Unavaila ble Reason for Visit * Reason Onset Date Comments Batt Machine Operator Feedback 07/07/2019 [facility] Encounter Details Date Type Department Care Team Description 07/07/2019 Telephone Pediatrics - [address] [address] Angelina Call RNCPNP Batt Machine Operator Feedback ([facility]) Social History Tobacco Use Types Packs/Day Years Used Date Smoking Tobacco: Never Smokeless Tobacco: Never Alcohol Use Standard Drinks/Week Comments No 0 (1 standard drink = 0.6 oz pur e alcohol) Sex Assigned at Date Recorded Not on file documented as of this encounter Miscellaneous Notes * Telephone Encounter - Kami Fox - 07/07/2019 2:07 PM EST [facility]- order and [facility] neuropsych testing form inter officed to [facility] pool. Once form is completed and TAX COMPLIANCE REPRESENTATIVE receives it back the completed form will be faxed to Genevieve at [facility].Genevieve will contact the patient with appointment information. Kami Tomas Referrals Department documented in this encounter Plan of Treatment Not on file documented as of this encounter Visit Diagnoses Not on filedocumented in this encounter Care Teams Painter Spray Relationship Specialty Start Date End Date Lisa Moses MD PCP - General Pediatrics 12/02/17 documented as of this encounter
--- OUTSIDE RECORDS SUMMARY | 2024-10-13 14:45 | XMS_ITS | Encounter Summary ---
Author Organization [facility] Address [address] [place] [address] Care Team Providers Care Plush Cutter Name Role Phone Sylvia Rangel MD Primary Care Provider Kalyani e Lisa Moses MD Primary Care Provider Sharmina ble Encounter Details Date Type Department Care Team Description 01/23/2006 [facility] Medical Records [address] [place] [address] Abstract, Provider Social History Tobacco Use Types [...] on filedocumented in this encounter Care Teams Plush Cutter Relationship Specialty Start Date End Date Sylvia Rangel MD PCP - General 02 12/01/17 Lisa Moses MD PCP - General Pediatrics 12/02/17 documented as of this encounter
--- OUTSIDE RECORDS SUMMARY | 2024-10-13 14:45 | XMS_ITS | Encounter Summary ---
Author Organization [facility] Address [address] [place] [address] Care Team Providers Care Demographer Name Role Phone Sylvia Rangel MD Primary Care Provider Kalyani e Lisa Moses MD Primary Care Provider Sharmina ble Encounter Details Date Type Department Care Team Description 02/08/2017 Release of Information Medical Records [address] [place] [address] Abstract, Provider Social History Tobacco Use Types [...] on filedocumented in this encounter Care Teams Demographer Relationship Specialty Start Date End Date Sylvia Rangel MD PCP - General 02 12/01/17 Lisa Moses MD PCP - General Pediatrics 12/02/17 documented as of this encounter
--- OUTSIDE RECORDS SUMMARY | 2024-10-13 14:45 | XMS_ITS | Encounter Summary ---
Author Organization [facility] Address [address] [place] [address] Care Team Providers Care Civil Cadd Technician Name Role Phone Sylvia Rangel MD Primary Care Provider Kalyani e Lisa Moses MD Primary Care Provider Sharmina ble Encounter Details Date Type Department Care Team Description 06/23/2016 Release of Information Medical Records [address] [place] [address] Abstract, Provider Social History Tobacco Use Types [...] filedocumented in this encounter Care Teams Civil Cadd Technician Relationship Specialty Start Date End Date Sylvia Rangel MD PCP - General 02 12/01/17 Lisa Moses MD PCP - General Pediatrics 12/02/17 documented as of this encounter
--- OUTSIDE RECORDS SUMMARY | 2024-10-13 14:45 | XMS_ITS | Encounter Summary ---
Author Organization [facility] Address [address] [place] [address] Care Team Providers Care Blueprint Maker Name Role Phone Sylvia Rangel MD Primary Care Provider Unavaildexter e Lisa Moses MD Primary Care Provider Unavaila ble Encounter Details Date Type Department Care Team Description 01/15/2017 Awning Craftsman Report Medical Records [address] [place] [address] Dinorah Palacios Social History Tobacco Use Types Packs/Day Years [...] on filedocumented in this encounter Care Teams Blueprint Maker Relationship Specialty Start Date End Date Sylvia Rangel MD PCP - General 02 12/01/17 Lisa Moses MD PCP - General Pediatrics 12/02/17 documented as of this encounter
--- OUTSIDE RECORDS SUMMARY | 2024-10-13 14:45 | XMS_ITS | Encounter Summary ---
Author Organization [facility] Address [address] [place] [address] Care Team Providers Care Client Sales And Service Officer Name Role Phone Lisa Moses MD Primary Care Provider Delonte richards Encounter Details Date Type Department Care Team Description 07/21/2018 [facility] Medical Records [address] [place] [address] Abstract, Provider Social History Tobacco Use Types [...] filedocumented in this encounter Care Teams Client Sales And Service Officer Relationship Specialty Start Date End Date Lisa Moses MD PCP - General Pediatrics 12/02/17 documented as of this encounter
--- OUTSIDE RECORDS SUMMARY | 2024-10-13 14:45 | XMS_ITS | Encounter Summary ---
Author Organization [facility] Address [address] [place] [address] Care Team Providers Care Pharmacy Manager Name Role Phone Sylvia Rangel MD Primary Care Provider Kalyani e Lisa Moses MD Primary Care Provider Sharmina ble Encounter Details Date Type Department Care Team Description 01/11/2017 Release of Information Medical Records [address] [place] [address] Abstract, Provider Social History Tobacco Use Types [...] on filedocumented in this encounter Care Teams Pharmacy Manager Relationship Specialty Start Date End Date Sylvia Rangel MD PCP - General 02 12/01/17 Lisa Moses MD PCP - General Pediatrics 12/02/17 documented as of this encounter
--- OUTSIDE RECORDS SUMMARY | 2024-10-13 14:45 | XMS_ITS | Encounter Summary ---
Author Organization [facility] Address [address] [place] [address] Care Team Providers Care National Sales Consultant Name Role Phone Sylvia Rangel MD Primary Care Provider Kalyani e Lisa Moses MD Primary Care Provider Unavaila ble Encounter Details Date Type Department Care Team Description 02/11/2017 Heating Fixture Tender Report Medical Records [address] [place], [place] [id number] [place] [address] For Social History Tobacco Use Types Packs/Day [...] on filedocumented in this encounter Care Teams National Sales Consultant Relationship Specialty Start Date End Date Sylvia Rangel MD PCP - General 02 12/01/17 Lisa Moses MD PCP - General Pediatrics 12/02/17 documented as of this encounter
--- OUTSIDE RECORDS SUMMARY | 2024-10-13 14:45 | XMS_ITS | Encounter Summary ---
Author Organization [facility] Address [address] [place] [address] Care Team Providers Care Investor Relations Manager Name Role Phone Lisa Moses MD Primary Care Provider Unavaila ble Reason for Referral * EXTERNAL (Routine) - Authorized/Booked Specialty Diagnoses / Procedures Referred By Sánchez vogel Referred To Contact Neurology Procedures REFERRAL TO NEUROLOGY Lisa Moses MD [address] [place] [id number] [place] [address] [facility] [address], [address] [place] [id number] Referral ID Status Reason Start Date Expiration Date V isits Requested Visits Authorized SEE NOTE Authorized/B ooked 06/11/2019 09/12/2019 1 1 Reason for Visit * Reason Onset Date Comments Liquor Grinding Mill Operator Feedback 06/11/2019 Dr. Merrill Encounter Details Date Type Department Care Team Description 06/11/2019 Telephone Adult Medicine - [place] [address] [place] [address] Lisa Moses MD Liquor Grinding Mill Operator Feedback (Dr. Merrill) Social History Tobacco [...] on filedocumented in this encounter Care Teams Investor Relations Manager Relationship Specialty Start Date End Date Lisa Moses MD PCP - General Pediatrics 12/02/17 documented as of this encounter
== END 2024-10-13 12:05 | disposition home or self-care (01) ==
LOC: HO.LABR 12:04
PROVIDERS: PCP Internal Medicine; Visit Provider Psychiatry & Neurology Psychiatry
DX: Z79.899 Other long term (current) drug therapy (principal)
CPT/HCPCS: 36415; 85025

== ENCOUNTER 2024-10-27 10:13 | Outpatient (REF) | payer OTHER, SELFPAY ==
[2024-10-27 10:52] LABS: MANUAL DIFF FLAG NO
[2024-10-27 12:02] LABS: Basophils Percent Auto 0.5 % (0-2); Eosinophils Absolute Auto 0.1 X10*3/uL (0.0-0.4); Eosinophils Percent Auto 1.2 % (0-4); Hematocrit 40.2 % (37.0-47.0); Hemoglobin 13.1 g/dl (12.0-16.0); Imm Gran Abs Auto 0.03 X10*3/uL (0.00-0.03); Imm Gran Pct Auto 0.4 % (0.0-0.4); Lymphocytes Absolute Auto 2.2 X10*3/uL (1.2-4.9); Lymphocytes Percent Auto 29.2 % (20-40); Mean Corpuscular HGB Conc 32.6 g/dl (31.0-35.0); Mean Corpuscular Hemoglobin 27.2 pg (27.0-33.0); Mean Corpuscular Volume 83.4 fL (80.0-98.0); Mean Platelet Volume 10.4 fL (9.4-12.3); Monocytes Absolute Auto 0.6 X10*3/uL (0.1-1.2); Monocytes Percent Auto 7.2 % (2-11); Neutrophils Absolute Auto 4.7 x10*3/uL (2.0-8.3); Neutrophils Percent Auto 61.5 % (45-73); Platelet Count 411 X10*3/uL (160-400); Red Blood Count 4.82 X10*6/uL (4.20-5.50); Red Cell Distribution Width 15.1 % (11.0-16.0); White Blood Count 7.6 X10*3/uL (4.8-10.8)
--- OUTSIDE RECORDS SUMMARY | 2024-10-27 12:02 | XMS_ITS | Encounter Summary ---
Author Organization [facility] Address [address] [place] [address] Care Team Providers Care Repair Manager Name Role Phone Sylvia Rangel MD Primary Care Provider Unavaildexter e Lisa Moses MD Primary Care Provider Unavaila ble Encounter Details Date Type Department Care Team Description 08/01/2011 Edging Catcher Report Medical Records [address] [place] [address] Chandana Bustamante MD Social History Tobacco Use [...] on filedocumented in this encounter Care Teams Repair Manager Relationship Specialty Start Date End Date Sylvia Rangel MD PCP - General 02 12/01/17 Lisa Moses MD PCP - General Pediatrics 12/02/17 documented as of this encounter
--- OUTSIDE RECORDS SUMMARY | 2024-10-27 12:02 | XMS_ITS | Encounter Summary ---
Author Organization [facility] Address [address] [place] [address] Care Team Providers Care Mathematician Name Role Phone Sylvia Rangel MD Primary Care Provider Unavaildexter e Lisa Moses MD Primary Care Provider Unavaila ble Encounter Details Date Type Department Care Team Description 07/19/2010 Retail Visual Merchandiser Report Medical Records [address] [place] [address] Bryce Alaniz MD Social History Tobacco Use [...] on filedocumented in this encounter Care Teams Mathematician Relationship Specialty Start Date End Date Sylvia Rangel MD PCP - General 02 12/01/17 Lisa Moses MD PCP - General Pediatrics 12/02/17 documented as of this encounter
--- OUTSIDE RECORDS SUMMARY | 2024-10-27 12:03 | XMS_ITS | Encounter Summary ---
Author Organization [facility] Address [address] [place] [address] Care Team Providers Care High Value Associate Name Role Phone Sylvia Rangel MD Primary Care Provider Unavaildexter e Lisa Moses MD Primary Care Provider Unavaila ble Encounter Details Date Type Department Care Team Description 07/21/2015 Parts Salesperson Report Medical Records [address] [place] [address] Dominic Merrill Social History Tobacco Use Types [...] on filedocumented in this encounter Care Teams High Value Associate Relationship Specialty Start Date End Date Sylvia Rangel MD PCP - General 02 12/01/17 Lisa Moses MD PCP - General Pediatrics 12/02/17 documented as of this encounter
--- OUTSIDE RECORDS SUMMARY | 2024-10-27 12:03 | XMS_ITS | Encounter Summary ---
Author Organization [facility] Address [address] [place] [address] Care Team Providers Care Copy Coordinator Name Role Phone Sylvia Rangel MD Primary Care Provider Kalyani e Lisa Moses MD Primary Care Provider Unavaila ble Encounter Details Date Type Department Care Team Description 08/10/2012 [facility] Medical Records [address] [place] [address] Nani Banegas MD Social History Tobacco Use [...] filedocumented in this encounter Care Teams Copy Coordinator Relationship Specialty Start Date End Date Sylvia Rangel MD PCP - General 02 12/01/17 Lisa Moses MD PCP - General Pediatrics 12/02/17 documented as of this encounter
--- OUTSIDE RECORDS SUMMARY | 2024-10-27 12:03 | XMS_ITS | Encounter Summary ---
Author Organization [facility] Address [address] [place] [address] Care Team Providers Care Bread Racker Name Role Phone Sylvia Rangel MD Primary Care Provider Unavaildexter e Lisa Moses MD Primary Care Provider Unavaila ble Encounter Details Date Type Department Care Team Description 02/28/2017 Public Health Policy Analyst Report Medical Records [address] [place], [place] [id number] [place] [address] For Social History Tobacco Use Types Packs/Day [...] on filedocumented in this encounter Care Teams Bread Racker Relationship Specialty Start Date End Date Sylvia Rangel MD PCP - General 02 12/01/17 Lisa Moses MD PCP - General Pediatrics 12/02/17 documented as of this encounter
--- OUTSIDE RECORDS SUMMARY | 2024-10-27 12:03 | XMS_ITS | Encounter Summary ---
Author Organization [facility] Address [address] [place] [address] Care Team Providers Care Certified Court/Medical Interpreter Name Role Phone Sylvia Rangel MD Primary Care Provider Lisa Yu MD Primary Care Provider Sharmina ble Reason for Visit * Reason Onset Date Comments DCF 04/15/2015 Encounter Details Date Type Department Care Team Description 04/15/2015 Telephone Pediatrics - [address] [address] Sylvia Rangel MD [facility] Social History Tobacco Use Types Packs/Day [...] - 04/18/2015 9:56 AM EDT Cindy from [facility] calling back on 3 patients * Telephone Encounter - Mckenna Borges L.P.N. - 04/18/2015 9:29 AM EDT Left message to call back. * Telephone Encounter - Hortensia Keys R.N. - 04/15/2015 3:55 PM EDT Left message * Telephone Encounter - Shannan Amaya - 04/15/2015 3:16 PM EDT Name and title of caller: Whit from [facility]- a on file : 2002 Age: 14 yr. Is this an active 51A case: Yes. Case is currently active. Message forwarded to nurse to provide information. Message forwarded to nurse for follow up documented in this encounter Plan of Treatment Not on file documented as of this encounter Visit Diagnoses Not on filedocumented in this encounter Care Teams Certified Court/Medical Interpreter Relationship Specialty Start Date End Date Sylvia Rangel MD PCP - General 02 12/01/17 Lisa Moses MD PCP - General Pediatrics 12/02/17 documented as of this encounter
--- OUTSIDE RECORDS SUMMARY | 2024-10-27 12:03 | XMS_ITS | Encounter Summary ---
Author Organization [facility] Address [address] [place] [address] Care Team Providers Care Top Cager Name Role Phone Sylvia Rangel MD Primary Care Provider Unavaildexter e Lisa Moses MD Primary Care Provider Unavaila ble Encounter Details Date Type Department Care Team Description 04/19/2015 Slip Sheeter Report Medical Records [address] [place] [address] Dominic Merrill Social History Tobacco Use Types [...] on filedocumented in this encounter Care Teams Top Cager Relationship Specialty Start Date End Date Sylvia Rangel MD PCP - General 02 12/01/17 Lisa Moses MD PCP - General Pediatrics 12/02/17 documented as of this encounter
--- OUTSIDE RECORDS SUMMARY | 2024-10-27 12:03 | XMS_ITS | Encounter Summary ---
Author Organization [facility] Address [address] [place] [address] Care Team Providers Care Felt Hanger Name Role Phone Sylvia Rangel MD Primary Care Provider Unavaildexter e Lisa Moses MD Primary Care Provider Unavaila ble Encounter Details Date Type Department Care Team Description 05/12/2015 Under Sheriff Report Medical Records [address] [place] [address] Dominic Merrill Social History Tobacco Use Types [...] on filedocumented in this encounter Care Teams Felt Hanger Relationship Specialty Start Date End Date Sylvia Rangel MD PCP - General 02 12/01/17 Lisa Moses MD PCP - General Pediatrics 12/02/17 documented as of this encounter
--- OUTSIDE RECORDS SUMMARY | 2024-10-27 12:03 | XMS_ITS | Encounter Summary ---
Author Organization [facility] Address [address] [place] [address] Care Team Providers Care Fishing Rod Mechanic Name Role Phone Sylvia Rangel MD Primary Care Provider Kalyani e Lisa Moses MD Primary Care Provider Sharmina maurice Encounter Details Date Type Department Care Team Description 01/27/2013 Erector Operator Report Medical Records [address] [place] [address] Dominic Merrill Social History Tobacco Use Types [...] on filedocumented in this encounter Care Teams Fishing Rod Mechanic Relationship Specialty Start Date End Date Sylvia Rangel MD PCP - General 02 12/01/17 Lisa Moses MD PCP - General Pediatrics 12/02/17 documented as of this encounter
--- OUTSIDE RECORDS SUMMARY | 2024-10-27 12:03 | XMS_ITS | Encounter Summary ---
Author Organization [facility] Address [address] [place] [address] Care Team Providers Care Rfid Analyst Name Role Phone Sylvia Rangel MD Primary Care Provider Unavaildexter e Lisa Moses MD Primary Care Provider Unavaila ble Encounter Details Date Type Department Care Team Description 10/08/2016 Supply Chain Business Analyst Report Medical Records [address] [place] [address] Marcia Gaffney Social History Tobacco Use Types [...] on filedocumented in this encounter Care Teams Rfid Analyst Relationship Specialty Start Date End Date Sylvia Rangel MD PCP - General 02 12/01/17 Lisa Moses MD PCP - General Pediatrics 12/02/17 documented as of this encounter
--- OUTSIDE RECORDS SUMMARY | 2024-10-27 12:03 | XMS_ITS | Encounter Summary ---
Author Organization [facility] Address [address] [place] [address] Care Team Providers Care Cylinder Grinder Name Role Phone Sylvia Rangel MD Primary Care Provider Kalyani e Lisa Moses MD Primary Care Provider Sharmina maurice Encounter Details Date Type Department Care Team Description 11/13/2011 Escapement Matcher Report Medical Records [address] [place] [address] Dominic Merrill Social History Tobacco Use Types [...] on filedocumented in this encounter Care Teams Cylinder Grinder Relationship Specialty Start Date End Date Sylvia Rangel MD PCP - General 02 12/01/17 Lisa Moses MD PCP - General Pediatrics 12/02/17 documented as of this encounter
--- OUTSIDE RECORDS SUMMARY | 2024-10-27 12:03 | XMS_ITS | Encounter Summary ---
Author Organization [facility] Address [address] [place] [address] Care Team Providers Care Shirring Machine Operator Name Role Phone Lisa Moses MD Primary Care Provider Delonte richards Encounter Details Date Type Department Care Team Description 04/08/2020 Hardwood Faller Report Medical Records [address] [place] [address] Nghia Caputo Social History Tobacco Use Types [...] on filedocumented in this encounter Care Teams Shirring Machine Operator Relationship Specialty Start Date End Date Lisa Moses MD PCP - General Pediatrics 12/02/17 documented as of this encounter
--- OUTSIDE RECORDS SUMMARY | 2024-10-27 12:03 | XMS_ITS | Encounter Summary ---
Author Organization [facility] Address [address] [place] [address] Care Team Providers Care Cork Mixer Name Role Phone Lisa Moses MD Primary Care Provider Delonte richards Encounter Details Date Type Department Care Team Description 05/11/2019 Orders Only Lab - [address] [address] Paresh Begum MD Routine general medical examination [...] Primary documented in this encounter Care Teams Cork Mixer Relationship Specialty Start Date End Date Lisa Moses MD PCP - General Pediatrics 12/02/17 documented as of this encounter
--- OUTSIDE RECORDS SUMMARY | 2024-10-27 12:03 | XMS_ITS | Encounter Summary ---
Author Organization [facility] Address [address] [place] [address] Care Team Providers Care Orchard Hand Name Role Phone Lisa Moses MD Primary Care Provider Unavaila ble Reason for Visit * Reason Onset Date Comments Form 07/08/2019 Referral Encounter Details Date Type Department Care Team Description 07/08/2019 Telephone Pediatrics - [address] [address] Angelina Call RNCPNP Form (Referral) Social History [...] on filedocumented in this encounter Care Teams Orchard Hand Relationship Specialty Start Date End Date Lisa Moses MD PCP - General Pediatrics 12/02/17 documented as of this encounter
--- OUTSIDE RECORDS SUMMARY | 2024-10-27 12:03 | XMS_ITS | Encounter Summary ---
Author Organization [facility] Address [address] [place] [address] Care Team Providers Care Psychologist Social Name Role Phone Sylvia Rangel MD Primary Care Provider Unavaildexter e Lisa Moses MD Primary Care Provider Unavaila ble Encounter Details Date Type Department Care Team Description 01/24/2015 Night Triage Doc Medical Records [address] [place] [address] Abstract, Provider Social History Tobacco Use Types [...] on filedocumented in this encounter Care Teams Psychologist Social Relationship Specialty Start Date End Date Sylvia Rangel MD PCP - General 02 12/01/17 Lisa Moses MD PCP - General Pediatrics 12/02/17 documented as of this encounter
--- OUTSIDE RECORDS SUMMARY | 2024-10-27 12:03 | XMS_ITS | Encounter Summary ---
Author Organization [facility] Address [address] [place] [address] Care Team Providers Care Ludlow Machine Operator Name Role Phone Sylvia Rangel MD Primary Care Provider Kalyani e Lisa Moses MD Primary Care Provider Sharmina maurice Encounter Details Date Type Department Care Team Description 12/17/2011 Night Triage Doc Medical Records [address] [place] [address] Abstract, Provider Social History Tobacco Use Types [...] on filedocumented in this encounter Care Teams Ludlow Machine Operator Relationship Specialty Start Date End Date Sylvia Rangel MD PCP - General 02 12/01/17 Lisa Moses MD PCP - General Pediatrics 12/02/17 documented as of this encounter
--- OUTSIDE RECORDS SUMMARY | 2024-10-27 12:03 | XMS_ITS | Encounter Summary ---
Author Organization [facility] Address [address] [place] [address] Care Team Providers Care Laboratory Secretary Name Role Phone Sylvia Rangel MD Primary Care Provider Unavaildexter e Lisa Moses MD Primary Care Provider Unavaila ble Encounter Details Date Type Department Care Team Description 06/28/2015 Rivet Passer Report Medical Records [address] [place] [address] Dominic Merrill Social History Tobacco Use Types [...] on filedocumented in this encounter Care Teams Laboratory Secretary Relationship Specialty Start Date End Date Sylvia Rangel MD PCP - General 02 12/01/17 Lisa Moses MD PCP - General Pediatrics 12/02/17 documented as of this encounter
--- OUTSIDE RECORDS SUMMARY | 2024-10-27 12:03 | XMS_ITS | Encounter Summary ---
Author Organization [facility] Address [address] [place] [address] Care Team Providers Care Rotor Assembler Name Role Phone Lisa Moses MD Primary Care Provider Delonte richards Encounter Details Date Type Department Care Team Description 10/25/2020 Old Medical Records Medical Records [address] [place] [address] Abstract, Provider Social History Tobacco Use Types [...] on filedocumented in this encounter Care Teams Rotor Assembler Relationship Specialty Start Date End Date Lisa Moses MD PCP - General Pediatrics 12/02/17 documented as of this encounter
--- OUTSIDE RECORDS SUMMARY | 2024-10-27 12:03 | XMS_ITS | Encounter Summary ---
Author Organization [facility] Address [address] [place] [address] Care Team Providers Care Staff Development Educator Name Role Phone Lisa Moses MD Primary Care Provider Delonte richards Encounter Details Date Type Department Care Team Description 05/26/2020 Release of Information Medical Records [address] [place] [address] Abstract, Provider Social History Tobacco Use Types [...] on filedocumented in this encounter Care Teams Staff Development Educator Relationship Specialty Start Date End Date Lisa Moses MD PCP - General Pediatrics 12/02/17 documented as of this encounter
--- OUTSIDE RECORDS SUMMARY | 2024-10-27 12:03 | XMS_ITS | Encounter Summary ---
Author Organization [facility] Address [address] [place] [address] Care Team Providers Care Supervisor Electric Motor Testing Name Role Phone Sylvia Rangel MD Primary Care Provider Kalyani e Lisa Moses MD Primary Care Provider Sharmina ble Encounter Details Date Type Department Care Team Description 08/11/2014 Night Triage Doc Medical Records [address] [place] [id number] Abstract, Provider Social History Tobacco Use Types [...] filedocumented in this encounter Care Teams Supervisor Electric Motor Testing Relationship Specialty Start Date End Date Sylvia Rangel MD PCP - General 02 12/01/17 Lisa Moses MD PCP - General Pediatrics 12/02/17 documented as of this encounter
--- OUTSIDE RECORDS SUMMARY | 2024-10-27 12:03 | XMS_ITS | Encounter Summary ---
Author Organization [facility] Address [address] [place] [address] Care Team Providers Care Appeals Assistant Name Role Phone Lisa Moses MD Primary Care Provider Delonte richards Encounter Details Date Type Department Care Team Description 09/10/2019 Marine Pipefitter Helper Report Medical Records [address] [place] [address] Marya Mckeon MD Social History Tobacco Use [...] on filedocumented in this encounter Care Teams Appeals Assistant Relationship Specialty Start Date End Date Lisa Moses MD PCP - General Pediatrics 12/02/17 documented as of this encounter
--- OUTSIDE RECORDS SUMMARY | 2024-10-27 12:03 | XMS_ITS | Encounter Summary ---
Author Organization [facility] Address [address] [place] [address] Care Team Providers Care Carpenter Packing Name Role Phone Sylvia Rangel MD Primary Care Provider Unavaildexter e Lisa Moses MD Primary Care Provider Unavaila ble Encounter Details Date Type Department Care Team Description 09/24/2011 Citrix Consultant Report Medical Records [address] [place] [address] Bryce Alaniz MD Social History Tobacco Use [...] on filedocumented in this encounter Care Teams Carpenter Packing Relationship Specialty Start Date End Date Sylvia Rangel MD PCP - General 02 12/01/17 Lisa Moses MD PCP - General Pediatrics 12/02/17 documented as of this encounter
--- OUTSIDE RECORDS SUMMARY | 2024-10-27 12:03 | XMS_ITS | Encounter Summary ---
Author Organization [facility] Address [address] [place] [address] Care Team Providers Care Motorman/Woman Name Role Phone Sylvia Rangel MD Primary Care Provider Kalyani e Lisa Moses MD Primary Care Provider Sharmina ble Encounter Details Date Type Department Care Team Description 07/19/2012 Night Triage Doc Medical Records [address] [place] [address] Abstract, Provider Social History Tobacco Use Types [...] on filedocumented in this encounter Care Teams Motorman/Woman Relationship Specialty Start Date End Date Sylvia Rangel MD PCP - General 02 12/01/17 Lisa Moses MD PCP - General Pediatrics 12/02/17 documented as of this encounter
--- OUTSIDE RECORDS SUMMARY | 2024-10-27 12:03 | XMS_ITS | Encounter Summary ---
Author Organization [facility] Address [address] [place] [address] Care Team Providers Care Wet Inspector Optical Glass Name Role Phone Lisa Moses MD Primary Care Provider Delonte richards Encounter Details Date Type Department Care Team Description 05/13/2019 Physicians And Surgeons Report Medical Records [address] [place] [address] Abstract, Provider Social History Tobacco Use Types [...] on filedocumented in this encounter Care Teams Wet Inspector Optical Glass Relationship Specialty Start Date End Date Lisa Moses MD PCP - General Pediatrics 12/02/17 documented as of this encounter
--- OUTSIDE RECORDS SUMMARY | 2024-10-27 12:03 | XMS_ITS | Encounter Summary ---
Author Organization [facility] Address [address] [place] [address] Care Team Providers Care Correctional Case Records Supervisor Name Role Phone Sylvia Rangel MD Primary Care Provider Kalyani e Lisa Moses MD Primary Care Provider Sharmina ble Encounter Details Date Type Department Care Team Description 02/08/2017 Release of Information Medical Records [address] [place] [address] Abstract, Provider Social History Tobacco Use Types [...] on filedocumented in this encounter Care Teams Correctional Case Records Supervisor Relationship Specialty Start Date End Date Sylvia Rangel MD PCP - General 02 12/01/17 Lisa Moses MD PCP - General Pediatrics 12/02/17 documented as of this encounter
--- OUTSIDE RECORDS SUMMARY | 2024-10-27 12:03 | XMS_ITS | Encounter Summary ---
Author Organization [facility] Address [address] [place] [address] Care Team Providers Care Vacuum Pan Operator Name Role Phone Lisa Moses MD Primary Care Provider Unavaila ble Reason for Visit * Reason Onset Date Comments Qa Intern Feedback 03/30/2020 pediatric surger y Encounter Details Date Type Department Care Team Description 03/30/2020 Telephone Pediatrics - [address] [address] Angelina Call RNCPNP Qa Intern Feedback (pediatric surgery) Social History Tobacco Use [...] on filedocumented in this encounter Care Teams Vacuum Pan Operator Relationship Specialty Start Date End Date Lisa Moses MD PCP - General Pediatrics 12/02/17 documented as of this encounter
--- OUTSIDE RECORDS SUMMARY | 2024-10-27 12:03 | XMS_ITS | Encounter Summary ---
Author Organization [facility] Address [address] [place] [address] Care Team Providers Care Stock Unloader Name Role Phone Lisa Moses MD Primary Care Provider Unavaila ble Reason for Referral * EXTERNAL (Routine) - Authorized/Booked Specialty Diagnoses / Procedures Referred By Sánchez vogel Referred To Contact Neurology Procedures REFERRAL TO NEUROLOGY Lisa Moses MD [address] [place] [id number] [place] [address] [facility] [address], [address] [place] [id number] Referral ID Status Reason Start Date Expiration Date V isits Requested Visits Authorized SEE NOTE Authorized/B ooked 06/11/2019 09/12/2019 1 1 Reason for Visit * Reason Onset Date Comments Circuit Tester Feedback 06/11/2019 Dr. Merrill Encounter Details Date Type Department Care Team Description 06/11/2019 Telephone Adult Medicine - [place] [address] [place] [address] Lisa Moses MD Circuit Tester Feedback (Dr. Merrill) Social History Tobacco Use [...] on filedocumented in this encounter Care Teams Stock Unloader Relationship Specialty Start Date End Date Lisa Moses MD PCP - General Pediatrics 12/02/17 documented as of this encounter
--- OUTSIDE RECORDS SUMMARY | 2024-10-27 12:03 | XMS_ITS | Encounter Summary ---
Author Organization [facility] Address [address] [place] [address] Care Team Providers Care Correction Officer [place] Name Role Phone Lisa Moses MD Primary Care Provider Unavaila ble Reason for Visit * Reason Onset Date Comments Blood Tester Feedback 07/07/2019 [facility] Encounter Details Date Type Department Care Team Description 07/07/2019 Telephone Pediatrics - [address] [address] Angelina Call RNCPNP Blood Tester Feedback ([facility]) Social History Tobacco Use Types Packs/Day Years Used Date Smoking Tobacco: Never Smokeless Tobacco: Never Alcohol Use Standard Drinks/Week Comments No 0 (1 standard drink = 0.6 oz pur e alcohol) Sex Assigned at Date Recorded Not on file documented as of this encounter Miscellaneous Notes * Telephone Encounter - Kami Fox - 07/07/2019 2:07 PM EST [facility]- order and [facility] neuropsych testing form inter officed to [facility] pool. Once form is completed and SECURITY POLICE OFFICER receives it back the completed form will be faxed to Genevieve at [facility].Genevieve will contact the patient with appointment information. Kami Tomas Referrals Department documented in this encounter Plan of Treatment Not on file documented as of this encounter Visit Diagnoses Not on filedocumented in this encounter Care Teams Correction Officer [place] [facility] Relationship Specialty Start Date End Date Lisa Moses MD PCP - General Pediatrics 12/02/17 documented as of this encounter
--- OUTSIDE RECORDS SUMMARY | 2024-10-27 12:03 | XMS_ITS | Encounter Summary ---
Author Organization [facility] Address [address] [place] [address] Care Team Providers Care Vaccine Manager Name Role Phone Sylvia Rangel MD Primary Care Provider Unavaildexter e Lisa Moses MD Primary Care Provider Sharmina ble Encounter Details Date Type Department Care Team Description 05/02/2015 [facility] Medical Records [address] [place] [address] Dominic Merrill Social History Tobacco Use Types [...] on filedocumented in this encounter Care Teams Vaccine Manager Relationship Specialty Start Date End Date Sylvia Ragnel MD PCP - General 02 12/01/17 Lisa Moses MD PCP - General Pediatrics 12/02/17 documented as of this encounter
--- OUTSIDE RECORDS SUMMARY | 2024-10-27 12:03 | XMS_ITS | Encounter Summary ---
Author Organization [facility] Address [address] [place] [address] Care Team Providers Care Senior Animator Name Role Phone Sylvia Rangel MD Primary Care Provider Unavaildexter e Lisa Moses MD Primary Care Provider Sharmina maurice Encounter Details Date Type Department Care Team Description 07/27/2014 Individual Pension Consultant Report Medical Records [address] [place] [address] Dominic Merrill Social History Tobacco Use Types [...] on filedocumented in this encounter Care Teams Senior Animator Relationship Specialty Start Date End Date Sylvia Rangel MD PCP - General 02 12/01/17 Lisa Moses MD PCP - General Pediatrics 12/02/17 documented as of this encounter
--- OUTSIDE RECORDS SUMMARY | 2024-10-27 12:03 | XMS_ITS | Encounter Summary ---
Author Organization [facility] Address [address] [place] [address] Care Team Providers Care Rubber Goods Cutter Finisher Name Role Phone Lisa Moses MD Primary Care Provider Unavaila ble Reason for Visit * Reason Onset Date Comments School note 06/23/2020 Encounter Details Date Type Department Care Team Description 06/23/2020 Telephone Pediatrics - [address] [address] Angelina Call RNCPNP School note Social History [...] on filedocumented in this encounter Care Teams Rubber Goods Cutter Finisher Relationship Specialty Start Date End Date Lisa Moses MD PCP - General Pediatrics 12/02/17 documented as of this encounter
--- OUTSIDE RECORDS SUMMARY | 2024-10-27 12:03 | XMS_ITS | Encounter Summary ---
Author Organization [facility] Address [address] [place] [address] Care Team Providers Care Tractor Crane Operator Name Role Phone Sylvia Rangel MD Primary Care Provider Unavaildexter e Lisa Moses MD Primary Care Provider Unavaila ble Encounter Details Date Type Department Care Team Description 01/15/2017 Nutrition Specialist Report Medical Records [address] [place] [address] Dinorah Palacios Social History Tobacco Use Types [...] on filedocumented in this encounter Care Teams Tractor Crane Operator Relationship Specialty Start Date End Date Sylvia Rangel MD PCP - General 02 12/01/17 Lisa Moses MD PCP - General Pediatrics 12/02/17 documented as of this encounter
== END 2024-10-27 10:14 | disposition home or self-care (01) ==
LOC: HO.LABR 10:13
PROVIDERS: PCP Internal Medicine; Visit Provider Psychiatry & Neurology Psychiatry
DX: Z79.899 Other long term (current) drug therapy (principal)
CPT/HCPCS: 36415; 85025

== ENCOUNTER 2024-11-02 17:05 | Emergency (ER) | payer OTHER, SELFPAY ==
[2024-11-02 17:07] VITALS: BP 130/86; PULSE 135; RESP 20; TEMP 36.7; O2SAT 98; BMI 44.9
--- NOTE | 2024-11-02 17:10 | ED_ITS ---
HPI - General Adult General Chief complaint: Nausea/Vomiting/Diarrhea Stated complaint: vomiting Related Data Home Medications ?Medication ?Instructions ?Recorded ?Confirmed lamotrigine 25 mg tablet 25 mg PO DAILY 08/18/24 08/18/24 Previous Rx's ?Medication ?Instructions ?Recorded clozapine 100 mg tablet 100 mg PO BEDTIME 30 days #30 tabs 01/31/24 Allergies Allergy/AdvReac Type Severity Reaction Status Date / Time haloperidol AdvReac EPS Verified 11/02/24 17:11 metoprolol AdvReac Diarrhea Verified 11/02/24 17:11 [facility] Past Medical History Medical History (Updated 11/02/24 @ 20:10 by Mandy Ledesma NP) Morbid obesity Schizophrenia Bipolar disorder in remission Intellectual disability Vitamin D deficiency Vitamin B12 deficiency Hx of ovarian cyst Supraventricular tachycardia by ECG Migraine Surgical History H/O removal of cyst Family History Family History Mother Bipolar disorder Mental health disorder Social History Social History Household Members: Family Household Members Other:: Pt unable to answer questions d/t mental status. Housing: House Housing Other:: at home with mother Are you a primary reproductive healthcare assistant to a significant other at home: No Alcohol intake: never Patient Tobacco Use Status: Never used Tobacco e-Cigarette/Vaping Use: Never Used Second Hand Smoke Exposure: No Substance Use Type: Unknown Advance Directives Date on File: 12/10/23 service: No Current occupational status: unemployed Sexual orientation: Straight/Heterosexual Gender identity: Female Cognitive needs: No Hearing needs: No Vision needs: No Physical Exam ED Vital Signs: Vital Signs - 24 hr 11/02/24 17:07 Temperature 98.1 F Pulse Rate 135 H Respiratory Rate 20 Blood Pressure 130/86 Pulse Oximetry 98 Oxygen Delivery Method Room Air BMI result Body Mass Index 44.9 Course Course Course Narrative: This is a rapid medical exam performed by Venus Ledesma NP: Additional HPI, ROS, PE not included below will be deferred to primary provider. Patient is a 24-year-old female with history of schizophrenia, bipolar disorder in remission, intellectual disability, migraines presenting with complaint of nausea and vomiting since last night. Multiple episodes last night, vomited 2x today but was able to tolerate PO fluids. Denies abdominal pain. Plan: viral swab, labs Medical Decision Making Lab Data 11/02/24 17:28 11/02/24 17:28 Labs: Lab Results 11/02/24 Range/Units 17:28 WBC 10.1 (4.8-10.8) X10*3/uL RBC 4.92 (4.20-5.50) X10*6/uL Hgb 13.4 (12.0-16.0) g/dl Hct 40.3 (37.0-47.0) % MCV 81.9 (80.0-98.0) fL MCH 27.2 (27.0-33.0) pg MCHC 33.3 (31.0-35.0) g/dl RDW 15.3 (11.0-16.0) % Plt Count 453 H (160-400) X10*3/uL MPV 9.5 (9.4-12.3) fL Immature Gran % (Auto) 0.4 (0.0-0.4) % Neut % (Auto) 65.8 (45-73) % Lymph % (Auto) 25.5 (20-40) % [place] % (Auto) 6.9 (2-11) % Eos % (Auto) 0.9 (0-4) % Baso % (Auto) 0.5 (0-2) % Lymph # (Auto) 2.6 (1.2-4.9) X10*3/uL [place] # (Auto) 0.7 (0.1-1.2) X10*3/uL Eos # (Auto) 0.1 (0.0-0.4) X10*3/uL Baso # (Auto) 0.1 (0.0-0.2) X10*3/uL Abs Immat Gran (auto) 0.04 H (0.00-0.03) X10*3/uL Absolute Neuts (auto) 6.7 (2.0-8.3) x10*3/uL Absolute Nucleated RBC 0.000 (0.0-0.012) X10*3/uL Nucleated RBC % (auto) 0.0 (0.0-0.2) /100WBC Sodium 139 (135-145) mmol/L Potassium 3.9 (3.3-5.1) mmol/L Chloride 107 (96-108) mmol/L Carbon Dioxide 24 (22-29) mmol/L Anion Gap 12 (12-20) BUN 6 L (9-16) mg/dL Creatinine 0.64 (0.5-1.4) mg/dL Estim Creat Clear Calc 150.2 Estimated GFR > 60 Random Glucose 98 (60-115) mg/dL Calcium 9.0 (8.4-10.2) mg/dL Magnesium 2.0 (1.6-2.6) mg/dL Total Bilirubin 0.3 (0.0-1.0) mg/dL AST 20 (5-31) U/L ALT 10 (0-31) U/L Alkaline Phosphatase 161 H (39-117) U/L Total Protein 7.8 (6.5-8.0) g/dL Albumin 4.1 (3.5-5.0) g/dL Beta HCG, Quant < 2 mIU/mL Influenza Type A (PCR) NEGATIVE (Negative) Influenza Type B (PCR) NEGATIVE (Negative) RSV RNA Qual (PCR) NEGATIVE (Negative) SARS-CoV-2 RNA (RT-PCR) NEGATIVE (Negative) Discharge Plan Discharge Clinical Impression: Nausea & vomiting Patient Disposition: Left W/O Completing Treatment Prescriptions: No Action clozapine 100 mg tablet 100 mg PO BEDTIME 30 Days Qty: 30 0RF lamotrigine 25 mg tablet 25 mg PO DAILY Print Language: Czech
[2024-11-02 17:41] LABS: Basophils Absolute Auto 0.1 X10*3/uL (0.0-0.2); Basophils Percent Auto 0.5 % (0-2); Eosinophils Absolute Auto 0.1 X10*3/uL (0.0-0.4); Eosinophils Percent Auto 0.9 % (0-4); Hematocrit 40.3 % (37.0-47.0); Hemoglobin 13.4 g/dl (12.0-16.0); Imm Gran Abs Auto 0.04 X10*3/uL (0.00-0.03); Imm Gran Pct Auto 0.4 % (0.0-0.4); Lymphocytes Absolute Auto 2.6 X10*3/uL (1.2-4.9); Lymphocytes Percent Auto 25.5 % (20-40); MANUAL DIFF FLAG NO; Mean Corpuscular HGB Conc 33.3 g/dl (31.0-35.0); Mean Corpuscular Hemoglobin 27.2 pg (27.0-33.0); Mean Corpuscular Volume 81.9 fL (80.0-98.0); Mean Platelet Volume 9.5 fL (9.4-12.3); Monocytes Absolute Auto 0.7 X10*3/uL (0.1-1.2); Monocytes Percent Auto 6.9 % (2-11); Neutrophils Absolute Auto 6.7 x10*3/uL (2.0-8.3); Neutrophils Percent Auto 65.8 % (45-73); Platelet Count 453 X10*3/uL (160-400); Red Blood Count 4.92 X10*6/uL (4.20-5.50); Red Cell Distribution Width 15.3 % (11.0-16.0); White Blood Count 10.1 X10*3/uL (4.8-10.8)
[2024-11-02 18:07] LABS: Alanine Aminotransferase 10 U/L (0-31); Albumin Level 4.1 g/dL (3.5-5.0); Alkaline Phosphatase 161 U/L (39-117); Anion Gap 12 (12-20); Aspartate Amino Transferase 20 U/L (5-31); Bilirubin Total 0.3 mg/dL (0.0-1.0); Blood Urea Nitrogen 6 mg/dL (9-16); Carbon Dioxide 24 mmol/L (22-29); Chloride 107 mmol/L (96-108); Creatinine Clr Calc Pharmacy 150.2; Estimated Glomerular Filt Rate > 60; Glucose Random 98 mg/dL (60-115); HCG Quantitative < 2 mIU/mL; Potassium 3.9 mmol/L (3.3-5.1); Sodium 139 mmol/L (135-145); Total Protein 7.8 g/dL (6.5-8.0)
[2024-11-02 18:17] LABS: Influenza A PCR NEGATIVE (Negative); Influenza B PCR NEGATIVE (Negative); Resp Syncy Virus RNA Qual PCR NEGATIVE (Negative); SARS COV2 PCR INHOUSE NEGATIVE (Negative)
== END 2024-11-02 20:29 | disposition left against medical advice (07) ==
PROVIDERS: Registered Nurse Emergency; Emergency Provider Emergency Medicine; PCP Internal Medicine
DX: R11.2 Nausea with vomiting, unspecified (principal); Z79.899 Other long term (current) drug therapy; Z03.818 Encounter for observation for suspected exposure to other biological agents ruled out
CPT/HCPCS: 0241U; 80053; 83735; 84702; 85025; 99281; 99283

== ENCOUNTER 2024-11-11 08:41 | Outpatient (REF) | payer OTHER, SELFPAY ==
[2024-11-11 09:03] LABS: MANUAL DIFF FLAG NO
[2024-11-11 09:28] LABS: Basophils Percent Auto 0.4 % (0-2); Eosinophils Absolute Auto 0.1 X10*3/uL (0.0-0.4); Eosinophils Percent Auto 1.3 % (0-4); Hematocrit 40.5 % (37.0-47.0); Hemoglobin 12.8 g/dl (12.0-16.0); Imm Gran Abs Auto 0.01 X10*3/uL (0.00-0.03); Imm Gran Pct Auto 0.1 % (0.0-0.4); Lymphocytes Percent Auto 26.8 % (20-40); Mean Corpuscular HGB Conc 31.6 g/dl (31.0-35.0); Mean Corpuscular Hemoglobin 26.6 pg (27.0-33.0); Monocytes Absolute Auto 0.4 X10*3/uL (0.1-1.2); Monocytes Percent Auto 5.9 % (2-11); Neutrophils Absolute Auto 4.9 x10*3/uL (2.0-8.3); Neutrophils Percent Auto 65.5 % (45-73); Platelet Count 402 X10*3/uL (160-400); Red Blood Count 4.82 X10*6/uL (4.20-5.50); Red Cell Distribution Width 15.2 % (11.0-16.0); White Blood Count 7.4 X10*3/uL (4.8-10.8)
== END 2024-11-11 08:42 | disposition home or self-care (01) ==
LOC: HO.LABR 08:41
PROVIDERS: PCP Internal Medicine; Visit Provider Psychiatry & Neurology Psychiatry
DX: Z79.899 Other long term (current) drug therapy (principal)
CPT/HCPCS: 36415; 85025

== ENCOUNTER 2024-11-25 12:04 | Outpatient (REF) | payer OTHER, SELFPAY ==
[2024-11-25 12:16] LABS: MANUAL DIFF FLAG NO
[2024-11-25 13:10] LABS: Basophils Percent Auto 0.4 % (0-2); Eosinophils Absolute Auto 0.1 X10*3/uL (0.0-0.4); Eosinophils Percent Auto 1.1 % (0-4); Hematocrit 38.7 % (37.0-47.0); Hemoglobin 12.8 g/dl (12.0-16.0); Imm Gran Abs Auto 0.04 X10*3/uL (0.00-0.03); Imm Gran Pct Auto 0.4 % (0.0-0.4); Lymphocytes Percent Auto 21.6 % (20-40); Mean Corpuscular HGB Conc 33.1 g/dl (31.0-35.0); Mean Corpuscular Hemoglobin 27.1 pg (27.0-33.0); Mean Platelet Volume 9.9 fL (9.4-12.3); Monocytes Absolute Auto 0.6 X10*3/uL (0.1-1.2); Monocytes Percent Auto 6.3 % (2-11); Neutrophils Absolute Auto 6.5 x10*3/uL (2.0-8.3); Neutrophils Percent Auto 70.2 % (45-73); Platelet Count 425 X10*3/uL (160-400); Red Blood Count 4.72 X10*6/uL (4.20-5.50); Red Cell Distribution Width 15.2 % (11.0-16.0); White Blood Count 9.3 X10*3/uL (4.8-10.8)
== END 2024-11-25 12:05 | disposition home or self-care (01) ==
LOC: HO.LABR 12:04
PROVIDERS: PCP Internal Medicine; Visit Provider Psychiatry & Neurology Psychiatry
DX: Z79.899 Other long term (current) drug therapy (principal)
CPT/HCPCS: 36415; 85025

== ENCOUNTER 2024-12-09 09:30 | Outpatient (REF) | payer OTHER, SELFPAY ==
[2024-12-09 09:43] LABS: MANUAL DIFF FLAG NO
--- OUTSIDE RECORDS SUMMARY | 2024-12-09 10:37 | XMS_ITS | Encounter Summary ---
Author Organization [facility] Address [address] [place] [address] Care Team Providers Care Preventive Medicine Officer Name Role Phone Sylvia Rangel MD Primary Care Provider Kalyani e Lisa Moses MD Primary Care Provider Sharmina maurice Encounter Details Date Type Department Care Team Description 11/13/2011 Car Deliverer Report Medical Records [address] [place] [address] Dominic Merrill Social History Tobacco Use Types [...] on filedocumented in this encounter Care Teams Preventive Medicine Officer Relationship Specialty Start Date End Date Sylvia Rangel MD PCP - General 02 12/01/17 Lisa Moses MD PCP - General Pediatrics 12/02/17 documented as of this encounter
--- OUTSIDE RECORDS SUMMARY | 2024-12-09 10:37 | XMS_ITS | Encounter Summary ---
Author Organization [facility] Address [address] [place] [address] Care Team Providers Care Outside Parts Salesman Name Role Phone Sylvia Rangel MD Primary Care Provider Unavaildexter e Lisa Moses MD Primary Care Provider Unavaila ble Encounter Details Date Type Department Care Team Description 04/19/2015 Associate Scientist Report Medical Records [address] [place] [address] Dominic Merrill Social History Tobacco Use Types [...] on filedocumented in this encounter Care Teams Outside Parts Salesman Relationship Specialty Start Date End Date Sylvia Rangel MD PCP - General 02 12/01/17 Lisa Moses MD PCP - General Pediatrics 12/02/17 documented as of this encounter
--- OUTSIDE RECORDS SUMMARY | 2024-12-09 10:37 | XMS_ITS | Encounter Summary ---
Author Organization [facility] Address [address] [place] [address] Care Team Providers Care Chemistry Lecturer Name Role Phone Sylvia Rangel MD Primary Care Provider Unavaildexter e Lisa Moses MD Primary Care Provider Unavaila ble Encounter Details Date Type Department Care Team Description 12/27/2016 Night Triage Doc Medical Records [address] [place] [address] Abstract, Provider Social History Tobacco Use Types [...] on filedocumented in this encounter Care Teams Chemistry Lecturer Relationship Specialty Start Date End Date Sylvia Rangel MD PCP - General 02 12/01/17 Lisa Moses MD PCP - General Pediatrics 12/02/17 documented as of this encounter
--- OUTSIDE RECORDS SUMMARY | 2024-12-09 10:37 | XMS_ITS | Encounter Summary ---
Author Organization [facility] Address [address] [place] [address] Care Team Providers Care Slip Cover Estimator Name Role Phone Sylvia Rangel MD Primary Care Provider Unavaildexter e Lisa Moses MD Primary Care Provider Unavaila ble Encounter Details Date Type Department Care Team Description 05/12/2015 Manager Wellness Report Medical Records [address] [place] [address] Domniic Merrill Social History Tobacco Use Types Packs/Day [...] on filedocumented in this encounter Care Teams Slip Cover Estimator Relationship Specialty Start Date End Date Sylvia Rangel MD PCP - General 02 12/01/17 Lisa Moses MD PCP - General Pediatrics 12/02/17 documented as of this encounter
--- OUTSIDE RECORDS SUMMARY | 2024-12-09 10:37 | XMS_ITS | Encounter Summary ---
Author Organization [facility] Address [address] [place] [address] Care Team Providers Care Custodian Name Role Phone Sylvia Rangel MD Primary Care Provider Unavaildexter e Lisa Moses MD Primary Care Provider Unavaila ble Encounter Details Date Type Department Care Team Description 07/19/2010 Government Property Inspector Report Medical Records [address] [place] [address] Bryce Alaniz MD Social History Tobacco Use [...] on filedocumented in this encounter Care Teams Custodian Relationship Specialty Start Date End Date Sylvia Rangel MD PCP - General 02 12/01/17 Lisa Moses MD PCP - General Pediatrics 12/02/17 documented as of this encounter
--- OUTSIDE RECORDS SUMMARY | 2024-12-09 10:37 | XMS_ITS | Encounter Summary ---
Author Organization [facility] Address [address] [place] [address] Care Team Providers Care Stick Welder Name Role Phone Sylvia Rangel MD Primary Care Provider Unavaildexter e Lisa Moses MD Primary Care Provider Unavaila ble Encounter Details Date Type Department Care Team Description 02/11/2017 Galvanizing Pot Runner Report Medical Records [address] [place], [place] [id number] [place] [address] For Social History Tobacco Use Types Packs/Day [...] on filedocumented in this encounter Care Teams Stick Welder Relationship Specialty Start Date End Date Sylvia Rangel MD PCP - General 02 12/01/17 Lisa Moses MD PCP - General Pediatrics 12/02/17 documented as of this encounter
--- OUTSIDE RECORDS SUMMARY | 2024-12-09 10:37 | XMS_ITS | Encounter Summary ---
Author Organization [facility] Address [address] [place] [address] Care Team Providers Care Ophthalmic Medical Assistant Name Role Phone Sylvia Rangel MD Primary Care Provider Unavaildexter e Lisa Moses MD Primary Care Provider Sharmina ble Encounter Details Date Type Department Care Team Description 05/02/2015 [facility] Medical Records [address] [place] [address] Dominic Merrill Social History Tobacco Use Types [...] on filedocumented in this encounter Care Teams Ophthalmic Medical Assistant Relationship Specialty Start Date End Date Sylvia Rangel MD PCP - General 02 12/01/17 Lisa Moses MD PCP - General Pediatrics 12/02/17 documented as of this encounter
--- OUTSIDE RECORDS SUMMARY | 2024-12-09 10:37 | XMS_ITS | Encounter Summary ---
Author Organization [facility] Address [address] [place] [address] Care Team Providers Care Apprenticeship Representative Name Role Phone Sylvia Rangel MD Primary Care Provider Unavaildexter e Lisa Moses MD Primary Care Provider Sharmina ble Encounter Details Date Type Department Care Team Description 10/30/2011 [facility] Medical Records [address] [place] [address] Dominic Merrill Social History Tobacco Use Types [...] on filedocumented in this encounter Care Teams Apprenticeship Representative Relationship Specialty Start Date End Date Sylvia Rangel MD PCP - General 02 12/01/17 Lisa Moses MD PCP - General Pediatrics 12/02/17 documented as of this encounter
--- OUTSIDE RECORDS SUMMARY | 2024-12-09 10:37 | XMS_ITS | Encounter Summary ---
Author Organization [facility] Address [address] [place] [address] Care Team Providers Care Level Glass Forming Machine Operator Name Role Phone Lisa Moses MD Primary Care Provider Delonte richards Encounter Details Date Type Department Care Team Description 07/26/2020 Soft Metals Hand Engraver Report Medical Records [address] [place] [address] Abstract, Provider Social History Tobacco Use Types [...] or suspected to have Coronavirus / COVID-19? Unable to assess 06/30/2020 10:43 AM ES T documented as of this encounter Plan of Treatment Not on file documented as of this encounter Visit Diagnoses Not on filedocumented in this encounter Care Teams Level Glass Forming Machine Operator Relationship Specialty Start Date End Date Lisa Moses MD PCP - General Pediatrics 12/02/17 documented as of this encounter
--- OUTSIDE RECORDS SUMMARY | 2024-12-09 10:37 | XMS_ITS | Encounter Summary ---
Author Organization [facility] Address [address] [place] [address] Care Team Providers Care Supervising Fire Marshal Name Role Phone Sylvia Rangel MD Primary Care Provider Unavaildexter e Lisa Moses MD Primary Care Provider Unavaila ble Encounter Details Date Type Department Care Team Description 12/04/2016 Environmental Protection Forester Report Medical Records [address] [place] [address] Abstract, Provider Social History Tobacco Use Types [...] on filedocumented in this encounter Care Teams Supervising Fire Marshal Relationship Specialty Start Date End Date Sylvia Rangel MD PCP - General 02 12/01/17 Lisa Moses MD PCP - General Pediatrics 12/02/17 documented as of this encounter
--- OUTSIDE RECORDS SUMMARY | 2024-12-09 10:37 | XMS_ITS | Encounter Summary ---
Author Organization [facility] Address [address] [place] [address] Care Team Providers Care Manager Fiber Name Role Phone Sylvia Rangel MD Primary Care Provider Lisa Yu MD Primary Care Provider Sharmina ble Reason for Visit * Reason Onset Date Comments DCF 04/15/2015 Encounter Details Date Type Department Care Team Description 04/15/2015 Telephone Pediatrics - [address] [address] Sylvia Rangel MD [facility] Social History Tobacco Use Types Packs/Day Years [...] - 04/18/2015 9:56 AM EDT Cindy from [facility] calling back on 3 patients * Telephone Encounter - Mckenna Borges L.P.N. - 04/18/2015 9:29 AM EDT Left message to call back. * Telephone Encounter - Hortensia Keys R.N. - 04/15/2015 3:55 PM EDT Left message * Telephone Encounter - Shannan Amaya - 04/15/2015 3:16 PM EDT Name and title of caller: Whit from [facility] 51- a on file : 2000 Age: 14 yr. Is this an active 51A case: Yes. Case is currently active. Message forwarded to nurse to provide information. Message forwarded to nurse for follow up documented in this encounter Plan of Treatment Not on file documented as of this encounter Visit Diagnoses Not on filedocumented in this encounter Care Teams Manager Fiber Relationship Specialty Start Date End Date Sylvia Rangel MD PCP - General 02 12/01/17 Lisa Moses MD PCP - General Pediatrics 12/02/17 documented as of this encounter
--- OUTSIDE RECORDS SUMMARY | 2024-12-09 10:37 | XMS_ITS | Encounter Summary ---
Author Organization [facility] Address [address] [place] [address] Care Team Providers Care Hydrometeorological Technician Name Role Phone Lisa Moses MD Primary Care Provider Delonte richards Encounter Details Date Type Department Care Team Description 02/11/2018 Senior Consulting Manager Report Medical Records [address] [place], [place] [id number] [place] [address] Social History Tobacco Use Types Packs/Day Years [...] on filedocumented in this encounter Care Teams Hydrometeorological Technician Relationship Specialty Start Date End Date Lisa Moses MD PCP - General Pediatrics 12/02/17 documented as of this encounter
--- OUTSIDE RECORDS SUMMARY | 2024-12-09 10:37 | XMS_ITS | Encounter Summary ---
Author Organization [facility] Address [address] [place] [address] Care Team Providers Care Entry Level Chemist Name Role Phone Lisa Moses MD Primary Care Provider Delonte richards Encounter Details Date Type Department Care Team Description 05/10/2020 Fulfillment Coordinator Report Medical Records [address] [place] [address] Nghia Caputo Social History Tobacco Use Types [...] on filedocumented in this encounter Care Teams Entry Level Chemist Relationship Specialty Start Date End Date Lisa Moses MD PCP - General Pediatrics 12/02/17 documented as of this encounter
--- OUTSIDE RECORDS SUMMARY | 2024-12-09 10:37 | XMS_ITS | Encounter Summary ---
Author Organization [facility] Address [address] [place] [address] Care Team Providers Care Fashion Designer Name Role Phone Sylvia Rangel MD Primary Care Provider Unavaildexter e Lisa Moses MD Primary Care Provider Unavaila ble Encounter Details Date Type Department Care Team Description 01/24/2015 Night Triage Doc Medical Records [address] [place] [address] Abstract, Provider Social History Tobacco Use Types [...] on filedocumented in this encounter Care Teams Fashion Designer Relationship Specialty Start Date End Date Sylvia Rangel MD PCP - General 02 12/01/17 Lisa Moses MD PCP - General Pediatrics 12/02/17 documented as of this encounter
--- OUTSIDE RECORDS SUMMARY | 2024-12-09 10:37 | XMS_ITS | Encounter Summary ---
Author Organization [facility] Address [address] [place] [address] Care Team Providers Care Lehr Stripper Name Role Phone Lisa Moses MD Primary Care Provider Unavaila ble Reason for Visit * Reason Onset Date Comments School note 06/23/2020 Encounter Details Date Type Department Care Team Description 06/23/2020 Telephone Pediatrics - [address] [address] Angelina Call RNCPNP School note Social History [...] on filedocumented in this encounter Care Teams Lehr Stripper Relationship Specialty Start Date End Date Lisa Moses MD PCP - General Pediatrics 12/02/17 documented as of this encounter
--- OUTSIDE RECORDS SUMMARY | 2024-12-09 10:37 | XMS_ITS | Encounter Summary ---
Author Organization [facility] Address [address] [place] [address] Care Team Providers Care Electrical Tester Name Role Phone Sylvia Rangel MD Primary Care Provider Unavaildexter e Lisa Moses MD Primary Care Provider Unavaila ble Encounter Details Date Type Department Care Team Description 09/24/2011 Pellet Press Operator Report Medical Records [address] [place] [address] Bryce Alaniz MD Social History Tobacco Use [...] on filedocumented in this encounter Care Teams Electrical Tester Relationship Specialty Start Date End Date Sylvia Rangel MD PCP - General 02 12/01/17 Lisa Moses MD PCP - General Pediatrics 12/02/17 documented as of this encounter
--- OUTSIDE RECORDS SUMMARY | 2024-12-09 10:37 | XMS_ITS | Encounter Summary ---
Author Organization [facility] Address [address] [place] [address] Care Team Providers Care Silica Filter Operator Name Role Phone Lisa Moses MD Primary Care Provider Delonte richards Encounter Details Date Type Department Care Team Description 10/17/2020 Sales Merchandising Specialist Report Medical Records [address] [place] [address] Social History Tobacco Use Types Packs/Day Years [...] on filedocumented in this encounter Care Teams Silica Filter Operator Relationship Specialty Start Date End Date Lisa Moses MD PCP - General Pediatrics 12/02/17 documented as of this encounter
--- OUTSIDE RECORDS SUMMARY | 2024-12-09 10:37 | XMS_ITS | Encounter Summary ---
Author Organization [facility] Address [address] [place] [address] Care Team Providers Care Fiber Optic Technician Name Role Phone Sylvia Rangel MD Primary Care Provider Unavaildexter e Lisa Moses MD Primary Care Provider Unavaila ble Encounter Details Date Type Department Care Team Description 01/30/2010 Vice President Education Report Medical Records [address] [place] [address] Bryce Alaniz MD Social History Tobacco Use [...] on filedocumented in this encounter Care Teams Fiber Optic Technician Relationship Specialty Start Date End Date Sylvia Rangel MD PCP - General 02 12/01/17 Lisa Moses MD PCP - General Pediatrics 12/02/17 documented as of this encounter
--- OUTSIDE RECORDS SUMMARY | 2024-12-09 10:37 | XMS_ITS | Encounter Summary ---
Author Organization [facility] Address [address] [place] [address] Care Team Providers Care Computer Bookkeeper Name Role Phone Sylvia Rangel MD Primary Care Provider Kalyani e Lisa Moses MD Primary Care Provider Sharmina ble Encounter Details Date Type Department Care Team Description 01/11/2017 Release of Information Medical Records [address] [place] [address] Abstract, Provider Social History Tobacco Use Types [...] on filedocumented in this encounter Care Teams Computer Bookkeeper Relationship Specialty Start Date End Date Sylvia Rangel MD PCP - General 02 12/01/17 Lisa Moses MD PCP - General Pediatrics 12/02/17 documented as of this encounter
--- OUTSIDE RECORDS SUMMARY | 2024-12-09 10:37 | XMS_ITS | Encounter Summary ---
Author Organization [facility] Address [address] [place] [address] Care Team Providers Care Weight Reduction Specialist Name Role Phone Sylvia Rangel MD Primary Care Provider Unavaildexter e Lisa Moses MD Primary Care Provider Unavaila ble Encounter Details Date Type Department Care Team Description 09/29/2015 Patient Flow Coordinator Report Medical Records [address] [place] [address] Dominic Merrill Social History Tobacco Use Types [...] on filedocumented in this encounter Care Teams Weight Reduction Specialist Relationship Specialty Start Date End Date Sylvia Rangel MD PCP - General 02 12/01/17 Lisa Moses MD PCP - General Pediatrics 12/02/17 documented as of this encounter
--- OUTSIDE RECORDS SUMMARY | 2024-12-09 10:37 | XMS_ITS | Encounter Summary ---
Author Organization [facility] Address [address] [place] [address] Care Team Providers Care Forming Process Worker Name Role Phone Lisa Moses MD Primary Care Provider Delonte richards Encounter Details Date Type Department Care Team Description 05/11/2019 Orders Only Lab - [address] [address] Paresh Begum MD Routine general medical examination [...] Primary documented in this encounter Care Teams Forming Process Worker Relationship Specialty Start Date End Date Lisa Moses MD PCP - General Pediatrics 12/02/17 documented as of this encounter
--- OUTSIDE RECORDS SUMMARY | 2024-12-09 10:37 | XMS_ITS | Encounter Summary ---
Author Organization [facility] Address [address] [place] [address] Care Team Providers Care General Production Manager Name Role Phone Sylvia Rangel MD Primary Care Provider Unavaildexter e Lisa Moses MD Primary Care Provider Sharmina maurice Encounter Details Date Type Department Care Team Description 07/27/2014 Getter Welder Report Medical Records 4 [place] [address] Dominic Merrill Social History Tobacco Use Types [...] on filedocumented in this encounter Care Teams General Production Manager Relationship Specialty Start Date End Date Sylvia Rangel MD PCP - General 02 12/01/17 Lisa Moses MD PCP - General Pediatrics 12/02/17 documented as of this encounter
--- OUTSIDE RECORDS SUMMARY | 2024-12-09 10:37 | XMS_ITS | Encounter Summary ---
Author Organization [facility] Address [address] [place] [address] Care Team Providers Care Resource Forester Name Role Phone Lisa Moses MD Primary Care Provider Delonte richards Encounter Details Date Type Department Care Team Description 05/13/2019 Talent Advisor Report Medical Records [address] [place] [address] Abstract, Provider Social History Tobacco Use Types [...] on filedocumented in this encounter Care Teams Resource Forester Relationship Specialty Start Date End Date Lisa Moses MD PCP - General Pediatrics 12/02/17 documented as of this encounter
--- OUTSIDE RECORDS SUMMARY | 2024-12-09 10:37 | XMS_ITS | Encounter Summary ---
Author Organization [facility] Address [address] [place] [address] Care Team Providers Care Kiln Pusher Name Role Phone Lisa Moses MD Primary Care Provider Delonte richards Encounter Details Date Type Department Care Team Description 04/08/2020 Account Coordinator Report Medical Records [address] [place] [address] Nghia Caputo Social History Tobacco Use Types [...] filedocumented in this encounter Care Teams Kiln Pusher Relationship Specialty Start Date End Date Lisa Moses MD PCP - General Pediatrics 12/02/17 documented as of this encounter
--- OUTSIDE RECORDS SUMMARY | 2024-12-09 10:37 | XMS_ITS | Encounter Summary ---
Author Organization [facility] Address [address] [place] [address] Care Team Providers Care Director Of Physician Practices Name Role Phone Sylvia Rangel MD Primary Care Provider Unavaildexter e Lisa Moses MD Primary Care Provider Unavaila ble Encounter Details Date Type Department Care Team Description 01/15/2017 Ocean Lifeguard Specialist Report Medical Records [address] [place] [address] Dinorah Palacios Social History Tobacco Use Types [...] on filedocumented in this encounter Care Teams Director Of Physician Practices Relationship Specialty Start Date End Date Sylvia Rangel MD PCP - General 02 12/01/17 Lisa Moses MD PCP - General Pediatrics 12/02/17 documented as of this encounter
--- OUTSIDE RECORDS SUMMARY | 2024-12-09 10:37 | XMS_ITS | Encounter Summary ---
Author Organization [facility] Address [address] [place] [address] Care Team Providers Care Embedded Software Programmer Name Role Phone Sylvia Rangel MD Primary Care Provider Unavaildexter e Lisa Moses MD Primary Care Provider Unavaila ble Encounter Details Date Type Department Care Team Description 08/01/2011 Pit Furnace Operator Report Medical Records [address] [place] [address] Chandana Bustamante MD Social History Tobacco Use [...] on filedocumented in this encounter Care Teams Embedded Software Programmer Relationship Specialty Start Date End Date Sylvia aRngel MD PCP - General 02 12/01/17 Lisa Moses MD PCP - General Pediatrics 12/02/17 documented as of this encounter
--- OUTSIDE RECORDS SUMMARY | 2024-12-09 10:37 | XMS_ITS | Encounter Summary ---
Author Organization [facility] Address [address] [place] [address] Care Team Providers Care Rn Peritoneal Dialysis Name Role Phone Lisa Moses MD Primary Care Provider Delonte richards Encounter Details Date Type Department Care Team Description 07/21/2018 [facility] Medical Records 4 [place] [address] Abstract, Provider Social History Tobacco Use Types [...] on filedocumented in this encounter Care Teams Rn Peritoneal Dialysis Relationship Specialty Start Date End Date Lisa Moses MD PCP - General Pediatrics 12/02/17 documented as of this encounter
--- OUTSIDE RECORDS SUMMARY | 2024-12-09 10:37 | XMS_ITS | Encounter Summary ---
Author Organization [facility] Address [address] [place] [address] Care Team Providers Care Entry Engineer Name Role Phone Lisa Moses MD Primary Care Provider Unavaila ble Reason for Visit * Reason Comments E-prescribe Rx Request Encounter Details Date Type Department Care Team Description 01/27/2022 Refill OBGYN - [place] [address] [place] [address] Alexander Mcdonald, DO E-prescribe Rx Request Social [...] EDT WHEN WAS THE PATIENTS LAST ANNUAL PLANT PATHOLOGIST EXAM? 01/12/21 office visit Does patient have [...] the end of the day? NO Payor: [employer] FFS / Plan: [employer] [place] / Product Type: MEDICAID RISK documented in this encounter Plan of Treatment Not on file documented as of this encounter Visit Diagnoses Not on filedocumented in this encounter Care Teams Entry Engineer Relationship Specialty Start Date End Date Lisa Moses MD PCP - General Pediatrics 12/02/17 documented as of this encounter
--- OUTSIDE RECORDS SUMMARY | 2024-12-09 10:37 | XMS_ITS | Encounter Summary ---
Author Organization [facility] Address [address] [place] [address] Care Team Providers Care Burner Hand Name Role Phone Lisa Moses MD Primary Care Provider Unavaila ble Reason for Visit * Reason Onset Date Comments Headache 05/07/2018 Encounter Details Date Type Department Care Team Description 05/07/2018 Telephone Pediatrics - [address] [address] Lisa Moses MD Headache Social History Tobacco [...] until speaks with Insurance. Mom will call [facility] to straighten out insurance. * Telephone Encounter [...] on filedocumented in this encounter Care Teams Burner Hand Relationship Specialty Start Date End Date Lisa Moses MD PCP - General Pediatrics 12/02/17 documented as of this encounter
--- OUTSIDE RECORDS SUMMARY | 2024-12-09 10:38 | XMS_ITS | Encounter Summary ---
Author Organization [facility] Address [address] [place] [address] Care Team Providers Care Oil Expeller Operator Name Role Phone Lisa Moses MD Primary Care Provider Unavaila ble Reason for Visit * Reason Onset Date Comments Flight Test Engineer Feedback 07/07/2019 [facility] Encounter Details Date Type Department Care Team Description 07/07/2019 Telephone Pediatrics - [address] [address] Angelina Call RNCPNP Flight Test Engineer Feedback ([facility]) Social History Tobacco Use Types Packs/Day Years Used Date Smoking Tobacco: Never Smokeless Tobacco: Never Alcohol Use Standard Drinks/Week Comments No 0 (1 standard drink = 0.6 oz pur e alcohol) Sex Assigned at Date Recorded Not on file documented as of this encounter Miscellaneous Notes * Telephone Encounter - Kami Fox - 07/07/2019 2:07 PM EST [facility]- order and [facility] neuropsych testing form inter officed to [facility] Triage pool. Once form is completed and FARM TRACTOR OPERATOR receives it back the completed form will be faxed to Genevieve at [facility].Genevieve will contact the patient with appointment information. Kami Tomas Referrals Department documented in this encounter Plan of Treatment Not on file documented as of this encounter Visit Diagnoses Not on filedocumented in this encounter Care Teams Oil Expeller Operator Relationship Specialty Start Date End Date Lisa Moses MD PCP - General Pediatrics 12/02/17 documented as of this encounter
--- OUTSIDE RECORDS SUMMARY | 2024-12-09 10:38 | XMS_ITS | Encounter Summary ---
Author Organization [facility] Address [address] [place] [address] Care Team Providers Care Biomass Power Plant Manager Name Role Phone Lisa Moses MD Primary Care Provider Unavaila ble Reason for Visit * Reason Onset Date Comments Teller Vault Feedback 07/09/2019 Pedi Gastro Encounter Details Date Type Department Care Team Description 07/09/2019 Telephone Pediatrics - [address] [address] Lisa Moses MD Teller Vault Feedback (Pedi Gastro) Social History Tobacco Use [...] gastro for chronic vomiting within 2-3 weeks. [facility] gastro does not have any appointments available as they are working on releasing the providers' schedules. A message was sent to clinical staff for booking and they are unable to find an opening within the appropriate timeframe. They have advised that the ordering phyisician calls the secretary [place] commissioners doctor (Dr Peguero) to discuss the urgency of the referral and determine if he is able to see the patient.Please call [facility] at [phone]. Thank you Ivelisse Referrals Transmission Repairer documented in this encounter Plan of Treatment Not on file documented as of this encounter Visit Diagnoses Not on filedocumented in this encounter Care Teams Biomass Power Plant Manager Relationship Specialty Start Date End Date Lisa Moses MD PCP - General Pediatrics 12/02/17 documented as of this encounter
--- OUTSIDE RECORDS SUMMARY | 2024-12-09 10:38 | XMS_ITS | Encounter Summary ---
Author Organization [facility] Address [address] [place] [address] Care Team Providers Care Sales Market Leader Name Role Phone Lisa Moses MD Primary Care Provider Delotne richards Encounter Details Date Type Department Care Team Description 07/24/2019 [facility] Medical Records [address] [place] [address] Social History Tobacco Use Types Packs/Day Years [...] on filedocumented in this encounter Care Teams Sales Market Leader Relationship Specialty Start Date End Date Lisa Moses MD PCP - General Pediatrics 12/02/17 documented as of this encounter
--- OUTSIDE RECORDS SUMMARY | 2024-12-09 10:38 | XMS_ITS | Encounter Summary ---
Author Organization [facility] Address [address] [place] [address] Care Team Providers Care Resume Specialist Name Role Phone Lisa Moses MD Primary Care Provider Unavaila ble Reason for Visit * Reason Onset Date Comments Pie [place]omer Feedback 07/07/2019 neuropsych or be havioral health Encounter Details Date Type Department Care Team Description 07/07/2019 Telephone Pediatrics - [address] [address] Angelina Call RNCPNP Pie [place] Feedback (neuropsych or behavioral health) Social History Tobacco Use Types Packs/Day Years Used Date Smoking Tobacco: Never Smokeless Tobacco: Never Alcohol Use Standard Drinks/Week Comments No 0 (1 standard drink = 0.6 oz pur e alcohol) Sex Assigned at Date Recorded Not on file documented as of this encounter Miscellaneous Notes * Telephone Encounter - EMELY Benjamin - 07/07/2019 1:38 PM EST yes looking for neurosych testing as recommended by current therapist at [facility] * Telephone Encounter - Kami Fox - 07/07/2019 1:13 PM EST Angelina, You recently placed a neuropsych referral for this patient to go to [facility] behavioral health for clarify diagnosis/ EDWIN/depression/behavior concerns . Are you looking for the patient to have neurosych testing as there is no documentation regarding testing or did you want to refer to behavioralhealth possibly? Please review and advise. Thank you, Kami Referrals Department documented in this encounter Plan of Treatment Not on file documented as of this encounter Visit Diagnoses Not on filedocumented in this encounter Care Teams Resume Specialist Relationship Specialty Start Date End Date Lisa Moses MD PCP - General Pediatrics 12/02/17 documented as of this encounter
--- OUTSIDE RECORDS SUMMARY | 2024-12-09 10:38 | XMS_ITS | Encounter Summary ---
Author Organization [facility] Address [address] [place] [address] Care Team Providers Care Seismograph Operator Helper Name Role Phone Lisa Moses MD Primary Care Provider Unavaila ble Reason for Visit * Reason Onset Date Comments Colliery Clerk Feedback 03/30/2020 pediatric surger y Encounter Details Date Type Department Care Team Description 03/30/2020 Telephone Pediatrics - [address] [address] Angelina Call RNCPNP Colliery Clerk Feedback (pediatric surgery) Social History Tobacco Use [...] on filedocumented in this encounter Care Teams Seismograph Operator Helper Relationship Specialty Start Date End Date Lisa Moses MD PCP - General Pediatrics 12/02/17 documented as of this encounter
--- OUTSIDE RECORDS SUMMARY | 2024-12-09 10:38 | XMS_ITS | Encounter Summary ---
Author Organization [facility] Address [address] [place] [address] Care Team Providers Care Landscape Laborer Name Role Phone Lisa Moses MD Primary Care Provider Delonte richards Encounter Details Date Type Department Care Team Description 07/14/2019 Non Garment Sewing Machine Operator Report Medical Records [address] [place] [address] Social History Tobacco Use Types Packs/Day Years [...] on filedocumented in this encounter Care Teams Landscape Laborer Relationship Specialty Start Date End Date Lisa Moses MD PCP - General Pediatrics 12/02/17 documented as of this encounter
--- OUTSIDE RECORDS SUMMARY | 2024-12-09 10:38 | XMS_ITS | Encounter Summary ---
Author Organization [facility] Address [address] [place] [address] Care Team Providers Care Software Developer Manager Name Role Phone Lisa Moses MD Primary Care Provider Delonte richards Encounter Details Date Type Department Care Team Description 07/09/2019 Digital Marketing Assistant Report Medical Records [address] [place] [address] Marya Mckeon MD Social History Tobacco Use [...] filedocumented in this encounter Care Teams Software Developer Manager Relationship Specialty Start Date End Date Lisa Moses MD PCP - General Pediatrics 12/02/17 documented as of this encounter
--- OUTSIDE RECORDS SUMMARY | 2024-12-09 10:38 | XMS_ITS | Encounter Summary ---
Author Organization [facility] Address [address] [place] [address] Care Team Providers Care Service Station Equipment Mechanic Name Role Phone Lisa Moses MD Primary Care Provider Delonte richards Encounter Details Date Type Department Care Team Description 05/26/2020 Release of Information Medical Records [address] [place] [address] Abstract, Provider Social History Tobacco Use Types [...] filedocumented in this encounter Care Teams Service Station Equipment Mechanic Relationship Specialty Start Date End Date Lisa Moses MD PCP - General Pediatrics 12/02/17 documented as of this encounter
[2024-12-09 10:48] LABS: Basophils Percent Auto 0.6 % (0-2); Eosinophils Absolute Auto 0.1 X10*3/uL (0.0-0.4); Eosinophils Percent Auto 1.8 % (0-4); Hematocrit 39.6 % (37.0-47.0); Hemoglobin 13.1 g/dl (12.0-16.0); Imm Gran Abs Auto 0.03 X10*3/uL (0.00-0.03); Imm Gran Pct Auto 0.4 % (0.0-0.4); Lymphocytes Absolute Auto 2.2 X10*3/uL (1.2-4.9); Lymphocytes Percent Auto 30.7 % (20-40); Mean Corpuscular HGB Conc 33.1 g/dl (31.0-35.0); Mean Corpuscular Hemoglobin 27.3 pg (27.0-33.0); Mean Corpuscular Volume 82.7 fL (80.0-98.0); Mean Platelet Volume 10.3 fL (9.4-12.3); Monocytes Absolute Auto 0.5 X10*3/uL (0.1-1.2); Monocytes Percent Auto 7.2 % (2-11); Neutrophils Absolute Auto 4.3 x10*3/uL (2.0-8.3); Neutrophils Percent Auto 59.3 % (45-73); Platelet Count 438 X10*3/uL (160-400); Red Blood Count 4.79 X10*6/uL (4.20-5.50); White Blood Count 7.2 X10*3/uL (4.8-10.8)
[2024-12-09 11:38] LABS: Alanine Aminotransferase 10 U/L (0-31); Albumin Level 3.9 g/dL (3.5-5.0); Alkaline Phosphatase 143 U/L (39-117); Anion Gap 13 (12-20); Aspartate Amino Transferase 17 U/L (5-31); Bilirubin Total 0.3 mg/dL (0.0-1.0); Blood Urea Nitrogen 4 mg/dL (9-16); Calcium 9.1 mg/dL (8.4-10.2); Carbon Dioxide 21 mmol/L (22-29); Chloride 108 mmol/L (96-108); Cholesterol 176 mg/dL (<200); Estimated Glomerular Filt Rate > 60; Glucose Random 84 mg/dL (60-115); HDL Cholesterol 48 mg/dL (>40); LDL Cholesterol Calculated 103 mg/dL (<100); Potassium 4.1 mmol/L (3.3-5.1); Sodium 138 mmol/L (135-145); Total Protein 6.9 g/dL (6.5-8.0); Triglycerides 125 mg/dL (<150)
[2024-12-09 11:40] LABS: Vitamin D 25-OH Total 8.8 ng/mL (>30)
== END 2024-12-09 09:31 | disposition home or self-care (01) ==
LOC: HO.LAB 09:30
PROVIDERS: PCP Internal Medicine; Visit Provider Psychiatry & Neurology Psychiatry
DX: Z79.899 Other long term (current) drug therapy (principal)
CPT/HCPCS: 36415; 80053; 80061; 82306; 84443; 85025

== ENCOUNTER 2024-12-18 14:23 | Emergency (ER) | payer OTHER, SELFPAY ==
--- NOTE | ~2024-12-18 | XR_ITS ---
EXAMINATION: XR CHEST CLINICAL INFORMATION: chest pain COMPARISON: 01/18/2024, 11/10/2023. TECHNIQUE: 2 views of the chest were obtained. FINDINGS: The cardiac, hilar, and mediastinal contours are normal. The lungs are clear bilaterally. There is no pneumothorax or pleural effusion. There is no focal osseous or soft tissue abnormality. XR/XR chest 2V IMPRESSION: Normal chest. Electronically signed by: Elliot Siddiqui MD 12/18/2024 03:03 PM EDT
--- NOTE | 2024-12-18 14:26 | ECG_ITS ---
Test Reason : CHEST PAIN Blood Pressure : */* mmHG Vent. Rate : 114 BPM Atrial Rate : 114 BPM P-R Int : 174 ms QRS Dur : 76 ms QT Int : 310 ms P-R-T Axes : 21 24 25 degrees QTcB Int : 427 ms Sinus tachycardia Cannot rule out Anterior infarct , age undetermined Abnormal ECG When compared with ECG of 25-Feb-2024 07:06, No significant change was found Referred By: Generic ED Physician Electronically Signed By: Aníbal Montez
[2024-12-18 14:43] VITALS: BP 129/85; PULSE 123; RESP 16; TEMP 36.6; O2SAT 99; BMI 44.9
--- NOTE | 2024-12-18 14:44 | ED.CHESTPAIN ---
HPI - Chest Pain General Chief Complaint: Chest Pain Stated Complaint: Chest Pain Time Seen by Provider: 12/18/24 18:00 Source: patient and family (mom) Mode of arrival: ambulatory Limitations: no limitations History of Present Illness ED Provider: BERNADINE PALM HPI narrative: 24 year old female with pmhx significant for schizophrenia, bipolar disorder, intellectual disability presents to the ED today with her mother for evaluation of sternal chest pain which began at 1300 today while seated, scrolling through her phone. Pain has been constant since onset and is exacerbated with deep breathing. No radiation. Reports history of chest pain however this appears to feel worse than previous episodes. she did not trial any OTC pain medications for symptoms GAME ARTIST. Denies cardiac history. Denies familial cardiac history of history of sudden deaths in the family. Reports compliance with cloazpine and lamotrigine. She has not missed any doses or taken any extra doses. No recent dose adjustments or medication changes. Admits to brief episode of right leg pain 2 days ago that has since resolved. Patient's mother reports they often travel to [place] for camp with the last trip being a few weeks ago. No other travel/ long car rides. No OCP use. Denies trauma/injury. Reports she is tachycardic at baseline. admits to history of anxiety/ panic attacks however states this feels different. no recent life stressors. denies smoking tobacco or vaping. Denies cough, hemoptysis, palpitations, sob, fever/chills, N/V, dizziness, headache, vision changes. Related Data Home Medications ?Medication ?Instructions ?Recorded ?Confirmed lamotrigine 25 mg tablet 25 mg PO DAILY 08/18/24 08/18/24 Previous Rx's ?Medication ?Instructions ?Recorded clozapine 100 mg tablet 100 mg PO BEDTIME 30 days #30 tabs 01/31/24 ibuprofen 600 mg tablet 600 mg PO Q6-8H PRN pain (scale 12/18/24 score 4-6) #30 tabs Allergies Allergy/AdvReac Type Severity Reaction Status Date / Time haloperidol AdvReac EPS Verified 12/18/24 14:47 metoprolol AdvReac Diarrhea Verified 12/18/24 14:47 Review of Systems Review of Systems: Yes all other systems are reviewed and are negative PMFSH Past Medical History Attestation statement: The following information was validated with the patient. Source: old records reviewed and nursing notes reviewed Medical History Morbid obesity Schizophrenia Bipolar disorder in remission Intellectual disability Vitamin D deficiency Vitamin B12 deficiency Hx of ovarian cyst Supraventricular tachycardia by ECG Migraine Surgical History H/O removal of cyst Family History Family History Mother Bipolar disorder Mental health disorder Social History Social History Household Members: Family Household Members Other:: Pt unable to answer questions d/t mental status. Housing: House Housing Other:: at home with mother Are you a primary neonatal intensive care unit nurse to a significant other at home: No Alcohol intake: never Patient Tobacco Use Status: Never used Tobacco Smoked in Last 30 Days: No e-Cigarette/Vaping Use: Never Used Second Hand Smoke Exposure: No Use of substances other than those prescribed or required for medical reasons: No Substance Use Type: Unknown Advance Directives: Yes Advance Directives on File: Yes Advance Directives Date on File: 12/10/23 Do you have a plan to hurt others: No Plan Patient : No service: No Current occupational status: unemployed Sexual orientation: Straight/Heterosexual Gender identity: Female Cognitive needs: No Hearing needs: No Vision needs: No Physical Exam Vital Signs: Vital Signs: Last Vital Signs Temp 97.6 F 12/18/24 21:31 Pulse 102 H 12/18/24 21:31 Resp 14 12/18/24 21:31 BP 102/62 12/18/24 21:31 Pulse Ox 99 12/18/24 21:31 O2 Del Method Room Air 12/18/24 21:31 BMI result Body Mass Index 44.9 Vital signs stable General: Well appearing, in no acute distress. Skin: Warm, dry, intact. No rashes or lesions. Head: Normocephalic, atraumatic. EENT: Hearing is intact b/l. Conjunctiva clear. Sclera is anicteric. Neck: Supple without LAD. Cardiac: Chest wall symmetric. RRR. no reproducible TTP. Lungs: Normal respiratory effort without accessory muscle use. CTA bilaterally. no adventitious breath sounds. Abdomen: Soft, non-tender, non-distended. No rebound tenderness or guarding. Positive BS x4. Ext: Upper and lower extremities atraumatic, without tenderness, deformity, swelling or erythema. no pitting edema. no calf tenderness. Neuro: AOx3. Normal speech. Course Course Course Narrative: This is an RME performed by Antonia Espinoza, SHIRRING TENDER: Additional HPI, ROS, PE not included below will be deferred to primary provider. Patient is a 24-year-old female who presents emergency department for evaluation of chest pain with sudden onset while at rest at 13:00 today. Admits to a history of similar pain in the past but this feels worse. Denying any shortness of breath, dizziness, palpitations, nausea, radiation of the pain, numbness or tingling of extremities. She arrives emergency department tachycardic with a pulse of 120 Plan: Serum labs, EKG, CXR Reevaluation(s) Reevaluation #1: CBC showing leukocytosis to 12.3 without left shift. no anemia, h&h stable. ddimer undetectable > low suspicion for PE, cta chest not warranted. chemistry without acute electrolyte abnormality requiring intervention. no stephanie. liver function around baseline. TSH wnl. troponin flat x2. ekg showing sinus tachycardia, no acute ischemic changes or st elevations. chest xray without infiltrate or consolidation. no effusion. negative covid/flu/rsv. > patient medicated with toradol > reports complete resolution of symptoms. I have suspicion for costocondritis/ msk etiology. advised NSAIDs at home. Patient has remained stable throughout ED visit today. Discussed worrisome signs and symptoms and when to return to the ED. All questions answered at this time. Patient is agreeable with disposition and stable for discharge. Medications Administered Discontinued Medications Generic Name Dose Route Start Last Admin Trade Name Freq PRN Reason Stop Dose Admin Ketorolac Tromethamine 30 mg 12/18/24 19:18 12/18/24 19:36 Ketorolac Tromethamine 30 Mg/Ml Vial IVPUSH 12/18/24 19:19 30 mg ONCE ONE Administration Medical Decision Making Medical Decision Making [facility] Narrative: 24 year old female with pmhx significant for schizophrenia, bipolar disorder, intellectual disability presents to the ED today with her mother for evaluation of sternal chest pain which began at 1300 today while seated, scrolling through her phone. tachycardic, vitals are otherwise wnl. History without high risk features (no exertional component, not relieved with rest).? Minimal CAD risk factors (including age). Exam without evidence of volume overload. EKG without signs of active ischemia. HEART score: 1 (obesity) Given the timing of pain to ED presentation, plan to send delta troponin to evaluate for NSTEMI. Differential diagnosis also includes anemia, electrolyte abnormality, costochondritis, msk pain, pneumonia, pleurisy, PE (PERC 1), anxiety Presentation not consistent with pneumothorax, thoracic aortic dissection, cardiac effusion or tamponade, myocarditis, pericarditis Plan for labs, viral serology, chest x-ray, EKG, troponins, pain control, re-evaluation Differential Diagnosis Differential Diagnoses: The differential diagnosis associated with the presentation includes As above Admission/Observation Not indicated Lab Data MDM Lab Attestation statement: I reviewed the patient's lab results. As above 12/18/24 15:17 12/18/24 15:17 Labs: Lab Results 12/18/24 12/18/24 12/18/24 Range/Units 15:17 18:47 20:00 WBC 12.3 H (4.8-10.8) X10*3/uL RBC 4.87 (4.20-5.50) X10*6/uL Hgb 13.2 (12.0-16.0) g/dl Hct 40.7 (37.0-47.0) % MCV 83.6 (80.0-98.0) fL MCH 27.1 (27.0-33.0) pg MCHC 32.4 (31.0-35.0) g/dl RDW 15.2 (11.0-16.0) % Plt Count 407 H (160-400) X10*3/uL MPV 9.2 L (9.4-12.3) fL Immature Gran % (Auto) 0.6 H (0.0-0.4) % Neut % (Auto) 71.0 (45-73) % Lymph % (Auto) 21.0 (20-40) % Kitt[place] % (Auto) 6.1 (2-11) % Eos % (Auto) 0.9 (0-4) % Baso % (Auto) 0.4 (0-2) % Lymph # (Auto) 2.6 (1.2-4.9) X10*3/uL [place] # (Auto) 0.8 (0.1-1.2) X10*3/uL Eos # (Auto) 0.1 (0.0-0.4) X10*3/uL Baso # (Auto) 0.1 (0.0-0.2) X10*3/uL Abs Immat Gran (auto) 0.08 H (0.00-0.03) X10*3/uL Absolute Neuts (auto) 8.7 H (2.0-8.3) x10*3/uL Absolute Nucleated RBC 0.000 (0.0-0.012) X10*3/uL Nucleated RBC % (auto) 0.0 (0.0-0.2) /100WBC D-Dimer High Sensitivty < 150 NG/ML Sodium 139 (135-145) mmol/L Potassium 3.8 (3.3-5.1) mmol/L Chloride 105 (96-108) mmol/L Carbon Dioxide 23 (22-29) mmol/L Anion Gap 15 (12-20) BUN 5 L (9-16) mg/dL Creatinine 0.61 (0.5-1.4) mg/dL Estim Creat Clear Calc 157.6 Estimated GFR > 60 Random Glucose 99 (60-115) mg/dL Calcium 9.3 (8.4-10.2) mg/dL Magnesium 2.0 (1.6-2.6) mg/dL Total Bilirubin 0.2 (0.0-1.0) mg/dL AST 17 (5-31) U/L ALT 12 (0-31) U/L Alkaline Phosphatase 158 H (39-117) U/L Troponin I High Sens < 2.7 < 2.7 (<3.5-17.0) ng/L Total Protein 7.5 (6.5-8.0) g/dL Albumin 4.2 (3.5-5.0) g/dL TSH 1.97 (0.32-4.0) uIU/mL Beta HCG, Quant < 2 mIU/mL Influenza Type A (PCR) NEGATIVE (Negative) Influenza Type B (PCR) NEGATIVE (Negative) RSV RNA Qual (PCR) NEGATIVE (Negative) SARS-CoV-2 RNA (RT-PCR) NEGATIVE (Negative) Independent Interpretation I performed an independent interpretation of an: EKG and Plain X-Ray Interpretation: EKG showing sinus tachycardia, no acute ischemic changes or st elevations Chest x-ray without infiltrate or consolidation, no effusion Radiology Impression Discussion of test interpretation with radiology: I have reviewed the radiologist's reading. Radiologist Impression: Date of Service: 12/18/24 Procedure(s): ECG 12 lead EKG Accession Number(s): [id number] cc: ~ Test Reason : CHEST PAIN Blood Pressure : */* mmHG Vent. Rate : 114 BPM Atrial Rate : 114 BPM P-R Int : 174 ms QRS Dur : 76 ms QT Int : 310 ms P-R-T Axes : 21 24 25 degrees QTcB Int : 427 ms Sinus tachycardia Cannot rule out Anterior infarct , age undetermined Abnormal ECG When compared with ECG of 25-Feb-2024 07:06, No significant change was found Referred By: Generic ED Physician Electronically Signed By: Ordering Physician: Gina Espinoza CNP Date of Service: 12/18/24 Procedure(s): XR chest 2V Accession Number(s): [id number] cc: Gina Espinoza CNP; Physician,Unknown ~ EXAMINATION: XR CHEST CLINICAL INFORMATION: chest pain COMPARISON: 01/18/2024, 11/10/2023. TECHNIQUE: 2 views of the chest were obtained. FINDINGS: The cardiac, hilar, and mediastinal contours are normal. The lungs are clear bilaterally. There is no pneumothorax or pleural effusion. There is no focal osseous or soft tissue abnormality. XR/XR chest 2V IMPRESSION: Normal chest. Electronically signed by: Elliot Siddiqui MD 12/18/2024 03:03 PM EDT Independent Historian Clinical information obtained from an independent historian. History obtained from or confirmed by: Parent (mom) External Record Review External record reviewed: Inpatient record Prescription Management I considered prescription management with: Pain Medication Social Determinants Patient?s care significantly limited by Social Determinants of Health including: Other Social Determinant of Health Critical Care Time Critical Care Time Critical Care Time: No Discharge Plan Discharge Clinical Impression: Atypical chest pain Patient Disposition: Home, Self-Care Instructions: Noncardiac Chest Pain (ED) Additional Instructions: You were evaluated in the Emergency Department today for chest pain. Your evaluation has shown no signs of medical conditions requiring emergent intervention at this time. You may take motrin at home as needed for pain/discomfort. I recommend that you follow up with your primary care provider as soon as possible for further testing as an outpatient. If you do not have one, a referral has been provided. Please call them to make an appointment, they will not call you. Return to the Emergency Department if you experience worsening or uncontrolled chest pain, shortness of breath, light headedness, feeling faint, nausea, vomiting, or any other concerning symptoms. Prescriptions: New ibuprofen 600 mg tablet 600 mg PO Q6-8H PRN (Reason: pain (scale score 4-6)) Qty: 30 0RF No Action clozapine 100 mg tablet 100 mg PO BEDTIME 30 Days Qty: 30 0RF lamotrigine 25 mg tablet 25 mg PO DAILY Referrals: Ruma Alvarado MD [Primary Care Provider] - Interventions: ED Discharge Assessment Last Done: 12/18/24 21:31 Discharge Date/Time: 12/18/24 21:32 Print Language: Martiniquais
[2024-12-18 15:22] LABS: MANUAL DIFF FLAG NO
[2024-12-18 15:24] LABS: Basophils Absolute Auto 0.1 X10*3/uL (0.0-0.2); Basophils Percent Auto 0.4 % (0-2); Eosinophils Absolute Auto 0.1 X10*3/uL (0.0-0.4); Eosinophils Percent Auto 0.9 % (0-4); Hematocrit 40.7 % (37.0-47.0); Hemoglobin 13.2 g/dl (12.0-16.0); Imm Gran Abs Auto 0.08 X10*3/uL (0.00-0.03); Imm Gran Pct Auto 0.6 % (0.0-0.4); Lymphocytes Absolute Auto 2.6 X10*3/uL (1.2-4.9); Mean Corpuscular HGB Conc 32.4 g/dl (31.0-35.0); Mean Corpuscular Hemoglobin 27.1 pg (27.0-33.0); Mean Corpuscular Volume 83.6 fL (80.0-98.0); Mean Platelet Volume 9.2 fL (9.4-12.3); Monocytes Absolute Auto 0.8 X10*3/uL (0.1-1.2); Monocytes Percent Auto 6.1 % (2-11); Neutrophils Absolute Auto 8.7 x10*3/uL (2.0-8.3); Platelet Count 407 X10*3/uL (160-400); Red Blood Count 4.87 X10*6/uL (4.20-5.50); Red Cell Distribution Width 15.2 % (11.0-16.0); White Blood Count 12.3 X10*3/uL (4.8-10.8)
[2024-12-18 15:44] LABS: Alanine Aminotransferase 12 U/L (0-31); Albumin Level 4.2 g/dL (3.5-5.0); Anion Gap 15 (12-20); Aspartate Amino Transferase 17 U/L (5-31); Bilirubin Total 0.2 mg/dL (0.0-1.0); Blood Urea Nitrogen 5 mg/dL (9-16); Calcium 9.3 mg/dL (8.4-10.2); Carbon Dioxide 23 mmol/L (22-29); Chloride 105 mmol/L (96-108); Creatinine Clr Calc Pharmacy 157.6; Estimated Glomerular Filt Rate > 60; Glucose Random 99 mg/dL (60-115); Potassium 3.8 mmol/L (3.3-5.1); Sodium 139 mmol/L (135-145); Total Protein 7.5 g/dL (6.5-8.0); Troponin-I High Sensitivity < 2.7 ng/L (<3.5-17.0)
[2024-12-18 15:47] LABS: Alkaline Phosphatase 158 U/L (39-117)
[2024-12-18 15:58] LABS: TSH reflex Free T4 1.97 uIU/mL (0.32-4.0)
[2024-12-18 15:59] LABS: Influenza A PCR NEGATIVE (Negative); Influenza B PCR NEGATIVE (Negative); Resp Syncy Virus RNA Qual PCR NEGATIVE (Negative); SARS COV2 PCR INHOUSE NEGATIVE (Negative)
[2024-12-18 16:44] VITALS: BP 142/83; PULSE 112; RESP 22; TEMP 36.8; O2SAT 100
[2024-12-18 18:27] LABS: HCG Quantitative < 2 mIU/mL
[2024-12-18 18:34] VITALS: BP 139/85; PULSE 105; RESP 14; TEMP 36.3; O2SAT 100
[2024-12-18 19:04] LABS: D Dimer High Sensitivity < 150 NG/ML
[2024-12-18] MEDS: Ketorolac Tromethamine 30 MG/ML VIAL IVPUSH (19:36)
[2024-12-18 20:32] LABS: Troponin-I High Sensitivity < 2.7 ng/L (<3.5-17.0)
[2024-12-18 21:30] VITALS: BP 102/62; PULSE 102; RESP 14; TEMP 36.4; O2SAT 99
[2024-12-18 21:31] VITALS: BP 102/62; PULSE 102; RESP 14; TEMP 36.4; O2SAT 99
== END 2024-12-18 21:32 | disposition home or self-care (01) ==
PROVIDERS: Nurse Practitioner Family; Physician Assistant Medical; Emergency Provider Emergency Medicine; PCP Internal Medicine
DX: R07.89 Other chest pain (principal); Z03.818 Encounter for observation for suspected exposure to other biological agents ruled out
CPT/HCPCS: 0241U; 36415; 71046; 80053; 83735; 84443; 84484; 84702; 85025; 85379; 93005; 96374; 99284; 99285; J1885

== ENCOUNTER → 2024-12-18 14:26 | Outpatient (BNV) | payer OTHER, SELFPAY | PROVIDERS: Emergency Provider Emergency Medicine; PCP Internal Medicine; Visit Provider Internal Medicine Cardiovascular Disease | DX: R00.0 Tachycardia, unspecified (principal) | CPT/HCPCS: 93010 ==

== ENCOUNTER → 2024-12-18 14:47 | Outpatient (BNV) | payer OTHER, SELFPAY | PROVIDERS: PCP Internal Medicine; Visit Provider Radiology Diagnostic Radiology | DX: R07.9 Chest pain, unspecified (principal) | CPT/HCPCS: 71046 ==

== ENCOUNTER 2024-12-23 11:42 | Outpatient (REF) | payer OTHER, SELFPAY ==
[2024-12-23 12:01] LABS: MANUAL DIFF FLAG NO
[2024-12-23 12:16] LABS: Basophils Absolute Auto 0.1 X10*3/uL (0.0-0.2); Basophils Percent Auto 0.5 % (0-2); Eosinophils Absolute Auto 0.1 X10*3/uL (0.0-0.4); Eosinophils Percent Auto 1.2 % (0-4); Hematocrit 38.2 % (37.0-47.0); Hemoglobin 12.7 g/dl (12.0-16.0); Imm Gran Abs Auto 0.05 X10*3/uL (0.00-0.03); Imm Gran Pct Auto 0.5 % (0.0-0.4); Lymphocytes Absolute Auto 1.9 X10*3/uL (1.2-4.9); Lymphocytes Percent Auto 17.9 % (20-40); Mean Corpuscular HGB Conc 33.2 g/dl (31.0-35.0); Mean Corpuscular Volume 81.1 fL (80.0-98.0); Mean Platelet Volume 9.3 fL (9.4-12.3); Monocytes Absolute Auto 0.7 X10*3/uL (0.1-1.2); Monocytes Percent Auto 7.2 % (2-11); Neutrophils Absolute Auto 7.5 x10*3/uL (2.0-8.3); Neutrophils Percent Auto 72.7 % (45-73); Platelet Count 415 X10*3/uL (160-400); Red Blood Count 4.71 X10*6/uL (4.20-5.50); Red Cell Distribution Width 15.3 % (11.0-16.0); White Blood Count 10.3 X10*3/uL (4.8-10.8)
== END 2024-12-23 11:43 | disposition home or self-care (01) ==
LOC: HO.LABR 11:42
PROVIDERS: PCP Internal Medicine; Visit Provider Psychiatry & Neurology Psychiatry
DX: Z79.899 Other long term (current) drug therapy (principal)
CPT/HCPCS: 36415; 85025

== ENCOUNTER 2025-01-06 11:51 | Outpatient (REF) | payer OTHER, SELFPAY ==
[2025-01-06 12:03] LABS: MANUAL DIFF FLAG NO
[2025-01-06 12:21] LABS: Basophils Absolute Auto 0.1 X10*3/uL (0.0-0.2); Basophils Percent Auto 0.5 % (0-2); Eosinophils Absolute Auto 0.1 X10*3/uL (0.0-0.4); Eosinophils Percent Auto 1.2 % (0-4); Hematocrit 40.7 % (37.0-47.0); Hemoglobin 13.2 g/dl (12.0-16.0); Imm Gran Abs Auto 0.05 X10*3/uL (0.00-0.03); Imm Gran Pct Auto 0.5 % (0.0-0.4); Lymphocytes Absolute Auto 2.2 X10*3/uL (1.2-4.9); Mean Corpuscular HGB Conc 32.4 g/dl (31.0-35.0); Mean Corpuscular Hemoglobin 27.1 pg (27.0-33.0); Mean Corpuscular Volume 83.6 fL (80.0-98.0); Mean Platelet Volume 9.6 fL (9.4-12.3); Monocytes Absolute Auto 0.7 X10*3/uL (0.1-1.2); Monocytes Percent Auto 6.4 % (2-11); Neutrophils Absolute Auto 7.3 x10*3/uL (2.0-8.3); Neutrophils Percent Auto 70.4 % (45-73); Platelet Count 432 X10*3/uL (160-400); Red Blood Count 4.87 X10*6/uL (4.20-5.50); Red Cell Distribution Width 14.9 % (11.0-16.0); White Blood Count 10.4 X10*3/uL (4.8-10.8)
--- OUTSIDE RECORDS SUMMARY | 2025-01-06 13:00 | XMS_ITS | Encounter Summary ---
Author Organization [facility] Address [address] [place] [address] Care Team Providers Care Rn Transfer Name Role Phone Lisa Moses MD Primary Care Provider Delonte richards Encounter Details Date Type Department Care Team Description 02/11/2018 Fourth Officer Report Medical Records [address] [place], [place] [id number] [place] [address] Social History Tobacco Use Types Packs/Day Years [...] filedocumented in this encounter Care Teams Rn Transfer Relationship Specialty Start Date End Date Lisa Moses MD PCP - General Pediatrics 12/02/17 documented as of this encounter
--- OUTSIDE RECORDS SUMMARY | 2025-01-06 13:00 | XMS_ITS | Encounter Summary ---
Author Organization [facility] Address [address] [place] [address] Care Team Providers Care Alley Tender Name Role Phone Sylvia Rangel MD Primary Care Provider Unavaildexter e Lisa Moses MD Primary Care Provider Unavaila ble Encounter Details Date Type Department Care Team Description 12/04/2016 Personnel Specialist Report Medical Records [address] [place] [id number] Abstract, Provider Social History Tobacco Use Types [...] on filedocumented in this encounter Care Teams Alley Tender Relationship Specialty Start Date End Date Sylvia Rangel MD PCP - General 02 12/01/17 Lisa Moses MD PCP - General Pediatrics 12/02/17 documented as of this encounter
--- OUTSIDE RECORDS SUMMARY | 2025-01-06 13:00 | XMS_ITS | Encounter Summary ---
Author Organization [facility] Address [address] [place] [address] Care Team Providers Care Ceramic Coater Name Role Phone Sylvia Rangel MD Primary Care Provider Kalyani e Lisa Moses MD Primary Care Provider Sharmina maurice Encounter Details Date Type Department Care Team Description 08/24/2013 Security Trainer Report Medical Records [address] [place] [address] Dominic Merrill Social History Tobacco Use Types [...] on filedocumented in this encounter Care Teams Ceramic Coater Relationship Specialty Start Date End Date Sylvia Rangel MD PCP - General 02 12/01/17 Lisa Moses MD PCP - General Pediatrics 12/02/17 documented as of this encounter
--- OUTSIDE RECORDS SUMMARY | 2025-01-06 13:00 | XMS_ITS | Encounter Summary ---
Author Organization [facility] Address [address] [place] [address] Care Team Providers Care Scrap Drop Engineer Name Role Phone Lisa Moses MD Primary Care Provider Unavaila ble Reason for Visit * Reason Onset Date Comments Headache 05/07/2018 Encounter Details Date Type Department Care Team Description 05/07/2018 Telephone Pediatrics - [address] [address] Lisa Moses MD Headache Social History Tobacco [...] until speaks with Insurance. Mom will call [employer] to straighten out insurance. * Telephone Encounter [...] on filedocumented in this encounter Care Teams Scrap Drop Engineer Relationship Specialty Start Date End Date Lisa Moses MD PCP - General Pediatrics 12/02/17 documented as of this encounter
--- OUTSIDE RECORDS SUMMARY | 2025-01-06 13:00 | XMS_ITS | Encounter Summary ---
Author Organization [facility] Address [address] [place] [address] Care Team Providers Care Funeral Professional Name Role Phone Sylvia Rangel MD Primary Care Provider Kalyani e Lisa Moses MD Primary Care Provider Unavaila ble Encounter Details Date Type Department Care Team Description 08/10/2012 [facility] Medical Records [address] [place] [address] Nani Banegas MD Social History Tobacco Use [...] on filedocumented in this encounter Care Teams Funeral Professional Relationship Specialty Start Date End Date Sylvia Rangel MD PCP - General 02 12/01/17 Lisa Moses MD PCP - General Pediatrics 12/02/17 documented as of this encounter
--- OUTSIDE RECORDS SUMMARY | 2025-01-06 13:00 | XMS_ITS | Encounter Summary ---
Author Organization [facility] Address [address] [place] [address] Care Team Providers Care Cardio Tech Name Role Phone Sylvia Rangel MD Primary Care Provider Kalyani e Lisa Moses MD Primary Care Provider Sharmina ble Encounter Details Date Type Department Care Team Description 08/11/2014 Night Triage Doc Medical Records [address] [place] [id number] Abstract, Provider Social History Tobacco Use Types [...] on filedocumented in this encounter Care Teams Cardio Tech Relationship Specialty Start Date End Date Sylvia Rangel MD PCP - General 02 12/01/17 Lisa Moses MD PCP - General Pediatrics 12/02/17 documented as of this encounter
--- OUTSIDE RECORDS SUMMARY | 2025-01-06 13:00 | XMS_ITS | Encounter Summary ---
Author Organization [facility] Address [address] [place] [address] Care Team Providers Care Paste Mixing Supervisor Name Role Phone Sylvia Rangel MD Primary Care Provider Kalyani e Lisa Moses MD Primary Care Provider Sharmina ble Encounter Details Date Type Department Care Team Description 07/19/2012 Night Triage Doc Medical Records [address] [place] [address] Abstract, Provider Social History Tobacco Use Types [...] on filedocumented in this encounter Care Teams Paste Mixing Supervisor Relationship Specialty Start Date End Date Sylvia Rangel MD PCP - General 02 12/01/17 Lisa Moses MD PCP - General Pediatrics 12/02/17 documented as of this encounter
--- OUTSIDE RECORDS SUMMARY | 2025-01-06 13:00 | XMS_ITS | Encounter Summary ---
Author Organization [facility] Address [address] [place] [address] Care Team Providers Care Project Management Professional Name Role Phone Sylvia Rangel MD Primary Care Provider Unavaildexter e Lisa Moses MD Primary Care Provider Unavaila ble Encounter Details Date Type Department Care Team Description 01/24/2015 Night Triage Doc Medical Records [address] [place] [id number] Abstract, Provider Social History Tobacco Use Types [...] on filedocumented in this encounter Care Teams Project Management Professional Relationship Specialty Start Date End Date Sylvia Rangel MD PCP - General 02 12/01/17 Lisa Moses MD PCP - General Pediatrics 12/02/17 documented as of this encounter
--- OUTSIDE RECORDS SUMMARY | 2025-01-06 13:00 | XMS_ITS | Encounter Summary ---
Author Organization [facility] Address [address] [place] [address] Care Team Providers Care Desk Maker Name Role Phone Sylvia Rangel MD Primary Care Provider Kalyani e Lisa Moses MD Primary Care Provider Sharmina maurice Encounter Details Date Type Department Care Team Description 11/13/2011 Block Feeder Report Medical Records [address] [place] [address] Dominic Merrill Social History Tobacco Use Types [...] on filedocumented in this encounter Care Teams Desk Maker Relationship Specialty Start Date End Date Sylvia Rangel MD PCP - General 02 12/01/17 Lisa Moses MD PCP - General Pediatrics 12/02/17 documented as of this encounter
--- OUTSIDE RECORDS SUMMARY | 2025-01-06 13:00 | XMS_ITS | Encounter Summary ---
Author Organization [facility] Address [address] [place] [address] Care Team Providers Care Mold Cutting Machine Operator Name Role Phone Sylvia Rangel MD Primary Care Provider Unavaildexter e Lisa Moses MD Primary Care Provider Unavaila ble Encounter Details Date Type Department Care Team Description 02/28/2017 Educational Adviser Report Medical Records [address] [place], [place] [phone] [place] [address] For Social History Tobacco Use Types Packs/Day [...] on filedocumented in this encounter Care Teams Mold Cutting Machine Operator Relationship Specialty Start Date End Date Sylvia Rangel MD PCP - General 02 12/01/17 Lisa Moses MD PCP - General Pediatrics 12/02/17 documented as of this encounter
--- OUTSIDE RECORDS SUMMARY | 2025-01-06 13:00 | XMS_ITS | Encounter Summary ---
Author Organization [facility] Address [address] [place] [address] Care Team Providers Care Appeals Writer Name Role Phone Sylvia Rangel MD Primary Care Provider Unavaildexter e Lisa Moses MD Primary Care Provider Unavaila ble Encounter Details Date Type Department Care Team Description 09/24/2011 Burr Bench Operator Report Medical Records [address] [place] [address] Bryce Alaniz MD Social History Tobacco Use [...] filedocumented in this encounter Care Teams Appeals Writer Relationship Specialty Start Date End Date Sylvia Rangel MD PCP - General 02 12/01/17 Lisa Moses MD PCP - General Pediatrics 12/02/17 documented as of this encounter
--- OUTSIDE RECORDS SUMMARY | 2025-01-06 13:00 | XMS_ITS | Encounter Summary ---
Author Organization [facility] Address [address] [place] [address] Care Team Providers Care Property Management Specialist Name Role Phone Sylvia Rangel MD Primary Care Provider Kalyani e Lisa Moses MD Primary Care Provider Sharmina ble Encounter Details Date Type Department Care Team Description 01/11/2017 Release of Information Medical Records [address] [place] [phone] Abstract, Provider Social History Tobacco Use Types [...] on filedocumented in this encounter Care Teams Property Management Specialist Relationship Specialty Start Date End Date Sylvia Rangel MD PCP - General 02 12/01/17 Lisa Moses MD PCP - General Pediatrics 12/02/17 documented as of this encounter
--- OUTSIDE RECORDS SUMMARY | 2025-01-06 13:00 | XMS_ITS | Encounter Summary ---
Author Organization [facility] Address [address] [place] [address] Care Team Providers Care Drum Barker Operator Name Role Phone Sylvia Rangel MD Primary Care Provider Kalyani e Lisa Moses MD Primary Care Provider Sharmina ble Encounter Details Date Type Department Care Team Description 05/03/2015 [facility] Medical Records [address] [place] [address] Social History Tobacco Use Types Packs/Day Years [...] on filedocumented in this encounter Care Teams Drum Barker Operator Relationship Specialty Start Date End Date Sylvia Rangel MD PCP - General 02 12/01/17 Lisa Moses MD PCP - General Pediatrics 12/02/17 documented as of this encounter
--- OUTSIDE RECORDS SUMMARY | 2025-01-06 13:00 | XMS_ITS | Encounter Summary ---
Author Organization [facility] Address [address] [place] [address] Care Team Providers Care Director Consumer Affairs Name Role Phone Lisa Moses MD Primary Care Provider Delonte richards Encounter Details Date Type Department Care Team Description 01/05/2021 Release of Information Medical Records [address] [place] [id number] Abstract, Provider Social History Tobacco Use Types [...] filedocumented in this encounter Care Teams Director Consumer Affairs Relationship Specialty Start Date End Date Lisa Moses MD PCP - General Pediatrics 12/02/17 documented as of this encounter
--- OUTSIDE RECORDS SUMMARY | 2025-01-06 13:00 | XMS_ITS | Encounter Summary ---
Author Organization [facility] Address [address] [place] [address] Care Team Providers Care Community Relations Director Name Role Phone Sylvia Rangel MD Primary Care Provider Lisa Yu MD Primary Care Provider Sharmina ble Reason for Visit * Reason Onset Date Comments DCF 04/15/2015 Encounter Details Date Type Department Care Team Description 04/15/2015 Telephone Pediatrics - [address] [address] Sylvia Rangel MD [facility] Social History Tobacco Use Types Packs/Day [...] - 04/18/2015 9:56 AM EDT Cindy from [facility] calling back on 3 patients * Telephone Encounter - Mckenna Borges L.P.N. - 04/18/2015 9:29 AM EDT Left message to call back. * Telephone Encounter - Hortensia Keys R.N. - 04/15/2015 3:55 PM EDT Left message * Telephone Encounter - Shannan Amaya - 04/15/2015 3:16 PM EDT Name and title of caller: Whit from [facility] 51- a on file : 2000 Age: 14 yr. Is this an active 51A case: Yes. Case is currently active. Message forwarded to nurse to provide information. Message forwarded to nurse for follow up documented in this encounter Plan of Treatment Not on file documented as of this encounter Visit Diagnoses Not on filedocumented in this encounter Care Teams Community Relations Director Relationship Specialty Start Date End Date Sylvia Rangel MD PCP - General 02 12/01/17 Lisa Moses MD PCP - General Pediatrics 12/02/17 documented as of this encounter
--- OUTSIDE RECORDS SUMMARY | 2025-01-06 13:00 | XMS_ITS | Encounter Summary ---
Author Organization [facility] Address [address] [place] [address] Care Team Providers Care Contract Programmer Name Role Phone Sylvia Rangel MD Primary Care Provider Kalyani e Lisa Moses MD Primary Care Provider Sharmina maurice Encounter Details Date Type Department Care Team Description 03/14/2014 Night Triage Doc Medical Records [address] [place] [address] Abstract, Provider Social History Tobacco Use Types [...] on filedocumented in this encounter Care Teams Contract Programmer Relationship Specialty Start Date End Date Sylvia Rangel MD PCP - General 02 12/01/17 Lisa Moses MD PCP - General Pediatrics 12/02/17 documented as of this encounter
--- OUTSIDE RECORDS SUMMARY | 2025-01-06 13:00 | XMS_ITS | Encounter Summary ---
Author Organization [facility] Address [address] [place] [address] Care Team Providers Care Marketing Strategy Analyst Name Role Phone Sylvia Ranegl MD Primary Care Provider Kalyani e Lisa Moses MD Primary Care Provider Sharmina ble Encounter Details Date Type Department Care Team Description 12/17/2011 Night Triage Doc Medical Records [address] [place] [address] Abstract, Provider Social History Tobacco Use Types [...] filedocumented in this encounter Care Teams Marketing Strategy Analyst Relationship Specialty Start Date End Date Sylvia Rangel MD PCP - General 02 12/01/17 Lisa Moses MD PCP - General Pediatrics 12/02/17 documented as of this encounter
--- OUTSIDE RECORDS SUMMARY | 2025-01-06 13:00 | XMS_ITS | Encounter Summary ---
Author Organization [facility] Address [address] [place] [address] Care Team Providers Care Kennel Worker Name Role Phone Sylvia Rangel MD Primary Care Provider Kalyani e Lisa Moses MD Primary Care Provider Sharmina maurice Encounter Details Date Type Department Care Team Description 01/28/2012 Agent Spa Desk Report Medical Records [address] [place] [address] Dominic Merrill Social History Tobacco Use Types [...] on filedocumented in this encounter Care Teams Kennel Worker Relationship Specialty Start Date End Date Sylvia Rangel MD PCP - General 02 12/01/17 Lisa Moses MD PCP - General Pediatrics 12/02/17 documented as of this encounter
--- OUTSIDE RECORDS SUMMARY | 2025-01-06 13:00 | XMS_ITS | Encounter Summary ---
Author Organization [facility] Address [address] [place] [address] Care Team Providers Care Mounter Smoking Pipe Name Role Phone Lisa Moses MD Primary Care Provider Delonte richards Encounter Details Date Type Department Care Team Description 10/17/2020 Winch Driver Report Medical Records [address] [place] [address] Social History Tobacco Use Types Packs/Day Years [...] on filedocumented in this encounter Care Teams Mounter Smoking Pipe Relationship Specialty Start Date End Date Lisa Moses MD PCP - General Pediatrics 12/02/17 documented as of this encounter
--- OUTSIDE RECORDS SUMMARY | 2025-01-06 13:00 | XMS_ITS | Encounter Summary ---
Author Organization [facility] Address [address] [place] [address] Care Team Providers Care Development Director Name Role Phone Lisa Moses MD Primary Care Provider Unavaila ble Reason for Visit * Reason Onset Date Comments School note 10/15/2019 Encounter Details Date Type Department Care Team Description 10/15/2019 Telephone Pediatrics - [address] [address] Lisa Moses MD School note Social History Tobacco Use Types Packs/Day Years Used Date Smoking Tobacco: Never Smokeless Tobacco: Never Alcohol Use Standard Drinks/Week Comments No 0 (1 standard drink = 0.6 oz pur e alcohol) Sex Assigned at Date Recorded Not on file documented as of this encounter Miscellaneous Notes * Telephone Encounter - Isabel Qiu - 10/15/2019 10:56 AM EST Child missing school today 10/15 due to being sick will call when child returns documented in this encounter Plan of Treatment Not on file documented as of this encounter Visit Diagnoses Not on filedocumented in this encounter Care Teams Development Director Relationship Specialty Start Date End Date Lisa Moses MD PCP - General Pediatrics 12/02/17 documented as of this encounter
--- OUTSIDE RECORDS SUMMARY | 2025-01-06 13:00 | XMS_ITS | Encounter Summary ---
Author Organization [facility] Address [address] [place] [address] Care Team Providers Care Sound Tester Name Role Phone Sylvia Rangel MD Primary Care Provider Unavaildexter e Lisa Moses MD Primary Care Provider Unavaila ble Encounter Details Date Type Department Care Team Description 02/11/2017 Senior Architectural Designer Report Medical Records [address] [place], [place] [id number] [place] [address] For Social History Tobacco Use Types Packs/Day [...] on filedocumented in this encounter Care Teams Sound Tester Relationship Specialty Start Date End Date Sylvia Rangel MD PCP - General 02 12/01/17 Lisa Moses MD PCP - General Pediatrics 12/02/17 documented as of this encounter
--- OUTSIDE RECORDS SUMMARY | 2025-01-06 13:00 | XMS_ITS | Encounter Summary ---
Author Organization [facility] Address [address] [place] [address] Care Team Providers Care Shoe Stitcher Name Role Phone Sylvia Rangel MD Primary Care Provider Unavaildexter e Lisa Moses MD Primary Care Provider Unavaila ble Encounter Details Date Type Department Care Team Description 05/02/2015 [facility] Medical Records [address] [place] [address] Dominic Merrill Social History Tobacco Use Types [...] on filedocumented in this encounter Care Teams Shoe Stitcher Relationship Specialty Start Date End Date Sylvia Rangel MD PCP - General 02 12/01/17 Lisa Moses MD PCP - General Pediatrics 12/02/17 documented as of this encounter
--- OUTSIDE RECORDS SUMMARY | 2025-01-06 13:00 | XMS_ITS | Encounter Summary ---
Author Organization [facility] Address [address] [place] [address] Care Team Providers Care Plating Engineer Name Role Phone Lisa Moses MD Primary Care Provider Delonte richards Encounter Details Date Type Department Care Team Description 07/26/2020 [facility] Report Medical Records [address] [place] [address] Abstract, Provider Social History Tobacco Use Types [...] on filedocumented in this encounter Care Teams Plating Engineer Relationship Specialty Start Date End Date Lisa Moses MD PCP - General Pediatrics 12/02/17 documented as of this encounter
--- OUTSIDE RECORDS SUMMARY | 2025-01-06 13:00 | XMS_ITS | Encounter Summary ---
Author Organization [facility] Address [address] [place] [address] Care Team Providers Care Grey Roll Man Name Role Phone Sylvia Rangel MD Primary Care Provider Unavaildexter e Lisa Moses MD Primary Care Provider Unavaila ble Encounter Details Date Type Department Care Team Description 07/19/2010 Behavioral Health Tech Report Medical Records [address] [place] [address] Bryce Alaniz MD Social History Tobacco Use [...] on filedocumented in this encounter Care Teams Grey Roll Man Relationship Specialty Start Date End Date Sylvia Rangel MD PCP - General 02 12/01/17 Lisa Moses MD PCP - General Pediatrics 12/02/17 documented as of this encounter
--- OUTSIDE RECORDS SUMMARY | 2025-01-06 13:00 | XMS_ITS | Encounter Summary ---
Author Organization [facility] Address [address] [place] [address] Care Team Providers Care Machine Clerical Verifier Name Role Phone Sylvia Rangel MD Primary Care Provider Kalyani e Lisa Moses MD Primary Care Provider Sharmina ble Encounter Details Date Type Department Care Team Description 02/08/2017 Release of Information Medical Records [address] [place] [address] Abstract, Provider Social History Tobacco Use Types [...] on filedocumented in this encounter Care Teams Machine Clerical Verifier Relationship Specialty Start Date End Date Sylvia Rangel MD PCP - General 02 12/01/17 Lisa Moses MD PCP - General Pediatrics 12/02/17 documented as of this encounter
--- OUTSIDE RECORDS SUMMARY | 2025-01-06 13:00 | XMS_ITS | Encounter Summary ---
Author Organization [facility] Address [address] [place] [address] Care Team Providers Care Frame Runner Name Role Phone Sylvia Rangel MD Primary Care Provider Kalyani e Lisa Moses MD Primary Care Provider Sharmina ble Encounter Details Date Type Department Care Team Description 01/23/2006 [facility] Medical Records [address] [place] [address] Abstract, Provider Social History Tobacco Use Types [...] on filedocumented in this encounter Care Teams Frame Runner Relationship Specialty Start Date End Date Sylvia Rangel MD PCP - General 02 12/01/17 Lisa Moses MD PCP - General Pediatrics 12/02/17 documented as of this encounter
--- OUTSIDE RECORDS SUMMARY | 2025-01-06 13:00 | XMS_ITS | Encounter Summary ---
Author Organization [facility] Address [address] [place] [address] Care Team Providers Care Chin Strap Maker Name Role Phone Lisa Moses MD Primary Care Provider Delonte richards Encounter Details Date Type Department Care Team Description 04/08/2020 Behavioral Health Care Coordinator Report Medical Records [address] [place] [address] Nghia Caputo Social History Tobacco Use Types [...] on filedocumented in this encounter Care Teams Chin Strap Maker Relationship Specialty Start Date End Date Lisa Moses MD PCP - General Pediatrics 12/02/17 documented as of this encounter
--- OUTSIDE RECORDS SUMMARY | 2025-01-06 13:00 | XMS_ITS | Encounter Summary ---
Author Organization [facility] Address [address] [place] [address] Care Team Providers Care Dragline Mechanic Name Role Phone Lisa Moses MD Primary Care Provider Delonte richards Encounter Details Date Type Department Care Team Description 05/26/2020 Release of Information Medical Records [address] [place] [address] Abstract, Provider Social History Tobacco Use Types [...] on filedocumented in this encounter Care Teams Dragline Mechanic Relationship Specialty Start Date End Date Lisa Moses MD PCP - General Pediatrics 12/02/17 documented as of this encounter
--- OUTSIDE RECORDS SUMMARY | 2025-01-06 13:00 | XMS_ITS | Encounter Summary ---
Author Organization [facility] Address [address] [place] [address] Care Team Providers Care Pepper Picker Name Role Phone Sylvia Rangel MD Primary Care Provider Unavaildexter e Lisa Moses MD Primary Care Provider Unavaila ble Encounter Details Date Type Department Care Team Description 08/01/2011 President/[employer]m Production & Live Experiences Report Medical Records [address] [place] [address] Chandana Bustamante MD Social History Tobacco Use [...] on filedocumented in this encounter Care Teams Pepper Picker Relationship Specialty Start Date End Date Sylvia Rangel MD PCP - General 02 12/01/17 Lisa Moses MD PCP - General Pediatrics 12/02/17 documented as of this encounter
--- OUTSIDE RECORDS SUMMARY | 2025-01-06 13:01 | XMS_ITS | Clinical Summary ---
Author Organization [facility] Address [address] [place] [address] Care Team Providers Care Hand Stonecutter Name Role Phone Lisa Moses MD Primary [...] a young adult Continue CBT/psychotherapy.apply To DDS /test case developer to find community resources IEP for school.life [...] a young adult Continue CBT/psychotherapy.apply To DDS /test case developer to find community resources IEP for school.life [...] 03/12/2018 Overview: Admitted to Partial, [facility] and [facility] ? September [id number] partial program ref [...] of cutting 7- therapist in home or school/[facility]/biweekly/Lisa Hidalgo Psychiatry [facility]/Braulio.seroquel 12.5mg once daily.prozac 7.5ml po daily 03-05 [facility].zoloft 100 mg for generalized anxiety disorder/Dr.Aponte-Slater Barreto therapy wkly in home.03-06 Lsia Hayden Mt TO\M qo week.IHT [facility] 03-07 seeing therapist Mikey phone calls monthly,IHT 2x week storm,helpful Last Assessment & Plan: 03-07 seeing therapist Jameshira phone calls monthly,IHT 2x week storm,helpful Development delay 05/08/2007 Overview: preschool with OT, PT, speech Normal hearing at [facility] 06-23-0701-29: has OT and speech 01-30: IEP at school and services include OT and speech- mainstreamed 03-04,03-05.11-04 Receives social cognition and social emotional services in school.life skills class and academic tutoring class Reading is significantly below average range 7-19 IEP at school Repeating grade maybe a new [employer] 7-20 sr in HS IEP Last Assessment & Plan: 11-04 Receives social cognition and social emotional services in school.life skills class and academic tutoring class Reading is significantly below average range 7-19 IEP at school Repeating grade maybe a new [employer] 7-20 sr in HS IEP Migraine without [...] as needed- MULLIGAN infrequent 06-21-14: headache in [facility] - zofran 08-01: Neuro: abortive therapy: [...] Dr. Merrill: H/O 4 ER visits in [place] this summer for IV therapy for MULLIGAN- cyproheptadine increased to 12mg dissolvable hs; to use zofran dissolvable 4mg and zomig dissolvable 5mg at onset of MULLIGAN; F/U 3 mon 05-02-15: hosp [facility]- IV toradol, reglan, benadryl; topiramate 25 mg [...] 11/07/2015 02/27/2017 Overview: 3-16:MCPAP assisted therapy through [facility] 7-17 therapist in home or school/[facility] Psychiatry [facility]/Braulio.seroquel 12.5mg once daily.prozac 7.5ml po daily Last Assessment & Plan: 3-16:MCPAP assisted therapy through [facility] 7-17 therapist in home or school/[facility] Psychiatry [facility]/Braulio.seroquel 12.5mg once daily.prozac 7.5ml po daily Family [...] (>6 Months) Split Preservative Free 06/10/2020,05/18/2019,07/07/2018,05/07,06/19/2016,09/01/2015,04/28/2014 MMR (Mruvncu-Aeuue-Cbjeoqf) 05/08/2007, 4 Meningococcal (Menactra) 03/17/2019,02/04/2014 Pneumococcal(Pedi) Conjugate [...] Tdap) 02/05/2024, 05/08/2007, 05/03/2003, Additional history exists BMI CHECK/ADVISE 08/19/2024 03/17/2020, , 03/17/2019, Additional history exists DEPRESSION SCREENING/FOLLOWUP 08/19/2024, 06/10/2020, 05/31/2020, Additional history exists SOCIAL NEEDS SCREENING 08/19/2024 , 03/17/2020, 05/18/2019, Additional history exists INFLUENZA (Season Ended) 2025 020, 05/18/2019, 07/07/2018, Additional history exists CHOLESTEROL SCREENING 06/10/2025 06/10/2020 , 03/26/2018, 01/09/2006 PNEUMOCOCCAL VACCINE FOR HIG H RISK PATIENTS (#1) 11/01/2067 HUMAN PAPILLOMAVIRUS (HPV) Completed 09/16, 04/28/2014, 02/04/2014 Care Teams Hand Stonecutter Relationship Specialty Start Date End Date Lisa Moses MD PCP - General Pediatrics 12/02/17
--- OUTSIDE RECORDS SUMMARY | 2025-01-06 13:01 | XMS_ITS | Encounter Summary ---
Author Organization [facility] Address [address] [place] [address] Care Team Providers Care Health Care Specialist Name Role Phone Lisa Moses MD Primary Care Provider Unavaila ble Reason for Visit * Reason Onset Date Comments Form 07/08/2019 Referral Encounter Details Date Type Department Care Team Description 07/08/2019 Telephone Pediatrics - [address] [address] Angelina Call RNCPNP Form (Referral) Social History [...] on filedocumented in this encounter Care Teams Health Care Specialist Relationship Specialty Start Date End Date Lisa Moses MD PCP - General Pediatrics 12/02/17 documented as of this encounter
--- OUTSIDE RECORDS SUMMARY | 2025-01-06 13:01 | XMS_ITS | Encounter Summary ---
Author Organization [facility] Address [address] [place] [address] Care Team Providers Care Field Logistics Coordinator Name Role Phone Lisa Moses MD Primary Care Provider Unavaila ble Reason for Visit * Reason Onset Date Comments Tso Feedback 07/09/2019 Pedi Gastro Encounter Details Date Type Department Care Team Description 07/09/2019 Telephone Pediatrics - [address] [address] Lisa Moses MD Tso Feedback (Pedi Gastro) Social History Tobacco Use [...] gastro for chronic vomiting within 2-3 weeks. [facility] gastro does not have any appointments available as they are working on releasing the providers' schedules. A message was sent to clinical staff for booking and they are unable to find an opening within the appropriate timeframe. They have advised that the ordering phyisician calls the radiology interventional physician doctor (Dr Peguero) to discuss the urgency of the referral and determine if he is able to see the patient.Please call [facility] Gastro at [phone]. Thank you Ivelisse Referrals Supervisor [employer] documented in this encounter Plan of Treatment Not on file documented as of this encounter Visit Diagnoses Not on filedocumented in this encounter Care Teams Field Logistics Coordinator Relationship Specialty Start Date End Date Lisa Moses MD PCP - General Pediatrics 12/02/17 documented as of this encounter
--- OUTSIDE RECORDS SUMMARY | 2025-01-06 13:01 | XMS_ITS | Encounter Summary ---
Author Organization [facility] Address [address] [place] [address] Care Team Providers Care Revenue Field Agent Name Role Phone Lisa Moses MD Primary Care Provider Delonte richards Encounter Details Date Type Department Care Team Description 09/10/2019 Bird Raiser Report Medical Records [address] [place] [address] Marya Mckeon MD Social History Tobacco Use [...] on filedocumented in this encounter Care Teams Revenue Field Agent Relationship Specialty Start Date End Date Lisa Moses MD PCP - General Pediatrics 12/02/17 documented as of this encounter
--- OUTSIDE RECORDS SUMMARY | 2025-01-06 13:01 | XMS_ITS | Encounter Summary ---
Author Organization [facility] Address [address] [place] [address] Care Team Providers Care Drawer Hardware Worker Name Role Phone Lisa Moses MD Primary Care Provider Unavaila ble Reason for Visit * Reason Onset Date Comments Cold Storage Worker Feedback 07/07/2019 neuropsych or be havioral health Encounter Details Date Type Department Care Team Description 07/07/2019 Telephone Pediatrics - [address] [address] Angelina Call RNCPNP Cold Storage Worker Feedback (neuropsych or behavioral health) Social History [...] testing as recommended by current therapist at [facility] * Telephone Encounter - Kami Fxo - 07/07/2019 1:13 PM EST Angelina, You recently placed a neuropsych referral for this patient to go to [facility] behavioral health for clarify diagnosis/ EDWIN/depression/behavior [...] on filedocumented in this encounter Care Teams Drawer Hardware Worker Relationship Specialty Start Date End Date Lisa Moses MD PCP - General Pediatrics 12/02/17 documented as of this encounter
--- OUTSIDE RECORDS SUMMARY | 2025-01-06 13:01 | XMS_ITS | Encounter Summary ---
Author Organization [facility] Address [address] [place] [address] Care Team Providers Care Gantry Rigger Name Role Phone Lisa Moses MD Primary Care Provider Unavaila ble Reason for Visit * Reason Onset Date Comments Incinerator Plant Supervisor Feedback 03/30/2020 pediatric surger y Encounter Details Date Type Department Care Team Description 03/30/2020 Telephone Pediatrics - [address] [address] Angelina Call RNCPNP Incinerator Plant Supervisor Feedback (pediatric surgery) Social History Tobacco Use [...] on filedocumented in this encounter Care Teams Gantry Rigger Relationship Specialty Start Date End Date Lisa Moses MD PCP - General Pediatrics 12/02/17 documented as of this encounter
--- OUTSIDE RECORDS SUMMARY | 2025-01-06 13:01 | XMS_ITS | Encounter Summary ---
Author Organization [facility] Address [address] [place] [address] Care Team Providers Care Fitting Room Associate Name Role Phone Lisa Moses MD Primary Care Provider Delonte richards Encounter Details Date Type Department Care Team Description 07/14/2019 Production Support Supervisor Report Medical Records [address] [place] [address] Social History Tobacco Use Types Packs/Day Years [...] on filedocumented in this encounter Care Teams Fitting Room Associate Relationship Specialty Start Date End Date Lisa Moses MD PCP - General Pediatrics 12/02/17 documented as of this encounter
== END 2025-01-06 11:52 | disposition home or self-care (01) ==
LOC: HO.LABR 11:51
PROVIDERS: PCP Internal Medicine; Visit Provider Psychiatry & Neurology Psychiatry
DX: Z79.899 Other long term (current) drug therapy (principal)
CPT/HCPCS: 36415; 85025

== ENCOUNTER 2025-01-21 11:10 | Outpatient (REF) | payer OTHER, SELFPAY ==
[2025-01-21 11:26] LABS: MANUAL DIFF FLAG NO
[2025-01-21 12:02] LABS: Basophils Absolute Auto 0.1 X10*3/uL (0.0-0.2); Basophils Percent Auto 0.5 % (0-2); Eosinophils Absolute Auto 0.1 X10*3/uL (0.0-0.4); Hemoglobin 12.2 g/dl (12.0-16.0); Imm Gran Abs Auto 0.06 X10*3/uL (0.00-0.03); Imm Gran Pct Auto 0.6 % (0.0-0.4); Lymphocytes Absolute Auto 1.8 X10*3/uL (1.2-4.9); Lymphocytes Percent Auto 18.8 % (20-40); Mean Corpuscular HGB Conc 32.1 g/dl (31.0-35.0); Mean Corpuscular Hemoglobin 26.8 pg (27.0-33.0); Mean Corpuscular Volume 83.5 fL (80.0-98.0); Mean Platelet Volume 9.9 fL (9.4-12.3); Monocytes Absolute Auto 0.4 X10*3/uL (0.1-1.2); Monocytes Percent Auto 4.1 % (2-11); Neutrophils Absolute Auto 7.4 x10*3/uL (2.0-8.3); Platelet Count 396 X10*3/uL (160-400); Red Blood Count 4.55 X10*6/uL (4.20-5.50); Red Cell Distribution Width 15.1 % (11.0-16.0); White Blood Count 9.8 X10*3/uL (4.8-10.8)
== END 2025-01-21 11:11 | disposition home or self-care (01) ==
LOC: HO.LABR 11:10
PROVIDERS: PCP Internal Medicine; Visit Provider Psychiatry & Neurology Psychiatry
DX: Z79.899 Other long term (current) drug therapy (principal)
CPT/HCPCS: 36415; 85025

== ENCOUNTER 2025-02-04 09:56 | Outpatient (REF) | payer OTHER, SELFPAY ==
[2025-02-04 10:28] LABS: MANUAL DIFF FLAG NO
--- OUTSIDE RECORDS SUMMARY | 2025-02-04 11:02 | XMS_ITS | Encounter Summary ---
Author Organization [facility] Address [address] [place] [address] Care Team Providers Care Oracle Erp Architect Name Role Phone Sylvia Rangel MD Primary Care Provider Unavaildexter e Lisa Moses MD Primary Care Provider Unavaila ble Encounter Details Date Type Department Care Team Description 08/01/2011 Cotton Puller Report Medical Records [address] [place] [address] Chandana Bustamante MD Social History Tobacco Use [...] on filedocumented in this encounter Care Teams Oracle Erp Architect Relationship Specialty Start Date End Date Sylvia Rangel MD PCP - General 02 12/01/17 Lisa Moses MD PCP - General Pediatrics 12/02/17 documented as of this encounter
[2025-02-04 11:18] LABS: Basophils Absolute Auto 0.1 X10*3/uL (0.0-0.2); Basophils Percent Auto 0.4 % (0-2); Eosinophils Absolute Auto 0.1 X10*3/uL (0.0-0.4); Eosinophils Percent Auto 0.9 % (0-4); Hematocrit 39.2 % (37.0-47.0); Hemoglobin 12.5 g/dl (12.0-16.0); Imm Gran Abs Auto 0.06 X10*3/uL (0.00-0.03); Imm Gran Pct Auto 0.4 % (0.0-0.4); Lymphocytes Absolute Auto 2.1 X10*3/uL (1.2-4.9); Mean Corpuscular HGB Conc 31.9 g/dl (31.0-35.0); Mean Corpuscular Hemoglobin 26.7 pg (27.0-33.0); Mean Corpuscular Volume 83.6 fL (80.0-98.0); Mean Platelet Volume 10.2 fL (9.4-12.3); Monocytes Absolute Auto 0.9 X10*3/uL (0.1-1.2); Monocytes Percent Auto 6.2 % (2-11); Neutrophils Absolute Auto 10.7 x10*3/uL (2.0-8.3); Neutrophils Percent Auto 77.1 % (45-73); Platelet Count 429 X10*3/uL (160-400); Red Blood Count 4.69 X10*6/uL (4.20-5.50); Red Cell Distribution Width 15.1 % (11.0-16.0); White Blood Count 13.9 X10*3/uL (4.8-10.8)
== END 2025-02-04 09:57 | disposition home or self-care (01) ==
LOC: HO.LABR 09:56
PROVIDERS: PCP Internal Medicine; Visit Provider Psychiatry & Neurology Psychiatry
DX: Z79.899 Other long term (current) drug therapy (principal)
CPT/HCPCS: 36415; 85025

== ENCOUNTER 2025-02-06 14:58 | Emergency (ER) | payer OTHER, SELFPAY ==
--- NOTE | 2025-02-06 | ECG_ITS ---
Test Reason : TACHYCARDIA Blood Pressure : */* mmHG Vent. Rate : 120 BPM Atrial Rate : 120 BPM P-R Int : 170 ms QRS Dur : 76 ms QT Int : 298 ms P-R-T Axes : 28 29 23 degrees QTcB Int : 421 ms Sinus tachycardia Nonspecific T wave abnormality Abnormal ECG No previous ECGs available Referred By: Generic ED Physician Electronically Signed By: Aníbal Monetz
[2025-02-06 15:21] VITALS: BP 146/97; PULSE 130; RESP 18; TEMP 36.6; O2SAT 98; BMI 44.9
--- NOTE | 2025-02-06 15:57 | ED.GENADULT ---
HPI - General Adult General Chief complaint: General Medical Stated complaint: sore throat,sob started to med on sat. Time Seen by Provider: 02/06/25 15:55 Source: patient and family (Mother) Mode of arrival: ambulatory Limitations: no limitations History of Present Illness ED Provider: Dr. Cedric Nicole HPI narrative: 24 year old female with with a past medical history of schizophrenia, bipolar disorder, intellectual disability presents to the emergency department for evaluation of decreased oral intake, shortness of breath, difficulty swallowing, sore throat since 02/03/2025 (3 days prior). Patient states she has started metformin 5 days prior. Patient states that metformin was started for the patient's weight and not for diabetes. Patient states that since Saturday she has had difficulty swallowing secondary to pain. Patient states she is feeling short of breath at rest and with exertion. She denied fever, chills, rhinorrhea, nausea, vomiting, diarrhea, myalgias arthralgias. She states she has a occasional cough but this is chronic. Related Data Home Medications ?Medication ?Instructions ?Recorded ?Confirmed lamotrigine 25 mg tablet 25 mg PO DAILY 08/18/24 08/18/24 Previous Rx's ?Medication ?Instructions ?Recorded clozapine 100 mg tablet 100 mg PO BEDTIME 30 days #30 tabs 01/31/24 ibuprofen 600 mg tablet 600 mg PO Q6-8H PRN pain (scale 12/18/24 score 4-6) #30 tabs penicillin V potassium 500 mg 500 mg PO Q12H 10 days #20 tabs 02/06/25 tablet Allergies Allergy/AdvReac Type Severity Reaction Status Date / Time haloperidol AdvReac EPS Verified 02/06/25 15:23 metoprolol AdvReac Diarrhea Verified 02/06/25 15:23 Review of Systems Review of Systems: Yes all other systems are reviewed and are negative PMFSH Past Medical History ON LICENSE OF [facility] Narrative: Social history: The patient denies tobacco use. She occasionally drinks alcohol. She denies drug use. Medical History Morbid obesity Schizophrenia Bipolar disorder in remission Intellectual disability Vitamin D deficiency Vitamin B12 deficiency Hx of ovarian cyst Supraventricular tachycardia by ECG Migraine Surgical History H/O removal of cyst Family History Family History Mother Bipolar disorder Mental health disorder Social History Social History Household Members: Family Household Members Other:: Pt unable to answer questions d/t mental status. Housing: House Housing Other:: at home with mother Are you a primary inspector health care facilities to a significant other at home: No Alcohol intake: never Patient Tobacco Use Status: Never used Tobacco e-Cigarette/Vaping Use: Never Used Second Hand Smoke Exposure: No Substance Use Type: Unknown Advance Directives: Yes Advance Directives on File: Yes Advance Directives Date on File: 12/10/23 Do you have a plan to hurt others: No Plan service: No Current occupational status: unemployed Sexual orientation: Straight/Heterosexual Gender identity: Female Cognitive needs: No Hearing needs: No Vision needs: No Physical Exam ED Vital Signs: Vital Signs - 24 hr 02/06/25 15:21 Temperature 97.8 F Pulse Rate 130 H Respiratory Rate 18 Blood Pressure 146/97 H Pulse Oximetry 98 Oxygen Delivery Method Room Air BMI result Body Mass Index 44.9 Vital signs revealed an elevated heart rate of 130 and elevated blood pressure of 146/97 Exam: General: Awake, alert in no distress Head: Normocephalic, atraumatic EENT: PERRL, Lids normal, sclera normal, conjunctiva normal, nose normal , ears normal, mouth: Moist mucous membranes, posterior erythema with bilateral exudates, no asymmetry of the tonsils, uvula is midline, no trismus Neck: Supple, no adenopathy Lung: breath sounds symmetric, no wheezing, rales or rhonchi Chest: symmetric movement, nontender Heart: Tachycardia with a regular rhythm, normal S1, S2 no murmurs or rubs Abdomen: soft, non-tender, nondistended, normal bowel sounds Extremities: no deformities, moves all extremities symmetrically Psych: Pleasant, cooperative Medical Decision Making Medical Decision Making MDM Narrative: 24 year old female with with a past medical history of schizophrenia, bipolar disorder, intellectual disability presents to the emergency department for evaluation of decreased oral intake, shortness of breath, difficulty swallowing, sore throat since 02/03/2025 (3 days prior). Patient states she has started metformin 5 days prior. Patient states that metformin was started for the patient's weight and not for diabetes. Patient states that since Saturday she has had difficulty swallowing secondary to pain. Patient states she is feeling short of breath at rest and with exertion. She denied fever, chills, rhinorrhea, nausea, vomiting, diarrhea, myalgias arthralgias. She states she has a occasional cough but this is chronic. Vital signs revealed an elevated blood pressure and an elevated heart rate. Patient states she has a chronic of the elevated heart rate. Throat exam did reveal posterior erythema with exudates, uvula midline, no asymmetric swelling and no trismus Admission/Observation Consideration of admission/observation: Escalation of care including admission/observation considered (Yes) Lab Data MDM Lab Attestation statement: I reviewed the patient's lab results. 02/06/25 15:55 02/06/25 15:55 Labs: Lab Results 02/06/25 02/06/25 Range/Units 15:55 16:09 WBC 12.7 H (4.8-10.8) X10*3/uL RBC 4.94 (4.20-5.50) X10*6/uL Hgb 13.4 (12.0-16.0) g/dl Hct 40.6 (37.0-47.0) % MCV 82.2 (80.0-98.0) fL MCH 27.1 (27.0-33.0) pg MCHC 33.0 (31.0-35.0) g/dl RDW 15.0 (11.0-16.0) % Plt Count 422 H (160-400) X10*3/uL MPV 9.3 L (9.4-12.3) fL Immature Gran % (Auto) 0.5 H (0.0-0.4) % Neut % (Auto) 73.6 H (45-73) % Lymph % (Auto) 18.1 L (20-40) % Highland % (Auto) 6.5 (2-11) % Eos % (Auto) 0.9 (0-4) % Baso % (Auto) 0.4 (0-2) % Lymph # (Auto) 2.3 (1.2-4.9) X10*3/uL Highland # (Auto) 0.8 (0.1-1.2) X10*3/uL Eos # (Auto) 0.1 (0.0-0.4) X10*3/uL Baso # (Auto) 0.1 (0.0-0.2) X10*3/uL Abs Immat Gran (auto) 0.06 H (0.00-0.03) X10*3/uL Absolute Neuts (auto) 9.4 H (2.0-8.3) x10*3/uL Absolute Nucleated RBC 0.000 (0.0-0.012) X10*3/uL Nucleated RBC % (auto) 0.0 (0.0-0.2) /100WBC Hold Blue Top SEE NOTE Sodium 139 (135-145) mmol/L Potassium 4.2 (3.3-5.1) mmol/L Chloride 108 (96-108) mmol/L Carbon Dioxide 22 (22-29) mmol/L Anion Gap 13 (12-20) BUN 4 L (9-16) mg/dL Creatinine 0.62 (0.5-1.4) mg/dL Estim Creat Clear Calc 155.1 Estimated GFR > 60 Random Glucose 91 (60-115) mg/dL Calcium 9.7 (8.4-10.2) mg/dL Magnesium 2.1 (1.6-2.6) mg/dL Total Bilirubin 0.3 (0.0-1.0) mg/dL AST 21 (5-31) U/L ALT 17 (0-31) U/L Alkaline Phosphatase 150 H (39-117) U/L Troponin I High Sens < 2.7 (<3.5-17.0) ng/L Total Protein 7.9 (6.5-8.0) g/dL Albumin 4.7 (3.5-5.0) g/dL S. pyogenes GrpA DEBBIE Negative (Negative) Discharge Plan Discharge Clinical Impression: Acute bacterial pharyngitis Patient Disposition: Home, Self-Care Instructions: Pharyngitis (ED) Additional Instructions: Your heart rate was fast, your EKG however just showed a fast heart rate but otherwise was unremarkable You had a complete blood count, comprehensive metabolic panel and troponin test here in the emergency department today. These tests were all normal except for slight elevation in your white blood cell count. Your rapid strep test was negative however there other bacteria besides Streptococcus that can cause bacterial throat infections Take penicillin 500 mg pills, 1 pill every 12 hours for 10 days. Make sure you complete the entire course of antibiotics Take ibuprofen 200 mg pills, 2 pills (400 mg) every 6 hours (3 times a) for the next 3-4 days to help with your 3-[address] a tsp of salt in 8 oz of warm water and gargle this salt water 3 times a day for the next 2-3 days to help improve your throat pain Follow-up with your doctor in 2 days. Please return to the emergency department if your symptoms get worse or if you develop any symptoms that are concerning to you. Prescriptions: New penicillin V potassium 500 mg tablet 500 mg PO Q12H 10 Days Qty: 20 0RF No Action clozapine 100 mg tablet 100 mg PO BEDTIME 30 Days Qty: 30 0RF ibuprofen 600 mg tablet 600 mg PO Q6-8H PRN (Reason: pain (scale score 4-6)) Qty: 30 0RF lamotrigine 25 mg tablet 25 mg PO DAILY Print Language: Sri Lankan
[2025-02-06 16:00] LABS: MANUAL DIFF FLAG NO
[2025-02-06 16:02] LABS: Basophils Absolute Auto 0.1 X10*3/uL (0.0-0.2); Basophils Percent Auto 0.4 % (0-2); Eosinophils Absolute Auto 0.1 X10*3/uL (0.0-0.4); Eosinophils Percent Auto 0.9 % (0-4); Hematocrit 40.6 % (37.0-47.0); Hemoglobin 13.4 g/dl (12.0-16.0); Imm Gran Abs Auto 0.06 X10*3/uL (0.00-0.03); Imm Gran Pct Auto 0.5 % (0.0-0.4); Lymphocytes Absolute Auto 2.3 X10*3/uL (1.2-4.9); Lymphocytes Percent Auto 18.1 % (20-40); Mean Corpuscular Hemoglobin 27.1 pg (27.0-33.0); Mean Corpuscular Volume 82.2 fL (80.0-98.0); Mean Platelet Volume 9.3 fL (9.4-12.3); Monocytes Absolute Auto 0.8 X10*3/uL (0.1-1.2); Monocytes Percent Auto 6.5 % (2-11); Neutrophils Absolute Auto 9.4 x10*3/uL (2.0-8.3); Neutrophils Percent Auto 73.6 % (45-73); Platelet Count 422 X10*3/uL (160-400); Red Blood Count 4.94 X10*6/uL (4.20-5.50); White Blood Count 12.7 X10*3/uL (4.8-10.8)
[2025-02-06 16:14] LABS: Alanine Aminotransferase 17 U/L (0-31); Albumin Level 4.7 g/dL (3.5-5.0); Anion Gap 13 (12-20); Aspartate Amino Transferase 21 U/L (5-31); Bilirubin Total 0.3 mg/dL (0.0-1.0); Blood Urea Nitrogen 4 mg/dL (9-16); Calcium 9.7 mg/dL (8.4-10.2); Carbon Dioxide 22 mmol/L (22-29); Chloride 108 mmol/L (96-108); Creatinine Clr Calc Pharmacy 155.1; Estimated Glomerular Filt Rate > 60; Glucose Random 91 mg/dL (60-115); Magnesium 2.1 mg/dL (1.6-2.6); Potassium 4.2 mmol/L (3.3-5.1); Sodium 139 mmol/L (135-145); Total Protein 7.9 g/dL (6.5-8.0)
[2025-02-06 16:15] LABS: Alkaline Phosphatase 150 U/L (39-117)
[2025-02-06 16:22] LABS: Troponin-I High Sensitivity < 2.7 ng/L (<3.5-17.0)
[2025-02-06 16:24] LABS: IDNOW Serial# 55D5AD1C; Strep A Nucleic Acid Negative (Negative)
[2025-02-06 16:47] VITALS: BP 119/71; PULSE 118; RESP 18; TEMP 36.4; O2SAT 98
[2025-02-06] MEDS: Penicillin V Potassium 250 MG TABLET 500 MG PO (16:47)
[2025-02-06] MEDS: Ibuprofen 400 MG TABLET PO (16:47)
[2025-02-06 16:49] VITALS: BP 119/71; PULSE 118; RESP 18; TEMP 36.4; O2SAT 98
== END 2025-02-06 16:50 | disposition home or self-care (01) ==
PROVIDERS: Emergency Provider Emergency Medicine Emergency Medical Services; PCP Internal Medicine
DX: J02.9 Acute pharyngitis, unspecified (principal); R06.02 Shortness of breath; E66.01 Morbid (severe) obesity due to excess calories; Z68.41 Body mass index [BMI] 40.0-44.9, adult; Z79.899 Other long term (current) drug therapy
CPT/HCPCS: 36415; 80053; 83735; 84484; 85025; 87651; 93005; 99283; 99284

== ENCOUNTER → 2025-02-06 15:31 | Outpatient (BNV) | payer OTHER, SELFPAY | PROVIDERS: Emergency Provider Emergency Medicine Emergency Medical Services; PCP Internal Medicine; Visit Provider Internal Medicine Cardiovascular Disease | DX: R00.0 Tachycardia, unspecified (principal) | CPT/HCPCS: 93010 ==

== ENCOUNTER 2025-02-16 16:05 | Outpatient (REF) | payer OTHER, SELFPAY ==
[2025-02-16 16:21] LABS: MANUAL DIFF FLAG NO
[2025-02-16 17:09] LABS: Hematocrit 38.0 % (37.0-47.0); Hemoglobin 12.4 g/dl (12.0-16.0); Imm Gran Abs Auto 0.03 X10*3/uL (0.00-0.03); Imm Gran Pct Auto 0.3 % (0.0-0.4); Lymphocytes Absolute Auto 2.6 X10*3/uL (1.2-4.9); Mean Corpuscular HGB Conc 32.6 g/dl (31.0-35.0); Mean Corpuscular Hemoglobin 26.7 pg (27.0-33.0); Mean Corpuscular Volume 81.9 fL (80.0-98.0); NRBC Abs Auto 0.000 X10*3/uL (0.0-0.012); NRBC Pct Auto 0.0 /100WBC (0.0-0.2); Platelet Count 439 X10*3/uL (160-400); Red Blood Count 4.64 X10*6/uL (4.20-5.50); White Blood Count 11.7 X10*3/uL (4.8-10.8)
== END 2025-02-16 16:06 | disposition home or self-care (01) ==
LOC: HO.LABR 16:05
PROVIDERS: PCP Internal Medicine; Visit Provider Psychiatry & Neurology Psychiatry
DX: Z79.899 Other long term (current) drug therapy (principal)
CPT/HCPCS: 36415; 85025

== ENCOUNTER 2025-03-04 08:27 | Outpatient (REF) | payer OTHER, SELFPAY ==
[2025-03-04 08:43] LABS: MANUAL DIFF FLAG NO
[2025-03-04 08:56] LABS: Hematocrit 38.6 % (37.0-47.0); Hemoglobin 12.8 g/dl (12.0-16.0); Imm Gran Abs Auto 0.03 X10*3/uL (0.00-0.03); Imm Gran Pct Auto 0.4 % (0.0-0.4); Lymphocytes Absolute Auto 2.1 X10*3/uL (1.2-4.9); Mean Corpuscular HGB Conc 33.2 g/dl (31.0-35.0); Mean Corpuscular Hemoglobin 27.0 pg (27.0-33.0); Mean Corpuscular Volume 81.4 fL (80.0-98.0); NRBC Abs Auto 0.000 X10*3/uL (0.0-0.012); NRBC Pct Auto 0.0 /100WBC (0.0-0.2); Platelet Count 431 X10*3/uL (160-400); Red Blood Count 4.74 X10*6/uL (4.20-5.50); White Blood Count 8.1 X10*3/uL (4.8-10.8)
== END 2025-03-04 08:28 | disposition home or self-care (01) ==
LOC: HO.LAB 08:27
PROVIDERS: PCP Internal Medicine; Visit Provider Psychiatry & Neurology Psychiatry
DX: Z79.899 Other long term (current) drug therapy (principal)
CPT/HCPCS: 36415; 85025

== ENCOUNTER 2025-03-17 08:35 | Outpatient (AMB) | payer OTHER, SELFPAY ==
--- OUTSIDE RECORDS SUMMARY | 2025-03-17 08:50 | XMS_ITS | Clinical Summary ---
Author Organization [facility] Address [address] [place] [address] [place] [phone] Phone Care Team Providers Care Vice President Network Name Role Phone Unknown, Unknown Primary Care Provider Ancelmo lozano Social History Tobacco Use Types Packs/Day Years Used Date Smoking Tobacco: Never Assessed Education Answer Date Recorded Are you interested in more education? Not on yaya e 12/14/2022 Are you concerned about learning? Not on file 12/14/2022 No 12/14/2022 No 12/14/2022 Digital Access Answer Date Recorded No 01/14/2023 No 01/14/2023 No 01/14/2023 Reliable internet access at home? Not on file 01/14/2023 Device with a working camera? Not on file Comments Unknown Sex and Gender Information Value Date Recorded Sex Assigned at Not on file Legal Sex Female 4:46 PM EDT Gender Identity Not on file Sexual Orientation Not on file Plan of Treatment Health Maintenance Due Date Last Done Comments DEPRESSION SCREENING 2014 SMOKING Hx and SMOKELESS TOBACCO SCREENING 11/01/2015 CHLAMYDIA SCREENING 2018 MENINGOCOCCAL VACCINES (B) (1 of 2 - Standard) 2018 HEPATITIS C SCREENING 2020 HIV ONE-TIME SCREENING (18-65 YEARS) 2020 PAP SMEAR 11/01/2023 Adult Td,Tdap Booster 02/05/2024 02/04/2014 COVID-19 VACCINE ( season) 2024 02/16/2021, 01/26/2021 HIB VACCINES Completed 02/03/2004, 01/17, 05/03/2003, Additional history exists PNEUMOCOCCAL VACCINES (0-49 years) Aged Out 05/12/2004, 05/03/2003, 03/09/2003, Additional history exists No longer eligible based on patient's age to complete this topic HPV VACCINES Completed 09/16/2014, 04/19, 02/04/2014 MENINGOCOCCAL VACCINES (ACWY) Completed 03/17/2019, 02/04/2014 HEPATITIS A VACCINES Aged Out No long er eligible based on patient's age to complete this topic Medical Devices Not on file Insurance [place] [facility] Care Teams Vice President Network Relationship Specialty Start Date End Date Unknown, Unknown, PCP - General 03/16/17 Additional Source Comments The information contained in this document represents components of the legal health record. It is not the complete legal health record.[facility]
--- OUTSIDE RECORDS SUMMARY | 2025-03-17 08:50 | XMS_ITS | Clinical Summary ---
Author Organization [facility] Address [address] [place] [address] Care Team Providers Care Master [employer] Name Role Phone Unknown, Pcp MD Primary Care Provider Unavailabl e Allergies No known active allergies Medications POLYETHYLENE GLYCOL 3350 (MIRALAX ORAL) Take by mouth. Active Social History Tobacco Use Types Packs/Day Years Used Date Smoking Tobacco: Never Assessed Comments Unknown Sex and Gender Information Value Date Recorded Sex Assigned at Not on file Legal Sex Female 5:42 PM EDT Gender Identity Not on file Sexual Orientation Not on file Last Filed Vital Signs Vital Sign Reading Time Taken Comments Blood Pressure 117/78 01/15/2015 5:49 PM EDT Pulse 104 01/15/2015 9:43 PM EDT Temperature 36.6 C (97.9 F) 01/15/2015 9:43 PM EDT Respiratory Rate 21 01/15/2015 9:43 PM EDT Oxygen Saturation 98% 01/15/2015 9:43 PM EDT Inhaled Oxygen Concentration - - Weight 40 kg (88 lb 2.9 oz) 01/15/2015 5:49 PM E DT Height - - Body Mass Index - - Plan of Treatment Not on file Insurance [facility] Care Teams Master [employer] Relationship Specialty Start Date End Date Unknown, Pcp, Unknown Address Unknown [place] [id number] PCP - General 01/15/15
--- NOTE | 2025-03-17 09:25 | AM.OFFWIN_ITS ---
Intake Vital Signs 03/17/25 09:26 Height 5 ft Weight 233 lb BMI 45.5 Pulse 122 H Pulse Source Palpation Temp 98.7 F Temp Source Oral Pulse Oximetry (%) 98 Oxygen Delivery Method Room Air Intake Visit Reasons: EP pain in pelvic area Intake Note: presents with pelvic pain and nausea for 4 days, denies any urinating/bladder or GI issues Patient Tobacco Use Status: Never used Tobacco Allergies haloperidol Adverse Reaction (Verified 03/17/25 09:29) EPS metoprolol Adverse Reaction (Verified 03/17/25 09:29) Diarrhea Do you need a note to return to daycare/school/sports/work: No HPI HPI Comments History of Present Illness Details History - The patient is a 24-year-old female wi th a past med hx of ID, bipolar, schizophrenia presenting with a few days of abdominal pain and nausea. - Abdominal pain is localized in the low er abdomen with tenderness. - Nausea and vomiting x1 present, no fev er or urinary symptoms. - Is sexually active, usually uses a con dom, doesn't think she has a STI, she denies vaginal discharge. - Menstrual irregularity with last perio d in early February, currently due. - Has been eating and drinking normally. Physical Exam General: Cooperative, healthy appearing, comfortable, no acute distress and well developed Orientation: Patient oriented x3 Limitations: No limitations Head: Normal to inspection Ears: Hearing grossly normal bilaterally Nose: Normal External nose present Face and sinus: Normal facial exam Mouth: normal, moist oral mucosa Eyes: Appearance normal, both eyes and all related structures Neck: Normal visual inspection and Yes full ROM Respiratory: Normal respiratory effort and able to speak in complete sentences. GI: soft, + abbott's, TTP RLQ and LLQ and suprapubic Skin: no rashes or lesions noted Neuro: Patient oriented x3 Extremities: moving all extremities normally PFSH Medical History Morbid obesity Schizophrenia Bipolar disorder in remission Intellectual disability Vitamin D deficiency Vitamin B12 deficiency Hx of ovarian cyst Supraventricular tachycardia by ECG Migraine Surgical History H/O removal of cyst Family History Mother Bipolar disorder Mental health disorder Social History Household Members: Family Household Members Other:: Pt unable to answer questions d/t mental status. Housing: House Housing Other:: at home with mother Are you a primary career center advisor to a significant other at home: No Alcohol intake: never Patient Tobacco Use Status: Never used Tobacco e-Cigarette/Vaping Use: Never Used Second Hand Smoke Exposure: No Substance Use Type: Unknown Advance Directives Date on File: 12/10/23 service: No Current occupational status: unemployed Sexual orientation: Straight/Heterosexual Gender identity: Female Cognitive needs: No Hearing needs: No Vision needs: No Female Reproductive History Menstrual Age of Menarche: 14 Review of Systems Const All systems reviewed & are unremarkable except as noted in HPI and below Physical Exam Vital Signs: Last Vital Signs Temp 98.7 F 03/17/25 09:26 Pulse 122 H 03/17/25 09:26 Pulse Ox 98 03/17/25 09:26 Oxygen Delivery Method Room Air 03/17/25 09:26 BMI result Body Mass Index 45.5 Assessment & Plan Assessment & Plan (1) Lower abdominal pain: Code(s): R10.30 - Lower abdominal pain, unspecified Plan: Plan Patient was informed and verbally consented to the use of an ambient scribe for clinic note documentation during this visit Lower Abdominal Pain - Unable to perform urine analysis, STI testing or test as pt unable to urinate. - With tachycardia at 122BPM, exquisite lower abdominal tenderness on exam and vomiting, chance of , we will send patient to the emergency room to rule out ectopic amongst other abdominal pathology. Also had a + Abbott's. -Called [facility] with expect, spoke with Giselle at 10:17AM. Coding Level of Care Code Est Pt Level 5 (94952) Diagnoses Lower abdominal pain R10.30
[2025-03-17 09:26] VITALS: PULSE 122; TEMP 37.1; O2SAT 98; BMI 45.5
== END 2025-03-17 10:15 | disposition home or self-care (01) ==
PROVIDERS: PCP Internal Medicine; Visit Provider Physician Assistant
DX: R10.30 Lower abdominal pain, unspecified (principal)

== ENCOUNTER → 2025-03-17 08:35 | Outpatient (BNVA) | payer OTHER, SELFPAY | PROVIDERS: PCP Internal Medicine; Visit Provider Physician Assistant | DX: R10.30 Lower abdominal pain, unspecified (principal); R10.2 Pelvic and perineal pain; R11.0 Nausea | CPT/HCPCS: 99212 ==

== ENCOUNTER 2025-03-17 10:33 | Emergency (ER) | payer OTHER, SELFPAY ==
--- NOTE | ~2025-03-17 | US_ITS ---
EXAMINATION: US PELVIS CLINICAL INFORMATION: [Pelvic pain, left COMPARISON: February 25, 2024 TECHNIQUE: Ultrasound of the pelvis is performed using both transabdominal transducers along with Doppler. Transvaginal imaging was not performed due to pain. FINDINGS: Uterus: The uterus is anteverted and measures 6 x 1.9 x 3.3 cm. The double wall endometrial thickness is 3 mm. The uterus is smooth in contour and has normal myometrial echogenicity. No visible fibroid. Adnexa: Right ovary is nonvisualized. Left ovary measures 6.1 x 4.5 x 6.0 cm. Arterial and venous waveforms are documented. There is a simple anechoic cyst that measures 6.0 x 4.3 x 5.8 cm, previously 4.5 x 4.6 x 5.1 cm. US/US pelvic complete IMPRESSION: Simple left ovarian cyst measuring 6.0 cm long axis shows interval increase in size. Recommend repeat ultrasound in 6-12 months. Nonvisualized right ovary. Limited exam, patient unable to tolerate transvaginal ultrasound. Electronically signed by: Shashank Grant MD 03/17/2025 12:54 PM EDT
[2025-03-17 11:04] VITALS: BP 123/72; PULSE 116; RESP 16; TEMP 36.8; O2SAT 97; BMI 45.6
--- NOTE | 2025-03-17 11:05 | ED_ITS ---
HPI - General Adult General Chief complaint: Abdominal Pain Stated complaint: pelvic pain Time Seen by Provider: 03/17/25 11:44 Source: patient and family Mode of arrival: ambulatory Limitations: no limitations History of Present Illness ED Provider: HPI narrative: 24-year-old female presenting with left lower quadrant pain x5 days, no vaginal bleeding or discharge, last normal menstrual period beginning of this month, sexually active with 1 partner, no fevers or chills no nausea or vomiting, has history of ovarian cysts. Here with mom Related Data Home Medications ?Medication ?Instructions ?Recorded ?Confirmed clonidine HCl 0.1 mg tablet 0.1 mg PO BID PRN anxiety 03/17/25 lamotrigine 100 mg tablet 100 mg PO DAILY 03/17/25 metformin 500 mg tablet 500 mg PO DAILY 03/17/25 Previous Rx's ?Medication ?Instructions ?Recorded clozapine 100 mg tablet 100 mg PO BEDTIME 30 days #3 0 tabs 01/31/24 ibuprofen 600 mg tablet 600 mg PO Q6-8H PRN pain (sc puneet 12/18/24 score 4-6) #30 tabs Allergies Allergy/AdvReac Type Severity Reaction Status Date / Time haloperidol AdvReac EPS Verified 03/17/25 11:10 metoprolol AdvReac Diarrhea Verified 03/17/25 11:10 Review of Systems 2 Constitutional: Constitutional: Reports as per HPI [facility] Past Medical History Medical History Morbid obesity Schizophrenia Bipolar disorder in remission Intellectual disability Vitamin D deficiency Vitamin B12 deficiency Hx of ovarian cyst Supraventricular tachycardia by ECG Migraine Surgical History H/O removal of cyst Family History Family History Mother Bipolar disorder Mental health disorder Social History Social History Household Members: Family Household Members Other:: Pt unable to answer questions d/t mental status. Housing: House Housing Other:: at home with mother Are you a primary residential caregiver to a significant other at home: No Alcohol intake: never Patient Tobacco Use Status: Never used Tobacco Smoked in Last 30 Days: No e-Cigarette/Vaping Use: Never Used Second Hand Smoke Exposure: No Use of substances other than those prescribed or required for medical reasons: No Substance Use Type: Unknown Advance Directives: Yes Advance Directives on File: Yes Advance Directives Date on File: 12/10/23 service: No Current occupational status: unemployed Sexual orientation: Straight/Heterosexual Gender identity: Female Cognitive needs: No Hearing needs: No Vision needs: No Physical Exam ED Vital Signs: Vital Signs - 24 hr 03/17/25 11:04 03/17/25 11:28 Temperature 98.2 F 98.5 F Pulse Rate 116 H 115 H Respiratory Rate 16 16 Blood Pressure 123/72 140/89 H Pulse Oximetry 97 97 Oxygen Delivery Method Room Air Room Air BMI result Body Mass Index 45.6 Const Other: * Gen: ?Overall well-appearing patient * CV: RRR, no obvious murmurs appreciated * Resp: ?No wheezing rales rhonchi no stridor moving air well * Abd: ?Bowel sounds are present, isolated left lower quadrant tenderness, negative Abbott's sign as documented by midlevel provider at [facility], deferred * MSK: FROM, strength 5/5 all extremities * Skin: Warm, dry, intact, * Neuro: ?Alert and oriented x3, moving upper and lower extremities symmetrically, no obvious facial asymmetry noted Course Course Course Narrative: RME, this is a rapid medical exam performed by Alvin Harris please refer to primary provider for complete H&P- 24-year-old female presents for evaluation of lower abdominal/pelvic pain. She has a history of ovarian cyst. The patient reports vomiting 1 time. Plan for basic labs, urinalysis and . Will defer any potential advanced imaging to primary ER provider Medications Administered Discontinued Medications Generic Name Dose Route Start Last Admin Trade Name Tomq PRN Reason Stop Dose Admin Acetaminophen 975 mg 03/17/25 11:54 03/17/25 12:08 Acetaminophen 325 Mg Tablet PO 03/17/25 11:55 975 mg ONCE ONE Administration Ketorolac Tromethamine 15 mg 03/17/25 11:54 03/17/25 12:09 Ketorolac Tromethamine 15 Mg/Ml Vial IM 03/17/25 11:55 15 mg ONCE ONE Administration Medical Decision Making Medical Decision Making MDM Narrative: Presenting with left lower quadrant abdominal pain, fairly isolated to the left lower quadrant without any other findings to suspect that this is related to appendicitis, no tenderness in the suprapubic or right lower quadrant tenderness, negative Abbott's sign to suspect underlying biliary pathology we will obtain ultrasound, symptomatic control, re-evaluate determine disposition 13:30 patient re-evaluated, she is feeling better, discussed ultrasound findings with her and her mom, will discharge Differential Diagnosis Differential Diagnoses: The differential diagnosis associated with the presentation includes (Ovarian torsion, ovarian cysts, ectopic , appendicitis, colitis, musculoskeletal pain, hernias) Admission/Observation Consideration of admission/observation: Escalation of care including admission/observation considered 2022 Emergency Medicine Coding Guide from [employer] on 03/17/2025 All calculations should be rechecked by clinician prior to use RESULT SUMMARY: 5 Estimated Level of Service Problems: Moderate (4) Risk: High (5) Data: Extensive (5) NARRATIVE MDM: This patient's problem complexity is Moderate as patient: has a new undiagnosed problem with uncertain prognosis but that could be serious. This patient's risk is High due to: overall presentation requiring evaluation for a potentially High-risk process. This patient's data complexity is Extensive due to: -multiple tests ordered -independent interpretation of imaging or EKG INPUTS: Number and Complexity ?> 5 = 4: undiagnosed new problem, uncertain outcome (e) Risk level ?> 4 = High Tests ordered ?> 3 = =3 Tests results reviewed (excluding labs) ?> 1 = 1 Prior external notes reviewed ?> 0 = 0 Assessment requiring and independent historian ?> 0 = No Independent interpretation of tests ?> 1 = Yes Discussed management/test interpretation w/external professional ?> 0 = No Lab Data [facility] Lab Attestation statement: I reviewed the patient's lab results. 03/17/25 11:12 03/17/25 11:12 Labs: Lab Results 03/17/25 Range/Units 11:12 WBC 11.1 H (4.8-10.8) X10*3/uL RBC 4.88 (4.20-5.50) X10*6/uL Hgb 13.2 (12.0-16.0) g/dl Hct 39.6 (37.0-47.0) % MCV 81.1 (80.0-98.0) fL MCH 27.0 (27.0-33.0) pg MCHC 33.3 (31.0-35.0) g/dl RDW 15.0 (11.0-16.0) % Plt Count 430 H (160-400) X10*3/uL MPV 9.0 L (9.4-12.3) fL Immature Gran % (Auto) 0.4 (0.0-0.4) % Neut % (Auto) 75.3 H (45-73) % Lymph % (Auto) 15.3 L (20-40) % [place] % (Auto) 7.5 (2-11) % Eos % (Auto) 1.0 (0-4) % Baso % (Auto) 0.5 (0-2) % Lymph # (Auto) 1.7 (1.2-4.9) X10*3/uL [place] # (Auto) 0.8 (0.1-1.2) X10*3/uL Eos # (Auto) 0.1 (0.0-0.4) X10*3/uL Baso # (Auto) 0.1 (0.0-0.2) X10*3/uL Abs Immat Gran (auto) 0.04 H (0.00-0.03) X10*3/uL Absolute Neuts (auto) 8.3 (2.0-8.3) x10*3/uL Absolute Nucleated RBC 0.000 (0.0-0.012) X10*3/uL Nucleated RBC % (auto) 0.0 (0.0-0.2) /100WBC Sodium 140 (135-145) mmol/L Potassium 4.0 (3.3-5.1) mmol/L Chloride 110 H (96-108) mmol/L Carbon Dioxide 23 (22-29) mmol/L Anion Gap 11 L (12-20) BUN 4 L (9-16) mg/dL Creatinine 0.63 (0.5-1.4) mg/dL Estim Creat Clear Calc 154.1 Estimated GFR > 60 Random Glucose 98 (60-115) mg/dL Calcium 9.0 D (8.4-10.2) mg/dL Total Bilirubin 0.2 (0.0-1.0) mg/dL AST 18 (5-31) U/L ALT 12 (0-31) U/L Alkaline Phosphatase 120 H (39-117) U/L Total Protein 7.6 (6.5-8.0) g/dL Albumin 4.6 (3.5-5.0) g/dL Lipase 9 (8-78) U/L Beta HCG, Quant < 2 mIU/mL Independent Interpretation I performed an independent interpretation of an: Ultrasound (No obvious ovarian masses,) Radiology Impression Discussion of test interpretation with radiology: I have reviewed the radiologist's reading. ( US/US pelvic complete IMPRESSION: Simple left ovarian cyst measuring 6.0 cm long axis shows interval increase in size. Recommend repeat ultrasound in 6-12 months. Nonvisualized right ovary. Limited exam, patient unable to tolerate transvaginal ultrasound.) Independent Historian Clinical information obtained from an independent historian. History obtained from or confirmed by: Parent External Record Review External record reviewed: Outpatient record Tests considered The following testing was considered but not selected: CT abdomen and pelvis Prescription Management I considered prescription management with: Pain Medication Discharge Plan Discharge Clinical Impression: Ovarian cyst Patient Disposition: Home, Self-Care Additional Instructions: You can use ibuprofen 400 mg every 6 hours, warm compress, Tylenol 975 mg for additional pain control, a blood work, test negative, ultrasound are all reassuring there was a simple left-sided ovarian cyst slightly larger than. Prior ultrasound, please follow up with the scientific laboratory supervisor, that this continues to give you symptoms you may need to be on control pills and monitored by bessemer bottom maker. Any other issues concerns that you concerned about come back to the ER Prescriptions: No Action clozapine 100 mg tablet 100 mg PO BEDTIME 30 Days Qty: 30 0RF ibuprofen 600 mg tablet 600 mg PO Q6-8H PRN (Reason: pain (scale score 4-6)) Qty: 30 0RF metformin 500 mg tablet 500 mg PO DAILY clonidine HCl 0.1 mg tablet 0.1 mg PO BID PRN (Reason: anxiety) lamotrigine 100 mg tablet 100 mg PO DAILY Print Language: Puerto [place]ican
[2025-03-17 11:17] LABS: MANUAL DIFF FLAG NO
[2025-03-17 11:20] LABS: Hematocrit 39.6 % (37.0-47.0); Hemoglobin 13.2 g/dl (12.0-16.0); Imm Gran Abs Auto 0.04 X10*3/uL (0.00-0.03); Imm Gran Pct Auto 0.4 % (0.0-0.4); Lymphocytes Absolute Auto 1.7 X10*3/uL (1.2-4.9); Mean Corpuscular HGB Conc 33.3 g/dl (31.0-35.0); Mean Corpuscular Hemoglobin 27.0 pg (27.0-33.0); Mean Corpuscular Volume 81.1 fL (80.0-98.0); NRBC Abs Auto 0.000 X10*3/uL (0.0-0.012); NRBC Pct Auto 0.0 /100WBC (0.0-0.2); Platelet Count 430 X10*3/uL (160-400); Red Blood Count 4.88 X10*6/uL (4.20-5.50); White Blood Count 11.1 X10*3/uL (4.8-10.8)
[2025-03-17 11:28] VITALS: BP 140/89; PULSE 115; RESP 16; TEMP 36.9; O2SAT 97
--- NOTE | 2025-03-17 11:28 | PC.NURSE ---
Pt roomed changed and placed on 08/20 monitor- NAD, c/o lower bilat quad abd pain. with nausea. has not vomited here but reports at home and at walk in clinic. No other complaints. VSS
[2025-03-17 11:38] LABS: Alanine Aminotransferase 12 U/L (0-31); Albumin Level 4.6 g/dL (3.5-5.0); Alkaline Phosphatase 120 U/L (39-117); Anion Gap 11 (12-20); Aspartate Amino Transferase 18 U/L (5-31); Blood Urea Nitrogen 4 mg/dL (9-16); Calcium 9.0 mg/dL (8.4-10.2); Carbon Dioxide 23 mmol/L (22-29); Chloride 110 mmol/L (96-108); Creatinine Clr Calc Pharmacy 154.1; Estimated Glomerular Filt Rate > 60; Lipase 9 U/L (8-78); Potassium 4.0 mmol/L (3.3-5.1); Sodium 140 mmol/L (135-145); Total Protein 7.6 g/dL (6.5-8.0)
[2025-03-17 13:45] VITALS: BP 140/89; PULSE 115; RESP 16; TEMP 36.9; O2SAT 97
== END 2025-03-17 13:46 | disposition home or self-care (01) ==
PROVIDERS: Physician Assistant; Emergency Provider Emergency Medicine; PCP Internal Medicine
DX: N83.202 Unspecified ovarian cyst, left side (principal); R10.32 Left lower quadrant pain
CPT/HCPCS: 36415; 76856; 80053; 83690; 84702; 85025; 96372; 99284; J1885

== ENCOUNTER 2025-03-18 08:43 | Outpatient (REF) | payer OTHER, SELFPAY ==
--- OUTSIDE RECORDS SUMMARY | 2025-03-18 08:54 | XMS_ITS | Encounter Summary ---
Author Organization [facility] Address [address] [place] [address] Care Team Providers Care Therapeutic Specialist Name Role Phone Sylvia Rangel MD Primary Care Provider Unavaildexter e Lisa Moses MD Primary Care Provider Unavaila ble Encounter Details Date Type Department Care Team Description 08/01/2011 Marketing Operations Assistant Report Medical Records [address] [place] [address] Chandana Bustamante MD Social History Tobacco Use [...] on filedocumented in this encounter Care Teams Therapeutic Specialist Relationship Specialty Start Date End Date Sylvia Rangel MD PCP - General 02 12/01/17 Lisa Moses MD PCP - General Pediatrics 12/02/17 documented as of this encounter
--- OUTSIDE RECORDS SUMMARY | 2025-03-18 08:54 | XMS_ITS | Clinical Summary ---
Author Organization [facility] Address [address] [place] [address] [place] [phone] Phone Care Team Providers Care Insurance Coder Name Role Phone Unknown, Unknown Primary Care [...] [place] [facility] Care Teams Insurance Coder Relationship Specialty Start Date End Date Unknown, Unknown, PCP - General 03/16/17 Additional Source Comments The information contained in this document represents components of the legal health record. It is not the complete legal health record.[facility]
[2025-03-18 08:57] LABS: MANUAL DIFF FLAG NO
[2025-03-18 09:01] LABS: Hematocrit 37.5 % (37.0-47.0); Hemoglobin 12.2 g/dl (12.0-16.0); Imm Gran Abs Auto 0.03 X10*3/uL (0.00-0.03); Imm Gran Pct Auto 0.3 % (0.0-0.4); Lymphocytes Absolute Auto 2.2 X10*3/uL (1.2-4.9); Mean Corpuscular HGB Conc 32.5 g/dl (31.0-35.0); Mean Corpuscular Hemoglobin 26.8 pg (27.0-33.0); Mean Corpuscular Volume 82.2 fL (80.0-98.0); NRBC Abs Auto 0.000 X10*3/uL (0.0-0.012); NRBC Pct Auto 0.0 /100WBC (0.0-0.2); Platelet Count 417 X10*3/uL (160-400); Red Blood Count 4.56 X10*6/uL (4.20-5.50); White Blood Count 8.8 X10*3/uL (4.8-10.8)
== END 2025-03-18 08:44 | disposition home or self-care (01) ==
LOC: HO.LABR 08:43
PROVIDERS: PCP Internal Medicine; Visit Provider Psychiatry & Neurology Psychiatry
DX: Z79.899 Other long term (current) drug therapy (principal)
CPT/HCPCS: 36415; 85025

== ENCOUNTER 2025-04-15 08:58 | Outpatient (REF) | payer OTHER, SELFPAY ==
[2025-04-15 09:11] LABS: MANUAL DIFF FLAG NO
[2025-04-15 09:48] LABS: Hematocrit 39.3 % (37.0-47.0); Hemoglobin 12.5 g/dl (12.0-16.0); Imm Gran Abs Auto 0.03 X10*3/uL (0.00-0.03); Imm Gran Pct Auto 0.3 % (0.0-0.4); Lymphocytes Absolute Auto 2.1 X10*3/uL (1.2-4.9); Mean Corpuscular HGB Conc 31.8 g/dl (31.0-35.0); Mean Corpuscular Hemoglobin 26.4 pg (27.0-33.0); Mean Corpuscular Volume 83.1 fL (80.0-98.0); NRBC Abs Auto 0.000 X10*3/uL (0.0-0.012); NRBC Pct Auto 0.0 /100WBC (0.0-0.2); Platelet Count 445 X10*3/uL (160-400); Red Blood Count 4.73 X10*6/uL (4.20-5.50); White Blood Count 9.5 X10*3/uL (4.8-10.8)
--- OUTSIDE RECORDS SUMMARY | 2025-04-15 09:48 | XMS_ITS | Clinical Summary ---
Author Organization [facility] Address [address] [place] [address] [place] [phone] Phone Care Team Providers Care Bookstore Clerk Name Role Phone Unknown, Unknown Primary Care [...] [place] [facility] Care Teams Bookstore Clerk Relationship Specialty Start Date End Date Unknown, Unknown, PCP - General 03/16/17 Additional Source Comments The information contained in this document represents components of the legal health record. It is not the complete legal health record.[facility]
== END 2025-04-15 08:59 | disposition home or self-care (01) ==
LOC: HO.LABR 08:58
PROVIDERS: PCP Internal Medicine; Visit Provider Psychiatry & Neurology Psychiatry
DX: Z79.899 Other long term (current) drug therapy (principal)
CPT/HCPCS: 36415; 85025

== ENCOUNTER 2025-05-13 11:01 | Outpatient (REF) | payer OTHER, SELFPAY ==
[2025-05-13 11:25] LABS: MANUAL DIFF FLAG NO
[2025-05-13 11:51] LABS: Hematocrit 38.4 % (37.0-47.0); Hemoglobin 12.5 g/dl (12.0-16.0); Imm Gran Abs Auto 0.06 X10*3/uL (0.00-0.03); Imm Gran Pct Auto 0.6 % (0.0-0.4); Lymphocytes Absolute Auto 2.2 X10*3/uL (1.2-4.9); Mean Corpuscular HGB Conc 32.6 g/dl (31.0-35.0); Mean Corpuscular Hemoglobin 26.7 pg (27.0-33.0); Mean Corpuscular Volume 82.1 fL (80.0-98.0); NRBC Abs Auto 0.000 X10*3/uL (0.0-0.012); NRBC Pct Auto 0.0 /100WBC (0.0-0.2); Platelet Count 409 X10*3/uL (160-400); Red Blood Count 4.68 X10*6/uL (4.20-5.50); White Blood Count 9.4 X10*3/uL (4.8-10.8)
--- OUTSIDE RECORDS SUMMARY | 2025-05-13 15:16 | XMS_ITS | Clinical Summary ---
Author Organization [facility] Address [address] [place] [address] Care Team Providers Care Consulting Marine Engineer Name Role Phone Unknown, Pcp MD Primary [...] Plan of Treatment Not on file Insurance [facility] Care Teams Consulting Marine Engineer Relationship Specialty Start Date End Date Unknown, Pcp, Unknown Address Unknown [place] [id number] PCP - General 01/15/15
== END 2025-05-13 11:02 | disposition home or self-care (01) ==
LOC: HO.LABR 11:01
PROVIDERS: PCP Internal Medicine; Visit Provider Psychiatry & Neurology Psychiatry
DX: Z79.899 Other long term (current) drug therapy (principal)
CPT/HCPCS: 36415; 85025

== ENCOUNTER 2025-06-09 12:36 | Outpatient (REF) | payer OTHER, SELFPAY ==
[2025-06-09 12:58] LABS: MANUAL DIFF FLAG NO
[2025-06-09 13:43] LABS: Hematocrit 36.3 % (37.0-47.0); Hemoglobin 11.7 g/dl (12.0-16.0); Imm Gran Abs Auto 0.05 X10*3/uL (0.00-0.03); Imm Gran Pct Auto 0.5 % (0.0-0.4); Lymphocytes Absolute Auto 2.2 X10*3/uL (1.2-4.9); Mean Corpuscular HGB Conc 32.2 g/dl (31.0-35.0); Mean Corpuscular Hemoglobin 26.5 pg (27.0-33.0); Mean Corpuscular Volume 82.3 fL (80.0-98.0); NRBC Abs Auto 0.000 X10*3/uL (0.0-0.012); NRBC Pct Auto 0.0 /100WBC (0.0-0.2); Platelet Count 435 X10*3/uL (160-400); Red Blood Count 4.41 X10*6/uL (4.20-5.50); White Blood Count 9.9 X10*3/uL (4.8-10.8)
--- OUTSIDE RECORDS SUMMARY | 2025-06-09 17:25 | XMS_ITS | Clinical Summary ---
Author Organization [facility] Address [address] [place] [phone] Phone Care Team Providers Care Carpenter Labor Supervisor Name Role Phone Unknown, Unknown Primary Care [...] SMEAR 11/01/2023 Adult Td,Tdap Booster 02/05/2024 02/04/2014 INFLUENZA VACCINE (#1) 2025 , 06/10/2020, 05/18/2019, Additional history exists COVID-19 VACCINE ( season) 2025 02/16/2021, 01/26/2021 HIB VACCINES Completed 02/03/2004, 01/17, [...] [place] [facility] [place] Care Teams Carpenter Labor Supervisor Relationship Specialty Start Date End Date Unknown, Unknown, PCP - General 03/16/17 Additional Source Comments The information contained in this document represents components of the legal health record. It is not the complete legal health record.[facility]
== END 2025-06-09 12:37 | disposition home or self-care (01) ==
LOC: HO.LABR 12:36
PROVIDERS: PCP Internal Medicine; Visit Provider Psychiatry & Neurology Psychiatry
DX: Z79.899 Other long term (current) drug therapy (principal)
CPT/HCPCS: 36415; 85025

== ENCOUNTER 2025-07-08 11:47 | Outpatient (REF) | payer OTHER, SELFPAY ==
[2025-07-08 11:58] LABS: MANUAL DIFF FLAG NO
[2025-07-08 12:32] LABS: Hematocrit 41.2 % (37.0-47.0); Hemoglobin 13.1 g/dl (12.0-16.0); Imm Gran Abs Auto 0.04 X10*3/uL (0.00-0.03); Imm Gran Pct Auto 0.4 % (0.0-0.4); Lymphocytes Absolute Auto 2.4 X10*3/uL (1.2-4.9); Mean Corpuscular HGB Conc 31.8 g/dl (31.0-35.0); Mean Corpuscular Hemoglobin 26.3 pg (27.0-33.0); Mean Corpuscular Volume 82.6 fL (80.0-98.0); NRBC Abs Auto 0.000 X10*3/uL (0.0-0.012); NRBC Pct Auto 0.0 /100WBC (0.0-0.2); Platelet Count 454 X10*3/uL (160-400); Red Blood Count 4.99 X10*6/uL (4.20-5.50); White Blood Count 11.0 X10*3/uL (4.8-10.8)
== END 2025-07-08 11:48 | disposition home or self-care (01) ==
LOC: HO.LABR 11:47
PROVIDERS: PCP Internal Medicine; Visit Provider Psychiatry & Neurology Psychiatry
DX: Z79.899 Other long term (current) drug therapy (principal)
CPT/HCPCS: 36415; 85025

== ENCOUNTER 2025-08-05 11:42 | Outpatient (REF) | payer OTHER, SELFPAY ==
[2025-08-05 11:59] LABS: MANUAL DIFF FLAG NO
[2025-08-05 12:08] LABS: Hematocrit 40.1 % (37.0-47.0); Hemoglobin 12.7 g/dl (12.0-16.0); Imm Gran Abs Auto 0.03 X10*3/uL (0.00-0.03); Imm Gran Pct Auto 0.3 % (0.0-0.4); Lymphocytes Absolute Auto 2.2 X10*3/uL (1.2-4.9); Mean Corpuscular HGB Conc 31.7 g/dl (31.0-35.0); Mean Corpuscular Hemoglobin 26.3 pg (27.0-33.0); Mean Corpuscular Volume 83.2 fL (80.0-98.0); NRBC Abs Auto 0.000 X10*3/uL (0.0-0.012); NRBC Pct Auto 0.0 /100WBC (0.0-0.2); Platelet Count 436 X10*3/uL (160-400); Red Blood Count 4.82 X10*6/uL (4.20-5.50); White Blood Count 9.9 X10*3/uL (4.8-10.8)
--- OUTSIDE RECORDS SUMMARY | 2025-08-05 15:29 | XMS_ITS | Clinical Summary ---
Author Organization [facility] Address [address] [place] [address] Care Team Providers Care Casing Runner Name Role Phone Unknown, Pcp MD Primary [...] Plan of Treatment Not on file Insurance [facility] Care Teams Casing Runner Relationship Specialty Start Date End Date Unknown, Pcp, Unknown Address Unknown [place] [id number] PCP - General 01/15/15
--- OUTSIDE RECORDS SUMMARY | 2025-08-05 15:29 | XMS_ITS | Clinical Summary ---
Author Organization [facility] Address [address] [place] [phone] Phone Care Team Providers Care President [place] Name Role Phone Unknown, Unknown Primary Care [...] [place] Care Teams President [place] Relationship Specialty Start Date End Date Unknown, Unknown, PCP - General 03/16/17 Additional Source Comments The information contained in this document represents components of the legal health record. It is not the complete legal health record.[facility]
== END 2025-08-05 11:43 | disposition home or self-care (01) ==
LOC: HO.LABR 11:42
PROVIDERS: PCP Internal Medicine; Visit Provider Psychiatry & Neurology Psychiatry
DX: Z79.899 Other long term (current) drug therapy (principal)
CPT/HCPCS: 36415; 85025